=== PATIENT | male | born 1955 | race Caucasian/White ===

== ENCOUNTER → 2017-03-29 | Outpatient (REF) | payer MEDICARE, OTHER, SELFPAY | LOC: LAB 09:11 | PROVIDERS: Visit Provider Family Medicine | DX: E11.9 Type 2 diabetes mellitus without complications (principal) | CPT/HCPCS: 36415; 83036 ==

== ENCOUNTER → 2017-07-11 09:27 | Outpatient (CLI) | payer MEDICARE, OTHER, SELFPAY | PROVIDERS: PCP Family Medicine; Visit Provider Internal Medicine | DX: E11.621 Type 2 diabetes mellitus with foot ulcer (principal); L97.512 Non-pressure chronic ulcer of other part of right foot with fat layer exposed | CPT/HCPCS: 11042 ==

== ENCOUNTER → 2017-07-18 09:41 | Outpatient (CLI) | payer MEDICARE, OTHER, SELFPAY | PROVIDERS: PCP Family Medicine; Visit Provider Internal Medicine | DX: E11.621 Type 2 diabetes mellitus with foot ulcer (principal); L97.512 Non-pressure chronic ulcer of other part of right foot with fat layer exposed | CPT/HCPCS: 11042 ==

== ENCOUNTER → 2017-07-25 09:24 | Outpatient (CLI) | payer MEDICARE, OTHER, SELFPAY | PROVIDERS: PCP Family Medicine; Visit Provider Internal Medicine | DX: E11.621 Type 2 diabetes mellitus with foot ulcer (principal); L97.512 Non-pressure chronic ulcer of other part of right foot with fat layer exposed; L84 Corns and callosities | CPT/HCPCS: 11042 ==

== ENCOUNTER → 2017-07-28 09:22 | Outpatient (CLI) | payer MEDICARE, OTHER, SELFPAY | PROVIDERS: PCP Family Medicine; Visit Provider Internal Medicine | DX: E11.621 Type 2 diabetes mellitus with foot ulcer (principal); L97.512 Non-pressure chronic ulcer of other part of right foot with fat layer exposed; L84 Corns and callosities | CPT/HCPCS: 11042 ==

== ENCOUNTER → 2017-08-01 14:25 | Outpatient (CLI) | payer MEDICARE, OTHER, SELFPAY ==
--- NOTE | 2017-08-01 | OV.WND_ITS ---
Progress Note Details Patient Name: Josue Mesa Patient Number: [id number] PatientPatientDate: 08/01/2017 Clinician: Fay Moncada Clinician Cosigner: Digna Diallo Physician / Assistant Professor Of Life Sciences: Stephen Nice SUBJECTIVE Chief Complaint This information was obtained from the patient Diabetic ulcer to right plantar foot. Allergies Augmentin (Severity: Mild, Reaction: nausea) HPI This information was obtained from the patient 08/01/17. Seen by Dr. Nice. The patient does not report increased drainage associated with the chronic right plantar foot diabetic ulcer since his last visit and he's offloading appropriately as recommended. 07/28/17. Seen by Dr. Nice. The patient does not report increased drainage associated with the chronic right plantar foot diabetic ulcer since his last visit and he's offloading appropriately as recommended. We've increased his visits to twice weekly due to the very heavy callus formation that's contributing to the refractory nature of the ulcer. 07/25/17. Seen by Dr. Nice. The patient does not report increased drainage associated with the chronic right plantar foot diabetic ulcer since his last visit and he's offloading appropriately as recommended. Kerasal is not being applied to the periulcer callus and his visits have been decreased to once weekly over the past few weeks while the ulcer has been improving. 07/18/17. Seen by Dr. Nice. The patient does not report increased drainage associated with the chronic right plantar foot diabetic ulcer since his last visit and he's offloading appropriately as recommended. 07/11/17.Seen by Dr. Nice. The patient has been wearing his offloading shoe and using a knee scooter as recommended and does not report significant drainage associated with the chronic right plantar foot diabetic ulcer since his last visit. 07/04/17. Seen by Dr. Nice. The patient has been wearing his offloading shoe as recommended and does not report significant drainage associated with the chronic right plantar foot diabetic ulcer since his last visit. 06/30/17. Seen by Dr. Nice. The patient has been wearing his offloading shoe as recommended and does not report significant drainage associated with the chronic right plantar foot diabetic ulcer since his last visit. 06/27/2017. Seen by Dr. Nice. The patient has been wearing his offloading shoe as recommended and does not report significant drainage associated with the chronic right plantar foot diabetic ulcer since his last visit. His blood sugars are also mostly below 100 now and he's using his knee scooter as well to further optimize offloading. 06/23/2017. Seen by Dr. Nice. The patient does not report pain nor increased drainage associated with the chronic right plantar foot diabetic ulcer since his last visit. He is wearing his offloading shoe as recommended now and his blood sugar control has improved with some below 200. 06/20/2017. Some by Dr. Nice. The patient is not report increased drainage position with chronic right plantar foot diabetic ulcer since last visit. He is now clindamycin for the resistant Staphylococcus haemolyticus positive culture that was taken to the last visit. His blood sugars continued to be elevated and or over 300 earlier this morning despite having his Lantus dose increased recently. He is also wearing his diabetic shoes but not an offloading surgical shoe as I have been recommending. 06/16/17. Seen by Dr. Nice. The patient does not report increased drainage associated with chronic right plantar foot diabetic ulcers since his last visit. His recent wound culture grew a resistant coag negative staph organism. He also met with his primary care provider, Dr. rGeen, to increase his dosing of Lantus and plans to work with him on dietary measures to help gain better control of his elevated blood sugars. 06/13/17. Seen by Dr. Nice. The patient's blood sugars again are over 300 today and his appointment with his primary care provider to address this. He does not report any acute changes regarding the chronic right plantar foot diabetic ulcer and is using his knee scooter to help facilitate offloading as much as possible. 06/09/17. Seen by Dr. Nice. The patient does not report significant drainage associated with the chronic right plantar foot diabetic ulcer since his last visit. 06/06/17. Seen by Dr. Nice. The patient does not report significant drainage associated with the chronic right plantar foot diabetic ulcer since his last visit and he's lost another 7 lbs since increasing his dose of Lasix due to abnormal weight gain and significant bilateral lower extremity edema. 06/02/17. Seen by Dr. Nice. The patient does not report significant drainage associated with the chronic right plantar foot diabetic ulcer since his last visit. His increase his dose of Lasix and has lost 7 pounds over the past 3 days. This is been done due to the significant increase in leg swelling over the past 2 weeks. 05/30/17. Seen by Dr. Nice. The patient does not report increased drainage associated with chronic right plantar foot diabetic ulcer since his last visit however he does feel that the right foot and leg are swelling considerably over the past few days. We note a 4 pound weight gain since his last visit on Monday and he states is taking his diuretic as prescribed. 05/26/17. Seen by Dr. Nice. The patient does not report increased drainage associated with chronic right plantar foot diabetic ulcers since his last visit. His culture grew a somewhat resistant coag negative staph and he is not currently on antibiotics. 05/23/17. Seen by Dr. Nice. Staff reports some increased drainage on his dressings covering the chronic right plantar foot diabetic ulcer today. His blood sugar is again over 300 and he states he is eating rice and potatoes trying to cut back. He continues offload with his knee scooter as recommended and does not report pain or any other acute ulcer related issues today. 05/19/17. Seen by Dr. Nice. The patient does not report increased pain or drainage associated with chronic right plantar foot diabetic ulcer since his last visit. He is using his knee scooter as recommended and has had significant problems with heavy callus at the site due to a severe right first toe valgus deformity. He is now attending clinic twice weekly for debridement of the ulcer and complicating callous. 05/16/17. Seen by Dr. Nice. The patient does not report increased drainage or pain associated with chronic right plantar foot diabetic ulcer since his last visit. Of note, the patient's blood sugar as 271 today and his A1c was 9.8 in March. 05/12/17. Seen by Dr. Nice. The patient does not report increased pain or drainage associated with chronic right plantar foot diabetic ulcer since his last visit. He is using his knee scooter to help offload the site which is particularly important based on patient's morbid obesity coupled with his severe first MTPJ valgus deformity. 05/09/17. Seen by Dr. Nice. The patient does not report increased drainage or pain associated with the chronic right plantar foot diabetic ulcer since his last visit. He states his blood sugars continue to be above 200 consistently although are improving with compliance to a lower carbohydrate type diet. He was started on metformin about a month ago he complains of some intermittent upper extremity weakness since then and will be discussing this with his primary care provider. He is also awaiting his new diabetic shoes that are being adjusted to help accommodate for his severe right first toe valgus deformity. 05/02/17. Seen by Jean-Pierre Pinto PA-C. The patient reports stable drainage from his right 1st toe ulcer and blood sugars continue to be above goal. 04/25/17. Seen by Jean-Pierre Pinto PA-C. The patient reports his blood sugars have been above 150 this week. He does not report increased drainage from his right 1st toe diabetic ulcer. 04/18/17. Seen by Dr. Nice. The patient does not report increased drainage associated the chronic right first toe diabetic ulcers since his last visit. 04/11/17. Seen by Jean-Pierre Pinto PA-C. The patient reports he is developing more calloused areas on his feet and is concerned about new ulcers occurring. His chronic 1st toe diabetic ulcer has been stable. 04/04/17. Seen by Jean-Pierre Pinto PA-C. The patient reports he has not been able to get his blood sugars below 150. Drainage is reportedly decreased from his diabetic foot ulcer. 03/30/17. Seen by Jean-Pierre Pinto PA-C. The patient reports continued high blood sugars, all above 150. Drainage from his ulcer is not increased. 03/23/17. s Seen by Jean-Pierre Pinto PA-C. The patient reports blood sugars above 150 again this week. He is concerned that something must be going on with an infection as he believes his diet has not changed and thus his sugars should be lower. His wound has had stable drainage. 03/15/17. Seen by Jean-Pierre Pinto PA-C. The patient reports he has had some blood sugars above 150 this week. He reports no increase in drainage from his right 1st toe diabetic ulcer. 03/08/17. Seen by Dr. Nice. The patient was discharged from the hospital recently following treatment for cellulitis associated with the chronic right first toe diabetic ulcer. He grew MRSA from the wound culture and was treated with IV vancomycin and is now on Bactrim. He does not report pain nor significant drainage associated with the ulcer nor side effects from antibiotics. 02/23/17. Seen by Dr. Nice. The patient does not report increased drainage associated the chronic right first toe diabetic ulcers since his last visit. The patient also states that he is more active over the holidays and was unable to use his knee scooter at times while walking outside due to safety concerns. 02/08/17. Seen by Dr. Nice. The patient does not report increased drainage associated the chronic right first toe diabetic ulcers since his last visit. He states he is using his offloading shoe when at home and a knee scooter went out. 02/01/17. Seen by Dr. Nice. The patient does not report increasing pain or drainage associated with chronic right first toe diabetic ulcer since his last visit. 01/25/17. Seen by Dr. Nice. The patient does not report increasing pain or drainage associated with chronic right first toe diabetic ulcer since his last visit. 01/18/17. Seen by Dr. Nice. The patient does not report increasing pain or drainage associated with chronic right first toe diabetic ulcer since his last visit. Of note, the patient's blood sugar is over 260 again today and he admits that it's been significantly elevated for a number of weeks. He has an appointment with his primary care provider to discuss this next week. 01/11/17. Seen by Dr. Nice. The patient does not report increasing pain or drainage associated with chronic right first toe diabetic ulcer since his last visit. He states his blood sugars have been running high recently and he is going to follow-up with his primary care provider in the near future to address this. 01/04/17. Seen by Dr. Nice. The patient does not report increased drainage associated with chronic right first foot diabetic ulcers since his last visit. He's also been applying Kersal to the periulcer as recommended. 12/28/16. Seen by Dr. Nice. The patient does not report increased drainage associated with chronic right first foot diabetic ulcers since his last visit. 12/22/16. Seen by Dr. Nice. The patient does not report increased drainage associated with chronic right first foot diabetic ulcers since his last visit. He's not been applying Kersal to the periulcer callus and does not appear to be using his knee scooter at all times to offload the ulcer. 12/15/16. Seen by Jean-Pierre Pinto PA-C. The patient reports he continues to have blood sugars above 150 this week. He recently saw his PCP, they did not alter his diabetic care plan. His visit was a follow up for an ER visit for chest pain which was negative for ME and was thought to be epigastric in origin. His diabetic ulcer of the right foot has not had increased drainage. 12/06/16. Seen by Jean-Pierre Pinto PA-C. The patient reports that he has found his knee scooter and plans to start using it today. He also reports most of his blood sugars have been above 150. Drainage from his ulcer has been stable. 11/25/16. Seen by Dr. Nice. The patient does not report increased drainage associated with chronic right first foot diabetic ulcers since his last visit. He is now on antibiotics for wound infection and does not report adverse side effects. Of note, he is not yet using a knee scooter nor offloading shoe as we recommended last week. 11/18/16. Seen by Dr. Nice. The patient returns to our clinic and presents with recurrence of a right first MTPJ plantar diabetic ulcer. He states it started a couple weeks ago when he was attempting to remove overlying callus at home. He does not report significant drainage or pain associated with the ulcer and is not currently on antibiotics. He also states his recent A1c was 7.8. His blood sugar in clinic today is 250. 01/11/16 Seen by Jean-Pierre Pinto PA-C. The patient reports no drainage from his chronic right 1st MTPJ joint since his last dressing change. 01/04/16 Seen by Jean-Pierre Pinto PA-C. The patient reports minimal drainage from his chronic right 1st MTPJ ulcer. He has recently seen his PCP and his A1c was 7.7. His lower extremity edema, abnormal weight gain and kidney failure are stable with his diuretics recently being adjusted. 12/28/15. Seen by Dr. Nice. The patient does not report significant drainage associated with the chronic right 1st MTPJ diabetic ulcer since his last visit however he does complain of increasing shortness of breath, fatigue, and an 18lb weight gain over the past week despite taking his diuretics as recommended. He does not report chest pain or cough and his blood sugars remain relatively well controlled with most below 150. 12/16/15. Seen by Dr. Nice. The patient does not report significant drainage associated with the chronic right 1st MTPJ diabetic ulcer since his last visit. He's applying kerasal to the surrounding callus as recommended and offloading nearly at all times using his knee scooter. 12/07/15 Seen by Jean-Pierre Pinto PA-C. The patient reports compliance with his new offloading brace and shoe and has seen minimal drainage from his diabetic foot ulcer since his last visit. 11/30/15. Seen by Dr. Nice. The patient does not report significant drainage associated with the chronic right 1st MTPJ diabetic ulcer since his last visit and he's wearing a combined AFO / diabetic shoe system that he feels may be better offloading the ulcer. 11/23/15 Seen by Jean-Pierre Pinto PA-C. The patient reports that he is wearing his new diabetic shoes and inserts. He is continuing physical therapy for gait training and reports continued difficulty with stairs and occasional bouts of dizziness. He reports stable drainage from his chronic right foot diabetic ulcer. 11/16/15 Seen by Jean-Pierre Pinto PA-C. The patient reports stable drainage from his right foot diabetic ulcer. He also reports that his diabetic shoes and inserts are quite old and worn out. He is ambulating with is 4 wheeled walker and is working with PT for gait training. 11/09/15 Seen by Jean-Pierre Pinto PA-C. The patient reports that he is still using a 4 wheeled walker instead of a 4 footed walker. PT is working with him to improve his gait and balance. Drainage from his right foot ulcer has been stable. 11/02/15 Seen by Jean-Pierre Pinto PA-C. The patient reports no increase in drainage from his chronic diabetic foot ulcer. He has had multiple blood sugars above 150 this week. 10/29/15. Seen by Dr. Nice. The patient was recently discharged from [facility] following treatment of sepsis thought to possibly be related to his chronic right 1st MTPJ diabetic ulcer that grew Enterococcus just prior to his admission. He now feels generally weak , has lost 18 lbs following diuresis, and is residing at home where he's minimizing his weight bearing on the right foot. He does not report significant drainage from the ulcer nor pain and states his blood sugars remain mostly around 150. He also continues on levofloxacin and does not report adverse side effects. 10/14/15. Seen by Dr. Nice. The patient report persistent bloody drainage from the chronic right 1st MTPJ diabetic ulcer and he feels the callus has increased significantly since it was last debrided 2 week ago. He does not report fevers or feeling unwell and states his blood sugars are well controlled with most below 150. He's using his AFO when walking nearly at all times to facilitate offloading the significant right 1st MTPJ valgus deformity. 09/24/15 Seen by Jean-Pierre Pinto PA-C. The patient reports that he is no ran out of lasix due to a mix up at the pharmacy and unavailability of his strength/dose of tablets. He continues trying to offload his ulcer with his wheeled walker and notes stable ulcer drainage. 09/17/15. Seen by Dr. Nice. The patient continues to report some bloody drainage from the chronic right 1st MTPJ diabetic ulcer and he's started reducing his activity and continues to use his knee scooter at home to offload the foot. 09/10/15. Seen by Dr. Nice. The patient states he was more active over the past week and notices increased bloody drainage associated with chronic right first MTPJ diabetic foot ulcer. He continues to wear his AFO and states his blood sugars are mostly below 150. 09/03/15. Seen by Dr. Nice. The patient does not report significant drainage associated with the chronic right first MTPJ diabetic ulcer over the past week. He does feel that the callus smaller than on previous visits and is wearing his AFO at all times. Of note, he 's now in doxycycline to treat the recent coag negative Staph cultured from the ulcer at his last visit. 08/27/[address] Nice. The patient reports increase bloody drainage associated with the chronic right foot 1st MTPJ diabetic ulcer and he feels his activity has increased due to physical therapy and increased mobility over the past week. He does not report pain at the ulcer site, fevers, or feeling unwell in general. 08/20/[address] Nice. The patient does not report significant drainage associated with the chronic right foot 1st MTPJ diabetic ulcer over the past week and he's using a knee scooter as much as possible when mobilizing to offload the foot. His blood sugars also remain relatively well controlled with most below 150. 08/13/[address] Nice. The patient does not report significant drainage associated with the chronic right foot diabetic ulcer over the past week and he's offloading using a knee scooter as recommended. His blood sugars remain relatively well controlled with most below 150. 08/06/[address] Nice. The patient reports recurrence of some drainage from the chronic right foot diabetic ulcer over the past few days and states he's been more active with physical therapy. His blood sugars remain well controlled with most below 150 and he's wearing his AFO when away from the house and using a knee scooter most of the time while at home to facilitate offloading. He's also applying Kerasal to the callus in the periwound area as recommended. 07/23/[address] Nice. The patient does not report drainage from the chronic right 1st MTPJ diabetic ulcer over the past week and he's using his new AFO and knee scooter to offload the foot. 07/16/[address] Nice. The patient does not report pain or drainage from the chronic right 1st MTPJ diabetic ulcer and he's wearing his newer AFO while offloading with a knee scooter most of the time. 07/09/[address] Nice. The patient does not report drainage or pain associated with his chronic right foot 1st MTPJ diabetic ulcer and he's been offloading by using a knee scooter when mobilizing. His central office mechanic is present today as well to discuss possible adjustments to his AFO with the goal of reducing callus formation that's in part caused by his significant right 1st toe valgus deformity. He also states his blood sugars remain well controlled below 150 consistently. 07/03/[address] Nice. The patient does not report significant drainage from the chronic right foot diabetic ulcer and he's offloading by using his knee scooter. His blood sugars also remain relatively well controlled around 150 consistently. 06/26/[address] Nice. The patient report some continued bloody drainage from the chronic right 1st MTPJ diabetic ulcer however he does not report associated pain , fevers or feeling unwell. His blood sugars remain consistently below 150 and he's using his walker and knee scooter for offloading as recommended. He's also been actively working with his central office mechanic in hopes of better offloading the ulcer and address his significant callus formation and left 1st MTPJ valgus deformity. 06/19/[address] Nice. The patient does not report pain associated with his chronic right 1st MTPJ diabetic ulcer however he states some bloody drainage persists on the dressings. He does not report fevers or feeling unwell and states his blood sugars are well controlled below 150 consistently and he's using a knee scooter and walker to offload the ulcer when mobilizing. He also does not report pain or drainage associated with the left 2nd toe wound. 06/11/[address] Nice. The patient was recently discharged from [facility] following a fall at home that resulted in a broken rib. Regarding his chronic right 1st MTPJ diabetic ulcer he does not report significant drainage and has been offloading through bed rest and using a knee scooter while at home. His blood sugars also remain well controlled with most below 150. He also reports a new wound on the dorsum of the left 2nd toe that he believes occurred during his fall. He does not report associated pain or significant drainage. 05/28/[address] Nice. The patient reports some increased bloody drainage from the chronic right 1st MTPJ diabetic foot ulcer over the weekend associated with a new 'soft' area along the distal margin. He's been more active the past the past few days but states he's using his knee scooter to offload at all times. His blood sugars also remain well controlled with most around 120 and he's no longer on antibiotics. He also continues to wear his old AFO but states there was a recent adjustment of a cut out lined with 'soft' plastic in the area of the ulcer. 05/21/[address] Nice. The patient report less drainage from the chronic right foot 1st MTPJ diabetic ulcer over the past week. He's completed his course of doxycycline and he continues on fluconazole for the recent Alma Delia positive wound culture. He's also reverted back to using his previous AFO while his newer one is adjusted to try to address the recent significant increase in callus formation that's occurred. His blood sugars also remain well controlled under 150 consistently and his recent episodes of hypoglycemia has resolved with an adjustment of his insulin regimen. 05/14/[address] Nice. The patient reports less drainage on the dressings covering the chronic right 1st MTPJ diabetic ulcer since starting doxycycline for a coag negative Staph wound culture along with fluconazole for the alma delia positive culture. His blood sugars remain well controlled below 120 and his insulin has been decreased due to the recent episodes of hypoglycemia. His diuretic has also been decreased as he's lost considerable water weight over the past month. 05/07/[address] Nice. The patient continues to report modest bloody drainage on the dressing covering the chronic right 1st MTPJ diabetic ulcer and he continues to limit his walking but has not been using a knee scooter or walker around the house to facilitate offloading. His blood sugars remain well controlled mostly below 150. 04/30/[address] Nice. The patient continues to report bloody drainage on his right foot diabetic ulcer dressing and he's feeling a bit unwell in general without reporting specific symptoms. He also continues to have intermittent low blood sugars in the 50-60' s and has not discussed this issue with his PCP recently. He's wearing his AFO daily but admits to having difficulty using his walker at all times due to limited space in his new apartment. 04/27/15 Seen by Jean-Pierre Pinto PA-C. The patient reports nonspecific malaise for the past few days. Last night, he reports feeling to tired, weak and shaky to watch TV and went to bed very early. His malaise has been increasing over the past 1-2 weeks and he has frequently been monitoring his blood sugar. His blood sugars are lower than normal lately but never below 100. He has been reducing his insulin dosing in the past 2 weeks to compensate for the lower numbers. He continues to loose weight while continuing to take Lasix and metolazone. 04/23/[address] Nice. The staff and patient continue to report at least moderate serosanquinous drainage from the chronic right 1st MTPJ diabetic ulcer. His blood sugars have been well controlled over the past week with most below 150. He does report being more active than usual while he's been moving to his new home and he also states he continues to loose weight following a recent increase in his diruetics. His wound culture from the last visit reported heavy Diptheroids and he's not currently on antibiotics. 04/20/15 Seen by Jean-Pierre Pinto PA-C. The patient reports that he has moved house and has been on his feet much more so as a consequence. He reports increased drainage from his right plantar foot diabetic ulcer. In addition he believes he struck it against a hard surface when moving. He has had no significant pain with weightbearing but is insensate in this area. 04/15/[address] Nice. The patient reports continued weight loss, and decreasing leg swelling, since starting metolazone totaling about 20 lbs. He also feels the chronic right 1st MTPJ diabetic ulcer has been draining increasing amounts of sanguinous fluid. His blood sugars remain well controlled with most below 120 and he does not report fever or feeling unwell. 03/25/[address] Nice. The patient states he walked a considerable amount yesterday and now reports some bleeding from the chronic right 1st MTPJ diabetic foot ulcer. He also continues to report increased weight gain and now some shortness of breath when walking short distances. He has a low grade fever today but does not report a cough or feeling unwell otherwise. 03/11/2015 Seen by Jean-Pierre Pinto PA-C. The patient's weight has increased 10 lbs in the past week. He reports increased shortness of breath with exertion. He denies chest pain, jaw, neck, shoulder pain or shortness of breath at rest. He has been compliant with his diuretics. His ulcer drainage has been stable. 03/04/2015 Seen by Jean-Pierre Pinto PA-C. The patient is wearing his newly adjusted AFO and reports an increase in walking since last visit. He was unaware that his temperature was elevated and reports no URI symptoms such as cough or sore throat. 02/24/2015 Seen by Jean-Pierre Pinto PA-C. The patient believes his ulcer has now been draining more despite trying to offload the ulcer. 02/11/[address] Nice. The patient reports less drainage from the chronic right 1st toe diabetic ulcer and he's still waiting for approval for his new AFO. 02/04/[address] Nice. The patient feels the drainage from the right 1st MTPJ ulcer has decreased since last week and he's scheduled to see Dr. Solitario tomorrow to review his foot deformity and recurrent callus formation at the site of the ulcer. 01/30/[address] Nice. The patient returns to clinic and reports recurrence of the recently healed right 1st MTPJ diabetic foot ulcer with new moderate drainage and significant callus formation. He's not yet re-established with Dr. Solitario, podiatry, due to insurance issues and is awaiting approval for an adjustment for his AFO. His blood sugars remain controlled below 150 mostly and he does not report pain in the foot or fevers. 01/12/[address] Nice. The patient does not report drainage from the right 1st toe MTPJ ulcer and he's scheduled to have his new AFO fitted this week. 01/05/[address] Nice. The patient does not report drainage associated with the right 1st MTPJ diabetic foot ulcer however he states he has had some intermittent, very brief 'shooting' pain at the site of the ulcer the past few days. His blood sugars also remain between 120 and 150 mostly. 12/29/[address] Nice. The patient does not report drainage from the chronic right 1st MTPJ diabetic foot ulcer and he offloads using a walker and surgical shoe at all times except for when he wears a slipper around his small apartment. 12/22/[address] Nice. The patient does not report significant drainage from the right 1st MTPJ diabetic foot ulcer and he states his blood sugars are still in the 150 range with some over 180. 12/10/[address] Nice. The patient does not report significant drainage from the right 1st MTPJ diabetic foot ulcer. 12/04/[address] Nice. The patient does not report any drainage from the chronic right 1st MTPJ diabetic foot ulcer and he's still waiting for insurance approval for a custom, articulating AFO. His blood sugars also remain relatively well controlled below 150 consistently. He also continues to apply Kerasal to the associated callus daily. 11/20/[address] Nice. The patient's been feeling unwell the past week and feels he may have lost as much as 10 lbs due to poor oral intake. Otherwise he does not report any new problems regarding his right 1st MTPJ plantar diabetic ulcer. 11/07/[address] Nice. The patient reports only scant drainage from the right plantar diabetic foot ulcer. He's been offloading as recommending with a walker and is awaiting a approval for an articulating AFO. His blood sugars remain mostly well controlled below 150. 10/31/14 Seen by Jean-Pierre Pinto PA-C. The patient feels he has reached another plateau with regard to his wound healing. His right plantar diabetic ulcer continues to drain and has not improved recently. He is wearing his brace and reports compliance with offloading. 10/21/[address] Nice. The patient reports only scant drainage from his right 1st plantar surface MTPJ diabetic foot ulcer. He continues to offload with a frame walker and his blood sugars are moderately well controlled with most below 150. 10/14/[address] Nice. The patient does not report significant drainage from the right 1st plantar MTPJ ulcer. Of note, when discussing his blood sugars he mentions he's on both 70/30 insulin as well as Lantus and he frequently has blood sugars in the 150-200 range. 10/07/[address] Nice. The patient reports some modest drainage from the right 1st MTPJ plantar ulcer but no pain, erythema, or swelling. His blood sugars are mostly below 150 and he offloads with his AFO. 09/30/14 Seen by Jean-Pierre Pinto PA-C. The patient reports continued compliance with his AFO and he is trying to offload. He is scheduled now with PT for gait training and knee strengthening. He reports his knee is still sore at times and he feels unstable at times when using his offloading devices and AFO. 09/23/[address] Nice. The patient reports only minimal drainage from the right plantar 1st MTPJ ulcer. 09/16/14 Seen by Jean-Pierre Pinto PA-C. The patient continues to use his AFO, offloading shoe, knee scooter and frame walker to offload his wound. 09/09/14 Seen by Jean-Pierre Pinto PA-C. The patient has been wearing his AFO and offloading shoe together, with the added padding as designed by Sahra BOYD of [facility]. He reports that he feels unsteady and that his knee has felt strained and he discontinued using the brace as he is concerned that he has, or will, re-injure his right knee. He also is having difficulty using his knee scooter with the brace. One year ago , while attempting to offload his foot he did injure his knee and required physical therapy to recover. 08/19/14 Seen by Jean-Pierre Pinto PA-C. The patient's weight is down 10 lbs from his previous visit. His twice daily naproxen has been discontinued by his PCP in an effort to reduce his lower extremity edema. 08/15/14 Seen by Jean-Pierre Pinto PA-C. The patient continues to have weight fluctuations and large amounts of weight gain in short periods of time despite increased diuretic usage. 08/04/14 Seen by Jean-Pierre Pinto PA-C. The patient has been taking his Levaquin and again reports to the clinic with a low grade fever. He reports nearly daily application of Kerasal and his weight and edema have been stable on a higher dose of diuretics. Blood sugars remain stable on his current diabetic medications. 07/21/14 Seen by Jean-Pierre Pinto PA-C. The patient does not report fever, chills or URI symptoms. His wound drainage has been stable. 07/16/[address] Nice. The patient reports persistent but minimal drainage from the right foot plantar ulcer and continues to offload with a walker at all times. His blood sugar are mostly below 150 with a few around 170 the past few days. 07/01/14 The patient reports that he has gained 8lbs in 8 days. Denies SOB. Does not report fever or chills. 06/23/[address] Nice. The patient continues to offload with a knee scooter and walker at all times. He does not report significant drainage from the right plantar foot ulcer. 06/20/[address] Nice. The patient has been offloading his right foot ulcer with a walker and reports less drainage over the past 2 days. He's now off of antibiotics and his blood sugars remain well controlled below 150. 06/11/[address] Nice. The patient reports persistent drainage from the right foot plantar 1st MTPJ ulcer and he completed his course of doxycycline which was started for a MRSA positive culture from the ulcer site. His blood sugars have also been a bit elevated above 150 recently. He does not report fever or chills however. 06/04/14 The patient reports difficulty in offloading his wound due to inability to use crutches due to poor balance. He find the wheelchair difficult to use and his knee scooter is not rated for his weight. He denies fever, chills or URI symptoms. 05/28/14 The patient's been attempting to offload with a knee scooter but is concerned it may not be appropriate or stable based on his weight. He does not report increased drainage from he right plantar 1st MTPJ ulcer and his blood sugars remain well controlled below 120. 05/21/14 The patient reports only minimal sanguinous drainage from his right foot plantar ulcer and has been offloading it by minimizing his walking. He's also completed a course of doxycycline that was given for a coag negative staph wound culture from the ulcer. He states his blood sugars are consistently below 120 and does not report hypoglycemia. 05/13/14 The patient reports minimal drainage from his right foot plantar ulcer. His recent wound culture from the site returned coag negative Staph and Diptheroids. 05/02/14 The patient reports less drainage from the right plantar foot ulcer and continues to off loading by minimizing walking and wearing a post-op shoe. 04/29/14 The patient continues to wear his surgical boot with the cutout for his right foot plantar diabetic ulcer. He reports no increase in drainage. 04/25/14 The patient reports minimal bloody drainage on the right foot plantar ulcer dressing that was placed yesterday. He does not report any drainage from the previously healed lateral foot ulcer. His edema in the right leg persists despite wearing compression stockings daily and his blood sugars remain well controlled below 120 with his last A1c approx 2 months ago at 7.4. 04/22/14 The patient reports no increase in drainage from his wounds today. He has been faithfully wearing his orthopedic boot with the cut-out area around his 5th MT ulcer. 04/15/14 The patient reports no increase in drainage from his wounds today. He reminds me that a TCC was the cause of his 5th MT ulcer and he is not excited about trying a TCC again. He is interested in HBOT if it will be beneficial to his wounds. 04/09/14 The patient reports increased drainage from his right 5th MT ulcer and feels his surgical boot he's been wearing for off loading may have caused pressure to the area. His blood sugars have improved and he also reports a 5 lb weight loss after doubling his dose of lasix over the past week. Of note, he did not liaise with his PCP prior to doing this. 04/04/14 The patient states that he was walking a bit more than usual yesterday but notes some sanguinous drainage on his plantar 1st MTPJ dressing for the past few days. He's also put on 7 lbs in the past week and feels his legs are more swollen than usual. He does not report chest pain, shortness of breath, or orthopnea. His blood sugars are also up a bit around 180. He's compliant with both his diabetes regimen and his diuretic therapy. 03/28/14 The patient reports no increased drainage or other complications from his right foot diabetic ulcers. 03/21/14 The patient reports minimal drainage from his right foot diabetic ulcers. He continues to minimally weight bear using a surgical boot and a walker. 03/14/14 The patient does not report increased drainage or other new issues regarding his right 5th MTPJ and right 1st MTPJ plantar ulcers. His blood sugars remain more elevated than usual with some between 150 and 180. 03/07/14 The patient reports no fever or increased right foot wound pain or drainage. 02/28/14 The patient reports that his blood sugar this morning is a bit elevated around 160 but has mostly been below 140 over the past few days. He's been off antibiotics for 3 days now and reports modest drainage from the right 5th MT ulcer while dressing changes are being done every two days. 02/24/14 The patient does not report any new issues regarding his right foot ulcers including increased drainage, fever, or chills. He completed his course of doxycycline yesterday. 02/17/14 The patient reports moderate yellow drainage from the right foot 5th MTPJ ulcer. He's completed a course of doxycycline and does not report fever or chills but states his blood sugars remain higher then normal in the 170's. His wound culture was positive for Enterobacter and his ESR was elevated at 41 and CRP at 2.7. 02/06/14 The patient does not report increased drainage from the right 5th MTPJ ulcer nor does he report fever or pain. He continues to off load with a walker and minimizing walking. He continues on doxycycline which was started empirically at his last visit and his culture has since grown Enterobacter which should be susceptible to doxy based on sensitivities. His xray of the foot was not concerning for osteomyelitis however his ESR and CRP are both moderately elevated. He also feels his legs are more swollen than usual and he continues to take his lasix as scheduled. 02/03/14 The patient does not report fever, chills, or pain in the right foot however when the TCC was removed today he's noted to have a sizable increase in the diameter and depth of what was a small 5th MTPJ ulcer. 01/14/14 The patient reports no new problems regarding is right diabetic foot ulcer. 12/31/13 The patient reports minimal serous drainage from his right 5th MTPJ ulcer and states he continues to off load his foot as much as possible. He does not report pain or drainage from the site of his right 1st MTPJ ulcer. 12/19/13 The patient tolerated with TCC without any complaints but there appears to be a small area of erythema over the right 5th MTPJ. He notes his blood sugars are typically below 120 and his A1c last week was 7.4. 12/13/13 The patient has no complaints regarding his TCC nor his plantar ulcer. 12/11/13 The patient returns for placement of a TCC today. He does not report any new problems regarding is plantar ulcer. 12/03/13 The patient states his plantar ulcer drainage is stable and he's continued to not use a cut-out foam doughnut over the ulcer. 11/26/13 The patient has kept the foam dressing in place from the last visit and has not used a cut-out foam dressing which we felt caused some deterioration of the foot ulcer. He has some mild drainage but no pain. 11/22/13 The patient returns for review of his plantar ulcer and callus that seems to be deteriorating despite an adjustment to his boot and off loading measures. The patient reports his callus accumulation is in spite of daily kerasal applications. Patient reports a new small wound on the left second toe. Josue states that it might be related to the brace. Patient had brace modified to help off load. 11/06/13 Josue states he was able to schedule with the prosthetic doctor tomorrow at noon. He reports no new problems or concerns. He also says that he is done with physical therapy since yesterday as insurance will not cover it any longer. 10/31/13 The patient reports he received his dressing supplies. Dressings changes are going well and no new problems are reported. He saw his waxer tender, Dr. Solitario, on Monday for a check up and had and x-ray of the foot. 10/24/13 Josue reports he has been staying off of his feet as much as possible. He has been changing the dressing as ordered and states there has been just a small amount of drainage. He recently ran out of his dressings and will need more ordered or the balance sent home with him. 10/17/13 Patient states he has no new problems or concerns. He did have a small increase in drainage the other day but he had walked more than normal the day before. 10/09/13 Josue states he has no new issues. Dressing changes are going well. 10/02/13 Josue states there have been no new issues with dressing changes. They have been changed once since his last visit. No complaints of pain with the wound. 09/20/13 Josue was discharged from wound care September 05. States that he has been using pumice stone on callus area where had previous wound and may have been too aggressive. Also has been on feet more and having increase in lower extremity edema. Continues to wear the tetragrip F he had received in the clinic 6 hours per day but has not ordered any yet. 09/27/13 Patient states that there have been no issues with using the tetra user experience researcher. Asking about getting compression stockings from drug store for continued use. 09/05/13 Patient states he has set up physical therapy for the problems with his knee. He starts these treatments on 09/11. There has been no new issues with his wound and he changes the dressings about every two days. He reports little to no drainage. 08/06/13 States no new problems with wound area. Been using kerosol daily. 08/19/13 Patient states he twisted his knee a week ago, and it is effecting his walk slightly. He also complains of more edema in his legs, and has an appointment with his PCP tomorrow regarding the issue. No new problems or concerns with his wound. No new problems or concerns. Patient states he changed the dressing a few times this last week. Saw Dr. Solitario this past week for check up with no change o his management. 07/26/13 The patient has had new brace for one week and so far it is working out well. No other complaints at this time. 07/18/13 Patient got brace for foot and leg yesterday. No problems or concerns. 07/11/13 No problems or concerns. Changed dressing twice since last visit 07/04/13- Pt went to his PCP and his lasix were increased from 20mg to 40mg. He states his edema has decreased since then. Pt's diabetic foot brace (decreases lateral movement to reduce pressure on the sides of his feet) will arrive in about another week. 06/20/13- Pt reports increased edema in his feet for the last week, he has been walking more, but also sitting with his feet down more. With the increase in exercise he states his back has been hurting. On Sunday 06/18 pt went to [facility],and had his ankle brace fitting. 05/31/[address] Green this am. Changed dressing twice this week. Saw central office mechanic (in [place]) on Monday. Considering ankle brace 05/24/13 states started walking program at 5 minutes at a time and taking the bus to clinic apt. 11/08/12 Pt is changing dressing every two days. Is concerned about the edema to the left leg that had the cellulitis. States it is warm. 11/15/12 patient has been having more nerve pain. He has been changing his dressing either every day or every other day. 11/22/12- Patient continues to change dressing about every day. No problems noted. Patient changing dressing about q o day. Thinks wound is less deep. 12/07/12 Pt only changed dressing twice since last visit. No concerns or problems. 12/18/12 When cleaning wound was able to aspirate large purlent sero-sang fluid from site. Pt states he feels it was doing better. 12/24/12 Decreased drainage and pt states he feels the wound is doing well. 12/31 Pt states he has had decreased draiange from wound. Pt denies pain. 01/07/13Pt states the kerasol didn't really do much, but admits he was only applying it every other day and is not sure what his expectations should be. He believes he may have bumped a toe on the left foot and has been concerned about some bruising there but admits it is getting better. Still does not have his new shoes and says he is exploring other options like disability. 01/21/13 feeling well since last visit. feels he may have bumped third toe so wants it to be seen. Level 2- 3 neuropathic pain in right foot 02/27/12 Patient changing bandaid on foot and applying kerasol every three days. Patient got new PCP and saw him yesterday. Patient states things are going well with the wound. 03/12/[address] Green for edema and will see him tomorrow for follow up.03/25/13 states has drainage from bottom of foot. concerned about new wounds Sates he changes dressing every 2 days. Changed this AM as it came off. Using Ca alginate and foam. States no drainage last night 04/19/13 changes dressing every 2-3 days. no problem. Has appt with Dr. Solitario 04/30/13 and new shoes have arrived. To be fitted next week 04/26/13 Is wearing new shoes and states they are working well.Changed dressing twice this week 05.03.[address] Solitario last week. will see again in [address] Green started antibiotic for sinus infection States sinuses not a lot better. Has started Lakshmi D, helping some. States wound about same. Changing dressing 2 x this week as dressing came off. States added collagen one time. Past Medical History This information was obtained from the patient Patient has a medical history of: Left lower extremity cellulitis - 10/15/2012 Diabetic foot ulcer - 09/27/2013 (Hernandez grade 2; right plantar surface; Hernandez grade III (Enterobacter positive wound culture 02/03/14), lateral right 5th MTPJ originally dx 12/24/13; MRSA positive culture 06/04/14 ) Chronic venous hypertension Type II Diabetes Hypertension Morbid Obesity Kidney Stones Hx MRSA Diabetic neuropathy Hallux valgus (right 1st toe) UTI (hospital admit) Cellulitis of legs (June and September 2012- hospital admit) Cataract surgery (10/13/15) Diabetic Neuropathy Complaints and Symptoms This information was obtained from the patient Patient complains of: General Notes: I have reviewed and concur with the Review of Systems and Past Family Social History documents completed by the clinician, I have reviewed and concur with the Wound Assessment document completed by the clinician Cardiovascular (Central/Peripheral): Lower extremity (leg) swelling Integumentary (Hair/Skin/Nails): Open Sore Musculoskeletal: Deformities, Muscle Weakness Neurological: Abnormal Gait, Loss of Protective Sensation Prior Wound History: Bleeding, Drainage Patient denies complaints or symptoms related to: Cardiovascular (Central): Irregular heart beat Cardiovascular (Central/Peripheral): Lower extremity (leg) resting pain Constitutional Symptoms (General Health): Chills, Fever, Marked Weight Change Ear/Nose/Mouth/Throat: Hearing Loss / Aid Gastrointestinal (GI): Nausea / Vomiting Hematologic/Lymphatic: Bleeding / Clotting Disorders, Bleeding Tendency Musculoskeletal: Assistive Devices Prior Wound History: Erythema, Malodor, Pain Psychiatric: Memory Loss Respiratory: Oxygen Use, Shortness of Breath OBJECTIVE Constitutional BP elevated; Afebrile; Alert and in no distress. Well developed. Alert. Clean appearing.. Height/Length: 71 in (180.34 cm), Weight: 363.8 lbs (165.36 kgs), BMI: 50.7, Temperature: 98.3 ?F (36.83 ?C), Pulse: 55 bpm, Respiratory Rate: 18 breaths/min, Blood Pressure: 151/60 mmHg, Capillary Blood Glucose: 217 mg/dl, Pulse Oximetry: 100 %. Vital Signs Notes: Glucose per patient. Respiratory: No respiratory distress. Even respirations and without use of accessory muscles.. Cardiovascular: 1+ right lower extremity edema. Gastrointestinal (GI): Obese. Nondistended.. Integumentary (Hair, Skin) No periwound erythema, warmth, or significant drainage. No periwound rashes appreciated or noted otherwise.. Refer to appropriate clinician wound documentation for this visit; right foot ulcer extends to subcut with base partially covered with pink granulation, remainder fibrin and slough. Moderate amount of callus in the periulcer area. Wound #6 Right, Plantar Foot is a chronic Hernandez Grade 2 Diabetic Ulcer and has received a status of Not Healed. Subsequent wound encounter measurements are 0.9cm length x 0.4cm width x 0.3cm depth, with an area of 0.36 sq cm and a volume of 0.108 cubic cm. No tunneling has been noted. No sinus tract has been noted. No undermining has been noted. There is a moderate amount of sero-sanguineous drainage noted which has no odor. The patient reports a wound pain of level 0/10. The wound margin is callus. Wound bed has Yes epithelialization, No eschar, No slough, Yes pale kat, pink, firm granulation. The periwound skin moisture is normal. The periwound skin color is normal. The periwound skin exhibited: Callus. The periwound skin did not exhibit: Brawny Induration, Edema, Excoriation, Induration, Crepitus, Fluctuance, Friable, Rash. The temperature of the periwound skin is WNL. Periwound skin does not exhibit signs or symptoms of infection. Local Pulse is Palpable. Neurological: Cranial nerves grossly intact with symmetric function normal by informal observation.. 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 A skin/ subcutaneous tissue level surgical debridement with a total area debrided of 0.5 sq cm was performed by Stephen Nice MD. Subcutaneous was removed along with devitalized tissue: callus. The following instrument(s) were used: curette. Pain control was achieved using EMLA lidocaine /prilocaine 2.5%/2.5%. A time out was conducted prior to the start of the procedure. A moderate amount of bleeding was controlled with silver nitrate. The procedure was tolerated well with a pain level of 0 throughout and a pain level of 0 following the procedure. Post Debridement Measurements: 1cm length x 0.5cm width x 0.3cm depth; with an area of 0.5 sq cm and a volume of 0.15 cubic cm; Additional Information Muscle fascia or bone removed and sent to pathology?: No PLAN Wound Orders: Wound #6 Right, Plantar Foot Anesthetic Topical Xylocaine to wound bed. - In clinic only. Cleanser Cleanse Wound: - Normal saline and gauze. May Shower. - Do not get wound wet with tap water. Use cast protector when showering. Topical Treatments Antibiotic/Antimicrobial Ointment/Cream. - Iodosorb. Barrier ointment to protect surround skin. - Kerasal to callus. Dressings Primary dressing: - Foam. Cover and secure with: - Hypafix tape. Change Dressing: - Every other day. Additional Orders: Off-Loading Keep weight off: - Right foot as much as possible. Use Knee scooter when able. Use/Wear when Walking: - Offloading shoe. Compression/Edema Control Elevation of leg(s) above the level of the heart when sitting. Avoid prolonged standing in one place. - Please avoid standing or walking for long periods of time. Knee-high gradient compression stockings. - Tetragrip F stockings to both legs. On in the morning and off at night. Follow-Up Appointments Return Appointment: - - Tuesdays and Fridays for callus removal. Other information: If you develop fever, chills, increased pain, drainage, redness or swelling please call our office. If after hours, respond to the ER. Should you experience any significant changes in your wound(s) or have any questions regarding your home care instructions please contact the wound center @ [phone]. If after hours, contact your primary care physician or go to the hospital emergency room. Scribing Attestation I attest, as the nurse, that I scribed these orders for the physician. I've reviewed the clinician's documentation and agree with the evaluation and plan as written. In addition, the patient's ulcer demonstrates evidence of non-viable devitalized tissue which will continue to benefit from sharp debridement to help promote granulation and expedite healing. Electronic Signature(s) Signed By: Date: Stephen Nice MD 08/01/2017 14:23:23 Entered By: Stephen Nice on 08/01/2017 12:58:00
== END ==
PROVIDERS: PCP Family Medicine; Visit Provider Internal Medicine
DX: E11.621 Type 2 diabetes mellitus with foot ulcer (principal); L97.512 Non-pressure chronic ulcer of other part of right foot with fat layer exposed
CPT/HCPCS: 11042

== ENCOUNTER → 2017-08-04 09:42 | Outpatient (CLI) | payer MEDICARE, OTHER, SELFPAY ==
--- NOTE | 2017-08-04 | OV.WND_ITS ---
Progress Note Details Patient Name: Josue Mesa Patient Number: [id number] PatientPatientDate: 08/04/2017 Clinician: Digna Diallo Clinician Cosigner: Estephanie Grant Physician / Ground [employer] Officer: Stephen Nice SUBJECTIVE Chief Complaint This information was obtained from the patient Diabetic ulcer to right plantar foot. Allergies Augmentin (Severity: Mild, Reaction: nausea) HPI This information was obtained from the patient 08/04/17. Seen by Dr. Nice. The patient does not report increased drainage associated with the chronic right plantar foot diabetic ulcer since his last visit and he's offloading appropriately as recommended. He also was seen by Dr. Solitario, podiatry, who discussed possible surgical options to address the severe right 1st toe valgus deformity that's complicating the ulcer and contributing to heavy periculcer callus formation however there's no plan of intervention at this time. 08/01/17. Seen by Dr. Nice. The patient does not report increased drainage associated with the chronic right plantar foot diabetic ulcer since his last visit and he's offloading appropriately as recommended. 07/28/17. Seen by Dr. Nice. The patient does not report increased drainage associated with the chronic right plantar foot diabetic ulcer since his last visit and he's offloading appropriately as recommended. We've increased his visits to twice weekly due to the very heavy callus formation that's contributing to the refractory nature of the ulcer. 07/25/17. Seen by Dr. Nice. The patient does not report increased drainage associated with the chronic right plantar foot diabetic ulcer since his last visit and he's offloading appropriately as recommended. Kerasal is not being applied to the periulcer callus and his visits have been decreased to once weekly over the past few weeks while the ulcer has been improving. 07/18/17. Seen by Dr. Nice. The patient does not report increased drainage associated with the chronic right plantar foot diabetic ulcer since his last visit and he's offloading appropriately as recommended. 07/11/17.Seen by Dr. Nice. The patient has been wearing his offloading shoe and using a knee scooter as recommended and does not report significant drainage associated with the chronic right plantar foot diabetic ulcer since his last visit. 07/04/17. Seen by Dr. Nice. The patient has been wearing his offloading shoe as recommended and does not report significant drainage associated with the chronic right plantar foot diabetic ulcer since his last visit. 06/30/17. Seen by Dr. Nice. The patient has been wearing his offloading shoe as recommended and does not report significant drainage associated with the chronic right plantar foot diabetic ulcer since his last visit. 06/27/2017. Seen by Dr. Nice. The patient has been wearing his offloading shoe as recommended and does not report significant drainage associated with the chronic right plantar foot diabetic ulcer since his last visit. His blood sugars are also mostly below 100 now and he's using his knee scooter as well to further optimize offloading. 06/23/2017. Seen by Dr. Nice. The patient does not report pain nor increased drainage associated with the chronic right plantar foot diabetic ulcer since his last visit. He is wearing his offloading shoe as recommended now and his blood sugar control has improved with some below 200. 06/20/2017. Some by Dr. Nice. The patient is not report increased drainage position with chronic right plantar foot diabetic ulcer since last visit. He is now clindamycin for the resistant Staphylococcus haemolyticus positive culture that was taken to the last visit. His blood sugars continued to be elevated and or over 300 earlier this morning despite having his Lantus dose increased recently. He is also wearing his diabetic shoes but not an offloading surgical shoe as I have been recommending. 06/16/17. Seen by Dr. Nice. The patient does not report increased drainage associated with chronic right plantar foot diabetic ulcers since his last visit. His recent wound culture grew a resistant coag negative staph organism. He also met with his primary care provider, Dr. Green, to increase his dosing of Lantus and plans to work with him on dietary measures to help gain better control of his elevated blood sugars. 06/13/17. Seen by Dr. Nice. The patient's blood sugars again are over 300 today and his appointment with his primary care provider to address this. He does not report any acute changes regarding the chronic right plantar foot diabetic ulcer and is using his knee scooter to help facilitate offloading as much as possible. 06/09/17. Seen by Dr. Nice. The patient does not report significant drainage associated with the chronic right plantar foot diabetic ulcer since his last visit. 06/06/17. Seen by Dr. Nice. The patient does not report significant drainage associated with the chronic right plantar foot diabetic ulcer since his last visit and he's lost another 7 lbs since increasing his dose of Lasix due to abnormal weight gain and significant bilateral lower extremity edema. 06/02/17. Seen by Dr. Nice. The patient does not report significant drainage associated with the chronic right plantar foot diabetic ulcer since his last visit. His increase his dose of Lasix and has lost 7 pounds over the past 3 days. This is been done due to the significant increase in leg swelling over the past 2 weeks. 05/30/17. Seen by Dr. Nice. The patient does not report increased drainage associated with chronic right plantar foot diabetic ulcer since his last visit however he does feel that the right foot and leg are swelling considerably over the past few days. We note a 4 pound weight gain since his last visit on Monday and he states is taking his diuretic as prescribed. 05/26/17. Seen by Dr. Nice. The patient does not report increased drainage associated with chronic right plantar foot diabetic ulcers since his last visit. His culture grew a somewhat resistant coag negative staph and he is not currently on antibiotics. 05/23/17. Seen by Dr. Nice. Staff reports some increased drainage on his dressings covering the chronic right plantar foot diabetic ulcer today. His blood sugar is again over 300 and he states he is eating rice and potatoes trying to cut back. He continues offload with his knee scooter as recommended and does not report pain or any other acute ulcer related issues today. 05/19/17. Seen by Dr. Nice. The patient does not report increased pain or drainage associated with chronic right plantar foot diabetic ulcer since his last visit. He is using his knee scooter as recommended and has had significant problems with heavy callus at the site due to a severe right first toe valgus deformity. He is now attending clinic twice weekly for debridement of the ulcer and complicating callous. 05/16/17. Seen by Dr. Nice. The patient does not report increased drainage or pain associated with chronic right plantar foot diabetic ulcer since his last visit. Of note, the patient's blood sugar as 271 today and his A1c was 9.8 in March. 05/12/17. Seen by Dr. Nice. The patient does not report increased pain or drainage associated with chronic right plantar foot diabetic ulcer since his last visit. He is using his knee scooter to help offload the site which is particularly important based on patient's morbid obesity coupled with his severe first MTPJ valgus deformity. 05/09/17. Seen by Dr. Nice. The patient does not report increased drainage or pain associated with the chronic right plantar foot diabetic ulcer since his last visit. He states his blood sugars continue to be above 200 consistently although are improving with compliance to a lower carbohydrate type diet. He was started on metformin about a month ago he complains of some intermittent upper extremity weakness since then and will be discussing this with his primary care provider. He is also awaiting his new diabetic shoes that are being adjusted to help accommodate for his severe right first toe valgus deformity. 05/02/17. Seen by Jean-Pierre Pinto PA-C. The patient reports stable drainage from his right 1st toe ulcer and blood sugars continue to be above goal. 04/25/17. Seen by Jean-Pierre Pinto PA-C. The patient reports his blood sugars have been above 150 this week. He does not report increased drainage from his right 1st toe diabetic ulcer. 04/18/17. Seen by Dr. Nice. The patient does not report increased drainage associated the chronic right first toe diabetic ulcers since his last visit. 04/11/17. Seen by Jean-Pierre Pinto PA-C. The patient reports he is developing more calloused areas on his feet and is concerned about new ulcers occurring. His chronic 1st toe diabetic ulcer has been stable. 04/04/17. Seen by Jean-Pierre Pinto PA-C. The patient reports he has not been able to get his blood sugars below 150. Drainage is reportedly decreased from his diabetic foot ulcer. 03/30/17. Seen by Jean-Pierre Pinto PA-C. The patient reports continued high blood sugars, all above 150. Drainage from his ulcer is not increased. 03/23/17. s Seen by Jean-Pierre Pinto PA-C. The patient reports blood sugars above 150 again this week. He is concerned that something must be going on with an infection as he believes his diet has not changed and thus his sugars should be lower. His wound has had stable drainage. 03/15/17. Seen by Jean-Pierre Pinto PA-C. The patient reports he has had some blood sugars above 150 this week. He reports no increase in drainage from his right 1st toe diabetic ulcer. 03/08/17. Seen by Dr. Nice. The patient was discharged from the hospital recently following treatment for cellulitis associated with the chronic right first toe diabetic ulcer. He grew MRSA from the wound culture and was treated with IV vancomycin and is now on Bactrim. He does not report pain nor significant drainage associated with the ulcer nor side effects from antibiotics. 02/23/17. Seen by Dr. Nice. The patient does not report increased drainage associated the chronic right first toe diabetic ulcers since his last visit. The patient also states that he is more active over the holidays and was unable to use his knee scooter at times while walking outside due to safety concerns. 02/08/17. Seen by Dr. Nice. The patient does not report increased drainage associated the chronic right first toe diabetic ulcers since his last visit. He states he is using his offloading shoe when at home and a knee scooter went out. 02/01/17. Seen by Dr. Nice. The patient does not report increasing pain or drainage associated with chronic right first toe diabetic ulcer since his last visit. 01/25/17. Seen by Dr. Nice. The patient does not report increasing pain or drainage associated with chronic right first toe diabetic ulcer since his last visit. 01/18/17. Seen by Dr. Nice. The patient does not report increasing pain or drainage associated with chronic right first toe diabetic ulcer since his last visit. Of note, the patient's blood sugar is over 260 again today and he admits that it's been significantly elevated for a number of weeks. He has an appointment with his primary care provider to discuss this next week. 01/11/17. Seen by Dr. Nice. The patient does not report increasing pain or drainage associated with chronic right first toe diabetic ulcer since his last visit. He states his blood sugars have been running high recently and he is going to follow-up with his primary care provider in the near future to address this. 01/04/17. Seen by Dr. Nice. The patient does not report increased drainage associated with chronic right first foot diabetic ulcers since his last visit. He's also been applying Kersal to the periulcer as recommended. 12/28/16. Seen by Dr. Nice. The patient does not report increased drainage associated with chronic right first foot diabetic ulcers since his last visit. 12/22/16. Seen by Dr. Nice. The patient does not report increased drainage associated with chronic right first foot diabetic ulcers since his last visit. He's not been applying Kersal to the periulcer callus and does not appear to be using his knee scooter at all times to offload the ulcer. 12/15/16. Seen by Jean-Pierre Pinto PA-C. The patient reports he continues to have blood sugars above 150 this week. He recently saw his PCP, they did not alter his diabetic care plan. His visit was a follow up for an ER visit for chest pain which was negative for LA and was thought to be epigastric in origin. His diabetic ulcer of the right foot has not had increased drainage. 12/06/16. Seen by Jean-Pierre Pinto PA-C. The patient reports that he has found his knee scooter and plans to start using it today. He also reports most of his blood sugars have been above 150. Drainage from his ulcer has been stable. 11/25/16. Seen by Dr. Nice. The patient does not report increased drainage associated with chronic right first foot diabetic ulcers since his last visit. He is now on antibiotics for wound infection and does not report adverse side effects. Of note, he is not yet using a knee scooter nor offloading shoe as we recommended last week. 11/18/16. Seen by Dr. Nice. The patient returns to our clinic and presents with recurrence of a right first MTPJ plantar diabetic ulcer. He states it started a couple weeks ago when he was attempting to remove overlying callus at home. He does not report significant drainage or pain associated with the ulcer and is not currently on antibiotics. He also states his recent A1c was 7.8. His blood sugar in clinic today is 250. 01/11/16 Seen by Jean-Pierre Pinto PA-C. The patient reports no drainage from his chronic right 1st MTPJ joint since his last dressing change. 01/04/16 Seen by Jean-Pierre Pinto PA-C. The patient reports minimal drainage from his chronic right 1st MTPJ ulcer. He has recently seen his PCP and his A1c was 7.7. His lower extremity edema, abnormal weight gain and kidney failure are stable with his diuretics recently being adjusted. 12/28/15. Seen by Dr. Nice. The patient does not report significant drainage associated with the chronic right 1st MTPJ diabetic ulcer since his last visit however he does complain of increasing shortness of breath, fatigue, and an 18lb weight gain over the past week despite taking his diuretics as recommended. He does not report chest pain or cough and his blood sugars remain relatively well controlled with most below 150. 12/16/15. Seen by Dr. Nice. The patient does not report significant drainage associated with the chronic right 1st MTPJ diabetic ulcer since his last visit. He's applying kerasal to the surrounding callus as recommended and offloading nearly at all times using his knee scooter. 12/07/15 Seen by Jean-Pierre Pinto PA-C. The patient reports compliance with his new offloading brace and shoe and has seen minimal drainage from his diabetic foot ulcer since his last visit. 11/30/15. Seen by Dr. Nice. The patient does not report significant drainage associated with the chronic right 1st MTPJ diabetic ulcer since his last visit and he's wearing a combined AFO / diabetic shoe system that he feels may be better offloading the ulcer. 11/23/15 Seen by Jean-Pierre Pinto PA-C. The patient reports that he is wearing his new diabetic shoes and inserts. He is continuing physical therapy for gait training and reports continued difficulty with stairs and occasional bouts of dizziness. He reports stable drainage from his chronic right foot diabetic ulcer. 11/16/15 Seen by Jean-Pierre Pinto PA-C. The patient reports stable drainage from his right foot diabetic ulcer. He also reports that his diabetic shoes and inserts are quite old and worn out. He is ambulating with is 4 wheeled walker and is working with PT for gait training. 11/09/15 Seen by Jean-Pierre Pinto PA-C. The patient reports that he is still using a 4 wheeled walker instead of a 4 footed walker. PT is working with him to improve his gait and balance. Drainage from his right foot ulcer has been stable. 11/02/15 Seen by Jean-Pierre Pinto PA-C. The patient reports no increase in drainage from his chronic diabetic foot ulcer. He has had multiple blood sugars above 150 this week. 10/29/15. Seen by Dr. Nice. The patient was recently discharged from [facility] following treatment of sepsis thought to possibly be related to his chronic right 1st MTPJ diabetic ulcer that grew Enterococcus just prior to his admission. He now feels generally weak , has lost 18 lbs following diuresis, and is residing at home where he's minimizing his weight bearing on the right foot. He does not report significant drainage from the ulcer nor pain and states his blood sugars remain mostly around 150. He also continues on levofloxacin and does not report adverse side effects. 10/14/15. Seen by Dr. Nice. The patient report persistent bloody drainage from the chronic right 1st MTPJ diabetic ulcer and he feels the callus has increased significantly since it was last debrided 2 week ago. He does not report fevers or feeling unwell and states his blood sugars are well controlled with most below 150. He's using his AFO when walking nearly at all times to facilitate offloading the significant right 1st MTPJ valgus deformity. 09/24/15 Seen by Jean-Pierre Pinto PA-C. The patient reports that he is no ran out of lasix due to a mix up at the pharmacy and unavailability of his strength/dose of tablets. He continues trying to offload his ulcer with his wheeled walker and notes stable ulcer drainage. 09/17/15. Seen by Dr. Nice. The patient continues to report some bloody drainage from the chronic right 1st MTPJ diabetic ulcer and he's started reducing his activity and continues to use his knee scooter at home to offload the foot. 09/10/15. Seen by Dr. Nice. The patient states he was more active over the past week and notices increased bloody drainage associated with chronic right first MTPJ diabetic foot ulcer. He continues to wear his AFO and states his blood sugars are mostly below 150. 09/03/15. Seen by Dr. Nice. The patient does not report significant drainage associated with the chronic right first MTPJ diabetic ulcer over the past week. He does feel that the callus smaller than on previous visits and is wearing his AFO at all times. Of note, he 's now in doxycycline to treat the recent coag negative Staph cultured from the ulcer at his last visit. 08/27/[address] Nice. The patient reports increase bloody drainage associated with the chronic right foot 1st MTPJ diabetic ulcer and he feels his activity has increased due to physical therapy and increased mobility over the past week. He does not report pain at the ulcer site, fevers, or feeling unwell in general. 08/20/[address] Nice. The patient does not report significant drainage associated with the chronic right foot 1st MTPJ diabetic ulcer over the past week and he's using a knee scooter as much as possible when mobilizing to offload the foot. His blood sugars also remain relatively well controlled with most below 150. 08/13/[address] Nice. The patient does not report significant drainage associated with the chronic right foot diabetic ulcer over the past week and he's offloading using a knee scooter as recommended. His blood sugars remain relatively well controlled with most below 150. 08/06/[address] Nice. The patient reports recurrence of some drainage from the chronic right foot diabetic ulcer over the past few days and states he's been more active with physical therapy. His blood sugars remain well controlled with most below 150 and he's wearing his AFO when away from the house and using a knee scooter most of the time while at home to facilitate offloading. He's also applying Kerasal to the callus in the periwound area as recommended. 07/23/[address] Nice. The patient does not report drainage from the chronic right 1st MTPJ diabetic ulcer over the past week and he's using his new AFO and knee scooter to offload the foot. 07/16/[address] Nice. The patient does not report pain or drainage from the chronic right 1st MTPJ diabetic ulcer and he's wearing his newer AFO while offloading with a knee scooter most of the time. 07/09/[address] Nice. The patient does not report drainage or pain associated with his chronic right foot 1st MTPJ diabetic ulcer and he's been offloading by using a knee scooter when mobilizing. His electrical technician instructor is present today as well to discuss possible adjustments to his AFO with the goal of reducing callus formation that's in part caused by his significant right 1st toe valgus deformity. He also states his blood sugars remain well controlled below 150 consistently. 07/03/[address] Nice. The patient does not report significant drainage from the chronic right foot diabetic ulcer and he's offloading by using his knee scooter. His blood sugars also remain relatively well controlled around 150 consistently. 06/26/[address] Nice. The patient report some continued bloody drainage from the chronic right 1st MTPJ diabetic ulcer however he does not report associated pain , fevers or feeling unwell. His blood sugars remain consistently below 150 and he's using his walker and knee scooter for offloading as recommended. He's also been actively working with his electrical technician instructor in hopes of better offloading the ulcer and address his significant callus formation and left 1st MTPJ valgus deformity. 06/19/[address] Nice. The patient does not report pain associated with his chronic right 1st MTPJ diabetic ulcer however he states some bloody drainage persists on the dressings. He does not report fevers or feeling unwell and states his blood sugars are well controlled below 150 consistently and he's using a knee scooter and walker to offload the ulcer when mobilizing. He also does not report pain or drainage associated with the left 2nd toe wound. 06/11/[address] Nice. The patient was recently discharged from [facility] following a fall at home that resulted in a broken rib. Regarding his chronic right 1st MTPJ diabetic ulcer he does not report significant drainage and has been offloading through bed rest and using a knee scooter while at home. His blood sugars also remain well controlled with most below 150. He also reports a new wound on the dorsum of the left 2nd toe that he believes occurred during his fall. He does not report associated pain or significant drainage. 05/28/[address] Nice. The patient reports some increased bloody drainage from the chronic right 1st MTPJ diabetic foot ulcer over the weekend associated with a new 'soft' area along the distal margin. He's been more active the past the past few days but states he's using his knee scooter to offload at all times. His blood sugars also remain well controlled with most around 120 and he's no longer on antibiotics. He also continues to wear his old AFO but states there was a recent adjustment of a cut out lined with 'soft' plastic in the area of the ulcer. 05/21/[address] Nice. The patient report less drainage from the chronic right foot 1st MTPJ diabetic ulcer over the past week. He's completed his course of doxycycline and he continues on fluconazole for the recent Alma Delia positive wound culture. He's also reverted back to using his previous AFO while his newer one is adjusted to try to address the recent significant increase in callus formation that's occurred. His blood sugars also remain well controlled under 150 consistently and his recent episodes of hypoglycemia has resolved with an adjustment of his insulin regimen. 05/14/[address] Nice. The patient reports less drainage on the dressings covering the chronic right 1st MTPJ diabetic ulcer since starting doxycycline for a coag negative Staph wound culture along with fluconazole for the alma delia positive culture. His blood sugars remain well controlled below 120 and his insulin has been decreased due to the recent episodes of hypoglycemia. His diuretic has also been decreased as he's lost considerable water weight over the past month. 05/07/[address] Nice. The patient continues to report modest bloody drainage on the dressing covering the chronic right 1st MTPJ diabetic ulcer and he continues to limit his walking but has not been using a knee scooter or walker around the house to facilitate offloading. His blood sugars remain well controlled mostly below 150. 04/30/[address] Nice. The patient continues to report bloody drainage on his right foot diabetic ulcer dressing and he's feeling a bit unwell in general without reporting specific symptoms. He also continues to have intermittent low blood sugars in the 50-60' s and has not discussed this issue with his PCP recently. He's wearing his AFO daily but admits to having difficulty using his walker at all times due to limited space in his new apartment. 04/27/15 Seen by Jean-Pierre Pinto PA-C. The patient reports nonspecific malaise for the past few days. Last night, he reports feeling to tired, weak and shaky to watch TV and went to bed very early. His malaise has been increasing over the past 1-2 weeks and he has frequently been monitoring his blood sugar. His blood sugars are lower than normal lately but never below 100. He has been reducing his insulin dosing in the past 2 weeks to compensate for the lower numbers. He continues to loose weight while continuing to take Lasix and metolazone. 04/23/[address] Nice. The staff and patient continue to report at least moderate serosanquinous drainage from the chronic right 1st MTPJ diabetic ulcer. His blood sugars have been well controlled over the past week with most below 150. He does report being more active than usual while he's been moving to his new home and he also states he continues to loose weight following a recent increase in his diruetics. His wound culture from the last visit reported heavy Diptheroids and he's not currently on antibiotics. 04/20/15 Seen by Jean-Pierre Pinto PA-C. The patient reports that he has moved house and has been on his feet much more so as a consequence. He reports increased drainage from his right plantar foot diabetic ulcer. In addition he believes he struck it against a hard surface when moving. He has had no significant pain with weightbearing but is insensate in this area. 04/15/[address] Nice. The patient reports continued weight loss, and decreasing leg swelling, since starting metolazone totaling about 20 lbs. He also feels the chronic right 1st MTPJ diabetic ulcer has been draining increasing amounts of sanguinous fluid. His blood sugars remain well controlled with most below 120 and he does not report fever or feeling unwell. 03/25/[address] Nice. The patient states he walked a considerable amount yesterday and now reports some bleeding from the chronic right 1st MTPJ diabetic foot ulcer. He also continues to report increased weight gain and now some shortness of breath when walking short distances. He has a low grade fever today but does not report a cough or feeling unwell otherwise. 03/11/2015 Seen by Jean-Pierre Pinto PA-C. The patient's weight has increased 10 lbs in the past week. He reports increased shortness of breath with exertion. He denies chest pain, jaw, neck, shoulder pain or shortness of breath at rest. He has been compliant with his diuretics. His ulcer drainage has been stable. 03/04/2015 Seen by Jean-Pierre Pinto PA-C. The patient is wearing his newly adjusted AFO and reports an increase in walking since last visit. He was unaware that his temperature was elevated and reports no URI symptoms such as cough or sore throat. 02/24/2015 Seen by Jean-Pierre Pinto PA-C. The patient believes his ulcer has now been draining more despite trying to offload the ulcer. 02/11/[address] Nice. The patient reports less drainage from the chronic right 1st toe diabetic ulcer and he's still waiting for approval for his new AFO. 02/04/[address] Nice. The patient feels the drainage from the right 1st MTPJ ulcer has decreased since last week and he's scheduled to see Dr. Solitario tomorrow to review his foot deformity and recurrent callus formation at the site of the ulcer. 01/30/[address] Nice. The patient returns to clinic and reports recurrence of the recently healed right 1st MTPJ diabetic foot ulcer with new moderate drainage and significant callus formation. He's not yet re-established with Dr. Solitario, podiatry, due to insurance issues and is awaiting approval for an adjustment for his AFO. His blood sugars remain controlled below 150 mostly and he does not report pain in the foot or fevers. 01/12/[address] Nice. The patient does not report drainage from the right 1st toe MTPJ ulcer and he's scheduled to have his new AFO fitted this week. 01/05/[address] Nice. The patient does not report drainage associated with the right 1st MTPJ diabetic foot ulcer however he states he has had some intermittent, very brief 'shooting' pain at the site of the ulcer the past few days. His blood sugars also remain between 120 and 150 mostly. 12/29/[address] Nice. The patient does not report drainage from the chronic right 1st MTPJ diabetic foot ulcer and he offloads using a walker and surgical shoe at all times except for when he wears a slipper around his small apartment. 12/22/[address] Nice. The patient does not report significant drainage from the right 1st MTPJ diabetic foot ulcer and he states his blood sugars are still in the 150 range with some over 180. 12/10/[address] Nice. The patient does not report significant drainage from the right 1st MTPJ diabetic foot ulcer. 12/04/[address] Nice. The patient does not report any drainage from the chronic right 1st MTPJ diabetic foot ulcer and he's still waiting for insurance approval for a custom, articulating AFO. His blood sugars also remain relatively well controlled below 150 consistently. He also continues to apply Kerasal to the associated callus daily. 11/20/[address] Nice. The patient's been feeling unwell the past week and feels he may have lost as much as 10 lbs due to poor oral intake. Otherwise he does not report any new problems regarding his right 1st MTPJ plantar diabetic ulcer. 11/07/[address] Nice. The patient reports only scant drainage from the right plantar diabetic foot ulcer. He's been offloading as recommending with a walker and is awaiting a approval for an articulating AFO. His blood sugars remain mostly well controlled below 150. 10/31/14 Seen by Jean-Pierre Pinto PA-C. The patient feels he has reached another plateau with regard to his wound healing. His right plantar diabetic ulcer continues to drain and has not improved recently. He is wearing his brace and reports compliance with offloading. 10/21/[address] Nice. The patient reports only scant drainage from his right 1st plantar surface MTPJ diabetic foot ulcer. He continues to offload with a frame walker and his blood sugars are moderately well controlled with most below 150. 10/14/[address] Nice. The patient does not report significant drainage from the right 1st plantar MTPJ ulcer. Of note, when discussing his blood sugars he mentions he's on both 70/30 insulin as well as Lantus and he frequently has blood sugars in the 150-200 range. 10/07/[address] iNce. The patient reports some modest drainage from the right 1st MTPJ plantar ulcer but no pain, erythema, or swelling. His blood sugars are mostly below 150 and he offloads with his AFO. 09/30/14 Seen by Jean-Pierre Pinto PA-C. The patient reports continued compliance with his AFO and he is trying to offload. He is scheduled now with PT for gait training and knee strengthening. He reports his knee is still sore at times and he feels unstable at times when using his offloading devices and AFO. 09/23/[address] Nice. The patient reports only minimal drainage from the right plantar 1st MTPJ ulcer. 09/16/14 Seen by Jean-Pierre Pinto PA-C. The patient continues to use his AFO, offloading shoe, knee scooter and frame walker to offload his wound. 09/09/14 Seen by Jean-Pierre Pinto PA-C. The patient has been wearing his AFO and offloading shoe together, with the added padding as designed by Sahra BOYD of [facility]. He reports that he feels unsteady and that his knee has felt strained and he discontinued using the brace as he is concerned that he has, or will, re-injure his right knee. He also is having difficulty using his knee scooter with the brace. One year ago , while attempting to offload his foot he did injure his knee and required physical therapy to recover. 08/19/14 Seen by Jean-Pierre Pinto PA-C. The patient's weight is down 10 lbs from his previous visit. His twice daily naproxen has been discontinued by his PCP in an effort to reduce his lower extremity edema. 08/15/14 Seen by Jean-Pierre Pinto PA-C. The patient continues to have weight fluctuations and large amounts of weight gain in short periods of time despite increased diuretic usage. 08/04/14 Seen by Jean-Pierre Pinto PA-C. The patient has been taking his Levaquin and again reports to the clinic with a low grade fever. He reports nearly daily application of Kerasal and his weight and edema have been stable on a higher dose of diuretics. Blood sugars remain stable on his current diabetic medications. 07/21/14 Seen by Jean-Pierre Pinto PA-C. The patient does not report fever, chills or URI symptoms. His wound drainage has been stable. 07/16/[address] Nice. The patient reports persistent but minimal drainage from the right foot plantar ulcer and continues to offload with a walker at all times. His blood sugar are mostly below 150 with a few around 170 the past few days. 07/01/14 The patient reports that he has gained 8lbs in 8 days. Denies SOB. Does not report fever or chills. 06/23/[address] Nice. The patient continues to offload with a knee scooter and walker at all times. He does not report significant drainage from the right plantar foot ulcer. 06/20/[address] Nice. The patient has been offloading his right foot ulcer with a walker and reports less drainage over the past 2 days. He's now off of antibiotics and his blood sugars remain well controlled below 150. 06/11/[address] Nice. The patient reports persistent drainage from the right foot plantar 1st MTPJ ulcer and he completed his course of doxycycline which was started for a MRSA positive culture from the ulcer site. His blood sugars have also been a bit elevated above 150 recently. He does not report fever or chills however. 06/04/14 The patient reports difficulty in offloading his wound due to inability to use crutches due to poor balance. He find the wheelchair difficult to use and his knee scooter is not rated for his weight. He denies fever, chills or URI symptoms. 05/28/14 The patient's been attempting to offload with a knee scooter but is concerned it may not be appropriate or stable based on his weight. He does not report increased drainage from he right plantar 1st MTPJ ulcer and his blood sugars remain well controlled below 120. 05/21/14 The patient reports only minimal sanguinous drainage from his right foot plantar ulcer and has been offloading it by minimizing his walking. He's also completed a course of doxycycline that was given for a coag negative staph wound culture from the ulcer. He states his blood sugars are consistently below 120 and does not report hypoglycemia. 05/13/14 The patient reports minimal drainage from his right foot plantar ulcer. His recent wound culture from the site returned coag negative Staph and Diptheroids. 05/02/14 The patient reports less drainage from the right plantar foot ulcer and continues to off loading by minimizing walking and wearing a post-op shoe. 04/29/14 The patient continues to wear his surgical boot with the cutout for his right foot plantar diabetic ulcer. He reports no increase in drainage. 04/25/14 The patient reports minimal bloody drainage on the right foot plantar ulcer dressing that was placed yesterday. He does not report any drainage from the previously healed lateral foot ulcer. His edema in the right leg persists despite wearing compression stockings daily and his blood sugars remain well controlled below 120 with his last A1c approx 2 months ago at 7.4. 04/22/14 The patient reports no increase in drainage from his wounds today. He has been faithfully wearing his orthopedic boot with the cut-out area around his 5th MT ulcer. 04/15/14 The patient reports no increase in drainage from his wounds today. He reminds me that a TCC was the cause of his 5th MT ulcer and he is not excited about trying a TCC again. He is interested in HBOT if it will be beneficial to his wounds. 04/09/14 The patient reports increased drainage from his right 5th MT ulcer and feels his surgical boot he's been wearing for off loading may have caused pressure to the area. His blood sugars have improved and he also reports a 5 lb weight loss after doubling his dose of lasix over the past week. Of note, he did not liaise with his PCP prior to doing this. 04/04/14 The patient states that he was walking a bit more than usual yesterday but notes some sanguinous drainage on his plantar 1st MTPJ dressing for the past few days. He's also put on 7 lbs in the past week and feels his legs are more swollen than usual. He does not report chest pain, shortness of breath, or orthopnea. His blood sugars are also up a bit around 180. He's compliant with both his diabetes regimen and his diuretic therapy. 03/28/14 The patient reports no increased drainage or other complications from his right foot diabetic ulcers. 03/21/14 The patient reports minimal drainage from his right foot diabetic ulcers. He continues to minimally weight bear using a surgical boot and a walker. 03/14/14 The patient does not report increased drainage or other new issues regarding his right 5th MTPJ and right 1st MTPJ plantar ulcers. His blood sugars remain more elevated than usual with some between 150 and 180. 03/07/14 The patient reports no fever or increased right foot wound pain or drainage. 02/28/14 The patient reports that his blood sugar this morning is a bit elevated around 160 but has mostly been below 140 over the past few days. He's been off antibiotics for 3 days now and reports modest drainage from the right 5th MT ulcer while dressing changes are being done every two days. 02/24/14 The patient does not report any new issues regarding his right foot ulcers including increased drainage, fever, or chills. He completed his course of doxycycline yesterday. 02/17/14 The patient reports moderate yellow drainage from the right foot 5th MTPJ ulcer. He's completed a course of doxycycline and does not report fever or chills but states his blood sugars remain higher then normal in the 170's. His wound culture was positive for Enterobacter and his ESR was elevated at 41 and CRP at 2.7. 02/06/14 The patient does not report increased drainage from the right 5th MTPJ ulcer nor does he report fever or pain. He continues to off load with a walker and minimizing walking. He continues on doxycycline which was started empirically at his last visit and his culture has since grown Enterobacter which should be susceptible to doxy based on sensitivities. His xray of the foot was not concerning for osteomyelitis however his ESR and CRP are both moderately elevated. He also feels his legs are more swollen than usual and he continues to take his lasix as scheduled. 02/03/14 The patient does not report fever, chills, or pain in the right foot however when the TCC was removed today he's noted to have a sizable increase in the diameter and depth of what was a small 5th MTPJ ulcer. 01/14/14 The patient reports no new problems regarding is right diabetic foot ulcer. 12/31/13 The patient reports minimal serous drainage from his right 5th MTPJ ulcer and states he continues to off load his foot as much as possible. He does not report pain or drainage from the site of his right 1st MTPJ ulcer. 12/19/13 The patient tolerated with TCC without any complaints but there appears to be a small area of erythema over the right 5th MTPJ. He notes his blood sugars are typically below 120 and his A1c last week was 7.4. 12/13/13 The patient has no complaints regarding his TCC nor his plantar ulcer. 12/11/13 The patient returns for placement of a TCC today. He does not report any new problems regarding is plantar ulcer. 12/03/13 The patient states his plantar ulcer drainage is stable and he's continued to not use a cut-out foam doughnut over the ulcer. 11/26/13 The patient has kept the foam dressing in place from the last visit and has not used a cut-out foam dressing which we felt caused some deterioration of the foot ulcer. He has some mild drainage but no pain. 11/22/13 The patient returns for review of his plantar ulcer and callus that seems to be deteriorating despite an adjustment to his boot and off loading measures. The patient reports his callus accumulation is in spite of daily kerasal applications. Patient reports a new small wound on the left second toe. Josue states that it might be related to the brace. Patient had brace modified to help off load. 11/06/13 Josue states he was able to schedule with the prosthetic doctor tomorrow at noon. He reports no new problems or concerns. He also says that he is done with physical therapy since yesterday as insurance will not cover it any longer. 10/31/13 The patient reports he received his dressing supplies. Dressings changes are going well and no new problems are reported. He saw his coiled tubing supervisor, Dr. Solitario, on Monday for a check up and had and x-ray of the foot. 10/24/13 Josue reports he has been staying off of his feet as much as possible. He has been changing the dressing as ordered and states there has been just a small amount of drainage. He recently ran out of his dressings and will need more ordered or the balance sent home with him. 10/17/13 Patient states he has no new problems or concerns. He did have a small increase in drainage the other day but he had walked more than normal the day before. 10/09/13 Josue states he has no new issues. Dressing changes are going well. 10/02/13 Josue states there have been no new issues with dressing changes. They have been changed once since his last visit. No complaints of pain with the wound. 09/20/13 Josue was discharged from wound care September 05. States that he has been using pumice stone on callus area where had previous wound and may have been too aggressive. Also has been on feet more and having increase in lower extremity edema. Continues to wear the tetragrip F he had received in the clinic 6 hours per day but has not ordered any yet. 09/27/13 Patient states that there have been no issues with using the tetra planting material remover. Asking about getting compression stockings from drug store for continued use. 09/05/13 Patient states he has set up physical therapy for the problems with his knee. He starts these treatments on 09/11. There has been no new issues with his wound and he changes the dressings about every two days. He reports little to no drainage. 08/06/13 States no new problems with wound area. Been using kerosol daily. 08/19/13 Patient states he twisted his knee a week ago, and it is effecting his walk slightly. He also complains of more edema in his legs, and has an appointment with his PCP tomorrow regarding the issue. No new problems or concerns with his wound. No new problems or concerns. Patient states he changed the dressing a few times this last week. Saw Dr. Solitario this past week for check up with no change o his management. 07/26/13 The patient has had new brace for one week and so far it is working out well. No other complaints at this time. 07/18/13 Patient got brace for foot and leg yesterday. No problems or concerns. 07/11/13 No problems or concerns. Changed dressing twice since last visit 07/04/13- Pt went to his PCP and his lasix were increased from 20mg to 40mg. He states his edema has decreased since then. Pt's diabetic foot brace (decreases lateral movement to reduce pressure on the sides of his feet) will arrive in about another week. 06/20/13- Pt reports increased edema in his feet for the last week, he has been walking more, but also sitting with his feet down more. With the increase in exercise he states his back has been hurting. On Sunday 06/18 pt went to [facility],and had his ankle brace fitting. 05/31/[address] Green this am. Changed dressing twice this week. Saw electrical technician instructor (in [place]) on Monday. Considering ankle brace 05/24/13 states started walking program at 5 minutes at a time and taking the bus to clinic apt. 11/08/12 Pt is changing dressing every two days. Is concerned about the edema to the left leg that had the cellulitis. States it is warm. 11/15/12 patient has been having more nerve pain. He has been changing his dressing either every day or every other day. 11/22/12- Patient continues to change dressing about every day. No problems noted. Patient changing dressing about q o day. Thinks wound is less deep. 12/07/12 Pt only changed dressing twice since last visit. No concerns or problems. 12/18/12 When cleaning wound was able to aspirate large purlent sero-sang fluid from site. Pt states he feels it was doing better. 12/24/12 Decreased drainage and pt states he feels the wound is doing well. 12/31 Pt states he has had decreased draiange from wound. Pt denies pain. 01/07/13Pt states the kerasol didn't really do much, but admits he was only applying it every other day and is not sure what his expectations should be. He believes he may have bumped a toe on the left foot and has been concerned about some bruising there but admits it is getting better. Still does not have his new shoes and says he is exploring other options like disability. 01/21/13 feeling well since last visit. feels he may have bumped third toe so wants it to be seen. Level 2- 3 neuropathic pain in right foot 02/27/12 Patient changing bandaid on foot and applying kerasol every three days. Patient got new PCP and saw him yesterday. Patient states things are going well with the wound. 03/12/[address] Green for edema and will see him tomorrow for follow up.03/25/13 states has drainage from bottom of foot. concerned about new wounds Sates he changes dressing every 2 days. Changed this AM as it came off. Using Ca alginate and foam. States no drainage last night 04/19/13 changes dressing every 2-3 days. no problem. Has appt with Dr. Solitario 04/30/13 and new shoes have arrived. To be fitted next week 04/26/13 Is wearing new shoes and states they are working well.Changed dressing twice this week 05.03.[address] Solitario last week. will see again in [address] Green started antibiotic for sinus infection States sinuses not a lot better. Has started Lakshmi D, helping some. States wound about same. Changing dressing 2 x this week as dressing came off. States added collagen one time. Past Medical History This information was obtained from the patient Patient has a medical history of: Left lower extremity cellulitis - 10/15/2012 Diabetic foot ulcer - 09/27/2013 (Hernandez grade 2; right plantar surface; Hernandez grade III (Enterobacter positive wound culture 02/03/14), lateral right 5th MTPJ originally dx 12/24/13; MRSA positive culture 06/04/14 ) Chronic venous hypertension Type II Diabetes Hypertension Morbid Obesity Kidney Stones Hx MRSA Diabetic neuropathy Hallux valgus (right 1st toe) UTI (hospital admit) Cellulitis of legs (June and September 2012- hospital admit) Cataract surgery (10/13/15) Diabetic Neuropathy Complaints and Symptoms This information was obtained from the patient Patient complains of: General Notes: I have reviewed and concur with the Review of Systems and Past Family Social History documents completed by the clinician, I have reviewed and concur with the Wound Assessment document completed by the clinician Cardiovascular (Central/Peripheral): Lower extremity (leg) swelling Integumentary (Hair/Skin/Nails): Open Sore Musculoskeletal: Deformities, Muscle Weakness Neurological: Abnormal Gait, Loss of Protective Sensation Prior Wound History: Bleeding, Drainage Patient denies complaints or symptoms related to: Cardiovascular (Central): Irregular heart beat Cardiovascular (Central/Peripheral): Lower extremity (leg) resting pain Constitutional Symptoms (General Health): Chills, Fever, Marked Weight Change Ear/Nose/Mouth/Throat: Hearing Loss / Aid Gastrointestinal (GI): Nausea / Vomiting Hematologic/Lymphatic: Bleeding / Clotting Disorders, Bleeding Tendency Musculoskeletal: Assistive Devices Prior Wound History: Erythema, Malodor, Pain Psychiatric: Memory Loss Respiratory: Oxygen Use, Shortness of Breath OBJECTIVE Constitutional Vital signs reviewed and noted. Well developed. Alert. Clean appearing.. Height/ Length: 71 in (180.34 cm), Weight: 363.8 lbs (165.36 kgs), BMI: 50.7, Temperature: 98.2 ?F ( 36.78 ?C), Pulse: 75 bpm, Respiratory Rate: 20 breaths/min, Blood Pressure: 129/57 mmHg, Capillary Blood Glucose: 201 mg/dl, Pulse Oximetry: 99 %. Vital Signs Notes: Per Patient Glucose: Ears, Nose, Mouth, and Throat: No clinically significant hearing loss on informal examination. Respiratory: No respiratory distress. Even respirations and without use of accessory muscles.. Cardiovascular: Pedal pulses 2+ on affected limb. 1+ right lower extremity edema. Gastrointestinal (GI): Obese. Nondistended.. 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 Integumentary (Hair, Skin) No periwound erythema, warmth, or significant drainage. No periwound rashes appreciated or noted otherwise.. Refer to appropriate clinician wound documentation for this visit; right foot ulcer extends to subcut with base partially covered with pink granulation, remainder fibrin and slough. Moderate amount of callus in the periulcer area. Wound #6 Right, Plantar Foot is a chronic Hernandez Grade 2 Diabetic Ulcer and has received a status of Not Healed. Subsequent wound encounter measurements are 0.7cm length x 0.5cm width x 0.3cm depth, with an area of 0.35 sq cm and a volume of 0.105 cubic cm. There is a moderate amount of sero-sanguineous drainage noted which has no odor. The patient reports a wound pain of level 0/10. The wound margin is callus. Wound bed has No epithelialization, No eschar, No slough, Yes pale kat, pink, firm granulation. The periwound skin moisture is normal. The periwound skin color is normal. The periwound skin exhibited: Callus. The periwound skin did not exhibit: Brawny Induration, Edema, Excoriation, Induration, Crepitus, Fluctuance, Friable, Rash. The temperature of the periwound skin is WNL. Periwound skin does not exhibit signs or symptoms of infection. Local Pulse is Palpable. Neurological: Cranial nerves grossly intact with symmetric function normal by informal observation.. 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 A skin/ subcutaneous tissue level surgical debridement with a total area debrided of 0.35 sq cm was performed by Stephen Nice MD. Subcutaneous was removed along with devitalized tissue: callus, exudate, and slough. The following instrument(s) were used: curette. Pain control was achieved using 2% Lido. A time out was conducted prior to the start of the procedure. A moderate amount of bleeding was controlled with silver nitrate. The procedure was tolerated well with a pain level of 0 throughout and a pain level of 0 following the procedure. Post Debridement Measurements: 0.7cm length x 0.5cm width x 0.3cm depth; with an area of 0.35 sq cm and a volume of 0.105 cubic cm; Additional Information Muscle fascia or bone removed and sent to pathology?: No PLAN Wound Orders: Wound #6 Right, Plantar Foot Anesthetic Topical Xylocaine to wound bed. - In clinic only. Cleanser Cleanse Wound: - Normal saline and gauze. May Shower. - Do not get wound wet with tap water. Use cast protector when showering. Topical Treatments Antibiotic/Antimicrobial Ointment/Cream. - Iodosorb. Barrier ointment to protect surround skin. - Kerasal to callus. Dressings Primary dressing: - Foam. Cover and secure with: - Hypafix tape. Change Dressing: - Every other day. Additional Orders: Off-Loading Keep weight off: - Right foot as much as possible. Use Knee scooter when able. Use/Wear when Walking: - Offloading shoe. Compression/Edema Control Elevation of leg(s) above the level of the heart when sitting. Avoid prolonged standing in one place. - Please avoid standing or walking for long periods of time. Knee-high gradient compression stockings. - Tetragrip F stockings to both legs. On in the morning and off at night. Follow-Up Appointments Return Appointment: - - Tuesdays and Fridays for callus removal. Other information: If you develop fever, chills, increased pain, drainage, redness or swelling please call our office. If after hours, respond to the ER. Should you experience any significant changes in your wound(s) or have any questions regarding your home care instructions please contact the wound center @ [phone]. If after hours, contact your primary care physician or go to the hospital emergency room. Scribing Attestation I attest, as the nurse, that I scribed these orders for the physician. I've reviewed the clinician's documentation and agree with the evaluation and plan as written. In addition, the patient's ulcer demonstrates evidence of non-viable devitalized tissue which will continue to benefit from sharp debridement to help promote granulation and expedite healing. Also, we'll continue with aggressive offloading measures including the use of a knee scooter and offloading shoe to help compensate for the severe right 1st toe valgus deformity. Electronic Signature(s) Signed By: Date: Stephen Nice MD 08/06/2017 14:27:05 Entered By: Stephen Nice on 08/04/2017 12:48:43
== END ==
PROVIDERS: PCP Family Medicine; Visit Provider Internal Medicine
DX: E11.621 Type 2 diabetes mellitus with foot ulcer (principal); L97.512 Non-pressure chronic ulcer of other part of right foot with fat layer exposed; M20.61 Acquired deformities of toe(s), unspecified, right foot
CPT/HCPCS: 11042

== ENCOUNTER → 2017-08-08 09:29 | Outpatient (CLI) | payer MEDICARE, OTHER, SELFPAY ==
--- NOTE | 2017-08-08 | OV.WND_ITS ---
Progress Note Details Patient Name: Josue Mesa Patient Number: [id number] PatientPatientDate: 08/08/2017 Clinician: Yajaira Alvarez Clinician Cosigner: Janel Daly Physician / Drinking Water Technician: Epifanio Pinto SUBJECTIVE Chief Complaint This information was obtained from the patient Diabetic ulcer to right plantar foot. Allergies Augmentin (Severity: Mild, Reaction: nausea) HPI This information was obtained from the patient 08/08/17. Seen by Jean-Pierre Pinto PA-C. The patient reports no increase in drainage from his right foot diabetic ulcer. His blood sugars this week have reportedly been mostly above 150. 08/04/17. Seen by Dr. Nice. The patient does not report increased drainage associated with the chronic right plantar foot diabetic ulcer since his last visit and he's offloading appropriately as recommended. He also was seen by Dr. Solitario, podiatry, who discussed possible surgical options to address the severe right 1st toe valgus deformity that's complicating the ulcer and contributing to heavy periculcer callus formation however there's no plan of intervention at this time. 08/01/17. Seen by Dr. Nice. The patient does not report increased drainage associated with the chronic right plantar foot diabetic ulcer since his last visit and he's offloading appropriately as recommended. 07/28/17. Seen by Dr. Nice. The patient does not report increased drainage associated with the chronic right plantar foot diabetic ulcer since his last visit and he's offloading appropriately as recommended. We've increased his visits to twice weekly due to the very heavy callus formation that's contributing to the refractory nature of the ulcer. 07/25/17. Seen by Dr. Nice. The patient does not report increased drainage associated with the chronic right plantar foot diabetic ulcer since his last visit and he's offloading appropriately as recommended. Kerasal is not being applied to the periulcer callus and his visits have been decreased to once weekly over the past few weeks while the ulcer has been improving. 07/18/17. Seen by Dr. Nice. The patient does not report increased drainage associated with the chronic right plantar foot diabetic ulcer since his last visit and he's offloading appropriately as recommended. 07/11/17.Seen by Dr. Nice. The patient has been wearing his offloading shoe and using a knee scooter as recommended and does not report significant drainage associated with the chronic right plantar foot diabetic ulcer since his last visit. 07/04/17. Seen by Dr. Nice. The patient has been wearing his offloading shoe as recommended and does not report significant drainage associated with the chronic right plantar foot diabetic ulcer since his last visit. 06/30/17. Seen by Dr. Nice. The patient has been wearing his offloading shoe as recommended and does not report significant drainage associated with the chronic right plantar foot diabetic ulcer since his last visit. 06/27/2017. Seen by Dr. Nice. The patient has been wearing his offloading shoe as recommended and does not report significant drainage associated with the chronic right plantar foot diabetic ulcer since his last visit. His blood sugars are also mostly below 100 now and he's using his knee scooter as well to further optimize offloading. 06/23/2017. Seen by Dr. Nice. The patient does not report pain nor increased drainage associated with the chronic right plantar foot diabetic ulcer since his last visit. He is wearing his offloading shoe as recommended now and his blood sugar control has improved with some below 200. 06/20/2017. Some by Dr. Nice. The patient is not report increased drainage position with chronic right plantar foot diabetic ulcer since last visit. He is now clindamycin for the resistant Staphylococcus haemolyticus positive culture that was taken to the last visit. His blood sugars continued to be elevated and or over 300 earlier this morning despite having his Lantus dose increased recently. He is also wearing his diabetic shoes but not an offloading surgical shoe as I have been recommending. 06/16/17. Seen by Dr. Nice. The patient does not report increased drainage associated with chronic right plantar foot diabetic ulcers since his last visit. His recent wound culture grew a resistant coag negative staph organism. He also met with his primary care provider, Dr. Green, to increase his dosing of Lantus and plans to work with him on dietary measures to help gain better control of his elevated blood sugars. 06/13/17. Seen by Dr. Nice. The patient's blood sugars again are over 300 today and his appointment with his primary care provider to address this. He does not report any acute changes regarding the chronic right plantar foot diabetic ulcer and is using his knee scooter to help facilitate offloading as much as possible. 06/09/17. Seen by Dr. Nice. The patient does not report significant drainage associated with the chronic right plantar foot diabetic ulcer since his last visit. 06/06/17. Seen by Dr. Nice. The patient does not report significant drainage associated with the chronic right plantar foot diabetic ulcer since his last visit and he's lost another 7 lbs since increasing his dose of Lasix due to abnormal weight gain and significant bilateral lower extremity edema. 06/02/17. Seen by Dr. Nice. The patient does not report significant drainage associated with the chronic right plantar foot diabetic ulcer since his last visit. His increase his dose of Lasix and has lost 7 pounds over the past 3 days. This is been done due to the significant increase in leg swelling over the past 2 weeks. 05/30/17. Seen by Dr. Nice. The patient does not report increased drainage associated with chronic right plantar foot diabetic ulcer since his last visit however he does feel that the right foot and leg are swelling considerably over the past few days. We note a 4 pound weight gain since his last visit on Monday and he states is taking his diuretic as prescribed. 05/26/17. Seen by Dr. Nice. The patient does not report increased drainage associated with chronic right plantar foot diabetic ulcers since his last visit. His culture grew a somewhat resistant coag negative staph and he is not currently on antibiotics. 05/23/17. Seen by Dr. Nice. Staff reports some increased drainage on his dressings covering the chronic right plantar foot diabetic ulcer today. His blood sugar is again over 300 and he states he is eating rice and potatoes trying to cut back. He continues offload with his knee scooter as recommended and does not report pain or any other acute ulcer related issues today. 05/19/17. Seen by Dr. Nice. The patient does not report increased pain or drainage associated with chronic right plantar foot diabetic ulcer since his last visit. He is using his knee scooter as recommended and has had significant problems with heavy callus at the site due to a severe right first toe valgus deformity. He is now attending clinic twice weekly for debridement of the ulcer and complicating callous. 05/16/17. Seen by Dr. Nice. The patient does not report increased drainage or pain associated with chronic right plantar foot diabetic ulcer since his last visit. Of note, the patient's blood sugar as 271 today and his A1c was 9.8 in March. 05/12/17. Seen by Dr. Nice. The patient does not report increased pain or drainage associated with chronic right plantar foot diabetic ulcer since his last visit. He is using his knee scooter to help offload the site which is particularly important based on patient's morbid obesity coupled with his severe first MTPJ valgus deformity. 05/09/17. Seen by Dr. Nice. The patient does not report increased drainage or pain associated with the chronic right plantar foot diabetic ulcer since his last visit. He states his blood sugars continue to be above 200 consistently although are improving with compliance to a lower carbohydrate type diet. He was started on metformin about a month ago he complains of some intermittent upper extremity weakness since then and will be discussing this with his primary care provider. He is also awaiting his new diabetic shoes that are being adjusted to help accommodate for his severe right first toe valgus deformity. 05/02/17. Seen by Jean-Pierre Pinto PA-C. The patient reports stable drainage from his right 1st toe ulcer and blood sugars continue to be above goal. 04/25/17. Seen by Jean-Pierre Pinto PA-C. The patient reports his blood sugars have been above 150 this week. He does not report increased drainage from his right 1st toe diabetic ulcer. 04/18/17. Seen by Dr. Nice. The patient does not report increased drainage associated the chronic right first toe diabetic ulcers since his last visit. 04/11/17. Seen by Jean-Pierre Pinto PA-C. The patient reports he is developing more calloused areas on his feet and is concerned about new ulcers occurring. His chronic 1st toe diabetic ulcer has been stable. 04/04/17. Seen by Jean-Pierre Pinto PA-C. The patient reports he has not been able to get his blood sugars below 150. Drainage is reportedly decreased from his diabetic foot ulcer. 03/30/17. Seen by Jean-Pierre Pinto PA-C. The patient reports continued high blood sugars, all above 150. Drainage from his ulcer is not increased. 03/23/17. s Seen by Jean-Pierre Pinto PA-C. The patient reports blood sugars above 150 again this week. He is concerned that something must be going on with an infection as he believes his diet has not changed and thus his sugars should be lower. His wound has had stable drainage. 03/15/17. Seen by Jean-Pierre Pinto PA-C. The patient reports he has had some blood sugars above 150 this week. He reports no increase in drainage from his right 1st toe diabetic ulcer. 03/08/17. Seen by Dr. Nice. The patient was discharged from the hospital recently following treatment for cellulitis associated with the chronic right first toe diabetic ulcer. He grew MRSA from the wound culture and was treated with IV vancomycin and is now on Bactrim. He does not report pain nor significant drainage associated with the ulcer nor side effects from antibiotics. 02/23/17. Seen by Dr. Nice. The patient does not report increased drainage associated the chronic right first toe diabetic ulcers since his last visit. The patient also states that he is more active over the holidays and was unable to use his knee scooter at times while walking outside due to safety concerns. 02/08/17. Seen by Dr. Nice. The patient does not report increased drainage associated the chronic right first toe diabetic ulcers since his last visit. He states he is using his offloading shoe when at home and a knee scooter went out. 02/01/17. Seen by Dr. Nice. The patient does not report increasing pain or drainage associated with chronic right first toe diabetic ulcer since his last visit. 01/25/17. Seen by Dr. Nice. The patient does not report increasing pain or drainage associated with chronic right first toe diabetic ulcer since his last visit. 01/18/17. Seen by Dr. Nice. The patient does not report increasing pain or drainage associated with chronic right first toe diabetic ulcer since his last visit. Of note, the patient's blood sugar is over 260 again today and he admits that it's been significantly elevated for a number of weeks. He has an appointment with his primary care provider to discuss this next week. 01/11/17. Seen by Dr. Nice. The patient does not report increasing pain or drainage associated with chronic right first toe diabetic ulcer since his last visit. He states his blood sugars have been running high recently and he is going to follow-up with his primary care provider in the near future to address this. 01/04/17. Seen by Dr. Nice. The patient does not report increased drainage associated with chronic right first foot diabetic ulcers since his last visit. He's also been applying Kersal to the periulcer as recommended. 12/28/16. Seen by Dr. Nice. The patient does not report increased drainage associated with chronic right first foot diabetic ulcers since his last visit. 12/22/16. Seen by Dr. Nice. The patient does not report increased drainage associated with chronic right first foot diabetic ulcers since his last visit. He's not been applying Kersal to the periulcer callus and does not appear to be using his knee scooter at all times to offload the ulcer. 12/15/16. Seen by Jean-Pierre Pinto PA-C. The patient reports he continues to have blood sugars above 150 this week. He recently saw his PCP, they did not alter his diabetic care plan. His visit was a follow up for an ER visit for chest pain which was negative for ND and was thought to be epigastric in origin. His diabetic ulcer of the right foot has not had increased drainage. 12/06/16. Seen by Jean-Pierre Pinto PA-C. The patient reports that he has found his knee scooter and plans to start using it today. He also reports most of his blood sugars have been above 150. Drainage from his ulcer has been stable. 11/25/16. Seen by Dr. Nice. The patient does not report increased drainage associated with chronic right first foot diabetic ulcers since his last visit. He is now on antibiotics for wound infection and does not report adverse side effects. Of note, he is not yet using a knee scooter nor offloading shoe as we recommended last week. 11/18/16. Seen by Dr. Nice. The patient returns to our clinic and presents with recurrence of a right first MTPJ plantar diabetic ulcer. He states it started a couple weeks ago when he was attempting to remove overlying callus at home. He does not report significant drainage or pain associated with the ulcer and is not currently on antibiotics. He also states his recent A1c was 7.8. His blood sugar in clinic today is 250. 01/11/16 Seen by Jean-Pierre Pinto PA-C. The patient reports no drainage from his chronic right 1st MTPJ joint since his last dressing change. 01/04/16 Seen by Jean-Pierre Pinto PA-C. The patient reports minimal drainage from his chronic right 1st MTPJ ulcer. He has recently seen his PCP and his A1c was 7.7. His lower extremity edema, abnormal weight gain and kidney failure are stable with his diuretics recently being adjusted. 12/28/15. Seen by Dr. Nice. The patient does not report significant drainage associated with the chronic right 1st MTPJ diabetic ulcer since his last visit however he does complain of increasing shortness of breath, fatigue, and an 18lb weight gain over the past week despite taking his diuretics as recommended. He does not report chest pain or cough and his blood sugars remain relatively well controlled with most below 150. 12/16/15. Seen by Dr. Nice. The patient does not report significant drainage associated with the chronic right 1st MTPJ diabetic ulcer since his last visit. He's applying kerasal to the surrounding callus as recommended and offloading nearly at all times using his knee scooter. 12/07/15 Seen by Jean-Pierre Pinto PA-C. The patient reports compliance with his new offloading brace and shoe and has seen minimal drainage from his diabetic foot ulcer since his last visit. 11/30/15. Seen by Dr. Nice. The patient does not report significant drainage associated with the chronic right 1st MTPJ diabetic ulcer since his last visit and he's wearing a combined AFO / diabetic shoe system that he feels may be better offloading the ulcer. 11/23/15 Seen by Jean-Pierre Pinto PA-C. The patient reports that he is wearing his new diabetic shoes and inserts. He is continuing physical therapy for gait training and reports continued difficulty with stairs and occasional bouts of dizziness. He reports stable drainage from his chronic right foot diabetic ulcer. 11/16/15 Seen by Jean-Pierre Pinto PA-C. The patient reports stable drainage from his right foot diabetic ulcer. He also reports that his diabetic shoes and inserts are quite old and worn out. He is ambulating with is 4 wheeled walker and is working with PT for gait training. 11/09/15 Seen by Jea-nPierre Pinto PA-C. The patient reports that he is still using a 4 wheeled walker instead of a 4 footed walker. PT is working with him to improve his gait and balance. Drainage from his right foot ulcer has been stable. 11/02/15 Seen by Jean-Pierre Pinto PA-C. The patient reports no increase in drainage from his chronic diabetic foot ulcer. He has had multiple blood sugars above 150 this week. 10/29/15. Seen by Dr. Nice. The patient was recently discharged from [facility] following treatment of sepsis thought to possibly be related to his chronic right 1st MTPJ diabetic ulcer that grew Enterococcus just prior to his admission. He now feels generally weak , has lost 18 lbs following diuresis, and is residing at home where he's minimizing his weight bearing on the right foot. He does not report significant drainage from the ulcer nor pain and states his blood sugars remain mostly around 150. He also continues on levofloxacin and does not report adverse side effects. 10/14/15. Seen by Dr. Nice. The patient report persistent bloody drainage from the chronic right 1st MTPJ diabetic ulcer and he feels the callus has increased significantly since it was last debrided 2 week ago. He does not report fevers or feeling unwell and states his blood sugars are well controlled with most below 150. He's using his AFO when walking nearly at all times to facilitate offloading the significant right 1st MTPJ valgus deformity. 09/24/15 Seen by Jean-Pierre Pinto PA-C. The patient reports that he is no ran out of lasix due to a mix up at the pharmacy and unavailability of his strength/dose of tablets. He continues trying to offload his ulcer with his wheeled walker and notes stable ulcer drainage. 09/17/15. Seen by Dr. Nice. The patient continues to report some bloody drainage from the chronic right 1st MTPJ diabetic ulcer and he's started reducing his activity and continues to use his knee scooter at home to offload the foot. 09/10/15. Seen by Dr. Nice. The patient states he was more active over the past week and notices increased bloody drainage associated with chronic right first MTPJ diabetic foot ulcer. He continues to wear his AFO and states his blood sugars are mostly below 150. 09/03/15. Seen by Dr. Nice. The patient does not report significant drainage associated with the chronic right first MTPJ diabetic ulcer over the past week. He does feel that the callus smaller than on previous visits and is wearing his AFO at all times. Of note, he 's now in doxycycline to treat the recent coag negative Staph cultured from the ulcer at his last visit. 08/27/[address] Nice. The patient reports increase bloody drainage associated with the chronic right foot 1st MTPJ diabetic ulcer and he feels his activity has increased due to physical therapy and increased mobility over the past week. He does not report pain at the ulcer site, fevers, or feeling unwell in general. 08/20/[address] Nice. The patient does not report significant drainage associated with the chronic right foot 1st MTPJ diabetic ulcer over the past week and he's using a knee scooter as much as possible when mobilizing to offload the foot. His blood sugars also remain relatively well controlled with most below 150. 08/13/[address] Nice. The patient does not report significant drainage associated with the chronic right foot diabetic ulcer over the past week and he's offloading using a knee scooter as recommended. His blood sugars remain relatively well controlled with most below 150. 08/06/[address] Nice. The patient reports recurrence of some drainage from the chronic right foot diabetic ulcer over the past few days and states he's been more active with physical therapy. His blood sugars remain well controlled with most below 150 and he's wearing his AFO when away from the house and using a knee scooter most of the time while at home to facilitate offloading. He's also applying Kerasal to the callus in the periwound area as recommended. 07/23/[address] Nice. The patient does not report drainage from the chronic right 1st MTPJ diabetic ulcer over the past week and he's using his new AFO and knee scooter to offload the foot. 07/16/[address] Nice. The patient does not report pain or drainage from the chronic right 1st MTPJ diabetic ulcer and he's wearing his newer AFO while offloading with a knee scooter most of the time. 07/09/[address] Nice. The patient does not report drainage or pain associated with his chronic right foot 1st MTPJ diabetic ulcer and he's been offloading by using a knee scooter when mobilizing. His belly roller is present today as well to discuss possible adjustments to his AFO with the goal of reducing callus formation that's in part caused by his significant right 1st toe valgus deformity. He also states his blood sugars remain well controlled below 150 consistently. 07/03/[address] Nice. The patient does not report significant drainage from the chronic right foot diabetic ulcer and he's offloading by using his knee scooter. His blood sugars also remain relatively well controlled around 150 consistently. 06/26/[address] Nice. The patient report some continued bloody drainage from the chronic right 1st MTPJ diabetic ulcer however he does not report associated pain , fevers or feeling unwell. His blood sugars remain consistently below 150 and he's using his walker and knee scooter for offloading as recommended. He's also been actively working with his belly roller in hopes of better offloading the ulcer and address his significant callus formation and left 1st MTPJ valgus deformity. 06/19/[address] Nice. The patient does not report pain associated with his chronic right 1st MTPJ diabetic ulcer however he states some bloody drainage persists on the dressings. He does not report fevers or feeling unwell and states his blood sugars are well controlled below 150 consistently and he's using a knee scooter and walker to offload the ulcer when mobilizing. He also does not report pain or drainage associated with the left 2nd toe wound. 06/11/[address] Nice. The patient was recently discharged from [facility] following a fall at home that resulted in a broken rib. Regarding his chronic right 1st MTPJ diabetic ulcer he does not report significant drainage and has been offloading through bed rest and using a knee scooter while at home. His blood sugars also remain well controlled with most below 150. He also reports a new wound on the dorsum of the left 2nd toe that he believes occurred during his fall. He does not report associated pain or significant drainage. 05/28/[address] Nice. The patient reports some increased bloody drainage from the chronic right 1st MTPJ diabetic foot ulcer over the weekend associated with a new 'soft' area along the distal margin. He's been more active the past the past few days but states he's using his knee scooter to offload at all times. His blood sugars also remain well controlled with most around 120 and he's no longer on antibiotics. He also continues to wear his old AFO but states there was a recent adjustment of a cut out lined with 'soft' plastic in the area of the ulcer. 05/21/[address] Nice. The patient report less drainage from the chronic right foot 1st MTPJ diabetic ulcer over the past week. He's completed his course of doxycycline and he continues on fluconazole for the recent Alma Delia positive wound culture. He's also reverted back to using his previous AFO while his newer one is adjusted to try to address the recent significant increase in callus formation that's occurred. His blood sugars also remain well controlled under 150 consistently and his recent episodes of hypoglycemia has resolved with an adjustment of his insulin regimen. 05/14/[address] Nice. The patient reports less drainage on the dressings covering the chronic right 1st MTPJ diabetic ulcer since starting doxycycline for a coag negative Staph wound culture along with fluconazole for the alma delia positive culture. His blood sugars remain well controlled below 120 and his insulin has been decreased due to the recent episodes of hypoglycemia. His diuretic has also been decreased as he's lost considerable water weight over the past month. 05/07/[address] Niec. The patient continues to report modest bloody drainage on the dressing covering the chronic right 1st MTPJ diabetic ulcer and he continues to limit his walking but has not been using a knee scooter or walker around the house to facilitate offloading. His blood sugars remain well controlled mostly below 150. 04/30/[address] Nice. The patient continues to report bloody drainage on his right foot diabetic ulcer dressing and he's feeling a bit unwell in general without reporting specific symptoms. He also continues to have intermittent low blood sugars in the 50-60' s and has not discussed this issue with his PCP recently. He's wearing his AFO daily but admits to having difficulty using his walker at all times due to limited space in his new apartment. 04/27/15 Seen by Jean-Pierre Pinto PA-C. The patient reports nonspecific malaise for the past few days. Last night, he reports feeling to tired, weak and shaky to watch TV and went to bed very early. His malaise has been increasing over the past 1-2 weeks and he has frequently been monitoring his blood sugar. His blood sugars are lower than normal lately but never below 100. He has been reducing his insulin dosing in the past 2 weeks to compensate for the lower numbers. He continues to loose weight while continuing to take Lasix and metolazone. 04/23/[address] Nice. The staff and patient continue to report at least moderate serosanquinous drainage from the chronic right 1st MTPJ diabetic ulcer. His blood sugars have been well controlled over the past week with most below 150. He does report being more active than usual while he's been moving to his new home and he also states he continues to loose weight following a recent increase in his diruetics. His wound culture from the last visit reported heavy Diptheroids and he's not currently on antibiotics. 04/20/15 Seen by Jean-Pierre Pinto PA-C. The patient reports that he has moved house and has been on his feet much more so as a consequence. He reports increased drainage from his right plantar foot diabetic ulcer. In addition he believes he struck it against a hard surface when moving. He has had no significant pain with weightbearing but is insensate in this area. 04/15/[address] Nice. The patient reports continued weight loss, and decreasing leg swelling, since starting metolazone totaling about 20 lbs. He also feels the chronic right 1st MTPJ diabetic ulcer has been draining increasing amounts of sanguinous fluid. His blood sugars remain well controlled with most below 120 and he does not report fever or feeling unwell. 03/25/[address] Nice. The patient states he walked a considerable amount yesterday and now reports some bleeding from the chronic right 1st MTPJ diabetic foot ulcer. He also continues to report increased weight gain and now some shortness of breath when walking short distances. He has a low grade fever today but does not report a cough or feeling unwell otherwise. 03/11/2015 Seen by Jean-Pierre Pinto PA-C. The patient's weight has increased 10 lbs in the past week. He reports increased shortness of breath with exertion. He denies chest pain, jaw, neck, shoulder pain or shortness of breath at rest. He has been compliant with his diuretics. His ulcer drainage has been stable. 03/04/2015 Seen by Jean-Pierre Pinto PA-C. The patient is wearing his newly adjusted AFO and reports an increase in walking since last visit. He was unaware that his temperature was elevated and reports no URI symptoms such as cough or sore throat. 02/24/2015 Seen by Jean-Pierre Pinto PA-C. The patient believes his ulcer has now been draining more despite trying to offload the ulcer. 02/11/[address] Nice. The patient reports less drainage from the chronic right 1st toe diabetic ulcer and he's still waiting for approval for his new AFO. 02/04/[address] Nice. The patient feels the drainage from the right 1st MTPJ ulcer has decreased since last week and he's scheduled to see Dr. Solitario tomorrow to review his foot deformity and recurrent callus formation at the site of the ulcer. 01/30/[address] Nice. The patient returns to clinic and reports recurrence of the recently healed right 1st MTPJ diabetic foot ulcer with new moderate drainage and significant callus formation. He's not yet re-established with Dr. Solitario, podiatry, due to insurance issues and is awaiting approval for an adjustment for his AFO. His blood sugars remain controlled below 150 mostly and he does not report pain in the foot or fevers. 01/12/[address] Nice. The patient does not report drainage from the right 1st toe MTPJ ulcer and he's scheduled to have his new AFO fitted this week. 01/05/[address] Nice. The patient does not report drainage associated with the right 1st MTPJ diabetic foot ulcer however he states he has had some intermittent, very brief 'shooting' pain at the site of the ulcer the past few days. His blood sugars also remain between 120 and 150 mostly. 12/29/[address] Nice. The patient does not report drainage from the chronic right 1st MTPJ diabetic foot ulcer and he offloads using a walker and surgical shoe at all times except for when he wears a slipper around his small apartment. 12/22/[address] Nice. The patient does not report significant drainage from the right 1st MTPJ diabetic foot ulcer and he states his blood sugars are still in the 150 range with some over 180. 12/10/[address] Nice. The patient does not report significant drainage from the right 1st MTPJ diabetic foot ulcer. 12/04/[address] Nice. The patient does not report any drainage from the chronic right 1st MTPJ diabetic foot ulcer and he's still waiting for insurance approval for a custom, articulating AFO. His blood sugars also remain relatively well controlled below 150 consistently. He also continues to apply Kerasal to the associated callus daily. 11/20/[address] Nice. The patient's been feeling unwell the past week and feels he may have lost as much as 10 lbs due to poor oral intake. Otherwise he does not report any new problems regarding his right 1st MTPJ plantar diabetic ulcer. 11/07/[address] Nice. The patient reports only scant drainage from the right plantar diabetic foot ulcer. He's been offloading as recommending with a walker and is awaiting a approval for an articulating AFO. His blood sugars remain mostly well controlled below 150. 10/31/14 Seen by Jean-Pierre Pinto PA-C. The patient feels he has reached another plateau with regard to his wound healing. His right plantar diabetic ulcer continues to drain and has not improved recently. He is wearing his brace and reports compliance with offloading. 10/21/[address] Nice. The patient reports only scant drainage from his right 1st plantar surface MTPJ diabetic foot ulcer. He continues to offload with a frame walker and his blood sugars are moderately well controlled with most below 150. 10/14/[address] Nice. The patient does not report significant drainage from the right 1st plantar MTPJ ulcer. Of note, when discussing his blood sugars he mentions he's on both 70/30 insulin as well as Lantus and he frequently has blood sugars in the 150-200 range. 10/07/[address] Nice. The patient reports some modest drainage from the right 1st MTPJ plantar ulcer but no pain, erythema, or swelling. His blood sugars are mostly below 150 and he offloads with his AFO. 09/30/14 Seen by Jean-Pierre Pinto PA-C. The patient reports continued compliance with his AFO and he is trying to offload. He is scheduled now with PT for gait training and knee strengthening. He reports his knee is still sore at times and he feels unstable at times when using his offloading devices and AFO. 09/23/[address] Nice. The patient reports only minimal drainage from the right plantar 1st MTPJ ulcer. 09/16/14 Seen by Jean-Pierre Pinto PA-C. The patient continues to use his AFO, offloading shoe, knee scooter and frame walker to offload his wound. 09/09/14 Seen by Jean-Pierre Pinto PA-C. The patient has been wearing his AFO and offloading shoe together, with the added padding as designed by Sahra BOYD of [facility]. He reports that he feels unsteady and that his knee has felt strained and he discontinued using the brace as he is concerned that he has, or will, re-injure his right knee. He also is having difficulty using his knee scooter with the brace. One year ago , while attempting to offload his foot he did injure his knee and required physical therapy to recover. 08/19/14 Seen by Jean-Pierre Pinto PA-C. The patient's weight is down 10 lbs from his previous visit. His twice daily naproxen has been discontinued by his PCP in an effort to reduce his lower extremity edema. 08/15/14 Seen by Jean-Pierre Pinto PA-C. The patient continues to have weight fluctuations and large amounts of weight gain in short periods of time despite increased diuretic usage. 08/04/14 Seen by Jean-Pierre Pinto PA-C. The patient has been taking his Levaquin and again reports to the clinic with a low grade fever. He reports nearly daily application of Kerasal and his weight and edema have been stable on a higher dose of diuretics. Blood sugars remain stable on his current diabetic medications. 07/21/14 Seen by Jean-Pierre Pinto PA-C. The patient does not report fever, chills or URI symptoms. His wound drainage has been stable. 07/16/[address] Nice. The patient reports persistent but minimal drainage from the right foot plantar ulcer and continues to offload with a walker at all times. His blood sugar are mostly below 150 with a few around 170 the past few days. 07/01/14 The patient reports that he has gained 8lbs in 8 days. Denies SOB. Does not report fever or chills. 06/23/[address] Nice. The patient continues to offload with a knee scooter and walker at all times. He does not report significant drainage from the right plantar foot ulcer. 06/20/[address] Nice. The patient has been offloading his right foot ulcer with a walker and reports less drainage over the past 2 days. He's now off of antibiotics and his blood sugars remain well controlled below 150. 06/11/[address] Nice. The patient reports persistent drainage from the right foot plantar 1st MTPJ ulcer and he completed his course of doxycycline which was started for a MRSA positive culture from the ulcer site. His blood sugars have also been a bit elevated above 150 recently. He does not report fever or chills however. 06/04/14 The patient reports difficulty in offloading his wound due to inability to use crutches due to poor balance. He find the wheelchair difficult to use and his knee scooter is not rated for his weight. He denies fever, chills or URI symptoms. 05/28/14 The patient's been attempting to offload with a knee scooter but is concerned it may not be appropriate or stable based on his weight. He does not report increased drainage from he right plantar 1st MTPJ ulcer and his blood sugars remain well controlled below 120. 05/21/14 The patient reports only minimal sanguinous drainage from his right foot plantar ulcer and has been offloading it by minimizing his walking. He's also completed a course of doxycycline that was given for a coag negative staph wound culture from the ulcer. He states his blood sugars are consistently below 120 and does not report hypoglycemia. 05/13/14 The patient reports minimal drainage from his right foot plantar ulcer. His recent wound culture from the site returned coag negative Staph and Diptheroids. 05/02/14 The patient reports less drainage from the right plantar foot ulcer and continues to off loading by minimizing walking and wearing a post-op shoe. 04/29/14 The patient continues to wear his surgical boot with the cutout for his right foot plantar diabetic ulcer. He reports no increase in drainage. 04/25/14 The patient reports minimal bloody drainage on the right foot plantar ulcer dressing that was placed yesterday. He does not report any drainage from the previously healed lateral foot ulcer. His edema in the right leg persists despite wearing compression stockings daily and his blood sugars remain well controlled below 120 with his last A1c approx 2 months ago at 7.4. 04/22/14 The patient reports no increase in drainage from his wounds today. He has been faithfully wearing his orthopedic boot with the cut-out area around his 5th MT ulcer. 04/15/14 The patient reports no increase in drainage from his wounds today. He reminds me that a TCC was the cause of his 5th MT ulcer and he is not excited about trying a TCC again. He is interested in HBOT if it will be beneficial to his wounds. 04/09/14 The patient reports increased drainage from his right 5th MT ulcer and feels his surgical boot he's been wearing for off loading may have caused pressure to the area. His blood sugars have improved and he also reports a 5 lb weight loss after doubling his dose of lasix over the past week. Of note, he did not liaise with his PCP prior to doing this. 04/04/14 The patient states that he was walking a bit more than usual yesterday but notes some sanguinous drainage on his plantar 1st MTPJ dressing for the past few days. He's also put on 7 lbs in the past week and feels his legs are more swollen than usual. He does not report chest pain, shortness of breath, or orthopnea. His blood sugars are also up a bit around 180. He's compliant with both his diabetes regimen and his diuretic therapy. 03/28/14 The patient reports no increased drainage or other complications from his right foot diabetic ulcers. 03/21/14 The patient reports minimal drainage from his right foot diabetic ulcers. He continues to minimally weight bear using a surgical boot and a walker. 03/14/14 The patient does not report increased drainage or other new issues regarding his right 5th MTPJ and right 1st MTPJ plantar ulcers. His blood sugars remain more elevated than usual with some between 150 and 180. 03/07/14 The patient reports no fever or increased right foot wound pain or drainage. 02/28/14 The patient reports that his blood sugar this morning is a bit elevated around 160 but has mostly been below 140 over the past few days. He's been off antibiotics for 3 days now and reports modest drainage from the right 5th MT ulcer while dressing changes are being done every two days. 02/24/14 The patient does not report any new issues regarding his right foot ulcers including increased drainage, fever, or chills. He completed his course of doxycycline yesterday. 02/17/14 The patient reports moderate yellow drainage from the right foot 5th MTPJ ulcer. He's completed a course of doxycycline and does not report fever or chills but states his blood sugars remain higher then normal in the 170's. His wound culture was positive for Enterobacter and his ESR was elevated at 41 and CRP at 2.7. 02/06/14 The patient does not report increased drainage from the right 5th MTPJ ulcer nor does he report fever or pain. He continues to off load with a walker and minimizing walking. He continues on doxycycline which was started empirically at his last visit and his culture has since grown Enterobacter which should be susceptible to doxy based on sensitivities. His xray of the foot was not concerning for osteomyelitis however his ESR and CRP are both moderately elevated. He also feels his legs are more swollen than usual and he continues to take his lasix as scheduled. 02/03/14 The patient does not report fever, chills, or pain in the right foot however when the TCC was removed today he's noted to have a sizable increase in the diameter and depth of what was a small 5th MTPJ ulcer. 01/14/14 The patient reports no new problems regarding is right diabetic foot ulcer. 12/31/13 The patient reports minimal serous drainage from his right 5th MTPJ ulcer and states he continues to off load his foot as much as possible. He does not report pain or drainage from the site of his right 1st MTPJ ulcer. 12/19/13 The patient tolerated with TCC without any complaints but there appears to be a small area of erythema over the right 5th MTPJ. He notes his blood sugars are typically below 120 and his A1c last week was 7.4. 12/13/13 The patient has no complaints regarding his TCC nor his plantar ulcer. 12/11/13 The patient returns for placement of a TCC today. He does not report any new problems regarding is plantar ulcer. 12/03/13 The patient states his plantar ulcer drainage is stable and he's continued to not use a cut-out foam doughnut over the ulcer. 11/26/13 The patient has kept the foam dressing in place from the last visit and has not used a cut-out foam dressing which we felt caused some deterioration of the foot ulcer. He has some mild drainage but no pain. 11/22/13 The patient returns for review of his plantar ulcer and callus that seems to be deteriorating despite an adjustment to his boot and off loading measures. The patient reports his callus accumulation is in spite of daily kerasal applications. Patient reports a new small wound on the left second toe. Josue states that it might be related to the brace. Patient had brace modified to help off load. 11/06/13 Josue states he was able to schedule with the prosthetic doctor tomorrow at noon. He reports no new problems or concerns. He also says that he is done with physical therapy since yesterday as insurance will not cover it any longer. 10/31/13 The patient reports he received his dressing supplies. Dressings changes are going well and no new problems are reported. He saw his radiation oncology therapist, Dr. Solitario, on Monday for a check up and had and x-ray of the foot. 10/24/13 Josue reports he has been staying off of his feet as much as possible. He has been changing the dressing as ordered and states there has been just a small amount of drainage. He recently ran out of his dressings and will need more ordered or the balance sent home with him. 10/17/13 Patient states he has no new problems or concerns. He did have a small increase in drainage the other day but he had walked more than normal the day before. 10/09/13 Josue states he has no new issues. Dressing changes are going well. 10/02/13 Josue states there have been no new issues with dressing changes. They have been changed once since his last visit. No complaints of pain with the wound. 09/20/13 Josue was discharged from wound care September 05. States that he has been using pumice stone on callus area where had previous wound and may have been too aggressive. Also has been on feet more and having increase in lower extremity edema. Continues to wear the tetragrip F he had received in the clinic 6 hours per day but has not ordered any yet. 09/27/13 Patient states that there have been no issues with using the tetra cleaner carpet and upholstery. Asking about getting compression stockings from drug store for continued use. 09/05/13 Patient states he has set up physical therapy for the problems with his knee. He starts these treatments on 09/11. There has been no new issues with his wound and he changes the dressings about every two days. He reports little to no drainage. 08/06/13 States no new problems with wound area. Been using kerosol daily. 08/19/13 Patient states he twisted his knee a week ago, and it is effecting his walk slightly. He also complains of more edema in his legs, and has an appointment with his PCP tomorrow regarding the issue. No new problems or concerns with his wound. No new problems or concerns. Patient states he changed the dressing a few times this last week. Saw Dr. Solitario this past week for check up with no change o his management. 07/26/13 The patient has had new brace for one week and so far it is working out well. No other complaints at this time. 07/18/13 Patient got brace for foot and leg yesterday. No problems or concerns. 07/11/13 No problems or concerns. Changed dressing twice since last visit 07/04/13- Pt went to his PCP and his lasix were increased from 20mg to 40mg. He states his edema has decreased since then. Pt's diabetic foot brace (decreases lateral movement to reduce pressure on the sides of his feet) will arrive in about another week. 06/20/13- Pt reports increased edema in his feet for the last week, he has been walking more, but also sitting with his feet down more. With the increase in exercise he states his back has been hurting. On Sunday 06/18 pt went to [facility],and had his ankle brace fitting. 05/31/[address] Green this am. Changed dressing twice this week. Saw belly roller (in [place]) on Monday. Considering ankle brace 05/24/13 states started walking program at 5 minutes at a time and taking the bus to clinic apt. 11/08/12 Pt is changing dressing every two days. Is concerned about the edema to the left leg that had the cellulitis. States it is warm. 11/15/12 patient has been having more nerve pain. He has been changing his dressing either every day or every other day. 11/22/12- Patient continues to change dressing about every day. No problems noted. Patient changing dressing about q o day. Thinks wound is less deep. 12/07/12 Pt only changed dressing twice since last visit. No concerns or problems. 12/18/12 When cleaning wound was able to aspirate large purlent sero-sang fluid from site. Pt states he feels it was doing better. 12/24/12 Decreased drainage and pt states he feels the wound is doing well. 12/31 Pt states he has had decreased draiange from wound. Pt denies pain. 01/07/13Pt states the kerasol didn't really do much, but admits he was only applying it every other day and is not sure what his expectations should be. He believes he may have bumped a toe on the left foot and has been concerned about some bruising there but admits it is getting better. Still does not have his new shoes and says he is exploring other options like disability. 01/21/13 feeling well since last visit. feels he may have bumped third toe so wants it to be seen. Level 2- 3 neuropathic pain in right foot 02/27/12 Patient changing bandaid on foot and applying kerasol every three days. Patient got new PCP and saw him yesterday. Patient states things are going well with the wound. 03/12/[address] Green for edema and will see him tomorrow for follow up.03/25/13 states has drainage from bottom of foot. concerned about new wounds Sates he changes dressing every 2 days. Changed this AM as it came off. Using Ca alginate and foam. States no drainage last night 04/19/13 changes dressing every 2-3 days. no problem. Has appt with Dr. Solitario 04/30/13 and new shoes have arrived. To be fitted next week 04/26/13 Is wearing new shoes and states they are working well.Changed dressing twice this week 05.03.[address] Solitario last week. will see again in [address] Green started antibiotic for sinus infection States sinuses not a lot better. Has started Lakshmi D, helping some. States wound about same. Changing dressing 2 x this week as dressing came off. States added collagen one time. Family History This information was obtained from the patient Cancer - Mother, Heart Disease - Father Social History This information was obtained from the patient Never smoker, Alcohol Use - none, Caffeine Use - 1 per day, Children - none, Lives in - fpc community, Marital Status - single, Mental health concerns - none, Occupation - unemployed, Substance Abuse - none, Support Systems Lacking - sister lives in town, but has health problems Past Medical History This information was obtained from the patient Patient has a medical history of: Left lower extremity cellulitis - 10/15/2012 Diabetic foot ulcer - 09/27/2013 (Hernandez grade 2; right plantar surface; Hernandez grade III (Enterobacter positive wound culture 02/03/14), lateral right 5th MTPJ originally dx 12/24/13; MRSA positive culture 06/04/14 ) Chronic venous hypertension Type II Diabetes Hypertension Morbid Obesity Kidney Stones Hx MRSA Diabetic neuropathy Hallux valgus (right 1st toe) UTI (hospital admit) Cellulitis of legs (June and September 2012- hospital admit) Cataract surgery (10/13/15) Diabetic Neuropathy Complaints and Symptoms This information was obtained from the patient Patient complains of: General Notes: I have reviewed and concur with the Review of Systems and Past Family Social History documents completed by the clinician, I have reviewed and concur with the Wound Assessment document completed by the clinician Cardiovascular (Central/Peripheral): Lower extremity (leg) swelling Integumentary (Hair/Skin/Nails): Open Sore Musculoskeletal: Deformities, Muscle Weakness Neurological: Abnormal Gait, Loss of Protective Sensation Prior Wound History: Bleeding, Drainage Patient denies complaints or symptoms related to: Cardiovascular (Central): Irregular heart beat Cardiovascular (Central/Peripheral): Lower extremity (leg) resting pain Constitutional Symptoms (General Health): Chills, Fever, Marked Weight Change Ear/Nose/Mouth/Throat: Hearing Loss / Aid Gastrointestinal (GI): Nausea / Vomiting Hematologic/Lymphatic: Bleeding / Clotting Disorders, Bleeding Tendency Musculoskeletal: Assistive Devices Prior Wound History: Erythema, Malodor, Pain Psychiatric: Memory Loss Respiratory: Oxygen Use, Shortness of Breath OBJECTIVE Constitutional Vital signs reviewed. Elevated blood sugar noted. Well developed, lucid, and in no acute distress. . Height/Length: 71 in (180.34 cm), Weight: 358.5 lbs (162.95 kgs), BMI: 50, Temperature: 99.1 ?F (37.28 ?C), Pulse: 85 bpm, Respiratory Rate: 18 breaths/min , Blood Pressure: 151/80 mmHg, Capillary Blood Glucose: 155 mg/dl, Pulse Oximetry: 98 %. Vital Signs Notes: Per Patient Glucose Ears, Nose, Mouth, and Throat: Grossly intact. Respiratory: No respiratory distress. Even respirations and without use of accessory muscles.. Cardiovascular: 2+ bilateral lower leg edema with hemosiderin staining. Gastrointestinal (GI): Obese. Nondistended.. Integumentary (Hair, Skin) Refer to appropriate clinician wound documentation for this visit; ulcer extends to subcutaneous fat layer. . Wound #6 Right, Plantar Foot is a chronic Hernandez Grade 2 Diabetic Ulcer and has received a status of Not Healed. Subsequent wound encounter measurements are 1.2cm length x 0.4cm width x 0.2cm depth, with an area of 0.48 sq cm and a volume of 0.096 cubic cm. No tunneling has been noted. No sinus tract has been noted. No undermining has been noted. There is a moderate amount of sero-sanguineous drainage noted which has no odor. The patient reports a wound pain of level 0/10. The wound margin is callus. Wound bed has No epithelialization, No eschar, No slough, Yes pale kat, pink, firm granulation. The periwound skin moisture is normal. The periwound skin color is normal. The periwound skin exhibited: Callus. The periwound skin did not exhibit: Brawny Induration, Edema, Excoriation, Induration, Crepitus, Fluctuance, Friable, Rash. The temperature of the periwound skin is WNL. Periwound skin does not exhibit signs or symptoms of infection. Local Pulse is Palpable. Psychiatric: Judgement and insight: Normal affect with normal thought pattern. Alert and oriented 3/3. Memory grossly intact.. Normal affect. Mood appropriate.. 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 A skin/ subcutaneous tissue level surgical debridement with a total area debrided of 0.6 sq cm was performed by Epifanio Pinto PA. Subcutaneous was removed along with devitalized tissue: callus, exudate, and slough. The following instrument(s) were used: curette. Pain control was achieved using 4% Lido. A time out was conducted prior to the start of the procedure. A minimal amount of bleeding was controlled with n/a. The procedure was tolerated well with a pain level of 0 throughout and a pain level of 0 following the procedure. Post Debridement Measurements: 1.2cm length x 0.5cm width x 0.3cm depth; with an area of 0.6 sq cm and a volume of 0.18 cubic cm; Additional Information Muscle fascia or bone removed and sent to pathology?: No PLAN Wound Orders: Wound #6 Right, Plantar Foot Anesthetic Topical Xylocaine to wound bed. - In clinic only. Cleanser Cleanse Wound: - Normal saline and gauze. May Shower. - Do not get wound wet with tap water. Use cast protector when showering. Topical Treatments Antibiotic/Antimicrobial Ointment/Cream. - Iodosorb. Barrier ointment to protect surround skin. - Kerasal to callus. Dressings Primary dressing: - Foam. Cover and secure with: - Hypafix tape. Change Dressing: - Every other day. Additional Orders: Off-Loading Keep weight off: - Right foot as much as possible. Use Knee scooter when able. Use/Wear when Walking: - Offloading shoe. Compression/Edema Control Elevation of leg(s) above the level of the heart when sitting. Avoid prolonged standing in one place. - Please avoid standing or walking for long periods of time. Knee-high gradient compression stockings. - Tetragrip F stockings to both legs. On in the morning and off at night. Follow-Up Appointments Return Appointment: - - Tuesdays and Fridays for callus removal. Other information: If you develop fever, chills, increased pain, drainage, redness or swelling please call our office. If after hours, respond to the ER. Should you experience any significant changes in your wound(s) or have any questions regarding your home care instructions please contact the wound center @ [phone]. If after hours, contact your primary care physician or go to the hospital emergency room. Scribing Attestation I attest, as the nurse, that I scribed these orders for the physician. I've reviewed the clinician's documentation and agree with the evaluation and plan as written. In addition the patient's ulcer demonstrates evidence of non-viable devitalized tissue which benefits from sharp debridement. Separate from the need for debridement today to speed healing, the patient's diabetes was assessed, as good blood sugar control reduces the risk of infection and improves soft tissue healing. The patient was enouraged to continue to comply with a diabetic diet, medications and continue to regularly follow up with primary care to maintain good control of this issue. Electronic Signature(s) Signed By: Date: Jean-Pierre Pinto 08/13/2017 13:49:03 Entered By: Jean-Pierre Pinto on 08/13/2017 12:59:05
== END ==
PROVIDERS: PCP Family Medicine; Visit Provider Physician Assistant
DX: E11.621 Type 2 diabetes mellitus with foot ulcer (principal); L97.512 Non-pressure chronic ulcer of other part of right foot with fat layer exposed; E11.65 Type 2 diabetes mellitus with hyperglycemia
CPT/HCPCS: 11042

== ENCOUNTER → 2017-08-11 09:23 | Outpatient (CLI) | payer MEDICARE, OTHER, SELFPAY ==
--- NOTE | 2017-08-11 | OV.WND_ITS ---
Progress Note Details Patient Name: Josue Mesa Patient Number: [id number] PatientPatientDate: 08/11/2017 Clinician: Fay Moncada Clinician Cosigner: Janel Daly Physician / Brick Paver: Epifanio Pinto SUBJECTIVE Chief Complaint This information was obtained from the patient Diabetic ulcer to right plantar foot. Allergies Augmentin (Severity: Mild, Reaction: nausea) HPI This information was obtained from the patient 08/11/17. Seen by Jean-Pierre Pinto PA-C. The patient reports stable drainage from his right foot diabetic ulcer. Again his blood sugars have been above 150 since his last visit. 08/08/17. Seen by Jean-Pierre Pinto PA-C. The patient reports no increase in drainage from his right foot diabetic ulcer. His blood sugars this week have reportedly been mostly above 150. 08/04/17. Seen by Dr. Nice. The patient does not report increased drainage associated with the chronic right plantar foot diabetic ulcer since his last visit and he's offloading appropriately as recommended. He also was seen by Dr. Solitario, podiatry, who discussed possible surgical options to address the severe right 1st toe valgus deformity that's complicating the ulcer and contributing to heavy periculcer callus formation however there's no plan of intervention at this time. 08/01/17. Seen by Dr. Nice. The patient does not report increased drainage associated with the chronic right plantar foot diabetic ulcer since his last visit and he's offloading appropriately as recommended. 07/28/17. Seen by Dr. Nice. The patient does not report increased drainage associated with the chronic right plantar foot diabetic ulcer since his last visit and he's offloading appropriately as recommended. We've increased his visits to twice weekly due to the very heavy callus formation that's contributing to the refractory nature of the ulcer. 07/25/17. Seen by Dr. Nice. The patient does not report increased drainage associated with the chronic right plantar foot diabetic ulcer since his last visit and he's offloading appropriately as recommended. Kerasal is not being applied to the periulcer callus and his visits have been decreased to once weekly over the past few weeks while the ulcer has been improving. 07/18/17. Seen by Dr. Nice. The patient does not report increased drainage associated with the chronic right plantar foot diabetic ulcer since his last visit and he's offloading appropriately as recommended. 07/11/17.Seen by Dr. Nice. The patient has been wearing his offloading shoe and using a knee scooter as recommended and does not report significant drainage associated with the chronic right plantar foot diabetic ulcer since his last visit. 07/04/17. Seen by Dr. Nice. The patient has been wearing his offloading shoe as recommended and does not report significant drainage associated with the chronic right plantar foot diabetic ulcer since his last visit. 06/30/17. Seen by Dr. Nice. The patient has been wearing his offloading shoe as recommended and does not report significant drainage associated with the chronic right plantar foot diabetic ulcer since his last visit. 06/27/2017. Seen by Dr. Nice. The patient has been wearing his offloading shoe as recommended and does not report significant drainage associated with the chronic right plantar foot diabetic ulcer since his last visit. His blood sugars are also mostly below 100 now and he's using his knee scooter as well to further optimize offloading. 06/23/2017. Seen by Dr. Nice. The patient does not report pain nor increased drainage associated with the chronic right plantar foot diabetic ulcer since his last visit. He is wearing his offloading shoe as recommended now and his blood sugar control has improved with some below 200. 06/20/2017. Some by Dr. Nice. The patient is not report increased drainage position with chronic right plantar foot diabetic ulcer since last visit. He is now clindamycin for the resistant Staphylococcus haemolyticus positive culture that was taken to the last visit. His blood sugars continued to be elevated and or over 300 earlier this morning despite having his Lantus dose increased recently. He is also wearing his diabetic shoes but not an offloading surgical shoe as I have been recommending. 06/16/17. Seen by Dr. Nice. The patient does not report increased drainage associated with chronic right plantar foot diabetic ulcers since his last visit. His recent wound culture grew a resistant coag negative staph organism. He also met with his primary care provider, Dr. Green, to increase his dosing of Lantus and plans to work with him on dietary measures to help gain better control of his elevated blood sugars. 06/13/17. Seen by Dr. Nice. The patient's blood sugars again are over 300 today and his appointment with his primary care provider to address this. He does not report any acute changes regarding the chronic right plantar foot diabetic ulcer and is using his knee scooter to help facilitate offloading as much as possible. 06/09/17. Seen by Dr. Nice. The patient does not report significant drainage associated with the chronic right plantar foot diabetic ulcer since his last visit. 06/06/17. Seen by Dr. Nice. The patient does not report significant drainage associated with the chronic right plantar foot diabetic ulcer since his last visit and he's lost another 7 lbs since increasing his dose of Lasix due to abnormal weight gain and significant bilateral lower extremity edema. 06/02/17. Seen by Dr. Nice. The patient does not report significant drainage associated with the chronic right plantar foot diabetic ulcer since his last visit. His increase his dose of Lasix and has lost 7 pounds over the past 3 days. This is been done due to the significant increase in leg swelling over the past 2 weeks. 05/30/17. Seen by Dr. Nice. The patient does not report increased drainage associated with chronic right plantar foot diabetic ulcer since his last visit however he does feel that the right foot and leg are swelling considerably over the past few days. We note a 4 pound weight gain since his last visit on Monday and he states is taking his diuretic as prescribed. 05/26/17. Seen by Dr. Nice. The patient does not report increased drainage associated with chronic right plantar foot diabetic ulcers since his last visit. His culture grew a somewhat resistant coag negative staph and he is not currently on antibiotics. 05/23/17. Seen by Dr. Nice. Staff reports some increased drainage on his dressings covering the chronic right plantar foot diabetic ulcer today. His blood sugar is again over 300 and he states he is eating rice and potatoes trying to cut back. He continues offload with his knee scooter as recommended and does not report pain or any other acute ulcer related issues today. 05/19/17. Seen by Dr. Nice. The patient does not report increased pain or drainage associated with chronic right plantar foot diabetic ulcer since his last visit. He is using his knee scooter as recommended and has had significant problems with heavy callus at the site due to a severe right first toe valgus deformity. He is now attending clinic twice weekly for debridement of the ulcer and complicating callous. 05/16/17. Seen by Dr. Nice. The patient does not report increased drainage or pain associated with chronic right plantar foot diabetic ulcer since his last visit. Of note, the patient's blood sugar as 271 today and his A1c was 9.8 in March. 05/12/17. Seen by Dr. Ncie. The patient does not report increased pain or drainage associated with chronic right plantar foot diabetic ulcer since his last visit. He is using his knee scooter to help offload the site which is particularly important based on patient's morbid obesity coupled with his severe first MTPJ valgus deformity. 05/09/17. Seen by Dr. iNce. The patient does not report increased drainage or pain associated with the chronic right plantar foot diabetic ulcer since his last visit. He states his blood sugars continue to be above 200 consistently although are improving with compliance to a lower carbohydrate type diet. He was started on metformin about a month ago he complains of some intermittent upper extremity weakness since then and will be discussing this with his primary care provider. He is also awaiting his new diabetic shoes that are being adjusted to help accommodate for his severe right first toe valgus deformity. 05/02/17. Seen by Jean-Pierre Pinto PA-C. The patient reports stable drainage from his right 1st toe ulcer and blood sugars continue to be above goal. 04/25/17. Seen by Jean-Pierre Pinto PA-C. The patient reports his blood sugars have been above 150 this week. He does not report increased drainage from his right 1st toe diabetic ulcer. 04/18/17. Seen by Dr. Nice. The patient does not report increased drainage associated the chronic right first toe diabetic ulcers since his last visit. 04/11/17. Seen by Jean-Pierre Pinto PA-C. The patient reports he is developing more calloused areas on his feet and is concerned about new ulcers occurring. His chronic 1st toe diabetic ulcer has been stable. 04/04/17. Seen by Jean-Pierre Pinto PA-C. The patient reports he has not been able to get his blood sugars below 150. Drainage is reportedly decreased from his diabetic foot ulcer. 03/30/17. Seen by Jean-Pierre Pinto PA-C. The patient reports continued high blood sugars, all above 150. Drainage from his ulcer is not increased. 03/23/17. s Seen by Jean-Pierre Pinto PA-C. The patient reports blood sugars above 150 again this week. He is concerned that something must be going on with an infection as he believes his diet has not changed and thus his sugars should be lower. His wound has had stable drainage. 03/15/17. Seen by Jean-Pierre Pinto PA-C. The patient reports he has had some blood sugars above 150 this week. He reports no increase in drainage from his right 1st toe diabetic ulcer. 03/08/17. Seen by Dr. Nice. The patient was discharged from the hospital recently following treatment for cellulitis associated with the chronic right first toe diabetic ulcer. He grew MRSA from the wound culture and was treated with IV vancomycin and is now on Bactrim. He does not report pain nor significant drainage associated with the ulcer nor side effects from antibiotics. 02/23/17. Seen by Dr. Nice. The patient does not report increased drainage associated the chronic right first toe diabetic ulcers since his last visit. The patient also states that he is more active over the holidays and was unable to use his knee scooter at times while walking outside due to safety concerns. 02/08/17. Seen by Dr. Nice. The patient does not report increased drainage associated the chronic right first toe diabetic ulcers since his last visit. He states he is using his offloading shoe when at home and a knee scooter went out. 02/01/17. Seen by Dr. Nice. The patient does not report increasing pain or drainage associated with chronic right first toe diabetic ulcer since his last visit. 01/25/17. Seen by Dr. Nice. The patient does not report increasing pain or drainage associated with chronic right first toe diabetic ulcer since his last visit. 01/18/17. Seen by Dr. Nice. The patient does not report increasing pain or drainage associated with chronic right first toe diabetic ulcer since his last visit. Of note, the patient's blood sugar is over 260 again today and he admits that it's been significantly elevated for a number of weeks. He has an appointment with his primary care provider to discuss this next week. 01/11/17. Seen by Dr. Nice. The patient does not report increasing pain or drainage associated with chronic right first toe diabetic ulcer since his last visit. He states his blood sugars have been running high recently and he is going to follow-up with his primary care provider in the near future to address this. 01/04/17. Seen by Dr. Nice. The patient does not report increased drainage associated with chronic right first foot diabetic ulcers since his last visit. He's also been applying Kersal to the periulcer as recommended. 12/28/16. Seen by Dr. Nice. The patient does not report increased drainage associated with chronic right first foot diabetic ulcers since his last visit. 12/22/16. Seen by Dr. Nice. The patient does not report increased drainage associated with chronic right first foot diabetic ulcers since his last visit. He's not been applying Kersal to the periulcer callus and does not appear to be using his knee scooter at all times to offload the ulcer. 12/15/16. Seen by Jean-Pierre Pinto PA-C. The patient reports he continues to have blood sugars above 150 this week. He recently saw his PCP, they did not alter his diabetic care plan. His visit was a follow up for an ER visit for chest pain which was negative for GA and was thought to be epigastric in origin. His diabetic ulcer of the right foot has not had increased drainage. 12/06/16. Seen by Jean-Pierre Pinto PA-C. The patient reports that he has found his knee scooter and plans to start using it today. He also reports most of his blood sugars have been above 150. Drainage from his ulcer has been stable. 11/25/16. Seen by Dr. Nice. The patient does not report increased drainage associated with chronic right first foot diabetic ulcers since his last visit. He is now on antibiotics for wound infection and does not report adverse side effects. Of note, he is not yet using a knee scooter nor offloading shoe as we recommended last week. 11/18/16. Seen by Dr. Nice. The patient returns to our clinic and presents with recurrence of a right first MTPJ plantar diabetic ulcer. He states it started a couple weeks ago when he was attempting to remove overlying callus at home. He does not report significant drainage or pain associated with the ulcer and is not currently on antibiotics. He also states his recent A1c was 7.8. His blood sugar in clinic today is 250. 01/11/16 Seen by Jean-Pierre Pinto PA-C. The patient reports no drainage from his chronic right 1st MTPJ joint since his last dressing change. 01/04/16 Seen by Jean-Pierre Pinto PA-C. The patient reports minimal drainage from his chronic right 1st MTPJ ulcer. He has recently seen his PCP and his A1c was 7.7. His lower extremity edema, abnormal weight gain and kidney failure are stable with his diuretics recently being adjusted. 12/28/15. Seen by Dr. Nice. The patient does not report significant drainage associated with the chronic right 1st MTPJ diabetic ulcer since his last visit however he does complain of increasing shortness of breath, fatigue, and an 18lb weight gain over the past week despite taking his diuretics as recommended. He does not report chest pain or cough and his blood sugars remain relatively well controlled with most below 150. 12/16/15. Seen by Dr. Nice. The patient does not report significant drainage associated with the chronic right 1st MTPJ diabetic ulcer since his last visit. He's applying kerasal to the surrounding callus as recommended and offloading nearly at all times using his knee scooter. 12/07/15 Seen by Jean-Pierre Pinto PA-C. The patient reports compliance with his new offloading brace and shoe and has seen minimal drainage from his diabetic foot ulcer since his last visit. 11/30/15. Seen by Dr. Nice. The patient does not report significant drainage associated with the chronic right 1st MTPJ diabetic ulcer since his last visit and he's wearing a combined AFO / diabetic shoe system that he feels may be better offloading the ulcer. 11/23/15 Seen by Jean-Pierre Pinto PA-C. The patient reports that he is wearing his new diabetic shoes and inserts. He is continuing physical therapy for gait training and reports continued difficulty with stairs and occasional bouts of dizziness. He reports stable drainage from his chronic right foot diabetic ulcer. 11/16/15 Seen by Jean-Pierre Pinto PA-C. The patient reports stable drainage from his right foot diabetic ulcer. He also reports that his diabetic shoes and inserts are quite old and worn out. He is ambulating with is 4 wheeled walker and is working with PT for gait training. 11/09/15 Seen by Jean-Pierre Pinto PA-C. The patient reports that he is still using a 4 wheeled walker instead of a 4 footed walker. PT is working with him to improve his gait and balance. Drainage from his right foot ulcer has been stable. 11/02/15 Seen by Jean-Pierre Pinto PA-C. The patient reports no increase in drainage from his chronic diabetic foot ulcer. He has had multiple blood sugars above 150 this week. 10/29/15. Seen by Dr. Nice. The patient was recently discharged from [facility] following treatment of sepsis thought to possibly be related to his chronic right 1st MTPJ diabetic ulcer that grew Enterococcus just prior to his admission. He now feels generally weak , has lost 18 lbs following diuresis, and is residing at home where he's minimizing his weight bearing on the right foot. He does not report significant drainage from the ulcer nor pain and states his blood sugars remain mostly around 150. He also continues on levofloxacin and does not report adverse side effects. 10/14/15. Seen by Dr. Nice. The patient report persistent bloody drainage from the chronic right 1st MTPJ diabetic ulcer and he feels the callus has increased significantly since it was last debrided 2 week ago. He does not report fevers or feeling unwell and states his blood sugars are well controlled with most below 150. He's using his AFO when walking nearly at all times to facilitate offloading the significant right 1st MTPJ valgus deformity. 09/24/15 Seen by Jean-Pierre Pinto PA-C. The patient reports that he is no ran out of lasix due to a mix up at the pharmacy and unavailability of his strength/dose of tablets. He continues trying to offload his ulcer with his wheeled walker and notes stable ulcer drainage. 09/17/15. Seen by Dr. Nice. The patient continues to report some bloody drainage from the chronic right 1st MTPJ diabetic ulcer and he's started reducing his activity and continues to use his knee scooter at home to offload the foot. 09/10/15. Seen by Dr. Nice. The patient states he was more active over the past week and notices increased bloody drainage associated with chronic right first MTPJ diabetic foot ulcer. He continues to wear his AFO and states his blood sugars are mostly below 150. 09/03/15. Seen by Dr. Nice. The patient does not report significant drainage associated with the chronic right first MTPJ diabetic ulcer over the past week. He does feel that the callus smaller than on previous visits and is wearing his AFO at all times. Of note, he 's now in doxycycline to treat the recent coag negative Staph cultured from the ulcer at his last visit. 08/27/[address] Nice. The patient reports increase bloody drainage associated with the chronic right foot 1st MTPJ diabetic ulcer and he feels his activity has increased due to physical therapy and increased mobility over the past week. He does not report pain at the ulcer site, fevers, or feeling unwell in general. 08/20/[address] Nice. The patient does not report significant drainage associated with the chronic right foot 1st MTPJ diabetic ulcer over the past week and he's using a knee scooter as much as possible when mobilizing to offload the foot. His blood sugars also remain relatively well controlled with most below 150. 08/13/[address] Nice. The patient does not report significant drainage associated with the chronic right foot diabetic ulcer over the past week and he's offloading using a knee scooter as recommended. His blood sugars remain relatively well controlled with most below 150. 08/06/[address] Nice. The patient reports recurrence of some drainage from the chronic right foot diabetic ulcer over the past few days and states he's been more active with physical therapy. His blood sugars remain well controlled with most below 150 and he's wearing his AFO when away from the house and using a knee scooter most of the time while at home to facilitate offloading. He's also applying Kerasal to the callus in the periwound area as recommended. 07/23/[address] Nice. The patient does not report drainage from the chronic right 1st MTPJ diabetic ulcer over the past week and he's using his new AFO and knee scooter to offload the foot. 07/16/[address] Nice. The patient does not report pain or drainage from the chronic right 1st MTPJ diabetic ulcer and he's wearing his newer AFO while offloading with a knee scooter most of the time. 07/09/[address] Nice. The patient does not report drainage or pain associated with his chronic right foot 1st MTPJ diabetic ulcer and he's been offloading by using a knee scooter when mobilizing. His content developer is present today as well to discuss possible adjustments to his AFO with the goal of reducing callus formation that's in part caused by his significant right 1st toe valgus deformity. He also states his blood sugars remain well controlled below 150 consistently. 07/03/[address] Nice. The patient does not report significant drainage from the chronic right foot diabetic ulcer and he's offloading by using his knee scooter. His blood sugars also remain relatively well controlled around 150 consistently. 06/26/[address] Nice. The patient report some continued bloody drainage from the chronic right 1st MTPJ diabetic ulcer however he does not report associated pain , fevers or feeling unwell. His blood sugars remain consistently below 150 and he's using his walker and knee scooter for offloading as recommended. He's also been actively working with his content developer in hopes of better offloading the ulcer and address his significant callus formation and left 1st MTPJ valgus deformity. 06/19/[address] Nice. The patient does not report pain associated with his chronic right 1st MTPJ diabetic ulcer however he states some bloody drainage persists on the dressings. He does not report fevers or feeling unwell and states his blood sugars are well controlled below 150 consistently and he's using a knee scooter and walker to offload the ulcer when mobilizing. He also does not report pain or drainage associated with the left 2nd toe wound. 06/11/[address] Nice. The patient was recently discharged from [facility] following a fall at home that resulted in a broken rib. Regarding his chronic right 1st MTPJ diabetic ulcer he does not report significant drainage and has been offloading through bed rest and using a knee scooter while at home. His blood sugars also remain well controlled with most below 150. He also reports a new wound on the dorsum of the left 2nd toe that he believes occurred during his fall. He does not report associated pain or significant drainage. 05/28/[address] Nice. The patient reports some increased bloody drainage from the chronic right 1st MTPJ diabetic foot ulcer over the weekend associated with a new 'soft' area along the distal margin. He's been more active the past the past few days but states he's using his knee scooter to offload at all times. His blood sugars also remain well controlled with most around 120 and he's no longer on antibiotics. He also continues to wear his old AFO but states there was a recent adjustment of a cut out lined with 'soft' plastic in the area of the ulcer. 05/21/[address] Nice. The patient report less drainage from the chronic right foot 1st MTPJ diabetic ulcer over the past week. He's completed his course of doxycycline and he continues on fluconazole for the recent Alma Delia positive wound culture. He's also reverted back to using his previous AFO while his newer one is adjusted to try to address the recent significant increase in callus formation that's occurred. His blood sugars also remain well controlled under 150 consistently and his recent episodes of hypoglycemia has resolved with an adjustment of his insulin regimen. 05/14/[address] Nice. The patient reports less drainage on the dressings covering the chronic right 1st MTPJ diabetic ulcer since starting doxycycline for a coag negative Staph wound culture along with fluconazole for the alma delia positive culture. His blood sugars remain well controlled below 120 and his insulin has been decreased due to the recent episodes of hypoglycemia. His diuretic has also been decreased as he's lost considerable water weight over the past month. 05/07/[address] Nice. The patient continues to report modest bloody drainage on the dressing covering the chronic right 1st MTPJ diabetic ulcer and he continues to limit his walking but has not been using a knee scooter or walker around the house to facilitate offloading. His blood sugars remain well controlled mostly below 150. 04/30/[address] Nice. The patient continues to report bloody drainage on his right foot diabetic ulcer dressing and he's feeling a bit unwell in general without reporting specific symptoms. He also continues to have intermittent low blood sugars in the 50-60' s and has not discussed this issue with his PCP recently. He's wearing his AFO daily but admits to having difficulty using his walker at all times due to limited space in his new apartment. 04/27/15 Seen by Jean-Pierre Pinto PA-C. The patient reports nonspecific malaise for the past few days. Last night, he reports feeling to tired, weak and shaky to watch TV and went to bed very early. His malaise has been increasing over the past 1-2 weeks and he has frequently been monitoring his blood sugar. His blood sugars are lower than normal lately but never below 100. He has been reducing his insulin dosing in the past 2 weeks to compensate for the lower numbers. He continues to loose weight while continuing to take Lasix and metolazone. 04/23/[address] Nice. The staff and patient continue to report at least moderate serosanquinous drainage from the chronic right 1st MTPJ diabetic ulcer. His blood sugars have been well controlled over the past week with most below 150. He does report being more active than usual while he's been moving to his new home and he also states he continues to loose weight following a recent increase in his diruetics. His wound culture from the last visit reported heavy Diptheroids and he's not currently on antibiotics. 04/20/15 Seen by Jean-Pierre Pinto PA-C. The patient reports that he has moved house and has been on his feet much more so as a consequence. He reports increased drainage from his right plantar foot diabetic ulcer. In addition he believes he struck it against a hard surface when moving. He has had no significant pain with weightbearing but is insensate in this area. 04/15/[address] Nice. The patient reports continued weight loss, and decreasing leg swelling, since starting metolazone totaling about 20 lbs. He also feels the chronic right 1st MTPJ diabetic ulcer has been draining increasing amounts of sanguinous fluid. His blood sugars remain well controlled with most below 120 and he does not report fever or feeling unwell. 03/25/[address] Nice. The patient states he walked a considerable amount yesterday and now reports some bleeding from the chronic right 1st MTPJ diabetic foot ulcer. He also continues to report increased weight gain and now some shortness of breath when walking short distances. He has a low grade fever today but does not report a cough or feeling unwell otherwise. 03/11/2015 Seen by Jean-Pierre Pinto PA-C. The patient's weight has increased 10 lbs in the past week. He reports increased shortness of breath with exertion. He denies chest pain, jaw, neck, shoulder pain or shortness of breath at rest. He has been compliant with his diuretics. His ulcer drainage has been stable. 03/04/2015 Seen by Jean-Pierre Pinto PA-C. The patient is wearing his newly adjusted AFO and reports an increase in walking since last visit. He was unaware that his temperature was elevated and reports no URI symptoms such as cough or sore throat. 02/24/2015 Seen by Jean-Pierre Pinto PA-C. The patient believes his ulcer has now been draining more despite trying to offload the ulcer. 02/11/[address] Nice. The patient reports less drainage from the chronic right 1st toe diabetic ulcer and he's still waiting for approval for his new AFO. 02/04/[address] Nice. The patient feels the drainage from the right 1st MTPJ ulcer has decreased since last week and he's scheduled to see Dr. Solitario tomorrow to review his foot deformity and recurrent callus formation at the site of the ulcer. 01/30/[address] Nice. The patient returns to clinic and reports recurrence of the recently healed right 1st MTPJ diabetic foot ulcer with new moderate drainage and significant callus formation. He's not yet re-established with Dr. Solitario, podiatry, due to insurance issues and is awaiting approval for an adjustment for his AFO. His blood sugars remain controlled below 150 mostly and he does not report pain in the foot or fevers. 01/12/[address] Nice. The patient does not report drainage from the right 1st toe MTPJ ulcer and he's scheduled to have his new AFO fitted this week. 01/05/[address] Nice. The patient does not report drainage associated with the right 1st MTPJ diabetic foot ulcer however he states he has had some intermittent, very brief 'shooting' pain at the site of the ulcer the past few days. His blood sugars also remain between 120 and 150 mostly. 12/29/[address] Nice. The patient does not report drainage from the chronic right 1st MTPJ diabetic foot ulcer and he offloads using a walker and surgical shoe at all times except for when he wears a slipper around his small apartment. 12/22/[address] Nice. The patient does not report significant drainage from the right 1st MTPJ diabetic foot ulcer and he states his blood sugars are still in the 150 range with some over 180. 12/10/[address] Nice. The patient does not report significant drainage from the right 1st MTPJ diabetic foot ulcer. 12/04/[address] Nice. The patient does not report any drainage from the chronic right 1st MTPJ diabetic foot ulcer and he's still waiting for insurance approval for a custom, articulating AFO. His blood sugars also remain relatively well controlled below 150 consistently. He also continues to apply Kerasal to the associated callus daily. 11/20/[address] Nice. The patient's been feeling unwell the past week and feels he may have lost as much as 10 lbs due to poor oral intake. Otherwise he does not report any new problems regarding his right 1st MTPJ plantar diabetic ulcer. 11/07/[address] Nice. The patient reports only scant drainage from the right plantar diabetic foot ulcer. He's been offloading as recommending with a walker and is awaiting a approval for an articulating AFO. His blood sugars remain mostly well controlled below 150. 10/31/14 Seen by Jean-Pierre Pinto PA-C. The patient feels he has reached another plateau with regard to his wound healing. His right plantar diabetic ulcer continues to drain and has not improved recently. He is wearing his brace and reports compliance with offloading. 10/21/[address] Nice. The patient reports only scant drainage from his right 1st plantar surface MTPJ diabetic foot ulcer. He continues to offload with a frame walker and his blood sugars are moderately well controlled with most below 150. 10/14/[address] Nice. The patient does not report significant drainage from the right 1st plantar MTPJ ulcer. Of note, when discussing his blood sugars he mentions he's on both 70/30 insulin as well as Lantus and he frequently has blood sugars in the 150-200 range. 10/07/[address] Nice. The patient reports some modest drainage from the right 1st MTPJ plantar ulcer but no pain, erythema, or swelling. His blood sugars are mostly below 150 and he offloads with his AFO. 09/30/14 Seen by Jean-Pierre Pinto PA-C. The patient reports continued compliance with his AFO and he is trying to offload. He is scheduled now with PT for gait training and knee strengthening. He reports his knee is still sore at times and he feels unstable at times when using his offloading devices and AFO. 09/23/[address] Nice. The patient reports only minimal drainage from the right plantar 1st MTPJ ulcer. 09/16/14 Seen by Jean-Pierre Pinto PA-C. The patient continues to use his AFO, offloading shoe, knee scooter and frame walker to offload his wound. 09/09/14 Seen by Jean-Pierre Pinto PA-C. The patient has been wearing his AFO and offloading shoe together, with the added padding as designed by Sahra BOYD of [facility]. He reports that he feels unsteady and that his knee has felt strained and he discontinued using the brace as he is concerned that he has, or will, re-injure his right knee. He also is having difficulty using his knee scooter with the brace. One year ago , while attempting to offload his foot he did injure his knee and required physical therapy to recover. 08/19/14 Seen by Jean-Pierre Pinto PA-C. The patient's weight is down 10 lbs from his previous visit. His twice daily naproxen has been discontinued by his PCP in an effort to reduce his lower extremity edema. 08/15/14 Seen by Jean-Pierre Pinto PA-C. The patient continues to have weight fluctuations and large amounts of weight gain in short periods of time despite increased diuretic usage. 08/04/14 Seen by Jean-Pierre Pinto PA-C. The patient has been taking his Levaquin and again reports to the clinic with a low grade fever. He reports nearly daily application of Kerasal and his weight and edema have been stable on a higher dose of diuretics. Blood sugars remain stable on his current diabetic medications. 07/21/14 Seen by Jean-Pierre Pinto PA-C. The patient does not report fever, chills or URI symptoms. His wound drainage has been stable. 07/16/[address] Nice. The patient reports persistent but minimal drainage from the right foot plantar ulcer and continues to offload with a walker at all times. His blood sugar are mostly below 150 with a few around 170 the past few days. 07/01/14 The patient reports that he has gained 8lbs in 8 days. Denies SOB. Does not report fever or chills. 06/23/[address] Nice. The patient continues to offload with a knee scooter and walker at all times. He does not report significant drainage from the right plantar foot ulcer. 06/20/[address] Nice. The patient has been offloading his right foot ulcer with a walker and reports less drainage over the past 2 days. He's now off of antibiotics and his blood sugars remain well controlled below 150. 06/11/[address] Nice. The patient reports persistent drainage from the right foot plantar 1st MTPJ ulcer and he completed his course of doxycycline which was started for a MRSA positive culture from the ulcer site. His blood sugars have also been a bit elevated above 150 recently. He does not report fever or chills however. 06/04/14 The patient reports difficulty in offloading his wound due to inability to use crutches due to poor balance. He find the wheelchair difficult to use and his knee scooter is not rated for his weight. He denies fever, chills or URI symptoms. 05/28/14 The patient's been attempting to offload with a knee scooter but is concerned it may not be appropriate or stable based on his weight. He does not report increased drainage from he right plantar 1st MTPJ ulcer and his blood sugars remain well controlled below 120. 05/21/14 The patient reports only minimal sanguinous drainage from his right foot plantar ulcer and has been offloading it by minimizing his walking. He's also completed a course of doxycycline that was given for a coag negative staph wound culture from the ulcer. He states his blood sugars are consistently below 120 and does not report hypoglycemia. 05/13/14 The patient reports minimal drainage from his right foot plantar ulcer. His recent wound culture from the site returned coag negative Staph and Diptheroids. 05/02/14 The patient reports less drainage from the right plantar foot ulcer and continues to off loading by minimizing walking and wearing a post-op shoe. 04/29/14 The patient continues to wear his surgical boot with the cutout for his right foot plantar diabetic ulcer. He reports no increase in drainage. 04/25/14 The patient reports minimal bloody drainage on the right foot plantar ulcer dressing that was placed yesterday. He does not report any drainage from the previously healed lateral foot ulcer. His edema in the right leg persists despite wearing compression stockings daily and his blood sugars remain well controlled below 120 with his last A1c approx 2 months ago at 7.4. 04/22/14 The patient reports no increase in drainage from his wounds today. He has been faithfully wearing his orthopedic boot with the cut-out area around his 5th MT ulcer. 04/15/14 The patient reports no increase in drainage from his wounds today. He reminds me that a TCC was the cause of his 5th MT ulcer and he is not excited about trying a TCC again. He is interested in HBOT if it will be beneficial to his wounds. 04/09/14 The patient reports increased drainage from his right 5th MT ulcer and feels his surgical boot he's been wearing for off loading may have caused pressure to the area. His blood sugars have improved and he also reports a 5 lb weight loss after doubling his dose of lasix over the past week. Of note, he did not liaise with his PCP prior to doing this. 04/04/14 The patient states that he was walking a bit more than usual yesterday but notes some sanguinous drainage on his plantar 1st MTPJ dressing for the past few days. He's also put on 7 lbs in the past week and feels his legs are more swollen than usual. He does not report chest pain, shortness of breath, or orthopnea. His blood sugars are also up a bit around 180. He's compliant with both his diabetes regimen and his diuretic therapy. 03/28/14 The patient reports no increased drainage or other complications from his right foot diabetic ulcers. 03/21/14 The patient reports minimal drainage from his right foot diabetic ulcers. He continues to minimally weight bear using a surgical boot and a walker. 03/14/14 The patient does not report increased drainage or other new issues regarding his right 5th MTPJ and right 1st MTPJ plantar ulcers. His blood sugars remain more elevated than usual with some between 150 and 180. 03/07/14 The patient reports no fever or increased right foot wound pain or drainage. 02/28/14 The patient reports that his blood sugar this morning is a bit elevated around 160 but has mostly been below 140 over the past few days. He's been off antibiotics for 3 days now and reports modest drainage from the right 5th MT ulcer while dressing changes are being done every two days. 02/24/14 The patient does not report any new issues regarding his right foot ulcers including increased drainage, fever, or chills. He completed his course of doxycycline yesterday. 02/17/14 The patient reports moderate yellow drainage from the right foot 5th MTPJ ulcer. He's completed a course of doxycycline and does not report fever or chills but states his blood sugars remain higher then normal in the 170's. His wound culture was positive for Enterobacter and his ESR was elevated at 41 and CRP at 2.7. 02/06/14 The patient does not report increased drainage from the right 5th MTPJ ulcer nor does he report fever or pain. He continues to off load with a walker and minimizing walking. He continues on doxycycline which was started empirically at his last visit and his culture has since grown Enterobacter which should be susceptible to doxy based on sensitivities. His xray of the foot was not concerning for osteomyelitis however his ESR and CRP are both moderately elevated. He also feels his legs are more swollen than usual and he continues to take his lasix as scheduled. 02/03/14 The patient does not report fever, chills, or pain in the right foot however when the TCC was removed today he's noted to have a sizable increase in the diameter and depth of what was a small 5th MTPJ ulcer. 01/14/14 The patient reports no new problems regarding is right diabetic foot ulcer. 12/31/13 The patient reports minimal serous drainage from his right 5th MTPJ ulcer and states he continues to off load his foot as much as possible. He does not report pain or drainage from the site of his right 1st MTPJ ulcer. 12/19/13 The patient tolerated with TCC without any complaints but there appears to be a small area of erythema over the right 5th MTPJ. He notes his blood sugars are typically below 120 and his A1c last week was 7.4. 12/13/13 The patient has no complaints regarding his TCC nor his plantar ulcer. 12/11/13 The patient returns for placement of a TCC today. He does not report any new problems regarding is plantar ulcer. 12/03/13 The patient states his plantar ulcer drainage is stable and he's continued to not use a cut-out foam doughnut over the ulcer. 11/26/13 The patient has kept the foam dressing in place from the last visit and has not used a cut-out foam dressing which we felt caused some deterioration of the foot ulcer. He has some mild drainage but no pain. 11/22/13 The patient returns for review of his plantar ulcer and callus that seems to be deteriorating despite an adjustment to his boot and off loading measures. The patient reports his callus accumulation is in spite of daily kerasal applications. Patient reports a new small wound on the left second toe. Josue states that it might be related to the brace. Patient had brace modified to help off load. 11/06/13 Josue states he was able to schedule with the prosthetic doctor tomorrow at noon. He reports no new problems or concerns. He also says that he is done with physical therapy since yesterday as insurance will not cover it any longer. 10/31/13 The patient reports he received his dressing supplies. Dressings changes are going well and no new problems are reported. He saw his corporate strategy associate, Dr. Solitario, on Monday for a check up and had and x-ray of the foot. 10/24/13 Josue reports he has been staying off of his feet as much as possible. He has been changing the dressing as ordered and states there has been just a small amount of drainage. He recently ran out of his dressings and will need more ordered or the balance sent home with him. 10/17/13 Patient states he has no new problems or concerns. He did have a small increase in drainage the other day but he had walked more than normal the day before. 10/09/13 Josue states he has no new issues. Dressing changes are going well. 10/02/13 Josue states there have been no new issues with dressing changes. They have been changed once since his last visit. No complaints of pain with the wound. 09/20/13 Josue was discharged from wound care September 05. States that he has been using pumice stone on callus area where had previous wound and may have been too aggressive. Also has been on feet more and having increase in lower extremity edema. Continues to wear the tetragrip F he had received in the clinic 6 hours per day but has not ordered any yet. 09/27/13 Patient states that there have been no issues with using the tetra popcorn attendant. Asking about getting compression stockings from drug store for continued use. 09/05/13 Patient states he has set up physical therapy for the problems with his knee. He starts these treatments on 09/11. There has been no new issues with his wound and he changes the dressings about every two days. He reports little to no drainage. 08/06/13 States no new problems with wound area. Been using kerosol daily. 08/19/13 Patient states he twisted his knee a week ago, and it is effecting his walk slightly. He also complains of more edema in his legs, and has an appointment with his PCP tomorrow regarding the issue. No new problems or concerns with his wound. No new problems or concerns. Patient states he changed the dressing a few times this last week. Saw Dr. Solitario this past week for check up with no change o his management. 07/26/13 The patient has had new brace for one week and so far it is working out well. No other complaints at this time. 07/18/13 Patient got brace for foot and leg yesterday. No problems or concerns. 07/11/13 No problems or concerns. Changed dressing twice since last visit 07/04/13- Pt went to his PCP and his lasix were increased from 20mg to 40mg. He states his edema has decreased since then. Pt's diabetic foot brace (decreases lateral movement to reduce pressure on the sides of his feet) will arrive in about another week. 06/20/13- Pt reports increased edema in his feet for the last week, he has been walking more, but also sitting with his feet down more. With the increase in exercise he states his back has been hurting. On Sunday 06/18 pt went to [facility],and had his ankle brace fitting. 05/31/[address] Green this am. Changed dressing twice this week. Saw content developer (in [place]) on Monday. Considering ankle brace 05/24/13 states started walking program at 5 minutes at a time and taking the bus to clinic apt. 11/08/12 Pt is changing dressing every two days. Is concerned about the edema to the left leg that had the cellulitis. States it is warm. 11/15/12 patient has been having more nerve pain. He has been changing his dressing either every day or every other day. 11/22/12- Patient continues to change dressing about every day. No problems noted. Patient changing dressing about q o day. Thinks wound is less deep. 12/07/12 Pt only changed dressing twice since last visit. No concerns or problems. 12/18/12 When cleaning wound was able to aspirate large purlent sero-sang fluid from site. Pt states he feels it was doing better. 12/24/12 Decreased drainage and pt states he feels the wound is doing well. 12/31 Pt states he has had decreased draiange from wound. Pt denies pain. 01/07/13Pt states the kerasol didn't really do much, but admits he was only applying it every other day and is not sure what his expectations should be. He believes he may have bumped a toe on the left foot and has been concerned about some bruising there but admits it is getting better. Still does not have his new shoes and says he is exploring other options like disability. 01/21/13 feeling well since last visit. feels he may have bumped third toe so wants it to be seen. Level 2- 3 neuropathic pain in right foot 02/27/12 Patient changing bandaid on foot and applying kerasol every three days. Patient got new PCP and saw him yesterday. Patient states things are going well with the wound. 03/12/[address] Green for edema and will see him tomorrow for follow up.03/25/13 states has drainage from bottom of foot. concerned about new wounds Sates he changes dressing every 2 days. Changed this AM as it came off. Using Ca alginate and foam. States no drainage last night 04/19/13 changes dressing every 2-3 days. no problem. Has appt with Dr. Solitario 04/30/13 and new shoes have arrived. To be fitted next week 04/26/13 Is wearing new shoes and states they are working well.Changed dressing twice this week 05.03.[address] Solitario last week. will see again in [address] Green started antibiotic for sinus infection States sinuses not a lot better. Has started Lakshmi D, helping some. States wound about same. Changing dressing 2 x this week as dressing came off. States added collagen one time. Family History This information was obtained from the patient Cancer - Mother, Heart Disease - Father Social History This information was obtained from the patient Never smoker, Alcohol Use - none, Caffeine Use - 1 per day, Children - none, Lives in - jail community, Marital Status - single, Mental health concerns - none, Occupation - unemployed, Substance Abuse - none, Support Systems Lacking - sister lives in town, but has health problems Past Medical History This information was obtained from the patient Patient has a medical history of: Left lower extremity cellulitis - 10/15/2012 Diabetic foot ulcer - 09/27/2013 (Hernandez grade 2; right plantar surface; Hernandez grade III (Enterobacter positive wound culture 02/03/14), lateral right 5th MTPJ originally dx 12/24/13; MRSA positive culture 06/04/14 ) Chronic venous hypertension Type II Diabetes Hypertension Morbid Obesity Kidney Stones Hx MRSA Diabetic neuropathy Hallux valgus (right 1st toe) UTI (hospital admit) Cellulitis of legs (June and September 2012- hospital admit) Cataract surgery (10/13/15) Diabetic Neuropathy Complaints and Symptoms This information was obtained from the patient Patient complains of: General Notes: I have reviewed and concur with the Review of Systems and Past Family Social History documents completed by the clinician, I have reviewed and concur with the Wound Assessment document completed by the clinician Cardiovascular (Central/Peripheral): Lower extremity (leg) swelling Integumentary (Hair/Skin/Nails): Open Sore Musculoskeletal: Deformities, Muscle Weakness Neurological: Abnormal Gait, Loss of Protective Sensation Prior Wound History: Bleeding, Drainage Patient denies complaints or symptoms related to: Cardiovascular (Central): Irregular heart beat Cardiovascular (Central/Peripheral): Lower extremity (leg) resting pain Constitutional Symptoms (General Health): Chills, Fever, Marked Weight Change Ear/Nose/Mouth/Throat: Hearing Loss / Aid Gastrointestinal (GI): Nausea / Vomiting Hematologic/Lymphatic: Bleeding / Clotting Disorders, Bleeding Tendency Musculoskeletal: Assistive Devices Prior Wound History: Erythema, Malodor, Pain Psychiatric: Memory Loss Respiratory: Oxygen Use, Shortness of Breath OBJECTIVE Constitutional Vital signs reviewed. Elevated blood sugar noted. Well developed, lucid, and in no acute distress. . Height/Length: 71 in (180.34 cm), Weight: 362.2 lbs (164.64 kgs), BMI: 50.5, Temperature: 99.3 ?F (37.39 ?C), Pulse: 78 bpm, Respiratory Rate: 18 breaths/min , Blood Pressure: 139/60 mmHg, Capillary Blood Glucose: 209 mg/dl, Pulse Oximetry: 95 %. Vital Signs Notes: Glucose per patient. Eyes: Conjunctiva clear and without icterus. Pupils are equal and round; EOM's intact. Ears, Nose, Mouth, and Throat: Grossly intact. Respiratory: No respiratory distress. Even respirations and without use of accessory muscles.. Gastrointestinal (GI): Obese. Nondistended.. Integumentary (Hair, Skin) Refer to appropriate clinician wound documentation for this visit; ulcer extends to subcutaneous fat layer. . Wound #6 Right, Plantar Foot is a chronic Hernandez Grade 2 Diabetic Ulcer and has received a status of Not Healed. Subsequent wound encounter measurements are 1cm length x 0.5cm width x 0.3cm depth, with an area of 0.5 sq cm and a volume of 0.15 cubic cm. No tunneling has been noted. No sinus tract has been noted. No undermining has been noted. There is a moderate amount of sanguineous drainage noted which has no odor. The patient reports a wound pain of level 0/10. The wound margin is callus. Wound bed has Yes epithelialization, No eschar, No slough, Yes pink, firm granulation. The periwound skin moisture is normal. The periwound skin color is normal. The periwound skin exhibited: Callus. The periwound skin did not exhibit: Brawny Induration, Edema, Excoriation, Induration, Crepitus, Fluctuance, Friable, Rash. The temperature of the periwound skin is WNL. Periwound skin does not exhibit signs or symptoms of infection. Local Pulse is Palpable. Psychiatric: Judgement and insight: Normal affect with normal thought pattern. Alert and oriented 3/3. Memory grossly intact.. Normal affect. Mood appropriate.. 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 A skin/ subcutaneous tissue level surgical debridement with a total area debrided of 0.6 sq cm was performed by Epifanio Pinto PA. Subcutaneous was removed along with devitalized tissue: callus and exudate. The following instrument(s) were used: curette. Pain control was achieved using 4% Lido. A time out was conducted prior to the start of the procedure. A moderate amount of bleeding was controlled with pressure. The procedure was tolerated well with a pain level of 0 throughout and a pain level of 0 following the procedure. Post Debridement Measurements: 1cm length x 0.6cm width x 0.3cm depth; with an area of 0.6 sq cm and a volume of 0.18 cubic cm; Additional Information Muscle fascia or bone removed and sent to pathology?: No PLAN Wound Orders: Wound #6 Right, Plantar Foot Anesthetic Topical Xylocaine to wound bed. - In clinic only. Cleanser Cleanse Wound: - Normal saline and gauze. May Shower. - Do not get wound wet with tap water. Use cast protector when showering. Topical Treatments Antibiotic/Antimicrobial Ointment/Cream. - Iodosorb. Barrier ointment to protect surround skin. - Kerasal to callus. Dressings Primary dressing: - Foam. Cover and secure with: - Hypafix tape. Change Dressing: - Every other day. Additional Orders: Off-Loading Keep weight off: - Right foot as much as possible. Use Knee scooter when able. Use/Wear when Walking: - Offloading shoe. Compression/Edema Control Elevation of leg(s) above the level of the heart when sitting. Avoid prolonged standing in one place. - Please avoid standing or walking for long periods of time. Knee-high gradient compression stockings. - Tetragrip F stockings to both legs. On in the morning and off at night. Follow-Up Appointments Return Appointment: - - Tuesdays and Fridays for callus removal. Other information: If you develop fever, chills, increased pain, drainage, redness or swelling please call our office. If after hours, respond to the ER. Should you experience any significant changes in your wound(s) or have any questions regarding your home care instructions please contact the wound center @ [phone]. If after hours, contact your primary care physician or go to the hospital emergency room. Scribing Attestation I attest, as the nurse, that I scribed these orders for the physician. I've reviewed the clinician's documentation and agree with the evaluation and plan as written. In addition the patient's ulcer demonstrates evidence of non-viable devitalized tissue which benefits from sharp debridement. Separate from the need for debridement today to speed healing, the patient's diabetes was assessed, as good blood sugar control reduces the risk of infection and improves soft tissue healing. The patient was enouraged to continue to comply with a diabetic diet, medications and continue to regularly follow up with primary care to maintain good control of this issue. Electronic Signature(s) Signed By: Date: Jean-Pierre Pinto 08/14/2017 22:08:02 Entered By: Jean-Pierre Pinto on 08/14/2017 13:49:50
== END ==
PROVIDERS: PCP Family Medicine; Visit Provider Physician Assistant
DX: E11.621 Type 2 diabetes mellitus with foot ulcer (principal); L97.512 Non-pressure chronic ulcer of other part of right foot with fat layer exposed; E11.65 Type 2 diabetes mellitus with hyperglycemia
CPT/HCPCS: 11042

== ENCOUNTER → 2017-08-15 10:07 | Outpatient (CLI) | payer MEDICARE, OTHER, SELFPAY | PROVIDERS: PCP Family Medicine; Visit Provider Internal Medicine | DX: E11.621 Type 2 diabetes mellitus with foot ulcer (principal); L97.512 Non-pressure chronic ulcer of other part of right foot with fat layer exposed; L08.9 Local infection of the skin and subcutaneous tissue, unspecified; M20.5X1 Other deformities of toe(s) (acquired), right foot | CPT/HCPCS: 11042; 87070; 87075; 87077; 87147; 87186; 87205 ==

== ENCOUNTER → 2017-08-18 09:23 | Outpatient (CLI) | payer MEDICARE, OTHER, SELFPAY ==
--- NOTE | 2017-08-18 | OV.WND_ITS ---
Progress Note Details Patient Name: Josue Mesa Patient Number: [id number] PatientPatientDate: 08/18/2017 Clinician: Estephanie Grant Clinician Cosigner: Fay Moncada Physician / Metal Riveting Machine Operator: Stephen Nice SUBJECTIVE Chief Complaint This information was obtained from the patient Diabetic ulcer to right plantar foot. Allergies Augmentin (Severity: Mild, Reaction: nausea) HPI This information was obtained from the patient 08/18/17. Seen by Dr. Nice. The patient's wound culture taken from the chronic right foot diabetic ulcer at his last visit grew an intermediately resistant coag negative Staph and his dressing change and application of gentamicin is taking place only every 2-3 days. He does not report pain in the foot but staff report his dressing as being 'bloody' today. 08/15/17. Seen by Dr. Nice. The patient reports what may be increased drainage on his right foot diabetic ulcer dressings as mentioned by his landcare facilitator in assisted living. He's using a knee scooter as recommended and does not report pain in the foot. He's also asking when it will be appropriate to have his right foot orthotic adjusted in his diabetic shoe although he's currently wearing a forefoot offloading shoe at all times. 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 08/11/17. Seen by Jean-Pierre Pinto PA-C. The patient reports stable drainage from his right foot diabetic ulcer. Again his blood sugars have been above 150 since his last visit. 08/08/17. Seen by Jean-Pierre Pinto PA-C. The patient reports no increase in drainage from his right foot diabetic ulcer. His blood sugars this week have reportedly been mostly above 150. 08/04/17. Seen by Dr. Nice. The patient does not report increased drainage associated with the chronic right plantar foot diabetic ulcer since his last visit and he's offloading appropriately as recommended. He also was seen by Dr. Solitario, podiatry, who discussed possible surgical options to address the severe right 1st toe valgus deformity that's complicating the ulcer and contributing to heavy periculcer callus formation however there's no plan of intervention at this time. 08/01/17. Seen by Dr. Nice. The patient does not report increased drainage associated with the chronic right plantar foot diabetic ulcer since his last visit and he's offloading appropriately as recommended. 07/28/17. Seen by Dr. Nice. The patient does not report increased drainage associated with the chronic right plantar foot diabetic ulcer since his last visit and he's offloading appropriately as recommended. We've increased his visits to twice weekly due to the very heavy callus formation that's contributing to the refractory nature of the ulcer. 07/25/17. Seen by Dr. Nice. The patient does not report increased drainage associated with the chronic right plantar foot diabetic ulcer since his last visit and he's offloading appropriately as recommended. Kerasal is not being applied to the periulcer callus and his visits have been decreased to once weekly over the past few weeks while the ulcer has been improving. 07/18/17. Seen by Dr. Nice. The patient does not report increased drainage associated with the chronic right plantar foot diabetic ulcer since his last visit and he's offloading appropriately as recommended. 07/11/17.Seen by Dr. Nice. The patient has been wearing his offloading shoe and using a knee scooter as recommended and does not report significant drainage associated with the chronic right plantar foot diabetic ulcer since his last visit. 07/04/17. Seen by Dr. Nice. The patient has been wearing his offloading shoe as recommended and does not report significant drainage associated with the chronic right plantar foot diabetic ulcer since his last visit. 06/30/17. Seen by Dr. Nice. The patient has been wearing his offloading shoe as recommended and does not report significant drainage associated with the chronic right plantar foot diabetic ulcer since his last visit. 06/27/2017. Seen by Dr. Nice. The patient has been wearing his offloading shoe as recommended and does not report significant drainage associated with the chronic right plantar foot diabetic ulcer since his last visit. His blood sugars are also mostly below 100 now and he's using his knee scooter as well to further optimize offloading. 06/23/2017. Seen by Dr. Nice. The patient does not report pain nor increased drainage associated with the chronic right plantar foot diabetic ulcer since his last visit. He is wearing his offloading shoe as recommended now and his blood sugar control has improved with some below 200. 06/20/2017. Some by Dr. Nice. The patient is not report increased drainage position with chronic right plantar foot diabetic ulcer since last visit. He is now clindamycin for the resistant Staphylococcus haemolyticus positive culture that was taken to the last visit. His blood sugars continued to be elevated and or over 300 earlier this morning despite having his Lantus dose increased recently. He is also wearing his diabetic shoes but not an offloading surgical shoe as I have been recommending. 06/16/17. Seen by Dr. Nice. The patient does not report increased drainage associated with chronic right plantar foot diabetic ulcers since his last visit. His recent wound culture grew a resistant coag negative staph organism. He also met with his primary care provider, Dr. Green, to increase his dosing of Lantus and plans to work with him on dietary measures to help gain better control of his elevated blood sugars. 06/13/17. Seen by Dr. Nice. The patient's blood sugars again are over 300 today and his appointment with his primary care provider to address this. He does not report any acute changes regarding the chronic right plantar foot diabetic ulcer and is using his knee scooter to help facilitate offloading as much as possible. 06/09/17. Seen by Dr. Nice. The patient does not report significant drainage associated with the chronic right plantar foot diabetic ulcer since his last visit. 06/06/17. Seen by Dr. Nice. The patient does not report significant drainage associated with the chronic right plantar foot diabetic ulcer since his last visit and he's lost another 7 lbs since increasing his dose of Lasix due to abnormal weight gain and significant bilateral lower extremity edema. 06/02/17. Seen by Dr. Nice. The patient does not report significant drainage associated with the chronic right plantar foot diabetic ulcer since his last visit. His increase his dose of Lasix and has lost 7 pounds over the past 3 days. This is been done due to the significant increase in leg swelling over the past 2 weeks. 05/30/17. Seen by Dr. Nice. The patient does not report increased drainage associated with chronic right plantar foot diabetic ulcer since his last visit however he does feel that the right foot and leg are swelling considerably over the past few days. We note a 4 pound weight gain since his last visit on Monday and he states is taking his diuretic as prescribed. 05/26/17. Seen by Dr. Nice. The patient does not report increased drainage associated with chronic right plantar foot diabetic ulcers since his last visit. His culture grew a somewhat resistant coag negative staph and he is not currently on antibiotics. 05/23/17. Seen by Dr. Nice. Staff reports some increased drainage on his dressings covering the chronic right plantar foot diabetic ulcer today. His blood sugar is again over 300 and he states he is eating rice and potatoes trying to cut back. He continues offload with his knee scooter as recommended and does not report pain or any other acute ulcer related issues today. 05/19/17. Seen by Dr. Nice. The patient does not report increased pain or drainage associated with chronic right plantar foot diabetic ulcer since his last visit. He is using his knee scooter as recommended and has had significant problems with heavy callus at the site due to a severe right first toe valgus deformity. He is now attending clinic twice weekly for debridement of the ulcer and complicating callous. 05/16/17. Seen by Dr. Nice. The patient does not report increased drainage or pain associated with chronic right plantar foot diabetic ulcer since his last visit. Of note, the patient's blood sugar as 271 today and his A1c was 9.8 in March. 05/12/17. Seen by Dr. Nice. The patient does not report increased pain or drainage associated with chronic right plantar foot diabetic ulcer since his last visit. He is using his knee scooter to help offload the site which is particularly important based on patient's morbid obesity coupled with his severe first MTPJ valgus deformity. 05/09/17. Seen by Dr. Nice. The patient does not report increased drainage or pain associated with the chronic right plantar foot diabetic ulcer since his last visit. He states his blood sugars continue to be above 200 consistently although are improving with compliance to a lower carbohydrate type diet. He was started on metformin about a month ago he complains of some intermittent upper extremity weakness since then and will be discussing this with his primary care provider. He is also awaiting his new diabetic shoes that are being adjusted to help accommodate for his severe right first toe valgus deformity. 05/02/17. Seen by Jean-Pierre Pinto PA-C. The patient reports stable drainage from his right 1st toe ulcer and blood sugars continue to be above goal. 04/25/17. Seen by Jean-Pierre Pinto PA-C. The patient reports his blood sugars have been above 150 this week. He does not report increased drainage from his right 1st toe diabetic ulcer. 04/18/17. Seen by Dr. Nice. The patient does not report increased drainage associated the chronic right first toe diabetic ulcers since his last visit. 04/11/17. Seen by Jean-Pierre Pinto PA-C. The patient reports he is developing more calloused areas on his feet and is concerned about new ulcers occurring. His chronic 1st toe diabetic ulcer has been stable. 04/04/17. Seen by Jean-Pierre Pinto PA-C. The patient reports he has not been able to get his blood sugars below 150. Drainage is reportedly decreased from his diabetic foot ulcer. 03/30/17. Seen by Jean-Pierre Pinto PA-C. The patient reports continued high blood sugars, all above 150. Drainage from his ulcer is not increased. 03/23/17. s Seen by Jean-Pierre Pinto PA-C. The patient reports blood sugars above 150 again this week. He is concerned that something must be going on with an infection as he believes his diet has not changed and thus his sugars should be lower. His wound has had stable drainage. 03/15/17. Seen by Jean-Pierre Pinto PA-C. The patient reports he has had some blood sugars above 150 this week. He reports no increase in drainage from his right 1st toe diabetic ulcer. 03/08/17. Seen by Dr. Nice. The patient was discharged from the hospital recently following treatment for cellulitis associated with the chronic right first toe diabetic ulcer. He grew MRSA from the wound culture and was treated with IV vancomycin and is now on Bactrim. He does not report pain nor significant drainage associated with the ulcer nor side effects from antibiotics. 02/23/17. Seen by Dr. Nice. The patient does not report increased drainage associated the chronic right first toe diabetic ulcers since his last visit. The patient also states that he is more active over the holidays and was unable to use his knee scooter at times while walking outside due to safety concerns. 02/08/17. Seen by Dr. Nice. The patient does not report increased drainage associated the chronic right first toe diabetic ulcers since his last visit. He states he is using his offloading shoe when at home and a knee scooter went out. 02/01/17. Seen by Dr. Nice. The patient does not report increasing pain or drainage associated with chronic right first toe diabetic ulcer since his last visit. 01/25/17. Seen by Dr. Nice. The patient does not report increasing pain or drainage associated with chronic right first toe diabetic ulcer since his last visit. 01/18/17. Seen by Dr. Nice. The patient does not report increasing pain or drainage associated with chronic right first toe diabetic ulcer since his last visit. Of note, the patient's blood sugar is over 260 again today and he admits that it's been significantly elevated for a number of weeks. He has an appointment with his primary care provider to discuss this next week. 01/11/17. Seen by Dr. Nice. The patient does not report increasing pain or drainage associated with chronic right first toe diabetic ulcer since his last visit. He states his blood sugars have been running high recently and he is going to follow-up with his primary care provider in the near future to address this. 01/04/17. Seen by Dr. Nice. The patient does not report increased drainage associated with chronic right first foot diabetic ulcers since his last visit. He's also been applying Kersal to the periulcer as recommended. 12/28/16. Seen by Dr. Nice. The patient does not report increased drainage associated with chronic right first foot diabetic ulcers since his last visit. 12/22/16. Seen by Dr. Nice. The patient does not report increased drainage associated with chronic right first foot diabetic ulcers since his last visit. He's not been applying Kersal to the periulcer callus and does not appear to be using his knee scooter at all times to offload the ulcer. 12/15/16. Seen by Jean-Pierre Pinto PA-C. The patient reports he continues to have blood sugars above 150 this week. He recently saw his PCP, they did not alter his diabetic care plan. His visit was a follow up for an ER visit for chest pain which was negative for HI and was thought to be epigastric in origin. His diabetic ulcer of the right foot has not had increased drainage. 12/06/16. Seen by Jean-Pierre Pinto PA-C. The patient reports that he has found his knee scooter and plans to start using it today. He also reports most of his blood sugars have been above 150. Drainage from his ulcer has been stable. 11/25/16. Seen by Dr. Nice. The patient does not report increased drainage associated with chronic right first foot diabetic ulcers since his last visit. He is now on antibiotics for wound infection and does not report adverse side effects. Of note, he is not yet using a knee scooter nor offloading shoe as we recommended last week. 11/18/16. Seen by Dr. Nice. The patient returns to our clinic and presents with recurrence of a right first MTPJ plantar diabetic ulcer. He states it started a couple weeks ago when he was attempting to remove overlying callus at home. He does not report significant drainage or pain associated with the ulcer and is not currently on antibiotics. He also states his recent A1c was 7.8. His blood sugar in clinic today is 250. 01/11/16 Seen by Jean-Pierre Pinto PA-C. The patient reports no drainage from his chronic right 1st MTPJ joint since his last dressing change. 01/04/16 Seen by Jean-Pierre Pinto PA-C. The patient reports minimal drainage from his chronic right 1st MTPJ ulcer. He has recently seen his PCP and his A1c was 7.7. His lower extremity edema, abnormal weight gain and kidney failure are stable with his diuretics recently being adjusted. 12/28/15. Seen by Dr. Nice. The patient does not report significant drainage associated with the chronic right 1st MTPJ diabetic ulcer since his last visit however he does complain of increasing shortness of breath, fatigue, and an 18lb weight gain over the past week despite taking his diuretics as recommended. He does not report chest pain or cough and his blood sugars remain relatively well controlled with most below 150. 12/16/15. Seen by Dr. Nice. The patient does not report significant drainage associated with the chronic right 1st MTPJ diabetic ulcer since his last visit. He's applying kerasal to the surrounding callus as recommended and offloading nearly at all times using his knee scooter. 12/07/15 Seen by Jean-Pierre Pinto PA-C. The patient reports compliance with his new offloading brace and shoe and has seen minimal drainage from his diabetic foot ulcer since his last visit. 11/30/15. Seen by Dr. Nice. The patient does not report significant drainage associated with the chronic right 1st MTPJ diabetic ulcer since his last visit and he's wearing a combined AFO / diabetic shoe system that he feels may be better offloading the ulcer. 11/23/15 Seen by Jean-Pierre Pinto PA-C. The patient reports that he is wearing his new diabetic shoes and inserts. He is continuing physical therapy for gait training and reports continued difficulty with stairs and occasional bouts of dizziness. He reports stable drainage from his chronic right foot diabetic ulcer. 11/16/15 Seen by Jean-Pierre Pinto PA-C. The patient reports stable drainage from his right foot diabetic ulcer. He also reports that his diabetic shoes and inserts are quite old and worn out. He is ambulating with is 4 wheeled walker and is working with PT for gait training. 11/09/15 Seen by Jean-Pierre Pinto PA-C. The patient reports that he is still using a 4 wheeled walker instead of a 4 footed walker. PT is working with him to improve his gait and balance. Drainage from his right foot ulcer has been stable. 11/02/15 Seen by Jean-Pierre Pinto PA-C. The patient reports no increase in drainage from his chronic diabetic foot ulcer. He has had multiple blood sugars above 150 this week. 10/29/15. Seen by Dr. Nice. The patient was recently discharged from [facility] following treatment of sepsis thought to possibly be related to his chronic right 1st MTPJ diabetic ulcer that grew Enterococcus just prior to his admission. He now feels generally weak , has lost 18 lbs following diuresis, and is residing at home where he's minimizing his weight bearing on the right foot. He does not report significant drainage from the ulcer nor pain and states his blood sugars remain mostly around 150. He also continues on levofloxacin and does not report adverse side effects. 10/14/15. Seen by Dr. Nice. The patient report persistent bloody drainage from the chronic right 1st MTPJ diabetic ulcer and he feels the callus has increased significantly since it was last debrided 2 week ago. He does not report fevers or feeling unwell and states his blood sugars are well controlled with most below 150. He's using his AFO when walking nearly at all times to facilitate offloading the significant right 1st MTPJ valgus deformity. 09/24/15 Seen by Jean-Pierre Pinto PA-C. The patient reports that he is no ran out of lasix due to a mix up at the pharmacy and unavailability of his strength/dose of tablets. He continues trying to offload his ulcer with his wheeled walker and notes stable ulcer drainage. 09/17/15. Seen by Dr. Nice. The patient continues to report some bloody drainage from the chronic right 1st MTPJ diabetic ulcer and he's started reducing his activity and continues to use his knee scooter at home to offload the foot. 09/10/15. Seen by Dr. Nice. The patient states he was more active over the past week and notices increased bloody drainage associated with chronic right first MTPJ diabetic foot ulcer. He continues to wear his AFO and states his blood sugars are mostly below 150. 09/03/15. Seen by Dr. Nice. The patient does not report significant drainage associated with the chronic right first MTPJ diabetic ulcer over the past week. He does feel that the callus smaller than on previous visits and is wearing his AFO at all times. Of note, he 's now in doxycycline to treat the recent coag negative Staph cultured from the ulcer at his last visit. 08/27/[address] Nice. The patient reports increase bloody drainage associated with the chronic right foot 1st MTPJ diabetic ulcer and he feels his activity has increased due to physical therapy and increased mobility over the past week. He does not report pain at the ulcer site, fevers, or feeling unwell in general. 08/20/[address] Nice. The patient does not report significant drainage associated with the chronic right foot 1st MTPJ diabetic ulcer over the past week and he's using a knee scooter as much as possible when mobilizing to offload the foot. His blood sugars also remain relatively well controlled with most below 150. 08/13/[address] Nice. The patient does not report significant drainage associated with the chronic right foot diabetic ulcer over the past week and he's offloading using a knee scooter as recommended. His blood sugars remain relatively well controlled with most below 150. 08/06/[address] Nice. The patient reports recurrence of some drainage from the chronic right foot diabetic ulcer over the past few days and states he's been more active with physical therapy. His blood sugars remain well controlled with most below 150 and he's wearing his AFO when away from the house and using a knee scooter most of the time while at home to facilitate offloading. He's also applying Kerasal to the callus in the periwound area as recommended. 07/23/[address] Nice. The patient does not report drainage from the chronic right 1st MTPJ diabetic ulcer over the past week and he's using his new AFO and knee scooter to offload the foot. 07/16/[address] Nice. The patient does not report pain or drainage from the chronic right 1st MTPJ diabetic ulcer and he's wearing his newer AFO while offloading with a knee scooter most of the time. 07/09/[address] Nice. The patient does not report drainage or pain associated with his chronic right foot 1st MTPJ diabetic ulcer and he's been offloading by using a knee scooter when mobilizing. His trap puller is present today as well to discuss possible adjustments to his AFO with the goal of reducing callus formation that's in part caused by his significant right 1st toe valgus deformity. He also states his blood sugars remain well controlled below 150 consistently. 07/03/[address] Nice. The patient does not report significant drainage from the chronic right foot diabetic ulcer and he's offloading by using his knee scooter. His blood sugars also remain relatively well controlled around 150 consistently. 06/26/[address] Nice. The patient report some continued bloody drainage from the chronic right 1st MTPJ diabetic ulcer however he does not report associated pain , fevers or feeling unwell. His blood sugars remain consistently below 150 and he's using his walker and knee scooter for offloading as recommended. He's also been actively working with his trap puller in hopes of better offloading the ulcer and address his significant callus formation and left 1st MTPJ valgus deformity. 06/19/[address] Nice. The patient does not report pain associated with his chronic right 1st MTPJ diabetic ulcer however he states some bloody drainage persists on the dressings. He does not report fevers or feeling unwell and states his blood sugars are well controlled below 150 consistently and he's using a knee scooter and walker to offload the ulcer when mobilizing. He also does not report pain or drainage associated with the left 2nd toe wound. 06/11/[address] Nice. The patient was recently discharged from [facility] following a fall at home that resulted in a broken rib. Regarding his chronic right 1st MTPJ diabetic ulcer he does not report significant drainage and has been offloading through bed rest and using a knee scooter while at home. His blood sugars also remain well controlled with most below 150. He also reports a new wound on the dorsum of the left 2nd toe that he believes occurred during his fall. He does not report associated pain or significant drainage. 05/28/[address] Nice. The patient reports some increased bloody drainage from the chronic right 1st MTPJ diabetic foot ulcer over the weekend associated with a new 'soft' area along the distal margin. He's been more active the past the past few days but states he's using his knee scooter to offload at all times. His blood sugars also remain well controlled with most around 120 and he's no longer on antibiotics. He also continues to wear his old AFO but states there was a recent adjustment of a cut out lined with 'soft' plastic in the area of the ulcer. 05/21/[address] Nice. The patient report less drainage from the chronic right foot 1st MTPJ diabetic ulcer over the past week. He's completed his course of doxycycline and he continues on fluconazole for the recent Alma Delia positive wound culture. He's also reverted back to using his previous AFO while his newer one is adjusted to try to address the recent significant increase in callus formation that's occurred. His blood sugars also remain well controlled under 150 consistently and his recent episodes of hypoglycemia has resolved with an adjustment of his insulin regimen. 05/14/[address] Nice. The patient reports less drainage on the dressings covering the chronic right 1st MTPJ diabetic ulcer since starting doxycycline for a coag negative Staph wound culture along with fluconazole for the alma delia positive culture. His blood sugars remain well controlled below 120 and his insulin has been decreased due to the recent episodes of hypoglycemia. His diuretic has also been decreased as he's lost considerable water weight over the past month. 05/07/[address] Nice. The patient continues to report modest bloody drainage on the dressing covering the chronic right 1st MTPJ diabetic ulcer and he continues to limit his walking but has not been using a knee scooter or walker around the house to facilitate offloading. His blood sugars remain well controlled mostly below 150. 04/30/[address] Nice. The patient continues to report bloody drainage on his right foot diabetic ulcer dressing and he's feeling a bit unwell in general without reporting specific symptoms. He also continues to have intermittent low blood sugars in the 50-60' s and has not discussed this issue with his PCP recently. He's wearing his AFO daily but admits to having difficulty using his walker at all times due to limited space in his new apartment. 04/27/15 Seen by Jean-Pierre Pinto PA-C. The patient reports nonspecific malaise for the past few days. Last night, he reports feeling to tired, weak and shaky to watch TV and went to bed very early. His malaise has been increasing over the past 1-2 weeks and he has frequently been monitoring his blood sugar. His blood sugars are lower than normal lately but never below 100. He has been reducing his insulin dosing in the past 2 weeks to compensate for the lower numbers. He continues to loose weight while continuing to take Lasix and metolazone. 04/23/[address] Nice. The staff and patient continue to report at least moderate serosanquinous drainage from the chronic right 1st MTPJ diabetic ulcer. His blood sugars have been well controlled over the past week with most below 150. He does report being more active than usual while he's been moving to his new home and he also states he continues to loose weight following a recent increase in his diruetics. His wound culture from the last visit reported heavy Diptheroids and he's not currently on antibiotics. 04/20/15 Seen by Jean-Pierre Pinto PA-C. The patient reports that he has moved house and has been on his feet much more so as a consequence. He reports increased drainage from his right plantar foot diabetic ulcer. In addition he believes he struck it against a hard surface when moving. He has had no significant pain with weightbearing but is insensate in this area. 04/15/[address] Nice. The patient reports continued weight loss, and decreasing leg swelling, since starting metolazone totaling about 20 lbs. He also feels the chronic right 1st MTPJ diabetic ulcer has been draining increasing amounts of sanguinous fluid. His blood sugars remain well controlled with most below 120 and he does not report fever or feeling unwell. 03/25/[address] Nice. The patient states he walked a considerable amount yesterday and now reports some bleeding from the chronic right 1st MTPJ diabetic foot ulcer. He also continues to report increased weight gain and now some shortness of breath when walking short distances. He has a low grade fever today but does not report a cough or feeling unwell otherwise. 03/11/2015 Seen by Jean-Pierre Pinto PA-C. The patient's weight has increased 10 lbs in the past week. He reports increased shortness of breath with exertion. He denies chest pain, jaw, neck, shoulder pain or shortness of breath at rest. He has been compliant with his diuretics. His ulcer drainage has been stable. 03/04/2015 Seen by Jean-Pierre Pinto PA-C. The patient is wearing his newly adjusted AFO and reports an increase in walking since last visit. He was unaware that his temperature was elevated and reports no URI symptoms such as cough or sore throat. 02/24/2015 Seen by Jean-Pierre Pinto PA-C. The patient believes his ulcer has now been draining more despite trying to offload the ulcer. 02/11/[address] Nice. The patient reports less drainage from the chronic right 1st toe diabetic ulcer and he's still waiting for approval for his new AFO. 02/04/[address] Nice. The patient feels the drainage from the right 1st MTPJ ulcer has decreased since last week and he's scheduled to see Dr. Solitario tomorrow to review his foot deformity and recurrent callus formation at the site of the ulcer. 01/30/[address] Nice. The patient returns to clinic and reports recurrence of the recently healed right 1st MTPJ diabetic foot ulcer with new moderate drainage and significant callus formation. He's not yet re-established with Dr. Solitario, podiatry, due to insurance issues and is awaiting approval for an adjustment for his AFO. His blood sugars remain controlled below 150 mostly and he does not report pain in the foot or fevers. 01/12/[address] Nice. The patient does not report drainage from the right 1st toe MTPJ ulcer and he's scheduled to have his new AFO fitted this week. 01/05/[address] Nice. The patient does not report drainage associated with the right 1st MTPJ diabetic foot ulcer however he states he has had some intermittent, very brief 'shooting' pain at the site of the ulcer the past few days. His blood sugars also remain between 120 and 150 mostly. 12/29/[address] Nice. The patient does not report drainage from the chronic right 1st MTPJ diabetic foot ulcer and he offloads using a walker and surgical shoe at all times except for when he wears a slipper around his small apartment. 12/22/[address] Nice. The patient does not report significant drainage from the right 1st MTPJ diabetic foot ulcer and he states his blood sugars are still in the 150 range with some over 180. 12/10/[address] Nice. The patient does not report significant drainage from the right 1st MTPJ diabetic foot ulcer. 12/04/[address] Nice. The patient does not report any drainage from the chronic right 1st MTPJ diabetic foot ulcer and he's still waiting for insurance approval for a custom, articulating AFO. His blood sugars also remain relatively well controlled below 150 consistently. He also continues to apply Kerasal to the associated callus daily. 11/20/[address] Nice. The patient's been feeling unwell the past week and feels he may have lost as much as 10 lbs due to poor oral intake. Otherwise he does not report any new problems regarding his right 1st MTPJ plantar diabetic ulcer. 11/07/[address] Nice. The patient reports only scant drainage from the right plantar diabetic foot ulcer. He's been offloading as recommending with a walker and is awaiting a approval for an articulating AFO. His blood sugars remain mostly well controlled below 150. 10/31/14 Seen by Jean-Pierre Pinto PA-C. The patient feels he has reached another plateau with regard to his wound healing. His right plantar diabetic ulcer continues to drain and has not improved recently. He is wearing his brace and reports compliance with offloading. 10/21/[address] Nice. The patient reports only scant drainage from his right 1st plantar surface MTPJ diabetic foot ulcer. He continues to offload with a frame walker and his blood sugars are moderately well controlled with most below 150. 10/14/[address] Nice. The patient does not report significant drainage from the right 1st plantar MTPJ ulcer. Of note, when discussing his blood sugars he mentions he's on both 70/30 insulin as well as Lantus and he frequently has blood sugars in the 150-200 range. 10/07/[address] Nice. The patient reports some modest drainage from the right 1st MTPJ plantar ulcer but no pain, erythema, or swelling. His blood sugars are mostly below 150 and he offloads with his AFO. 09/30/14 Seen by Jean-Pierre Pinto PA-C. The patient reports continued compliance with his AFO and he is trying to offload. He is scheduled now with PT for gait training and knee strengthening. He reports his knee is still sore at times and he feels unstable at times when using his offloading devices and AFO. 09/23/[address] Nice. The patient reports only minimal drainage from the right plantar 1st MTPJ ulcer. 09/16/14 Seen by Jean-Pierre Pinto PA-C. The patient continues to use his AFO, offloading shoe, knee scooter and frame walker to offload his wound. 09/09/14 Seen by Jean-Pierre Pinto PA-C. The patient has been wearing his AFO and offloading shoe together, with the added padding as designed by Sahra BOYD of [facility]. He reports that he feels unsteady and that his knee has felt strained and he discontinued using the brace as he is concerned that he has, or will, re-injure his right knee. He also is having difficulty using his knee scooter with the brace. One year ago , while attempting to offload his foot he did injure his knee and required physical therapy to recover. 08/19/14 Seen by Jean-Pierre Pinto PA-C. The patient's weight is down 10 lbs from his previous visit. His twice daily naproxen has been discontinued by his PCP in an effort to reduce his lower extremity edema. 08/15/14 Seen by Jean-Pierre Pinto PA-C. The patient continues to have weight fluctuations and large amounts of weight gain in short periods of time despite increased diuretic usage. 08/04/14 Seen by Jean-Pierre Pinto PA-C. The patient has been taking his Levaquin and again reports to the clinic with a low grade fever. He reports nearly daily application of Kerasal and his weight and edema have been stable on a higher dose of diuretics. Blood sugars remain stable on his current diabetic medications. 07/21/14 Seen by Jean-Pierre Pinto PA-C. The patient does not report fever, chills or URI symptoms. His wound drainage has been stable. 07/16/[address] Nice. The patient reports persistent but minimal drainage from the right foot plantar ulcer and continues to offload with a walker at all times. His blood sugar are mostly below 150 with a few around 170 the past few days. 07/01/14 The patient reports that he has gained 8lbs in 8 days. Denies SOB. Does not report fever or chills. 06/23/[address] Nice. The patient continues to offload with a knee scooter and walker at all times. He does not report significant drainage from the right plantar foot ulcer. 06/20/[address] Nice. The patient has been offloading his right foot ulcer with a walker and reports less drainage over the past 2 days. He's now off of antibiotics and his blood sugars remain well controlled below 150. 06/11/[address] Nice. The patient reports persistent drainage from the right foot plantar 1st MTPJ ulcer and he completed his course of doxycycline which was started for a MRSA positive culture from the ulcer site. His blood sugars have also been a bit elevated above 150 recently. He does not report fever or chills however. 06/04/14 The patient reports difficulty in offloading his wound due to inability to use crutches due to poor balance. He find the wheelchair difficult to use and his knee scooter is not rated for his weight. He denies fever, chills or URI symptoms. 05/28/14 The patient's been attempting to offload with a knee scooter but is concerned it may not be appropriate or stable based on his weight. He does not report increased drainage from he right plantar 1st MTPJ ulcer and his blood sugars remain well controlled below 120. 05/21/14 The patient reports only minimal sanguinous drainage from his right foot plantar ulcer and has been offloading it by minimizing his walking. He's also completed a course of doxycycline that was given for a coag negative staph wound culture from the ulcer. He states his blood sugars are consistently below 120 and does not report hypoglycemia. 05/13/14 The patient reports minimal drainage from his right foot plantar ulcer. His recent wound culture from the site returned coag negative Staph and Diptheroids. 05/02/14 The patient reports less drainage from the right plantar foot ulcer and continues to off loading by minimizing walking and wearing a post-op shoe. 04/29/14 The patient continues to wear his surgical boot with the cutout for his right foot plantar diabetic ulcer. He reports no increase in drainage. 04/25/14 The patient reports minimal bloody drainage on the right foot plantar ulcer dressing that was placed yesterday. He does not report any drainage from the previously healed lateral foot ulcer. His edema in the right leg persists despite wearing compression stockings daily and his blood sugars remain well controlled below 120 with his last A1c approx 2 months ago at 7.4. 04/22/14 The patient reports no increase in drainage from his wounds today. He has been faithfully wearing his orthopedic boot with the cut-out area around his 5th MT ulcer. 04/15/14 The patient reports no increase in drainage from his wounds today. He reminds me that a TCC was the cause of his 5th MT ulcer and he is not excited about trying a TCC again. He is interested in HBOT if it will be beneficial to his wounds. 04/09/14 The patient reports increased drainage from his right 5th MT ulcer and feels his surgical boot he's been wearing for off loading may have caused pressure to the area. His blood sugars have improved and he also reports a 5 lb weight loss after doubling his dose of lasix over the past week. Of note, he did not liaise with his PCP prior to doing this. 04/04/14 The patient states that he was walking a bit more than usual yesterday but notes some sanguinous drainage on his plantar 1st MTPJ dressing for the past few days. He's also put on 7 lbs in the past week and feels his legs are more swollen than usual. He does not report chest pain, shortness of breath, or orthopnea. His blood sugars are also up a bit around 180. He's compliant with both his diabetes regimen and his diuretic therapy. 03/28/14 The patient reports no increased drainage or other complications from his right foot diabetic ulcers. 03/21/14 The patient reports minimal drainage from his right foot diabetic ulcers. He continues to minimally weight bear using a surgical boot and a walker. 03/14/14 The patient does not report increased drainage or other new issues regarding his right 5th MTPJ and right 1st MTPJ plantar ulcers. His blood sugars remain more elevated than usual with some between 150 and 180. 03/07/14 The patient reports no fever or increased right foot wound pain or drainage. 02/28/14 The patient reports that his blood sugar this morning is a bit elevated around 160 but has mostly been below 140 over the past few days. He's been off antibiotics for 3 days now and reports modest drainage from the right 5th MT ulcer while dressing changes are being done every two days. 02/24/14 The patient does not report any new issues regarding his right foot ulcers including increased drainage, fever, or chills. He completed his course of doxycycline yesterday. 02/17/14 The patient reports moderate yellow drainage from the right foot 5th MTPJ ulcer. He's completed a course of doxycycline and does not report fever or chills but states his blood sugars remain higher then normal in the 170's. His wound culture was positive for Enterobacter and his ESR was elevated at 41 and CRP at 2.7. 02/06/14 The patient does not report increased drainage from the right 5th MTPJ ulcer nor does he report fever or pain. He continues to off load with a walker and minimizing walking. He continues on doxycycline which was started empirically at his last visit and his culture has since grown Enterobacter which should be susceptible to doxy based on sensitivities. His xray of the foot was not concerning for osteomyelitis however his ESR and CRP are both moderately elevated. He also feels his legs are more swollen than usual and he continues to take his lasix as scheduled. 02/03/14 The patient does not report fever, chills, or pain in the right foot however when the TCC was removed today he's noted to have a sizable increase in the diameter and depth of what was a small 5th MTPJ ulcer. 01/14/14 The patient reports no new problems regarding is right diabetic foot ulcer. 12/31/13 The patient reports minimal serous drainage from his right 5th MTPJ ulcer and states he continues to off load his foot as much as possible. He does not report pain or drainage from the site of his right 1st MTPJ ulcer. 12/19/13 The patient tolerated with TCC without any complaints but there appears to be a small area of erythema over the right 5th MTPJ. He notes his blood sugars are typically below 120 and his A1c last week was 7.4. 12/13/13 The patient has no complaints regarding his TCC nor his plantar ulcer. 12/11/13 The patient returns for placement of a TCC today. He does not report any new problems regarding is plantar ulcer. 12/03/13 The patient states his plantar ulcer drainage is stable and he's continued to not use a cut-out foam doughnut over the ulcer. 11/26/13 The patient has kept the foam dressing in place from the last visit and has not used a cut-out foam dressing which we felt caused some deterioration of the foot ulcer. He has some mild drainage but no pain. 11/22/13 The patient returns for review of his plantar ulcer and callus that seems to be deteriorating despite an adjustment to his boot and off loading measures. The patient reports his callus accumulation is in spite of daily kerasal applications. Patient reports a new small wound on the left second toe. Josue states that it might be related to the brace. Patient had brace modified to help off load. 11/06/13 Josue states he was able to schedule with the prosthetic doctor tomorrow at noon. He reports no new problems or concerns. He also says that he is done with physical therapy since yesterday as insurance will not cover it any longer. 10/31/13 The patient reports he received his dressing supplies. Dressings changes are going well and no new problems are reported. He saw his engine builder, Dr. Solitario, on Monday for a check up and had and x-ray of the foot. 10/24/13 Josue reports he has been staying off of his feet as much as possible. He has been changing the dressing as ordered and states there has been just a small amount of drainage. He recently ran out of his dressings and will need more ordered or the balance sent home with him. 10/17/13 Patient states he has no new problems or concerns. He did have a small increase in drainage the other day but he had walked more than normal the day before. 10/09/13 Josue states he has no new issues. Dressing changes are going well. 10/02/13 Josue states there have been no new issues with dressing changes. They have been changed once since his last visit. No complaints of pain with the wound. 09/20/13 Josue was discharged from wound care September 05. States that he has been using pumice stone on callus area where had previous wound and may have been too aggressive. Also has been on feet more and having increase in lower extremity edema. Continues to wear the tetragrip F he had received in the clinic 6 hours per day but has not ordered any yet. 09/27/13 Patient states that there have been no issues with using the tetra obstetrics technician. Asking about getting compression stockings from drug store for continued use. 09/05/13 Patient states he has set up physical therapy for the problems with his knee. He starts these treatments on 09/11. There has been no new issues with his wound and he changes the dressings about every two days. He reports little to no drainage. 08/06/13 States no new problems with wound area. Been using kerosol daily. 08/19/13 Patient states he twisted his knee a week ago, and it is effecting his walk slightly. He also complains of more edema in his legs, and has an appointment with his PCP tomorrow regarding the issue. No new problems or concerns with his wound. No new problems or concerns. Patient states he changed the dressing a few times this last week. Saw Dr. Solitario this past week for check up with no change o his management. 07/26/13 The patient has had new brace for one week and so far it is working out well. No other complaints at this time. 07/18/13 Patient got brace for foot and leg yesterday. No problems or concerns. 07/11/13 No problems or concerns. Changed dressing twice since last visit 07/04/13- Pt went to his PCP and his lasix were increased from 20mg to 40mg. He states his edema has decreased since then. Pt's diabetic foot brace (decreases lateral movement to reduce pressure on the sides of his feet) will arrive in about another week. 06/20/13- Pt reports increased edema in his feet for the last week, he has been walking more, but also sitting with his feet down more. With the increase in exercise he states his back has been hurting. On Sunday 06/18 pt went to [facility],and had his ankle brace fitting. 05/31/[address] Green this am. Changed dressing twice this week. Saw trap puller (in [place]) on Monday. Considering ankle brace 05/24/13 states started walking program at 5 minutes at a time and taking the bus to clinic apt. 11/08/12 Pt is changing dressing every two days. Is concerned about the edema to the left leg that had the cellulitis. States it is warm. 11/15/12 patient has been having more nerve pain. He has been changing his dressing either every day or every other day. 11/22/12- Patient continues to change dressing about every day. No problems noted. Patient changing dressing about q o day. Thinks wound is less deep. 12/07/12 Pt only changed dressing twice since last visit. No concerns or problems. 12/18/12 When cleaning wound was able to aspirate large purlent sero-sang fluid from site. Pt states he feels it was doing better. 12/24/12 Decreased drainage and pt states he feels the wound is doing well. 12/31 Pt states he has had decreased draiange from wound. Pt denies pain. 01/07/13Pt states the kerasol didn't really do much, but admits he was only applying it every other day and is not sure what his expectations should be. He believes he may have bumped a toe on the left foot and has been concerned about some bruising there but admits it is getting better. Still does not have his new shoes and says he is exploring other options like disability. 01/21/13 feeling well since last visit. feels he may have bumped third toe so wants it to be seen. Level 2- 3 neuropathic pain in right foot 02/27/12 Patient changing bandaid on foot and applying kerasol every three days. Patient got new PCP and saw him yesterday. Patient states things are going well with the wound. 03/12/[address] Green for edema and will see him tomorrow for follow up.03/25/13 states has drainage from bottom of foot. concerned about new wounds Sates he changes dressing every 2 days. Changed this AM as it came off. Using Ca alginate and foam. States no drainage last night 04/19/13 changes dressing every 2-3 days. no problem. Has appt with Dr. Solitario 04/30/13 and new shoes have arrived. To be fitted next week 04/26/13 Is wearing new shoes and states they are working well.Changed dressing twice this week 05.03.[address] Solitario last week. will see again in [address] Green started antibiotic for sinus infection States sinuses not a lot better. Has started Lakshmi D, helping some. States wound about same. Changing dressing 2 x this week as dressing came off. States added collagen one time. Past Medical History This information was obtained from the patient Patient has a medical history of: Left lower extremity cellulitis - 10/15/2012 Diabetic foot ulcer - 09/27/2013 (Hernandez grade 2; right plantar surface; Hernandez grade III (Enterobacter positive wound culture 02/03/14), lateral right 5th MTPJ originally dx 12/24/13; MRSA positive culture 06/04/14 ) Chronic venous hypertension Type II Diabetes Hypertension Morbid Obesity Kidney Stones Hx MRSA Diabetic neuropathy Hallux valgus (right 1st toe) UTI (hospital admit) Cellulitis of legs (June and September 2012- hospital admit) Cataract surgery (10/13/15) Diabetic Neuropathy Complaints and Symptoms This information was obtained from the patient Patient complains of: General Notes: I have reviewed and concur with the Review of Systems and Past Family Social History documents completed by the clinician, I have reviewed and concur with the Wound Assessment document completed by the clinician Cardiovascular (Central/Peripheral): Lower extremity (leg) swelling Integumentary (Hair/Skin/Nails): Open Sore Musculoskeletal: Deformities, Muscle Weakness Neurological: Abnormal Gait, Loss of Protective Sensation Prior Wound History: Bleeding, Drainage Patient denies complaints or symptoms related to: Cardiovascular (Central): Irregular heart beat Cardiovascular (Central/Peripheral): Lower extremity (leg) resting pain Constitutional Symptoms (General Health): Chills, Fever, Marked Weight Change Ear/Nose/Mouth/Throat: Hearing Loss / Aid Gastrointestinal (GI): Nausea / Vomiting Hematologic/Lymphatic: Bleeding / Clotting Disorders, Bleeding Tendency Musculoskeletal: Assistive Devices Prior Wound History: Erythema, Malodor, Pain Psychiatric: Memory Loss Respiratory: Oxygen Use, Shortness of Breath OBJECTIVE Constitutional BP elevated; Afebrile; Alert and in no distress. Well developed. Alert. Clean appearing.. Height/Length: 71 in (180.34 cm), Weight: 353.8 lbs (160.82 kgs), BMI: 49.3, Temperature: 97.8 ?F (36.56 ?C), Pulse: 61 bpm, Respiratory Rate: 18 breaths/min, Blood Pressure: 141/62 mmHg, Capillary Blood Glucose: 169 mg/dl, Pulse Oximetry: 98 %. Vital Signs Notes: Glucose per patient. Ears, Nose, Mouth, and Throat: No clinically significant hearing loss on informal examination. Respiratory: No respiratory distress. Even respirations and without use of accessory muscles.. Gastrointestinal (GI): Obese. Nondistended.. 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 Integumentary (Hair, Skin) No periwound erythema, warmth, or significant drainage. No periwound rashes appreciated or noted otherwise.. Refer to appropriate clinician wound documentation for this visit; right foot ulcer extends to subcut with base partially covered with pink granulation, remainder fibrin and slough. Maceration and callus present in the periwound area. Wound #6 Right, Plantar Foot is a chronic Hernandez Grade 2 Diabetic Ulcer and has received a status of Not Healed. Subsequent wound encounter measurements are 1.2cm length x 0.5cm width x 0.3cm depth, with an area of 0.6 sq cm and a volume of 0.18 cubic cm. No tunneling has been noted. No sinus tract has been noted. No undermining has been noted. There is a moderate amount of sanguineous drainage noted which has no odor. The patient reports a wound pain of level 0/10. The wound margin is callus. Wound bed has Yes epithelialization, No eschar, No slough, Yes bright red, pink, firm granulation. The periwound skin moisture is normal. The periwound skin color is normal. The periwound skin exhibited: Callus. The periwound skin did not exhibit: Brawny Induration, Edema, Excoriation, Induration, Crepitus, Fluctuance, Friable, Rash. The temperature of the periwound skin is WNL. Periwound skin does not exhibit signs or symptoms of infection. Local Pulse is Palpable. Neurological: Cranial nerves grossly intact with symmetric function normal by informal observation.. ASSESSMENT Active Problems ICD-10 (Encounter Diagnosis) E11.621 - Type 2 diabetes mellitus with foot ulcer (Encounter Diagnosis) L97.512 - Non-pressure chronic ulcer of other part of right foot with fat layer exposed (Encounter Diagnosis) B95.7 - Other staphylococcus as the cause of diseases classified elsewhere PROCEDURES Wound #6 Wound #6 (Diabetic Ulcer) is located on the right, plantar foot. A skin/ subcutaneous tissue level surgical debridement with a total area debrided of 0.6 sq cm was performed by Stephen Nice MD. Subcutaneous was removed along with devitalized tissue: slough. The following instrument(s) were used: curette. Pain control was achieved using 4% Lido. A time out was conducted prior to the start of the procedure. A moderate amount of bleeding was controlled with silver nitrate. The procedure was tolerated well with a pain level of 0 throughout and a pain level of 0 following the procedure. Post Debridement Measurements: 1.2cm length x 0.5cm width x 0.4cm depth; with an area of 0.6 sq cm and a volume of 0.24 cubic cm; PLAN I've reviewed the clinician's documentation and agree with the evaluation and plan as written. In addition, the patient's ulcer demonstrates evidence of non-viable devitalized tissue which will continue to benefit from sharp debridement to help promote granulation and expedite healing. Also, due to the continued maceration I've increased dressing changes and application of gentamicin to daily for the next week. Electronic Signature(s) Signed By: Date: Stephen Nice MD 08/20/2017 17:52:31 Entered By: Stephen Nice on 08/20/2017 17:50:18
== END ==
PROVIDERS: PCP Family Medicine; Visit Provider Internal Medicine
DX: E11.621 Type 2 diabetes mellitus with foot ulcer (principal); L97.512 Non-pressure chronic ulcer of other part of right foot with fat layer exposed; B95.7 Other staphylococcus as the cause of diseases classified elsewhere
CPT/HCPCS: 11042

== ENCOUNTER → 2017-08-22 11:07 | Outpatient (CLI) | payer MEDICARE, OTHER, SELFPAY ==
--- NOTE | 2017-08-22 | OV.WND_ITS ---
Progress Note Details Patient Name: Josue Mesa Patient Number: [id number] PatientPatientDate: 08/22/2017 Clinician: Fay Moncada Physician / Smelting Engineer: Stephen Nice SUBJECTIVE Chief Complaint This information was obtained from the patient Diabetic ulcer to right plantar foot. Allergies Augmentin (Severity: Mild, Reaction: nausea) HPI This information was obtained from the patient 08/22/17. Seen by Dr. Nice. The patient was seen at [facility] and they provided a new orthotic insert to help better offload the chronic right 1st MTPJ diabetic ulcer while he's wearing his surgical, forefoot offloading show. He does not report increased drainage or pain associated with the ulcer and is using a knee scooter also to help offload. He has a severe valgus deformity which results in heavy callus formation and has required twice weekly debridements which has been effective in gradually promoting the ulcer to heal. He's also been applying topical gentamicin to the ulcer base to treat the recent coag negative Staph culture that was taken due to increased drainage. 08/18/17. Seen by Dr. Nice. The patient's wound culture taken from the chronic right foot diabetic ulcer at his last visit grew an intermediately resistant coag negative Staph and his dressing change and application of gentamicin is taking place only every 2-3 days. He does not report pain in the foot but staff report his dressing as being 'bloody' today. 08/15/17. Seen by Dr. Nice. The patient reports what may be increased drainage on his right foot diabetic ulcer dressings as mentioned by his critical care transport nurse in assisted living. He's using a knee scooter as recommended and does not report pain in the foot. He's also asking when it will be appropriate to have his right foot orthotic adjusted in his diabetic shoe although he's currently wearing a forefoot offloading shoe at all times. 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 08/11/17. Seen by Jean-Pierre Pinto PA-C. The patient reports stable drainage from his right foot diabetic ulcer. Again his blood sugars have been above 150 since his last visit. 08/08/17. Seen by Jean-Pierre Pinto PA-C. The patient reports no increase in drainage from his right foot diabetic ulcer. His blood sugars this week have reportedly been mostly above 150. 08/04/17. Seen by Dr. Nice. The patient does not report increased drainage associated with the chronic right plantar foot diabetic ulcer since his last visit and he's offloading appropriately as recommended. He also was seen by Dr. Solitario, podiatry, who discussed possible surgical options to address the severe right 1st toe valgus deformity that's complicating the ulcer and contributing to heavy periculcer callus formation however there's no plan of intervention at this time. 08/01/17. Seen by Dr. Nice. The patient does not report increased drainage associated with the chronic right plantar foot diabetic ulcer since his last visit and he's offloading appropriately as recommended. 07/28/17. Seen by Dr. Nice. The patient does not report increased drainage associated with the chronic right plantar foot diabetic ulcer since his last visit and he's offloading appropriately as recommended. We've increased his visits to twice weekly due to the very heavy callus formation that's contributing to the refractory nature of the ulcer. 07/25/17. Seen by Dr. Nice. The patient does not report increased drainage associated with the chronic right plantar foot diabetic ulcer since his last visit and he's offloading appropriately as recommended. Kerasal is not being applied to the periulcer callus and his visits have been decreased to once weekly over the past few weeks while the ulcer has been improving. 07/18/17. Seen by Dr. Nice. The patient does not report increased drainage associated with the chronic right plantar foot diabetic ulcer since his last visit and he's offloading appropriately as recommended. 07/11/17.Seen by Dr. Nice. The patient has been wearing his offloading shoe and using a knee scooter as recommended and does not report significant drainage associated with the chronic right plantar foot diabetic ulcer since his last visit. 07/04/17. Seen by Dr. Nice. The patient has been wearing his offloading shoe as recommended and does not report significant drainage associated with the chronic right plantar foot diabetic ulcer since his last visit. 06/30/17. Seen by Dr. Nice. The patient has been wearing his offloading shoe as recommended and does not report significant drainage associated with the chronic right plantar foot diabetic ulcer since his last visit. 06/27/2017. Seen by Dr. Nice. The patient has been wearing his offloading shoe as recommended and does not report significant drainage associated with the chronic right plantar foot diabetic ulcer since his last visit. His blood sugars are also mostly below 100 now and he's using his knee scooter as well to further optimize offloading. 06/23/2017. Seen by Dr. Nice. The patient does not report pain nor increased drainage associated with the chronic right plantar foot diabetic ulcer since his last visit. He is wearing his offloading shoe as recommended now and his blood sugar control has improved with some below 200. 06/20/2017. Some by Dr. Nice. The patient is not report increased drainage position with chronic right plantar foot diabetic ulcer since last visit. He is now clindamycin for the resistant Staphylococcus haemolyticus positive culture that was taken to the last visit. His blood sugars continued to be elevated and or over 300 earlier this morning despite having his Lantus dose increased recently. He is also wearing his diabetic shoes but not an offloading surgical shoe as I have been recommending. 06/16/17. Seen by Dr. Nice. The patient does not report increased drainage associated with chronic right plantar foot diabetic ulcers since his last visit. His recent wound culture grew a resistant coag negative staph organism. He also met with his primary care provider, Dr. Green, to increase his dosing of Lantus and plans to work with him on dietary measures to help gain better control of his elevated blood sugars. 06/13/17. Seen by Dr. Nice. The patient's blood sugars again are over 300 today and his appointment with his primary care provider to address this. He does not report any acute changes regarding the chronic right plantar foot diabetic ulcer and is using his knee scooter to help facilitate offloading as much as possible. 06/09/17. Seen by Dr. Nice. The patient does not report significant drainage associated with the chronic right plantar foot diabetic ulcer since his last visit. 06/06/17. Seen by Dr. Nice. The patient does not report significant drainage associated with the chronic right plantar foot diabetic ulcer since his last visit and he's lost another 7 lbs since increasing his dose of Lasix due to abnormal weight gain and significant bilateral lower extremity edema. 06/02/17. Seen by Dr. Nice. The patient does not report significant drainage associated with the chronic right plantar foot diabetic ulcer since his last visit. His increase his dose of Lasix and has lost 7 pounds over the past 3 days. This is been done due to the significant increase in leg swelling over the past 2 weeks. 05/30/17. Seen by Dr. Nice. The patient does not report increased drainage associated with chronic right plantar foot diabetic ulcer since his last visit however he does feel that the right foot and leg are swelling considerably over the past few days. We note a 4 pound weight gain since his last visit on Monday and he states is taking his diuretic as prescribed. 05/26/17. Seen by Dr. Nice. The patient does not report increased drainage associated with chronic right plantar foot diabetic ulcers since his last visit. His culture grew a somewhat resistant coag negative staph and he is not currently on antibiotics. 05/23/17. Seen by Dr. Nice. Staff reports some increased drainage on his dressings covering the chronic right plantar foot diabetic ulcer today. His blood sugar is again over 300 and he states he is eating rice and potatoes trying to cut back. He continues offload with his knee scooter as recommended and does not report pain or any other acute ulcer related issues today. 05/19/17. Seen by Dr. Nice. The patient does not report increased pain or drainage associated with chronic right plantar foot diabetic ulcer since his last visit. He is using his knee scooter as recommended and has had significant problems with heavy callus at the site due to a severe right first toe valgus deformity. He is now attending clinic twice weekly for debridement of the ulcer and complicating callous. 05/16/17. Seen by Dr. Nice. The patient does not report increased drainage or pain associated with chronic right plantar foot diabetic ulcer since his last visit. Of note, the patient's blood sugar as 271 today and his A1c was 9.8 in March. 05/12/17. Seen by Dr. Nice. The patient does not report increased pain or drainage associated with chronic right plantar foot diabetic ulcer since his last visit. He is using his knee scooter to help offload the site which is particularly important based on patient's morbid obesity coupled with his severe first MTPJ valgus deformity. 05/09/17. Seen by Dr. Nice. The patient does not report increased drainage or pain associated with the chronic right plantar foot diabetic ulcer since his last visit. He states his blood sugars continue to be above 200 consistently although are improving with compliance to a lower carbohydrate type diet. He was started on metformin about a month ago he complains of some intermittent upper extremity weakness since then and will be discussing this with his primary care provider. He is also awaiting his new diabetic shoes that are being adjusted to help accommodate for his severe right first toe valgus deformity. 05/02/17. Seen by Jean-Pierre Pinto PA-C. The patient reports stable drainage from his right 1st toe ulcer and blood sugars continue to be above goal. 04/25/17. Seen by Jean-Pierre Pinto PA-C. The patient reports his blood sugars have been above 150 this week. He does not report increased drainage from his right 1st toe diabetic ulcer. 04/18/17. Seen by Dr. Nice. The patient does not report increased drainage associated the chronic right first toe diabetic ulcers since his last visit. 04/11/17. Seen by Jean-Pierre Pinto PA-C. The patient reports he is developing more calloused areas on his feet and is concerned about new ulcers occurring. His chronic 1st toe diabetic ulcer has been stable. 04/04/17. Seen by Jean-Pierre Pinto PA-C. The patient reports he has not been able to get his blood sugars below 150. Drainage is reportedly decreased from his diabetic foot ulcer. 03/30/17. Seen by Jean-Pierre Pinto PA-C. The patient reports continued high blood sugars, all above 150. Drainage from his ulcer is not increased. 03/23/17. s Seen by Jean-Pierre Pinto PA-C. The patient reports blood sugars above 150 again this week. He is concerned that something must be going on with an infection as he believes his diet has not changed and thus his sugars should be lower. His wound has had stable drainage. 03/15/17. Seen by Jean-Pierre Pinto PA-C. The patient reports he has had some blood sugars above 150 this week. He reports no increase in drainage from his right 1st toe diabetic ulcer. 03/08/17. Seen by Dr. Nice. The patient was discharged from the hospital recently following treatment for cellulitis associated with the chronic right first toe diabetic ulcer. He grew MRSA from the wound culture and was treated with IV vancomycin and is now on Bactrim. He does not report pain nor significant drainage associated with the ulcer nor side effects from antibiotics. 02/23/17. Seen by Dr. Nice. The patient does not report increased drainage associated the chronic right first toe diabetic ulcers since his last visit. The patient also states that he is more active over the holidays and was unable to use his knee scooter at times while walking outside due to safety concerns. 02/08/17. Seen by Dr. Nice. The patient does not report increased drainage associated the chronic right first toe diabetic ulcers since his last visit. He states he is using his offloading shoe when at home and a knee scooter went out. 02/01/17. Seen by Dr. Nice. The patient does not report increasing pain or drainage associated with chronic right first toe diabetic ulcer since his last visit. 01/25/17. Seen by Dr. Nice. The patient does not report increasing pain or drainage associated with chronic right first toe diabetic ulcer since his last visit. 01/18/17. Seen by Dr. Ncie. The patient does not report increasing pain or drainage associated with chronic right first toe diabetic ulcer since his last visit. Of note, the patient's blood sugar is over 260 again today and he admits that it's been significantly elevated for a number of weeks. He has an appointment with his primary care provider to discuss this next week. 01/11/17. Seen by Dr. Nice. The patient does not report increasing pain or drainage associated with chronic right first toe diabetic ulcer since his last visit. He states his blood sugars have been running high recently and he is going to follow-up with his primary care provider in the near future to address this. 01/04/17. Seen by Dr. Nice. The patient does not report increased drainage associated with chronic right first foot diabetic ulcers since his last visit. He's also been applying Kersal to the periulcer as recommended. 12/28/16. Seen by Dr. Nice. The patient does not report increased drainage associated with chronic right first foot diabetic ulcers since his last visit. 12/22/16. Seen by Dr. Nice. The patient does not report increased drainage associated with chronic right first foot diabetic ulcers since his last visit. He's not been applying Kersal to the periulcer callus and does not appear to be using his knee scooter at all times to offload the ulcer. 12/15/16. Seen by Jean-Pierre Pinto PA-C. The patient reports he continues to have blood sugars above 150 this week. He recently saw his PCP, they did not alter his diabetic care plan. His visit was a follow up for an ER visit for chest pain which was negative for AL and was thought to be epigastric in origin. His diabetic ulcer of the right foot has not had increased drainage. 12/06/16. Seen by Jean-Pierre Pinto PA-C. The patient reports that he has found his knee scooter and plans to start using it today. He also reports most of his blood sugars have been above 150. Drainage from his ulcer has been stable. 11/25/16. Seen by Dr. Nice. The patient does not report increased drainage associated with chronic right first foot diabetic ulcers since his last visit. He is now on antibiotics for wound infection and does not report adverse side effects. Of note, he is not yet using a knee scooter nor offloading shoe as we recommended last week. 11/18/16. Seen by Dr. Nice. The patient returns to our clinic and presents with recurrence of a right first MTPJ plantar diabetic ulcer. He states it started a couple weeks ago when he was attempting to remove overlying callus at home. He does not report significant drainage or pain associated with the ulcer and is not currently on antibiotics. He also states his recent A1c was 7.8. His blood sugar in clinic today is 250. 01/11/16 Seen by Jean-Pierre Pinto PA-C. The patient reports no drainage from his chronic right 1st MTPJ joint since his last dressing change. 01/04/16 Seen by Jean-Pierre Pinto PA-C. The patient reports minimal drainage from his chronic right 1st MTPJ ulcer. He has recently seen his PCP and his A1c was 7.7. His lower extremity edema, abnormal weight gain and kidney failure are stable with his diuretics recently being adjusted. 12/28/15. Seen by Dr. Nice. The patient does not report significant drainage associated with the chronic right 1st MTPJ diabetic ulcer since his last visit however he does complain of increasing shortness of breath, fatigue, and an 18lb weight gain over the past week despite taking his diuretics as recommended. He does not report chest pain or cough and his blood sugars remain relatively well controlled with most below 150. 12/16/15. Seen by Dr. Nice. The patient does not report significant drainage associated with the chronic right 1st MTPJ diabetic ulcer since his last visit. He's applying kerasal to the surrounding callus as recommended and offloading nearly at all times using his knee scooter. 12/07/15 Seen by Jean-Pierre Pinto PA-C. The patient reports compliance with his new offloading brace and shoe and has seen minimal drainage from his diabetic foot ulcer since his last visit. 11/30/15. Seen by Dr. Nice. The patient does not report significant drainage associated with the chronic right 1st MTPJ diabetic ulcer since his last visit and he's wearing a combined AFO / diabetic shoe system that he feels may be better offloading the ulcer. 11/23/15 Seen by Jean-Pierre Pinto PA-C. The patient reports that he is wearing his new diabetic shoes and inserts. He is continuing physical therapy for gait training and reports continued difficulty with stairs and occasional bouts of dizziness. He reports stable drainage from his chronic right foot diabetic ulcer. 11/16/15 Seen by Jean-Pierre Pinto PA-C. The patient reports stable drainage from his right foot diabetic ulcer. He also reports that his diabetic shoes and inserts are quite old and worn out. He is ambulating with is 4 wheeled walker and is working with PT for gait training. 11/09/15 Seen by Jean-Pierre Pinto PA-C. The patient reports that he is still using a 4 wheeled walker instead of a 4 footed walker. PT is working with him to improve his gait and balance. Drainage from his right foot ulcer has been stable. 11/02/15 Seen by Jean-Pierre Pinto PA-C. The patient reports no increase in drainage from his chronic diabetic foot ulcer. He has had multiple blood sugars above 150 this week. 10/29/15. Seen by Dr. Nice. The patient was recently discharged from [facility] following treatment of sepsis thought to possibly be related to his chronic right 1st MTPJ diabetic ulcer that grew Enterococcus just prior to his admission. He now feels generally weak , has lost 18 lbs following diuresis, and is residing at home where he's minimizing his weight bearing on the right foot. He does not report significant drainage from the ulcer nor pain and states his blood sugars remain mostly around 150. He also continues on levofloxacin and does not report adverse side effects. 10/14/15. Seen by Dr. Nice. The patient report persistent bloody drainage from the chronic right 1st MTPJ diabetic ulcer and he feels the callus has increased significantly since it was last debrided 2 week ago. He does not report fevers or feeling unwell and states his blood sugars are well controlled with most below 150. He's using his AFO when walking nearly at all times to facilitate offloading the significant right 1st MTPJ valgus deformity. 09/24/15 Seen by Jean-Pierre Pinto PA-C. The patient reports that he is no ran out of lasix due to a mix up at the pharmacy and unavailability of his strength/dose of tablets. He continues trying to offload his ulcer with his wheeled walker and notes stable ulcer drainage. 09/17/15. Seen by Dr. Nice. The patient continues to report some bloody drainage from the chronic right 1st MTPJ diabetic ulcer and he's started reducing his activity and continues to use his knee scooter at home to offload the foot. 09/10/15. Seen by Dr. Nice. The patient states he was more active over the past week and notices increased bloody drainage associated with chronic right first MTPJ diabetic foot ulcer. He continues to wear his AFO and states his blood sugars are mostly below 150. 09/03/15. Seen by Dr. Nice. The patient does not report significant drainage associated with the chronic right first MTPJ diabetic ulcer over the past week. He does feel that the callus smaller than on previous visits and is wearing his AFO at all times. Of note, he 's now in doxycycline to treat the recent coag negative Staph cultured from the ulcer at his last visit. 08/27/[address] Nice. The patient reports increase bloody drainage associated with the chronic right foot 1st MTPJ diabetic ulcer and he feels his activity has increased due to physical therapy and increased mobility over the past week. He does not report pain at the ulcer site, fevers, or feeling unwell in general. 08/20/[address] Nice. The patient does not report significant drainage associated with the chronic right foot 1st MTPJ diabetic ulcer over the past week and he's using a knee scooter as much as possible when mobilizing to offload the foot. His blood sugars also remain relatively well controlled with most below 150. 08/13/[address] Nice. The patient does not report significant drainage associated with the chronic right foot diabetic ulcer over the past week and he's offloading using a knee scooter as recommended. His blood sugars remain relatively well controlled with most below 150. 08/06/[address] Nice. The patient reports recurrence of some drainage from the chronic right foot diabetic ulcer over the past few days and states he's been more active with physical therapy. His blood sugars remain well controlled with most below 150 and he's wearing his AFO when away from the house and using a knee scooter most of the time while at home to facilitate offloading. He's also applying Kerasal to the callus in the periwound area as recommended. 07/23/[address] Nice. The patient does not report drainage from the chronic right 1st MTPJ diabetic ulcer over the past week and he's using his new AFO and knee scooter to offload the foot. 07/16/[address] Nice. The patient does not report pain or drainage from the chronic right 1st MTPJ diabetic ulcer and he's wearing his newer AFO while offloading with a knee scooter most of the time. 07/09/[address] Nice. The patient does not report drainage or pain associated with his chronic right foot 1st MTPJ diabetic ulcer and he's been offloading by using a knee scooter when mobilizing. 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 He also states his blood sugars remain well controlled below 150 consistently. 07/03/[address] Nice. The patient does not report significant drainage from the chronic right foot diabetic ulcer and he's offloading by using his knee scooter. His blood sugars also remain relatively well controlled around 150 consistently. 06/26/[address] Nice. The patient report some continued bloody drainage from the chronic right 1st MTPJ diabetic ulcer however he does not report associated pain , fevers or feeling unwell. His blood sugars remain consistently below 150 and he's using his walker and knee scooter for offloading as recommended. He's also been actively working with his guard dance hall in hopes of better offloading the ulcer and address his significant callus formation and left 1st MTPJ valgus deformity. 06/19/[address] Nice. The patient does not report pain associated with his chronic right 1st MTPJ diabetic ulcer however he states some bloody drainage persists on the dressings. He does not report fevers or feeling unwell and states his blood sugars are well controlled below 150 consistently and he's using a knee scooter and walker to offload the ulcer when mobilizing. He also does not report pain or drainage associated with the left 2nd toe wound. 06/11/[address] Nice. The patient was recently discharged from [facility] following a fall at home that resulted in a broken rib. Regarding his chronic right 1st MTPJ diabetic ulcer he does not report significant drainage and has been offloading through bed rest and using a knee scooter while at home. His blood sugars also remain well controlled with most below 150. He also reports a new wound on the dorsum of the left 2nd toe that he believes occurred during his fall. He does not report associated pain or significant drainage. 05/28/[address] Nice. The patient reports some increased bloody drainage from the chronic right 1st MTPJ diabetic foot ulcer over the weekend associated with a new 'soft' area along the distal margin. He's been more active the past the past few days but states he's using his knee scooter to offload at all times. His blood sugars also remain well controlled with most around 120 and he's no longer on antibiotics. He also continues to wear his old AFO but states there was a recent adjustment of a cut out lined with 'soft' plastic in the area of the ulcer. 05/21/[address] Nice. The patient report less drainage from the chronic right foot 1st MTPJ diabetic ulcer over the past week. He's completed his course of doxycycline and he continues on fluconazole for the recent Alma Delia positive wound culture. He's also reverted back to using his previous AFO while his newer one is adjusted to try to address the recent significant increase in callus formation that's occurred. His blood sugars also remain well controlled under 150 consistently and his recent episodes of hypoglycemia has resolved with an adjustment of his insulin regimen. 05/14/[address] Nice. The patient reports less drainage on the dressings covering the chronic right 1st MTPJ diabetic ulcer since starting doxycycline for a coag negative Staph wound culture along with fluconazole for the alma delia positive culture. His blood sugars remain well controlled below 120 and his insulin has been decreased due to the recent episodes of hypoglycemia. His diuretic has also been decreased as he's lost considerable water weight over the past month. 05/07/[address] Nice. The patient continues to report modest bloody drainage on the dressing covering the chronic right 1st MTPJ diabetic ulcer and he continues to limit his walking but has not been using a knee scooter or walker around the house to facilitate offloading. His blood sugars remain well controlled mostly below 150. 04/30/[address] Nice. The patient continues to report bloody drainage on his right foot diabetic ulcer dressing and he's feeling a bit unwell in general without reporting specific symptoms. He also continues to have intermittent low blood sugars in the 50-60' s and has not discussed this issue with his PCP recently. He's wearing his AFO daily but admits to having difficulty using his walker at all times due to limited space in his new apartment. 04/27/15 Seen by Jean-Pierre Pinto PA-C. The patient reports nonspecific malaise for the past few days. Last night, he reports feeling to tired, weak and shaky to watch TV and went to bed very early. His malaise has been increasing over the past 1-2 weeks and he has frequently been monitoring his blood sugar. His blood sugars are lower than normal lately but never below 100. He has been reducing his insulin dosing in the past 2 weeks to compensate for the lower numbers. He continues to loose weight while continuing to take Lasix and metolazone. 04/23/[address] Nice. The staff and patient continue to report at least moderate serosanquinous drainage from the chronic right 1st MTPJ diabetic ulcer. His blood sugars have been well controlled over the past week with most below 150. He does report being more active than usual while he's been moving to his new home and he also states he continues to loose weight following a recent increase in his diruetics. His wound culture from the last visit reported heavy Diptheroids and he's not currently on antibiotics. 04/20/15 Seen by Jean-Pierre Pinto PA-C. The patient reports that he has moved house and has been on his feet much more so as a consequence. He reports increased drainage from his right plantar foot diabetic ulcer. In addition he believes he struck it against a hard surface when moving. He has had no significant pain with weightbearing but is insensate in this area. 04/15/[address] Nice. The patient reports continued weight loss, and decreasing leg swelling, since starting metolazone totaling about 20 lbs. He also feels the chronic right 1st MTPJ diabetic ulcer has been draining increasing amounts of sanguinous fluid. His blood sugars remain well controlled with most below 120 and he does not report fever or feeling unwell. 03/25/[address] Nice. The patient states he walked a considerable amount yesterday and now reports some bleeding from the chronic right 1st MTPJ diabetic foot ulcer. He also continues to report increased weight gain and now some shortness of breath when walking short distances. He has a low grade fever today but does not report a cough or feeling unwell otherwise. 03/11/2015 Seen by Jean-Pierre Pinto PA-C. The patient's weight has increased 10 lbs in the past week. He reports increased shortness of breath with exertion. He denies chest pain, jaw, neck, shoulder pain or shortness of breath at rest. He has been compliant with his diuretics. His ulcer drainage has been stable. 03/04/2015 Seen by Jean-Pierre Pinto PA-C. The patient is wearing his newly adjusted AFO and reports an increase in walking since last visit. He was unaware that his temperature was elevated and reports no URI symptoms such as cough or sore throat. 02/24/2015 Seen by Jean-Pierre Pinto PA-C. The patient believes his ulcer has now been draining more despite trying to offload the ulcer. 02/11/[address] Nice. The patient reports less drainage from the chronic right 1st toe diabetic ulcer and he's still waiting for approval for his new AFO. 02/04/[address] Nice. The patient feels the drainage from the right 1st MTPJ ulcer has decreased since last week and he's scheduled to see Dr. Solitario tomorrow to review his foot deformity and recurrent callus formation at the site of the ulcer. 01/30/[address] Nice. The patient returns to clinic and reports recurrence of the recently healed right 1st MTPJ diabetic foot ulcer with new moderate drainage and significant callus formation. He's not yet re-established with Dr. Solitario, podiatry, due to insurance issues and is awaiting approval for an adjustment for his AFO. His blood sugars remain controlled below 150 mostly and he does not report pain in the foot or fevers. 01/12/[address] Nice. The patient does not report drainage from the right 1st toe MTPJ ulcer and he's scheduled to have his new AFO fitted this week. 01/05/[address] Nice. The patient does not report drainage associated with the right 1st MTPJ diabetic foot ulcer however he states he has had some intermittent, very brief 'shooting' pain at the site of the ulcer the past few days. His blood sugars also remain between 120 and 150 mostly. 12/29/[address] Nice. The patient does not report drainage from the chronic right 1st MTPJ diabetic foot ulcer and he offloads using a walker and surgical shoe at all times except for when he wears a slipper around his small apartment. 12/22/[address] Nice. The patient does not report significant drainage from the right 1st MTPJ diabetic foot ulcer and he states his blood sugars are still in the 150 range with some over 180. 12/10/[address] Nice. The patient does not report significant drainage from the right 1st MTPJ diabetic foot ulcer. 12/04/[address] Nice. The patient does not report any drainage from the chronic right 1st MTPJ diabetic foot ulcer and he's still waiting for insurance approval for a custom, articulating AFO. His blood sugars also remain relatively well controlled below 150 consistently. He also continues to apply Kerasal to the associated callus daily. 11/20/[address] Nice. The patient's been feeling unwell the past week and feels he may have lost as much as 10 lbs due to poor oral intake. Otherwise he does not report any new problems regarding his right 1st MTPJ plantar diabetic ulcer. 11/07/[address] Nice. The patient reports only scant drainage from the right plantar diabetic foot ulcer. He's been offloading as recommending with a walker and is awaiting a approval for an articulating AFO. His blood sugars remain mostly well controlled below 150. 10/31/14 Seen by Jean-Pierre Pinto PA-C. The patient feels he has reached another plateau with regard to his wound healing. His right plantar diabetic ulcer continues to drain and has not improved recently. He is wearing his brace and reports compliance with offloading. 10/21/[address] Nice. The patient reports only scant drainage from his right 1st plantar surface MTPJ diabetic foot ulcer. He continues to offload with a frame walker and his blood sugars are moderately well controlled with most below 150. 10/14/[address] Nice. The patient does not report significant drainage from the right 1st plantar MTPJ ulcer. Of note, when discussing his blood sugars he mentions he's on both 70/30 insulin as well as Lantus and he frequently has blood sugars in the 150-200 range. 10/07/[address] Nice. The patient reports some modest drainage from the right 1st MTPJ plantar ulcer but no pain, erythema, or swelling. His blood sugars are mostly below 150 and he offloads with his AFO. 09/30/14 Seen by Jean-Pierre Pinto PA-C. The patient reports continued compliance with his AFO and he is trying to offload. He is scheduled now with PT for gait training and knee strengthening. He reports his knee is still sore at times and he feels unstable at times when using his offloading devices and AFO. 09/23/[address] Nice. The patient reports only minimal drainage from the right plantar 1st MTPJ ulcer. 09/16/14 Seen by Jean-Pierre Pinto PA-C. The patient continues to use his AFO, offloading shoe, knee scooter and frame walker to offload his wound. 09/09/14 Seen by Jean-Pierre Pinto PA-C. The patient has been wearing his AFO and offloading shoe together, with the added padding as designed by Sahra BOYD of [facility]. He reports that he feels unsteady and that his knee has felt strained and he discontinued using the brace as he is concerned that he has, or will, re-injure his right knee. He also is having difficulty using his knee scooter with the brace. One year ago , while attempting to offload his foot he did injure his knee and required physical therapy to recover. 08/19/14 Seen by Jean-Pierre Pinto PA-C. The patient's weight is down 10 lbs from his previous visit. His twice daily naproxen has been discontinued by his PCP in an effort to reduce his lower extremity edema. 08/15/14 Seen by Jean-Pierre Pinto PA-C. The patient continues to have weight fluctuations and large amounts of weight gain in short periods of time despite increased diuretic usage. 08/04/14 Seen by Jean-Pierre Pinto PA-C. The patient has been taking his Levaquin and again reports to the clinic with a low grade fever. He reports nearly daily application of Kerasal and his weight and edema have been stable on a higher dose of diuretics. Blood sugars remain stable on his current diabetic medications. 07/21/14 Seen by Jean-Pierre Pinto PA-C. The patient does not report fever, chills or URI symptoms. His wound drainage has been stable. 07/16/[address] Nice. The patient reports persistent but minimal drainage from the right foot plantar ulcer and continues to offload with a walker at all times. His blood sugar are mostly below 150 with a few around 170 the past few days. 07/01/14 The patient reports that he has gained 8lbs in 8 days. Denies SOB. Does not report fever or chills. 06/23/[address] Nice. The patient continues to offload with a knee scooter and walker at all times. He does not report significant drainage from the right plantar foot ulcer. 06/20/[address] Nice. The patient has been offloading his right foot ulcer with a walker and reports less drainage over the past 2 days. He's now off of antibiotics and his blood sugars remain well controlled below 150. 06/11/[address] Nice. The patient reports persistent drainage from the right foot plantar 1st MTPJ ulcer and he completed his course of doxycycline which was started for a MRSA positive culture from the ulcer site. His blood sugars have also been a bit elevated above 150 recently. He does not report fever or chills however. 06/04/14 The patient reports difficulty in offloading his wound due to inability to use crutches due to poor balance. He find the wheelchair difficult to use and his knee scooter is not rated for his weight. He denies fever, chills or URI symptoms. 05/28/14 The patient's been attempting to offload with a knee scooter but is concerned it may not be appropriate or stable based on his weight. He does not report increased drainage from he right plantar 1st MTPJ ulcer and his blood sugars remain well controlled below 120. 05/21/14 The patient reports only minimal sanguinous drainage from his right foot plantar ulcer and has been offloading it by minimizing his walking. He's also completed a course of doxycycline that was given for a coag negative staph wound culture from the ulcer. He states his blood sugars are consistently below 120 and does not report hypoglycemia. 05/13/14 The patient reports minimal drainage from his right foot plantar ulcer. His recent wound culture from the site returned coag negative Staph and Diptheroids. 05/02/14 The patient reports less drainage from the right plantar foot ulcer and continues to off loading by minimizing walking and wearing a post-op shoe. 04/29/14 The patient continues to wear his surgical boot with the cutout for his right foot plantar diabetic ulcer. He reports no increase in drainage. 04/25/14 The patient reports minimal bloody drainage on the right foot plantar ulcer dressing that was placed yesterday. He does not report any drainage from the previously healed lateral foot ulcer. His edema in the right leg persists despite wearing compression stockings daily and his blood sugars remain well controlled below 120 with his last A1c approx 2 months ago at 7.4. 04/22/14 The patient reports no increase in drainage from his wounds today. He has been faithfully wearing his orthopedic boot with the cut-out area around his 5th MT ulcer. 04/15/14 The patient reports no increase in drainage from his wounds today. He reminds me that a TCC was the cause of his 5th MT ulcer and he is not excited about trying a TCC again. He is interested in HBOT if it will be beneficial to his wounds. 04/09/14 The patient reports increased drainage from his right 5th MT ulcer and feels his surgical boot he's been wearing for off loading may have caused pressure to the area. His blood sugars have improved and he also reports a 5 lb weight loss after doubling his dose of lasix over the past week. Of note, he did not liaise with his PCP prior to doing this. 04/04/14 The patient states that he was walking a bit more than usual yesterday but notes some sanguinous drainage on his plantar 1st MTPJ dressing for the past few days. He's also put on 7 lbs in the past week and feels his legs are more swollen than usual. He does not report chest pain, shortness of breath, or orthopnea. His blood sugars are also up a bit around 180. He's compliant with both his diabetes regimen and his diuretic therapy. 03/28/14 The patient reports no increased drainage or other complications from his right foot diabetic ulcers. 03/21/14 The patient reports minimal drainage from his right foot diabetic ulcers. He continues to minimally weight bear using a surgical boot and a walker. 03/14/14 The patient does not report increased drainage or other new issues regarding his right 5th MTPJ and right 1st MTPJ plantar ulcers. His blood sugars remain more elevated than usual with some between 150 and 180. 03/07/14 The patient reports no fever or increased right foot wound pain or drainage. 02/28/14 The patient reports that his blood sugar this morning is a bit elevated around 160 but has mostly been below 140 over the past few days. He's been off antibiotics for 3 days now and reports modest drainage from the right 5th MT ulcer while dressing changes are being done every two days. 02/24/14 The patient does not report any new issues regarding his right foot ulcers including increased drainage, fever, or chills. He completed his course of doxycycline yesterday. 02/17/14 The patient reports moderate yellow drainage from the right foot 5th MTPJ ulcer. He's completed a course of doxycycline and does not report fever or chills but states his blood sugars remain higher then normal in the 170's. His wound culture was positive for Enterobacter and his ESR was elevated at 41 and CRP at 2.7. 02/06/14 The patient does not report increased drainage from the right 5th MTPJ ulcer nor does he report fever or pain. He continues to off load with a walker and minimizing walking. He continues on doxycycline which was started empirically at his last visit and his culture has since grown Enterobacter which should be susceptible to doxy based on sensitivities. His xray of the foot was not concerning for osteomyelitis however his ESR and CRP are both moderately elevated. He also feels his legs are more swollen than usual and he continues to take his lasix as scheduled. 02/03/14 The patient does not report fever, chills, or pain in the right foot however when the TCC was removed today he's noted to have a sizable increase in the diameter and depth of what was a small 5th MTPJ ulcer. 01/14/14 The patient reports no new problems regarding is right diabetic foot ulcer. 12/31/13 The patient reports minimal serous drainage from his right 5th MTPJ ulcer and states he continues to off load his foot as much as possible. He does not report pain or drainage from the site of his right 1st MTPJ ulcer. 12/19/13 The patient tolerated with TCC without any complaints but there appears to be a small area of erythema over the right 5th MTPJ. He notes his blood sugars are typically below 120 and his A1c last week was 7.4. 12/13/13 The patient has no complaints regarding his TCC nor his plantar ulcer. 12/11/13 The patient returns for placement of a TCC today. He does not report any new problems regarding is plantar ulcer. 12/03/13 The patient states his plantar ulcer drainage is stable and he's continued to not use a cut-out foam doughnut over the ulcer. 11/26/13 The patient has kept the foam dressing in place from the last visit and has not used a cut-out foam dressing which we felt caused some deterioration of the foot ulcer. He has some mild drainage but no pain. 11/22/13 The patient returns for review of his plantar ulcer and callus that seems to be deteriorating despite an adjustment to his boot and off loading measures. The patient reports his callus accumulation is in spite of daily kerasal applications. Patient reports a new small wound on the left second toe. Josue states that it might be related to the brace. Patient had brace modified to help off load. 11/06/13 Josue states he was able to schedule with the prosthetic doctor tomorrow at noon. He reports no new problems or concerns. He also says that he is done with physical therapy since yesterday as insurance will not cover it any longer. 10/31/13 The patient reports he received his dressing supplies. Dressings changes are going well and no new problems are reported. He saw his event decorator, Dr. Solitario, on Monday for a check up and had and x-ray of the foot. 10/24/13 Josue reports he has been staying off of his feet as much as possible. He has been changing the dressing as ordered and states there has been just a small amount of drainage. He recently ran out of his dressings and will need more ordered or the balance sent home with him. 10/17/13 Patient states he has no new problems or concerns. He did have a small increase in drainage the other day but he had walked more than normal the day before. 10/09/13 Josue states he has no new issues. Dressing changes are going well. 10/02/13 Josue states there have been no new issues with dressing changes. They have been changed once since his last visit. No complaints of pain with the wound. 09/20/13 Josue was discharged from wound care September 05. States that he has been using pumice stone on callus area where had previous wound and may have been too aggressive. Also has been on feet more and having increase in lower extremity edema. Continues to wear the tetragrip F he had received in the clinic 6 hours per day but has not ordered any yet. 09/27/13 Patient states that there have been no issues with using the tetra border measurer. Asking about getting compression stockings from drug store for continued use. 09/05/13 Patient states he has set up physical therapy for the problems with his knee. He starts these treatments on 09/11. There has been no new issues with his wound and he changes the dressings about every two days. He reports little to no drainage. 08/06/13 States no new problems with wound area. Been using kerosol daily. 08/19/13 Patient states he twisted his knee a week ago, and it is effecting his walk slightly. He also complains of more edema in his legs, and has an appointment with his PCP tomorrow regarding the issue. No new problems or concerns with his wound. No new problems or concerns. Patient states he changed the dressing a few times this last week. Saw Dr. Solitario this past week for check up with no change o his management. 07/26/13 The patient has had new brace for one week and so far it is working out well. No other complaints at this time. 07/18/13 Patient got brace for foot and leg yesterday. No problems or concerns. 07/11/13 No problems or concerns. Changed dressing twice since last visit 07/04/13- Pt went to his PCP and his lasix were increased from 20mg to 40mg. He states his edema has decreased since then. Pt's diabetic foot brace (decreases lateral movement to reduce pressure on the sides of his feet) will arrive in about another week. 06/20/13- Pt reports increased edema in his feet for the last week, he has been walking more, but also sitting with his feet down more. With the increase in exercise he states his back has been hurting. On Sunday 06/18 pt went to [facility],and had his ankle brace fitting. 05/31/[address] Green this am. Changed dressing twice this week. [facility] (in [place] on Monday. Considering ankle brace 05/24/13 states started walking program at 5 minutes at a time and taking the bus to clinic apt. 11/08/12 Pt is changing dressing every two days. Is concerned about the edema to the left leg that had the cellulitis. States it is warm. 11/15/12 patient has been having more nerve pain. He has been changing his dressing either every day or every other day. 11/22/12- Patient continues to change dressing about every day. No problems noted. Patient changing dressing about q o day. Thinks wound is less deep. 12/07/12 Pt only changed dressing twice since last visit. No concerns or problems. 12/18/12 When cleaning wound was able to aspirate large purlent sero-sang fluid from site. Pt states he feels it was doing better. 12/24/12 Decreased drainage and pt states he feels the wound is doing well. 12/31 Pt states he has had decreased draiange from wound. Pt denies pain. 01/07/13Pt states the kerasol didn't really do much, but admits he was only applying it every other day and is not sure what his expectations should be. He believes he may have bumped a toe on the left foot and has been concerned about some bruising there but admits it is getting better. Still does not have his new shoes and says he is exploring other options like disability. 01/21/13 feeling well since last visit. feels he may have bumped third toe so wants it to be seen. Level 2- 3 neuropathic pain in right foot 02/27/12 Patient changing bandaid on foot and applying kerasol every three days. Patient got new PCP and saw him yesterday. Patient states things are going well with the wound. 03/12/[address] Green for edema and will see him tomorrow for follow up.03/25/13 states has drainage from bottom of foot. concerned about new wounds Sates he changes dressing every 2 days. Changed this AM as it came off. Using Ca alginate and foam. States no drainage last night 04/19/13 changes dressing every 2-3 days. no problem. Has appt with Dr. Solitario 04/30/13 and new shoes have arrived. To be fitted next week 04/26/13 Is wearing new shoes and states they are working well.Changed dressing twice this week 05.03.[address] Solitario last week. will see again in [address] Green started antibiotic for sinus infection States sinuses not a lot better. Has started Lakshmi D, helping some. States wound about same. Changing dressing 2 x this week as dressing came off. States added collagen one time. Past Medical History This information was obtained from the patient Patient has a medical history of: Left lower extremity cellulitis - 10/15/2012 Diabetic foot ulcer - 09/27/2013 (Hernandez grade 2; right plantar surface; Hernandez grade III (Enterobacter positive wound culture 02/03/14), lateral right 5th MTPJ originally dx 12/24/13; MRSA positive culture 06/04/14 ) Chronic venous hypertension Type II Diabetes Hypertension Morbid Obesity Kidney Stones Hx MRSA Diabetic neuropathy Hallux valgus (right 1st toe) UTI (hospital admit) Cellulitis of legs (June and September 2012- hospital admit) Cataract surgery (10/13/15) Diabetic Neuropathy Complaints and Symptoms This information was obtained from the patient Patient complains of: General Notes: I have reviewed and concur with the Review of Systems and Past Family Social History documents completed by the clinician, I have reviewed and concur with the Wound Assessment document completed by the clinician Cardiovascular (Central/Peripheral): Lower extremity (leg) swelling Integumentary (Hair/Skin/Nails): Open Sore Musculoskeletal: Deformities, Muscle Weakness Neurological: Abnormal Gait, Loss of Protective Sensation Prior Wound History: Bleeding, Drainage Patient denies complaints or symptoms related to: Cardiovascular (Central): Irregular heart beat Cardiovascular (Central/Peripheral): Lower extremity (leg) resting pain Constitutional Symptoms (General Health): Chills, Fever, Marked Weight Change Ear/Nose/Mouth/Throat: Hearing Loss / Aid Gastrointestinal (GI): Nausea / Vomiting Hematologic/Lymphatic: Bleeding / Clotting Disorders, Bleeding Tendency Musculoskeletal: Assistive Devices Prior Wound History: Erythema, Malodor, Pain Psychiatric: Memory Loss Respiratory: Oxygen Use, Shortness of Breath OBJECTIVE Constitutional Vital signs reviewed and noted. Well developed. Alert. Clean appearing.. Height/ Length: 71 in (180.34 cm), Weight: 355.9 lbs (161.77 kgs), BMI: 49.6, Temperature: 98.6 ?F ( 37 ?C), Pulse: 73 bpm, Respiratory Rate: 18 breaths/min, Blood Pressure: 131/74 mmHg, Capillary Blood Glucose: 91 mg/dl, Pulse Oximetry: 98 %. Vital Signs Notes: Glucose per patient. Respiratory: No respiratory distress. Even respirations and without use of accessory muscles.. Cardiovascular: 1+ right lower extremity edema. Gastrointestinal (GI): Obese. Nondistended.. 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 Integumentary (Hair, Skin) No periwound erythema, warmth, or significant drainage. No periwound rashes appreciated or noted otherwise.. Refer to appropriate clinician wound documentation for this visit; right foot ulcer extends to subcut with base partially covered with pink granulation, remainder fibrin and slough. Significant amount of callus and maceration in the periulcer areas. Wound #6 Right, Plantar Foot is a chronic Hernandez Grade 2 Diabetic Ulcer and has received a status of Not Healed. Subsequent wound encounter measurements are 1.2cm length x 0.4cm width x 0.2cm depth, with an area of 0.48 sq cm and a volume of 0.096 cubic cm. No tunneling has been noted. No sinus tract has been noted. No undermining has been noted. There is a moderate amount of sanguineous drainage noted which has no odor. The patient reports a wound pain of level 0/10. The wound margin is callus. Wound bed has Yes epithelialization, No eschar, Yes slough, Yes bright red, pink, firm granulation. The periwound skin moisture is normal. The periwound skin color is normal. The periwound skin exhibited: Callus. The periwound skin did not exhibit: Brawny Induration, Edema, Excoriation, Induration, Crepitus, Fluctuance, Friable, Rash. The temperature of the periwound skin is WNL. Periwound skin does not exhibit signs or symptoms of infection. Local Pulse is Palpable. Neurological: Cranial nerves grossly intact with symmetric function normal by informal observation.. ASSESSMENT Active Problems ICD-10 (Encounter Diagnosis) E11.621 - Type 2 diabetes mellitus with foot ulcer (Encounter Diagnosis) L97.512 - Non-pressure chronic ulcer of other part of right foot with fat layer exposed (Encounter Diagnosis) B95.7 - Other staphylococcus as the cause of diseases classified elsewhere (Encounter Diagnosis) M21.6X1 - Other acquired deformities of right foot (Encounter Diagnosis) L84 - Corns and callosities PROCEDURES Wound #6 Wound #6 (Diabetic Ulcer) is located on the right, plantar foot. A skin/ subcutaneous tissue level surgical debridement with a total area debrided of 0.48 sq cm was performed by Stephen Nice MD. Subcutaneous was removed along with devitalized tissue: callus and slough. The following instrument(s) were used: curette. Pain control was achieved using 4% Lido. A time out was conducted prior to the start of the procedure. A moderate amount of bleeding was controlled with silver nitrate. The procedure was tolerated well with a pain level of 0 throughout and a pain level of 0 following the procedure. Post Debridement Measurements: 1.2cm length x 0.4cm width x 0.3cm depth; with an area of 0.48 sq cm and a volume of 0.144 cubic cm; Additional Information Muscle fascia or bone removed and sent to pathology?: No PLAN Wound Orders: Wound #6 Right, Plantar Foot Anesthetic Topical Xylocaine to wound bed. - In clinic only. Cleanser Cleanse Wound: - Normal saline and gauze. May Shower. - Do not get wound wet with tap water. Use cast protector when showering. Dressings Cover and secure with: - Foam and hypafix tape. Change Dressing: - Every day. Additional Orders: Off-Loading Keep weight off: - Right foot as much as possible. Use Knee scooter when able. Use/Wear when Walking: - Offloading shoe. Compression/Edema Control Elevation of leg(s) above the level of the heart when sitting. Avoid prolonged standing in one place. - Please avoid standing or walking for long periods of time. Knee-high gradient compression stockings. - Tetragrip F stockings to both legs. On in the morning and off at night. Follow-Up Appointments Return Appointment: - - Tuesdays and Fridays for callus removal. Other information: If you develop fever, chills, increased pain, drainage, redness or swelling please call our office. If after hours, respond to the ER. Should you experience any significant changes in your wound(s) or have any questions regarding your home care instructions please contact the wound center @ [phone]. If after hours, contact your primary care physician or go to the hospital emergency room. Scribing Attestation I attest, as the nurse, that I scribed these orders for the physician. I've reviewed the clinician's documentation and agree with the evaluation and plan as written. In addition, the patient's ulcer demonstrates evidence of non-viable devitalized tissue which will continue to benefit from sharp debridement to help promote granulation and expedite healing. Also, I've discontinued the topical gentamicin and we'll re-evaluate on Monday regarding any positive impact the new orthotic may have on reducing callus formation. Electronic Signature(s) Signed By: Date: Stephen Nice MD 08/24/2017 08:46:21 Entered By: Stephen Nice on 08/22/2017 10:09:12
== END ==
PROVIDERS: PCP Family Medicine; Visit Provider Internal Medicine
DX: E11.621 Type 2 diabetes mellitus with foot ulcer (principal); L97.512 Non-pressure chronic ulcer of other part of right foot with fat layer exposed; B95.7 Other staphylococcus as the cause of diseases classified elsewhere; M21.6X1 Other acquired deformities of right foot; L84 Corns and callosities
CPT/HCPCS: 11042

== ENCOUNTER → 2017-08-25 09:23 | Outpatient (CLI) | payer MEDICARE, OTHER, SELFPAY ==
--- NOTE | 2017-08-25 | OV.WND_ITS ---
Progress Note Details Patient Name: Josue Mesa Patient Number: [id number] PatientPatientDate: 08/25/2017 Clinician: Yajaira Alvarez Physician / It Associate: Stephen Nice SUBJECTIVE Chief Complaint This information was obtained from the patient Diabetic ulcer to right plantar foot. Allergies Augmentin (Severity: Mild, Reaction: nausea) HPI This information was obtained from the patient 08/25/17. Seen by Dr. Nice. The patient reports being more active and on a boat over the holiday which was no conducive to using his knee scooter. He feels the right 1st MTPJ ulcer has deteriorated and he has a new ulcer over the dorsum of the right 1st toe now. 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 08/22/17. Seen by Dr. Nice. The patient was seen at [facility] and they provided a new orthotic insert to help better offload the chronic right 1st MTPJ diabetic ulcer while he's wearing his surgical, forefoot offloading show. He does not report increased drainage or pain associated with the ulcer and is using a knee scooter also to help offload. He has a severe valgus deformity which results in heavy callus formation and has required twice weekly debridements which has been effective in gradually promoting the ulcer to heal. He's also been applying topical gentamicin to the ulcer base to treat the recent coag negative Staph culture that was taken due to increased drainage. 08/18/17. Seen by Dr. Nice. The patient's wound culture taken from the chronic right foot diabetic ulcer at his last visit grew an intermediately resistant coag negative Staph and his dressing change and application of gentamicin is taking place only every 2-3 days. He does not report pain in the foot but staff report his dressing as being 'bloody' today. 08/15/17. Seen by Dr. Nice. The patient reports what may be increased drainage on his right foot diabetic ulcer dressings as mentioned by his restorative care technician in assisted living. He's using a knee scooter as recommended and does not report pain in the foot. He's also asking when it will be appropriate to have his right foot orthotic adjusted in his diabetic shoe although he's currently wearing a forefoot offloading shoe at all times. 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 08/11/17. Seen by Jean-Pierre Pinto PA-C. The patient reports stable drainage from his right foot diabetic ulcer. Again his blood sugars have been above 150 since his last visit. 08/08/17. Seen by Jean-Pierre Pinto PA-C. The patient reports no increase in drainage from his right foot diabetic ulcer. His blood sugars this week have reportedly been mostly above 150. 08/04/17. Seen by Dr. Nice. The patient does not report increased drainage associated with the chronic right plantar foot diabetic ulcer since his last visit and he's offloading appropriately as recommended. He also was seen by Dr. Solitario, podiatry, who discussed possible surgical options to address the severe right 1st toe valgus deformity that's complicating the ulcer and contributing to heavy periculcer callus formation however there's no plan of intervention at this time. 08/01/17. Seen by Dr. Nice. The patient does not report increased drainage associated with the chronic right plantar foot diabetic ulcer since his last visit and he's offloading appropriately as recommended. 07/28/17. Seen by Dr. Nice. The patient does not report increased drainage associated with the chronic right plantar foot diabetic ulcer since his last visit and he's offloading appropriately as recommended. We've increased his visits to twice weekly due to the very heavy callus formation that's contributing to the refractory nature of the ulcer. 07/25/17. Seen by Dr. Nice. The patient does not report increased drainage associated with the chronic right plantar foot diabetic ulcer since his last visit and he's offloading appropriately as recommended. Kerasal is not being applied to the periulcer callus and his visits have been decreased to once weekly over the past few weeks while the ulcer has been improving. 07/18/17. Seen by Dr. Nice. The patient does not report increased drainage associated with the chronic right plantar foot diabetic ulcer since his last visit and he's offloading appropriately as recommended. 07/11/17.Seen by Dr. Nice. The patient has been wearing his offloading shoe and using a knee scooter as recommended and does not report significant drainage associated with the chronic right plantar foot diabetic ulcer since his last visit. 07/04/17. Seen by Dr. Nice. The patient has been wearing his offloading shoe as recommended and does not report significant drainage associated with the chronic right plantar foot diabetic ulcer since his last visit. 06/30/17. Seen by Dr. Nice. The patient has been wearing his offloading shoe as recommended and does not report significant drainage associated with the chronic right plantar foot diabetic ulcer since his last visit. 06/27/2017. Seen by Dr. Nice. The patient has been wearing his offloading shoe as recommended and does not report significant drainage associated with the chronic right plantar foot diabetic ulcer since his last visit. His blood sugars are also mostly below 100 now and he's using his knee scooter as well to further optimize offloading. 06/23/2017. Seen by Dr. Nice. The patient does not report pain nor increased drainage associated with the chronic right plantar foot diabetic ulcer since his last visit. He is wearing his offloading shoe as recommended now and his blood sugar control has improved with some below 200. 06/20/2017. Some by Dr. Nice. The patient is not report increased drainage position with chronic right plantar foot diabetic ulcer since last visit. He is now clindamycin for the resistant Staphylococcus haemolyticus positive culture that was taken to the last visit. His blood sugars continued to be elevated and or over 300 earlier this morning despite having his Lantus dose increased recently. He is also wearing his diabetic shoes but not an offloading surgical shoe as I have been recommending. 06/16/17. Seen by Dr. Nice. The patient does not report increased drainage associated with chronic right plantar foot diabetic ulcers since his last visit. His recent wound culture grew a resistant coag negative staph organism. He also met with his primary care provider, Dr. Green, to increase his dosing of Lantus and plans to work with him on dietary measures to help gain better control of his elevated blood sugars. 06/13/17. Seen by Dr. Nice. The patient's blood sugars again are over 300 today and his appointment with his primary care provider to address this. He does not report any acute changes regarding the chronic right plantar foot diabetic ulcer and is using his knee scooter to help facilitate offloading as much as possible. 06/09/17. Seen by Dr. Nice. The patient does not report significant drainage associated with the chronic right plantar foot diabetic ulcer since his last visit. 06/06/17. Seen by Dr. Nice. The patient does not report significant drainage associated with the chronic right plantar foot diabetic ulcer since his last visit and he's lost another 7 lbs since increasing his dose of Lasix due to abnormal weight gain and significant bilateral lower extremity edema. 06/02/17. Seen by Dr. Nice. The patient does not report significant drainage associated with the chronic right plantar foot diabetic ulcer since his last visit. His increase his dose of Lasix and has lost 7 pounds over the past 3 days. This is been done due to the significant increase in leg swelling over the past 2 weeks. 05/30/17. Seen by Dr. Nice. The patient does not report increased drainage associated with chronic right plantar foot diabetic ulcer since his last visit however he does feel that the right foot and leg are swelling considerably over the past few days. We note a 4 pound weight gain since his last visit on Monday and he states is taking his diuretic as prescribed. 05/26/17. Seen by Dr. Nice. The patient does not report increased drainage associated with chronic right plantar foot diabetic ulcers since his last visit. His culture grew a somewhat resistant coag negative staph and he is not currently on antibiotics. 05/23/17. Seen by Dr. Nice. Staff reports some increased drainage on his dressings covering the chronic right plantar foot diabetic ulcer today. His blood sugar is again over 300 and he states he is eating rice and potatoes trying to cut back. He continues offload with his knee scooter as recommended and does not report pain or any other acute ulcer related issues today. 05/19/17. Seen by Dr. Nice. The patient does not report increased pain or drainage associated with chronic right plantar foot diabetic ulcer since his last visit. He is using his knee scooter as recommended and has had significant problems with heavy callus at the site due to a severe right first toe valgus deformity. He is now attending clinic twice weekly for debridement of the ulcer and complicating callous. 05/16/17. Seen by Dr. Nice. The patient does not report increased drainage or pain associated with chronic right plantar foot diabetic ulcer since his last visit. Of note, the patient's blood sugar as 271 today and his A1c was 9.8 in March. 05/12/17. Seen by Dr. Nice. The patient does not report increased pain or drainage associated with chronic right plantar foot diabetic ulcer since his last visit. He is using his knee scooter to help offload the site which is particularly important based on patient's morbid obesity coupled with his severe first MTPJ valgus deformity. 05/09/17. Seen by Dr. Nice. The patient does not report increased drainage or pain associated with the chronic right plantar foot diabetic ulcer since his last visit. He states his blood sugars continue to be above 200 consistently although are improving with compliance to a lower carbohydrate type diet. He was started on metformin about a month ago he complains of some intermittent upper extremity weakness since then and will be discussing this with his primary care provider. He is also awaiting his new diabetic shoes that are being adjusted to help accommodate for his severe right first toe valgus deformity. 05/02/17. Seen by Jean-Pierre Pinto PA-C. The patient reports stable drainage from his right 1st toe ulcer and blood sugars continue to be above goal. 04/25/17. Seen by Jean-Pierre Pinto PA-C. The patient reports his blood sugars have been above 150 this week. He does not report increased drainage from his right 1st toe diabetic ulcer. 04/18/17. Seen by Dr. Nice. The patient does not report increased drainage associated the chronic right first toe diabetic ulcers since his last visit. 04/11/17. Seen by Jean-Pierre Pinto PA-C. The patient reports he is developing more calloused areas on his feet and is concerned about new ulcers occurring. His chronic 1st toe diabetic ulcer has been stable. 04/04/17. Seen by Jean-Pierre Pinto PA-C. The patient reports he has not been able to get his blood sugars below 150. Drainage is reportedly decreased from his diabetic foot ulcer. 03/30/17. Seen by Jean-Pierre Pinto PA-C. The patient reports continued high blood sugars, all above 150. Drainage from his ulcer is not increased. 03/23/17. s Seen by Jean-Pierre Pinto PA-C. The patient reports blood sugars above 150 again this week. He is concerned that something must be going on with an infection as he believes his diet has not changed and thus his sugars should be lower. His wound has had stable drainage. 03/15/17. Seen by Jean-Pierre Pinto PA-C. The patient reports he has had some blood sugars above 150 this week. He reports no increase in drainage from his right 1st toe diabetic ulcer. 03/08/17. Seen by Dr. Nice. The patient was discharged from the hospital recently following treatment for cellulitis associated with the chronic right first toe diabetic ulcer. He grew MRSA from the wound culture and was treated with IV vancomycin and is now on Bactrim. He does not report pain nor significant drainage associated with the ulcer nor side effects from antibiotics. 02/23/17. Seen by Dr. Nice. The patient does not report increased drainage associated the chronic right first toe diabetic ulcers since his last visit. The patient also states that he is more active over the holidays and was unable to use his knee scooter at times while walking outside due to safety concerns. 02/08/17. Seen by Dr. Nice. The patient does not report increased drainage associated the chronic right first toe diabetic ulcers since his last visit. He states he is using his offloading shoe when at home and a knee scooter went out. 02/01/17. Seen by Dr. Nice. The patient does not report increasing pain or drainage associated with chronic right first toe diabetic ulcer since his last visit. 01/25/17. Seen by Dr. Nice. The patient does not report increasing pain or drainage associated with chronic right first toe diabetic ulcer since his last visit. 01/18/17. Seen by Dr. Nice. The patient does not report increasing pain or drainage associated with chronic right first toe diabetic ulcer since his last visit. Of note, the patient's blood sugar is over 260 again today and he admits that it's been significantly elevated for a number of weeks. He has an appointment with his primary care provider to discuss this next week. 01/11/17. Seen by Dr. Nice. The patient does not report increasing pain or drainage associated with chronic right first toe diabetic ulcer since his last visit. He states his blood sugars have been running high recently and he is going to follow-up with his primary care provider in the near future to address this. 01/04/17. Seen by Dr. Nice. The patient does not report increased drainage associated with chronic right first foot diabetic ulcers since his last visit. He's also been applying Kersal to the periulcer as recommended. 12/28/16. Seen by Dr. Nice. The patient does not report increased drainage associated with chronic right first foot diabetic ulcers since his last visit. 12/22/16. Seen by Dr. Nice. The patient does not report increased drainage associated with chronic right first foot diabetic ulcers since his last visit. He's not been applying Kersal to the periulcer callus and does not appear to be using his knee scooter at all times to offload the ulcer. 12/15/16. Seen by Jean-Pierre Pinto PA-C. The patient reports he continues to have blood sugars above 150 this week. He recently saw his PCP, they did not alter his diabetic care plan. His visit was a follow up for an ER visit for chest pain which was negative for CA and was thought to be epigastric in origin. His diabetic ulcer of the right foot has not had increased drainage. 12/06/16. Seen by Jean-Pierre Pinto PA-C. The patient reports that he has found his knee scooter and plans to start using it today. He also reports most of his blood sugars have been above 150. Drainage from his ulcer has been stable. 11/25/16. Seen by Dr. Nice. The patient does not report increased drainage associated with chronic right first foot diabetic ulcers since his last visit. He is now on antibiotics for wound infection and does not report adverse side effects. Of note, he is not yet using a knee scooter nor offloading shoe as we recommended last week. 11/18/16. Seen by Dr. Nice. The patient returns to our clinic and presents with recurrence of a right first MTPJ plantar diabetic ulcer. He states it started a couple weeks ago when he was attempting to remove overlying callus at home. He does not report significant drainage or pain associated with the ulcer and is not currently on antibiotics. He also states his recent A1c was 7.8. His blood sugar in clinic today is 250. 01/11/16 Seen by Jean-Pierre Pinto PA-C. The patient reports no drainage from his chronic right 1st MTPJ joint since his last dressing change. 01/04/16 Seen by Jean-Pierre Pinto PA-C. The patient reports minimal drainage from his chronic right 1st MTPJ ulcer. He has recently seen his PCP and his A1c was 7.7. His lower extremity edema, abnormal weight gain and kidney failure are stable with his diuretics recently being adjusted. 12/28/15. Seen by Dr. Nice. The patient does not report significant drainage associated with the chronic right 1st MTPJ diabetic ulcer since his last visit however he does complain of increasing shortness of breath, fatigue, and an 18lb weight gain over the past week despite taking his diuretics as recommended. He does not report chest pain or cough and his blood sugars remain relatively well controlled with most below 150. 12/16/15. Seen by Dr. Nice. The patient does not report significant drainage associated with the chronic right 1st MTPJ diabetic ulcer since his last visit. He's applying kerasal to the surrounding callus as recommended and offloading nearly at all times using his knee scooter. 12/07/15 Seen by Jean-Pierre Pinto PA-C. The patient reports compliance with his new offloading brace and shoe and has seen minimal drainage from his diabetic foot ulcer since his last visit. 11/30/15. Seen by Dr. Nice. The patient does not report significant drainage associated with the chronic right 1st MTPJ diabetic ulcer since his last visit and he's wearing a combined AFO / diabetic shoe system that he feels may be better offloading the ulcer. 11/23/15 Seen by Jean-Pierre Pinto PA-C. The patient reports that he is wearing his new diabetic shoes and inserts. He is continuing physical therapy for gait training and reports continued difficulty with stairs and occasional bouts of dizziness. He reports stable drainage from his chronic right foot diabetic ulcer. 11/16/15 Seen by Jean-Pierre Pinto PA-C. The patient reports stable drainage from his right foot diabetic ulcer. He also reports that his diabetic shoes and inserts are quite old and worn out. He is ambulating with is 4 wheeled walker and is working with PT for gait training. 11/09/15 Seen by Jean-Pierre Pinto PA-C. The patient reports that he is still using a 4 wheeled walker instead of a 4 footed walker. PT is working with him to improve his gait and balance. Drainage from his right foot ulcer has been stable. 11/02/15 Seen by Jean-Pierre Pinto PA-C. The patient reports no increase in drainage from his chronic diabetic foot ulcer. He has had multiple blood sugars above 150 this week. 10/29/15. Seen by Dr. Nice. The patient was recently discharged from [facility] following treatment of sepsis thought to possibly be related to his chronic right 1st MTPJ diabetic ulcer that grew Enterococcus just prior to his admission. He now feels generally weak , has lost 18 lbs following diuresis, and is residing at home where he's minimizing his weight bearing on the right foot. He does not report significant drainage from the ulcer nor pain and states his blood sugars remain mostly around 150. He also continues on levofloxacin and does not report adverse side effects. 10/14/15. Seen by Dr. Nice. The patient report persistent bloody drainage from the chronic right 1st MTPJ diabetic ulcer and he feels the callus has increased significantly since it was last debrided 2 week ago. He does not report fevers or feeling unwell and states his blood sugars are well controlled with most below 150. He's using his AFO when walking nearly at all times to facilitate offloading the significant right 1st MTPJ valgus deformity. 09/24/15 Seen by Jean-Pierre Pinto PA-C. The patient reports that he is no ran out of lasix due to a mix up at the pharmacy and unavailability of his strength/dose of tablets. He continues trying to offload his ulcer with his wheeled walker and notes stable ulcer drainage. 09/17/15. Seen by Dr. Nice. The patient continues to report some bloody drainage from the chronic right 1st MTPJ diabetic ulcer and he's started reducing his activity and continues to use his knee scooter at home to offload the foot. 09/10/15. Seen by Dr. Nice. The patient states he was more active over the past week and notices increased bloody drainage associated with chronic right first MTPJ diabetic foot ulcer. He continues to wear his AFO and states his blood sugars are mostly below 150. 09/03/15. Seen by Dr. Nice. The patient does not report significant drainage associated with the chronic right first MTPJ diabetic ulcer over the past week. He does feel that the callus smaller than on previous visits and is wearing his AFO at all times. Of note, he 's now in doxycycline to treat the recent coag negative Staph cultured from the ulcer at his last visit. 08/27/[address] Nice. The patient reports increase bloody drainage associated with the chronic right foot 1st MTPJ diabetic ulcer and he feels his activity has increased due to physical therapy and increased mobility over the past week. He does not report pain at the ulcer site, fevers, or feeling unwell in general. 08/20/[address] Nice. The patient does not report significant drainage associated with the chronic right foot 1st MTPJ diabetic ulcer over the past week and he's using a knee scooter as much as possible when mobilizing to offload the foot. His blood sugars also remain relatively well controlled with most below 150. 08/13/[address] Nice. The patient does not report significant drainage associated with the chronic right foot diabetic ulcer over the past week and he's offloading using a knee scooter as recommended. His blood sugars remain relatively well controlled with most below 150. 08/06/[address] Nice. The patient reports recurrence of some drainage from the chronic right foot diabetic ulcer over the past few days and states he's been more active with physical therapy. His blood sugars remain well controlled with most below 150 and he's wearing his AFO when away from the house and using a knee scooter most of the time while at home to facilitate offloading. He's also applying Kerasal to the callus in the periwound area as recommended. 07/23/[address] Nice. The patient does not report drainage from the chronic right 1st MTPJ diabetic ulcer over the past week and he's using his new AFO and knee scooter to offload the foot. 07/16/[address] Nice. The patient does not report pain or drainage from the chronic right 1st MTPJ diabetic ulcer and he's wearing his newer AFO while offloading with a knee scooter most of the time. 07/09/[address] Nice. The patient does not report drainage or pain associated with his chronic right foot 1st MTPJ diabetic ulcer and he's been offloading by using a knee scooter when mobilizing. His wire bender hand is present today as well to discuss possible adjustments to his AFO with the goal of reducing callus formation that's in part caused by his significant right 1st toe valgus deformity. He also states his blood sugars remain well controlled below 150 consistently. 07/03/[address] Nice. The patient does not report significant drainage from the chronic right foot diabetic ulcer and he's offloading by using his knee scooter. His blood sugars also remain relatively well controlled around 150 consistently. 06/26/[address] Nice. The patient report some continued bloody drainage from the chronic right 1st MTPJ diabetic ulcer however he does not report associated pain , fevers or feeling unwell. His blood sugars remain consistently below 150 and he's using his walker and knee scooter for offloading as recommended. He's also been actively working with his wire bender hand in hopes of better offloading the ulcer and address his significant callus formation and left 1st MTPJ valgus deformity. 06/19/[address] Nice. The patient does not report pain associated with his chronic right 1st MTPJ diabetic ulcer however he states some bloody drainage persists on the dressings. He does not report fevers or feeling unwell and states his blood sugars are well controlled below 150 consistently and he's using a knee scooter and walker to offload the ulcer when mobilizing. He also does not report pain or drainage associated with the left 2nd toe wound. 06/11/[address] Nice. The patient was recently discharged from [facility] following a fall at home that resulted in a broken rib. Regarding his chronic right 1st MTPJ diabetic ulcer he does not report significant drainage and has been offloading through bed rest and using a knee scooter while at home. His blood sugars also remain well controlled with most below 150. He also reports a new wound on the dorsum of the left 2nd toe that he believes occurred during his fall. He does not report associated pain or significant drainage. 05/28/[address] Nice. The patient reports some increased bloody drainage from the chronic right 1st MTPJ diabetic foot ulcer over the weekend associated with a new 'soft' area along the distal margin. He's been more active the past the past few days but states he's using his knee scooter to offload at all times. His blood sugars also remain well controlled with most around 120 and he's no longer on antibiotics. He also continues to wear his old AFO but states there was a recent adjustment of a cut out lined with 'soft' plastic in the area of the ulcer. 05/21/[address] Nice. The patient report less drainage from the chronic right foot 1st MTPJ diabetic ulcer over the past week. He's completed his course of doxycycline and he continues on fluconazole for the recent Alma Delia positive wound culture. He's also reverted back to using his previous AFO while his newer one is adjusted to try to address the recent significant increase in callus formation that's occurred. His blood sugars also remain well controlled under 150 consistently and his recent episodes of hypoglycemia has resolved with an adjustment of his insulin regimen. 05/14/[address] Nice. The patient reports less drainage on the dressings covering the chronic right 1st MTPJ diabetic ulcer since starting doxycycline for a coag negative Staph wound culture along with fluconazole for the alma delia positive culture. His blood sugars remain well controlled below 120 and his insulin has been decreased due to the recent episodes of hypoglycemia. His diuretic has also been decreased as he's lost considerable water weight over the past month. 05/07/[address] Nice. The patient continues to report modest bloody drainage on the dressing covering the chronic right 1st MTPJ diabetic ulcer and he continues to limit his walking but has not been using a knee scooter or walker around the house to facilitate offloading. His blood sugars remain well controlled mostly below 150. 04/30/[address] Nice. The patient continues to report bloody drainage on his right foot diabetic ulcer dressing and he's feeling a bit unwell in general without reporting specific symptoms. He also continues to have intermittent low blood sugars in the 50-60' s and has not discussed this issue with his PCP recently. He's wearing his AFO daily but admits to having difficulty using his walker at all times due to limited space in his new apartment. 04/27/15 Seen by Jean-Pierre Pinto PA-C. The patient reports nonspecific malaise for the past few days. Last night, he reports feeling to tired, weak and shaky to watch TV and went to bed very early. His malaise has been increasing over the past 1-2 weeks and he has frequently been monitoring his blood sugar. His blood sugars are lower than normal lately but never below 100. He has been reducing his insulin dosing in the past 2 weeks to compensate for the lower numbers. He continues to loose weight while continuing to take Lasix and metolazone. 04/23/[address] Nice. The staff and patient continue to report at least moderate serosanquinous drainage from the chronic right 1st MTPJ diabetic ulcer. His blood sugars have been well controlled over the past week with most below 150. He does report being more active than usual while he's been moving to his new home and he also states he continues to loose weight following a recent increase in his diruetics. His wound culture from the last visit reported heavy Diptheroids and he's not currently on antibiotics. 04/20/15 Seen by Jean-Pierre Pinto PA-C. The patient reports that he has moved house and has been on his feet much more so as a consequence. He reports increased drainage from his right plantar foot diabetic ulcer. In addition he believes he struck it against a hard surface when moving. He has had no significant pain with weightbearing but is insensate in this area. 04/15/[address] Nice. The patient reports continued weight loss, and decreasing leg swelling, since starting metolazone totaling about 20 lbs. He also feels the chronic right 1st MTPJ diabetic ulcer has been draining increasing amounts of sanguinous fluid. His blood sugars remain well controlled with most below 120 and he does not report fever or feeling unwell. 03/25/[address] Nice. The patient states he walked a considerable amount yesterday and now reports some bleeding from the chronic right 1st MTPJ diabetic foot ulcer. He also continues to report increased weight gain and now some shortness of breath when walking short distances. He has a low grade fever today but does not report a cough or feeling unwell otherwise. 03/11/2015 Seen by Jean-Pierre Pinto PA-C. The patient's weight has increased 10 lbs in the past week. He reports increased shortness of breath with exertion. He denies chest pain, jaw, neck, shoulder pain or shortness of breath at rest. He has been compliant with his diuretics. His ulcer drainage has been stable. 03/04/2015 Seen by Jean-Pierre Pinto PA-C. The patient is wearing his newly adjusted AFO and reports an increase in walking since last visit. He was unaware that his temperature was elevated and reports no URI symptoms such as cough or sore throat. 02/24/2015 Seen by Jean-Pierre Pinto PA-C. The patient believes his ulcer has now been draining more despite trying to offload the ulcer. 02/11/[address] Nice. The patient reports less drainage from the chronic right 1st toe diabetic ulcer and he's still waiting for approval for his new AFO. 02/04/[address] Nice. The patient feels the drainage from the right 1st MTPJ ulcer has decreased since last week and he's scheduled to see Dr. Solitario tomorrow to review his foot deformity and recurrent callus formation at the site of the ulcer. 01/30/[address] Nice. The patient returns to clinic and reports recurrence of the recently healed right 1st MTPJ diabetic foot ulcer with new moderate drainage and significant callus formation. He's not yet re-established with Dr. Solitario, podiatry, due to insurance issues and is awaiting approval for an adjustment for his AFO. His blood sugars remain controlled below 150 mostly and he does not report pain in the foot or fevers. 01/12/[address] Nice. The patient does not report drainage from the right 1st toe MTPJ ulcer and he's scheduled to have his new AFO fitted this week. 01/05/[address] Nice. The patient does not report drainage associated with the right 1st MTPJ diabetic foot ulcer however he states he has had some intermittent, very brief 'shooting' pain at the site of the ulcer the past few days. His blood sugars also remain between 120 and 150 mostly. 12/29/[address] Nice. The patient does not report drainage from the chronic right 1st MTPJ diabetic foot ulcer and he offloads using a walker and surgical shoe at all times except for when he wears a slipper around his small apartment. 12/22/[address] Nice. The patient does not report significant drainage from the right 1st MTPJ diabetic foot ulcer and he states his blood sugars are still in the 150 range with some over 180. 12/10/[address] Nice. The patient does not report significant drainage from the right 1st MTPJ diabetic foot ulcer. 12/04/[address] Nice. The patient does not report any drainage from the chronic right 1st MTPJ diabetic foot ulcer and he's still waiting for insurance approval for a custom, articulating AFO. His blood sugars also remain relatively well controlled below 150 consistently. He also continues to apply Kerasal to the associated callus daily. 11/20/[address] Nice. The patient's been feeling unwell the past week and feels he may have lost as much as 10 lbs due to poor oral intake. Otherwise he does not report any new problems regarding his right 1st MTPJ plantar diabetic ulcer. 11/07/[address] Nice. The patient reports only scant drainage from the right plantar diabetic foot ulcer. He's been offloading as recommending with a walker and is awaiting a approval for an articulating AFO. His blood sugars remain mostly well controlled below 150. 10/31/14 Seen by Jean-Pierre Pinto PA-C. The patient feels he has reached another plateau with regard to his wound healing. His right plantar diabetic ulcer continues to drain and has not improved recently. He is wearing his brace and reports compliance with offloading. 10/21/[address] Nice. The patient reports only scant drainage from his right 1st plantar surface MTPJ diabetic foot ulcer. He continues to offload with a frame walker and his blood sugars are moderately well controlled with most below 150. 10/14/[address] Nice. The patient does not report significant drainage from the right 1st plantar MTPJ ulcer. Of note, when discussing his blood sugars he mentions he's on both 70/30 insulin as well as Lantus and he frequently has blood sugars in the 150-200 range. 10/07/[address] Nice. The patient reports some modest drainage from the right 1st MTPJ plantar ulcer but no pain, erythema, or swelling. His blood sugars are mostly below 150 and he offloads with his AFO. 09/30/14 Seen by Jean-Pierre Pinto PA-C. The patient reports continued compliance with his AFO and he is trying to offload. He is scheduled now with PT for gait training and knee strengthening. He reports his knee is still sore at times and he feels unstable at times when using his offloading devices and AFO. 09/23/[address] Nice. The patient reports only minimal drainage from the right plantar 1st MTPJ ulcer. 09/16/14 Seen by Jean-Pierre Pinto PA-C. The patient continues to use his AFO, offloading shoe, knee scooter and frame walker to offload his wound. 09/09/14 Seen by Jean-Pierre Pinto PA-C. The patient has been wearing his AFO and offloading shoe together, with the added padding as designed by Sahra BOYD of [facility]. He reports that he feels unsteady and that his knee has felt strained and he discontinued using the brace as he is concerned that he has, or will, re-injure his right knee. He also is having difficulty using his knee scooter with the brace. One year ago , while attempting to offload his foot he did injure his knee and required physical therapy to recover. 08/19/14 Seen by Jean-Pierre Pinto PA-C. The patient's weight is down 10 lbs from his previous visit. His twice daily naproxen has been discontinued by his PCP in an effort to reduce his lower extremity edema. 08/15/14 Seen by Jean-Pierer Pinto PA-C. The patient continues to have weight fluctuations and large amounts of weight gain in short periods of time despite increased diuretic usage. 08/04/14 Seen by Jean-Pierre Pinto PA-C. The patient has been taking his Levaquin and again reports to the clinic with a low grade fever. He reports nearly daily application of Kerasal and his weight and edema have been stable on a higher dose of diuretics. Blood sugars remain stable on his current diabetic medications. 07/21/14 Seen by Jean-Pierre Pinto PA-C. The patient does not report fever, chills or URI symptoms. His wound drainage has been stable. 07/16/[address] Nice. The patient reports persistent but minimal drainage from the right foot plantar ulcer and continues to offload with a walker at all times. His blood sugar are mostly below 150 with a few around 170 the past few days. 07/01/14 The patient reports that he has gained 8lbs in 8 days. Denies SOB. Does not report fever or chills. 06/23/[address] Nice. The patient continues to offload with a knee scooter and walker at all times. He does not report significant drainage from the right plantar foot ulcer. 06/20/[address] Nice. The patient has been offloading his right foot ulcer with a walker and reports less drainage over the past 2 days. He's now off of antibiotics and his blood sugars remain well controlled below 150. 06/11/[address] Nice. The patient reports persistent drainage from the right foot plantar 1st MTPJ ulcer and he completed his course of doxycycline which was started for a MRSA positive culture from the ulcer site. His blood sugars have also been a bit elevated above 150 recently. He does not report fever or chills however. 06/04/14 The patient reports difficulty in offloading his wound due to inability to use crutches due to poor balance. He find the wheelchair difficult to use and his knee scooter is not rated for his weight. He denies fever, chills or URI symptoms. 05/28/14 The patient's been attempting to offload with a knee scooter but is concerned it may not be appropriate or stable based on his weight. He does not report increased drainage from he right plantar 1st MTPJ ulcer and his blood sugars remain well controlled below 120. 05/21/14 The patient reports only minimal sanguinous drainage from his right foot plantar ulcer and has been offloading it by minimizing his walking. He's also completed a course of doxycycline that was given for a coag negative staph wound culture from the ulcer. He states his blood sugars are consistently below 120 and does not report hypoglycemia. 05/13/14 The patient reports minimal drainage from his right foot plantar ulcer. His recent wound culture from the site returned coag negative Staph and Diptheroids. 05/02/14 The patient reports less drainage from the right plantar foot ulcer and continues to off loading by minimizing walking and wearing a post-op shoe. 04/29/14 The patient continues to wear his surgical boot with the cutout for his right foot plantar diabetic ulcer. He reports no increase in drainage. 04/25/14 The patient reports minimal bloody drainage on the right foot plantar ulcer dressing that was placed yesterday. He does not report any drainage from the previously healed lateral foot ulcer. His edema in the right leg persists despite wearing compression stockings daily and his blood sugars remain well controlled below 120 with his last A1c approx 2 months ago at 7.4. 04/22/14 The patient reports no increase in drainage from his wounds today. He has been faithfully wearing his orthopedic boot with the cut-out area around his 5th MT ulcer. 04/15/14 The patient reports no increase in drainage from his wounds today. He reminds me that a TCC was the cause of his 5th MT ulcer and he is not excited about trying a TCC again. He is interested in HBOT if it will be beneficial to his wounds. 04/09/14 The patient reports increased drainage from his right 5th MT ulcer and feels his surgical boot he's been wearing for off loading may have caused pressure to the area. His blood sugars have improved and he also reports a 5 lb weight loss after doubling his dose of lasix over the past week. Of note, he did not liaise with his PCP prior to doing this. 04/04/14 The patient states that he was walking a bit more than usual yesterday but notes some sanguinous drainage on his plantar 1st MTPJ dressing for the past few days. He's also put on 7 lbs in the past week and feels his legs are more swollen than usual. He does not report chest pain, shortness of breath, or orthopnea. His blood sugars are also up a bit around 180. He's compliant with both his diabetes regimen and his diuretic therapy. 03/28/14 The patient reports no increased drainage or other complications from his right foot diabetic ulcers. 03/21/14 The patient reports minimal drainage from his right foot diabetic ulcers. He continues to minimally weight bear using a surgical boot and a walker. 03/14/14 The patient does not report increased drainage or other new issues regarding his right 5th MTPJ and right 1st MTPJ plantar ulcers. His blood sugars remain more elevated than usual with some between 150 and 180. 03/07/14 The patient reports no fever or increased right foot wound pain or drainage. 02/28/14 The patient reports that his blood sugar this morning is a bit elevated around 160 but has mostly been below 140 over the past few days. He's been off antibiotics for 3 days now and reports modest drainage from the right 5th MT ulcer while dressing changes are being done every two days. 02/24/14 The patient does not report any new issues regarding his right foot ulcers including increased drainage, fever, or chills. He completed his course of doxycycline yesterday. 02/17/14 The patient reports moderate yellow drainage from the right foot 5th MTPJ ulcer. He's completed a course of doxycycline and does not report fever or chills but states his blood sugars remain higher then normal in the 170's. His wound culture was positive for Enterobacter and his ESR was elevated at 41 and CRP at 2.7. 02/06/14 The patient does not report increased drainage from the right 5th MTPJ ulcer nor does he report fever or pain. He continues to off load with a walker and minimizing walking. He continues on doxycycline which was started empirically at his last visit and his culture has since grown Enterobacter which should be susceptible to doxy based on sensitivities. His xray of the foot was not concerning for osteomyelitis however his ESR and CRP are both moderately elevated. He also feels his legs are more swollen than usual and he continues to take his lasix as scheduled. 02/03/14 The patient does not report fever, chills, or pain in the right foot however when the TCC was removed today he's noted to have a sizable increase in the diameter and depth of what was a small 5th MTPJ ulcer. 01/14/14 The patient reports no new problems regarding is right diabetic foot ulcer. 12/31/13 The patient reports minimal serous drainage from his right 5th MTPJ ulcer and states he continues to off load his foot as much as possible. He does not report pain or drainage from the site of his right 1st MTPJ ulcer. 12/19/13 The patient tolerated with TCC without any complaints but there appears to be a small area of erythema over the right 5th MTPJ. He notes his blood sugars are typically below 120 and his A1c last week was 7.4. 12/13/13 The patient has no complaints regarding his TCC nor his plantar ulcer. 12/11/13 The patient returns for placement of a TCC today. He does not report any new problems regarding is plantar ulcer. 12/03/13 The patient states his plantar ulcer drainage is stable and he's continued to not use a cut-out foam doughnut over the ulcer. 11/26/13 The patient has kept the foam dressing in place from the last visit and has not used a cut-out foam dressing which we felt caused some deterioration of the foot ulcer. He has some mild drainage but no pain. 11/22/13 The patient returns for review of his plantar ulcer and callus that seems to be deteriorating despite an adjustment to his boot and off loading measures. The patient reports his callus accumulation is in spite of daily kerasal applications. Patient reports a new small wound on the left second toe. Josue states that it might be related to the brace. Patient had brace modified to help off load. 11/06/13 Josue states he was able to schedule with the prosthetic doctor tomorrow at noon. He reports no new problems or concerns. He also says that he is done with physical therapy since yesterday as insurance will not cover it any longer. 10/31/13 The patient reports he received his dressing supplies. Dressings changes are going well and no new problems are reported. He saw his coal and ash supervisor, Dr. Solitario, on Monday for a check up and had and x-ray of the foot. 10/24/13 Josue reports he has been staying off of his feet as much as possible. He has been changing the dressing as ordered and states there has been just a small amount of drainage. He recently ran out of his dressings and will need more ordered or the balance sent home with him. 10/17/13 Patient states he has no new problems or concerns. He did have a small increase in drainage the other day but he had walked more than normal the day before. 10/09/13 Josue states he has no new issues. Dressing changes are going well. 10/02/13 Josue states there have been no new issues with dressing changes. They have been changed once since his last visit. No complaints of pain with the wound. 09/20/13 Josue was discharged from wound care September 05. States that he has been using pumice stone on callus area where had previous wound and may have been too aggressive. Also has been on feet more and having increase in lower extremity edema. Continues to wear the tetragrip F he had received in the clinic 6 hours per day but has not ordered any yet. 09/27/13 Patient states that there have been no issues with using the tetra financial planning assistant. Asking about getting compression stockings from drug store for continued use. 09/05/13 Patient states he has set up physical therapy for the problems with his knee. He starts these treatments on 09/11. There has been no new issues with his wound and he changes the dressings about every two days. He reports little to no drainage. 08/06/13 States no new problems with wound area. Been using kerosol daily. 08/19/13 Patient states he twisted his knee a week ago, and it is effecting his walk slightly. He also complains of more edema in his legs, and has an appointment with his PCP tomorrow regarding the issue. No new problems or concerns with his wound. No new problems or concerns. Patient states he changed the dressing a few times this last week. Saw Dr. Solitario this past week for check up with no change o his management. 07/26/13 The patient has had new brace for one week and so far it is working out well. No other complaints at this time. 07/18/13 Patient got brace for foot and leg yesterday. No problems or concerns. 07/11/13 No problems or concerns. Changed dressing twice since last visit 07/04/13- Pt went to his PCP and his lasix were increased from 20mg to 40mg. He states his edema has decreased since then. Pt's diabetic foot brace (decreases lateral movement to reduce pressure on the sides of his feet) will arrive in about another week. 06/20/13- Pt reports increased edema in his feet for the last week, he has been walking more, but also sitting with his feet down more. With the increase in exercise he states his back has been hurting. On Sunday 06/18 pt went to [facility],and had his ankle brace fitting. 05/31/[address] Green this am. Changed dressing twice this week. Saw wire bender hand (in [place]) on Monday. Considering ankle brace 05/24/13 states started walking program at 5 minutes at a time and taking the bus to clinic apt. 11/08/12 Pt is changing dressing every two days. Is concerned about the edema to the left leg that had the cellulitis. States it is warm. 11/15/12 patient has been having more nerve pain. He has been changing his dressing either every day or every other day. 11/22/12- Patient continues to change dressing about every day. No problems noted. Patient changing dressing about q o day. Thinks wound is less deep. 12/07/12 Pt only changed dressing twice since last visit. No concerns or problems. 12/18/12 When cleaning wound was able to aspirate large purlent sero-sang fluid from site. Pt states he feels it was doing better. 12/24/12 Decreased drainage and pt states he feels the wound is doing well. 12/31 Pt states he has had decreased draiange from wound. Pt denies pain. 01/07/13Pt states the kerasol didn't really do much, but admits he was only applying it every other day and is not sure what his expectations should be. He believes he may have bumped a toe on the left foot and has been concerned about some bruising there but admits it is getting better. Still does not have his new shoes and says he is exploring other options like disability. 01/21/13 feeling well since last visit. feels he may have bumped third toe so wants it to be seen. Level 2- 3 neuropathic pain in right foot 02/27/12 Patient changing bandaid on foot and applying kerasol every three days. Patient got new PCP and saw him yesterday. Patient states things are going well with the wound. 03/12/[address] Green for edema and will see him tomorrow for follow up.03/25/13 states has drainage from bottom of foot. concerned about new wounds Sates he changes dressing every 2 days. Changed this AM as it came off. Using Ca alginate and foam. States no drainage last night 04/19/13 changes dressing every 2-3 days. no problem. Has appt with Dr. Solitario 04/30/13 and new shoes have arrived. To be fitted next week 04/26/13 Is wearing new shoes and states they are working well.Changed dressing twice this week 05.03.[address] Solitario last week. will see again in [address] Green started antibiotic for sinus infection States sinuses not a lot better. Has started Lakshmi D, helping some. States wound about same. Changing dressing 2 x this week as dressing came off. States added collagen one time. Past Medical History This information was obtained from the patient Patient has a medical history of: Left lower extremity cellulitis - 10/15/2012 Diabetic foot ulcer - 09/27/2013 (Hernandez grade 2; right plantar surface; Hernandez grade III (Enterobacter positive wound culture 02/03/14), lateral right 5th MTPJ originally dx 12/24/13; MRSA positive culture 06/04/14 ) Chronic venous hypertension Type II Diabetes Hypertension Morbid Obesity Kidney Stones Hx MRSA Diabetic neuropathy Hallux valgus (right 1st toe) UTI (hospital admit) Cellulitis of legs (June and September 2012- hospital admit) Cataract surgery (10/13/15) Diabetic Neuropathy Complaints and Symptoms This information was obtained from the patient Patient complains of: General Notes: I have reviewed and concur with the Review of Systems and Past Family Social History documents completed by the clinician, I have reviewed and concur with the Wound Assessment document completed by the clinician Cardiovascular (Central/Peripheral): Lower extremity (leg) swelling Integumentary (Hair/Skin/Nails): Open Sore Musculoskeletal: Deformities, Muscle Weakness Neurological: Abnormal Gait, Loss of Protective Sensation Prior Wound History: Bleeding, Drainage Patient denies complaints or symptoms related to: Cardiovascular (Central): Irregular heart beat Cardiovascular (Central/Peripheral): Lower extremity (leg) resting pain Constitutional Symptoms (General Health): Chills, Fever, Marked Weight Change Ear/Nose/Mouth/Throat: Hearing Loss / Aid Gastrointestinal (GI): Nausea / Vomiting Hematologic/Lymphatic: Bleeding / Clotting Disorders, Bleeding Tendency Musculoskeletal: Assistive Devices Prior Wound History: Erythema, Malodor, Pain Psychiatric: Memory Loss Respiratory: Oxygen Use, Shortness of Breath OBJECTIVE Constitutional Vital signs reviewed and noted. Well developed. Alert. Clean appearing.. Height/ Length: 71 in (180.34 cm), Weight: 385.5 lbs (175.23 kgs), BMI: 53.8, Temperature: 98.6 ?F ( 37 ?C), Pulse: 74 bpm, Respiratory Rate: 18 breaths/min, Blood Pressure: 130/75 mmHg, Capillary Blood Glucose: 173 mg/dl, Pulse Oximetry: 98 %. Vital Signs Notes: Glucose per patient. Ears, Nose, Mouth, and Throat: No clinically significant hearing loss on informal examination. Respiratory: No respiratory distress. Even respirations and without use of accessory muscles.. Cardiovascular: 1+ right lower extremity edema. Gastrointestinal (GI): Obese. Nondistended.. Integumentary (Hair, Skin) No periwound erythema, warmth, or significant drainage. No periwound rashes appreciated or noted otherwise.. Refer to appropriate clinician wound documentation for this visit; right 1st MTPJ and dorsal toe ulcers extend to subcut with bases partially covered with pink granulation, remainder fibrin and slough. Significant amount of callus in the periulcer area. Wound #6 Right, Plantar Foot is a chronic Hernandez Grade 2 Diabetic Ulcer and has received a status of Not Healed. Subsequent wound encounter measurements are 1.5cm length x 0.5cm width x 0.2cm depth, with an area of 0.75 sq cm and a volume of 0.15 cubic cm. No tunneling has been noted. No sinus tract has been noted. No undermining has been noted. There is a moderate amount of sanguineous drainage noted which has no odor. The patient reports a wound pain of level 0/10. The wound margin is callus. Wound bed has Yes epithelialization, No eschar, Yes slough, Yes bright red, pink, firm granulation. The periwound skin moisture is normal. The periwound skin color is normal. The periwound skin exhibited: Callus. The periwound skin did not exhibit: Brawny Induration, Edema, Excoriation, Induration, Crepitus, Fluctuance, Friable, Rash. The temperature of the periwound skin is WNL. Periwound skin does not exhibit signs or symptoms of infection. Local Pulse is Palpable. Wound #7 Right Great Toe is an acute Hernandez Grade 1 Diabetic Ulcer and has received a status of Not Healed. Initial wound encounter measurements are 0.9cm length x 0.2cm width x 0.1cm depth, with an area of 0.18 sq cm and a volume of 0.018 cubic cm. No tunneling has been noted. No sinus tract has been noted. No undermining has been noted. There is a scant amount of sero-sanguineous drainage noted which has no odor. The patient reports a wound pain of level 0/10. The wound margin is attached. Wound bed has Yes epithelialization, No eschar, No slough, Yes bright red, pink, firm granulation. The periwound skin texture is normal. The periwound skin moisture is normal. The periwound skin color is normal. Neurological: Cranial nerves grossly intact with symmetric function normal by informal observation.. ASSESSMENT Active Problems ICD-10 (Encounter Diagnosis) E11.621 - Type 2 diabetes mellitus with foot ulcer (Encounter Diagnosis) L97.512 - Non-pressure chronic ulcer of other part of right foot with fat layer exposed (Encounter Diagnosis) M21.6X1 - Other acquired deformities of right foot (Encounter Diagnosis) L84 - Corns and callosities (Encounter Diagnosis) E66.01 - Morbid (severe) obesity due to excess calories PROCEDURES Wound #6 Wound #6 (Diabetic Ulcer) is located on the right, plantar foot. A skin/ subcutaneous tissue level surgical debridement with a total area debrided of 1.8 sq cm was performed by Stephen Nice MD. Epidermis and Subcutaneous were removed along with devitalized tissue: callus and slough. The following instrument(s) were used: forceps and scissors. Pain control was achieved using 4% Lido. A time out was conducted prior to the start of the procedure. A minimal amount of bleeding was controlled with silver nitrate. The procedure was tolerated well with a pain level of 0 throughout and a pain level of 0 following the procedure. Post Debridement Measurements: 2cm length x 0.9cm width x 0.3cm depth; with an area of 1.8 sq cm and a volume of 0.54 cubic cm; Additional Information Muscle fascia or bone removed and sent to pathology?: No PLAN Wound Orders: Wound #6 Right, Plantar Foot Anesthetic Topical Xylocaine to wound bed. - In clinic only. Cleanser Cleanse Wound: - Normal saline and gauze. May Shower. - Do not get wound wet with tap water. Use cast protector when showering. Topical Treatments Antibiotic/Antimicrobial Ointment/Cream. - Triple antibiotic. Dressings Cover and secure with: - Foam and hypafix tape. Change Dressing: - Every other day Wound #8 Right Great Toe Anesthetic Topical Xylocaine to wound bed. - In clinic only. Cleanser Cleanse Wound: - Normal saline and gauze. May Shower. - Do not get wound wet with tap water. Use cast protector when showering. Topical Treatments Antibiotic/Antimicrobial Ointment/Cream. - Triple antibiotic. Dressings Cover and secure with: - Foam and hypafix tape. Change Dressing: - Every other day Additional Orders: Off-Loading Keep weight off: - Right foot as much as possible. Use Knee scooter when able. Use/Wear when Walking: - Offloading shoe. Compression/Edema Control Elevation of leg(s) above the level of the heart when sitting. Avoid prolonged standing in one place. - Please avoid standing or walking for long periods of time. Knee-high gradient compression stockings. - Tetragrip F stockings to both legs. On in the morning and off at night. Follow-Up Appointments Return Appointment: - - Tuesdays and Fridays for callus removal. Other information: If you develop fever, chills, increased pain, drainage, redness or swelling please call our office. If after hours, respond to the ER. Should you experience any significant changes in your wound(s) or have any questions regarding your home care instructions please contact the wound center @ [phone]. If after hours, contact your primary care physician or go to the hospital emergency room. Scribing Attestation I attest, as the nurse, that I scribed these orders for the physician. I've reviewed the clinician's documentation and agree with the evaluation and plan as written. In addition, the patient's ulcer demonstrates evidence of non-viable devitalized tissue which will continue to benefit from sharp debridement to help promote granulation and expedite healing. Also, I've strongly reinforced the need to offload the right foot at all times with his knee scooter and help minimize callus formation and trauma to the right foot MTPJ ulcer. Electronic Signature(s) Signed By: Date: Stephen Nice MD 08/25/2017 15:59:11 Entered By: Stephen Nice on 08/25/2017 14:27:39
== END ==
PROVIDERS: PCP Family Medicine; Visit Provider Internal Medicine
DX: E11.621 Type 2 diabetes mellitus with foot ulcer (principal); L97.512 Non-pressure chronic ulcer of other part of right foot with fat layer exposed; M21.6X1 Other acquired deformities of right foot; L84 Corns and callosities; E66.01 Morbid (severe) obesity due to excess calories
CPT/HCPCS: 11042

== ENCOUNTER → 2017-08-29 10:56 | Outpatient (CLI) | payer MEDICARE, OTHER, SELFPAY ==
--- NOTE | 2017-08-29 | OV.WND_ITS ---
Progress Note Details Patient Name: Josue Mesa Patient Number: [id number] PatientPatientDate: 08/29/2017 Clinician: Fay Moncada Clinician Cosigner: Digna Diallo Physician / Termite Exterminator Helper: Stephen Nice SUBJECTIVE Chief Complaint This information was obtained from the patient Diabetic ulcer to right plantar foot and great toe. Allergies Augmentin (Severity: Mild, Reaction: nausea) HPI This information was obtained from the patient 08/29/17. Seen by Dr. Nice. The patient does not report increased drainage associated with the chronic right 1st MTPJ diabetic ulcer since his last visit. He does complain of progressive upper extremity tremors that are most noticeable in the morning and evening and may occur after he takes his metformin. He does not report low blood sugars and he'll bee seeing his PCP today to discuss this. 08/25/17. Seen by Dr. Nice. The patient reports being more active and on a boat over the holiday which was no conducive to using his knee scooter. He feels the right 1st MTPJ ulcer has deteriorated and he has a new ulcer over the dorsum of the right 1st toe now. 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 08/22/17. Seen by Dr. Nice. The patient was seen at [facility] and they provided a new orthotic insert to help better offload the chronic right 1st MTPJ diabetic ulcer while he's wearing his surgical, forefoot offloading show. He does not report increased drainage or pain associated with the ulcer and is using a knee scooter also to help offload. He has a severe valgus deformity which results in heavy callus formation and has required twice weekly debridements which has been effective in gradually promoting the ulcer to heal. He's also been applying topical gentamicin to the ulcer base to treat the recent coag negative Staph culture that was taken due to increased drainage. 08/18/17. Seen by Dr. Nice. The patient's wound culture taken from the chronic right foot diabetic ulcer at his last visit grew an intermediately resistant coag negative Staph and his dressing change and application of gentamicin is taking place only every 2-3 days. He does not report pain in the foot but staff report his dressing as being 'bloody' today. 08/15/17. Seen by Dr. Nice. The patient reports what may be increased drainage on his right foot diabetic ulcer dressings as mentioned by his physician assistant primary care in assisted living. He's using a knee scooter as recommended and does not report pain in the foot. He's also asking when it will be appropriate to have his right foot orthotic adjusted in his diabetic shoe although he's currently wearing a forefoot offloading shoe at all times. 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 08/11/17. Seen by Jean-Pierre Pinto PA-C. The patient reports stable drainage from his right foot diabetic ulcer. Again his blood sugars have been above 150 since his last visit. 08/08/17. Seen by Jean-Pierre Pinto PA-C. The patient reports no increase in drainage from his right foot diabetic ulcer. His blood sugars this week have reportedly been mostly above 150. 08/04/17. Seen by Dr. Nice. The patient does not report increased drainage associated with the chronic right plantar foot diabetic ulcer since his last visit and he's offloading appropriately as recommended. He also was seen by Dr. Solitario, podiatry, who discussed possible surgical options to address the severe right 1st toe valgus deformity that's complicating the ulcer and contributing to heavy periculcer callus formation however there's no plan of intervention at this time. 08/01/17. Seen by Dr. Nice. The patient does not report increased drainage associated with the chronic right plantar foot diabetic ulcer since his last visit and he's offloading appropriately as recommended. 07/28/17. Seen by Dr. iNce. The patient does not report increased drainage associated with the chronic right plantar foot diabetic ulcer since his last visit and he's offloading appropriately as recommended. We've increased his visits to twice weekly due to the very heavy callus formation that's contributing to the refractory nature of the ulcer. 07/25/17. Seen by Dr. Nice. The patient does not report increased drainage associated with the chronic right plantar foot diabetic ulcer since his last visit and he's offloading appropriately as recommended. Kerasal is not being applied to the periulcer callus and his visits have been decreased to once weekly over the past few weeks while the ulcer has been improving. 07/18/17. Seen by Dr. Nice. The patient does not report increased drainage associated with the chronic right plantar foot diabetic ulcer since his last visit and he's offloading appropriately as recommended. 07/11/17.Seen by Dr. Nice. The patient has been wearing his offloading shoe and using a knee scooter as recommended and does not report significant drainage associated with the chronic right plantar foot diabetic ulcer since his last visit. 07/04/17. Seen by Dr. Nice. The patient has been wearing his offloading shoe as recommended and does not report significant drainage associated with the chronic right plantar foot diabetic ulcer since his last visit. 06/30/17. Seen by Dr. Nice. The patient has been wearing his offloading shoe as recommended and does not report significant drainage associated with the chronic right plantar foot diabetic ulcer since his last visit. 06/27/2017. Seen by Dr. iNce. The patient has been wearing his offloading shoe as recommended and does not report significant drainage associated with the chronic right plantar foot diabetic ulcer since his last visit. His blood sugars are also mostly below 100 now and he's using his knee scooter as well to further optimize offloading. 06/23/2017. Seen by Dr. Nice. The patient does not report pain nor increased drainage associated with the chronic right plantar foot diabetic ulcer since his last visit. He is wearing his offloading shoe as recommended now and his blood sugar control has improved with some below 200. 06/20/2017. Some by Dr. Nice. The patient is not report increased drainage position with chronic right plantar foot diabetic ulcer since last visit. He is now clindamycin for the resistant Staphylococcus haemolyticus positive culture that was taken to the last visit. His blood sugars continued to be elevated and or over 300 earlier this morning despite having his Lantus dose increased recently. He is also wearing his diabetic shoes but not an offloading surgical shoe as I have been recommending. 4/27/18. Seen by Dr. Nice. The patient does not report increased drainage associated with chronic right plantar foot diabetic ulcers since his last visit. His recent wound culture grew a resistant coag negative staph organism. He also met with his primary care provider, Dr. Green, to increase his dosing of Lantus and plans to work with him on dietary measures to help gain better control of his elevated blood sugars. 06/13/17. Seen by Dr. Nice. The patient's blood sugars again are over 300 today and his appointment with his primary care provider to address this. He does not report any acute changes regarding the chronic right plantar foot diabetic ulcer and is using his knee scooter to help facilitate offloading as much as possible. 06/09/17. Seen by Dr. Nice. The patient does not report significant drainage associated with the chronic right plantar foot diabetic ulcer since his last visit. 06/06/17. Seen by Dr. Nice. The patient does not report significant drainage associated with the chronic right plantar foot diabetic ulcer since his last visit and he's lost another 7 lbs since increasing his dose of Lasix due to abnormal weight gain and significant bilateral lower extremity edema. 06/02/17. Seen by Dr. Nice. The patient does not report significant drainage associated with the chronic right plantar foot diabetic ulcer since his last visit. His increase his dose of Lasix and has lost 7 pounds over the past 3 days. This is been done due to the significant increase in leg swelling over the past 2 weeks. 05/30/17. Seen by Dr. Nice. The patient does not report increased drainage associated with chronic right plantar foot diabetic ulcer since his last visit however he does feel that the right foot and leg are swelling considerably over the past few days. We note a 4 pound weight gain since his last visit on Monday and he states is taking his diuretic as prescribed. 05/26/17. Seen by Dr. Nice. The patient does not report increased drainage associated with chronic right plantar foot diabetic ulcers since his last visit. His culture grew a somewhat resistant coag negative staph and he is not currently on antibiotics. 05/23/17. Seen by Dr. Nice. Staff reports some increased drainage on his dressings covering the chronic right plantar foot diabetic ulcer today. His blood sugar is again over 300 and he states he is eating rice and potatoes trying to cut back. He continues offload with his knee scooter as recommended and does not report pain or any other acute ulcer related issues today. 05/19/17. Seen by Dr. Nice. The patient does not report increased pain or drainage associated with chronic right plantar foot diabetic ulcer since his last visit. He is using his knee scooter as recommended and has had significant problems with heavy callus at the site due to a severe right first toe valgus deformity. He is now attending clinic twice weekly for debridement of the ulcer and complicating callous. 05/16/17. Seen by Dr. Nice. The patient does not report increased drainage or pain associated with chronic right plantar foot diabetic ulcer since his last visit. Of note, the patient's blood sugar as 271 today and his A1c was 9.8 in March. 05/12/17. Seen by Dr. Nice. The patient does not report increased pain or drainage associated with chronic right plantar foot diabetic ulcer since his last visit. He is using his knee scooter to help offload the site which is particularly important based on patient's morbid obesity coupled with his severe first MTPJ valgus deformity. 05/09/17. Seen by Dr. Nice. The patient does not report increased drainage or pain associated with the chronic right plantar foot diabetic ulcer since his last visit. He states his blood sugars continue to be above 200 consistently although are improving with compliance to a lower carbohydrate type diet. He was started on metformin about a month ago he complains of some intermittent upper extremity weakness since then and will be discussing this with his primary care provider. He is also awaiting his new diabetic shoes that are being adjusted to help accommodate for his severe right first toe valgus deformity. 05/02/17. Seen by Jean-Pierre Pinto PA-C. The patient reports stable drainage from his right 1st toe ulcer and blood sugars continue to be above goal. 04/25/17. Seen by Jean-Pierre Pinto PA-C. The patient reports his blood sugars have been above 150 this week. He does not report increased drainage from his right 1st toe diabetic ulcer. 04/18/17. Seen by Dr. Nice. The patient does not report increased drainage associated the chronic right first toe diabetic ulcers since his last visit. 04/11/17. Seen by Jean-Pierre Pinto PA-C. The patient reports he is developing more calloused areas on his feet and is concerned about new ulcers occurring. His chronic 1st toe diabetic ulcer has been stable. 04/04/17. Seen by Jean-Pierre Pinto PA-C. The patient reports he has not been able to get his blood sugars below 150. Drainage is reportedly decreased from his diabetic foot ulcer. 03/30/17. Seen by Jean-Pierre Pinto PA-C. The patient reports continued high blood sugars, all above 150. Drainage from his ulcer is not increased. 03/23/17. s Seen by Jean-Pierre Pinto PA-C. The patient reports blood sugars above 150 again this week. He is concerned that something must be going on with an infection as he believes his diet has not changed and thus his sugars should be lower. His wound has had stable drainage. 03/15/17. Seen by Jean-Pierre Pinto PA-C. The patient reports he has had some blood sugars above 150 this week. He reports no increase in drainage from his right 1st toe diabetic ulcer. 03/08/17. Seen by Dr. Nice. The patient was discharged from the hospital recently following treatment for cellulitis associated with the chronic right first toe diabetic ulcer. He grew MRSA from the wound culture and was treated with IV vancomycin and is now on Bactrim. He does not report pain nor significant drainage associated with the ulcer nor side effects from antibiotics. 02/23/17. Seen by Dr. Nice. The patient does not report increased drainage associated the chronic right first toe diabetic ulcers since his last visit. The patient also states that he is more active over the holidays and was unable to use his knee scooter at times while walking outside due to safety concerns. 02/08/17. Seen by Dr. Nice. The patient does not report increased drainage associated the chronic right first toe diabetic ulcers since his last visit. He states he is using his offloading shoe when at home and a knee scooter went out. 02/01/17. Seen by Dr. Nice. The patient does not report increasing pain or drainage associated with chronic right first toe diabetic ulcer since his last visit. 01/25/17. Seen by Dr. Nice. The patient does not report increasing pain or drainage associated with chronic right first toe diabetic ulcer since his last visit. 01/18/17. Seen by Dr. Nice. The patient does not report increasing pain or drainage associated with chronic right first toe diabetic ulcer since his last visit. Of note, the patient's blood sugar is over 260 again today and he admits that it's been significantly elevated for a number of weeks. He has an appointment with his primary care provider to discuss this next week. 01/11/17. Seen by Dr. Nice. The patient does not report increasing pain or drainage associated with chronic right first toe diabetic ulcer since his last visit. He states his blood sugars have been running high recently and he is going to follow-up with his primary care provider in the near future to address this. 01/04/17. Seen by Dr. Nice. The patient does not report increased drainage associated with chronic right first foot diabetic ulcers since his last visit. He's also been applying Kersal to the periulcer as recommended. 12/28/16. Seen by Dr. Nice. The patient does not report increased drainage associated with chronic right first foot diabetic ulcers since his last visit. 12/22/16. Seen by Dr. Nice. The patient does not report increased drainage associated with chronic right first foot diabetic ulcers since his last visit. He's not been applying Kersal to the periulcer callus and does not appear to be using his knee scooter at all times to offload the ulcer. 12/15/16. Seen by Jean-Pierre Pinto PA-C. The patient reports he continues to have blood sugars above 150 this week. He recently saw his PCP, they did not alter his diabetic care plan. His visit was a follow up for an ER visit for chest pain which was negative for NC and was thought to be epigastric in origin. His diabetic ulcer of the right foot has not had increased drainage. 12/06/16. Seen by Jean-Pierre Pinto PA-C. The patient reports that he has found his knee scooter and plans to start using it today. He also reports most of his blood sugars have been above 150. Drainage from his ulcer has been stable. 11/25/16. Seen by Dr. Nice. The patient does not report increased drainage associated with chronic right first foot diabetic ulcers since his last visit. He is now on antibiotics for wound infection and does not report adverse side effects. Of note, he is not yet using a knee scooter nor offloading shoe as we recommended last week. 11/18/16. Seen by Dr. Nice. The patient returns to our clinic and presents with recurrence of a right first MTPJ plantar diabetic ulcer. He states it started a couple weeks ago when he was attempting to remove overlying callus at home. He does not report significant drainage or pain associated with the ulcer and is not currently on antibiotics. He also states his recent A1c was 7.8. His blood sugar in clinic today is 250. 01/11/16 Seen by Jean-Pierre Pinto PA-C. The patient reports no drainage from his chronic right 1st MTPJ joint since his last dressing change. 01/04/16 Seen by Jean-Pierre Pinto PA-C. The patient reports minimal drainage from his chronic right 1st MTPJ ulcer. He has recently seen his PCP and his A1c was 7.7. His lower extremity edema, abnormal weight gain and kidney failure are stable with his diuretics recently being adjusted. 12/28/15. Seen by Dr. Nice. The patient does not report significant drainage associated with the chronic right 1st MTPJ diabetic ulcer since his last visit however he does complain of increasing shortness of breath, fatigue, and an 18lb weight gain over the past week despite taking his diuretics as recommended. He does not report chest pain or cough and his blood sugars remain relatively well controlled with most below 150. 12/16/15. Seen by Dr. Nice. The patient does not report significant drainage associated with the chronic right 1st MTPJ diabetic ulcer since his last visit. He's applying kerasal to the surrounding callus as recommended and offloading nearly at all times using his knee scooter. 12/07/15 Seen by Jean-Pierre Pinto PA-C. The patient reports compliance with his new offloading brace and shoe and has seen minimal drainage from his diabetic foot ulcer since his last visit. 11/30/15. Seen by Dr. Nice. The patient does not report significant drainage associated with the chronic right 1st MTPJ diabetic ulcer since his last visit and he's wearing a combined AFO / diabetic shoe system that he feels may be better offloading the ulcer. 11/23/15 Seen by Jean-Pierre Pinto PA-C. The patient reports that he is wearing his new diabetic shoes and inserts. He is continuing physical therapy for gait training and reports continued difficulty with stairs and occasional bouts of dizziness. He reports stable drainage from his chronic right foot diabetic ulcer. 11/16/15 Seen by Jean-Pierre Pinto PA-C. The patient reports stable drainage from his right foot diabetic ulcer. He also reports that his diabetic shoes and inserts are quite old and worn out. He is ambulating with is 4 wheeled walker and is working with PT for gait training. 11/09/15 Seen by Jean-Pierre Pinto PA-C. The patient reports that he is still using a 4 wheeled walker instead of a 4 footed walker. PT is working with him to improve his gait and balance. Drainage from his right foot ulcer has been stable. 11/02/15 Seen by Jean-Pierre Pinto PA-C. The patient reports no increase in drainage from his chronic diabetic foot ulcer. He has had multiple blood sugars above 150 this week. 10/29/15. Seen by Dr. Nice. The patient was recently discharged from [facility] following treatment of sepsis thought to possibly be related to his chronic right 1st MTPJ diabetic ulcer that grew Enterococcus just prior to his admission. He now feels generally weak , has lost 18 lbs following diuresis, and is residing at home where he's minimizing his weight bearing on the right foot. He does not report significant drainage from the ulcer nor pain and states his blood sugars remain mostly around 150. He also continues on levofloxacin and does not report adverse side effects. 10/14/15. Seen by Dr. Nice. The patient report persistent bloody drainage from the chronic right 1st MTPJ diabetic ulcer and he feels the callus has increased significantly since it was last debrided 2 week ago. He does not report fevers or feeling unwell and states his blood sugars are well controlled with most below 150. He's using his AFO when walking nearly at all times to facilitate offloading the significant right 1st MTPJ valgus deformity. 09/24/15 Seen by Jean-Pierre Pinto PA-C. The patient reports that he is no ran out of lasix due to a mix up at the pharmacy and unavailability of his strength/dose of tablets. He continues trying to offload his ulcer with his wheeled walker and notes stable ulcer drainage. 09/17/15. Seen by Dr. Nice. The patient continues to report some bloody drainage from the chronic right 1st MTPJ diabetic ulcer and he's started reducing his activity and continues to use his knee scooter at home to offload the foot. 09/10/15. Seen by Dr. Nice. The patient states he was more active over the past week and notices increased bloody drainage associated with chronic right first MTPJ diabetic foot ulcer. He continues to wear his AFO and states his blood sugars are mostly below 150. 09/03/15. Seen by Dr. Nice. The patient does not report significant drainage associated with the chronic right first MTPJ diabetic ulcer over the past week. He does feel that the callus smaller than on previous visits and is wearing his AFO at all times. Of note, he 's now in doxycycline to treat the recent coag negative Staph cultured from the ulcer at his last visit. 08/27/[address] Nice. The patient reports increase bloody drainage associated with the chronic right foot 1st MTPJ diabetic ulcer and he feels his activity has increased due to physical therapy and increased mobility over the past week. He does not report pain at the ulcer site, fevers, or feeling unwell in general. 08/20/[address] Nice. The patient does not report significant drainage associated with the chronic right foot 1st MTPJ diabetic ulcer over the past week and he's using a knee scooter as much as possible when mobilizing to offload the foot. His blood sugars also remain relatively well controlled with most below 150. 08/13/[address] Nice. The patient does not report significant drainage associated with the chronic right foot diabetic ulcer over the past week and he's offloading using a knee scooter as recommended. His blood sugars remain relatively well controlled with most below 150. 08/06/[address] Nice. The patient reports recurrence of some drainage from the chronic right foot diabetic ulcer over the past few days and states he's been more active with physical therapy. His blood sugars remain well controlled with most below 150 and he's wearing his AFO when away from the house and using a knee scooter most of the time while at home to facilitate offloading. He's also applying Kerasal to the callus in the periwound area as recommended. 07/23/[address] Nice. The patient does not report drainage from the chronic right 1st MTPJ diabetic ulcer over the past week and he's using his new AFO and knee scooter to offload the foot. 07/16/[address] Nice. The patient does not report pain or drainage from the chronic right 1st MTPJ diabetic ulcer and he's wearing his newer AFO while offloading with a knee scooter most of the time. 07/09/[address] Nice. The patient does not report drainage or pain associated with his chronic right foot 1st MTPJ diabetic ulcer and he's been offloading by using a knee scooter when mobilizing. His canine service instructor trainer is present today as well to discuss possible adjustments to his AFO with the goal of reducing callus formation that's in part caused by his significant right 1st toe valgus deformity. He also states his blood sugars remain well controlled below 150 consistently. 07/03/[address] Nice. The patient does not report significant drainage from the chronic right foot diabetic ulcer and he's offloading by using his knee scooter. His blood sugars also remain relatively well controlled around 150 consistently. 06/26/[address] Nice. The patient report some continued bloody drainage from the chronic right 1st MTPJ diabetic ulcer however he does not report associated pain , fevers or feeling unwell. His blood sugars remain consistently below 150 and he's using his walker and knee scooter for offloading as recommended. He's also been actively working with his canine service instructor trainer in hopes of better offloading the ulcer and address his significant callus formation and left 1st MTPJ valgus deformity. 06/19/[address] Nice. The patient does not report pain associated with his chronic right 1st MTPJ diabetic ulcer however he states some bloody drainage persists on the dressings. He does not report fevers or feeling unwell and states his blood sugars are well controlled below 150 consistently and he's using a knee scooter and walker to offload the ulcer when mobilizing. He also does not report pain or drainage associated with the left 2nd toe wound. 06/11/[address] Nice. The patient was recently discharged from [facility] following a fall at home that resulted in a broken rib. Regarding his chronic right 1st MTPJ diabetic ulcer he does not report significant drainage and has been offloading through bed rest and using a knee scooter while at home. His blood sugars also remain well controlled with most below 150. He also reports a new wound on the dorsum of the left 2nd toe that he believes occurred during his fall. He does not report associated pain or significant drainage. 05/28/[address] Nice. The patient reports some increased bloody drainage from the chronic right 1st MTPJ diabetic foot ulcer over the weekend associated with a new 'soft' area along the distal margin. He's been more active the past the past few days but states he's using his knee scooter to offload at all times. His blood sugars also remain well controlled with most around 120 and he's no longer on antibiotics. He also continues to wear his old AFO but states there was a recent adjustment of a cut out lined with 'soft' plastic in the area of the ulcer. 05/21/[address] Nice. The patient report less drainage from the chronic right foot 1st MTPJ diabetic ulcer over the past week. He's completed his course of doxycycline and he continues on fluconazole for the recent Alma Delia positive wound culture. He's also reverted back to using his previous AFO while his newer one is adjusted to try to address the recent significant increase in callus formation that's occurred. His blood sugars also remain well controlled under 150 consistently and his recent episodes of hypoglycemia has resolved with an adjustment of his insulin regimen. 05/14/[address] Nice. The patient reports less drainage on the dressings covering the chronic right 1st MTPJ diabetic ulcer since starting doxycycline for a coag negative Staph wound culture along with fluconazole for the alma delia positive culture. His blood sugars remain well controlled below 120 and his insulin has been decreased due to the recent episodes of hypoglycemia. His diuretic has also been decreased as he's lost considerable water weight over the past month. 05/07/[address] Nice. The patient continues to report modest bloody drainage on the dressing covering the chronic right 1st MTPJ diabetic ulcer and he continues to limit his walking but has not been using a knee scooter or walker around the house to facilitate offloading. His blood sugars remain well controlled mostly below 150. 04/30/[address] Nice. The patient continues to report bloody drainage on his right foot diabetic ulcer dressing and he's feeling a bit unwell in general without reporting specific symptoms. He also continues to have intermittent low blood sugars in the 50-60' s and has not discussed this issue with his PCP recently. He's wearing his AFO daily but admits to having difficulty using his walker at all times due to limited space in his new apartment. 04/27/15 Seen by Jean-Pierre Pinto PA-C. The patient reports nonspecific malaise for the past few days. Last night, he reports feeling to tired, weak and shaky to watch TV and went to bed very early. His malaise has been increasing over the past 1-2 weeks and he has frequently been monitoring his blood sugar. His blood sugars are lower than normal lately but never below 100. He has been reducing his insulin dosing in the past 2 weeks to compensate for the lower numbers. He continues to loose weight while continuing to take Lasix and metolazone. 04/23/[address] Nice. The staff and patient continue to report at least moderate serosanquinous drainage from the chronic right 1st MTPJ diabetic ulcer. His blood sugars have been well controlled over the past week with most below 150. He does report being more active than usual while he's been moving to his new home and he also states he continues to loose weight following a recent increase in his diruetics. His wound culture from the last visit reported heavy Diptheroids and he's not currently on antibiotics. 04/20/15 Seen by Jean-Pierre Pinto PA-C. The patient reports that he has moved house and has been on his feet much more so as a consequence. He reports increased drainage from his right plantar foot diabetic ulcer. In addition he believes he struck it against a hard surface when moving. He has had no significant pain with weightbearing but is insensate in this area. 04/15/[address] Nice. The patient reports continued weight loss, and decreasing leg swelling, since starting metolazone totaling about 20 lbs. He also feels the chronic right 1st MTPJ diabetic ulcer has been draining increasing amounts of sanguinous fluid. His blood sugars remain well controlled with most below 120 and he does not report fever or feeling unwell. 03/25/[address] Nice. The patient states he walked a considerable amount yesterday and now reports some bleeding from the chronic right 1st MTPJ diabetic foot ulcer. He also continues to report increased weight gain and now some shortness of breath when walking short distances. He has a low grade fever today but does not report a cough or feeling unwell otherwise. 03/11/2015 Seen by Jean-Pierre Pinto PA-C. The patient's weight has increased 10 lbs in the past week. He reports increased shortness of breath with exertion. He denies chest pain, jaw, neck, shoulder pain or shortness of breath at rest. He has been compliant with his diuretics. His ulcer drainage has been stable. 03/04/2015 Seen by Jean-Pierre Pinto PA-C. The patient is wearing his newly adjusted AFO and reports an increase in walking since last visit. He was unaware that his temperature was elevated and reports no URI symptoms such as cough or sore throat. 02/24/2015 Seen by Jean-Pierre Pinto PA-C. The patient believes his ulcer has now been draining more despite trying to offload the ulcer. 02/11/[address] Nice. The patient reports less drainage from the chronic right 1st toe diabetic ulcer and he's still waiting for approval for his new AFO. 02/04/[address] Nice. The patient feels the drainage from the right 1st MTPJ ulcer has decreased since last week and he's scheduled to see Dr. Solitario tomorrow to review his foot deformity and recurrent callus formation at the site of the ulcer. 01/30/[address] Nice. The patient returns to clinic and reports recurrence of the recently healed right 1st MTPJ diabetic foot ulcer with new moderate drainage and significant callus formation. He's not yet re-established with Dr. Solitario, podiatry, due to insurance issues and is awaiting approval for an adjustment for his AFO. His blood sugars remain controlled below 150 mostly and he does not report pain in the foot or fevers. 01/12/[address] Nice. The patient does not report drainage from the right 1st toe MTPJ ulcer and he's scheduled to have his new AFO fitted this week. 01/05/[address] Nice. The patient does not report drainage associated with the right 1st MTPJ diabetic foot ulcer however he states he has had some intermittent, very brief 'shooting' pain at the site of the ulcer the past few days. His blood sugars also remain between 120 and 150 mostly. 12/29/[address] Nice. The patient does not report drainage from the chronic right 1st MTPJ diabetic foot ulcer and he offloads using a walker and surgical shoe at all times except for when he wears a slipper around his small apartment. 12/22/[address] Nice. The patient does not report significant drainage from the right 1st MTPJ diabetic foot ulcer and he states his blood sugars are still in the 150 range with some over 180. 12/10/[address] Nice. The patient does not report significant drainage from the right 1st MTPJ diabetic foot ulcer. 12/04/[address] Nice. The patient does not report any drainage from the chronic right 1st MTPJ diabetic foot ulcer and he's still waiting for insurance approval for a custom, articulating AFO. His blood sugars also remain relatively well controlled below 150 consistently. He also continues to apply Kerasal to the associated callus daily. 11/20/[address] Nice. The patient's been feeling unwell the past week and feels he may have lost as much as 10 lbs due to poor oral intake. Otherwise he does not report any new problems regarding his right 1st MTPJ plantar diabetic ulcer. 11/07/[address] Nice. The patient reports only scant drainage from the right plantar diabetic foot ulcer. He's been offloading as recommending with a walker and is awaiting a approval for an articulating AFO. His blood sugars remain mostly well controlled below 150. 10/31/14 Seen by Jean-Pierre Pinto PA-C. The patient feels he has reached another plateau with regard to his wound healing. His right plantar diabetic ulcer continues to drain and has not improved recently. He is wearing his brace and reports compliance with offloading. 10/21/[address] Nice. The patient reports only scant drainage from his right 1st plantar surface MTPJ diabetic foot ulcer. He continues to offload with a frame walker and his blood sugars are moderately well controlled with most below 150. 10/14/[address] Nice. The patient does not report significant drainage from the right 1st plantar MTPJ ulcer. Of note, when discussing his blood sugars he mentions he's on both 70/30 insulin as well as Lantus and he frequently has blood sugars in the 150-200 range. 10/07/[address] Nice. The patient reports some modest drainage from the right 1st MTPJ plantar ulcer but no pain, erythema, or swelling. His blood sugars are mostly below 150 and he offloads with his AFO. 09/30/14 Seen by Jean-Pierre Pinto PA-C. The patient reports continued compliance with his AFO and he is trying to offload. He is scheduled now with PT for gait training and knee strengthening. He reports his knee is still sore at times and he feels unstable at times when using his offloading devices and AFO. 09/23/[address] Nice. The patient reports only minimal drainage from the right plantar 1st MTPJ ulcer. 09/16/14 Seen by Jean-Pierre Pinto PA-C. The patient continues to use his AFO, offloading shoe, knee scooter and frame walker to offload his wound. 09/09/14 Seen by Jean-Pierre Pinto PA-C. The patient has been wearing his AFO and offloading shoe together, with the added padding as designed by Sahra BOYD of [facility]. He reports that he feels unsteady and that his knee has felt strained and he discontinued using the brace as he is concerned that he has, or will, re-injure his right knee. He also is having difficulty using his knee scooter with the brace. One year ago , while attempting to offload his foot he did injure his knee and required physical therapy to recover. 08/19/14 Seen by Jean-Pierre Pinto PA-C. The patient's weight is down 10 lbs from his previous visit. His twice daily naproxen has been discontinued by his PCP in an effort to reduce his lower extremity edema. 08/15/14 Seen by Jean-Pierre Pinto PA-C. The patient continues to have weight fluctuations and large amounts of weight gain in short periods of time despite increased diuretic usage. 08/04/14 Seen by Jean-Pierre Pinto PA-C. The patient has been taking his Levaquin and again reports to the clinic with a low grade fever. He reports nearly daily application of Kerasal and his weight and edema have been stable on a higher dose of diuretics. Blood sugars remain stable on his current diabetic medications. 07/21/14 Seen by Jean-Pierre Pinto PA-C. The patient does not report fever, chills or URI symptoms. His wound drainage has been stable. 07/16/[address] Nice. The patient reports persistent but minimal drainage from the right foot plantar ulcer and continues to offload with a walker at all times. His blood sugar are mostly below 150 with a few around 170 the past few days. 07/01/14 The patient reports that he has gained 8lbs in 8 days. Denies SOB. Does not report fever or chills. 06/23/[address] Nice. The patient continues to offload with a knee scooter and walker at all times. He does not report significant drainage from the right plantar foot ulcer. 06/20/[address] Nice. The patient has been offloading his right foot ulcer with a walker and reports less drainage over the past 2 days. He's now off of antibiotics and his blood sugars remain well controlled below 150. 06/11/[address] Nice. The patient reports persistent drainage from the right foot plantar 1st MTPJ ulcer and he completed his course of doxycycline which was started for a MRSA positive culture from the ulcer site. His blood sugars have also been a bit elevated above 150 recently. He does not report fever or chills however. 06/04/14 The patient reports difficulty in offloading his wound due to inability to use crutches due to poor balance. He find the wheelchair difficult to use and his knee scooter is not rated for his weight. He denies fever, chills or URI symptoms. 05/28/14 The patient's been attempting to offload with a knee scooter but is concerned it may not be appropriate or stable based on his weight. He does not report increased drainage from he right plantar 1st MTPJ ulcer and his blood sugars remain well controlled below 120. 05/21/14 The patient reports only minimal sanguinous drainage from his right foot plantar ulcer and has been offloading it by minimizing his walking. He's also completed a course of doxycycline that was given for a coag negative staph wound culture from the ulcer. He states his blood sugars are consistently below 120 and does not report hypoglycemia. 05/13/14 The patient reports minimal drainage from his right foot plantar ulcer. His recent wound culture from the site returned coag negative Staph and Diptheroids. 05/02/14 The patient reports less drainage from the right plantar foot ulcer and continues to off loading by minimizing walking and wearing a post-op shoe. 04/29/14 The patient continues to wear his surgical boot with the cutout for his right foot plantar diabetic ulcer. He reports no increase in drainage. 04/25/14 The patient reports minimal bloody drainage on the right foot plantar ulcer dressing that was placed yesterday. He does not report any drainage from the previously healed lateral foot ulcer. His edema in the right leg persists despite wearing compression stockings daily and his blood sugars remain well controlled below 120 with his last A1c approx 2 months ago at 7.4. 04/22/14 The patient reports no increase in drainage from his wounds today. He has been faithfully wearing his orthopedic boot with the cut-out area around his 5th MT ulcer. 04/15/14 The patient reports no increase in drainage from his wounds today. He reminds me that a TCC was the cause of his 5th MT ulcer and he is not excited about trying a TCC again. He is interested in HBOT if it will be beneficial to his wounds. 04/09/14 The patient reports increased drainage from his right 5th MT ulcer and feels his surgical boot he's been wearing for off loading may have caused pressure to the area. His blood sugars have improved and he also reports a 5 lb weight loss after doubling his dose of lasix over the past week. Of note, he did not liaise with his PCP prior to doing this. 04/04/14 The patient states that he was walking a bit more than usual yesterday but notes some sanguinous drainage on his plantar 1st MTPJ dressing for the past few days. He's also put on 7 lbs in the past week and feels his legs are more swollen than usual. He does not report chest pain, shortness of breath, or orthopnea. His blood sugars are also up a bit around 180. He's compliant with both his diabetes regimen and his diuretic therapy. 03/28/14 The patient reports no increased drainage or other complications from his right foot diabetic ulcers. 03/21/14 The patient reports minimal drainage from his right foot diabetic ulcers. He continues to minimally weight bear using a surgical boot and a walker. 03/14/14 The patient does not report increased drainage or other new issues regarding his right 5th MTPJ and right 1st MTPJ plantar ulcers. His blood sugars remain more elevated than usual with some between 150 and 180. 03/07/14 The patient reports no fever or increased right foot wound pain or drainage. 02/28/14 The patient reports that his blood sugar this morning is a bit elevated around 160 but has mostly been below 140 over the past few days. He's been off antibiotics for 3 days now and reports modest drainage from the right 5th MT ulcer while dressing changes are being done every two days. 02/24/14 The patient does not report any new issues regarding his right foot ulcers including increased drainage, fever, or chills. He completed his course of doxycycline yesterday. 02/17/14 The patient reports moderate yellow drainage from the right foot 5th MTPJ ulcer. He's completed a course of doxycycline and does not report fever or chills but states his blood sugars remain higher then normal in the 170's. His wound culture was positive for Enterobacter and his ESR was elevated at 41 and CRP at 2.7. 02/06/14 The patient does not report increased drainage from the right 5th MTPJ ulcer nor does he report fever or pain. He continues to off load with a walker and minimizing walking. He continues on doxycycline which was started empirically at his last visit and his culture has since grown Enterobacter which should be susceptible to doxy based on sensitivities. His xray of the foot was not concerning for osteomyelitis however his ESR and CRP are both moderately elevated. He also feels his legs are more swollen than usual and he continues to take his lasix as scheduled. 02/03/14 The patient does not report fever, chills, or pain in the right foot however when the TCC was removed today he's noted to have a sizable increase in the diameter and depth of what was a small 5th MTPJ ulcer. 01/14/14 The patient reports no new problems regarding is right diabetic foot ulcer. 12/31/13 The patient reports minimal serous drainage from his right 5th MTPJ ulcer and states he continues to off load his foot as much as possible. He does not report pain or drainage from the site of his right 1st MTPJ ulcer. 12/19/13 The patient tolerated with TCC without any complaints but there appears to be a small area of erythema over the right 5th MTPJ. He notes his blood sugars are typically below 120 and his A1c last week was 7.4. 12/13/13 The patient has no complaints regarding his TCC nor his plantar ulcer. 12/11/13 The patient returns for placement of a TCC today. He does not report any new problems regarding is plantar ulcer. 12/03/13 The patient states his plantar ulcer drainage is stable and he's continued to not use a cut-out foam doughnut over the ulcer. 11/26/13 The patient has kept the foam dressing in place from the last visit and has not used a cut-out foam dressing which we felt caused some deterioration of the foot ulcer. He has some mild drainage but no pain. 11/22/13 The patient returns for review of his plantar ulcer and callus that seems to be deteriorating despite an adjustment to his boot and off loading measures. The patient reports his callus accumulation is in spite of daily kerasal applications. Patient reports a new small wound on the left second toe. Josue states that it might be related to the brace. Patient had brace modified to help off load. 11/06/13 Josue states he was able to schedule with the prosthetic doctor tomorrow at noon. He reports no new problems or concerns. He also says that he is done with physical therapy since yesterday as insurance will not cover it any longer. 10/31/13 The patient reports he received his dressing supplies. Dressings changes are going well and no new problems are reported. He saw his medical biller coder, Dr. Solitario, on Monday for a check up and had and x-ray of the foot. 10/24/13 Josue reports he has been staying off of his feet as much as possible. He has been changing the dressing as ordered and states there has been just a small amount of drainage. He recently ran out of his dressings and will need more ordered or the balance sent home with him. 10/17/13 Patient states he has no new problems or concerns. He did have a small increase in drainage the other day but he had walked more than normal the day before. 10/09/13 Josue states he has no new issues. Dressing changes are going well. 10/02/13 Josue states there have been no new issues with dressing changes. They have been changed once since his last visit. No complaints of pain with the wound. 09/20/13 Josue was discharged from wound care September 05. States that he has been using pumice stone on callus area where had previous wound and may have been too aggressive. Also has been on feet more and having increase in lower extremity edema. Continues to wear the tetragrip F he had received in the clinic 6 hours per day but has not ordered any yet. 09/27/13 Patient states that there have been no issues with using the tetra supervisor show operations. Asking about getting compression stockings from drug store for continued use. 09/05/13 Patient states he has set up physical therapy for the problems with his knee. He starts these treatments on 09/11. There has been no new issues with his wound and he changes the dressings about every two days. He reports little to no drainage. 08/06/13 States no new problems with wound area. Been using kerosol daily. 08/19/13 Patient states he twisted his knee a week ago, and it is effecting his walk slightly. He also complains of more edema in his legs, and has an appointment with his PCP tomorrow regarding the issue. No new problems or concerns with his wound. No new problems or concerns. Patient states he changed the dressing a few times this last week. Saw Dr. Solitario this past week for check up with no change o his management. 07/26/13 The patient has had new brace for one week and so far it is working out well. No other complaints at this time. 07/18/13 Patient got brace for foot and leg yesterday. No problems or concerns. 07/11/13 No problems or concerns. Changed dressing twice since last visit 07/04/13- Pt went to his PCP and his lasix were increased from 20mg to 40mg. He states his edema has decreased since then. Pt's diabetic foot brace (decreases lateral movement to reduce pressure on the sides of his feet) will arrive in about another week. 06/20/13- Pt reports increased edema in his feet for the last week, he has been walking more, but also sitting with his feet down more. With the increase in exercise he states his back has been hurting. On Sunday 06/18 pt went to [facility],and had his ankle brace fitting. 05/31/[address] Green this am. Changed dressing twice this week. Saw canine service instructor trainer (in [place]) on Monday. Considering ankle brace 05/24/13 states started walking program at 5 minutes at a time and taking the bus to clinic apt. 11/08/12 Pt is changing dressing every two days. Is concerned about the edema to the left leg that had the cellulitis. States it is warm. 11/15/12 patient has been having more nerve pain. He has been changing his dressing either every day or every other day. 11/22/12- Patient continues to change dressing about every day. No problems noted. Patient changing dressing about q o day. Thinks wound is less deep. 12/07/12 Pt only changed dressing twice since last visit. No concerns or problems. 12/18/12 When cleaning wound was able to aspirate large purlent sero-sang fluid from site. Pt states he feels it was doing better. 12/24/12 Decreased drainage and pt states he feels the wound is doing well. 12/31 Pt states he has had decreased draiange from wound. Pt denies pain. 01/07/13Pt states the kerasol didn't really do much, but admits he was only applying it every other day and is not sure what his expectations should be. He believes he may have bumped a toe on the left foot and has been concerned about some bruising there but admits it is getting better. Still does not have his new shoes and says he is exploring other options like disability. 01/21/13 feeling well since last visit. feels he may have bumped third toe so wants it to be seen. Level 2- 3 neuropathic pain in right foot 02/27/12 Patient changing bandaid on foot and applying kerasol every three days. Patient got new PCP and saw him yesterday. Patient states things are going well with the wound. 03/12/[address] Green for edema and will see him tomorrow for follow up.03/25/13 states has drainage from bottom of foot. concerned about new wounds Sates he changes dressing every 2 days. Changed this AM as it came off. Using Ca alginate and foam. States no drainage last night 04/19/13 changes dressing every 2-3 days. no problem. Has appt with Dr. Solitario 04/30/13 and new shoes have arrived. To be fitted next week 04/26/13 Is wearing new shoes and states they are working well.Changed dressing twice this week 05.03.[address] Solitario last week. will see again in [address] Green started antibiotic for sinus infection States sinuses not a lot better. Has started Lakshmi D, helping some. States wound about same. Changing dressing 2 x this week as dressing came off. States added collagen one time. Past Medical History This information was obtained from the patient Patient has a medical history of: Left lower extremity cellulitis - 10/15/2012 Diabetic foot ulcer - 09/27/2013 (Hernandez grade 2; right plantar surface; Hernandez grade III (Enterobacter positive wound culture 02/03/14), lateral right 5th MTPJ originally dx 12/24/13; MRSA positive culture 06/04/14 ) Chronic venous hypertension Type II Diabetes Hypertension Morbid Obesity Kidney Stones Hx MRSA Diabetic neuropathy Hallux valgus (right 1st toe) UTI (hospital admit) Cellulitis of legs (June and September 2012- hospital admit) Cataract surgery (10/13/15) Diabetic Neuropathy Complaints and Symptoms This information was obtained from the patient Patient complains of: General Notes: I have reviewed and concur with the Review of Systems and Past Family Social History documents completed by the clinician, I have reviewed and concur with the Wound Assessment document completed by the clinician Cardiovascular (Central/Peripheral): Lower extremity (leg) swelling Integumentary (Hair/Skin/Nails): Open Sore Musculoskeletal: Deformities, Muscle Weakness Neurological: Abnormal Gait, Loss of Protective Sensation Prior Wound History: Bleeding, Drainage Patient denies complaints or symptoms related to: Cardiovascular (Central): Irregular heart beat Cardiovascular (Central/Peripheral): Lower extremity (leg) resting pain Constitutional Symptoms (General Health): Chills, Fever, Marked Weight Change Ear/Nose/Mouth/Throat: Hearing Loss / Aid Gastrointestinal (GI): Nausea / Vomiting Hematologic/Lymphatic: Bleeding / Clotting Disorders, Bleeding Tendency Musculoskeletal: Assistive Devices Prior Wound History: Erythema, Malodor, Pain Psychiatric: Memory Loss Respiratory: Oxygen Use, Shortness of Breath OBJECTIVE Constitutional BP elevated; Afebrile; Alert and in no distress. Well developed. Alert. Clean appearing.. Height/Length: 71 in (180.34 cm), Weight: 353.2 lbs (160.55 kgs), BMI: 49.3, Temperature: 97.9 ?F (36.61 ?C), Pulse: 79 bpm, Respiratory Rate: 16 breaths/min, Blood Pressure: 152/81 mmHg, Capillary Blood Glucose: 202 mg/dl, Pulse Oximetry: 94 %. Vital Signs Notes: Glucose per patient. It appears weight was incorrectly entered at last visit. Ears, Nose, Mouth, and Throat: No clinically significant hearing loss on informal examination. Respiratory: No respiratory distress. Even respirations and without use of accessory muscles.. Cardiovascular: 1+ right lower extremity edema. Gastrointestinal (GI): Obese. Nondistended.. 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 Integumentary (Hair, Skin) No periwound erythema, warmth, or significant drainage. No periwound rashes appreciated or noted otherwise.. Refer to appropriate clinician wound documentation for this visit; right foot ulcer extends to subcut with base partially covered with pink granulation, remainder fibrin and slough. Moderate amount of callus in the periulcer area. Wound #6 Right, Plantar Foot is a chronic Hernandez Grade 2 Diabetic Ulcer and has received a status of Not Healed. Subsequent wound encounter measurements are 1.1cm length x 0.6cm width x 0.4cm depth, with an area of 0.66 sq cm and a volume of 0.264 cubic cm. No tunneling has been noted. No sinus tract has been noted. No undermining has been noted. There is a moderate amount of sero-sanguineous drainage noted which has no odor. The patient reports a wound pain of level 0/10. The wound margin is callus. Wound bed has Yes epithelialization, No eschar, Yes slough, Yes bright red, pink, firm granulation. The periwound skin color is normal. The periwound skin exhibited: Callus, Maceration. The periwound skin did not exhibit: Brawny Induration, Edema, Excoriation, Induration, Crepitus, Fluctuance, Friable, Rash, Dry/Scaly, Moist. The temperature of the periwound skin is WNL. Periwound skin does not exhibit signs or symptoms of infection. Local Pulse is Palpable. Wound #7 Right Great Toe is an acute Hernandez Grade 1 Diabetic Ulcer and has received a status of Not Healed. Subsequent wound encounter measurements are 0.6cm length x 0.3cm width x 0.2cm depth, with an area of 0.18 sq cm and a volume of 0.036 cubic cm. No tunneling has been noted. No sinus tract has been noted. No undermining has been noted. There was no drainage noted. The patient reports a wound pain of level 0/10. The wound margin is attached. Wound bed has Yes epithelialization, No eschar, Yes slough, No granulation. The periwound skin texture is normal. The periwound skin moisture is normal. The periwound skin color is normal. The temperature of the periwound skin is WNL. Periwound skin does not exhibit signs or symptoms of infection. Local Pulse is Doppler. General Notes: Dried slough covering wound base. Strong pedal pulse, weak posterior tibial pulse via Doppler. Neurological: Cranial nerves grossly intact with symmetric function normal by informal observation.. ASSESSMENT Active Problems ICD-10 (Encounter Diagnosis) E11.621 - Type 2 diabetes mellitus with foot ulcer (Encounter Diagnosis) L97.512 - Non-pressure chronic ulcer of other part of right foot with fat layer exposed (Encounter Diagnosis) R25.1 - Tremor, unspecified PROCEDURES Wound #6 Wound #6 (Diabetic Ulcer) is located on the right, plantar foot. A skin/ subcutaneous tissue level surgical debridement with a total area debrided of 0.72 sq cm was performed by Stephen Nice MD. Subcutaneous was removed along with devitalized tissue: callus and exudate. The following instrument(s) were used: curette. Pain control was achieved using 4% Lido. A time out was conducted prior to the start of the procedure. A moderate amount of bleeding was controlled with silver nitrate. The procedure was tolerated well with a pain level of 0 throughout and a pain level of 0 following the procedure. Post Debridement Measurements: 1.2cm length x 0.6cm width x 0.4cm depth; with an area of 0.72 sq cm and a volume of 0.288 cubic cm; Additional Information Muscle fascia or bone removed and sent to pathology?: No PLAN Wound Orders: Wound #6 Right, Plantar Foot Anesthetic Topical Xylocaine to wound bed. - In clinic only. Cleanser Cleanse Wound: - Normal saline and gauze. May Shower. - Do not get wound wet with tap water. Use cast protector when showering. Topical Treatments Moisturizing lotion to surround skin. - Kerasal to callus. Dressings Cover and secure with: - Foam and hypafix tape. Change Dressing: - Every other day. Wound #7 Right Great Toe Anesthetic Topical Xylocaine to wound bed. - In clinic only. Cleanser Cleanse Wound: - Normal saline and gauze. May Shower. - Do not get wound wet with tap water. Use cast protector when showering. Topical Treatments Antibiotic/Antimicrobial Ointment/Cream. - Hydrogel to wound base (patient has supply). Dressings Cover and secure with: - Telfa pad and hypafix tape. Change Dressing: - Every other day. Additional Orders: Off-Loading Keep weight off: - Right foot as much as possible. Use Knee scooter when able. Use/Wear when Walking: - Offloading shoe. Compression/Edema Control Elevation of leg(s) above the level of the heart when sitting. Avoid prolonged standing in one place. - Please avoid standing or walking for long periods of time. Knee-high gradient compression stockings. - Tetragrip F stockings to both legs. On in the morning and off at night. Follow-Up Appointments Return Appointment: - - Tuesdays and Fridays for callus removal. Other information: If you develop fever, chills, increased pain, drainage, redness or swelling please call our office. If after hours, respond to the ER. Should you experience any significant changes in your wound(s) or have any questions regarding your home care instructions please contact the wound center @ [phone]. If after hours, contact your primary care physician or go to the hospital emergency room. Scribing Attestation I attest, as the nurse, that I scribed these orders for the physician. I've reviewed the clinician's documentation and agree with the evaluation and plan as written. In addition, the patient's ulcer demonstrates evidence of non-viable devitalized tissue which will continue to benefit from sharp debridement to help promote granulation and expedite healing. Also, we'll await feedback regarding his tremor and any possible changes to his diabetes medications. Electronic Signature(s) Signed By: Date: Stephen Nice MD 08/30/2017 06:43:39 Entered By: Stephen Nice on 08/29/2017 12:36:51
== END ==
PROVIDERS: PCP Family Medicine; Visit Provider Internal Medicine
DX: E11.621 Type 2 diabetes mellitus with foot ulcer (principal); L97.512 Non-pressure chronic ulcer of other part of right foot with fat layer exposed; R25.1 Tremor, unspecified
CPT/HCPCS: 11042

== ENCOUNTER → 2017-09-01 09:59 | Outpatient (CLI) | payer MEDICARE, OTHER, SELFPAY ==
--- NOTE | 2017-09-01 | OV.WND_ITS ---
Progress Note Details Patient Name: Josue Mesa Patient Number: [id number] PatientPatientDate: 09/01/2017 Clinician: Fay Moncada Clinician Cosigner: Janel Daly Physician / Certified Flight Instructor: Stephen Nice SUBJECTIVE Chief Complaint This information was obtained from the patient Diabetic ulcer to right plantar foot and great toe. Allergies Augmentin (Severity: Mild, Reaction: nausea) HPI This information was obtained from the patient 09/01/17. Seen by Dr. Nice. The patient does not report increased drainage associated with the chronic right 1st MTPJ nor right 1st toe dorsal diabetic ulcers since his last visit. 08/29/17. Seen by Dr. Nice. The patient does not report increased drainage associated with the chronic right 1st MTPJ diabetic ulcer since his last visit. He does complain of progressive upper extremity tremors that are most noticeable in the morning and evening and may occur after he takes his metformin. He does not report low blood sugars and he'll bee seeing his PCP today to discuss this. 08/25/17. Seen by Dr. Nice. The patient reports being more active and on a boat over the holiday which was no conducive to using his knee scooter. He feels the right 1st MTPJ ulcer has deteriorated and he has a new ulcer over the dorsum of the right 1st toe now. 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 08/22/17. Seen by Dr. Nice. The patient was seen at [facility] and they provided a new orthotic insert to help better offload the chronic right 1st MTPJ diabetic ulcer while he's wearing his surgical, forefoot offloading show. He does not report increased drainage or pain associated with the ulcer and is using a knee scooter also to help offload. He has a severe valgus deformity which results in heavy callus formation and has required twice weekly debridements which has been effective in gradually promoting the ulcer to heal. He's also been applying topical gentamicin to the ulcer base to treat the recent coag negative Staph culture that was taken due to increased drainage. 08/18/17. Seen by Dr. Nice. The patient's wound culture taken from the chronic right foot diabetic ulcer at his last visit grew an intermediately resistant coag negative Staph and his dressing change and application of gentamicin is taking place only every 2-3 days. He does not report pain in the foot but staff report his dressing as being 'bloody' today. 08/15/17. Seen by Dr. Nice. The patient reports what may be increased drainage on his right foot diabetic ulcer dressings as mentioned by his client care coordinator in assisted living. He's using a knee scooter as recommended and does not report pain in the foot. He's also asking when it will be appropriate to have his right foot orthotic adjusted in his diabetic shoe although he's currently wearing a forefoot offloading shoe at all times. 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 08/11/17. Seen by Jean-Pierre Pinto PA-C. The patient reports stable drainage from his right foot diabetic ulcer. Again his blood sugars have been above 150 since his last visit. 08/08/17. Seen by Jean-Pierre Pinto PA-C. The patient reports no increase in drainage from his right foot diabetic ulcer. His blood sugars this week have reportedly been mostly above 150. 08/04/17. Seen by Dr. Nice. The patient does not report increased drainage associated with the chronic right plantar foot diabetic ulcer since his last visit and he's offloading appropriately as recommended. He also was seen by Dr. Solitario, podiatry, who discussed possible surgical options to address the severe right 1st toe valgus deformity that's complicating the ulcer and contributing to heavy periculcer callus formation however there's no plan of intervention at this time. 08/01/17. Seen by Dr. Nice. The patient does not report increased drainage associated with the chronic right plantar foot diabetic ulcer since his last visit and he's offloading appropriately as recommended. 07/28/17. Seen by Dr. Nice. The patient does not report increased drainage associated with the chronic right plantar foot diabetic ulcer since his last visit and he's offloading appropriately as recommended. We've increased his visits to twice weekly due to the very heavy callus formation that's contributing to the refractory nature of the ulcer. 07/25/17. Seen by Dr. Nice. The patient does not report increased drainage associated with the chronic right plantar foot diabetic ulcer since his last visit and he's offloading appropriately as recommended. Kerasal is not being applied to the periulcer callus and his visits have been decreased to once weekly over the past few weeks while the ulcer has been improving. 07/18/17. Seen by Dr. Nice. The patient does not report increased drainage associated with the chronic right plantar foot diabetic ulcer since his last visit and he's offloading appropriately as recommended. 07/11/17.Seen by Dr. Nice. The patient has been wearing his offloading shoe and using a knee scooter as recommended and does not report significant drainage associated with the chronic right plantar foot diabetic ulcer since his last visit. 07/04/17. Seen by Dr. Nice. The patient has been wearing his offloading shoe as recommended and does not report significant drainage associated with the chronic right plantar foot diabetic ulcer since his last visit. 06/30/17. Seen by Dr. Nice. The patient has been wearing his offloading shoe as recommended and does not report significant drainage associated with the chronic right plantar foot diabetic ulcer since his last visit. 06/27/2017. Seen by Dr. Nice. The patient has been wearing his offloading shoe as recommended and does not report significant drainage associated with the chronic right plantar foot diabetic ulcer since his last visit. His blood sugars are also mostly below 100 now and he's using his knee scooter as well to further optimize offloading. 06/23/2017. Seen by Dr. Nice. The patient does not report pain nor increased drainage associated with the chronic right plantar foot diabetic ulcer since his last visit. He is wearing his offloading shoe as recommended now and his blood sugar control has improved with some below 200. 06/20/2017. Some by Dr. Nice. The patient is not report increased drainage position with chronic right plantar foot diabetic ulcer since last visit. He is now clindamycin for the resistant Staphylococcus haemolyticus positive culture that was taken to the last visit. His blood sugars continued to be elevated and or over 300 earlier this morning despite having his Lantus dose increased recently. He is also wearing his diabetic shoes but not an offloading surgical shoe as I have been recommending. 06/16/17. Seen by Dr. Nice. The patient does not report increased drainage associated with chronic right plantar foot diabetic ulcers since his last visit. His recent wound culture grew a resistant coag negative staph organism. He also met with his primary care provider, Dr. Green, to increase his dosing of Lantus and plans to work with him on dietary measures to help gain better control of his elevated blood sugars. 06/13/17. Seen by Dr. Nice. The patient's blood sugars again are over 300 today and his appointment with his primary care provider to address this. He does not report any acute changes regarding the chronic right plantar foot diabetic ulcer and is using his knee scooter to help facilitate offloading as much as possible. 06/09/17. Seen by Dr. Nice. The patient does not report significant drainage associated with the chronic right plantar foot diabetic ulcer since his last visit. 06/06/17. Seen by Dr. Nice. The patient does not report significant drainage associated with the chronic right plantar foot diabetic ulcer since his last visit and he's lost another 7 lbs since increasing his dose of Lasix due to abnormal weight gain and significant bilateral lower extremity edema. 06/02/17. Seen by Dr. Nice. The patient does not report significant drainage associated with the chronic right plantar foot diabetic ulcer since his last visit. His increase his dose of Lasix and has lost 7 pounds over the past 3 days. This is been done due to the significant increase in leg swelling over the past 2 weeks. 05/30/17. Seen by Dr. Nice. The patient does not report increased drainage associated with chronic right plantar foot diabetic ulcer since his last visit however he does feel that the right foot and leg are swelling considerably over the past few days. We note a 4 pound weight gain since his last visit on Monday and he states is taking his diuretic as prescribed. 05/26/17. Seen by Dr. Nice. The patient does not report increased drainage associated with chronic right plantar foot diabetic ulcers since his last visit. His culture grew a somewhat resistant coag negative staph and he is not currently on antibiotics. 05/23/17. Seen by Dr. Nice. Staff reports some increased drainage on his dressings covering the chronic right plantar foot diabetic ulcer today. His blood sugar is again over 300 and he states he is eating rice and potatoes trying to cut back. He continues offload with his knee scooter as recommended and does not report pain or any other acute ulcer related issues today. 05/19/17. Seen by Dr. Nice. The patient does not report increased pain or drainage associated with chronic right plantar foot diabetic ulcer since his last visit. He is using his knee scooter as recommended and has had significant problems with heavy callus at the site due to a severe right first toe valgus deformity. He is now attending clinic twice weekly for debridement of the ulcer and complicating callous. 05/16/17. Seen by Dr. Nice. The patient does not report increased drainage or pain associated with chronic right plantar foot diabetic ulcer since his last visit. Of note, the patient's blood sugar as 271 today and his A1c was 9.8 in March. 05/12/17. Seen by Dr. Nice. The patient does not report increased pain or drainage associated with chronic right plantar foot diabetic ulcer since his last visit. He is using his knee scooter to help offload the site which is particularly important based on patient's morbid obesity coupled with his severe first MTPJ valgus deformity. 05/09/17. Seen by Dr. Nice. The patient does not report increased drainage or pain associated with the chronic right plantar foot diabetic ulcer since his last visit. He states his blood sugars continue to be above 200 consistently although are improving with compliance to a lower carbohydrate type diet. He was started on metformin about a month ago he complains of some intermittent upper extremity weakness since then and will be discussing this with his primary care provider. He is also awaiting his new diabetic shoes that are being adjusted to help accommodate for his severe right first toe valgus deformity. 05/02/17. Seen by Jean-Pierre Pinto PA-C. The patient reports stable drainage from his right 1st toe ulcer and blood sugars continue to be above goal. 04/25/17. Seen by Jean-Pierre Pinto PA-C. The patient reports his blood sugars have been above 150 this week. He does not report increased drainage from his right 1st toe diabetic ulcer. 04/18/17. Seen by Dr. Nice. The patient does not report increased drainage associated the chronic right first toe diabetic ulcers since his last visit. 04/11/17. Seen by Jean-Pierre Pinto PA-C. The patient reports he is developing more calloused areas on his feet and is concerned about new ulcers occurring. His chronic 1st toe diabetic ulcer has been stable. 04/04/17. Seen by Jean-Pierre Pinto PA-C. The patient reports he has not been able to get his blood sugars below 150. Drainage is reportedly decreased from his diabetic foot ulcer. 03/30/17. Seen by Jean-Pierre Pinto PA-C. The patient reports continued high blood sugars, all above 150. Drainage from his ulcer is not increased. 03/23/17. s Seen by Jean-Pierre Pinto PA-C. The patient reports blood sugars above 150 again this week. He is concerned that something must be going on with an infection as he believes his diet has not changed and thus his sugars should be lower. His wound has had stable drainage. 03/15/17. Seen by Jean-Pierre Pinto PA-C. The patient reports he has had some blood sugars above 150 this week. He reports no increase in drainage from his right 1st toe diabetic ulcer. 03/08/17. Seen by Dr. Nice. The patient was discharged from the hospital recently following treatment for cellulitis associated with the chronic right first toe diabetic ulcer. He grew MRSA from the wound culture and was treated with IV vancomycin and is now on Bactrim. He does not report pain nor significant drainage associated with the ulcer nor side effects from antibiotics. 02/23/17. Seen by Dr. Nice. The patient does not report increased drainage associated the chronic right first toe diabetic ulcers since his last visit. The patient also states that he is more active over the holidays and was unable to use his knee scooter at times while walking outside due to safety concerns. 02/08/17. Seen by Dr. Nice. The patient does not report increased drainage associated the chronic right first toe diabetic ulcers since his last visit. He states he is using his offloading shoe when at home and a knee scooter went out. 02/01/17. Seen by Dr. Nice. The patient does not report increasing pain or drainage associated with chronic right first toe diabetic ulcer since his last visit. 01/25/17. Seen by Dr. Nice. The patient does not report increasing pain or drainage associated with chronic right first toe diabetic ulcer since his last visit. 01/18/17. Seen by Dr. Nice. The patient does not report increasing pain or drainage associated with chronic right first toe diabetic ulcer since his last visit. Of note, the patient's blood sugar is over 260 again today and he admits that it's been significantly elevated for a number of weeks. He has an appointment with his primary care provider to discuss this next week. 01/11/17. Seen by Dr. Nice. The patient does not report increasing pain or drainage associated with chronic right first toe diabetic ulcer since his last visit. He states his blood sugars have been running high recently and he is going to follow-up with his primary care provider in the near future to address this. 01/04/17. Seen by Dr. Nice. The patient does not report increased drainage associated with chronic right first foot diabetic ulcers since his last visit. He's also been applying Kersal to the periulcer as recommended. 12/28/16. Seen by Dr. Nice. The patient does not report increased drainage associated with chronic right first foot diabetic ulcers since his last visit. 12/22/16. Seen by Dr. Nice. The patient does not report increased drainage associated with chronic right first foot diabetic ulcers since his last visit. He's not been applying Kersal to the periulcer callus and does not appear to be using his knee scooter at all times to offload the ulcer. 12/15/16. Seen by Jean-Pierre Pinto PA-C. The patient reports he continues to have blood sugars above 150 this week. He recently saw his PCP, they did not alter his diabetic care plan. His visit was a follow up for an ER visit for chest pain which was negative for IL and was thought to be epigastric in origin. His diabetic ulcer of the right foot has not had increased drainage. 12/06/16. Seen by Jean-Pierre Pinto PA-C. The patient reports that he has found his knee scooter and plans to start using it today. He also reports most of his blood sugars have been above 150. Drainage from his ulcer has been stable. 11/25/16. Seen by Dr. Nice. The patient does not report increased drainage associated with chronic right first foot diabetic ulcers since his last visit. He is now on antibiotics for wound infection and does not report adverse side effects. Of note, he is not yet using a knee scooter nor offloading shoe as we recommended last week. 11/18/16. Seen by Dr. Nice. The patient returns to our clinic and presents with recurrence of a right first MTPJ plantar diabetic ulcer. He states it started a couple weeks ago when he was attempting to remove overlying callus at home. He does not report significant drainage or pain associated with the ulcer and is not currently on antibiotics. He also states his recent A1c was 7.8. His blood sugar in clinic today is 250. 01/11/16 Seen by Jean-Pierre Pinto PA-C. The patient reports no drainage from his chronic right 1st MTPJ joint since his last dressing change. 01/04/16 Seen by Jean-Pierre Pinto PA-C. The patient reports minimal drainage from his chronic right 1st MTPJ ulcer. He has recently seen his PCP and his A1c was 7.7. His lower extremity edema, abnormal weight gain and kidney failure are stable with his diuretics recently being adjusted. 12/28/15. Seen by Dr. Nice. The patient does not report significant drainage associated with the chronic right 1st MTPJ diabetic ulcer since his last visit however he does complain of increasing shortness of breath, fatigue, and an 18lb weight gain over the past week despite taking his diuretics as recommended. He does not report chest pain or cough and his blood sugars remain relatively well controlled with most below 150. 12/16/15. Seen by Dr. Nice. The patient does not report significant drainage associated with the chronic right 1st MTPJ diabetic ulcer since his last visit. He's applying kerasal to the surrounding callus as recommended and offloading nearly at all times using his knee scooter. 12/07/15 Seen by Jean-Pierre Pinto PA-C. The patient reports compliance with his new offloading brace and shoe and has seen minimal drainage from his diabetic foot ulcer since his last visit. 11/30/15. Seen by Dr. Nice. The patient does not report significant drainage associated with the chronic right 1st MTPJ diabetic ulcer since his last visit and he's wearing a combined AFO / diabetic shoe system that he feels may be better offloading the ulcer. 11/23/15 Seen by Jean-Pierre Pinto PA-C. The patient reports that he is wearing his new diabetic shoes and inserts. He is continuing physical therapy for gait training and reports continued difficulty with stairs and occasional bouts of dizziness. He reports stable drainage from his chronic right foot diabetic ulcer. 11/16/15 Seen by Jean-Pierre Pinto PA-C. The patient reports stable drainage from his right foot diabetic ulcer. He also reports that his diabetic shoes and inserts are quite old and worn out. He is ambulating with is 4 wheeled walker and is working with PT for gait training. 11/09/15 Seen by Jean-Pierre Pinto PA-C. The patient reports that he is still using a 4 wheeled walker instead of a 4 footed walker. PT is working with him to improve his gait and balance. Drainage from his right foot ulcer has been stable. 11/02/15 Seen by Jean-Pierre Pinto PA-C. The patient reports no increase in drainage from his chronic diabetic foot ulcer. He has had multiple blood sugars above 150 this week. 10/29/15. Seen by Dr. Nice. The patient was recently discharged from [facility] following treatment of sepsis thought to possibly be related to his chronic right 1st MTPJ diabetic ulcer that grew Enterococcus just prior to his admission. He now feels generally weak , has lost 18 lbs following diuresis, and is residing at home where he's minimizing his weight bearing on the right foot. He does not report significant drainage from the ulcer nor pain and states his blood sugars remain mostly around 150. He also continues on levofloxacin and does not report adverse side effects. 10/14/15. Seen by Dr. Nice. The patient report persistent bloody drainage from the chronic right 1st MTPJ diabetic ulcer and he feels the callus has increased significantly since it was last debrided 2 week ago. He does not report fevers or feeling unwell and states his blood sugars are well controlled with most below 150. He's using his AFO when walking nearly at all times to facilitate offloading the significant right 1st MTPJ valgus deformity. 09/24/15 Seen by Jean-Pierre Pinto PA-C. The patient reports that he is no ran out of lasix due to a mix up at the pharmacy and unavailability of his strength/dose of tablets. He continues trying to offload his ulcer with his wheeled walker and notes stable ulcer drainage. 09/17/15. Seen by Dr. Nice. The patient continues to report some bloody drainage from the chronic right 1st MTPJ diabetic ulcer and he's started reducing his activity and continues to use his knee scooter at home to offload the foot. 09/10/15. Seen by Dr. Nice. The patient states he was more active over the past week and notices increased bloody drainage associated with chronic right first MTPJ diabetic foot ulcer. He continues to wear his AFO and states his blood sugars are mostly below 150. 09/03/15. Seen by Dr. Nice. The patient does not report significant drainage associated with the chronic right first MTPJ diabetic ulcer over the past week. He does feel that the callus smaller than on previous visits and is wearing his AFO at all times. Of note, he 's now in doxycycline to treat the recent coag negative Staph cultured from the ulcer at his last visit. 08/27/[address] Nice. The patient reports increase bloody drainage associated with the chronic right foot 1st MTPJ diabetic ulcer and he feels his activity has increased due to physical therapy and increased mobility over the past week. He does not report pain at the ulcer site, fevers, or feeling unwell in general. 08/20/[address] Nice. The patient does not report significant drainage associated with the chronic right foot 1st MTPJ diabetic ulcer over the past week and he's using a knee scooter as much as possible when mobilizing to offload the foot. His blood sugars also remain relatively well controlled with most below 150. 08/13/[address] Nice. The patient does not report significant drainage associated with the chronic right foot diabetic ulcer over the past week and he's offloading using a knee scooter as recommended. His blood sugars remain relatively well controlled with most below 150. 08/06/[address] Nice. The patient reports recurrence of some drainage from the chronic right foot diabetic ulcer over the past few days and states he's been more active with physical therapy. His blood sugars remain well controlled with most below 150 and he's wearing his AFO when away from the house and using a knee scooter most of the time while at home to facilitate offloading. He's also applying Kerasal to the callus in the periwound area as recommended. 07/23/[address] Nice. The patient does not report drainage from the chronic right 1st MTPJ diabetic ulcer over the past week and he's using his new AFO and knee scooter to offload the foot. 07/16/[address] Nice. The patient does not report pain or drainage from the chronic right 1st MTPJ diabetic ulcer and he's wearing his newer AFO while offloading with a knee scooter most of the time. 07/09/[address] Nice. The patient does not report drainage or pain associated with his chronic right foot 1st MTPJ diabetic ulcer and he's been offloading by using a knee scooter when mobilizing. His body builder apprentice is present today as well to discuss possible adjustments to his AFO with the goal of reducing callus formation that's in part caused by his significant right 1st toe valgus deformity. He also states his blood sugars remain well controlled below 150 consistently. 07/03/[address] Nice. The patient does not report significant drainage from the chronic right foot diabetic ulcer and he's offloading by using his knee scooter. His blood sugars also remain relatively well controlled around 150 consistently. 06/26/[address] Nice. The patient report some continued bloody drainage from the chronic right 1st MTPJ diabetic ulcer however he does not report associated pain , fevers or feeling unwell. His blood sugars remain consistently below 150 and he's using his walker and knee scooter for offloading as recommended. 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 06/19/[address] Nice. The patient does not report pain associated with his chronic right 1st MTPJ diabetic ulcer however he states some bloody drainage persists on the dressings. He does not report fevers or feeling unwell and states his blood sugars are well controlled below 150 consistently and he's using a knee scooter and walker to offload the ulcer when mobilizing. He also does not report pain or drainage associated with the left 2nd toe wound. 06/11/[address] Nice. The patient was recently discharged from [facility] following a fall at home that resulted in a broken rib. Regarding his chronic right 1st MTPJ diabetic ulcer he does not report significant drainage and has been offloading through bed rest and using a knee scooter while at home. His blood sugars also remain well controlled with most below 150. He also reports a new wound on the dorsum of the left 2nd toe that he believes occurred during his fall. He does not report associated pain or significant drainage. 05/28/[address] Nice. The patient reports some increased bloody drainage from the chronic right 1st MTPJ diabetic foot ulcer over the weekend associated with a new 'soft' area along the distal margin. He's been more active the past the past few days but states he's using his knee scooter to offload at all times. His blood sugars also remain well controlled with most around 120 and he's no longer on antibiotics. He also continues to wear his old AFO but states there was a recent adjustment of a cut out lined with 'soft' plastic in the area of the ulcer. 05/21/[address] Nice. The patient report less drainage from the chronic right foot 1st MTPJ diabetic ulcer over the past week. He's completed his course of doxycycline and he continues on fluconazole for the recent Alma Delia positive wound culture. He's also reverted back to using his previous AFO while his newer one is adjusted to try to address the recent significant increase in callus formation that's occurred. His blood sugars also remain well controlled under 150 consistently and his recent episodes of hypoglycemia has resolved with an adjustment of his insulin regimen. 05/14/[address] Nice. The patient reports less drainage on the dressings covering the chronic right 1st MTPJ diabetic ulcer since starting doxycycline for a coag negative Staph wound culture along with fluconazole for the alma delia positive culture. His blood sugars remain well controlled below 120 and his insulin has been decreased due to the recent episodes of hypoglycemia. His diuretic has also been decreased as he's lost considerable water weight over the past month. 05/07/[address] Nice. The patient continues to report modest bloody drainage on the dressing covering the chronic right 1st MTPJ diabetic ulcer and he continues to limit his walking but has not been using a knee scooter or walker around the house to facilitate offloading. His blood sugars remain well controlled mostly below 150. 04/30/[address] Nice. The patient continues to report bloody drainage on his right foot diabetic ulcer dressing and he's feeling a bit unwell in general without reporting specific symptoms. He also continues to have intermittent low blood sugars in the 50-60' s and has not discussed this issue with his PCP recently. He's wearing his AFO daily but admits to having difficulty using his walker at all times due to limited space in his new apartment. 04/27/15 Seen by Jean-Pierre Pinto PA-C. The patient reports nonspecific malaise for the past few days. Last night, he reports feeling to tired, weak and shaky to watch TV and went to bed very early. His malaise has been increasing over the past 1-2 weeks and he has frequently been monitoring his blood sugar. His blood sugars are lower than normal lately but never below 100. He has been reducing his insulin dosing in the past 2 weeks to compensate for the lower numbers. He continues to loose weight while continuing to take Lasix and metolazone. 04/23/[address] Nice. The staff and patient continue to report at least moderate serosanquinous drainage from the chronic right 1st MTPJ diabetic ulcer. His blood sugars have been well controlled over the past week with most below 150. He does report being more active than usual while he's been moving to his new home and he also states he continues to loose weight following a recent increase in his diruetics. His wound culture from the last visit reported heavy Diptheroids and he's not currently on antibiotics. 04/20/15 Seen by Jean-Pierre Pinto PA-C. The patient reports that he has moved house and has been on his feet much more so as a consequence. He reports increased drainage from his right plantar foot diabetic ulcer. In addition he believes he struck it against a hard surface when moving. He has had no significant pain with weightbearing but is insensate in this area. 04/15/[address] Nice. The patient reports continued weight loss, and decreasing leg swelling, since starting metolazone totaling about 20 lbs. He also feels the chronic right 1st MTPJ diabetic ulcer has been draining increasing amounts of sanguinous fluid. His blood sugars remain well controlled with most below 120 and he does not report fever or feeling unwell. 03/25/[address] Nice. The patient states he walked a considerable amount yesterday and now reports some bleeding from the chronic right 1st MTPJ diabetic foot ulcer. He also continues to report increased weight gain and now some shortness of breath when walking short distances. He has a low grade fever today but does not report a cough or feeling unwell otherwise. 03/11/2015 Seen by Jean-Pierre Pinto PA-C. The patient's weight has increased 10 lbs in the past week. He reports increased shortness of breath with exertion. He denies chest pain, jaw, neck, shoulder pain or shortness of breath at rest. He has been compliant with his diuretics. His ulcer drainage has been stable. 03/04/2015 Seen by Jean-Pierre Pinto PA-C. The patient is wearing his newly adjusted AFO and reports an increase in walking since last visit. He was unaware that his temperature was elevated and reports no URI symptoms such as cough or sore throat. 02/24/2015 Seen by Jean-Pierre Pinto PA-C. The patient believes his ulcer has now been draining more despite trying to offload the ulcer. 02/11/[address] Nice. The patient reports less drainage from the chronic right 1st toe diabetic ulcer and he's still waiting for approval for his new AFO. 02/04/[address] Nice. The patient feels the drainage from the right 1st MTPJ ulcer has decreased since last week and he's scheduled to see Dr. Solitario tomorrow to review his foot deformity and recurrent callus formation at the site of the ulcer. 01/30/[address] Nice. The patient returns to clinic and reports recurrence of the recently healed right 1st MTPJ diabetic foot ulcer with new moderate drainage and significant callus formation. He's not yet re-established with Dr. Solitario, podiatry, due to insurance issues and is awaiting approval for an adjustment for his AFO. His blood sugars remain controlled below 150 mostly and he does not report pain in the foot or fevers. 01/12/[address] Nice. The patient does not report drainage from the right 1st toe MTPJ ulcer and he's scheduled to have his new AFO fitted this week. 01/05/[address] Nice. The patient does not report drainage associated with the right 1st MTPJ diabetic foot ulcer however he states he has had some intermittent, very brief 'shooting' pain at the site of the ulcer the past few days. His blood sugars also remain between 120 and 150 mostly. 12/29/[address] Nice. The patient does not report drainage from the chronic right 1st MTPJ diabetic foot ulcer and he offloads using a walker and surgical shoe at all times except for when he wears a slipper around his small apartment. 12/22/[address] Nice. The patient does not report significant drainage from the right 1st MTPJ diabetic foot ulcer and he states his blood sugars are still in the 150 range with some over 180. 12/10/[address] Nice. The patient does not report significant drainage from the right 1st MTPJ diabetic foot ulcer. 12/04/[address] Nice. The patient does not report any drainage from the chronic right 1st MTPJ diabetic foot ulcer and he's still waiting for insurance approval for a custom, articulating AFO. His blood sugars also remain relatively well controlled below 150 consistently. He also continues to apply Kerasal to the associated callus daily. 11/20/[address] Nice. The patient's been feeling unwell the past week and feels he may have lost as much as 10 lbs due to poor oral intake. Otherwise he does not report any new problems regarding his right 1st MTPJ plantar diabetic ulcer. 11/07/[address] Nice. The patient reports only scant drainage from the right plantar diabetic foot ulcer. He's been offloading as recommending with a walker and is awaiting a approval for an articulating AFO. His blood sugars remain mostly well controlled below 150. 10/31/14 Seen by Jean-Pierre Pinto PA-C. The patient feels he has reached another plateau with regard to his wound healing. His right plantar diabetic ulcer continues to drain and has not improved recently. He is wearing his brace and reports compliance with offloading. 10/21/[address] Nice. The patient reports only scant drainage from his right 1st plantar surface MTPJ diabetic foot ulcer. He continues to offload with a frame walker and his blood sugars are moderately well controlled with most below 150. 10/14/[address] Nice. The patient does not report significant drainage from the right 1st plantar MTPJ ulcer. Of note, when discussing his blood sugars he mentions he's on both 70/30 insulin as well as Lantus and he frequently has blood sugars in the 150-200 range. 10/07/[address] Nice. The patient reports some modest drainage from the right 1st MTPJ plantar ulcer but no pain, erythema, or swelling. His blood sugars are mostly below 150 and he offloads with his AFO. 09/30/14 Seen by Jean-Pierre Pinto PA-C. The patient reports continued compliance with his AFO and he is trying to offload. He is scheduled now with PT for gait training and knee strengthening. He reports his knee is still sore at times and he feels unstable at times when using his offloading devices and AFO. 09/23/[address] Nice. The patient reports only minimal drainage from the right plantar 1st MTPJ ulcer. 09/16/14 Seen by Jean-Pierre Pinto PA-C. The patient continues to use his AFO, offloading shoe, knee scooter and frame walker to offload his wound. 09/09/14 Seen by Jean-Pierre Pinto PA-C. The patient has been wearing his AFO and offloading shoe together, with the added padding as designed by Sahra BOYD of [facility]. He reports that he feels unsteady and that his knee has felt strained and he discontinued using the brace as he is concerned that he has, or will, re-injure his right knee. He also is having difficulty using his knee scooter with the brace. One year ago , while attempting to offload his foot he did injure his knee and required physical therapy to recover. 08/19/14 Seen by Jean-Pierre Pinto PA-C. The patient's weight is down 10 lbs from his previous visit. His twice daily naproxen has been discontinued by his PCP in an effort to reduce his lower extremity edema. 08/15/14 Seen by Jean-Pierre Pinto PA-C. The patient continues to have weight fluctuations and large amounts of weight gain in short periods of time despite increased diuretic usage. 08/04/14 Seen by Jean-Pierre Pinto PA-C. The patient has been taking his Levaquin and again reports to the clinic with a low grade fever. He reports nearly daily application of Kerasal and his weight and edema have been stable on a higher dose of diuretics. Blood sugars remain stable on his current diabetic medications. 07/21/14 Seen by Jean-Pierre Pinto PA-C. The patient does not report fever, chills or URI symptoms. His wound drainage has been stable. 07/16/[address] Nice. The patient reports persistent but minimal drainage from the right foot plantar ulcer and continues to offload with a walker at all times. His blood sugar are mostly below 150 with a few around 170 the past few days. 07/01/14 The patient reports that he has gained 8lbs in 8 days. Denies SOB. Does not report fever or chills. 06/23/[address] Nice. The patient continues to offload with a knee scooter and walker at all times. He does not report significant drainage from the right plantar foot ulcer. 06/20/[address] Nice. The patient has been offloading his right foot ulcer with a walker and reports less drainage over the past 2 days. He's now off of antibiotics and his blood sugars remain well controlled below 150. 06/11/[address] Nice. The patient reports persistent drainage from the right foot plantar 1st MTPJ ulcer and he completed his course of doxycycline which was started for a MRSA positive culture from the ulcer site. His blood sugars have also been a bit elevated above 150 recently. He does not report fever or chills however. 06/04/14 The patient reports difficulty in offloading his wound due to inability to use crutches due to poor balance. He find the wheelchair difficult to use and his knee scooter is not rated for his weight. He denies fever, chills or URI symptoms. 05/28/14 The patient's been attempting to offload with a knee scooter but is concerned it may not be appropriate or stable based on his weight. He does not report increased drainage from he right plantar 1st MTPJ ulcer and his blood sugars remain well controlled below 120. 05/21/14 The patient reports only minimal sanguinous drainage from his right foot plantar ulcer and has been offloading it by minimizing his walking. He's also completed a course of doxycycline that was given for a coag negative staph wound culture from the ulcer. He states his blood sugars are consistently below 120 and does not report hypoglycemia. 05/13/14 The patient reports minimal drainage from his right foot plantar ulcer. His recent wound culture from the site returned coag negative Staph and Diptheroids. 05/02/14 The patient reports less drainage from the right plantar foot ulcer and continues to off loading by minimizing walking and wearing a post-op shoe. 04/29/14 The patient continues to wear his surgical boot with the cutout for his right foot plantar diabetic ulcer. He reports no increase in drainage. 04/25/14 The patient reports minimal bloody drainage on the right foot plantar ulcer dressing that was placed yesterday. He does not report any drainage from the previously healed lateral foot ulcer. His edema in the right leg persists despite wearing compression stockings daily and his blood sugars remain well controlled below 120 with his last A1c approx 2 months ago at 7.4. 04/22/14 The patient reports no increase in drainage from his wounds today. He has been faithfully wearing his orthopedic boot with the cut-out area around his 5th MT ulcer. 04/15/14 The patient reports no increase in drainage from his wounds today. He reminds me that a TCC was the cause of his 5th MT ulcer and he is not excited about trying a TCC again. He is interested in HBOT if it will be beneficial to his wounds. 04/09/14 The patient reports increased drainage from his right 5th MT ulcer and feels his surgical boot he's been wearing for off loading may have caused pressure to the area. His blood sugars have improved and he also reports a 5 lb weight loss after doubling his dose of lasix over the past week. Of note, he did not liaise with his PCP prior to doing this. 04/04/14 The patient states that he was walking a bit more than usual yesterday but notes some sanguinous drainage on his plantar 1st MTPJ dressing for the past few days. He's also put on 7 lbs in the past week and feels his legs are more swollen than usual. He does not report chest pain, shortness of breath, or orthopnea. His blood sugars are also up a bit around 180. He's compliant with both his diabetes regimen and his diuretic therapy. 03/28/14 The patient reports no increased drainage or other complications from his right foot diabetic ulcers. 03/21/14 The patient reports minimal drainage from his right foot diabetic ulcers. He continues to minimally weight bear using a surgical boot and a walker. 03/14/14 The patient does not report increased drainage or other new issues regarding his right 5th MTPJ and right 1st MTPJ plantar ulcers. His blood sugars remain more elevated than usual with some between 150 and 180. 03/07/14 The patient reports no fever or increased right foot wound pain or drainage. 02/28/14 The patient reports that his blood sugar this morning is a bit elevated around 160 but has mostly been below 140 over the past few days. He's been off antibiotics for 3 days now and reports modest drainage from the right 5th MT ulcer while dressing changes are being done every two days. 02/24/14 The patient does not report any new issues regarding his right foot ulcers including increased drainage, fever, or chills. He completed his course of doxycycline yesterday. 02/17/14 The patient reports moderate yellow drainage from the right foot 5th MTPJ ulcer. He's completed a course of doxycycline and does not report fever or chills but states his blood sugars remain higher then normal in the 170's. His wound culture was positive for Enterobacter and his ESR was elevated at 41 and CRP at 2.7. 02/06/14 The patient does not report increased drainage from the right 5th MTPJ ulcer nor does he report fever or pain. He continues to off load with a walker and minimizing walking. He continues on doxycycline which was started empirically at his last visit and his culture has since grown Enterobacter which should be susceptible to doxy based on sensitivities. His xray of the foot was not concerning for osteomyelitis however his ESR and CRP are both moderately elevated. He also feels his legs are more swollen than usual and he continues to take his lasix as scheduled. 02/03/14 The patient does not report fever, chills, or pain in the right foot however when the TCC was removed today he's noted to have a sizable increase in the diameter and depth of what was a small 5th MTPJ ulcer. 01/14/14 The patient reports no new problems regarding is right diabetic foot ulcer. 12/31/13 The patient reports minimal serous drainage from his right 5th MTPJ ulcer and states he continues to off load his foot as much as possible. He does not report pain or drainage from the site of his right 1st MTPJ ulcer. 12/19/13 The patient tolerated with TCC without any complaints but there appears to be a small area of erythema over the right 5th MTPJ. He notes his blood sugars are typically below 120 and his A1c last week was 7.4. 12/13/13 The patient has no complaints regarding his TCC nor his plantar ulcer. 12/11/13 The patient returns for placement of a TCC today. He does not report any new problems regarding is plantar ulcer. 12/03/13 The patient states his plantar ulcer drainage is stable and he's continued to not use a cut-out foam doughnut over the ulcer. 11/26/13 The patient has kept the foam dressing in place from the last visit and has not used a cut-out foam dressing which we felt caused some deterioration of the foot ulcer. He has some mild drainage but no pain. 11/22/13 The patient returns for review of his plantar ulcer and callus that seems to be deteriorating despite an adjustment to his boot and off loading measures. The patient reports his callus accumulation is in spite of daily kerasal applications. Patient reports a new small wound on the left second toe. Josue states that it might be related to the brace. Patient had brace modified to help off load. 11/06/13 Josue states he was able to schedule with the prosthetic doctor tomorrow at noon. He reports no new problems or concerns. He also says that he is done with physical therapy since yesterday as insurance will not cover it any longer. 10/31/13 The patient reports he received his dressing supplies. Dressings changes are going well and no new problems are reported. He saw his airplane navigator, Dr. Solitario, on Monday for a check up and had and x-ray of the foot. 10/24/13 Josue reports he has been staying off of his feet as much as possible. He has been changing the dressing as ordered and states there has been just a small amount of drainage. He recently ran out of his dressings and will need more ordered or the balance sent home with him. 10/17/13 Patient states he has no new problems or concerns. He did have a small increase in drainage the other day but he had walked more than normal the day before. 10/09/13 Josue states he has no new issues. Dressing changes are going well. 10/02/13 Josue states there have been no new issues with dressing changes. They have been changed once since his last visit. No complaints of pain with the wound. 09/20/13 Josue was discharged from wound care September 05. States that he has been using pumice stone on callus area where had previous wound and may have been too aggressive. Also has been on feet more and having increase in lower extremity edema. Continues to wear the tetragrip F he had received in the clinic 6 hours per day but has not ordered any yet. 09/27/13 Patient states that there have been no issues with using the tetra security system sales consultant. Asking about getting compression stockings from drug store for continued use. 09/05/13 Patient states he has set up physical therapy for the problems with his knee. He starts these treatments on 09/11. There has been no new issues with his wound and he changes the dressings about every two days. He reports little to no drainage. 08/06/13 States no new problems with wound area. Been using kerosol daily. 08/19/13 Patient states he twisted his knee a week ago, and it is effecting his walk slightly. He also complains of more edema in his legs, and has an appointment with his PCP tomorrow regarding the issue. No new problems or concerns with his wound. No new problems or concerns. Patient states he changed the dressing a few times this last week. Saw Dr. Solitario this past week for check up with no change o his management. 07/26/13 The patient has had new brace for one week and so far it is working out well. No other complaints at this time. 07/18/13 Patient got brace for foot and leg yesterday. No problems or concerns. 07/11/13 No problems or concerns. Changed dressing twice since last visit 07/04/13- Pt went to his PCP and his lasix were increased from 20mg to 40mg. He states his edema has decreased since then. Pt's diabetic foot brace (decreases lateral movement to reduce pressure on the sides of his feet) will arrive in about another week. 06/20/13- Pt reports increased edema in his feet for the last week, he has been walking more, but also sitting with his feet down more. With the increase in exercise he states his back has been hurting. On Sunday 06/18 pt went to [facility],and had his ankle brace fitting. 05/31/[address] Green this am. Changed dressing twice this week. Saw body builder apprentice (in [place]) on Monday. Considering ankle brace 05/24/13 states started walking program at 5 minutes at a time and taking the bus to clinic apt. 11/08/12 Pt is changing dressing every two days. Is concerned about the edema to the left leg that had the cellulitis. States it is warm. 11/15/12 patient has been having more nerve pain. He has been changing his dressing either every day or every other day. 11/22/12- Patient continues to change dressing about every day. No problems noted. Patient changing dressing about q o day. Thinks wound is less deep. 12/07/12 Pt only changed dressing twice since last visit. No concerns or problems. 12/18/12 When cleaning wound was able to aspirate large purlent sero-sang fluid from site. Pt states he feels it was doing better. 12/24/12 Decreased drainage and pt states he feels the wound is doing well. 12/31 Pt states he has had decreased draiange from wound. Pt denies pain. 01/07/13Pt states the kerasol didn't really do much, but admits he was only applying it every other day and is not sure what his expectations should be. He believes he may have bumped a toe on the left foot and has been concerned about some bruising there but admits it is getting better. Still does not have his new shoes and says he is exploring other options like disability. 01/21/13 feeling well since last visit. feels he may have bumped third toe so wants it to be seen. Level 2- 3 neuropathic pain in right foot 02/27/12 Patient changing bandaid on foot and applying kerasol every three days. Patient got new PCP and saw him yesterday. Patient states things are going well with the wound. 03/12/[address] Green for edema and will see him tomorrow for follow up.03/25/13 states has drainage from bottom of foot. concerned about new wounds Sates he changes dressing every 2 days. Changed this AM as it came off. Using Ca alginate and foam. States no drainage last night 04/19/13 changes dressing every 2-3 days. no problem. Has appt with Dr. Solitario 04/30/13 and new shoes have arrived. To be fitted next week 04/26/13 Is wearing new shoes and states they are working well.Changed dressing twice this week 05.03.[address] Solitario last week. will see again in [address] Green started antibiotic for sinus infection States sinuses not a lot better. Has started Lakshmi D, helping some. States wound about same. Changing dressing 2 x this week as dressing came off. States added collagen one time. Past Medical History This information was obtained from the patient Patient has a medical history of: Left lower extremity cellulitis - 10/15/2012 Diabetic foot ulcer - 09/27/2013 (Hernandez grade 2; right plantar surface; Hernandez grade III (Enterobacter positive wound culture 02/03/14), lateral right 5th MTPJ originally dx 12/24/13; MRSA positive culture 06/04/14 ) Chronic venous hypertension Type II Diabetes Hypertension Morbid Obesity Kidney Stones Hx MRSA Diabetic neuropathy Hallux valgus (right 1st toe) UTI (hospital admit) Cellulitis of legs (June and September 2012- hospital admit) Cataract surgery (10/13/15) Diabetic Neuropathy Complaints and Symptoms This information was obtained from the patient Patient complains of: General Notes: I have reviewed and concur with the Review of Systems and Past Family Social History documents completed by the clinician, I have reviewed and concur with the Wound Assessment document completed by the clinician Cardiovascular (Central/Peripheral): Lower extremity (leg) swelling Integumentary (Hair/Skin/Nails): Open Sore Musculoskeletal: Deformities, Muscle Weakness Neurological: Abnormal Gait, Loss of Protective Sensation Prior Wound History: Bleeding, Drainage Patient denies complaints or symptoms related to: Cardiovascular (Central): Irregular heart beat Cardiovascular (Central/Peripheral): Lower extremity (leg) resting pain Constitutional Symptoms (General Health): Chills, Fever, Marked Weight Change Ear/Nose/Mouth/Throat: Hearing Loss / Aid Gastrointestinal (GI): Nausea / Vomiting Hematologic/Lymphatic: Bleeding / Clotting Disorders, Bleeding Tendency Musculoskeletal: Assistive Devices Prior Wound History: Erythema, Malodor, Pain Psychiatric: Memory Loss Respiratory: Oxygen Use, Shortness of Breath OBJECTIVE Constitutional Vital signs reviewed and noted. Well developed. Alert. Clean appearing.. Height/ Length: 71 in (180.34 cm), Weight: 355.5 lbs (161.59 kgs), BMI: 49.6, Temperature: 98.8 ?F ( 37.11 ?C), Pulse: 83 bpm, Respiratory Rate: 18 breaths/min, Blood Pressure: 139/65 mmHg, Capillary Blood Glucose: 149 mg/dl, Pulse Oximetry: 98 %. Vital Signs Notes: Glucose per patient. Respiratory: No respiratory distress. Even respirations and without use of accessory muscles.. Cardiovascular: 1+ right lower extremity edema. Gastrointestinal (GI): Obese. Nondistended.. 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 Integumentary (Hair, Skin) No periwound erythema, warmth, or significant drainage. No periwound rashes appreciated or noted otherwise.. Refer to appropriate clinician wound documentation for this visit; right foot ulcer extends to subcut with base partially covered with pink granulation, remainder fibrin and slough; right 1st toe dorsal ulcer extends to dermis. Maceration present in the periwound area. Wound #6 Right, Plantar Foot is a chronic Hernandez Grade 2 Diabetic Ulcer and has received a status of Not Healed. Subsequent wound encounter measurements are 0.4cm length x 0.5cm width x 0.2cm depth, with an area of 0.2 sq cm and a volume of 0.04 cubic cm. No tunneling has been noted. No sinus tract has been noted. No undermining has been noted. There is a moderate amount of sero-sanguineous drainage noted which has no odor. The patient reports a wound pain of level 0/10. The wound margin is callus. Wound bed has Yes epithelialization, No eschar, Yes slough, Yes bright red, pink, firm granulation. The periwound skin color is normal. The periwound skin exhibited: Callus, Maceration. The periwound skin did not exhibit: Brawny Induration, Edema, Excoriation, Induration, Crepitus, Fluctuance, Friable, Rash, Dry/Scaly, Moist. The temperature of the periwound skin is WNL. Periwound skin does not exhibit signs or symptoms of infection. Local Pulse is Palpable. General Notes: Open area present on callus measuring 0.1x0.2x0.2cm. Wound #7 Right Great Toe is an acute Hernandez Grade 1 Diabetic Ulcer and has received a status of Not Healed. Subsequent wound encounter measurements are 0.2cm length x 0.3cm width x 0.1cm depth, with an area of 0.06 sq cm and a volume of 0.006 cubic cm. No tunneling has been noted. No sinus tract has been noted. No undermining has been noted. There was no drainage noted. The patient reports a wound pain of level 0/10. The wound margin is attached. Wound bed has Yes epithelialization, No eschar, Yes slough, No granulation. The periwound skin texture is normal. The periwound skin moisture is normal. The periwound skin color is normal. The temperature of the periwound skin is WNL. Periwound skin does not exhibit signs or symptoms of infection. Local Pulse is Doppler. General Notes: Dried exudate covering wound. ASSESSMENT Active Problems ICD-10 (Encounter Diagnosis) E11.621 - Type 2 diabetes mellitus with foot ulcer (Encounter Diagnosis) L97.512 - Non-pressure chronic ulcer of other part of right foot with fat layer exposed (Encounter Diagnosis) L97.511 - Non-pressure chronic ulcer of other part of right foot limited to breakdown of skin PROCEDURES Wound #6 Wound #6 (Diabetic Ulcer) is located on the right, plantar foot. A skin/ subcutaneous tissue level surgical debridement with a total area debrided of 0.32 sq cm was performed by Stephen Nice MD. Subcutaneous was removed along with devitalized tissue: callus, exudate, and slough. The following instrument(s) were used: curette. Pain control was achieved using 4% Lido. A time out was conducted prior to the start of the procedure. A large amount of bleeding was controlled with silver nitrate. The procedure was tolerated well with a pain level of 0 throughout and a pain level of 0 following the procedure. Post Debridement Measurements: 0.8cm length x 0.4cm width x 0.2cm depth; with an area of 0.32 sq cm and a volume of 0.064 cubic cm; Wound #7 Wound #7 (Diabetic Ulcer) is located on the right great toe. A selective debridement with a total area debrided of 0.06 sq cm was performed by Stephen iNce MD. Epidermis was removed along with devitalized tissue: exudate and slough. The following instrument(s) were used: curette. Pain control was achieved using 4% Lido. A time out was conducted prior to the start of the procedure. A large amount of bleeding was controlled with silver nitrate. The procedure was tolerated well with a pain level of 0 throughout and a pain level of 0 following the procedure. Post Debridement Measurements: 0.2cm length x 0.3cm width x 0.1cm depth; with an area of 0.06 sq cm and a volume of 0.006 cubic cm; Additional Information Muscle fascia or bone removed and sent to pathology?: No PLAN Wound Orders: Wound #6 Right, Plantar Foot Anesthetic Topical Xylocaine to wound bed. - In clinic only. Cleanser Cleanse Wound: - Normal saline and gauze. May Shower. - Do not get wound wet with tap water. Use cast protector when showering. Topical Treatments Antibiotic/Antimicrobial Ointment/Cream. - Iodosorb to wound base (supply sent with patient). Dressings Cover and secure with: - Foam and hypafix tape. Change Dressing: - Every other day. Wound #7 Right Great Toe Anesthetic Topical Xylocaine to wound bed. - In clinic only. Cleanser Cleanse Wound: - Normal saline and gauze. May Shower. - Do not get wound wet with tap water. Use cast protector when showering. Dressings Cover and secure with: - Bandaid. Change Dressing: - Every other day. Additional Orders: Off-Loading Keep weight off: - Right foot as much as possible. Use Knee scooter when able. Use/Wear when Walking: - Offloading shoe. Compression/Edema Control Elevation of leg(s) above the level of the heart when sitting. Avoid prolonged standing in one place. - Please avoid standing or walking for long periods of time. Knee-high gradient compression stockings. - Tetragrip F stockings to both legs. On in the morning and off at night. Follow-Up Appointments Return Appointment: - - Tuesdays and Fridays for callus removal. Other information: If you develop fever, chills, increased pain, drainage, redness or swelling please call our office. If after hours, respond to the ER. Should you experience any significant changes in your wound(s) or have any questions regarding your home care instructions please contact the wound center @ [phone]. If after hours, contact your primary care physician or go to the hospital emergency room. Scribing Attestation I attest, as the nurse, that I scribed these orders for the physician. I've reviewed the clinician's documentation and agree with the evaluation and plan as written. In addition the patient's ulcers demonstrate evidence of non-viable devitalized tissue and they will continue to benefit from sharp debridement to help promote granulation and expedite healing. Electronic Signature(s) Signed By: Date: Stephen Nice MD 09/01/2017 13:30:07 Entered By: Stephen Nice on 09/01/2017 13:19:28
== END ==
PROVIDERS: PCP Family Medicine; Visit Provider Internal Medicine
DX: E11.621 Type 2 diabetes mellitus with foot ulcer (principal); L97.512 Non-pressure chronic ulcer of other part of right foot with fat layer exposed; L97.511 Non-pressure chronic ulcer of other part of right foot limited to breakdown of skin
CPT/HCPCS: 11042; 97597

== ENCOUNTER → 2017-09-05 10:40 | Outpatient (CLI) | payer MEDICARE, OTHER, SELFPAY ==
--- NOTE | 2017-09-05 | OV.WND_ITS ---
Progress Note Details Patient Name: Josue Mesa Patient Number: [id number] PatientPatientDate: 09/05/2017 Clinician: Fay Moncada Physician / Brim Stitcher: Stephen Nice SUBJECTIVE Chief Complaint This information was obtained from the patient Diabetic ulcer to right plantar foot and great toe. Allergies Augmentin (Severity: Mild, Reaction: nausea) HPI This information was obtained from the patient 09/05/17. Seen by Dr. Nice. The patient does not report increased drainage associated with the chronic right 1st MTPJ nor right 1st toe dorsal diabetic ulcers since his last visit however the nurse reports increased bloody drainage on the dressing and increased maceration and callus along the distal margin of the ulcer. His recent wound culture grew coag negative Staph and he's not currently on antibiotics. 09/01/17. Seen by Dr. Nice. The patient does not report increased drainage associated with the chronic right 1st MTPJ nor right 1st toe dorsal diabetic ulcers since his last visit. 08/29/17. Seen by Dr. Nice. The patient does not report increased drainage associated with the chronic right 1st MTPJ diabetic ulcer since his last visit. He does complain of progressive upper extremity tremors that are most noticeable in the morning and evening and may occur after he takes his metformin. He does not report low blood sugars and he'll bee seeing his PCP today to discuss this. 08/25/17. Seen by Dr. Nice. The patient reports being more active and on a boat over the holiday which was no conducive to using his knee scooter. He feels the right 1st MTPJ ulcer has deteriorated and he has a new ulcer over the dorsum of the right 1st toe now. 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 08/22/17. Seen by Dr. Nice. The patient was seen at [facility] and they provided a new orthotic insert to help better offload the chronic right 1st MTPJ diabetic ulcer while he's wearing his surgical, forefoot offloading show. He does not report increased drainage or pain associated with the ulcer and is using a knee scooter also to help offload. He has a severe valgus deformity which results in heavy callus formation and has required twice weekly debridements which has been effective in gradually promoting the ulcer to heal. He's also been applying topical gentamicin to the ulcer base to treat the recent coag negative Staph culture that was taken due to increased drainage. 08/18/17. Seen by Dr. Nice. The patient's wound culture taken from the chronic right foot diabetic ulcer at his last visit grew an intermediately resistant coag negative Staph and his dressing change and application of gentamicin is taking place only every 2-3 days. He does not report pain in the foot but staff report his dressing as being 'bloody' today. 08/15/17. Seen by Dr. Nice. The patient reports what may be increased drainage on his right foot diabetic ulcer dressings as mentioned by his healthcare representative in assisted living. He's using a knee scooter as recommended and does not report pain in the foot. He's also asking when it will be appropriate to have his right foot orthotic adjusted in his diabetic shoe although he's currently wearing a forefoot offloading shoe at all times. 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 08/11/17. Seen by Jean-Pierre Pinto PA-C. The patient reports stable drainage from his right foot diabetic ulcer. Again his blood sugars have been above 150 since his last visit. 08/08/17. Seen by Jean-Pierre Pinto PA-C. The patient reports no increase in drainage from his right foot diabetic ulcer. His blood sugars this week have reportedly been mostly above 150. 08/04/17. Seen by Dr. Nice. The patient does not report increased drainage associated with the chronic right plantar foot diabetic ulcer since his last visit and he's offloading appropriately as recommended. He also was seen by Dr. Solitario, podiatry, who discussed possible surgical options to address the severe right 1st toe valgus deformity that's complicating the ulcer and contributing to heavy periculcer callus formation however there's no plan of intervention at this time. 08/01/17. Seen by Dr. Nice. The patient does not report increased drainage associated with the chronic right plantar foot diabetic ulcer since his last visit and he's offloading appropriately as recommended. 07/28/17. Seen by Dr. Nice. The patient does not report increased drainage associated with the chronic right plantar foot diabetic ulcer since his last visit and he's offloading appropriately as recommended. We've increased his visits to twice weekly due to the very heavy callus formation that's contributing to the refractory nature of the ulcer. 07/25/17. Seen by Dr. Nice. The patient does not report increased drainage associated with the chronic right plantar foot diabetic ulcer since his last visit and he's offloading appropriately as recommended. Kerasal is not being applied to the periulcer callus and his visits have been decreased to once weekly over the past few weeks while the ulcer has been improving. 07/18/17. Seen by Dr. Nice. The patient does not report increased drainage associated with the chronic right plantar foot diabetic ulcer since his last visit and he's offloading appropriately as recommended. 07/11/17.Seen by Dr. Nice. The patient has been wearing his offloading shoe and using a knee scooter as recommended and does not report significant drainage associated with the chronic right plantar foot diabetic ulcer since his last visit. 07/04/17. Seen by Dr. Nice. The patient has been wearing his offloading shoe as recommended and does not report significant drainage associated with the chronic right plantar foot diabetic ulcer since his last visit. 06/30/17. Seen by Dr. Nice. The patient has been wearing his offloading shoe as recommended and does not report significant drainage associated with the chronic right plantar foot diabetic ulcer since his last visit. 06/27/2017. Seen by Dr. Nice. The patient has been wearing his offloading shoe as recommended and does not report significant drainage associated with the chronic right plantar foot diabetic ulcer since his last visit. His blood sugars are also mostly below 100 now and he's using his knee scooter as well to further optimize offloading. 06/23/2017. Seen by Dr. Nice. The patient does not report pain nor increased drainage associated with the chronic right plantar foot diabetic ulcer since his last visit. He is wearing his offloading shoe as recommended now and his blood sugar control has improved with some below 200. 06/20/2017. Some by Dr. Nice. The patient is not report increased drainage position with chronic right plantar foot diabetic ulcer since last visit. He is now clindamycin for the resistant Staphylococcus haemolyticus positive culture that was taken to the last visit. His blood sugars continued to be elevated and or over 300 earlier this morning despite having his Lantus dose increased recently. He is also wearing his diabetic shoes but not an offloading surgical shoe as I have been recommending. 06/16/17. Seen by Dr. Nice. The patient does not report increased drainage associated with chronic right plantar foot diabetic ulcers since his last visit. His recent wound culture grew a resistant coag negative staph organism. He also met with his primary care provider, Dr. Green, to increase his dosing of Lantus and plans to work with him on dietary measures to help gain better control of his elevated blood sugars. 06/13/17. Seen by Dr. Nice. The patient's blood sugars again are over 300 today and his appointment with his primary care provider to address this. He does not report any acute changes regarding the chronic right plantar foot diabetic ulcer and is using his knee scooter to help facilitate offloading as much as possible. 06/09/17. Seen by Dr. Nice. The patient does not report significant drainage associated with the chronic right plantar foot diabetic ulcer since his last visit. 06/06/17. Seen by Dr. Nice. The patient does not report significant drainage associated with the chronic right plantar foot diabetic ulcer since his last visit and he's lost another 7 lbs since increasing his dose of Lasix due to abnormal weight gain and significant bilateral lower extremity edema. 06/02/17. Seen by Dr. Nice. The patient does not report significant drainage associated with the chronic right plantar foot diabetic ulcer since his last visit. His increase his dose of Lasix and has lost 7 pounds over the past 3 days. This is been done due to the significant increase in leg swelling over the past 2 weeks. 05/30/17. Seen by Dr. Nice. The patient does not report increased drainage associated with chronic right plantar foot diabetic ulcer since his last visit however he does feel that the right foot and leg are swelling considerably over the past few days. We note a 4 pound weight gain since his last visit on Monday and he states is taking his diuretic as prescribed. 05/26/17. Seen by Dr. Nice. The patient does not report increased drainage associated with chronic right plantar foot diabetic ulcers since his last visit. His culture grew a somewhat resistant coag negative staph and he is not currently on antibiotics. 05/23/17. Seen by Dr. Nice. Staff reports some increased drainage on his dressings covering the chronic right plantar foot diabetic ulcer today. His blood sugar is again over 300 and he states he is eating rice and potatoes trying to cut back. He continues offload with his knee scooter as recommended and does not report pain or any other acute ulcer related issues today. 05/19/17. Seen by Dr. Nice. The patient does not report increased pain or drainage associated with chronic right plantar foot diabetic ulcer since his last visit. He is using his knee scooter as recommended and has had significant problems with heavy callus at the site due to a severe right first toe valgus deformity. He is now attending clinic twice weekly for debridement of the ulcer and complicating callous. 05/16/17. Seen by Dr. Nice. The patient does not report increased drainage or pain associated with chronic right plantar foot diabetic ulcer since his last visit. Of note, the patient's blood sugar as 271 today and his A1c was 9.8 in March. 05/12/17. Seen by Dr. Nice. The patient does not report increased pain or drainage associated with chronic right plantar foot diabetic ulcer since his last visit. He is using his knee scooter to help offload the site which is particularly important based on patient's morbid obesity coupled with his severe first MTPJ valgus deformity. 05/09/17. Seen by Dr. Nice. The patient does not report increased drainage or pain associated with the chronic right plantar foot diabetic ulcer since his last visit. He states his blood sugars continue to be above 200 consistently although are improving with compliance to a lower carbohydrate type diet. He was started on metformin about a month ago he complains of some intermittent upper extremity weakness since then and will be discussing this with his primary care provider. He is also awaiting his new diabetic shoes that are being adjusted to help accommodate for his severe right first toe valgus deformity. 05/02/17. Seen by Jean-Pierre Pinto PA-C. The patient reports stable drainage from his right 1st toe ulcer and blood sugars continue to be above goal. 3/6/18. Seen by Jean-Pierre Pinto PA-C. The patient reports his blood sugars have been above 150 this week. He does not report increased drainage from his right 1st toe diabetic ulcer. 04/18/17. Seen by Dr. Nice. The patient does not report increased drainage associated the chronic right first toe diabetic ulcers since his last visit. 04/11/17. Seen by Jean-Pierre Pinto PA-C. The patient reports he is developing more calloused areas on his feet and is concerned about new ulcers occurring. His chronic 1st toe diabetic ulcer has been stable. 04/04/17. Seen by Jean-Pierre Pinto PA-C. The patient reports he has not been able to get his blood sugars below 150. Drainage is reportedly decreased from his diabetic foot ulcer. 03/30/17. Seen by Jean-Pierre Pinto PA-C. The patient reports continued high blood sugars, all above 150. Drainage from his ulcer is not increased. 03/23/17. s Seen by Jean-Pierre Pinto PA-C. The patient reports blood sugars above 150 again this week. He is concerned that something must be going on with an infection as he believes his diet has not changed and thus his sugars should be lower. His wound has had stable drainage. 03/15/17. Seen by Jean-Pierre Pinto PA-C. The patient reports he has had some blood sugars above 150 this week. He reports no increase in drainage from his right 1st toe diabetic ulcer. 03/08/17. Seen by Dr. Nice. The patient was discharged from the hospital recently following treatment for cellulitis associated with the chronic right first toe diabetic ulcer. He grew MRSA from the wound culture and was treated with IV vancomycin and is now on Bactrim. He does not report pain nor significant drainage associated with the ulcer nor side effects from antibiotics. 02/23/17. Seen by Dr. Nice. The patient does not report increased drainage associated the chronic right first toe diabetic ulcers since his last visit. The patient also states that he is more active over the holidays and was unable to use his knee scooter at times while walking outside due to safety concerns. 02/08/17. Seen by Dr. Nice. The patient does not report increased drainage associated the chronic right first toe diabetic ulcers since his last visit. He states he is using his offloading shoe when at home and a knee scooter went out. 02/01/17. Seen by Dr. Nice. The patient does not report increasing pain or drainage associated with chronic right first toe diabetic ulcer since his last visit. 01/25/17. Seen by Dr. Nice. The patient does not report increasing pain or drainage associated with chronic right first toe diabetic ulcer since his last visit. 01/18/17. Seen by Dr. Nice. The patient does not report increasing pain or drainage associated with chronic right first toe diabetic ulcer since his last visit. Of note, the patient's blood sugar is over 260 again today and he admits that it's been significantly elevated for a number of weeks. He has an appointment with his primary care provider to discuss this next week. 01/11/17. Seen by Dr. Nice. The patient does not report increasing pain or drainage associated with chronic right first toe diabetic ulcer since his last visit. He states his blood sugars have been running high recently and he is going to follow-up with his primary care provider in the near future to address this. 01/04/17. Seen by Dr. Nice. The patient does not report increased drainage associated with chronic right first foot diabetic ulcers since his last visit. He's also been applying Kersal to the periulcer as recommended. 12/28/16. Seen by Dr. Nice. The patient does not report increased drainage associated with chronic right first foot diabetic ulcers since his last visit. 12/22/16. Seen by Dr. Nice. The patient does not report increased drainage associated with chronic right first foot diabetic ulcers since his last visit. He's not been applying Kersal to the periulcer callus and does not appear to be using his knee scooter at all times to offload the ulcer. 12/15/16. Seen by Jean-Pierre Pinto PA-C. The patient reports he continues to have blood sugars above 150 this week. He recently saw his PCP, they did not alter his diabetic care plan. His visit was a follow up for an ER visit for chest pain which was negative for IA and was thought to be epigastric in origin. His diabetic ulcer of the right foot has not had increased drainage. 12/06/16. Seen by Jean-Pierre Pinto PA-C. The patient reports that he has found his knee scooter and plans to start using it today. He also reports most of his blood sugars have been above 150. Drainage from his ulcer has been stable. 11/25/16. Seen by Dr. Nice. The patient does not report increased drainage associated with chronic right first foot diabetic ulcers since his last visit. He is now on antibiotics for wound infection and does not report adverse side effects. Of note, he is not yet using a knee scooter nor offloading shoe as we recommended last week. 11/18/16. Seen by Dr. Nice. The patient returns to our clinic and presents with recurrence of a right first MTPJ plantar diabetic ulcer. He states it started a couple weeks ago when he was attempting to remove overlying callus at home. He does not report significant drainage or pain associated with the ulcer and is not currently on antibiotics. He also states his recent A1c was 7.8. His blood sugar in clinic today is 250. 01/11/16 Seen by Jean-Pierre Pinto PA-C. The patient reports no drainage from his chronic right 1st MTPJ joint since his last dressing change. 01/04/16 Seen by Jean-Pierre Pinto PA-C. The patient reports minimal drainage from his chronic right 1st MTPJ ulcer. He has recently seen his PCP and his A1c was 7.7. His lower extremity edema, abnormal weight gain and kidney failure are stable with his diuretics recently being adjusted. 12/28/15. Seen by Dr. Nice. The patient does not report significant drainage associated with the chronic right 1st MTPJ diabetic ulcer since his last visit however he does complain of increasing shortness of breath, fatigue, and an 18lb weight gain over the past week despite taking his diuretics as recommended. He does not report chest pain or cough and his blood sugars remain relatively well controlled with most below 150. 12/16/15. Seen by Dr. Nice. The patient does not report significant drainage associated with the chronic right 1st MTPJ diabetic ulcer since his last visit. He's applying kerasal to the surrounding callus as recommended and offloading nearly at all times using his knee scooter. 12/07/15 Seen by Jean-Pierre Pinto PA-C. The patient reports compliance with his new offloading brace and shoe and has seen minimal drainage from his diabetic foot ulcer since his last visit. 11/30/15. Seen by Dr. Nice. The patient does not report significant drainage associated with the chronic right 1st MTPJ diabetic ulcer since his last visit and he's wearing a combined AFO / diabetic shoe system that he feels may be better offloading the ulcer. 11/23/15 Seen by Jean-Pierre Pinto PA-C. The patient reports that he is wearing his new diabetic shoes and inserts. He is continuing physical therapy for gait training and reports continued difficulty with stairs and occasional bouts of dizziness. He reports stable drainage from his chronic right foot diabetic ulcer. 11/16/15 Seen by Jean-Pierre Pinto PA-C. The patient reports stable drainage from his right foot diabetic ulcer. He also reports that his diabetic shoes and inserts are quite old and worn out. He is ambulating with is 4 wheeled walker and is working with PT for gait training. 11/09/15 Seen by Jean-Pierre Pinto PA-C. The patient reports that he is still using a 4 wheeled walker instead of a 4 footed walker. PT is working with him to improve his gait and balance. Drainage from his right foot ulcer has been stable. 11/02/15 Seen by Jean-Pierre Pinto PA-C. The patient reports no increase in drainage from his chronic diabetic foot ulcer. He has had multiple blood sugars above 150 this week. 10/29/15. Seen by Dr. Nice. The patient was recently discharged from [facility] following treatment of sepsis thought to possibly be related to his chronic right 1st MTPJ diabetic ulcer that grew Enterococcus just prior to his admission. He now feels generally weak , has lost 18 lbs following diuresis, and is residing at home where he's minimizing his weight bearing on the right foot. He does not report significant drainage from the ulcer nor pain and states his blood sugars remain mostly around 150. He also continues on levofloxacin and does not report adverse side effects. 10/14/15. Seen by Dr. Nice. The patient report persistent bloody drainage from the chronic right 1st MTPJ diabetic ulcer and he feels the callus has increased significantly since it was last debrided 2 week ago. He does not report fevers or feeling unwell and states his blood sugars are well controlled with most below 150. He's using his AFO when walking nearly at all times to facilitate offloading the significant right 1st MTPJ valgus deformity. 09/24/15 Seen by Jean-Pierre Pinto PA-C. The patient reports that he is no ran out of lasix due to a mix up at the pharmacy and unavailability of his strength/dose of tablets. He continues trying to offload his ulcer with his wheeled walker and notes stable ulcer drainage. 09/17/15. Seen by Dr. Nice. The patient continues to report some bloody drainage from the chronic right 1st MTPJ diabetic ulcer and he's started reducing his activity and continues to use his knee scooter at home to offload the foot. 09/10/15. Seen by Dr. Nice. The patient states he was more active over the past week and notices increased bloody drainage associated with chronic right first MTPJ diabetic foot ulcer. He continues to wear his AFO and states his blood sugars are mostly below 150. 09/03/15. Seen by Dr. Nice. The patient does not report significant drainage associated with the chronic right first MTPJ diabetic ulcer over the past week. He does feel that the callus smaller than on previous visits and is wearing his AFO at all times. Of note, he 's now in doxycycline to treat the recent coag negative Staph cultured from the ulcer at his last visit. 08/27/[address] Nice. The patient reports increase bloody drainage associated with the chronic right foot 1st MTPJ diabetic ulcer and he feels his activity has increased due to physical therapy and increased mobility over the past week. He does not report pain at the ulcer site, fevers, or feeling unwell in general. 08/20/[address] Nice. The patient does not report significant drainage associated with the chronic right foot 1st MTPJ diabetic ulcer over the past week and he's using a knee scooter as much as possible when mobilizing to offload the foot. His blood sugars also remain relatively well controlled with most below 150. 08/13/[address] Nice. The patient does not report significant drainage associated with the chronic right foot diabetic ulcer over the past week and he's offloading using a knee scooter as recommended. His blood sugars remain relatively well controlled with most below 150. 08/06/[address] Nice. The patient reports recurrence of some drainage from the chronic right foot diabetic ulcer over the past few days and states he's been more active with physical therapy. His blood sugars remain well controlled with most below 150 and he's wearing his AFO when away from the house and using a knee scooter most of the time while at home to facilitate offloading. He's also applying Kerasal to the callus in the periwound area as recommended. 07/23/[address] Nice. The patient does not report drainage from the chronic right 1st MTPJ diabetic ulcer over the past week and he's using his new AFO and knee scooter to offload the foot. 07/16/[address] Nice. The patient does not report pain or drainage from the chronic right 1st MTPJ diabetic ulcer and he's wearing his newer AFO while offloading with a knee scooter most of the time. 07/09/[address] Nice. The patient does not report drainage or pain associated with his chronic right foot 1st MTPJ diabetic ulcer and he's been offloading by using a knee scooter when mobilizing. His quality assurance nurse is present today as well to discuss possible adjustments to his AFO with the goal of reducing callus formation that's in part caused by his significant right 1st toe valgus deformity. He also states his blood sugars remain well controlled below 150 consistently. 07/03/[address] Nice. The patient does not report significant drainage from the chronic right foot diabetic ulcer and he's offloading by using his knee scooter. His blood sugars also remain relatively well controlled around 150 consistently. 06/26/[address] Nice. The patient report some continued bloody drainage from the chronic right 1st MTPJ diabetic ulcer however he does not report associated pain , fevers or feeling unwell. His blood sugars remain consistently below 150 and he's using his walker and knee scooter for offloading as recommended. He's also been actively working with his quality assurance nurse in hopes of better offloading the ulcer and address his significant callus formation and left 1st MTPJ valgus deformity. 06/19/[address] Nice. The patient does not report pain associated with his chronic right 1st MTPJ diabetic ulcer however he states some bloody drainage persists on the dressings. He does not report fevers or feeling unwell and states his blood sugars are well controlled below 150 consistently and he's using a knee scooter and walker to offload the ulcer when mobilizing. He also does not report pain or drainage associated with the left 2nd toe wound. 06/11/[address] Nice. The patient was recently discharged from [facility] following a fall at home that resulted in a broken rib. Regarding his chronic right 1st MTPJ diabetic ulcer he does not report significant drainage and has been offloading through bed rest and using a knee scooter while at home. His blood sugars also remain well controlled with most below 150. He also reports a new wound on the dorsum of the left 2nd toe that he believes occurred during his fall. He does not report associated pain or significant drainage. 05/28/[address] Nice. The patient reports some increased bloody drainage from the chronic right 1st MTPJ diabetic foot ulcer over the weekend associated with a new 'soft' area along the distal margin. He's been more active the past the past few days but states he's using his knee scooter to offload at all times. His blood sugars also remain well controlled with most around 120 and he's no longer on antibiotics. He also continues to wear his old AFO but states there was a recent adjustment of a cut out lined with 'soft' plastic in the area of the ulcer. 05/21/[address] Nice. The patient report less drainage from the chronic right foot 1st MTPJ diabetic ulcer over the past week. He's completed his course of doxycycline and he continues on fluconazole for the recent Alma Delia positive wound culture. He's also reverted back to using his previous AFO while his newer one is adjusted to try to address the recent significant increase in callus formation that's occurred. His blood sugars also remain well controlled under 150 consistently and his recent episodes of hypoglycemia has resolved with an adjustment of his insulin regimen. 05/14/[address] Nice. The patient reports less drainage on the dressings covering the chronic right 1st MTPJ diabetic ulcer since starting doxycycline for a coag negative Staph wound culture along with fluconazole for the alma delia positive culture. His blood sugars remain well controlled below 120 and his insulin has been decreased due to the recent episodes of hypoglycemia. His diuretic has also been decreased as he's lost considerable water weight over the past month. 05/07/[address] Nice. The patient continues to report modest bloody drainage on the dressing covering the chronic right 1st MTPJ diabetic ulcer and he continues to limit his walking but has not been using a knee scooter or walker around the house to facilitate offloading. His blood sugars remain well controlled mostly below 150. 04/30/[address] Nice. The patient continues to report bloody drainage on his right foot diabetic ulcer dressing and he's feeling a bit unwell in general without reporting specific symptoms. He also continues to have intermittent low blood sugars in the 50-60' s and has not discussed this issue with his PCP recently. He's wearing his AFO daily but admits to having difficulty using his walker at all times due to limited space in his new apartment. 04/27/15 Seen by Jean-Pierre Pinto PA-C. The patient reports nonspecific malaise for the past few days. Last night, he reports feeling to tired, weak and shaky to watch TV and went to bed very early. His malaise has been increasing over the past 1-2 weeks and he has frequently been monitoring his blood sugar. His blood sugars are lower than normal lately but never below 100. He has been reducing his insulin dosing in the past 2 weeks to compensate for the lower numbers. He continues to loose weight while continuing to take Lasix and metolazone. 04/23/[address] Nice. The staff and patient continue to report at least moderate serosanquinous drainage from the chronic right 1st MTPJ diabetic ulcer. His blood sugars have been well controlled over the past week with most below 150. He does report being more active than usual while he's been moving to his new home and he also states he continues to loose weight following a recent increase in his diruetics. His wound culture from the last visit reported heavy Diptheroids and he's not currently on antibiotics. 04/20/15 Seen by Jean-Pierre Pinto PA-C. The patient reports that he has moved house and has been on his feet much more so as a consequence. He reports increased drainage from his right plantar foot diabetic ulcer. In addition he believes he struck it against a hard surface when moving. He has had no significant pain with weightbearing but is insensate in this area. 04/15/[address] Nice. The patient reports continued weight loss, and decreasing leg swelling, since starting metolazone totaling about 20 lbs. He also feels the chronic right 1st MTPJ diabetic ulcer has been draining increasing amounts of sanguinous fluid. His blood sugars remain well controlled with most below 120 and he does not report fever or feeling unwell. 03/25/[address] Nice. The patient states he walked a considerable amount yesterday and now reports some bleeding from the chronic right 1st MTPJ diabetic foot ulcer. He also continues to report increased weight gain and now some shortness of breath when walking short distances. He has a low grade fever today but does not report a cough or feeling unwell otherwise. 03/11/2015 Seen by Jean-Pierre Pinto PA-C. The patient's weight has increased 10 lbs in the past week. He reports increased shortness of breath with exertion. He denies chest pain, jaw, neck, shoulder pain or shortness of breath at rest. He has been compliant with his diuretics. His ulcer drainage has been stable. 03/04/2015 Seen by Jean-Pierre Pinto PA-C. The patient is wearing his newly adjusted AFO and reports an increase in walking since last visit. He was unaware that his temperature was elevated and reports no URI symptoms such as cough or sore throat. 02/24/2015 Seen by Jean-Pierre Pinto PA-C. The patient believes his ulcer has now been draining more despite trying to offload the ulcer. 02/11/[address] Nice. The patient reports less drainage from the chronic right 1st toe diabetic ulcer and he's still waiting for approval for his new AFO. 02/04/[address] Nice. The patient feels the drainage from the right 1st MTPJ ulcer has decreased since last week and he's scheduled to see Dr. Solitario tomorrow to review his foot deformity and recurrent callus formation at the site of the ulcer. 01/30/[address] Nice. The patient returns to clinic and reports recurrence of the recently healed right 1st MTPJ diabetic foot ulcer with new moderate drainage and significant callus formation. He's not yet re-established with Dr. Solitario, podiatry, due to insurance issues and is awaiting approval for an adjustment for his AFO. His blood sugars remain controlled below 150 mostly and he does not report pain in the foot or fevers. 01/12/[address] Nice. The patient does not report drainage from the right 1st toe MTPJ ulcer and he's scheduled to have his new AFO fitted this week. 01/05/[address] Nice. The patient does not report drainage associated with the right 1st MTPJ diabetic foot ulcer however he states he has had some intermittent, very brief 'shooting' pain at the site of the ulcer the past few days. His blood sugars also remain between 120 and 150 mostly. 12/29/[address] Nice. The patient does not report drainage from the chronic right 1st MTPJ diabetic foot ulcer and he offloads using a walker and surgical shoe at all times except for when he wears a slipper around his small apartment. 12/22/[address] Nice. The patient does not report significant drainage from the right 1st MTPJ diabetic foot ulcer and he states his blood sugars are still in the 150 range with some over 180. 12/10/[address] Nice. The patient does not report significant drainage from the right 1st MTPJ diabetic foot ulcer. 12/04/[address] Nice. The patient does not report any drainage from the chronic right 1st MTPJ diabetic foot ulcer and he's still waiting for insurance approval for a custom, articulating AFO. His blood sugars also remain relatively well controlled below 150 consistently. He also continues to apply Kerasal to the associated callus daily. 11/20/[address] Nice. The patient's been feeling unwell the past week and feels he may have lost as much as 10 lbs due to poor oral intake. Otherwise he does not report any new problems regarding his right 1st MTPJ plantar diabetic ulcer. 11/07/[address] Nice. The patient reports only scant drainage from the right plantar diabetic foot ulcer. He's been offloading as recommending with a walker and is awaiting a approval for an articulating AFO. His blood sugars remain mostly well controlled below 150. 10/31/14 Seen by Jean-Pierre Pinto PA-C. The patient feels he has reached another plateau with regard to his wound healing. His right plantar diabetic ulcer continues to drain and has not improved recently. He is wearing his brace and reports compliance with offloading. 10/21/[address] Nice. The patient reports only scant drainage from his right 1st plantar surface MTPJ diabetic foot ulcer. He continues to offload with a frame walker and his blood sugars are moderately well controlled with most below 150. 10/14/[address] Nice. The patient does not report significant drainage from the right 1st plantar MTPJ ulcer. Of note, when discussing his blood sugars he mentions he's on both 70/30 insulin as well as Lantus and he frequently has blood sugars in the 150-200 range. 10/07/[address] Nice. The patient reports some modest drainage from the right 1st MTPJ plantar ulcer but no pain, erythema, or swelling. His blood sugars are mostly below 150 and he offloads with his AFO. 09/30/14 Seen by Jean-Pierre Pinto PA-C. The patient reports continued compliance with his AFO and he is trying to offload. He is scheduled now with PT for gait training and knee strengthening. He reports his knee is still sore at times and he feels unstable at times when using his offloading devices and AFO. 09/23/[address] Nice. The patient reports only minimal drainage from the right plantar 1st MTPJ ulcer. 09/16/14 Seen by Jean-Pierre Pinto PA-C. The patient continues to use his AFO, offloading shoe, knee scooter and frame walker to offload his wound. 09/09/14 Seen by Jean-Pierre Pinto PA-C. The patient has been wearing his AFO and offloading shoe together, with the added padding as designed by Sahra BOYD of [facility]. He reports that he feels unsteady and that his knee has felt strained and he discontinued using the brace as he is concerned that he has, or will, re-injure his right knee. He also is having difficulty using his knee scooter with the brace. One year ago , while attempting to offload his foot he did injure his knee and required physical therapy to recover. 08/19/14 Seen by Jean-Pierre Pinto PA-C. The patient's weight is down 10 lbs from his previous visit. His twice daily naproxen has been discontinued by his PCP in an effort to reduce his lower extremity edema. 08/15/14 Seen by Jean-Pierre Pinto PA-C. The patient continues to have weight fluctuations and large amounts of weight gain in short periods of time despite increased diuretic usage. 08/04/14 Seen by Jean-Pierre Pinto PA-C. The patient has been taking his Levaquin and again reports to the clinic with a low grade fever. He reports nearly daily application of Kerasal and his weight and edema have been stable on a higher dose of diuretics. Blood sugars remain stable on his current diabetic medications. 07/21/14 Seen by Jean-Pierre Pinto PA-C. The patient does not report fever, chills or URI symptoms. His wound drainage has been stable. 07/16/[address] Nice. The patient reports persistent but minimal drainage from the right foot plantar ulcer and continues to offload with a walker at all times. His blood sugar are mostly below 150 with a few around 170 the past few days. 07/01/14 The patient reports that he has gained 8lbs in 8 days. Denies SOB. Does not report fever or chills. 06/23/[address] Nice. The patient continues to offload with a knee scooter and walker at all times. He does not report significant drainage from the right plantar foot ulcer. 06/20/[address] Nice. The patient has been offloading his right foot ulcer with a walker and reports less drainage over the past 2 days. He's now off of antibiotics and his blood sugars remain well controlled below 150. 06/11/[address] Nice. The patient reports persistent drainage from the right foot plantar 1st MTPJ ulcer and he completed his course of doxycycline which was started for a MRSA positive culture from the ulcer site. His blood sugars have also been a bit elevated above 150 recently. He does not report fever or chills however. 06/04/14 The patient reports difficulty in offloading his wound due to inability to use crutches due to poor balance. He find the wheelchair difficult to use and his knee scooter is not rated for his weight. He denies fever, chills or URI symptoms. 05/28/14 The patient's been attempting to offload with a knee scooter but is concerned it may not be appropriate or stable based on his weight. He does not report increased drainage from he right plantar 1st MTPJ ulcer and his blood sugars remain well controlled below 120. 05/21/14 The patient reports only minimal sanguinous drainage from his right foot plantar ulcer and has been offloading it by minimizing his walking. He's also completed a course of doxycycline that was given for a coag negative staph wound culture from the ulcer. He states his blood sugars are consistently below 120 and does not report hypoglycemia. 05/13/14 The patient reports minimal drainage from his right foot plantar ulcer. His recent wound culture from the site returned coag negative Staph and Diptheroids. 05/02/14 The patient reports less drainage from the right plantar foot ulcer and continues to off loading by minimizing walking and wearing a post-op shoe. 04/29/14 The patient continues to wear his surgical boot with the cutout for his right foot plantar diabetic ulcer. He reports no increase in drainage. 04/25/14 The patient reports minimal bloody drainage on the right foot plantar ulcer dressing that was placed yesterday. He does not report any drainage from the previously healed lateral foot ulcer. His edema in the right leg persists despite wearing compression stockings daily and his blood sugars remain well controlled below 120 with his last A1c approx 2 months ago at 7.4. 04/22/14 The patient reports no increase in drainage from his wounds today. He has been faithfully wearing his orthopedic boot with the cut-out area around his 5th MT ulcer. 04/15/14 The patient reports no increase in drainage from his wounds today. He reminds me that a TCC was the cause of his 5th MT ulcer and he is not excited about trying a TCC again. He is interested in HBOT if it will be beneficial to his wounds. 04/09/14 The patient reports increased drainage from his right 5th MT ulcer and feels his surgical boot he's been wearing for off loading may have caused pressure to the area. His blood sugars have improved and he also reports a 5 lb weight loss after doubling his dose of lasix over the past week. Of note, he did not liaise with his PCP prior to doing this. 04/04/14 The patient states that he was walking a bit more than usual yesterday but notes some sanguinous drainage on his plantar 1st MTPJ dressing for the past few days. He's also put on 7 lbs in the past week and feels his legs are more swollen than usual. He does not report chest pain, shortness of breath, or orthopnea. His blood sugars are also up a bit around 180. He's compliant with both his diabetes regimen and his diuretic therapy. 03/28/14 The patient reports no increased drainage or other complications from his right foot diabetic ulcers. 03/21/14 The patient reports minimal drainage from his right foot diabetic ulcers. He continues to minimally weight bear using a surgical boot and a walker. 03/14/14 The patient does not report increased drainage or other new issues regarding his right 5th MTPJ and right 1st MTPJ plantar ulcers. His blood sugars remain more elevated than usual with some between 150 and 180. 03/07/14 The patient reports no fever or increased right foot wound pain or drainage. 02/28/14 The patient reports that his blood sugar this morning is a bit elevated around 160 but has mostly been below 140 over the past few days. He's been off antibiotics for 3 days now and reports modest drainage from the right 5th MT ulcer while dressing changes are being done every two days. 02/24/14 The patient does not report any new issues regarding his right foot ulcers including increased drainage, fever, or chills. He completed his course of doxycycline yesterday. 02/17/14 The patient reports moderate yellow drainage from the right foot 5th MTPJ ulcer. He's completed a course of doxycycline and does not report fever or chills but states his blood sugars remain higher then normal in the 170's. His wound culture was positive for Enterobacter and his ESR was elevated at 41 and CRP at 2.7. 02/06/14 The patient does not report increased drainage from the right 5th MTPJ ulcer nor does he report fever or pain. He continues to off load with a walker and minimizing walking. He continues on doxycycline which was started empirically at his last visit and his culture has since grown Enterobacter which should be susceptible to doxy based on sensitivities. His xray of the foot was not concerning for osteomyelitis however his ESR and CRP are both moderately elevated. He also feels his legs are more swollen than usual and he continues to take his lasix as scheduled. 02/03/14 The patient does not report fever, chills, or pain in the right foot however when the TCC was removed today he's noted to have a sizable increase in the diameter and depth of what was a small 5th MTPJ ulcer. 01/14/14 The patient reports no new problems regarding is right diabetic foot ulcer. 12/31/13 The patient reports minimal serous drainage from his right 5th MTPJ ulcer and states he continues to off load his foot as much as possible. He does not report pain or drainage from the site of his right 1st MTPJ ulcer. 12/19/13 The patient tolerated with TCC without any complaints but there appears to be a small area of erythema over the right 5th MTPJ. He notes his blood sugars are typically below 120 and his A1c last week was 7.4. 12/13/13 The patient has no complaints regarding his TCC nor his plantar ulcer. 12/11/13 The patient returns for placement of a TCC today. He does not report any new problems regarding is plantar ulcer. 12/03/13 The patient states his plantar ulcer drainage is stable and he's continued to not use a cut-out foam doughnut over the ulcer. 11/26/13 The patient has kept the foam dressing in place from the last visit and has not used a cut-out foam dressing which we felt caused some deterioration of the foot ulcer. He has some mild drainage but no pain. 11/22/13 The patient returns for review of his plantar ulcer and callus that seems to be deteriorating despite an adjustment to his boot and off loading measures. The patient reports his callus accumulation is in spite of daily kerasal applications. Patient reports a new small wound on the left second toe. Josue states that it might be related to the brace. Patient had brace modified to help off load. 11/06/13 Josue states he was able to schedule with the prosthetic doctor tomorrow at noon. He reports no new problems or concerns. He also says that he is done with physical therapy since yesterday as insurance will not cover it any longer. 10/31/13 The patient reports he received his dressing supplies. Dressings changes are going well and no new problems are reported. He saw his nematologist, Dr. Solitario, on Monday for a check up and had and x-ray of the foot. 10/24/13 Josue reports he has been staying off of his feet as much as possible. He has been changing the dressing as ordered and states there has been just a small amount of drainage. He recently ran out of his dressings and will need more ordered or the balance sent home with him. 10/17/13 Patient states he has no new problems or concerns. He did have a small increase in drainage the other day but he had walked more than normal the day before. 10/09/13 Josue states he has no new issues. Dressing changes are going well. 10/02/13 Josue states there have been no new issues with dressing changes. They have been changed once since his last visit. No complaints of pain with the wound. 09/20/13 Josue was discharged from wound care September 05. States that he has been using pumice stone on callus area where had previous wound and may have been too aggressive. Also has been on feet more and having increase in lower extremity edema. Continues to wear the tetragrip F he had received in the clinic 6 hours per day but has not ordered any yet. 09/27/13 Patient states that there have been no issues with using the tetra food sanitarian. Asking about getting compression stockings from drug store for continued use. 09/05/13 Patient states he has set up physical therapy for the problems with his knee. He starts these treatments on 09/11. There has been no new issues with his wound and he changes the dressings about every two days. He reports little to no drainage. 08/06/13 States no new problems with wound area. Been using kerosol daily. 08/19/13 Patient states he twisted his knee a week ago, and it is effecting his walk slightly. He also complains of more edema in his legs, and has an appointment with his PCP tomorrow regarding the issue. No new problems or concerns with his wound. No new problems or concerns. Patient states he changed the dressing a few times this last week. Saw Dr. Solitario this past week for check up with no change o his management. 07/26/13 The patient has had new brace for one week and so far it is working out well. No other complaints at this time. 07/18/13 Patient got brace for foot and leg yesterday. No problems or concerns. 07/11/13 No problems or concerns. Changed dressing twice since last visit 07/04/13- Pt went to his PCP and his lasix were increased from 20mg to 40mg. He states his edema has decreased since then. Pt's diabetic foot brace (decreases lateral movement to reduce pressure on the sides of his feet) will arrive in about another week. 06/20/13- Pt reports increased edema in his feet for the last week, he has been walking more, but also sitting with his feet down more. With the increase in exercise he states his back has been hurting. On Sunday 06/18 pt went to [facility],and had his ankle brace fitting. 05/31/[address] Green this am. Changed dressing twice this week. Saw quality assurance nurse (in [place]) on Monday. Considering ankle brace 05/24/13 states started walking program at 5 minutes at a time and taking the bus to clinic apt. 11/08/12 Pt is changing dressing every two days. Is concerned about the edema to the left leg that had the cellulitis. States it is warm. 11/15/12 patient has been having more nerve pain. He has been changing his dressing either every day or every other day. 11/22/12- Patient continues to change dressing about every day. No problems noted. Patient changing dressing about q o day. Thinks wound is less deep. 12/07/12 Pt only changed dressing twice since last visit. No concerns or problems. 12/18/12 When cleaning wound was able to aspirate large purlent sero-sang fluid from site. Pt states he feels it was doing better. 12/24/12 Decreased drainage and pt states he feels the wound is doing well. 12/31 Pt states he has had decreased draiange from wound. Pt denies pain. 01/07/13Pt states the kerasol didn't really do much, but admits he was only applying it every other day and is not sure what his expectations should be. He believes he may have bumped a toe on the left foot and has been concerned about some bruising there but admits it is getting better. Still does not have his new shoes and says he is exploring other options like disability. 01/21/13 feeling well since last visit. feels he may have bumped third toe so wants it to be seen. Level 2- 3 neuropathic pain in right foot 02/27/12 Patient changing bandaid on foot and applying kerasol every three days. Patient got new PCP and saw him yesterday. Patient states things are going well with the wound. 03/12/[address] Green for edema and will see him tomorrow for follow up.03/25/13 states has drainage from bottom of foot. concerned about new wounds Sates he changes dressing every 2 days. Changed this AM as it came off. Using Ca alginate and foam. States no drainage last night 04/19/13 changes dressing every 2-3 days. no problem. Has appt with Dr. Solitario 04/30/13 and new shoes have arrived. To be fitted next week 04/26/13 Is wearing new shoes and states they are working well.Changed dressing twice this week [address] Solitario last week. will see again in [address] Green started antibiotic for sinus infection States sinuses not a lot better. Has started Lakshmi D, helping some. States wound about same. Changing dressing 2 x this week as dressing came off. States added collagen one time. Past Medical History This information was obtained from the patient Patient has a medical history of: Left lower extremity cellulitis - 10/15/2012 Diabetic foot ulcer - 09/27/2013 (Hernandez grade 2; right plantar surface; Hernandez grade III (Enterobacter positive wound culture 02/03/14), lateral right 5th MTPJ originally dx 12/24/13; MRSA positive culture 06/04/14 ) Chronic venous hypertension Type II Diabetes Hypertension Morbid Obesity Kidney Stones Hx MRSA Diabetic neuropathy Hallux valgus (right 1st toe) UTI (hospital admit) Cellulitis of legs (June and September 2012- hospital admit) Cataract surgery (10/13/15) Diabetic Neuropathy Complaints and Symptoms This information was obtained from the patient Patient complains of: General Notes: I have reviewed and concur with the Review of Systems and Past Family Social History documents completed by the clinician, I have reviewed and concur with the Wound Assessment document completed by the clinician Cardiovascular (Central/Peripheral): Lower extremity (leg) swelling Integumentary (Hair/Skin/Nails): Open Sore Musculoskeletal: Deformities, Muscle Weakness Neurological: Abnormal Gait, Loss of Protective Sensation Prior Wound History: Bleeding, Drainage Patient denies complaints or symptoms related to: Cardiovascular (Central): Irregular heart beat Cardiovascular (Central/Peripheral): Lower extremity (leg) resting pain Constitutional Symptoms (General Health): Chills, Fever, Marked Weight Change Ear/Nose/Mouth/Throat: Hearing Loss / Aid Gastrointestinal (GI): Nausea / Vomiting Hematologic/Lymphatic: Bleeding / Clotting Disorders, Bleeding Tendency Musculoskeletal: Assistive Devices Prior Wound History: Erythema, Malodor, Pain Psychiatric: Memory Loss Respiratory: Oxygen Use, Shortness of Breath OBJECTIVE Constitutional BP elevated; Low grade fever; Alert and in no distress. Well developed. Alert. Clean appearing.. Height/Length: 71 in (180.34 cm), Weight: 350.7 lbs (159.41 kgs), BMI: 48.9, Temperature: 99.3 ?F (37.39 ?C), Pulse: 80 bpm, Respiratory Rate: 18 breaths/min , Blood Pressure: 131/64 mmHg, Capillary Blood Glucose: 187 mg/dl, Pulse Oximetry: 97 %. Vital Signs Notes: Glucose per patient. Ears, Nose, Mouth, and Throat: No clinically significant hearing loss on informal examination. Respiratory: No respiratory distress. Even respirations and without use of accessory muscles.. Gastrointestinal (GI): Obese. Nondistended.. 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 Integumentary (Hair, Skin) No periwound erythema, warmth, or significant drainage. No periwound rashes appreciated or noted otherwise.. Refer to appropriate clinician wound documentation for this visit; right foot ulcer extends to subcut with base partially covered with pink granulation, remainder fibrin and slough. Significant amount of callus and maceration in the periulcer area. Wound #6 Right, Plantar Foot is a chronic Hernandez Grade 2 Diabetic Ulcer and has received a status of Not Healed. Subsequent wound encounter measurements are 1.2cm length x 0.5cm width x 0.3cm depth, with an area of 0.6 sq cm and a volume of 0.18 cubic cm. No tunneling has been noted. No sinus tract has been noted. No undermining has been noted. There is a large amount of sero-sanguineous drainage noted which has no odor. The patient reports a wound pain of level 0/10. The wound margin is callus. Wound bed has Yes epithelialization, No eschar, Yes slough, Yes bright red, pink, firm granulation. The periwound skin color is normal. The periwound skin exhibited: Callus, Maceration. The periwound skin did not exhibit: Brawny Induration, Edema, Excoriation, Induration, Crepitus, Fluctuance, Friable, Rash, Dry/Scaly, Moist. The temperature of the periwound skin is WNL. Periwound skin does not exhibit signs or symptoms of infection. Local Pulse is Palpable. Wound #7 Right Great Toe is an acute Hernandez Grade 1 Diabetic Ulcer and has received a status of Not Healed. Subsequent wound encounter measurements are 0.4cm length x 0.1cm width x 0.1cm depth, with an area of 0.04 sq cm and a volume of 0.004 cubic cm. No tunneling has been noted. No sinus tract has been noted. No undermining has been noted. There was no drainage noted. The patient reports a wound pain of level 0/10. The wound margin is attached. Wound bed has Yes epithelialization, No eschar, Yes slough, No granulation. The periwound skin texture is normal. The periwound skin moisture is normal. The periwound skin color is normal. The temperature of the periwound skin is WNL. Periwound skin does not exhibit signs or symptoms of infection. Local Pulse is Doppler. General Notes: Dried exudate covering wound. Neurological: Cranial nerves grossly intact with symmetric function normal by informal observation.. ASSESSMENT Active Problems ICD-10 (Encounter Diagnosis) E11.621 - Type 2 diabetes mellitus with foot ulcer (Encounter Diagnosis) L97.512 - Non-pressure chronic ulcer of other part of right foot with fat layer exposed (Encounter Diagnosis) B95.7 - Other staphylococcus as the cause of diseases classified elsewhere PROCEDURES Wound #6 Wound #6 (Diabetic Ulcer) is located on the right, plantar foot. A skin/ subcutaneous tissue level surgical debridement with a total area debrided of 0.9 sq cm was performed by Stephen Nice MD. Subcutaneous was removed along with devitalized tissue: callus and exudate. The following instrument(s) were used: curette, forceps, and scissors. Pain control was achieved using 4% Lido. A time out was conducted prior to the start of the procedure. A moderate amount of bleeding was controlled with silver nitrate. The procedure was tolerated well with a pain level of 0 throughout and a pain level of 0 following the procedure. Post Debridement Measurements: 1.5cm length x 0.6cm width x 0.3cm depth; with an area of 0.9 sq cm and a volume of 0.27 cubic cm; Additional Information Muscle fascia or bone removed and sent to pathology?: No PLAN Wound Orders: Wound #6 Right, Plantar Foot Anesthetic Topical Xylocaine to wound bed. - In clinic only. Cleanser Cleanse Wound: - Normal saline and gauze. May Shower. - Do not get wound wet with tap water. Use cast protector when showering. Topical Treatments Antibiotic/Antimicrobial Ointment/Cream. - Iodosorb to wound base. Dressings Cover and secure with: - Foam and hypafix tape. Change Dressing: - Every other day. Wound #7 Right Great Toe Anesthetic Topical Xylocaine to wound bed. - In clinic only. Cleanser Cleanse Wound: - Normal saline and gauze. May Shower. - Do not get wound wet with tap water. Use cast protector when showering. Dressings Cover and secure with: - Bandaid. Change Dressing: - Every other day. Additional Orders: Off-Loading Keep weight off: - Right foot as much as possible. Use Knee scooter when able. Use/Wear when Walking: - Offloading shoe. Compression/Edema Control Elevation of leg(s) above the level of the heart when sitting. Avoid prolonged standing in one place. - Please avoid standing or walking for long periods of time. Knee-high gradient compression stockings. - Tetragrip F stockings to both legs. On in the morning and off at night. Follow-Up Appointments Return Appointment: - - Tuesdays and Fridays for callus removal. Other information: If you develop fever, chills, increased pain, drainage, redness or swelling please call our office. If after hours, respond to the ER. Should you experience any significant changes in your wound(s) or have any questions regarding your home care instructions please contact the wound center @ [phone]. If after hours, contact your primary care physician or go to the hospital emergency room. Scribing Attestation I attest, as the nurse, that I scribed these orders for the physician. Medications prescribed: doxycycline hyclate - oral 100 mg capsule twice daily for 7 days for infected ulcer starting 09/05/2017 General Notes: Please start antibiotics as soon as possible. I've reviewed the clinician's documentation and agree with the evaluation and plan as written. In addition, the patient's ulcer demonstrates evidence of non-viable devitalized tissue which will continue to benefit from sharp debridement to help promote granulation and expedite healing. Also, due to the significant increase in drainage and maceration I'm going to start treating the coag negative Staph culture with doxycycline. Electronic Signature(s) Signed By: Date: Stephen Nice MD 09/06/2017 07:05:31 Entered By: Stephen Nice on 09/05/2017 13:07:53
== END ==
PROVIDERS: PCP Family Medicine; Visit Provider Internal Medicine
DX: E11.621 Type 2 diabetes mellitus with foot ulcer (principal); L97.512 Non-pressure chronic ulcer of other part of right foot with fat layer exposed; B95.7 Other staphylococcus as the cause of diseases classified elsewhere
CPT/HCPCS: 11042

== ENCOUNTER → 2017-09-08 10:12 | Outpatient (CLI) | payer MEDICARE, OTHER, SELFPAY ==
--- NOTE | 2017-09-08 | OV.WND_ITS ---
Progress Note Details Patient Name: Josue Mesa Patient Number: [id number] PatientPatientDate: 09/08/2017 Clinician: Yajaira Alvarez Physician / Lock Technician: Stephen Nice SUBJECTIVE Chief Complaint This information was obtained from the patient Diabetic ulcer to right plantar foot and great toe. Allergies Augmentin (Severity: Mild, Reaction: nausea) HPI This information was obtained from the patient 09/08/17. Seen by Dr. Nice. The patient's now on doxycycline for the recent coag negative Staph culture taken from the chronic right 1st MTPJ diabetic ulcer. He does not report adverse side effects nor increased drainage or pain associated with the ulcer. 09/05/17. Seen by Dr. Nice. The patient does not report increased drainage associated with the chronic right 1st MTPJ nor right 1st toe dorsal diabetic ulcers since his last visit however the nurse reports increased bloody drainage on the dressing and increased maceration and callus along the distal margin of the ulcer. His recent wound culture grew coag negative Staph and he's not currently on antibiotics. 09/01/17. Seen by Dr. Nice. The patient does not report increased drainage associated with the chronic right 1st MTPJ nor right 1st toe dorsal diabetic ulcers since his last visit. 08/29/17. Seen by Dr. Nice. The patient does not report increased drainage associated with the chronic right 1st MTPJ diabetic ulcer since his last visit. He does complain of progressive upper extremity tremors that are most noticeable in the morning and evening and may occur after he takes his metformin. He does not report low blood sugars and he'll bee seeing his PCP today to discuss this. 08/25/17. Seen by Dr. Nice. The patient reports being more active and on a boat over the holiday which was no conducive to using his knee scooter. He feels the right 1st MTPJ ulcer has deteriorated and he has a new ulcer over the dorsum of the right 1st toe now. 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 08/22/17. Seen by Dr. Nice. The patient was [facility] and they provided a new orthotic insert to help better offload the chronic right 1st MTPJ diabetic ulcer while he's wearing his surgical, forefoot offloading show. He does not report increased drainage or pain associated with the ulcer and is using a knee scooter also to help offload. He has a severe valgus deformity which results in heavy callus formation and has required twice weekly debridements which has been effective in gradually promoting the ulcer to heal. He's also been applying topical gentamicin to the ulcer base to treat the recent coag negative Staph culture that was taken due to increased drainage. 08/18/17. Seen by Dr. Nice. The patient's wound culture taken from the chronic right foot diabetic ulcer at his last visit grew an intermediately resistant coag negative Staph and his dressing change and application of gentamicin is taking place only every 2-3 days. He does not report pain in the foot but staff report his dressing as being 'bloody' today. 08/15/17. Seen by Dr. Nice. The patient reports what may be increased drainage on his right foot diabetic ulcer dressings as mentioned by his wound care rn in assisted living. He's using a knee scooter as recommended and does not report pain in the foot. He's also asking when it will be appropriate to have his right foot orthotic adjusted in his diabetic shoe although he's currently wearing a forefoot offloading shoe at all times. 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 08/11/17. Seen by Jean-Pierre Pinto PA-C. The patient reports stable drainage from his right foot diabetic ulcer. Again his blood sugars have been above 150 since his last visit. 08/08/17. Seen by Jean-Pierre Pinto PA-C. The patient reports no increase in drainage from his right foot diabetic ulcer. His blood sugars this week have reportedly been mostly above 150. 08/04/17. Seen by Dr. Nice. The patient does not report increased drainage associated with the chronic right plantar foot diabetic ulcer since his last visit and he's offloading appropriately as recommended. He also was seen by Dr. Solitario, podiatry, who discussed possible surgical options to address the severe right 1st toe valgus deformity that's complicating the ulcer and contributing to heavy periculcer callus formation however there's no plan of intervention at this time. 08/01/17. Seen by Dr. Nice. The patient does not report increased drainage associated with the chronic right plantar foot diabetic ulcer since his last visit and he's offloading appropriately as recommended. 07/28/17. Seen by Dr. Nice. The patient does not report increased drainage associated with the chronic right plantar foot diabetic ulcer since his last visit and he's offloading appropriately as recommended. We've increased his visits to twice weekly due to the very heavy callus formation that's contributing to the refractory nature of the ulcer. 07/25/17. Seen by Dr. Nice. The patient does not report increased drainage associated with the chronic right plantar foot diabetic ulcer since his last visit and he's offloading appropriately as recommended. Kerasal is not being applied to the periulcer callus and his visits have been decreased to once weekly over the past few weeks while the ulcer has been improving. 07/18/17. Seen by Dr. Nice. The patient does not report increased drainage associated with the chronic right plantar foot diabetic ulcer since his last visit and he's offloading appropriately as recommended. 07/11/17.Seen by Dr. Nice. The patient has been wearing his offloading shoe and using a knee scooter as recommended and does not report significant drainage associated with the chronic right plantar foot diabetic ulcer since his last visit. 07/04/17. Seen by Dr. Nice. The patient has been wearing his offloading shoe as recommended and does not report significant drainage associated with the chronic right plantar foot diabetic ulcer since his last visit. 06/30/17. Seen by Dr. Nice. The patient has been wearing his offloading shoe as recommended and does not report significant drainage associated with the chronic right plantar foot diabetic ulcer since his last visit. 06/27/2017. Seen by Dr. Nice. The patient has been wearing his offloading shoe as recommended and does not report significant drainage associated with the chronic right plantar foot diabetic ulcer since his last visit. His blood sugars are also mostly below 100 now and he's using his knee scooter as well to further optimize offloading. 06/23/2017. Seen by Dr. Nice. The patient does not report pain nor increased drainage associated with the chronic right plantar foot diabetic ulcer since his last visit. He is wearing his offloading shoe as recommended now and his blood sugar control has improved with some below 200. 06/20/2017. Some by Dr. Nice. The patient is not report increased drainage position with chronic right plantar foot diabetic ulcer since last visit. He is now clindamycin for the resistant Staphylococcus haemolyticus positive culture that was taken to the last visit. His blood sugars continued to be elevated and or over 300 earlier this morning despite having his Lantus dose increased recently. He is also wearing his diabetic shoes but not an offloading surgical shoe as I have been recommending. 06/16/17. Seen by Dr. Nice. The patient does not report increased drainage associated with chronic right plantar foot diabetic ulcers since his last visit. His recent wound culture grew a resistant coag negative staph organism. He also met with his primary care provider, Dr. Green, to increase his dosing of Lantus and plans to work with him on dietary measures to help gain better control of his elevated blood sugars. 06/13/17. Seen by Dr. Nice. The patient's blood sugars again are over 300 today and his appointment with his primary care provider to address this. He does not report any acute changes regarding the chronic right plantar foot diabetic ulcer and is using his knee scooter to help facilitate offloading as much as possible. 06/09/17. Seen by Dr. Nice. The patient does not report significant drainage associated with the chronic right plantar foot diabetic ulcer since his last visit. 06/06/17. Seen by Dr. Nice. The patient does not report significant drainage associated with the chronic right plantar foot diabetic ulcer since his last visit and he's lost another 7 lbs since increasing his dose of Lasix due to abnormal weight gain and significant bilateral lower extremity edema. 06/02/17. Seen by Dr. Nice. The patient does not report significant drainage associated with the chronic right plantar foot diabetic ulcer since his last visit. His increase his dose of Lasix and has lost 7 pounds over the past 3 days. This is been done due to the significant increase in leg swelling over the past 2 weeks. 05/30/17. Seen by Dr. Nice. The patient does not report increased drainage associated with chronic right plantar foot diabetic ulcer since his last visit however he does feel that the right foot and leg are swelling considerably over the past few days. We note a 4 pound weight gain since his last visit on Monday and he states is taking his diuretic as prescribed. 05/26/17. Seen by Dr. Nice. The patient does not report increased drainage associated with chronic right plantar foot diabetic ulcers since his last visit. His culture grew a somewhat resistant coag negative staph and he is not currently on antibiotics. 05/23/17. Seen by Dr. Nice. Staff reports some increased drainage on his dressings covering the chronic right plantar foot diabetic ulcer today. His blood sugar is again over 300 and he states he is eating rice and potatoes trying to cut back. He continues offload with his knee scooter as recommended and does not report pain or any other acute ulcer related issues today. 05/19/17. Seen by Dr. Nice. The patient does not report increased pain or drainage associated with chronic right plantar foot diabetic ulcer since his last visit. He is using his knee scooter as recommended and has had significant problems with heavy callus at the site due to a severe right first toe valgus deformity. He is now attending clinic twice weekly for debridement of the ulcer and complicating callous. 05/16/17. Seen by Dr. Nice. The patient does not report increased drainage or pain associated with chronic right plantar foot diabetic ulcer since his last visit. Of note, the patient's blood sugar as 271 today and his A1c was 9.8 in March. 05/12/17. Seen by Dr. Nice. The patient does not report increased pain or drainage associated with chronic right plantar foot diabetic ulcer since his last visit. He is using his knee scooter to help offload the site which is particularly important based on patient's morbid obesity coupled with his severe first MTPJ valgus deformity. 05/09/17. Seen by Dr. Nice. The patient does not report increased drainage or pain associated with the chronic right plantar foot diabetic ulcer since his last visit. He states his blood sugars continue to be above 200 consistently although are improving with compliance to a lower carbohydrate type diet. He was started on metformin about a month ago he complains of some intermittent upper extremity weakness since then and will be discussing this with his primary care provider. He is also awaiting his new diabetic shoes that are being adjusted to help accommodate for his severe right first toe valgus deformity. 05/02/17. Seen by Jean-Pierre Pinto PA-C. The patient reports stable drainage from his right 1st toe ulcer and blood sugars continue to be above goal. 04/25/17. Seen by Jean-Pierre Pinto PA-C. The patient reports his blood sugars have been above 150 this week. He does not report increased drainage from his right 1st toe diabetic ulcer. 04/18/17. Seen by Dr. Nice. The patient does not report increased drainage associated the chronic right first toe diabetic ulcers since his last visit. 04/11/17. Seen by Jean-Pierre Pinto PA-C. The patient reports he is developing more calloused areas on his feet and is concerned about new ulcers occurring. His chronic 1st toe diabetic ulcer has been stable. 04/04/17. Seen by Jean-Pierre Pinto PA-C. The patient reports he has not been able to get his blood sugars below 150. Drainage is reportedly decreased from his diabetic foot ulcer. 03/30/17. Seen by Jean-Pierre Pinto PA-C. The patient reports continued high blood sugars, all above 150. Drainage from his ulcer is not increased. 03/23/17. s Seen by Jean-Pierre Pinto PA-C. The patient reports blood sugars above 150 again this week. He is concerned that something must be going on with an infection as he believes his diet has not changed and thus his sugars should be lower. His wound has had stable drainage. 03/15/17. Seen by Jean-Pierre Pinto PA-C. The patient reports he has had some blood sugars above 150 this week. He reports no increase in drainage from his right 1st toe diabetic ulcer. 03/08/17. Seen by Dr. Nice. The patient was discharged from the hospital recently following treatment for cellulitis associated with the chronic right first toe diabetic ulcer. He grew MRSA from the wound culture and was treated with IV vancomycin and is now on Bactrim. He does not report pain nor significant drainage associated with the ulcer nor side effects from antibiotics. 02/23/17. Seen by Dr. Nice. The patient does not report increased drainage associated the chronic right first toe diabetic ulcers since his last visit. The patient also states that he is more active over the holidays and was unable to use his knee scooter at times while walking outside due to safety concerns. 02/08/17. Seen by Dr. Nice. The patient does not report increased drainage associated the chronic right first toe diabetic ulcers since his last visit. He states he is using his offloading shoe when at home and a knee scooter went out. 02/01/17. Seen by Dr. Nice. The patient does not report increasing pain or drainage associated with chronic right first toe diabetic ulcer since his last visit. 01/25/17. Seen by Dr. Nice. The patient does not report increasing pain or drainage associated with chronic right first toe diabetic ulcer since his last visit. 01/18/17. Seen by Dr. Nice. The patient does not report increasing pain or drainage associated with chronic right first toe diabetic ulcer since his last visit. Of note, the patient's blood sugar is over 260 again today and he admits that it's been significantly elevated for a number of weeks. He has an appointment with his primary care provider to discuss this next week. 01/11/17. Seen by Dr. Nice. The patient does not report increasing pain or drainage associated with chronic right first toe diabetic ulcer since his last visit. He states his blood sugars have been running high recently and he is going to follow-up with his primary care provider in the near future to address this. 01/04/17. Seen by Dr. Nice. The patient does not report increased drainage associated with chronic right first foot diabetic ulcers since his last visit. He's also been applying Kersal to the periulcer as recommended. 12/28/16. Seen by Dr. Nice. The patient does not report increased drainage associated with chronic right first foot diabetic ulcers since his last visit. 12/22/16. Seen by Dr. Nice. The patient does not report increased drainage associated with chronic right first foot diabetic ulcers since his last visit. He's not been applying Kersal to the periulcer callus and does not appear to be using his knee scooter at all times to offload the ulcer. 12/15/16. Seen by Jean-Pierre Pinto PA-C. The patient reports he continues to have blood sugars above 150 this week. He recently saw his PCP, they did not alter his diabetic care plan. His visit was a follow up for an ER visit for chest pain which was negative for ME and was thought to be epigastric in origin. His diabetic ulcer of the right foot has not had increased drainage. 12/06/16. Seen by Jean-Pierre Pinto PA-C. The patient reports that he has found his knee scooter and plans to start using it today. He also reports most of his blood sugars have been above 150. Drainage from his ulcer has been stable. 11/25/16. Seen by Dr. Nice. The patient does not report increased drainage associated with chronic right first foot diabetic ulcers since his last visit. He is now on antibiotics for wound infection and does not report adverse side effects. Of note, he is not yet using a knee scooter nor offloading shoe as we recommended last week. 11/18/16. Seen by Dr. Nice. The patient returns to our clinic and presents with recurrence of a right first MTPJ plantar diabetic ulcer. He states it started a couple weeks ago when he was attempting to remove overlying callus at home. He does not report significant drainage or pain associated with the ulcer and is not currently on antibiotics. He also states his recent A1c was 7.8. His blood sugar in clinic today is 250. 01/11/16 Seen by Jean-Pierre Pinto PA-C. The patient reports no drainage from his chronic right 1st MTPJ joint since his last dressing change. 01/04/16 Seen by Jean-Pierre Pinto PA-C. The patient reports minimal drainage from his chronic right 1st MTPJ ulcer. He has recently seen his PCP and his A1c was 7.7. His lower extremity edema, abnormal weight gain and kidney failure are stable with his diuretics recently being adjusted. 12/28/15. Seen by Dr. Nice. The patient does not report significant drainage associated with the chronic right 1st MTPJ diabetic ulcer since his last visit however he does complain of increasing shortness of breath, fatigue, and an 18lb weight gain over the past week despite taking his diuretics as recommended. He does not report chest pain or cough and his blood sugars remain relatively well controlled with most below 150. 12/16/15. Seen by Dr. Nice. The patient does not report significant drainage associated with the chronic right 1st MTPJ diabetic ulcer since his last visit. He's applying kerasal to the surrounding callus as recommended and offloading nearly at all times using his knee scooter. 12/07/15 Seen by Jean-Pierre Pinto PA-C. The patient reports compliance with his new offloading brace and shoe and has seen minimal drainage from his diabetic foot ulcer since his last visit. 11/30/15. Seen by Dr. Nice. The patient does not report significant drainage associated with the chronic right 1st MTPJ diabetic ulcer since his last visit and he's wearing a combined AFO / diabetic shoe system that he feels may be better offloading the ulcer. 11/23/15 Seen by Jean-Pierre Pinto PA-C. The patient reports that he is wearing his new diabetic shoes and inserts. He is continuing physical therapy for gait training and reports continued difficulty with stairs and occasional bouts of dizziness. He reports stable drainage from his chronic right foot diabetic ulcer. 11/16/15 Seen by Jean-Pierre Pinto PA-C. The patient reports stable drainage from his right foot diabetic ulcer. He also reports that his diabetic shoes and inserts are quite old and worn out. He is ambulating with is 4 wheeled walker and is working with PT for gait training. 11/09/15 Seen by Jean-Pierre Pinto PA-C. The patient reports that he is still using a 4 wheeled walker instead of a 4 footed walker. PT is working with him to improve his gait and balance. Drainage from his right foot ulcer has been stable. 11/02/15 Seen by Jean-Pierre Pinto PA-C. The patient reports no increase in drainage from his chronic diabetic foot ulcer. He has had multiple blood sugars above 150 this week. 10/29/15. Seen by Dr. Nice. The patient was recently discharged from [facility] following treatment of sepsis thought to possibly be related to his chronic right 1st MTPJ diabetic ulcer that grew Enterococcus just prior to his admission. He now feels generally weak , has lost 18 lbs following diuresis, and is residing at home where he's minimizing his weight bearing on the right foot. He does not report significant drainage from the ulcer nor pain and states his blood sugars remain mostly around 150. He also continues on levofloxacin and does not report adverse side effects. 10/14/15. Seen by Dr. Nice. The patient report persistent bloody drainage from the chronic right 1st MTPJ diabetic ulcer and he feels the callus has increased significantly since it was last debrided 2 week ago. He does not report fevers or feeling unwell and states his blood sugars are well controlled with most below 150. He's using his AFO when walking nearly at all times to facilitate offloading the significant right 1st MTPJ valgus deformity. 09/24/15 Seen by Jean-Pierre Pinto PA-C. The patient reports that he is no ran out of lasix due to a mix up at the pharmacy and unavailability of his strength/dose of tablets. He continues trying to offload his ulcer with his wheeled walker and notes stable ulcer drainage. 09/17/15. Seen by Dr. Nice. The patient continues to report some bloody drainage from the chronic right 1st MTPJ diabetic ulcer and he's started reducing his activity and continues to use his knee scooter at home to offload the foot. 09/10/15. Seen by Dr. Nice. The patient states he was more active over the past week and notices increased bloody drainage associated with chronic right first MTPJ diabetic foot ulcer. He continues to wear his AFO and states his blood sugars are mostly below 150. 09/03/15. Seen by Dr. Nice. The patient does not report significant drainage associated with the chronic right first MTPJ diabetic ulcer over the past week. He does feel that the callus smaller than on previous visits and is wearing his AFO at all times. Of note, he 's now in doxycycline to treat the recent coag negative Staph cultured from the ulcer at his last visit. 08/27/[address] Nice. The patient reports increase bloody drainage associated with the chronic right foot 1st MTPJ diabetic ulcer and he feels his activity has increased due to physical therapy and increased mobility over the past week. He does not report pain at the ulcer site, fevers, or feeling unwell in general. 08/20/[address] Nice. The patient does not report significant drainage associated with the chronic right foot 1st MTPJ diabetic ulcer over the past week and he's using a knee scooter as much as possible when mobilizing to offload the foot. His blood sugars also remain relatively well controlled with most below 150. 08/13/[address] Nice. The patient does not report significant drainage associated with the chronic right foot diabetic ulcer over the past week and he's offloading using a knee scooter as recommended. His blood sugars remain relatively well controlled with most below 150. 08/06/[address] Nice. The patient reports recurrence of some drainage from the chronic right foot diabetic ulcer over the past few days and states he's been more active with physical therapy. His blood sugars remain well controlled with most below 150 and he's wearing his AFO when away from the house and using a knee scooter most of the time while at home to facilitate offloading. He's also applying Kerasal to the callus in the periwound area as recommended. 07/23/[address] Nice. The patient does not report drainage from the chronic right 1st MTPJ diabetic ulcer over the past week and he's using his new AFO and knee scooter to offload the foot. 07/16/[address] Nice. The patient does not report pain or drainage from the chronic right 1st MTPJ diabetic ulcer and he's wearing his newer AFO while offloading with a knee scooter most of the time. 07/09/[address] Nice. The patient does not report drainage or pain associated with his chronic right foot 1st MTPJ diabetic ulcer and he's been offloading by using a knee scooter when mobilizing. 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 He also states his blood sugars remain well controlled below 150 consistently. 07/03/[address] Nice. The patient does not report significant drainage from the chronic right foot diabetic ulcer and he's offloading by using his knee scooter. His blood sugars also remain relatively well controlled around 150 consistently. 06/26/[address] Nice. The patient report some continued bloody drainage from the chronic right 1st MTPJ diabetic ulcer however he does not report associated pain , fevers or feeling unwell. His blood sugars remain consistently below 150 and he's using his walker and knee scooter for offloading as recommended. 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 06/19/[address] Nice. The patient does not report pain associated with his chronic right 1st MTPJ diabetic ulcer however he states some bloody drainage persists on the dressings. He does not report fevers or feeling unwell and states his blood sugars are well controlled below 150 consistently and he's using a knee scooter and walker to offload the ulcer when mobilizing. He also does not report pain or drainage associated with the left 2nd toe wound. 06/11/[address] Nice. The patient was recently discharged from [facility] following a fall at home that resulted in a broken rib. Regarding his chronic right 1st MTPJ diabetic ulcer he does not report significant drainage and has been offloading through bed rest and using a knee scooter while at home. His blood sugars also remain well controlled with most below 150. He also reports a new wound on the dorsum of the left 2nd toe that he believes occurred during his fall. He does not report associated pain or significant drainage. 05/28/[address] Nice. The patient reports some increased bloody drainage from the chronic right 1st MTPJ diabetic foot ulcer over the weekend associated with a new 'soft' area along the distal margin. He's been more active the past the past few days but states he's using his knee scooter to offload at all times. His blood sugars also remain well controlled with most around 120 and he's no longer on antibiotics. He also continues to wear his old AFO but states there was a recent adjustment of a cut out lined with 'soft' plastic in the area of the ulcer. 05/21/[address] Nice. The patient report less drainage from the chronic right foot 1st MTPJ diabetic ulcer over the past week. He's completed his course of doxycycline and he continues on fluconazole for the recent Alma Delia positive wound culture. He's also reverted back to using his previous AFO while his newer one is adjusted to try to address the recent significant increase in callus formation that's occurred. His blood sugars also remain well controlled under 150 consistently and his recent episodes of hypoglycemia has resolved with an adjustment of his insulin regimen. 05/14/[address] Nice. The patient reports less drainage on the dressings covering the chronic right 1st MTPJ diabetic ulcer since starting doxycycline for a coag negative Staph wound culture along with fluconazole for the alma delia positive culture. His blood sugars remain well controlled below 120 and his insulin has been decreased due to the recent episodes of hypoglycemia. His diuretic has also been decreased as he's lost considerable water weight over the past month. 05/07/[address] Nice. The patient continues to report modest bloody drainage on the dressing covering the chronic right 1st MTPJ diabetic ulcer and he continues to limit his walking but has not been using a knee scooter or walker around the house to facilitate offloading. His blood sugars remain well controlled mostly below 150. 3/10/[address] Nice. The patient continues to report bloody drainage on his right foot diabetic ulcer dressing and he's feeling a bit unwell in general without reporting specific symptoms. He also continues to have intermittent low blood sugars in the 50-60' s and has not discussed this issue with his PCP recently. He's wearing his AFO daily but admits to having difficulty using his walker at all times due to limited space in his new apartment. 04/27/15 Seen by Jean-Pierre Pinto PA-C. The patient reports nonspecific malaise for the past few days. Last night, he reports feeling to tired, weak and shaky to watch TV and went to bed very early. His malaise has been increasing over the past 1-2 weeks and he has frequently been monitoring his blood sugar. His blood sugars are lower than normal lately but never below 100. He has been reducing his insulin dosing in the past 2 weeks to compensate for the lower numbers. He continues to loose weight while continuing to take Lasix and metolazone. 04/23/[address] Nice. The staff and patient continue to report at least moderate serosanquinous drainage from the chronic right 1st MTPJ diabetic ulcer. His blood sugars have been well controlled over the past week with most below 150. He does report being more active than usual while he's been moving to his new home and he also states he continues to loose weight following a recent increase in his diruetics. His wound culture from the last visit reported heavy Diptheroids and he's not currently on antibiotics. 04/20/15 Seen by Jean-Pierre Pinto PA-C. The patient reports that he has moved house and has been on his feet much more so as a consequence. He reports increased drainage from his right plantar foot diabetic ulcer. In addition he believes he struck it against a hard surface when moving. He has had no significant pain with weightbearing but is insensate in this area. 04/15/[address] Nice. The patient reports continued weight loss, and decreasing leg swelling, since starting metolazone totaling about 20 lbs. He also feels the chronic right 1st MTPJ diabetic ulcer has been draining increasing amounts of sanguinous fluid. His blood sugars remain well controlled with most below 120 and he does not report fever or feeling unwell. 03/25/[address] Nice. The patient states he walked a considerable amount yesterday and now reports some bleeding from the chronic right 1st MTPJ diabetic foot ulcer. He also continues to report increased weight gain and now some shortness of breath when walking short distances. He has a low grade fever today but does not report a cough or feeling unwell otherwise. 03/11/2015 Seen by Jean-Pierre Pinto PA-C. The patient's weight has increased 10 lbs in the past week. He reports increased shortness of breath with exertion. He denies chest pain, jaw, neck, shoulder pain or shortness of breath at rest. He has been compliant with his diuretics. His ulcer drainage has been stable. 03/04/2015 Seen by Jean-Pierre Pinto PA-C. The patient is wearing his newly adjusted AFO and reports an increase in walking since last visit. He was unaware that his temperature was elevated and reports no URI symptoms such as cough or sore throat. 02/24/2015 Seen by Jean-Pierre Pinto PA-C. The patient believes his ulcer has now been draining more despite trying to offload the ulcer. 02/11/[address] Nice. The patient reports less drainage from the chronic right 1st toe diabetic ulcer and he's still waiting for approval for his new AFO. 02/04/[address] Nice. The patient feels the drainage from the right 1st MTPJ ulcer has decreased since last week and he's scheduled to see Dr. Solitario tomorrow to review his foot deformity and recurrent callus formation at the site of the ulcer. 01/30/[address] Nice. The patient returns to clinic and reports recurrence of the recently healed right 1st MTPJ diabetic foot ulcer with new moderate drainage and significant callus formation. He's not yet re-established with Dr. Solitario, podiatry, due to insurance issues and is awaiting approval for an adjustment for his AFO. His blood sugars remain controlled below 150 mostly and he does not report pain in the foot or fevers. 01/12/[address] Nice. The patient does not report drainage from the right 1st toe MTPJ ulcer and he's scheduled to have his new AFO fitted this week. 01/05/[address] Nice. The patient does not report drainage associated with the right 1st MTPJ diabetic foot ulcer however he states he has had some intermittent, very brief 'shooting' pain at the site of the ulcer the past few days. His blood sugars also remain between 120 and 150 mostly. 12/29/[address] Nice. The patient does not report drainage from the chronic right 1st MTPJ diabetic foot ulcer and he offloads using a walker and surgical shoe at all times except for when he wears a slipper around his small apartment. 12/22/[address] Nice. The patient does not report significant drainage from the right 1st MTPJ diabetic foot ulcer and he states his blood sugars are still in the 150 range with some over 180. 12/10/[address] Nice. The patient does not report significant drainage from the right 1st MTPJ diabetic foot ulcer. 12/04/[address] Nice. The patient does not report any drainage from the chronic right 1st MTPJ diabetic foot ulcer and he's still waiting for insurance approval for a custom, articulating AFO. His blood sugars also remain relatively well controlled below 150 consistently. He also continues to apply Kerasal to the associated callus daily. 11/20/[address] Nice. The patient's been feeling unwell the past week and feels he may have lost as much as 10 lbs due to poor oral intake. Otherwise he does not report any new problems regarding his right 1st MTPJ plantar diabetic ulcer. 11/07/[address] Nice. The patient reports only scant drainage from the right plantar diabetic foot ulcer. He's been offloading as recommending with a walker and is awaiting a approval for an articulating AFO. His blood sugars remain mostly well controlled below 150. 10/31/14 Seen by Jean-Pierre Pinto PA-C. The patient feels he has reached another plateau with regard to his wound healing. His right plantar diabetic ulcer continues to drain and has not improved recently. He is wearing his brace and reports compliance with offloading. 10/21/[address] Nice. The patient reports only scant drainage from his right 1st plantar surface MTPJ diabetic foot ulcer. He continues to offload with a frame walker and his blood sugars are moderately well controlled with most below 150. 10/14/[address] Nice. The patient does not report significant drainage from the right 1st plantar MTPJ ulcer. Of note, when discussing his blood sugars he mentions he's on both 70/30 insulin as well as Lantus and he frequently has blood sugars in the 150-200 range. 10/07/[address] Nice. The patient reports some modest drainage from the right 1st MTPJ plantar ulcer but no pain, erythema, or swelling. His blood sugars are mostly below 150 and he offloads with his AFO. 09/30/14 Seen by Jean-Pierre Pinto PA-C. The patient reports continued compliance with his AFO and he is trying to offload. He is scheduled now with PT for gait training and knee strengthening. He reports his knee is still sore at times and he feels unstable at times when using his offloading devices and AFO. 09/23/[address] Nice. The patient reports only minimal drainage from the right plantar 1st MTPJ ulcer. 09/16/14 Seen by Jean-Pierre Pinto PA-C. The patient continues to use his AFO, offloading shoe, knee scooter and frame walker to offload his wound. 09/09/14 Seen by Jean-Pierre Pinto PA-C. The patient has been wearing his AFO and offloading shoe together, with the added padding as designed by Sahra BOYD of [facility]. He reports that he feels unsteady and that his knee has felt strained and he discontinued using the brace as he is concerned that he has, or will, re-injure his right knee. He also is having difficulty using his knee scooter with the brace. One year ago , while attempting to offload his foot he did injure his knee and required physical therapy to recover. 08/19/14 Seen by Jean-Pierre Pinto PA-C. The patient's weight is down 10 lbs from his previous visit. His twice daily naproxen has been discontinued by his PCP in an effort to reduce his lower extremity edema. 08/15/14 Seen by Jean-Pierre Pinto PA-C. The patient continues to have weight fluctuations and large amounts of weight gain in short periods of time despite increased diuretic usage. 08/04/14 Seen by Jean-Pierre Pinto PA-C. The patient has been taking his Levaquin and again reports to the clinic with a low grade fever. He reports nearly daily application of Kerasal and his weight and edema have been stable on a higher dose of diuretics. Blood sugars remain stable on his current diabetic medications. 07/21/14 Seen by Jean-Pierre Pinto PA-C. The patient does not report fever, chills or URI symptoms. His wound drainage has been stable. 07/16/[address] Nice. The patient reports persistent but minimal drainage from the right foot plantar ulcer and continues to offload with a walker at all times. His blood sugar are mostly below 150 with a few around 170 the past few days. 07/01/14 The patient reports that he has gained 8lbs in 8 days. Denies SOB. Does not report fever or chills. 06/23/[address] Nice. The patient continues to offload with a knee scooter and walker at all times. He does not report significant drainage from the right plantar foot ulcer. 06/20/[address] Nice. The patient has been offloading his right foot ulcer with a walker and reports less drainage over the past 2 days. He's now off of antibiotics and his blood sugars remain well controlled below 150. 06/11/[address] Nice. The patient reports persistent drainage from the right foot plantar 1st MTPJ ulcer and he completed his course of doxycycline which was started for a MRSA positive culture from the ulcer site. His blood sugars have also been a bit elevated above 150 recently. He does not report fever or chills however. 06/04/14 The patient reports difficulty in offloading his wound due to inability to use crutches due to poor balance. He find the wheelchair difficult to use and his knee scooter is not rated for his weight. He denies fever, chills or URI symptoms. 05/28/14 The patient's been attempting to offload with a knee scooter but is concerned it may not be appropriate or stable based on his weight. He does not report increased drainage from he right plantar 1st MTPJ ulcer and his blood sugars remain well controlled below 120. 05/21/14 The patient reports only minimal sanguinous drainage from his right foot plantar ulcer and has been offloading it by minimizing his walking. He's also completed a course of doxycycline that was given for a coag negative staph wound culture from the ulcer. He states his blood sugars are consistently below 120 and does not report hypoglycemia. 05/13/14 The patient reports minimal drainage from his right foot plantar ulcer. His recent wound culture from the site returned coag negative Staph and Diptheroids. 05/02/14 The patient reports less drainage from the right plantar foot ulcer and continues to off loading by minimizing walking and wearing a post-op shoe. 04/29/14 The patient continues to wear his surgical boot with the cutout for his right foot plantar diabetic ulcer. He reports no increase in drainage. 04/25/14 The patient reports minimal bloody drainage on the right foot plantar ulcer dressing that was placed yesterday. He does not report any drainage from the previously healed lateral foot ulcer. His edema in the right leg persists despite wearing compression stockings daily and his blood sugars remain well controlled below 120 with his last A1c approx 2 months ago at 7.4. 04/22/14 The patient reports no increase in drainage from his wounds today. He has been faithfully wearing his orthopedic boot with the cut-out area around his 5th MT ulcer. 04/15/14 The patient reports no increase in drainage from his wounds today. He reminds me that a TCC was the cause of his 5th MT ulcer and he is not excited about trying a TCC again. He is interested in HBOT if it will be beneficial to his wounds. 04/09/14 The patient reports increased drainage from his right 5th MT ulcer and feels his surgical boot he's been wearing for off loading may have caused pressure to the area. His blood sugars have improved and he also reports a 5 lb weight loss after doubling his dose of lasix over the past week. Of note, he did not liaise with his PCP prior to doing this. 04/04/14 The patient states that he was walking a bit more than usual yesterday but notes some sanguinous drainage on his plantar 1st MTPJ dressing for the past few days. He's also put on 7 lbs in the past week and feels his legs are more swollen than usual. He does not report chest pain, shortness of breath, or orthopnea. His blood sugars are also up a bit around 180. He's compliant with both his diabetes regimen and his diuretic therapy. 03/28/14 The patient reports no increased drainage or other complications from his right foot diabetic ulcers. 03/21/14 The patient reports minimal drainage from his right foot diabetic ulcers. He continues to minimally weight bear using a surgical boot and a walker. 03/14/14 The patient does not report increased drainage or other new issues regarding his right 5th MTPJ and right 1st MTPJ plantar ulcers. His blood sugars remain more elevated than usual with some between 150 and 180. 03/07/14 The patient reports no fever or increased right foot wound pain or drainage. 02/28/14 The patient reports that his blood sugar this morning is a bit elevated around 160 but has mostly been below 140 over the past few days. He's been off antibiotics for 3 days now and reports modest drainage from the right 5th MT ulcer while dressing changes are being done every two days. 02/24/14 The patient does not report any new issues regarding his right foot ulcers including increased drainage, fever, or chills. He completed his course of doxycycline yesterday. 02/17/14 The patient reports moderate yellow drainage from the right foot 5th MTPJ ulcer. He's completed a course of doxycycline and does not report fever or chills but states his blood sugars remain higher then normal in the 170's. His wound culture was positive for Enterobacter and his ESR was elevated at 41 and CRP at 2.7. 02/06/14 The patient does not report increased drainage from the right 5th MTPJ ulcer nor does he report fever or pain. He continues to off load with a walker and minimizing walking. He continues on doxycycline which was started empirically at his last visit and his culture has since grown Enterobacter which should be susceptible to doxy based on sensitivities. His xray of the foot was not concerning for osteomyelitis however his ESR and CRP are both moderately elevated. He also feels his legs are more swollen than usual and he continues to take his lasix as scheduled. 02/03/14 The patient does not report fever, chills, or pain in the right foot however when the TCC was removed today he's noted to have a sizable increase in the diameter and depth of what was a small 5th MTPJ ulcer. 01/14/14 The patient reports no new problems regarding is right diabetic foot ulcer. 12/31/13 The patient reports minimal serous drainage from his right 5th MTPJ ulcer and states he continues to off load his foot as much as possible. He does not report pain or drainage from the site of his right 1st MTPJ ulcer. 12/19/13 The patient tolerated with TCC without any complaints but there appears to be a small area of erythema over the right 5th MTPJ. He notes his blood sugars are typically below 120 and his A1c last week was 7.4. 12/13/13 The patient has no complaints regarding his TCC nor his plantar ulcer. 12/11/13 The patient returns for placement of a TCC today. He does not report any new problems regarding is plantar ulcer. 12/03/13 The patient states his plantar ulcer drainage is stable and he's continued to not use a cut-out foam doughnut over the ulcer. 11/26/13 The patient has kept the foam dressing in place from the last visit and has not used a cut-out foam dressing which we felt caused some deterioration of the foot ulcer. He has some mild drainage but no pain. 11/22/13 The patient returns for review of his plantar ulcer and callus that seems to be deteriorating despite an adjustment to his boot and off loading measures. The patient reports his callus accumulation is in spite of daily kerasal applications. Patient reports a new small wound on the left second toe. Josue states that it might be related to the brace. Patient had brace modified to help off load. 11/06/13 Josue states he was able to schedule with the prosthetic doctor tomorrow at noon. He reports no new problems or concerns. He also says that he is done with physical therapy since yesterday as insurance will not cover it any longer. 10/31/13 The patient reports he received his dressing supplies. Dressings changes are going well and no new problems are reported. He saw his middleware architect, Dr. Solitario, on Monday for a check up and had and x-ray of the foot. 10/24/13 Josue reports he has been staying off of his feet as much as possible. He has been changing the dressing as ordered and states there has been just a small amount of drainage. He recently ran out of his dressings and will need more ordered or the balance sent home with him. 10/17/13 Patient states he has no new problems or concerns. He did have a small increase in drainage the other day but he had walked more than normal the day before. 10/09/13 Josue states he has no new issues. Dressing changes are going well. 10/02/13 Josue states there have been no new issues with dressing changes. They have been changed once since his last visit. No complaints of pain with the wound. 09/20/13 Josue was discharged from wound care September 05. States that he has been using pumice stone on callus area where had previous wound and may have been too aggressive. Also has been on feet more and having increase in lower extremity edema. Continues to wear the tetragrip F he had received in the clinic 6 hours per day but has not ordered any yet. 09/27/13 Patient states that there have been no issues with using the tetra chick sexer. Asking about getting compression stockings from drug store for continued use. 09/05/13 Patient states he has set up physical therapy for the problems with his knee. He starts these treatments on 09/11. There has been no new issues with his wound and he changes the dressings about every two days. He reports little to no drainage. 08/06/13 States no new problems with wound area. Been using kerosol daily. 08/19/13 Patient states he twisted his knee a week ago, and it is effecting his walk slightly. He also complains of more edema in his legs, and has an appointment with his PCP tomorrow regarding the issue. No new problems or concerns with his wound. No new problems or concerns. Patient states he changed the dressing a few times this last week. Saw Dr. Solitario this past week for check up with no change o his management. 07/26/13 The patient has had new brace for one week and so far it is working out well. No other complaints at this time. 07/18/13 Patient got brace for foot and leg yesterday. No problems or concerns. 07/11/13 No problems or concerns. Changed dressing twice since last visit 07/04/13- Pt went to his PCP and his lasix were increased from 20mg to 40mg. He states his edema has decreased since then. Pt's diabetic foot brace (decreases lateral movement to reduce pressure on the sides of his feet) will arrive in about another week. 06/20/13- Pt reports increased edema in his feet for the last week, he has been walking more, but also sitting with his feet down more. With the increase in exercise he states his back has been hurting. On Sunday 06/18 pt went to [facility],and had his ankle brace fitting. 05/31/[address] Green this am. Changed dressing twice this week. Saw laborer yard (in [place]) on Monday. Considering ankle brace 05/24/13 states started walking program at 5 minutes at a time and taking the bus to clinic apt. 11/08/12 Pt is changing dressing every two days. Is concerned about the edema to the left leg that had the cellulitis. States it is warm. 11/15/12 patient has been having more nerve pain. He has been changing his dressing either every day or every other day. 11/22/12- Patient continues to change dressing about every day. No problems noted. Patient changing dressing about q o day. Thinks wound is less deep. 12/07/12 Pt only changed dressing twice since last visit. No concerns or problems. 12/18/12 When cleaning wound was able to aspirate large purlent sero-sang fluid from site. Pt states he feels it was doing better. 12/24/12 Decreased drainage and pt states he feels the wound is doing well. 12/31 Pt states he has had decreased draiange from wound. Pt denies pain. 01/07/13Pt states the kerasol didn't really do much, but admits he was only applying it every other day and is not sure what his expectations should be. He believes he may have bumped a toe on the left foot and has been concerned about some bruising there but admits it is getting better. Still does not have his new shoes and says he is exploring other options like disability. 01/21/13 feeling well since last visit. feels he may have bumped third toe so wants it to be seen. Level 2- 3 neuropathic pain in right foot 02/27/12 Patient changing bandaid on foot and applying kerasol every three days. Patient got new PCP and saw him yesterday. Patient states things are going well with the wound. 03/12/[address] Green for edema and will see him tomorrow for follow up.03/25/13 states has drainage from bottom of foot. concerned about new wounds Sates he changes dressing every 2 days. Changed this AM as it came off. Using Ca alginate and foam. States no drainage last night 04/19/13 changes dressing every 2-3 days. no problem. Has appt with Dr. Solitario 04/30/13 and new shoes have arrived. To be fitted next week 04/26/13 Is wearing new shoes and states they are working well.Changed dressing twice this week 05.03.[address] Solitario last week. will see again in [address] Green started antibiotic for sinus infection States sinuses not a lot better. Has started Lakshmi D, helping some. States wound about same. Changing dressing 2 x this week as dressing came off. States added collagen one time. Past Medical History This information was obtained from the patient Patient has a medical history of: Left lower extremity cellulitis - 10/15/2012 Diabetic foot ulcer - 09/27/2013 (Hernandez grade 2; right plantar surface; Hernandez grade III (Enterobacter positive wound culture 02/03/14), lateral right 5th MTPJ originally dx 12/24/13; MRSA positive culture 06/04/14 ) Chronic venous hypertension Type II Diabetes Hypertension Morbid Obesity Kidney Stones Hx MRSA Diabetic neuropathy Hallux valgus (right 1st toe) UTI (hospital admit) Cellulitis of legs (June and September 2012- hospital admit) Cataract surgery (10/13/15) Diabetic Neuropathy Complaints and Symptoms This information was obtained from the patient Patient complains of: General Notes: I have reviewed and concur with the Review of Systems and Past Family Social History documents completed by the clinician, I have reviewed and concur with the Wound Assessment document completed by the clinician Cardiovascular (Central/Peripheral): Lower extremity (leg) swelling Integumentary (Hair/Skin/Nails): Open Sore Musculoskeletal: Deformities, Muscle Weakness Neurological: Abnormal Gait, Loss of Protective Sensation Prior Wound History: Bleeding, Drainage Patient denies complaints or symptoms related to: Cardiovascular (Central): Irregular heart beat Cardiovascular (Central/Peripheral): Lower extremity (leg) resting pain Constitutional Symptoms (General Health): Chills, Fever, Marked Weight Change Ear/Nose/Mouth/Throat: Hearing Loss / Aid Gastrointestinal (GI): Nausea / Vomiting Hematologic/Lymphatic: Bleeding / Clotting Disorders, Bleeding Tendency Musculoskeletal: Assistive Devices Prior Wound History: Erythema, Malodor, Pain Psychiatric: Memory Loss Respiratory: Oxygen Use, Shortness of Breath OBJECTIVE Constitutional Vital signs reviewed and noted. Well developed. Alert. Clean appearing.. Height/ Length: 71 in (180.34 cm), Weight: 350.7 lbs (159.41 kgs), BMI: 48.9, Temperature: 98.6 ?F ( 37 ?C), Pulse: 78 bpm, Respiratory Rate: 17 breaths/min, Blood Pressure: 135/74 mmHg, Capillary Blood Glucose: 154 mg/dl, Pulse Oximetry: 98 %. Vital Signs Notes: Glucose per patient Respiratory: No respiratory distress. Even respirations and without use of accessory muscles.. Gastrointestinal (GI): Obese. Nondistended.. 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 Integumentary (Hair, Skin) No periwound erythema, warmth, or significant drainage. No periwound rashes appreciated or noted otherwise.. Refer to appropriate clinician wound documentation for this visit; right foot ulcer extends to subcut with base partially covered with pink granulation, remainder fibrin and slough. Moderate amount of callus in the periulcer area; improved from prevous visit. Wound #6 Right, Plantar Foot is a chronic Hernandez Grade 2 Diabetic Ulcer and has received a status of Not Healed. Subsequent wound encounter measurements are 2cm length x 1cm width x 0.2cm depth, with an area of 2 sq cm and a volume of 0.4 cubic cm. No tunneling has been noted. No sinus tract has been noted. No undermining has been noted. There is a large amount of sero-sanguineous drainage noted which has no odor. The patient reports a wound pain of level 0/10. The wound margin is callus. Wound bed has Yes epithelialization, No eschar, Yes slough, Yes bright red, pink, firm granulation. The periwound skin moisture is normal. The periwound skin color is normal. The periwound skin exhibited: Callus. The periwound skin did not exhibit: Brawny Induration, Edema, Excoriation, Induration, Crepitus, Fluctuance, Friable, Rash. The temperature of the periwound skin is WNL. Periwound skin does not exhibit signs or symptoms of infection. Local Pulse is Palpable. Wound #7 Right Great Toe is an acute Hernandez Grade 1 Diabetic Ulcer and has received a status of Not Healed. Subsequent wound encounter measurements are 0.3cm length x 0.3cm width x 0.1cm depth, with an area of 0.09 sq cm and a volume of 0.009 cubic cm. No tunneling has been noted. No sinus tract has been noted. No undermining has been noted. There was no drainage noted. The patient reports a wound pain of level 0/10. The wound margin is attached. Wound bed has Yes epithelialization, No eschar, No slough, No granulation. The periwound skin texture is normal. The periwound skin moisture is normal. The periwound skin color is normal. The temperature of the periwound skin is WNL. Periwound skin does not exhibit signs or symptoms of infection. Local Pulse is Doppler. General Notes: Dried exudate covering wound. Neurological: Cranial nerves grossly intact with symmetric function normal by informal observation.. ASSESSMENT Active Problems ICD-10 (Encounter Diagnosis) E11.621 - Type 2 diabetes mellitus with foot ulcer (Encounter Diagnosis) L97.512 - Non-pressure chronic ulcer of other part of right foot with fat layer exposed (Encounter Diagnosis) B95.7 - Other staphylococcus as the cause of diseases classified elsewhere PROCEDURES Wound #6 Wound #6 (Diabetic Ulcer) is located on the right, plantar foot. A skin/ subcutaneous tissue level surgical debridement with a total area debrided of 2.4 sq cm was performed by Stephen Nice MD. Subcutaneous was removed along with devitalized tissue: callus and slough. The following instrument(s) were used: curette. Pain control was achieved using 4% Lido. A time out was conducted prior to the start of the procedure. A minimal amount of bleeding was controlled with silver nitrate. The procedure was tolerated well with a pain level of 0 throughout and a pain level of 0 following the procedure. Post Debridement Measurements: 2cm length x 1.2cm width x 0.3cm depth; with an area of 2.4 sq cm and a volume of 0.72 cubic cm; Additional Information Muscle fascia or bone removed and sent to pathology?: No PLAN Wound Orders: Wound #6 Right, Plantar Foot Anesthetic Topical Xylocaine to wound bed. - In clinic only. Cleanser Cleanse Wound: - Normal saline and gauze. May Shower. - Do not get wound wet with tap water. Use cast protector when showering. Topical Treatments Antibiotic/Antimicrobial Ointment/Cream. - Iodosorb to wound base. Dressings Cover and secure with: - Foam and hypafix tape. Change Dressing: - Every other day. Wound #7 Right Great Toe Anesthetic Topical Xylocaine to wound bed. - In clinic only. Cleanser Cleanse Wound: - Normal saline and gauze. May Shower. - Do not get wound wet with tap water. Use cast protector when showering. Dressings Cover and secure with: - Bandaid. Change Dressing: - Every other day. Additional Orders: Off-Loading Keep weight off: - Right foot as much as possible. Use Knee scooter when able. Use/Wear when Walking: - Offloading shoe. Compression/Edema Control Elevation of leg(s) above the level of the heart when sitting. Avoid prolonged standing in one place. - Please avoid standing or walking for long periods of time. Knee-high gradient compression stockings. - Tetragrip F stockings to both legs. On in the morning and off at night. Follow-Up Appointments Return Appointment: - - Tuesdays and Fridays for callus removal. Other information: If you develop fever, chills, increased pain, drainage, redness or swelling please call our office. If after hours, respond to the ER. Should you experience any significant changes in your wound(s) or have any questions regarding your home care instructions please contact the wound center @ [phone]. If after hours, contact your primary care physician or go to the hospital emergency room. Scribing Attestation I attest, as the nurse, that I scribed these orders for the physician. General Notes: Please finish your antibiotics as prescribed. I've reviewed the clinician's documentation and agree with the evaluation and plan as written. In addition, the patient's ulcer demonstrates evidence of non-viable devitalized tissue which will continue to benefit from sharp debridement to help promote granulation and expedite healing. Also, the patient will complete his course of doxycycline as prescribed. Electronic Signature(s) Signed By: Date: Stephen Nice MD 09/08/2017 13:04:12 Entered By: Stephen Nice on 09/08/2017 12:12:01
== END ==
PROVIDERS: PCP Family Medicine; Visit Provider Internal Medicine
DX: E11.621 Type 2 diabetes mellitus with foot ulcer (principal); L97.512 Non-pressure chronic ulcer of other part of right foot with fat layer exposed; B95.7 Other staphylococcus as the cause of diseases classified elsewhere
CPT/HCPCS: 11042

== ENCOUNTER → 2017-09-12 10:11 | Outpatient (CLI) | payer MEDICARE, OTHER, SELFPAY | PROVIDERS: PCP Family Medicine; Visit Provider Internal Medicine | DX: E11.621 Type 2 diabetes mellitus with foot ulcer (principal); L97.512 Non-pressure chronic ulcer of other part of right foot with fat layer exposed; B95.7 Other staphylococcus as the cause of diseases classified elsewhere | CPT/HCPCS: 11042 ==

== ENCOUNTER 2017-09-15 02:19 | Emergency (ER) | payer MEDICARE, OTHER, SELFPAY ==
[2017-09-15 02:38] VITALS: BP 161/61; PULSE 78; RESP 12; TEMP 36.6; O2SAT 97; BMI 66.1
[2017-09-15 03:15] VITALS: BP 150/65; PULSE 79; RESP 16; O2SAT 95
--- NOTE | 2017-09-15 03:20 | DI.CT.S_ITS ---
PROCEDURE: CT HEAD/BRAIN WO CON INDICATIONS: headache, weakness, speech difficulty TECHNIQUE: Noncontrast 4.5 mm thick angled axial sections acquired from the foramen magnum to the vertex, with coronal and sagittal reformats. For radiation dose reduction, the following was used: automated exposure control, adjustment of mA and/or kV according to patient size. COMPARISON: [facility], CT, HEAD WITHOUT CONTRAST, 05/29/2015, 4:01. [facility], CT, HEAD WITHOUT CONTRAST, 03/05/2016, 19:32. FINDINGS: Preliminary report by shiftman radiology Image quality: Excellent. CSF spaces: Basal cisterns are patent. No extra-axial fluid collections. Ventricles are normal in size and shape. Brain: No midline shift. No intracranial masses or hemorrhage. Mckay-white matter interface is normal. Skull and face: Calvarium and visualized facial bones are intact, without suspicious lesions. Sinuses: Visualized sinuses and mastoids are clear. IMPRESSION: No acute intracranial abnormality or interval change. Findings are concordant with the preliminary report. Dictated by: Harshad Pinon M.D. on 09/15/2017 at 9:26 Approved by: Harshad Pinon M.D. on 09/15/2017 at 9:28
[2017-09-15 03:39] LABS: Add Manual Diff / Slide Review NO; Basophils Percent Auto 0.9 % (0-2); Eosinophils Percent Auto 12.9 % (2-4); Hematocrit 34.2 % (41-53); Hemoglobin 11.7 g/dL (13.5-17.5); Lymphocytes Percent Auto 38.2 % (25-40); Mean Corpuscular HGB Conc 34.1 % (30-36); Mean Corpuscular Hemoglobin 30.3 PG (26-34); Mean Corpuscular Volume 88.9 fL (80-100); Monocytes Percent Auto 6.4 % (3-14); Neutrophils Absolute Auto 3500 /uL (3000-5900); Neutrophils Percent Auto 41.6 % (50-75); Platelet Count 141 X10^3/uL (150-400); Red Blood Cell Count 3.85 X10^6/uL (4.5-5.9); Red Cell Distribution Width 14.5 % (11.6-14.8); White Blood Cell Count 8.4 X10^3/uL (4.5-11.0)
--- NOTE | 2017-09-15 03:39 | ED.WEAKNESS ---
HPI - Weakness General Chief complaint: Weakness Stated complaint: speech slurred nausea weak Time Seen by Provider: 09/15/17 03:00 Source: patient Mode of arrival: ambulatory Limitations: no limitations History of Present Illness HPI Narrative: Patient is a 61-year-old male presenting from [facility] presenting with some nausea and maybe some slurred speech since all 11:30 p.m.. He is slightly sleepy but alert and answering questions appropriately he has no complaints of focal deficits but does have a overall weakness. He feels like his words may be coming a little slower than usual. He also says that he is shaking of more than he has. But he is afebrile. MD Complaint: generalized weakness Related Data Home Medications Medication Instructions Recorded Confirmed gabapentin 1,200 mg PO TID #0 10/07/12 furosemide 80 mg BID #0 10/15/15 vitamin B complex [B 1 tab PO QDAY #0 tab 10/15/15 Complex-Vitamin B12] difluprednate [Durezol] #0 03/06/16 enalapril maleate 20 mg PO Q DAY #0 03/06/16 fluticasone 3 - 4 #0 03/06/16 tamsulosin [Flomax] 0.4 mg PO BID #0 03/06/16 acetaminophen [Tylenol Extra 500 mg PO Q4HP PRN #0 02/27/17 Strength] insulin asp prt-insulin aspart 35 u SQ SEE INSTRUCTIONS #0 02/27/17 [Novolog Mix 70-30 U-100 Insuln] Previous Rx's Medication Instructions Recorded insulin glargine [Lantus Solostar 50 unit SQ BID #30 03/09/16 U-100 Insulin] sulfamethoxazole-trimethoprim 1 tab PO BID #14 tab 03/06/17 Allergies Allergy/AdvReac Type Severity Reaction Status Date / Time amoxicillin [From AUGMENTIN] Allergy Unknown UPSET Unverified 09/15/17 04:51 STOMACH clavulanic acid Allergy Unknown UPSET Unverified 09/15/17 04:51 [From AUGMENTIN] STOMACH Review of Systems Review of Systems All systems reviewed & are unremarkable except as noted in HPI and below Constitutional Reports body ache(s), Reports chills and Denies frequent falls Eyes Denies change in vision, Denies eye discharge, Denies irritation and Denies loss of vision ENT Ears, Nose, Mouth, and Throat: Denies change in voice, Denies neck pain and Denies sore throat Cardiovascular Denies chest pain, Denies syncope, Denies irregular heart rhythm, Denies lightheadedness, Denies palpitations, Denies dyspnea, Denies dyspnea on exertion and Denies orthopnea Respiratory Denies cough, Denies dyspnea, Denies dyspnea on exertion and Denies wheezing Gastrointestinal Gastrointestinal: Denies abdominal pain, Reports nausea and Denies vomiting Musculoskeletal Denies neck pain Integumentary/Breasts Denies pruritus, Denies erythema, Denies rash and Denies wounds Neurologic Denies syncope, Denies frequent falls and Denies loss of vision Endocrine Denies palpitations Allergic/Immunologic Denies wheezing PFSH Medical History Diabetes (Acute) Morbid obesity (Acute) Polypharmacy (Acute) Social History Smoking Status: Never smoker Exam Initial Vital Signs Initial Vital Signs: Vital Signs Temperature 97.8 F 09/15/17 02:38 Pulse Rate 78 09/15/17 02:38 Respiratory Rate 12 09/15/17 02:38 Blood Pressure 161/61 H 09/15/17 02:38 Pulse Oximetry 97 09/15/17 02:38 Const General: cooperative Nutritional Appearance: obese Orientation: alert, awake and oriented x3 HENMT Head: normal to inspection and normocephalic Ears: hearing grossly normal bilaterally Eyes General: appearance normal, both eyes and all related structures Pupils: PERRL EOM: EOM intact bilaterally Neck Neck: normal visual inspection, full ROM and no meningeal signs Chest Chest: normal inspection of the chest Resp Effort & Inspection: normal respiratory effort and able to speak in complete sentences Auscultation: clear to auscultation bilaterally, no crackles, no egophony, no rales and no wheezes Cardio Rhythm: regular rhythm Heart Sounds: S1 normal and S2 normal GI Palpation: soft, No guarding and No tender Skin General: no rashes or lesions noted, No jaundice and No petechiae Other: Right diabetic foot ulcer, chronic, dressing in place Neuro General: alert, oriented x3, gait normal and no focal motor deficits Speech: speech normal Scores NIH Stroke Scale Level of Conciousness: Alert, keenly responsive Ask month/age: Answers both questions correctly. Open/close eyes, close hand: Performs both tasks correctly Best gaze horizontal: Normal Visual han: No visual loss Facial palsy: Normal symetrical movement Left arm drift: No drift for full 10 sec Right arm drift: No drift for full 10 sec Left leg drift: No drift for full 10 sec Right leg drift: No drift for full 10 sec Limb ataxia: Absent Sensory on face/arms/legs: Normal, no sensory loss Best language: No aphasia, normal Dysarthria: Normal Extinction or inattention: No abnormality Total NIH Stroke scale score: 0 Course Orders Ordered: ED Orders 09/15/17 EKG-12 Lead Routine 09/15/17 03:15 Complete Blood Count AUTO DIFF Stat Comprehensive Metabolic Panel Stat Troponin & CK Cardiac Panel Stat 09/15/17 03:20 CT head/brain wo con Stat Sodium Chloride (Normal Saline 0.9%) 1,000 mls @ 150 mls/hr IV CONT RIK Last Admin: 09/15/17 04:30 Dose: 150 mls/hr Discontinued Medications Ondansetron HCl (Zofran) 4 mg IV NOW ONE Stop: 09/15/17 04:44 Last Admin: 09/15/17 04:30 Dose: 4 mg Vital Signs - 8 hr 09/15/17 02:38 Temperature 97.8 F Pulse Rate 78 Respiratory Rate 12 Blood Pressure 161/61 H Pulse Oximetry 97 MDM - Weakness Medical Records Attestation: I reviewed the patient's medical records. Lab Data Result diagrams: 09/15/17 03:15 09/15/17 03:15 Lab Results 09/15/17 09/15/17 Range/Units 03:15 03:15 WBC 8.4 (4.5-11.0) X10^3/uL RBC 3.85 L (4.5-5.9) X10^6/uL Hgb 11.7 L (13.5-17.5) g/dL Hct 34.2 L (41-53) % MCV 88.9 (80-100) fL MCH 30.3 (26-34) PG MCHC 34.1 (30-36) % RDW 14.5 (11.6-14.8) % Plt Count 141 L (150-400) X10^3/uL Neut % (Auto) 41.6 L (50-75) % Lymph % (Auto) 38.2 (25-40) % Tate % (Auto) 6.4 (3-14) % Eos % (Auto) 12.9 H (2-4) % Baso % (Auto) 0.9 (0-2) % Neut # (Auto) 3500 (2523-4733) /uL Sodium 141 (137-145) mmol/L Potassium 4.1 (3.4-5.1) mmol/L Chloride 100 (98-107) mmol/L Carbon Dioxide 30 (22-32) mmol/L BUN 28 H (9-20) mg/dL Creatinine 1.20 (0.66-1.25) mg/dL Estimated GFR > 60.0 (>60) mL/min BUN/Creatinine Ratio 23.3 H (6-22) Glucose 239 H (80-110) mg/dL Calcium 9.2 (8.4-10.2) mg/dL Total Bilirubin 0.7 (0.2-1.3) mg/dL AST 40 (17-59) IU/L ALT 42 (21-72) IU/L Alkaline Phosphatase 78 (38-126) U/L Total Creatine Kinase 114 (55-170) U/L CK-MB (CK-2) 0.94 (<2.37) ng/mL CK-MB (CK-2) Rel Index 0.8 L (1.5-5.0) % Troponin I < 0.012 (0.01-0.034) ng/mL Total Protein 6.7 (6.3-8.2) g/dL Albumin 3.9 (3.5-5.0) g/dL Globulin 2.8 (1.7-4.1) g/dL Albumin/Globulin Ratio 1.4 (1.0-2.8) Imaging Data CT scan - head: 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 He has no aphasia or dysarthria. According to the problem list does have history of polypharmacy and acute metabolic encephalopathy. He has no leukocytosis or symptoms of infection. He is awake alert and responsive. On at this time no indication for admission. May require further outpatient studies. Discharge Plan Departure Patient Disposition: Home, Self-Care Clinical Impression: Acute hyperglycemia Instructions: DI for Diabetes Type 2 Activity Restrictions/Additional Instructions: *You have been diagnosed with slightly elevated blood sugar *What to do: CT and blood work and exam reassuring *Continue to take medications as directed *Follow up with your primary care provider in 2-3 days *Return to ER if you should have any new, worsening or concerning symptoms Prescriptions: No Action gabapentin 800 MG tablet 1,200 mg PO TID Qty: 0 RF: 0 furosemide 80 MG tablet 80 mg BID Qty: 0 RF: 0 vitamin B complex [B Complex-Vitamin B12] 1 EACH tablet 1 tab PO QDAY Qty: 0 RF: 0 enalapril maleate 20 MG tablet 20 mg PO Q DAY Qty: 0 RF: 0 tamsulosin [Flomax] 0.4 MG capsule,extended release 24hr 0.4 mg PO BID Qty: 0 RF: 0 difluprednate [Durezol] 0.05 % drops Qty: 0 RF: 0 fluticasone 16 GM spray,suspension 3 - 4 Qty: 0 RF: 0 insulin glargine [Lantus Solostar U-100 Insulin] 100 UNIT/1 ML insulin pen 50 unit SQ BID Qty: 30 RF: 0 acetaminophen [Tylenol Extra Strength] 500 MG tablet 500 mg PO Q4HP PRNQty: 0 RF: 0 insulin asp prt-insulin aspart [Novolog Mix 70-30 U-100 Insuln] 100 UNIT/1 ML solution 35 u SQ SEE INSTRUCTIONS Qty: 0 RF: 0 sulfamethoxazole-trimethoprim 800 MG/160 MG tablet 1 tab PO BID Qty: 14 RF: 0 Referrals: Abdoul Green MD [Primary Care Provider] -
[2017-09-15 03:43] LABS: Alanine Aminotransferase 42 IU/L (21-72); Albumin 3.9 g/dL (3.5-5.0); Albumin Globulin Ratio 1.4 (1.0-2.8); Alkaline Phosphatase 78 U/L (38-126); Aspartate Aminotransferase 40 IU/L (17-59); BUN Creatinine Ratio 23.3 (6-22); Bilirubin Total 0.7 mg/dL (0.2-1.3); Blood Urea Nitrogen 28 mg/dL (9-20); Calcium 9.2 mg/dL (8.4-10.2); Carbon Dioxide 30 mmol/L (22-32); Chloride 100 mmol/L (98-107); Creatine Kinase 114 U/L (55-170); Estimated Glomerular Filt Rate > 60.0 mL/min (>60); Globulin 2.8 g/dL (1.7-4.1); Glucose 239 mg/dL (80-110); HEMOLYSIS < 15 (0-50); Potassium 4.1 mmol/L (3.4-5.1); Sodium 141 mmol/L (137-145); Total Protein 6.7 g/dL (6.3-8.2)
[2017-09-15 03:58] LABS: CKMB % Relative Index 0.8 % (1.5-5.0); Creatine Kinase MB 0.94 ng/mL (<2.37)
[2017-09-15 04:01] LABS: Troponin I < 0.012 ng/mL (0.01-0.034)
[2017-09-15] MEDS: SODIUM CHLORIDE 0.9% 1,000 ML 150 ML IV (04:30)
[2017-09-15] MEDS: ONDANSETRON 4 MG/2 ML INJ IV (04:30)
[2017-09-15 04:45] VITALS: BP 129/48; PULSE 72; RESP 72; O2SAT 95
[2017-09-15 05:30] VITALS: BP 145/62; PULSE 74; RESP 16; O2SAT 97
[2017-09-15 06:00] VITALS: BP 125/51; PULSE 71; RESP 16; O2SAT 93
--- NOTE | 2017-09-15 06:32 | PC.NURSE ---
Dr Webber is aware PT unable to void for us.
== END 2017-09-15 06:30 | disposition home or self-care (01) ==
PROVIDERS: Emergency Provider Emergency Medicine; PCP Family Medicine
DX: R73.9 Hyperglycemia, unspecified (principal); R53.1 Weakness; R47.81 Slurred speech
CPT/HCPCS: 36415; 70450; 80053; 82550; 82553; 84484; 85025; 93005; 93041; 96361; 96374; 99283; 99285; J2405

== ENCOUNTER → 2017-09-15 10:13 | Outpatient (CLI) | payer MEDICARE, OTHER, SELFPAY | PROVIDERS: PCP Family Medicine; Visit Provider Internal Medicine | DX: E11.621 Type 2 diabetes mellitus with foot ulcer (principal); L97.512 Non-pressure chronic ulcer of other part of right foot with fat layer exposed; R53.1 Weakness; R25.1 Tremor, unspecified | CPT/HCPCS: 11042 ==

== ENCOUNTER → 2017-09-19 09:29 | Outpatient (CLI) | payer MEDICARE, OTHER, SELFPAY ==
--- NOTE | 2017-09-19 | OV.WND_ITS ---
Progress Note Details Patient Name: Josue Mesa Patient Number: [id number] PatientPatientDate: 09/19/2017 Clinician: Digna Diallo Clinician Cosigner: Estephanie Grant Physician / Railway Switchman: Stephen Nice SUBJECTIVE Chief Complaint This information was obtained from the patient Diabetic ulcer to right plantar foot and great toe. General Notes: Right Foot very bruised. States slipped getting out of bed. He has been started on Bactrim No x-rays and did see Dr. Green on MondaySeptember 182017 Allergies Augmentin (Severity: Mild, Reaction: nausea) HPI This information was obtained from the patient 09/19/17. Seen by Dr. Nice. The patient reportedly fell on Monday injuring his right foot. He was seen by his PCP yesterday who felt it may have been infected and he was started on Keflex. He does not report pain in the foot and is able to bear weight as usual. He also does not report increased drainage associated with the chronic right 1st MTPJ diabetic ulcer since his last visit. 09/15/17. Seen by Dr. Nice. The patient arrived today feeling quite week and shaky and states he was seen in the ER earlier this morning for similar complaints and subsequently discharged to his [facility]. His CT scan and labs were unremarkable however he was unable to leave a urine sample for analysis at that time. His symptoms persist during our visit however there's no confusion or other acute complaints. He's also finished his course of Bactrim that was treating the recent right diabetic foot ulcer infection and he does not report increased drainage for pain at the ulcer site. 09/12/17. Seen by Dr. Nice. The patient does not report increased drainage associated with the chronic right 1st MTPJ diabetic ulcer since his last visit. He also continues on doxycycline for the recent Staph cultured from the ulcer and he does not report adverse side effects. 09/08/17. Seen by Dr. Nice. The patient's now on doxycycline for the recent coag negative Staph culture taken from the chronic right 1st MTPJ diabetic ulcer. He does not report adverse side effects nor increased drainage or pain associated with the ulcer. 09/05/17. Seen by Dr. Nice. The patient does not report increased drainage associated with the chronic right 1st MTPJ nor right 1st toe dorsal diabetic ulcers since his last visit however the nurse reports increased bloody drainage on the dressing and increased maceration and callus along the distal margin of the ulcer. His recent wound culture grew coag negative Staph and he's not currently on antibiotics. 09/01/17. Seen by Dr. Nice. The patient does not report increased drainage associated with the chronic right 1st MTPJ nor right 1st toe dorsal diabetic ulcers since his last visit. 08/29/17. Seen by Dr. Nice. The patient does not report increased drainage associated with the chronic right 1st MTPJ diabetic ulcer since his last visit. He does complain of progressive upper extremity tremors that are most noticeable in the morning and evening and may occur after he takes his metformin. He does not report low blood sugars and he'll bee seeing his PCP today to discuss this. 08/25/17. Seen by Dr. Nice. The patient reports being more active and on a boat over the holiday which was no conducive to using his knee scooter. He feels the right 1st MTPJ ulcer has deteriorated and he has a new ulcer over the dorsum of the right 1st toe now. 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 08/22/17. Seen by Dr. Nice. The patient was seen at [facility] and they provided a new orthotic insert to help better offload the chronic right 1st MTPJ diabetic ulcer while he's wearing his surgical, forefoot offloading show. He does not report increased drainage or pain associated with the ulcer and is using a knee scooter also to help offload. He has a severe valgus deformity which results in heavy callus formation and has required twice weekly debridements which has been effective in gradually promoting the ulcer to heal. He's also been applying topical gentamicin to the ulcer base to treat the recent coag negative Staph culture that was taken due to increased drainage. 08/18/17. Seen by Dr. Nice. The patient's wound culture taken from the chronic right foot diabetic ulcer at his last visit grew an intermediately resistant coag negative Staph and his dressing change and application of gentamicin is taking place only every 2-3 days. He does not report pain in the foot but staff report his dressing as being 'bloody' today. 08/15/17. Seen by Dr. Nice. The patient reports what may be increased drainage on his right foot diabetic ulcer dressings as mentioned by his hospice care consultant in assisted living. He's using a knee scooter as recommended and does not report pain in the foot. He's also asking when it will be appropriate to have his right foot orthotic adjusted in his diabetic shoe although he's currently wearing a forefoot offloading shoe at all times. 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 08/11/17. Seen by Jean-Pierre Pinto PA-C. The patient reports stable drainage from his right foot diabetic ulcer. Again his blood sugars have been above 150 since his last visit. 08/08/17. Seen by Jean-Pierre Pinto PA-C. The patient reports no increase in drainage from his right foot diabetic ulcer. His blood sugars this week have reportedly been mostly above 150. 08/04/17. Seen by Dr. Nice. The patient does not report increased drainage associated with the chronic right plantar foot diabetic ulcer since his last visit and he's offloading appropriately as recommended. He also was seen by Dr. Solitario, podiatry, who discussed possible surgical options to address the severe right 1st toe valgus deformity that's complicating the ulcer and contributing to heavy periculcer callus formation however there's no plan of intervention at this time. 08/01/17. Seen by Dr. Nice. The patient does not report increased drainage associated with the chronic right plantar foot diabetic ulcer since his last visit and he's offloading appropriately as recommended. 07/28/17. Seen by Dr. Nice. The patient does not report increased drainage associated with the chronic right plantar foot diabetic ulcer since his last visit and he's offloading appropriately as recommended. We've increased his visits to twice weekly due to the very heavy callus formation that's contributing to the refractory nature of the ulcer. 07/25/17. Seen by Dr. Nice. The patient does not report increased drainage associated with the chronic right plantar foot diabetic ulcer since his last visit and he's offloading appropriately as recommended. Kerasal is not being applied to the periulcer callus and his visits have been decreased to once weekly over the past few weeks while the ulcer has been improving. 07/18/17. Seen by Dr. Nice. The patient does not report increased drainage associated with the chronic right plantar foot diabetic ulcer since his last visit and he's offloading appropriately as recommended. 07/11/17.Seen by Dr. Nice. The patient has been wearing his offloading shoe and using a knee scooter as recommended and does not report significant drainage associated with the chronic right plantar foot diabetic ulcer since his last visit. 07/04/17. Seen by Dr. Nice. The patient has been wearing his offloading shoe as recommended and does not report significant drainage associated with the chronic right plantar foot diabetic ulcer since his last visit. 06/30/17. Seen by Dr. Nice. The patient has been wearing his offloading shoe as recommended and does not report significant drainage associated with the chronic right plantar foot diabetic ulcer since his last visit. 06/27/2017. Seen by Dr. Nice. The patient has been wearing his offloading shoe as recommended and does not report significant drainage associated with the chronic right plantar foot diabetic ulcer since his last visit. His blood sugars are also mostly below 100 now and he's using his knee scooter as well to further optimize offloading. 06/23/2017. Seen by Dr. Nice. The patient does not report pain nor increased drainage associated with the chronic right plantar foot diabetic ulcer since his last visit. He is wearing his offloading shoe as recommended now and his blood sugar control has improved with some below 200. 06/20/2017. Some by Dr. Nice. The patient is not report increased drainage position with chronic right plantar foot diabetic ulcer since last visit. He is now clindamycin for the resistant Staphylococcus haemolyticus positive culture that was taken to the last visit. His blood sugars continued to be elevated and or over 300 earlier this morning despite having his Lantus dose increased recently. He is also wearing his diabetic shoes but not an offloading surgical shoe as I have been recommending. 06/16/17. Seen by Dr. Nice. The patient does not report increased drainage associated with chronic right plantar foot diabetic ulcers since his last visit. His recent wound culture grew a resistant coag negative staph organism. He also met with his primary care provider, Dr. Green, to increase his dosing of Lantus and plans to work with him on dietary measures to help gain better control of his elevated blood sugars. 06/13/17. Seen by Dr. Nice. The patient's blood sugars again are over 300 today and his appointment with his primary care provider to address this. He does not report any acute changes regarding the chronic right plantar foot diabetic ulcer and is using his knee scooter to help facilitate offloading as much as possible. 06/09/17. Seen by Dr. Nice. The patient does not report significant drainage associated with the chronic right plantar foot diabetic ulcer since his last visit. 06/06/17. Seen by Dr. Nice. The patient does not report significant drainage associated with the chronic right plantar foot diabetic ulcer since his last visit and he's lost another 7 lbs since increasing his dose of Lasix due to abnormal weight gain and significant bilateral lower extremity edema. 06/02/17. Seen by Dr. Nice. The patient does not report significant drainage associated with the chronic right plantar foot diabetic ulcer since his last visit. His increase his dose of Lasix and has lost 7 pounds over the past 3 days. This is been done due to the significant increase in leg swelling over the past 2 weeks. 05/30/17. Seen by Dr. Nice. The patient does not report increased drainage associated with chronic right plantar foot diabetic ulcer since his last visit however he does feel that the right foot and leg are swelling considerably over the past few days. We note a 4 pound weight gain since his last visit on Monday and he states is taking his diuretic as prescribed. 05/26/17. Seen by Dr. Nice. The patient does not report increased drainage associated with chronic right plantar foot diabetic ulcers since his last visit. His culture grew a somewhat resistant coag negative staph and he is not currently on antibiotics. 05/23/17. Seen by Dr. Nice. Staff reports some increased drainage on his dressings covering the chronic right plantar foot diabetic ulcer today. His blood sugar is again over 300 and he states he is eating rice and potatoes trying to cut back. He continues offload with his knee scooter as recommended and does not report pain or any other acute ulcer related issues today. 05/19/17. Seen by Dr. Nice. The patient does not report increased pain or drainage associated with chronic right plantar foot diabetic ulcer since his last visit. He is using his knee scooter as recommended and has had significant problems with heavy callus at the site due to a severe right first toe valgus deformity. He is now attending clinic twice weekly for debridement of the ulcer and complicating callous. 05/16/17. Seen by Dr. Nice. The patient does not report increased drainage or pain associated with chronic right plantar foot diabetic ulcer since his last visit. Of note, the patient's blood sugar as 271 today and his A1c was 9.8 in March. 05/12/17. Seen by Dr. Nice. The patient does not report increased pain or drainage associated with chronic right plantar foot diabetic ulcer since his last visit. He is using his knee scooter to help offload the site which is particularly important based on patient's morbid obesity coupled with his severe first MTPJ valgus deformity. 05/09/17. Seen by Dr. Nice. The patient does not report increased drainage or pain associated with the chronic right plantar foot diabetic ulcer since his last visit. He states his blood sugars continue to be above 200 consistently although are improving with compliance to a lower carbohydrate type diet. He was started on metformin about a month ago he complains of some intermittent upper extremity weakness since then and will be discussing this with his primary care provider. He is also awaiting his new diabetic shoes that are being adjusted to help accommodate for his severe right first toe valgus deformity. 05/02/17. Seen by Jean-Pierre Pinto PA-C. The patient reports stable drainage from his right 1st toe ulcer and blood sugars continue to be above goal. 04/25/17. Seen by Jean-Pierre Pinto PA-C. The patient reports his blood sugars have been above 150 this week. He does not report increased drainage from his right 1st toe diabetic ulcer. 04/18/17. Seen by Dr. Nice. The patient does not report increased drainage associated the chronic right first toe diabetic ulcers since his last visit. 04/11/17. Seen by Jean-Pierre Pinto PA-C. The patient reports he is developing more calloused areas on his feet and is concerned about new ulcers occurring. His chronic 1st toe diabetic ulcer has been stable. 04/04/17. Seen by Jean-Pierre Pinto PA-C. The patient reports he has not been able to get his blood sugars below 150. Drainage is reportedly decreased from his diabetic foot ulcer. 03/30/17. Seen by Jean-Pierre Pinto PA-C. The patient reports continued high blood sugars, all above 150. Drainage from his ulcer is not increased. 03/23/17. s Seen by Jean-Pierre Pinto PA-C. The patient reports blood sugars above 150 again this week. He is concerned that something must be going on with an infection as he believes his diet has not changed and thus his sugars should be lower. His wound has had stable drainage. 03/15/17. Seen by Jean-Pierre Pinto PA-C. The patient reports he has had some blood sugars above 150 this week. He reports no increase in drainage from his right 1st toe diabetic ulcer. 03/08/17. Seen by Dr. Nice. The patient was discharged from the hospital recently following treatment for cellulitis associated with the chronic right first toe diabetic ulcer. He grew MRSA from the wound culture and was treated with IV vancomycin and is now on Bactrim. He does not report pain nor significant drainage associated with the ulcer nor side effects from antibiotics. 02/23/17. Seen by Dr. Nice. The patient does not report increased drainage associated the chronic right first toe diabetic ulcers since his last visit. The patient also states that he is more active over the holidays and was unable to use his knee scooter at times while walking outside due to safety concerns. 02/08/17. Seen by Dr. Nice. The patient does not report increased drainage associated the chronic right first toe diabetic ulcers since his last visit. He states he is using his offloading shoe when at home and a knee scooter went out. 02/01/17. Seen by Dr. Nice. The patient does not report increasing pain or drainage associated with chronic right first toe diabetic ulcer since his last visit. 01/25/17. Seen by Dr. Nice. The patient does not report increasing pain or drainage associated with chronic right first toe diabetic ulcer since his last visit. 01/18/17. Seen by Dr. Nice. The patient does not report increasing pain or drainage associated with chronic right first toe diabetic ulcer since his last visit. Of note, the patient's blood sugar is over 260 again today and he admits that it's been significantly elevated for a number of weeks. He has an appointment with his primary care provider to discuss this next week. 01/11/17. Seen by Dr. Nice. The patient does not report increasing pain or drainage associated with chronic right first toe diabetic ulcer since his last visit. He states his blood sugars have been running high recently and he is going to follow-up with his primary care provider in the near future to address this. 01/04/17. Seen by Dr. Nice. The patient does not report increased drainage associated with chronic right first foot diabetic ulcers since his last visit. He's also been applying Kersal to the periulcer as recommended. 12/28/16. Seen by Dr. Nice. The patient does not report increased drainage associated with chronic right first foot diabetic ulcers since his last visit. 12/22/16. Seen by Dr. Nice. The patient does not report increased drainage associated with chronic right first foot diabetic ulcers since his last visit. He's not been applying Kersal to the periulcer callus and does not appear to be using his knee scooter at all times to offload the ulcer. 12/15/16. Seen by Jean-Pierre Pinto PA-C. The patient reports he continues to have blood sugars above 150 this week. He recently saw his PCP, they did not alter his diabetic care plan. His visit was a follow up for an ER visit for chest pain which was negative for VT and was thought to be epigastric in origin. His diabetic ulcer of the right foot has not had increased drainage. 12/06/16. Seen by Jean-Pierre Pinto PA-C. The patient reports that he has found his knee scooter and plans to start using it today. He also reports most of his blood sugars have been above 150. Drainage from his ulcer has been stable. 11/25/16. Seen by Dr. Nice. The patient does not report increased drainage associated with chronic right first foot diabetic ulcers since his last visit. He is now on antibiotics for wound infection and does not report adverse side effects. Of note, he is not yet using a knee scooter nor offloading shoe as we recommended last week. 11/18/16. Seen by Dr. Nice. The patient returns to our clinic and presents with recurrence of a right first MTPJ plantar diabetic ulcer. He states it started a couple weeks ago when he was attempting to remove overlying callus at home. He does not report significant drainage or pain associated with the ulcer and is not currently on antibiotics. He also states his recent A1c was 7.8. His blood sugar in clinic today is 250. 01/11/16 Seen by Jean-Pierre Pinto PA-C. The patient reports no drainage from his chronic right 1st MTPJ joint since his last dressing change. 01/04/16 Seen by Jean-Pierre Pinto PA-C. The patient reports minimal drainage from his chronic right 1st MTPJ ulcer. He has recently seen his PCP and his A1c was 7.7. His lower extremity edema, abnormal weight gain and kidney failure are stable with his diuretics recently being adjusted. 12/28/15. Seen by Dr. Nice. The patient does not report significant drainage associated with the chronic right 1st MTPJ diabetic ulcer since his last visit however he does complain of increasing shortness of breath, fatigue, and an 18lb weight gain over the past week despite taking his diuretics as recommended. He does not report chest pain or cough and his blood sugars remain relatively well controlled with most below 150. 12/16/15. Seen by Dr. Nice. The patient does not report significant drainage associated with the chronic right 1st MTPJ diabetic ulcer since his last visit. He's applying kerasal to the surrounding callus as recommended and offloading nearly at all times using his knee scooter. 12/07/15 Seen by Jean-Pierre Pinto PA-C. The patient reports compliance with his new offloading brace and shoe and has seen minimal drainage from his diabetic foot ulcer since his last visit. 11/30/15. Seen by Dr. Nice. The patient does not report significant drainage associated with the chronic right 1st MTPJ diabetic ulcer since his last visit and he's wearing a combined AFO / diabetic shoe system that he feels may be better offloading the ulcer. 11/23/15 Seen by Jean-Pierre Pinto PA-C. The patient reports that he is wearing his new diabetic shoes and inserts. He is continuing physical therapy for gait training and reports continued difficulty with stairs and occasional bouts of dizziness. He reports stable drainage from his chronic right foot diabetic ulcer. 11/16/15 Seen by Jean-Pierre Pinto PA-C. The patient reports stable drainage from his right foot diabetic ulcer. He also reports that his diabetic shoes and inserts are quite old and worn out. He is ambulating with is 4 wheeled walker and is working with PT for gait training. 11/09/15 Seen by Jean-Pierre Pinto PA-C. The patient reports that he is still using a 4 wheeled walker instead of a 4 footed walker. PT is working with him to improve his gait and balance. Drainage from his right foot ulcer has been stable. 11/02/15 Seen by Jean-Pierre Pinto PA-C. The patient reports no increase in drainage from his chronic diabetic foot ulcer. He has had multiple blood sugars above 150 this week. 10/29/15. Seen by Dr. Nice. The patient was recently discharged from [facility] following treatment of sepsis thought to possibly be related to his chronic right 1st MTPJ diabetic ulcer that grew Enterococcus just prior to his admission. He now feels generally weak , has lost 18 lbs following diuresis, and is residing at home where he's minimizing his weight bearing on the right foot. He does not report significant drainage from the ulcer nor pain and states his blood sugars remain mostly around 150. He also continues on levofloxacin and does not report adverse side effects. 10/14/15. Seen by Dr. Nice. The patient report persistent bloody drainage from the chronic right 1st MTPJ diabetic ulcer and he feels the callus has increased significantly since it was last debrided 2 week ago. He does not report fevers or feeling unwell and states his blood sugars are well controlled with most below 150. He's using his AFO when walking nearly at all times to facilitate offloading the significant right 1st MTPJ valgus deformity. 09/24/15 Seen by Jean-Pierre Pinto PA-C. The patient reports that he is no ran out of lasix due to a mix up at the pharmacy and unavailability of his strength/dose of tablets. He continues trying to offload his ulcer with his wheeled walker and notes stable ulcer drainage. 09/17/15. Seen by Dr. Nice. The patient continues to report some bloody drainage from the chronic right 1st MTPJ diabetic ulcer and he's started reducing his activity and continues to use his knee scooter at home to offload the foot. 09/10/15. Seen by Dr. Nice. The patient states he was more active over the past week and notices increased bloody drainage associated with chronic right first MTPJ diabetic foot ulcer. He continues to wear his AFO and states his blood sugars are mostly below 150. 09/03/15. Seen by Dr. Nice. The patient does not report significant drainage associated with the chronic right first MTPJ diabetic ulcer over the past week. He does feel that the callus smaller than on previous visits and is wearing his AFO at all times. Of note, he 's now in doxycycline to treat the recent coag negative Staph cultured from the ulcer at his last visit. 08/27/[address] Nice. The patient reports increase bloody drainage associated with the chronic right foot 1st MTPJ diabetic ulcer and he feels his activity has increased due to physical therapy and increased mobility over the past week. He does not report pain at the ulcer site, fevers, or feeling unwell in general. 08/20/[address] Nice. The patient does not report significant drainage associated with the chronic right foot 1st MTPJ diabetic ulcer over the past week and he's using a knee scooter as much as possible when mobilizing to offload the foot. His blood sugars also remain relatively well controlled with most below 150. 08/13/[address] Nice. The patient does not report significant drainage associated with the chronic right foot diabetic ulcer over the past week and he's offloading using a knee scooter as recommended. His blood sugars remain relatively well controlled with most below 150. 08/06/[address] Nice. The patient reports recurrence of some drainage from the chronic right foot diabetic ulcer over the past few days and states he's been more active with physical therapy. His blood sugars remain well controlled with most below 150 and he's wearing his AFO when away from the house and using a knee scooter most of the time while at home to facilitate offloading. He's also applying Kerasal to the callus in the periwound area as recommended. 07/23/[address] Nice. The patient does not report drainage from the chronic right 1st MTPJ diabetic ulcer over the past week and he's using his new AFO and knee scooter to offload the foot. 07/16/[address] Nice. The patient does not report pain or drainage from the chronic right 1st MTPJ diabetic ulcer and he's wearing his newer AFO while offloading with a knee scooter most of the time. 07/09/[address] Nice. The patient does not report drainage or pain associated with his chronic right foot 1st MTPJ diabetic ulcer and he's been offloading by using a knee scooter when mobilizing. His personnel quality assurance auditor is present today as well to discuss possible adjustments to his AFO with the goal of reducing callus formation that's in part caused by his significant right 1st toe valgus deformity. He also states his blood sugars remain well controlled below 150 consistently. 07/03/[address] Nice. The patient does not report significant drainage from the chronic right foot diabetic ulcer and he's offloading by using his knee scooter. His blood sugars also remain relatively well controlled around 150 consistently. 06/26/[address] Nice. The patient report some continued bloody drainage from the chronic right 1st MTPJ diabetic ulcer however he does not report associated pain , fevers or feeling unwell. His blood sugars remain consistently below 150 and he's using his walker and knee scooter for offloading as recommended. He's also been actively working with his personnel quality assurance auditor in hopes of better offloading the ulcer and address his significant callus formation and left 1st MTPJ valgus deformity. 06/19/[address] Nice. The patient does not report pain associated with his chronic right 1st MTPJ diabetic ulcer however he states some bloody drainage persists on the dressings. He does not report fevers or feeling unwell and states his blood sugars are well controlled below 150 consistently and he's using a knee scooter and walker to offload the ulcer when mobilizing. He also does not report pain or drainage associated with the left 2nd toe wound. 06/11/[address] Nice. The patient was recently discharged from [facility] following a fall at home that resulted in a broken rib. Regarding his chronic right 1st MTPJ diabetic ulcer he does not report significant drainage and has been offloading through bed rest and using a knee scooter while at home. His blood sugars also remain well controlled with most below 150. He also reports a new wound on the dorsum of the left 2nd toe that he believes occurred during his fall. He does not report associated pain or significant drainage. 05/28/[address] Nice. The patient reports some increased bloody drainage from the chronic right 1st MTPJ diabetic foot ulcer over the weekend associated with a new 'soft' area along the distal margin. He's been more active the past the past few days but states he's using his knee scooter to offload at all times. His blood sugars also remain well controlled with most around 120 and he's no longer on antibiotics. He also continues to wear his old AFO but states there was a recent adjustment of a cut out lined with 'soft' plastic in the area of the ulcer. 05/21/[address] Nice. The patient report less drainage from the chronic right foot 1st MTPJ diabetic ulcer over the past week. He's completed his course of doxycycline and he continues on fluconazole for the recent Alma Delia positive wound culture. He's also reverted back to using his previous AFO while his newer one is adjusted to try to address the recent significant increase in callus formation that's occurred. His blood sugars also remain well controlled under 150 consistently and his recent episodes of hypoglycemia has resolved with an adjustment of his insulin regimen. 05/14/[address] Nice. The patient reports less drainage on the dressings covering the chronic right 1st MTPJ diabetic ulcer since starting doxycycline for a coag negative Staph wound culture along with fluconazole for the alma delia positive culture. His blood sugars remain well controlled below 120 and his insulin has been decreased due to the recent episodes of hypoglycemia. His diuretic has also been decreased as he's lost considerable water weight over the past month. 05/07/[address] Nice. The patient continues to report modest bloody drainage on the dressing covering the chronic right 1st MTPJ diabetic ulcer and he continues to limit his walking but has not been using a knee scooter or walker around the house to facilitate offloading. His blood sugars remain well controlled mostly below 150. 04/30/[address] Nice. The patient continues to report bloody drainage on his right foot diabetic ulcer dressing and he's feeling a bit unwell in general without reporting specific symptoms. He also continues to have intermittent low blood sugars in the 50-60' s and has not discussed this issue with his PCP recently. He's wearing his AFO daily but admits to having difficulty using his walker at all times due to limited space in his new apartment. 04/27/15 Seen by Jean-Pierre Pinto PA-C. The patient reports nonspecific malaise for the past few days. Last night, he reports feeling to tired, weak and shaky to watch TV and went to bed very early. His malaise has been increasing over the past 1-2 weeks and he has frequently been monitoring his blood sugar. His blood sugars are lower than normal lately but never below 100. He has been reducing his insulin dosing in the past 2 weeks to compensate for the lower numbers. He continues to loose weight while continuing to take Lasix and metolazone. 04/23/[address] Nice. The staff and patient continue to report at least moderate serosanquinous drainage from the chronic right 1st MTPJ diabetic ulcer. His blood sugars have been well controlled over the past week with most below 150. He does report being more active than usual while he's been moving to his new home and he also states he continues to loose weight following a recent increase in his diruetics. His wound culture from the last visit reported heavy Diptheroids and he's not currently on antibiotics. 04/20/15 Seen by Jean-Pierre Pinto PA-C. The patient reports that he has moved house and has been on his feet much more so as a consequence. He reports increased drainage from his right plantar foot diabetic ulcer. In addition he believes he struck it against a hard surface when moving. He has had no significant pain with weightbearing but is insensate in this area. 04/15/[address] Nice. The patient reports continued weight loss, and decreasing leg swelling, since starting metolazone totaling about 20 lbs. He also feels the chronic right 1st MTPJ diabetic ulcer has been draining increasing amounts of sanguinous fluid. His blood sugars remain well controlled with most below 120 and he does not report fever or feeling unwell. 03/25/[address] Nice. The patient states he walked a considerable amount yesterday and now reports some bleeding from the chronic right 1st MTPJ diabetic foot ulcer. He also continues to report increased weight gain and now some shortness of breath when walking short distances. He has a low grade fever today but does not report a cough or feeling unwell otherwise. 03/11/2015 Seen by Jean-Pierre Pinto PA-C. The patient's weight has increased 10 lbs in the past week. He reports increased shortness of breath with exertion. He denies chest pain, jaw, neck, shoulder pain or shortness of breath at rest. He has been compliant with his diuretics. His ulcer drainage has been stable. 03/04/2015 Seen by Jean-Pierre Pinto PA-C. The patient is wearing his newly adjusted AFO and reports an increase in walking since last visit. He was unaware that his temperature was elevated and reports no URI symptoms such as cough or sore throat. 02/24/2015 Seen by Jean-Pierre Pinto PA-C. The patient believes his ulcer has now been draining more despite trying to offload the ulcer. 02/11/[address] Nice. The patient reports less drainage from the chronic right 1st toe diabetic ulcer and he's still waiting for approval for his new AFO. 02/04/[address] Nice. The patient feels the drainage from the right 1st MTPJ ulcer has decreased since last week and he's scheduled to see Dr. Solitario tomorrow to review his foot deformity and recurrent callus formation at the site of the ulcer. 01/30/[address] Nice. The patient returns to clinic and reports recurrence of the recently healed right 1st MTPJ diabetic foot ulcer with new moderate drainage and significant callus formation. He's not yet re-established with Dr. Solitario, podiatry, due to insurance issues and is awaiting approval for an adjustment for his AFO. His blood sugars remain controlled below 150 mostly and he does not report pain in the foot or fevers. 01/12/[address] Nice. The patient does not report drainage from the right 1st toe MTPJ ulcer and he's scheduled to have his new AFO fitted this week. 01/05/[address] Nice. The patient does not report drainage associated with the right 1st MTPJ diabetic foot ulcer however he states he has had some intermittent, very brief 'shooting' pain at the site of the ulcer the past few days. His blood sugars also remain between 120 and 150 mostly. 12/29/[address] Nice. The patient does not report drainage from the chronic right 1st MTPJ diabetic foot ulcer and he offloads using a walker and surgical shoe at all times except for when he wears a slipper around his small apartment. 12/22/[address] Nice. The patient does not report significant drainage from the right 1st MTPJ diabetic foot ulcer and he states his blood sugars are still in the 150 range with some over 180. 12/10/[address] Nice. The patient does not report significant drainage from the right 1st MTPJ diabetic foot ulcer. 12/04/[address] Nice. The patient does not report any drainage from the chronic right 1st MTPJ diabetic foot ulcer and he's still waiting for insurance approval for a custom, articulating AFO. His blood sugars also remain relatively well controlled below 150 consistently. He also continues to apply Kerasal to the associated callus daily. 11/20/[address] Nice. The patient's been feeling unwell the past week and feels he may have lost as much as 10 lbs due to poor oral intake. Otherwise he does not report any new problems regarding his right 1st MTPJ plantar diabetic ulcer. 11/07/[address] Nice. The patient reports only scant drainage from the right plantar diabetic foot ulcer. He's been offloading as recommending with a walker and is awaiting a approval for an articulating AFO. His blood sugars remain mostly well controlled below 150. 10/31/14 Seen by Jean-Pierre Pinto PA-C. The patient feels he has reached another plateau with regard to his wound healing. His right plantar diabetic ulcer continues to drain and has not improved recently. He is wearing his brace and reports compliance with offloading. 10/21/[address] Nice. The patient reports only scant drainage from his right 1st plantar surface MTPJ diabetic foot ulcer. He continues to offload with a frame walker and his blood sugars are moderately well controlled with most below 150. 10/14/[address] Nice. The patient does not report significant drainage from the right 1st plantar MTPJ ulcer. Of note, when discussing his blood sugars he mentions he's on both 70/30 insulin as well as Lantus and he frequently has blood sugars in the 150-200 range. 10/07/[address] Nice. The patient reports some modest drainage from the right 1st MTPJ plantar ulcer but no pain, erythema, or swelling. His blood sugars are mostly below 150 and he offloads with his AFO. 09/30/14 Seen by Jean-Pierre Pinto PA-C. The patient reports continued compliance with his AFO and he is trying to offload. He is scheduled now with PT for gait training and knee strengthening. He reports his knee is still sore at times and he feels unstable at times when using his offloading devices and AFO. 09/23/[address] Nice. The patient reports only minimal drainage from the right plantar 1st MTPJ ulcer. 09/16/14 Seen by Jean-Pierre Pinto PA-C. The patient continues to use his AFO, offloading shoe, knee scooter and frame walker to offload his wound. 09/09/14 Seen by Jean-Pierre Pinto PA-C. The patient has been wearing his AFO and offloading shoe together, with the added padding as designed by Sahra BOYD of [facility]. He reports that he feels unsteady and that his knee has felt strained and he discontinued using the brace as he is concerned that he has, or will, re-injure his right knee. He also is having difficulty using his knee scooter with the brace. One year ago , while attempting to offload his foot he did injure his knee and required physical therapy to recover. 08/19/14 Seen by Jean-Pierre Pinto PA-C. The patient's weight is down 10 lbs from his previous visit. His twice daily naproxen has been discontinued by his PCP in an effort to reduce his lower extremity edema. 08/15/14 Seen by Jean-Pierre Pinto PA-C. The patient continues to have weight fluctuations and large amounts of weight gain in short periods of time despite increased diuretic usage. 08/04/14 Seen by Jean-Pierre Pinto PA-C. The patient has been taking his Levaquin and again reports to the clinic with a low grade fever. He reports nearly daily application of Kerasal and his weight and edema have been stable on a higher dose of diuretics. Blood sugars remain stable on his current diabetic medications. 07/21/14 Seen by Jean-Pierre Pinto PA-C. The patient does not report fever, chills or URI symptoms. His wound drainage has been stable. 07/16/[address] Nice. The patient reports persistent but minimal drainage from the right foot plantar ulcer and continues to offload with a walker at all times. His blood sugar are mostly below 150 with a few around 170 the past few days. 07/01/14 The patient reports that he has gained 8lbs in 8 days. Denies SOB. Does not report fever or chills. 06/23/[address] Nice. The patient continues to offload with a knee scooter and walker at all times. He does not report significant drainage from the right plantar foot ulcer. 06/20/[address] Nice. The patient has been offloading his right foot ulcer with a walker and reports less drainage over the past 2 days. He's now off of antibiotics and his blood sugars remain well controlled below 150. 06/11/[address] Nice. The patient reports persistent drainage from the right foot plantar 1st MTPJ ulcer and he completed his course of doxycycline which was started for a MRSA positive culture from the ulcer site. His blood sugars have also been a bit elevated above 150 recently. He does not report fever or chills however. 06/04/14 The patient reports difficulty in offloading his wound due to inability to use crutches due to poor balance. He find the wheelchair difficult to use and his knee scooter is not rated for his weight. He denies fever, chills or URI symptoms. 05/28/14 The patient's been attempting to offload with a knee scooter but is concerned it may not be appropriate or stable based on his weight. He does not report increased drainage from he right plantar 1st MTPJ ulcer and his blood sugars remain well controlled below 120. 05/21/14 The patient reports only minimal sanguinous drainage from his right foot plantar ulcer and has been offloading it by minimizing his walking. He's also completed a course of doxycycline that was given for a coag negative staph wound culture from the ulcer. He states his blood sugars are consistently below 120 and does not report hypoglycemia. 05/13/14 The patient reports minimal drainage from his right foot plantar ulcer. His recent wound culture from the site returned coag negative Staph and Diptheroids. 05/02/14 The patient reports less drainage from the right plantar foot ulcer and continues to off loading by minimizing walking and wearing a post-op shoe. 04/29/14 The patient continues to wear his surgical boot with the cutout for his right foot plantar diabetic ulcer. He reports no increase in drainage. 04/25/14 The patient reports minimal bloody drainage on the right foot plantar ulcer dressing that was placed yesterday. He does not report any drainage from the previously healed lateral foot ulcer. His edema in the right leg persists despite wearing compression stockings daily and his blood sugars remain well controlled below 120 with his last A1c approx 2 months ago at 7.4. 04/22/14 The patient reports no increase in drainage from his wounds today. He has been faithfully wearing his orthopedic boot with the cut-out area around his 5th MT ulcer. 04/15/14 The patient reports no increase in drainage from his wounds today. He reminds me that a TCC was the cause of his 5th MT ulcer and he is not excited about trying a TCC again. He is interested in HBOT if it will be beneficial to his wounds. 04/09/14 The patient reports increased drainage from his right 5th MT ulcer and feels his surgical boot he's been wearing for off loading may have caused pressure to the area. His blood sugars have improved and he also reports a 5 lb weight loss after doubling his dose of lasix over the past week. Of note, he did not liaise with his PCP prior to doing this. 04/04/14 The patient states that he was walking a bit more than usual yesterday but notes some sanguinous drainage on his plantar 1st MTPJ dressing for the past few days. He's also put on 7 lbs in the past week and feels his legs are more swollen than usual. He does not report chest pain, shortness of breath, or orthopnea. His blood sugars are also up a bit around 180. He's compliant with both his diabetes regimen and his diuretic therapy. 03/28/14 The patient reports no increased drainage or other complications from his right foot diabetic ulcers. 03/21/14 The patient reports minimal drainage from his right foot diabetic ulcers. He continues to minimally weight bear using a surgical boot and a walker. 03/14/14 The patient does not report increased drainage or other new issues regarding his right 5th MTPJ and right 1st MTPJ plantar ulcers. His blood sugars remain more elevated than usual with some between 150 and 180. 03/07/14 The patient reports no fever or increased right foot wound pain or drainage. 02/28/14 The patient reports that his blood sugar this morning is a bit elevated around 160 but has mostly been below 140 over the past few days. He's been off antibiotics for 3 days now and reports modest drainage from the right 5th MT ulcer while dressing changes are being done every two days. 02/24/14 The patient does not report any new issues regarding his right foot ulcers including increased drainage, fever, or chills. He completed his course of doxycycline yesterday. 02/17/14 The patient reports moderate yellow drainage from the right foot 5th MTPJ ulcer. He's completed a course of doxycycline and does not report fever or chills but states his blood sugars remain higher then normal in the 170's. His wound culture was positive for Enterobacter and his ESR was elevated at 41 and CRP at 2.7. 02/06/14 The patient does not report increased drainage from the right 5th MTPJ ulcer nor does he report fever or pain. He continues to off load with a walker and minimizing walking. He continues on doxycycline which was started empirically at his last visit and his culture has since grown Enterobacter which should be susceptible to doxy based on sensitivities. His xray of the foot was not concerning for osteomyelitis however his ESR and CRP are both moderately elevated. He also feels his legs are more swollen than usual and he continues to take his lasix as scheduled. 02/03/14 The patient does not report fever, chills, or pain in the right foot however when the TCC was removed today he's noted to have a sizable increase in the diameter and depth of what was a small 5th MTPJ ulcer. 01/14/14 The patient reports no new problems regarding is right diabetic foot ulcer. 12/31/13 The patient reports minimal serous drainage from his right 5th MTPJ ulcer and states he continues to off load his foot as much as possible. He does not report pain or drainage from the site of his right 1st MTPJ ulcer. 12/19/13 The patient tolerated with TCC without any complaints but there appears to be a small area of erythema over the right 5th MTPJ. He notes his blood sugars are typically below 120 and his A1c last week was 7.4. 12/13/13 The patient has no complaints regarding his TCC nor his plantar ulcer. 12/11/13 The patient returns for placement of a TCC today. He does not report any new problems regarding is plantar ulcer. 12/03/13 The patient states his plantar ulcer drainage is stable and he's continued to not use a cut-out foam doughnut over the ulcer. 11/26/13 The patient has kept the foam dressing in place from the last visit and has not used a cut-out foam dressing which we felt caused some deterioration of the foot ulcer. He has some mild drainage but no pain. 11/22/13 The patient returns for review of his plantar ulcer and callus that seems to be deteriorating despite an adjustment to his boot and off loading measures. The patient reports his callus accumulation is in spite of daily kerasal applications. Patient reports a new small wound on the left second toe. Josue states that it might be related to the brace. Patient had brace modified to help off load. 11/06/13 Josue states he was able to schedule with the prosthetic doctor tomorrow at noon. He reports no new problems or concerns. He also says that he is done with physical therapy since yesterday as insurance will not cover it any longer. 10/31/13 The patient reports he received his dressing supplies. Dressings changes are going well and no new problems are reported. He saw his cleaner carpet and upholstery, Dr. Solitario, on Monday for a check up and had and x-ray of the foot. 10/24/13 Josue reports he has been staying off of his feet as much as possible. He has been changing the dressing as ordered and states there has been just a small amount of drainage. He recently ran out of his dressings and will need more ordered or the balance sent home with him. 10/17/13 Patient states he has no new problems or concerns. He did have a small increase in drainage the other day but he had walked more than normal the day before. 10/09/13 Josue states he has no new issues. Dressing changes are going well. 10/02/13 Josue states there have been no new issues with dressing changes. They have been changed once since his last visit. No complaints of pain with the wound. 09/20/13 Josue was discharged from wound care September 05. States that he has been using pumice stone on callus area where had previous wound and may have been too aggressive. Also has been on feet more and having increase in lower extremity edema. Continues to wear the tetragrip F he had received in the clinic 6 hours per day but has not ordered any yet. 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 Asking about getting compression stockings from drug store for continued use. 09/05/13 Patient states he has set up physical therapy for the problems with his knee. He starts these treatments on 09/11. There has been no new issues with his wound and he changes the dressings about every two days. He reports little to no drainage. 08/06/13 States no new problems with wound area. Been using kerosol daily. 08/19/13 Patient states he twisted his knee a week ago, and it is effecting his walk slightly. He also complains of more edema in his legs, and has an appointment with his PCP tomorrow regarding the issue. No new problems or concerns with his wound. No new problems or concerns. Patient states he changed the dressing a few times this last week. Saw Dr. Solitario this past week for check up with no change o his management. 07/26/13 The patient has had new brace for one week and so far it is working out well. No other complaints at this time. 07/18/13 Patient got brace for foot and leg yesterday. No problems or concerns. 07/11/13 No problems or concerns. Changed dressing twice since last visit 07/04/13- Pt went to his PCP and his lasix were increased from 20mg to 40mg. He states his edema has decreased since then. Pt's diabetic foot brace (decreases lateral movement to reduce pressure on the sides of his feet) will arrive in about another week. 06/20/13- Pt reports increased edema in his feet for the last week, he has been walking more, but also sitting with his feet down more. With the increase in exercise he states his back has been hurting. On Sunday 06/18 pt went to [facility],and had his ankle brace fitting. 05/31/[address] Green this am. Changed dressing twice this week. Saw personnel quality assurance auditor (in [place]) on Monday. Considering ankle brace 05/24/13 states started walking program at 5 minutes at a time and taking the bus to clinic apt. 11/08/12 Pt is changing dressing every two days. Is concerned about the edema to the left leg that had the cellulitis. States it is warm. 11/15/12 patient has been having more nerve pain. He has been changing his dressing either every day or every other day. 11/22/12- Patient continues to change dressing about every day. No problems noted. Patient changing dressing about q o day. Thinks wound is less deep. 12/07/12 Pt only changed dressing twice since last visit. No concerns or problems. 12/18/12 When cleaning wound was able to aspirate large purlent sero-sang fluid from site. Pt states he feels it was doing better. 12/24/12 Decreased drainage and pt states he feels the wound is doing well. 12/31 Pt states he has had decreased draiange from wound. Pt denies pain. 01/07/13Pt states the kerasol didn't really do much, but admits he was only applying it every other day and is not sure what his expectations should be. He believes he may have bumped a toe on the left foot and has been concerned about some bruising there but admits it is getting better. Still does not have his new shoes and says he is exploring other options like disability. 01/21/13 feeling well since last visit. feels he may have bumped third toe so wants it to be seen. Level 2- 3 neuropathic pain in right foot 02/27/12 Patient changing bandaid on foot and applying kerasol every three days. Patient got new PCP and saw him yesterday. Patient states things are going well with the wound. 03/12/[address] Green for edema and will see him tomorrow for follow up.03/25/13 states has drainage from bottom of foot. concerned about new wounds Sates he changes dressing every 2 days. Changed this AM as it came off. Using Ca alginate and foam. States no drainage last night 04/19/13 changes dressing every 2-3 days. no problem. Has appt with Dr. Solitario 04/30/13 and new shoes have arrived. To be fitted next week 04/26/13 Is wearing new shoes and states they are working well.Changed dressing twice this week 05.03.[address] Solitario last week. will see again in [address] Green started antibiotic for sinus infection States sinuses not a lot better. Has started Lakshmi D, helping some. States wound about same. Changing dressing 2 x this week as dressing came off. States added collagen one time. Past Medical History This information was obtained from the patient Patient has a medical history of: Left lower extremity cellulitis - 10/15/2012 Diabetic foot ulcer - 09/27/2013 (Hernandez grade 2; right plantar surface; Hernandez grade III (Enterobacter positive wound culture 02/03/14), lateral right 5th MTPJ originally dx 12/24/13; MRSA positive culture 06/04/14 ) Chronic venous hypertension Type II Diabetes Hypertension Morbid Obesity Kidney Stones Hx MRSA Diabetic neuropathy Hallux valgus (right 1st toe) UTI (hospital admit) Cellulitis of legs (June and September 2012- hospital admit) Cataract surgery (10/13/15) Diabetic Neuropathy Complaints and Symptoms This information was obtained from the patient Patient complains of: General Notes: I have reviewed and concur with the Review of Systems and Past Family Social History documents completed by the clinician, I have reviewed and concur with the Wound Assessment document completed by the clinician Cardiovascular (Central/Peripheral): Lower extremity (leg) swelling Integumentary (Hair/Skin/Nails): Open Sore Musculoskeletal: Deformities, Muscle Weakness Neurological: Abnormal Gait, Loss of Protective Sensation, Tremors Prior Wound History: Bleeding, Drainage Patient denies complaints or symptoms related to: Cardiovascular (Central): Irregular heart beat Cardiovascular (Central/Peripheral): Lower extremity (leg) resting pain Constitutional Symptoms (General Health): Chills, Fever, Marked Weight Change Ear/Nose/Mouth/Throat: Hearing Loss / Aid Gastrointestinal (GI): Nausea / Vomiting Hematologic/Lymphatic: Bleeding / Clotting Disorders, Bleeding Tendency Musculoskeletal: Assistive Devices Prior Wound History: Erythema, Malodor, Pain Psychiatric: Memory Loss Respiratory: Oxygen Use, Shortness of Breath OBJECTIVE Constitutional BP elevated; Afebrile; Alert and in no distress. Well developed. Alert. Clean appearing.. Height/Length: 71 in (180.34 cm), Weight: 353.4 lbs (160.64 kgs), BMI: 49.3, Temperature: 97.8 ?F (36.56 ?C), Pulse: 85 bpm, Respiratory Rate: 18 breaths/min, Blood Pressure: 146/67 mmHg, Capillary Blood Glucose: 123 mg/dl, Pulse Oximetry: 97 %. Vital Signs Notes: Glucose per patient, Ears, Nose, Mouth, and Throat: No clinically significant hearing loss on informal examination. Respiratory: No respiratory distress. Even respirations and without use of accessory muscles.. Cardiovascular: 1+ left lower extremity edema. Gastrointestinal (GI): Obese. Nondistended.. Musculoskeletal: Moderate right foot Charcot deformity; diffuse echymosis involving dorsum of forefoot and extending across all toes; non-tender across same; 1st MTPJ valgus deformity unchanged from prevous review. Integumentary (Hair, Skin) Refer to appropriate clinician wound documentation for this visit; right foot ulcer extends to subcut with base partially covered with pink granulation, remainder fibrin and slough. Wound #6 Right, Plantar Foot is a chronic Hernandez Grade 2 Diabetic Ulcer and has received a status of Not Healed. Subsequent wound encounter measurements are 0.8cm length x 0.6cm width x 0.3cm depth, with an area of 0.48 sq cm and a volume of 0.144 cubic cm. No tunneling has been noted. No sinus tract has been noted. No undermining has been noted. There is a large amount of sero-sanguineous drainage noted which has no odor. The patient reports a wound pain of level 0/10. The wound margin is callus. Wound bed has No epithelialization, No eschar, No slough, Yes bright red, firm granulation. The periwound skin color is normal. The periwound skin exhibited: Callus, Moist. The periwound skin did not exhibit: Brawny Induration, Edema, Excoriation, Induration, Crepitus, Fluctuance, Friable, Rash, Dry/Scaly, Maceration. The temperature of the periwound skin is WNL. Periwound skin does not exhibit signs or symptoms of infection. Local Pulse is Palpable. Neurological: Cranial nerves grossly intact with symmetric function normal by informal observation.. ASSESSMENT Active Problems ICD-10 (Encounter Diagnosis) E11.621 - Type 2 diabetes mellitus with foot ulcer (Encounter Diagnosis) L97.512 - Non-pressure chronic ulcer of other part of right foot with fat layer exposed (Encounter Diagnosis) A52.16 - Charcot's arthropathy (tabetic) PROCEDURES Wound #6 Wound #6 (Diabetic Ulcer) is located on the right, plantar foot. A skin/ subcutaneous tissue level surgical debridement with a total area debrided of 0.48 sq cm was performed by Stephen Nice MD. Subcutaneous was removed along with devitalized tissue: exudate and slough. The following instrument(s) were used: curette. Pain control was achieved using 4% Lido. A time out was conducted prior to the start of the procedure. A moderate amount of bleeding was controlled with silver nitrate. The procedure was tolerated well with a pain level of 0 throughout and a pain level of 0 following the procedure. Post Debridement Measurements: 0.8cm length x 0.6cm width x 0.3cm depth; with an area of 0.48 sq cm and a volume of 0.144 cubic cm; Additional Information Muscle fascia or bone removed and sent to pathology?: No PLAN Wound Orders: Wound #6 Right, Plantar Foot Anesthetic Topical Xylocaine to wound bed. - In clinic only. Cleanser Cleanse Wound: - Normal saline and gauze. May Shower. - Do not get wound wet with tap water. Use cast protector when showering. Topical Treatments Antibiotic/Antimicrobial Ointment/Cream. - Iodosorb to wound base. Dressings Cover and secure with: - Foam and hypafix tape. Change Dressing: - Every other day. Additional Orders: Off-Loading Keep weight off: - Right foot as much as possible. Use Knee scooter when able. Use/Wear when Walking: - Offloading shoe. Compression/Edema Control Elevation of leg(s) above the level of the heart when sitting. Avoid prolonged standing in one place. - Please avoid standing or walking for long periods of time. Knee-high gradient compression stockings. - Tetragrip F stockings to both legs. On in the morning and off at night. Follow-Up Appointments Return Appointment: - - Eval . for next visit. Fridays Other information: If you develop fever, chills, increased pain, drainage, redness or swelling please call our office. If after hours, respond to the ER. Should you experience any significant changes in your wound(s) or have any questions regarding your home care instructions please contact the wound center @ [phone]. If after hours, contact your primary care physician or go to the hospital emergency room. Scribing Attestation I attest, as the nurse, that I scribed these orders for the physician. Radiology: X-ray, foot - Right foot x-ray today General Notes: X- Ray Today of Right Foot. I've reviewed the clinician's documentation and agree with the evaluation and plan as written. In addition, the patient's ulcer demonstrates evidence of non-viable devitalized tissue which will continue to benefit from sharp debridement to help promote granulation and expedite healing. Also, I've ordered an xray of the right foot due to the considerable ecchymosis and his Charcot arthropathy which places him at risk for a pathologic fracture. Electronic Signature(s) Signed By: Date: Stephen Nice MD 09/20/2017 07:32:51 Entered By: Stephen Nice on 09/20/2017 07:24:24
== END ==
PROVIDERS: PCP Family Medicine; Visit Provider Internal Medicine
DX: E11.621 Type 2 diabetes mellitus with foot ulcer (principal); L97.512 Non-pressure chronic ulcer of other part of right foot with fat layer exposed; A52.16 Charcot's arthropathy (tabetic)
CPT/HCPCS: 11042

== ENCOUNTER → 2017-09-19 12:53 | Outpatient (CLI) | payer MEDICARE, OTHER, SELFPAY ==
--- NOTE | 2017-09-19 | DI.RAD.S_ITS ---
PROCEDURE: XR FOOT RT MIN 3V INDICATIONS: Charcot's arthropathy (tabetic), evaluate right 1st toe, metatarsals TECHNIQUE: 3 views of the foot were acquired. COMPARISON: [facility], , FOOT 3V RIGHT, 03/24/2017, 11:18. FINDINGS: Bones: Moderate hallux valgus metatarsus primus varus alignment and medial bunion redemonstrated. Mild first MTP diffuse interphalangeal joint narrowing. Mild degenerative changes in the midfoot. Prior amputation of the second digit from the metatarsal head level. Intra-articular fracture involves the base of the first proximal phalanx with no significant displacement or angulation. Soft tissues: No tibiotalar joint effusion. Achilles tendon appears normal. IMPRESSION: 1. Intra-articular fracture involving the base of the first proximal phalanx. 2. Hallux valgus alignment and medial bunion. 3. 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 Dictated by: Celestine [facility] Interpreted: Cyndee Rogers MD on 09/19/2017 at 13:27 Approved by: Cyndee Rogers MD, PhD on 09/19/2017 at 15:59
== END ==
PROVIDERS: PCP Family Medicine; Visit Provider Internal Medicine
DX: A52.16 Charcot's arthropathy (tabetic) (principal); M20.11 Hallux valgus (acquired), right foot; S92.411A Displaced fracture of proximal phalanx of right great toe, initial encounter for closed fracture; M21.611 Bunion of right foot; M19.071 Primary osteoarthritis, right ankle and foot; E11.621 Type 2 diabetes mellitus with foot ulcer; L97.512 Non-pressure chronic ulcer of other part of right foot with fat layer exposed
CPT/HCPCS: 11042; 73630

== ENCOUNTER → 2017-09-20 08:19 | Outpatient (REF) | payer MEDICARE, OTHER, SELFPAY ==
[2017-09-20 08:48] LABS: Add Manual Diff / Slide Review NO; Eosinophils Percent Auto 14.4 % (2-4); Hematocrit 31.2 % (41-53); Hemoglobin 10.7 g/dL (13.5-17.5); Lymphocytes Percent Auto 40.5 % (25-40); Mean Corpuscular HGB Conc 34.2 % (30-36); Mean Corpuscular Hemoglobin 30.3 PG (26-34); Mean Corpuscular Volume 88.6 fL (80-100); Neutrophils Absolute Auto 2900 /uL (3000-5900); Neutrophils Percent Auto 37.1 % (50-75); Platelet Count 125 X10^3/uL (150-400); Red Blood Cell Count 3.52 X10^6/uL (4.5-5.9); Red Cell Distribution Width 14.3 % (11.6-14.8); White Blood Cell Count 7.7 X10^3/uL (4.5-11.0)
[2017-09-20 09:16] LABS: BUN Creatinine Ratio 17.3 (6-22); Blood Urea Nitrogen 19 mg/dL (9-20); Calcium 9.1 mg/dL (8.4-10.2); Carbon Dioxide 31 mmol/L (22-32); Chloride 100 mmol/L (98-107); Estimated Glomerular Filt Rate > 60.0 mL/min (>60); Glucose 101 mg/dL (80-110); HEMOLYSIS < 15 (0-50); Potassium 3.6 mmol/L (3.4-5.1); Sodium 138 mmol/L (137-145)
== END ==
LOC: LAB 08:19
PROVIDERS: PCP Family Medicine; Visit Provider Family Medicine
DX: E11.9 Type 2 diabetes mellitus without complications (principal)
CPT/HCPCS: 36415; 80048; 85025

== ENCOUNTER → 2017-09-22 09:19 | Outpatient (CLI) | payer MEDICARE, OTHER, SELFPAY ==
--- NOTE | 2017-09-22 | OV.WND_ITS ---
Progress Note Details Patient Name: Josue Mesa Patient Number: [id number] PatientPatientDate: 09/22/2017 Clinician: Janel Daly Clinician Cosigner: Estephanie Grant Physician / Riffler Tender: Stephen Nice SUBJECTIVE Chief Complaint This information was obtained from the patient Diabetic ulcer to right plantar foot and great toe. Allergies Augmentin (Severity: Mild, Reaction: nausea) HPI This information was obtained from the patient 09/22/17. Seen by Dr. Nice. The patient's xray of his right foot showed a 1st MTPJ intra- articular fracture and he was seen by Dr. Solitario who recommended continued offloading with the forefoot surgical offloading shoe but no further intervention at this time. He does not report pain in the foot nor significant drainage associated with the plantar 1st MTPJ diabetic foot ulcer since his last visit. 09/19/17. Seen by Dr. Nice. The patient reportedly fell on Monday injuring his right foot. He was seen by his PCP yesterday who felt it may have been infected and he was started on Keflex. He does not report pain in the foot and is able to bear weight as usual. He also does not report increased drainage associated with the chronic right 1st MTPJ diabetic ulcer since his last visit. 09/15/17. Seen by Dr. Nice. The patient arrived today feeling quite week and shaky and states he was seen in the ER earlier this morning for similar complaints and subsequently discharged to his [facility]MENT. His CT scan and labs were unremarkable however he was unable to leave a urine sample for analysis at that time. His symptoms persist during our visit however there's no confusion or other acute complaints. He's also finished his course of Bactrim that was treating the recent right diabetic foot ulcer infection and he does not report increased drainage for pain at the ulcer site. 09/12/17. Seen by Dr. Nice. The patient does not report increased drainage associated with the chronic right 1st MTPJ diabetic ulcer since his last visit. He also continues on doxycycline for the recent Staph cultured from the ulcer and he does not report adverse side effects. 09/08/17. Seen by Dr. Nice. The patient's now on doxycycline for the recent coag negative Staph culture taken from the chronic right 1st MTPJ diabetic ulcer. He does not report adverse side effects nor increased drainage or pain associated with the ulcer. 09/05/17. Seen by Dr. Nice. The patient does not report increased drainage associated with the chronic right 1st MTPJ nor right 1st toe dorsal diabetic ulcers since his last visit however the nurse reports increased bloody drainage on the dressing and increased maceration and callus along the distal margin of the ulcer. His recent wound culture grew coag negative Staph and he's not currently on antibiotics. 09/01/17. Seen by Dr. Nice. The patient does not report increased drainage associated with the chronic right 1st MTPJ nor right 1st toe dorsal diabetic ulcers since his last visit. 08/29/17. Seen by Dr. Nice. The patient does not report increased drainage associated with the chronic right 1st MTPJ diabetic ulcer since his last visit. He does complain of progressive upper extremity tremors that are most noticeable in the morning and evening and may occur after he takes his metformin. He does not report low blood sugars and he'll bee seeing his PCP today to discuss this. 08/25/17. Seen by Dr. Nice. The patient reports being more active and on a boat over the holiday which was no conducive to using his knee scooter. He feels the right 1st MTPJ ulcer has deteriorated and he has a new ulcer over the dorsum of the right 1st toe now. 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 08/22/17. Seen by Dr. Nice. The patient was seen at [facility] and they provided a new orthotic insert to help better offload the chronic right 1st MTPJ diabetic ulcer while he's wearing his surgical, forefoot offloading show. He does not report increased drainage or pain associated with the ulcer and is using a knee scooter also to help offload. He has a severe valgus deformity which results in heavy callus formation and has required twice weekly debridements which has been effective in gradually promoting the ulcer to heal. He's also been applying topical gentamicin to the ulcer base to treat the recent coag negative Staph culture that was taken due to increased drainage. 08/18/17. Seen by Dr. Nice. The patient's wound culture taken from the chronic right foot diabetic ulcer at his last visit grew an intermediately resistant coag negative Staph and his dressing change and application of gentamicin is taking place only every 2-3 days. He does not report pain in the foot but staff report his dressing as being 'bloody' today. 08/15/17. Seen by Dr. Nice. The patient reports what may be increased drainage on his right foot diabetic ulcer dressings as mentioned by his lawn care professional in assisted living. He's using a knee scooter as recommended and does not report pain in the foot. He's also asking when it will be appropriate to have his right foot orthotic adjusted in his diabetic shoe although he's currently wearing a forefoot offloading shoe at all times. 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 08/11/17. Seen by Jean-Pierre Pinto PA-C. The patient reports stable drainage from his right foot diabetic ulcer. Again his blood sugars have been above 150 since his last visit. 08/08/17. Seen by Jean-Pierre Pinto PA-C. The patient reports no increase in drainage from his right foot diabetic ulcer. His blood sugars this week have reportedly been mostly above 150. 08/04/17. Seen by Dr. Nice. The patient does not report increased drainage associated with the chronic right plantar foot diabetic ulcer since his last visit and he's offloading appropriately as recommended. He also was seen by Dr. Solitario, podiatry, who discussed possible surgical options to address the severe right 1st toe valgus deformity that's complicating the ulcer and contributing to heavy periculcer callus formation however there's no plan of intervention at this time. 08/01/17. Seen by Dr. Nice. The patient does not report increased drainage associated with the chronic right plantar foot diabetic ulcer since his last visit and he's offloading appropriately as recommended. 07/28/17. Seen by Dr. Nice. The patient does not report increased drainage associated with the chronic right plantar foot diabetic ulcer since his last visit and he's offloading appropriately as recommended. We've increased his visits to twice weekly due to the very heavy callus formation that's contributing to the refractory nature of the ulcer. 07/25/17. Seen by Dr. Nice. The patient does not report increased drainage associated with the chronic right plantar foot diabetic ulcer since his last visit and he's offloading appropriately as recommended. Kerasal is not being applied to the periulcer callus and his visits have been decreased to once weekly over the past few weeks while the ulcer has been improving. 07/18/17. Seen by Dr. Nice. The patient does not report increased drainage associated with the chronic right plantar foot diabetic ulcer since his last visit and he's offloading appropriately as recommended. 07/11/17.Seen by Dr. Nice. The patient has been wearing his offloading shoe and using a knee scooter as recommended and does not report significant drainage associated with the chronic right plantar foot diabetic ulcer since his last visit. 07/04/17. Seen by Dr. Nice. The patient has been wearing his offloading shoe as recommended and does not report significant drainage associated with the chronic right plantar foot diabetic ulcer since his last visit. 06/30/17. Seen by Dr. Nice. The patient has been wearing his offloading shoe as recommended and does not report significant drainage associated with the chronic right plantar foot diabetic ulcer since his last visit. 06/27/2017. Seen by Dr. Nice. The patient has been wearing his offloading shoe as recommended and does not report significant drainage associated with the chronic right plantar foot diabetic ulcer since his last visit. His blood sugars are also mostly below 100 now and he's using his knee scooter as well to further optimize offloading. 06/23/2017. Seen by Dr. Nice. The patient does not report pain nor increased drainage associated with the chronic right plantar foot diabetic ulcer since his last visit. He is wearing his offloading shoe as recommended now and his blood sugar control has improved with some below 200. 06/20/2017. Some by Dr. Nice. The patient is not report increased drainage position with chronic right plantar foot diabetic ulcer since last visit. He is now clindamycin for the resistant Staphylococcus haemolyticus positive culture that was taken to the last visit. His blood sugars continued to be elevated and or over 300 earlier this morning despite having his Lantus dose increased recently. He is also wearing his diabetic shoes but not an offloading surgical shoe as I have been recommending. 06/16/17. Seen by Dr. Nice. The patient does not report increased drainage associated with chronic right plantar foot diabetic ulcers since his last visit. His recent wound culture grew a resistant coag negative staph organism. He also met with his primary care provider, Dr. Green, to increase his dosing of Lantus and plans to work with him on dietary measures to help gain better control of his elevated blood sugars. 06/13/17. Seen by Dr. Nice. The patient's blood sugars again are over 300 today and his appointment with his primary care provider to address this. He does not report any acute changes regarding the chronic right plantar foot diabetic ulcer and is using his knee scooter to help facilitate offloading as much as possible. 06/09/17. Seen by Dr. Nice. The patient does not report significant drainage associated with the chronic right plantar foot diabetic ulcer since his last visit. 06/06/17. Seen by Dr. Nice. The patient does not report significant drainage associated with the chronic right plantar foot diabetic ulcer since his last visit and he's lost another 7 lbs since increasing his dose of Lasix due to abnormal weight gain and significant bilateral lower extremity edema. 06/02/17. Seen by Dr. Nice. The patient does not report significant drainage associated with the chronic right plantar foot diabetic ulcer since his last visit. His increase his dose of Lasix and has lost 7 pounds over the past 3 days. This is been done due to the significant increase in leg swelling over the past 2 weeks. 05/30/17. Seen by Dr. Nice. The patient does not report increased drainage associated with chronic right plantar foot diabetic ulcer since his last visit however he does feel that the right foot and leg are swelling considerably over the past few days. We note a 4 pound weight gain since his last visit on Monday and he states is taking his diuretic as prescribed. 05/26/17. Seen by Dr. Nice. The patient does not report increased drainage associated with chronic right plantar foot diabetic ulcers since his last visit. His culture grew a somewhat resistant coag negative staph and he is not currently on antibiotics. 05/23/17. Seen by Dr. Nice. Staff reports some increased drainage on his dressings covering the chronic right plantar foot diabetic ulcer today. His blood sugar is again over 300 and he states he is eating rice and potatoes trying to cut back. He continues offload with his knee scooter as recommended and does not report pain or any other acute ulcer related issues today. 05/19/17. Seen by Dr. Nice. The patient does not report increased pain or drainage associated with chronic right plantar foot diabetic ulcer since his last visit. He is using his knee scooter as recommended and has had significant problems with heavy callus at the site due to a severe right first toe valgus deformity. He is now attending clinic twice weekly for debridement of the ulcer and complicating callous. 05/16/17. Seen by Dr. Nice. The patient does not report increased drainage or pain associated with chronic right plantar foot diabetic ulcer since his last visit. Of note, the patient's blood sugar as 271 today and his A1c was 9.8 in March. 05/12/17. Seen by Dr. Nice. The patient does not report increased pain or drainage associated with chronic right plantar foot diabetic ulcer since his last visit. He is using his knee scooter to help offload the site which is particularly important based on patient's morbid obesity coupled with his severe first MTPJ valgus deformity. 05/09/17. Seen by Dr. Nice. The patient does not report increased drainage or pain associated with the chronic right plantar foot diabetic ulcer since his last visit. He states his blood sugars continue to be above 200 consistently although are improving with compliance to a lower carbohydrate type diet. He was started on metformin about a month ago he complains of some intermittent upper extremity weakness since then and will be discussing this with his primary care provider. He is also awaiting his new diabetic shoes that are being adjusted to help accommodate for his severe right first toe valgus deformity. 05/02/17. Seen by Jean-Pierre Pinto PA-C. The patient reports stable drainage from his right 1st toe ulcer and blood sugars continue to be above goal. 04/25/17. Seen by Jean-Pierre Pinto PA-C. The patient reports his blood sugars have been above 150 this week. He does not report increased drainage from his right 1st toe diabetic ulcer. 04/18/17. Seen by Dr. Nice. The patient does not report increased drainage associated the chronic right first toe diabetic ulcers since his last visit. 04/11/17. Seen by Jean-Pierre Pinto PA-C. The patient reports he is developing more calloused areas on his feet and is concerned about new ulcers occurring. His chronic 1st toe diabetic ulcer has been stable. 04/04/17. Seen by Jean-Pierre Pinto PA-C. The patient reports he has not been able to get his blood sugars below 150. Drainage is reportedly decreased from his diabetic foot ulcer. 03/30/17. Seen by Jean-Pierre Pinto PA-C. The patient reports continued high blood sugars, all above 150. Drainage from his ulcer is not increased. 03/23/17. s Seen by Jean-Pierre Pinto PA-C. The patient reports blood sugars above 150 again this week. He is concerned that something must be going on with an infection as he believes his diet has not changed and thus his sugars should be lower. His wound has had stable drainage. 03/15/17. Seen by Jean-Pierre Pinto PA-C. The patient reports he has had some blood sugars above 150 this week. He reports no increase in drainage from his right 1st toe diabetic ulcer. 03/08/17. Seen by Dr. Nice. The patient was discharged from the hospital recently following treatment for cellulitis associated with the chronic right first toe diabetic ulcer. He grew MRSA from the wound culture and was treated with IV vancomycin and is now on Bactrim. He does not report pain nor significant drainage associated with the ulcer nor side effects from antibiotics. 02/23/17. Seen by Dr. Nice. The patient does not report increased drainage associated the chronic right first toe diabetic ulcers since his last visit. The patient also states that he is more active over the holidays and was unable to use his knee scooter at times while walking outside due to safety concerns. 02/08/17. Seen by Dr. Nice. The patient does not report increased drainage associated the chronic right first toe diabetic ulcers since his last visit. He states he is using his offloading shoe when at home and a knee scooter went out. 02/01/17. Seen by Dr. Nice. The patient does not report increasing pain or drainage associated with chronic right first toe diabetic ulcer since his last visit. 01/25/17. Seen by Dr. Nice. The patient does not report increasing pain or drainage associated with chronic right first toe diabetic ulcer since his last visit. 01/18/17. Seen by Dr. Nice. The patient does not report increasing pain or drainage associated with chronic right first toe diabetic ulcer since his last visit. Of note, the patient's blood sugar is over 260 again today and he admits that it's been significantly elevated for a number of weeks. He has an appointment with his primary care provider to discuss this next week. 01/11/17. Seen by Dr. Nice. The patient does not report increasing pain or drainage associated with chronic right first toe diabetic ulcer since his last visit. He states his blood sugars have been running high recently and he is going to follow-up with his primary care provider in the near future to address this. 01/04/17. Seen by Dr. Nice. The patient does not report increased drainage associated with chronic right first foot diabetic ulcers since his last visit. He's also been applying Kersal to the periulcer as recommended. 12/28/16. Seen by Dr. Nice. The patient does not report increased drainage associated with chronic right first foot diabetic ulcers since his last visit. 12/22/16. Seen by Dr. Nice. The patient does not report increased drainage associated with chronic right first foot diabetic ulcers since his last visit. He's not been applying Kersal to the periulcer callus and does not appear to be using his knee scooter at all times to offload the ulcer. 12/15/16. Seen by Jean-Pierre Pinto PA-C. The patient reports he continues to have blood sugars above 150 this week. He recently saw his PCP, they did not alter his diabetic care plan. His visit was a follow up for an ER visit for chest pain which was negative for NH and was thought to be epigastric in origin. His diabetic ulcer of the right foot has not had increased drainage. 12/06/16. Seen by Jean-Pierre Pinto PA-C. The patient reports that he has found his knee scooter and plans to start using it today. He also reports most of his blood sugars have been above 150. Drainage from his ulcer has been stable. 11/25/16. Seen by Dr. Nice. The patient does not report increased drainage associated with chronic right first foot diabetic ulcers since his last visit. He is now on antibiotics for wound infection and does not report adverse side effects. Of note, he is not yet using a knee scooter nor offloading shoe as we recommended last week. 11/18/16. Seen by Dr. Nice. The patient returns to our clinic and presents with recurrence of a right first MTPJ plantar diabetic ulcer. He states it started a couple weeks ago when he was attempting to remove overlying callus at home. He does not report significant drainage or pain associated with the ulcer and is not currently on antibiotics. He also states his recent A1c was 7.8. His blood sugar in clinic today is 250. 01/11/16 Seen by Jean-Pierre Pinto PA-C. The patient reports no drainage from his chronic right 1st MTPJ joint since his last dressing change. 01/04/16 Seen by Jean-Pierre Pinto PA-C. The patient reports minimal drainage from his chronic right 1st MTPJ ulcer. He has recently seen his PCP and his A1c was 7.7. His lower extremity edema, abnormal weight gain and kidney failure are stable with his diuretics recently being adjusted. 12/28/15. Seen by Dr. Nice. The patient does not report significant drainage associated with the chronic right 1st MTPJ diabetic ulcer since his last visit however he does complain of increasing shortness of breath, fatigue, and an 18lb weight gain over the past week despite taking his diuretics as recommended. He does not report chest pain or cough and his blood sugars remain relatively well controlled with most below 150. 12/16/15. Seen by Dr. Nice. The patient does not report significant drainage associated with the chronic right 1st MTPJ diabetic ulcer since his last visit. He's applying kerasal to the surrounding callus as recommended and offloading nearly at all times using his knee scooter. 12/07/15 Seen by Jean-Pierre Pinto PA-C. The patient reports compliance with his new offloading brace and shoe and has seen minimal drainage from his diabetic foot ulcer since his last visit. 11/30/15. Seen by Dr. Nice. The patient does not report significant drainage associated with the chronic right 1st MTPJ diabetic ulcer since his last visit and he's wearing a combined AFO / diabetic shoe system that he feels may be better offloading the ulcer. 11/23/15 Seen by Jean-Pierre Pinto PA-C. The patient reports that he is wearing his new diabetic shoes and inserts. He is continuing physical therapy for gait training and reports continued difficulty with stairs and occasional bouts of dizziness. He reports stable drainage from his chronic right foot diabetic ulcer. 11/16/15 Seen by Jean-Pierre Pinto PA-C. The patient reports stable drainage from his right foot diabetic ulcer. He also reports that his diabetic shoes and inserts are quite old and worn out. He is ambulating with is 4 wheeled walker and is working with PT for gait training. 11/09/15 Seen by Jean-Pierre Pinto PA-C. The patient reports that he is still using a 4 wheeled walker instead of a 4 footed walker. PT is working with him to improve his gait and balance. Drainage from his right foot ulcer has been stable. 11/02/15 Seen by Jean-Pierre Pinto PA-C. The patient reports no increase in drainage from his chronic diabetic foot ulcer. He has had multiple blood sugars above 150 this week. 10/29/15. Seen by Dr. Nice. The patient was recently discharged from [facility] following treatment of sepsis thought to possibly be related to his chronic right 1st MTPJ diabetic ulcer that grew Enterococcus just prior to his admission. He now feels generally weak , has lost 18 lbs following diuresis, and is residing at home where he's minimizing his weight bearing on the right foot. He does not report significant drainage from the ulcer nor pain and states his blood sugars remain mostly around 150. He also continues on levofloxacin and does not report adverse side effects. 10/14/15. Seen by Dr. Nice. The patient report persistent bloody drainage from the chronic right 1st MTPJ diabetic ulcer and he feels the callus has increased significantly since it was last debrided 2 week ago. He does not report fevers or feeling unwell and states his blood sugars are well controlled with most below 150. He's using his AFO when walking nearly at all times to facilitate offloading the significant right 1st MTPJ valgus deformity. 09/24/15 Seen by Jean-Pierre Pinto PA-C. The patient reports that he is no ran out of lasix due to a mix up at the pharmacy and unavailability of his strength/dose of tablets. He continues trying to offload his ulcer with his wheeled walker and notes stable ulcer drainage. 09/17/15. Seen by Dr. Nice. The patient continues to report some bloody drainage from the chronic right 1st MTPJ diabetic ulcer and he's started reducing his activity and continues to use his knee scooter at home to offload the foot. 09/10/15. Seen by Dr. Nice. The patient states he was more active over the past week and notices increased bloody drainage associated with chronic right first MTPJ diabetic foot ulcer. He continues to wear his AFO and states his blood sugars are mostly below 150. 09/03/15. Seen by Dr. Nice. The patient does not report significant drainage associated with the chronic right first MTPJ diabetic ulcer over the past week. He does feel that the callus smaller than on previous visits and is wearing his AFO at all times. Of note, he 's now in doxycycline to treat the recent coag negative Staph cultured from the ulcer at his last visit. 08/27/[address] Nice. The patient reports increase bloody drainage associated with the chronic right foot 1st MTPJ diabetic ulcer and he feels his activity has increased due to physical therapy and increased mobility over the past week. He does not report pain at the ulcer site, fevers, or feeling unwell in general. 08/20/[address] Nice. The patient does not report significant drainage associated with the chronic right foot 1st MTPJ diabetic ulcer over the past week and he's using a knee scooter as much as possible when mobilizing to offload the foot. His blood sugars also remain relatively well controlled with most below 150. 08/13/[address] Nice. The patient does not report significant drainage associated with the chronic right foot diabetic ulcer over the past week and he's offloading using a knee scooter as recommended. His blood sugars remain relatively well controlled with most below 150. 08/06/[address] Nice. The patient reports recurrence of some drainage from the chronic right foot diabetic ulcer over the past few days and states he's been more active with physical therapy. His blood sugars remain well controlled with most below 150 and he's wearing his AFO when away from the house and using a knee scooter most of the time while at home to facilitate offloading. He's also applying Kerasal to the callus in the periwound area as recommended. 07/23/[address] Nice. The patient does not report drainage from the chronic right 1st MTPJ diabetic ulcer over the past week and he's using his new AFO and knee scooter to offload the foot. 07/16/[address] Nice. The patient does not report pain or drainage from the chronic right 1st MTPJ diabetic ulcer and he's wearing his newer AFO while offloading with a knee scooter most of the time. 07/09/[address] Nice. The patient does not report drainage or pain associated with his chronic right foot 1st MTPJ diabetic ulcer and he's been offloading by using a knee scooter when mobilizing. His visual design lead is present today as well to discuss possible adjustments to his AFO with the goal of reducing callus formation that's in part caused by his significant right 1st toe valgus deformity. He also states his blood sugars remain well controlled below 150 consistently. 07/03/[address] Nice. The patient does not report significant drainage from the chronic right foot diabetic ulcer and he's offloading by using his knee scooter. His blood sugars also remain relatively well controlled around 150 consistently. 06/26/[address] Nice. The patient report some continued bloody drainage from the chronic right 1st MTPJ diabetic ulcer however he does not report associated pain , fevers or feeling unwell. His blood sugars remain consistently below 150 and he's using his walker and knee scooter for offloading as recommended. He's also been actively working with his visual design lead in hopes of better offloading the ulcer and address his significant callus formation and left 1st MTPJ valgus deformity. 06/19/[address] Nice. The patient does not report pain associated with his chronic right 1st MTPJ diabetic ulcer however he states some bloody drainage persists on the dressings. He does not report fevers or feeling unwell and states his blood sugars are well controlled below 150 consistently and he's using a knee scooter and walker to offload the ulcer when mobilizing. He also does not report pain or drainage associated with the left 2nd toe wound. 06/11/[address] Nice. The patient was recently discharged from [facility] following a fall at home that resulted in a broken rib. Regarding his chronic right 1st MTPJ diabetic ulcer he does not report significant drainage and has been offloading through bed rest and using a knee scooter while at home. His blood sugars also remain well controlled with most below 150. He also reports a new wound on the dorsum of the left 2nd toe that he believes occurred during his fall. He does not report associated pain or significant drainage. 05/28/[address] Nice. The patient reports some increased bloody drainage from the chronic right 1st MTPJ diabetic foot ulcer over the weekend associated with a new 'soft' area along the distal margin. He's been more active the past the past few days but states he's using his knee scooter to offload at all times. His blood sugars also remain well controlled with most around 120 and he's no longer on antibiotics. He also continues to wear his old AFO but states there was a recent adjustment of a cut out lined with 'soft' plastic in the area of the ulcer. 05/21/[address] Nice. The patient report less drainage from the chronic right foot 1st MTPJ diabetic ulcer over the past week. He's completed his course of doxycycline and he continues on fluconazole for the recent Alma Delia positive wound culture. He's also reverted back to using his previous AFO while his newer one is adjusted to try to address the recent significant increase in callus formation that's occurred. His blood sugars also remain well controlled under 150 consistently and his recent episodes of hypoglycemia has resolved with an adjustment of his insulin regimen. 05/14/[address] Nice. The patient reports less drainage on the dressings covering the chronic right 1st MTPJ diabetic ulcer since starting doxycycline for a coag negative Staph wound culture along with fluconazole for the alma delia positive culture. His blood sugars remain well controlled below 120 and his insulin has been decreased due to the recent episodes of hypoglycemia. His diuretic has also been decreased as he's lost considerable water weight over the past month. 05/07/[address] Nice. The patient continues to report modest bloody drainage on the dressing covering the chronic right 1st MTPJ diabetic ulcer and he continues to limit his walking but has not been using a knee scooter or walker around the house to facilitate offloading. His blood sugars remain well controlled mostly below 150. 04/30/[address] Nice. The patient continues to report bloody drainage on his right foot diabetic ulcer dressing and he's feeling a bit unwell in general without reporting specific symptoms. He also continues to have intermittent low blood sugars in the 50-60' s and has not discussed this issue with his PCP recently. He's wearing his AFO daily but admits to having difficulty using his walker at all times due to limited space in his new apartment. 04/27/15 Seen by Jean-Pierre Pinto PA-C. The patient reports nonspecific malaise for the past few days. Last night, he reports feeling to tired, weak and shaky to watch TV and went to bed very early. His malaise has been increasing over the past 1-2 weeks and he has frequently been monitoring his blood sugar. His blood sugars are lower than normal lately but never below 100. He has been reducing his insulin dosing in the past 2 weeks to compensate for the lower numbers. He continues to loose weight while continuing to take Lasix and metolazone. 04/23/[address] Nice. The staff and patient continue to report at least moderate serosanquinous drainage from the chronic right 1st MTPJ diabetic ulcer. His blood sugars have been well controlled over the past week with most below 150. He does report being more active than usual while he's been moving to his new home and he also states he continues to loose weight following a recent increase in his diruetics. His wound culture from the last visit reported heavy Diptheroids and he's not currently on antibiotics. 04/20/15 Seen by Jean-Pierre Pinto PA-C. The patient reports that he has moved house and has been on his feet much more so as a consequence. He reports increased drainage from his right plantar foot diabetic ulcer. In addition he believes he struck it against a hard surface when moving. He has had no significant pain with weightbearing but is insensate in this area. 04/15/[address] Nice. The patient reports continued weight loss, and decreasing leg swelling, since starting metolazone totaling about 20 lbs. He also feels the chronic right 1st MTPJ diabetic ulcer has been draining increasing amounts of sanguinous fluid. His blood sugars remain well controlled with most below 120 and he does not report fever or feeling unwell. 03/25/[address] Nice. The patient states he walked a considerable amount yesterday and now reports some bleeding from the chronic right 1st MTPJ diabetic foot ulcer. He also continues to report increased weight gain and now some shortness of breath when walking short distances. He has a low grade fever today but does not report a cough or feeling unwell otherwise. 03/11/2015 Seen by Jean-Pierre Pinto PA-C. The patient's weight has increased 10 lbs in the past week. He reports increased shortness of breath with exertion. He denies chest pain, jaw, neck, shoulder pain or shortness of breath at rest. He has been compliant with his diuretics. His ulcer drainage has been stable. 03/04/2015 Seen by Jean-Pierre Pinto PA-C. The patient is wearing his newly adjusted AFO and reports an increase in walking since last visit. He was unaware that his temperature was elevated and reports no URI symptoms such as cough or sore throat. 02/24/2015 Seen by Jean-Pierre Pinto PA-C. The patient believes his ulcer has now been draining more despite trying to offload the ulcer. 02/11/[address] Nice. The patient reports less drainage from the chronic right 1st toe diabetic ulcer and he's still waiting for approval for his new AFO. 02/04/[address] Nice. The patient feels the drainage from the right 1st MTPJ ulcer has decreased since last week and he's scheduled to see Dr. Solitario tomorrow to review his foot deformity and recurrent callus formation at the site of the ulcer. 01/30/[address] Nice. The patient returns to clinic and reports recurrence of the recently healed right 1st MTPJ diabetic foot ulcer with new moderate drainage and significant callus formation. He's not yet re-established with Dr. Solitario, podiatry, due to insurance issues and is awaiting approval for an adjustment for his AFO. His blood sugars remain controlled below 150 mostly and he does not report pain in the foot or fevers. 01/12/[address] Nice. The patient does not report drainage from the right 1st toe MTPJ ulcer and he's scheduled to have his new AFO fitted this week. 01/05/[address] Nice. The patient does not report drainage associated with the right 1st MTPJ diabetic foot ulcer however he states he has had some intermittent, very brief 'shooting' pain at the site of the ulcer the past few days. His blood sugars also remain between 120 and 150 mostly. 12/29/[address] Nice. The patient does not report drainage from the chronic right 1st MTPJ diabetic foot ulcer and he offloads using a walker and surgical shoe at all times except for when he wears a slipper around his small apartment. 12/22/[address] Nice. The patient does not report significant drainage from the right 1st MTPJ diabetic foot ulcer and he states his blood sugars are still in the 150 range with some over 180. 12/10/[address] Nice. The patient does not report significant drainage from the right 1st MTPJ diabetic foot ulcer. 12/04/[address] Nice. The patient does not report any drainage from the chronic right 1st MTPJ diabetic foot ulcer and he's still waiting for insurance approval for a custom, articulating AFO. His blood sugars also remain relatively well controlled below 150 consistently. He also continues to apply Kerasal to the associated callus daily. 11/20/[address] Nice. The patient's been feeling unwell the past week and feels he may have lost as much as 10 lbs due to poor oral intake. Otherwise he does not report any new problems regarding his right 1st MTPJ plantar diabetic ulcer. 11/07/[address] Nice. The patient reports only scant drainage from the right plantar diabetic foot ulcer. He's been offloading as recommending with a walker and is awaiting a approval for an articulating AFO. His blood sugars remain mostly well controlled below 150. 10/31/14 Seen by Jean-Pierre Pinto PA-C. The patient feels he has reached another plateau with regard to his wound healing. His right plantar diabetic ulcer continues to drain and has not improved recently. He is wearing his brace and reports compliance with offloading. 10/21/[address] Nice. The patient reports only scant drainage from his right 1st plantar surface MTPJ diabetic foot ulcer. He continues to offload with a frame walker and his blood sugars are moderately well controlled with most below 150. 10/14/[address] Nice. The patient does not report significant drainage from the right 1st plantar MTPJ ulcer. Of note, when discussing his blood sugars he mentions he's on both 70/30 insulin as well as Lantus and he frequently has blood sugars in the 150-200 range. 10/07/[address] Nice. The patient reports some modest drainage from the right 1st MTPJ plantar ulcer but no pain, erythema, or swelling. His blood sugars are mostly below 150 and he offloads with his AFO. 09/30/14 Seen by Jean-Pierre Pinto PA-C. The patient reports continued compliance with his AFO and he is trying to offload. He is scheduled now with PT for gait training and knee strengthening. He reports his knee is still sore at times and he feels unstable at times when using his offloading devices and AFO. 09/23/[address] Nice. The patient reports only minimal drainage from the right plantar 1st MTPJ ulcer. 09/16/14 Seen by Jean-Pierre Pinto PA-C. The patient continues to use his AFO, offloading shoe, knee scooter and frame walker to offload his wound. 09/09/14 Seen by Jean-Pierre Pinto PA-C. The patient has been wearing his AFO and offloading shoe together, with the added padding as designed by Sahra BOYD of [facility]. He reports that he feels unsteady and that his knee has felt strained and he discontinued using the brace as he is concerned that he has, or will, re-injure his right knee. He also is having difficulty using his knee scooter with the brace. One year ago , while attempting to offload his foot he did injure his knee and required physical therapy to recover. 08/19/14 Seen by Jean-Pierre Pinto PA-C. The patient's weight is down 10 lbs from his previous visit. His twice daily naproxen has been discontinued by his PCP in an effort to reduce his lower extremity edema. 08/15/14 Seen by Jean-Pierre Pinto PA-C. The patient continues to have weight fluctuations and large amounts of weight gain in short periods of time despite increased diuretic usage. 08/04/14 Seen by Jean-Pierre Pinto PA-C. The patient has been taking his Levaquin and again reports to the clinic with a low grade fever. He reports nearly daily application of Kerasal and his weight and edema have been stable on a higher dose of diuretics. Blood sugars remain stable on his current diabetic medications. 07/21/14 Seen by Jean-Pierre Pinto PA-C. The patient does not report fever, chills or URI symptoms. His wound drainage has been stable. 07/16/[address] Nice. The patient reports persistent but minimal drainage from the right foot plantar ulcer and continues to offload with a walker at all times. His blood sugar are mostly below 150 with a few around 170 the past few days. 07/01/14 The patient reports that he has gained 8lbs in 8 days. Denies SOB. Does not report fever or chills. 06/23/[address] Nice. The patient continues to offload with a knee scooter and walker at all times. He does not report significant drainage from the right plantar foot ulcer. 06/20/[address] Nice. The patient has been offloading his right foot ulcer with a walker and reports less drainage over the past 2 days. He's now off of antibiotics and his blood sugars remain well controlled below 150. 06/11/[address] Nice. The patient reports persistent drainage from the right foot plantar 1st MTPJ ulcer and he completed his course of doxycycline which was started for a MRSA positive culture from the ulcer site. His blood sugars have also been a bit elevated above 150 recently. He does not report fever or chills however. 06/04/14 The patient reports difficulty in offloading his wound due to inability to use crutches due to poor balance. He find the wheelchair difficult to use and his knee scooter is not rated for his weight. He denies fever, chills or URI symptoms. 05/28/14 The patient's been attempting to offload with a knee scooter but is concerned it may not be appropriate or stable based on his weight. He does not report increased drainage from he right plantar 1st MTPJ ulcer and his blood sugars remain well controlled below 120. 05/21/14 The patient reports only minimal sanguinous drainage from his right foot plantar ulcer and has been offloading it by minimizing his walking. He's also completed a course of doxycycline that was given for a coag negative staph wound culture from the ulcer. He states his blood sugars are consistently below 120 and does not report hypoglycemia. 05/13/14 The patient reports minimal drainage from his right foot plantar ulcer. His recent wound culture from the site returned coag negative Staph and Diptheroids. 05/02/14 The patient reports less drainage from the right plantar foot ulcer and continues to off loading by minimizing walking and wearing a post-op shoe. 04/29/14 The patient continues to wear his surgical boot with the cutout for his right foot plantar diabetic ulcer. He reports no increase in drainage. 04/25/14 The patient reports minimal bloody drainage on the right foot plantar ulcer dressing that was placed yesterday. He does not report any drainage from the previously healed lateral foot ulcer. His edema in the right leg persists despite wearing compression stockings daily and his blood sugars remain well controlled below 120 with his last A1c approx 2 months ago at 7.4. 04/22/14 The patient reports no increase in drainage from his wounds today. He has been faithfully wearing his orthopedic boot with the cut-out area around his 5th MT ulcer. 04/15/14 The patient reports no increase in drainage from his wounds today. He reminds me that a TCC was the cause of his 5th MT ulcer and he is not excited about trying a TCC again. He is interested in HBOT if it will be beneficial to his wounds. 04/09/14 The patient reports increased drainage from his right 5th MT ulcer and feels his surgical boot he's been wearing for off loading may have caused pressure to the area. His blood sugars have improved and he also reports a 5 lb weight loss after doubling his dose of lasix over the past week. Of note, he did not liaise with his PCP prior to doing this. 04/04/14 The patient states that he was walking a bit more than usual yesterday but notes some sanguinous drainage on his plantar 1st MTPJ dressing for the past few days. He's also put on 7 lbs in the past week and feels his legs are more swollen than usual. He does not report chest pain, shortness of breath, or orthopnea. His blood sugars are also up a bit around 180. He's compliant with both his diabetes regimen and his diuretic therapy. 03/28/14 The patient reports no increased drainage or other complications from his right foot diabetic ulcers. 03/21/14 The patient reports minimal drainage from his right foot diabetic ulcers. He continues to minimally weight bear using a surgical boot and a walker. 03/14/14 The patient does not report increased drainage or other new issues regarding his right 5th MTPJ and right 1st MTPJ plantar ulcers. His blood sugars remain more elevated than usual with some between 150 and 180. 03/07/14 The patient reports no fever or increased right foot wound pain or drainage. 02/28/14 The patient reports that his blood sugar this morning is a bit elevated around 160 but has mostly been below 140 over the past few days. He's been off antibiotics for 3 days now and reports modest drainage from the right 5th MT ulcer while dressing changes are being done every two days. 02/24/14 The patient does not report any new issues regarding his right foot ulcers including increased drainage, fever, or chills. He completed his course of doxycycline yesterday. 02/17/14 The patient reports moderate yellow drainage from the right foot 5th MTPJ ulcer. He's completed a course of doxycycline and does not report fever or chills but states his blood sugars remain higher then normal in the 170's. His wound culture was positive for Enterobacter and his ESR was elevated at 41 and CRP at 2.7. 02/06/14 The patient does not report increased drainage from the right 5th MTPJ ulcer nor does he report fever or pain. He continues to off load with a walker and minimizing walking. He continues on doxycycline which was started empirically at his last visit and his culture has since grown Enterobacter which should be susceptible to doxy based on sensitivities. His xray of the foot was not concerning for osteomyelitis however his ESR and CRP are both moderately elevated. He also feels his legs are more swollen than usual and he continues to take his lasix as scheduled. 02/03/14 The patient does not report fever, chills, or pain in the right foot however when the TCC was removed today he's noted to have a sizable increase in the diameter and depth of what was a small 5th MTPJ ulcer. 01/14/14 The patient reports no new problems regarding is right diabetic foot ulcer. 12/31/13 The patient reports minimal serous drainage from his right 5th MTPJ ulcer and states he continues to off load his foot as much as possible. He does not report pain or drainage from the site of his right 1st MTPJ ulcer. 12/19/13 The patient tolerated with TCC without any complaints but there appears to be a small area of erythema over the right 5th MTPJ. He notes his blood sugars are typically below 120 and his A1c last week was 7.4. 12/13/13 The patient has no complaints regarding his TCC nor his plantar ulcer. 12/11/13 The patient returns for placement of a TCC today. He does not report any new problems regarding is plantar ulcer. 12/03/13 The patient states his plantar ulcer drainage is stable and he's continued to not use a cut-out foam doughnut over the ulcer. 11/26/13 The patient has kept the foam dressing in place from the last visit and has not used a cut-out foam dressing which we felt caused some deterioration of the foot ulcer. He has some mild drainage but no pain. 11/22/13 The patient returns for review of his plantar ulcer and callus that seems to be deteriorating despite an adjustment to his boot and off loading measures. The patient reports his callus accumulation is in spite of daily kerasal applications. Patient reports a new small wound on the left second toe. Josue states that it might be related to the brace. Patient had brace modified to help off load. 11/06/13 Josue states he was able to schedule with the prosthetic doctor tomorrow at noon. He reports no new problems or concerns. He also says that he is done with physical therapy since yesterday as insurance will not cover it any longer. 10/31/13 The patient reports he received his dressing supplies. Dressings changes are going well and no new problems are reported. He saw his behavioral health clinician, Dr. Solitario, on Monday for a check up and had and x-ray of the foot. 10/24/13 Josue reports he has been staying off of his feet as much as possible. He has been changing the dressing as ordered and states there has been just a small amount of drainage. He recently ran out of his dressings and will need more ordered or the balance sent home with him. 10/17/13 Patient states he has no new problems or concerns. He did have a small increase in drainage the other day but he had walked more than normal the day before. 10/09/13 Josue states he has no new issues. Dressing changes are going well. 10/02/13 Josue states there have been no new issues with dressing changes. They have been changed once since his last visit. No complaints of pain with the wound. 09/20/13 Josue was discharged from wound care September 05. States that he has been using pumice stone on callus area where had previous wound and may have been too aggressive. Also has been on feet more and having increase in lower extremity edema. Continues to wear the tetragrip F he had received in the clinic 6 hours per day but has not ordered any yet. 09/27/13 Patient states that there have been no issues with using the [employer] structural repairer. Asking about getting compression stockings from drug store for continued use. 09/05/13 Patient states he has set up physical therapy for the problems with his knee. He starts these treatments on 09/11. There has been no new issues with his wound and he changes the dressings about every two days. He reports little to no drainage. 08/06/13 States no new problems with wound area. Been using kerosol daily. 08/19/13 Patient states he twisted his knee a week ago, and it is effecting his walk slightly. He also complains of more edema in his legs, and has an appointment with his PCP tomorrow regarding the issue. No new problems or concerns with his wound. No new problems or concerns. Patient states he changed the dressing a few times this last week. Saw Dr. Solitario this past week for check up with no change o his management. 07/26/13 The patient has had new brace for one week and so far it is working out well. No other complaints at this time. 07/18/13 Patient got brace for foot and leg yesterday. No problems or concerns. 07/11/13 No problems or concerns. Changed dressing twice since last visit 07/04/13- Pt went to his PCP and his lasix were increased from 20mg to 40mg. He states his edema has decreased since then. Pt's diabetic foot brace (decreases lateral movement to reduce pressure on the sides of his feet) will arrive in about another week. 06/20/13- Pt reports increased edema in his feet for the last week, he has been walking more, but also sitting with his feet down more. With the increase in exercise he states his back has been hurting. On Sunday 06/18 pt went to [facility],and had his ankle brace fitting. 05/31/[address] Green this am. Changed dressing twice this week. Saw visual design lead (in [place]) on Monday. Considering ankle brace 05/24/13 states started walking program at 5 minutes at a time and taking the bus to clinic apt. 11/08/12 Pt is changing dressing every two days. Is concerned about the edema to the left leg that had the cellulitis. States it is warm. 11/15/12 patient has been having more nerve pain. He has been changing his dressing either every day or every other day. 11/22/12- Patient continues to change dressing about every day. No problems noted. Patient changing dressing about q o day. Thinks wound is less deep. 12/07/12 Pt only changed dressing twice since last visit. No concerns or problems. 12/18/12 When cleaning wound was able to aspirate large purlent sero-sang fluid from site. Pt states he feels it was doing better. 12/24/12 Decreased drainage and pt states he feels the wound is doing well. 12/31 Pt states he has had decreased draiange from wound. Pt denies pain. 01/07/13Pt states the kerasol didn't really do much, but admits he was only applying it every other day and is not sure what his expectations should be. He believes he may have bumped a toe on the left foot and has been concerned about some bruising there but admits it is getting better. Still does not have his new shoes and says he is exploring other options like disability. 01/21/13 feeling well since last visit. feels he may have bumped third toe so wants it to be seen. Level 2- 3 neuropathic pain in right foot 02/27/12 Patient changing bandaid on foot and applying kerasol every three days. Patient got new PCP and saw him yesterday. Patient states things are going well with the wound. 03/12/[address] Green for edema and will see him tomorrow for follow up.03/25/13 states has drainage from bottom of foot. concerned about new wounds Sates he changes dressing every 2 days. Changed this AM as it came off. Using Ca alginate and foam. States no drainage last night 04/19/13 changes dressing every 2-3 days. no problem. Has appt with Dr. Solitario 04/30/13 and new shoes have arrived. To be fitted next week 04/26/13 Is wearing new shoes and states they are working well.Changed dressing twice this week 05.03.[address] Solitario last week. will see again in [address] Green started antibiotic for sinus infection States sinuses not a lot better. Has started Lakshmi D, helping some. States wound about same. Changing dressing 2 x this week as dressing came off. States added collagen one time. Family History This information was obtained from the patient Cancer - Mother, Heart Disease - Father Social History This information was obtained from the patient Never smoker, Alcohol Use - none, Caffeine Use - 1 per day, Children - none, Lives in - [facility] [place], Marital Status - single, Mental health concerns - none, Occupation - unemployed, Substance Abuse - none, Support Systems Lacking - sister lives in town, but has health problems Past Medical History This information was obtained from the patient Patient has a medical history of: Left lower extremity cellulitis - 10/15/2012 Diabetic foot ulcer - 09/27/2013 (Hernandez grade 2; right plantar surface; Hernandez grade III (Enterobacter positive wound culture 02/03/14), lateral right 5th MTPJ originally dx 12/24/13; MRSA positive culture 06/04/14 ) Chronic venous hypertension Type II Diabetes Hypertension Morbid Obesity Kidney Stones Hx MRSA Diabetic neuropathy Hallux valgus (right 1st toe) UTI (hospital admit) Cellulitis of legs (June and September 2012- hospital admit) Cataract surgery (10/13/15) Diabetic Neuropathy Surgical History This information was obtained from the patient Patient has a surgical history of: wisdom teeth 2nd toe right foot amputated - 10/21/2004 (unsure of month) kidney stone removal - 10/21/1977 (unsure of month) Cataract removal to both eyes - 11/25/2015 Complaints and Symptoms This information was obtained from the patient Patient complains of: General Notes: I have reviewed and concur with the Review of Systems and Past Family Social History documents completed by the clinician, I have reviewed and concur with the Wound Assessment document completed by the clinician Cardiovascular (Central/Peripheral): Lower extremity (leg) swelling Integumentary (Hair/Skin/Nails): Open Sore Musculoskeletal: Deformities, Muscle Weakness Neurological: Abnormal Gait, Loss of Protective Sensation, Tremors Prior Wound History: Bleeding, Drainage Patient denies complaints or symptoms related to: Cardiovascular (Central): Irregular heart beat Cardiovascular (Central/Peripheral): Lower extremity (leg) resting pain Constitutional Symptoms (General Health): Chills, Fever, Marked Weight Change Ear/Nose/Mouth/Throat: Hearing Loss / Aid Gastrointestinal (GI): Nausea / Vomiting Hematologic/Lymphatic: Bleeding / Clotting Disorders, Bleeding Tendency Musculoskeletal: Assistive Devices Prior Wound History: Erythema, Malodor, Pain Psychiatric: Memory Loss Respiratory: Oxygen Use, Shortness of Breath OBJECTIVE Constitutional BP elevated; Low grade fever; Alert and in no distress. Well developed. Alert. Clean appearing.. Height/Length: 71 in (180.34 cm), Weight: 362.6 lbs (164.82 kgs), BMI: 50.6, Temperature: 99.1 ?F (37.28 ?C), Pulse: 75 bpm, Respiratory Rate: 16 breaths/min , Blood Pressure: 147/62 mmHg, Capillary Blood Glucose: 216 mg/dl, Pulse Oximetry: 98 %. Vital Signs Notes: Glucose per patient Ears, Nose, Mouth, and Throat: No clinically significant hearing loss on informal examination. Respiratory: No respiratory distress. Even respirations and without use of accessory muscles.. Cardiovascular: 1+ right lower extremity edema. Gastrointestinal (GI): Obese. Nondistended.. Musculoskeletal: Right dorsal foot echymosis unchangd from previous review. Integumentary (Hair, Skin) No periwound erythema, warmth, or significant drainage. No periwound rashes appreciated or noted otherwise.. Refer to appropriate clinician wound documentation for this visit; right foot ulcer extends to subcut with base partially covered with pink granulation, remainder fibrin and slough; improved in terms of size and granulation. Wound #6 Right, Plantar Foot is a chronic Hernandez Grade 2 Diabetic Ulcer and has received a status of Not Healed. Subsequent wound encounter measurements are 0.7cm length x 0.4cm width x 0.2cm depth, with an area of 0.28 sq cm and a volume of 0.056 cubic cm. No tunneling has been noted. No sinus tract has been noted. No undermining has been noted. There is a moderate amount of sero-sanguineous drainage noted which has no odor. The patient reports a wound pain of level 0/10. The wound margin is callus. Wound bed has No epithelialization, No eschar, No slough, Yes bright red, firm granulation. The periwound skin color is normal. The periwound skin exhibited: Callus, Moist. The periwound skin did not exhibit: Brawny Induration, Edema, Excoriation, Induration, Crepitus, Fluctuance, Friable, Rash, Dry/Scaly, Maceration. The temperature of the periwound skin is WNL. Periwound skin does not exhibit signs or symptoms of infection. Local Pulse is Palpable. Neurological: Cranial nerves grossly intact with symmetric function normal by informal observation.. ASSESSMENT Active Problems ICD-10 (Encounter Diagnosis) E11.621 - Type 2 diabetes mellitus with foot ulcer (Encounter Diagnosis) L97.512 - Non-pressure chronic ulcer of other part of right foot with fat layer exposed (Encounter Diagnosis) S92.314D - Nondisplaced fracture of first metatarsal bone , right foot, subsequent encounter for fracture with routine healing PROCEDURES Wound #6 Wound #6 (Diabetic Ulcer) is located on the right, plantar foot. A skin/ subcutaneous tissue level surgical debridement with a total area debrided of 0.28 sq cm was performed by Stephen Nice MD. Subcutaneous was removed along with devitalized tissue: callus and slough. The following instrument(s) were used: curette. Pain control was achieved using 4% Lido. A time out was conducted prior to the start of the procedure. A minimal amount of bleeding was controlled with n/a. The procedure was tolerated well with a pain level of 0 throughout and a pain level of 0 following the procedure. Post Debridement Measurements: 0.7cm length x 0.4cm width x 0.3cm depth; with an area of 0.28 sq cm and a volume of 0.084 cubic cm; Additional Information Muscle fascia or bone removed and sent to pathology?: No PLAN Wound Orders: Wound #6 Right, Plantar Foot Anesthetic Topical Xylocaine to wound bed. - In clinic only. Cleanser Cleanse Wound: - Normal saline and gauze. May Shower. - Do not get wound wet with tap water. Use cast protector when showering. Topical Treatments Antibiotic/Antimicrobial Ointment/Cream. - Iodosorb to wound base. Dressings Cover and secure with: - Foam and hypafix tape. Change Dressing: - Every other day. Additional Orders: Off-Loading Keep weight off: - Right foot as much as possible. Use Knee scooter when able. Use/Wear when Walking: - Offloading shoe. Compression/Edema Control Elevation of leg(s) above the level of the heart when sitting. Avoid prolonged standing in one place. - Please avoid standing or walking for long periods of time. Knee-high gradient compression stockings. - Tetragrip F stockings to both legs. On in the morning and off at night. Follow-Up Appointments Return Appointment: - - One week Other information: If you develop fever, chills, increased pain, drainage, redness or swelling please call our office. If after hours, respond to the ER. Should you experience any significant changes in your wound(s) or have any questions regarding your home care instructions please contact the wound center @ [phone]. If after hours, contact your primary care physician or go to the hospital emergency room. Scribing Attestation I attest, as the nurse, that I scribed these orders for the physician. I've reviewed the clinician's documentation and agree with the evaluation and plan as written. In addition, the patient's ulcer demonstrates evidence of non-viable devitalized tissue which will continue to benefit from sharp debridement to help promote granulation and expedite healing. Also, the patient will continue offloading as recommended and if the right 1st MTPJ swells or deteriorates we'll refer back to orthopedics regarding the intra-articular fracture. Electronic Signature(s) Signed By: Date: Stephen Nice MD 09/25/2017 09:40:37 Entered By: Stephen Nice on 09/25/2017 09:31:29
== END ==
PROVIDERS: PCP Family Medicine; Visit Provider Internal Medicine
DX: E11.621 Type 2 diabetes mellitus with foot ulcer (principal); L97.512 Non-pressure chronic ulcer of other part of right foot with fat layer exposed; S92.314D Nondisplaced fracture of first metatarsal bone, right foot, subsequent encounter for fracture with routine healing
CPT/HCPCS: 11042

== ENCOUNTER → 2017-10-03 09:48 | Outpatient (CLI) | payer MEDICARE, OTHER, SELFPAY ==
--- NOTE | 2017-10-03 | OV.WND_ITS ---
Progress Note Details Patient Name: Josue Mesa Patient Number: [id number] PatientPatientDate: 10/03/2017 Clinician: Digna Diallo Clinician Cosigner: Estephanie Grant Physician / Computer Laboratory Technician: Stephen Nice SUBJECTIVE Chief Complaint This information was obtained from the patient Diabetic ulcer to right plantar foot and great toe. Allergies Augmentin (Severity: Mild, Reaction: nausea) HPI This information was obtained from the patient 10/03/17. Seen by Dr. Nice. The patient does not report increased drainage associated with the chronic right 1st MTPJ diabetic ulcer since his last visit which was 10 days ago. 09/22/17. Seen by Dr. Nice. The patient's xray of his right foot showed a 1st MTPJ intra- articular fracture and he was seen by Dr. Solitario who recommended continued offloading with the forefoot surgical offloading shoe but no further intervention at this time. He does not report pain in the foot nor significant drainage associated with the plantar 1st MTPJ diabetic foot ulcer since his last visit. 09/19/17. Seen by Dr. Nice. The patient reportedly fell on Monday injuring his right foot. He was seen by his PCP yesterday who felt it may have been infected and he was started on Keflex. He does not report pain in the foot and is able to bear weight as usual. He also does not report increased drainage associated with the chronic right 1st MTPJ diabetic ulcer since his last visit. 09/15/17. Seen by Dr. Nice. The patient arrived today feeling quite week and shaky and states he was seen in the ER earlier this morning for similar complaints and subsequently discharged to his [facility]. His CT scan and labs were unremarkable however he was unable to leave a urine sample for analysis at that time. His symptoms persist during our visit however there's no confusion or other acute complaints. He's also finished his course of Bactrim that was treating the recent right diabetic foot ulcer infection and he does not report increased drainage for pain at the ulcer site. 09/12/17. Seen by Dr. Nice. The patient does not report increased drainage associated with the chronic right 1st MTPJ diabetic ulcer since his last visit. He also continues on doxycycline for the recent Staph cultured from the ulcer and he does not report adverse side effects. 09/08/17. Seen by Dr. Nice. The patient's now on doxycycline for the recent coag negative Staph culture taken from the chronic right 1st MTPJ diabetic ulcer. He does not report adverse side effects nor increased drainage or pain associated with the ulcer. 09/05/17. Seen by Dr. Nice. The patient does not report increased drainage associated with the chronic right 1st MTPJ nor right 1st toe dorsal diabetic ulcers since his last visit however the nurse reports increased bloody drainage on the dressing and increased maceration and callus along the distal margin of the ulcer. His recent wound culture grew coag negative Staph and he's not currently on antibiotics. 09/01/17. Seen by Dr. Nice. The patient does not report increased drainage associated with the chronic right 1st MTPJ nor right 1st toe dorsal diabetic ulcers since his last visit. 08/29/17. Seen by Dr. Nice. The patient does not report increased drainage associated with the chronic right 1st MTPJ diabetic ulcer since his last visit. He does complain of progressive upper extremity tremors that are most noticeable in the morning and evening and may occur after he takes his metformin. He does not report low blood sugars and he'll bee seeing his PCP today to discuss this. 08/25/17. Seen by Dr. Nice. The patient reports being more active and on a boat over the holiday which was no conducive to using his knee scooter. He feels the right 1st MTPJ ulcer has deteriorated and he has a new ulcer over the dorsum of the right 1st toe now. 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 08/22/17. Seen by Dr. Nice. The patient was seen at [facility] and they provided a new orthotic insert to help better offload the chronic right 1st MTPJ diabetic ulcer while he's wearing his surgical, forefoot offloading show. He does not report increased drainage or pain associated with the ulcer and is using a knee scooter also to help offload. He has a severe valgus deformity which results in heavy callus formation and has required twice weekly debridements which has been effective in gradually promoting the ulcer to heal. He's also been applying topical gentamicin to the ulcer base to treat the recent coag negative Staph culture that was taken due to increased drainage. 08/18/17. Seen by Dr. Nice. The patient's wound culture taken from the chronic right foot diabetic ulcer at his last visit grew an intermediately resistant coag negative Staph and his dressing change and application of gentamicin is taking place only every 2-3 days. He does not report pain in the foot but staff report his dressing as being 'bloody' today. 08/15/17. Seen by Dr. Nice. The patient reports what may be increased drainage on his right foot diabetic ulcer dressings as mentioned by his childcare worker in assisted living. He's using a knee scooter as recommended and does not report pain in the foot. He's also asking when it will be appropriate to have his right foot orthotic adjusted in his diabetic shoe although he's currently wearing a forefoot offloading shoe at all times. 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 08/11/17. Seen by Jean-Pierre Pinto PA-C. The patient reports stable drainage from his right foot diabetic ulcer. Again his blood sugars have been above 150 since his last visit. 08/08/17. Seen by Jean-Pierre Pinto PA-C. The patient reports no increase in drainage from his right foot diabetic ulcer. His blood sugars this week have reportedly been mostly above 150. 08/04/17. Seen by Dr. Nice. The patient does not report increased drainage associated with the chronic right plantar foot diabetic ulcer since his last visit and he's offloading appropriately as recommended. He also was seen by Dr. Solitario, podiatry, who discussed possible surgical options to address the severe right 1st toe valgus deformity that's complicating the ulcer and contributing to heavy periculcer callus formation however there's no plan of intervention at this time. 08/01/17. Seen by Dr. Nice. The patient does not report increased drainage associated with the chronic right plantar foot diabetic ulcer since his last visit and he's offloading appropriately as recommended. 07/28/17. Seen by Dr. Nice. The patient does not report increased drainage associated with the chronic right plantar foot diabetic ulcer since his last visit and he's offloading appropriately as recommended. We've increased his visits to twice weekly due to the very heavy callus formation that's contributing to the refractory nature of the ulcer. 07/25/17. Seen by Dr. Nice. The patient does not report increased drainage associated with the chronic right plantar foot diabetic ulcer since his last visit and he's offloading appropriately as recommended. Kerasal is not being applied to the periulcer callus and his visits have been decreased to once weekly over the past few weeks while the ulcer has been improving. 07/18/17. Seen by Dr. Nice. The patient does not report increased drainage associated with the chronic right plantar foot diabetic ulcer since his last visit and he's offloading appropriately as recommended. 07/11/17.Seen by Dr. Nice. The patient has been wearing his offloading shoe and using a knee scooter as recommended and does not report significant drainage associated with the chronic right plantar foot diabetic ulcer since his last visit. 07/04/17. Seen by Dr. Nice. The patient has been wearing his offloading shoe as recommended and does not report significant drainage associated with the chronic right plantar foot diabetic ulcer since his last visit. 06/30/17. Seen by Dr. Nice. The patient has been wearing his offloading shoe as recommended and does not report significant drainage associated with the chronic right plantar foot diabetic ulcer since his last visit. 06/27/2017. Seen by Dr. Nice. The patient has been wearing his offloading shoe as recommended and does not report significant drainage associated with the chronic right plantar foot diabetic ulcer since his last visit. His blood sugars are also mostly below 100 now and he's using his knee scooter as well to further optimize offloading. 06/23/2017. Seen by Dr. Nice. The patient does not report pain nor increased drainage associated with the chronic right plantar foot diabetic ulcer since his last visit. He is wearing his offloading shoe as recommended now and his blood sugar control has improved with some below 200. 06/20/2017. Some by Dr. Nice. The patient is not report increased drainage position with chronic right plantar foot diabetic ulcer since last visit. He is now clindamycin for the resistant Staphylococcus haemolyticus positive culture that was taken to the last visit. His blood sugars continued to be elevated and or over 300 earlier this morning despite having his Lantus dose increased recently. He is also wearing his diabetic shoes but not an offloading surgical shoe as I have been recommending. 06/16/17. Seen by Dr. Nice. The patient does not report increased drainage associated with chronic right plantar foot diabetic ulcers since his last visit. His recent wound culture grew a resistant coag negative staph organism. He also met with his primary care provider, Dr. Green, to increase his dosing of Lantus and plans to work with him on dietary measures to help gain better control of his elevated blood sugars. 06/13/17. Seen by Dr. Nice. The patient's blood sugars again are over 300 today and his appointment with his primary care provider to address this. He does not report any acute changes regarding the chronic right plantar foot diabetic ulcer and is using his knee scooter to help facilitate offloading as much as possible. 06/09/17. Seen by Dr. Nice. The patient does not report significant drainage associated with the chronic right plantar foot diabetic ulcer since his last visit. 06/06/17. Seen by Dr. Nice. The patient does not report significant drainage associated with the chronic right plantar foot diabetic ulcer since his last visit and he's lost another 7 lbs since increasing his dose of Lasix due to abnormal weight gain and significant bilateral lower extremity edema. 06/02/17. Seen by Dr. Nice. The patient does not report significant drainage associated with the chronic right plantar foot diabetic ulcer since his last visit. His increase his dose of Lasix and has lost 7 pounds over the past 3 days. This is been done due to the significant increase in leg swelling over the past 2 weeks. 05/30/17. Seen by Dr. Nice. The patient does not report increased drainage associated with chronic right plantar foot diabetic ulcer since his last visit however he does feel that the right foot and leg are swelling considerably over the past few days. We note a 4 pound weight gain since his last visit on Monday and he states is taking his diuretic as prescribed. 05/26/17. Seen by Dr. Nice. The patient does not report increased drainage associated with chronic right plantar foot diabetic ulcers since his last visit. His culture grew a somewhat resistant coag negative staph and he is not currently on antibiotics. 05/23/17. Seen by Dr. Nice. Staff reports some increased drainage on his dressings covering the chronic right plantar foot diabetic ulcer today. His blood sugar is again over 300 and he states he is eating rice and potatoes trying to cut back. He continues offload with his knee scooter as recommended and does not report pain or any other acute ulcer related issues today. 05/19/17. Seen by Dr. Nice. The patient does not report increased pain or drainage associated with chronic right plantar foot diabetic ulcer since his last visit. He is using his knee scooter as recommended and has had significant problems with heavy callus at the site due to a severe right first toe valgus deformity. He is now attending clinic twice weekly for debridement of the ulcer and complicating callous. 05/16/17. Seen by Dr. Nice. The patient does not report increased drainage or pain associated with chronic right plantar foot diabetic ulcer since his last visit. Of note, the patient's blood sugar as 271 today and his A1c was 9.8 in March. 05/12/17. Seen by Dr. Nice. The patient does not report increased pain or drainage associated with chronic right plantar foot diabetic ulcer since his last visit. He is using his knee scooter to help offload the site which is particularly important based on patient's morbid obesity coupled with his severe first MTPJ valgus deformity. 05/09/17. Seen by Dr. Nice. The patient does not report increased drainage or pain associated with the chronic right plantar foot diabetic ulcer since his last visit. He states his blood sugars continue to be above 200 consistently although are improving with compliance to a lower carbohydrate type diet. He was started on metformin about a month ago he complains of some intermittent upper extremity weakness since then and will be discussing this with his primary care provider. He is also awaiting his new diabetic shoes that are being adjusted to help accommodate for his severe right first toe valgus deformity. 05/02/17. Seen by Jean-Pierre Pinto PA-C. The patient reports stable drainage from his right 1st toe ulcer and blood sugars continue to be above goal. 04/25/17. Seen by Jean-Pierre Pinto PA-C. The patient reports his blood sugars have been above 150 this week. He does not report increased drainage from his right 1st toe diabetic ulcer. 04/18/17. Seen by Dr. Nice. The patient does not report increased drainage associated the chronic right first toe diabetic ulcers since his last visit. 04/11/17. Seen by Jean-Pierre Pinto PA-C. The patient reports he is developing more calloused areas on his feet and is concerned about new ulcers occurring. His chronic 1st toe diabetic ulcer has been stable. 04/04/17. Seen by Jean-Pierre Pinto PA-C. The patient reports he has not been able to get his blood sugars below 150. Drainage is reportedly decreased from his diabetic foot ulcer. 03/30/17. Seen by Jean-Pierre Pinto PA-C. The patient reports continued high blood sugars, all above 150. Drainage from his ulcer is not increased. 03/23/17. s Seen by Jean-Pierre Pinto PA-C. The patient reports blood sugars above 150 again this week. He is concerned that something must be going on with an infection as he believes his diet has not changed and thus his sugars should be lower. His wound has had stable drainage. 03/15/17. Seen by Jean-Pierre Pinto PA-C. The patient reports he has had some blood sugars above 150 this week. He reports no increase in drainage from his right 1st toe diabetic ulcer. 03/08/17. Seen by Dr. Nice. The patient was discharged from the hospital recently following treatment for cellulitis associated with the chronic right first toe diabetic ulcer. He grew MRSA from the wound culture and was treated with IV vancomycin and is now on Bactrim. He does not report pain nor significant drainage associated with the ulcer nor side effects from antibiotics. 02/23/17. Seen by Dr. Nice. The patient does not report increased drainage associated the chronic right first toe diabetic ulcers since his last visit. The patient also states that he is more active over the holidays and was unable to use his knee scooter at times while walking outside due to safety concerns. 02/08/17. Seen by Dr. Nice. The patient does not report increased drainage associated the chronic right first toe diabetic ulcers since his last visit. He states he is using his offloading shoe when at home and a knee scooter went out. 02/01/17. Seen by Dr. Nice. The patient does not report increasing pain or drainage associated with chronic right first toe diabetic ulcer since his last visit. 01/25/17. Seen by Dr. Nice. The patient does not report increasing pain or drainage associated with chronic right first toe diabetic ulcer since his last visit. 01/18/17. Seen by Dr. Nice. The patient does not report increasing pain or drainage associated with chronic right first toe diabetic ulcer since his last visit. Of note, the patient's blood sugar is over 260 again today and he admits that it's been significantly elevated for a number of weeks. He has an appointment with his primary care provider to discuss this next week. 01/11/17. Seen by Dr. Nice. The patient does not report increasing pain or drainage associated with chronic right first toe diabetic ulcer since his last visit. He states his blood sugars have been running high recently and he is going to follow-up with his primary care provider in the near future to address this. 01/04/17. Seen by Dr. Nice. The patient does not report increased drainage associated with chronic right first foot diabetic ulcers since his last visit. He's also been applying Kersal to the periulcer as recommended. 12/28/16. Seen by Dr. Nice. The patient does not report increased drainage associated with chronic right first foot diabetic ulcers since his last visit. 12/22/16. Seen by Dr. Nice. The patient does not report increased drainage associated with chronic right first foot diabetic ulcers since his last visit. He's not been applying Kersal to the periulcer callus and does not appear to be using his knee scooter at all times to offload the ulcer. 12/15/16. Seen by Jean-Pierre Pinto PA-C. The patient reports he continues to have blood sugars above 150 this week. He recently saw his PCP, they did not alter his diabetic care plan. His visit was a follow up for an ER visit for chest pain which was negative for MN and was thought to be epigastric in origin. His diabetic ulcer of the right foot has not had increased drainage. 12/06/16. Seen by Jean-Pierre Pinto PA-C. The patient reports that he has found his knee scooter and plans to start using it today. He also reports most of his blood sugars have been above 150. Drainage from his ulcer has been stable. 11/25/16. Seen by Dr. Nice. The patient does not report increased drainage associated with chronic right first foot diabetic ulcers since his last visit. He is now on antibiotics for wound infection and does not report adverse side effects. Of note, he is not yet using a knee scooter nor offloading shoe as we recommended last week. 11/18/16. Seen by Dr. Nice. The patient returns to our clinic and presents with recurrence of a right first MTPJ plantar diabetic ulcer. He states it started a couple weeks ago when he was attempting to remove overlying callus at home. He does not report significant drainage or pain associated with the ulcer and is not currently on antibiotics. He also states his recent A1c was 7.8. His blood sugar in clinic today is 250. 01/11/16 Seen by Jean-Pierre Pinto PA-C. The patient reports no drainage from his chronic right 1st MTPJ joint since his last dressing change. 01/04/16 Seen by Jean-Pierre Pinto PA-C. The patient reports minimal drainage from his chronic right 1st MTPJ ulcer. He has recently seen his PCP and his A1c was 7.7. His lower extremity edema, abnormal weight gain and kidney failure are stable with his diuretics recently being adjusted. 12/28/15. Seen by Dr. Nice. The patient does not report significant drainage associated with the chronic right 1st MTPJ diabetic ulcer since his last visit however he does complain of increasing shortness of breath, fatigue, and an 18lb weight gain over the past week despite taking his diuretics as recommended. He does not report chest pain or cough and his blood sugars remain relatively well controlled with most below 150. 12/16/15. Seen by Dr. Nice. The patient does not report significant drainage associated with the chronic right 1st MTPJ diabetic ulcer since his last visit. He's applying kerasal to the surrounding callus as recommended and offloading nearly at all times using his knee scooter. 12/07/15 Seen by Jean-Pierre Pinto PA-C. The patient reports compliance with his new offloading brace and shoe and has seen minimal drainage from his diabetic foot ulcer since his last visit. 11/30/15. Seen by Dr. Nice. The patient does not report significant drainage associated with the chronic right 1st MTPJ diabetic ulcer since his last visit and he's wearing a combined AFO / diabetic shoe system that he feels may be better offloading the ulcer. 11/23/15 Seen by Jean-Pierre Pinto PA-C. The patient reports that he is wearing his new diabetic shoes and inserts. He is continuing physical therapy for gait training and reports continued difficulty with stairs and occasional bouts of dizziness. He reports stable drainage from his chronic right foot diabetic ulcer. 11/16/15 Seen by Jean-Pierre Pinto PA-C. The patient reports stable drainage from his right foot diabetic ulcer. He also reports that his diabetic shoes and inserts are quite old and worn out. He is ambulating with is 4 wheeled walker and is working with PT for gait training. 11/09/15 Seen by Jean-Pierre Pinto PA-C. The patient reports that he is still using a 4 wheeled walker instead of a 4 footed walker. PT is working with him to improve his gait and balance. Drainage from his right foot ulcer has been stable. 11/02/15 Seen by Jean-Pierre Pinto PA-C. The patient reports no increase in drainage from his chronic diabetic foot ulcer. He has had multiple blood sugars above 150 this week. 10/29/15. Seen by Dr. Nice. The patient was recently discharged from [facility] following treatment of sepsis thought to possibly be related to his chronic right 1st MTPJ diabetic ulcer that grew Enterococcus just prior to his admission. He now feels generally weak , has lost 18 lbs following diuresis, and is residing at home where he's minimizing his weight bearing on the right foot. He does not report significant drainage from the ulcer nor pain and states his blood sugars remain mostly around 150. He also continues on levofloxacin and does not report adverse side effects. 10/14/15. Seen by Dr. Nice. The patient report persistent bloody drainage from the chronic right 1st MTPJ diabetic ulcer and he feels the callus has increased significantly since it was last debrided 2 week ago. He does not report fevers or feeling unwell and states his blood sugars are well controlled with most below 150. He's using his AFO when walking nearly at all times to facilitate offloading the significant right 1st MTPJ valgus deformity. 09/24/15 Seen by Jean-Pierre Pinto PA-C. The patient reports that he is no ran out of lasix due to a mix up at the pharmacy and unavailability of his strength/dose of tablets. He continues trying to offload his ulcer with his wheeled walker and notes stable ulcer drainage. 09/17/15. Seen by Dr. Nice. The patient continues to report some bloody drainage from the chronic right 1st MTPJ diabetic ulcer and he's started reducing his activity and continues to use his knee scooter at home to offload the foot. 09/10/15. Seen by Dr. Nice. The patient states he was more active over the past week and notices increased bloody drainage associated with chronic right first MTPJ diabetic foot ulcer. He continues to wear his AFO and states his blood sugars are mostly below 150. 09/03/15. Seen by Dr. Nice. The patient does not report significant drainage associated with the chronic right first MTPJ diabetic ulcer over the past week. He does feel that the callus smaller than on previous visits and is wearing his AFO at all times. Of note, he 's now in doxycycline to treat the recent coag negative Staph cultured from the ulcer at his last visit. 08/27/[address] Nice. The patient reports increase bloody drainage associated with the chronic right foot 1st MTPJ diabetic ulcer and he feels his activity has increased due to physical therapy and increased mobility over the past week. He does not report pain at the ulcer site, fevers, or feeling unwell in general. 08/20/[address] Nice. The patient does not report significant drainage associated with the chronic right foot 1st MTPJ diabetic ulcer over the past week and he's using a knee scooter as much as possible when mobilizing to offload the foot. His blood sugars also remain relatively well controlled with most below 150. 08/13/[address] Nice. The patient does not report significant drainage associated with the chronic right foot diabetic ulcer over the past week and he's offloading using a knee scooter as recommended. His blood sugars remain relatively well controlled with most below 150. 08/06/[address] Nice. The patient reports recurrence of some drainage from the chronic right foot diabetic ulcer over the past few days and states he's been more active with physical therapy. His blood sugars remain well controlled with most below 150 and he's wearing his AFO when away from the house and using a knee scooter most of the time while at home to facilitate offloading. He's also applying Kerasal to the callus in the periwound area as recommended. 07/23/[address] Nice. The patient does not report drainage from the chronic right 1st MTPJ diabetic ulcer over the past week and he's using his new AFO and knee scooter to offload the foot. 07/16/[address] Nice. The patient does not report pain or drainage from the chronic right 1st MTPJ diabetic ulcer and he's wearing his newer AFO while offloading with a knee scooter most of the time. 07/09/[address] Nice. The patient does not report drainage or pain associated with his chronic right foot 1st MTPJ diabetic ulcer and he's been offloading by using a knee scooter when mobilizing. His slip bridge operator is present today as well to discuss possible adjustments to his AFO with the goal of reducing callus formation that's in part caused by his significant right 1st toe valgus deformity. He also states his blood sugars remain well controlled below 150 consistently. 07/03/[address] Nice. The patient does not report significant drainage from the chronic right foot diabetic ulcer and he's offloading by using his knee scooter. His blood sugars also remain relatively well controlled around 150 consistently. 06/26/[address] Nice. The patient report some continued bloody drainage from the chronic right 1st MTPJ diabetic ulcer however he does not report associated pain , fevers or feeling unwell. His blood sugars remain consistently below 150 and he's using his walker and knee scooter for offloading as recommended. He's also been actively working with his slip bridge operator in hopes of better offloading the ulcer and address his significant callus formation and left 1st MTPJ valgus deformity. 06/19/[address] Nice. The patient does not report pain associated with his chronic right 1st MTPJ diabetic ulcer however he states some bloody drainage persists on the dressings. He does not report fevers or feeling unwell and states his blood sugars are well controlled below 150 consistently and he's using a knee scooter and walker to offload the ulcer when mobilizing. He also does not report pain or drainage associated with the left 2nd toe wound. 06/11/[address] Nice. The patient was recently discharged from [facility] following a fall at home that resulted in a broken rib. Regarding his chronic right 1st MTPJ diabetic ulcer he does not report significant drainage and has been offloading through bed rest and using a knee scooter while at home. His blood sugars also remain well controlled with most below 150. He also reports a new wound on the dorsum of the left 2nd toe that he believes occurred during his fall. He does not report associated pain or significant drainage. 05/28/[address] Nice. The patient reports some increased bloody drainage from the chronic right 1st MTPJ diabetic foot ulcer over the weekend associated with a new 'soft' area along the distal margin. He's been more active the past the past few days but states he's using his knee scooter to offload at all times. His blood sugars also remain well controlled with most around 120 and he's no longer on antibiotics. He also continues to wear his old AFO but states there was a recent adjustment of a cut out lined with 'soft' plastic in the area of the ulcer. 05/21/[address] Nice. The patient report less drainage from the chronic right foot 1st MTPJ diabetic ulcer over the past week. He's completed his course of doxycycline and he continues on fluconazole for the recent Alma Delia positive wound culture. He's also reverted back to using his previous AFO while his newer one is adjusted to try to address the recent significant increase in callus formation that's occurred. His blood sugars also remain well controlled under 150 consistently and his recent episodes of hypoglycemia has resolved with an adjustment of his insulin regimen. 05/14/[address] Nice. The patient reports less drainage on the dressings covering the chronic right 1st MTPJ diabetic ulcer since starting doxycycline for a coag negative Staph wound culture along with fluconazole for the alma delia positive culture. His blood sugars remain well controlled below 120 and his insulin has been decreased due to the recent episodes of hypoglycemia. His diuretic has also been decreased as he's lost considerable water weight over the past month. 05/07/[address] Nice. The patient continues to report modest bloody drainage on the dressing covering the chronic right 1st MTPJ diabetic ulcer and he continues to limit his walking but has not been using a knee scooter or walker around the house to facilitate offloading. His blood sugars remain well controlled mostly below 150. 04/30/[address] Nice. The patient continues to report bloody drainage on his right foot diabetic ulcer dressing and he's feeling a bit unwell in general without reporting specific symptoms. He also continues to have intermittent low blood sugars in the 50-60' s and has not discussed this issue with his PCP recently. He's wearing his AFO daily but admits to having difficulty using his walker at all times due to limited space in his new apartment. 04/27/15 Seen by Jean-Pierre Pinto PA-C. The patient reports nonspecific malaise for the past few days. Last night, he reports feeling to tired, weak and shaky to watch TV and went to bed very early. His malaise has been increasing over the past 1-2 weeks and he has frequently been monitoring his blood sugar. His blood sugars are lower than normal lately but never below 100. He has been reducing his insulin dosing in the past 2 weeks to compensate for the lower numbers. He continues to loose weight while continuing to take Lasix and metolazone. 04/23/[address] Nice. The staff and patient continue to report at least moderate serosanquinous drainage from the chronic right 1st MTPJ diabetic ulcer. His blood sugars have been well controlled over the past week with most below 150. He does report being more active than usual while he's been moving to his new home and he also states he continues to loose weight following a recent increase in his diruetics. His wound culture from the last visit reported heavy Diptheroids and he's not currently on antibiotics. 04/20/15 Seen by Jean-Pierre Pinto PA-C. The patient reports that he has moved house and has been on his feet much more so as a consequence. He reports increased drainage from his right plantar foot diabetic ulcer. In addition he believes he struck it against a hard surface when moving. He has had no significant pain with weightbearing but is insensate in this area. 04/15/[address] Nice. The patient reports continued weight loss, and decreasing leg swelling, since starting metolazone totaling about 20 lbs. He also feels the chronic right 1st MTPJ diabetic ulcer has been draining increasing amounts of sanguinous fluid. His blood sugars remain well controlled with most below 120 and he does not report fever or feeling unwell. 03/25/[address] Nice. The patient states he walked a considerable amount yesterday and now reports some bleeding from the chronic right 1st MTPJ diabetic foot ulcer. He also continues to report increased weight gain and now some shortness of breath when walking short distances. He has a low grade fever today but does not report a cough or feeling unwell otherwise. 03/11/2015 Seen by Jean-Pierre Pinto PA-C. The patient's weight has increased 10 lbs in the past week. He reports increased shortness of breath with exertion. He denies chest pain, jaw, neck, shoulder pain or shortness of breath at rest. He has been compliant with his diuretics. His ulcer drainage has been stable. 03/04/2015 Seen by Jean-Pierre Pinto PA-C. The patient is wearing his newly adjusted AFO and reports an increase in walking since last visit. He was unaware that his temperature was elevated and reports no URI symptoms such as cough or sore throat. 02/24/2015 Seen by Jean-Pierre Pinto PA-C. The patient believes his ulcer has now been draining more despite trying to offload the ulcer. 02/11/[address] Nice. The patient reports less drainage from the chronic right 1st toe diabetic ulcer and he's still waiting for approval for his new AFO. 02/04/[address] Nice. The patient feels the drainage from the right 1st MTPJ ulcer has decreased since last week and he's scheduled to see Dr. Solitario tomorrow to review his foot deformity and recurrent callus formation at the site of the ulcer. 01/30/[address] Nice. The patient returns to clinic and reports recurrence of the recently healed right 1st MTPJ diabetic foot ulcer with new moderate drainage and significant callus formation. He's not yet re-established with Dr. Solitario, podiatry, due to insurance issues and is awaiting approval for an adjustment for his AFO. His blood sugars remain controlled below 150 mostly and he does not report pain in the foot or fevers. 01/12/[address] Nice. The patient does not report drainage from the right 1st toe MTPJ ulcer and he's scheduled to have his new AFO fitted this week. 01/05/[address] Nice. The patient does not report drainage associated with the right 1st MTPJ diabetic foot ulcer however he states he has had some intermittent, very brief 'shooting' pain at the site of the ulcer the past few days. His blood sugars also remain between 120 and 150 mostly. 12/29/[address] Nice. The patient does not report drainage from the chronic right 1st MTPJ diabetic foot ulcer and he offloads using a walker and surgical shoe at all times except for when he wears a slipper around his small apartment. 12/22/[address] Nice. The patient does not report significant drainage from the right 1st MTPJ diabetic foot ulcer and he states his blood sugars are still in the 150 range with some over 180. 12/10/[address] Nice. The patient does not report significant drainage from the right 1st MTPJ diabetic foot ulcer. 12/04/[address] Nice. The patient does not report any drainage from the chronic right 1st MTPJ diabetic foot ulcer and he's still waiting for insurance approval for a custom, articulating AFO. His blood sugars also remain relatively well controlled below 150 consistently. He also continues to apply Kerasal to the associated callus daily. 11/20/[address] Nice. The patient's been feeling unwell the past week and feels he may have lost as much as 10 lbs due to poor oral intake. Otherwise he does not report any new problems regarding his right 1st MTPJ plantar diabetic ulcer. 11/07/[address] Nice. The patient reports only scant drainage from the right plantar diabetic foot ulcer. He's been offloading as recommending with a walker and is awaiting a approval for an articulating AFO. His blood sugars remain mostly well controlled below 150. 10/31/14 Seen by Jean-Pierre Pinto PA-C. The patient feels he has reached another plateau with regard to his wound healing. His right plantar diabetic ulcer continues to drain and has not improved recently. He is wearing his brace and reports compliance with offloading. 10/21/[address] Nice. The patient reports only scant drainage from his right 1st plantar surface MTPJ diabetic foot ulcer. He continues to offload with a frame walker and his blood sugars are moderately well controlled with most below 150. 10/14/[address] Nice. The patient does not report significant drainage from the right 1st plantar MTPJ ulcer. Of note, when discussing his blood sugars he mentions he's on both 70/30 insulin as well as Lantus and he frequently has blood sugars in the 150-200 range. 10/07/[address] Nice. The patient reports some modest drainage from the right 1st MTPJ plantar ulcer but no pain, erythema, or swelling. His blood sugars are mostly below 150 and he offloads with his AFO. 09/30/14 Seen by Jean-Pierre Pinto PA-C. The patient reports continued compliance with his AFO and he is trying to offload. He is scheduled now with PT for gait training and knee strengthening. He reports his knee is still sore at times and he feels unstable at times when using his offloading devices and AFO. 09/23/[address] Nice. The patient reports only minimal drainage from the right plantar 1st MTPJ ulcer. 09/16/14 Seen by Jean-Pierre Pinto PA-C. The patient continues to use his AFO, offloading shoe, knee scooter and frame walker to offload his wound. 09/09/14 Seen by Jean-Pierre Pinto PA-C. The patient has been wearing his AFO and offloading shoe together, with the added padding as designed by Sahra BOYD of [employer]. He reports that he feels unsteady and that his knee has felt strained and he discontinued using the brace as he is concerned that he has, or will, re-injure his right knee. He also is having difficulty using his knee scooter with the brace. One year ago , while attempting to offload his foot he did injure his knee and required physical therapy to recover. 08/19/14 Seen by Jean-Pierre Pinto PA-C. The patient's weight is down 10 lbs from his previous visit. His twice daily naproxen has been discontinued by his PCP in an effort to reduce his lower extremity edema. 08/15/14 Seen by Jean-Pierre Pinto PA-C. The patient continues to have weight fluctuations and large amounts of weight gain in short periods of time despite increased diuretic usage. 08/04/14 Seen by Jean-Pierre Pinto PA-C. The patient has been taking his Levaquin and again reports to the clinic with a low grade fever. He reports nearly daily application of Kerasal and his weight and edema have been stable on a higher dose of diuretics. Blood sugars remain stable on his current diabetic medications. 07/21/14 Seen by Jean-Pierre Pinto PA-C. The patient does not report fever, chills or URI symptoms. His wound drainage has been stable. 07/16/[address] Nice. The patient reports persistent but minimal drainage from the right foot plantar ulcer and continues to offload with a walker at all times. His blood sugar are mostly below 150 with a few around 170 the past few days. 07/01/14 The patient reports that he has gained 8lbs in 8 days. Denies SOB. Does not report fever or chills. 06/23/[address] Nice. The patient continues to offload with a knee scooter and walker at all times. He does not report significant drainage from the right plantar foot ulcer. 06/20/[address] Nice. The patient has been offloading his right foot ulcer with a walker and reports less drainage over the past 2 days. He's now off of antibiotics and his blood sugars remain well controlled below 150. 06/11/[address] Nice. The patient reports persistent drainage from the right foot plantar 1st MTPJ ulcer and he completed his course of doxycycline which was started for a MRSA positive culture from the ulcer site. His blood sugars have also been a bit elevated above 150 recently. He does not report fever or chills however. 06/04/14 The patient reports difficulty in offloading his wound due to inability to use crutches due to poor balance. He find the wheelchair difficult to use and his knee scooter is not rated for his weight. He denies fever, chills or URI symptoms. 05/28/14 The patient's been attempting to offload with a knee scooter but is concerned it may not be appropriate or stable based on his weight. He does not report increased drainage from he right plantar 1st MTPJ ulcer and his blood sugars remain well controlled below 120. 05/21/14 The patient reports only minimal sanguinous drainage from his right foot plantar ulcer and has been offloading it by minimizing his walking. He's also completed a course of doxycycline that was given for a coag negative staph wound culture from the ulcer. He states his blood sugars are consistently below 120 and does not report hypoglycemia. 05/13/14 The patient reports minimal drainage from his right foot plantar ulcer. His recent wound culture from the site returned coag negative Staph and Diptheroids. 05/02/14 The patient reports less drainage from the right plantar foot ulcer and continues to off loading by minimizing walking and wearing a post-op shoe. 04/29/14 The patient continues to wear his surgical boot with the cutout for his right foot plantar diabetic ulcer. He reports no increase in drainage. 04/25/14 The patient reports minimal bloody drainage on the right foot plantar ulcer dressing that was placed yesterday. He does not report any drainage from the previously healed lateral foot ulcer. His edema in the right leg persists despite wearing compression stockings daily and his blood sugars remain well controlled below 120 with his last A1c approx 2 months ago at 7.4. 04/22/14 The patient reports no increase in drainage from his wounds today. He has been faithfully wearing his orthopedic boot with the cut-out area around his 5th MT ulcer. 04/15/14 The patient reports no increase in drainage from his wounds today. He reminds me that a TCC was the cause of his 5th MT ulcer and he is not excited about trying a TCC again. He is interested in HBOT if it will be beneficial to his wounds. 04/09/14 The patient reports increased drainage from his right 5th MT ulcer and feels his surgical boot he's been wearing for off loading may have caused pressure to the area. His blood sugars have improved and he also reports a 5 lb weight loss after doubling his dose of lasix over the past week. Of note, he did not liaise with his PCP prior to doing this. 04/04/14 The patient states that he was walking a bit more than usual yesterday but notes some sanguinous drainage on his plantar 1st MTPJ dressing for the past few days. He's also put on 7 lbs in the past week and feels his legs are more swollen than usual. He does not report chest pain, shortness of breath, or orthopnea. His blood sugars are also up a bit around 180. He's compliant with both his diabetes regimen and his diuretic therapy. 03/28/14 The patient reports no increased drainage or other complications from his right foot diabetic ulcers. 03/21/14 The patient reports minimal drainage from his right foot diabetic ulcers. He continues to minimally weight bear using a surgical boot and a walker. 03/14/14 The patient does not report increased drainage or other new issues regarding his right 5th MTPJ and right 1st MTPJ plantar ulcers. His blood sugars remain more elevated than usual with some between 150 and 180. 03/07/14 The patient reports no fever or increased right foot wound pain or drainage. 02/28/14 The patient reports that his blood sugar this morning is a bit elevated around 160 but has mostly been below 140 over the past few days. He's been off antibiotics for 3 days now and reports modest drainage from the right 5th MT ulcer while dressing changes are being done every two days. 02/24/14 The patient does not report any new issues regarding his right foot ulcers including increased drainage, fever, or chills. He completed his course of doxycycline yesterday. 02/17/14 The patient reports moderate yellow drainage from the right foot 5th MTPJ ulcer. He's completed a course of doxycycline and does not report fever or chills but states his blood sugars remain higher then normal in the 170's. His wound culture was positive for Enterobacter and his ESR was elevated at 41 and CRP at 2.7. 02/06/14 The patient does not report increased drainage from the right 5th MTPJ ulcer nor does he report fever or pain. He continues to off load with a walker and minimizing walking. He continues on doxycycline which was started empirically at his last visit and his culture has since grown Enterobacter which should be susceptible to doxy based on sensitivities. His xray of the foot was not concerning for osteomyelitis however his ESR and CRP are both moderately elevated. He also feels his legs are more swollen than usual and he continues to take his lasix as scheduled. 02/03/14 The patient does not report fever, chills, or pain in the right foot however when the TCC was removed today he's noted to have a sizable increase in the diameter and depth of what was a small 5th MTPJ ulcer. 01/14/14 The patient reports no new problems regarding is right diabetic foot ulcer. 12/31/13 The patient reports minimal serous drainage from his right 5th MTPJ ulcer and states he continues to off load his foot as much as possible. He does not report pain or drainage from the site of his right 1st MTPJ ulcer. 12/19/13 The patient tolerated with TCC without any complaints but there appears to be a small area of erythema over the right 5th MTPJ. He notes his blood sugars are typically below 120 and his A1c last week was 7.4. 12/13/13 The patient has no complaints regarding his TCC nor his plantar ulcer. 12/11/13 The patient returns for placement of a TCC today. He does not report any new problems regarding is plantar ulcer. 12/03/13 The patient states his plantar ulcer drainage is stable and he's continued to not use a cut-out foam doughnut over the ulcer. 11/26/13 The patient has kept the foam dressing in place from the last visit and has not used a cut-out foam dressing which we felt caused some deterioration of the foot ulcer. He has some mild drainage but no pain. 11/22/13 The patient returns for review of his plantar ulcer and callus that seems to be deteriorating despite an adjustment to his boot and off loading measures. The patient reports his callus accumulation is in spite of daily kerasal applications. Patient reports a new small wound on the left second toe. Josue states that it might be related to the brace. Patient had brace modified to help off load. 11/06/13 Josue states he was able to schedule with the prosthetic doctor tomorrow at noon. He reports no new problems or concerns. He also says that he is done with physical therapy since yesterday as insurance will not cover it any longer. 10/31/13 The patient reports he received his dressing supplies. Dressings changes are going well and no new problems are reported. He saw his water proofer, Dr. Solitario, on Monday for a check up and had and x-ray of the foot. 10/24/13 Joseu reports he has been staying off of his feet as much as possible. He has been changing the dressing as ordered and states there has been just a small amount of drainage. He recently ran out of his dressings and will need more ordered or the balance sent home with him. 10/17/13 Patient states he has no new problems or concerns. He did have a small increase in drainage the other day but he had walked more than normal the day before. 10/09/13 Josue states he has no new issues. Dressing changes are going well. 10/02/13 Josue states there have been no new issues with dressing changes. They have been changed once since his last visit. No complaints of pain with the wound. 09/20/13 Josue was discharged from wound care September 05. States that he has been using pumice stone on callus area where had previous wound and may have been too aggressive. Also has been on feet more and having increase in lower extremity edema. Continues to wear the tetragrip F he had received in the clinic 6 hours per day but has not ordered any yet. 09/27/13 Patient states that there have been no issues with using the tetra teleprinter. Asking about getting compression stockings from drug store for continued use. 7/17/14 Patient states he has set up physical therapy for the problems with his knee. He starts these treatments on 09/11. There has been no new issues with his wound and he changes the dressings about every two days. He reports little to no drainage. 08/06/13 States no new problems with wound area. Been using kerosol daily. 08/19/13 Patient states he twisted his knee a week ago, and it is effecting his walk slightly. He also complains of more edema in his legs, and has an appointment with his PCP tomorrow regarding the issue. No new problems or concerns with his wound. No new problems or concerns. Patient states he changed the dressing a few times this last week. Saw Dr. Solitario this past week for check up with no change o his management. 07/26/13 The patient has had new brace for one week and so far it is working out well. No other complaints at this time. 07/18/13 Patient got brace for foot and leg yesterday. No problems or concerns. 07/11/13 No problems or concerns. Changed dressing twice since last visit 07/04/13- Pt went to his PCP and his lasix were increased from 20mg to 40mg. He states his edema has decreased since then. Pt's diabetic foot brace (decreases lateral movement to reduce pressure on the sides of his feet) will arrive in about another week. 06/20/13- Pt reports increased edema in his feet for the last week, he has been walking more, but also sitting with his feet down more. With the increase in exercise he states his back has been hurting. On Sunday 06/18 pt went to [facility],and had his ankle brace fitting. 05/31/[address] Green this am. Changed dressing twice this week. Saw slip bridge operator (in [place]) on Monday. Considering ankle brace 05/24/13 states started walking program at 5 minutes at a time and taking the bus to clinic apt. 11/08/12 Pt is changing dressing every two days. Is concerned about the edema to the left leg that had the cellulitis. States it is warm. 11/15/12 patient has been having more nerve pain. He has been changing his dressing either every day or every other day. 11/22/12- Patient continues to change dressing about every day. No problems noted. Patient changing dressing about q o day. Thinks wound is less deep. 12/07/12 Pt only changed dressing twice since last visit. No concerns or problems. 12/18/12 When cleaning wound was able to aspirate large purlent sero-sang fluid from site. Pt states he feels it was doing better. 12/24/12 Decreased drainage and pt states he feels the wound is doing well. 12/31 Pt states he has had decreased draiange from wound. Pt denies pain. 01/07/13Pt states the kerasol didn't really do much, but admits he was only applying it every other day and is not sure what his expectations should be. He believes he may have bumped a toe on the left foot and has been concerned about some bruising there but admits it is getting better. Still does not have his new shoes and says he is exploring other options like disability. 01/21/13 feeling well since last visit. feels he may have bumped third toe so wants it to be seen. Level 2- 3 neuropathic pain in right foot 02/27/12 Patient changing bandaid on foot and applying kerasol every three days. Patient got new PCP and saw him yesterday. Patient states things are going well with the wound. 03/12/[address] Green for edema and will see him tomorrow for follow up.03/25/13 states has drainage from bottom of foot. concerned about new wounds Sates he changes dressing every 2 days. Changed this AM as it came off. Using Ca alginate and foam. States no drainage last night 04/19/13 changes dressing every 2-3 days. no problem. Has appt with Dr. Solitario 04/30/13 and new shoes have arrived. To be fitted next week 04/26/13 Is wearing new shoes and states they are working well.Changed dressing twice this week 05.03.[address] Solitario last week. will see again in [address] Green started antibiotic for sinus infection States sinuses not a lot better. Has started Lakshmi D, helping some. States wound about same. Changing dressing 2 x this week as dressing came off. States added collagen one time. Past Medical History This information was obtained from the patient Patient has a medical history of: Left lower extremity cellulitis - 10/15/2012 Diabetic foot ulcer - 09/27/2013 (Hernandez grade 2; right plantar surface; Hernandez grade III (Enterobacter positive wound culture 02/03/14), lateral right 5th MTPJ originally dx 12/24/13; MRSA positive culture 06/04/14 ) Chronic venous hypertension Type II Diabetes Hypertension Morbid Obesity Kidney Stones Hx MRSA Diabetic neuropathy Hallux valgus (right 1st toe) UTI (hospital admit) Cellulitis of legs (June and September 2012- hospital admit) Cataract surgery (10/13/15) Diabetic Neuropathy Complaints and Symptoms This information was obtained from the patient Patient complains of: General Notes: I have reviewed and concur with the Review of Systems and Past Family Social History documents completed by the clinician, I have reviewed and concur with the Wound Assessment document completed by the clinician Cardiovascular (Central/Peripheral): Lower extremity (leg) swelling Integumentary (Hair/Skin/Nails): Open Sore Musculoskeletal: Deformities, Muscle Weakness Neurological: Abnormal Gait, Loss of Protective Sensation, Tremors Prior Wound History: Bleeding, Drainage Patient denies complaints or symptoms related to: Cardiovascular (Central): Irregular heart beat Cardiovascular (Central/Peripheral): Lower extremity (leg) resting pain Constitutional Symptoms (General Health): Chills, Fever, Marked Weight Change Ear/Nose/Mouth/Throat: Hearing Loss / Aid Gastrointestinal (GI): Nausea / Vomiting Hematologic/Lymphatic: Bleeding / Clotting Disorders, Bleeding Tendency Musculoskeletal: Assistive Devices Prior Wound History: Erythema, Malodor, Pain Psychiatric: Memory Loss Respiratory: Oxygen Use, Shortness of Breath OBJECTIVE Constitutional Vital signs reviewed and noted. Height/Length: 71 in (180.34 cm), Weight: 358.9 lbs (163.14 kgs), BMI: 50.1, Temperature: 98.5 ?F (36.94 ?C), Pulse: 86 bpm, Respiratory Rate: 16 breaths/min, Blood Pressure: 130/59 mmHg, Capillary Blood Glucose: 197 mg/dl, Pulse Oximetry: 97 %. Vital Signs Notes: Glucose per patient Eyes: Conjunctiva clear and without icterus. Respiratory: No respiratory distress. Even respirations and without use of accessory muscles.. Cardiovascular: 1+ right lower extremity edema. Gastrointestinal (GI): Obese. Nondistended.. Integumentary (Hair, Skin) No periwound erythema, warmth, or significant drainage. No periwound rashes appreciated or noted otherwise.. Refer to appropriate clinician wound documentation for this visit; right foot ulcer extends to subcut with base partially covered with pink granulation, remainder fibrin and slough. Significant amount of callus in the periulcer area. Wound #6 Right, Plantar Foot is a chronic Hernandez Grade 2 Diabetic Ulcer and has received a status of Not Healed. Subsequent wound encounter measurements are 1cm length x 0.3cm width x 0.3cm depth, with an area of 0.3 sq cm and a volume of 0.09 cubic cm. No tunneling has been noted. No sinus tract has been noted. No undermining has been noted. There is a moderate amount of sero-sanguineous drainage noted which has no odor. The patient reports a wound pain of level 0/10. The wound margin is callus. Wound bed has No epithelialization, No eschar, No slough, Yes pink, firm granulation. The periwound skin color is normal. The periwound skin exhibited: Callus, Moist. The periwound skin did not exhibit: Brawny Induration, Edema, Excoriation, Induration, Crepitus, Fluctuance, Friable, Rash, Dry/Scaly, Maceration. The temperature of the periwound skin is WNL. Periwound skin does not exhibit signs or symptoms of infection. Local Pulse is Palpable. Neurological: Cranial nerves grossly intact with symmetric function normal by informal observation.. ASSESSMENT Active Problems ICD-10 (Encounter Diagnosis) E11.621 - Type 2 diabetes mellitus with foot ulcer (Encounter Diagnosis) L97.512 - Non-pressure chronic ulcer of other part of right foot with fat layer exposed (Encounter Diagnosis) L84 - Corns and callosities PROCEDURES Wound #6 Wound #6 (Diabetic Ulcer) is located on the right, plantar foot. A skin/ subcutaneous tissue level surgical debridement with a total area debrided of 0.3 sq cm was performed by Stephen Nice MD. Subcutaneous was removed along with devitalized tissue: callus and slough. The following instrument(s) were used: curette. Pain control was achieved using 4% Lido. A time out was conducted prior to the start of the procedure. A moderate amount of bleeding was controlled with silver nitrate. The procedure was tolerated well with a pain level of 0 throughout and a pain level of 0 following the procedure. Post Debridement Measurements: 1cm length x 0.3cm width x 0.3cm depth; with an area of 0.3 sq cm and a volume of 0.09 cubic cm; Additional Information Muscle fascia or bone removed and sent to pathology?: No PLAN Wound Orders: Wound #6 Right, Plantar Foot Anesthetic Topical Xylocaine to wound bed. - In clinic only. Cleanser Cleanse Wound: - Normal saline and gauze. May Shower. - Do not get wound wet with tap water. Use cast protector when showering. Topical Treatments Antibiotic/Antimicrobial Ointment/Cream. - Iodosorb to wound base. Dressings Cover and secure with: - Foam and hypafix tape. Change Dressing: - Every other day. Additional Orders: Off-Loading Keep weight off: - Right foot as much as possible. Use Knee scooter when able. Use/Wear when Walking: - Offloading shoe. Compression/Edema Control Elevation of leg(s) above the level of the heart when sitting. Avoid prolonged standing in one place. - Please avoid standing or walking for long periods of time. Knee-high gradient compression stockings. - Tetragrip F stockings to both legs. On in the morning and off at night. Follow-Up Appointments Return Appointment: - - One week Other information: If you develop fever, chills, increased pain, drainage, redness or swelling please call our office. If after hours, respond to the ER. Should you experience any significant changes in your wound(s) or have any questions regarding your home care instructions please contact the wound center @ [phone]. If after hours, contact your primary care physician or go to the hospital emergency room. Scribing Attestation I attest, as the nurse, that I scribed these orders for the physician. I've reviewed the clinician's documentation and agree with the evaluation and plan as written. In addition, the patient's ulcer demonstrates evidence of non-viable devitalized tissue which will continue to benefit from sharp debridement to help promote granulation and expedite healing. Also, due to the heavy periulcer callus formation we'll increase his visits again to weekly. Electronic Signature(s) Signed By: Date: Stephen Nice MD 10/03/2017 16:47:11 Entered By: Stephen Nice on 10/03/2017 16:38:32
== END ==
PROVIDERS: PCP Family Medicine; Visit Provider Internal Medicine
DX: E11.621 Type 2 diabetes mellitus with foot ulcer (principal); L97.512 Non-pressure chronic ulcer of other part of right foot with fat layer exposed; L84 Corns and callosities
CPT/HCPCS: 11042

== ENCOUNTER → 2017-10-10 10:35 | Outpatient (CLI) | payer MEDICARE, OTHER, SELFPAY | PROVIDERS: PCP Family Medicine; Visit Provider Internal Medicine | DX: E11.621 Type 2 diabetes mellitus with foot ulcer (principal); L97.512 Non-pressure chronic ulcer of other part of right foot with fat layer exposed; G25.0 Essential tremor; L84 Corns and callosities | CPT/HCPCS: 11042 ==

== ENCOUNTER → 2017-10-13 08:54 | Outpatient (CLI) | payer MEDICARE, OTHER, SELFPAY | PROVIDERS: PCP Family Medicine; Visit Provider Internal Medicine | DX: E11.621 Type 2 diabetes mellitus with foot ulcer (principal); L97.512 Non-pressure chronic ulcer of other part of right foot with fat layer exposed | CPT/HCPCS: 11042 ==

== ENCOUNTER → 2017-10-17 09:27 | Outpatient (CLI) | payer MEDICARE, OTHER, SELFPAY ==
--- NOTE | 2017-10-17 | OV.WND_ITS ---
Progress Note Details Patient Name: Josue Mesa Patient Number: [id number] PatientPatientDate: 10/17/2017 Clinician: Fay Moncada Clinician Cosigner: Estephanie Grant Physician / Divider Operator: Stephen Nice SUBJECTIVE Chief Complaint This information was obtained from the patient Diabetic ulcer to right plantar foot. Allergies Augmentin (Severity: Mild, Reaction: nausea) HPI This information was obtained from the patient 10/17/17. Seen by Dr. Nice. The patient does not report increased drainage associated with the chronic right 1st MTPJ diabetic ulcer since his last visit. He continues to wear his offloading shoe as recommended which has been modified to add a layer of foam that's had a recess cut out at the site of the ulcer. 10/13/17. Seen by Dr. Nice. The patient does not report increased drainage associated with the chronic right 1st MTPJ diabetic ulcer since his last visit. 10/10/17. Seen by Dr. Nice. The patient does not report increased drainage associated with the chronic right 1st MTPJ diabetic ulcer since his last visit. 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 10/03/17. Seen by Dr. Nice. The patient does not report increased drainage associated with the chronic right 1st MTPJ diabetic ulcer since his last visit which was 10 days ago. 09/22/17. Seen by Dr. Nice. The patient's xray of his right foot showed a 1st MTPJ intra- articular fracture and he was seen by Dr. Solitario who recommended continued offloading with the forefoot surgical offloading shoe but no further intervention at this time. He does not report pain in the foot nor significant drainage associated with the plantar 1st MTPJ diabetic foot ulcer since his last visit. 09/19/17. Seen by Dr. Nice. The patient reportedly fell on Monday injuring his right foot. He was seen by his PCP yesterday who felt it may have been infected and he was started on Keflex. He does not report pain in the foot and is able to bear weight as usual. He also does not report increased drainage associated with the chronic right 1st MTPJ diabetic ulcer since his last visit. 09/15/17. Seen by Dr. Nice. The patient arrived today feeling quite week and shaky and states he was seen in the ER earlier this morning for similar complaints and subsequently discharged to his [facility]. His CT scan and labs were unremarkable however he was unable to leave a urine sample for analysis at that time. His symptoms persist during our visit however there's no confusion or other acute complaints. He's also finished his course of Bactrim that was treating the recent right diabetic foot ulcer infection and he does not report increased drainage for pain at the ulcer site. 09/12/17. Seen by Dr. Nice. The patient does not report increased drainage associated with the chronic right 1st MTPJ diabetic ulcer since his last visit. He also continues on doxycycline for the recent Staph cultured from the ulcer and he does not report adverse side effects. 09/08/17. Seen by Dr. Nice. The patient's now on doxycycline for the recent coag negative Staph culture taken from the chronic right 1st MTPJ diabetic ulcer. He does not report adverse side effects nor increased drainage or pain associated with the ulcer. 09/05/17. Seen by Dr. Nice. The patient does not report increased drainage associated with the chronic right 1st MTPJ nor right 1st toe dorsal diabetic ulcers since his last visit however the nurse reports increased bloody drainage on the dressing and increased maceration and callus along the distal margin of the ulcer. His recent wound culture grew coag negative Staph and he's not currently on antibiotics. 09/01/17. Seen by Dr. Nice. The patient does not report increased drainage associated with the chronic right 1st MTPJ nor right 1st toe dorsal diabetic ulcers since his last visit. 08/29/17. Seen by Dr. Nice. The patient does not report increased drainage associated with the chronic right 1st MTPJ diabetic ulcer since his last visit. He does complain of progressive upper extremity tremors that are most noticeable in the morning and evening and may occur after he takes his metformin. He does not report low blood sugars and he'll bee seeing his PCP today to discuss this. 08/25/17. Seen by Dr. Nice. The patient reports being more active and on a boat over the holiday which was no conducive to using his knee scooter. He feels the right 1st MTPJ ulcer has deteriorated and he has a new ulcer over the dorsum of the right 1st toe now. 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 08/22/17. Seen by Dr. Nice. The patient was seen at [facility] and they provided a new orthotic insert to help better offload the chronic right 1st MTPJ diabetic ulcer while he's wearing his surgical, forefoot offloading show. He does not report increased drainage or pain associated with the ulcer and is using a knee scooter also to help offload. He has a severe valgus deformity which results in heavy callus formation and has required twice weekly debridements which has been effective in gradually promoting the ulcer to heal. He's also been applying topical gentamicin to the ulcer base to treat the recent coag negative Staph culture that was taken due to increased drainage. 08/18/17. Seen by Dr. Nice. The patient's wound culture taken from the chronic right foot diabetic ulcer at his last visit grew an intermediately resistant coag negative Staph and his dressing change and application of gentamicin is taking place only every 2-3 days. He does not report pain in the foot but staff report his dressing as being 'bloody' today. 08/15/17. Seen by Dr. Nice. The patient reports what may be increased drainage on his right foot diabetic ulcer dressings as mentioned by his medicare coordinator in assisted living. He's using a knee scooter as recommended and does not report pain in the foot. He's also asking when it will be appropriate to have his right foot orthotic adjusted in his diabetic shoe although he's currently wearing a forefoot offloading shoe at all times. 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 08/11/17. Seen by Jean-Pierre Pinto PA-C. The patient reports stable drainage from his right foot diabetic ulcer. Again his blood sugars have been above 150 since his last visit. 08/08/17. Seen by Jean-Pierre Pinto PA-C. The patient reports no increase in drainage from his right foot diabetic ulcer. His blood sugars this week have reportedly been mostly above 150. 08/04/17. Seen by Dr. Nice. The patient does not report increased drainage associated with the chronic right plantar foot diabetic ulcer since his last visit and he's offloading appropriately as recommended. He also was seen by Dr. Solitario, podiatry, who discussed possible surgical options to address the severe right 1st toe valgus deformity that's complicating the ulcer and contributing to heavy periculcer callus formation however there's no plan of intervention at this time. 08/01/17. Seen by Dr. Nice. The patient does not report increased drainage associated with the chronic right plantar foot diabetic ulcer since his last visit and he's offloading appropriately as recommended. 07/28/17. Seen by Dr. Nice. The patient does not report increased drainage associated with the chronic right plantar foot diabetic ulcer since his last visit and he's offloading appropriately as recommended. We've increased his visits to twice weekly due to the very heavy callus formation that's contributing to the refractory nature of the ulcer. 07/25/17. Seen by Dr. Nice. The patient does not report increased drainage associated with the chronic right plantar foot diabetic ulcer since his last visit and he's offloading appropriately as recommended. Kerasal is not being applied to the periulcer callus and his visits have been decreased to once weekly over the past few weeks while the ulcer has been improving. 07/18/17. Seen by Dr. Nice. The patient does not report increased drainage associated with the chronic right plantar foot diabetic ulcer since his last visit and he's offloading appropriately as recommended. 07/11/17.Seen by Dr. Nice. The patient has been wearing his offloading shoe and using a knee scooter as recommended and does not report significant drainage associated with the chronic right plantar foot diabetic ulcer since his last visit. 07/04/17. Seen by Dr. Nice. The patient has been wearing his offloading shoe as recommended and does not report significant drainage associated with the chronic right plantar foot diabetic ulcer since his last visit. 06/30/17. Seen by Dr. Nice. The patient has been wearing his offloading shoe as recommended and does not report significant drainage associated with the chronic right plantar foot diabetic ulcer since his last visit. 06/27/2017. Seen by Dr. Nice. The patient has been wearing his offloading shoe as recommended and does not report significant drainage associated with the chronic right plantar foot diabetic ulcer since his last visit. His blood sugars are also mostly below 100 now and he's using his knee scooter as well to further optimize offloading. 06/23/2017. Seen by Dr. Nice. The patient does not report pain nor increased drainage associated with the chronic right plantar foot diabetic ulcer since his last visit. He is wearing his offloading shoe as recommended now and his blood sugar control has improved with some below 200. 06/20/2017. Some by Dr. Nice. The patient is not report increased drainage position with chronic right plantar foot diabetic ulcer since last visit. He is now clindamycin for the resistant Staphylococcus haemolyticus positive culture that was taken to the last visit. His blood sugars continued to be elevated and or over 300 earlier this morning despite having his Lantus dose increased recently. He is also wearing his diabetic shoes but not an offloading surgical shoe as I have been recommending. 06/16/17. Seen by Dr. Nice. The patient does not report increased drainage associated with chronic right plantar foot diabetic ulcers since his last visit. His recent wound culture grew a resistant coag negative staph organism. He also met with his primary care provider, Dr. Green, to increase his dosing of Lantus and plans to work with him on dietary measures to help gain better control of his elevated blood sugars. 06/13/17. Seen by Dr. Nice. The patient's blood sugars again are over 300 today and his appointment with his primary care provider to address this. He does not report any acute changes regarding the chronic right plantar foot diabetic ulcer and is using his knee scooter to help facilitate offloading as much as possible. 06/09/17. Seen by Dr. Nice. The patient does not report significant drainage associated with the chronic right plantar foot diabetic ulcer since his last visit. 06/06/17. Seen by Dr. Nice. The patient does not report significant drainage associated with the chronic right plantar foot diabetic ulcer since his last visit and he's lost another 7 lbs since increasing his dose of Lasix due to abnormal weight gain and significant bilateral lower extremity edema. 06/02/17. Seen by Dr. Nice. The patient does not report significant drainage associated with the chronic right plantar foot diabetic ulcer since his last visit. His increase his dose of Lasix and has lost 7 pounds over the past 3 days. This is been done due to the significant increase in leg swelling over the past 2 weeks. 05/30/17. Seen by Dr. Nice. The patient does not report increased drainage associated with chronic right plantar foot diabetic ulcer since his last visit however he does feel that the right foot and leg are swelling considerably over the past few days. We note a 4 pound weight gain since his last visit on Monday and he states is taking his diuretic as prescribed. 05/26/17. Seen by Dr. Nice. The patient does not report increased drainage associated with chronic right plantar foot diabetic ulcers since his last visit. His culture grew a somewhat resistant coag negative staph and he is not currently on antibiotics. 05/23/17. Seen by Dr. Nice. Staff reports some increased drainage on his dressings covering the chronic right plantar foot diabetic ulcer today. His blood sugar is again over 300 and he states he is eating rice and potatoes trying to cut back. He continues offload with his knee scooter as recommended and does not report pain or any other acute ulcer related issues today. 05/19/17. Seen by Dr. Nice. The patient does not report increased pain or drainage associated with chronic right plantar foot diabetic ulcer since his last visit. He is using his knee scooter as recommended and has had significant problems with heavy callus at the site due to a severe right first toe valgus deformity. He is now attending clinic twice weekly for debridement of the ulcer and complicating callous. 05/16/17. Seen by Dr. Nice. The patient does not report increased drainage or pain associated with chronic right plantar foot diabetic ulcer since his last visit. Of note, the patient's blood sugar as 271 today and his A1c was 9.8 in March. 05/12/17. Seen by Dr. Nice. The patient does not report increased pain or drainage associated with chronic right plantar foot diabetic ulcer since his last visit. He is using his knee scooter to help offload the site which is particularly important based on patient's morbid obesity coupled with his severe first MTPJ valgus deformity. 05/09/17. Seen by Dr. Nice. The patient does not report increased drainage or pain associated with the chronic right plantar foot diabetic ulcer since his last visit. He states his blood sugars continue to be above 200 consistently although are improving with compliance to a lower carbohydrate type diet. He was started on metformin about a month ago he complains of some intermittent upper extremity weakness since then and will be discussing this with his primary care provider. He is also awaiting his new diabetic shoes that are being adjusted to help accommodate for his severe right first toe valgus deformity. 05/02/17. Seen by Jean-Pierre Pinto PA-C. The patient reports stable drainage from his right 1st toe ulcer and blood sugars continue to be above goal. 04/25/17. Seen by Jean-Pierre Pinto PA-C. The patient reports his blood sugars have been above 150 this week. He does not report increased drainage from his right 1st toe diabetic ulcer. 04/18/17. Seen by Dr. Nice. The patient does not report increased drainage associated the chronic right first toe diabetic ulcers since his last visit. 04/11/17. Seen by Jean-Pierre Pinto PA-C. The patient reports he is developing more calloused areas on his feet and is concerned about new ulcers occurring. His chronic 1st toe diabetic ulcer has been stable. 04/04/17. Seen by Jean-Pierre Pinto PA-C. The patient reports he has not been able to get his blood sugars below 150. Drainage is reportedly decreased from his diabetic foot ulcer. 03/30/17. Seen by Jean-Pierre Pinto PA-C. The patient reports continued high blood sugars, all above 150. Drainage from his ulcer is not increased. 03/23/17. s Seen by Jean-Pierre Pinto PA-C. The patient reports blood sugars above 150 again this week. He is concerned that something must be going on with an infection as he believes his diet has not changed and thus his sugars should be lower. His wound has had stable drainage. 03/15/17. Seen by Jean-Pierre Pinto PA-C. The patient reports he has had some blood sugars above 150 this week. He reports no increase in drainage from his right 1st toe diabetic ulcer. 03/08/17. Seen by Dr. Nice. The patient was discharged from the hospital recently following treatment for cellulitis associated with the chronic right first toe diabetic ulcer. He grew MRSA from the wound culture and was treated with IV vancomycin and is now on Bactrim. He does not report pain nor significant drainage associated with the ulcer nor side effects from antibiotics. 02/23/17. Seen by Dr. Nice. The patient does not report increased drainage associated the chronic right first toe diabetic ulcers since his last visit. The patient also states that he is more active over the holidays and was unable to use his knee scooter at times while walking outside due to safety concerns. 02/08/17. Seen by Dr. Nice. The patient does not report increased drainage associated the chronic right first toe diabetic ulcers since his last visit. He states he is using his offloading shoe when at home and a knee scooter went out. 02/01/17. Seen by Dr. Nice. The patient does not report increasing pain or drainage associated with chronic right first toe diabetic ulcer since his last visit. 01/25/17. Seen by Dr. Nice. The patient does not report increasing pain or drainage associated with chronic right first toe diabetic ulcer since his last visit. 01/18/17. Seen by Dr. Nice. The patient does not report increasing pain or drainage associated with chronic right first toe diabetic ulcer since his last visit. Of note, the patient's blood sugar is over 260 again today and he admits that it's been significantly elevated for a number of weeks. He has an appointment with his primary care provider to discuss this next week. 01/11/17. Seen by Dr. Nice. The patient does not report increasing pain or drainage associated with chronic right first toe diabetic ulcer since his last visit. He states his blood sugars have been running high recently and he is going to follow-up with his primary care provider in the near future to address this. 01/04/17. Seen by Dr. Nice. The patient does not report increased drainage associated with chronic right first foot diabetic ulcers since his last visit. He's also been applying Kersal to the periulcer as recommended. 12/28/16. Seen by Dr. Nice. The patient does not report increased drainage associated with chronic right first foot diabetic ulcers since his last visit. 12/22/16. Seen by Dr. Nice. The patient does not report increased drainage associated with chronic right first foot diabetic ulcers since his last visit. He's not been applying Kersal to the periulcer callus and does not appear to be using his knee scooter at all times to offload the ulcer. 12/15/16. Seen by Jean-Pierre Pinto PA-C. The patient reports he continues to have blood sugars above 150 this week. He recently saw his PCP, they did not alter his diabetic care plan. His visit was a follow up for an ER visit for chest pain which was negative for CT and was thought to be epigastric in origin. His diabetic ulcer of the right foot has not had increased drainage. 12/06/16. Seen by Jean-Pierre Pinto PA-C. The patient reports that he has found his knee scooter and plans to start using it today. He also reports most of his blood sugars have been above 150. Drainage from his ulcer has been stable. 11/25/16. Seen by Dr. Nice. The patient does not report increased drainage associated with chronic right first foot diabetic ulcers since his last visit. He is now on antibiotics for wound infection and does not report adverse side effects. Of note, he is not yet using a knee scooter nor offloading shoe as we recommended last week. 11/18/16. Seen by Dr. Nice. The patient returns to our clinic and presents with recurrence of a right first MTPJ plantar diabetic ulcer. He states it started a couple weeks ago when he was attempting to remove overlying callus at home. He does not report significant drainage or pain associated with the ulcer and is not currently on antibiotics. He also states his recent A1c was 7.8. His blood sugar in clinic today is 250. 01/11/16 Seen by Jean-Pierre Pinto PA-C. The patient reports no drainage from his chronic right 1st MTPJ joint since his last dressing change. 01/04/16 Seen by Jean-Pierre Pinto PA-C. The patient reports minimal drainage from his chronic right 1st MTPJ ulcer. He has recently seen his PCP and his A1c was 7.7. His lower extremity edema, abnormal weight gain and kidney failure are stable with his diuretics recently being adjusted. 12/28/15. Seen by Dr. Nice. The patient does not report significant drainage associated with the chronic right 1st MTPJ diabetic ulcer since his last visit however he does complain of increasing shortness of breath, fatigue, and an 18lb weight gain over the past week despite taking his diuretics as recommended. He does not report chest pain or cough and his blood sugars remain relatively well controlled with most below 150. 12/16/15. Seen by Dr. Nice. The patient does not report significant drainage associated with the chronic right 1st MTPJ diabetic ulcer since his last visit. He's applying kerasal to the surrounding callus as recommended and offloading nearly at all times using his knee scooter. 12/07/15 Seen by Jean-Pierre Pinto PA-C. The patient reports compliance with his new offloading brace and shoe and has seen minimal drainage from his diabetic foot ulcer since his last visit. 11/30/15. Seen by Dr. Nice. The patient does not report significant drainage associated with the chronic right 1st MTPJ diabetic ulcer since his last visit and he's wearing a combined AFO / diabetic shoe system that he feels may be better offloading the ulcer. 11/23/15 Seen by Jean-Pierre Pinto PA-C. The patient reports that he is wearing his new diabetic shoes and inserts. He is continuing physical therapy for gait training and reports continued difficulty with stairs and occasional bouts of dizziness. He reports stable drainage from his chronic right foot diabetic ulcer. 11/16/15 Seen by Jean-Pierre Pinto PA-C. The patient reports stable drainage from his right foot diabetic ulcer. He also reports that his diabetic shoes and inserts are quite old and worn out. He is ambulating with is 4 wheeled walker and is working with PT for gait training. 11/09/15 Seen by Jean-Pierre Pinto PA-C. The patient reports that he is still using a 4 wheeled walker instead of a 4 footed walker. PT is working with him to improve his gait and balance. Drainage from his right foot ulcer has been stable. 11/02/15 Seen by Jean-Pierre Pinto PA-C. The patient reports no increase in drainage from his chronic diabetic foot ulcer. He has had multiple blood sugars above 150 this week. 10/29/15. Seen by Dr. Nice. The patient was recently discharged from [facility] following treatment of sepsis thought to possibly be related to his chronic right 1st MTPJ diabetic ulcer that grew Enterococcus just prior to his admission. He now feels generally weak , has lost 18 lbs following diuresis, and is residing at home where he's minimizing his weight bearing on the right foot. He does not report significant drainage from the ulcer nor pain and states his blood sugars remain mostly around 150. He also continues on levofloxacin and does not report adverse side effects. 10/14/15. Seen by Dr. Nice. The patient report persistent bloody drainage from the chronic right 1st MTPJ diabetic ulcer and he feels the callus has increased significantly since it was last debrided 2 week ago. He does not report fevers or feeling unwell and states his blood sugars are well controlled with most below 150. He's using his AFO when walking nearly at all times to facilitate offloading the significant right 1st MTPJ valgus deformity. 09/24/15 Seen by Jean-Pierre Pinto PA-C. The patient reports that he is no ran out of lasix due to a mix up at the pharmacy and unavailability of his strength/dose of tablets. He continues trying to offload his ulcer with his wheeled walker and notes stable ulcer drainage. 09/17/15. Seen by Dr. Nice. The patient continues to report some bloody drainage from the chronic right 1st MTPJ diabetic ulcer and he's started reducing his activity and continues to use his knee scooter at home to offload the foot. 09/10/15. Seen by Dr. Nice. The patient states he was more active over the past week and notices increased bloody drainage associated with chronic right first MTPJ diabetic foot ulcer. He continues to wear his AFO and states his blood sugars are mostly below 150. 09/03/15. Seen by Dr. Nice. The patient does not report significant drainage associated with the chronic right first MTPJ diabetic ulcer over the past week. He does feel that the callus smaller than on previous visits and is wearing his AFO at all times. Of note, he 's now in doxycycline to treat the recent coag negative Staph cultured from the ulcer at his last visit. 08/27/[address] Nice. The patient reports increase bloody drainage associated with the chronic right foot 1st MTPJ diabetic ulcer and he feels his activity has increased due to physical therapy and increased mobility over the past week. He does not report pain at the ulcer site, fevers, or feeling unwell in general. 08/20/[address] Nice. The patient does not report significant drainage associated with the chronic right foot 1st MTPJ diabetic ulcer over the past week and he's using a knee scooter as much as possible when mobilizing to offload the foot. His blood sugars also remain relatively well controlled with most below 150. 08/13/[address] Nice. The patient does not report significant drainage associated with the chronic right foot diabetic ulcer over the past week and he's offloading using a knee scooter as recommended. His blood sugars remain relatively well controlled with most below 150. 08/06/[address] Nice. The patient reports recurrence of some drainage from the chronic right foot diabetic ulcer over the past few days and states he's been more active with physical therapy. His blood sugars remain well controlled with most below 150 and he's wearing his AFO when away from the house and using a knee scooter most of the time while at home to facilitate offloading. He's also applying Kerasal to the callus in the periwound area as recommended. 07/23/[address] Nice. The patient does not report drainage from the chronic right 1st MTPJ diabetic ulcer over the past week and he's using his new AFO and knee scooter to offload the foot. 07/16/[address] Nice. The patient does not report pain or drainage from the chronic right 1st MTPJ diabetic ulcer and he's wearing his newer AFO while offloading with a knee scooter most of the time. 07/09/[address] Nice. The patient does not report drainage or pain associated with his chronic right foot 1st MTPJ diabetic ulcer and he's been offloading by using a knee scooter when mobilizing. His supervisor prop making is present today as well to discuss possible adjustments to his AFO with the goal of reducing callus formation that's in part caused by his significant right 1st toe valgus deformity. He also states his blood sugars remain well controlled below 150 consistently. 07/03/[address] Nice. The patient does not report significant drainage from the chronic right foot diabetic ulcer and he's offloading by using his knee scooter. His blood sugars also remain relatively well controlled around 150 consistently. 06/26/[address] Nice. The patient report some continued bloody drainage from the chronic right 1st MTPJ diabetic ulcer however he does not report associated pain , fevers or feeling unwell. His blood sugars remain consistently below 150 and he's using his walker and knee scooter for offloading as recommended. He's also been actively working with his supervisor prop making in hopes of better offloading the ulcer and address his significant callus formation and left 1st MTPJ valgus deformity. 06/19/[address] Nice. The patient does not report pain associated with his chronic right 1st MTPJ diabetic ulcer however he states some bloody drainage persists on the dressings. He does not report fevers or feeling unwell and states his blood sugars are well controlled below 150 consistently and he's using a knee scooter and walker to offload the ulcer when mobilizing. He also does not report pain or drainage associated with the left 2nd toe wound. 06/11/[address] Nice. The patient was recently discharged from [facility] following a fall at home that resulted in a broken rib. Regarding his chronic right 1st MTPJ diabetic ulcer he does not report significant drainage and has been offloading through bed rest and using a knee scooter while at home. His blood sugars also remain well controlled with most below 150. He also reports a new wound on the dorsum of the left 2nd toe that he believes occurred during his fall. He does not report associated pain or significant drainage. 05/28/[address] Nice. The patient reports some increased bloody drainage from the chronic right 1st MTPJ diabetic foot ulcer over the weekend associated with a new 'soft' area along the distal margin. He's been more active the past the past few days but states he's using his knee scooter to offload at all times. His blood sugars also remain well controlled with most around 120 and he's no longer on antibiotics. He also continues to wear his old AFO but states there was a recent adjustment of a cut out lined with 'soft' plastic in the area of the ulcer. 05/21/[address] Nice. The patient report less drainage from the chronic right foot 1st MTPJ diabetic ulcer over the past week. He's completed his course of doxycycline and he continues on fluconazole for the recent Alma Delia positive wound culture. He's also reverted back to using his previous AFO while his newer one is adjusted to try to address the recent significant increase in callus formation that's occurred. His blood sugars also remain well controlled under 150 consistently and his recent episodes of hypoglycemia has resolved with an adjustment of his insulin regimen. 05/14/[address] Nice. The patient reports less drainage on the dressings covering the chronic right 1st MTPJ diabetic ulcer since starting doxycycline for a coag negative Staph wound culture along with fluconazole for the alma delia positive culture. His blood sugars remain well controlled below 120 and his insulin has been decreased due to the recent episodes of hypoglycemia. His diuretic has also been decreased as he's lost considerable water weight over the past month. 05/07/[address] Nice. The patient continues to report modest bloody drainage on the dressing covering the chronic right 1st MTPJ diabetic ulcer and he continues to limit his walking but has not been using a knee scooter or walker around the house to facilitate offloading. His blood sugars remain well controlled mostly below 150. 04/30/[address] Nice. The patient continues to report bloody drainage on his right foot diabetic ulcer dressing and he's feeling a bit unwell in general without reporting specific symptoms. He also continues to have intermittent low blood sugars in the 50-60' s and has not discussed this issue with his PCP recently. He's wearing his AFO daily but admits to having difficulty using his walker at all times due to limited space in his new apartment. 04/27/15 Seen by Jean-Pierre Pinto PA-C. The patient reports nonspecific malaise for the past few days. Last night, he reports feeling to tired, weak and shaky to watch TV and went to bed very early. His malaise has been increasing over the past 1-2 weeks and he has frequently been monitoring his blood sugar. His blood sugars are lower than normal lately but never below 100. He has been reducing his insulin dosing in the past 2 weeks to compensate for the lower numbers. He continues to loose weight while continuing to take Lasix and metolazone. 04/23/[address] Nice. The staff and patient continue to report at least moderate serosanquinous drainage from the chronic right 1st MTPJ diabetic ulcer. His blood sugars have been well controlled over the past week with most below 150. He does report being more active than usual while he's been moving to his new home and he also states he continues to loose weight following a recent increase in his diruetics. His wound culture from the last visit reported heavy Diptheroids and he's not currently on antibiotics. 04/20/15 Seen by Jean-Pierre Pinto PA-C. The patient reports that he has moved house and has been on his feet much more so as a consequence. He reports increased drainage from his right plantar foot diabetic ulcer. In addition he believes he struck it against a hard surface when moving. He has had no significant pain with weightbearing but is insensate in this area. 04/15/[address] Nice. The patient reports continued weight loss, and decreasing leg swelling, since starting metolazone totaling about 20 lbs. He also feels the chronic right 1st MTPJ diabetic ulcer has been draining increasing amounts of sanguinous fluid. His blood sugars remain well controlled with most below 120 and he does not report fever or feeling unwell. 03/25/[address] Nice. The patient states he walked a considerable amount yesterday and now reports some bleeding from the chronic right 1st MTPJ diabetic foot ulcer. He also continues to report increased weight gain and now some shortness of breath when walking short distances. He has a low grade fever today but does not report a cough or feeling unwell otherwise. 03/11/2015 Seen by Jean-Pierre Pinto PA-C. The patient's weight has increased 10 lbs in the past week. He reports increased shortness of breath with exertion. He denies chest pain, jaw, neck, shoulder pain or shortness of breath at rest. He has been compliant with his diuretics. His ulcer drainage has been stable. 03/04/2015 Seen by Jean-Pierre Pinto PA-C. The patient is wearing his newly adjusted AFO and reports an increase in walking since last visit. He was unaware that his temperature was elevated and reports no URI symptoms such as cough or sore throat. 02/24/2015 Seen by Jean-Pierre Pinto PA-C. The patient believes his ulcer has now been draining more despite trying to offload the ulcer. 02/11/[address] Nice. The patient reports less drainage from the chronic right 1st toe diabetic ulcer and he's still waiting for approval for his new AFO. 02/04/[address] Nice. The patient feels the drainage from the right 1st MTPJ ulcer has decreased since last week and he's scheduled to see Dr. Solitario tomorrow to review his foot deformity and recurrent callus formation at the site of the ulcer. 01/30/[address] Nice. The patient returns to clinic and reports recurrence of the recently healed right 1st MTPJ diabetic foot ulcer with new moderate drainage and significant callus formation. He's not yet re-established with Dr. Solitario, podiatry, due to insurance issues and is awaiting approval for an adjustment for his AFO. His blood sugars remain controlled below 150 mostly and he does not report pain in the foot or fevers. 01/12/[address] Nice. The patient does not report drainage from the right 1st toe MTPJ ulcer and he's scheduled to have his new AFO fitted this week. 01/05/[address] Nice. The patient does not report drainage associated with the right 1st MTPJ diabetic foot ulcer however he states he has had some intermittent, very brief 'shooting' pain at the site of the ulcer the past few days. His blood sugars also remain between 120 and 150 mostly. 12/29/[address] Nice. The patient does not report drainage from the chronic right 1st MTPJ diabetic foot ulcer and he offloads using a walker and surgical shoe at all times except for when he wears a slipper around his small apartment. 12/22/[address] Nice. The patient does not report significant drainage from the right 1st MTPJ diabetic foot ulcer and he states his blood sugars are still in the 150 range with some over 180. 12/10/[address] Nice. The patient does not report significant drainage from the right 1st MTPJ diabetic foot ulcer. 12/04/[address] Nice. The patient does not report any drainage from the chronic right 1st MTPJ diabetic foot ulcer and he's still waiting for insurance approval for a custom, articulating AFO. His blood sugars also remain relatively well controlled below 150 consistently. He also continues to apply Kerasal to the associated callus daily. 11/20/[address] Nice. The patient's been feeling unwell the past week and feels he may have lost as much as 10 lbs due to poor oral intake. Otherwise he does not report any new problems regarding his right 1st MTPJ plantar diabetic ulcer. 11/07/[address] Nice. The patient reports only scant drainage from the right plantar diabetic foot ulcer. He's been offloading as recommending with a walker and is awaiting a approval for an articulating AFO. His blood sugars remain mostly well controlled below 150. 10/31/14 Seen by Jean-Pierre Pinto PA-C. The patient feels he has reached another plateau with regard to his wound healing. His right plantar diabetic ulcer continues to drain and has not improved recently. He is wearing his brace and reports compliance with offloading. 10/21/[address] Nice. The patient reports only scant drainage from his right 1st plantar surface MTPJ diabetic foot ulcer. He continues to offload with a frame walker and his blood sugars are moderately well controlled with most below 150. 10/14/[address] Nice. The patient does not report significant drainage from the right 1st plantar MTPJ ulcer. Of note, when discussing his blood sugars he mentions he's on both 70/30 insulin as well as Lantus and he frequently has blood sugars in the 150-200 range. 10/07/[address] Nice. The patient reports some modest drainage from the right 1st MTPJ plantar ulcer but no pain, erythema, or swelling. His blood sugars are mostly below 150 and he offloads with his AFO. 09/30/14 Seen by Jean-Pierre Pinto PA-C. The patient reports continued compliance with his AFO and he is trying to offload. He is scheduled now with PT for gait training and knee strengthening. He reports his knee is still sore at times and he feels unstable at times when using his offloading devices and AFO. 09/23/[address] Nice. The patient reports only minimal drainage from the right plantar 1st MTPJ ulcer. 09/16/14 Seen by Jean-Pierre Pinto PA-C. The patient continues to use his AFO, offloading shoe, knee scooter and frame walker to offload his wound. 09/09/14 Seen by Jean-Pierre Pinto PA-C. The patient has been wearing his AFO and offloading shoe together, with the added padding as designed by Sahra BOYD of [employer] [employer]. He reports that he feels unsteady and that his knee has felt strained and he discontinued using the brace as he is concerned that he has, or will, re-injure his right knee. He also is having difficulty using his knee scooter with the brace. One year ago , while attempting to offload his foot he did injure his knee and required physical therapy to recover. 08/19/14 Seen by Jean-Pierre Pinto PA-C. The patient's weight is down 10 lbs from his previous visit. His twice daily naproxen has been discontinued by his PCP in an effort to reduce his lower extremity edema. 08/15/14 Seen by Jean-Pierre Pinto PA-C. The patient continues to have weight fluctuations and large amounts of weight gain in short periods of time despite increased diuretic usage. 08/04/14 Seen by Jean-Pierre Pinto PA-C. The patient has been taking his Levaquin and again reports to the clinic with a low grade fever. He reports nearly daily application of Kerasal and his weight and edema have been stable on a higher dose of diuretics. Blood sugars remain stable on his current diabetic medications. 07/21/14 Seen by Jean-Pierre Pinto PA-C. The patient does not report fever, chills or URI symptoms. His wound drainage has been stable. 07/16/[address] Nice. The patient reports persistent but minimal drainage from the right foot plantar ulcer and continues to offload with a walker at all times. His blood sugar are mostly below 150 with a few around 170 the past few days. 07/01/14 The patient reports that he has gained 8lbs in 8 days. Denies SOB. Does not report fever or chills. 06/23/[address] Nice. The patient continues to offload with a knee scooter and walker at all times. He does not report significant drainage from the right plantar foot ulcer. 06/20/[address] Nice. The patient has been offloading his right foot ulcer with a walker and reports less drainage over the past 2 days. He's now off of antibiotics and his blood sugars remain well controlled below 150. 06/11/[address] Nice. The patient reports persistent drainage from the right foot plantar 1st MTPJ ulcer and he completed his course of doxycycline which was started for a MRSA positive culture from the ulcer site. His blood sugars have also been a bit elevated above 150 recently. He does not report fever or chills however. 06/04/14 The patient reports difficulty in offloading his wound due to inability to use crutches due to poor balance. He find the wheelchair difficult to use and his knee scooter is not rated for his weight. He denies fever, chills or URI symptoms. 05/28/14 The patient's been attempting to offload with a knee scooter but is concerned it may not be appropriate or stable based on his weight. He does not report increased drainage from he right plantar 1st MTPJ ulcer and his blood sugars remain well controlled below 120. 05/21/14 The patient reports only minimal sanguinous drainage from his right foot plantar ulcer and has been offloading it by minimizing his walking. He's also completed a course of doxycycline that was given for a coag negative staph wound culture from the ulcer. He states his blood sugars are consistently below 120 and does not report hypoglycemia. 05/13/14 The patient reports minimal drainage from his right foot plantar ulcer. His recent wound culture from the site returned coag negative Staph and Diptheroids. 05/02/14 The patient reports less drainage from the right plantar foot ulcer and continues to off loading by minimizing walking and wearing a post-op shoe. 04/29/14 The patient continues to wear his surgical boot with the cutout for his right foot plantar diabetic ulcer. He reports no increase in drainage. 04/25/14 The patient reports minimal bloody drainage on the right foot plantar ulcer dressing that was placed yesterday. He does not report any drainage from the previously healed lateral foot ulcer. His edema in the right leg persists despite wearing compression stockings daily and his blood sugars remain well controlled below 120 with his last A1c approx 2 months ago at 7.4. 04/22/14 The patient reports no increase in drainage from his wounds today. He has been faithfully wearing his orthopedic boot with the cut-out area around his 5th MT ulcer. 04/15/14 The patient reports no increase in drainage from his wounds today. He reminds me that a TCC was the cause of his 5th MT ulcer and he is not excited about trying a TCC again. He is interested in HBOT if it will be beneficial to his wounds. 04/09/14 The patient reports increased drainage from his right 5th MT ulcer and feels his surgical boot he's been wearing for off loading may have caused pressure to the area. His blood sugars have improved and he also reports a 5 lb weight loss after doubling his dose of lasix over the past week. Of note, he did not liaise with his PCP prior to doing this. 04/04/14 The patient states that he was walking a bit more than usual yesterday but notes some sanguinous drainage on his plantar 1st MTPJ dressing for the past few days. He's also put on 7 lbs in the past week and feels his legs are more swollen than usual. He does not report chest pain, shortness of breath, or orthopnea. His blood sugars are also up a bit around 180. He's compliant with both his diabetes regimen and his diuretic therapy. 03/28/14 The patient reports no increased drainage or other complications from his right foot diabetic ulcers. 03/21/14 The patient reports minimal drainage from his right foot diabetic ulcers. He continues to minimally weight bear using a surgical boot and a walker. 03/14/14 The patient does not report increased drainage or other new issues regarding his right 5th MTPJ and right 1st MTPJ plantar ulcers. His blood sugars remain more elevated than usual with some between 150 and 180. 03/07/14 The patient reports no fever or increased right foot wound pain or drainage. 02/28/14 The patient reports that his blood sugar this morning is a bit elevated around 160 but has mostly been below 140 over the past few days. He's been off antibiotics for 3 days now and reports modest drainage from the right 5th MT ulcer while dressing changes are being done every two days. 02/24/14 The patient does not report any new issues regarding his right foot ulcers including increased drainage, fever, or chills. He completed his course of doxycycline yesterday. 02/17/14 The patient reports moderate yellow drainage from the right foot 5th MTPJ ulcer. He's completed a course of doxycycline and does not report fever or chills but states his blood sugars remain higher then normal in the 170's. His wound culture was positive for Enterobacter and his ESR was elevated at 41 and CRP at 2.7. 02/06/14 The patient does not report increased drainage from the right 5th MTPJ ulcer nor does he report fever or pain. He continues to off load with a walker and minimizing walking. He continues on doxycycline which was started empirically at his last visit and his culture has since grown Enterobacter which should be susceptible to doxy based on sensitivities. His xray of the foot was not concerning for osteomyelitis however his ESR and CRP are both moderately elevated. He also feels his legs are more swollen than usual and he continues to take his lasix as scheduled. 02/03/14 The patient does not report fever, chills, or pain in the right foot however when the TCC was removed today he's noted to have a sizable increase in the diameter and depth of what was a small 5th MTPJ ulcer. 01/14/14 The patient reports no new problems regarding is right diabetic foot ulcer. 12/31/13 The patient reports minimal serous drainage from his right 5th MTPJ ulcer and states he continues to off load his foot as much as possible. He does not report pain or drainage from the site of his right 1st MTPJ ulcer. 12/19/13 The patient tolerated with TCC without any complaints but there appears to be a small area of erythema over the right 5th MTPJ. He notes his blood sugars are typically below 120 and his A1c last week was 7.4. 12/13/13 The patient has no complaints regarding his TCC nor his plantar ulcer. 12/11/13 The patient returns for placement of a TCC today. He does not report any new problems regarding is plantar ulcer. 12/03/13 The patient states his plantar ulcer drainage is stable and he's continued to not use a cut-out foam doughnut over the ulcer. 11/26/13 The patient has kept the foam dressing in place from the last visit and has not used a cut-out foam dressing which we felt caused some deterioration of the foot ulcer. He has some mild drainage but no pain. 11/22/13 The patient returns for review of his plantar ulcer and callus that seems to be deteriorating despite an adjustment to his boot and off loading measures. The patient reports his callus accumulation is in spite of daily kerasal applications. Patient reports a new small wound on the left second toe. Josue states that it might be related to the brace. Patient had brace modified to help off load. 11/06/13 Josue states he was able to schedule with the prosthetic doctor tomorrow at noon. He reports no new problems or concerns. He also says that he is done with physical therapy since yesterday as insurance will not cover it any longer. 10/31/13 The patient reports he received his dressing supplies. Dressings changes are going well and no new problems are reported. He saw his founder and chief technical officer, Dr. Solitario, on Monday for a check up and had and x-ray of the foot. 10/24/13 Josue reports he has been staying off of his feet as much as possible. He has been changing the dressing as ordered and states there has been just a small amount of drainage. He recently ran out of his dressings and will need more ordered or the balance sent home with him. 10/17/13 Patient states he has no new problems or concerns. He did have a small increase in drainage the other day but he had walked more than normal the day before. 10/09/13 Josue states he has no new issues. Dressing changes are going well. 10/02/13 Josue states there have been no new issues with dressing changes. They have been changed once since his last visit. No complaints of pain with the wound. 09/20/13 Josue was discharged from wound care September 05. States that he has been using pumice stone on callus area where had previous wound and may have been too aggressive. Also has been on feet more and having increase in lower extremity edema. Continues to wear the tetragrip F he had received in the clinic 6 hours per day but has not ordered any yet. 09/27/13 Patient states that there have been no issues with using the [facility] sales. Asking about getting compression stockings from drug store for continued use. 09/05/13 Patient states he has set up physical therapy for the problems with his knee. He starts these treatments on 09/11. There has been no new issues with his wound and he changes the dressings about every two days. He reports little to no drainage. 08/06/13 States no new problems with wound area. Been using kerosol daily. 08/19/13 Patient states he twisted his knee a week ago, and it is effecting his walk slightly. He also complains of more edema in his legs, and has an appointment with his PCP tomorrow regarding the issue. No new problems or concerns with his wound. No new problems or concerns. Patient states he changed the dressing a few times this last week. Saw Dr. Solitario this past week for check up with no change o his management. 07/26/13 The patient has had new brace for one week and so far it is working out well. No other complaints at this time. 07/18/13 Patient got brace for foot and leg yesterday. No problems or concerns. 07/11/13 No problems or concerns. Changed dressing twice since last visit 07/04/13- Pt went to his PCP and his lasix were increased from 20mg to 40mg. He states his edema has decreased since then. Pt's diabetic foot brace (decreases lateral movement to reduce pressure on the sides of his feet) will arrive in about another week. 06/20/13- Pt reports increased edema in his feet for the last week, he has been walking more, but also sitting with his feet down more. With the increase in exercise he states his back has been hurting. On Sunday 06/18 pt went to [facility],and had his ankle brace fitting. 05/31/[address] Green this am. Changed dressing twice this week. 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 Considering ankle brace 05/24/13 states started walking program at 5 minutes at a time and taking the bus to clinic apt. 11/08/12 Pt is changing dressing every two days. Is concerned about the edema to the left leg that had the cellulitis. States it is warm. 11/15/12 patient has been having more nerve pain. He has been changing his dressing either every day or every other day. 11/22/12- Patient continues to change dressing about every day. No problems noted. Patient changing dressing about q o day. Thinks wound is less deep. 12/07/12 Pt only changed dressing twice since last visit. No concerns or problems. 12/18/12 When cleaning wound was able to aspirate large purlent sero-sang fluid from site. Pt states he feels it was doing better. 12/24/12 Decreased drainage and pt states he feels the wound is doing well. 12/31 Pt states he has had decreased draiange from wound. Pt denies pain. 01/07/13Pt states the kerasol didn't really do much, but admits he was only applying it every other day and is not sure what his expectations should be. He believes he may have bumped a toe on the left foot and has been concerned about some bruising there but admits it is getting better. Still does not have his new shoes and says he is exploring other options like disability. 01/21/13 feeling well since last visit. feels he may have bumped third toe so wants it to be seen. Level 2- 3 neuropathic pain in right foot 02/27/12 Patient changing bandaid on foot and applying kerasol every three days. Patient got new PCP and saw him yesterday. Patient states things are going well with the wound. 03/12/[address] Green for edema and will see him tomorrow for follow up.03/25/13 states has drainage from bottom of foot. concerned about new wounds Sates he changes dressing every 2 days. Changed this AM as it came off. Using Ca alginate and foam. States no drainage last night 04/19/13 changes dressing every 2-3 days. no problem. Has appt with Dr. Solitario 04/30/13 and new shoes have arrived. To be fitted next week 04/26/13 Is wearing new shoes and states they are working well.Changed dressing twice this week 05.03.[address] Solitario last week. will see again in [address] Green started antibiotic for sinus infection States sinuses not a lot better. Has started Lakshmi D, helping some. States wound about same. Changing dressing 2 x this week as dressing came off. States added collagen one time. Past Medical History This information was obtained from the patient Patient has a medical history of: Left lower extremity cellulitis - 10/15/2012 Diabetic foot ulcer - 09/27/2013 (Hernandez grade 2; right plantar surface; Hernandez grade III (Enterobacter positive wound culture 02/03/14), lateral right 5th MTPJ originally dx 12/24/13; MRSA positive culture 06/04/14 ) Chronic venous hypertension Type II Diabetes Hypertension Morbid Obesity Kidney Stones Hx MRSA Diabetic neuropathy Hallux valgus (right 1st toe) UTI (hospital admit) Cellulitis of legs (June and September 2012- hospital admit) Cataract surgery (10/13/15) Diabetic Neuropathy Complaints and Symptoms This information was obtained from the patient Patient complains of: General Notes: I have reviewed and concur with the Review of Systems and Past Family Social History documents completed by the clinician, I have reviewed and concur with the Wound Assessment document completed by the clinician Cardiovascular (Central/Peripheral): Lower extremity (leg) swelling Integumentary (Hair/Skin/Nails): Open Sore Musculoskeletal: Deformities, Muscle Weakness Neurological: Abnormal Gait, Loss of Protective Sensation, Tremors Prior Wound History: Bleeding, Drainage Patient denies complaints or symptoms related to: Cardiovascular (Central): Irregular heart beat Cardiovascular (Central/Peripheral): Lower extremity (leg) resting pain Constitutional Symptoms (General Health): Chills, Fever, Marked Weight Change Ear/Nose/Mouth/Throat: Hearing Loss / Aid Gastrointestinal (GI): Nausea / Vomiting Hematologic/Lymphatic: Bleeding / Clotting Disorders, Bleeding Tendency Musculoskeletal: Assistive Devices Prior Wound History: Erythema, Malodor, Pain Psychiatric: Memory Loss Respiratory: Oxygen Use, Shortness of Breath OBJECTIVE Constitutional BP elevated; Afebrile; Alert and in no distress. Well developed. Alert. Clean appearing.. Height/Length: 71 in (180.34 cm), Weight: 356.3 lbs (161.95 kgs), BMI: 49.7, Temperature: 98.3 ?F (36.83 ?C), Pulse: 63 bpm, Respiratory Rate: 18 breaths/min, Blood Pressure: 145/83 mmHg, Capillary Blood Glucose: 183 mg/dl, Pulse Oximetry: 96 %. Vital Signs Notes: Glucose per patient. Ears, Nose, Mouth, and Throat: No clinically significant hearing loss on informal examination. Respiratory: No respiratory distress. Even respirations and without use of accessory muscles.. Cardiovascular: 1+ right lower extremity edema. Gastrointestinal (GI): Obese. Nondistended.. 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 Integumentary (Hair, Skin) Refer to appropriate clinician wound documentation for this visit; right foot ulcer extends to subcut with base partially covered with pink granulation, remainder fibrin and slough. Moderate amount of callus in the periulcer area with significant capillary hemorrhage along medial border of ulcer. Wound #6 Right, Plantar Foot is a chronic Hernandez Grade 2 Diabetic Ulcer and has received a status of Not Healed. Subsequent wound encounter measurements are 0.8cm length x 0.3cm width x 0.2cm depth, with an area of 0.24 sq cm and a volume of 0.048 cubic cm. No tunneling has been noted. No sinus tract has been noted. No undermining has been noted. There is a moderate amount of sanguineous drainage noted which has no odor. The patient reports a wound pain of level 0/10. The wound margin is callus. Wound bed has No epithelialization, No eschar, No slough, Yes bright red, firm granulation. The periwound skin color is normal. The periwound skin exhibited: Callus. The periwound skin did not exhibit: Brawny Induration, Edema, Excoriation, Induration, Crepitus, Fluctuance, Friable, Rash, Dry/Scaly, Moist, Maceration. The temperature of the periwound skin is WNL. Periwound skin does not exhibit signs or symptoms of infection. Local Pulse is Palpable. Neurological: Cranial nerves grossly intact with symmetric function normal by informal observation.. ASSESSMENT Active Problems ICD-10 (Encounter Diagnosis) E11.621 - Type 2 diabetes mellitus with foot ulcer (Encounter Diagnosis) L97.512 - Non-pressure chronic ulcer of other part of right foot with fat layer exposed (Encounter Diagnosis) L84 - Corns and callosities PROCEDURES Wound #6 Wound #6 (Diabetic Ulcer) is located on the right, plantar foot. A skin/ subcutaneous tissue level surgical debridement with a total area debrided of 0.27 sq cm was performed by Stephen Nice MD. Subcutaneous was removed along with devitalized tissue: callus, exudate, and slough. The following instrument(s) were used: curette. Pain control was achieved using 4% Lido. A time out was conducted prior to the start of the procedure. A moderate amount of bleeding was controlled with silver nitrate. The procedure was tolerated well with a pain level of 0 throughout and a pain level of 0 following the procedure. Post Debridement Measurements: 0.9cm length x 0.3cm width x 0.2cm depth; with an area of 0.27 sq cm and a volume of 0.054 cubic cm; Additional Information Muscle fascia or bone removed and sent to pathology?: No PLAN Wound Orders: Wound #6 Right, Plantar Foot Anesthetic Topical Xylocaine to wound bed. - In clinic only. Cleanser Cleanse Wound: - Normal saline and gauze. May Shower. - Do not get wound wet with tap water. Use cast protector when showering. Topical Treatments Antibiotic/Antimicrobial Ointment/Cream. - Iodosorb to wound base. Dressings Cover and secure with: - Foam and hypafix tape. Change Dressing: - Every other day. Additional Orders: Off-Loading Keep weight off: - Right foot as much as possible. Use Knee scooter when able. Use/Wear when Walking: - Offloading shoe. Compression/Edema Control Elevation of leg(s) above the level of the heart when sitting. Avoid prolonged standing in one place. - Please avoid standing or walking for long periods of time. Knee-high gradient compression stockings. - Tetragrip F stockings to both legs. On in the morning and off at night. Follow-Up Appointments Return Appointment: - - Tuesdays and Fridays for callus removal per Dr. Nice. Other information: If you develop fever, chills, increased pain, drainage, redness or swelling please call our office. If after hours, respond to the ER. Should you experience any significant changes in your wound(s) or have any questions regarding your home care instructions please contact the wound center @ [phone]. If after hours, contact your primary care physician or go to the hospital emergency room. Scribing Attestation I attest, as the nurse, that I scribed these orders for the physician. General Notes: We will call Sahra at [facility] regarding your offloading insert. I've reviewed the clinician's documentation and agree with the evaluation and plan as written. In addition, the patient's ulcer demonstrates evidence of non-viable devitalized tissue which will continue to benefit from sharp debridement to help promote granulation and expedite healing. Also, the patient will liaise with [facility] regarding possible adjustment of the offloading shoe foam insert cutout which may be contributing to the localized callus capillary hemorrhage noted on exam. My thought is enlarging the cutout and filling the recess with a gel pad may help prevent localized pressure in the periulcer area. Electronic Signature(s) Signed By: Date: Stephen Nice MD 10/18/2017 07:48:36 Entered By: Stephen Nice on 10/18/2017 07:45:49
== END ==
PROVIDERS: PCP Family Medicine; Visit Provider Internal Medicine
DX: E11.621 Type 2 diabetes mellitus with foot ulcer (principal); L97.512 Non-pressure chronic ulcer of other part of right foot with fat layer exposed; L84 Corns and callosities
CPT/HCPCS: 11042

== ENCOUNTER → 2017-10-20 09:25 | Outpatient (CLI) | payer MEDICARE, OTHER, SELFPAY | PROVIDERS: PCP Family Medicine; Visit Provider Internal Medicine | DX: E11.621 Type 2 diabetes mellitus with foot ulcer (principal); L97.512 Non-pressure chronic ulcer of other part of right foot with fat layer exposed | CPT/HCPCS: 11042 ==

== ENCOUNTER → 2017-10-24 09:22 | Outpatient (CLI) | payer MEDICARE, OTHER, SELFPAY ==
--- NOTE | 2017-10-24 | OV.WND_ITS ---
Progress Note Details Patient Name: Josue Mesa Patient Number: [id number] PatientPatientDate: 10/24/2017 Clinician: Digna Diallo Clinician Cosigner: Estephanie Grant Physician / Footwear Sales Associate: Stephen Nice SUBJECTIVE Chief Complaint This information was obtained from the patient Diabetic ulcer to right plantar foot. Allergies Augmentin (Severity: Mild, Reaction: nausea) HPI This information was obtained from the patient 10/24/17. Seen by Dr. Nice. The patient does not report increased drainage associated with the chronic right 1st MTPJ diabetic ulcer since his last visit. 10/20/17. Seen by Dr. Nice. The patient does not report increased drainage associated with the chronic right 1st MTPJ diabetic ulcer since his last visit. 10/17/17. Seen by Dr. Nice. The patient does not report increased drainage associated with the chronic right 1st MTPJ diabetic ulcer since his last visit. He continues to wear his offloading shoe as recommended which has been modified to add a layer of foam that's had a recess cut out at the site of the ulcer. 10/13/17. Seen by Dr. Nice. The patient does not report increased drainage associated with the chronic right 1st MTPJ diabetic ulcer since his last visit. 10/10/17. Seen by Dr. Nice. The patient does not report increased drainage associated with the chronic right 1st MTPJ diabetic ulcer since his last visit. 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 10/03/17. Seen by Dr. Nice. The patient does not report increased drainage associated with the chronic right 1st MTPJ diabetic ulcer since his last visit which was 10 days ago. 09/22/17. Seen by Dr. Nice. The patient's xray of his right foot showed a 1st MTPJ intra- articular fracture and he was seen by Dr. Solitario who recommended continued offloading with the forefoot surgical offloading shoe but no further intervention at this time. He does not report pain in the foot nor significant drainage associated with the plantar 1st MTPJ diabetic foot ulcer since his last visit. 09/19/17. Seen by Dr. Nice. The patient reportedly fell on Monday injuring his right foot. He was seen by his PCP yesterday who felt it may have been infected and he was started on Keflex. He does not report pain in the foot and is able to bear weight as usual. He also does not report increased drainage associated with the chronic right 1st MTPJ diabetic ulcer since his last visit. 09/15/17. Seen by Dr. Nice. The patient arrived today feeling quite week and shaky and states he was seen in the ER earlier this morning for similar complaints and subsequently discharged to his [facility]. His CT scan and labs were unremarkable however he was unable to leave a urine sample for analysis at that time. His symptoms persist during our visit however there's no confusion or other acute complaints. He's also finished his course of Bactrim that was treating the recent right diabetic foot ulcer infection and he does not report increased drainage for pain at the ulcer site. 09/12/17. Seen by Dr. Nice. The patient does not report increased drainage associated with the chronic right 1st MTPJ diabetic ulcer since his last visit. He also continues on doxycycline for the recent Staph cultured from the ulcer and he does not report adverse side effects. 09/08/17. Seen by Dr. Nice. The patient's now on doxycycline for the recent coag negative Staph culture taken from the chronic right 1st MTPJ diabetic ulcer. He does not report adverse side effects nor increased drainage or pain associated with the ulcer. 09/05/17. Seen by Dr. Nice. The patient does not report increased drainage associated with the chronic right 1st MTPJ nor right 1st toe dorsal diabetic ulcers since his last visit however the nurse reports increased bloody drainage on the dressing and increased maceration and callus along the distal margin of the ulcer. His recent wound culture grew coag negative Staph and he's not currently on antibiotics. 09/01/17. Seen by Dr. Nice. The patient does not report increased drainage associated with the chronic right 1st MTPJ nor right 1st toe dorsal diabetic ulcers since his last visit. 08/29/17. Seen by Dr. Nice. The patient does not report increased drainage associated with the chronic right 1st MTPJ diabetic ulcer since his last visit. He does complain of progressive upper extremity tremors that are most noticeable in the morning and evening and may occur after he takes his metformin. He does not report low blood sugars and he'll bee seeing his PCP today to discuss this. 08/25/17. Seen by Dr. Nice. The patient reports being more active and on a boat over the holiday which was no conducive to using his knee scooter. He feels the right 1st MTPJ ulcer has deteriorated and he has a new ulcer over the dorsum of the right 1st toe now. 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 08/22/17. Seen by Dr. Nice. The patient was seen at [facility] and they provided a new orthotic insert to help better offload the chronic right 1st MTPJ diabetic ulcer while he's wearing his surgical, forefoot offloading show. He does not report increased drainage or pain associated with the ulcer and is using a knee scooter also to help offload. He has a severe valgus deformity which results in heavy callus formation and has required twice weekly debridements which has been effective in gradually promoting the ulcer to heal. He's also been applying topical gentamicin to the ulcer base to treat the recent coag negative Staph culture that was taken due to increased drainage. 08/18/17. Seen by Dr. Nice. The patient's wound culture taken from the chronic right foot diabetic ulcer at his last visit grew an intermediately resistant coag negative Staph and his dressing change and application of gentamicin is taking place only every 2-3 days. He does not report pain in the foot but staff report his dressing as being 'bloody' today. 08/15/17. Seen by Dr. Nice. The patient reports what may be increased drainage on his right foot diabetic ulcer dressings as mentioned by his cna caregiver in assisted living. He's using a knee scooter as recommended and does not report pain in the foot. He's also asking when it will be appropriate to have his right foot orthotic adjusted in his diabetic shoe although he's currently wearing a forefoot offloading shoe at all times. 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 08/11/17. Seen by Jean-Pierre Pinto PA-C. The patient reports stable drainage from his right foot diabetic ulcer. Again his blood sugars have been above 150 since his last visit. 08/08/17. Seen by Jean-Pierre Pinto PA-C. The patient reports no increase in drainage from his right foot diabetic ulcer. His blood sugars this week have reportedly been mostly above 150. 08/04/17. Seen by Dr. Nice. The patient does not report increased drainage associated with the chronic right plantar foot diabetic ulcer since his last visit and he's offloading appropriately as recommended. He also was seen by Dr. Solitario, podiatry, who discussed possible surgical options to address the severe right 1st toe valgus deformity that's complicating the ulcer and contributing to heavy periculcer callus formation however there's no plan of intervention at this time. 08/01/17. Seen by Dr. Nice. The patient does not report increased drainage associated with the chronic right plantar foot diabetic ulcer since his last visit and he's offloading appropriately as recommended. 07/28/17. Seen by Dr. Nice. The patient does not report increased drainage associated with the chronic right plantar foot diabetic ulcer since his last visit and he's offloading appropriately as recommended. We've increased his visits to twice weekly due to the very heavy callus formation that's contributing to the refractory nature of the ulcer. 07/25/17. Seen by Dr. Nice. The patient does not report increased drainage associated with the chronic right plantar foot diabetic ulcer since his last visit and he's offloading appropriately as recommended. Kerasal is not being applied to the periulcer callus and his visits have been decreased to once weekly over the past few weeks while the ulcer has been improving. 07/18/17. Seen by Dr. Nice. The patient does not report increased drainage associated with the chronic right plantar foot diabetic ulcer since his last visit and he's offloading appropriately as recommended. 07/11/17.Seen by Dr. Nice. The patient has been wearing his offloading shoe and using a knee scooter as recommended and does not report significant drainage associated with the chronic right plantar foot diabetic ulcer since his last visit. 07/04/17. Seen by Dr. Nice. The patient has been wearing his offloading shoe as recommended and does not report significant drainage associated with the chronic right plantar foot diabetic ulcer since his last visit. 06/30/17. Seen by Dr. Nice. The patient has been wearing his offloading shoe as recommended and does not report significant drainage associated with the chronic right plantar foot diabetic ulcer since his last visit. 06/27/2017. Seen by Dr. Nice. The patient has been wearing his offloading shoe as recommended and does not report significant drainage associated with the chronic right plantar foot diabetic ulcer since his last visit. His blood sugars are also mostly below 100 now and he's using his knee scooter as well to further optimize offloading. 06/23/2017. Seen by Dr. Nice. The patient does not report pain nor increased drainage associated with the chronic right plantar foot diabetic ulcer since his last visit. He is wearing his offloading shoe as recommended now and his blood sugar control has improved with some below 200. 06/20/2017. Some by Dr. Nice. The patient is not report increased drainage position with chronic right plantar foot diabetic ulcer since last visit. He is now clindamycin for the resistant Staphylococcus haemolyticus positive culture that was taken to the last visit. His blood sugars continued to be elevated and or over 300 earlier this morning despite having his Lantus dose increased recently. He is also wearing his diabetic shoes but not an offloading surgical shoe as I have been recommending. 06/16/17. Seen by Dr. Nice. The patient does not report increased drainage associated with chronic right plantar foot diabetic ulcers since his last visit. His recent wound culture grew a resistant coag negative staph organism. He also met with his primary care provider, Dr. Green, to increase his dosing of Lantus and plans to work with him on dietary measures to help gain better control of his elevated blood sugars. 06/13/17. Seen by Dr. Nice. The patient's blood sugars again are over 300 today and his appointment with his primary care provider to address this. He does not report any acute changes regarding the chronic right plantar foot diabetic ulcer and is using his knee scooter to help facilitate offloading as much as possible. 06/09/17. Seen by Dr. Nice. The patient does not report significant drainage associated with the chronic right plantar foot diabetic ulcer since his last visit. 06/06/17. Seen by Dr. Nice. The patient does not report significant drainage associated with the chronic right plantar foot diabetic ulcer since his last visit and he's lost another 7 lbs since increasing his dose of Lasix due to abnormal weight gain and significant bilateral lower extremity edema. 06/02/17. Seen by Dr. Nice. The patient does not report significant drainage associated with the chronic right plantar foot diabetic ulcer since his last visit. His increase his dose of Lasix and has lost 7 pounds over the past 3 days. This is been done due to the significant increase in leg swelling over the past 2 weeks. 05/30/17. Seen by Dr. Nice. The patient does not report increased drainage associated with chronic right plantar foot diabetic ulcer since his last visit however he does feel that the right foot and leg are swelling considerably over the past few days. We note a 4 pound weight gain since his last visit on Monday and he states is taking his diuretic as prescribed. 05/26/17. Seen by Dr. Nice. The patient does not report increased drainage associated with chronic right plantar foot diabetic ulcers since his last visit. His culture grew a somewhat resistant coag negative staph and he is not currently on antibiotics. 05/23/17. Seen by Dr. Nice. Staff reports some increased drainage on his dressings covering the chronic right plantar foot diabetic ulcer today. His blood sugar is again over 300 and he states he is eating rice and potatoes trying to cut back. He continues offload with his knee scooter as recommended and does not report pain or any other acute ulcer related issues today. 05/19/17. Seen by Dr. Nice. The patient does not report increased pain or drainage associated with chronic right plantar foot diabetic ulcer since his last visit. He is using his knee scooter as recommended and has had significant problems with heavy callus at the site due to a severe right first toe valgus deformity. He is now attending clinic twice weekly for debridement of the ulcer and complicating callous. 05/16/17. Seen by Dr. Nice. The patient does not report increased drainage or pain associated with chronic right plantar foot diabetic ulcer since his last visit. Of note, the patient's blood sugar as 271 today and his A1c was 9.8 in March. 05/12/17. Seen by Dr. Nice. The patient does not report increased pain or drainage associated with chronic right plantar foot diabetic ulcer since his last visit. He is using his knee scooter to help offload the site which is particularly important based on patient's morbid obesity coupled with his severe first MTPJ valgus deformity. 05/09/17. Seen by Dr. Nice. The patient does not report increased drainage or pain associated with the chronic right plantar foot diabetic ulcer since his last visit. He states his blood sugars continue to be above 200 consistently although are improving with compliance to a lower carbohydrate type diet. He was started on metformin about a month ago he complains of some intermittent upper extremity weakness since then and will be discussing this with his primary care provider. He is also awaiting his new diabetic shoes that are being adjusted to help accommodate for his severe right first toe valgus deformity. 05/02/17. Seen by Jean-Pierre Pinto PA-C. The patient reports stable drainage from his right 1st toe ulcer and blood sugars continue to be above goal. 04/25/17. Seen by Jean-Pierre Pinto PA-C. The patient reports his blood sugars have been above 150 this week. He does not report increased drainage from his right 1st toe diabetic ulcer. 04/18/17. Seen by Dr. Nice. The patient does not report increased drainage associated the chronic right first toe diabetic ulcers since his last visit. 04/11/17. Seen by Jean-Pierre Pinto PA-C. The patient reports he is developing more calloused areas on his feet and is concerned about new ulcers occurring. His chronic 1st toe diabetic ulcer has been stable. 04/04/17. Seen by Jean-Pierre Pinto PA-C. The patient reports he has not been able to get his blood sugars below 150. Drainage is reportedly decreased from his diabetic foot ulcer. 03/30/17. Seen by Jean-Pierre Pinto PA-C. The patient reports continued high blood sugars, all above 150. Drainage from his ulcer is not increased. 03/23/17. s Seen by Jean-Pierre Pinto PA-C. The patient reports blood sugars above 150 again this week. He is concerned that something must be going on with an infection as he believes his diet has not changed and thus his sugars should be lower. His wound has had stable drainage. 03/15/17. Seen by Jean-Pierre Pinto PA-C. The patient reports he has had some blood sugars above 150 this week. He reports no increase in drainage from his right 1st toe diabetic ulcer. 03/08/17. Seen by Dr. Nice. The patient was discharged from the hospital recently following treatment for cellulitis associated with the chronic right first toe diabetic ulcer. He grew MRSA from the wound culture and was treated with IV vancomycin and is now on Bactrim. He does not report pain nor significant drainage associated with the ulcer nor side effects from antibiotics. 02/23/17. Seen by Dr. Nice. The patient does not report increased drainage associated the chronic right first toe diabetic ulcers since his last visit. The patient also states that he is more active over the holidays and was unable to use his knee scooter at times while walking outside due to safety concerns. 02/08/17. Seen by Dr. Nice. The patient does not report increased drainage associated the chronic right first toe diabetic ulcers since his last visit. He states he is using his offloading shoe when at home and a knee scooter went out. 02/01/17. Seen by Dr. Nice. The patient does not report increasing pain or drainage associated with chronic right first toe diabetic ulcer since his last visit. 01/25/17. Seen by Dr. Nice. The patient does not report increasing pain or drainage associated with chronic right first toe diabetic ulcer since his last visit. 01/18/17. Seen by Dr. Nice. The patient does not report increasing pain or drainage associated with chronic right first toe diabetic ulcer since his last visit. Of note, the patient's blood sugar is over 260 again today and he admits that it's been significantly elevated for a number of weeks. He has an appointment with his primary care provider to discuss this next week. 01/11/17. Seen by Dr. Nice. The patient does not report increasing pain or drainage associated with chronic right first toe diabetic ulcer since his last visit. He states his blood sugars have been running high recently and he is going to follow-up with his primary care provider in the near future to address this. 01/04/17. Seen by Dr. Nice. The patient does not report increased drainage associated with chronic right first foot diabetic ulcers since his last visit. He's also been applying Kersal to the periulcer as recommended. 12/28/16. Seen by Dr. Nice. The patient does not report increased drainage associated with chronic right first foot diabetic ulcers since his last visit. 12/22/16. Seen by Dr. Nice. The patient does not report increased drainage associated with chronic right first foot diabetic ulcers since his last visit. He's not been applying Kersal to the periulcer callus and does not appear to be using his knee scooter at all times to offload the ulcer. 12/15/16. Seen by Jean-Pierre Pinto PA-C. The patient reports he continues to have blood sugars above 150 this week. He recently saw his PCP, they did not alter his diabetic care plan. His visit was a follow up for an ER visit for chest pain which was negative for AL and was thought to be epigastric in origin. His diabetic ulcer of the right foot has not had increased drainage. 12/06/16. Seen by Jean-Pierre Pinto PA-C. The patient reports that he has found his knee scooter and plans to start using it today. He also reports most of his blood sugars have been above 150. Drainage from his ulcer has been stable. 11/25/16. Seen by Dr. Nice. The patient does not report increased drainage associated with chronic right first foot diabetic ulcers since his last visit. He is now on antibiotics for wound infection and does not report adverse side effects. Of note, he is not yet using a knee scooter nor offloading shoe as we recommended last week. 11/18/16. Seen by Dr. Nice. The patient returns to our clinic and presents with recurrence of a right first MTPJ plantar diabetic ulcer. He states it started a couple weeks ago when he was attempting to remove overlying callus at home. He does not report significant drainage or pain associated with the ulcer and is not currently on antibiotics. He also states his recent A1c was 7.8. His blood sugar in clinic today is 250. 01/11/16 Seen by Jean-Pierre Pinto PA-C. The patient reports no drainage from his chronic right 1st MTPJ joint since his last dressing change. 01/04/16 Seen by Jean-Pierre Pinto PA-C. The patient reports minimal drainage from his chronic right 1st MTPJ ulcer. He has recently seen his PCP and his A1c was 7.7. His lower extremity edema, abnormal weight gain and kidney failure are stable with his diuretics recently being adjusted. 12/28/15. Seen by Dr. Nice. The patient does not report significant drainage associated with the chronic right 1st MTPJ diabetic ulcer since his last visit however he does complain of increasing shortness of breath, fatigue, and an 18lb weight gain over the past week despite taking his diuretics as recommended. He does not report chest pain or cough and his blood sugars remain relatively well controlled with most below 150. 12/16/15. Seen by Dr. Nice. The patient does not report significant drainage associated with the chronic right 1st MTPJ diabetic ulcer since his last visit. He's applying kerasal to the surrounding callus as recommended and offloading nearly at all times using his knee scooter. 12/07/15 Seen by Jean-Pierre Pinto PA-C. The patient reports compliance with his new offloading brace and shoe and has seen minimal drainage from his diabetic foot ulcer since his last visit. 11/30/15. Seen by Dr. Nice. The patient does not report significant drainage associated with the chronic right 1st MTPJ diabetic ulcer since his last visit and he's wearing a combined AFO / diabetic shoe system that he feels may be better offloading the ulcer. 11/23/15 Seen by Jean-Pierre Pinto PA-C. The patient reports that he is wearing his new diabetic shoes and inserts. He is continuing physical therapy for gait training and reports continued difficulty with stairs and occasional bouts of dizziness. He reports stable drainage from his chronic right foot diabetic ulcer. 11/16/15 Seen by Jean-Pierre Pinto PA-C. The patient reports stable drainage from his right foot diabetic ulcer. He also reports that his diabetic shoes and inserts are quite old and worn out. He is ambulating with is 4 wheeled walker and is working with PT for gait training. 11/09/15 Seen by Jaen-Pierre Pinto PA-C. The patient reports that he is still using a 4 wheeled walker instead of a 4 footed walker. PT is working with him to improve his gait and balance. Drainage from his right foot ulcer has been stable. 11/02/15 Seen by Jean-Pierre Pinto PA-C. The patient reports no increase in drainage from his chronic diabetic foot ulcer. He has had multiple blood sugars above 150 this week. 10/29/15. Seen by Dr. Nice. The patient was recently discharged from [facility] following treatment of sepsis thought to possibly be related to his chronic right 1st MTPJ diabetic ulcer that grew Enterococcus just prior to his admission. He now feels generally weak , has lost 18 lbs following diuresis, and is residing at home where he's minimizing his weight bearing on the right foot. He does not report significant drainage from the ulcer nor pain and states his blood sugars remain mostly around 150. He also continues on levofloxacin and does not report adverse side effects. 10/14/15. Seen by Dr. Nice. The patient report persistent bloody drainage from the chronic right 1st MTPJ diabetic ulcer and he feels the callus has increased significantly since it was last debrided 2 week ago. He does not report fevers or feeling unwell and states his blood sugars are well controlled with most below 150. He's using his AFO when walking nearly at all times to facilitate offloading the significant right 1st MTPJ valgus deformity. 09/24/15 Seen by Jean-Pierre Pinto PA-C. The patient reports that he is no ran out of lasix due to a mix up at the pharmacy and unavailability of his strength/dose of tablets. He continues trying to offload his ulcer with his wheeled walker and notes stable ulcer drainage. 09/17/15. Seen by Dr. Nice. The patient continues to report some bloody drainage from the chronic right 1st MTPJ diabetic ulcer and he's started reducing his activity and continues to use his knee scooter at home to offload the foot. 09/10/15. Seen by Dr. Nice. The patient states he was more active over the past week and notices increased bloody drainage associated with chronic right first MTPJ diabetic foot ulcer. He continues to wear his AFO and states his blood sugars are mostly below 150. 09/03/15. Seen by Dr. Nice. The patient does not report significant drainage associated with the chronic right first MTPJ diabetic ulcer over the past week. He does feel that the callus smaller than on previous visits and is wearing his AFO at all times. Of note, he 's now in doxycycline to treat the recent coag negative Staph cultured from the ulcer at his last visit. 08/27/[address] Nice. The patient reports increase bloody drainage associated with the chronic right foot 1st MTPJ diabetic ulcer and he feels his activity has increased due to physical therapy and increased mobility over the past week. He does not report pain at the ulcer site, fevers, or feeling unwell in general. 08/20/[address] Nice. The patient does not report significant drainage associated with the chronic right foot 1st MTPJ diabetic ulcer over the past week and he's using a knee scooter as much as possible when mobilizing to offload the foot. His blood sugars also remain relatively well controlled with most below 150. 08/13/[address] Nice. The patient does not report significant drainage associated with the chronic right foot diabetic ulcer over the past week and he's offloading using a knee scooter as recommended. His blood sugars remain relatively well controlled with most below 150. 08/06/[address] Nice. The patient reports recurrence of some drainage from the chronic right foot diabetic ulcer over the past few days and states he's been more active with physical therapy. His blood sugars remain well controlled with most below 150 and he's wearing his AFO when away from the house and using a knee scooter most of the time while at home to facilitate offloading. He's also applying Kerasal to the callus in the periwound area as recommended. 07/23/[address] Nice. The patient does not report drainage from the chronic right 1st MTPJ diabetic ulcer over the past week and he's using his new AFO and knee scooter to offload the foot. 07/16/[address] Nice. The patient does not report pain or drainage from the chronic right 1st MTPJ diabetic ulcer and he's wearing his newer AFO while offloading with a knee scooter most of the time. 07/09/[address] Nice. The patient does not report drainage or pain associated with his chronic right foot 1st MTPJ diabetic ulcer and he's been offloading by using a knee scooter when mobilizing. His mirror department supervisor is present today as well to discuss possible adjustments to his AFO with the goal of reducing callus formation that's in part caused by his significant right 1st toe valgus deformity. He also states his blood sugars remain well controlled below 150 consistently. 07/03/[address] Nice. The patient does not report significant drainage from the chronic right foot diabetic ulcer and he's offloading by using his knee scooter. His blood sugars also remain relatively well controlled around 150 consistently. 06/26/[address] Nice. The patient report some continued bloody drainage from the chronic right 1st MTPJ diabetic ulcer however he does not report associated pain , fevers or feeling unwell. His blood sugars remain consistently below 150 and he's using his walker and knee scooter for offloading as recommended. He's also been actively working with his mirror department supervisor in hopes of better offloading the ulcer and address his significant callus formation and left 1st MTPJ valgus deformity. 06/19/[address] Nice. The patient does not report pain associated with his chronic right 1st MTPJ diabetic ulcer however he states some bloody drainage persists on the dressings. He does not report fevers or feeling unwell and states his blood sugars are well controlled below 150 consistently and he's using a knee scooter and walker to offload the ulcer when mobilizing. He also does not report pain or drainage associated with the left 2nd toe wound. 06/11/[address] Nice. The patient was recently discharged from [facility] following a fall at home that resulted in a broken rib. Regarding his chronic right 1st MTPJ diabetic ulcer he does not report significant drainage and has been offloading through bed rest and using a knee scooter while at home. His blood sugars also remain well controlled with most below 150. He also reports a new wound on the dorsum of the left 2nd toe that he believes occurred during his fall. He does not report associated pain or significant drainage. 05/28/[address] Nice. The patient reports some increased bloody drainage from the chronic right 1st MTPJ diabetic foot ulcer over the weekend associated with a new 'soft' area along the distal margin. He's been more active the past the past few days but states he's using his knee scooter to offload at all times. His blood sugars also remain well controlled with most around 120 and he's no longer on antibiotics. He also continues to wear his old AFO but states there was a recent adjustment of a cut out lined with 'soft' plastic in the area of the ulcer. 05/21/[address] Nice. The patient report less drainage from the chronic right foot 1st MTPJ diabetic ulcer over the past week. He's completed his course of doxycycline and he continues on fluconazole for the recent Alma Delia positive wound culture. He's also reverted back to using his previous AFO while his newer one is adjusted to try to address the recent significant increase in callus formation that's occurred. His blood sugars also remain well controlled under 150 consistently and his recent episodes of hypoglycemia has resolved with an adjustment of his insulin regimen. 05/14/[address] Nice. The patient reports less drainage on the dressings covering the chronic right 1st MTPJ diabetic ulcer since starting doxycycline for a coag negative Staph wound culture along with fluconazole for the alma delia positive culture. His blood sugars remain well controlled below 120 and his insulin has been decreased due to the recent episodes of hypoglycemia. His diuretic has also been decreased as he's lost considerable water weight over the past month. 05/07/[address] Nice. The patient continues to report modest bloody drainage on the dressing covering the chronic right 1st MTPJ diabetic ulcer and he continues to limit his walking but has not been using a knee scooter or walker around the house to facilitate offloading. His blood sugars remain well controlled mostly below 150. 04/30/[address] Nice. The patient continues to report bloody drainage on his right foot diabetic ulcer dressing and he's feeling a bit unwell in general without reporting specific symptoms. He also continues to have intermittent low blood sugars in the 50-60' s and has not discussed this issue with his PCP recently. He's wearing his AFO daily but admits to having difficulty using his walker at all times due to limited space in his new apartment. 04/27/15 Seen by Jean-Pierre Pinto PA-C. The patient reports nonspecific malaise for the past few days. Last night, he reports feeling to tired, weak and shaky to watch TV and went to bed very early. His malaise has been increasing over the past 1-2 weeks and he has frequently been monitoring his blood sugar. His blood sugars are lower than normal lately but never below 100. He has been reducing his insulin dosing in the past 2 weeks to compensate for the lower numbers. He continues to loose weight while continuing to take Lasix and metolazone. 04/23/[address] Nice. The staff and patient continue to report at least moderate serosanquinous drainage from the chronic right 1st MTPJ diabetic ulcer. His blood sugars have been well controlled over the past week with most below 150. He does report being more active than usual while he's been moving to his new home and he also states he continues to loose weight following a recent increase in his diruetics. His wound culture from the last visit reported heavy Diptheroids and he's not currently on antibiotics. 04/20/15 Seen by Jean-Pierre Pinto PA-C. The patient reports that he has moved house and has been on his feet much more so as a consequence. He reports increased drainage from his right plantar foot diabetic ulcer. In addition he believes he struck it against a hard surface when moving. He has had no significant pain with weightbearing but is insensate in this area. 04/15/[address] Nice. The patient reports continued weight loss, and decreasing leg swelling, since starting metolazone totaling about 20 lbs. He also feels the chronic right 1st MTPJ diabetic ulcer has been draining increasing amounts of sanguinous fluid. His blood sugars remain well controlled with most below 120 and he does not report fever or feeling unwell. 03/25/[address] Nice. The patient states he walked a considerable amount yesterday and now reports some bleeding from the chronic right 1st MTPJ diabetic foot ulcer. He also continues to report increased weight gain and now some shortness of breath when walking short distances. He has a low grade fever today but does not report a cough or feeling unwell otherwise. 03/11/2015 Seen by Jean-Pierre Pinto PA-C. The patient's weight has increased 10 lbs in the past week. He reports increased shortness of breath with exertion. He denies chest pain, jaw, neck, shoulder pain or shortness of breath at rest. He has been compliant with his diuretics. His ulcer drainage has been stable. 03/04/2015 Seen by Jean-Pierre Pinto PA-C. The patient is wearing his newly adjusted AFO and reports an increase in walking since last visit. He was unaware that his temperature was elevated and reports no URI symptoms such as cough or sore throat. 02/24/2015 Seen by Jean-Pierre Pinto PA-C. The patient believes his ulcer has now been draining more despite trying to offload the ulcer. 02/11/[address] Nice. The patient reports less drainage from the chronic right 1st toe diabetic ulcer and he's still waiting for approval for his new AFO. 02/04/[address] Nice. The patient feels the drainage from the right 1st MTPJ ulcer has decreased since last week and he's scheduled to see Dr. Solitario tomorrow to review his foot deformity and recurrent callus formation at the site of the ulcer. 01/30/[address] Nice. The patient returns to clinic and reports recurrence of the recently healed right 1st MTPJ diabetic foot ulcer with new moderate drainage and significant callus formation. He's not yet re-established with Dr. Solitario, podiatry, due to insurance issues and is awaiting approval for an adjustment for his AFO. His blood sugars remain controlled below 150 mostly and he does not report pain in the foot or fevers. 01/12/[address] Nice. The patient does not report drainage from the right 1st toe MTPJ ulcer and he's scheduled to have his new AFO fitted this week. 01/05/[address] Ncie. The patient does not report drainage associated with the right 1st MTPJ diabetic foot ulcer however he states he has had some intermittent, very brief 'shooting' pain at the site of the ulcer the past few days. His blood sugars also remain between 120 and 150 mostly. 12/29/[address] Nice. The patient does not report drainage from the chronic right 1st MTPJ diabetic foot ulcer and he offloads using a walker and surgical shoe at all times except for when he wears a slipper around his small apartment. 12/22/[address] Nice. The patient does not report significant drainage from the right 1st MTPJ diabetic foot ulcer and he states his blood sugars are still in the 150 range with some over 180. 12/10/[address] Nice. The patient does not report significant drainage from the right 1st MTPJ diabetic foot ulcer. 12/04/[address] Nice. The patient does not report any drainage from the chronic right 1st MTPJ diabetic foot ulcer and he's still waiting for insurance approval for a custom, articulating AFO. His blood sugars also remain relatively well controlled below 150 consistently. He also continues to apply Kerasal to the associated callus daily. 11/20/[address] Nice. The patient's been feeling unwell the past week and feels he may have lost as much as 10 lbs due to poor oral intake. Otherwise he does not report any new problems regarding his right 1st MTPJ plantar diabetic ulcer. 11/07/[address] Nice. The patient reports only scant drainage from the right plantar diabetic foot ulcer. He's been offloading as recommending with a walker and is awaiting a approval for an articulating AFO. His blood sugars remain mostly well controlled below 150. 10/31/14 Seen by Jean-Pierre Pinto PA-C. The patient feels he has reached another plateau with regard to his wound healing. His right plantar diabetic ulcer continues to drain and has not improved recently. He is wearing his brace and reports compliance with offloading. 10/21/[address] Nice. The patient reports only scant drainage from his right 1st plantar surface MTPJ diabetic foot ulcer. He continues to offload with a frame walker and his blood sugars are moderately well controlled with most below 150. 10/14/[address] Nice. The patient does not report significant drainage from the right 1st plantar MTPJ ulcer. Of note, when discussing his blood sugars he mentions he's on both 70/30 insulin as well as Lantus and he frequently has blood sugars in the 150-200 range. 10/07/[address] Nice. The patient reports some modest drainage from the right 1st MTPJ plantar ulcer but no pain, erythema, or swelling. His blood sugars are mostly below 150 and he offloads with his AFO. 09/30/14 Seen by Jean-Pierre Pinto PA-C. The patient reports continued compliance with his AFO and he is trying to offload. He is scheduled now with PT for gait training and knee strengthening. He reports his knee is still sore at times and he feels unstable at times when using his offloading devices and AFO. 09/23/[address] Nice. The patient reports only minimal drainage from the right plantar 1st MTPJ ulcer. 09/16/14 Seen by Jean-Pierre Pinto PA-C. The patient continues to use his AFO, offloading shoe, knee scooter and frame walker to offload his wound. 09/09/14 Seen by Jean-Pierre Pinto PA-C. The patient has been wearing his AFO and offloading shoe together, with the added padding as designed by Sahra BOYD of [employer] [employer]. He reports that he feels unsteady and that his knee has felt strained and he discontinued using the brace as he is concerned that he has, or will, re-injure his right knee. He also is having difficulty using his knee scooter with the brace. One year ago , while attempting to offload his foot he did injure his knee and required physical therapy to recover. 08/19/14 Seen by Jean-Pierre Pinto PA-C. The patient's weight is down 10 lbs from his previous visit. His twice daily naproxen has been discontinued by his PCP in an effort to reduce his lower extremity edema. 08/15/14 Seen by Jean-Pierre Pinto PA-C. The patient continues to have weight fluctuations and large amounts of weight gain in short periods of time despite increased diuretic usage. 08/04/14 Seen by Jean-Pierre Pinto PA-C. The patient has been taking his Levaquin and again reports to the clinic with a low grade fever. He reports nearly daily application of Kerasal and his weight and edema have been stable on a higher dose of diuretics. Blood sugars remain stable on his current diabetic medications. 07/21/14 Seen by Jean-Pierre Pinto PA-C. The patient does not report fever, chills or URI symptoms. His wound drainage has been stable. 07/16/[address] Nice. The patient reports persistent but minimal drainage from the right foot plantar ulcer and continues to offload with a walker at all times. His blood sugar are mostly below 150 with a few around 170 the past few days. 07/01/14 The patient reports that he has gained 8lbs in 8 days. Denies SOB. Does not report fever or chills. 06/23/[address] Nice. The patient continues to offload with a knee scooter and walker at all times. He does not report significant drainage from the right plantar foot ulcer. 06/20/[address] Nice. The patient has been offloading his right foot ulcer with a walker and reports less drainage over the past 2 days. He's now off of antibiotics and his blood sugars remain well controlled below 150. 06/11/[address] Nice. The patient reports persistent drainage from the right foot plantar 1st MTPJ ulcer and he completed his course of doxycycline which was started for a MRSA positive culture from the ulcer site. His blood sugars have also been a bit elevated above 150 recently. He does not report fever or chills however. 06/04/14 The patient reports difficulty in offloading his wound due to inability to use crutches due to poor balance. He find the wheelchair difficult to use and his knee scooter is not rated for his weight. He denies fever, chills or URI symptoms. 05/28/14 The patient's been attempting to offload with a knee scooter but is concerned it may not be appropriate or stable based on his weight. He does not report increased drainage from he right plantar 1st MTPJ ulcer and his blood sugars remain well controlled below 120. 05/21/14 The patient reports only minimal sanguinous drainage from his right foot plantar ulcer and has been offloading it by minimizing his walking. He's also completed a course of doxycycline that was given for a coag negative staph wound culture from the ulcer. He states his blood sugars are consistently below 120 and does not report hypoglycemia. 05/13/14 The patient reports minimal drainage from his right foot plantar ulcer. His recent wound culture from the site returned coag negative Staph and Diptheroids. 05/02/14 The patient reports less drainage from the right plantar foot ulcer and continues to off loading by minimizing walking and wearing a post-op shoe. 04/29/14 The patient continues to wear his surgical boot with the cutout for his right foot plantar diabetic ulcer. He reports no increase in drainage. 04/25/14 The patient reports minimal bloody drainage on the right foot plantar ulcer dressing that was placed yesterday. He does not report any drainage from the previously healed lateral foot ulcer. His edema in the right leg persists despite wearing compression stockings daily and his blood sugars remain well controlled below 120 with his last A1c approx 2 months ago at 7.4. 04/22/14 The patient reports no increase in drainage from his wounds today. He has been faithfully wearing his orthopedic boot with the cut-out area around his 5th MT ulcer. 04/15/14 The patient reports no increase in drainage from his wounds today. He reminds me that a TCC was the cause of his 5th MT ulcer and he is not excited about trying a TCC again. He is interested in HBOT if it will be beneficial to his wounds. 04/09/14 The patient reports increased drainage from his right 5th MT ulcer and feels his surgical boot he's been wearing for off loading may have caused pressure to the area. His blood sugars have improved and he also reports a 5 lb weight loss after doubling his dose of lasix over the past week. Of note, he did not liaise with his PCP prior to doing this. 04/04/14 The patient states that he was walking a bit more than usual yesterday but notes some sanguinous drainage on his plantar 1st MTPJ dressing for the past few days. He's also put on 7 lbs in the past week and feels his legs are more swollen than usual. He does not report chest pain, shortness of breath, or orthopnea. His blood sugars are also up a bit around 180. He's compliant with both his diabetes regimen and his diuretic therapy. 03/28/14 The patient reports no increased drainage or other complications from his right foot diabetic ulcers. 03/21/14 The patient reports minimal drainage from his right foot diabetic ulcers. He continues to minimally weight bear using a surgical boot and a walker. 03/14/14 The patient does not report increased drainage or other new issues regarding his right 5th MTPJ and right 1st MTPJ plantar ulcers. His blood sugars remain more elevated than usual with some between 150 and 180. 03/07/14 The patient reports no fever or increased right foot wound pain or drainage. 02/28/14 The patient reports that his blood sugar this morning is a bit elevated around 160 but has mostly been below 140 over the past few days. He's been off antibiotics for 3 days now and reports modest drainage from the right 5th MT ulcer while dressing changes are being done every two days. 02/24/14 The patient does not report any new issues regarding his right foot ulcers including increased drainage, fever, or chills. He completed his course of doxycycline yesterday. 02/17/14 The patient reports moderate yellow drainage from the right foot 5th MTPJ ulcer. He's completed a course of doxycycline and does not report fever or chills but states his blood sugars remain higher then normal in the 170's. His wound culture was positive for Enterobacter and his ESR was elevated at 41 and CRP at 2.7. 02/06/14 The patient does not report increased drainage from the right 5th MTPJ ulcer nor does he report fever or pain. He continues to off load with a walker and minimizing walking. He continues on doxycycline which was started empirically at his last visit and his culture has since grown Enterobacter which should be susceptible to doxy based on sensitivities. His xray of the foot was not concerning for osteomyelitis however his ESR and CRP are both moderately elevated. He also feels his legs are more swollen than usual and he continues to take his lasix as scheduled. 02/03/14 The patient does not report fever, chills, or pain in the right foot however when the TCC was removed today he's noted to have a sizable increase in the diameter and depth of what was a small 5th MTPJ ulcer. 01/14/14 The patient reports no new problems regarding is right diabetic foot ulcer. 12/31/13 The patient reports minimal serous drainage from his right 5th MTPJ ulcer and states he continues to off load his foot as much as possible. He does not report pain or drainage from the site of his right 1st MTPJ ulcer. 12/19/13 The patient tolerated with TCC without any complaints but there appears to be a small area of erythema over the right 5th MTPJ. He notes his blood sugars are typically below 120 and his A1c last week was 7.4. 12/13/13 The patient has no complaints regarding his TCC nor his plantar ulcer. 12/11/13 The patient returns for placement of a TCC today. He does not report any new problems regarding is plantar ulcer. 12/03/13 The patient states his plantar ulcer drainage is stable and he's continued to not use a cut-out foam doughnut over the ulcer. 11/26/13 The patient has kept the foam dressing in place from the last visit and has not used a cut-out foam dressing which we felt caused some deterioration of the foot ulcer. He has some mild drainage but no pain. 11/22/13 The patient returns for review of his plantar ulcer and callus that seems to be deteriorating despite an adjustment to his boot and off loading measures. The patient reports his callus accumulation is in spite of daily kerasal applications. Patient reports a new small wound on the left second toe. Josue states that it might be related to the brace. Patient had brace modified to help off load. 11/06/13 Josue states he was able to schedule with the prosthetic doctor tomorrow at noon. He reports no new problems or concerns. He also says that he is done with physical therapy since yesterday as insurance will not cover it any longer. 10/31/13 The patient reports he received his dressing supplies. Dressings changes are going well and no new problems are reported. He saw his industrial boilermaker, Dr. Solitario, on Monday for a check up and had and x-ray of the foot. 10/24/13 Josue reports he has been staying off of his feet as much as possible. He has been changing the dressing as ordered and states there has been just a small amount of drainage. He recently ran out of his dressings and will need more ordered or the balance sent home with him. 10/17/13 Patient states he has no new problems or concerns. He did have a small increase in drainage the other day but he had walked more than normal the day before. 10/09/13 Josue states he has no new issues. Dressing changes are going well. 10/02/13 Josue states there have been no new issues with dressing changes. They have been changed once since his last visit. No complaints of pain with the wound. 09/20/13 Josue was discharged from wound care September 05. States that he has been using pumice stone on callus area where had previous wound and may have been too aggressive. Also has been on feet more and having increase in lower extremity edema. Continues to wear the tetragrip F he had received in the clinic 6 hours per day but has not ordered any yet. 09/27/13 Patient states that there have been no issues with using the tetra slp teacher. Asking about getting compression stockings from drug store for continued use. 09/05/13 Patient states he has set up physical therapy for the problems with his knee. He starts these treatments on 09/11. There has been no new issues with his wound and he changes the dressings about every two days. He reports little to no drainage. 08/06/13 States no new problems with wound area. Been using kerosol daily. 08/19/13 Patient states he twisted his knee a week ago, and it is effecting his walk slightly. He also complains of more edema in his legs, and has an appointment with his PCP tomorrow regarding the issue. No new problems or concerns with his wound. No new problems or concerns. Patient states he changed the dressing a few times this last week. Saw Dr. Solitario this past week for check up with no change o his management. 07/26/13 The patient has had new brace for one week and so far it is working out well. No other complaints at this time. 07/18/13 Patient got brace for foot and leg yesterday. No problems or concerns. 07/11/13 No problems or concerns. Changed dressing twice since last visit 07/04/13- Pt went to his PCP and his lasix were increased from 20mg to 40mg. He states his edema has decreased since then. Pt's diabetic foot brace (decreases lateral movement to reduce pressure on the sides of his feet) will arrive in about another week. 06/20/13- Pt reports increased edema in his feet for the last week, he has been walking more, but also sitting with his feet down more. With the increase in exercise he states his back has been hurting. On Sunday 06/18 pt went to [facility],and had his ankle brace fitting. 05/31/[address] Green this am. Changed dressing twice this week. Saw mirror department supervisor (in [place]) on Monday. Considering ankle brace 05/24/13 states started walking program at 5 minutes at a time and taking the bus to clinic apt. 11/08/12 Pt is changing dressing every two days. Is concerned about the edema to the left leg that had the cellulitis. States it is warm. 11/15/12 patient has been having more nerve pain. He has been changing his dressing either every day or every other day. 11/22/12- Patient continues to change dressing about every day. No problems noted. Patient changing dressing about q o day. Thinks wound is less deep. 12/07/12 Pt only changed dressing twice since last visit. No concerns or problems. 12/18/12 When cleaning wound was able to aspirate large purlent sero-sang fluid from site. Pt states he feels it was doing better. 12/24/12 Decreased drainage and pt states he feels the wound is doing well. 12/31 Pt states he has had decreased draiange from wound. Pt denies pain. 01/07/13Pt states the kerasol didn't really do much, but admits he was only applying it every other day and is not sure what his expectations should be. He believes he may have bumped a toe on the left foot and has been concerned about some bruising there but admits it is getting better. Still does not have his new shoes and says he is exploring other options like disability. 01/21/13 feeling well since last visit. feels he may have bumped third toe so wants it to be seen. Level 2- 3 neuropathic pain in right foot 02/27/12 Patient changing bandaid on foot and applying kerasol every three days. Patient got new PCP and saw him yesterday. Patient states things are going well with the wound. 03/12/[address] Green for edema and will see him tomorrow for follow up.03/25/13 states has drainage from bottom of foot. concerned about new wounds Sates he changes dressing every 2 days. Changed this AM as it came off. Using Ca alginate and foam. States no drainage last night 04/19/13 changes dressing every 2-3 days. no problem. Has appt with Dr. Solitario 04/30/13 and new shoes have arrived. To be fitted next week 04/26/13 Is wearing new shoes and states they are working well.Changed dressing twice this week 05.03.[address] Solitario last week. will see again in [address] Green started antibiotic for sinus infection States sinuses not a lot better. Has started Lakshmi D, helping some. States wound about same. Changing dressing 2 x this week as dressing came off. States added collagen one time. Past Medical History This information was obtained from the patient Patient has a medical history of: Left lower extremity cellulitis - 10/15/2012 Diabetic foot ulcer - 09/27/2013 (Hernandez grade 2; right plantar surface; Hernandez grade III (Enterobacter positive wound culture 02/03/14), lateral right 5th MTPJ originally dx 12/24/13; MRSA positive culture 06/04/14 ) Chronic venous hypertension Type II Diabetes Hypertension Morbid Obesity Kidney Stones Hx MRSA Diabetic neuropathy Hallux valgus (right 1st toe) UTI (hospital admit) Cellulitis of legs (June and September 2012- hospital admit) Cataract surgery (10/13/15) Diabetic Neuropathy Complaints and Symptoms This information was obtained from the patient Patient complains of: General Notes: I have reviewed and concur with the Review of Systems and Past Family Social History documents completed by the clinician, I have reviewed and concur with the Wound Assessment document completed by the clinician Cardiovascular (Central/Peripheral): Lower extremity (leg) swelling Integumentary (Hair/Skin/Nails): Open Sore Musculoskeletal: Deformities, Muscle Weakness Neurological: Abnormal Gait, Loss of Protective Sensation, Tremors Prior Wound History: Bleeding, Drainage Patient denies complaints or symptoms related to: Cardiovascular (Central): Irregular heart beat Cardiovascular (Central/Peripheral): Lower extremity (leg) resting pain Constitutional Symptoms (General Health): Chills, Fever, Marked Weight Change Ear/Nose/Mouth/Throat: Hearing Loss / Aid Gastrointestinal (GI): Nausea / Vomiting Hematologic/Lymphatic: Bleeding / Clotting Disorders, Bleeding Tendency Musculoskeletal: Assistive Devices Prior Wound History: Erythema, Malodor, Pain Psychiatric: Memory Loss Respiratory: Oxygen Use, Shortness of Breath OBJECTIVE Constitutional Vital signs reviewed and noted. Well developed. Alert. Clean appearing.. Height/ Length: 71 in (180.34 cm), Weight: 359.9 lbs (163.59 kgs), BMI: 50.2, Temperature: 98.7 ?F ( 37.06 ?C), Pulse: 87 bpm, Respiratory Rate: 18 breaths/min, Blood Pressure: 131/68 mmHg, Capillary Blood Glucose: 181 mg/dl, Pulse Oximetry: 98 %. Vital Signs Notes: Per Patient Ears, Nose, Mouth, and Throat: No clinically significant hearing loss on informal examination. Respiratory: No respiratory distress. Even respirations and without use of accessory muscles.. Cardiovascular: 1+ right lower extremity edema. Gastrointestinal (GI): Obese. Nondistended.. Integumentary (Hair, Skin) No periwound erythema, warmth, or significant drainage. No periwound rashes appreciated or noted otherwise.. Refer to appropriate clinician wound documentation for this visit; right foot ulcer extends to subcut with base partially covered with pink granulation, remainder fibrin and slough; smaller than on preivous review. Moderate amount of callus in the periulcer area. Wound #6 Right, Plantar Foot is a chronic Hernandez Grade 2 Diabetic Ulcer and has received a status of Not Healed. Subsequent wound encounter measurements are 0.8cm length x 0.4cm width x 0.2cm depth, with an area of 0.32 sq cm and a volume of 0.064 cubic cm. No tunneling has been noted. No sinus tract has been noted. No undermining has been noted. There is a moderate amount of serosanguineous drainage noted which has no odor. The patient reports a wound pain of level 0/10. The wound margin is callus. Wound bed has No epithelialization, No eschar, No slough, Yes bright red, firm granulation. The periwound skin color is normal. The periwound skin exhibited: Callus, Moist. The periwound skin did not exhibit: Brawny Induration, Edema, Excoriation, Induration, Crepitus, Fluctuance, Friable, Rash, Dry/Scaly, Maceration. The temperature of the periwound skin is WNL. Periwound skin does not exhibit signs or symptoms of infection. Local Pulse is Palpable. 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 A skin/ subcutaneous tissue level surgical debridement with a total area debrided of 0.32 sq cm was performed by Stephen Nice MD. Subcutaneous was removed along with devitalized tissue: callus and slough. The following instrument(s) were used: curette. Pain control was achieved using 4% Lido. A time out was conducted prior to the start of the procedure. A minimal amount of bleeding was controlled with silver nitrate. The procedure was tolerated well with a pain level of 0 throughout and a pain level of 0 following the procedure. Post Debridement Measurements: 0.8cm length x 0.4cm width x 0.2cm depth; with an area of 0.32 sq cm and a volume of 0.064 cubic cm; Additional Information Muscle fascia or bone removed and sent to pathology?: No PLAN Wound Orders: Wound #6 Right, Plantar Foot Anesthetic Topical Xylocaine to wound bed. - In clinic only. Cleanser Cleanse Wound: - Normal saline and gauze. May Shower. - Do not get wound wet with tap water. Use cast protector when showering. Topical Treatments Antibiotic/Antimicrobial Ointment/Cream. - Iodosorb to wound base. Dressings Cover and secure with: - Foam and hypafix tape. Change Dressing: - Every other day. Additional Orders: Off-Loading Keep weight off: - Right foot as much as possible. Use Knee scooter when able. Use/Wear when Walking: - Offloading shoe. Compression/Edema Control Elevation of leg(s) above the level of the heart when sitting. Avoid prolonged standing in one place. - Please avoid standing or walking for long periods of time. Knee-high gradient compression stockings. - Tetragrip F stockings to both legs. On in the morning and off at night. Follow-Up Appointments Return Appointment: - - Tuesdays and Fridays for callus removal per Dr. Nice. Other information: If you develop fever, chills, increased pain, drainage, redness or swelling please call our office. If after hours, respond to the ER. Should you experience any significant changes in your wound(s) or have any questions regarding your home care instructions please contact the wound center @ [phone]. If after hours, contact your primary care physician or go to the hospital emergency room. Scribing Attestation I attest, as the nurse, that I scribed these orders for the physician. I've reviewed the clinician's documentation and agree with the evaluation and plan as written. In addition, the patient's ulcer demonstrates evidence of non-viable devitalized tissue which will continue to benefit from sharp debridement to help promote granulation and expedite healing. Electronic Signature(s) Signed By: Date: Stephen Nice MD 10/25/2017 06:50:35 Entered By: Stephen Nice on 10/25/2017 06:46:28
== END ==
PROVIDERS: PCP Family Medicine; Visit Provider Internal Medicine
DX: E11.621 Type 2 diabetes mellitus with foot ulcer (principal); L97.512 Non-pressure chronic ulcer of other part of right foot with fat layer exposed
CPT/HCPCS: 11042

== ENCOUNTER → 2017-10-27 09:41 | Outpatient (CLI) | payer MEDICARE, OTHER, SELFPAY ==
--- NOTE | 2017-10-27 | OV.WND_ITS ---
Progress Note Details Patient Name: Josue Mesa Patient Number: [id number] PatientPatientDate: 10/27/2017 Clinician: Janel Daly Clinician Cosigner: Estephanie Grant Physician / Manager Of Applications Development: Stephen Nice SUBJECTIVE Chief Complaint This information was obtained from the patient Diabetic ulcer to right plantar foot. Allergies Augmentin (Severity: Mild, Reaction: nausea) HPI This information was obtained from the patient 10/27/17. Seen by Dr. Nice. 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 10/24/17. Seen by Dr. Nice. The patient does not report increased drainage associated with the chronic right 1st MTPJ diabetic ulcer since his last visit. 10/20/17. Seen by Dr. Nice. The patient does not report increased drainage associated with the chronic right 1st MTPJ diabetic ulcer since his last visit. 10/17/17. Seen by Dr. Nice. The patient does not report increased drainage associated with the chronic right 1st MTPJ diabetic ulcer since his last visit. He continues to wear his offloading shoe as recommended which has been modified to add a layer of foam that's had a recess cut out at the site of the ulcer. 10/13/17. Seen by Dr. Nice. The patient does not report increased drainage associated with the chronic right 1st MTPJ diabetic ulcer since his last visit. 10/10/17. Seen by Dr. Nice. The patient does not report increased drainage associated with the chronic right 1st MTPJ diabetic ulcer since his last visit. 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 10/03/17. Seen by Dr. Nice. The patient does not report increased drainage associated with the chronic right 1st MTPJ diabetic ulcer since his last visit which was 10 days ago. 09/22/17. Seen by Dr. Nice. The patient's xray of his right foot showed a 1st MTPJ intra- articular fracture and he was seen by Dr. Solitario who recommended continued offloading with the forefoot surgical offloading shoe but no further intervention at this time. He does not report pain in the foot nor significant drainage associated with the plantar 1st MTPJ diabetic foot ulcer since his last visit. 09/19/17. Seen by Dr. Nice. The patient reportedly fell on Monday injuring his right foot. He was seen by his PCP yesterday who felt it may have been infected and he was started on Keflex. He does not report pain in the foot and is able to bear weight as usual. He also does not report increased drainage associated with the chronic right 1st MTPJ diabetic ulcer since his last visit. 09/15/17. Seen by Dr. Nice. The patient arrived today feeling quite week and shaky and states he was seen in the ER earlier this morning for similar complaints and subsequently discharged to his [facility]. His CT scan and labs were unremarkable however he was unable to leave a urine sample for analysis at that time. His symptoms persist during our visit however there's no confusion or other acute complaints. He's also finished his course of Bactrim that was treating the recent right diabetic foot ulcer infection and he does not report increased drainage for pain at the ulcer site. 09/12/17. Seen by Dr. Nice. The patient does not report increased drainage associated with the chronic right 1st MTPJ diabetic ulcer since his last visit. He also continues on doxycycline for the recent Staph cultured from the ulcer and he does not report adverse side effects. 09/08/17. Seen by Dr. Nice. The patient's now on doxycycline for the recent coag negative Staph culture taken from the chronic right 1st MTPJ diabetic ulcer. He does not report adverse side effects nor increased drainage or pain associated with the ulcer. 09/05/17. Seen by Dr. Nice. The patient does not report increased drainage associated with the chronic right 1st MTPJ nor right 1st toe dorsal diabetic ulcers since his last visit however the nurse reports increased bloody drainage on the dressing and increased maceration and callus along the distal margin of the ulcer. His recent wound culture grew coag negative Staph and he's not currently on antibiotics. 09/01/17. Seen by Dr. Nice. The patient does not report increased drainage associated with the chronic right 1st MTPJ nor right 1st toe dorsal diabetic ulcers since his last visit. 08/29/17. Seen by Dr. Nice. The patient does not report increased drainage associated with the chronic right 1st MTPJ diabetic ulcer since his last visit. He does complain of progressive upper extremity tremors that are most noticeable in the morning and evening and may occur after he takes his metformin. He does not report low blood sugars and he'll bee seeing his PCP today to discuss this. 08/25/17. Seen by Dr. Nice. The patient reports being more active and on a boat over the holiday which was no conducive to using his knee scooter. He feels the right 1st MTPJ ulcer has deteriorated and he has a new ulcer over the dorsum of the right 1st toe now. 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 08/22/17. Seen by Dr. Nice. The patient was seen at [facility] and they provided a new orthotic insert to help better offload the chronic right 1st MTPJ diabetic ulcer while he's wearing his surgical, forefoot offloading show. He does not report increased drainage or pain associated with the ulcer and is using a knee scooter also to help offload. He has a severe valgus deformity which results in heavy callus formation and has required twice weekly debridements which has been effective in gradually promoting the ulcer to heal. He's also been applying topical gentamicin to the ulcer base to treat the recent coag negative Staph culture that was taken due to increased drainage. 08/18/17. Seen by Dr. Nice. The patient's wound culture taken from the chronic right foot diabetic ulcer at his last visit grew an intermediately resistant coag negative Staph and his dressing change and application of gentamicin is taking place only every 2-3 days. He does not report pain in the foot but staff report his dressing as being 'bloody' today. 08/15/17. Seen by Dr. Nice. The patient reports what may be increased drainage on his right foot diabetic ulcer dressings as mentioned by his career portals teacher in assisted living. He's using a knee scooter as recommended and does not report pain in the foot. He's also asking when it will be appropriate to have his right foot orthotic adjusted in his diabetic shoe although he's currently wearing a forefoot offloading shoe at all times. 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 08/11/17. Seen by Jean-Pierre Pinto PA-C. The patient reports stable drainage from his right foot diabetic ulcer. Again his blood sugars have been above 150 since his last visit. 08/08/17. Seen by Jean-Pierre Pinto PA-C. The patient reports no increase in drainage from his right foot diabetic ulcer. His blood sugars this week have reportedly been mostly above 150. 08/04/17. Seen by Dr. Nice. The patient does not report increased drainage associated with the chronic right plantar foot diabetic ulcer since his last visit and he's offloading appropriately as recommended. He also was seen by Dr. Solitario, podiatry, who discussed possible surgical options to address the severe right 1st toe valgus deformity that's complicating the ulcer and contributing to heavy periculcer callus formation however there's no plan of intervention at this time. 08/01/17. Seen by Dr. Nice. The patient does not report increased drainage associated with the chronic right plantar foot diabetic ulcer since his last visit and he's offloading appropriately as recommended. 07/28/17. Seen by Dr. Nice. The patient does not report increased drainage associated with the chronic right plantar foot diabetic ulcer since his last visit and he's offloading appropriately as recommended. We've increased his visits to twice weekly due to the very heavy callus formation that's contributing to the refractory nature of the ulcer. 07/25/17. Seen by Dr. Nice. The patient does not report increased drainage associated with the chronic right plantar foot diabetic ulcer since his last visit and he's offloading appropriately as recommended. Kerasal is not being applied to the periulcer callus and his visits have been decreased to once weekly over the past few weeks while the ulcer has been improving. 07/18/17. Seen by Dr. Nice. The patient does not report increased drainage associated with the chronic right plantar foot diabetic ulcer since his last visit and he's offloading appropriately as recommended. 07/11/17.Seen by Dr. Nice. The patient has been wearing his offloading shoe and using a knee scooter as recommended and does not report significant drainage associated with the chronic right plantar foot diabetic ulcer since his last visit. 07/04/17. Seen by Dr. Nice. The patient has been wearing his offloading shoe as recommended and does not report significant drainage associated with the chronic right plantar foot diabetic ulcer since his last visit. 06/30/17. Seen by Dr. Nice. The patient has been wearing his offloading shoe as recommended and does not report significant drainage associated with the chronic right plantar foot diabetic ulcer since his last visit. 06/27/2017. Seen by Dr. Nice. The patient has been wearing his offloading shoe as recommended and does not report significant drainage associated with the chronic right plantar foot diabetic ulcer since his last visit. His blood sugars are also mostly below 100 now and he's using his knee scooter as well to further optimize offloading. 06/23/2017. Seen by Dr. Nice. The patient does not report pain nor increased drainage associated with the chronic right plantar foot diabetic ulcer since his last visit. He is wearing his offloading shoe as recommended now and his blood sugar control has improved with some below 200. 06/20/2017. Some by Dr. Nice. The patient is not report increased drainage position with chronic right plantar foot diabetic ulcer since last visit. He is now clindamycin for the resistant Staphylococcus haemolyticus positive culture that was taken to the last visit. His blood sugars continued to be elevated and or over 300 earlier this morning despite having his Lantus dose increased recently. He is also wearing his diabetic shoes but not an offloading surgical shoe as I have been recommending. 06/16/17. Seen by Dr. Nice. The patient does not report increased drainage associated with chronic right plantar foot diabetic ulcers since his last visit. His recent wound culture grew a resistant coag negative staph organism. He also met with his primary care provider, Dr. Green, to increase his dosing of Lantus and plans to work with him on dietary measures to help gain better control of his elevated blood sugars. 06/13/17. Seen by Dr. Nice. The patient's blood sugars again are over 300 today and his appointment with his primary care provider to address this. He does not report any acute changes regarding the chronic right plantar foot diabetic ulcer and is using his knee scooter to help facilitate offloading as much as possible. 06/09/17. Seen by Dr. Nice. The patient does not report significant drainage associated with the chronic right plantar foot diabetic ulcer since his last visit. 06/06/17. Seen by Dr. Nice. The patient does not report significant drainage associated with the chronic right plantar foot diabetic ulcer since his last visit and he's lost another 7 lbs since increasing his dose of Lasix due to abnormal weight gain and significant bilateral lower extremity edema. 06/02/17. Seen by Dr. Nice. The patient does not report significant drainage associated with the chronic right plantar foot diabetic ulcer since his last visit. His increase his dose of Lasix and has lost 7 pounds over the past 3 days. This is been done due to the significant increase in leg swelling over the past 2 weeks. 05/30/17. Seen by Dr. Nice. The patient does not report increased drainage associated with chronic right plantar foot diabetic ulcer since his last visit however he does feel that the right foot and leg are swelling considerably over the past few days. We note a 4 pound weight gain since his last visit on Monday and he states is taking his diuretic as prescribed. 05/26/17. Seen by Dr. Nice. The patient does not report increased drainage associated with chronic right plantar foot diabetic ulcers since his last visit. His culture grew a somewhat resistant coag negative staph and he is not currently on antibiotics. 05/23/17. Seen by Dr. Nice. Staff reports some increased drainage on his dressings covering the chronic right plantar foot diabetic ulcer today. His blood sugar is again over 300 and he states he is eating rice and potatoes trying to cut back. He continues offload with his knee scooter as recommended and does not report pain or any other acute ulcer related issues today. 05/19/17. Seen by Dr. Nice. The patient does not report increased pain or drainage associated with chronic right plantar foot diabetic ulcer since his last visit. He is using his knee scooter as recommended and has had significant problems with heavy callus at the site due to a severe right first toe valgus deformity. He is now attending clinic twice weekly for debridement of the ulcer and complicating callous. 05/16/17. Seen by Dr. Nice. The patient does not report increased drainage or pain associated with chronic right plantar foot diabetic ulcer since his last visit. Of note, the patient's blood sugar as 271 today and his A1c was 9.8 in March. 05/12/17. Seen by Dr. Nice. The patient does not report increased pain or drainage associated with chronic right plantar foot diabetic ulcer since his last visit. He is using his knee scooter to help offload the site which is particularly important based on patient's morbid obesity coupled with his severe first MTPJ valgus deformity. 05/09/17. Seen by Dr. Nice. The patient does not report increased drainage or pain associated with the chronic right plantar foot diabetic ulcer since his last visit. He states his blood sugars continue to be above 200 consistently although are improving with compliance to a lower carbohydrate type diet. He was started on metformin about a month ago he complains of some intermittent upper extremity weakness since then and will be discussing this with his primary care provider. He is also awaiting his new diabetic shoes that are being adjusted to help accommodate for his severe right first toe valgus deformity. 05/02/17. Seen by Jean-Pierre Pinto PA-C. The patient reports stable drainage from his right 1st toe ulcer and blood sugars continue to be above goal. 04/25/17. Seen by Jean-Pierre Pinto PA-C. The patient reports his blood sugars have been above 150 this week. He does not report increased drainage from his right 1st toe diabetic ulcer. 04/18/17. Seen by Dr. Nice. The patient does not report increased drainage associated the chronic right first toe diabetic ulcers since his last visit. 04/11/17. Seen by Jean-Pierre Pinto PA-C. The patient reports he is developing more calloused areas on his feet and is concerned about new ulcers occurring. His chronic 1st toe diabetic ulcer has been stable. 04/04/17. Seen by Jean-Pierre Pinto PA-C. The patient reports he has not been able to get his blood sugars below 150. Drainage is reportedly decreased from his diabetic foot ulcer. 03/30/17. Seen by Jean-Pierre Pinto PA-C. The patient reports continued high blood sugars, all above 150. Drainage from his ulcer is not increased. 03/23/17. s Seen by Jean-Pierre Pinto PA-C. The patient reports blood sugars above 150 again this week. He is concerned that something must be going on with an infection as he believes his diet has not changed and thus his sugars should be lower. His wound has had stable drainage. 03/15/17. Seen by Jean-Pierre Pinto PA-C. The patient reports he has had some blood sugars above 150 this week. He reports no increase in drainage from his right 1st toe diabetic ulcer. 03/08/17. Seen by Dr. Nice. The patient was discharged from the hospital recently following treatment for cellulitis associated with the chronic right first toe diabetic ulcer. He grew MRSA from the wound culture and was treated with IV vancomycin and is now on Bactrim. He does not report pain nor significant drainage associated with the ulcer nor side effects from antibiotics. 02/23/17. Seen by Dr. Nice. The patient does not report increased drainage associated the chronic right first toe diabetic ulcers since his last visit. The patient also states that he is more active over the holidays and was unable to use his knee scooter at times while walking outside due to safety concerns. 02/08/17. Seen by Dr. Nice. The patient does not report increased drainage associated the chronic right first toe diabetic ulcers since his last visit. He states he is using his offloading shoe when at home and a knee scooter went out. 02/01/17. Seen by Dr. Nice. The patient does not report increasing pain or drainage associated with chronic right first toe diabetic ulcer since his last visit. 01/25/17. Seen by Dr. Nice. The patient does not report increasing pain or drainage associated with chronic right first toe diabetic ulcer since his last visit. 01/18/17. Seen by Dr. Nice. The patient does not report increasing pain or drainage associated with chronic right first toe diabetic ulcer since his last visit. Of note, the patient's blood sugar is over 260 again today and he admits that it's been significantly elevated for a number of weeks. He has an appointment with his primary care provider to discuss this next week. 01/11/17. Seen by Dr. Nice. The patient does not report increasing pain or drainage associated with chronic right first toe diabetic ulcer since his last visit. He states his blood sugars have been running high recently and he is going to follow-up with his primary care provider in the near future to address this. 01/04/17. Seen by Dr. Nice. The patient does not report increased drainage associated with chronic right first foot diabetic ulcers since his last visit. He's also been applying Kersal to the periulcer as recommended. 12/28/16. Seen by Dr. Nice. The patient does not report increased drainage associated with chronic right first foot diabetic ulcers since his last visit. 12/22/16. Seen by Dr. Nice. The patient does not report increased drainage associated with chronic right first foot diabetic ulcers since his last visit. He's not been applying Kersal to the periulcer callus and does not appear to be using his knee scooter at all times to offload the ulcer. 12/15/16. Seen by Jean-Pierre Pinto PA-C. The patient reports he continues to have blood sugars above 150 this week. He recently saw his PCP, they did not alter his diabetic care plan. His visit was a follow up for an ER visit for chest pain which was negative for AK and was thought to be epigastric in origin. His diabetic ulcer of the right foot has not had increased drainage. 12/06/16. Seen by Jean-Pierre Pinto PA-C. The patient reports that he has found his knee scooter and plans to start using it today. He also reports most of his blood sugars have been above 150. Drainage from his ulcer has been stable. 11/25/16. Seen by Dr. Nice. The patient does not report increased drainage associated with chronic right first foot diabetic ulcers since his last visit. He is now on antibiotics for wound infection and does not report adverse side effects. Of note, he is not yet using a knee scooter nor offloading shoe as we recommended last week. 11/18/16. Seen by Dr. Nice. The patient returns to our clinic and presents with recurrence of a right first MTPJ plantar diabetic ulcer. He states it started a couple weeks ago when he was attempting to remove overlying callus at home. He does not report significant drainage or pain associated with the ulcer and is not currently on antibiotics. He also states his recent A1c was 7.8. His blood sugar in clinic today is 250. 01/11/16 Seen by Jean-Pierre Pinto PA-C. The patient reports no drainage from his chronic right 1st MTPJ joint since his last dressing change. 01/04/16 Seen by Jean-Pierre Pinto PA-C. The patient reports minimal drainage from his chronic right 1st MTPJ ulcer. He has recently seen his PCP and his A1c was 7.7. His lower extremity edema, abnormal weight gain and kidney failure are stable with his diuretics recently being adjusted. 12/28/15. Seen by Dr. Nice. The patient does not report significant drainage associated with the chronic right 1st MTPJ diabetic ulcer since his last visit however he does complain of increasing shortness of breath, fatigue, and an 18lb weight gain over the past week despite taking his diuretics as recommended. He does not report chest pain or cough and his blood sugars remain relatively well controlled with most below 150. 12/16/15. Seen by Dr. Nice. The patient does not report significant drainage associated with the chronic right 1st MTPJ diabetic ulcer since his last visit. He's applying kerasal to the surrounding callus as recommended and offloading nearly at all times using his knee scooter. 12/07/15 Seen by Jean-Pierre Pinto PA-C. The patient reports compliance with his new offloading brace and shoe and has seen minimal drainage from his diabetic foot ulcer since his last visit. 11/30/15. Seen by Dr. Nice. The patient does not report significant drainage associated with the chronic right 1st MTPJ diabetic ulcer since his last visit and he's wearing a combined AFO / diabetic shoe system that he feels may be better offloading the ulcer. 11/23/15 Seen by Jean-Pierre Pinto PA-C. The patient reports that he is wearing his new diabetic shoes and inserts. He is continuing physical therapy for gait training and reports continued difficulty with stairs and occasional bouts of dizziness. He reports stable drainage from his chronic right foot diabetic ulcer. 11/16/15 Seen by Jean-Pierre Pinto PA-C. The patient reports stable drainage from his right foot diabetic ulcer. He also reports that his diabetic shoes and inserts are quite old and worn out. He is ambulating with is 4 wheeled walker and is working with PT for gait training. 11/09/15 Seen by Jean-Pierre Pinto PA-C. The patient reports that he is still using a 4 wheeled walker instead of a 4 footed walker. PT is working with him to improve his gait and balance. Drainage from his right foot ulcer has been stable. 11/02/15 Seen by Jean-Pierre Pinto PA-C. The patient reports no increase in drainage from his chronic diabetic foot ulcer. He has had multiple blood sugars above 150 this week. 10/29/15. Seen by Dr. Nice. The patient was recently discharged from [facility] following treatment of sepsis thought to possibly be related to his chronic right 1st MTPJ diabetic ulcer that grew Enterococcus just prior to his admission. He now feels generally weak , has lost 18 lbs following diuresis, and is residing at home where he's minimizing his weight bearing on the right foot. He does not report significant drainage from the ulcer nor pain and states his blood sugars remain mostly around 150. He also continues on levofloxacin and does not report adverse side effects. 10/14/15. Seen by Dr. Nice. The patient report persistent bloody drainage from the chronic right 1st MTPJ diabetic ulcer and he feels the callus has increased significantly since it was last debrided 2 week ago. He does not report fevers or feeling unwell and states his blood sugars are well controlled with most below 150. He's using his AFO when walking nearly at all times to facilitate offloading the significant right 1st MTPJ valgus deformity. 09/24/15 Seen by Jean-Pierre Pinto PA-C. The patient reports that he is no ran out of lasix due to a mix up at the pharmacy and unavailability of his strength/dose of tablets. He continues trying to offload his ulcer with his wheeled walker and notes stable ulcer drainage. 09/17/15. Seen by Dr. Nice. The patient continues to report some bloody drainage from the chronic right 1st MTPJ diabetic ulcer and he's started reducing his activity and continues to use his knee scooter at home to offload the foot. 09/10/15. Seen by Dr. Nice. The patient states he was more active over the past week and notices increased bloody drainage associated with chronic right first MTPJ diabetic foot ulcer. He continues to wear his AFO and states his blood sugars are mostly below 150. 09/03/15. Seen by Dr. Nice. The patient does not report significant drainage associated with the chronic right first MTPJ diabetic ulcer over the past week. He does feel that the callus smaller than on previous visits and is wearing his AFO at all times. Of note, he 's now in doxycycline to treat the recent coag negative Staph cultured from the ulcer at his last visit. 08/27/[address] Nice. The patient reports increase bloody drainage associated with the chronic right foot 1st MTPJ diabetic ulcer and he feels his activity has increased due to physical therapy and increased mobility over the past week. He does not report pain at the ulcer site, fevers, or feeling unwell in general. 08/20/[address] Nice. The patient does not report significant drainage associated with the chronic right foot 1st MTPJ diabetic ulcer over the past week and he's using a knee scooter as much as possible when mobilizing to offload the foot. His blood sugars also remain relatively well controlled with most below 150. 08/13/[address] Nice. The patient does not report significant drainage associated with the chronic right foot diabetic ulcer over the past week and he's offloading using a knee scooter as recommended. His blood sugars remain relatively well controlled with most below 150. 08/06/[address] Nice. The patient reports recurrence of some drainage from the chronic right foot diabetic ulcer over the past few days and states he's been more active with physical therapy. His blood sugars remain well controlled with most below 150 and he's wearing his AFO when away from the house and using a knee scooter most of the time while at home to facilitate offloading. He's also applying Kerasal to the callus in the periwound area as recommended. 07/23/[address] Nice. The patient does not report drainage from the chronic right 1st MTPJ diabetic ulcer over the past week and he's using his new AFO and knee scooter to offload the foot. 07/16/[address] Nice. The patient does not report pain or drainage from the chronic right 1st MTPJ diabetic ulcer and he's wearing his newer AFO while offloading with a knee scooter most of the time. 07/09/[address] Nice. The patient does not report drainage or pain associated with his chronic right foot 1st MTPJ diabetic ulcer and he's been offloading by using a knee scooter when mobilizing. His readiness paraprofessional is present today as well to discuss possible adjustments to his AFO with the goal of reducing callus formation that's in part caused by his significant right 1st toe valgus deformity. He also states his blood sugars remain well controlled below 150 consistently. 07/03/[address] Nice. The patient does not report significant drainage from the chronic right foot diabetic ulcer and he's offloading by using his knee scooter. His blood sugars also remain relatively well controlled around 150 consistently. 06/26/[address] Nice. The patient report some continued bloody drainage from the chronic right 1st MTPJ diabetic ulcer however he does not report associated pain , fevers or feeling unwell. His blood sugars remain consistently below 150 and he's using his walker and knee scooter for offloading as recommended. He's also been actively working with his readiness paraprofessional in hopes of better offloading the ulcer and address his significant callus formation and left 1st MTPJ valgus deformity. 06/19/[address] Nice. The patient does not report pain associated with his chronic right 1st MTPJ diabetic ulcer however he states some bloody drainage persists on the dressings. He does not report fevers or feeling unwell and states his blood sugars are well controlled below 150 consistently and he's using a knee scooter and walker to offload the ulcer when mobilizing. He also does not report pain or drainage associated with the left 2nd toe wound. 06/11/[address] Nice. The patient was recently discharged from [facility] following a fall at home that resulted in a broken rib. Regarding his chronic right 1st MTPJ diabetic ulcer he does not report significant drainage and has been offloading through bed rest and using a knee scooter while at home. His blood sugars also remain well controlled with most below 150. He also reports a new wound on the dorsum of the left 2nd toe that he believes occurred during his fall. He does not report associated pain or significant drainage. 05/28/[address] Nice. The patient reports some increased bloody drainage from the chronic right 1st MTPJ diabetic foot ulcer over the weekend associated with a new 'soft' area along the distal margin. He's been more active the past the past few days but states he's using his knee scooter to offload at all times. His blood sugars also remain well controlled with most around 120 and he's no longer on antibiotics. He also continues to wear his old AFO but states there was a recent adjustment of a cut out lined with 'soft' plastic in the area of the ulcer. 05/21/[address] Nice. The patient report less drainage from the chronic right foot 1st MTPJ diabetic ulcer over the past week. He's completed his course of doxycycline and he continues on fluconazole for the recent Alma Delia positive wound culture. He's also reverted back to using his previous AFO while his newer one is adjusted to try to address the recent significant increase in callus formation that's occurred. His blood sugars also remain well controlled under 150 consistently and his recent episodes of hypoglycemia has resolved with an adjustment of his insulin regimen. 05/14/[address] Nice. The patient reports less drainage on the dressings covering the chronic right 1st MTPJ diabetic ulcer since starting doxycycline for a coag negative Staph wound culture along with fluconazole for the alma delia positive culture. His blood sugars remain well controlled below 120 and his insulin has been decreased due to the recent episodes of hypoglycemia. His diuretic has also been decreased as he's lost considerable water weight over the past month. 05/07/[address] Nice. The patient continues to report modest bloody drainage on the dressing covering the chronic right 1st MTPJ diabetic ulcer and he continues to limit his walking but has not been using a knee scooter or walker around the house to facilitate offloading. His blood sugars remain well controlled mostly below 150. 04/30/[address] Nice. The patient continues to report bloody drainage on his right foot diabetic ulcer dressing and he's feeling a bit unwell in general without reporting specific symptoms. He also continues to have intermittent low blood sugars in the 50-60' s and has not discussed this issue with his PCP recently. He's wearing his AFO daily but admits to having difficulty using his walker at all times due to limited space in his new apartment. 04/27/15 Seen by Jean-Pierre Pinto PA-C. The patient reports nonspecific malaise for the past few days. Last night, he reports feeling to tired, weak and shaky to watch TV and went to bed very early. His malaise has been increasing over the past 1-2 weeks and he has frequently been monitoring his blood sugar. His blood sugars are lower than normal lately but never below 100. He has been reducing his insulin dosing in the past 2 weeks to compensate for the lower numbers. He continues to loose weight while continuing to take Lasix and metolazone. 04/23/[address] Nice. The staff and patient continue to report at least moderate serosanquinous drainage from the chronic right 1st MTPJ diabetic ulcer. His blood sugars have been well controlled over the past week with most below 150. He does report being more active than usual while he's been moving to his new home and he also states he continues to loose weight following a recent increase in his diruetics. His wound culture from the last visit reported heavy Diptheroids and he's not currently on antibiotics. 04/20/15 Seen by Jean-Pierre Pinto PA-C. The patient reports that he has moved house and has been on his feet much more so as a consequence. He reports increased drainage from his right plantar foot diabetic ulcer. In addition he believes he struck it against a hard surface when moving. He has had no significant pain with weightbearing but is insensate in this area. 04/15/[address] Nice. The patient reports continued weight loss, and decreasing leg swelling, since starting metolazone totaling about 20 lbs. He also feels the chronic right 1st MTPJ diabetic ulcer has been draining increasing amounts of sanguinous fluid. His blood sugars remain well controlled with most below 120 and he does not report fever or feeling unwell. 03/25/[address] Nice. The patient states he walked a considerable amount yesterday and now reports some bleeding from the chronic right 1st MTPJ diabetic foot ulcer. He also continues to report increased weight gain and now some shortness of breath when walking short distances. He has a low grade fever today but does not report a cough or feeling unwell otherwise. 03/11/2015 Seen by Jean-Pierre Pinto PA-C. The patient's weight has increased 10 lbs in the past week. He reports increased shortness of breath with exertion. He denies chest pain, jaw, neck, shoulder pain or shortness of breath at rest. He has been compliant with his diuretics. His ulcer drainage has been stable. 03/04/2015 Seen by Jean-Pierre Pinto PA-C. The patient is wearing his newly adjusted AFO and reports an increase in walking since last visit. He was unaware that his temperature was elevated and reports no URI symptoms such as cough or sore throat. 02/24/2015 Seen by Jean-Pierre Pinto PA-C. The patient believes his ulcer has now been draining more despite trying to offload the ulcer. 02/11/[address] Nice. The patient reports less drainage from the chronic right 1st toe diabetic ulcer and he's still waiting for approval for his new AFO. 02/04/[address] Nice. The patient feels the drainage from the right 1st MTPJ ulcer has decreased since last week and he's scheduled to see Dr. Solitario tomorrow to review his foot deformity and recurrent callus formation at the site of the ulcer. 01/30/[address] Nice. The patient returns to clinic and reports recurrence of the recently healed right 1st MTPJ diabetic foot ulcer with new moderate drainage and significant callus formation. He's not yet re-established with Dr. Solitario, podiatry, due to insurance issues and is awaiting approval for an adjustment for his AFO. His blood sugars remain controlled below 150 mostly and he does not report pain in the foot or fevers. 01/12/[address] Nice. The patient does not report drainage from the right 1st toe MTPJ ulcer and he's scheduled to have his new AFO fitted this week. 01/05/[address] Nice. The patient does not report drainage associated with the right 1st MTPJ diabetic foot ulcer however he states he has had some intermittent, very brief 'shooting' pain at the site of the ulcer the past few days. His blood sugars also remain between 120 and 150 mostly. 12/29/[address] Nice. The patient does not report drainage from the chronic right 1st MTPJ diabetic foot ulcer and he offloads using a walker and surgical shoe at all times except for when he wears a slipper around his small apartment. 12/22/[address] Nice. The patient does not report significant drainage from the right 1st MTPJ diabetic foot ulcer and he states his blood sugars are still in the 150 range with some over 180. 12/10/[address] Nice. The patient does not report significant drainage from the right 1st MTPJ diabetic foot ulcer. 12/04/[address] Nice. The patient does not report any drainage from the chronic right 1st MTPJ diabetic foot ulcer and he's still waiting for insurance approval for a custom, articulating AFO. His blood sugars also remain relatively well controlled below 150 consistently. He also continues to apply Kerasal to the associated callus daily. 11/20/[address] Nice. The patient's been feeling unwell the past week and feels he may have lost as much as 10 lbs due to poor oral intake. Otherwise he does not report any new problems regarding his right 1st MTPJ plantar diabetic ulcer. 11/07/[address] Nice. The patient reports only scant drainage from the right plantar diabetic foot ulcer. He's been offloading as recommending with a walker and is awaiting a approval for an articulating AFO. His blood sugars remain mostly well controlled below 150. 10/31/14 Seen by Jean-Pierre Pinto PA-C. The patient feels he has reached another plateau with regard to his wound healing. His right plantar diabetic ulcer continues to drain and has not improved recently. He is wearing his brace and reports compliance with offloading. 10/21/[address] Nice. The patient reports only scant drainage from his right 1st plantar surface MTPJ diabetic foot ulcer. He continues to offload with a frame walker and his blood sugars are moderately well controlled with most below 150. 10/14/[address] Nice. The patient does not report significant drainage from the right 1st plantar MTPJ ulcer. Of note, when discussing his blood sugars he mentions he's on both 70/30 insulin as well as Lantus and he frequently has blood sugars in the 150-200 range. 10/07/[address] Nice. The patient reports some modest drainage from the right 1st MTPJ plantar ulcer but no pain, erythema, or swelling. His blood sugars are mostly below 150 and he offloads with his AFO. 09/30/14 Seen by Jean-Pierre Pinto PA-C. The patient reports continued compliance with his AFO and he is trying to offload. He is scheduled now with PT for gait training and knee strengthening. He reports his knee is still sore at times and he feels unstable at times when using his offloading devices and AFO. 09/23/[address] Nice. The patient reports only minimal drainage from the right plantar 1st MTPJ ulcer. 09/16/14 Seen by Jean-Pierre Pinto PA-C. The patient continues to use his AFO, offloading shoe, knee scooter and frame walker to offload his wound. 09/09/14 Seen by Jean-Pierre Pinto PA-C. The patient has been wearing his AFO and offloading shoe together, with the added padding as designed by Sahra BOYD of [employer] [employer]. He reports that he feels unsteady and that his knee has felt strained and he discontinued using the brace as he is concerned that he has, or will, re-injure his right knee. He also is having difficulty using his knee scooter with the brace. One year ago , while attempting to offload his foot he did injure his knee and required physical therapy to recover. 08/19/14 Seen by Jean-Pierre Pinto PA-C. The patient's weight is down 10 lbs from his previous visit. His twice daily naproxen has been discontinued by his PCP in an effort to reduce his lower extremity edema. 08/15/14 Seen by Jean-Pierre Pinto PA-C. The patient continues to have weight fluctuations and large amounts of weight gain in short periods of time despite increased diuretic usage. 08/04/14 Seen by Jean-Pierre Pinto PA-C. The patient has been taking his Levaquin and again reports to the clinic with a low grade fever. He reports nearly daily application of Kerasal and his weight and edema have been stable on a higher dose of diuretics. Blood sugars remain stable on his current diabetic medications. 07/21/14 Seen by Jean-Pierre Pinto PA-C. The patient does not report fever, chills or URI symptoms. His wound drainage has been stable. 07/16/[address] Nice. The patient reports persistent but minimal drainage from the right foot plantar ulcer and continues to offload with a walker at all times. His blood sugar are mostly below 150 with a few around 170 the past few days. 07/01/14 The patient reports that he has gained 8lbs in 8 days. Denies SOB. Does not report fever or chills. 06/23/[address] Nice. The patient continues to offload with a knee scooter and walker at all times. He does not report significant drainage from the right plantar foot ulcer. 06/20/[address] Nice. The patient has been offloading his right foot ulcer with a walker and reports less drainage over the past 2 days. He's now off of antibiotics and his blood sugars remain well controlled below 150. 06/11/[address] Nice. The patient reports persistent drainage from the right foot plantar 1st MTPJ ulcer and he completed his course of doxycycline which was started for a MRSA positive culture from the ulcer site. His blood sugars have also been a bit elevated above 150 recently. He does not report fever or chills however. 06/04/14 The patient reports difficulty in offloading his wound due to inability to use crutches due to poor balance. He find the wheelchair difficult to use and his knee scooter is not rated for his weight. He denies fever, chills or URI symptoms. 05/28/14 The patient's been attempting to offload with a knee scooter but is concerned it may not be appropriate or stable based on his weight. He does not report increased drainage from he right plantar 1st MTPJ ulcer and his blood sugars remain well controlled below 120. 05/21/14 The patient reports only minimal sanguinous drainage from his right foot plantar ulcer and has been offloading it by minimizing his walking. He's also completed a course of doxycycline that was given for a coag negative staph wound culture from the ulcer. He states his blood sugars are consistently below 120 and does not report hypoglycemia. 05/13/14 The patient reports minimal drainage from his right foot plantar ulcer. His recent wound culture from the site returned coag negative Staph and Diptheroids. 05/02/14 The patient reports less drainage from the right plantar foot ulcer and continues to off loading by minimizing walking and wearing a post-op shoe. 04/29/14 The patient continues to wear his surgical boot with the cutout for his right foot plantar diabetic ulcer. He reports no increase in drainage. 04/25/14 The patient reports minimal bloody drainage on the right foot plantar ulcer dressing that was placed yesterday. He does not report any drainage from the previously healed lateral foot ulcer. His edema in the right leg persists despite wearing compression stockings daily and his blood sugars remain well controlled below 120 with his last A1c approx 2 months ago at 7.4. 04/22/14 The patient reports no increase in drainage from his wounds today. He has been faithfully wearing his orthopedic boot with the cut-out area around his 5th MT ulcer. 04/15/14 The patient reports no increase in drainage from his wounds today. He reminds me that a TCC was the cause of his 5th MT ulcer and he is not excited about trying a TCC again. He is interested in HBOT if it will be beneficial to his wounds. 04/09/14 The patient reports increased drainage from his right 5th MT ulcer and feels his surgical boot he's been wearing for off loading may have caused pressure to the area. His blood sugars have improved and he also reports a 5 lb weight loss after doubling his dose of lasix over the past week. Of note, he did not liaise with his PCP prior to doing this. 04/04/14 The patient states that he was walking a bit more than usual yesterday but notes some sanguinous drainage on his plantar 1st MTPJ dressing for the past few days. He's also put on 7 lbs in the past week and feels his legs are more swollen than usual. He does not report chest pain, shortness of breath, or orthopnea. His blood sugars are also up a bit around 180. He's compliant with both his diabetes regimen and his diuretic therapy. 03/28/14 The patient reports no increased drainage or other complications from his right foot diabetic ulcers. 03/21/14 The patient reports minimal drainage from his right foot diabetic ulcers. He continues to minimally weight bear using a surgical boot and a walker. 03/14/14 The patient does not report increased drainage or other new issues regarding his right 5th MTPJ and right 1st MTPJ plantar ulcers. His blood sugars remain more elevated than usual with some between 150 and 180. 03/07/14 The patient reports no fever or increased right foot wound pain or drainage. 02/28/14 The patient reports that his blood sugar this morning is a bit elevated around 160 but has mostly been below 140 over the past few days. He's been off antibiotics for 3 days now and reports modest drainage from the right 5th MT ulcer while dressing changes are being done every two days. 02/24/14 The patient does not report any new issues regarding his right foot ulcers including increased drainage, fever, or chills. He completed his course of doxycycline yesterday. 02/17/14 The patient reports moderate yellow drainage from the right foot 5th MTPJ ulcer. He's completed a course of doxycycline and does not report fever or chills but states his blood sugars remain higher then normal in the 170's. His wound culture was positive for Enterobacter and his ESR was elevated at 41 and CRP at 2.7. 02/06/14 The patient does not report increased drainage from the right 5th MTPJ ulcer nor does he report fever or pain. He continues to off load with a walker and minimizing walking. He continues on doxycycline which was started empirically at his last visit and his culture has since grown Enterobacter which should be susceptible to doxy based on sensitivities. His xray of the foot was not concerning for osteomyelitis however his ESR and CRP are both moderately elevated. He also feels his legs are more swollen than usual and he continues to take his lasix as scheduled. 02/03/14 The patient does not report fever, chills, or pain in the right foot however when the TCC was removed today he's noted to have a sizable increase in the diameter and depth of what was a small 5th MTPJ ulcer. 01/14/14 The patient reports no new problems regarding is right diabetic foot ulcer. 12/31/13 The patient reports minimal serous drainage from his right 5th MTPJ ulcer and states he continues to off load his foot as much as possible. He does not report pain or drainage from the site of his right 1st MTPJ ulcer. 12/19/13 The patient tolerated with TCC without any complaints but there appears to be a small area of erythema over the right 5th MTPJ. He notes his blood sugars are typically below 120 and his A1c last week was 7.4. 12/13/13 The patient has no complaints regarding his TCC nor his plantar ulcer. 12/11/13 The patient returns for placement of a TCC today. He does not report any new problems regarding is plantar ulcer. 12/03/13 The patient states his plantar ulcer drainage is stable and he's continued to not use a cut-out foam doughnut over the ulcer. 11/26/13 The patient has kept the foam dressing in place from the last visit and has not used a cut-out foam dressing which we felt caused some deterioration of the foot ulcer. He has some mild drainage but no pain. 11/22/13 The patient returns for review of his plantar ulcer and callus that seems to be deteriorating despite an adjustment to his boot and off loading measures. The patient reports his callus accumulation is in spite of daily kerasal applications. Patient reports a new small wound on the left second toe. Josue states that it might be related to the brace. Patient had brace modified to help off load. 11/06/13 Josue states he was able to schedule with the prosthetic doctor tomorrow at noon. He reports no new problems or concerns. He also says that he is done with physical therapy since yesterday as insurance will not cover it any longer. 10/31/13 The patient reports he received his dressing supplies. Dressings changes are going well and no new problems are reported. He saw his infectious disease physician, Dr. Solitario, on Monday for a check up and had and x-ray of the foot. 10/24/13 Josue reports he has been staying off of his feet as much as possible. He has been changing the dressing as ordered and states there has been just a small amount of drainage. He recently ran out of his dressings and will need more ordered or the balance sent home with him. 10/17/13 Patient states he has no new problems or concerns. He did have a small increase in drainage the other day but he had walked more than normal the day before. 10/09/13 Josue states he has no new issues. Dressing changes are going well. 10/02/13 Josue states there have been no new issues with dressing changes. They have been changed once since his last visit. No complaints of pain with the wound. 09/20/13 Josue was discharged from wound care September 05. States that he has been using pumice stone on callus area where had previous wound and may have been too aggressive. Also has been on feet more and having increase in lower extremity edema. Continues to wear the tetragrip F he had received in the clinic 6 hours per day but has not ordered any yet. 09/27/13 Patient states that there have been no issues with using the tetra emergency department physician. Asking about getting compression stockings from drug store for continued use. 09/05/13 Patient states he has set up physical therapy for the problems with his knee. He starts these treatments on 09/11. There has been no new issues with his wound and he changes the dressings about every two days. He reports little to no drainage. 08/06/13 States no new problems with wound area. Been using kerosol daily. 08/19/13 Patient states he twisted his knee a week ago, and it is effecting his walk slightly. He also complains of more edema in his legs, and has an appointment with his PCP tomorrow regarding the issue. No new problems or concerns with his wound. No new problems or concerns. Patient states he changed the dressing a few times this last week. Saw Dr. Solitario this past week for check up with no change o his management. 07/26/13 The patient has had new brace for one week and so far it is working out well. No other complaints at this time. 07/18/13 Patient got brace for foot and leg yesterday. No problems or concerns. 07/11/13 No problems or concerns. Changed dressing twice since last visit 07/04/13- Pt went to his PCP and his lasix were increased from 20mg to 40mg. He states his edema has decreased since then. Pt's diabetic foot brace (decreases lateral movement to reduce pressure on the sides of his feet) will arrive in about another week. 06/20/13- Pt reports increased edema in his feet for the last week, he has been walking more, but also sitting with his feet down more. With the increase in exercise he states his back has been hurting. On Sunday 06/18 pt went to [facility],and had his ankle brace fitting. 05/31/[address] Green this am. Changed dressing twice this week. Saw readiness paraprofessional (in [place]) on Monday. Considering ankle brace 05/24/13 states started walking program at 5 minutes at a time and taking the bus to clinic apt. 11/08/12 Pt is changing dressing every two days. Is concerned about the edema to the left leg that had the cellulitis. States it is warm. 11/15/12 patient has been having more nerve pain. He has been changing his dressing either every day or every other day. 11/22/12- Patient continues to change dressing about every day. No problems noted. Patient changing dressing about q o day. Thinks wound is less deep. 12/07/12 Pt only changed dressing twice since last visit. No concerns or problems. 12/18/12 When cleaning wound was able to aspirate large purlent sero-sang fluid from site. Pt states he feels it was doing better. 12/24/12 Decreased drainage and pt states he feels the wound is doing well. 12/31 Pt states he has had decreased draiange from wound. Pt denies pain. 01/07/13Pt states the kerasol didn't really do much, but admits he was only applying it every other day and is not sure what his expectations should be. He believes he may have bumped a toe on the left foot and has been concerned about some bruising there but admits it is getting better. Still does not have his new shoes and says he is exploring other options like disability. 01/21/13 feeling well since last visit. feels he may have bumped third toe so wants it to be seen. Level 2- 3 neuropathic pain in right foot 02/27/12 Patient changing bandaid on foot and applying kerasol every three days. Patient got new PCP and saw him yesterday. Patient states things are going well with the wound. 03/12/[address] Green for edema and will see him tomorrow for follow up.03/25/13 states has drainage from bottom of foot. concerned about new wounds Sates he changes dressing every 2 days. Changed this AM as it came off. Using Ca alginate and foam. States no drainage last night 04/19/13 changes dressing every 2-3 days. no problem. Has appt with Dr. Soiltario 04/30/13 and new shoes have arrived. To be fitted next week 04/26/13 Is wearing new shoes and states they are working well.Changed dressing twice this week 05.03.[address] Solitario last week. will see again in [address] Green started antibiotic for sinus infection States sinuses not a lot better. Has started Lakshmi D, helping some. States wound about same. Changing dressing 2 x this week as dressing came off. States added collagen one time. Past Medical History This information was obtained from the patient Patient has a medical history of: Left lower extremity cellulitis - 10/15/2012 Diabetic foot ulcer - 09/27/2013 (Hernandez grade 2; right plantar surface; Hernandez grade III (Enterobacter positive wound culture 02/03/14), lateral right 5th MTPJ originally dx 12/24/13; MRSA positive culture 06/04/14 ) Chronic venous hypertension Type II Diabetes Hypertension Morbid Obesity Kidney Stones Hx MRSA Diabetic neuropathy Hallux valgus (right 1st toe) UTI (hospital admit) Cellulitis of legs (June and September 2012- hospital admit) Cataract surgery (10/13/15) Diabetic Neuropathy Complaints and Symptoms This information was obtained from the patient Patient complains of: General Notes: I have reviewed and concur with the Review of Systems and Past Family Social History documents completed by the clinician, I have reviewed and concur with the Wound Assessment document completed by the clinician Cardiovascular (Central/Peripheral): Lower extremity (leg) swelling Integumentary (Hair/Skin/Nails): Open Sore Musculoskeletal: Deformities, Muscle Weakness Neurological: Abnormal Gait, Loss of Protective Sensation, Tremors Prior Wound History: Bleeding, Drainage Patient denies complaints or symptoms related to: Cardiovascular (Central): Irregular heart beat Cardiovascular (Central/Peripheral): Lower extremity (leg) resting pain Constitutional Symptoms (General Health): Chills, Fever, Marked Weight Change Ear/Nose/Mouth/Throat: Hearing Loss / Aid Gastrointestinal (GI): Nausea / Vomiting Hematologic/Lymphatic: Bleeding / Clotting Disorders, Bleeding Tendency Musculoskeletal: Assistive Devices Prior Wound History: Erythema, Malodor, Pain Psychiatric: Memory Loss Respiratory: Oxygen Use, Shortness of Breath OBJECTIVE Constitutional BP elevated; Afebrile; Alert and in no distress. Well developed. Alert. Clean appearing.. Height/Length: 71 in (180.34 cm), Weight: 364.3 lbs (165.59 kgs), BMI: 50.8, Temperature: 98.0 ?F (36.67 ?C), Pulse: 72 bpm, Respiratory Rate: 18 breaths/min, Blood Pressure: 140/63 mmHg, Capillary Blood Glucose: 217 mg/dl, Pulse Oximetry: 97 %. Vital Signs Notes: Per Patient Respiratory: No respiratory distress. Even respirations and without use of accessory muscles.. Cardiovascular: 1+ right lower extremity edema. Gastrointestinal (GI): Obese. Nondistended.. 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 Integumentary (Hair, Skin) No periwound erythema, warmth, or significant drainage. No periwound rashes appreciated or noted otherwise.. Refer to appropriate clinician wound documentation for this visit; right foot ulcer extends to subcut with base partially covered with pink granulation, remainder fibrin and slough; smaller than on previous review. Moderate amount of callus in the periulcer area. Wound #6 Right, Plantar Foot is a chronic Hernandez Grade 2 Diabetic Ulcer and has received a status of Not Healed. Subsequent wound encounter measurements are 1cm length x 0.3cm width x 0.2cm depth, with an area of 0.3 sq cm and a volume of 0.06 cubic cm. No tunneling has been noted. No sinus tract has been noted. No undermining has been noted. There is a small amount of serosanguineous drainage noted which has no odor. The patient reports a wound pain of level 0/10. The wound margin is callus. Wound bed has No epithelialization, No eschar, No slough, Yes bright red, firm granulation. The periwound skin color is normal. The periwound skin exhibited: Callus, Moist. The periwound skin did not exhibit: Brawny Induration, Edema, Excoriation, Induration, Crepitus, Fluctuance, Friable, Rash, Dry/Scaly, Maceration. The temperature of the periwound skin is WNL. Periwound skin does not exhibit signs or symptoms of infection. Local Pulse is Palpable. Neurological: Cranial nerves grossly intact with symmetric function normal by informal observation.. 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 A skin/ subcutaneous tissue level surgical debridement with a total area debrided of 0.3 sq cm was performed by Stephen Nice MD. Subcutaneous was removed along with devitalized tissue: callus. The following instrument(s) were used: curette. Pain control was achieved using 4% Lido. A time out was conducted prior to the start of the procedure. A minimal amount of bleeding was controlled with silver nitrate. The procedure was tolerated well with a pain level of 0 throughout and a pain level of 0 following the procedure. Post Debridement Measurements: 1cm length x 0.3cm width x 0.3cm depth; with an area of 0.3 sq cm and a volume of 0.09 cubic cm; Additional Information Muscle fascia or bone removed and sent to pathology?: No PLAN Wound Orders: Wound #6 Right, Plantar Foot Anesthetic Topical Xylocaine to wound bed. - In clinic only. Cleanser Cleanse Wound: - Normal saline and gauze. May Shower. - Do not get wound wet with tap water. Use cast protector when showering. Topical Treatments Antibiotic/Antimicrobial Ointment/Cream. - Iodosorb to wound base. Dressings Cover and secure with: - Foam and hypafix tape. Change Dressing: - Every other day. Additional Orders: Off-Loading Keep weight off: - Right foot as much as possible. Use Knee scooter when able. Use/Wear when Walking: - Offloading shoe. Compression/Edema Control Elevation of leg(s) above the level of the heart when sitting. Avoid prolonged standing in one place. - Please avoid standing or walking for long periods of time. Knee-high gradient compression stockings. - Tetragrip F stockings to both legs. On in the morning and off at night. Follow-Up Appointments Return Appointment: - - Tuesdays and Fridays for callus removal per Dr. Nice. Other information: If you develop fever, chills, increased pain, drainage, redness or swelling please call our office. If after hours, respond to the ER. Should you experience any significant changes in your wound(s) or have any questions regarding your home care instructions please contact the wound center @ [phone]. If after hours, contact your primary care physician or go to the hospital emergency room. Scribing Attestation I attest, as the nurse, that I scribed these orders for the physician. I've reviewed the clinician's documentation and agree with the evaluation and plan as written. In addition, the patient's ulcer demonstrates evidence of non-viable devitalized tissue which will continue to benefit from sharp debridement to help promote granulation and expedite healing. Also, there appears to be less callus today and we'll continue to work with the readiness paraprofessional regarding offloading measures for the patient's right 1st MTPJ ulcer and valgus deformity. Electronic Signature(s) Signed By: Date: Stephen Nice MD 10/29/2017 16:38:10 Entered By: Stephen Nice on 10/29/2017 16:34:33
== END ==
PROVIDERS: PCP Family Medicine; Visit Provider Internal Medicine
DX: S81.802A Unspecified open wound, left lower leg, initial encounter (principal)
CPT/HCPCS: 11042

== ENCOUNTER → 2017-10-31 09:11 | Outpatient (CLI) | payer MEDICARE, OTHER, SELFPAY ==
--- NOTE | 2017-10-31 | OV.WND_ITS ---
Progress Note Details Patient Name: Josue Mesa Patient Number: [id number] PatientPatientDate: 10/31/2017 Clinician: Janel Daly Physician / Tester [employer]ocket Engine: Stephen Nice SUBJECTIVE Chief Complaint This information was obtained from the patient Diabetic ulcer to right plantar foot. Allergies Augmentin (Severity: Mild, Reaction: nausea) HPI This information was obtained from the patient 10/31/17. Seen by Dr. Nice. The patient does not report increased drainage associated with the chronic right 1st MTPJ diabetic ulcer since his last visit. 10/27/17. Seen by Dr. Nice. 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 10/24/17. Seen by Dr. Nice. The patient does not report increased drainage associated with the chronic right 1st MTPJ diabetic ulcer since his last visit. 10/20/17. Seen by Dr. Nice. The patient does not report increased drainage associated with the chronic right 1st MTPJ diabetic ulcer since his last visit. 10/17/17. Seen by Dr. Nice. The patient does not report increased drainage associated with the chronic right 1st MTPJ diabetic ulcer since his last visit. He continues to wear his offloading shoe as recommended which has been modified to add a layer of foam that's had a recess cut out at the site of the ulcer. 10/13/17. Seen by Dr. Nice. The patient does not report increased drainage associated with the chronic right 1st MTPJ diabetic ulcer since his last visit. 10/10/17. Seen by Dr. Nice. The patient does not report increased drainage associated with the chronic right 1st MTPJ diabetic ulcer since his last visit. 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 10/03/17. Seen by Dr. Nice. The patient does not report increased drainage associated with the chronic right 1st MTPJ diabetic ulcer since his last visit which was 10 days ago. 09/22/17. Seen by Dr. Nice. The patient's xray of his right foot showed a 1st MTPJ intra- articular fracture and he was seen by Dr. Solitario who recommended continued offloading with the forefoot surgical offloading shoe but no further intervention at this time. He does not report pain in the foot nor significant drainage associated with the plantar 1st MTPJ diabetic foot ulcer since his last visit. 09/19/17. Seen by Dr. Nice. The patient reportedly fell on Monday injuring his right foot. He was seen by his PCP yesterday who felt it may have been infected and he was started on Keflex. He does not report pain in the foot and is able to bear weight as usual. He also does not report increased drainage associated with the chronic right 1st MTPJ diabetic ulcer since his last visit. 09/15/17. Seen by Dr. Nice. The patient arrived today feeling quite week and shaky and states he was seen in the ER earlier this morning for similar complaints and subsequently discharged to his [facility]. His CT scan and labs were unremarkable however he was unable to leave a urine sample for analysis at that time. His symptoms persist during our visit however there's no confusion or other acute complaints. He's also finished his course of Bactrim that was treating the recent right diabetic foot ulcer infection and he does not report increased drainage for pain at the ulcer site. 09/12/17. Seen by Dr. Nice. The patient does not report increased drainage associated with the chronic right 1st MTPJ diabetic ulcer since his last visit. He also continues on doxycycline for the recent Staph cultured from the ulcer and he does not report adverse side effects. 09/08/17. Seen by Dr. Nice. The patient's now on doxycycline for the recent coag negative Staph culture taken from the chronic right 1st MTPJ diabetic ulcer. He does not report adverse side effects nor increased drainage or pain associated with the ulcer. 09/05/17. Seen by Dr. Nice. The patient does not report increased drainage associated with the chronic right 1st MTPJ nor right 1st toe dorsal diabetic ulcers since his last visit however the nurse reports increased bloody drainage on the dressing and increased maceration and callus along the distal margin of the ulcer. His recent wound culture grew coag negative Staph and he's not currently on antibiotics. 09/01/17. Seen by Dr. Nice. The patient does not report increased drainage associated with the chronic right 1st MTPJ nor right 1st toe dorsal diabetic ulcers since his last visit. 08/29/17. Seen by Dr. Nice. The patient does not report increased drainage associated with the chronic right 1st MTPJ diabetic ulcer since his last visit. He does complain of progressive upper extremity tremors that are most noticeable in the morning and evening and may occur after he takes his metformin. He does not report low blood sugars and he'll bee seeing his PCP today to discuss this. 08/25/17. Seen by Dr. Nice. The patient reports being more active and on a boat over the holiday which was no conducive to using his knee scooter. He feels the right 1st MTPJ ulcer has deteriorated and he has a new ulcer over the dorsum of the right 1st toe now. 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 08/22/17. Seen by Dr. Nice. The patient was seen at [facility] and they provided a new orthotic insert to help better offload the chronic right 1st MTPJ diabetic ulcer while he's wearing his surgical, forefoot offloading show. He does not report increased drainage or pain associated with the ulcer and is using a knee scooter also to help offload. He has a severe valgus deformity which results in heavy callus formation and has required twice weekly debridements which has been effective in gradually promoting the ulcer to heal. He's also been applying topical gentamicin to the ulcer base to treat the recent coag negative Staph culture that was taken due to increased drainage. 08/18/17. Seen by Dr. Nice. The patient's wound culture taken from the chronic right foot diabetic ulcer at his last visit grew an intermediately resistant coag negative Staph and his dressing change and application of gentamicin is taking place only every 2-3 days. He does not report pain in the foot but staff report his dressing as being 'bloody' today. 08/15/17. Seen by Dr. Nice. The patient reports what may be increased drainage on his right foot diabetic ulcer dressings as mentioned by his director of health care marketing in assisted living. He's using a knee scooter as recommended and does not report pain in the foot. He's also asking when it will be appropriate to have his right foot orthotic adjusted in his diabetic shoe although he's currently wearing a forefoot offloading shoe at all times. 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 08/11/17. Seen by Jean-Peirre Pinto PA-C. The patient reports stable drainage from his right foot diabetic ulcer. Again his blood sugars have been above 150 since his last visit. 08/08/17. Seen by Jean-Pierre Pinto PA-C. The patient reports no increase in drainage from his right foot diabetic ulcer. His blood sugars this week have reportedly been mostly above 150. 08/04/17. Seen by Dr. Nice. The patient does not report increased drainage associated with the chronic right plantar foot diabetic ulcer since his last visit and he's offloading appropriately as recommended. He also was seen by Dr. Solitario, podiatry, who discussed possible surgical options to address the severe right 1st toe valgus deformity that's complicating the ulcer and contributing to heavy periculcer callus formation however there's no plan of intervention at this time. 08/01/17. Seen by Dr. Nice. The patient does not report increased drainage associated with the chronic right plantar foot diabetic ulcer since his last visit and he's offloading appropriately as recommended. 07/28/17. Seen by Dr. Nice. The patient does not report increased drainage associated with the chronic right plantar foot diabetic ulcer since his last visit and he's offloading appropriately as recommended. We've increased his visits to twice weekly due to the very heavy callus formation that's contributing to the refractory nature of the ulcer. 07/25/17. Seen by Dr. Nice. The patient does not report increased drainage associated with the chronic right plantar foot diabetic ulcer since his last visit and he's offloading appropriately as recommended. Kerasal is not being applied to the periulcer callus and his visits have been decreased to once weekly over the past few weeks while the ulcer has been improving. 07/18/17. Seen by Dr. Nice. The patient does not report increased drainage associated with the chronic right plantar foot diabetic ulcer since his last visit and he's offloading appropriately as recommended. 07/11/17.Seen by Dr. Nice. The patient has been wearing his offloading shoe and using a knee scooter as recommended and does not report significant drainage associated with the chronic right plantar foot diabetic ulcer since his last visit. 07/04/17. Seen by Dr. Nice. The patient has been wearing his offloading shoe as recommended and does not report significant drainage associated with the chronic right plantar foot diabetic ulcer since his last visit. 06/30/17. Seen by Dr. Nice. The patient has been wearing his offloading shoe as recommended and does not report significant drainage associated with the chronic right plantar foot diabetic ulcer since his last visit. 06/27/2017. Seen by Dr. Nice. The patient has been wearing his offloading shoe as recommended and does not report significant drainage associated with the chronic right plantar foot diabetic ulcer since his last visit. His blood sugars are also mostly below 100 now and he's using his knee scooter as well to further optimize offloading. 06/23/2017. Seen by Dr. Nice. The patient does not report pain nor increased drainage associated with the chronic right plantar foot diabetic ulcer since his last visit. He is wearing his offloading shoe as recommended now and his blood sugar control has improved with some below 200. 06/20/2017. Some by Dr. Nice. The patient is not report increased drainage position with chronic right plantar foot diabetic ulcer since last visit. He is now clindamycin for the resistant Staphylococcus haemolyticus positive culture that was taken to the last visit. His blood sugars continued to be elevated and or over 300 earlier this morning despite having his Lantus dose increased recently. He is also wearing his diabetic shoes but not an offloading surgical shoe as I have been recommending. 06/16/17. Seen by Dr. Nice. The patient does not report increased drainage associated with chronic right plantar foot diabetic ulcers since his last visit. His recent wound culture grew a resistant coag negative staph organism. He also met with his primary care provider, Dr. Green, to increase his dosing of Lantus and plans to work with him on dietary measures to help gain better control of his elevated blood sugars. 06/13/17. Seen by Dr. Nice. The patient's blood sugars again are over 300 today and his appointment with his primary care provider to address this. He does not report any acute changes regarding the chronic right plantar foot diabetic ulcer and is using his knee scooter to help facilitate offloading as much as possible. 06/09/17. Seen by Dr. Nice. The patient does not report significant drainage associated with the chronic right plantar foot diabetic ulcer since his last visit. 06/06/17. Seen by Dr. Nice. The patient does not report significant drainage associated with the chronic right plantar foot diabetic ulcer since his last visit and he's lost another 7 lbs since increasing his dose of Lasix due to abnormal weight gain and significant bilateral lower extremity edema. 06/02/17. Seen by Dr. Nice. The patient does not report significant drainage associated with the chronic right plantar foot diabetic ulcer since his last visit. His increase his dose of Lasix and has lost 7 pounds over the past 3 days. This is been done due to the significant increase in leg swelling over the past 2 weeks. 05/30/17. Seen by Dr. Nice. The patient does not report increased drainage associated with chronic right plantar foot diabetic ulcer since his last visit however he does feel that the right foot and leg are swelling considerably over the past few days. We note a 4 pound weight gain since his last visit on Monday and he states is taking his diuretic as prescribed. 05/26/17. Seen by Dr. Nice. The patient does not report increased drainage associated with chronic right plantar foot diabetic ulcers since his last visit. His culture grew a somewhat resistant coag negative staph and he is not currently on antibiotics. 05/23/17. Seen by Dr. Nice. Staff reports some increased drainage on his dressings covering the chronic right plantar foot diabetic ulcer today. His blood sugar is again over 300 and he states he is eating rice and potatoes trying to cut back. He continues offload with his knee scooter as recommended and does not report pain or any other acute ulcer related issues today. 05/19/17. Seen by Dr. Nice. The patient does not report increased pain or drainage associated with chronic right plantar foot diabetic ulcer since his last visit. He is using his knee scooter as recommended and has had significant problems with heavy callus at the site due to a severe right first toe valgus deformity. He is now attending clinic twice weekly for debridement of the ulcer and complicating callous. 05/16/17. Seen by Dr. Nice. The patient does not report increased drainage or pain associated with chronic right plantar foot diabetic ulcer since his last visit. Of note, the patient's blood sugar as 271 today and his A1c was 9.8 in March. 05/12/17. Seen by Dr. Nice. The patient does not report increased pain or drainage associated with chronic right plantar foot diabetic ulcer since his last visit. He is using his knee scooter to help offload the site which is particularly important based on patient's morbid obesity coupled with his severe first MTPJ valgus deformity. 05/09/17. Seen by Dr. Nice. The patient does not report increased drainage or pain associated with the chronic right plantar foot diabetic ulcer since his last visit. He states his blood sugars continue to be above 200 consistently although are improving with compliance to a lower carbohydrate type diet. He was started on metformin about a month ago he complains of some intermittent upper extremity weakness since then and will be discussing this with his primary care provider. He is also awaiting his new diabetic shoes that are being adjusted to help accommodate for his severe right first toe valgus deformity. 05/02/17. Seen by Jean-Pierre Pinto PA-C. The patient reports stable drainage from his right 1st toe ulcer and blood sugars continue to be above goal. 04/25/17. Seen by Jean-Pierre Pinto PA-C. The patient reports his blood sugars have been above 150 this week. He does not report increased drainage from his right 1st toe diabetic ulcer. 04/18/17. Seen by Dr. Nice. The patient does not report increased drainage associated the chronic right first toe diabetic ulcers since his last visit. 04/11/17. Seen by Jean-Pierre Pinto PA-C. The patient reports he is developing more calloused areas on his feet and is concerned about new ulcers occurring. His chronic 1st toe diabetic ulcer has been stable. 04/04/17. Seen by Jean-Pierre Pinto PA-C. The patient reports he has not been able to get his blood sugars below 150. Drainage is reportedly decreased from his diabetic foot ulcer. 03/30/17. Seen by Jean-Pierre Pinto PA-C. The patient reports continued high blood sugars, all above 150. Drainage from his ulcer is not increased. 03/23/17. s Seen by Jean-Pierre Pinto PA-C. The patient reports blood sugars above 150 again this week. He is concerned that something must be going on with an infection as he believes his diet has not changed and thus his sugars should be lower. His wound has had stable drainage. 03/15/17. Seen by Jean-Pierre Pinto PA-C. The patient reports he has had some blood sugars above 150 this week. He reports no increase in drainage from his right 1st toe diabetic ulcer. 03/08/17. Seen by Dr. Nice. The patient was discharged from the hospital recently following treatment for cellulitis associated with the chronic right first toe diabetic ulcer. He grew MRSA from the wound culture and was treated with IV vancomycin and is now on Bactrim. He does not report pain nor significant drainage associated with the ulcer nor side effects from antibiotics. 02/23/17. Seen by Dr. Nice. The patient does not report increased drainage associated the chronic right first toe diabetic ulcers since his last visit. The patient also states that he is more active over the holidays and was unable to use his knee scooter at times while walking outside due to safety concerns. 02/08/17. Seen by Dr. Nice. The patient does not report increased drainage associated the chronic right first toe diabetic ulcers since his last visit. He states he is using his offloading shoe when at home and a knee scooter went out. 02/01/17. Seen by Dr. Nice. The patient does not report increasing pain or drainage associated with chronic right first toe diabetic ulcer since his last visit. 01/25/17. Seen by Dr. Nice. The patient does not report increasing pain or drainage associated with chronic right first toe diabetic ulcer since his last visit. 01/18/17. Seen by Dr. Nice. The patient does not report increasing pain or drainage associated with chronic right first toe diabetic ulcer since his last visit. Of note, the patient's blood sugar is over 260 again today and he admits that it's been significantly elevated for a number of weeks. He has an appointment with his primary care provider to discuss this next week. 01/11/17. Seen by Dr. Nice. The patient does not report increasing pain or drainage associated with chronic right first toe diabetic ulcer since his last visit. He states his blood sugars have been running high recently and he is going to follow-up with his primary care provider in the near future to address this. 01/04/17. Seen by Dr. Nice. The patient does not report increased drainage associated with chronic right first foot diabetic ulcers since his last visit. He's also been applying Kersal to the periulcer as recommended. 12/28/16. Seen by Dr. Nice. The patient does not report increased drainage associated with chronic right first foot diabetic ulcers since his last visit. 12/22/16. Seen by Dr. Nice. The patient does not report increased drainage associated with chronic right first foot diabetic ulcers since his last visit. He's not been applying Kersal to the periulcer callus and does not appear to be using his knee scooter at all times to offload the ulcer. 12/15/16. Seen by Jean-Pierre Pinto PA-C. The patient reports he continues to have blood sugars above 150 this week. He recently saw his PCP, they did not alter his diabetic care plan. His visit was a follow up for an ER visit for chest pain which was negative for [place] and was thought to be epigastric in origin. His diabetic ulcer of the right foot has not had increased drainage. 12/06/16. Seen by Jean-Pierre Pinto PA-C. The patient reports that he has found his knee scooter and plans to start using it today. He also reports most of his blood sugars have been above 150. Drainage from his ulcer has been stable. 11/25/16. Seen by Dr. Nice. The patient does not report increased drainage associated with chronic right first foot diabetic ulcers since his last visit. He is now on antibiotics for wound infection and does not report adverse side effects. Of note, he is not yet using a knee scooter nor offloading shoe as we recommended last week. 11/18/16. Seen by Dr. Nice. The patient returns to our clinic and presents with recurrence of a right first MTPJ plantar diabetic ulcer. He states it started a couple weeks ago when he was attempting to remove overlying callus at home. He does not report significant drainage or pain associated with the ulcer and is not currently on antibiotics. He also states his recent A1c was 7.8. His blood sugar in clinic today is 250. 01/11/16 Seen by Jean-Pierre Pinto PA-C. The patient reports no drainage from his chronic right 1st MTPJ joint since his last dressing change. 01/04/16 Seen by Jean-Pierre Pinto PA-C. The patient reports minimal drainage from his chronic right 1st MTPJ ulcer. He has recently seen his PCP and his A1c was 7.7. His lower extremity edema, abnormal weight gain and kidney failure are stable with his diuretics recently being adjusted. 12/28/15. Seen by Dr. Nice. The patient does not report significant drainage associated with the chronic right 1st MTPJ diabetic ulcer since his last visit however he does complain of increasing shortness of breath, fatigue, and an 18lb weight gain over the past week despite taking his diuretics as recommended. He does not report chest pain or cough and his blood sugars remain relatively well controlled with most below 150. 12/16/15. Seen by Dr. Nice. The patient does not report significant drainage associated with the chronic right 1st MTPJ diabetic ulcer since his last visit. He's applying kerasal to the surrounding callus as recommended and offloading nearly at all times using his knee scooter. 12/07/15 Seen by Jean-Pierre Pinto PA-C. The patient reports compliance with his new offloading brace and shoe and has seen minimal drainage from his diabetic foot ulcer since his last visit. 11/30/15. Seen by Dr. Nice. The patient does not report significant drainage associated with the chronic right 1st MTPJ diabetic ulcer since his last visit and he's wearing a combined AFO / diabetic shoe system that he feels may be better offloading the ulcer. 11/23/15 Seen by Jean-Pierre Pinto PA-C. The patient reports that he is wearing his new diabetic shoes and inserts. He is continuing physical therapy for gait training and reports continued difficulty with stairs and occasional bouts of dizziness. He reports stable drainage from his chronic right foot diabetic ulcer. 11/16/15 Seen by Jean-Pierre Pinto PA-C. The patient reports stable drainage from his right foot diabetic ulcer. He also reports that his diabetic shoes and inserts are quite old and worn out. He is ambulating with is 4 wheeled walker and is working with PT for gait training. 11/09/15 Seen by Jean-Pierre Pinto PA-C. The patient reports that he is still using a 4 wheeled walker instead of a 4 footed walker. PT is working with him to improve his gait and balance. Drainage from his right foot ulcer has been stable. 11/02/15 Seen by Jean-Pierre Pinto PA-C. The patient reports no increase in drainage from his chronic diabetic foot ulcer. He has had multiple blood sugars above 150 this week. 10/29/15. Seen by Dr. Nice. The patient was recently discharged from [facility] following treatment of sepsis thought to possibly be related to his chronic right 1st MTPJ diabetic ulcer that grew Enterococcus just prior to his admission. He now feels generally weak , has lost 18 lbs following diuresis, and is residing at home where he's minimizing his weight bearing on the right foot. He does not report significant drainage from the ulcer nor pain and states his blood sugars remain mostly around 150. He also continues on levofloxacin and does not report adverse side effects. 10/14/15. Seen by Dr. Nice. The patient report persistent bloody drainage from the chronic right 1st MTPJ diabetic ulcer and he feels the callus has increased significantly since it was last debrided 2 week ago. He does not report fevers or feeling unwell and states his blood sugars are well controlled with most below 150. He's using his AFO when walking nearly at all times to facilitate offloading the significant right 1st MTPJ valgus deformity. 09/24/15 Seen by Jean-Pierre Pinto PA-C. The patient reports that he is no ran out of lasix due to a mix up at the pharmacy and unavailability of his strength/dose of tablets. He continues trying to offload his ulcer with his wheeled walker and notes stable ulcer drainage. 09/17/15. Seen by Dr. Nice. The patient continues to report some bloody drainage from the chronic right 1st MTPJ diabetic ulcer and he's started reducing his activity and continues to use his knee scooter at home to offload the foot. 09/10/15. Seen by Dr. Nice. The patient states he was more active over the past week and notices increased bloody drainage associated with chronic right first MTPJ diabetic foot ulcer. He continues to wear his AFO and states his blood sugars are mostly below 150. 09/03/15. Seen by Dr. Nice. The patient does not report significant drainage associated with the chronic right first MTPJ diabetic ulcer over the past week. He does feel that the callus smaller than on previous visits and is wearing his AFO at all times. Of note, he 's now in doxycycline to treat the recent coag negative Staph cultured from the ulcer at his last visit. 08/27/[address] Nice. The patient reports increase bloody drainage associated with the chronic right foot 1st MTPJ diabetic ulcer and he feels his activity has increased due to physical therapy and increased mobility over the past week. He does not report pain at the ulcer site, fevers, or feeling unwell in general. 08/20/[address] Nice. The patient does not report significant drainage associated with the chronic right foot 1st MTPJ diabetic ulcer over the past week and he's using a knee scooter as much as possible when mobilizing to offload the foot. His blood sugars also remain relatively well controlled with most below 150. 08/13/[address] Nice. The patient does not report significant drainage associated with the chronic right foot diabetic ulcer over the past week and he's offloading using a knee scooter as recommended. His blood sugars remain relatively well controlled with most below 150. 08/06/[address] Nice. The patient reports recurrence of some drainage from the chronic right foot diabetic ulcer over the past few days and states he's been more active with physical therapy. His blood sugars remain well controlled with most below 150 and he's wearing his AFO when away from the house and using a knee scooter most of the time while at home to facilitate offloading. He's also applying Kerasal to the callus in the periwound area as recommended. 07/23/[address] Nice. The patient does not report drainage from the chronic right 1st MTPJ diabetic ulcer over the past week and he's using his new AFO and knee scooter to offload the foot. 07/16/[address] Nice. The patient does not report pain or drainage from the chronic right 1st MTPJ diabetic ulcer and he's wearing his newer AFO while offloading with a knee scooter most of the time. 07/09/[address] Nice. The patient does not report drainage or pain associated with his chronic right foot 1st MTPJ diabetic ulcer and he's been offloading by using a knee scooter when mobilizing. 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 He also states his blood sugars remain well controlled below 150 consistently. 07/03/[address] Nice. The patient does not report significant drainage from the chronic right foot diabetic ulcer and he's offloading by using his knee scooter. His blood sugars also remain relatively well controlled around 150 consistently. 06/26/[address] Nice. The patient report some continued bloody drainage from the chronic right 1st MTPJ diabetic ulcer however he does not report associated pain , fevers or feeling unwell. His blood sugars remain consistently below 150 and he's using his walker and knee scooter for offloading as recommended. He's also been actively working with his restaurant supervisor in hopes of better offloading the ulcer and address his significant callus formation and left 1st MTPJ valgus deformity. 06/19/[address] Nice. The patient does not report pain associated with his chronic right 1st MTPJ diabetic ulcer however he states some bloody drainage persists on the dressings. He does not report fevers or feeling unwell and states his blood sugars are well controlled below 150 consistently and he's using a knee scooter and walker to offload the ulcer when mobilizing. He also does not report pain or drainage associated with the left 2nd toe wound. 06/11/[address] Nice. The patient was recently discharged from [facility] following a fall at home that resulted in a broken rib. Regarding his chronic right 1st MTPJ diabetic ulcer he does not report significant drainage and has been offloading through bed rest and using a knee scooter while at home. His blood sugars also remain well controlled with most below 150. He also reports a new wound on the dorsum of the left 2nd toe that he believes occurred during his fall. He does not report associated pain or significant drainage. 05/28/[address] Nice. The patient reports some increased bloody drainage from the chronic right 1st MTPJ diabetic foot ulcer over the weekend associated with a new 'soft' area along the distal margin. He's been more active the past the past few days but states he's using his knee scooter to offload at all times. His blood sugars also remain well controlled with most around 120 and he's no longer on antibiotics. He also continues to wear his old AFO but states there was a recent adjustment of a cut out lined with 'soft' plastic in the area of the ulcer. 05/21/[address] Nice. The patient report less drainage from the chronic right foot 1st MTPJ diabetic ulcer over the past week. He's completed his course of doxycycline and he continues on fluconazole for the recent Alma Delia positive wound culture. He's also reverted back to using his previous AFO while his newer one is adjusted to try to address the recent significant increase in callus formation that's occurred. His blood sugars also remain well controlled under 150 consistently and his recent episodes of hypoglycemia has resolved with an adjustment of his insulin regimen. 05/14/[address] Nice. The patient reports less drainage on the dressings covering the chronic right 1st MTPJ diabetic ulcer since starting doxycycline for a coag negative Staph wound culture along with fluconazole for the alma delia positive culture. His blood sugars remain well controlled below 120 and his insulin has been decreased due to the recent episodes of hypoglycemia. His diuretic has also been decreased as he's lost considerable water weight over the past month. 05/07/[address] Nice. The patient continues to report modest bloody drainage on the dressing covering the chronic right 1st MTPJ diabetic ulcer and he continues to limit his walking but has not been using a knee scooter or walker around the house to facilitate offloading. His blood sugars remain well controlled mostly below 150. 04/30/[address] Nice. The patient continues to report bloody drainage on his right foot diabetic ulcer dressing and he's feeling a bit unwell in general without reporting specific symptoms. He also continues to have intermittent low blood sugars in the 50-60' s and has not discussed this issue with his PCP recently. He's wearing his AFO daily but admits to having difficulty using his walker at all times due to limited space in his new apartment. 04/27/15 Seen by Jean-Pierre Pinto PA-C. The patient reports nonspecific malaise for the past few days. Last night, he reports feeling to tired, weak and shaky to watch TV and went to bed very early. His malaise has been increasing over the past 1-2 weeks and he has frequently been monitoring his blood sugar. His blood sugars are lower than normal lately but never below 100. He has been reducing his insulin dosing in the past 2 weeks to compensate for the lower numbers. He continues to loose weight while continuing to take Lasix and metolazone. 04/23/[address] Nice. The staff and patient continue to report at least moderate serosanquinous drainage from the chronic right 1st MTPJ diabetic ulcer. His blood sugars have been well controlled over the past week with most below 150. He does report being more active than usual while he's been moving to his new home and he also states he continues to loose weight following a recent increase in his diruetics. His wound culture from the last visit reported heavy Diptheroids and he's not currently on antibiotics. 04/20/15 Seen by Jean-Pierre Pinto PA-C. The patient reports that he has moved house and has been on his feet much more so as a consequence. He reports increased drainage from his right plantar foot diabetic ulcer. In addition he believes he struck it against a hard surface when moving. He has had no significant pain with weightbearing but is insensate in this area. 04/15/[address] Nice. The patient reports continued weight loss, and decreasing leg swelling, since starting metolazone totaling about 20 lbs. He also feels the chronic right 1st MTPJ diabetic ulcer has been draining increasing amounts of sanguinous fluid. His blood sugars remain well controlled with most below 120 and he does not report fever or feeling unwell. 03/25/[address] Nice. The patient states he walked a considerable amount yesterday and now reports some bleeding from the chronic right 1st MTPJ diabetic foot ulcer. He also continues to report increased weight gain and now some shortness of breath when walking short distances. He has a low grade fever today but does not report a cough or feeling unwell otherwise. 03/11/2015 Seen by Jean-Pierre Pinto PA-C. The patient's weight has increased 10 lbs in the past week. He reports increased shortness of breath with exertion. He denies chest pain, jaw, neck, shoulder pain or shortness of breath at rest. He has been compliant with his diuretics. His ulcer drainage has been stable. 03/04/2015 Seen by Jean-Pierre Pinto PA-C. The patient is wearing his newly adjusted AFO and reports an increase in walking since last visit. He was unaware that his temperature was elevated and reports no URI symptoms such as cough or sore throat. 02/24/2015 Seen by Jean-Pierre Pinto PA-C. The patient believes his ulcer has now been draining more despite trying to offload the ulcer. 02/11/[address] Nice. The patient reports less drainage from the chronic right 1st toe diabetic ulcer and he's still waiting for approval for his new AFO. 02/04/[address] Nice. The patient feels the drainage from the right 1st MTPJ ulcer has decreased since last week and he's scheduled to see Dr. Solitario tomorrow to review his foot deformity and recurrent callus formation at the site of the ulcer. 01/30/[address] Nice. The patient returns to clinic and reports recurrence of the recently healed right 1st MTPJ diabetic foot ulcer with new moderate drainage and significant callus formation. He's not yet re-established with Dr. Solitario, podiatry, due to insurance issues and is awaiting approval for an adjustment for his AFO. His blood sugars remain controlled below 150 mostly and he does not report pain in the foot or fevers. 01/12/[address] Nice. The patient does not report drainage from the right 1st toe MTPJ ulcer and he's scheduled to have his new AFO fitted this week. 01/05/[address] Nice. The patient does not report drainage associated with the right 1st MTPJ diabetic foot ulcer however he states he has had some intermittent, very brief 'shooting' pain at the site of the ulcer the past few days. His blood sugars also remain between 120 and 150 mostly. 12/29/[address] Nice. The patient does not report drainage from the chronic right 1st MTPJ diabetic foot ulcer and he offloads using a walker and surgical shoe at all times except for when he wears a slipper around his small apartment. 12/22/[address] Nice. The patient does not report significant drainage from the right 1st MTPJ diabetic foot ulcer and he states his blood sugars are still in the 150 range with some over 180. 12/10/[address] Nice. The patient does not report significant drainage from the right 1st MTPJ diabetic foot ulcer. 12/04/[address] Nice. The patient does not report any drainage from the chronic right 1st MTPJ diabetic foot ulcer and he's still waiting for insurance approval for a custom, articulating AFO. His blood sugars also remain relatively well controlled below 150 consistently. He also continues to apply Kerasal to the associated callus daily. 11/20/[address] Nice. The patient's been feeling unwell the past week and feels he may have lost as much as 10 lbs due to poor oral intake. Otherwise he does not report any new problems regarding his right 1st MTPJ plantar diabetic ulcer. 11/07/[address] Nice. The patient reports only scant drainage from the right plantar diabetic foot ulcer. He's been offloading as recommending with a walker and is awaiting a approval for an articulating AFO. His blood sugars remain mostly well controlled below 150. 10/31/14 Seen by Jean-Pierre Pinto PA-C. The patient feels he has reached another plateau with regard to his wound healing. His right plantar diabetic ulcer continues to drain and has not improved recently. He is wearing his brace and reports compliance with offloading. 10/21/[address] Nice. The patient reports only scant drainage from his right 1st plantar surface MTPJ diabetic foot ulcer. He continues to offload with a frame walker and his blood sugars are moderately well controlled with most below 150. 10/14/[address] Nice. The patient does not report significant drainage from the right 1st plantar MTPJ ulcer. Of note, when discussing his blood sugars he mentions he's on both 70/30 insulin as well as Lantus and he frequently has blood sugars in the 150-200 range. 10/07/[address] Nice. The patient reports some modest drainage from the right 1st MTPJ plantar ulcer but no pain, erythema, or swelling. His blood sugars are mostly below 150 and he offloads with his AFO. 09/30/14 Seen by Jean-Pierre Pinto PA-C. The patient reports continued compliance with his AFO and he is trying to offload. He is scheduled now with PT for gait training and knee strengthening. He reports his knee is still sore at times and he feels unstable at times when using his offloading devices and AFO. 09/23/[address] Nice. The patient reports only minimal drainage from the right plantar 1st MTPJ ulcer. 09/16/14 Seen by Jean-Pierre Pinto PA-C. The patient continues to use his AFO, offloading shoe, knee scooter and frame walker to offload his wound. 09/09/14 Seen by Jean-Pierre Pinto PA-C. The patient has been wearing his AFO and offloading shoe together, with the added padding as designed by Sahra BOYD of [employer]. He reports that he feels unsteady and that his knee has felt strained and he discontinued using the brace as he is concerned that he has, or will, re-injure his right knee. He also is having difficulty using his knee scooter with the brace. One year ago , while attempting to offload his foot he did injure his knee and required physical therapy to recover. 08/19/14 Seen by Jean-Pierre Pinto PA-C. The patient's weight is down 10 lbs from his previous visit. His twice daily naproxen has been discontinued by his PCP in an effort to reduce his lower extremity edema. 08/15/14 Seen by Jean-Pierre Pinto PA-C. The patient continues to have weight fluctuations and large amounts of weight gain in short periods of time despite increased diuretic usage. 08/04/14 Seen by Jean-Pierre Pinto PA-C. The patient has been taking his Levaquin and again reports to the clinic with a low grade fever. He reports nearly daily application of Kerasal and his weight and edema have been stable on a higher dose of diuretics. Blood sugars remain stable on his current diabetic medications. 07/21/14 Seen by Jean-Pierre Pinto PA-C. The patient does not report fever, chills or URI symptoms. His wound drainage has been stable. 07/16/[address] Nice. The patient reports persistent but minimal drainage from the right foot plantar ulcer and continues to offload with a walker at all times. His blood sugar are mostly below 150 with a few around 170 the past few days. 07/01/14 The patient reports that he has gained 8lbs in 8 days. Denies SOB. Does not report fever or chills. 06/23/[address] Nice. The patient continues to offload with a knee scooter and walker at all times. He does not report significant drainage from the right plantar foot ulcer. 06/20/[address] Nice. The patient has been offloading his right foot ulcer with a walker and reports less drainage over the past 2 days. He's now off of antibiotics and his blood sugars remain well controlled below 150. 06/11/[address] Nice. The patient reports persistent drainage from the right foot plantar 1st MTPJ ulcer and he completed his course of doxycycline which was started for a MRSA positive culture from the ulcer site. His blood sugars have also been a bit elevated above 150 recently. He does not report fever or chills however. 06/04/14 The patient reports difficulty in offloading his wound due to inability to use crutches due to poor balance. He find the wheelchair difficult to use and his knee scooter is not rated for his weight. He denies fever, chills or URI symptoms. 05/28/14 The patient's been attempting to offload with a knee scooter but is concerned it may not be appropriate or stable based on his weight. He does not report increased drainage from he right plantar 1st MTPJ ulcer and his blood sugars remain well controlled below 120. 05/21/14 The patient reports only minimal sanguinous drainage from his right foot plantar ulcer and has been offloading it by minimizing his walking. He's also completed a course of doxycycline that was given for a coag negative staph wound culture from the ulcer. He states his blood sugars are consistently below 120 and does not report hypoglycemia. 05/13/14 The patient reports minimal drainage from his right foot plantar ulcer. His recent wound culture from the site returned coag negative Staph and Diptheroids. 05/02/14 The patient reports less drainage from the right plantar foot ulcer and continues to off loading by minimizing walking and wearing a post-op shoe. 04/29/14 The patient continues to wear his surgical boot with the cutout for his right foot plantar diabetic ulcer. He reports no increase in drainage. 04/25/14 The patient reports minimal bloody drainage on the right foot plantar ulcer dressing that was placed yesterday. He does not report any drainage from the previously healed lateral foot ulcer. His edema in the right leg persists despite wearing compression stockings daily and his blood sugars remain well controlled below 120 with his last A1c approx 2 months ago at 7.4. 04/22/14 The patient reports no increase in drainage from his wounds today. He has been faithfully wearing his orthopedic boot with the cut-out area around his 5th MT ulcer. 04/15/14 The patient reports no increase in drainage from his wounds today. He reminds me that a TCC was the cause of his 5th MT ulcer and he is not excited about trying a TCC again. He is interested in HBOT if it will be beneficial to his wounds. 04/09/14 The patient reports increased drainage from his right 5th MT ulcer and feels his surgical boot he's been wearing for off loading may have caused pressure to the area. His blood sugars have improved and he also reports a 5 lb weight loss after doubling his dose of lasix over the past week. Of note, he did not liaise with his PCP prior to doing this. 04/04/14 The patient states that he was walking a bit more than usual yesterday but notes some sanguinous drainage on his plantar 1st MTPJ dressing for the past few days. He's also put on 7 lbs in the past week and feels his legs are more swollen than usual. He does not report chest pain, shortness of breath, or orthopnea. His blood sugars are also up a bit around 180. He's compliant with both his diabetes regimen and his diuretic therapy. 03/28/14 The patient reports no increased drainage or other complications from his right foot diabetic ulcers. 03/21/14 The patient reports minimal drainage from his right foot diabetic ulcers. He continues to minimally weight bear using a surgical boot and a walker. 03/14/14 The patient does not report increased drainage or other new issues regarding his right 5th MTPJ and right 1st MTPJ plantar ulcers. His blood sugars remain more elevated than usual with some between 150 and 180. 03/07/14 The patient reports no fever or increased right foot wound pain or drainage. 02/28/14 The patient reports that his blood sugar this morning is a bit elevated around 160 but has mostly been below 140 over the past few days. He's been off antibiotics for 3 days now and reports modest drainage from the right 5th MT ulcer while dressing changes are being done every two days. 02/24/14 The patient does not report any new issues regarding his right foot ulcers including increased drainage, fever, or chills. He completed his course of doxycycline yesterday. 02/17/14 The patient reports moderate yellow drainage from the right foot 5th MTPJ ulcer. He's completed a course of doxycycline and does not report fever or chills but states his blood sugars remain higher then normal in the 170's. His wound culture was positive for Enterobacter and his ESR was elevated at 41 and CRP at 2.7. 02/06/14 The patient does not report increased drainage from the right 5th MTPJ ulcer nor does he report fever or pain. He continues to off load with a walker and minimizing walking. He continues on doxycycline which was started empirically at his last visit and his culture has since grown Enterobacter which should be susceptible to doxy based on sensitivities. His xray of the foot was not concerning for osteomyelitis however his ESR and CRP are both moderately elevated. He also feels his legs are more swollen than usual and he continues to take his lasix as scheduled. 02/03/14 The patient does not report fever, chills, or pain in the right foot however when the TCC was removed today he's noted to have a sizable increase in the diameter and depth of what was a small 5th MTPJ ulcer. 01/14/14 The patient reports no new problems regarding is right diabetic foot ulcer. 12/31/13 The patient reports minimal serous drainage from his right 5th MTPJ ulcer and states he continues to off load his foot as much as possible. He does not report pain or drainage from the site of his right 1st MTPJ ulcer. 12/19/13 The patient tolerated with TCC without any complaints but there appears to be a small area of erythema over the right 5th MTPJ. He notes his blood sugars are typically below 120 and his A1c last week was 7.4. 12/13/13 The patient has no complaints regarding his TCC nor his plantar ulcer. 12/11/13 The patient returns for placement of a TCC today. He does not report any new problems regarding is plantar ulcer. 12/03/13 The patient states his plantar ulcer drainage is stable and he's continued to not use a cut-out foam doughnut over the ulcer. 11/26/13 The patient has kept the foam dressing in place from the last visit and has not used a cut-out foam dressing which we felt caused some deterioration of the foot ulcer. He has some mild drainage but no pain. 11/22/13 The patient returns for review of his plantar ulcer and callus that seems to be deteriorating despite an adjustment to his boot and off loading measures. The patient reports his callus accumulation is in spite of daily kerasal applications. Patient reports a new small wound on the left second toe. Josue states that it might be related to the brace. Patient had brace modified to help off load. 11/06/13 Josue states he was able to schedule with the prosthetic doctor tomorrow at noon. He reports no new problems or concerns. He also says that he is done with physical therapy since yesterday as insurance will not cover it any longer. 10/31/13 The patient reports he received his dressing supplies. Dressings changes are going well and no new problems are reported. He saw his cold roller, Dr. Solitario, on Monday for a check up and had and x-ray of the foot. 10/24/13 Josue reports he has been staying off of his feet as much as possible. He has been changing the dressing as ordered and states there has been just a small amount of drainage. He recently ran out of his dressings and will need more ordered or the balance sent home with him. 10/17/13 Patient states he has no new problems or concerns. He did have a small increase in drainage the other day but he had walked more than normal the day before. 10/09/13 Josue states he has no new issues. Dressing changes are going well. 10/02/13 Josue states there have been no new issues with dressing changes. They have been changed once since his last visit. No complaints of pain with the wound. 09/20/13 Josue was discharged from wound care September 05. States that he has been using pumice stone on callus area where had previous wound and may have been too aggressive. Also has been on feet more and having increase in lower extremity edema. Continues to wear the tetragrip F he had received in the clinic 6 hours per day but has not ordered any yet. 09/27/13 Patient states that there have been no issues with using the tetra distributing clerk. Asking about getting compression stockings from drug store for continued use. 09/05/13 Patient states he has set up physical therapy for the problems with his knee. He starts these treatments on 09/11. There has been no new issues with his wound and he changes the dressings about every two days. He reports little to no drainage. 08/06/13 States no new problems with wound area. Been using kerosol daily. 08/19/13 Patient states he twisted his knee a week ago, and it is effecting his walk slightly. He also complains of more edema in his legs, and has an appointment with his PCP tomorrow regarding the issue. No new problems or concerns with his wound. No new problems or concerns. Patient states he changed the dressing a few times this last week. Saw Dr. Solitario this past week for check up with no change o his management. 07/26/13 The patient has had new brace for one week and so far it is working out well. No other complaints at this time. 07/18/13 Patient got brace for foot and leg yesterday. No problems or concerns. 07/11/13 No problems or concerns. Changed dressing twice since last visit 07/04/13- Pt went to his PCP and his lasix were increased from 20mg to 40mg. He states his edema has decreased since then. Pt's diabetic foot brace (decreases lateral movement to reduce pressure on the sides of his feet) will arrive in about another week. 06/20/13- Pt reports increased edema in his feet for the last week, he has been walking more, but also sitting with his feet down more. With the increase in exercise he states his back has been hurting. On Sunday 06/18 pt went to [facility],and had his ankle brace fitting. 05/31/[address] Green this am. Changed dressing twice this week. Saw restaurant supervisor (in [place]) on Monday. Considering ankle brace 05/24/13 states started walking program at 5 minutes at a time and taking the bus to clinic apt. 11/08/12 Pt is changing dressing every two days. Is concerned about the edema to the left leg that had the cellulitis. States it is warm. 11/15/12 patient has been having more nerve pain. He has been changing his dressing either every day or every other day. 11/22/12- Patient continues to change dressing about every day. No problems noted. Patient changing dressing about q o day. Thinks wound is less deep. 12/07/12 Pt only changed dressing twice since last visit. No concerns or problems. 12/18/12 When cleaning wound was able to aspirate large purlent sero-sang fluid from site. Pt states he feels it was doing better. 12/24/12 Decreased drainage and pt states he feels the wound is doing well. 12/31 Pt states he has had decreased draiange from wound. Pt denies pain. 01/07/13Pt states the kerasol didn't really do much, but admits he was only applying it every other day and is not sure what his expectations should be. He believes he may have bumped a toe on the left foot and has been concerned about some bruising there but admits it is getting better. Still does not have his new shoes and says he is exploring other options like disability. 01/21/13 feeling well since last visit. feels he may have bumped third toe so wants it to be seen. Level 2- 3 neuropathic pain in right foot 02/27/12 Patient changing bandaid on foot and applying kerasol every three days. Patient got new PCP and saw him yesterday. Patient states things are going well with the wound. 03/12/[address] Green for edema and will see him tomorrow for follow up.03/25/13 states has drainage from bottom of foot. concerned about new wounds Sates he changes dressing every 2 days. Changed this AM as it came off. Using Ca alginate and foam. States no drainage last night 04/19/13 changes dressing every 2-3 days. no problem. Has appt with Dr. Solitario 04/30/13 and new shoes have arrived. To be fitted next week 04/26/13 Is wearing new shoes and states they are working well.Changed dressing twice this week 05.03.[address] Solitario last week. will see again in [address] Green started antibiotic for sinus infection States sinuses not a lot better. Has started Lakshmi D, helping some. States wound about same. Changing dressing 2 x this week as dressing came off. States added collagen one time. Past Medical History This information was obtained from the patient Patient has a medical history of: Left lower extremity cellulitis - 10/15/2012 Diabetic foot ulcer - 09/27/2013 (Hernandez grade 2; right plantar surface; Hernandez grade III (Enterobacter positive wound culture 02/03/14), lateral right 5th MTPJ originally dx 12/24/13; MRSA positive culture 06/04/14 ) Chronic venous hypertension Type II Diabetes Hypertension Morbid Obesity Kidney Stones Hx MRSA Diabetic neuropathy Hallux valgus (right 1st toe) UTI (hospital admit) Cellulitis of legs (June and September 2012- hospital admit) Cataract surgery (10/13/15) Diabetic Neuropathy Complaints and Symptoms This information was obtained from the patient Patient complains of: General Notes: I have reviewed and concur with the Review of Systems and Past Family Social History documents completed by the clinician, I have reviewed and concur with the Wound Assessment document completed by the clinician Cardiovascular (Central/Peripheral): Lower extremity (leg) swelling Integumentary (Hair/Skin/Nails): Open Sore Musculoskeletal: Deformities, Muscle Weakness Neurological: Abnormal Gait, Loss of Protective Sensation, Tremors Prior Wound History: Bleeding, Drainage Patient denies complaints or symptoms related to: Cardiovascular (Central): Irregular heart beat Cardiovascular (Central/Peripheral): Lower extremity (leg) resting pain Constitutional Symptoms (General Health): Chills, Fever, Marked Weight Change Ear/Nose/Mouth/Throat: Hearing Loss / Aid Gastrointestinal (GI): Nausea / Vomiting Hematologic/Lymphatic: Bleeding / Clotting Disorders, Bleeding Tendency Musculoskeletal: Assistive Devices Prior Wound History: Erythema, Malodor, Pain Psychiatric: Memory Loss Respiratory: Oxygen Use, Shortness of Breath OBJECTIVE Constitutional Vital signs reviewed and noted. Well developed. Alert. Clean appearing.. Height/ Length: 71 in (180.34 cm), Weight: 361 lbs (164.09 kgs), BMI: 50.3, Temperature: 98.1 ?F ( 36.72 ?C), Pulse: 78 bpm, Respiratory Rate: 18 breaths/min, Blood Pressure: 128/58 mmHg, Capillary Blood Glucose: 146 mg/dl, Pulse Oximetry: 96 %. Cardiovascular: 1+ right lower extremity edema. Gastrointestinal (GI): Obese. Nondistended.. Integumentary (Hair, Skin) No periwound erythema, warmth, or significant drainage. No periwound rashes appreciated or noted otherwise.. Refer to appropriate clinician wound documentation for this visit; right foot ulcer extends to subcut with base partially covered with pink granulation, remainder fibrin and slough. Significant amount of callus in the periulcer area. Wound #6 Right, Plantar Foot is a chronic Hernandez Grade 2 Diabetic Ulcer and has received a status of Not Healed. Subsequent wound encounter measurements are 0.4cm length x 0.5cm width x 0.2cm depth, with an area of 0.2 sq cm and a volume of 0.04 cubic cm. No tunneling has been noted. No sinus tract has been noted. No undermining has been noted. There is a small amount of serosanguineous drainage noted which has no odor. The patient reports a wound pain of level 0/10. The wound margin is callus. Wound bed has No epithelialization, No eschar, No slough, Yes pink, firm granulation. The periwound skin color is normal. The periwound skin exhibited: Callus, Moist. The periwound skin did not exhibit: Brawny Induration, Edema, Excoriation, Induration, Crepitus, Fluctuance, Friable, Rash, Dry/Scaly, Maceration. The temperature of the periwound skin is WNL. Periwound skin does not exhibit signs or symptoms of infection. Local Pulse is Palpable. Neurological: Cranial nerves grossly intact with symmetric function normal by informal observation.. 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 A skin/ subcutaneous tissue level surgical debridement with a total area debrided of 0.2 sq cm was performed by Stephen Nice MD. Subcutaneous was removed along with devitalized tissue: callus and slough. The following instrument(s) were used: curette. Pain control was achieved using 4% Lido. A time out was conducted prior to the start of the procedure. A minimal amount of bleeding was controlled with n/a. The procedure was tolerated well with a pain level of 0 throughout and a pain level of 0 following the procedure. Post Debridement Measurements: 0.4cm length x 0.5cm width x 0.3cm depth; with an area of 0.2 sq cm and a volume of 0.06 cubic cm; Additional Information Muscle fascia or bone removed and sent to pathology?: No PLAN Wound Orders: Wound #6 Right, Plantar Foot Anesthetic Topical Xylocaine to wound bed. - In clinic only. Cleanser Cleanse Wound: - Normal saline and gauze. May Shower. - Do not get wound wet with tap water. Use cast protector when showering. Topical Treatments Antibiotic/Antimicrobial Ointment/Cream. - Iodosorb to wound base. Dressings Cover and secure with: - Foam and hypafix tape. Change Dressing: - Every other day. Additional Orders: Off-Loading Keep weight off: - Right foot as much as possible. Use Knee scooter when able. Use/Wear when Walking: - Offloading shoe. Compression/Edema Control Elevation of leg(s) above the level of the heart when sitting. Avoid prolonged standing in one place. - Please avoid standing or walking for long periods of time. Knee-high gradient compression stockings. - Tetragrip F stockings to both legs. On in the morning and off at night. Follow-Up Appointments Return Appointment: - - One week Other information: If you develop fever, chills, increased pain, drainage, redness or swelling please call our office. If after hours, respond to the ER. Should you experience any significant changes in your wound(s) or have any questions regarding your home care instructions please contact the wound center @ [phone]. If after hours, contact your primary care physician or go to the hospital emergency room. Scribing Attestation I attest, as the nurse, that I scribed these orders for the physician. I've reviewed the clinician's documentation and agree with the evaluation and plan as written. In addition, the patient's ulcer demonstrates evidence of non-viable devitalized tissue which will continue to benefit from sharp debridement to help promote granulation and expedite healing. Electronic Signature(s) Signed By: Date: Stephen Nice MD 11/01/2017 08:39:26 Entered By: Stephen Nice on 11/01/2017 07:38:03
== END ==
PROVIDERS: PCP Family Medicine; Visit Provider Internal Medicine
DX: E11.621 Type 2 diabetes mellitus with foot ulcer (principal); L97.512 Non-pressure chronic ulcer of other part of right foot with fat layer exposed
CPT/HCPCS: 11042

== ENCOUNTER → 2017-11-07 09:28 | Outpatient (CLI) | payer MEDICARE, OTHER, SELFPAY ==
--- NOTE | 2017-11-07 | OV.WND_ITS ---
Progress Note Details Patient Name: Josue Mesa Patient Number: [id number] PatientPatientDate: 11/07/2017 Clinician: Fay Moncada Clinician Cosigner: Estephanie Grant Physician / Gas Line Servicer: Stephen Nice SUBJECTIVE Chief Complaint This information was obtained from the patient Diabetic ulcer to right plantar foot. Allergies Augmentin (Severity: Mild, Reaction: nausea) HPI This information was obtained from the patient 11/07/17. Seen by Dr. Nice. The patient does not report increased drainage associated with the chronic right 1st MTPJ diabetic ulcer since his last visit. 10/31/17. Seen by Dr. Nice. The patient does not report increased drainage associated with the chronic right 1st MTPJ diabetic ulcer since his last visit. 10/27/17. Seen by Dr. Nice. 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 10/24/17. Seen by Dr. Nice. The patient does not report increased drainage associated with the chronic right 1st MTPJ diabetic ulcer since his last visit. 10/20/17. Seen by Dr. Nice. The patient does not report increased drainage associated with the chronic right 1st MTPJ diabetic ulcer since his last visit. 10/17/17. Seen by Dr. Nice. The patient does not report increased drainage associated with the chronic right 1st MTPJ diabetic ulcer since his last visit. He continues to wear his offloading shoe as recommended which has been modified to add a layer of foam that's had a recess cut out at the site of the ulcer. 10/13/17. Seen by Dr. Nice. The patient does not report increased drainage associated with the chronic right 1st MTPJ diabetic ulcer since his last visit. 10/10/17. Seen by Dr. Nice. The patient does not report increased drainage associated with the chronic right 1st MTPJ diabetic ulcer since his last visit. 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 10/03/17. Seen by Dr. Nice. The patient does not report increased drainage associated with the chronic right 1st MTPJ diabetic ulcer since his last visit which was 10 days ago. 09/22/17. Seen by Dr. Nice. The patient's xray of his right foot showed a 1st MTPJ intra- articular fracture and he was seen by Dr. Solitario who recommended continued offloading with the forefoot surgical offloading shoe but no further intervention at this time. He does not report pain in the foot nor significant drainage associated with the plantar 1st MTPJ diabetic foot ulcer since his last visit. 09/19/17. Seen by Dr. Nice. The patient reportedly fell on Monday injuring his right foot. He was seen by his PCP yesterday who felt it may have been infected and he was started on Keflex. He does not report pain in the foot and is able to bear weight as usual. He also does not report increased drainage associated with the chronic right 1st MTPJ diabetic ulcer since his last visit. 09/15/17. Seen by Dr. Nice. The patient arrived today feeling quite week and shaky and states he was seen in the ER earlier this morning for similar complaints and subsequently discharged to his [facility]. His CT scan and labs were unremarkable however he was unable to leave a urine sample for analysis at that time. His symptoms persist during our visit however there's no confusion or other acute complaints. He's also finished his course of Bactrim that was treating the recent right diabetic foot ulcer infection and he does not report increased drainage for pain at the ulcer site. 09/12/17. Seen by Dr. Nice. The patient does not report increased drainage associated with the chronic right 1st MTPJ diabetic ulcer since his last visit. He also continues on doxycycline for the recent Staph cultured from the ulcer and he does not report adverse side effects. 09/08/17. Seen by Dr. Nice. The patient's now on doxycycline for the recent coag negative Staph culture taken from the chronic right 1st MTPJ diabetic ulcer. He does not report adverse side effects nor increased drainage or pain associated with the ulcer. 09/05/17. Seen by Dr. Nice. The patient does not report increased drainage associated with the chronic right 1st MTPJ nor right 1st toe dorsal diabetic ulcers since his last visit however the nurse reports increased bloody drainage on the dressing and increased maceration and callus along the distal margin of the ulcer. His recent wound culture grew coag negative Staph and he's not currently on antibiotics. 09/01/17. Seen by Dr. Nice. The patient does not report increased drainage associated with the chronic right 1st MTPJ nor right 1st toe dorsal diabetic ulcers since his last visit. 08/29/17. Seen by Dr. Nice. The patient does not report increased drainage associated with the chronic right 1st MTPJ diabetic ulcer since his last visit. He does complain of progressive upper extremity tremors that are most noticeable in the morning and evening and may occur after he takes his metformin. He does not report low blood sugars and he'll bee seeing his PCP today to discuss this. 08/25/17. Seen by Dr. Nice. The patient reports being more active and on a boat over the holiday which was no conducive to using his knee scooter. He feels the right 1st MTPJ ulcer has deteriorated and he has a new ulcer over the dorsum of the right 1st toe now. 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 08/22/17. Seen by Dr. Nice. The patient was seen at [facility] and they provided a new orthotic insert to help better offload the chronic right 1st MTPJ diabetic ulcer while he's wearing his surgical, forefoot offloading show. He does not report increased drainage or pain associated with the ulcer and is using a knee scooter also to help offload. He has a severe valgus deformity which results in heavy callus formation and has required twice weekly debridements which has been effective in gradually promoting the ulcer to heal. He's also been applying topical gentamicin to the ulcer base to treat the recent coag negative Staph culture that was taken due to increased drainage. 08/18/17. Seen by Dr. Nice. The patient's wound culture taken from the chronic right foot diabetic ulcer at his last visit grew an intermediately resistant coag negative Staph and his dressing change and application of gentamicin is taking place only every 2-3 days. He does not report pain in the foot but staff report his dressing as being 'bloody' today. 08/15/17. Seen by Dr. Nice. The patient reports what may be increased drainage on his right foot diabetic ulcer dressings as mentioned by his acute care surgeon in assisted living. He's using a knee scooter as recommended and does not report pain in the foot. He's also asking when it will be appropriate to have his right foot orthotic adjusted in his diabetic shoe although he's currently wearing a forefoot offloading shoe at all times. 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 08/11/17. Seen by Jean-Pierre Pinto PA-C. The patient reports stable drainage from his right foot diabetic ulcer. Again his blood sugars have been above 150 since his last visit. 08/08/17. Seen by Jean-Pierre Pinto PA-C. The patient reports no increase in drainage from his right foot diabetic ulcer. His blood sugars this week have reportedly been mostly above 150. 08/04/17. Seen by Dr. Nice. The patient does not report increased drainage associated with the chronic right plantar foot diabetic ulcer since his last visit and he's offloading appropriately as recommended. He also was seen by Dr. Solitario, podiatry, who discussed possible surgical options to address the severe right 1st toe valgus deformity that's complicating the ulcer and contributing to heavy periculcer callus formation however there's no plan of intervention at this time. 08/01/17. Seen by Dr. Nice. The patient does not report increased drainage associated with the chronic right plantar foot diabetic ulcer since his last visit and he's offloading appropriately as recommended. 07/28/17. Seen by Dr. Nice. The patient does not report increased drainage associated with the chronic right plantar foot diabetic ulcer since his last visit and he's offloading appropriately as recommended. We've increased his visits to twice weekly due to the very heavy callus formation that's contributing to the refractory nature of the ulcer. 07/25/17. Seen by Dr. Nice. The patient does not report increased drainage associated with the chronic right plantar foot diabetic ulcer since his last visit and he's offloading appropriately as recommended. Kerasal is not being applied to the periulcer callus and his visits have been decreased to once weekly over the past few weeks while the ulcer has been improving. 07/18/17. Seen by Dr. Nice. The patient does not report increased drainage associated with the chronic right plantar foot diabetic ulcer since his last visit and he's offloading appropriately as recommended. 07/11/17.Seen by Dr. Nice. The patient has been wearing his offloading shoe and using a knee scooter as recommended and does not report significant drainage associated with the chronic right plantar foot diabetic ulcer since his last visit. 07/04/17. Seen by Dr. Nice. The patient has been wearing his offloading shoe as recommended and does not report significant drainage associated with the chronic right plantar foot diabetic ulcer since his last visit. 06/30/17. Seen by Dr. Nice. The patient has been wearing his offloading shoe as recommended and does not report significant drainage associated with the chronic right plantar foot diabetic ulcer since his last visit. 06/27/2017. Seen by Dr. Nice. The patient has been wearing his offloading shoe as recommended and does not report significant drainage associated with the chronic right plantar foot diabetic ulcer since his last visit. His blood sugars are also mostly below 100 now and he's using his knee scooter as well to further optimize offloading. 06/23/2017. Seen by Dr. Nice. The patient does not report pain nor increased drainage associated with the chronic right plantar foot diabetic ulcer since his last visit. He is wearing his offloading shoe as recommended now and his blood sugar control has improved with some below 200. 06/20/2017. Some by Dr. Nice. The patient is not report increased drainage position with chronic right plantar foot diabetic ulcer since last visit. He is now clindamycin for the resistant Staphylococcus haemolyticus positive culture that was taken to the last visit. His blood sugars continued to be elevated and or over 300 earlier this morning despite having his Lantus dose increased recently. He is also wearing his diabetic shoes but not an offloading surgical shoe as I have been recommending. 06/16/17. Seen by Dr. Nice. The patient does not report increased drainage associated with chronic right plantar foot diabetic ulcers since his last visit. His recent wound culture grew a resistant coag negative staph organism. He also met with his primary care provider, Dr. Green, to increase his dosing of Lantus and plans to work with him on dietary measures to help gain better control of his elevated blood sugars. 06/13/17. Seen by Dr. Nice. The patient's blood sugars again are over 300 today and his appointment with his primary care provider to address this. He does not report any acute changes regarding the chronic right plantar foot diabetic ulcer and is using his knee scooter to help facilitate offloading as much as possible. 06/09/17. Seen by Dr. Nice. The patient does not report significant drainage associated with the chronic right plantar foot diabetic ulcer since his last visit. 06/06/17. Seen by Dr. Nice. The patient does not report significant drainage associated with the chronic right plantar foot diabetic ulcer since his last visit and he's lost another 7 lbs since increasing his dose of Lasix due to abnormal weight gain and significant bilateral lower extremity edema. 06/02/17. Seen by Dr. Nice. The patient does not report significant drainage associated with the chronic right plantar foot diabetic ulcer since his last visit. His increase his dose of Lasix and has lost 7 pounds over the past 3 days. This is been done due to the significant increase in leg swelling over the past 2 weeks. 05/30/17. Seen by Dr. Nice. The patient does not report increased drainage associated with chronic right plantar foot diabetic ulcer since his last visit however he does feel that the right foot and leg are swelling considerably over the past few days. We note a 4 pound weight gain since his last visit on Monday and he states is taking his diuretic as prescribed. 05/26/17. Seen by Dr. Nice. The patient does not report increased drainage associated with chronic right plantar foot diabetic ulcers since his last visit. His culture grew a somewhat resistant coag negative staph and he is not currently on antibiotics. 05/23/17. Seen by Dr. Nice. Staff reports some increased drainage on his dressings covering the chronic right plantar foot diabetic ulcer today. His blood sugar is again over 300 and he states he is eating rice and potatoes trying to cut back. He continues offload with his knee scooter as recommended and does not report pain or any other acute ulcer related issues today. 05/19/17. Seen by Dr. Nice. The patient does not report increased pain or drainage associated with chronic right plantar foot diabetic ulcer since his last visit. He is using his knee scooter as recommended and has had significant problems with heavy callus at the site due to a severe right first toe valgus deformity. He is now attending clinic twice weekly for debridement of the ulcer and complicating callous. 05/16/17. Seen by Dr. Nice. The patient does not report increased drainage or pain associated with chronic right plantar foot diabetic ulcer since his last visit. Of note, the patient's blood sugar as 271 today and his A1c was 9.8 in March. 05/12/17. Seen by Dr. Nice. The patient does not report increased pain or drainage associated with chronic right plantar foot diabetic ulcer since his last visit. He is using his knee scooter to help offload the site which is particularly important based on patient's morbid obesity coupled with his severe first MTPJ valgus deformity. 05/09/17. Seen by Dr. Nice. The patient does not report increased drainage or pain associated with the chronic right plantar foot diabetic ulcer since his last visit. He states his blood sugars continue to be above 200 consistently although are improving with compliance to a lower carbohydrate type diet. He was started on metformin about a month ago he complains of some intermittent upper extremity weakness since then and will be discussing this with his primary care provider. He is also awaiting his new diabetic shoes that are being adjusted to help accommodate for his severe right first toe valgus deformity. 05/02/17. Seen by Jean-Pierre Pinto PA-C. The patient reports stable drainage from his right 1st toe ulcer and blood sugars continue to be above goal. 04/25/17. Seen by Jean-Pierre Pinto PA-C. The patient reports his blood sugars have been above 150 this week. He does not report increased drainage from his right 1st toe diabetic ulcer. 04/18/17. Seen by Dr. Nice. The patient does not report increased drainage associated the chronic right first toe diabetic ulcers since his last visit. 04/11/17. Seen by Jean-Pierre Pinto PA-C. The patient reports he is developing more calloused areas on his feet and is concerned about new ulcers occurring. His chronic 1st toe diabetic ulcer has been stable. 04/04/17. Seen by Jean-Pierre Pinto PA-C. The patient reports he has not been able to get his blood sugars below 150. Drainage is reportedly decreased from his diabetic foot ulcer. 03/30/17. Seen by Jean-Pierre Pinto PA-C. The patient reports continued high blood sugars, all above 150. Drainage from his ulcer is not increased. 03/23/17. s Seen by Jean-Pierre Pinto PA-C. The patient reports blood sugars above 150 again this week. He is concerned that something must be going on with an infection as he believes his diet has not changed and thus his sugars should be lower. His wound has had stable drainage. 03/15/17. Seen by Jean-Pierre Pinto PA-C. The patient reports he has had some blood sugars above 150 this week. He reports no increase in drainage from his right 1st toe diabetic ulcer. 03/08/17. Seen by Dr. Nice. The patient was discharged from the hospital recently following treatment for cellulitis associated with the chronic right first toe diabetic ulcer. He grew MRSA from the wound culture and was treated with IV vancomycin and is now on Bactrim. He does not report pain nor significant drainage associated with the ulcer nor side effects from antibiotics. 02/23/17. Seen by Dr. Nice. The patient does not report increased drainage associated the chronic right first toe diabetic ulcers since his last visit. The patient also states that he is more active over the holidays and was unable to use his knee scooter at times while walking outside due to safety concerns. 02/08/17. Seen by Dr. Nice. The patient does not report increased drainage associated the chronic right first toe diabetic ulcers since his last visit. He states he is using his offloading shoe when at home and a knee scooter went out. 02/01/17. Seen by Dr. Nice. The patient does not report increasing pain or drainage associated with chronic right first toe diabetic ulcer since his last visit. 01/25/17. Seen by Dr. Niec. The patient does not report increasing pain or drainage associated with chronic right first toe diabetic ulcer since his last visit. 01/18/17. Seen by Dr. Nice. The patient does not report increasing pain or drainage associated with chronic right first toe diabetic ulcer since his last visit. Of note, the patient's blood sugar is over 260 again today and he admits that it's been significantly elevated for a number of weeks. He has an appointment with his primary care provider to discuss this next week. 01/11/17. Seen by Dr. Nice. The patient does not report increasing pain or drainage associated with chronic right first toe diabetic ulcer since his last visit. He states his blood sugars have been running high recently and he is going to follow-up with his primary care provider in the near future to address this. 01/04/17. Seen by Dr. Nice. The patient does not report increased drainage associated with chronic right first foot diabetic ulcers since his last visit. He's also been applying Kersal to the periulcer as recommended. 12/28/16. Seen by Dr. Nice. The patient does not report increased drainage associated with chronic right first foot diabetic ulcers since his last visit. 12/22/16. Seen by Dr. Nice. The patient does not report increased drainage associated with chronic right first foot diabetic ulcers since his last visit. He's not been applying Kersal to the periulcer callus and does not appear to be using his knee scooter at all times to offload the ulcer. 12/15/16. Seen by Jean-Pierre Pinto PA-C. The patient reports he continues to have blood sugars above 150 this week. He recently saw his PCP, they did not alter his diabetic care plan. His visit was a follow up for an ER visit for chest pain which was negative for SD and was thought to be epigastric in origin. His diabetic ulcer of the right foot has not had increased drainage. 12/06/16. Seen by Jean-Pierre Pinto PA-C. The patient reports that he has found his knee scooter and plans to start using it today. He also reports most of his blood sugars have been above 150. Drainage from his ulcer has been stable. 11/25/16. Seen by Dr. Nice. The patient does not report increased drainage associated with chronic right first foot diabetic ulcers since his last visit. He is now on antibiotics for wound infection and does not report adverse side effects. Of note, he is not yet using a knee scooter nor offloading shoe as we recommended last week. 11/18/16. Seen by Dr. Nice. The patient returns to our clinic and presents with recurrence of a right first MTPJ plantar diabetic ulcer. He states it started a couple weeks ago when he was attempting to remove overlying callus at home. He does not report significant drainage or pain associated with the ulcer and is not currently on antibiotics. He also states his recent A1c was 7.8. His blood sugar in clinic today is 250. 01/11/16 Seen by Jean-Pierre Pinto PA-C. The patient reports no drainage from his chronic right 1st MTPJ joint since his last dressing change. 01/04/16 Seen by Jean-Pierre Pinto PA-C. The patient reports minimal drainage from his chronic right 1st MTPJ ulcer. He has recently seen his PCP and his A1c was 7.7. His lower extremity edema, abnormal weight gain and kidney failure are stable with his diuretics recently being adjusted. 12/28/15. Seen by Dr. Nice. The patient does not report significant drainage associated with the chronic right 1st MTPJ diabetic ulcer since his last visit however he does complain of increasing shortness of breath, fatigue, and an 18lb weight gain over the past week despite taking his diuretics as recommended. He does not report chest pain or cough and his blood sugars remain relatively well controlled with most below 150. 12/16/15. Seen by Dr. Nice. The patient does not report significant drainage associated with the chronic right 1st MTPJ diabetic ulcer since his last visit. He's applying kerasal to the surrounding callus as recommended and offloading nearly at all times using his knee scooter. 12/07/15 Seen by Jean-Pierre Pinto PA-C. The patient reports compliance with his new offloading brace and shoe and has seen minimal drainage from his diabetic foot ulcer since his last visit. 11/30/15. Seen by Dr. Nice. The patient does not report significant drainage associated with the chronic right 1st MTPJ diabetic ulcer since his last visit and he's wearing a combined AFO / diabetic shoe system that he feels may be better offloading the ulcer. 11/23/15 Seen by Jean-Pierre Pinto PA-C. The patient reports that he is wearing his new diabetic shoes and inserts. He is continuing physical therapy for gait training and reports continued difficulty with stairs and occasional bouts of dizziness. He reports stable drainage from his chronic right foot diabetic ulcer. 11/16/15 Seen by Jean-Pierre Pinto PA-C. The patient reports stable drainage from his right foot diabetic ulcer. He also reports that his diabetic shoes and inserts are quite old and worn out. He is ambulating with is 4 wheeled walker and is working with PT for gait training. 11/09/15 Seen by Jean-Pierre Pinto PA-C. The patient reports that he is still using a 4 wheeled walker instead of a 4 footed walker. PT is working with him to improve his gait and balance. Drainage from his right foot ulcer has been stable. 11/02/15 Seen by Jean-Pierre Pinto PA-C. The patient reports no increase in drainage from his chronic diabetic foot ulcer. He has had multiple blood sugars above 150 this week. 10/29/15. Seen by Dr. Nice. The patient was recently discharged from [facility] following treatment of sepsis thought to possibly be related to his chronic right 1st MTPJ diabetic ulcer that grew Enterococcus just prior to his admission. He now feels generally weak , has lost 18 lbs following diuresis, and is residing at home where he's minimizing his weight bearing on the right foot. He does not report significant drainage from the ulcer nor pain and states his blood sugars remain mostly around 150. He also continues on levofloxacin and does not report adverse side effects. 10/14/15. Seen by Dr. Nice. The patient report persistent bloody drainage from the chronic right 1st MTPJ diabetic ulcer and he feels the callus has increased significantly since it was last debrided 2 week ago. He does not report fevers or feeling unwell and states his blood sugars are well controlled with most below 150. He's using his AFO when walking nearly at all times to facilitate offloading the significant right 1st MTPJ valgus deformity. 09/24/15 Seen by Jean-Pierre Pinto PA-C. The patient reports that he is no ran out of lasix due to a mix up at the pharmacy and unavailability of his strength/dose of tablets. He continues trying to offload his ulcer with his wheeled walker and notes stable ulcer drainage. 09/17/15. Seen by Dr. Nice. The patient continues to report some bloody drainage from the chronic right 1st MTPJ diabetic ulcer and he's started reducing his activity and continues to use his knee scooter at home to offload the foot. 09/10/15. Seen by Dr. Nice. The patient states he was more active over the past week and notices increased bloody drainage associated with chronic right first MTPJ diabetic foot ulcer. He continues to wear his AFO and states his blood sugars are mostly below 150. 09/03/15. Seen by Dr. Nice. The patient does not report significant drainage associated with the chronic right first MTPJ diabetic ulcer over the past week. He does feel that the callus smaller than on previous visits and is wearing his AFO at all times. Of note, he 's now in doxycycline to treat the recent coag negative Staph cultured from the ulcer at his last visit. 08/27/[address] Nice. The patient reports increase bloody drainage associated with the chronic right foot 1st MTPJ diabetic ulcer and he feels his activity has increased due to physical therapy and increased mobility over the past week. He does not report pain at the ulcer site, fevers, or feeling unwell in general. 08/20/[address] Nice. The patient does not report significant drainage associated with the chronic right foot 1st MTPJ diabetic ulcer over the past week and he's using a knee scooter as much as possible when mobilizing to offload the foot. His blood sugars also remain relatively well controlled with most below 150. 08/13/[address] Nice. The patient does not report significant drainage associated with the chronic right foot diabetic ulcer over the past week and he's offloading using a knee scooter as recommended. His blood sugars remain relatively well controlled with most below 150. 08/06/[address] Nice. The patient reports recurrence of some drainage from the chronic right foot diabetic ulcer over the past few days and states he's been more active with physical therapy. His blood sugars remain well controlled with most below 150 and he's wearing his AFO when away from the house and using a knee scooter most of the time while at home to facilitate offloading. He's also applying Kerasal to the callus in the periwound area as recommended. 07/23/[address] Nice. The patient does not report drainage from the chronic right 1st MTPJ diabetic ulcer over the past week and he's using his new AFO and knee scooter to offload the foot. 07/16/[address] Nice. The patient does not report pain or drainage from the chronic right 1st MTPJ diabetic ulcer and he's wearing his newer AFO while offloading with a knee scooter most of the time. 07/09/[address] Nice. The patient does not report drainage or pain associated with his chronic right foot 1st MTPJ diabetic ulcer and he's been offloading by using a knee scooter when mobilizing. His radiology services manager is present today as well to discuss possible adjustments to his AFO with the goal of reducing callus formation that's in part caused by his significant right 1st toe valgus deformity. He also states his blood sugars remain well controlled below 150 consistently. 07/03/[address] Nice. The patient does not report significant drainage from the chronic right foot diabetic ulcer and he's offloading by using his knee scooter. His blood sugars also remain relatively well controlled around 150 consistently. 06/26/[address] Nice. The patient report some continued bloody drainage from the chronic right 1st MTPJ diabetic ulcer however he does not report associated pain , fevers or feeling unwell. His blood sugars remain consistently below 150 and he's using his walker and knee scooter for offloading as recommended. He's also been actively working with his radiology services manager in hopes of better offloading the ulcer and address his significant callus formation and left 1st MTPJ valgus deformity. 06/19/[address] Nice. The patient does not report pain associated with his chronic right 1st MTPJ diabetic ulcer however he states some bloody drainage persists on the dressings. He does not report fevers or feeling unwell and states his blood sugars are well controlled below 150 consistently and he's using a knee scooter and walker to offload the ulcer when mobilizing. He also does not report pain or drainage associated with the left 2nd toe wound. 06/11/[address] Nice. The patient was recently discharged from [facility] following a fall at home that resulted in a broken rib. Regarding his chronic right 1st MTPJ diabetic ulcer he does not report significant drainage and has been offloading through bed rest and using a knee scooter while at home. His blood sugars also remain well controlled with most below 150. He also reports a new wound on the dorsum of the left 2nd toe that he believes occurred during his fall. He does not report associated pain or significant drainage. 05/28/[address] Nice. The patient reports some increased bloody drainage from the chronic right 1st MTPJ diabetic foot ulcer over the weekend associated with a new 'soft' area along the distal margin. He's been more active the past the past few days but states he's using his knee scooter to offload at all times. His blood sugars also remain well controlled with most around 120 and he's no longer on antibiotics. He also continues to wear his old AFO but states there was a recent adjustment of a cut out lined with 'soft' plastic in the area of the ulcer. 05/21/[address] Nice. The patient report less drainage from the chronic right foot 1st MTPJ diabetic ulcer over the past week. He's completed his course of doxycycline and he continues on fluconazole for the recent Alma Delia positive wound culture. He's also reverted back to using his previous AFO while his newer one is adjusted to try to address the recent significant increase in callus formation that's occurred. His blood sugars also remain well controlled under 150 consistently and his recent episodes of hypoglycemia has resolved with an adjustment of his insulin regimen. 05/14/[address] Nice. The patient reports less drainage on the dressings covering the chronic right 1st MTPJ diabetic ulcer since starting doxycycline for a coag negative Staph wound culture along with fluconazole for the alma delia positive culture. His blood sugars remain well controlled below 120 and his insulin has been decreased due to the recent episodes of hypoglycemia. His diuretic has also been decreased as he's lost considerable water weight over the past month. 05/07/[address] Nice. The patient continues to report modest bloody drainage on the dressing covering the chronic right 1st MTPJ diabetic ulcer and he continues to limit his walking but has not been using a knee scooter or walker around the house to facilitate offloading. His blood sugars remain well controlled mostly below 150. 04/30/[address] Nice. The patient continues to report bloody drainage on his right foot diabetic ulcer dressing and he's feeling a bit unwell in general without reporting specific symptoms. He also continues to have intermittent low blood sugars in the 50-60' s and has not discussed this issue with his PCP recently. He's wearing his AFO daily but admits to having difficulty using his walker at all times due to limited space in his new apartment. 04/27/15 Seen by Jean-Pierre Pinto PA-C. The patient reports nonspecific malaise for the past few days. Last night, he reports feeling to tired, weak and shaky to watch TV and went to bed very early. His malaise has been increasing over the past 1-2 weeks and he has frequently been monitoring his blood sugar. His blood sugars are lower than normal lately but never below 100. He has been reducing his insulin dosing in the past 2 weeks to compensate for the lower numbers. He continues to loose weight while continuing to take Lasix and metolazone. 04/23/[address] Nice. The staff and patient continue to report at least moderate serosanquinous drainage from the chronic right 1st MTPJ diabetic ulcer. His blood sugars have been well controlled over the past week with most below 150. He does report being more active than usual while he's been moving to his new home and he also states he continues to loose weight following a recent increase in his diruetics. His wound culture from the last visit reported heavy Diptheroids and he's not currently on antibiotics. 04/20/15 Seen by Jean-Pierre Pinto PA-C. The patient reports that he has moved house and has been on his feet much more so as a consequence. He reports increased drainage from his right plantar foot diabetic ulcer. In addition he believes he struck it against a hard surface when moving. He has had no significant pain with weightbearing but is insensate in this area. 04/15/[address] Nice. The patient reports continued weight loss, and decreasing leg swelling, since starting metolazone totaling about 20 lbs. He also feels the chronic right 1st MTPJ diabetic ulcer has been draining increasing amounts of sanguinous fluid. His blood sugars remain well controlled with most below 120 and he does not report fever or feeling unwell. 03/25/[address] Nice. The patient states he walked a considerable amount yesterday and now reports some bleeding from the chronic right 1st MTPJ diabetic foot ulcer. He also continues to report increased weight gain and now some shortness of breath when walking short distances. He has a low grade fever today but does not report a cough or feeling unwell otherwise. 03/11/2015 Seen by Jean-Pierre Pinto PA-C. The patient's weight has increased 10 lbs in the past week. He reports increased shortness of breath with exertion. He denies chest pain, jaw, neck, shoulder pain or shortness of breath at rest. He has been compliant with his diuretics. His ulcer drainage has been stable. 03/04/2015 Seen by Jean-Pierre Pinto PA-C. The patient is wearing his newly adjusted AFO and reports an increase in walking since last visit. He was unaware that his temperature was elevated and reports no URI symptoms such as cough or sore throat. 02/24/2015 Seen by Jean-Pierre Pinto PA-C. The patient believes his ulcer has now been draining more despite trying to offload the ulcer. 12/23/[address] Nice. The patient reports less drainage from the chronic right 1st toe diabetic ulcer and he's still waiting for approval for his new AFO. 02/04/[address] Nice. The patient feels the drainage from the right 1st MTPJ ulcer has decreased since last week and he's scheduled to see Dr. Solitario tomorrow to review his foot deformity and recurrent callus formation at the site of the ulcer. 01/30/[address] iNce. The patient returns to clinic and reports recurrence of the recently healed right 1st MTPJ diabetic foot ulcer with new moderate drainage and significant callus formation. He's not yet re-established with Dr. Solitario, podiatry, due to insurance issues and is awaiting approval for an adjustment for his AFO. His blood sugars remain controlled below 150 mostly and he does not report pain in the foot or fevers. 01/12/[address] Nice. The patient does not report drainage from the right 1st toe MTPJ ulcer and he's scheduled to have his new AFO fitted this week. 01/05/[address] Nice. The patient does not report drainage associated with the right 1st MTPJ diabetic foot ulcer however he states he has had some intermittent, very brief 'shooting' pain at the site of the ulcer the past few days. His blood sugars also remain between 120 and 150 mostly. 12/29/[address] Nice. The patient does not report drainage from the chronic right 1st MTPJ diabetic foot ulcer and he offloads using a walker and surgical shoe at all times except for when he wears a slipper around his small apartment. 12/22/[address] Nice. The patient does not report significant drainage from the right 1st MTPJ diabetic foot ulcer and he states his blood sugars are still in the 150 range with some over 180. 12/10/[address] Nice. The patient does not report significant drainage from the right 1st MTPJ diabetic foot ulcer. 12/04/[address] Nice. The patient does not report any drainage from the chronic right 1st MTPJ diabetic foot ulcer and he's still waiting for insurance approval for a custom, articulating AFO. His blood sugars also remain relatively well controlled below 150 consistently. He also continues to apply Kerasal to the associated callus daily. 11/20/[address] Nice. The patient's been feeling unwell the past week and feels he may have lost as much as 10 lbs due to poor oral intake. Otherwise he does not report any new problems regarding his right 1st MTPJ plantar diabetic ulcer. 11/07/[address] Nice. The patient reports only scant drainage from the right plantar diabetic foot ulcer. He's been offloading as recommending with a walker and is awaiting a approval for an articulating AFO. His blood sugars remain mostly well controlled below 150. 10/31/14 Seen by Jean-Pierre Pinto PA-C. The patient feels he has reached another plateau with regard to his wound healing. His right plantar diabetic ulcer continues to drain and has not improved recently. He is wearing his brace and reports compliance with offloading. 10/21/[address] Nice. The patient reports only scant drainage from his right 1st plantar surface MTPJ diabetic foot ulcer. He continues to offload with a frame walker and his blood sugars are moderately well controlled with most below 150. 10/14/[address] Nice. The patient does not report significant drainage from the right 1st plantar MTPJ ulcer. Of note, when discussing his blood sugars he mentions he's on both 70/30 insulin as well as Lantus and he frequently has blood sugars in the 150-200 range. 10/07/[address] Nice. The patient reports some modest drainage from the right 1st MTPJ plantar ulcer but no pain, erythema, or swelling. His blood sugars are mostly below 150 and he offloads with his AFO. 09/30/14 Seen by Jean-Pierre Pinto PA-C. The patient reports continued compliance with his AFO and he is trying to offload. He is scheduled now with PT for gait training and knee strengthening. He reports his knee is still sore at times and he feels unstable at times when using his offloading devices and AFO. 09/23/[address] Nice. The patient reports only minimal drainage from the right plantar 1st MTPJ ulcer. 09/16/14 Seen by Jean-Pierre Pinto PA-C. The patient continues to use his AFO, offloading shoe, knee scooter and frame walker to offload his wound. 09/09/14 Seen by Jean-Pierre Pinto PA-C. The patient has been wearing his AFO and offloading shoe together, with the added padding as designed by Sahra BOYD of [employer]. He reports that he feels unsteady and that his knee has felt strained and he discontinued using the brace as he is concerned that he has, or will, re-injure his right knee. He also is having difficulty using his knee scooter with the brace. One year ago , while attempting to offload his foot he did injure his knee and required physical therapy to recover. 08/19/14 Seen by Jean-Pierre Pinto PA-C. The patient's weight is down 10 lbs from his previous visit. His twice daily naproxen has been discontinued by his PCP in an effort to reduce his lower extremity edema. 08/15/14 Seen by Jean-Pierre Pinto PA-C. The patient continues to have weight fluctuations and large amounts of weight gain in short periods of time despite increased diuretic usage. 08/04/14 Seen by Jean-Pierre Pinto PA-C. The patient has been taking his Levaquin and again reports to the clinic with a low grade fever. He reports nearly daily application of Kerasal and his weight and edema have been stable on a higher dose of diuretics. Blood sugars remain stable on his current diabetic medications. 07/21/14 Seen by Jean-Pierre Pinto PA-C. The patient does not report fever, chills or URI symptoms. His wound drainage has been stable. 07/16/[address] Nice. The patient reports persistent but minimal drainage from the right foot plantar ulcer and continues to offload with a walker at all times. His blood sugar are mostly below 150 with a few around 170 the past few days. 07/01/14 The patient reports that he has gained 8lbs in 8 days. Denies SOB. Does not report fever or chills. 06/23/[address] Nice. The patient continues to offload with a knee scooter and walker at all times. He does not report significant drainage from the right plantar foot ulcer. 06/20/[address] Nice. The patient has been offloading his right foot ulcer with a walker and reports less drainage over the past 2 days. He's now off of antibiotics and his blood sugars remain well controlled below 150. 06/11/[address] Nice. The patient reports persistent drainage from the right foot plantar 1st MTPJ ulcer and he completed his course of doxycycline which was started for a MRSA positive culture from the ulcer site. His blood sugars have also been a bit elevated above 150 recently. He does not report fever or chills however. 06/04/14 The patient reports difficulty in offloading his wound due to inability to use crutches due to poor balance. He find the wheelchair difficult to use and his knee scooter is not rated for his weight. He denies fever, chills or URI symptoms. 05/28/14 The patient's been attempting to offload with a knee scooter but is concerned it may not be appropriate or stable based on his weight. He does not report increased drainage from he right plantar 1st MTPJ ulcer and his blood sugars remain well controlled below 120. 05/21/14 The patient reports only minimal sanguinous drainage from his right foot plantar ulcer and has been offloading it by minimizing his walking. He's also completed a course of doxycycline that was given for a coag negative staph wound culture from the ulcer. He states his blood sugars are consistently below 120 and does not report hypoglycemia. 05/13/14 The patient reports minimal drainage from his right foot plantar ulcer. His recent wound culture from the site returned coag negative Staph and Diptheroids. 05/02/14 The patient reports less drainage from the right plantar foot ulcer and continues to off loading by minimizing walking and wearing a post-op shoe. 04/29/14 The patient continues to wear his surgical boot with the cutout for his right foot plantar diabetic ulcer. He reports no increase in drainage. 04/25/14 The patient reports minimal bloody drainage on the right foot plantar ulcer dressing that was placed yesterday. He does not report any drainage from the previously healed lateral foot ulcer. His edema in the right leg persists despite wearing compression stockings daily and his blood sugars remain well controlled below 120 with his last A1c approx 2 months ago at 7.4. 04/22/14 The patient reports no increase in drainage from his wounds today. He has been faithfully wearing his orthopedic boot with the cut-out area around his 5th MT ulcer. 04/15/14 The patient reports no increase in drainage from his wounds today. He reminds me that a TCC was the cause of his 5th MT ulcer and he is not excited about trying a TCC again. He is interested in HBOT if it will be beneficial to his wounds. 04/09/14 The patient reports increased drainage from his right 5th MT ulcer and feels his surgical boot he's been wearing for off loading may have caused pressure to the area. His blood sugars have improved and he also reports a 5 lb weight loss after doubling his dose of lasix over the past week. Of note, he did not liaise with his PCP prior to doing this. 04/04/14 The patient states that he was walking a bit more than usual yesterday but notes some sanguinous drainage on his plantar 1st MTPJ dressing for the past few days. He's also put on 7 lbs in the past week and feels his legs are more swollen than usual. He does not report chest pain, shortness of breath, or orthopnea. His blood sugars are also up a bit around 180. He's compliant with both his diabetes regimen and his diuretic therapy. 03/28/14 The patient reports no increased drainage or other complications from his right foot diabetic ulcers. 03/21/14 The patient reports minimal drainage from his right foot diabetic ulcers. He continues to minimally weight bear using a surgical boot and a walker. 03/14/14 The patient does not report increased drainage or other new issues regarding his right 5th MTPJ and right 1st MTPJ plantar ulcers. His blood sugars remain more elevated than usual with some between 150 and 180. 03/07/14 The patient reports no fever or increased right foot wound pain or drainage. 02/28/14 The patient reports that his blood sugar this morning is a bit elevated around 160 but has mostly been below 140 over the past few days. He's been off antibiotics for 3 days now and reports modest drainage from the right 5th MT ulcer while dressing changes are being done every two days. 02/24/14 The patient does not report any new issues regarding his right foot ulcers including increased drainage, fever, or chills. He completed his course of doxycycline yesterday. 02/17/14 The patient reports moderate yellow drainage from the right foot 5th MTPJ ulcer. He's completed a course of doxycycline and does not report fever or chills but states his blood sugars remain higher then normal in the 170's. His wound culture was positive for Enterobacter and his ESR was elevated at 41 and CRP at 2.7. 02/06/14 The patient does not report increased drainage from the right 5th MTPJ ulcer nor does he report fever or pain. He continues to off load with a walker and minimizing walking. He continues on doxycycline which was started empirically at his last visit and his culture has since grown Enterobacter which should be susceptible to doxy based on sensitivities. His xray of the foot was not concerning for osteomyelitis however his ESR and CRP are both moderately elevated. He also feels his legs are more swollen than usual and he continues to take his lasix as scheduled. 02/03/14 The patient does not report fever, chills, or pain in the right foot however when the TCC was removed today he's noted to have a sizable increase in the diameter and depth of what was a small 5th MTPJ ulcer. 01/14/14 The patient reports no new problems regarding is right diabetic foot ulcer. 12/31/13 The patient reports minimal serous drainage from his right 5th MTPJ ulcer and states he continues to off load his foot as much as possible. He does not report pain or drainage from the site of his right 1st MTPJ ulcer. 12/19/13 The patient tolerated with TCC without any complaints but there appears to be a small area of erythema over the right 5th MTPJ. He notes his blood sugars are typically below 120 and his A1c last week was 7.4. 12/13/13 The patient has no complaints regarding his TCC nor his plantar ulcer. 12/11/13 The patient returns for placement of a TCC today. He does not report any new problems regarding is plantar ulcer. 12/03/13 The patient states his plantar ulcer drainage is stable and he's continued to not use a cut-out foam doughnut over the ulcer. 11/26/13 The patient has kept the foam dressing in place from the last visit and has not used a cut-out foam dressing which we felt caused some deterioration of the foot ulcer. He has some mild drainage but no pain. 11/22/13 The patient returns for review of his plantar ulcer and callus that seems to be deteriorating despite an adjustment to his boot and off loading measures. The patient reports his callus accumulation is in spite of daily kerasal applications. Patient reports a new small wound on the left second toe. Josue states that it might be related to the brace. Patient had brace modified to help off load. 11/06/13 Josue states he was able to schedule with the prosthetic doctor tomorrow at noon. He reports no new problems or concerns. He also says that he is done with physical therapy since yesterday as insurance will not cover it any longer. 10/31/13 The patient reports he received his dressing supplies. Dressings changes are going well and no new problems are reported. He saw his shelter case manager, Dr. Solitario, on Monday for a check up and had and x-ray of the foot. 10/24/13 Josue reports he has been staying off of his feet as much as possible. He has been changing the dressing as ordered and states there has been just a small amount of drainage. He recently ran out of his dressings and will need more ordered or the balance sent home with him. 10/17/13 Patient states he has no new problems or concerns. He did have a small increase in drainage the other day but he had walked more than normal the day before. 10/09/13 Josue states he has no new issues. Dressing changes are going well. 10/02/13 oJsue states there have been no new issues with dressing changes. They have been changed once since his last visit. No complaints of pain with the wound. 09/20/13 Josue was discharged from wound care September 05. States that he has been using pumice stone on callus area where had previous wound and may have been too aggressive. Also has been on feet more and having increase in lower extremity edema. Continues to wear the tetragrip F he had received in the clinic 6 hours per day but has not ordered any yet. 09/27/13 Patient states that there have been no issues with using the tetra chief analytics officer. Asking about getting compression stockings from drug store for continued use. 09/05/13 Patient states he has set up physical therapy for the problems with his knee. He starts these treatments on 09/11. There has been no new issues with his wound and he changes the dressings about every two days. He reports little to no drainage. 08/06/13 States no new problems with wound area. Been using kerosol daily. 08/19/13 Patient states he twisted his knee a week ago, and it is effecting his walk slightly. He also complains of more edema in his legs, and has an appointment with his PCP tomorrow regarding the issue. No new problems or concerns with his wound. No new problems or concerns. Patient states he changed the dressing a few times this last week. Saw Dr. Solitario this past week for check up with no change o his management. 07/26/13 The patient has had new brace for one week and so far it is working out well. No other complaints at this time. 07/18/13 Patient got brace for foot and leg yesterday. No problems or concerns. 07/11/13 No problems or concerns. Changed dressing twice since last visit 07/04/13- Pt went to his PCP and his lasix were increased from 20mg to 40mg. He states his edema has decreased since then. Pt's diabetic foot brace (decreases lateral movement to reduce pressure on the sides of his feet) will arrive in about another week. 06/20/13- Pt reports increased edema in his feet for the last week, he has been walking more, but also sitting with his feet down more. With the increase in exercise he states his back has been hurting. On Sunday 06/18 pt went to [facility],and had his ankle brace fitting. 05/31/[address] Green this am. Changed dressing twice this week. Saw radiology services manager (in [place]) on Monday. Considering ankle brace 05/24/13 states started walking program at 5 minutes at a time and taking the bus to clinic apt. 11/08/12 Pt is changing dressing every two days. Is concerned about the edema to the left leg that had the cellulitis. States it is warm. 11/15/12 patient has been having more nerve pain. He has been changing his dressing either every day or every other day. 11/22/12- Patient continues to change dressing about every day. No problems noted. Patient changing dressing about q o day. Thinks wound is less deep. 12/07/12 Pt only changed dressing twice since last visit. No concerns or problems. 12/18/12 When cleaning wound was able to aspirate large purlent sero-sang fluid from site. Pt states he feels it was doing better. 12/24/12 Decreased drainage and pt states he feels the wound is doing well. 12/31 Pt states he has had decreased draiange from wound. Pt denies pain. 01/07/13Pt states the kerasol didn't really do much, but admits he was only applying it every other day and is not sure what his expectations should be. He believes he may have bumped a toe on the left foot and has been concerned about some bruising there but admits it is getting better. Still does not have his new shoes and says he is exploring other options like disability. 01/21/13 feeling well since last visit. feels he may have bumped third toe so wants it to be seen. Level 2- 3 neuropathic pain in right foot 02/27/12 Patient changing bandaid on foot and applying kerasol every three days. Patient got new PCP and saw him yesterday. Patient states things are going well with the wound. 03/12/[address] Green for edema and will see him tomorrow for follow up.03/25/13 states has drainage from bottom of foot. concerned about new wounds Sates he changes dressing every 2 days. Changed this AM as it came off. Using Ca alginate and foam. States no drainage last night 04/19/13 changes dressing every 2-3 days. no problem. Has appt with Dr. Solitario 04/30/13 and new shoes have arrived. To be fitted next week 04/26/13 Is wearing new shoes and states they are working well.Changed dressing twice this week 05.03. saw Dr. Solitario last week. will see again in [address] Green started antibiotic for sinus infection States sinuses not a lot better. Has started Lakshmi D, helping some. States wound about same. Changing dressing 2 x this week as dressing came off. States added collagen one time. Past Medical History This information was obtained from the patient Patient has a medical history of: Left lower extremity cellulitis - 10/15/2012 Diabetic foot ulcer - 09/27/2013 (Hernandez grade 2; right plantar surface; Hernandez grade III (Enterobacter positive wound culture 02/03/14), lateral right 5th MTPJ originally dx 12/24/13; MRSA positive culture 06/04/14 ) Chronic venous hypertension Type II Diabetes Hypertension Morbid Obesity Kidney Stones Hx MRSA Diabetic neuropathy Hallux valgus (right 1st toe) UTI (hospital admit) Cellulitis of legs (June and September 2012- hospital admit) Cataract surgery (10/13/15) Diabetic Neuropathy Complaints and Symptoms This information was obtained from the patient Patient complains of: General Notes: I have reviewed and concur with the Review of Systems and Past Family Social History documents completed by the clinician, I have reviewed and concur with the Wound Assessment document completed by the clinician Cardiovascular (Central/Peripheral): Lower extremity (leg) swelling Integumentary (Hair/Skin/Nails): Open Sore Musculoskeletal: Deformities, Muscle Weakness Neurological: Abnormal Gait, Loss of Protective Sensation, Tremors Prior Wound History: Bleeding, Drainage Patient denies complaints or symptoms related to: Cardiovascular (Central): Irregular heart beat Cardiovascular (Central/Peripheral): Lower extremity (leg) resting pain Constitutional Symptoms (General Health): Chills, Fever, Marked Weight Change Ear/Nose/Mouth/Throat: Hearing Loss / Aid Gastrointestinal (GI): Nausea / Vomiting Hematologic/Lymphatic: Bleeding / Clotting Disorders, Bleeding Tendency Musculoskeletal: Assistive Devices Prior Wound History: Erythema, Malodor, Pain Psychiatric: Memory Loss Respiratory: Oxygen Use, Shortness of Breath OBJECTIVE Constitutional Vital signs reviewed and noted. Well developed. Alert. Clean appearing.. Height/ Length: 71 in (180.34 cm), Weight: 362.3 lbs (164.68 kgs), BMI: 50.5, Temperature: 98.8 ?F ( 37.11 ?C), Pulse: 76 bpm, Respiratory Rate: 18 breaths/min, Blood Pressure: 134/74 mmHg, Capillary Blood Glucose: 149 mg/dl, Pulse Oximetry: 96 %. Vital Signs Notes: Glucose per patient. Ears, Nose, Mouth, and Throat: No clinically significant hearing loss on informal examination. Respiratory: No respiratory distress. Even respirations and without use of accessory muscles.. Cardiovascular: 1+ right lower extremity edema. Gastrointestinal (GI): Obese. Nondistended.. 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 Integumentary (Hair, Skin) No periwound erythema, warmth, or significant drainage. No periwound rashes appreciated or noted otherwise.. Refer to appropriate clinician wound documentation for this visit; right foot ulcer extends to subcut with base partially covered with pink granulation, remainder fibrin and slough. Significant amount of callus in the periulcer area. Wound #6 Right, Plantar Foot is a chronic Hernandez Grade 2 Diabetic Ulcer and has received a status of Not Healed. Subsequent wound encounter measurements are 0.4cm length x 0.2cm width x 0.2cm depth, with an area of 0.08 sq cm and a volume of 0.016 cubic cm. No tunneling has been noted. No sinus tract has been noted. No undermining has been noted. There is a small amount of serosanguineous drainage noted which has no odor. The patient reports a wound pain of level 0/10. The wound margin is callus. Wound bed has Yes epithelialization, No eschar, No slough, Yes pink, firm granulation. The periwound skin moisture is normal. The periwound skin color is normal. The periwound skin exhibited: Callus. The periwound skin did not exhibit: Brawny Induration, Edema, Excoriation, Induration, Crepitus, Fluctuance, Friable, Rash. The temperature of the periwound skin is WNL. Periwound skin does not exhibit signs or symptoms of infection. Local Pulse is Palpable. Neurological: Cranial nerves grossly intact with symmetric function normal by informal observation.. ASSESSMENT Active Problems ICD-10 (Encounter Diagnosis) E11.621 - Type 2 diabetes mellitus with foot ulcer (Encounter Diagnosis) L97.512 - Non-pressure chronic ulcer of other part of right foot with fat layer exposed (Encounter Diagnosis) L84 - Corns and callosities PROCEDURES Wound #6 Wound #6 (Diabetic Ulcer) is located on the right, plantar foot. A skin/ subcutaneous tissue level surgical debridement with a total area debrided of 0.15 sq cm was performed by Stephen Nice MD. Subcutaneous was removed along with devitalized tissue: callus, exudate, and slough. The following instrument(s) were used: curette. Pain control was achieved using 4% Lido. A time out was conducted prior to the start of the procedure. A moderate amount of bleeding was controlled with silver nitrate. The procedure was tolerated well with a pain level of 0 throughout and a pain level of 0 following the procedure. Post Debridement Measurements: 0.5cm length x 0.3cm width x 0.2cm depth; with an area of 0.15 sq cm and a volume of 0.03 cubic cm; Additional Information Muscle fascia or bone removed and sent to pathology?: No PLAN Wound Orders: Wound #6 Right, Plantar Foot Anesthetic Topical Xylocaine to wound bed. - In clinic only. Cleanser Cleanse Wound: - Normal saline and gauze. May Shower. - Do not get wound wet with tap water. Use cast protector when showering. Topical Treatments Moisturizing lotion to surround skin. - Kerasal to callus. Dressings Cover and secure with: - Foam (or may use telfa) and hypafix tape. Change Dressing: - Every other day. Additional Orders: Off-Loading Keep weight off: - Right foot as much as possible. Use Knee scooter when able. Use/Wear when Walking: - Offloading shoe. Compression/Edema Control Elevation of leg(s) above the level of the heart when sitting. Avoid prolonged standing in one place. - Please avoid standing or walking for long periods of time. Knee-high gradient compression stockings. - Tetragrip F stockings to both legs. On in the morning and off at night. Follow-Up Appointments Return Appointment: - - One week Other information: If you develop fever, chills, increased pain, drainage, redness or swelling please call our office. If after hours, respond to the ER. Should you experience any significant changes in your wound(s) or have any questions regarding your home care instructions please contact the wound center @ [phone]. If after hours, contact your primary care physician or go to the hospital emergency room. Scribing Attestation I attest, as the nurse, that I scribed these orders for the physician. I've reviewed the clinician's documentation and agree with the evaluation and plan as written. In addition, the patient's ulcer demonstrates evidence of non-viable devitalized tissue which will continue to benefit from sharp debridement to help promote granulation and expedite healing. Also, the patient will restart applying Kersal to the periulcer callus. Electronic Signature(s) Signed By: Date: Stephen Nice MD 11/28/2017 08:43:34 Entered By: Stephen Nice on 11/28/2017 08:24:24
== END ==
PROVIDERS: PCP Family Medicine; Visit Provider Internal Medicine
DX: E11.621 Type 2 diabetes mellitus with foot ulcer (principal); L97.512 Non-pressure chronic ulcer of other part of right foot with fat layer exposed; L84 Corns and callosities
CPT/HCPCS: 11042

== ENCOUNTER → 2017-11-14 09:25 | Outpatient (CLI) | payer MEDICARE, OTHER, SELFPAY ==
--- NOTE | 2017-11-14 | OV.WND_ITS ---
Progress Note Details Patient Name: Josue Mesa Patient Number: [id number] PatientPatientDate: 11/14/2017 Clinician: Janel Daly Physician / Deliverer Outside: Stephen Nice SUBJECTIVE Chief Complaint This information was obtained from the patient Diabetic ulcer to right plantar foot. Allergies Augmentin (Severity: Mild, Reaction: nausea) HPI This information was obtained from the patient 11/14/17. Seen by Dr. Nice. The patient does not report increased drainage associated with the chronic right 1st MTPJ diabetic ulcer since his last visit. 11/07/17. Seen by Dr. Nice. The patient does not report increased drainage associated with the chronic right 1st MTPJ diabetic ulcer since his last visit. 10/31/17. Seen by Dr. Nice. The patient does not report increased drainage associated with the chronic right 1st MTPJ diabetic ulcer since his last visit. 10/27/17. Seen by Dr. Nice. 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 10/24/17. Seen by Dr. Nice. The patient does not report increased drainage associated with the chronic right 1st MTPJ diabetic ulcer since his last visit. 10/20/17. Seen by Dr. Nice. The patient does not report increased drainage associated with the chronic right 1st MTPJ diabetic ulcer since his last visit. 10/17/17. Seen by Dr. Nice. The patient does not report increased drainage associated with the chronic right 1st MTPJ diabetic ulcer since his last visit. He continues to wear his offloading shoe as recommended which has been modified to add a layer of foam that's had a recess cut out at the site of the ulcer. 10/13/17. Seen by Dr. Nice. The patient does not report increased drainage associated with the chronic right 1st MTPJ diabetic ulcer since his last visit. 10/10/17. Seen by Dr. Nice. The patient does not report increased drainage associated with the chronic right 1st MTPJ diabetic ulcer since his last visit. 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 10/03/17. Seen by Dr. Nice. The patient does not report increased drainage associated with the chronic right 1st MTPJ diabetic ulcer since his last visit which was 10 days ago. 09/22/17. Seen by Dr. Nice. The patient's xray of his right foot showed a 1st MTPJ intra- articular fracture and he was seen by Dr. Solitario who recommended continued offloading with the forefoot surgical offloading shoe but no further intervention at this time. He does not report pain in the foot nor significant drainage associated with the plantar 1st MTPJ diabetic foot ulcer since his last visit. 09/19/17. Seen by Dr. Nice. The patient reportedly fell on Monday injuring his right foot. He was seen by his PCP yesterday who felt it may have been infected and he was started on Keflex. He does not report pain in the foot and is able to bear weight as usual. He also does not report increased drainage associated with the chronic right 1st MTPJ diabetic ulcer since his last visit. 09/15/17. Seen by Dr. Nice. The patient arrived today feeling quite week and shaky and states he was seen in the ER earlier this morning for similar complaints and subsequently discharged to his [facility]. His CT scan and labs were unremarkable however he was unable to leave a urine sample for analysis at that time. His symptoms persist during our visit however there's no confusion or other acute complaints. He's also finished his course of Bactrim that was treating the recent right diabetic foot ulcer infection and he does not report increased drainage for pain at the ulcer site. 09/12/17. Seen by Dr. Nice. The patient does not report increased drainage associated with the chronic right 1st MTPJ diabetic ulcer since his last visit. He also continues on doxycycline for the recent Staph cultured from the ulcer and he does not report adverse side effects. 09/08/17. Seen by Dr. Nice. The patient's now on doxycycline for the recent coag negative Staph culture taken from the chronic right 1st MTPJ diabetic ulcer. He does not report adverse side effects nor increased drainage or pain associated with the ulcer. 09/05/17. Seen by Dr. Nice. The patient does not report increased drainage associated with the chronic right 1st MTPJ nor right 1st toe dorsal diabetic ulcers since his last visit however the nurse reports increased bloody drainage on the dressing and increased maceration and callus along the distal margin of the ulcer. His recent wound culture grew coag negative Staph and he's not currently on antibiotics. 09/01/17. Seen by Dr. Nice. The patient does not report increased drainage associated with the chronic right 1st MTPJ nor right 1st toe dorsal diabetic ulcers since his last visit. 08/29/17. Seen by Dr. Nice. The patient does not report increased drainage associated with the chronic right 1st MTPJ diabetic ulcer since his last visit. He does complain of progressive upper extremity tremors that are most noticeable in the morning and evening and may occur after he takes his metformin. He does not report low blood sugars and he'll bee seeing his PCP today to discuss this. 08/25/17. Seen by Dr. Nice. The patient reports being more active and on a boat over the holiday which was no conducive to using his knee scooter. He feels the right 1st MTPJ ulcer has deteriorated and he has a new ulcer over the dorsum of the right 1st toe now. 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 08/22/17. Seen by Dr. Nice. The patient was seen at [facility] and they provided a new orthotic insert to help better offload the chronic right 1st MTPJ diabetic ulcer while he's wearing his surgical, forefoot offloading show. He does not report increased drainage or pain associated with the ulcer and is using a knee scooter also to help offload. He has a severe valgus deformity which results in heavy callus formation and has required twice weekly debridements which has been effective in gradually promoting the ulcer to heal. He's also been applying topical gentamicin to the ulcer base to treat the recent coag negative Staph culture that was taken due to increased drainage. 08/18/17. Seen by Dr. Nice. The patient's wound culture taken from the chronic right foot diabetic ulcer at his last visit grew an intermediately resistant coag negative Staph and his dressing change and application of gentamicin is taking place only every 2-3 days. He does not report pain in the foot but staff report his dressing as being 'bloody' today. 08/15/17. Seen by Dr. Nice. The patient reports what may be increased drainage on his right foot diabetic ulcer dressings as mentioned by his care assistant in assisted living. He's using a knee scooter as recommended and does not report pain in the foot. He's also asking when it will be appropriate to have his right foot orthotic adjusted in his diabetic shoe although he's currently wearing a forefoot offloading shoe at all times. 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 08/11/17. Seen by Jean-Pierre Pinto PA-C. The patient reports stable drainage from his right foot diabetic ulcer. Again his blood sugars have been above 150 since his last visit. 08/08/17. Seen by Jean-Pierre Pinto PA-C. The patient reports no increase in drainage from his right foot diabetic ulcer. His blood sugars this week have reportedly been mostly above 150. 08/04/17. Seen by Dr. Nice. The patient does not report increased drainage associated with the chronic right plantar foot diabetic ulcer since his last visit and he's offloading appropriately as recommended. He also was seen by Dr. Solitario, podiatry, who discussed possible surgical options to address the severe right 1st toe valgus deformity that's complicating the ulcer and contributing to heavy periculcer callus formation however there's no plan of intervention at this time. 08/01/17. Seen by Dr. Nice. The patient does not report increased drainage associated with the chronic right plantar foot diabetic ulcer since his last visit and he's offloading appropriately as recommended. 07/28/17. Seen by Dr. Nice. The patient does not report increased drainage associated with the chronic right plantar foot diabetic ulcer since his last visit and he's offloading appropriately as recommended. We've increased his visits to twice weekly due to the very heavy callus formation that's contributing to the refractory nature of the ulcer. 07/25/17. Seen by Dr. Nice. The patient does not report increased drainage associated with the chronic right plantar foot diabetic ulcer since his last visit and he's offloading appropriately as recommended. Kerasal is not being applied to the periulcer callus and his visits have been decreased to once weekly over the past few weeks while the ulcer has been improving. 07/18/17. Seen by Dr. Nice. The patient does not report increased drainage associated with the chronic right plantar foot diabetic ulcer since his last visit and he's offloading appropriately as recommended. 07/11/17.Seen by Dr. Nice. The patient has been wearing his offloading shoe and using a knee scooter as recommended and does not report significant drainage associated with the chronic right plantar foot diabetic ulcer since his last visit. 07/04/17. Seen by Dr. Nice. The patient has been wearing his offloading shoe as recommended and does not report significant drainage associated with the chronic right plantar foot diabetic ulcer since his last visit. 06/30/17. Seen by Dr. Nice. The patient has been wearing his offloading shoe as recommended and does not report significant drainage associated with the chronic right plantar foot diabetic ulcer since his last visit. 06/27/2017. Seen by Dr. Nice. The patient has been wearing his offloading shoe as recommended and does not report significant drainage associated with the chronic right plantar foot diabetic ulcer since his last visit. His blood sugars are also mostly below 100 now and he's using his knee scooter as well to further optimize offloading. 06/23/2017. Seen by Dr. Nice. The patient does not report pain nor increased drainage associated with the chronic right plantar foot diabetic ulcer since his last visit. He is wearing his offloading shoe as recommended now and his blood sugar control has improved with some below 200. 06/20/2017. Some by Dr. Nice. The patient is not report increased drainage position with chronic right plantar foot diabetic ulcer since last visit. He is now clindamycin for the resistant Staphylococcus haemolyticus positive culture that was taken to the last visit. His blood sugars continued to be elevated and or over 300 earlier this morning despite having his Lantus dose increased recently. He is also wearing his diabetic shoes but not an offloading surgical shoe as I have been recommending. 06/16/17. Seen by Dr. Nice. The patient does not report increased drainage associated with chronic right plantar foot diabetic ulcers since his last visit. His recent wound culture grew a resistant coag negative staph organism. He also met with his primary care provider, Dr. Green, to increase his dosing of Lantus and plans to work with him on dietary measures to help gain better control of his elevated blood sugars. 06/13/17. Seen by Dr. Nice. The patient's blood sugars again are over 300 today and his appointment with his primary care provider to address this. He does not report any acute changes regarding the chronic right plantar foot diabetic ulcer and is using his knee scooter to help facilitate offloading as much as possible. 06/09/17. Seen by Dr. Nice. The patient does not report significant drainage associated with the chronic right plantar foot diabetic ulcer since his last visit. 06/06/17. Seen by Dr. Nice. The patient does not report significant drainage associated with the chronic right plantar foot diabetic ulcer since his last visit and he's lost another 7 lbs since increasing his dose of Lasix due to abnormal weight gain and significant bilateral lower extremity edema. 06/02/17. Seen by Dr. Nice. The patient does not report significant drainage associated with the chronic right plantar foot diabetic ulcer since his last visit. His increase his dose of Lasix and has lost 7 pounds over the past 3 days. This is been done due to the significant increase in leg swelling over the past 2 weeks. 05/30/17. Seen by Dr. Nice. The patient does not report increased drainage associated with chronic right plantar foot diabetic ulcer since his last visit however he does feel that the right foot and leg are swelling considerably over the past few days. We note a 4 pound weight gain since his last visit on Monday and he states is taking his diuretic as prescribed. 05/26/17. Seen by Dr. Nice. The patient does not report increased drainage associated with chronic right plantar foot diabetic ulcers since his last visit. His culture grew a somewhat resistant coag negative staph and he is not currently on antibiotics. 05/23/17. Seen by Dr. Nice. Staff reports some increased drainage on his dressings covering the chronic right plantar foot diabetic ulcer today. His blood sugar is again over 300 and he states he is eating rice and potatoes trying to cut back. He continues offload with his knee scooter as recommended and does not report pain or any other acute ulcer related issues today. 05/19/17. Seen by Dr. Nice. The patient does not report increased pain or drainage associated with chronic right plantar foot diabetic ulcer since his last visit. He is using his knee scooter as recommended and has had significant problems with heavy callus at the site due to a severe right first toe valgus deformity. He is now attending clinic twice weekly for debridement of the ulcer and complicating callous. 05/16/17. Seen by Dr. Nice. The patient does not report increased drainage or pain associated with chronic right plantar foot diabetic ulcer since his last visit. Of note, the patient's blood sugar as 271 today and his A1c was 9.8 in March. 05/12/17. Seen by Dr. Nice. The patient does not report increased pain or drainage associated with chronic right plantar foot diabetic ulcer since his last visit. He is using his knee scooter to help offload the site which is particularly important based on patient's morbid obesity coupled with his severe first MTPJ valgus deformity. 05/09/17. Seen by Dr. Nice. The patient does not report increased drainage or pain associated with the chronic right plantar foot diabetic ulcer since his last visit. He states his blood sugars continue to be above 200 consistently although are improving with compliance to a lower carbohydrate type diet. He was started on metformin about a month ago he complains of some intermittent upper extremity weakness since then and will be discussing this with his primary care provider. He is also awaiting his new diabetic shoes that are being adjusted to help accommodate for his severe right first toe valgus deformity. 05/02/17. Seen by Jean-Pierre Pinto PA-C. The patient reports stable drainage from his right 1st toe ulcer and blood sugars continue to be above goal. 04/25/17. Seen by Jean-Pierre Pinto PA-C. The patient reports his blood sugars have been above 150 this week. He does not report increased drainage from his right 1st toe diabetic ulcer. 04/18/17. Seen by Dr. Nice. The patient does not report increased drainage associated the chronic right first toe diabetic ulcers since his last visit. 04/11/17. Seen by Jean-Pierre Pinto PA-C. The patient reports he is developing more calloused areas on his feet and is concerned about new ulcers occurring. His chronic 1st toe diabetic ulcer has been stable. 04/04/17. Seen by Jean-Pierre Pinto PA-C. The patient reports he has not been able to get his blood sugars below 150. Drainage is reportedly decreased from his diabetic foot ulcer. 03/30/17. Seen by Jean-Pierre Pinto PA-C. The patient reports continued high blood sugars, all above 150. Drainage from his ulcer is not increased. 03/23/17. s Seen by Jean-Pierre Pinto PA-C. The patient reports blood sugars above 150 again this week. He is concerned that something must be going on with an infection as he believes his diet has not changed and thus his sugars should be lower. His wound has had stable drainage. 03/15/17. Seen by Jean-Pierre Pinto PA-C. The patient reports he has had some blood sugars above 150 this week. He reports no increase in drainage from his right 1st toe diabetic ulcer. 03/08/17. Seen by Dr. Nice. The patient was discharged from the hospital recently following treatment for cellulitis associated with the chronic right first toe diabetic ulcer. He grew MRSA from the wound culture and was treated with IV vancomycin and is now on Bactrim. He does not report pain nor significant drainage associated with the ulcer nor side effects from antibiotics. 02/23/17. Seen by Dr. Nice. The patient does not report increased drainage associated the chronic right first toe diabetic ulcers since his last visit. The patient also states that he is more active over the holidays and was unable to use his knee scooter at times while walking outside due to safety concerns. 02/08/17. Seen by Dr. Nice. The patient does not report increased drainage associated the chronic right first toe diabetic ulcers since his last visit. He states he is using his offloading shoe when at home and a knee scooter went out. 02/01/17. Seen by Dr. Nice. The patient does not report increasing pain or drainage associated with chronic right first toe diabetic ulcer since his last visit. 01/25/17. Seen by Dr. Nice. The patient does not report increasing pain or drainage associated with chronic right first toe diabetic ulcer since his last visit. 01/18/17. Seen by Dr. Nice. The patient does not report increasing pain or drainage associated with chronic right first toe diabetic ulcer since his last visit. Of note, the patient's blood sugar is over 260 again today and he admits that it's been significantly elevated for a number of weeks. He has an appointment with his primary care provider to discuss this next week. 01/11/17. Seen by Dr. Nice. The patient does not report increasing pain or drainage associated with chronic right first toe diabetic ulcer since his last visit. He states his blood sugars have been running high recently and he is going to follow-up with his primary care provider in the near future to address this. 01/04/17. Seen by Dr. Nice. The patient does not report increased drainage associated with chronic right first foot diabetic ulcers since his last visit. He's also been applying Kersal to the periulcer as recommended. 12/28/16. Seen by Dr. Nice. The patient does not report increased drainage associated with chronic right first foot diabetic ulcers since his last visit. 12/22/16. Seen by Dr. Nice. The patient does not report increased drainage associated with chronic right first foot diabetic ulcers since his last visit. He's not been applying Kersal to the periulcer callus and does not appear to be using his knee scooter at all times to offload the ulcer. 12/15/16. Seen by Jean-Pierre Pinto PA-C. The patient reports he continues to have blood sugars above 150 this week. He recently saw his PCP, they did not alter his diabetic care plan. His visit was a follow up for an ER visit for chest pain which was negative for [place] and was thought to be epigastric in origin. His diabetic ulcer of the right foot has not had increased drainage. 12/06/16. Seen by Jean-Pierre Pinto PA-C. The patient reports that he has found his knee scooter and plans to start using it today. He also reports most of his blood sugars have been above 150. Drainage from his ulcer has been stable. 11/25/16. Seen by Dr. Nice. The patient does not report increased drainage associated with chronic right first foot diabetic ulcers since his last visit. He is now on antibiotics for wound infection and does not report adverse side effects. Of note, he is not yet using a knee scooter nor offloading shoe as we recommended last week. 11/18/16. Seen by Dr. Nice. The patient returns to our clinic and presents with recurrence of a right first MTPJ plantar diabetic ulcer. He states it started a couple weeks ago when he was attempting to remove overlying callus at home. He does not report significant drainage or pain associated with the ulcer and is not currently on antibiotics. He also states his recent A1c was 7.8. His blood sugar in clinic today is 250. 11/21/16 Seen by Jean-Pierre Pinto PA-C. The patient reports no drainage from his chronic right 1st MTPJ joint since his last dressing change. 01/04/16 Seen by Jean-Pierre Pinto PA-C. The patient reports minimal drainage from his chronic right 1st MTPJ ulcer. He has recently seen his PCP and his A1c was 7.7. His lower extremity edema, abnormal weight gain and kidney failure are stable with his diuretics recently being adjusted. 12/28/15. Seen by Dr. Nice. The patient does not report significant drainage associated with the chronic right 1st MTPJ diabetic ulcer since his last visit however he does complain of increasing shortness of breath, fatigue, and an 18lb weight gain over the past week despite taking his diuretics as recommended. He does not report chest pain or cough and his blood sugars remain relatively well controlled with most below 150. 12/16/15. Seen by Dr. Nice. The patient does not report significant drainage associated with the chronic right 1st MTPJ diabetic ulcer since his last visit. He's applying kerasal to the surrounding callus as recommended and offloading nearly at all times using his knee scooter. 12/07/15 Seen by Jean-Pierre Pinto PA-C. The patient reports compliance with his new offloading brace and shoe and has seen minimal drainage from his diabetic foot ulcer since his last visit. 11/30/15. Seen by Dr. Nice. The patient does not report significant drainage associated with the chronic right 1st MTPJ diabetic ulcer since his last visit and he's wearing a combined AFO / diabetic shoe system that he feels may be better offloading the ulcer. 11/23/15 Seen by Jean-Pierre Pinto PA-C. The patient reports that he is wearing his new diabetic shoes and inserts. He is continuing physical therapy for gait training and reports continued difficulty with stairs and occasional bouts of dizziness. He reports stable drainage from his chronic right foot diabetic ulcer. 11/16/15 Seen by Jean-Pierre Pinto PA-C. The patient reports stable drainage from his right foot diabetic ulcer. He also reports that his diabetic shoes and inserts are quite old and worn out. He is ambulating with is 4 wheeled walker and is working with PT for gait training. 11/09/15 Seen by Jean-Pierre Pinto PA-C. The patient reports that he is still using a 4 wheeled walker instead of a 4 footed walker. PT is working with him to improve his gait and balance. Drainage from his right foot ulcer has been stable. 11/02/15 Seen by Jean-Pierre Pinto PA-C. The patient reports no increase in drainage from his chronic diabetic foot ulcer. He has had multiple blood sugars above 150 this week. 10/29/15. Seen by Dr. Nice. The patient was recently discharged from [facility] following treatment of sepsis thought to possibly be related to his chronic right 1st MTPJ diabetic ulcer that grew Enterococcus just prior to his admission. He now feels generally weak , has lost 18 lbs following diuresis, and is residing at home where he's minimizing his weight bearing on the right foot. He does not report significant drainage from the ulcer nor pain and states his blood sugars remain mostly around 150. He also continues on levofloxacin and does not report adverse side effects. 10/14/15. Seen by Dr. Nice. The patient report persistent bloody drainage from the chronic right 1st MTPJ diabetic ulcer and he feels the callus has increased significantly since it was last debrided 2 week ago. He does not report fevers or feeling unwell and states his blood sugars are well controlled with most below 150. He's using his AFO when walking nearly at all times to facilitate offloading the significant right 1st MTPJ valgus deformity. 09/24/15 Seen by Jean-Pierre Pinto PA-C. The patient reports that he is no ran out of lasix due to a mix up at the pharmacy and unavailability of his strength/dose of tablets. He continues trying to offload his ulcer with his wheeled walker and notes stable ulcer drainage. 09/17/15. Seen by Dr. Nice. The patient continues to report some bloody drainage from the chronic right 1st MTPJ diabetic ulcer and he's started reducing his activity and continues to use his knee scooter at home to offload the foot. 09/10/15. Seen by Dr. Nice. The patient states he was more active over the past week and notices increased bloody drainage associated with chronic right first MTPJ diabetic foot ulcer. He continues to wear his AFO and states his blood sugars are mostly below 150. 09/03/15. Seen by Dr. Nice. The patient does not report significant drainage associated with the chronic right first MTPJ diabetic ulcer over the past week. He does feel that the callus smaller than on previous visits and is wearing his AFO at all times. Of note, he 's now in doxycycline to treat the recent coag negative Staph cultured from the ulcer at his last visit. 08/27/[address] Nice. The patient reports increase bloody drainage associated with the chronic right foot 1st MTPJ diabetic ulcer and he feels his activity has increased due to physical therapy and increased mobility over the past week. He does not report pain at the ulcer site, fevers, or feeling unwell in general. 08/20/[address] Nice. The patient does not report significant drainage associated with the chronic right foot 1st MTPJ diabetic ulcer over the past week and he's using a knee scooter as much as possible when mobilizing to offload the foot. His blood sugars also remain relatively well controlled with most below 150. 08/13/[address] Nice. The patient does not report significant drainage associated with the chronic right foot diabetic ulcer over the past week and he's offloading using a knee scooter as recommended. His blood sugars remain relatively well controlled with most below 150. 08/06/[address] Nice. The patient reports recurrence of some drainage from the chronic right foot diabetic ulcer over the past few days and states he's been more active with physical therapy. His blood sugars remain well controlled with most below 150 and he's wearing his AFO when away from the house and using a knee scooter most of the time while at home to facilitate offloading. He's also applying Kerasal to the callus in the periwound area as recommended. 07/23/[address] Nice. The patient does not report drainage from the chronic right 1st MTPJ diabetic ulcer over the past week and he's using his new AFO and knee scooter to offload the foot. 07/16/[address] Nice. The patient does not report pain or drainage from the chronic right 1st MTPJ diabetic ulcer and he's wearing his newer AFO while offloading with a knee scooter most of the time. 07/09/[address] Nice. The patient does not report drainage or pain associated with his chronic right foot 1st MTPJ diabetic ulcer and he's been offloading by using a knee scooter when mobilizing. His pigment pumper is present today as well to discuss possible adjustments to his AFO with the goal of reducing callus formation that's in part caused by his significant right 1st toe valgus deformity. He also states his blood sugars remain well controlled below 150 consistently. 07/03/[address] Nice. The patient does not report significant drainage from the chronic right foot diabetic ulcer and he's offloading by using his knee scooter. His blood sugars also remain relatively well controlled around 150 consistently. 06/26/[address] Nice. The patient report some continued bloody drainage from the chronic right 1st MTPJ diabetic ulcer however he does not report associated pain , fevers or feeling unwell. His blood sugars remain consistently below 150 and he's using his walker and knee scooter for offloading as recommended. He's also been actively working with his pigment pumper in hopes of better offloading the ulcer and address his significant callus formation and left 1st MTPJ valgus deformity. 06/19/[address] Nice. The patient does not report pain associated with his chronic right 1st MTPJ diabetic ulcer however he states some bloody drainage persists on the dressings. He does not report fevers or feeling unwell and states his blood sugars are well controlled below 150 consistently and he's using a knee scooter and walker to offload the ulcer when mobilizing. He also does not report pain or drainage associated with the left 2nd toe wound. 06/11/[address] Nice. The patient was recently discharged from [facility] following a fall at home that resulted in a broken rib. Regarding his chronic right 1st MTPJ diabetic ulcer he does not report significant drainage and has been offloading through bed rest and using a knee scooter while at home. His blood sugars also remain well controlled with most below 150. He also reports a new wound on the dorsum of the left 2nd toe that he believes occurred during his fall. He does not report associated pain or significant drainage. 05/28/[address] Nice. The patient reports some increased bloody drainage from the chronic right 1st MTPJ diabetic foot ulcer over the weekend associated with a new 'soft' area along the distal margin. He's been more active the past the past few days but states he's using his knee scooter to offload at all times. His blood sugars also remain well controlled with most around 120 and he's no longer on antibiotics. He also continues to wear his old AFO but states there was a recent adjustment of a cut out lined with 'soft' plastic in the area of the ulcer. 05/21/[address] Nice. The patient report less drainage from the chronic right foot 1st MTPJ diabetic ulcer over the past week. He's completed his course of doxycycline and he continues on fluconazole for the recent Alma Delia positive wound culture. He's also reverted back to using his previous AFO while his newer one is adjusted to try to address the recent significant increase in callus formation that's occurred. His blood sugars also remain well controlled under 150 consistently and his recent episodes of hypoglycemia has resolved with an adjustment of his insulin regimen. 05/14/[address] Nice. The patient reports less drainage on the dressings covering the chronic right 1st MTPJ diabetic ulcer since starting doxycycline for a coag negative Staph wound culture along with fluconazole for the alma delia positive culture. His blood sugars remain well controlled below 120 and his insulin has been decreased due to the recent episodes of hypoglycemia. His diuretic has also been decreased as he's lost considerable water weight over the past month. 05/07/[address] Nice. The patient continues to report modest bloody drainage on the dressing covering the chronic right 1st MTPJ diabetic ulcer and he continues to limit his walking but has not been using a knee scooter or walker around the house to facilitate offloading. His blood sugars remain well controlled mostly below 150. 04/30/[address] Nice. The patient continues to report bloody drainage on his right foot diabetic ulcer dressing and he's feeling a bit unwell in general without reporting specific symptoms. He also continues to have intermittent low blood sugars in the 50-60' s and has not discussed this issue with his PCP recently. He's wearing his AFO daily but admits to having difficulty using his walker at all times due to limited space in his new apartment. 04/27/15 Seen by Jean-Pierre Pinto PA-C. The patient reports nonspecific malaise for the past few days. Last night, he reports feeling to tired, weak and shaky to watch TV and went to bed very early. His malaise has been increasing over the past 1-2 weeks and he has frequently been monitoring his blood sugar. His blood sugars are lower than normal lately but never below 100. He has been reducing his insulin dosing in the past 2 weeks to compensate for the lower numbers. He continues to loose weight while continuing to take Lasix and metolazone. 04/23/[address] Nice. The staff and patient continue to report at least moderate serosanquinous drainage from the chronic right 1st MTPJ diabetic ulcer. His blood sugars have been well controlled over the past week with most below 150. He does report being more active than usual while he's been moving to his new home and he also states he continues to loose weight following a recent increase in his diruetics. His wound culture from the last visit reported heavy Diptheroids and he's not currently on antibiotics. 04/20/15 Seen by Jean-Pierre Pinto PA-C. The patient reports that he has moved house and has been on his feet much more so as a consequence. He reports increased drainage from his right plantar foot diabetic ulcer. In addition he believes he struck it against a hard surface when moving. He has had no significant pain with weightbearing but is insensate in this area. 04/15/[address] Nice. The patient reports continued weight loss, and decreasing leg swelling, since starting metolazone totaling about 20 lbs. He also feels the chronic right 1st MTPJ diabetic ulcer has been draining increasing amounts of sanguinous fluid. His blood sugars remain well controlled with most below 120 and he does not report fever or feeling unwell. 03/25/[address] Nice. The patient states he walked a considerable amount yesterday and now reports some bleeding from the chronic right 1st MTPJ diabetic foot ulcer. He also continues to report increased weight gain and now some shortness of breath when walking short distances. He has a low grade fever today but does not report a cough or feeling unwell otherwise. 03/11/2015 Seen by Jean-Pierre Pinto PA-C. The patient's weight has increased 10 lbs in the past week. He reports increased shortness of breath with exertion. He denies chest pain, jaw, neck, shoulder pain or shortness of breath at rest. He has been compliant with his diuretics. His ulcer drainage has been stable. 03/04/2015 Seen by Jean-Pierre Pinto PA-C. The patient is wearing his newly adjusted AFO and reports an increase in walking since last visit. He was unaware that his temperature was elevated and reports no URI symptoms such as cough or sore throat. 02/24/2015 Seen by Jean-Pierre Pinto PA-C. The patient believes his ulcer has now been draining more despite trying to offload the ulcer. 02/11/[address] Nice. The patient reports less drainage from the chronic right 1st toe diabetic ulcer and he's still waiting for approval for his new AFO. 02/04/[address] Nice. The patient feels the drainage from the right 1st MTPJ ulcer has decreased since last week and he's scheduled to see Dr. Solitario tomorrow to review his foot deformity and recurrent callus formation at the site of the ulcer. 01/30/[address] Nice. The patient returns to clinic and reports recurrence of the recently healed right 1st MTPJ diabetic foot ulcer with new moderate drainage and significant callus formation. He's not yet re-established with Dr. Solitario, podiatry, due to insurance issues and is awaiting approval for an adjustment for his AFO. His blood sugars remain controlled below 150 mostly and he does not report pain in the foot or fevers. 01/12/[address] Nice. The patient does not report drainage from the right 1st toe MTPJ ulcer and he's scheduled to have his new AFO fitted this week. 01/05/[address] Nice. The patient does not report drainage associated with the right 1st MTPJ diabetic foot ulcer however he states he has had some intermittent, very brief 'shooting' pain at the site of the ulcer the past few days. His blood sugars also remain between 120 and 150 mostly. 12/29/[address] Nice. The patient does not report drainage from the chronic right 1st MTPJ diabetic foot ulcer and he offloads using a walker and surgical shoe at all times except for when he wears a slipper around his small apartment. 12/22/[address] Nice. The patient does not report significant drainage from the right 1st MTPJ diabetic foot ulcer and he states his blood sugars are still in the 150 range with some over 180. 12/10/[address] Nice. The patient does not report significant drainage from the right 1st MTPJ diabetic foot ulcer. 12/04/[address] Nice. The patient does not report any drainage from the chronic right 1st MTPJ diabetic foot ulcer and he's still waiting for insurance approval for a custom, articulating AFO. His blood sugars also remain relatively well controlled below 150 consistently. He also continues to apply Kerasal to the associated callus daily. 11/20/[address] Nice. The patient's been feeling unwell the past week and feels he may have lost as much as 10 lbs due to poor oral intake. Otherwise he does not report any new problems regarding his right 1st MTPJ plantar diabetic ulcer. 11/07/[address] Nice. The patient reports only scant drainage from the right plantar diabetic foot ulcer. He's been offloading as recommending with a walker and is awaiting a approval for an articulating AFO. His blood sugars remain mostly well controlled below 150. 10/31/14 Seen by Jean-Pierre Pinto PA-C. The patient feels he has reached another plateau with regard to his wound healing. His right plantar diabetic ulcer continues to drain and has not improved recently. He is wearing his brace and reports compliance with offloading. 10/21/[address] Nice. The patient reports only scant drainage from his right 1st plantar surface MTPJ diabetic foot ulcer. He continues to offload with a frame walker and his blood sugars are moderately well controlled with most below 150. 10/14/[address] Nice. The patient does not report significant drainage from the right 1st plantar MTPJ ulcer. Of note, when discussing his blood sugars he mentions he's on both 70/30 insulin as well as Lantus and he frequently has blood sugars in the 150-200 range. 10/07/[address] Nice. The patient reports some modest drainage from the right 1st MTPJ plantar ulcer but no pain, erythema, or swelling. His blood sugars are mostly below 150 and he offloads with his AFO. 09/30/14 Seen by Jean-Pierre Pinto PA-C. The patient reports continued compliance with his AFO and he is trying to offload. He is scheduled now with PT for gait training and knee strengthening. He reports his knee is still sore at times and he feels unstable at times when using his offloading devices and AFO. 09/23/[address] Nice. The patient reports only minimal drainage from the right plantar 1st MTPJ ulcer. 09/16/14 Seen by Jean-Pierre Pinto PA-C. The patient continues to use his AFO, offloading shoe, knee scooter and frame walker to offload his wound. 09/09/14 Seen by Jean-Pierre Pinto PA-C. The patient has been wearing his AFO and offloading shoe together, with the added padding as designed by Sahra BOYD of [facility] [employer]. He reports that he feels unsteady and that his knee has felt strained and he discontinued using the brace as he is concerned that he has, or will, re-injure his right knee. He also is having difficulty using his knee scooter with the brace. One year ago , while attempting to offload his foot he did injure his knee and required physical therapy to recover. 08/19/14 Seen by Jean-Pierre Pinto PA-C. The patient's weight is down 10 lbs from his previous visit. His twice daily naproxen has been discontinued by his PCP in an effort to reduce his lower extremity edema. 08/15/14 Seen by Jean-Pierre Pinto PA-C. The patient continues to have weight fluctuations and large amounts of weight gain in short periods of time despite increased diuretic usage. 08/04/14 Seen by Jean-Pierre Pinto PA-C. The patient has been taking his Levaquin and again reports to the clinic with a low grade fever. He reports nearly daily application of Kerasal and his weight and edema have been stable on a higher dose of diuretics. Blood sugars remain stable on his current diabetic medications. 07/21/14 Seen by Jean-Pierre Pinto PA-C. The patient does not report fever, chills or URI symptoms. His wound drainage has been stable. 07/16/[address] Nice. The patient reports persistent but minimal drainage from the right foot plantar ulcer and continues to offload with a walker at all times. His blood sugar are mostly below 150 with a few around 170 the past few days. 07/01/14 The patient reports that he has gained 8lbs in 8 days. Denies SOB. Does not report fever or chills. 06/23/[address] Nice. The patient continues to offload with a knee scooter and walker at all times. He does not report significant drainage from the right plantar foot ulcer. 06/20/[address] Nice. The patient has been offloading his right foot ulcer with a walker and reports less drainage over the past 2 days. He's now off of antibiotics and his blood sugars remain well controlled below 150. 06/11/[address] Nice. The patient reports persistent drainage from the right foot plantar 1st MTPJ ulcer and he completed his course of doxycycline which was started for a MRSA positive culture from the ulcer site. His blood sugars have also been a bit elevated above 150 recently. He does not report fever or chills however. 06/04/14 The patient reports difficulty in offloading his wound due to inability to use crutches due to poor balance. He find the wheelchair difficult to use and his knee scooter is not rated for his weight. He denies fever, chills or URI symptoms. 05/28/14 The patient's been attempting to offload with a knee scooter but is concerned it may not be appropriate or stable based on his weight. He does not report increased drainage from he right plantar 1st MTPJ ulcer and his blood sugars remain well controlled below 120. 05/21/14 The patient reports only minimal sanguinous drainage from his right foot plantar ulcer and has been offloading it by minimizing his walking. He's also completed a course of doxycycline that was given for a coag negative staph wound culture from the ulcer. He states his blood sugars are consistently below 120 and does not report hypoglycemia. 05/13/14 The patient reports minimal drainage from his right foot plantar ulcer. His recent wound culture from the site returned coag negative Staph and Diptheroids. 05/02/14 The patient reports less drainage from the right plantar foot ulcer and continues to off loading by minimizing walking and wearing a post-op shoe. 04/29/14 The patient continues to wear his surgical boot with the cutout for his right foot plantar diabetic ulcer. He reports no increase in drainage. 04/25/14 The patient reports minimal bloody drainage on the right foot plantar ulcer dressing that was placed yesterday. He does not report any drainage from the previously healed lateral foot ulcer. His edema in the right leg persists despite wearing compression stockings daily and his blood sugars remain well controlled below 120 with his last A1c approx 2 months ago at 7.4. 04/22/14 The patient reports no increase in drainage from his wounds today. He has been faithfully wearing his orthopedic boot with the cut-out area around his 5th MT ulcer. 04/15/14 The patient reports no increase in drainage from his wounds today. He reminds me that a TCC was the cause of his 5th MT ulcer and he is not excited about trying a TCC again. He is interested in HBOT if it will be beneficial to his wounds. 04/09/14 The patient reports increased drainage from his right 5th MT ulcer and feels his surgical boot he's been wearing for off loading may have caused pressure to the area. His blood sugars have improved and he also reports a 5 lb weight loss after doubling his dose of lasix over the past week. Of note, he did not liaise with his PCP prior to doing this. 04/04/14 The patient states that he was walking a bit more than usual yesterday but notes some sanguinous drainage on his plantar 1st MTPJ dressing for the past few days. He's also put on 7 lbs in the past week and feels his legs are more swollen than usual. He does not report chest pain, shortness of breath, or orthopnea. His blood sugars are also up a bit around 180. He's compliant with both his diabetes regimen and his diuretic therapy. 03/28/14 The patient reports no increased drainage or other complications from his right foot diabetic ulcers. 03/21/14 The patient reports minimal drainage from his right foot diabetic ulcers. He continues to minimally weight bear using a surgical boot and a walker. 03/14/14 The patient does not report increased drainage or other new issues regarding his right 5th MTPJ and right 1st MTPJ plantar ulcers. His blood sugars remain more elevated than usual with some between 150 and 180. 03/07/14 The patient reports no fever or increased right foot wound pain or drainage. 02/28/14 The patient reports that his blood sugar this morning is a bit elevated around 160 but has mostly been below 140 over the past few days. He's been off antibiotics for 3 days now and reports modest drainage from the right 5th MT ulcer while dressing changes are being done every two days. 02/24/14 The patient does not report any new issues regarding his right foot ulcers including increased drainage, fever, or chills. He completed his course of doxycycline yesterday. 02/17/14 The patient reports moderate yellow drainage from the right foot 5th MTPJ ulcer. He's completed a course of doxycycline and does not report fever or chills but states his blood sugars remain higher then normal in the 170's. His wound culture was positive for Enterobacter and his ESR was elevated at 41 and CRP at 2.7. 02/06/14 The patient does not report increased drainage from the right 5th MTPJ ulcer nor does he report fever or pain. He continues to off load with a walker and minimizing walking. He continues on doxycycline which was started empirically at his last visit and his culture has since grown Enterobacter which should be susceptible to doxy based on sensitivities. His xray of the foot was not concerning for osteomyelitis however his ESR and CRP are both moderately elevated. He also feels his legs are more swollen than usual and he continues to take his lasix as scheduled. 02/03/14 The patient does not report fever, chills, or pain in the right foot however when the TCC was removed today he's noted to have a sizable increase in the diameter and depth of what was a small 5th MTPJ ulcer. 01/14/14 The patient reports no new problems regarding is right diabetic foot ulcer. 12/31/13 The patient reports minimal serous drainage from his right 5th MTPJ ulcer and states he continues to off load his foot as much as possible. He does not report pain or drainage from the site of his right 1st MTPJ ulcer. 12/19/13 The patient tolerated with TCC without any complaints but there appears to be a small area of erythema over the right 5th MTPJ. He notes his blood sugars are typically below 120 and his A1c last week was 7.4. 12/13/13 The patient has no complaints regarding his TCC nor his plantar ulcer. 12/11/13 The patient returns for placement of a TCC today. He does not report any new problems regarding is plantar ulcer. 12/03/13 The patient states his plantar ulcer drainage is stable and he's continued to not use a cut-out foam doughnut over the ulcer. 11/26/13 The patient has kept the foam dressing in place from the last visit and has not used a cut-out foam dressing which we felt caused some deterioration of the foot ulcer. He has some mild drainage but no pain. 11/22/13 The patient returns for review of his plantar ulcer and callus that seems to be deteriorating despite an adjustment to his boot and off loading measures. The patient reports his callus accumulation is in spite of daily kerasal applications. Patient reports a new small wound on the left second toe. Josue states that it might be related to the brace. Patient had brace modified to help off load. 11/06/13 Josue states he was able to schedule with the prosthetic doctor tomorrow at noon. He reports no new problems or concerns. He also says that he is done with physical therapy since yesterday as insurance will not cover it any longer. 10/31/13 The patient reports he received his dressing supplies. Dressings changes are going well and no new problems are reported. He saw his film mounter, Dr. Solitario, on Monday for a check up and had and x-ray of the foot. 10/24/13 Josue reports he has been staying off of his feet as much as possible. He has been changing the dressing as ordered and states there has been just a small amount of drainage. He recently ran out of his dressings and will need more ordered or the balance sent home with him. 10/17/13 Patient states he has no new problems or concerns. He did have a small increase in drainage the other day but he had walked more than normal the day before. 10/09/13 Josue states he has no new issues. Dressing changes are going well. 10/02/13 Josue states there have been no new issues with dressing changes. They have been changed once since his last visit. No complaints of pain with the wound. 09/20/13 Josue was discharged from wound care September 05. States that he has been using pumice stone on callus area where had previous wound and may have been too aggressive. Also has been on feet more and having increase in lower extremity edema. Continues to wear the tetragrip F he had received in the clinic 6 hours per day but has not ordered any yet. 09/27/13 Patient states that there have been no issues with using the tetra buckle inspector. Asking about getting compression stockings from drug store for continued use. 09/05/13 Patient states he has set up physical therapy for the problems with his knee. He starts these treatments on 09/11. There has been no new issues with his wound and he changes the dressings about every two days. He reports little to no drainage. 08/06/13 States no new problems with wound area. Been using kerosol daily. 08/19/13 Patient states he twisted his knee a week ago, and it is effecting his walk slightly. He also complains of more edema in his legs, and has an appointment with his PCP tomorrow regarding the issue. No new problems or concerns with his wound. No new problems or concerns. Patient states he changed the dressing a few times this last week. Saw Dr. Solitario this past week for check up with no change o his management. 07/26/13 The patient has had new brace for one week and so far it is working out well. No other complaints at this time. 07/18/13 Patient got brace for foot and leg yesterday. No problems or concerns. 07/11/13 No problems or concerns. Changed dressing twice since last visit 07/04/13- Pt went to his PCP and his lasix were increased from 20mg to 40mg. He states his edema has decreased since then. Pt's diabetic foot brace (decreases lateral movement to reduce pressure on the sides of his feet) will arrive in about another week. 06/20/13- Pt reports increased edema in his feet for the last week, he has been walking more, but also sitting with his feet down more. With the increase in exercise he states his back has been hurting. On Sunday 06/18 pt went to [facility],and had his ankle brace fitting. 05/31/[address] Green this am. Changed dressing twice this week. Saw pigment pumper (in [place]) on Monday. Considering ankle brace 05/24/13 states started walking program at 5 minutes at a time and taking the bus to clinic apt. 11/08/12 Pt is changing dressing every two days. Is concerned about the edema to the left leg that had the cellulitis. States it is warm. 11/15/12 patient has been having more nerve pain. He has been changing his dressing either every day or every other day. 11/22/12- Patient continues to change dressing about every day. No problems noted. Patient changing dressing about q o day. Thinks wound is less deep. 12/07/12 Pt only changed dressing twice since last visit. No concerns or problems. 12/18/12 When cleaning wound was able to aspirate large purlent sero-sang fluid from site. Pt states he feels it was doing better. 12/24/12 Decreased drainage and pt states he feels the wound is doing well. 12/31 Pt states he has had decreased draiange from wound. Pt denies pain. 01/07/13Pt states the kerasol didn't really do much, but admits he was only applying it every other day and is not sure what his expectations should be. He believes he may have bumped a toe on the left foot and has been concerned about some bruising there but admits it is getting better. Still does not have his new shoes and says he is exploring other options like disability. 01/21/13 feeling well since last visit. feels he may have bumped third toe so wants it to be seen. Level 2- 3 neuropathic pain in right foot 02/27/12 Patient changing bandaid on foot and applying kerasol every three days. Patient got new PCP and saw him yesterday. Patient states things are going well with the wound. 03/12/[address] Green for edema and will see him tomorrow for follow up.03/25/13 states has drainage from bottom of foot. concerned about new wounds Sates he changes dressing every 2 days. Changed this AM as it came off. Using Ca alginate and foam. States no drainage last night 04/19/13 changes dressing every 2-3 days. no problem. Has appt with Dr. Solitario 04/30/13 and new shoes have arrived. To be fitted next week 04/26/13 Is wearing new shoes and states they are working well.Changed dressing twice this week 05.03.[address] Solitario last week. will see again in [address] Green started antibiotic for sinus infection States sinuses not a lot better. Has started Lakshmi D, helping some. States wound about same. Changing dressing 2 x this week as dressing came off. States added collagen one time. Past Medical History This information was obtained from the patient Patient has a medical history of: Left lower extremity cellulitis - 10/15/2012 Diabetic foot ulcer - 09/27/2013 (Hernandez grade 2; right plantar surface; Hernandez grade III (Enterobacter positive wound culture 02/03/14), lateral right 5th MTPJ originally dx 12/24/13; MRSA positive culture 06/04/14 ) Chronic venous hypertension Type II Diabetes Hypertension Morbid Obesity Kidney Stones Hx MRSA Diabetic neuropathy Hallux valgus (right 1st toe) UTI (hospital admit) Cellulitis of legs (June and September 2012- hospital admit) Cataract surgery (10/13/15) Diabetic Neuropathy Complaints and Symptoms This information was obtained from the patient Patient complains of: General Notes: I have reviewed and concur with the Review of Systems and Past Family Social History documents completed by the clinician, I have reviewed and concur with the Wound Assessment document completed by the clinician Cardiovascular (Central/Peripheral): Lower extremity (leg) swelling Integumentary (Hair/Skin/Nails): Open Sore Musculoskeletal: Deformities, Muscle Weakness Neurological: Abnormal Gait, Loss of Protective Sensation, Tremors Prior Wound History: Bleeding, Drainage Patient denies complaints or symptoms related to: Cardiovascular (Central): Irregular heart beat Cardiovascular (Central/Peripheral): Lower extremity (leg) resting pain Constitutional Symptoms (General Health): Chills, Fever, Marked Weight Change Ear/Nose/Mouth/Throat: Hearing Loss / Aid Gastrointestinal (GI): Nausea / Vomiting Hematologic/Lymphatic: Bleeding / Clotting Disorders, Bleeding Tendency Musculoskeletal: Assistive Devices Prior Wound History: Erythema, Malodor, Pain Psychiatric: Memory Loss Respiratory: Oxygen Use, Shortness of Breath OBJECTIVE Constitutional BP elevated; Afebrile; Alert and in no distress. Well developed. Alert. Clean appearing.. Height/Length: 71 in (180.34 cm), Weight: 357.7 lbs (162.59 kgs), BMI: 49.9, Temperature: 98 ?F (36.67 ?C), Pulse: 84 bpm, Respiratory Rate: 18 breaths/min, Blood Pressure: 142/80 mmHg, Capillary Blood Glucose: 162 mg/dl, Pulse Oximetry: 99 %. Vital Signs Notes: Glucose per patient Gastrointestinal (GI): Obese. Nondistended.. 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 Integumentary (Hair, Skin) No periwound erythema, warmth, or significant drainage. No periwound rashes appreciated or noted otherwise.. Refer to appropriate clinician wound documentation for this visit; right foot ulcer extends to subcut with base partially covered with pink granulation, remainder fibrin and slough. Significant amount of callus in the periulcer area. Wound #6 Right, Plantar Foot is a chronic Hernandez Grade 2 Diabetic Ulcer and has received a status of Not Healed. Subsequent wound encounter measurements are 0.4cm length x 0.5cm width x 0.2cm depth, with an area of 0.2 sq cm and a volume of 0.04 cubic cm. No tunneling has been noted. No sinus tract has been noted. No undermining has been noted. There is a small amount of serosanguineous drainage noted which has no odor. The patient reports a wound pain of level 0/10. The wound margin is callus. Wound bed has Yes epithelialization, No eschar, No slough, Yes pink, firm granulation. The periwound skin moisture is normal. The periwound skin color is normal. The periwound skin exhibited: Callus. The periwound skin did not exhibit: Brawny Induration, Edema, Excoriation, Induration, Crepitus, Fluctuance, Friable, Rash. The temperature of the periwound skin is WNL. Periwound skin does not exhibit signs or symptoms of infection. Local Pulse is Palpable. Neurological: Cranial nerves grossly intact with symmetric function normal by informal observation.. 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 A skin/ subcutaneous tissue level surgical debridement with a total area debrided of 0.2 sq cm was performed by Stephen Nice MD. Subcutaneous was removed along with devitalized tissue: callus, exudate, and slough. The following instrument(s) were used: curette. Pain control was achieved using 4% Lido. A time out was conducted prior to the start of the procedure. A minimal amount of bleeding was controlled with silver nitrate. The procedure was tolerated well with a pain level of 0 throughout and a pain level of 0 following the procedure. Post Debridement Measurements: 0.4cm length x 0.5cm width x 0.3cm depth; with an area of 0.2 sq cm and a volume of 0.06 cubic cm; Additional Information Muscle fascia or bone removed and sent to pathology?: No PLAN Wound Orders: Wound #6 Right, Plantar Foot Anesthetic Topical Xylocaine to wound bed. - In clinic only. Cleanser Cleanse Wound: - Normal saline and gauze. May Shower. - Do not get wound wet with tap water. Use cast protector when showering. Topical Treatments Moisturizing lotion to surround skin. - Kerasal to callus. Dressings Cover and secure with: - Foam (or may use telfa) and hypafix tape. Change Dressing: - Every other day. Additional Orders: Off-Loading Keep weight off: - Right foot as much as possible. Use Knee scooter when able. Use/Wear when Walking: - Offloading shoe. Compression/Edema Control Elevation of leg(s) above the level of the heart when sitting. Avoid prolonged standing in one place. - Please avoid standing or walking for long periods of time. Knee-high gradient compression stockings. - Tetragrip F stockings to both legs. On in the morning and off at night. Follow-Up Appointments Return Appointment: - - One week Other information: If you develop fever, chills, increased pain, drainage, redness or swelling please call our office. If after hours, respond to the ER. Should you experience any significant changes in your wound(s) or have any questions regarding your home care instructions please contact the wound center @ [phone]. If after hours, contact your primary care physician or go to the hospital emergency room. Scribing Attestation I attest, as the nurse, that I scribed these orders for the physician. I've reviewed the clinician's documentation and agree with the evaluation and plan as written. In addition, the patient's ulcer demonstrates evidence of non-viable devitalized tissue which will continue to benefit from sharp debridement to help promote granulation and expedite healing. Electronic Signature(s) Signed By: Date: Stephen Nice MD 11/15/2017 13:52:56 Entered By: Stephen Nice on 11/15/2017 13:17:42
== END ==
PROVIDERS: PCP Family Medicine; Visit Provider Internal Medicine
DX: E11.621 Type 2 diabetes mellitus with foot ulcer (principal); L97.512 Non-pressure chronic ulcer of other part of right foot with fat layer exposed
CPT/HCPCS: 11042

== ENCOUNTER → 2017-11-21 09:18 | Outpatient (CLI) | payer MEDICARE, OTHER, SELFPAY ==
--- NOTE | 2017-11-21 | OV.WND_ITS ---
Progress Note Details Patient Name: Josue Mesa Patient Number: [id number] PatientPatientDate: 11/21/2017 Clinician: Yajaira Alvarez Clinician Cosigner: Digna Diallo Physician / Fruit [employer] Farmworker: Stephen Nice SUBJECTIVE Chief Complaint This information was obtained from the patient Diabetic ulcer to right plantar foot. Allergies Augmentin (Severity: Mild, Reaction: nausea) HPI This information was obtained from the patient 11/21/17. Seen by Dr. Nice. The patient does not report increased drainage associated with the chronic right 1st MTPJ diabetic ulcer since his last visit however he does report a new wound, possibly a laceration, on the right 5th toe was noticed on Monday when it began to bleed. He does not recall injuring the toe however nor does he report pain. 11/14/17. Seen by Dr. Nice. The patient does not report increased drainage associated with the chronic right 1st MTPJ diabetic ulcer since his last visit. 11/07/17. Seen by Dr. Nice. The patient does not report increased drainage associated with the chronic right 1st MTPJ diabetic ulcer since his last visit. 10/31/17. Seen by Dr. Nice. The patient does not report increased drainage associated with the chronic right 1st MTPJ diabetic ulcer since his last visit. 10/27/17. Seen by Dr. Nice. 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 10/24/17. Seen by Dr. Nice. The patient does not report increased drainage associated with the chronic right 1st MTPJ diabetic ulcer since his last visit. 10/20/17. Seen by Dr. Nice. The patient does not report increased drainage associated with the chronic right 1st MTPJ diabetic ulcer since his last visit. 10/17/17. Seen by Dr. Nice. The patient does not report increased drainage associated with the chronic right 1st MTPJ diabetic ulcer since his last visit. He continues to wear his offloading shoe as recommended which has been modified to add a layer of foam that's had a recess cut out at the site of the ulcer. 10/13/17. Seen by Dr. Nice. The patient does not report increased drainage associated with the chronic right 1st MTPJ diabetic ulcer since his last visit. 10/10/17. Seen by Dr. Nice. The patient does not report increased drainage associated with the chronic right 1st MTPJ diabetic ulcer since his last visit. 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 10/03/17. Seen by Dr. Nice. The patient does not report increased drainage associated with the chronic right 1st MTPJ diabetic ulcer since his last visit which was 10 days ago. 09/22/17. Seen by Dr. Nice. The patient's xray of his right foot showed a 1st MTPJ intra- articular fracture and he was seen by Dr. Solitario who recommended continued offloading with the forefoot surgical offloading shoe but no further intervention at this time. He does not report pain in the foot nor significant drainage associated with the plantar 1st MTPJ diabetic foot ulcer since his last visit. 09/19/17. Seen by Dr. Nice. The patient reportedly fell on Monday injuring his right foot. He was seen by his PCP yesterday who felt it may have been infected and he was started on Keflex. He does not report pain in the foot and is able to bear weight as usual. He also does not report increased drainage associated with the chronic right 1st MTPJ diabetic ulcer since his last visit. 09/15/17. Seen by Dr. Nice. The patient arrived today feeling quite week and shaky and states he was seen in the ER earlier this morning for similar complaints and subsequently discharged to his [facility]. His CT scan and labs were unremarkable however he was unable to leave a urine sample for analysis at that time. His symptoms persist during our visit however there's no confusion or other acute complaints. He's also finished his course of Bactrim that was treating the recent right diabetic foot ulcer infection and he does not report increased drainage for pain at the ulcer site. 09/12/17. Seen by Dr. Nice. The patient does not report increased drainage associated with the chronic right 1st MTPJ diabetic ulcer since his last visit. He also continues on doxycycline for the recent Staph cultured from the ulcer and he does not report adverse side effects. 09/08/17. Seen by Dr. Nice. The patient's now on doxycycline for the recent coag negative Staph culture taken from the chronic right 1st MTPJ diabetic ulcer. He does not report adverse side effects nor increased drainage or pain associated with the ulcer. 09/05/17. Seen by Dr. Nice. The patient does not report increased drainage associated with the chronic right 1st MTPJ nor right 1st toe dorsal diabetic ulcers since his last visit however the nurse reports increased bloody drainage on the dressing and increased maceration and callus along the distal margin of the ulcer. His recent wound culture grew coag negative Staph and he's not currently on antibiotics. 09/01/17. Seen by Dr. Nice. The patient does not report increased drainage associated with the chronic right 1st MTPJ nor right 1st toe dorsal diabetic ulcers since his last visit. 08/29/17. Seen by Dr. Nice. The patient does not report increased drainage associated with the chronic right 1st MTPJ diabetic ulcer since his last visit. He does complain of progressive upper extremity tremors that are most noticeable in the morning and evening and may occur after he takes his metformin. He does not report low blood sugars and he'll bee seeing his PCP today to discuss this. 08/25/17. Seen by Dr. Nice. The patient reports being more active and on a boat over the holiday which was no conducive to using his knee scooter. He feels the right 1st MTPJ ulcer has deteriorated and he has a new ulcer over the dorsum of the right 1st toe now. 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 08/22/17. Seen by Dr. Nice. The patient was seen at [facility] and they provided a new orthotic insert to help better offload the chronic right 1st MTPJ diabetic ulcer while he's wearing his surgical, forefoot offloading show. He does not report increased drainage or pain associated with the ulcer and is using a knee scooter also to help offload. He has a severe valgus deformity which results in heavy callus formation and has required twice weekly debridements which has been effective in gradually promoting the ulcer to heal. He's also been applying topical gentamicin to the ulcer base to treat the recent coag negative Staph culture that was taken due to increased drainage. 08/18/17. Seen by Dr. Nice. The patient's wound culture taken from the chronic right foot diabetic ulcer at his last visit grew an intermediately resistant coag negative Staph and his dressing change and application of gentamicin is taking place only every 2-3 days. He does not report pain in the foot but staff report his dressing as being 'bloody' today. 08/15/17. Seen by Dr. Nice. The patient reports what may be increased drainage on his right foot diabetic ulcer dressings as mentioned by his urgent care technician in assisted living. He's using a knee scooter as recommended and does not report pain in the foot. He's also asking when it will be appropriate to have his right foot orthotic adjusted in his diabetic shoe although he's currently wearing a forefoot offloading shoe at all times. 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 08/11/17. Seen by Jean-Pierre Pinto PA-C. The patient reports stable drainage from his right foot diabetic ulcer. Again his blood sugars have been above 150 since his last visit. 08/08/17. Seen by Jean-Pierre Pinto PA-C. The patient reports no increase in drainage from his right foot diabetic ulcer. His blood sugars this week have reportedly been mostly above 150. 08/04/17. Seen by Dr. Nice. The patient does not report increased drainage associated with the chronic right plantar foot diabetic ulcer since his last visit and he's offloading appropriately as recommended. He also was seen by Dr. Solitario, podiatry, who discussed possible surgical options to address the severe right 1st toe valgus deformity that's complicating the ulcer and contributing to heavy periculcer callus formation however there's no plan of intervention at this time. 08/01/17. Seen by Dr. Nice. The patient does not report increased drainage associated with the chronic right plantar foot diabetic ulcer since his last visit and he's offloading appropriately as recommended. 07/28/17. Seen by Dr. Nice. The patient does not report increased drainage associated with the chronic right plantar foot diabetic ulcer since his last visit and he's offloading appropriately as recommended. We've increased his visits to twice weekly due to the very heavy callus formation that's contributing to the refractory nature of the ulcer. 07/25/17. Seen by Dr. Nice. The patient does not report increased drainage associated with the chronic right plantar foot diabetic ulcer since his last visit and he's offloading appropriately as recommended. Kerasal is not being applied to the periulcer callus and his visits have been decreased to once weekly over the past few weeks while the ulcer has been improving. 07/18/17. Seen by Dr. Nice. The patient does not report increased drainage associated with the chronic right plantar foot diabetic ulcer since his last visit and he's offloading appropriately as recommended. 07/11/17.Seen by Dr. Nice. The patient has been wearing his offloading shoe and using a knee scooter as recommended and does not report significant drainage associated with the chronic right plantar foot diabetic ulcer since his last visit. 07/04/17. Seen by Dr. Nice. The patient has been wearing his offloading shoe as recommended and does not report significant drainage associated with the chronic right plantar foot diabetic ulcer since his last visit. 06/30/17. Seen by Dr. Nice. The patient has been wearing his offloading shoe as recommended and does not report significant drainage associated with the chronic right plantar foot diabetic ulcer since his last visit. 06/27/2017. Seen by Dr. Nice. The patient has been wearing his offloading shoe as recommended and does not report significant drainage associated with the chronic right plantar foot diabetic ulcer since his last visit. His blood sugars are also mostly below 100 now and he's using his knee scooter as well to further optimize offloading. 06/23/2017. Seen by Dr. Nice. The patient does not report pain nor increased drainage associated with the chronic right plantar foot diabetic ulcer since his last visit. He is wearing his offloading shoe as recommended now and his blood sugar control has improved with some below 200. 06/20/2017. Some by Dr. Nice. The patient is not report increased drainage position with chronic right plantar foot diabetic ulcer since last visit. He is now clindamycin for the resistant Staphylococcus haemolyticus positive culture that was taken to the last visit. His blood sugars continued to be elevated and or over 300 earlier this morning despite having his Lantus dose increased recently. He is also wearing his diabetic shoes but not an offloading surgical shoe as I have been recommending. 06/16/17. Seen by Dr. Nice. The patient does not report increased drainage associated with chronic right plantar foot diabetic ulcers since his last visit. His recent wound culture grew a resistant coag negative staph organism. He also met with his primary care provider, Dr. Green, to increase his dosing of Lantus and plans to work with him on dietary measures to help gain better control of his elevated blood sugars. 06/13/17. Seen by Dr. Nice. The patient's blood sugars again are over 300 today and his appointment with his primary care provider to address this. He does not report any acute changes regarding the chronic right plantar foot diabetic ulcer and is using his knee scooter to help facilitate offloading as much as possible. 06/09/17. Seen by Dr. Nice. The patient does not report significant drainage associated with the chronic right plantar foot diabetic ulcer since his last visit. 06/06/17. Seen by Dr. Nice. The patient does not report significant drainage associated with the chronic right plantar foot diabetic ulcer since his last visit and he's lost another 7 lbs since increasing his dose of Lasix due to abnormal weight gain and significant bilateral lower extremity edema. 06/02/17. Seen by Dr. Nice. The patient does not report significant drainage associated with the chronic right plantar foot diabetic ulcer since his last visit. His increase his dose of Lasix and has lost 7 pounds over the past 3 days. This is been done due to the significant increase in leg swelling over the past 2 weeks. 05/30/17. Seen by Dr. Nice. The patient does not report increased drainage associated with chronic right plantar foot diabetic ulcer since his last visit however he does feel that the right foot and leg are swelling considerably over the past few days. We note a 4 pound weight gain since his last visit on Monday and he states is taking his diuretic as prescribed. 05/26/17. Seen by Dr. Nice. The patient does not report increased drainage associated with chronic right plantar foot diabetic ulcers since his last visit. His culture grew a somewhat resistant coag negative staph and he is not currently on antibiotics. 05/23/17. Seen by Dr. Nice. Staff reports some increased drainage on his dressings covering the chronic right plantar foot diabetic ulcer today. His blood sugar is again over 300 and he states he is eating rice and potatoes trying to cut back. He continues offload with his knee scooter as recommended and does not report pain or any other acute ulcer related issues today. 05/19/17. Seen by Dr. Nice. The patient does not report increased pain or drainage associated with chronic right plantar foot diabetic ulcer since his last visit. He is using his knee scooter as recommended and has had significant problems with heavy callus at the site due to a severe right first toe valgus deformity. He is now attending clinic twice weekly for debridement of the ulcer and complicating callous. 05/16/17. Seen by Dr. Nice. The patient does not report increased drainage or pain associated with chronic right plantar foot diabetic ulcer since his last visit. Of note, the patient's blood sugar as 271 today and his A1c was 9.8 in March. 05/12/17. Seen by Dr. Nice. The patient does not report increased pain or drainage associated with chronic right plantar foot diabetic ulcer since his last visit. He is using his knee scooter to help offload the site which is particularly important based on patient's morbid obesity coupled with his severe first MTPJ valgus deformity. 05/09/17. Seen by Dr. Nice. The patient does not report increased drainage or pain associated with the chronic right plantar foot diabetic ulcer since his last visit. He states his blood sugars continue to be above 200 consistently although are improving with compliance to a lower carbohydrate type diet. He was started on metformin about a month ago he complains of some intermittent upper extremity weakness since then and will be discussing this with his primary care provider. He is also awaiting his new diabetic shoes that are being adjusted to help accommodate for his severe right first toe valgus deformity. 05/02/17. Seen by Jean-Pierre Pinto PA-C. The patient reports stable drainage from his right 1st toe ulcer and blood sugars continue to be above goal. 04/25/17. Seen by Jean-Pierre Pinto PA-C. The patient reports his blood sugars have been above 150 this week. He does not report increased drainage from his right 1st toe diabetic ulcer. 04/18/17. Seen by Dr. Nice. The patient does not report increased drainage associated the chronic right first toe diabetic ulcers since his last visit. 04/11/17. Seen by Jean-Pierre Pinto PA-C. The patient reports he is developing more calloused areas on his feet and is concerned about new ulcers occurring. His chronic 1st toe diabetic ulcer has been stable. 04/04/17. Seen by Jean-Pierre Pinto PA-C. The patient reports he has not been able to get his blood sugars below 150. Drainage is reportedly decreased from his diabetic foot ulcer. 03/30/17. Seen by Jean-Pierre Pinto PA-C. The patient reports continued high blood sugars, all above 150. Drainage from his ulcer is not increased. 03/23/17. s Seen by Jean-Pierre Pinto PA-C. The patient reports blood sugars above 150 again this week. He is concerned that something must be going on with an infection as he believes his diet has not changed and thus his sugars should be lower. His wound has had stable drainage. 03/15/17. Seen by Jean-Pierre Pinto PA-C. The patient reports he has had some blood sugars above 150 this week. He reports no increase in drainage from his right 1st toe diabetic ulcer. 03/08/17. Seen by Dr. Nice. The patient was discharged from the hospital recently following treatment for cellulitis associated with the chronic right first toe diabetic ulcer. He grew MRSA from the wound culture and was treated with IV vancomycin and is now on Bactrim. He does not report pain nor significant drainage associated with the ulcer nor side effects from antibiotics. 02/23/17. Seen by Dr. Nice. The patient does not report increased drainage associated the chronic right first toe diabetic ulcers since his last visit. The patient also states that he is more active over the holidays and was unable to use his knee scooter at times while walking outside due to safety concerns. 02/08/17. Seen by Dr. Nice. The patient does not report increased drainage associated the chronic right first toe diabetic ulcers since his last visit. He states he is using his offloading shoe when at home and a knee scooter went out. 02/01/17. Seen by Dr. Nice. The patient does not report increasing pain or drainage associated with chronic right first toe diabetic ulcer since his last visit. 01/25/17. Seen by Dr. Nice. The patient does not report increasing pain or drainage associated with chronic right first toe diabetic ulcer since his last visit. 01/18/17. Seen by Dr. Nice. The patient does not report increasing pain or drainage associated with chronic right first toe diabetic ulcer since his last visit. Of note, the patient's blood sugar is over 260 again today and he admits that it's been significantly elevated for a number of weeks. He has an appointment with his primary care provider to discuss this next week. 01/11/17. Seen by Dr. Nice. The patient does not report increasing pain or drainage associated with chronic right first toe diabetic ulcer since his last visit. He states his blood sugars have been running high recently and he is going to follow-up with his primary care provider in the near future to address this. 01/04/17. Seen by Dr. Nice. The patient does not report increased drainage associated with chronic right first foot diabetic ulcers since his last visit. He's also been applying Kersal to the periulcer as recommended. 12/28/16. Seen by Dr. Nice. The patient does not report increased drainage associated with chronic right first foot diabetic ulcers since his last visit. 12/22/16. Seen by Dr. Nice. The patient does not report increased drainage associated with chronic right first foot diabetic ulcers since his last visit. He's not been applying Kersal to the periulcer callus and does not appear to be using his knee scooter at all times to offload the ulcer. 12/15/16. Seen by Jean-Pierre Pinto PA-C. The patient reports he continues to have blood sugars above 150 this week. He recently saw his PCP, they did not alter his diabetic care plan. His visit was a follow up for an ER visit for chest pain which was negative for MA and was thought to be epigastric in origin. His diabetic ulcer of the right foot has not had increased drainage. 12/06/16. Seen by Jean-Pierre Pinto PA-C. The patient reports that he has found his knee scooter and plans to start using it today. He also reports most of his blood sugars have been above 150. Drainage from his ulcer has been stable. 11/25/16. Seen by Dr. Nice. The patient does not report increased drainage associated with chronic right first foot diabetic ulcers since his last visit. He is now on antibiotics for wound infection and does not report adverse side effects. Of note, he is not yet using a knee scooter nor offloading shoe as we recommended last week. 11/18/16. Seen by Dr. Nice. The patient returns to our clinic and presents with recurrence of a right first MTPJ plantar diabetic ulcer. He states it started a couple weeks ago when he was attempting to remove overlying callus at home. He does not report significant drainage or pain associated with the ulcer and is not currently on antibiotics. He also states his recent A1c was 7.8. His blood sugar in clinic today is 250. 01/11/16 Seen by Jean-Pierre Pinto PA-C. The patient reports no drainage from his chronic right 1st MTPJ joint since his last dressing change. 01/04/16 Seen by Jean-Pierre Pinto PA-C. The patient reports minimal drainage from his chronic right 1st MTPJ ulcer. He has recently seen his PCP and his A1c was 7.7. His lower extremity edema, abnormal weight gain and kidney failure are stable with his diuretics recently being adjusted. 12/28/15. Seen by Dr. Nice. The patient does not report significant drainage associated with the chronic right 1st MTPJ diabetic ulcer since his last visit however he does complain of increasing shortness of breath, fatigue, and an 18lb weight gain over the past week despite taking his diuretics as recommended. He does not report chest pain or cough and his blood sugars remain relatively well controlled with most below 150. 12/16/15. Seen by Dr. Nice. The patient does not report significant drainage associated with the chronic right 1st MTPJ diabetic ulcer since his last visit. He's applying kerasal to the surrounding callus as recommended and offloading nearly at all times using his knee scooter. 12/07/15 Seen by Jean-Pierre Pinto PA-C. The patient reports compliance with his new offloading brace and shoe and has seen minimal drainage from his diabetic foot ulcer since his last visit. 11/30/15. Seen by Dr. Nice. The patient does not report significant drainage associated with the chronic right 1st MTPJ diabetic ulcer since his last visit and he's wearing a combined AFO / diabetic shoe system that he feels may be better offloading the ulcer. 11/23/15 Seen by Jean-Pierre Pinto PA-C. The patient reports that he is wearing his new diabetic shoes and inserts. He is continuing physical therapy for gait training and reports continued difficulty with stairs and occasional bouts of dizziness. He reports stable drainage from his chronic right foot diabetic ulcer. 11/16/15 Seen by Jean-Pierre Pinto PA-C. The patient reports stable drainage from his right foot diabetic ulcer. He also reports that his diabetic shoes and inserts are quite old and worn out. He is ambulating with is 4 wheeled walker and is working with PT for gait training. 11/09/15 Seen by Jean-Pierre Pinto PA-C. The patient reports that he is still using a 4 wheeled walker instead of a 4 footed walker. PT is working with him to improve his gait and balance. Drainage from his right foot ulcer has been stable. 11/02/15 Seen by Jean-Pierre Pinto PA-C. The patient reports no increase in drainage from his chronic diabetic foot ulcer. He has had multiple blood sugars above 150 this week. 10/29/15. Seen by Dr. Nice. The patient was recently discharged from [facility] following treatment of sepsis thought to possibly be related to his chronic right 1st MTPJ diabetic ulcer that grew Enterococcus just prior to his admission. He now feels generally weak , has lost 18 lbs following diuresis, and is residing at home where he's minimizing his weight bearing on the right foot. He does not report significant drainage from the ulcer nor pain and states his blood sugars remain mostly around 150. He also continues on levofloxacin and does not report adverse side effects. 10/14/15. Seen by Dr. Nice. The patient report persistent bloody drainage from the chronic right 1st MTPJ diabetic ulcer and he feels the callus has increased significantly since it was last debrided 2 week ago. He does not report fevers or feeling unwell and states his blood sugars are well controlled with most below 150. He's using his AFO when walking nearly at all times to facilitate offloading the significant right 1st MTPJ valgus deformity. 09/24/15 Seen by Jean-Pierre Pinto PA-C. The patient reports that he is no ran out of lasix due to a mix up at the pharmacy and unavailability of his strength/dose of tablets. He continues trying to offload his ulcer with his wheeled walker and notes stable ulcer drainage. 09/17/15. Seen by Dr. Nice. The patient continues to report some bloody drainage from the chronic right 1st MTPJ diabetic ulcer and he's started reducing his activity and continues to use his knee scooter at home to offload the foot. 09/10/15. Seen by Dr. Nice. The patient states he was more active over the past week and notices increased bloody drainage associated with chronic right first MTPJ diabetic foot ulcer. He continues to wear his AFO and states his blood sugars are mostly below 150. 09/03/15. Seen by Dr. Nice. The patient does not report significant drainage associated with the chronic right first MTPJ diabetic ulcer over the past week. He does feel that the callus smaller than on previous visits and is wearing his AFO at all times. Of note, he 's now in doxycycline to treat the recent coag negative Staph cultured from the ulcer at his last visit. 08/27/[address] Nice. The patient reports increase bloody drainage associated with the chronic right foot 1st MTPJ diabetic ulcer and he feels his activity has increased due to physical therapy and increased mobility over the past week. He does not report pain at the ulcer site, fevers, or feeling unwell in general. 08/20/[address] Nice. The patient does not report significant drainage associated with the chronic right foot 1st MTPJ diabetic ulcer over the past week and he's using a knee scooter as much as possible when mobilizing to offload the foot. His blood sugars also remain relatively well controlled with most below 150. 08/13/[address] Nice. The patient does not report significant drainage associated with the chronic right foot diabetic ulcer over the past week and he's offloading using a knee scooter as recommended. His blood sugars remain relatively well controlled with most below 150. 08/06/[address] Nice. The patient reports recurrence of some drainage from the chronic right foot diabetic ulcer over the past few days and states he's been more active with physical therapy. His blood sugars remain well controlled with most below 150 and he's wearing his AFO when away from the house and using a knee scooter most of the time while at home to facilitate offloading. He's also applying Kerasal to the callus in the periwound area as recommended. 07/23/[address] Nice. The patient does not report drainage from the chronic right 1st MTPJ diabetic ulcer over the past week and he's using his new AFO and knee scooter to offload the foot. 07/16/[address] Nice. The patient does not report pain or drainage from the chronic right 1st MTPJ diabetic ulcer and he's wearing his newer AFO while offloading with a knee scooter most of the time. 07/09/[address] Nice. The patient does not report drainage or pain associated with his chronic right foot 1st MTPJ diabetic ulcer and he's been offloading by using a knee scooter when mobilizing. His template maker is present today as well to discuss possible adjustments to his AFO with the goal of reducing callus formation that's in part caused by his significant right 1st toe valgus deformity. He also states his blood sugars remain well controlled below 150 consistently. 07/03/[address] Nice. The patient does not report significant drainage from the chronic right foot diabetic ulcer and he's offloading by using his knee scooter. His blood sugars also remain relatively well controlled around 150 consistently. 06/26/[address] Nice. The patient report some continued bloody drainage from the chronic right 1st MTPJ diabetic ulcer however he does not report associated pain , fevers or feeling unwell. His blood sugars remain consistently below 150 and he's using his walker and knee scooter for offloading as recommended. He's also been actively working with his template maker in hopes of better offloading the ulcer and address his significant callus formation and left 1st MTPJ valgus deformity. 06/19/[address] Nice. The patient does not report pain associated with his chronic right 1st MTPJ diabetic ulcer however he states some bloody drainage persists on the dressings. He does not report fevers or feeling unwell and states his blood sugars are well controlled below 150 consistently and he's using a knee scooter and walker to offload the ulcer when mobilizing. He also does not report pain or drainage associated with the left 2nd toe wound. 06/11/[address] Nice. The patient was recently discharged from [facility] following a fall at home that resulted in a broken rib. Regarding his chronic right 1st MTPJ diabetic ulcer he does not report significant drainage and has been offloading through bed rest and using a knee scooter while at home. His blood sugars also remain well controlled with most below 150. He also reports a new wound on the dorsum of the left 2nd toe that he believes occurred during his fall. He does not report associated pain or significant drainage. 05/28/[address] Nice. The patient reports some increased bloody drainage from the chronic right 1st MTPJ diabetic foot ulcer over the weekend associated with a new 'soft' area along the distal margin. He's been more active the past the past few days but states he's using his knee scooter to offload at all times. His blood sugars also remain well controlled with most around 120 and he's no longer on antibiotics. He also continues to wear his old AFO but states there was a recent adjustment of a cut out lined with 'soft' plastic in the area of the ulcer. 05/21/[address] Nice. The patient report less drainage from the chronic right foot 1st MTPJ diabetic ulcer over the past week. He's completed his course of doxycycline and he continues on fluconazole for the recent Alma Delia positive wound culture. He's also reverted back to using his previous AFO while his newer one is adjusted to try to address the recent significant increase in callus formation that's occurred. His blood sugars also remain well controlled under 150 consistently and his recent episodes of hypoglycemia has resolved with an adjustment of his insulin regimen. 05/14/[address] Nice. The patient reports less drainage on the dressings covering the chronic right 1st MTPJ diabetic ulcer since starting doxycycline for a coag negative Staph wound culture along with fluconazole for the alma delia positive culture. His blood sugars remain well controlled below 120 and his insulin has been decreased due to the recent episodes of hypoglycemia. His diuretic has also been decreased as he's lost considerable water weight over the past month. 05/07/[address] Nice. The patient continues to report modest bloody drainage on the dressing covering the chronic right 1st MTPJ diabetic ulcer and he continues to limit his walking but has not been using a knee scooter or walker around the house to facilitate offloading. His blood sugars remain well controlled mostly below 150. 04/30/[address] Nice. The patient continues to report bloody drainage on his right foot diabetic ulcer dressing and he's feeling a bit unwell in general without reporting specific symptoms. He also continues to have intermittent low blood sugars in the 50-60' s and has not discussed this issue with his PCP recently. He's wearing his AFO daily but admits to having difficulty using his walker at all times due to limited space in his new apartment. 04/27/15 Seen by Jean-Pierre Pinto PA-C. The patient reports nonspecific malaise for the past few days. Last night, he reports feeling to tired, weak and shaky to watch TV and went to bed very early. His malaise has been increasing over the past 1-2 weeks and he has frequently been monitoring his blood sugar. His blood sugars are lower than normal lately but never below 100. He has been reducing his insulin dosing in the past 2 weeks to compensate for the lower numbers. He continues to loose weight while continuing to take Lasix and metolazone. 04/23/[address] Nice. The staff and patient continue to report at least moderate serosanquinous drainage from the chronic right 1st MTPJ diabetic ulcer. His blood sugars have been well controlled over the past week with most below 150. He does report being more active than usual while he's been moving to his new home and he also states he continues to loose weight following a recent increase in his diruetics. His wound culture from the last visit reported heavy Diptheroids and he's not currently on antibiotics. 04/20/15 Seen by Jean-Pierre Pinto PA-C. The patient reports that he has moved house and has been on his feet much more so as a consequence. He reports increased drainage from his right plantar foot diabetic ulcer. In addition he believes he struck it against a hard surface when moving. He has had no significant pain with weightbearing but is insensate in this area. 04/15/[address] Nice. The patient reports continued weight loss, and decreasing leg swelling, since starting metolazone totaling about 20 lbs. He also feels the chronic right 1st MTPJ diabetic ulcer has been draining increasing amounts of sanguinous fluid. His blood sugars remain well controlled with most below 120 and he does not report fever or feeling unwell. 03/25/[address] Nice. The patient states he walked a considerable amount yesterday and now reports some bleeding from the chronic right 1st MTPJ diabetic foot ulcer. He also continues to report increased weight gain and now some shortness of breath when walking short distances. He has a low grade fever today but does not report a cough or feeling unwell otherwise. 03/11/2015 Seen by Jean-Pierre Pinto PA-C. The patient's weight has increased 10 lbs in the past week. He reports increased shortness of breath with exertion. He denies chest pain, jaw, neck, shoulder pain or shortness of breath at rest. He has been compliant with his diuretics. His ulcer drainage has been stable. 03/04/2015 Seen by Jean-Pierre Pinto PA-C. The patient is wearing his newly adjusted AFO and reports an increase in walking since last visit. He was unaware that his temperature was elevated and reports no URI symptoms such as cough or sore throat. 02/24/2015 Seen by Jean-Pierre Pinto PA-C. The patient believes his ulcer has now been draining more despite trying to offload the ulcer. 02/11/[address] Nice. The patient reports less drainage from the chronic right 1st toe diabetic ulcer and he's still waiting for approval for his new AFO. 02/04/[address] Nice. The patient feels the drainage from the right 1st MTPJ ulcer has decreased since last week and he's scheduled to see Dr. Solitario tomorrow to review his foot deformity and recurrent callus formation at the site of the ulcer. 01/30/[address] Nice. The patient returns to clinic and reports recurrence of the recently healed right 1st MTPJ diabetic foot ulcer with new moderate drainage and significant callus formation. He's not yet re-established with Dr. Solitario, podiatry, due to insurance issues and is awaiting approval for an adjustment for his AFO. His blood sugars remain controlled below 150 mostly and he does not report pain in the foot or fevers. 01/12/[address] Nice. The patient does not report drainage from the right 1st toe MTPJ ulcer and he's scheduled to have his new AFO fitted this week. 01/05/[address] Nice. The patient does not report drainage associated with the right 1st MTPJ diabetic foot ulcer however he states he has had some intermittent, very brief 'shooting' pain at the site of the ulcer the past few days. His blood sugars also remain between 120 and 150 mostly. 12/29/[address] Nice. The patient does not report drainage from the chronic right 1st MTPJ diabetic foot ulcer and he offloads using a walker and surgical shoe at all times except for when he wears a slipper around his small apartment. 12/22/[address] Nice. The patient does not report significant drainage from the right 1st MTPJ diabetic foot ulcer and he states his blood sugars are still in the 150 range with some over 180. 12/10/[address] Nice. The patient does not report significant drainage from the right 1st MTPJ diabetic foot ulcer. 12/04/[address] Nice. The patient does not report any drainage from the chronic right 1st MTPJ diabetic foot ulcer and he's still waiting for insurance approval for a custom, articulating AFO. His blood sugars also remain relatively well controlled below 150 consistently. He also continues to apply Kerasal to the associated callus daily. 11/20/[address] Nice. The patient's been feeling unwell the past week and feels he may have lost as much as 10 lbs due to poor oral intake. Otherwise he does not report any new problems regarding his right 1st MTPJ plantar diabetic ulcer. 11/07/[address] Nice. The patient reports only scant drainage from the right plantar diabetic foot ulcer. He's been offloading as recommending with a walker and is awaiting a approval for an articulating AFO. His blood sugars remain mostly well controlled below 150. 10/31/14 Seen by Jean-Pierre Pinto PA-C. The patient feels he has reached another plateau with regard to his wound healing. His right plantar diabetic ulcer continues to drain and has not improved recently. He is wearing his brace and reports compliance with offloading. 10/21/[address] Nice. The patient reports only scant drainage from his right 1st plantar surface MTPJ diabetic foot ulcer. He continues to offload with a frame walker and his blood sugars are moderately well controlled with most below 150. 10/14/[address] Nice. The patient does not report significant drainage from the right 1st plantar MTPJ ulcer. Of note, when discussing his blood sugars he mentions he's on both 70/30 insulin as well as Lantus and he frequently has blood sugars in the 150-200 range. 10/07/[address] Nice. The patient reports some modest drainage from the right 1st MTPJ plantar ulcer but no pain, erythema, or swelling. His blood sugars are mostly below 150 and he offloads with his AFO. 09/30/14 Seen by Jean-Pierre Pinto PA-C. The patient reports continued compliance with his AFO and he is trying to offload. He is scheduled now with PT for gait training and knee strengthening. He reports his knee is still sore at times and he feels unstable at times when using his offloading devices and AFO. 09/23/[address] Nice. The patient reports only minimal drainage from the right plantar 1st MTPJ ulcer. 09/16/14 Seen by Jean-Pierre Pinto PA-C. The patient continues to use his AFO, offloading shoe, knee scooter and frame walker to offload his wound. 09/09/14 Seen by Jean-Pierre Pinto PA-C. The patient has been wearing his AFO and offloading shoe together, with the added padding as designed by Sahra BOYD of [facility] [employer]. He reports that he feels unsteady and that his knee has felt strained and he discontinued using the brace as he is concerned that he has, or will, re-injure his right knee. He also is having difficulty using his knee scooter with the brace. One year ago , while attempting to offload his foot he did injure his knee and required physical therapy to recover. 08/19/14 Seen by Jean-Pierre Pinto PA-C. The patient's weight is down 10 lbs from his previous visit. His twice daily naproxen has been discontinued by his PCP in an effort to reduce his lower extremity edema. 08/15/14 Seen by Jean-Pierre Pinto PA-C. The patient continues to have weight fluctuations and large amounts of weight gain in short periods of time despite increased diuretic usage. 08/04/14 Seen by Jean-Pierre Pinto PA-C. The patient has been taking his Levaquin and again reports to the clinic with a low grade fever. He reports nearly daily application of Kerasal and his weight and edema have been stable on a higher dose of diuretics. Blood sugars remain stable on his current diabetic medications. 07/21/14 Seen by Jean-Pierre Pinto PA-C. The patient does not report fever, chills or URI symptoms. His wound drainage has been stable. 07/16/[address] Nice. The patient reports persistent but minimal drainage from the right foot plantar ulcer and continues to offload with a walker at all times. His blood sugar are mostly below 150 with a few around 170 the past few days. 07/01/14 The patient reports that he has gained 8lbs in 8 days. Denies SOB. Does not report fever or chills. 06/23/[address] Nice. The patient continues to offload with a knee scooter and walker at all times. He does not report significant drainage from the right plantar foot ulcer. 06/20/[address] Nice. The patient has been offloading his right foot ulcer with a walker and reports less drainage over the past 2 days. He's now off of antibiotics and his blood sugars remain well controlled below 150. 06/11/[address] Nice. The patient reports persistent drainage from the right foot plantar 1st MTPJ ulcer and he completed his course of doxycycline which was started for a MRSA positive culture from the ulcer site. His blood sugars have also been a bit elevated above 150 recently. He does not report fever or chills however. 06/04/14 The patient reports difficulty in offloading his wound due to inability to use crutches due to poor balance. He find the wheelchair difficult to use and his knee scooter is not rated for his weight. He denies fever, chills or URI symptoms. 05/28/14 The patient's been attempting to offload with a knee scooter but is concerned it may not be appropriate or stable based on his weight. He does not report increased drainage from he right plantar 1st MTPJ ulcer and his blood sugars remain well controlled below 120. 05/21/14 The patient reports only minimal sanguinous drainage from his right foot plantar ulcer and has been offloading it by minimizing his walking. He's also completed a course of doxycycline that was given for a coag negative staph wound culture from the ulcer. He states his blood sugars are consistently below 120 and does not report hypoglycemia. 05/13/14 The patient reports minimal drainage from his right foot plantar ulcer. His recent wound culture from the site returned coag negative Staph and Diptheroids. 05/02/14 The patient reports less drainage from the right plantar foot ulcer and continues to off loading by minimizing walking and wearing a post-op shoe. 04/29/14 The patient continues to wear his surgical boot with the cutout for his right foot plantar diabetic ulcer. He reports no increase in drainage. 04/25/14 The patient reports minimal bloody drainage on the right foot plantar ulcer dressing that was placed yesterday. He does not report any drainage from the previously healed lateral foot ulcer. His edema in the right leg persists despite wearing compression stockings daily and his blood sugars remain well controlled below 120 with his last A1c approx 2 months ago at 7.4. 04/22/14 The patient reports no increase in drainage from his wounds today. He has been faithfully wearing his orthopedic boot with the cut-out area around his 5th MT ulcer. 04/15/14 The patient reports no increase in drainage from his wounds today. He reminds me that a TCC was the cause of his 5th MT ulcer and he is not excited about trying a TCC again. He is interested in HBOT if it will be beneficial to his wounds. 04/09/14 The patient reports increased drainage from his right 5th MT ulcer and feels his surgical boot he's been wearing for off loading may have caused pressure to the area. His blood sugars have improved and he also reports a 5 lb weight loss after doubling his dose of lasix over the past week. Of note, he did not liaise with his PCP prior to doing this. 04/04/14 The patient states that he was walking a bit more than usual yesterday but notes some sanguinous drainage on his plantar 1st MTPJ dressing for the past few days. He's also put on 7 lbs in the past week and feels his legs are more swollen than usual. He does not report chest pain, shortness of breath, or orthopnea. His blood sugars are also up a bit around 180. He's compliant with both his diabetes regimen and his diuretic therapy. 03/28/14 The patient reports no increased drainage or other complications from his right foot diabetic ulcers. 03/21/14 The patient reports minimal drainage from his right foot diabetic ulcers. He continues to minimally weight bear using a surgical boot and a walker. 03/14/14 The patient does not report increased drainage or other new issues regarding his right 5th MTPJ and right 1st MTPJ plantar ulcers. His blood sugars remain more elevated than usual with some between 150 and 180. 03/07/14 The patient reports no fever or increased right foot wound pain or drainage. 02/28/14 The patient reports that his blood sugar this morning is a bit elevated around 160 but has mostly been below 140 over the past few days. He's been off antibiotics for 3 days now and reports modest drainage from the right 5th MT ulcer while dressing changes are being done every two days. 02/24/14 The patient does not report any new issues regarding his right foot ulcers including increased drainage, fever, or chills. He completed his course of doxycycline yesterday. 02/17/14 The patient reports moderate yellow drainage from the right foot 5th MTPJ ulcer. He's completed a course of doxycycline and does not report fever or chills but states his blood sugars remain higher then normal in the 170's. His wound culture was positive for Enterobacter and his ESR was elevated at 41 and CRP at 2.7. 02/06/14 The patient does not report increased drainage from the right 5th MTPJ ulcer nor does he report fever or pain. He continues to off load with a walker and minimizing walking. He continues on doxycycline which was started empirically at his last visit and his culture has since grown Enterobacter which should be susceptible to doxy based on sensitivities. His xray of the foot was not concerning for osteomyelitis however his ESR and CRP are both moderately elevated. He also feels his legs are more swollen than usual and he continues to take his lasix as scheduled. 02/03/14 The patient does not report fever, chills, or pain in the right foot however when the TCC was removed today he's noted to have a sizable increase in the diameter and depth of what was a small 5th MTPJ ulcer. 01/14/14 The patient reports no new problems regarding is right diabetic foot ulcer. 12/31/13 The patient reports minimal serous drainage from his right 5th MTPJ ulcer and states he continues to off load his foot as much as possible. He does not report pain or drainage from the site of his right 1st MTPJ ulcer. 12/19/13 The patient tolerated with TCC without any complaints but there appears to be a small area of erythema over the right 5th MTPJ. He notes his blood sugars are typically below 120 and his A1c last week was 7.4. 12/13/13 The patient has no complaints regarding his TCC nor his plantar ulcer. 12/11/13 The patient returns for placement of a TCC today. He does not report any new problems regarding is plantar ulcer. 12/03/13 The patient states his plantar ulcer drainage is stable and he's continued to not use a cut-out foam doughnut over the ulcer. 11/26/13 The patient has kept the foam dressing in place from the last visit and has not used a cut-out foam dressing which we felt caused some deterioration of the foot ulcer. He has some mild drainage but no pain. 11/22/13 The patient returns for review of his plantar ulcer and callus that seems to be deteriorating despite an adjustment to his boot and off loading measures. The patient reports his callus accumulation is in spite of daily kerasal applications. Patient reports a new small wound on the left second toe. Josue states that it might be related to the brace. Patient had brace modified to help off load. 11/06/13 Josue states he was able to schedule with the prosthetic doctor tomorrow at noon. He reports no new problems or concerns. He also says that he is done with physical therapy since yesterday as insurance will not cover it any longer. 10/31/13 The patient reports he received his dressing supplies. Dressings changes are going well and no new problems are reported. He saw his tile roofer, Dr. Solitario, on Monday for a check up and had and x-ray of the foot. 10/24/13 Josue reports he has been staying off of his feet as much as possible. He has been changing the dressing as ordered and states there has been just a small amount of drainage. He recently ran out of his dressings and will need more ordered or the balance sent home with him. 10/17/13 Patient states he has no new problems or concerns. He did have a small increase in drainage the other day but he had walked more than normal the day before. 10/09/13 Josue states he has no new issues. Dressing changes are going well. 10/02/13 Josue states there have been no new issues with dressing changes. They have been changed once since his last visit. No complaints of pain with the wound. 09/20/13 Josue was discharged from wound care September 05. States that he has been using pumice stone on callus area where had previous wound and may have been too aggressive. Also has been on feet more and having increase in lower extremity edema. Continues to wear the tetragrip F he had received in the clinic 6 hours per day but has not ordered any yet. 09/27/13 Patient states that there have been no issues with using the tetra nascar racer. Asking about getting compression stockings from drug store for continued use. 09/05/13 Patient states he has set up physical therapy for the problems with his knee. He starts these treatments on 09/11. There has been no new issues with his wound and he changes the dressings about every two days. He reports little to no drainage. 08/06/13 States no new problems with wound area. Been using kerosol daily. 08/19/13 Patient states he twisted his knee a week ago, and it is effecting his walk slightly. He also complains of more edema in his legs, and has an appointment with his PCP tomorrow regarding the issue. No new problems or concerns with his wound. No new problems or concerns. Patient states he changed the dressing a few times this last week. Saw Dr. Solitario this past week for check up with no change o his management. 07/26/13 The patient has had new brace for one week and so far it is working out well. No other complaints at this time. 07/18/13 Patient got brace for foot and leg yesterday. No problems or concerns. 07/11/13 No problems or concerns. Changed dressing twice since last visit 07/04/13- Pt went to his PCP and his lasix were increased from 20mg to 40mg. He states his edema has decreased since then. Pt's diabetic foot brace (decreases lateral movement to reduce pressure on the sides of his feet) will arrive in about another week. 06/20/13- Pt reports increased edema in his feet for the last week, he has been walking more, but also sitting with his feet down more. With the increase in exercise he states his back has been hurting. On Sunday 06/18 pt went to [facility],and had his ankle brace fitting. 05/31/[address] Green this am. Changed dressing twice this week. Saw template maker (in [place]) on Monday. Considering ankle brace 05/24/13 states started walking program at 5 minutes at a time and taking the bus to clinic apt. 11/08/12 Pt is changing dressing every two days. Is concerned about the edema to the left leg that had the cellulitis. States it is warm. 11/15/12 patient has been having more nerve pain. He has been changing his dressing either every day or every other day. 11/22/12- Patient continues to change dressing about every day. No problems noted. Patient changing dressing about q o day. Thinks wound is less deep. 12/07/12 Pt only changed dressing twice since last visit. No concerns or problems. 12/18/12 When cleaning wound was able to aspirate large purlent sero-sang fluid from site. Pt states he feels it was doing better. 12/24/12 Decreased drainage and pt states he feels the wound is doing well. 12/31 Pt states he has had decreased draiange from wound. Pt denies pain. 01/07/13Pt states the kerasol didn't really do much, but admits he was only applying it every other day and is not sure what his expectations should be. He believes he may have bumped a toe on the left foot and has been concerned about some bruising there but admits it is getting better. Still does not have his new shoes and says he is exploring other options like disability. 01/21/13 feeling well since last visit. feels he may have bumped third toe so wants it to be seen. Level 2- 3 neuropathic pain in right foot 02/27/12 Patient changing bandaid on foot and applying kerasol every three days. Patient got new PCP and saw him yesterday. Patient states things are going well with the wound. 03/12/[address] Green for edema and will see him tomorrow for follow up.03/25/13 states has drainage from bottom of foot. concerned about new wounds Sates he changes dressing every 2 days. Changed this AM as it came off. Using Ca alginate and foam. States no drainage last night 04/19/13 changes dressing every 2-3 days. no problem. Has appt with Dr. Solitario 04/30/13 and new shoes have arrived. To be fitted next week 04/26/13 Is wearing new shoes and states they are working well.Changed dressing twice this week 05.03.[address] Solitario last week. will see again in [address] Green started antibiotic for sinus infection States sinuses not a lot better. Has started Lakshmi D, helping some. States wound about same. Changing dressing 2 x this week as dressing came off. States added collagen one time. Past Medical History This information was obtained from the patient Patient has a medical history of: Left lower extremity cellulitis - 10/15/2012 Diabetic foot ulcer - 09/27/2013 (Hernandez grade 2; right plantar surface; Hernandez grade III (Enterobacter positive wound culture 02/03/14), lateral right 5th MTPJ originally dx 12/24/13; MRSA positive culture 06/04/14 ) Chronic venous hypertension Type II Diabetes Hypertension Morbid Obesity Kidney Stones Hx MRSA Diabetic neuropathy Hallux valgus (right 1st toe) UTI (hospital admit) Cellulitis of legs (June and September 2012- hospital admit) Cataract surgery (10/13/15) Diabetic Neuropathy Complaints and Symptoms This information was obtained from the patient Patient complains of: General Notes: I have reviewed and concur with the Review of Systems and Past Family Social History documents completed by the clinician, I have reviewed and concur with the Wound Assessment document completed by the clinician Cardiovascular (Central/Peripheral): Lower extremity (leg) swelling Integumentary (Hair/Skin/Nails): Open Sore Musculoskeletal: Deformities, Muscle Weakness Neurological: Abnormal Gait, Loss of Protective Sensation, Tremors Prior Wound History: Bleeding, Drainage Patient denies complaints or symptoms related to: Cardiovascular (Central): Irregular heart beat Cardiovascular (Central/Peripheral): Lower extremity (leg) resting pain Constitutional Symptoms (General Health): Chills, Fever, Marked Weight Change Ear/Nose/Mouth/Throat: Hearing Loss / Aid Gastrointestinal (GI): Nausea / Vomiting Hematologic/Lymphatic: Bleeding / Clotting Disorders, Bleeding Tendency Musculoskeletal: Assistive Devices Prior Wound History: Erythema, Malodor, Pain Psychiatric: Memory Loss Respiratory: Oxygen Use, Shortness of Breath OBJECTIVE Constitutional BP elevated; Low grade fever; Alert and in no distress. Well developed. Alert. Clean appearing.. Height/Length: 71 in (180.34 cm), Weight: 363.1 lbs (165.05 kgs), BMI: 50.6, Temperature: 99.7 ?F (37.61 ?C), Pulse: 80 bpm, Respiratory Rate: 18 breaths/min , Blood Pressure: 149/68 mmHg, Capillary Blood Glucose: 200 mg/dl, Pulse Oximetry: 98 %. Vital Signs Notes: Glucose per patient Ears, Nose, Mouth, and Throat: No clinically significant hearing loss on informal examination. Cardiovascular: 1+ right lower extremity edema. Gastrointestinal (GI): Obese. Nondistended.. 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 Integumentary (Hair, Skin) No periwound erythema, warmth, or significant drainage. No periwound rashes appreciated or noted otherwise.. Refer to appropriate clinician wound documentation for this visit; right 1st MTPJ ulcer and 5th toe wound extend to subcut with bases partially covered with pink granulation, remainder fibrin and slough. Moderate amount of callus in the periulcer area. Wound #6 Right, Plantar Foot is a chronic Hernandez Grade 2 Diabetic Ulcer and has received a status of Not Healed. Subsequent wound encounter measurements are 0.5cm length x 0.3cm width x 0.1cm depth, with an area of 0.15 sq cm and a volume of 0.015 cubic cm. No tunneling has been noted. No sinus tract has been noted. No undermining has been noted. There is a small amount of serosanguineous drainage noted which has no odor. The patient reports a wound pain of level 0/10. The wound margin is callus. Wound bed has No epithelialization, No eschar, Yes slough, Yes pink, firm granulation. The periwound skin moisture is normal. The periwound skin color is normal. The periwound skin exhibited: Callus. The periwound skin did not exhibit: Brawny Induration, Edema, Excoriation, Induration, Crepitus, Fluctuance, Friable, Rash. The temperature of the periwound skin is WNL. Periwound skin does not exhibit signs or symptoms of infection. Local Pulse is Palpable. Wound #8 Right Fifth Toe is an acute Hernandez Grade 1 Diabetic Ulcer and has received a status of Not Healed. Initial wound encounter measurements are 0.4cm length x 1.1cm width x 0.3cm depth, with an area of 0.44 sq cm and a volume of 0.132 cubic cm. No tunneling has been noted. No sinus tract has been noted. No undermining has been noted. There is a scant amount of serosanguineous drainage noted which has no odor. The patient reports a wound pain of level 0/10. The wound margin is attached. Wound bed has No epithelialization, No eschar, No slough, No granulation. The periwound skin texture is normal. The periwound skin moisture is normal. The periwound skin color is normal. The temperature of the periwound skin is WNL. Periwound skin does not exhibit signs or symptoms of infection. Neurological: Cranial nerves grossly intact with symmetric function normal by informal observation.. ASSESSMENT Active Problems ICD-10 (Encounter Diagnosis) E11.621 - Type 2 diabetes mellitus with foot ulcer (Encounter Diagnosis) L97.512 - Non-pressure chronic ulcer of other part of right foot with fat layer exposed (Encounter Diagnosis) S91.301A - Unspecified open wound, right foot, initial encounter PROCEDURES Wound #6 Wound #6 (Diabetic Ulcer) is located on the right, plantar foot. A skin/ subcutaneous tissue level surgical debridement with a total area debrided of 0.15 sq cm was performed by Stephen Nice MD. Subcutaneous was removed along with devitalized tissue: callus and slough. The following instrument(s) were used: curette. Pain control was achieved using 4% Lido. A time out was conducted prior to the start of the procedure. A minimal amount of bleeding was controlled with silver nitrate. The procedure was tolerated well with a pain level of 0 throughout and a pain level of 0 following the procedure. Post Debridement Measurements: 0.5cm length x 0.3cm width x 0.2cm depth; with an area of 0.15 sq cm and a volume of 0.03 cubic cm; Additional Information Muscle fascia or bone removed and sent to pathology?: No PLAN Wound Orders: Wound #6 Right, Plantar Foot Anesthetic Topical Xylocaine to wound bed. - In clinic only. Cleanser Cleanse Wound: - Normal saline and gauze. May Shower. - Do not get wound wet with tap water. Use cast protector when showering. Topical Treatments Moisturizing lotion to surround skin. - Kerasal to callus. Dressings Cover and secure with: - Foam (or may use telfa) and hypafix tape. Change Dressing: - Every other day. Wound #8 Right Fifth Toe Anesthetic Topical Xylocaine to wound bed. - In clinic only. Cleanser Cleanse Wound: - Normal saline and gauze. May Shower. - Do not get wound wet with tap water. Use cast protector when showering. Topical Treatments Antibiotic/Antimicrobial Ointment/Cream. - Gentamicin Dressings Primary dressing: - Foam and tape Change Dressing: - Every other day Additional Orders: Off-Loading Keep weight off: - Right foot as much as possible. Use Knee scooter when able. Use/Wear when Walking: - Offloading shoe. Compression/Edema Control Elevation of leg(s) above the level of the heart when sitting. Avoid prolonged standing in one place. - Please avoid standing or walking for long periods of time. Knee-high gradient compression stockings. - Tetragrip F stockings to both legs. On in the morning and off at night. Follow-Up Appointments Return Appointment: - - One week Other information: If you develop fever, chills, increased pain, drainage, redness or swelling please call our office. If after hours, respond to the ER. Should you experience any significant changes in your wound(s) or have any questions regarding your home care instructions please contact the wound center @ [phone]. If after hours, contact your primary care physician or go to the hospital emergency room. Scribing Attestation I attest, as the nurse, that I scribed these orders for the physician. I've reviewed the clinician's documentation and agree with the evaluation and plan as written. In addition, the patient's ulcer demonstrates evidence of non-viable devitalized tissue which will continue to benefit from sharp debridement to help promote granulation and expedite healing. Electronic Signature(s) Signed By: Date: Stephen Nice MD 11/22/2017 07:59:58 Entered By: Stephen Nice on 11/22/2017 07:57:08
== END ==
PROVIDERS: PCP Family Medicine; Visit Provider Internal Medicine
DX: E11.621 Type 2 diabetes mellitus with foot ulcer (principal); L97.512 Non-pressure chronic ulcer of other part of right foot with fat layer exposed; L84 Corns and callosities
CPT/HCPCS: 11042

== ENCOUNTER → 2017-11-29 08:41 | Outpatient (CLI) | payer MEDICARE, OTHER, SELFPAY | PROVIDERS: PCP Family Medicine; Visit Provider Family Medicine | DX: E11.622 Type 2 diabetes mellitus with other skin ulcer (principal); E11.40 Type 2 diabetes mellitus with diabetic neuropathy, unspecified; L97.411 Non-pressure chronic ulcer of right heel and midfoot limited to breakdown of skin; E11.621 Type 2 diabetes mellitus with foot ulcer; L97.511 Non-pressure chronic ulcer of other part of right foot limited to breakdown of skin | CPT/HCPCS: 11042; 93922; 99213 ==

== ENCOUNTER → 2017-12-02 10:02 | Outpatient (REF) | payer MEDICARE, OTHER, SELFPAY ==
[2017-12-02 10:05] LABS: Bacteria Urine None Seen; RBC Urine None Seen (0-5/HPF)
[2017-12-02 11:15] LABS: WBC Urine 0-1/HPF (0-5/HPF)
[2017-12-02 11:16] LABS: Culture Indicated Urine Cult Not Indicated; Urine Comments Microscopic Normal
== END ==
LOC: LAB 10:02
PROVIDERS: PCP Family Medicine; Visit Provider Family Medicine
DX: R30.0 Dysuria (principal); R39.15 Urgency of urination
CPT/HCPCS: 81015

== ENCOUNTER → 2017-12-06 08:55 | Outpatient (CLI) | payer MEDICARE, OTHER, SELFPAY | PROVIDERS: PCP Family Medicine; Visit Provider Family Medicine | DX: E11.621 Type 2 diabetes mellitus with foot ulcer (principal); E11.40 Type 2 diabetes mellitus with diabetic neuropathy, unspecified; L97.411 Non-pressure chronic ulcer of right heel and midfoot limited to breakdown of skin | CPT/HCPCS: 11042 ==

== ENCOUNTER → 2017-12-13 11:18 | Outpatient (CLI) | payer MEDICARE, OTHER, SELFPAY | PROVIDERS: PCP Family Medicine; Visit Provider Family Medicine | DX: E11.621 Type 2 diabetes mellitus with foot ulcer (principal); L97.511 Non-pressure chronic ulcer of other part of right foot limited to breakdown of skin; E11.40 Type 2 diabetes mellitus with diabetic neuropathy, unspecified; L03.115 Cellulitis of right lower limb; Z91.19 Patient's noncompliance with other medical treatment and regimen | CPT/HCPCS: 11042; 87070; 87075; 87077; 87147; 87186; 87205; 99214 ==

== ENCOUNTER → 2017-12-20 10:24 | Outpatient (CLI) | payer MEDICARE, OTHER, SELFPAY | PROVIDERS: PCP Family Medicine; Visit Provider Family Medicine | DX: E11.622 Type 2 diabetes mellitus with other skin ulcer (principal); L97.411 Non-pressure chronic ulcer of right heel and midfoot limited to breakdown of skin; L03.115 Cellulitis of right lower limb | CPT/HCPCS: 11042 ==

== ENCOUNTER → 2017-12-27 15:50 | Outpatient (CLI) | payer MEDICARE, OTHER, SELFPAY | PROVIDERS: PCP Family Medicine; Visit Provider Family Medicine | DX: E11.622 Type 2 diabetes mellitus with other skin ulcer (principal); E11.40 Type 2 diabetes mellitus with diabetic neuropathy, unspecified; L97.411 Non-pressure chronic ulcer of right heel and midfoot limited to breakdown of skin; L03.115 Cellulitis of right lower limb | CPT/HCPCS: 11042 ==

== ENCOUNTER → 2018-01-03 10:22 | Outpatient (CLI) | payer MEDICARE, OTHER, SELFPAY | PROVIDERS: PCP Family Medicine; Visit Provider Family Medicine | DX: E11.621 Type 2 diabetes mellitus with foot ulcer (principal); L97.511 Non-pressure chronic ulcer of other part of right foot limited to breakdown of skin; L03.115 Cellulitis of right lower limb | CPT/HCPCS: 11042 ==

== ENCOUNTER → 2018-01-08 13:30 | Outpatient (CLI) | payer MEDICARE, OTHER, SELFPAY | PROVIDERS: PCP Family Medicine; Visit Provider Family Medicine | DX: E11.621 Type 2 diabetes mellitus with foot ulcer (principal); E11.40 Type 2 diabetes mellitus with diabetic neuropathy, unspecified; L97.511 Non-pressure chronic ulcer of other part of right foot limited to breakdown of skin | CPT/HCPCS: 11042; 99213 ==

== ENCOUNTER → 2018-01-10 10:01 | Outpatient (CLI) | payer MEDICARE, OTHER, SELFPAY | PROVIDERS: PCP Family Medicine; Visit Provider Family Medicine | DX: E11.622 Type 2 diabetes mellitus with other skin ulcer (principal); L97.411 Non-pressure chronic ulcer of right heel and midfoot limited to breakdown of skin | CPT/HCPCS: 99212 ==

== ENCOUNTER → 2018-01-15 14:55 | Outpatient (CLI) | payer MEDICARE, OTHER, SELFPAY | PROVIDERS: PCP Family Medicine; Visit Provider Family Medicine | DX: E11.622 Type 2 diabetes mellitus with other skin ulcer (principal); L97.411 Non-pressure chronic ulcer of right heel and midfoot limited to breakdown of skin; M85.571 Aneurysmal bone cyst, right ankle and foot | CPT/HCPCS: 11042 ==

== ENCOUNTER → 2018-01-23 10:20 | Outpatient (CLI) | payer MEDICARE, OTHER, SELFPAY | PROVIDERS: PCP Family Medicine; Visit Provider Family Medicine | DX: E11.621 Type 2 diabetes mellitus with foot ulcer (principal); L97.512 Non-pressure chronic ulcer of other part of right foot with fat layer exposed; M86.671 Other chronic osteomyelitis, right ankle and foot | CPT/HCPCS: 11042 ==

== ENCOUNTER → 2018-01-30 09:50 | Outpatient (CLI) | payer MEDICARE, OTHER, SELFPAY | PROVIDERS: PCP Family Medicine; Visit Provider Family Medicine | DX: E11.621 Type 2 diabetes mellitus with foot ulcer (principal); L97.512 Non-pressure chronic ulcer of other part of right foot with fat layer exposed; M86.671 Other chronic osteomyelitis, right ankle and foot | CPT/HCPCS: 11042 ==

== ENCOUNTER → 2018-02-02 08:01 | Outpatient (REF) | payer MEDICARE, OTHER, SELFPAY ==
[2018-02-02 09:02] LABS: Hematocrit 33.2 % (41-53); Hemoglobin 11.4 g/dL (13.5-17.5); Mean Corpuscular HGB Conc 34.3 % (30-36); Mean Corpuscular Hemoglobin 29.8 PG (26-34); Mean Corpuscular Volume 86.8 fL (80-100); Platelet Count 138 X10^3/uL (150-400); Red Blood Cell Count 3.83 X10^6/uL (4.5-5.9); Red Cell Distribution Width 14.5 % (11.6-14.8); White Blood Cell Count 7.3 X10^3/uL (4.5-11.0)
[2018-02-02 09:03] LABS: Add Manual Diff / Slide Review YES
[2018-02-02 09:25] LABS: Neutrophils Absolute Manual 2701 /uL (3000-5900); Total Cells Counted 100
[2018-02-02 09:26] LABS: Anisocytosis 1+; C-Reactive Protein Quant 0.7 mg/dL (<1.0); Microcytosis 3+
[2018-02-02 09:27] LABS: Erythrocyte Sedimentation Rate 29 MM/HR (0-15)
== END ==
LOC: LAB 08:01
PROVIDERS: PCP Family Medicine; Visit Provider Internal Medicine Infectious Disease
DX: M86.9 Osteomyelitis, unspecified (principal)
CPT/HCPCS: 36415; 85025; 85651; 86140

== ENCOUNTER → 2018-02-05 15:18 | Outpatient (CLI) | payer MEDICARE, OTHER, SELFPAY ==
[2018-02-05 16:42] LABS: Carbon Dioxide 27 mmol/L (22-32); Chloride 97 mmol/L (98-107); HEMOLYSIS < 15 (0-50); Potassium 4.1 mmol/L (3.4-5.1); Sodium 135 mmol/L (137-145)
== END ==
PROVIDERS: Family Provider Orthopaedic Surgery; PCP Family Medicine; Visit Provider Podiatrist
DX: Z01.818 Encounter for other preprocedural examination (principal)
CPT/HCPCS: 36415; 80051; 93005

== ENCOUNTER → 2018-02-06 08:56 | Outpatient (CLI) | payer MEDICARE, OTHER, SELFPAY | PROVIDERS: Family Provider Orthopaedic Surgery; PCP Family Medicine; Visit Provider Family Medicine | DX: E11.621 Type 2 diabetes mellitus with foot ulcer (principal); L97.512 Non-pressure chronic ulcer of other part of right foot with fat layer exposed; M86.671 Other chronic osteomyelitis, right ankle and foot | CPT/HCPCS: 11042 ==

== ENCOUNTER 2018-02-09 08:12 | Day surgery (SDC) | payer MEDICARE, OTHER, SELFPAY ==
[2018-02-06 14:38] VITALS: BMI 49.5
[2018-02-09 08:29] VITALS: BP 147/70; PULSE 67; RESP 16; TEMP 36.3; O2SAT 98; BMI 49.5
[2018-02-09] MEDS: LACTATED RINGERS 1,000 ML 42 ML IV (08:52)
--- NOTE | 2018-02-09 09:25 | PM.PREOP ---
Pre-operative Note Interval Note Pre-op Check: Yes History & Physical Reviewed by Physician Changes: No
[2018-02-09] MEDS: CLINDAMYCIN 600 MG/50 ML PIGGYBACK 50 MG IV ×2 (09:32→10:22)
--- NOTE | 2018-02-09 10:01 | SUR.OPER ---
Supine on padded OR bed, on wedge, head on pillow, arms secured on padded arm boards at <90 degrees abduction with additional blankets for elevation, legs uncrossed, safety belt at thigh, rolled blanket and gel bump under right thigh, tape over blanket over thighs,
[2018-02-09] MEDS: LIDOCAINE 2% INJ SDV 3 ML INJ (10:26)
[2018-02-09] MEDS: BUPIVACAINE 0.5% (PF) VIAL 3 ML INJ (10:26)
[2018-02-09 10:46] VITALS: BP 129/66; PULSE 65; RESP 16; TEMP 36.8; O2SAT 95
[2018-02-09 11:07] VITALS: BP 121/56; PULSE 64; RESP 16; TEMP 36.4; O2SAT 96
--- NOTE | 2018-02-09 11:13 | P.OP_ITS ---
Operative Date/Time/Diagnoses Date of procedure: 02/09/18 Time of procedure: 09:01 Pre-op diagnosis: Possible bone infection with existing fracture right great toe proximal phalanx Post-op diagnosis: same Procedure & Clinicians Procedure: Bone biopsies and partial fracture fragment excision right great toe proximal phalanx Same procedure as scheduled: Yes Indications: Recent MRI and eval by infectious disease provider expressed concern of possible bone infection at great toe proximal phalanx. Coexisting wound in the plantar first metatarsal head but no bony signs of infectious process and no bone exposure in wound. Surgeon: Shirin Solitario Click Yes if Unassisted: Yes Anesthesia Type: MAC +/- and Sedation Operative Notes Closure Type: primary Specimen(s): other (1) Proximal phalanx hallux medial base bone sent for culture ; 2)Proximal phalanx hallux shaft bone sent for culture) Estimated Blood Loss (mL): 20 Blood products transfused: none Procedure in detail: The patient was brought to the operating room and placed on the operating table in the supine position. Well padded, appropriately aligned. After induction of mild iv sedation, local anesthesia was obtained to the foot. The foot was prepped and draped in the usual aseptic manner After checking for anesthesia and coverage of plantar wound, an incision was made over the dorsal hallux proximal phalanx into the metatarsal phalangeal joint. The incision was deepened through subcutaneous tissues being careful to identify and retract all vital neural and vascular structures. All bleeders were cauterized and ligated as necessary. No purulent discharge was noted or abscesses. The base of the proximal phalanx did show signs of prior injury and there was a mixture of degenerative changes to the base as well as healing processes that it happened from the presumed fracture. There were no free bone pieces noted. The decision was made to remove some bone on the proximal medial edge which was a portion of the fracture and this was easily done with a rongeur. This was passed to the fishing tool supervisor for culture. Further dissection to the proximal phalangeal shaft was also showing no evidence of new fracture or abscess. A small diameter trephine was used and gently a piece of central bone was removed, keeping the cortex of the phalanx in place. This came out in two parts but were both sent for culture. The area was irrigated with copious amounts of normal sterile saline. All bleeders were cauterized and ligated as necessary. Repair using 4 0 Vicryl was performed to the capsule and extensor which was longitudinally moved from the medial capsule for investigation of the bone and replaced. Subcutaneous closure performed using Vicryl and skin closure using nylon. The area was dressed plantarly with Adaptic and and gauze and dorsally as well. Gentle compressive bandage was placed on the foot and he was transferred to the PACU with vital signs stable. Complications: none Condition: stable Disposition: PACU Plan for aftercare: Following a period of postoperative monitoring the patient will be discharged to his care facility with written and postoperative instructions including keeping the dressing dry and intact unless wound care needs to get to the plantar wound. No ice, elevate the foot when seated at home. DVT prevention techniques have been reviewed. And finally he will see me for a postop visit next week and we will evaluate what we know regarding his culture and biopsy results. No additional medication for pain control is used as he has not been experiencing pain and appears to be neuropathic in the location.
== END 2018-02-09 11:38 | disposition home or self-care (01) ==
PROVIDERS: Family Provider Orthopaedic Surgery; PCP Family Medicine; Visit Provider Podiatrist
PROC: (CPT 28150; principal; 2018-02-09 09:15)
DX: L97.511 Non-pressure chronic ulcer of other part of right foot limited to breakdown of skin (principal); E11.42 Type 2 diabetes mellitus with diabetic polyneuropathy; S92.41 Fracture of proximal phalanx of great toe; M20.41 Other hammer toe(s) (acquired), right foot; Z79.4 Long term (current) use of insulin
CPT/HCPCS: 28150; 87070; 87075; 87205; J2250; J2704; J3010

== ENCOUNTER → 2018-02-22 13:23 | Outpatient (CLI) | payer MEDICARE, OTHER, SELFPAY | PROVIDERS: Family Provider Orthopaedic Surgery; PCP Family Medicine; Visit Provider Family Medicine | DX: E11.621 Type 2 diabetes mellitus with foot ulcer (principal); E11.40 Type 2 diabetes mellitus with diabetic neuropathy, unspecified; L97.512 Non-pressure chronic ulcer of other part of right foot with fat layer exposed; L08.9 Local infection of the skin and subcutaneous tissue, unspecified | CPT/HCPCS: 11042 ==

== ENCOUNTER → 2018-02-23 07:54 | Outpatient (REF) | payer MEDICARE, OTHER, SELFPAY ==
[2018-02-23 08:53] LABS: Hemoglobin A1C% w Est Avg Glu 7.1 % (4.0-6.0)
[2018-02-23 09:05] LABS: Creatinine Urine Random 76.6 mg/dL
[2018-02-23 09:08] LABS: Alanine Aminotransferase 42 IU/L (21-72); Albumin 3.8 g/dL (3.5-5.0); Albumin Globulin Ratio 1.2 (1.0-2.8); Alkaline Phosphatase 61 U/L (38-126); Aspartate Aminotransferase 48 IU/L (17-59); BUN Creatinine Ratio 27.8 (6-22); Bilirubin Total 0.9 mg/dL (0.2-1.3); Blood Urea Nitrogen 25 mg/dL (9-20); Calcium 8.9 mg/dL (8.4-10.2); Carbon Dioxide 30 mmol/L (22-32); Chloride 99 mmol/L (98-107); Cholesterol 158 mg/dL (140-199); Estimated Glomerular Filt Rate > 60.0 mL/min (>60); Globulin 3.1 g/dL (1.7-4.1); Glucose 86 mg/dL (80-110); HDL Cholesterol 69 mg/dL (40-60); HEMOLYSIS 43 (0-50); LDL Cholesterol Calculated 60 mg/dL (<100); Potassium 3.8 mmol/L (3.4-5.1); Sodium 138 mmol/L (137-145); Total Protein 6.9 g/dL (6.3-8.2); Triglycerides 146 mg/dL (35-150)
[2018-02-23 09:11] LABS: Microalbumi Creatinin Ratio Ur 7.8 ug/mg CR (<30); Microalbumin Urine Random < 0.6 mg/dL (0-1.6)
== END ==
LOC: LAB 07:54
PROVIDERS: Family Provider Orthopaedic Surgery; PCP Family Medicine; Visit Provider Family Medicine
DX: E11.9 Type 2 diabetes mellitus without complications (principal)
CPT/HCPCS: 36415; 80053; 80061; 82043; 82570; 83036

== ENCOUNTER → 2018-02-27 13:39 | Outpatient (CLI) | payer MEDICARE, OTHER, SELFPAY | PROVIDERS: Family Provider Orthopaedic Surgery; PCP Family Medicine; Visit Provider Family Medicine | DX: E11.621 Type 2 diabetes mellitus with foot ulcer (principal); L97.512 Non-pressure chronic ulcer of other part of right foot with fat layer exposed | CPT/HCPCS: 29445 ==

== ENCOUNTER → 2018-03-01 10:54 | Outpatient (CLI) | payer MEDICARE, OTHER, SELFPAY | PROVIDERS: Family Provider Orthopaedic Surgery; PCP Family Medicine; Visit Provider Family Medicine | DX: E11.621 Type 2 diabetes mellitus with foot ulcer (principal); E11.40 Type 2 diabetes mellitus with diabetic neuropathy, unspecified; L97.511 Non-pressure chronic ulcer of other part of right foot limited to breakdown of skin | CPT/HCPCS: 99212; 99213 ==

== ENCOUNTER → 2018-03-07 14:37 | Outpatient (CLI) | payer MEDICARE, OTHER, SELFPAY | PROVIDERS: Family Provider Orthopaedic Surgery; PCP Family Medicine; Visit Provider Family Medicine | DX: E11.621 Type 2 diabetes mellitus with foot ulcer (principal); L97.512 Non-pressure chronic ulcer of other part of right foot with fat layer exposed; E11.622 Type 2 diabetes mellitus with other skin ulcer; L97.411 Non-pressure chronic ulcer of right heel and midfoot limited to breakdown of skin | CPT/HCPCS: 97597 ==

== ENCOUNTER → 2018-03-09 11:07 | Outpatient (CLI) | payer MEDICARE, OTHER, SELFPAY | PROVIDERS: Family Provider Orthopaedic Surgery; PCP Family Medicine; Visit Provider Family Medicine | DX: E11.621 Type 2 diabetes mellitus with foot ulcer (principal); L97.511 Non-pressure chronic ulcer of other part of right foot limited to breakdown of skin; E11.622 Type 2 diabetes mellitus with other skin ulcer; L97.411 Non-pressure chronic ulcer of right heel and midfoot limited to breakdown of skin | CPT/HCPCS: 29445 ==

== ENCOUNTER → 2018-03-12 13:20 | Outpatient (CLI) | payer MEDICARE, OTHER, SELFPAY | PROVIDERS: Family Provider Orthopaedic Surgery; PCP Family Medicine; Visit Provider Podiatrist Primary Podiatric Medicine | DX: E11.621 Type 2 diabetes mellitus with foot ulcer (principal); L97.511 Non-pressure chronic ulcer of other part of right foot limited to breakdown of skin | CPT/HCPCS: 99214 ==

== ENCOUNTER → 2018-03-19 10:19 | Outpatient (CLI) | payer MEDICARE, OTHER, SELFPAY | PROVIDERS: Family Provider Orthopaedic Surgery; PCP Family Medicine; Visit Provider Podiatrist Primary Podiatric Medicine | DX: E11.621 Type 2 diabetes mellitus with foot ulcer (principal); L97.511 Non-pressure chronic ulcer of other part of right foot limited to breakdown of skin | CPT/HCPCS: 97597 ==

== ENCOUNTER → 2018-03-26 09:54 | Outpatient (CLI) | payer MEDICARE, OTHER, SELFPAY | PROVIDERS: Family Provider Orthopaedic Surgery; PCP Family Medicine; Visit Provider Family Medicine | DX: E11.621 Type 2 diabetes mellitus with foot ulcer (principal); L97.511 Non-pressure chronic ulcer of other part of right foot limited to breakdown of skin | CPT/HCPCS: 97597 ==

== ENCOUNTER → 2018-04-02 11:39 | Outpatient (CLI) | payer MEDICARE, OTHER, SELFPAY | PROVIDERS: Family Provider Orthopaedic Surgery; PCP Family Medicine; Visit Provider Family Medicine | DX: E11.621 Type 2 diabetes mellitus with foot ulcer (principal); L97.512 Non-pressure chronic ulcer of other part of right foot with fat layer exposed | CPT/HCPCS: 99213 ==

== ENCOUNTER → 2018-04-09 10:01 | Outpatient (CLI) | payer MEDICARE, OTHER, SELFPAY | PROVIDERS: Family Provider Orthopaedic Surgery; PCP Family Medicine; Visit Provider Podiatrist Primary Podiatric Medicine | DX: E11.621 Type 2 diabetes mellitus with foot ulcer (principal); E11.40 Type 2 diabetes mellitus with diabetic neuropathy, unspecified; L97.511 Non-pressure chronic ulcer of other part of right foot limited to breakdown of skin | CPT/HCPCS: 97597 ==

== ENCOUNTER → 2018-04-16 09:08 | Outpatient (CLI) | payer MEDICARE, OTHER, SELFPAY | PROVIDERS: Family Provider Orthopaedic Surgery; PCP Family Medicine; Visit Provider Family Medicine | DX: E11.621 Type 2 diabetes mellitus with foot ulcer (principal); L97.511 Non-pressure chronic ulcer of other part of right foot limited to breakdown of skin | CPT/HCPCS: 97597 ==

== ENCOUNTER → 2018-04-23 09:53 | Outpatient (CLI) | payer MEDICARE, OTHER, SELFPAY | PROVIDERS: Family Provider Orthopaedic Surgery; PCP Family Medicine; Visit Provider Podiatrist Primary Podiatric Medicine | DX: E11.621 Type 2 diabetes mellitus with foot ulcer (principal); L97.511 Non-pressure chronic ulcer of other part of right foot limited to breakdown of skin | CPT/HCPCS: 99213 ==

== ENCOUNTER → 2018-04-30 09:57 | Outpatient (CLI) | payer MEDICARE, OTHER, SELFPAY | PROVIDERS: Family Provider Orthopaedic Surgery; PCP Family Medicine; Visit Provider Podiatrist Primary Podiatric Medicine | DX: Z48.817 Encounter for surgical aftercare following surgery on the skin and subcutaneous tissue (principal); E11.9 Type 2 diabetes mellitus without complications | CPT/HCPCS: 99213 ==

== ENCOUNTER → 2018-05-14 13:18 | Outpatient (CLI) | payer MEDICARE, OTHER, SELFPAY | PROVIDERS: Family Provider Orthopaedic Surgery; PCP Family Medicine; Visit Provider Podiatrist Primary Podiatric Medicine | DX: E11.621 Type 2 diabetes mellitus with foot ulcer (principal); L97.511 Non-pressure chronic ulcer of other part of right foot limited to breakdown of skin | CPT/HCPCS: 99213 ==

== ENCOUNTER → 2018-06-04 12:48 | Outpatient (REF) | payer MEDICARE, OTHER, SELFPAY ==
[2018-06-04 13:35] LABS: Alanine Aminotransferase 36 IU/L (21-72); Albumin 3.6 g/dL (3.5-5.0); Albumin Globulin Ratio 1.3 (1.0-2.8); Alkaline Phosphatase 69 U/L (38-126); Aspartate Aminotransferase 32 IU/L (17-59); BUN Creatinine Ratio 27.5 (6-22); Bilirubin Total 0.3 mg/dL (0.2-1.3); Blood Urea Nitrogen 22 mg/dL (9-20); Calcium 8.9 mg/dL (8.4-10.2); Carbon Dioxide 33 mmol/L (22-32); Chloride 99 mmol/L (98-107); Estimated Glomerular Filt Rate > 60.0 mL/min (>60); Globulin 2.7 g/dL (1.7-4.1); Glucose 138 mg/dL (80-110); HEMOLYSIS < 15 (0-50); Potassium 3.9 mmol/L (3.4-5.1); Sodium 139 mmol/L (137-145); Total Protein 6.3 g/dL (6.3-8.2)
== END ==
LOC: LAB 12:48
PROVIDERS: Family Provider Orthopaedic Surgery; PCP Family Medicine; Visit Provider Family Medicine
DX: E11.9 Type 2 diabetes mellitus without complications (principal)
CPT/HCPCS: 36415; 80053

== ENCOUNTER → 2018-06-08 08:33 | Outpatient (REF) | payer MEDICARE, OTHER, SELFPAY ==
[2018-06-08 10:21] LABS: Hemoglobin A1C% w Est Avg Glu 6.1 % (4.0-6.0)
== END ==
LOC: LAB 08:33
PROVIDERS: Family Provider Orthopaedic Surgery; PCP Family Medicine; Visit Provider Family Medicine
DX: E11.9 Type 2 diabetes mellitus without complications (principal)
CPT/HCPCS: 36415; 83036

== ENCOUNTER → 2018-09-19 07:23 | Outpatient (ROUT) | payer MEDICARE, OTHER, MEDICAID, SELFPAY ==
[2018-09-19 09:09] LABS: Add Manual Diff / Slide Review NO; Basophils Absolute Auto 100 /uL (0-100); Basophils Percent Auto 0.8 % (0-2); Eosinophils Absolute Auto 1000 /uL (0-450); Hematocrit 33.2 % (41-53); Hemoglobin 11.1 g/dL (13.5-17.5); Lymphocytes Absolute Auto 2800 /uL (1100-4500); Lymphocytes Percent Auto 38.1 % (25-40); Mean Corpuscular HGB Conc 33.3 % (30-36); Mean Corpuscular Hemoglobin 29.9 PG (26-34); Mean Corpuscular Volume 89.9 fL (80-100); Monocytes Absolute Auto 600 /uL (0-900); Monocytes Percent Auto 7.7 % (3-14); Neutrophils Absolute Auto 2900 /uL (1500-7000); Neutrophils Percent Auto 39.4 % (50-75); Platelet Count 144 X10^3/uL (150-400); Red Cell Distribution Width 14.8 % (11.6-14.8); White Blood Cell Count 7.5 X10^3/uL (4.5-11.0)
[2018-09-19 09:15] LABS: Alanine Aminotransferase 28 IU/L (21-72); Albumin 3.4 g/dL (3.5-5.0); Albumin Globulin Ratio 1.3 (1.0-2.8); Alkaline Phosphatase 69 U/L (38-126); Aspartate Aminotransferase 27 IU/L (17-59); BUN Creatinine Ratio 23.8 (6-22); Bilirubin Total 0.5 mg/dL (0.2-1.3); Blood Urea Nitrogen 19 mg/dL (9-20); Calcium 8.7 mg/dL (8.4-10.2); Carbon Dioxide 31 mmol/L (22-32); Chloride 101 mmol/L (98-107); Cholesterol 174 mg/dL (140-199); Estimated Glomerular Filt Rate > 60.0 mL/min (>60); Globulin 2.6 g/dL (1.7-4.1); Glucose 77 mg/dL (80-110); HDL Cholesterol 69 mg/dL (40-60); HEMOLYSIS < 15 (0-50); LDL Cholesterol Calculated 78 mg/dL (<100); Potassium 3.9 mmol/L (3.4-5.1); Sodium 140 mmol/L (137-145); Triglycerides 135 mg/dL (35-150)
== END ==
PROVIDERS: Family Provider Orthopaedic Surgery; PCP Family Medicine; Visit Provider Family Medicine
DX: E11.9 Type 2 diabetes mellitus without complications (principal)
CPT/HCPCS: 36415; 80053; 80061; 83036; 85025

== ENCOUNTER 2018-10-15 07:22 | Day surgery (SDC) | payer MEDICARE, OTHER, SELFPAY ==
--- NOTE | 2018-10-15 08:08 | SUR.PREOP ---
pt reports he has not had a bowel movement for several days even after completing the prep. Notified MD, procedure canceled for today. Office will call to reschedule. pt lives at [facility], notified pile driver engineer who will pick him up shortly. Pt taken to ER entrance to wait for ride.
== END 2018-10-15 22:00 | disposition home or self-care (01) ==
PROVIDERS: Family Provider Orthopaedic Surgery; PCP Family Medicine; Visit Provider Surgery

== ENCOUNTER 2018-11-02 07:12 | Day surgery (SDC) | payer MEDICARE, OTHER, SELFPAY ==
[2018-11-02] VITALS (7 sets, daily range): BP systolic 83–152; BP diastolic 48–60; PULSE 66–76; RESP 12–16; TEMP 36.5–36.6; O2SAT 94–98; BMI 50.3
[2018-11-02] MEDS: SODIUM CHLORIDE 0.9% 1,000 ML 200 ML IV ×2 (07:50→09:24)
--- NOTE | 2018-11-02 08:36 | PM.HP.1 ---
History of Present Illness History of Present Illness Date Patient Seen: 11/02/18 Time Patient Seen: 08:36 Chief complaint: [id number] SCREENING COLONOSCOPY Narrative: 62-year-old white male here for a screening colonoscopy. He is insulin-dependent diabetic blood sugar this morning 145. He has had no prior abdominal surgery had a colonoscopy 10 years ago with no polyps. Denies melena or hematochezia or abdominal pain Patient History Medical History Cellulitis (Acute 02/27/17) Chronic ulcer of right foot limited to breakdown of skin (Acute) Closed non-physeal fracture of proximal phalanx of great toe with malunion (Acute) Depression (Acute) Diabetes (Acute) Essential tremor (Acute) Hypertension (Acute) Insulin dependent diabetes mellitus (Acute) Morbid obesity (Acute) MRSA (methicillin resistant Staphylococcus aureus) (Acute 02/27/17) Peripheral autonomic neuropathy (Acute) Peripheral vascular disease (Acute) Polypharmacy (Acute) Sepsis (Acute 02/27/17) Sleep apnea (Acute) Thrombocytopenia (Acute) Toe amputation status (Acute) Visit for wound care (Acute) Social History household members: caregiver Smoking Status: Never smoker Family & Social History Social History: household members caregiver Tobacco & Substance use: Smoking Status Never smoker Substance Use Type does not use Meds Home Medications and Allergies Home Medications Medication Instructions Recorded Confirmed Type gabapentin 1,200 mg PO TID #0 10/07/12 11/02/18 History furosemide 80 mg PO TID #0 10/15/15 11/02/18 History Durezol 1 drp EYE-LEFT DAILY #0 03/06/16 11/02/18 History enalapril maleate 20 mg PO Q DAY #0 03/06/16 11/02/18 History Lantus Solostar U-100 Insulin 50 unit SQ BID #30 03/09/16 11/02/18 Rx acetaminophen [Tylenol Extra 1,000 mg PO Q4H PRN #0 02/27/17 11/02/18 History Strength] bisacodyl 10 mg PO DAILY 02/07/18 11/02/18 History insulin asp prt-insulin aspart 25 unit SUBCUT TID 02/07/18 11/02/18 History [Novolog Mix 70-30 U-100 Insuln] metformin 1 tab PO BID 02/07/18 11/02/18 History ondansetron 1 - 2 tab PO Q6H PRN 02/07/18 11/02/18 History oxycodone 10 mg PO Q4H PRN 02/07/18 11/02/18 History pantoprazole 40 mg PO DAILY 02/07/18 11/02/18 History polyethylene glycol 3350 17 g PO DAILY 02/07/18 11/02/18 History primidone 150 tab PO BID 02/07/18 11/02/18 History difluprednate [Durezol] 1 drp EYE-RIGHT BID 11/02/18 11/02/18 History fluticasone propionate [24 Hour 2 spray INTRANASAL DAILY 11/02/18 11/02/18 History Allergy Relief] multivitamin 1 cap PO DAILY 11/02/18 11/02/18 History tamsulosin 0.4 mg PO BID 11/02/18 11/02/18 History vitamin B complex 1 cap PO DAILY 11/02/18 11/02/18 History Allergies Allergy/AdvReac Type Severity Reaction Status Date / Time amoxicillin [From AUGMENTIN] AdvReac Unknown UPSET Verified 02/09/18 08:50 STOMACH clavulanic acid AdvReac Unknown UPSET Verified 02/09/18 08:50 [From AUGMENTIN] STOMACH Exam Vital Signs (past 8 hours): - 11/02/18 07:39 Temperature 97.9 F Pulse Rate 76 Respiratory Rate 16 Blood Pressure 152/60 H Pulse Oximetry 98 Oxygen Delivery Method Room Air Narrative Exam Narrative: Patient is alert and oriented with no complaints Lungs very distant breath sounds due to his obesity no rales or wheezes Heart regular rhythm no murmur Abdomen massively obese no organomegaly no masses no tenderness Rectal will be done at colonoscopy Assessment & Plan Assessment & Plan narrative: Patient is here for screening colonoscopy is an insulin-dependent diabetic blood sugar checked this morning 145 he understands procedure and agrees with no unanswered questions
[2018-11-02] MEDS: fentaNYL 250 MCG/5 ML INJ IV (09:00)
[2018-11-02] MEDS: MIDAZOLAM 5 MG/5 ML VIAL IV (09:01)
--- NOTE | 2018-11-02 09:01 | PM.OP.ENDO ---
Operative Date/Time/Diagnoses Date of procedure: 11/02/18 Time of procedure: 09:02 Pre-op diagnosis: Screening colonoscopy Post-op diagnosis: same Procedure & Clinicians Study performed: Total colonoscopy to the cecum Same procedure as scheduled: Yes Surgeon: Zenon Vinson Procedure Notes SCOAP/Timeout: This was done Procedure in detail: The patient was properly identified during surgical pause was given a total of 4 mg of Versed and 200 micro g of fentanyl and remained comfortable throughout the procedure. The flexible fiberoptic colonoscope was inserted transanally to the cecum. Patient did have 1 sigmoid diverticulum so he does have very mild diverticulosis. No tumors no polyps or ulcerations were seen. Procedure was well tolerated. Scope withdrawal time: 8 Sedation minutes: 20 Findings: diverticulosis Impression: Very mild diverticulosis sigmoid colon Post-procedure Recommendations: Colonscopy in 10 years Disposition: PACU
--- NOTE | 2018-11-02 09:57 | SUR.PHASEII ---
pt d/megan in the care of Ree his caregiver at [facility].
== END 2018-11-02 09:58 | disposition home or self-care (01) ==
PROVIDERS: PCP Family Medicine; Visit Provider Surgery
PROC: 0DJD8ZZ Inspection of Lower Intestinal Tract, Via Natural or Artificial Opening Endoscopic (ICD-10-PCS; CPT 45378; principal; 2018-11-02 08:30)
DX: Z12.11 Encounter for screening for malignant neoplasm of colon (principal); E11.9 Type 2 diabetes mellitus without complications; Z79.4 Long term (current) use of insulin; I10 Essential (primary) hypertension; E66.01 Morbid (severe) obesity due to excess calories; G47.30 Sleep apnea, unspecified; K57.30 Diverticulosis of large intestine without perforation or abscess without bleeding
CPT/HCPCS: G0121; 99152; J2250; J3010

== ENCOUNTER → 2019-05-10 07:17 | Outpatient (ROUT) | payer MEDICARE, OTHER, SELFPAY ==
[2019-05-10 08:59] LABS: Hemoglobin A1C% w Est Avg Glu 7.6 % (4.0-6.0)
[2019-05-10 09:10] LABS: Add Manual Diff / Slide Review NO; Basophils Absolute Auto 100 /uL (0-100); Basophils Percent Auto 0.6 % (0-2); Eosinophils Absolute Auto 1000 /uL (0-450); Eosinophils Percent Auto 12.5 % (2-4); Hematocrit 32.3 % (41-53); Hemoglobin 10.8 g/dL (13.5-17.5); Lymphocytes Absolute Auto 3200 /uL (1100-4500); Mean Corpuscular HGB Conc 33.5 % (30-36); Mean Corpuscular Hemoglobin 30.8 PG (26-34); Monocytes Absolute Auto 500 /uL (0-900); Monocytes Percent Auto 6.8 % (3-14); Neutrophils Absolute Auto 3200 /uL (1500-7000); Neutrophils Percent Auto 40.1 % (50-75); Platelet Count 161 X10^3/uL (150-400); Red Blood Cell Count 3.51 X10^6/uL (4.5-5.9)
[2019-05-10 09:11] LABS: Alanine Aminotransferase 24 IU/L (<50); Albumin 3.4 g/dL (3.5-5.0); Albumin Globulin Ratio 1.2 (1.0-2.8); Alkaline Phosphatase 75 U/L (38-126); Aspartate Aminotransferase 30 IU/L (17-59); BUN Creatinine Ratio 32.9 (6-22); Bilirubin Total 0.3 mg/dL (0.2-1.3); Blood Urea Nitrogen 27 mg/dL (9-20); Calcium 8.7 mg/dL (8.4-10.2); Carbon Dioxide 32 mmol/L (22-32); Chloride 101 mmol/L (98-107); Estimated Glomerular Filt Rate > 60.0 mL/min (>60); Globulin 2.8 g/dL (1.7-4.1); Glucose 162 mg/dL (80-110); HEMOLYSIS < 15 (0-50); Potassium 4.1 mmol/L (3.4-5.1); Sodium 137 mmol/L (137-145); Total Protein 6.2 g/dL (6.3-8.2)
== END ==
PROVIDERS: PCP Family Medicine; Visit Provider Family Medicine
DX: E21.0 Primary hyperparathyroidism (principal)
CPT/HCPCS: 36415; 80053; 83036; 84153; 85025

== ENCOUNTER → 2019-07-18 14:41 | Outpatient (CLI) | payer MEDICARE, MEDICAID, SELFPAY ==
--- NOTE | 2019-07-18 | DI.RAD.S_ITS ---
PROCEDURE: XR HIP W PEL IF DONE RT 2V INDICATIONS: RT HIP PAIN TECHNIQUE: AP pelvis with lateral view(s) of the right hip(s). COMPARISON: None. FINDINGS: Bones: No fractures or dislocations but there is symmetric bilateral hip joint mild to moderate osteoarthritis. Pelvic ring appears intact. No suspicious bony lesions. Soft tissues: The visualized bowel gas pattern is normal. No suspicious soft tissue calcifications. IMPRESSION: No trauma found. Mild to moderate hip joint osteoarthritis that appear symmetric bilaterally. Dictated by: Santos Cooney M.D. on 07/18/2019 at 15:16 Approved by: Santos Cooney M.D. on 07/18/2019 at 15:16
== END ==
PROVIDERS: PCP Family Medicine; Referring Provider Family Medicine; Visit Provider Family Medicine
DX: M25.551 Pain in right hip (principal); M16.0 Bilateral primary osteoarthritis of hip
CPT/HCPCS: 73502

== ENCOUNTER → 2019-08-30 07:20 | Outpatient (ROUT) | payer MEDICARE, MEDICAID, SELFPAY ==
[2019-08-30 08:03] LABS: Hemoglobin A1C% w Est Avg Glu 7.5 % (4.0-6.0)
== END ==
PROVIDERS: PCP Family Medicine; Visit Provider Family Medicine
DX: E11.9 Type 2 diabetes mellitus without complications (principal)
CPT/HCPCS: 36415; 83036

== ENCOUNTER → 2019-09-09 07:16 | Outpatient (ROUT) | payer MEDICARE, MEDICAID, SELFPAY ==
[2019-09-09 08:10] LABS: Hemoglobin A1C% w Est Avg Glu 7.6 % (4.0-6.0)
== END ==
PROVIDERS: PCP Family Medicine; Visit Provider Internal Medicine
DX: E11.9 Type 2 diabetes mellitus without complications (principal)
CPT/HCPCS: 36415; 83036

== ENCOUNTER → 2019-10-07 09:05 | Outpatient (ROUT) | payer MEDICARE, MEDICAID, SELFPAY ==
[2019-10-07 09:33] LABS: Hemoglobin A1C% w Est Avg Glu 7.3 % (4.0-6.0)
== END ==
PROVIDERS: PCP Family Medicine; Visit Provider Family Medicine
DX: E11.9 Type 2 diabetes mellitus without complications (principal)
CPT/HCPCS: 36415; 83036

== ENCOUNTER → 2019-12-26 15:11 | Outpatient (CLI) | payer MEDICARE, MEDICAID, SELFPAY | PROVIDERS: PCP Family Medicine; Referring Provider Family Medicine; Visit Provider Family Medicine | DX: L97.511 Non-pressure chronic ulcer of other part of right foot limited to breakdown of skin (principal); E11.621 Type 2 diabetes mellitus with foot ulcer; E11.49 Type 2 diabetes mellitus with other diabetic neurological complication | CPT/HCPCS: 11042; 99213; 99214 ==

== ENCOUNTER → 2019-12-30 11:02 | Outpatient (CLI) | payer MEDICARE, MEDICAID, SELFPAY | PROVIDERS: PCP Family Medicine; Referring Provider Family Medicine; Visit Provider Family Medicine | DX: E11.621 Type 2 diabetes mellitus with foot ulcer (principal); L97.511 Non-pressure chronic ulcer of other part of right foot limited to breakdown of skin; E11.40 Type 2 diabetes mellitus with diabetic neuropathy, unspecified | CPT/HCPCS: 97597 ==

== ENCOUNTER → 2020-01-01 11:14 | Outpatient (CLI) | payer MEDICARE, MEDICAID, SELFPAY | PROVIDERS: PCP Family Medicine; Referring Provider Family Medicine; Visit Provider Family Medicine | DX: E11.621 Type 2 diabetes mellitus with foot ulcer (principal); L97.511 Non-pressure chronic ulcer of other part of right foot limited to breakdown of skin | CPT/HCPCS: 29445 ==

== ENCOUNTER → 2020-01-08 10:33 | Outpatient (CLI) | payer MEDICARE, MEDICAID, SELFPAY | PROVIDERS: PCP Family Medicine; Referring Provider Family Medicine; Visit Provider Family Medicine | DX: E11.621 Type 2 diabetes mellitus with foot ulcer (principal); L97.511 Non-pressure chronic ulcer of other part of right foot limited to breakdown of skin; E11.40 Type 2 diabetes mellitus with diabetic neuropathy, unspecified | CPT/HCPCS: 29445 ==

== ENCOUNTER → 2020-01-10 08:18 | Outpatient (ROUT) | payer MEDICARE, MEDICAID, SELFPAY ==
[2020-01-10 08:55] LABS: Add Manual Diff / Slide Review NO; Basophils Absolute Auto 100 /uL (0-100); Basophils Percent Auto 1.2 % (0-2); Eosinophils Absolute Auto 1100 /uL (0-450); Eosinophils Percent Auto 13.2 % (2-4); Hematocrit 33.2 % (41-53); Lymphocytes Absolute Auto 3100 /uL (1100-4500); Lymphocytes Percent Auto 37.4 % (25-40); Mean Corpuscular HGB Conc 33.3 % (30-36); Mean Corpuscular Hemoglobin 30.8 PG (26-34); Mean Corpuscular Volume 92.7 fL (80-100); Monocytes Absolute Auto 600 /uL (0-900); Monocytes Percent Auto 7.5 % (3-14); Neutrophils Absolute Auto 3300 /uL (1500-7000); Neutrophils Percent Auto 40.7 % (50-75); Platelet Count 147 X10^3/uL (150-400); Red Blood Cell Count 3.58 X10^6/uL (4.5-5.9); White Blood Cell Count 8.2 X10^3/uL (4.5-11.0)
[2020-01-10 09:03] LABS: Hemoglobin A1C% w Est Avg Glu 7.7 % (4.0-6.0)
[2020-01-10 09:24] LABS: Alanine Aminotransferase 19 IU/L (<50); Albumin 3.5 g/dL (3.5-5.0); Albumin Globulin Ratio 1.2 (1.0-2.8); Alkaline Phosphatase 78 U/L (38-126); Aspartate Aminotransferase 26 IU/L (17-59); BUN Creatinine Ratio 36.7 (6-22); Bilirubin Total 0.4 mg/dL (0.2-1.3); Blood Urea Nitrogen 29 mg/dL (9-20); Calcium 8.6 mg/dL (8.4-10.2); Carbon Dioxide 33 mmol/L (22-32); Chloride 101 mmol/L (98-107); Cholesterol 180 mg/dL (140-199); Estimated Glomerular Filt Rate > 60.0 mL/min (>60); Glucose 154 mg/dL (80-110); HDL Cholesterol 63 mg/dL (40-60); HEMOLYSIS < 15 (0-50); LDL Cholesterol Calculated 78 mg/dL (<100); Potassium 4.1 mmol/L (3.4-5.1); Sodium 137 mmol/L (137-145); Total Protein 6.5 g/dL (6.3-8.2); Triglycerides 196 mg/dL (35-150)
== END ==
PROVIDERS: PCP Family Medicine; Visit Provider Family Medicine
DX: E11.9 Type 2 diabetes mellitus without complications (principal)
CPT/HCPCS: 36415; 80053; 80061; 83036; 85025

== ENCOUNTER → 2020-01-15 10:12 | Outpatient (CLI) | payer MEDICARE, MEDICAID, SELFPAY | PROVIDERS: PCP Family Medicine; Referring Provider Family Medicine; Visit Provider Family Medicine | DX: E11.621 Type 2 diabetes mellitus with foot ulcer (principal); L97.511 Non-pressure chronic ulcer of other part of right foot limited to breakdown of skin | CPT/HCPCS: 29445 ==

== ENCOUNTER → 2020-01-22 10:17 | Outpatient (CLI) | payer MEDICARE, MEDICAID, SELFPAY | PROVIDERS: PCP Family Medicine; Referring Provider Family Medicine; Visit Provider Family Medicine | DX: E11.621 Type 2 diabetes mellitus with foot ulcer (principal); L97.511 Non-pressure chronic ulcer of other part of right foot limited to breakdown of skin; E11.40 Type 2 diabetes mellitus with diabetic neuropathy, unspecified | CPT/HCPCS: 97597; 99213 ==

== ENCOUNTER → 2020-04-07 22:09 | Outpatient (ROUT) | payer MEDICARE, MEDICAID, SELFPAY ==
[2020-04-07 23:07] LABS: Creatinine Urine Random 46.8 mg/dL
[2020-04-07 23:11] LABS: Microalbumi Creatinin Ratio Ur 21.3 ug/mg CR (<30)
== END ==
PROVIDERS: Visit Provider Internal Medicine
DX: E11.9 Type 2 diabetes mellitus without complications (principal)
CPT/HCPCS: 82043; 82570

== ENCOUNTER → 2020-04-08 07:33 | Outpatient (ROUT) | payer MEDICARE, MEDICAID, SELFPAY ==
[2020-04-08 08:30] LABS: Hemoglobin A1C% w Est Avg Glu 7.5 % (4.0-6.0)
[2020-04-08 08:42] LABS: Alanine Aminotransferase 18 IU/L (<50); Albumin 3.6 g/dL (3.5-5.0); Albumin Globulin Ratio 1.2 (1.0-2.8); Alkaline Phosphatase 76 U/L (38-126); Aspartate Aminotransferase 25 IU/L (17-59); Bilirubin Total 0.2 mg/dL (0.2-1.3); Blood Urea Nitrogen 27 mg/dL (9-20); Calcium 8.9 mg/dL (8.4-10.2); Carbon Dioxide 35 mmol/L (22-32); Chloride 101 mmol/L (98-107); Cholesterol 196 mg/dL (140-199); Estimated Glomerular Filt Rate > 60.0 mL/min (>60); Glucose 159 mg/dL (80-110); HDL Cholesterol 58 mg/dL (40-60); HEMOLYSIS < 15 (0-50); LDL Cholesterol Calculated 65 mg/dL (<100); Sodium 137 mmol/L (137-145); Total Protein 6.6 g/dL (6.3-8.2); Triglycerides 364 mg/dL (35-150)
== END ==
PROVIDERS: Visit Provider Internal Medicine
DX: E11.9 Type 2 diabetes mellitus without complications (principal); I10 Essential (primary) hypertension; R60.9 Edema, unspecified
CPT/HCPCS: 36415; 80053; 80061; 83036

== ENCOUNTER → 2020-06-23 19:23 | Outpatient (ROUT) | payer OTHER, SELFPAY ==
[2020-06-23 19:52] LABS: Alanine Aminotransferase 22 IU/L (<50); Albumin Globulin Ratio 1.3 (1.0-2.8); Alkaline Phosphatase 82 U/L (38-126); Aspartate Aminotransferase 34 IU/L (17-59); BUN Creatinine Ratio 29.2 (6-22); Bilirubin Total 0.3 mg/dL (0.2-1.3); Blood Urea Nitrogen 26 mg/dL (9-20); Calcium 9.4 mg/dL (8.4-10.2); Carbon Dioxide 31 mmol/L (22-32); Chloride 98 mmol/L (98-107); Estimated Glomerular Filt Rate > 60.0 mL/min (>60); Glucose 162 mg/dL (80-110); HEMOLYSIS < 15 (0-50); Potassium 4.4 mmol/L (3.4-5.1); Sodium 141 mmol/L (137-145)
[2020-06-23 21:49] LABS: Hemoglobin A1C% w Est Avg Glu 7.3 % (4.0-6.0)
== END ==
PROVIDERS: Visit Provider Internal Medicine
DX: E11.42 Type 2 diabetes mellitus with diabetic polyneuropathy (principal)
CPT/HCPCS: 80053; 83036

== ENCOUNTER → 2020-07-07 14:05 | Outpatient (CLI) | payer MEDICARE, MEDICAID, SELFPAY | PROVIDERS: PCP Internal Medicine; Referring Provider Psychiatry & Neurology Neurology; Visit Provider Psychiatry & Neurology Neurology | DX: M85.851 Other specified disorders of bone density and structure, right thigh (principal); E11.42 Type 2 diabetes mellitus with diabetic polyneuropathy; G25.0 Essential tremor; E66.9 Obesity, unspecified; G47.33 Obstructive sleep apnea (adult) (pediatric); I10 Essential (primary) hypertension; N40.0 Benign prostatic hyperplasia without lower urinary tract symptoms; Z82.62 Family history of osteoporosis | CPT/HCPCS: 77080 ==

== ENCOUNTER → 2020-12-23 11:11 | Outpatient (CLI) | payer MEDICARE, MEDICAID, SELFPAY ==
[2020-12-23 11:49] LABS: Add Manual Diff / Slide Review NO; Basophils Absolute Auto 100 /uL (0-100); Basophils Percent Auto 0.9 % (0-2); Eosinophils Absolute Auto 1100 /uL (0-450); Eosinophils Percent Auto 13.2 % (2-4); Hematocrit 31.7 % (41-53); Hemoglobin 10.7 g/dL (13.5-17.5); Lymphocytes Absolute Auto 2500 /uL (1100-4500); Lymphocytes Percent Auto 30.5 % (25-40); Mean Corpuscular HGB Conc 33.7 % (30-36); Mean Corpuscular Hemoglobin 30.9 PG (26-34); Mean Corpuscular Volume 91.6 fL (80-100); Monocytes Absolute Auto 500 /uL (0-900); Monocytes Percent Auto 6.1 % (3-14); Neutrophils Absolute Auto 4000 /uL (1500-7000); Neutrophils Percent Auto 49.3 % (50-75); Platelet Count 184 X10^3/uL (150-400); Red Blood Cell Count 3.46 X10^6/uL (4.5-5.9); Red Cell Distribution Width 13.7 % (11.6-14.8); White Blood Cell Count 8.1 X10^3/uL (4.5-11.0)
[2020-12-23 12:06] LABS: Hemoglobin A1C% w Est Avg Glu 6.1 % (4.0-6.0)
[2020-12-23 12:54] LABS: Alanine Aminotransferase 21 IU/L (<50); Albumin 3.7 g/dL (3.5-5.0); Albumin Globulin Ratio 1.4 (1.0-2.8); Alkaline Phosphatase 94 U/L (38-126); Aspartate Aminotransferase 25 IU/L (17-59); BUN Creatinine Ratio 25.9 (6-22); Bilirubin Total 0.5 mg/dL (0.2-1.3); Blood Urea Nitrogen 21 mg/dL (9-20); Carbon Dioxide 35 mmol/L (22-32); Chloride 95 mmol/L (98-107); Cholesterol 162 mg/dL (140-199); Estimated Glomerular Filt Rate > 60.0 mL/min (>60); Globulin 2.6 g/dL (1.7-4.1); Glucose 76 mg/dL (80-110); HDL Cholesterol 66 mg/dL (40-60); HEMOLYSIS < 15 (0-50); LDL Cholesterol Calculated 70 mg/dL (<100); Potassium 4.1 mmol/L (3.4-5.1); Sodium 138 mmol/L (137-145); Total Protein 6.3 g/dL (6.3-8.2); Triglycerides 132 mg/dL (35-150)
== END ==
PROVIDERS: PCP Internal Medicine; Referring Provider Nurse Practitioner Family; Visit Provider Nurse Practitioner Family
DX: E11.8 Type 2 diabetes mellitus with unspecified complications (principal)
CPT/HCPCS: 36415; 80053; 80061; 83036; 85025

== ENCOUNTER 2021-01-27 16:56 | Emergency (ER) | payer MEDICARE, MEDICAID, SELFPAY ==
[2021-01-27] VITALS (32 sets, daily range): BP systolic 100–160; BP diastolic 45–102; PULSE 74–94; RESP 14–21; TEMP 37.5; O2SAT 89–100
--- NOTE | 2021-01-27 17:06 | DI.RAD.S_ITS ---
PROCEDURE: XR CHEST 1V INDICATIONS: suspected sepsis TECHNIQUE: One view of the chest was acquired. COMPARISON: [facility], CHEST FOR PICC PLACEMENT, 03/02/2017, 13:36. [facility], CHEST 1 VIEW, 02/27/2017, 3:59. FINDINGS: Surgical changes and devices: None. Lungs and pleura: An incomplete inspiratory result is noted, causing a crowded appearance to the lung markings. No focal infiltrates are seen. No pneumothorax or significant pleural effusions are seen. Mild generalized interstitial prominence can be seen. Mediastinum: Mediastinal contours appear normal. Heart size is normal. Bones and chest wall: No suspicious bony lesions. Age-appropriate bony degenerative changes are seen. Overlying soft tissues appear unremarkable. IMPRESSION: Limited study with low lung volumes. Interstitial prominence can be seen, which is likely related to artifact from the incomplete inspiratory result. Differential diagnosis would also include pulmonary edema and atypical/viral infiltrate, yet this is considered to be less likely. If clinically appropriate, a short-term followup chest series (with PA and lateral views) performed in deep inspiration is suggested for further evaluation. Dictated by: Tyrone Vila M.D. on 01/27/2021 at 16:17 Approved by: Tyrone Vila M.D. on 01/27/2021 at 16:18
[2021-01-27 17:25] LABS: Add Manual Diff / Slide Review NO; Basophils Absolute Auto 100 /uL (0-100); Basophils Percent Auto 0.7 % (0-2); Eosinophils Absolute Auto 800 /uL (0-450); Hematocrit 33.1 % (41-53); Hemoglobin 11.2 g/dL (13.5-17.5); Lymphocytes Absolute Auto 1900 /uL (1100-4500); Lymphocytes Percent Auto 16.7 % (25-40); Mean Corpuscular HGB Conc 33.9 % (30-36); Mean Corpuscular Hemoglobin 30.8 PG (26-34); Mean Corpuscular Volume 90.8 fL (80-100); Monocytes Absolute Auto 600 /uL (0-900); Monocytes Percent Auto 5.5 % (3-14); Neutrophils Absolute Auto 8000 /uL (1500-7000); Neutrophils Percent Auto 70.1 % (50-75); Platelet Count 172 X10^3/uL (150-400); Red Blood Cell Count 3.64 X10^6/uL (4.5-5.9); Red Cell Distribution Width 14.2 % (11.6-14.8); White Blood Cell Count 11.4 X10^3/uL (4.5-11.0)
[2021-01-27 17:40] LABS: INR 1.2 (0.9-1.3); Prothrombin Time 13.5 SECONDS (10.1-12.7)
[2021-01-27 17:43] LABS: PTT Partial Thromboplastin Tim 30 SECONDS (26.4-36.2)
[2021-01-27 17:44] LABS: Lactate (Lactic Acid) 1.9 mmol/L (0.7-2.1)
[2021-01-27 17:46] LABS: Alanine Aminotransferase 20 IU/L (<50); Albumin Globulin Ratio 1.4 (1.0-2.8); Alkaline Phosphatase 91 U/L (38-126); Aspartate Aminotransferase 24 IU/L (17-59); BUN Creatinine Ratio 19.7 (6-22); Bilirubin Total 0.6 mg/dL (0.2-1.3); Blood Urea Nitrogen 15 mg/dL (9-20); Calcium 9.4 mg/dL (8.4-10.2); Carbon Dioxide 33 mmol/L (22-32); Chloride 102 mmol/L (98-107); Creatine Kinase 47 U/L (55-170); Estimated Glomerular Filt Rate > 60.0 mL/min (>60); Globulin 2.8 g/dL (1.7-4.1); Glucose 185 mg/dL (80-110); Lipase 32 U/L (23-300); Potassium 4.4 mmol/L (3.4-5.1); Sodium 140 mmol/L (137-145); Total Protein 6.8 g/dL (6.3-8.2)
[2021-01-27 17:59] LABS: HEMOLYSIS < 15 (0-50); Troponin I < 0.012 ng/mL (0.01-0.034)
[2021-01-27 18:02] LABS: Procalcitonin 0.12 ng/mL (<0.5)
[2021-01-27] MEDS: cefTRIAXone 1,000 MG in SODIUM CHLORIDE 0.9% 100 ML 200 ML IV (18:33)
[2021-01-27 19:12] LABS: COVID19 - ADMIT (NP swab/PCR) Negative (Negative)
--- NOTE | 2021-01-27 19:26 | ED_ITS ---
HPI - General Adult General Chief complaint: Weakness Stated complaint: generalized weakness / temp Time Seen by Provider: 01/27/21 18:13 Source: patient and EMS Mode of arrival: EMS History of Present Illness HPI narrative: 65-year-old male who arrived by EMS for evaluation of generalized weakness, confusion, reported elevated temperature. It appears that this has been going on for the past 24 hours. Patient states that he did not go any breakfast or lunch today and he arrived to in her early which is unusual for him. He does report that he has had decreased urine output recently. His generalized weakness. No headache. No chest pain. No shortness of breath. Has not tried anything for the symptoms prior to arrival. He is a diabetic. Related Data Home Medications Medication Instructions Recorded Confirmed gabapentin 800 mg tablet 1,200 mg PO TID #0 10/07/12 09/10/19 furosemide 80 mg tablet 80 mg PO TID #0 10/15/15 09/10/19 difluprednate 0.05 % eye drops 1 drp EYE-LEFT DAILY #0 03/06/16 09/10/19 (Durezol) enalapril maleate 20 mg tablet 20 mg PO Q DAY #0 03/06/16 09/10/19 acetaminophen 500 mg tablet 1,000 mg PO Q4H PRN #0 02/27/17 09/10/19 (Tylenol Extra Strength) bisacodyl 5 mg tablet 10 mg PO DAILY 02/07/18 09/10/19 insulin aspar prt-insulin aspart 25 unit SUBCUT TID 02/07/18 09/10/19 100 unit/mL (70-30) subcutaneous soln (Novolog Mix 70-30 U-100 Insuln) ondansetron 4 mg disintegrating 1 - 2 tab PO Q6H PRN 02/07/18 09/10/19 tablet oxycodone 10 mg tablet 10 mg PO Q4H PRN 02/07/18 09/10/19 pantoprazole 40 mg granules 40 mg PO DAILY 02/07/18 09/10/19 delayed-release for susp in packet polyethylene glycol 3350 17 17 g PO DAILY 02/07/18 09/10/19 gram/dose oral powder primidone 50 mg tablet 150 tab PO BID 02/07/18 09/10/19 difluprednate 0.05 % eye drops 1 drp EYE-RIGHT BID 09/13/19 07/21/20 (Durezol) fluticasone propionate 50 2 spray INTRANASAL DAILY 11/02/18 09/10/19 mcg/actuation nasal spray,suspension (24 Hour Allergy Relief) multivitamin 1 cap PO DAILY 11/02/18 09/10/19 tamsulosin 0.4 mg capsule 0.4 mg PO BID 11/02/18 09/10/19 vitamin B complex 1 cap PO DAILY 11/02/18 09/10/19 Previous Rx's Medication Instructions Recorded insulin glargine 100 unit/mL (3 50 unit (0.5 mL) SQ BID #30 03/09/16 mL) subcutaneous pen (Lantus Solostar U-100 Insulin) Allergies Allergy/AdvReac Type Severity Reaction Status Date / Time amoxicillin [From AUGMENTIN] AdvReac Unknown UPSET Verified 01/27/21 17:05 STOMACH clavulanic acid AdvReac Unknown UPSET Verified 01/27/21 17:05 [From AUGMENTIN] STOMACH Review of Systems Constitutional Constitutional: Reports chills, Reports fatigue, Reports fever(s) and Reports lethargy Cardiovascular Cardiovascular: Denies chest pain and Denies dyspnea Respiratory Respiratory: Denies dyspnea Gastrointestinal Gastrointestinal: Denies abdominal pain, Denies nausea and Denies vomiting Genitourinary Genitourinary: Reports as per HPI Musculoskeletal Musculoskeletal: Reports system reviewed and no additional complaints, except as documented Integumentary/Breasts Skin/Breast: Reports system reviewed and no additional complaints, except as documented Neurologic Neurologic: Reports system reviewed and no additional complaints, except as documented Endocrine Endocrine: Reports fatigue Hematologic/Lymphatic On Anticoagulants: No Allergic/Immunologic Allergic/Immunologic: Reports system reviewed and no additional complaints, except as documented Patient History Medical History Cellulitis (02/27/17) Chronic ulcer of right foot limited to breakdown of skin Closed non-physeal fracture of proximal phalanx of great toe with malunion Depression Diabetes Essential tremor Hypertension Insulin dependent diabetes mellitus Morbid obesity MRSA (methicillin resistant Staphylococcus aureus) (02/27/17) Peripheral autonomic neuropathy Peripheral vascular disease Polypharmacy Sepsis (02/27/17) Sleep apnea Thrombocytopenia Toe amputation status Visit for wound care Social History household members: caregiver Smoking Status: Never smoker Smoking Status: Never smoker alcohol intake frequency: other Substance Use Type: does not use Exam Initial Vital Signs Initial Vital Signs: Vital Signs Temperature 99.5 F 01/27/21 16:50 Pulse Rate 94 H 01/27/21 16:50 Respiratory Rate 18 01/27/21 16:50 Blood Pressure 135/62 01/27/21 16:50 Pulse Oximetry 98 01/27/21 16:50 HENMT Head: normal to inspection Resp Effort & Inspection: normal respiratory effort Auscultation: clear to auscultation bilaterally Cardio Rate: regular rate Rhythm: regular rhythm GI Palpation: soft and No tender Skin General: no rashes or lesions noted Neuro General: patient alert, patient awake, patient oriented x3 and moves all extremities Cognition: normal cognition Speech: speech normal Extrem General: normal to inspection and capillary refill normal Psych Appearance: grossly normal and well kempt Scores GCS Brit coma scale eye opening: Spontaneous Brit coma scale verbal response: Orientated [place] coma scale motor response: Obey commands Brit coma scale total score: 15 Course Orders Ordered: ED Orders 01/27/21 22:47 Urine Culture Stat Urine Microscopic Stat Discontinued Medications Ceftriaxone Sodium 1,000 mg/ (Sodium Chloride) 100 mls @ 200 mls/hr IV NOW ONE Stop: 01/27/21 18:17 Last Infusion: 01/27/21 19:12 Dose: 0 mls/hr Documented by: Admin: 01/27/21 18:33 Dose: 200 mls/hr Documented by: ENE Sodium Chloride (Normal Saline 0.9%) 1,000 mls @ 1,000 mls/hr IV BOLUS ONE Stop: 01/27/21 20:25 Last Infusion: 01/27/21 21:10 Dose: 0 mls/hr Documented by: MARIA VICTORIA Admin: 01/27/21 19:50 Dose: 1,000 mls/hr Documented by: MARIA VICTORIA Sodium Chloride (Normal Saline 0.9%) 1,000 mls @ 1,000 mls/hr IV BOLUS ONE Stop: 01/27/21 22:38 Last Infusion: 01/27/21 22:55 Dose: 0 mls/hr Documented by: MARIA VICTORIA Admin: 01/27/21 21:42 Dose: 1,000 mls/hr Documented by: MARIA VICTORIA Vital Signs Vital signs: Vital Signs - 8 hr 01/27/21 22:46 01/27/21 23:00 01/27/21 23:01 Pulse Rate 85 90 86 Respiratory Rate 17 20 Blood Pressure 150/102 H 128/58 L Pulse Oximetry 96 96 96 01/27/21 23:15 01/27/21 23:30 01/27/21 23:45 Pulse Rate 75 75 74 Respiratory Rate 17 19 18 Blood Pressure 142/63 H 142/65 H 138/64 Pulse Oximetry 97 94 94 01/28/21 00:00 01/28/21 00:15 Pulse Rate 74 74 Respiratory Rate 17 17 Blood Pressure 141/65 H 144/65 H Pulse Oximetry 95 95 Medical Decision Making Lab Data Lab results reviewed: Yes I reviewed the patient's lab results. Result diagrams: 01/27/21 17:11 01/27/21 17:11 Labs: Lab Results 01/27/21 01/27/21 01/27/21 Range/Units 17:11 17:11 17:11 WBC 11.4 H (4.5-11.0) X10^3/uL RBC 3.64 L (4.5-5.9) X10^6/uL Hgb 11.2 L (13.5-17.5) g/dL Hct 33.1 L (41-53) % MCV 90.8 (80-100) fL MCH 30.8 (26-34) PG MCHC 33.9 (30-36) % RDW 14.2 (11.6-14.8) % Plt Count 172 (150-400) X10^3/uL Neut % (Auto) 70.1 (50-75) % Lymph % (Auto) 16.7 L (25-40) % [place] % (Auto) 5.5 (3-14) % Eos % (Auto) 7.0 H (2-4) % Baso % (Auto) 0.7 (0-2) % Neut # (Auto) 8000 H (5576-1003) /uL Lymph # (Auto) 1900 (3672-6778) /uL [place] # (Auto) 600 (0-900) /uL Eos # (Auto) 800 H (0-450) /uL Baso # (Auto) 100 (0-100) /uL PT 13.5 H (10.1-12.7) SECONDS INR 1.2 (0.9-1.3) APTT 30 (26.4-36.2) SECONDS Sodium 140 (137-145) mmol/L Potassium 4.4 (3.4-5.1) mmol/L Chloride 102 (98-107) mmol/L Carbon Dioxide 33 H (22-32) mmol/L BUN 15 (9-20) mg/dL Creatinine 0.76 (0.66-1.25) mg/dL Estimated GFR > 60.0 (>60) mL/min BUN/Creatinine Ratio 19.7 (6-22) Glucose 185 H (80-110) mg/dL Lactate (0.7-2.1) mmol/L Calcium 9.4 (8.4-10.2) mg/dL Total Bilirubin 0.6 (0.2-1.3) mg/dL AST 24 (17-59) IU/L ALT 20 (<50) IU/L Alkaline Phosphatase 91 (38-126) U/L Total Creatine Kinase 47 L (55-170) U/L CK-MB (CK-2) TNP CK-MB (CK-2) Rel Index TNP Troponin I < 0.012 (0.01-0.034) ng/mL Total Protein 6.8 (6.3-8.2) g/dL Albumin 4.0 (3.5-5.0) g/dL Globulin 2.8 (1.7-4.1) g/dL Albumin/Globulin Ratio 1.4 (1.0-2.8) Lipase 32 (23-300) U/L Procalcitonin 0.12 (<0.5) ng/mL Urine RBC (0-5/HPF) Urine WBC (0-5/HPF) Urine Bacteria (None) Ur Culture Indicated? SARS-CoV-2 (PCR) (Negative) 01/27/21 01/27/21 01/27/21 Range/Units 17:11 17:32 22:47 WBC (4.5-11.0) X10^3/uL RBC (4.5-5.9) X10^6/uL Hgb (13.5-17.5) g/dL Hct (41-53) % MCV (80-100) fL MCH (26-34) PG MCHC (30-36) % RDW (11.6-14.8) % Plt Count (150-400) X10^3/uL Neut % (Auto) (50-75) % Lymph % (Auto) (25-40) % [place] % (Auto) (3-14) % Eos % (Auto) (2-4) % Baso % (Auto) (0-2) % Neut # (Auto) (8896-1590) /uL Lymph # (Auto) (3412-1961) /uL [place] # (Auto) (0-900) /uL Eos # (Auto) (0-450) /uL Baso # (Auto) (0-100) /uL PT (10.1-12.7) SECONDS INR (0.9-1.3) APTT (26.4-36.2) SECONDS Sodium (137-145) mmol/L Potassium (3.4-5.1) mmol/L Chloride (98-107) mmol/L Carbon Dioxide (22-32) mmol/L BUN (9-20) mg/dL Creatinine (0.66-1.25) mg/dL Estimated GFR (>60) mL/min BUN/Creatinine Ratio (6-22) Glucose (80-110) mg/dL Lactate 1.9 (0.7-2.1) mmol/L Calcium (8.4-10.2) mg/dL Total Bilirubin (0.2-1.3) mg/dL AST (17-59) IU/L ALT (<50) IU/L Alkaline Phosphatase (38-126) U/L Total Creatine Kinase (55-170) U/L CK-MB (CK-2) CK-MB (CK-2) Rel Index Troponin I (0.01-0.034) ng/mL Total Protein (6.3-8.2) g/dL Albumin (3.5-5.0) g/dL Globulin (1.7-4.1) g/dL Albumin/Globulin Ratio (1.0-2.8) Lipase (23-300) U/L Procalcitonin (<0.5) ng/mL Urine RBC 0-1/hpf (0-5/HPF) Urine WBC 0-1/hpf (0-5/HPF) Urine Bacteria None seen (None) Ur Culture Indicated? Culture not indicate SARS-CoV-2 (PCR) Negative (Negative) Urine Dip Bedside Urine Glucose Negative Bedside Urine Bilirubin - Negative Bedside Urine Ketone - Negative Urine Specific [place] 1.010 Bedside Urine Occult Blood +/- Bedside Urine pH 8 Bedside Urine Protein - Negative Bedside Urine Urobilinogen - Negative Bedside Urine Nitrite - Negative Bedside Urine Leukocytes + 70 Esterase Point of care testing: Urine Dip Bedside Urine Glucose Negative Bedside Urine Bilirubin - Negative Bedside Urine Ketone - Negative Urine Specific [place] 1.010 Bedside Urine Occult Blood +/- Bedside Urine pH 8 Bedside Urine Protein - Negative Bedside Urine Urobilinogen - Negative Bedside Urine Nitrite - Negative Bedside Urine Leukocytes + 70 Esterase Imaging Data Chest x-ray: Radiologist's Impression: Launch?Image [address] [address] XRay Report Signed Patient: Josue Mesa MR#: [id number] : 1955 Acct:[id number] Age/Sex: 65 / M Date of Service: 01/27/21 Loc: ED Accession Number: [id number] ?? Procedure: XR chest 1V Ordering Provider: Vanessa Watts D.O. PROCEDURE:? XR CHEST 1V ? INDICATIONS:? suspected sepsis ? TECHNIQUE:? One view of the chest was acquired.? ? COMPARISON:? [facility], , CHEST FOR PICC PLACEMENT, 03/02/2017, 13:36.? [facility], CHEST 1 VIEW, 02/27/2017, 3:59. ? FINDINGS:? ? Surgical changes and devices:? None.? ? Lungs and pleura:? An incomplete inspiratory result is noted, causing a crowded appearance to the lung markings.? No focal infiltrates are seen.? No pneumothor ax or significant pleural effusions are seen. ? Mild generalized interstitial prominence can be seen. ? Mediastinum:? Mediastinal contours appear normal.? Heart size is normal.? ? Bones and chest wall:? No suspicious bony lesions.? Age-appropriate bony degenerative changes are seen.? Overlying soft tissues appear unremarkable.? ? ? IMPRESSION:? Limited study with low lung volumes. ? Interstitial prominence can be seen, which is likely related to artifact from the incomplete inspiratory result.? Differential diagnosis would also include pulmonary edema and atypical/viral infiltrate, yet this is considered to be less likely. ? If clinically appropriate, a short-term followup chest series (with PA and lateral views) performed in deep inspiration is suggested for further evaluation.? ? ? Dictated by: Tyrone Vila M.D. on 01/27/2021 at 16:17 ? ? Approved by: Tyrone Vila M.D. on 01/27/2021 at 16:18? ECG Data Attestation: I personally reviewed and interpreted this ECG as follows: Interpretation: Sinus rhythm Ventricular rate 93 Normal axis Normal QRS Normal QTC No ST T wave changes MDM Narrative Medical decision making narrative: Patient is nontoxic appearing. Is not tachycardic. His labs are unremarkable. Chest x-ray is unremarkable. Urinalysis is unremarkable. He received 2 L of fluid in stated that he felt much better afterwards. He was able to tolerate oral intake. He was initially given a dose of Rocephin for concern of presentation about possible sepsis although after further time here in the emergency department I feel this is less likely. Blood sugars unremarkable. Had a discussion with him regarding his symptoms. He stated that he felt like he could return home. He does have a walker that he can use at home. I do feel that the patient needs admitted to the hospital based on his improvement of symptoms and his laboratory studies here in the ER. He was given strict return precautions. He expressed understanding agreement plan. Discharge Plan Departure Patient Disposition: Home Clinical Impression: Dehydration, Weakness Instructions: DI for Dehydration -- Adult Activity Restrictions/Additional Instructions: I recommend that you continue to take all of your medications as directed. Should increase her fluid intake. Contact your primary provider for a follow- up. Return to the emergency department for any new or worsening symptoms. Prescriptions: No Action gabapentin 800 MG tablet 1,200 mg PO TID Qty: 0 0RF furosemide 80 MG tablet 80 mg PO TID Qty: 0 0RF enalapril maleate 20 MG tablet 20 mg PO Q DAY Qty: 0 0RF Durezol 0.05 % drops 1 drp EYE-LEFT DAILY Qty: 0 0RF Rx Instructions: Into affected eye(s); start 24 hours after surgery, continue for the first 2 weeks of post-op period; decrease to BID for 1 week, then taper based upon response Lantus Solostar U-100 Insulin 100 UNIT/1 ML insulin pen 50 unit SQ BID Qty: 30 0RF acetaminophen [Tylenol Extra Strength] 500 MG tablet 1,000 mg PO Q4H PRN (Reason: Pain) Qty: 0 0RF multivitamin Capsule 1 cap PO DAILY 0RF fluticasone propionate [24 Hour Allergy Relief] 50 mcg/actuation spray,suspension 2 spray INTRANASAL DAILY 0RF Durezol 0.05 % Drops 1 drp EYE-RIGHT BID 0RF tamsulosin 0.4 mg capsule 0.4 mg PO BID 0RF vitamin B complex Capsule 1 cap PO DAILY 0RF polyethylene glycol 3350 17 gram/dose Powder 17 g PO DAILY 0RF ondansetron 4 mg Tablet,Disintegrating 1 - 2 tab PO Q6H PRN (Reason: Nausea) 0RF Rx Instructions: Place on top of tongue and allow it to dissolve, do not chew or cut pantoprazole [address] For Susp In Packet 40 mg PO DAILY 0RF primidone 50 mg Tablet 150 tab PO BID 0RF bisacodyl 5 mg Tablet 10 mg PO DAILY 0RF Novolog Mix 70-30 U-100 Insuln 100 unit/mL (70-30) Solution 25 unit SUBCUT TID 0RF Rx Instructions: Inject by subcutaneous route as per insulin protocol with meals oxycodone 10 mg Tablet 10 mg PO Q4H PRN (Reason: Pain) 0RF Referrals: Guillermina Hair MD [Primary Care Provider] -
--- NOTE | 2021-01-27 19:32 | PC.NURSE ---
O2 turned off to observe how pt tolerates RA
[2021-01-27] MEDS: SODIUM CHLORIDE 0.9% 1,000 ML 1000 ML IV ×2 (19:50→21:42)
[2021-01-27 23:56] LABS: Bacteria Urine None Seen; RBC Urine 0-1/HPF (0-5/HPF); WBC Urine 0-1/HPF (0-5/HPF)
[2021-01-28] VITALS: BP 141/65; PULSE 74; RESP 17; O2SAT 95
[2021-01-28 00:15] VITALS: BP 144/65; PULSE 74; RESP 17; O2SAT 95
== END 2021-01-28 00:30 | disposition home or self-care (01) ==
PROVIDERS: Emergency Medicine; Emergency Provider Emergency Medicine; PCP Internal Medicine
DX: E86.0 Dehydration (principal); R53.1 Weakness; N39.0 Urinary tract infection, site not specified; B95.2 Enterococcus as the cause of diseases classified elsewhere; Z88.0 Allergy status to penicillin; Z88.1 Allergy status to other antibiotic agents; Z20.822 Contact with and (suspected) exposure to COVID-19
CPT/HCPCS: 36415; 51798; 71045; 80053; 81003; 81015; 82550; 83605; 83690; 84145; 84484; 85025; 85610; 85730; 87040; 87077; 87086; 87185; 87186; 87635; 93005; 93010; 96361; 96374; 99285; C9803; J0696

== ENCOUNTER → 2021-03-10 08:00 | Outpatient (ROUT) | payer MEDICARE, MEDICAID, SELFPAY ==
[2021-03-10 10:05] LABS: Add Manual Diff / Slide Review NO; Basophils Absolute Auto 100 /uL (0-100); Eosinophils Absolute Auto 1000 /uL (0-450); Eosinophils Percent Auto 14.1 % (2-4); Hemoglobin 10.7 g/dL (13.5-17.5); Lymphocytes Absolute Auto 2300 /uL (1100-4500); Lymphocytes Percent Auto 32.9 % (25-40); Mean Corpuscular HGB Conc 33.4 % (30-36); Mean Corpuscular Hemoglobin 30.3 PG (26-34); Mean Corpuscular Volume 90.7 fL (80-100); Monocytes Absolute Auto 500 /uL (0-900); Monocytes Percent Auto 6.4 % (3-14); Neutrophils Absolute Auto 3200 /uL (1500-7000); Neutrophils Percent Auto 45.6 % (50-75); Platelet Count 155 X10^3/uL (150-400); Red Blood Cell Count 3.52 X10^6/uL (4.5-5.9); White Blood Cell Count 7.1 X10^3/uL (4.5-11.0)
[2021-03-10 10:37] LABS: Erythrocyte Sedimentation Rate 34 MM/HR (0-15)
[2021-03-10 10:50] LABS: Blood Urea Nitrogen 19 mg/dL (9-20); C-Reactive Protein Quant 1.4 mg/dL (<1.0); Calcium 9.2 mg/dL (8.4-10.2); Carbon Dioxide 29 mmol/L (22-32); Chloride 104 mmol/L (98-107); Estimated Glomerular Filt Rate > 60.0 mL/min (>60); Glucose 137 mg/dL (80-110); HEMOLYSIS < 15 (0-50); Potassium 4.5 mmol/L (3.4-5.1); Sodium 140 mmol/L (137-145)
[2021-03-10 11:07] LABS: Thyroid Stimulating Hormone 1.67 uIU/mL (0.47-4.68)
[2021-03-10 11:16] LABS: Prostate Specific Antigen 1.37 ng/mL (0.10-4.00)
[2021-03-10 11:35] LABS: Vitamin B12 293 pg/mL (239-931)
== END ==
PROVIDERS: PCP Internal Medicine; Visit Provider Internal Medicine
DX: E11.9 Type 2 diabetes mellitus without complications (principal)
CPT/HCPCS: 36415; 80048; 82607; 83036; 84153; 84443; 85025; 85651; 86140

== ENCOUNTER → 2021-06-18 09:38 | Outpatient (CLI) | payer MEDICARE, MEDICAID, SELFPAY | PROVIDERS: PCP Internal Medicine; Referring Provider Podiatrist; Visit Provider Nurse Practitioner Family | DX: E11.621 Type 2 diabetes mellitus with foot ulcer (principal); L97.412 Non-pressure chronic ulcer of right heel and midfoot with fat layer exposed; L97.512 Non-pressure chronic ulcer of other part of right foot with fat layer exposed; L84 Corns and callosities; L08.9 Local infection of the skin and subcutaneous tissue, unspecified; R60.0 Localized edema; E11.40 Type 2 diabetes mellitus with diabetic neuropathy, unspecified; E11.610 Type 2 diabetes mellitus with diabetic neuropathic arthropathy; M14.671 Charcot's joint, right ankle and foot; M14.672 Charcot's joint, left ankle and foot; I10 Essential (primary) hypertension; E66.9 Obesity, unspecified; Z68.41 Body mass index [BMI] 40.0-44.9, adult; Z89.421 Acquired absence of other right toe(s); Z79.4 Long term (current) use of insulin; Z79.84 Long term (current) use of oral hypoglycemic drugs | CPT/HCPCS: 11042; 87070; 87075; 87077; 87147; 87186; 87205; 93923; 97597; 99214 ==

== ENCOUNTER → 2021-06-25 13:59 | Outpatient (CLI) | payer MEDICARE, MEDICAID, SELFPAY | PROVIDERS: PCP Internal Medicine; Referring Provider Podiatrist; Visit Provider Obstetrics & Gynecology Maternal & Fetal Medicine | DX: E11.621 Type 2 diabetes mellitus with foot ulcer (principal); L97.412 Non-pressure chronic ulcer of right heel and midfoot with fat layer exposed; L84 Corns and callosities; S90.414A Abrasion, right lesser toe(s), initial encounter | CPT/HCPCS: 99213 ==

== ENCOUNTER 2021-06-28 11:21 | Emergency (ER) | payer MEDICARE, MEDICAID, SELFPAY ==
[2021-06-28 12:13] VITALS: BP 124/58; PULSE 80; RESP 18; TEMP 36.6; O2SAT 96; BMI 41.5
[2021-06-28] MEDS: FLUORESCEIN 1 MG STRIP EYE-LEFT (16:50)
[2021-06-28 16:53] VITALS: BP 142/67; PULSE 72; RESP 18; O2SAT 99
--- NOTE | 2021-06-28 17:01 | ED_ITS ---
HPI - Eye Problem <Nish Pineda PA-C - Last Filed: 06/28/21 17:08> General Chief complaint: Eye Problems Stated complaint: left eye swollen shut Time Seen by Provider: 06/28/21 12:16 Source: patient Mode of arrival: Wheelchair History of Present Illness HPI Narrative: 65-year-old male with past medical history type 2 diabetes presents ED with 1 day left-sided eye pain. Patient states that his symptoms of eye pain started upon awakening this morning, he was unable to open his left eye due to the pain. Patient denies known eye trauma. Patient denies visual changes. Patient had cataract surgery 2 years ago. Patient regularly sees a retina specialist, is on prednisolone and Restasis eyedrops. Related Data Home Medications Medication Instructions Recorded Confirmed gabapentin 800 mg tablet 1,200 mg PO TID #0 10/07/12 09/10/19 furosemide 80 mg tablet 80 mg PO TID #0 10/15/15 09/10/19 difluprednate 0.05 % eye drops 1 drp EYE-LEFT DAILY #0 03/06/16 09/10/19 (Durezol) enalapril maleate 20 mg tablet 20 mg PO Q DAY #0 03/06/16 09/10/19 acetaminophen 500 mg tablet 1,000 mg PO Q4H PRN #0 02/27/17 09/10/19 (Tylenol Extra Strength) bisacodyl 5 mg tablet 10 mg PO DAILY 02/07/18 09/10/19 insulin aspar prt-insulin aspart 25 unit SUBCUT TID 02/07/18 09/10/19 100 unit/mL (70-30) subcutaneous soln (Novolog Mix 70-30 U-100 Insuln) ondansetron 4 mg disintegrating 1 - 2 tab PO Q6H PRN 02/07/18 09/10/19 tablet oxycodone 10 mg tablet 10 mg PO Q4H PRN 02/07/18 09/10/19 pantoprazole 40 mg granules 40 mg PO DAILY 02/07/18 09/10/19 delayed-release for susp in packet polyethylene glycol 3350 17 17 g PO DAILY 02/07/18 09/10/19 gram/dose oral powder primidone 50 mg tablet 150 tab PO BID 02/07/18 09/10/19 difluprednate 0.05 % eye drops 1 drp EYE-RIGHT BID 11/02/18 09/10/19 (Durezol) fluticasone propionate 50 2 spray INTRANASAL DAILY 11/02/18 09/10/19 mcg/actuation nasal spray,suspension (24 Hour Allergy Relief) multivitamin 1 cap PO DAILY 11/02/18 09/10/19 tamsulosin 0.4 mg capsule 0.4 mg PO BID 11/02/18 09/10/19 vitamin B complex 1 cap PO DAILY 11/02/18 09/10/19 Previous Rx's Medication Instructions Recorded insulin glargine 100 unit/mL (3 50 unit (0.5 mL) SQ BID #30 03/09/16 mL) subcutaneous pen (Lantus Solostar U-100 Insulin) Allergies Allergy/AdvReac Type Severity Reaction Status Date / Time amoxicillin [From AUGMENTIN] AdvReac Unknown UPSET Verified 06/28/21 12:20 STOMACH clavulanic acid AdvReac Unknown UPSET Verified 06/28/21 12:20 [From AUGMENTIN] STOMACH Review of Systems <Nish Pineda PA-C - Last Filed: 06/28/21 17:08> Review of Systems ROS Unobtainable: All systems reviewed & are unremarkable except as noted in HPI and below Constitutional Constitutional: Denies chills, Denies fatigue, Denies fever(s), Denies frequent falls, Denies lethargy and Denies weakness Eyes Eyes: Denies blurry vision, Denies change in vision, Denies eye discharge, Reports irritation and Denies loss of vision ENT Ears, Nose, Mouth, and Throat: Denies change in voice, Denies dizziness, Denies neck pain, Denies sore throat and Denies throat swelling Cardiovascular Cardiovascular: Denies chest pain, Denies irregular heart rhythm, Denies lightheadedness, Denies palpitations, Denies dyspnea, Denies dyspnea on exertion and Denies orthopnea Respiratory Respiratory: Denies cough, Denies dyspnea, Denies dyspnea on exertion and Denies wheezing Gastrointestinal Gastrointestinal: Denies abdominal pain, Denies change in bowel habits, Denies diarrhea, Denies nausea and Denies vomiting Genitourinary Genitourinary: Denies hematuria, Denies flank pain, Denies urinary incontinence and Denies urinary urgency Musculoskeletal Musculoskeletal: Denies back pain, Denies muscle weakness, Denies neck pain, Denies numbness and Denies tingling Integumentary/Breasts Skin/Breast: Denies pruritus, Denies erythema, Denies rash and Denies wounds Neurologic Neurologic: Denies behavioral changes, Denies confusion, Denies dizziness, Denies frequent falls, Denies loss of vision, Denies numbness, Denies tingling and Denies weakness Psychiatric Psychiatric: Denies anxiety, Denies behavioral changes, Denies confusion, Denies depression, Denies homicidal ideation and Denies suicidal ideation Endocrine Endocrine: Denies fatigue, Denies flushing and Denies palpitations Hematologic/Lymphatic Hematologic/Lymphatic: Denies easy bruising Allergic/Immunologic Allergic/Immunologic: Denies urticaria, Denies throat swelling and Denies wheezing Patient History <Nish Pineda PA-C - Last Filed: 06/28/21 17:08> Medical History Cellulitis (02/27/17) Chronic ulcer of right foot limited to breakdown of skin Closed non-physeal fracture of proximal phalanx of great toe with malunion Depression Diabetes Essential tremor Hypertension Insulin dependent diabetes mellitus Morbid obesity MRSA (methicillin resistant Staphylococcus aureus) (02/27/17) Peripheral autonomic neuropathy Peripheral vascular disease Polypharmacy Sepsis (02/27/17) Sleep apnea Thrombocytopenia Toe amputation status Visit for wound care Social History household members: caregiver Smoking Status: Never smoker Smoking Status: Never smoker alcohol intake frequency: other Substance Use Type: does not use Exam <Nish Pineda PA-C - Last Filed: 06/28/21 17:08> Initial Vital Signs Initial Vital Signs: Vital Signs Temperature 97.8 F 06/28/21 12:13 Pulse Rate 80 06/28/21 12:13 Respiratory Rate 18 06/28/21 12:13 Blood Pressure 124/58 L 06/28/21 12:13 Pulse Oximetry 96 06/28/21 12:13 Const General: cooperative, healthy appearing and comfortable [facility] Head: normal to inspection Eyes Other: Conjunctival injection of left eye. Bilateral upper and lower eyelids with blepharitis. No corneal abrasions noted on fluorescein exam. No foreign objects visualized on eyelid eversion. Resp Effort & Inspection: normal respiratory effort Cardio Rate: regular rate Skin General: no rashes or lesions noted Neuro General: patient alert, patient awake and patient oriented x3 Psych Appearance: grossly normal Mental Status: mental status grossly normal <Per Stephenson DO - Last Filed: 07/03/21 01:37> Initial Vital Signs Initial Vital Signs: Vital Signs Temperature 97.8 F 06/28/21 12:13 Pulse Rate 80 06/28/21 12:13 Respiratory Rate 18 06/28/21 12:13 Blood Pressure 124/58 L 06/28/21 12:13 Pulse Oximetry 96 06/28/21 12:13 Course <Nish Pineda PA-C - Last Filed: 06/28/21 17:08> Orders Ordered: Discontinued Medications Fluorescein Sodium (Fluorescein 1 Mg Strip) 1 mg EYE-LEFT NOW ONE Stop: 06/28/21 16:25 Last Admin: 06/28/21 16:50 Dose: 1 mg Documented by: YAMILETH Vital Signs Vital signs: Vital Signs - 8 hr 06/28/21 12:13 06/28/21 16:53 Temperature 97.8 F Pulse Rate 80 72 Respiratory Rate 18 18 Blood Pressure 124/58 L 142/67 H Pulse Oximetry 96 99 <Per Stephenson DO - Last Filed: 07/03/21 01:37> Orders Ordered: Discontinued Medications Fluorescein Sodium (Fluorescein 1 Mg Strip) 1 mg EYE-LEFT NOW ONE Stop: 06/28/21 16:25 Last Admin: 06/28/21 16:50 Dose: 1 mg Documented by: YAMILETH Vital Signs Vital signs: Vital Signs - 8 hr 06/28/21 12:13 06/28/21 16:53 Temperature 97.8 F Pulse Rate 80 72 Respiratory Rate 18 18 Blood Pressure 124/58 L 142/67 H Pulse Oximetry 96 99 Discharge Plan Departure Patient Disposition: Home Clinical Impression: Eye pain Instructions: DI for Eye Pain Activity Restrictions/Additional Instructions: You were evaluated in the ED today for left-sided eye pain. Your eye exam was reassuring, did not show any evidence of debris or corneal abrasions. Your symptoms largely resolved with anesthetic drops. Your symptoms are likely due to blepharitis. Please follow-up with an eye doctor as soon as possible. Return to the ED if your symptoms worsen. Prescriptions: No Action gabapentin 800 MG tablet 1,200 mg PO TID Qty: 0 0RF furosemide 80 MG tablet 80 mg PO TID Qty: 0 0RF enalapril maleate 20 MG tablet 20 mg PO Q DAY Qty: 0 0RF Durezol 0.05 % drops 1 drp EYE-LEFT DAILY Qty: 0 0RF Rx Instructions: Into affected eye(s); start 24 hours after surgery, continue for the first 2 weeks of post-op period; decrease to BID for 1 week, then taper based upon resp onse Lantus Solostar U-100 Insulin 100 UNIT/1 ML insulin pen 50 unit SQ BID Qty: 30 0RF acetaminophen [Tylenol Extra Strength] 500 MG tablet 1,000 mg PO Q4H PRN (Reason: Pain) Qty: 0 0RF multivitamin Capsule 1 cap PO DAILY 0RF fluticasone propionate [24 Hour Allergy Relief] 50 mcg/actuation spray,suspension 2 spray INTRANASAL DAILY 0RF Durezol 0.05 % Drops 1 drp EYE-RIGHT BID 0RF tamsulosin 0.4 mg capsule 0.4 mg PO BID 0RF vitamin B complex Capsule 1 cap PO DAILY 0RF polyethylene glycol 3350 17 gram/dose Powder 17 g PO DAILY 0RF ondansetron 4 mg Tablet,Disintegrating 1 - 2 tab PO Q6H PRN (Reason: Nausea) 0RF Rx Instructions: Place on top of tongue and allow it to dissolve, do not chew or cut pantoprazole [address] For Susp In Packet 40 mg PO DAILY 0RF primidone 50 mg Tablet 150 tab PO BID 0RF bisacodyl 5 mg Tablet 10 mg PO DAILY 0RF Novolog Mix 70-30 U-100 Insuln 100 unit/mL (70-30) Solution 25 unit SUBCUT TID 0RF Rx Instructions: Inject by subcutaneous route as per insulin protocol with meals oxycodone 10 mg Tablet 10 mg PO Q4H PRN (Reason: Pain) 0RF Referrals: Guillermina Hair MD [Primary Care Provider] - <Per Stephenson DO - Last Filed: 07/03/21 01:37> Cosign ED Attending Perature Attestation: I was immediately available in the department for consultation. Documentation has been reviewed. I agree with assessment and plan.
== END 2021-06-28 16:58 | disposition home or self-care (01) ==
PROVIDERS: Emergency Provider Student in an Organized Health Care Education/Training Program; PCP Internal Medicine
DX: H57.12 Ocular pain, left eye (principal)
CPT/HCPCS: 99282

== ENCOUNTER → 2021-07-02 11:16 | Outpatient (CLI) | payer MEDICARE, MEDICAID, SELFPAY | PROVIDERS: PCP Internal Medicine; Referring Provider Internal Medicine; Visit Provider Nurse Practitioner Family | DX: E11.621 Type 2 diabetes mellitus with foot ulcer (principal); L97.412 Non-pressure chronic ulcer of right heel and midfoot with fat layer exposed; L84 Corns and callosities; L08.9 Local infection of the skin and subcutaneous tissue, unspecified; R60.0 Localized edema; E11.40 Type 2 diabetes mellitus with diabetic neuropathy, unspecified; E11.610 Type 2 diabetes mellitus with diabetic neuropathic arthropathy; M14.671 Charcot's joint, right ankle and foot; M14.672 Charcot's joint, left ankle and foot; I10 Essential (primary) hypertension; E66.01 Morbid (severe) obesity due to excess calories; Z89.421 Acquired absence of other right toe(s) | CPT/HCPCS: 11042; 99212 ==

== ENCOUNTER → 2021-07-09 09:51 | Outpatient (CLI) | payer MEDICARE, MEDICAID, SELFPAY | PROVIDERS: PCP Internal Medicine; Referring Provider Internal Medicine; Visit Provider Nurse Practitioner Family | DX: E11.621 Type 2 diabetes mellitus with foot ulcer (principal); L97.412 Non-pressure chronic ulcer of right heel and midfoot with fat layer exposed; L84 Corns and callosities; R60.0 Localized edema; E11.40 Type 2 diabetes mellitus with diabetic neuropathy, unspecified; E11.610 Type 2 diabetes mellitus with diabetic neuropathic arthropathy; M14.671 Charcot's joint, right ankle and foot; M14.672 Charcot's joint, left ankle and foot; I10 Essential (primary) hypertension; E66.9 Obesity, unspecified; Z68.41 Body mass index [BMI] 40.0-44.9, adult; Z89.421 Acquired absence of other right toe(s) | CPT/HCPCS: 11042; 99212 ==

== ENCOUNTER → 2021-07-14 13:54 | Outpatient (CLI) | payer MEDICARE, MEDICAID, SELFPAY | PROVIDERS: PCP Internal Medicine; Referring Provider Internal Medicine; Visit Provider Family Medicine | DX: E11.621 Type 2 diabetes mellitus with foot ulcer (principal); L97.412 Non-pressure chronic ulcer of right heel and midfoot with fat layer exposed; L84 Corns and callosities | CPT/HCPCS: 29445 ==

== ENCOUNTER → 2021-07-16 09:38 | Outpatient (CLI) | payer MEDICARE, MEDICAID, SELFPAY | PROVIDERS: PCP Internal Medicine; Referring Provider Podiatrist; Visit Provider Nurse Practitioner Family | DX: E11.621 Type 2 diabetes mellitus with foot ulcer (principal); L97.412 Non-pressure chronic ulcer of right heel and midfoot with fat layer exposed; L84 Corns and callosities; R60.0 Localized edema; E11.610 Type 2 diabetes mellitus with diabetic neuropathic arthropathy; M14.671 Charcot's joint, right ankle and foot; M14.672 Charcot's joint, left ankle and foot; E11.40 Type 2 diabetes mellitus with diabetic neuropathy, unspecified; Z89.421 Acquired absence of other right toe(s) | CPT/HCPCS: 11042 ==

== ENCOUNTER → 2021-07-23 12:03 | Outpatient (CLI) | payer MEDICARE, MEDICAID, SELFPAY | PROVIDERS: PCP Internal Medicine; Referring Provider Internal Medicine; Visit Provider Nurse Practitioner Family | DX: E11.40 Type 2 diabetes mellitus with diabetic neuropathy, unspecified (principal); E11.610 Type 2 diabetes mellitus with diabetic neuropathic arthropathy; M14.671 Charcot's joint, right ankle and foot; M14.672 Charcot's joint, left ankle and foot; I10 Essential (primary) hypertension; E66.9 Obesity, unspecified; Z89.421 Acquired absence of other right toe(s); Z68.41 Body mass index [BMI] 40.0-44.9, adult; Z86.31 Personal history of diabetic foot ulcer | CPT/HCPCS: 99212; 99213 ==

== ENCOUNTER → 2021-08-06 10:28 | Outpatient (CLI) | payer MEDICARE, MEDICAID, SELFPAY | PROVIDERS: PCP Internal Medicine; Referring Provider Internal Medicine; Visit Provider Nurse Practitioner Family | DX: Z09 Encounter for follow-up examination after completed treatment for conditions other than malignant neoplasm (principal); E11.40 Type 2 diabetes mellitus with diabetic neuropathy, unspecified; M14.671 Charcot's joint, right ankle and foot; M14.672 Charcot's joint, left ankle and foot; I10 Essential (primary) hypertension; E66.9 Obesity, unspecified; Z89.421 Acquired absence of other right toe(s); Z86.31 Personal history of diabetic foot ulcer; Z79.4 Long term (current) use of insulin; Z79.84 Long term (current) use of oral hypoglycemic drugs | CPT/HCPCS: 99212; 99213 ==

== ENCOUNTER → 2022-01-14 14:50 | Outpatient (CLI) | payer MEDICARE, MEDICAID, SELFPAY ==
--- NOTE | 2022-01-14 | DI.MRI.S_ITS ---
PROCEDURE: MR HEAD/BRAIN WO/W CON INDICATIONS: Other abnormalities of gait and mobility TECHNIQUE: Noncontrast axial T1 spin echo, axial T2 fast spin echo, sagittal and axial FLAIR, coronal T2 fast spin echo, axial gradient echo, axial diffusion and ADC through the brain. After the administration of contrast, axial and coronal and sagittal T1 spin echo with fat saturation through the brain. COMPARISON: [facility], CT, CT HEAD/BRAIN WO CON, 09/15/2017, 3:26. [facility], CT, HEAD WITHOUT CONTRAST, 03/05/2016, 19:32. [facility], CT, HEAD WITHOUT CONTRAST, 05/29/2015, 4:01. FINDINGS: Image quality: Excellent. CSF spaces: Basal cisterns are patent. No extra-axial fluid collections. Ventricles are normal in size and shape. Brain: No midline shift. No intracranial bleeds or masses. No abnormal intracranial enhancement. There is cerebral volume loss for age. There is periventricular white matter chronic small vessel ischemic change. The brainstem appears normal. Diffusion-weighted images demonstrate no acute ischemic insults. No chronic ischemic insults. Normal intravascular flow voids are present. Skull and face: Calvarial marrow is normal in signal. Orbits appear normal. Note is made of bilateral lens replacements. Sinuses: Sinuses and mastoids appear clear. IMPRESSION: No findings of acute or subacute infarction can be seen. Note is made of age-appropriate brain parenchymal volume loss and chronic small vessel ischemic changes. No masses or abnormal enhancement can be seen. Dictated by: Tyrone Vila M.D. on 01/14/2022 at 15:08 Approved by: Tyrone Vila M.D. on 01/14/2022 at 15:10
== END ==
PROVIDERS: PCP Internal Medicine; Referring Provider Psychiatry & Neurology Neurology; Visit Provider Psychiatry & Neurology Neurology
DX: R26.89 Other abnormalities of gait and mobility (principal); G25.0 Essential tremor
CPT/HCPCS: 70553

== ENCOUNTER 2022-01-16 11:58 | Observation (INO) | payer MEDICARE, MEDICAID, SELFPAY ==
[2022-01-16] VITALS (25 sets, daily range): BP systolic 98–134; BP diastolic 44–84; PULSE 63–97; RESP 14–23; TEMP 36.1–39.6; O2SAT 93–100; BMI 45.3
[2022-01-16] MEDS: SODIUM CHLORIDE 0.9% 1,000 ML 1000 ML IV (12:07)
--- NOTE | 2022-01-16 12:21 | DI.RAD.S_ITS ---
PROCEDURE: XR CHEST 1V INDICATIONS: suspected sepsis TECHNIQUE: One view of the chest was acquired. COMPARISON: [facility], CR, XR CHEST 1V, 01/27/2021, 17:07. FINDINGS: This evaluation is limited, secondary to the patient's inability to fully cooperate with the examination. Surgical changes and devices: None. Lungs and pleura: On this supine examination, no large pneumothorax or large pleural effusions are seen. No focal areas of lung consolidation are seen. Low lung volumes are noted. This causes a crowded appearance to the lung markings and limits evaluation. Mediastinum: Mediastinal contours appear normal. Heart size is normal. Bones and chest wall: No suspicious bony lesions. Age-appropriate bony degenerative changes are seen. Overlying soft tissues appear unremarkable. IMPRESSION: Limited portable chest study, without a kieran, acute abnormality seen. If clinically appropriate, a short-term followup chest series (with PA and lateral views) performed in deep inspiration versus a chest CT would be suggested for further evaluation. Dictated by: Tyrone Vila M.D. on 01/16/2022 at 11:59 Approved by: Tyrone Vila M.D. on 01/16/2022 at 12:00
[2022-01-16 12:28] LABS: INR 1.2 (0.9-1.3); Prothrombin Time 14.2 SECONDS (10.1-12.7)
[2022-01-16 12:31] LABS: Add Manual Diff / Slide Review NO; Basophils Absolute Auto 0 /uL (0-100); Basophils Percent Auto 0.6 % (0-2); Eosinophils Absolute Auto 100 /uL (0-450); Eosinophils Percent Auto 1.4 % (2-4); Hematocrit 34.8 % (41-53); Hemoglobin 11.8 g/dL (13.5-17.5); Lymphocytes Absolute Auto 900 /uL (1100-4500); Lymphocytes Percent Auto 11.3 % (25-40); Mean Corpuscular Hemoglobin 30.6 PG (26-34); Mean Corpuscular Volume 90.1 fL (80-100); Monocytes Absolute Auto 500 /uL (0-900); Monocytes Percent Auto 6.3 % (3-14); Neutrophils Absolute Auto 6600 /uL (1500-7000); Neutrophils Percent Auto 80.4 % (50-75); PTT Partial Thromboplastin Tim 26 SECONDS (26-36); Platelet Count 197 X10^3/uL (150-400); Red Blood Cell Count 3.86 X10^6/uL (4.5-5.9); Red Cell Distribution Width 13.8 % (11.6-14.8); White Blood Cell Count 8.3 X10^3/uL (4.5-11.0)
[2022-01-16 12:39] LABS: Lactate (Lactic Acid) 1.7 mmol/L (0.7-2.1)
[2022-01-16 12:40] LABS: Alanine Aminotransferase 33 IU/L (<50); Albumin 4.2 g/dL (3.5-5.0); Albumin Globulin Ratio 1.1 (1.0-2.8); Alkaline Phosphatase 97 U/L (38-126); Aspartate Aminotransferase 90 IU/L (17-59); BUN Creatinine Ratio 16.7 (6-22); Bilirubin Total 0.5 mg/dL (0.2-1.3); Blood Urea Nitrogen 16 mg/dL (9-20); Calcium 9.4 mg/dL (8.4-10.2); Carbon Dioxide 36 mmol/L (22-32); Chloride 97 mmol/L (98-107); Estimated Glomerular Filt Rate > 60 mL/min (>60); Globulin 3.8 g/dL (1.7-4.1); Glucose 140 mg/dL (80-110); HEMOLYSIS < 15 (0-50); Lipase 31 U/L (23-300); Sodium 140 mmol/L (137-145)
[2022-01-16 12:57] LABS: Procalcitonin 0.18 ng/mL (<0.5)
[2022-01-16] MEDS: ACETAMINOPHEN 325 MG TABLET 975 MG PO (13:03)
[2022-01-16 13:08] LABS: Influenza A - CEPHEID Flu A NEGATIVE (NEGATIVE); Influenza B - CEPHEID Flu B NEGATIVE (NEGATIVE); Respiratory Syncytial Virus Negative (Negative)
[2022-01-16 13:09] LABS: COVID-19 CEPHEID 4-PLEX PCR Negative (Negative)
[2022-01-16] MEDS: LACTATED RINGERS 1474.18 ML IV (13:44)
[2022-01-16] MEDS: IBUPROFEN 400 MG TABLET 800 MG PO (13:45)
--- NOTE | 2022-01-16 14:02 | ED.FEVER ---
HPI - Fever General Chief Complaint: Altered Mental Status Stated Complaint: AMS, Rt foot infection, GLF today Time Seen by Provider: 01/16/22 13:17 History of Present Illness HPI Narrative: Patient brought in by ambulance from assisted living at [facility]. Patient has history diabetes and essential tremor. Patient has a chronic right foot/toe diabetic wound that seems to be getting worse. There is red streaking to the anterior right leg. No current antibiotics. Patient states he got up use his walker to go the bathroom. On the way back to his bed he felt weak. He tried to lay down on the bed based slid off of it. Denies any injury from sliding off the bed. Did not hit his head. Fever noted. Blood cultures and lactic acid and procalcitonin started. Antibiotics have been started as well. IV fluids have been started as well. Patient is awake alert oriented x4. Fever medication Tylenol and ibuprofen has been provided as well. Patient in no distress. Denies any urinary complaints. No cough cold congestion, no vomiting diarrhea. No abdominal pain or chest pain. No headache. Related Data Home Medications Medication Instructions Recorded Confirmed gabapentin 800 mg tablet 1,200 mg PO TID ##0 10/07/12 01/16/22 furosemide 80 mg tablet 40 mg PO BID ##0 10/15/15 01/16/22 enalapril maleate 20 mg tablet 20 mg PO Q DAY ##0 03/06/16 01/16/22 acetaminophen 500 mg tablet 1,000 mg PO Q4H PRN Pain ##0 02/27/17 01/16/22 (Tylenol Extra Strength) bisacodyl 5 mg tablet 10 mg PO PRN PRN Constipation 02/07/18 01/16/22 oxycodone 10 mg tablet 10 mg PO Q4H PRN Pain 02/07/18 01/16/22 polyethylene glycol 3350 17 17 g PO PRN PRN Constipation 02/07/18 01/16/22 gram/dose oral powder primidone 50 mg tablet 250 tab PO BID 02/07/18 01/16/22 fluticasone propionate 50 2 spray intranasal DAILY 11/02/18 01/16/22 mcg/actuation nasal spray,suspension (24 Hour Allergy Relief) multivitamin 1 cap PO DAILY 11/02/18 01/16/22 vitamin B complex 1 cap PO DAILY 11/02/18 01/16/22 insulin glargine 100 unit/mL (3 See Rx Instructions .Route .COMPLEX 01/16/22 01/16/22 mL) subcutaneous pen (Lantus Solostar U-100 Insulin) pantoprazole 40 mg tablet,delayed 40 mg PO DAILY 01/16/22 01/16/22 release Previous Rx's Medication Instructions Recorded clindamycin HCl 300 mg capsule 300 mg PO Q6H #12 caps 01/17/22 levofloxacin 750 mg tablet 750 mg PO DAILY #4 tabs 01/17/22 Allergies Allergy/AdvReac Type Severity Reaction Status Date / Time amoxicillin [From AUGMENTIN] AdvReac Mild UPSET Verified 01/17/22 11:34 STOMACH clavulanic acid AdvReac Mild UPSET Verified 01/17/22 11:35 [From AUGMENTIN] STOMACH Review of Systems Review of Systems Narrative: GENERAL: Positive chills, fatigue, malaise, fever, sweats. HEENT: negative sinus pain, ear pain, sore throat RESPIRATORY: negative dyspnea, cough CARDIOVASCULAR: negative chest pain, palpitations GASTROINTESTINAL: negative nausea, vomiting, abdominal pain : negative dysuria, frequency, hematuria MUSCULOSKELETAL: negative muscle or bony pain SKIN: negative rash, skin lesions NEUROLOGIC: negative weakness, numbness ROS Unobtainable: All systems reviewed & are unremarkable except as noted in HPI and below Patient History Medical History (Updated 01/16/22 @ 21:05 by CARLOS A Franklin-BEAU) Cellulitis (02/27/17) Chronic ulcer of right foot limited to breakdown of skin Closed non-physeal fracture of proximal phalanx of great toe with malunion Depression Diabetes Essential tremor History of non-ST elevation myocardial infarction (NSTEMI) Hypertension Insulin dependent diabetes mellitus Morbid obesity MRSA (methicillin resistant Staphylococcus aureus) (02/27/17) AGATHA treated with BiPAP Peripheral autonomic neuropathy Peripheral vascular disease Polypharmacy Sedentary lifestyle Sepsis (02/27/17) Severe muscle deconditioning Sleep apnea Thrombocytopenia Toe amputation status Visit for wound care Surgical History (Updated 01/16/22 @ 21:04 by CARLOS A Franklin-BEAU) History of amputation of lesser toe of right foot Family History Father Cancer Congestive heart failure Mother Cancer Social History household members: none Smoking Status: Never smoker Smoking Status: Never smoker alcohol intake frequency: other Substance Use Type: does not use Exam Narrative Exam Narrative: GENERAL: in no distress, not toxic not dyspneic HEAD: Normocephalic. EYES: Pupils equal round No scleral icterus. ENT: Mucous membranes moist. NECK: Trachea midline. CARDIOVASCULAR: Regular rate and rhythm without murmurs RESPIRATORY: Clear to auscultation. Breath sounds equal bilaterally. No wheezes, rales, or rhonchi. GASTROINTESTINAL: Abdomen soft, non-tender EXTREMITIES: No gross deformities. There is a quarter-size diabetic skin wound on the right great toe. There is red streaking dorsal aspect of the foot radiating to the distal half of the right leg. No palpable abscess. Dorsal pedis pulse palpable. Brisk cap refills. Light touch intact to foot and toes. NEURO: AOx4. SKIN: Warm and dry PSYCH: Not anxious, is cooperative Initial Vital Signs Initial Vital Signs: Vital Signs Temperature 102.8 F H 01/16/22 12:14 Pulse Rate 95 H 01/16/22 12:14 Respiratory Rate 20 01/16/22 12:14 Blood Pressure 110/52 L 01/16/22 12:14 Pulse Oximetry 99 01/16/22 12:14 Oxygen Delivery Method 01/16/22 12:14 Oxygen Flow Rate 2 01/16/22 12:14 Course Course Course Narrative: No new issues during course of stay Decision to Admit Date: 01/16/22 Decision to Admit time: 14:05 Orders Ordered: Discontinued Medications Acetaminophen (Acetaminophen 325 Mg Tablet) 975 mg PO NOW ONE Stop: 01/16/22 12:59 Last Admin: 01/16/22 13:03 Dose: 975 mg Documented By: LACEY Acetaminophen (Acetaminophen 325 Mg Tablet) 650 mg PO NOW ONE Stop: 01/16/22 18:05 Last Admin: 01/16/22 18:48 Dose: Not Given Documented By: COREY Acetaminophen (Acetaminophen 325 Mg Tablet) 650 mg PO Q6H PRN PRN Reason: Fever/Mild Pain (1-3) Last Admin: 01/17/22 02:29 Dose: 650 mg Documented By: JORGE LUIS Acetaminophen (Acetaminophen Susp 650 Mg/20.3 Ml Udc) 1,000 mg PO Q4H PRN PRN Reason: Pain Dextrose (Dextrose 50 % In Water 25 Gm/50 Ml Syringe) 25 gm IV PRN PRN PRN Reason: Hypoglycemia Enalapril Maleate (Enalapril 20 Mg Tablet) 20 mg PO DAILY [facility] Last Admin: 01/17/22 12:14 Dose: Not Given Documented By: Admin: 01/16/22 22:00 Dose: Not Given Documented By: OJRGE LUIS Enoxaparin Sodium (Enoxaparin 40 Mg/0.4 Ml Syringe) 40 mg SUBCUT DAILY [facility] Last Admin: 01/17/22 08:42 Dose: 40 mg Documented By: PADMAJA Enoxaparin Sodium (Enoxaparin 40 Mg/0.4 Ml Syringe) 40 mg SUBCUT BID [facility] Furosemide (Furosemide 40 Mg Tablet) 40 mg PO BID [facility] Last Admin: 01/17/22 08:49 Dose: 40 mg Documented By: Admin: 01/16/22 22:01 Dose: 40 mg Documented By: JORGE LUIS Gabapentin (Gabapentin 400 Mg Capsule) 1,200 mg PO TID [facility] Last Admin: 01/17/22 08:42 Dose: 1,200 mg Documented By: Admin: 01/16/22 21:59 Dose: 1,200 mg Documented By: JORGE LUIS Sodium Chloride (Normal Saline 0.9%) 1,000 mls @ 1,000 mls/hr IV BOLUS ONE Stop: 01/16/22 13:18 Last Infusion: 01/16/22 13:10 Dose: 0 mls/hr Documented By: Admin: 01/16/22 12:07 Dose: 1,000 mls/hr Documented By: GARRY Lactated Ringer's (Lactated Ringers) 4,422.54 mls @ 1,474.18 mls/hr 30 ml/kg infuse over 3 hr (4422.54 ml) IV NOW ONE Stop: 01/16/22 16:23 Last Infusion: 01/16/22 17:40 Dose: 0 mls/hr Documented By: Admin: 01/16/22 13:44 Dose: 1,474.18 mls/hr Documented By: COREY Vancomycin HCl/Dextrose (Vancomycin) 2,000 mg in 400 mls @ 200 mls/hr IV NOW ONE Stop: 01/16/22 15:59 Last Infusion: 01/16/22 16:41 Dose: 0 mls/hr Documented By: Admin: 01/16/22 14:20 Dose: 200 mls/hr Documented By: COREY Piperacillin Sod/Tazobactam (Sod 3.375 gm/ Sodium Chloride) 100 mls @ 25 mls/hr IV Q8H [facility] Last Infusion: 01/17/22 01:25 Dose: 0 mls/hr Documented By: JORGE LUIS Admin: 01/16/22 20:12 Dose: 25 mls/hr Documented By: JORGE LUIS Ibuprofen (Ibuprofen 400 Mg Tablet) 800 mg PO NOW ONE Stop: 01/16/22 13:24 Last Admin: 01/16/22 13:45 Dose: 800 mg Documented By: CROEY Insulin Glargine (Insulin Glargine 100 Unit/Ml 3ml Pen) 30 unit SUBCUT BID RIK Last Admin: 01/17/22 08:46 Dose: 30 unit Documented By: PADMAJA Co-signed By: JOIE Admin: 01/16/22 23:30 Dose: 30 unit Documented By: JORGE LUIS Co-signed By: AILEEN Insulin Human Lispro (Insulin Lispro 100 Unit/Ml 3ml Vial) 0 unit SUBCUT ACHS [facility]; Protocol Last Admin: 01/17/22 12:21 Dose: 1 unit Documented By: PADMAJA Co-signed By: JOIE Admin: 01/17/22 08:45 Dose: 1 unit Documented By: PADMAJA Co-signed By: JOIE Admin: 01/16/22 21:57 Dose: Not Given Documented By: JORGE LUIS Lidocaine HCl (Lidocaine 2% (Glydo) 6 Ml Gel) 6 ml TOP NOW ONE Stop: 01/16/22 15:27 Last Admin: 01/16/22 15:29 Dose: 6 ml Documented By: COREY Magnesium Chloride (Magnesium Chloride 64 Mg Tablet) 128 mg PO NOW ONE Stop: 01/17/22 09:30 Last Admin: 01/17/22 10:40 Dose: 128 mg Documented By: PADMAJA Melatonin (Melatonin 3 Mg Tablet) 6 mg PO BEDTIME PRN PRN Reason: Insomnia Oxycodone HCl (Oxycodone Ir 5 Mg Tablet) 10 mg PO Q4HR PRN PRN Reason: Pain, Moderate (4-6) Last Admin: 01/17/22 08:49 Dose: 10 mg Documented By: Admin: 01/16/22 22:24 Dose: 10 mg Documented By: JORGE LUIS Pantoprazole Sodium (Pantoprazole Dr 40 Mg Tablet) 40 mg PO DAILY [facility] Last Admin: 01/17/22 08:49 Dose: 40 mg Documented By: PADMAJA Polyethylene Glycol (Polyethylene Glycol 3350 17 Gm Powd.Pack) 17 gm PO DAILY PRN PRN Reason: Constipation Last Admin: 01/17/22 08:52 Dose: 17 gm Documented By: PADMAJA Polyethylene Glycol (Polyethylene Glycol 3350 17 Gm Powd.Pack) 17 gm PO PRN PRN PRN Reason: Constipation Primidone (Primidone 50 Mg Tablet) 250 mg PO BID [facility] Last Admin: 01/17/22 08:54 Dose: 250 mg Documented By: Admin: 01/16/22 22:01 Dose: 250 mg Documented By: JORGE LUIS Sennosides (Sennosides 8.6 Mg Tablet) 8.6 mg PO BID PRN PRN Reason: Constipation Reevaluation(s) Reevaluation #1: No new issues during course of stay. Reviewed results with patient. Agrees for admit. Time: 17:05 Consultations Consultation #1: Spoke with hospitalist Dr. Zamora, will admit Time: 17:21 Vital Signs Vital signs: Vital Signs - 8 hr 01/16/22 12:14 01/16/22 12:30 01/16/22 12:30 Temperature 102.8 F H 103.2 F H Pulse Rate 95 H 95 H Respiratory Rate 20 21 Blood Pressure 110/52 L 118/54 L Pulse Oximetry 99 100 Oxygen Delivery Method Nasal Cannula Oxygen Flow Rate 2 01/16/22 14:19 01/16/22 13:00 01/16/22 13:00 Temperature 98.9 F Pulse Rate 96 H Respiratory Rate Blood Pressure 120/81 Pulse Oximetry 99 Oxygen Delivery Method Oxygen Flow Rate 01/16/22 13:30 01/16/22 13:30 01/16/22 14:00 Temperature Pulse Rate 97 H 89 Respiratory Rate 23 18 Blood Pressure 134/84 Pulse Oximetry 98 97 Oxygen Delivery Method Oxygen Flow Rate 01/16/22 14:01 01/16/22 14:01 01/16/22 14:30 Temperature 98.9 F Pulse Rate 89 Respiratory Rate 17 Blood Pressure 115/58 L 121/55 L Pulse Oximetry 98 Oxygen Delivery Method Nasal Cannula Oxygen Flow Rate 3 01/16/22 14:30 01/16/22 15:00 01/16/22 15:00 Temperature Pulse Rate 82 80 Respiratory Rate 19 19 Blood Pressure 125/57 L Pulse Oximetry 98 100 Oxygen Delivery Method Oxygen Flow Rate 01/16/22 15:30 01/16/22 15:31 01/16/22 15:31 Temperature Pulse Rate 79 79 Respiratory Rate 22 17 Blood Pressure 117/56 L Pulse Oximetry 98 96 Oxygen Delivery Method Oxygen Flow Rate 01/16/22 16:00 01/16/22 16:01 01/16/22 16:01 Temperature Pulse Rate 75 75 Respiratory Rate 17 18 Blood Pressure 105/53 L Pulse Oximetry 93 93 Oxygen Delivery Method Room Air Oxygen Flow Rate MDM - Fever Differential Diagnosis Differential diagnosis: Likely cellulitis, fever of unknown origin, community acquired pneumonia, viral infection, sepsis and influenza Lab Data Result diagrams: 01/17/22 05:44 01/17/22 05:44 Labs: Lab Results 01/16/22 01/16/22 01/16/22 Range/Units 12:02 12:02 12:02 WBC 8.3 (4.5-11.0) X10^3/uL RBC 3.86 L (4.5-5.9) X10^6/uL Hgb 11.8 L (13.5-17.5) g/dL Hct 34.8 L (41-53) % MCV 90.1 (80-100) fL MCH 30.6 (26-34) PG MCHC 34.0 (30-36) % RDW 13.8 (11.6-14.8) % Plt Count 197 (150-400) X10^3/uL Neut % (Auto) 80.4 H (50-75) % Lymph % (Auto) 11.3 L (25-40) % [place] % (Auto) 6.3 (3-14) % Eos % (Auto) 1.4 L (2-4) % Baso % (Auto) 0.6 (0-2) % Neut # (Auto) 6600 (6865-2854) /uL Lymph # (Auto) 900 L (6886-0230) /uL [place] # (Auto) 500 (0-900) /uL Eos # (Auto) 100 (0-450) /uL Baso # (Auto) 0 (0-100) /uL PT 14.2 H (10.1-12.7) SECONDS INR 1.2 (0.9-1.3) APTT 26 (26-36) SECONDS Sodium (137-145) mmol/L Potassium (3.4-5.1) mmol/L Chloride (98-107) mmol/L Carbon Dioxide (22-32) mmol/L BUN (9-20) mg/dL Creatinine (0.66-1.25) mg/dL Estimated GFR (>60) mL/min BUN/Creatinine Ratio (6-22) Glucose (80-110) mg/dL Hemoglobin A1c (4.0-6.0) % Lactate (0.7-2.1) mmol/L Calcium (8.4-10.2) mg/dL Magnesium (1.6-2.3) mg/dL Total Bilirubin (0.2-1.3) mg/dL AST (17-59) IU/L ALT (<50) IU/L Alkaline Phosphatase (38-126) U/L Total Protein (6.3-8.2) g/dL Albumin (3.5-5.0) g/dL Globulin (1.7-4.1) g/dL Albumin/Globulin Ratio (1.0-2.8) Lipase (23-300) U/L Procalcitonin (<0.5) ng/mL TSH (0.47-4.68) uIU/mL Free T4 (0.78-2.19) ng/dL Urine RBC (0-5/HPF) Urine WBC (0-5/HPF) Ur Squamous Epith Cells (0-5/HPF) Urine Bacteria (None) A. baumannii (PCR) (Not Detect) Chlamy pneumoniae PCR (Not Detect) Adenovirus (PCR) (Not Detect) B. pertussis DNA (PCR) (Not Detecte) B.parapertussis DNA PCR (Not Detecte) Enedina albicans (PCR) (Not Detect) C. glabrata (PCR) (Not Detect) C. krusei (PCR) (Not Detect) C. parapsilosis (PCR) (Not Detect) C. tropicalis (PCR) (Not Detect) Coronavirus OC43 (PCR) (Not Detect) Coronavirus HKU1 (PCR) (Not Detect) Coronavirus 229E (PCR) (Not Detect) SARS-CoV-2 (PCR) Negative (Negative) Coronavirus NL63 (PCR) (Not Detect) Enterobacteriac sp PCR (Not Detect) E. cloacae complex PCR (Not Detect) Enterococcus sp PCR (Not Detect) E. coli (PCR) (Not Detect) H. influenzae (PCR) (Not Detect) Human Metapneumovir PCR (Not Detect) Influenza A (RT-PCR) Flu a negative (NEGATIVE) Influenza Type A (PCR) (Not Detect) Influenza B (RT-PCR) Flu b negative (NEGATIVE) Influenza Type B (PCR) (Not Detect) Klebsiella oxytoca PCR (Not Detect) Klebsiella pneumoniae (Not Detect) List. monocytogenes PCR (Not Detect) M. pneumoniae (PCR) (Not Detect) N. meningitidis (PCR) (Not Detect) Parainfluenza 1 (PCR) (Not Detect) Parainfluenza 2 (PCR) (Not Detect) Parainfluenza 3 (PCR) (Not Detect) Parainfluenza 4 (PCR) (Not Detect) Proteus species (PCR) (Not Detect) RSV (PCR) Negative (Negative) Entero/Rhino (PCR) (Not Detect) Serratia marcescens PCR (Not Detect) Staphylococcus sp PCR (Not Detect) Staph aureus (PCR) (Not Detect) mecA-Methicil Res Gene (Not Detect) Streptococcus sp PCR (Not Detect) Group A Strep (PCR) (Not Detect) Strep agalactiae (PCR) (Not Detect) Strep pneumoniae (PCR) (Not Detect) P. aeruginosa (PCR) (Not Detect) Rodney/B-Vanco Res Genes KPC-Carbap Res Gene PCR 01/16/22 01/16/22 01/16/22 Range/Units 12:02 12:02 12:02 WBC (4.5-11.0) X10^3/uL RBC (4.5-5.9) X10^6/uL Hgb (13.5-17.5) g/dL Hct (41-53) % MCV (80-100) fL MCH (26-34) PG MCHC (30-36) % RDW (11.6-14.8) % Plt Count (150-400) X10^3/uL Neut % (Auto) (50-75) % Lymph % (Auto) (25-40) % [place] % (Auto) (3-14) % Eos % (Auto) (2-4) % Baso % (Auto) (0-2) % Neut # (Auto) (0282-4043) /uL Lymph # (Auto) (3844-3849) /uL [place] # (Auto) (0-900) /uL Eos # (Auto) (0-450) /uL Baso # (Auto) (0-100) /uL PT (10.1-12.7) SECONDS INR (0.9-1.3) APTT (26-36) SECONDS Sodium 140 (137-145) mmol/L Potassium 4.0 (3.4-5.1) mmol/L Chloride 97 L (98-107) mmol/L Carbon Dioxide 36 H (22-32) mmol/L BUN 16 (9-20) mg/dL Creatinine 0.96 (0.66-1.25) mg/dL Estimated GFR > 60 (>60) mL/min BUN/Creatinine Ratio 16.7 (6-22) Glucose 140 H (80-110) mg/dL Hemoglobin A1c 6.8 H (4.0-6.0) % Lactate 1.7 (0.7-2.1) mmol/L Calcium 9.4 (8.4-10.2) mg/dL Magnesium (1.6-2.3) mg/dL Total Bilirubin 0.5 (0.2-1.3) mg/dL AST 90 H (17-59) IU/L ALT 33 (<50) IU/L Alkaline Phosphatase 97 (38-126) U/L Total Protein 8.0 (6.3-8.2) g/dL Albumin 4.2 (3.5-5.0) g/dL Globulin 3.8 (1.7-4.1) g/dL Albumin/Globulin Ratio 1.1 (1.0-2.8) Lipase 31 (23-300) U/L Procalcitonin 0.18 (<0.5) ng/mL TSH (0.47-4.68) uIU/mL Free T4 (0.78-2.19) ng/dL Urine RBC (0-5/HPF) Urine WBC (0-5/HPF) Ur Squamous Epith Cells (0-5/HPF) Urine Bacteria (None) A. baumannii (PCR) (Not Detect) Chlamy pneumoniae PCR (Not Detect) Adenovirus (PCR) (Not Detect) B. pertussis DNA (PCR) (Not Detecte) B.parapertussis DNA PCR (Not Detecte) Enedina albicans (PCR) (Not Detect) C. glabrata (PCR) (Not Detect) C. krusei (PCR) (Not Detect) C. parapsilosis (PCR) (Not Detect) C. tropicalis (PCR) (Not Detect) Coronavirus OC43 (PCR) (Not Detect) Coronavirus HKU1 (PCR) (Not Detect) Coronavirus 229E (PCR) (Not Detect) SARS-CoV-2 (PCR) (Negative) Coronavirus NL63 (PCR) (Not Detect) Enterobacteriac sp PCR (Not Detect) E. cloacae complex PCR (Not Detect) Enterococcus sp PCR (Not Detect) E. coli (PCR) (Not Detect) H. influenzae (PCR) (Not Detect) Human Metapneumovir PCR (Not Detect) Influenza A (RT-PCR) (NEGATIVE) Influenza Type A (PCR) (Not Detect) Influenza B (RT-PCR) (NEGATIVE) Influenza Type B (PCR) (Not Detect) Klebsiella oxytoca PCR (Not Detect) Klebsiella pneumoniae (Not Detect) List. monocytogenes PCR (Not Detect) M. pneumoniae (PCR) (Not Detect) N. meningitidis (PCR) (Not Detect) Parainfluenza 1 (PCR) (Not Detect) Parainfluenza 2 (PCR) (Not Detect) Parainfluenza 3 (PCR) (Not Detect) Parainfluenza 4 (PCR) (Not Detect) Proteus species (PCR) (Not Detect) RSV (PCR) (Negative) Entero/Rhino (PCR) (Not Detect) Serratia marcescens PCR (Not Detect) Staphylococcus sp PCR (Not Detect) Staph aureus (PCR) (Not Detect) mecA-Methicil Res Gene (Not Detect) Streptococcus sp PCR (Not Detect) Group A Strep (PCR) (Not Detect) Strep agalactiae (PCR) (Not Detect) Strep pneumoniae (PCR) (Not Detect) P. aeruginosa (PCR) (Not Detect) Rodney/B-Vanco Res Genes KPC-Carbap Res Gene PCR 01/16/22 01/16/22 01/16/22 Range/Units 12:02 12:02 12:02 WBC (4.5-11.0) X10^3/uL RBC (4.5-5.9) X10^6/uL Hgb (13.5-17.5) g/dL Hct (41-53) % MCV (80-100) fL MCH (26-34) PG MCHC (30-36) % RDW (11.6-14.8) % Plt Count (150-400) X10^3/uL Neut % (Auto) (50-75) % Lymph % (Auto) (25-40) % [place] % (Auto) (3-14) % Eos % (Auto) (2-4) % Baso % (Auto) (0-2) % Neut # (Auto) (1375-2076) /uL Lymph # (Auto) (8021-1224) /uL [place] # (Auto) (0-900) /uL Eos # (Auto) (0-450) /uL Baso # (Auto) (0-100) /uL PT (10.1-12.7) SECONDS INR (0.9-1.3) APTT (26-36) SECONDS Sodium (137-145) mmol/L Potassium (3.4-5.1) mmol/L Chloride (98-107) mmol/L Carbon Dioxide (22-32) mmol/L BUN (9-20) mg/dL Creatinine (0.66-1.25) mg/dL Estimated GFR (>60) mL/min BUN/Creatinine Ratio (6-22) Glucose (80-110) mg/dL Hemoglobin A1c (4.0-6.0) % Lactate (0.7-2.1) mmol/L Calcium (8.4-10.2) mg/dL Magnesium 1.6 (1.6-2.3) mg/dL Total Bilirubin (0.2-1.3) mg/dL AST (17-59) IU/L ALT (<50) IU/L Alkaline Phosphatase (38-126) U/L Total Protein (6.3-8.2) g/dL Albumin (3.5-5.0) g/dL Globulin (1.7-4.1) g/dL Albumin/Globulin Ratio (1.0-2.8) Lipase (23-300) U/L Procalcitonin (<0.5) ng/mL TSH 0.35 L (0.47-4.68) uIU/mL Free T4 0.79 (0.78-2.19) ng/dL Urine RBC (0-5/HPF) Urine WBC (0-5/HPF) Ur Squamous Epith Cells (0-5/HPF) Urine Bacteria (None) A. baumannii (PCR) Not detected (Not Detect) Chlamy pneumoniae PCR (Not Detect) Adenovirus (PCR) (Not Detect) B. pertussis DNA (PCR) (Not Detecte) B.parapertussis DNA PCR (Not Detecte) Enedina albicans (PCR) Not detected (Not Detect) C. glabrata (PCR) Not detected (Not Detect) C. krusei (PCR) Not detected (Not Detect) C. parapsilosis (PCR) Not detected (Not Detect) C. tropicalis (PCR) Not detected (Not Detect) Coronavirus OC43 (PCR) (Not Detect) Coronavirus HKU1 (PCR) (Not Detect) Coronavirus 229E (PCR) (Not Detect) SARS-CoV-2 (PCR) (Negative) Coronavirus NL63 (PCR) (Not Detect) Enterobacteriac sp PCR Not detected (Not Detect) E. cloacae complex PCR Not detected (Not Detect) Enterococcus sp PCR Not detected (Not Detect) E. coli (PCR) Not detected (Not Detect) H. influenzae (PCR) Not detected (Not Detect) Human Metapneumovir PCR (Not Detect) Influenza A (RT-PCR) (NEGATIVE) Influenza Type A (PCR) (Not Detect) Influenza B (RT-PCR) (NEGATIVE) Influenza Type B (PCR) (Not Detect) Klebsiella oxytoca PCR Not detected (Not Detect) Klebsiella pneumoniae Not detected (Not Detect) List. monocytogenes PCR Not detected (Not Detect) M. pneumoniae (PCR) (Not Detect) N. meningitidis (PCR) Not detected (Not Detect) Parainfluenza 1 (PCR) (Not Detect) Parainfluenza 2 (PCR) (Not Detect) Parainfluenza 3 (PCR) (Not Detect) Parainfluenza 4 (PCR) (Not Detect) Proteus species (PCR) Not detected (Not Detect) RSV (PCR) (Negative) Entero/Rhino (PCR) (Not Detect) Serratia marcescens PCR Not detected (Not Detect) Staphylococcus sp PCR Detected H (Not Detect) Staph aureus (PCR) Not detected (Not Detect) mecA-Methicil Res Gene Not detected (Not Detect) Streptococcus sp PCR Not detected (Not Detect) Group A Strep (PCR) Not detected (Not Detect) Strep agalactiae (PCR) Not detected (Not Detect) Strep pneumoniae (PCR) Not detected (Not Detect) P. aeruginosa (PCR) Not detected (Not Detect) Rodney/B-Vanco Res Genes Not Reportable KPC-Carbap Res Gene PCR Not Reportable 01/16/22 01/16/22 Range/Units 14:13 15:40 WBC (4.5-11.0) X10^3/uL RBC (4.5-5.9) X10^6/uL Hgb (13.5-17.5) g/dL Hct (41-53) % MCV (80-100) fL MCH (26-34) PG MCHC (30-36) % RDW (11.6-14.8) % Plt Count (150-400) X10^3/uL Neut % (Auto) (50-75) % Lymph % (Auto) (25-40) % [place] % (Auto) (3-14) % Eos % (Auto) (2-4) % Baso % (Auto) (0-2) % Neut # (Auto) (1352-5905) /uL Lymph # (Auto) (7151-8269) /uL [place] # (Auto) (0-900) /uL Eos # (Auto) (0-450) /uL Baso # (Auto) (0-100) /uL PT (10.1-12.7) SECONDS INR (0.9-1.3) APTT (26-36) SECONDS Sodium (137-145) mmol/L Potassium (3.4-5.1) mmol/L Chloride (98-107) mmol/L Carbon Dioxide (22-32) mmol/L BUN (9-20) mg/dL Creatinine (0.66-1.25) mg/dL Estimated GFR (>60) mL/min BUN/Creatinine Ratio (6-22) Glucose (80-110) mg/dL Hemoglobin A1c (4.0-6.0) % Lactate (0.7-2.1) mmol/L Calcium (8.4-10.2) mg/dL Magnesium (1.6-2.3) mg/dL Total Bilirubin (0.2-1.3) mg/dL AST (17-59) IU/L ALT (<50) IU/L Alkaline Phosphatase (38-126) U/L Total Protein (6.3-8.2) g/dL Albumin (3.5-5.0) g/dL Globulin (1.7-4.1) g/dL Albumin/Globulin Ratio (1.0-2.8) Lipase (23-300) U/L Procalcitonin (<0.5) ng/mL TSH (0.47-4.68) uIU/mL Free T4 (0.78-2.19) ng/dL Urine RBC None seen (0-5/HPF) Urine WBC 10-30/hpf H (0-5/HPF) Ur Squamous Epith Cells 0-1 /hpf (0-5/HPF) Urine Bacteria Few (2-10) H (None) A. baumannii (PCR) (Not Detect) Chlamy pneumoniae PCR Not detected (Not Detect) Adenovirus (PCR) Not detected (Not Detect) B. pertussis DNA (PCR) Not detected (Not Detecte) B.parapertussis DNA PCR Not detected (Not Detecte) Enedina albicans (PCR) (Not Detect) C. glabrata (PCR) (Not Detect) C. krusei (PCR) (Not Detect) C. parapsilosis (PCR) (Not Detect) C. tropicalis (PCR) (Not Detect) Coronavirus OC43 (PCR) Not detected (Not Detect) Coronavirus HKU1 (PCR) Not detected (Not Detect) Coronavirus 229E (PCR) Not detected (Not Detect) SARS-CoV-2 (PCR) Not detected (Negative) Coronavirus NL63 (PCR) Not detected (Not Detect) Enterobacteriac sp PCR (Not Detect) E. cloacae complex PCR (Not Detect) Enterococcus sp PCR (Not Detect) E. coli (PCR) (Not Detect) H. influenzae (PCR) (Not Detect) Human Metapneumovir PCR Not detected (Not Detect) Influenza A (RT-PCR) (NEGATIVE) Influenza Type A (PCR) Not detected (Not Detect) Influenza B (RT-PCR) (NEGATIVE) Influenza Type B (PCR) Not detected (Not Detect) Klebsiella oxytoca PCR (Not Detect) Klebsiella pneumoniae (Not Detect) List. monocytogenes PCR (Not Detect) M. pneumoniae (PCR) Not detected (Not Detect) N. meningitidis (PCR) (Not Detect) Parainfluenza 1 (PCR) Not detected (Not Detect) Parainfluenza 2 (PCR) Not detected (Not Detect) Parainfluenza 3 (PCR) Not detected (Not Detect) Parainfluenza 4 (PCR) Not detected (Not Detect) Proteus species (PCR) (Not Detect) RSV (PCR) Not detected (Negative) Entero/Rhino (PCR) Not detected (Not Detect) Serratia marcescens PCR (Not Detect) Staphylococcus sp PCR (Not Detect) Staph aureus (PCR) (Not Detect) mecA-Methicil Res Gene (Not Detect) Streptococcus sp PCR (Not Detect) Group A Strep (PCR) (Not Detect) Strep agalactiae (PCR) (Not Detect) Strep pneumoniae (PCR) (Not Detect) P. aeruginosa (PCR) (Not Detect) Rodney/B-Vanco Res Genes KPC-Carbap Res Gene PCR Urine Dip Bedside Urine Glucose Negative Bedside Urine Bilirubin - Negative Bedside Urine Ketone - Negative Urine Specific Kelley 1.010 Bedside Urine Occult Blood - Negative Bedside Urine pH 6.0 Bedside Urine Protein - Negative Bedside Urine Urobilinogen - Negative Bedside Urine Nitrite - Negative Bedside Urine Leukocytes +/- 15 Esterase Imaging Data Chest x-ray: Radiologist's Impression: [address] [address] XRay Report Signed Patient: Josue Mesa MR#: [id number] : 1955 Acct:[id number] Age/Sex: 66 / M Date of Service: 01/16/22 Loc: ED Accession Number: [id number] ?? Procedure: XR chest 1V Ordering Provider: Stephen Bradford MD PROCEDURE:? XR CHEST 1V ? INDICATIONS:? suspected sepsis ? TECHNIQUE:? One view of the chest was acquired.? ? COMPARISON:? [facility], , XR CHEST 1V, 01/27/2021, 17:07. ? FINDINGS:? This evaluation is limited, secondary to the patient's inability to fully cooperate with the examination.? ? Surgical changes and devices:? None.? ? Lungs and pleura:? On this supine examination, no large pneumothorax or large pleural effusions are seen. No focal areas of lung consolidation are seen. Low lung volumes are noted. This causes a crowded appearance to the lung markings and limits evaluation.? ? Mediastinum:? Mediastinal contours appear normal.? Heart size is normal.? ? Bones and chest wall:? No suspicious bony lesions.? Age-appropriate bony degenerative changes are seen.? ? Overlying soft tissues appear unremarkable.? IMPRESSION:? Limited portable chest study, without a kieran, acute abnormality seen. ? If clinically appropriate, a short-term followup chest series (with PA and lateral views) performed in deep inspiration versus a chest CT would be suggested for further evaluation.? Dictated by: Tyrone Vila M.D. on 01/16/2022 at 11:59 ? ? Approved by: Tyrone Vila M.D. on 01/16/2022 at 12:00 ? Extremity x-ray #1: Radiologist's Impression: [address] [address] XRay Report Signed Patient: Josue Mesa MR#: [id number] : 1955 Acct:[id number] Age/Sex: 66 / M Date of Service: 01/16/22 Loc: ED Accession Number: [id number] ?? Procedure: XR foot RT min 3V Ordering Provider: Stephen Bradford MD PROCEDURE:? XR FOOT RT MIN 3V ? INDICATIONS:? Pain/swelling ? TECHNIQUE:? 3 views of the foot were acquired.? ? COMPARISON:? [facility], CR, XR CHEST 1V, 01/16/2022, 12:35.? [facility], CR, XR FOOT RT MIN 3V, 09/19/2017, 12:51. ? FINDINGS:? ? Bones:? Chronic, remodeling fractures can be seen of the proximal base of the proximal phalanx of the great toe. ? Prior radiation changes seen, with removal of the 2nd toe.? Toe alignment abnormalities are seen. ? No frankly suspicious lytic or blastic lesions are seen.? Generalized degenerative changes are seen, without acute fracture.? Moderate hallux valgus deformity ? Soft tissues:? Distal soft tissue swelling is seen. ? ? IMPRESSION:? No acute fracture can be seen. ? No focal bony abnormality is seen.? ? Distal soft tissue swelling is seen.? ? If there is strong suspicion for developing osteomyelitis, please consider a dedicated MRI without and with contrast for further evaluation (assuming that there is no contraindication to MRI). ? Prior 2nd toe fracture. ? Remote fracture of the proximal aspect of the proximal phalanx of the great toe.? ? Moderate hallux valgus deformity. ? ? Dictated by: Tyrone Vila M.D. on 01/16/2022 at 15:31 ? ? Approved by: Tyrone Vila M.D. on 01/16/2022 at 15:33 ? ECG Data Interpretation: Sinus rhythm rate [address] elevation or depression MDM Narrative Medical decision making narrative: Appropriate for admission for possible sepsis. Will need antibiotics for cellulitis likely sources the right foot. Patient agrees with treatment plan. Discharge Plan Departure Patient Disposition: Admitted as Observation Clinical Impression: Cellulitis of right leg Admit Date/Time: 01/16/22 17:41 Admit Provider: Dexter Zamora
[2022-01-16] MEDS: VANCOMYCIN 2,000 MG/400 ML PIGGYBACK 200 MG IV (14:20)
--- NOTE | 2022-01-16 14:57 | PC.NURSE ---
Pt altered from his baseline on arrival per EMS. AOx2 unable to state the year. febrile 102.8. SOB. Arrived on 4L and weaned to 2L and 99%. IV placed labs drawn BC x 1, swabbed for resp panel and fluids infusing per sepsis protocol.
--- NOTE | 2022-01-16 15:17 | PM.CN ---
History of Present Illness Consult details Date Patient Seen: 01/16/22 Time Patient Seen: 15:17 Chief complaint: AMS, Rt foot infection, GLF today Reason for consult: Right foot wound Requesting provider: Stephen Bradford Narrative: 66-year-old diabetic male with a history of a chronic sub 1st MTP right callus and ulcer presents with altered mental status concern for infection, sepsis. Reportedly febrile on presentation. Lives at a care center. As an outpatient has seen medical laboratory technologist Dr. Solitario at [facility] last seen in November 2021 at which point he was noted to have of right 1st metatarsal head diabetic ulcer with fat layer exposed. Recurrent wound sub 1st metatarsal head was prescribed orthotic modifications and had a debridement of the hyperkeratosis. Meds Home Medications and Allergies Home Medications Medication Instructions Recorded Confirmed Type gabapentin 800 mg tablet 1,200 mg PO TID ##0 10/07/12 09/10/19 History furosemide 80 mg tablet 80 mg PO TID ##0 10/15/15 09/10/19 History difluprednate 0.05 % eye drops 1 drp EYE-LEFT DAILY ##0 03/06/16 09/10/19 History (Durezol) enalapril maleate 20 mg tablet 20 mg PO Q DAY ##0 03/06/16 09/10/19 History insulin glargine 100 unit/mL (3 50 unit (0.5 mL) SQ BID ##30 03/09/16 09/10/19 Rx mL) subcutaneous pen (Lantus Solostar U-100 Insulin) acetaminophen 500 mg tablet 1,000 mg PO Q4H PRN Pain ##0 02/27/17 09/10/19 History (Tylenol Extra Strength) bisacodyl 5 mg tablet 10 mg PO DAILY 02/07/18 09/10/19 History insulin aspar prt-insulin aspart 25 unit SUBCUT TID 02/07/18 09/10/19 History 100 unit/mL (70-30) subcutaneous soln (Novolog Mix 70-30 U-100 Insuln) ondansetron 4 mg disintegrating 1 - 2 tab PO Q6H PRN Nausea 02/07/18 09/10/19 History tablet oxycodone 10 mg tablet 10 mg PO Q4H PRN Pain 12/19/18 07/21/20 History pantoprazole 40 mg granules 40 mg PO DAILY 02/07/18 09/10/19 History delayed-release for susp in packet polyethylene glycol 3350 17 17 g PO DAILY 02/07/18 09/10/19 History gram/dose oral powder primidone 50 mg tablet 150 tab PO BID 02/07/18 09/10/19 History difluprednate 0.05 % eye drops 1 drp EYE-RIGHT BID 11/02/18 09/10/19 History (Durezol) fluticasone propionate 50 2 spray intranasal DAILY 11/02/18 09/10/19 History mcg/actuation nasal spray,suspension (24 Hour Allergy Relief) multivitamin 1 cap PO DAILY 11/02/18 09/10/19 History tamsulosin 0.4 mg capsule 0.4 mg PO BID 11/02/18 09/10/19 History vitamin B complex 1 cap PO DAILY 11/02/18 09/10/19 History Allergies Allergy/AdvReac Type Severity Reaction Status Date / Time amoxicillin [From AUGMENTIN] AdvReac Unknown UPSET Verified 06/28/21 12:20 STOMACH clavulanic acid AdvReac Unknown UPSET Verified 06/28/21 12:20 [From AUGMENTIN] STOMACH Review of Systems Review of Systems Narrative: Fever altered mental status ROS: Yes unobtainable due to mental status Exam Vital Signs (past 8 hours): - 01/16/22 12:14 01/16/22 12:30 01/16/22 12:30 Temperature 102.8 F H 103.2 F H Pulse Rate 95 H 95 H Respiratory Rate 20 21 Blood Pressure 110/52 L 118/54 L Pulse Oximetry 99 100 Oxygen Delivery Method Nasal Cannula Oxygen Flow Rate 2 01/16/22 14:19 01/16/22 13:00 01/16/22 13:00 Temperature 98.9 F Pulse Rate 96 H Respiratory Rate Blood Pressure 120/81 Pulse Oximetry 99 Oxygen Delivery Method Oxygen Flow Rate 01/16/22 13:30 01/16/22 13:30 01/16/22 14:00 Temperature Pulse Rate 97 H 89 Respiratory Rate 23 18 Blood Pressure 134/84 Pulse Oximetry 98 97 Oxygen Delivery Method Oxygen Flow Rate 01/16/22 14:01 01/16/22 14:01 Temperature 98.9 F Pulse Rate 89 Respiratory Rate 17 Blood Pressure 115/58 L Pulse Oximetry 98 Oxygen Delivery Method Nasal Cannula Oxygen Flow Rate 3 Oxygen Delivery Method Nasal Cannula Oxygen Flow Rate 3 Narrative Exam Narrative: Seen in the stretcher in the ER. Lying in bed. Minimal answers to questions. Heart rate is borderline tachycardic. Ninety-five. Per report febrile at 102 Nasal cannula oxygen Right lower extremity is evaluated. No obvious cellulitis. There is a chronic appearing ulcer at the right 1st MTP head with periosteal callus. Small amount of old blood on a piece of gauze no purulence. No erythema. No swelling. Palpable dorsalis pedis pulse. Calf is soft. No evidence of ascending cellulitis and no gas. No crepitus no fluctuance or obvious abscess. Chronic appearing diabetic ulcer Objective Labs Result Diagrams: 01/16/22 12:02 01/16/22 12:02 Labs: Laboratory Results - last 24 hr 01/16/22 01/16/22 01/16/22 12:02 12:02 12:02 WBC 8.3 RBC 3.86 L Hgb 11.8 L Hct 34.8 L MCV 90.1 MCH 30.6 MCHC 34.0 RDW 13.8 Plt Count 197 Neut % (Auto) 80.4 H Lymph % (Auto) 11.3 L [place] % (Auto) 6.3 Eos % (Auto) 1.4 L Baso % (Auto) 0.6 Neut # (Auto) 6600 Lymph # (Auto) 900 L [place] # (Auto) 500 Eos # (Auto) 100 Baso # (Auto) 0 PT 14.2 H INR 1.2 APTT 26 Sodium Potassium Chloride Carbon Dioxide BUN Creatinine Estimated GFR BUN/Creatinine Ratio Glucose Lactate Calcium Total Bilirubin AST ALT Alkaline Phosphatase Total Protein Albumin Globulin Albumin/Globulin Ratio Lipase Procalcitonin SARS-CoV-2 (PCR) Negative Influenza A (RT-PCR) Flu a negative Influenza B (RT-PCR) Flu b negative RSV (PCR) Negative 01/16/22 01/16/22 12:02 12:02 WBC RBC Hgb Hct MCV MCH MCHC RDW Plt Count Neut % (Auto) Lymph % (Auto) [place] % (Auto) Eos % (Auto) Baso % (Auto) Neut # (Auto) Lymph # (Auto) [place] # (Auto) Eos # (Auto) Baso # (Auto) PT INR APTT Sodium 140 Potassium 4.0 Chloride 97 L Carbon Dioxide 36 H BUN 16 Creatinine 0.96 Estimated GFR > 60 BUN/Creatinine Ratio 16.7 Glucose 140 H Lactate 1.7 Calcium 9.4 Total Bilirubin 0.5 AST 90 H ALT 33 Alkaline Phosphatase 97 Total Protein 8.0 Albumin 4.2 Globulin 3.8 Albumin/Globulin Ratio 1.1 Lipase 31 Procalcitonin 0.18 SARS-CoV-2 (PCR) Influenza A (RT-PCR) Influenza B (RT-PCR) RSV (PCR) [facility] Medical History (Updated 01/16/22 @ 15:22 by Ina Rhoades MD) Cellulitis (02/27/17) Chronic ulcer of right foot limited to breakdown of skin Closed non-physeal fracture of proximal phalanx of great toe with malunion Depression Diabetes Essential tremor Hypertension Insulin dependent diabetes mellitus Morbid obesity MRSA (methicillin resistant Staphylococcus aureus) (02/27/17) Peripheral autonomic neuropathy Peripheral vascular disease Polypharmacy Sepsis (02/27/17) Sleep apnea Thrombocytopenia Toe amputation status Visit for wound care Social History household members: caregiver Tobacco & Substance Use Smoking Status: Never smoker Assessment & Plan Assessment and plan (1) Diabetic foot ulcer associated with diabetes mellitus due to underlying condition: Status: Acute Plan Chronic appearing right 1st metatarsal head diabetic ulcer. No obvious osteomyelitis or ascending infection. No obvious abscess. No current indication for surgery. Discussed, I do not think that the foot wound is what is causing his acute presentation. Does not appear to be a sufficient source for his systemic symptoms. Recommend further workup with medicine or ER regarding this. I do not recommend any surgery for the foot at this time. Recommend follow-up with patient's outpatient medical laboratory technologist for continuing off loading measures and chronic wound care for the diabetic neuropathic ulceration. If patient does not improve and no other source found were negative blood cultures could pursue MRI of the right foot with and without contrast but again unlikely given appearance of foot that any acute surgical indication. I would recommend follow-up with outpatient medical laboratory technologist Dr. Solitario and or wound care for ongoing diabetic ulceration care and primary care follow-up for tight glycemic control Time Spent With Patient Time with patient: less than 30 minutes Critical Care time: I spent a total of [] minutes of critical care time on this patient's care today; this time is exclusive of procedural time.
--- NOTE | 2022-01-16 15:19 | DI.RAD.S_ITS ---
PROCEDURE: XR FOOT RT MIN 3V INDICATIONS: Pain/swelling TECHNIQUE: 3 views of the foot were acquired. COMPARISON: [facility], CR, XR CHEST 1V, 01/16/2022, 12:35. [facility], CR, XR FOOT RT MIN 3V, 09/19/2017, 12:51. FINDINGS: Bones: Chronic, remodeling fractures can be seen of the proximal base of the proximal phalanx of the great toe. Prior radiation changes seen, with removal of the 2nd toe. Toe alignment abnormalities are seen. No frankly suspicious lytic or blastic lesions are seen. Generalized degenerative changes are seen, without acute fracture. Moderate hallux valgus deformity Soft tissues: Distal soft tissue swelling is seen. IMPRESSION: No acute fracture can be seen. No focal bony abnormality is seen. Distal soft tissue swelling is seen. If there is strong suspicion for developing osteomyelitis, please consider a dedicated MRI without and with contrast for further evaluation (assuming that there is no contraindication to MRI). Prior 2nd toe fracture. Remote fracture of the proximal aspect of the proximal phalanx of the great toe. Moderate hallux valgus deformity. Dictated by: Tyrone Vila M.D. on 01/16/2022 at 15:31 Approved by: Tyrone Vila M.D. on 01/16/2022 at 15:33
[2022-01-16 15:24] LABS: Adenovirus Not Detected (Not Detect); B. parapertussis Not Detected (Not Detecte); Bordetella pertussis Not Detected (Not Detecte); Chlamydophila pneumoniae Not Detected (Not Detect); Coronavirus 229E Not Detected (Not Detect); Coronavirus HKU1 Not Detected (Not Detect); Coronavirus NL 63 Not Detected (Not Detect); Coronavirus OC43 Not Detected (Not Detect); Human Metapneumovirus Not Detected (Not Detect); Human Rhinovirus/Enterovirus Not Detected (Not Detect); Influenza A Not Detected (Not Detect); Influenza B Not Detected (Not Detect); Mycoplasma pneumoniae Not Detected (Not Detect); Parainfluenza Virus 1 Not Detected (Not Detect); Parainfluenza Virus 2 Not Detected (Not Detect); Parainfluenza Virus 3 Not Detected (Not Detect); Parainfluenza Virus 4 Not Detected (Not Detect); Respiratory Syncytial Virus Not Detected (Not Detect); SARS- CoV-2 Not Detected (Not Detecte)
[2022-01-16] MEDS: LIDOCAINE 2% (GLYDO) 6 ML GEL TOP (15:29)
[2022-01-16 16:12] LABS: RBC Urine None Seen (0-5/HPF); Squamous Epithelial Cell Urine 0-1 /HPF (0-5/HPF); WBC Urine 10-30/HPF (0-5/HPF)
[2022-01-16 16:13] LABS: Bacteria Urine Few (2-10)
--- NOTE | 2022-01-16 18:04 | PC.NURSE ---
Pt reporting bad headache. Provider aware. New verbal order for 975 PO tylenol.
[2022-01-16 18:44] LABS: Hemoglobin A1C% w Est Avg Glu 6.8 % (4.0-6.0); Magnesium 1.6 mg/dL (1.6-2.3)
[2022-01-16 19:16] LABS: TSH w/ Reflex to FT4 0.35 uIU/mL (0.47-4.68)
--- NOTE | 2022-01-16 19:30 | PC.NURSE ---
Pt arrived from ED at 1835, A&Ox4, no c/o pain, VSS on 1L NC. No c/o SOB, chest pain, but pt does have chronic numbness to L hand. Oriented to room and call light.
[2022-01-16 19:47] LABS: Free T4, Direct Thyroxine 0.79 ng/dL (0.78-2.19)
--- NOTE | 2022-01-16 19:49 | PM.HP.1 ---
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 ED noted red streaking to the anterior right leg, fever of 103. Patient reported that while up using his walker to go the bathroom, felt weak, tried to lay down on the bed based slid off of it.? Denies any injury or hitting his head.? Patient presented to ED awake alert oriented x4.? Was given sepsis fluid bolus, Tylenol & ibuprofen, langford placement, and Patient was in no distress, denied urinary, cough, cold, congestion, vomiting diarrhea, abdominal pain, chest pain or headache. As an outpatient has seen operations program manager Dr. [facility] at [facility] last seen in November 2021 at which point he was noted to have of right 1st metatarsal head diabetic ulcer with fat layer exposed.? Recurrent wound sub 1st metatarsal head was prescribed orthotic modifications and had a debridement of the hyperkeratosis. Review chart notes going back as far as 2015 it should be noted that patient has a longstanding history since 2016 of morbid obesity, sedentary lifestyle, chronic weakness, frequent fevers, uncontrolled diabetes with foot ulcers, and inability to care for himself, going into assisted living in 2018. Upon admit to the floor patient is stable, patient appears slightly lethargic, flat affect, speech is quite slow-unsure if this is the patient's baseline. Patient denies chest pain, SOB, headache, cough, nasal congestion, fever, body aches, chills, abdominal pain, nausea, vomiting, diarrhea, urinary symptoms frequency urgency dysuria, hematuria, hematemesis, melena, recent illness injury or trauma that otherwise stated above. Fever has resolved, vital signs are stable temp 97.7?, BP 120/44, HR 68, R 17, O2 saturation 98% on room air, no no distress. H&H stable 11.8/34.8, bicarb 36, glucose 140, A1c 6.8, lactate, lipase, procalcitonin, and respiratory panel are all unremarkable. Urinalysis had WBCs and bacteria. Urine, blood, wound and gram stain cultures pending. Right foot x-ray demonstrated no fracture, distal soft tissue swelling. Chest x-ray limited no acute cardiopulmonary processes noted. Dr. Martinez orthopedics consult examination and reviewed imaging in the ED, and did not fill the patient's presentation of weakness and temperature were related to diabetic foot ulcer. Patient admitted for observation fever unknown etiology. Patient History Medical History (Updated 01/16/22 @ 21:05 by CARLOS A Franklin-BEAU) Cellulitis (02/27/17) Chronic ulcer of right foot limited to breakdown of skin Closed non-physeal fracture of proximal phalanx of great toe with malunion Depression Diabetes Essential tremor History of non-ST elevation myocardial infarction (NSTEMI) Hypertension Insulin dependent diabetes mellitus Morbid obesity MRSA (methicillin resistant Staphylococcus aureus) (02/27/17) AGATHA treated with BiPAP Peripheral autonomic neuropathy Peripheral vascular disease Polypharmacy Sedentary lifestyle Sepsis (02/27/17) Severe muscle deconditioning Sleep apnea Thrombocytopenia Toe amputation status Visit for wound care Surgical History (Updated 01/16/22 @ 21:04 by WILDER Franklin) History of amputation of lesser toe of right foot Family & Social History Family History Father Cancer Congestive heart failure Mother Cancer Social History: household members patient lives at [facility] since 2018 Safety & Behavioral: Feels Safe in Current Yes Environment Been Physically Hurt or No Threatened By a Person Tobacco & Substance use: Smoking Status Never smoker alcohol intake frequency other Substance Use Type does not use Meds Home Medications and Allergies Home Medications Medication Instructions Recorded Confirmed Type gabapentin 800 mg tablet 1,200 mg PO TID ##0 10/07/12 01/16/22 History furosemide 80 mg tablet 40 mg PO BID ##0 10/15/15 01/16/22 History enalapril maleate 20 mg tablet 20 mg PO Q DAY ##0 03/06/16 01/16/22 History acetaminophen 500 mg tablet 1,000 mg PO Q4H PRN Pain ##0 02/27/17 01/16/22 History (Tylenol Extra Strength) bisacodyl 5 mg tablet 10 mg PO PRN PRN Constipation 02/07/18 01/16/22 History oxycodone 10 mg tablet 10 mg PO Q4H PRN Pain 02/07/18 01/16/22 History polyethylene glycol 3350 17 17 g PO PRN PRN Constipation 02/07/18 01/16/22 History gram/dose oral powder primidone 50 mg tablet 250 tab PO BID 02/07/18 01/16/22 History fluticasone propionate 50 2 spray intranasal DAILY 11/02/18 01/16/22 History mcg/actuation nasal spray,suspension (24 Hour Allergy Relief) multivitamin 1 cap PO DAILY 11/02/18 01/16/22 History vitamin B complex 1 cap PO DAILY 11/02/18 01/16/22 History insulin glargine 100 unit/mL (3 See Rx Instructions .Route .COMPLEX 01/16/22 01/16/22 History mL) subcutaneous pen (Lantus Solostar U-100 Insulin) pantoprazole 40 mg tablet,delayed 40 mg PO DAILY 01/16/22 01/16/22 History release Allergies Allergy/AdvReac Type Severity Reaction Status Date / Time amoxicillin [From AUGMENTIN] AdvReac Unknown UPSET Verified 06/28/21 12:20 STOMACH clavulanic acid AdvReac Unknown UPSET Verified 06/28/21 12:20 [From AUGMENTIN] STOMACH Review of Systems Review of Systems Narrative: All 12 point systems reviewed with the patient and are negative except otherwise documented. Exam Vital Signs (past 8 hours): - 01/16/22 12:14 01/16/22 12:30 01/16/22 12:30 Temperature 102.8 F H 103.2 F H Pulse Rate 95 H 95 H Respiratory Rate 20 21 Blood Pressure 110/52 L 118/54 L Pulse Oximetry 99 100 Oxygen Delivery Method Nasal Cannula Oxygen Flow Rate 2 01/16/22 14:19 01/16/22 13:00 01/16/22 13:00 Temperature 98.9 F Pulse Rate 96 H Respiratory Rate Blood Pressure 120/81 Pulse Oximetry 99 Oxygen Delivery Method Oxygen Flow Rate 01/16/22 13:30 01/16/22 13:30 01/16/22 14:00 Temperature Pulse Rate 97 H 89 Respiratory Rate 23 18 Blood Pressure 134/84 Pulse Oximetry 98 97 Oxygen Delivery Method Oxygen Flow Rate 01/16/22 14:01 01/16/22 14:01 01/16/22 14:30 Temperature 98.9 F Pulse Rate 89 Respiratory Rate 17 Blood Pressure 115/58 L 121/55 L Pulse Oximetry 98 Oxygen Delivery Method Nasal Cannula Oxygen Flow Rate 3 01/16/22 14:30 01/16/22 15:00 01/16/22 15:00 Temperature Pulse Rate 82 80 Respiratory Rate 19 19 Blood Pressure 125/57 L Pulse Oximetry 98 100 Oxygen Delivery Method Oxygen Flow Rate 01/16/22 15:30 01/16/22 15:31 01/16/22 15:31 Temperature Pulse Rate 79 79 Respiratory Rate 22 17 Blood Pressure 117/56 L Pulse Oximetry 98 96 Oxygen Delivery Method Oxygen Flow Rate 01/16/22 16:00 01/16/22 16:01 01/16/22 16:01 Temperature Pulse Rate 75 75 Respiratory Rate 17 18 Blood Pressure 105/53 L Pulse Oximetry 93 93 Oxygen Delivery Method Room Air Oxygen Flow Rate 01/16/22 16:30 01/16/22 16:30 01/16/22 17:00 Temperature Pulse Rate 71 69 Respiratory Rate 17 17 Blood Pressure 100/51 L Pulse Oximetry 96 Oxygen Delivery Method Oxygen Flow Rate 01/16/22 17:01 01/16/22 17:01 01/16/22 17:30 Temperature Pulse Rate 69 Respiratory Rate 16 Blood Pressure 108/52 L 98/48 L Pulse Oximetry Oxygen Delivery Method Oxygen Flow Rate 01/16/22 17:30 01/16/22 17:39 01/16/22 17:39 Temperature Pulse Rate 73 71 Respiratory Rate 19 14 Blood Pressure 98/51 L Pulse Oximetry 98 99 Oxygen Delivery Method Nasal Cannula Oxygen Flow Rate 1 01/16/22 18:00 01/16/22 18:00 01/16/22 18:30 Temperature Pulse Rate 65 64 Respiratory Rate 23 16 Blood Pressure 108/53 L Pulse Oximetry 99 98 Oxygen Delivery Method Oxygen Flow Rate 01/16/22 18:31 01/16/22 18:31 01/16/22 18:40 Temperature 97.7 F Pulse Rate 65 68 Respiratory Rate 17 17 Blood Pressure 108/54 L 120/44 L Pulse Oximetry 99 98 Oxygen Delivery Method Nasal Cannula Oxygen Flow Rate 1 1 Oxygen Delivery Method Nasal Cannula Oxygen Flow Rate 1 Narrative Exam Narrative: General: Patient is a morbidly obese, chronically ill appearing, slightly lethargic 66-year-old male with slowed speech, who appears quite older than stated age, in no acute distress at this time. HEENT: Normocephalic, atraumatic, extraocular muscles intact, oral pharynx is clear and mucous membranes are moist. Neck is supple and symmetric, trachea is midline, no adenopathy, no thyroid enlargement, nontender, no masses palpated. Negative for JVD Chest: Breathing with no nasal flaring, retractions, tachypneic, or labored breathing- 96% on Rm Air. Lungs: Auscultation of all lung han are clear without adventitious sounds, wheezes, rhonchi, or rales. Cardio: regular rate and rhythm without murmur, rubs, or gallops, no carotid bruit, no cardiac pulsations present. Abdomen: Soft nontender, negative for organomegaly, or masses. Bowel sounds are present in all 4 quadrants without guarding or rebound, no CVA tenderness.- Cath was placed in ED-unclear as to why. Musculoskeletal: Right lower extremity: No obvious red streaking/ cellulitis.? There is a chronic appearing ulcer at the right 1st MTP head with periosteal callus.?Dry blood center present, no purulence.? No erythema.? No swelling.? Palpable dorsalis pedis pulse.? Calf is soft.? No evidence of ascending cellulitis and no gas.? No crepitus no fluctuance or obvious abscess.? Chronic appearing diabetic ulcer Muscle General overall physical muscle wasting/deconditioning/global weakness. intact radial and pedal pulses are normal. Skin: Cool, Pale, dry and intact wth the exception of documented above. Neuro: Alert and orientated x3, moves all extremities, sensation to touch intact, no gross deficits noted of cranial nerves. Psych: Patient appears much older than stated age, chronically ill appearance, flat affect, slow speech, thought process and train of thought are scattered, disorganized. Objective Labs Result Diagrams: 01/16/22 12:02 01/16/22 12: Labs: Laboratory Results - last 24 hr 01/16/22 01/16/22 01/16/22 12: 12:02 12:02 WBC 8.3 RBC 3.86 L Hgb 11.8 L Hct 34.8 L MCV 90.1 MCH 30.6 MCHC 34.0 RDW 13.8 Plt Count 197 Neut % (Auto) 80.4 H Lymph % (Auto) 11.3 L [place] % (Auto) 6.3 Eos % (Auto) 1.4 L Baso % (Auto) 0.6 Neut # (Auto) 6600 Lymph # (Auto) 900 L [place] # (Auto) 500 Eos # (Auto) 100 Baso # (Auto) 0 PT 14.2 H INR 1.2 APTT 26 Sodium Potassium Chloride Carbon Dioxide BUN Creatinine Estimated GFR BUN/Creatinine Ratio Glucose Hemoglobin A1c Lactate Calcium Magnesium Total Bilirubin AST ALT Alkaline Phosphatase Total Protein Albumin Globulin Albumin/Globulin Ratio Lipase Procalcitonin TSH Free T4 Urine RBC Urine WBC Ur Squamous Epith Cells Urine Bacteria Chlamy pneumoniae PCR Adenovirus (PCR) B. pertussis DNA (PCR) B.parapertussis DNA PCR Coronavirus OC43 (PCR) Coronavirus HKU1 (PCR) Coronavirus 229E (PCR) SARS-CoV-2 (PCR) Negative Coronavirus NL63 (PCR) Human Metapneumovir PCR Influenza A (RT-PCR) Flu a negative Influenza Type A (PCR) Influenza B (RT-PCR) Flu b negative Influenza Type B (PCR) M. pneumoniae (PCR) Parainfluenza 1 (PCR) Parainfluenza 2 (PCR) Parainfluenza 3 (PCR) Parainfluenza 4 (PCR) RSV (PCR) Negative Entero/Rhino (PCR) 01/16/22 01/16/22 01/16/22 12:02 12:02 12:02 WBC RBC Hgb Hct MCV MCH MCHC RDW Plt Count Neut % (Auto) Lymph % (Auto) [place] % (Auto) Eos % (Auto) Baso % (Auto) Neut # (Auto) Lymph # (Auto) [place] # (Auto) Eos # (Auto) Baso # (Auto) PT INR APTT Sodium 140 Potassium 4.0 Chloride 97 L Carbon Dioxide 36 H BUN 16 Creatinine 0.96 Estimated GFR > 60 BUN/Creatinine Ratio 16.7 Glucose 140 H Hemoglobin A1c 6.8 H Lactate 1.7 Calcium 9.4 Magnesium Total Bilirubin 0.5 AST 90 H ALT 33 Alkaline Phosphatase 97 Total Protein 8.0 Albumin 4.2 Globulin 3.8 Albumin/Globulin Ratio 1.1 Lipase 31 Procalcitonin 0.18 TSH Free T4 Urine RBC Urine WBC Ur Squamous Epith Cells Urine Bacteria Chlamy pneumoniae PCR Adenovirus (PCR) B. pertussis DNA (PCR) B.parapertussis DNA PCR Coronavirus OC43 (PCR) Coronavirus HKU1 (PCR) Coronavirus 229E (PCR) SARS-CoV-2 (PCR) Coronavirus NL63 (PCR) Human Metapneumovir PCR Influenza A (RT-PCR) Influenza Type A (PCR) Influenza B (RT-PCR) Influenza Type B (PCR) M. pneumoniae (PCR) Parainfluenza 1 (PCR) Parainfluenza 2 (PCR) Parainfluenza 3 (PCR) Parainfluenza 4 (PCR) RSV (PCR) Entero/Rhino (PCR) 01/16/22 01/16/22 01/16/22 12:02 12:02 14:13 WBC RBC Hgb Hct MCV MCH MCHC RDW Plt Count Neut % (Auto) Lymph % (Auto) [place] % (Auto) Eos % (Auto) Baso % (Auto) Neut # (Auto) Lymph # (Auto) [place] # (Auto) Eos # (Auto) Baso # (Auto) PT INR APTT Sodium Potassium Chloride Carbon Dioxide BUN Creatinine Estimated GFR BUN/Creatinine Ratio Glucose Hemoglobin A1c Lactate Calcium Magnesium 1.6 Total Bilirubin AST ALT Alkaline Phosphatase Total Protein Albumin Globulin Albumin/Globulin Ratio Lipase Procalcitonin TSH 0.35 L Free T4 0.79 Urine RBC Urine WBC Ur Squamous Epith Cells Urine Bacteria Chlamy pneumoniae PCR Not detected Adenovirus (PCR) Not detected B. pertussis DNA (PCR) Not detected B.parapertussis DNA PCR Not detected Coronavirus OC43 (PCR) Not detected Coronavirus HKU1 (PCR) Not detected Coronavirus 229E (PCR) Not detected SARS-CoV-2 (PCR) Not detected Coronavirus NL63 (PCR) Not detected Human Metapneumovir PCR Not detected Influenza A (RT-PCR) Influenza Type A (PCR) Not detected Influenza B (RT-PCR) Influenza Type B (PCR) Not detected M. pneumoniae (PCR) Not detected Parainfluenza 1 (PCR) Not detected Parainfluenza 2 (PCR) Not detected Parainfluenza 3 (PCR) Not detected Parainfluenza 4 (PCR) Not detected RSV (PCR) Not detected Entero/Rhino (PCR) Not detected 01/16/22 15:40 WBC RBC Hgb Hct MCV MCH MCHC RDW Plt Count Neut % (Auto) Lymph % (Auto) [place] % (Auto) Eos % (Auto) Baso % (Auto) Neut # (Auto) Lymph # (Auto) [place] # (Auto) Eos # (Auto) Baso # (Auto) PT INR APTT Sodium Potassium Chloride Carbon Dioxide BUN Creatinine Estimated GFR BUN/Creatinine Ratio Glucose Hemoglobin A1c Lactate Calcium Magnesium Total Bilirubin AST ALT Alkaline Phosphatase Total Protein Albumin Globulin Albumin/Globulin Ratio Lipase Procalcitonin TSH Free T4 Urine RBC None seen Urine WBC 10-30/hpf H Ur Squamous Epith Cells 0-1 /hpf Urine Bacteria Few (2-10) H Chlamy pneumoniae PCR Adenovirus (PCR) B. pertussis DNA (PCR) B.parapertussis DNA PCR Coronavirus OC43 (PCR) Coronavirus HKU1 (PCR) Coronavirus 229E (PCR) SARS-CoV-2 (PCR) Coronavirus NL63 (PCR) Human Metapneumovir PCR Influenza A (RT-PCR) Influenza Type A (PCR) Influenza B (RT-PCR) Influenza Type B (PCR) M. pneumoniae (PCR) Parainfluenza 1 (PCR) Parainfluenza 2 (PCR) Parainfluenza 3 (PCR) Parainfluenza 4 (PCR) RSV (PCR) Entero/Rhino (PCR) Assessment & Plan Assessment & Plan narrative: Josue Mesa this is a 66-year-old male with history NSTEMI, right foot osteomyelitis with 4th right toe amputation, insulin-dependent diabetes with peripheral autonomic neuropathy, chronic right foot/toe diabetic wound, essential tremor morbid obesity, hypertension, AGATHA/Cpap who presented to the ED brought in by ambulance from assisted living at [facility] for concerns of infection of the chronic right diabetic toe ulcer. ED found the patient to have a fever of 103, and concerns of cellulitis. ED admitted for weakness diabetic foot ulcer and fever, but after careful review of wound clinic charts, podiatry charts, Dr. Vargas in-person evaluation in the emergency department, and exam of the patient it appears that the patient's global weakness and diabetic right toe foot ulcers are chronic conditions. Patient admitted for fever of unknown etiology. Fever had resolved at the time of admit expect overnight monitoring and will be able to be discharged to [facility] tomorrow, unless cultures are positive. 1. Fever, acute of unknown etiology, present on admission-resolved -ED reported a temperature of 103? Admit: temp 97.7?, BP 120/44, HR 68, R 17, O2 saturation 98% on room air, no no distress. -No WBC, lactate, lipase, procalcitonin, and respiratory panel are all unremarkable. -Urinalysis: WBCs and bacteria. Urine, blood- cultures pending. -Chest x-ray limited no acute cardiopulmonary processes noted. -Tylenol as needed -trend inflammatory markers, labs and review culture results. 2.Right 1st metatarsal head diabetic ulcer, acute on chronic, with recurrent wound sub 1st metatarsal head, acute on chronic, secondary to insulin-dependent diabetes with neuropathy, present on admission -Managed by: Construction Administrator Dr. Solitario [facility] at [facility] last seen in November 2021 at which point he prescribed orthotic modifications and had a debridement of the hyperkeratosis. -Per Dr. Vargas Ortho in person ED consult:Diabetic foot ulcer associated with diabetes mellitus due to underlying condition: Plan: Chronic appearing right 1st metatarsal head diabetic ulcer.? No obvious osteomyelitis or ascending infection.? No obvious abscess.? No current indication for surgery.? Discussed, I do not think that the foot wound is what is causing his acute presentation.? Does not appear to be a sufficient source for his systemic symptoms.? Recommend further workup with medicine or ER regarding this.? I do not recommend any surgery for the foot at this time.? Recommend follow-up with patient's outpatient operations program manager for continuing off loading measures and chronic wound care for the diabetic neuropathic ulceration.? If patient does not improve and no other source found were negative blood cultures could pursue MRI of the right foot with and without contrast but again unlikely given appearance of foot that any acute surgical indication.? I would recommend follow-up with outpatient operations program manager Dr. Solitario and or wound care for ongoing diabetic ulceration care and primary care follow-up for tight glycemic control -Right foot x-ray demonstrated no fracture, distal soft tissue swelling. -because the patient has no white count, negative inflammatory markers-holding antibiotic intervention at this time, we will re-evaluate following culture results. -wound and Gram stain cultures pending -ordered a wound care consult, wound care b.i.d. -dietary consult placed 3. Global weakness/deconditioning, acute on chronic secondary to morbid obesity acute on chronic, present on admission -as evidence by BMI 45.3 -Review chart notes going back as far as 2015 it should be noted that patient has a longstanding history since 2016 of morbid obesity, sedentary lifestyle, chronic weakness, frequent fevers, uncontrolled diabetes with foot ulcers, and inability to care for himself, going into assisted living in 2018. -dietary consult ordered regarding nutritional education and information for dietary, lifestyle, exercise, and weight changes. -the patient is at much higher risk for medical and surgical complications due to morbid obesity as it relates to chronic illnesses like diabetes, with chronic foot ulcers. The patient's morbid obesity increases the difficulty and complexity of medical and/or surgical interventions, management and increases the chances of poor outcome such as morbidity and mortality as well as impaired wound healing. -PT/OT consult space 4. Insulin-dependent type 2 diabetes, with peripheral neuropathy, history right 4th toe amputation, chronic diabetic foot ulceration, acute on chronic, present on admission -well controlled, admit blood sugar 140, A1c 6.8% -patient admitted under diabetic protocols monitor for hyper/hypoglycemia -glucose checks a.c. HS, carbohydrate diet -continue Lantus, NovoLog and gabapentin 5. Hypertension essential, chronic, present on admission -continue enalapril 6. BPH, chronic, present on admission -continue Flomax 7. Essential tremor, chronic, present on admission -continue Primidone 8. Obstructive sleep apnea, chronic, with CPAP, present on admission -respiratory consult placed-offer patient's CPAP support Code status: Full Surrogate decision maker: Brother Sandip Segura COVSHERITA PCR: Negative DVT/VTE prophylaxis: Lovenox and SCDs Disposition: Patient admitted for observation for fever, patient has not demonstrated fever or any signs infectious process/sepsis, expect the patient to be able to return to [facility] tomorrow, length of stay expected to be less than 2 midnights. I have utilized all available immediate resources to obtain, update, or review the patient's current medications. I confirmed that the patient's advanced care plan is present, Code status is documented and/or surrogate decision maker is listed in the patient's medical record. I have personally reviewed patient's chart notes from PCP, specialists, diagnostic imaging, and laboratory, Time Spent With Patient Critical Care time: I spent a total of [] minutes of critical care time on this patient's care today; this time is exclusive of procedural time.
[2022-01-16] MEDS: PIPERACILLIN/TAZO 3.375 GM in SODIUM CHLORIDE 0.9% 100 ML IV (20:12)
[2022-01-16] MEDS: GABAPENTIN 400 MG CAPSULE 1200 MG PO (21:59)
[2022-01-16] MEDS: FUROSEMIDE 40 MG TABLET PO (22:01)
[2022-01-16] MEDS: PRIMIDONE 50 MG TABLET 250 MG PO (22:01)
[2022-01-16] MEDS: OXYCODONE IR 5 MG TABLET 10 MG PO (22:24)
[2022-01-16] MEDS: INSULIN GLARGINE 100 UNIT/ML 3ML PEN 30 UNIT SUBCUT (23:30)
[2022-01-17 01:00] VITALS: BP 122/50; PULSE 64; RESP 17; TEMP 36.7; O2SAT 94
[2022-01-17] MEDS: ACETAMINOPHEN 325 MG TABLET 650 MG PO (02:29)
[2022-01-17 06:10] LABS: Add Manual Diff / Slide Review NO; Basophils Absolute Auto 0 /uL (0-100); Basophils Percent Auto 0.5 % (0-2); Eosinophils Absolute Auto 200 /uL (0-450); Eosinophils Percent Auto 3.1 % (2-4); Hematocrit 26.6 % (41-53); Hemoglobin 9.2 g/dL (13.5-17.5); Lymphocytes Absolute Auto 1200 /uL (1100-4500); Mean Corpuscular HGB Conc 34.6 % (30-36); Mean Corpuscular Hemoglobin 31.1 PG (26-34); Monocytes Absolute Auto 600 /uL (0-900); Monocytes Percent Auto 8.8 % (3-14); Neutrophils Absolute Auto 4700 /uL (1500-7000); Neutrophils Percent Auto 69.6 % (50-75); Platelet Count 155 X10^3/uL (150-400); Red Blood Cell Count 2.96 X10^6/uL (4.5-5.9); Red Cell Distribution Width 14.4 % (11.6-14.8); White Blood Cell Count 6.7 X10^3/uL (4.5-11.0)
[2022-01-17 06:15] LABS: BUN Creatinine Ratio 20.7 (6-22); Blood Urea Nitrogen 19 mg/dL (9-20); Calcium 8.1 mg/dL (8.4-10.2); Carbon Dioxide 31 mmol/L (22-32); Chloride 101 mmol/L (98-107); Estimated Glomerular Filt Rate > 60 mL/min (>60); Glucose 189 mg/dL (80-110); HEMOLYSIS < 15 (0-50); Potassium 3.6 mmol/L (3.4-5.1); Sodium 139 mmol/L (137-145)
--- NOTE | 2022-01-17 06:26 | PC.NURSE ---
ESTELA Pena from [facility] called 01/17/2022 @3120 requesting an update. The nurse was informed of the pt's current status and the events leading to admission. Reportedly, the pt at baseline is independent with a FWW and commonly has a flat affect.
[2022-01-17 06:32] LABS: Procalcitonin 0.23 ng/mL (<0.5)
--- NOTE | 2022-01-17 06:40 | PC.NURSE ---
R foot diabetic ulcer.
[2022-01-17 06:58] VITALS: BP 110/47; PULSE 60; RESP 17; TEMP 36.7; O2SAT 96
[2022-01-17] MEDS: GABAPENTIN 400 MG CAPSULE 1200 MG PO (08:42)
[2022-01-17] MEDS: ENOXAPARIN 40 MG/0.4 ML SYRINGE SUBCUT (08:42)
[2022-01-17] MEDS: INSULIN LISPRO 100 UNIT/ML 3ML VIAL SUBCUT ×2 (08:45→12:21)
[2022-01-17] MEDS: INSULIN GLARGINE 100 UNIT/ML 3ML PEN 30 UNIT SUBCUT (08:46)
[2022-01-17] MEDS: OXYCODONE IR 5 MG TABLET 10 MG PO (08:49)
[2022-01-17] MEDS: PANTOPRAZOLE DR 40 MG TABLET PO (08:49)
[2022-01-17] MEDS: FUROSEMIDE 40 MG TABLET PO (08:49)
[2022-01-17] MEDS: polyethylene glycoL 3350 17 GM POWD.PACK PO (08:52)
[2022-01-17] MEDS: PRIMIDONE 50 MG TABLET 250 MG PO (08:54)
--- NOTE | 2022-01-17 09:36 | PC.NURSE ---
Addendum entered by Elenita Mathews R.N. 01/17/22 12:02: Patients urine culture came back gram positive cocci, patient is now on contact precautions. Original Note: Patient is a pleasant and cooperative man who states that his pain level is a 4/10. 10mg of po oxycodone given and this has been adequate for pain control. Patient has a skin ulcer to his r.foot under big toe that has a small black center and area around it is callused. He also has some maceration to his bottom, bruising, dry skin, and some scratches. Blood sugar this morning 145 and insulin given.
--- NOTE | 2022-01-17 10:36 | CM.DANOTE ---
Addendum entered by IRENE Ly 01/17/22 13:49: ADD: Per , pt medically stable to d/c back to [facility] today and signed med list. ENRICO called Alfonso PALMER at [facility] and updated and faxed signed med list, scripts and clinicals to review and requested transport around [phone] if possible per RN. BF Original Note: Patient is a 66 yo male who was admitted on 01/16/22 for Fever/Weakness. Pt has [facility] and [facility] for insurance and his PCP is Guillermina Hair or ALEJANDRO Carbone. EMR was reviewed. Per , pt with hx of NSTEMI, osteomyelitis, amp toe, dieabetes with chronic diabetic foot ulcer. Pt's fever has resolved and unknown etiology and Ortho Consult does not feel chronic foot ulcer the cause and seems stable and no need for intervention at this time. PT/OT ordered and pending. SW met bedside with pt and explained role and he confirms he lives at [facility] since 2018 after his medical needs increased with his osteomyelitis, etc.. and ambulates independently with FWW and takes care of his medications. Pt states his DPOAs are his sister and brother and they are fairly local and supportive. Pt has a hx of [facility] for SNF and [facility] for therapies and does not feel HH likely needed at this time. Pt has also been seeing a Neurologist due to his balance issues that did not resolve with PT. Pt aware he may be stable for d/c back to [facility] today and would be agreeable but did have some BP issues and urinary retention and therefore will work with PT/OT and ambulate. ENRICO called Alfonso PALMER at [facility] and updated on possible d/c back to their facility today and Alfonso confirms they can accept back if prior to 1500 and does not need any clinicals faxed yet at this time, just at discharge. Plan: SW to follow closely for PT/OT eval this morning to confirm safe return back to [facility] today if medically stable. IRENE Ly Discharge Planning/Care Management CM Discharge Assessment Start: 01/17/22 10:34 Freq: Status: Active Protocol: Document 01/17/22 10:34 BF (Rec: 01/17/22 10:36 BF [id number]) Discharge Planning Assessment Assigned Panelbeater IRENE Quinn DPOA/Assigned Designee Name brother Lokesh and sister Safia Contact Information [phone] Advance Directives? Yes: POLST Advance Directives on File Yes: Dated 03/10/16 History Provided By Patient,Medical Record Has Patient been admitted in last 30 No days? Prior Living Arrangements Assisted Living Household Members none Type of transporation used prior to Relies on Others admit Facility Name Admitted From: [facility] Willing to Return to Facility? Yes Independent with ADL's Yes Is patient alert and oriented? Yes Needs Assistance With Home Chores / Shopping Caregiver for Another No DME Already Rented / Owned Elevated Toilet Seat,FWW / Walker Barriers to Discharge No Discharge Plan Assisted Living Facility Transportation Arrangement facility w/c Referrals Initiated None needed Whiteboard Updated in Patient Room with Yes name and ext. # of Panelbeater Review Status In Process Please Provide Date Initial DC 01/17/22 Assessment Was Performed Next Review Type Continued Stay Review
[2022-01-17] MEDS: MAGNESIUM CHLORIDE 64 MG TABLET 128 MG PO (10:40)
--- NOTE | 2022-01-17 10:41 | PT.IIE ---
Current Diagnoses Diabetes mellitus due to underlying condition with foot ulcer (01/16/22) Type 2 diabetes mellitus with foot ulcer (01/16/22) Non-pressure chronic ulcer of other part of unspecified foot with unspecified severity (01/16/22) Surgical History (Last Updated 01/16/22 @ 21:04 by WILDER Franklin) History of amputation of lesser toe of right foot Medical History (Last Updated 01/16/22 @ 21:03 by WILDER Franklin) Cellulitis (02/27/17) Chronic ulcer of right foot limited to breakdown of skin Closed non-physeal fracture of proximal phalanx of great toe with malunion Depression Diabetes Essential tremor History of non-ST elevation myocardial infarction (NSTEMI) Hypertension Insulin dependent diabetes mellitus Morbid obesity MRSA (methicillin resistant Staphylococcus aureus) (02/27/17) AGATHA treated with BiPAP Peripheral autonomic neuropathy Peripheral vascular disease Polypharmacy Sedentary lifestyle Sepsis (02/27/17) Severe muscle deconditioning Sleep apnea Thrombocytopenia Toe amputation status Visit for wound care Physical Therapy Inpatient Evaluation/Re-Eval M1 PT/OT-IP Prior Functional Status Start: 01/17/22 08:57 Freq: NEEDED Status: Active Protocol: Document 01/17/22 10:41 AW (Rec: 01/17/22 12:27 AW [id number]) Medical Review Prior Functional Status Medical History Reviewed Yes Communication Pt is able to make his needs known Mobility and Gait Pt uses 4WW for facility distances. He uses a power wheelchair for longer distances. Activities of Daily Living and IADL's Pt states he does not get facility assist with ADL's but that he can ask for help with showers if he feels he needs it. Prior Functional Level (Other details) PMH includes NSTEMI, R foot osteomyelitis s/p 4th digit amputation, DM2, BMI 45. Social History Household Members none Living Arrangements Assisted Living Number of Stairs To Enter/Railing? Pt uses elevator Home Environment Standard Height Toilet,Walk in Shower Home Equipment Four Wheel Walker,Power Wheelchair/Scooter,Shower Seat with Backrest,Grab Bars In Shower Additional Social History Comment Pt uses a wedge pillow in bed. He has a transfer pole between his toilet and shower. He resides at [facility]. M2 PT-IP Current Condition Start: 01/17/22 08:57 Freq: NEEDED Status: Active Protocol: Document 01/17/22 10:41 AW (Rec: 01/17/22 12:27 AW [id number]) Physical Therapy Current Condition Current Condition Evaluation Date 01/17/22 Treatment Diagnosis weakness, R foot ulcer, impaired mobility and gait Onset Date 01/16/22 M3 PT-IP Subjective Start: 01/17/22 08:57 Freq: NEEDED Status: Active Protocol: Document 01/17/22 10:41 AW (Rec: 01/17/22 12:27 AW [id number]) Subjective Physical Therapy Visit Type Type Initial Evaluation Visit Start Time 10:20 Visit Stop Time 10:41 Total Visit Minutes 21 Notes KAM La was present throughout. Physical Therapy Visit Comments Patient Comments Pt is willing to participate with PT Therapy Pain Assessment Pain When Pain Assessed During Mobility Pain Present Pain Present Pain Reported Location R hip Scale Used not quantified Description With Movement M4 PT-IP Mobility and Gait Start: 01/17/22 08:57 Freq: NEEDED Status: Active Protocol: Document 01/17/22 10:41 AW (Rec: 01/17/22 12:27 AW [id number]) PT-Bed Mobility Assessment Supine to Sit Supine to Sit Standby Assistance,Head of Bed Elevated Scooting Scooting to Edge of Bed Standby Assistance PT-Transfer Assessment Sit to and From Stand Sit to and from Stand Contact Guard Assistance Equipment Transfer Assistive Device Gait Belt,Front Wheeled Walker Orthotic/Prosthetic Devices or Brace: No Transfers Transfer Destination Chair Transfer Technique amb with FWW Transfer Ability Level of Assist Standby Assistance,Contact Guard Assistance Comments Mobility Comments Pt was lying in bed as PT arrived. BP 131/60 HR 62. He stated he has been having some balance concerns and HH PT recently discharged him. He sat up EOB SBA and stood CGA. He used FWW to transfer CGA to the chair set up 5 feet away. He stood again and ambulated around the room at total of 30 feet with FWW CGA before returning to the chair. Gait Assessment Gait Gait Assistance Required: Standby Assistance,Contact Guard Assist Distance (Feet) 30 Assistive Devices Assistive Device Gait Belt,Front Wheeled Walker Orthotic/Prosthetic Devices or Brace: No Gait Deviations General Gait Pattern Decreased Feet Clearance, Flexed Trunk,Wide Based Gait Factors Limiting Gait Function Factors Limiting Gait Function Decreased Activity Tolerance, Decreased Sensation,Decreased Strength,Pain,Poor Balance Comments Gait Comments See mobility comments for details. Stair Climbing Assessment Comments Stair Climbing Comments Not assessed. No stairs at home. PT-Balance Assessment Sitting Balance and Reactions Static Sitting Balance Ability Good Dynamic Sitting Balance Ability Good Standing Balance and Reactions Static Standing Balance Ability Fair Dynamic Standing Balance Ability Fair Device Used FWW M5 PT-IP Objective Assessments Start: 01/17/22 08:57 Freq: NEEDED Status: Active Protocol: Document 01/17/22 10:41 AW (Rec: 01/17/22 12:27 AW [id number]) Orientation Orientation/Cognition Level of Alertness Alert Gross Range of Motion Lower Extremity ROM Assessment Within Functional Limits Strength Lower Extremity Strength Assessment Bilaterally Impaired Hip 4-/5 Knee 4/5 Ankle 4/5 Sensation Assessment Sensation Gross Sensation Right LE Impaired,Left LE Impaired Light Touch Impaired Proprioception (Position) Impaired Sensation Description Numbness Comments Sensation Comments Chronic neuropathy affects BLE . M6 PT-IP Treatment Start: 01/17/22 08:57 Freq: NEEDED Status: Active Protocol: Document 01/17/22 10:41 AW (Rec: 01/17/22 12:27 AW [id number]) Physical Therapy Treatment Education Education Provided Safety M7 PT-IP Assessment and Plan Start: 01/17/22 08:57 Freq: NEEDED Status: Active Protocol: Document 01/17/22 10:41 AW (Rec: 01/17/22 12:27 AW [id number]) PT Summary Assessment and Plan Potential Rehabilitation Potential Fair Status of Condition at Evaluation Stable Summary Impairments Pain,ROM,Strength,Balance, Sensation,Bed Mobility, Transfers,Gait,Activity Tolerance Assessment Summary Josue is a 66 yo resident of [facility] who was admitted with weakness, R foot ulcer, and concern for potential cellulitus. PLOF: Pt is modified independent with 4WW for facility distances. He uses a power wheelchair for longer distances. CLOF: Pt requiring SBA/CGA for mobility with FWW and no overt LOB. He is likely at or near his functional baseline. Given increasing falls frequency, he would benefit from outpatient physical therapy to improve strength, balance, and reduce risk of falls. Goals Bed Mobility Goal Independent Transfer Goal Independent,Front Wheeled Walker Gait Goal Independent,Front Wheel Walker Gait Distance 75 Other Goals - improve transfers and gait to MOD I with 4WW Frequency of Treatment Frequency Of Treatment Once a Day Treatment Plan Physical Therapy Treatment Plan Bed Mobility Training,Transfer Training,Gait Training, Therapeutic Exercise,Balance Retraining,Discharge Planning, Hot or Cold Pack,Neuromuscular Re-ed Precautions Other Precautions contact precautions; falls Recommendations To Nursing Amount of Assist Needed Standby Assistance,1 Person Assist Discharge Recommendations PT Discharge Recommendations Home with Assistance, Outpatient PT Transportation Needs at Discharge Private Vehicle,Wheelchair/ Cabulance
[2022-01-17 12:00] VITALS: BP 138/45; PULSE 68; RESP 18; TEMP 36.2; O2SAT 100
--- NOTE | 2022-01-17 14:46 | PM.DS.1 ---
History of Present Illness History of Present Illness Date Patient Seen: 01/16/22 Time Patient Seen: 18:31 Chief complaint: AMS, Rt foot infection, GLF today Narrative: Per admitting provider: Josue Moshe this is a 66-year-old male with history NSTEMI, right foot osteomyelitis with 4th right toe amputation, insulin-dependent diabetes with peripheral autonomic neuropathy, chronic right foot/toe diabetic wound, essential tremor morbid obesity, hypertension, AGATHA/Cpap who presented to the ED brought in by ambulance from assisted living at [facility] ED noted red streaking to the anterior right leg, fever of 103. Patient reported that while up using his walker to go the bathroom, felt weak, tried to lay down on the bed based slid off of it.? Denies any injury or hitting his head.? Patient presented to ED awake alert oriented x4.? Was given sepsis fluid bolus, Tylenol & ibuprofen, langford placement, and Patient was in no distress, denied urinary, cough, cold, congestion, vomiting diarrhea, abdominal pain, chest pain or headache. As an outpatient has seen glass vial filler Dr. [facility] at [facility] last seen in November 2021 at which point he was noted to have of right 1st metatarsal head diabetic ulcer with fat layer exposed.? Recurrent wound sub 1st metatarsal head was prescribed orthotic modifications and had a debridement of the hyperkeratosis. Review chart notes going back as far as 2015 it should be noted that patient has a longstanding history since 2016 of morbid obesity, sedentary lifestyle, chronic weakness, frequent fevers, uncontrolled diabetes with foot ulcers, and inability to care for himself, going into assisted living in 2018. Upon admit to the floor patient is stable, patient appears slightly lethargic, flat affect, speech is quite slow-unsure if this is the patient's baseline. Patient denies chest pain, SOB, headache, cough, nasal congestion, fever, body aches, chills, abdominal pain, nausea, vomiting, diarrhea, urinary symptoms frequency urgency dysuria, hematuria, hematemesis, melena, recent illness injury or trauma that otherwise stated above. Fever has resolved, vital signs are stable temp 97.7?, BP 120/44, HR 68, R 17, O2 saturation 98% on room air, no no distress. H&H stable 11.8/34.8, bicarb 36, glucose 140, A1c 6.8, lactate, lipase, procalcitonin, and respiratory panel are all unremarkable. Urinalysis had WBCs and bacteria. Urine, blood, wound and gram stain cultures pending. Right foot x-ray demonstrated no fracture, distal soft tissue swelling. Chest x-ray limited no acute cardiopulmonary processes noted. Dr. Martinez orthopedics consult examination and reviewed imaging in the ED, and did not fill the patient's presentation of weakness and temperature were related to diabetic foot ulcer. Patient admitted for observation fever unknown etiology. Discharge Providers Provider Date of admission: 01/16/22 17:41 Discharge Date: 01/17/22 Primary care physician: Guillermina Hair MD Consults: 01/16/22 18:13 Consult to Occupational Therapy Evaluate & Treat Comment: Physician Instructions: Evaluate and treat Consult to Physical Therapy Evaluate & Treat Comment: Physician Instructions: Evaluate and Treat 01/17/22 01:26 Consult to Dietitian, Adult Urgent Comment: Reason For Exam: BMI 45.3, DM chronic ft ulcer Consult to Inpatient Wound Care Nurse Routine Comment: Reason for consultation: DM rt toe chronic ulcer Has provider been notified: No Consult to Wound Care Routine Comment: Consulting Provider: Diana- Wound Care Discharge provider: Kevon Gold MD Summary Hospital Course Discharge Diagnosis: 1. UTI 2. Possible cellulitis 3. Chronic diabetic foot ulcer 4. Type 2 Diabetes, with peripheral neuropathy, history R 4th sofy amputation 5. Hypertenison 6. BPH 7. Tremor Hospital Course: Mr. Mesa was admitted with weakness. He was found to have a UTI. He was given antibiotics. He possibly had a cellulitis. He should complete antibiotics. Exam Vital Signs (past 8 hours): - 01/17/22 06:58 01/17/22 12:00 Temperature 98.0 F 97.2 F L Pulse Rate 60 68 Respiratory Rate 17 18 Blood Pressure 110/47 L 138/45 L Pulse Oximetry 96 100 Oxygen Flow Rate 0 0 Fraction of Inspired Oxygen 24 SaO2/FiO2 Ratio 412 Oxygen Delivery Method Nasal Cannula Oxygen Flow Rate 0 Narrative Exam Narrative: GEN: no acute distress CV: regular rate and rhythm ABD: soft, nontender, nondistneded EXT: ulcer on right plantar foot, with no erythema or pus Objective Labs Result Diagrams: 01/17/22 05:44 01/17/22 05:44 Labs: Laboratory Results - last 24 hr 01/16/22 01/16/22 01/16/22 12:02 12:02 12:02 WBC RBC Hgb Hct MCV MCH MCHC RDW Plt Count Neut % (Auto) Lymph % (Auto) [place] % (Auto) Eos % (Auto) Baso % (Auto) Neut # (Auto) Lymph # (Auto) [place] # (Auto) Eos # (Auto) Baso # (Auto) Sodium Potassium Chloride Carbon Dioxide BUN Creatinine Estimated GFR BUN/Creatinine Ratio Glucose Hemoglobin A1c 6.8 H Calcium Magnesium 1.6 Procalcitonin TSH 0.35 L Free T4 0.79 Urine RBC Urine WBC Ur Squamous Epith Cells Urine Bacteria Chlamy pneumoniae PCR Adenovirus (PCR) B. pertussis DNA (PCR) B.parapertussis DNA PCR Coronavirus OC43 (PCR) Coronavirus HKU1 (PCR) Coronavirus 229E (PCR) SARS-CoV-2 (PCR) Coronavirus NL63 (PCR) Human Metapneumovir PCR Influenza Type A (PCR) Influenza Type B (PCR) M. pneumoniae (PCR) Parainfluenza 1 (PCR) Parainfluenza 2 (PCR) Parainfluenza 3 (PCR) Parainfluenza 4 (PCR) RSV (PCR) Entero/Rhino (PCR) 01/16/22 01/16/22 01/17/22 14:13 15:40 05:44 WBC 6.7 RBC 2.96 L Hgb 9.2 L Hct 26.6 L MCV 90.0 MCH 31.1 MCHC 34.6 RDW 14.4 Plt Count 155 Neut % (Auto) 69.6 Lymph % (Auto) 18.0 L [place] % (Auto) 8.8 Eos % (Auto) 3.1 Baso % (Auto) 0.5 Neut # (Auto) 4700 Lymph # (Auto) 1200 [place] # (Auto) 600 Eos # (Auto) 200 Baso # (Auto) 0 Sodium Potassium Chloride Carbon Dioxide BUN Creatinine Estimated GFR BUN/Creatinine Ratio Glucose Hemoglobin A1c Calcium Magnesium Procalcitonin TSH Free T4 Urine RBC None seen Urine WBC 10-30/hpf H Ur Squamous Epith Cells 0-1 /hpf Urine Bacteria Few (2-10) H Chlamy pneumoniae PCR Not detected Adenovirus (PCR) Not detected B. pertussis DNA (PCR) Not detected B.parapertussis DNA PCR Not detected Coronavirus OC43 (PCR) Not detected Coronavirus HKU1 (PCR) Not detected Coronavirus 229E (PCR) Not detected SARS-CoV-2 (PCR) Not detected Coronavirus NL63 (PCR) Not detected Human Metapneumovir PCR Not detected Influenza Type A (PCR) Not detected Influenza Type B (PCR) Not detected M. pneumoniae (PCR) Not detected Parainfluenza 1 (PCR) Not detected Parainfluenza 2 (PCR) Not detected Parainfluenza 3 (PCR) Not detected Parainfluenza 4 (PCR) Not detected RSV (PCR) Not detected Entero/Rhino (PCR) Not detected 01/17/22 05:44 WBC RBC Hgb Hct MCV MCH MCHC RDW Plt Count Neut % (Auto) Lymph % (Auto) [place] % (Auto) Eos % (Auto) Baso % (Auto) Neut # (Auto) Lymph # (Auto) [place] # (Auto) Eos # (Auto) Baso # (Auto) Sodium 139 Potassium 3.6 Chloride 101 Carbon Dioxide 31 BUN 19 Creatinine 0.92 Estimated GFR > 60 BUN/Creatinine Ratio 20.7 Glucose 189 H Hemoglobin A1c Calcium 8.1 L Magnesium Procalcitonin 0.23 TSH Free T4 Urine RBC Urine WBC Ur Squamous Epith Cells Urine Bacteria Chlamy pneumoniae PCR Adenovirus (PCR) B. pertussis DNA (PCR) B.parapertussis DNA PCR Coronavirus OC43 (PCR) Coronavirus HKU1 (PCR) Coronavirus 229E (PCR) SARS-CoV-2 (PCR) Coronavirus NL63 (PCR) Human Metapneumovir PCR Influenza Type A (PCR) Influenza Type B (PCR) M. pneumoniae (PCR) Parainfluenza 1 (PCR) Parainfluenza 2 (PCR) Parainfluenza 3 (PCR) Parainfluenza 4 (PCR) RSV (PCR) Entero/Rhino (PCR) [facility] Medical History (Updated 01/16/22 @ 21:05 by WILDER Franklin) Cellulitis (02/27/17) Chronic ulcer of right foot limited to breakdown of skin Closed non-physeal fracture of proximal phalanx of great toe with malunion Depression Diabetes Essential tremor History of non-ST elevation myocardial infarction (NSTEMI) Hypertension Insulin dependent diabetes mellitus Morbid obesity MRSA (methicillin resistant Staphylococcus aureus) (02/27/17) AGATHA treated with BiPAP Peripheral autonomic neuropathy Peripheral vascular disease Polypharmacy Sedentary lifestyle Sepsis (02/27/17) Severe muscle deconditioning Sleep apnea Thrombocytopenia Toe amputation status Visit for wound care Surgical History (Updated 01/16/22 @ 21:04 [facility] History of amputation of lesser toe of right foot Family History Father Cancer Congestive heart failure Mother Cancer Social History household members: none Smoking Status: Never smoker Discharge Plan Discharge Plan Patient Disposition: Home Provider Discharge Comment: Mr. Mesa was admitted with a urinary tract infection. He improved with antibiotics. He also had a very mild skin infection. He will be discharged with two antibiotics for a few more days and should complete them. Discharge orders & Medications Prescriptions: New levofloxacin 750 mg tablet 750 mg PO DAILY Qty: 4 0RF clindamycin HCl 300 mg capsule 300 mg PO Q6H Qty: 12 0RF Continued gabapentin 800 MG tablet 1,200 mg PO TID Qty: 0 furosemide 80 MG tablet 40 mg PO BID Qty: 0 enalapril maleate 20 MG tablet 20 mg PO Q DAY Qty: 0 acetaminophen [Tylenol Extra Strength] 500 MG tablet 1,000 mg PO Q4H PRN (Reason: Pain) Qty: 0 multivitamin Capsule 1 cap PO DAILY fluticasone propionate [24 Hour Allergy Relief] 50 mcg/actuation spray,suspension 2 spray INTRANASAL DAILY vitamin B complex Capsule 1 cap PO DAILY polyethylene glycol 3350 17 gram/dose Powder 17 g PO PRN PRN (Reason: Constipation) primidone 50 mg Tablet 250 tab PO BID bisacodyl 5 mg Tablet 10 mg PO PRN PRN (Reason: Constipation) oxycodone 10 mg Tablet 10 mg PO Q4H PRN (Reason: Pain) pantoprazole 40 mg tablet,delayed release (DR/EC) 40 mg PO DAILY insulin glargine [Lantus Solostar U-100 Insulin] 100 UNIT/1 ML insulin pen See Rx Instructions .ROUTE .COMPLEX Rx Instructions: 40 units in AM, 10 units HS Follow up/Referrals: Guillermina Hair MD [Primary Care Provider] - 1 Week Diet/Activity/Treatments Diet: Carb-consistent/Diabetic Visit Report/Discharge Packet Instructions: DI for Urinary Tract Infection (UTI) Discharge Data Primary Care Provider: Guillermina Hair Attending Provider: Dexter Zamora VTE Deep Vein Thrombosis/Pulmonary Embolism Present on Admission: No
[2022-01-17 22:27] LABS: Acinetobacter baumannii Not Detected (Not Detect); Enterobacteriaceae species Not Detected (Not Detect); Enterococcus species Not Detected (Not Detect); Listeria monocytogenes Not Detected (Not Detect); Methicillin-resistant gene Not Detected (Not Detect); Staphylococcus species Detected (Not Detect); Streptococcus agalactiae (Gr B Not Detected (Not Detect); Streptococcus pneumonia Not Detected (Not Detect); Streptococcus pyogenes (Gr A) Not Detected (Not Detect); Streptococcus species Not Detected (Not Detect)
[2022-01-17 22:28] LABS: Candida albicans Not Detected (Not Detect); Candida glabrata Not Detected (Not Detect); Candida krusei Not Detected (Not Detect); Candida parapsilosis Not Detected (Not Detect); Candida tropicalis Not Detected (Not Detect); E. coli Not Detected (Not Detect); Enterobacter cloacae complex Not Detected (Not Detect); Haemophilus influenzae Not Detected (Not Detect); Neisseria meningitidis Not Detected (Not Detect); Proteus species Not Detected (Not Detect); Pseudomonas aeruginosa Not Detected (Not Detect); Serratia marcescens Not Detected (Not Detect)
== END 2022-01-17 14:45 | disposition home or self-care (01) ==
LOC: ED 14:25 → AC 17:42
PROVIDERS: Admitting Provider Student in an Organized Health Care Education/Training Program; Emergency Provider Emergency Medicine; PCP Internal Medicine; Referring Provider Emergency Medicine; Visit Provider Student in an Organized Health Care Education/Training Program
DX: E11.621 Type 2 diabetes mellitus with foot ulcer (principal); L97.512 Non-pressure chronic ulcer of other part of right foot with fat layer exposed; R41.82 Altered mental status, unspecified; G25.0 Essential tremor; Z79.4 Long term (current) use of insulin; E11.40 Type 2 diabetes mellitus with diabetic neuropathy, unspecified; I10 Essential (primary) hypertension; N40.0 Benign prostatic hyperplasia without lower urinary tract symptoms; E66.01 Morbid (severe) obesity due to excess calories; Z68.42 Body mass index [BMI] 45.0-49.9, adult; R53.1 Weakness; G47.33 Obstructive sleep apnea (adult) (pediatric); Z20.822 Contact with and (suspected) exposure to COVID-19
CPT/HCPCS: 0241U; 36415; 71045; 73630; 80048; 80053; 81003; 81015; 82962; 83036; 83605; 83690; 83735; 84145; 84439; 84443; 85025; 85610; 85730; 87040; 87070; 87075; 87077; 87086; 87150; 87186; 87205; 87633; 93005; 94760; 96361; 96365; 96366; 96367; 96372; 97162; 99285; G0378; J1650; J1815; J2543

== ENCOUNTER → 2022-02-04 14:41 | Outpatient (CLI) | payer MEDICARE, MEDICAID, SELFPAY ==
[2022-01-16 17:44] VITALS: BMI 45.3
== END ==
PROVIDERS: PCP Internal Medicine; Referring Provider Podiatrist; Visit Provider Nurse Practitioner Family
DX: E11.621 Type 2 diabetes mellitus with foot ulcer (principal); L97.512 Non-pressure chronic ulcer of other part of right foot with fat layer exposed; E11.40 Type 2 diabetes mellitus with diabetic neuropathy, unspecified
CPT/HCPCS: 11042; 99213; 99214

== ENCOUNTER → 2022-02-16 09:28 | Outpatient (CLI) | payer MEDICARE, MEDICAID, SELFPAY ==
[2022-01-16 17:44] VITALS: BMI 45.3
== END ==
PROVIDERS: PCP Internal Medicine; Referring Provider Internal Medicine; Visit Provider Surgery
DX: E11.621 Type 2 diabetes mellitus with foot ulcer (principal); L97.512 Non-pressure chronic ulcer of other part of right foot with fat layer exposed; E11.40 Type 2 diabetes mellitus with diabetic neuropathy, unspecified; M14.671 Charcot's joint, right ankle and foot; L84 Corns and callosities
CPT/HCPCS: 11042

== ENCOUNTER → 2022-02-23 09:42 | Outpatient (CLI) | payer MEDICARE, MEDICAID, SELFPAY ==
[2022-01-16 17:44] VITALS: BMI 45.3
== END ==
PROVIDERS: PCP Internal Medicine; Referring Provider Registered Nurse; Visit Provider Surgery
DX: E11.621 Type 2 diabetes mellitus with foot ulcer (principal); L97.512 Non-pressure chronic ulcer of other part of right foot with fat layer exposed; E11.40 Type 2 diabetes mellitus with diabetic neuropathy, unspecified; L84 Corns and callosities
CPT/HCPCS: 97597

== ENCOUNTER → 2022-02-25 14:51 | Outpatient (CLI) | payer MEDICARE, MEDICAID, SELFPAY ==
[2022-01-16 17:44] VITALS: BMI 45.3
== END ==
PROVIDERS: PCP Internal Medicine; Referring Provider Internal Medicine; Visit Provider Surgery
DX: E11.621 Type 2 diabetes mellitus with foot ulcer (principal); L97.512 Non-pressure chronic ulcer of other part of right foot with fat layer exposed; L84 Corns and callosities
CPT/HCPCS: 29445; 99213

== ENCOUNTER → 2022-03-02 14:37 | Outpatient (CLI) | payer MEDICARE, MEDICAID, SELFPAY ==
[2022-01-16 17:44] VITALS: BMI 45.3
== END ==
PROVIDERS: PCP Internal Medicine; Referring Provider Internal Medicine; Visit Provider Surgery
DX: E11.621 Type 2 diabetes mellitus with foot ulcer (principal); L97.512 Non-pressure chronic ulcer of other part of right foot with fat layer exposed; E11.40 Type 2 diabetes mellitus with diabetic neuropathy, unspecified; L84 Corns and callosities; L85.9 Epidermal thickening, unspecified
CPT/HCPCS: 11055; 99212; 99213

== ENCOUNTER → 2022-03-09 12:57 | Outpatient (CLI) | payer MEDICARE, MEDICAID, SELFPAY ==
[2022-01-16 17:44] VITALS: BMI 45.3
== END ==
PROVIDERS: PCP Internal Medicine; Referring Provider Internal Medicine; Visit Provider Surgery
DX: E11.621 Type 2 diabetes mellitus with foot ulcer (principal); L97.512 Non-pressure chronic ulcer of other part of right foot with fat layer exposed; E11.40 Type 2 diabetes mellitus with diabetic neuropathy, unspecified; M14.671 Charcot's joint, right ankle and foot; L84 Corns and callosities
CPT/HCPCS: 99212

== ENCOUNTER → 2022-03-22 10:31 | Outpatient (CLI) | payer MEDICARE, MEDICAID, SELFPAY ==
[2022-01-16 17:44] VITALS: BMI 45.3
== END ==
PROVIDERS: PCP Internal Medicine; Referring Provider Internal Medicine; Visit Provider Surgery
DX: L97.512 Non-pressure chronic ulcer of other part of right foot with fat layer exposed (principal); E11.622 Type 2 diabetes mellitus with other skin ulcer; E11.40 Type 2 diabetes mellitus with diabetic neuropathy, unspecified; L84 Corns and callosities
CPT/HCPCS: 99212

== ENCOUNTER → 2022-05-11 07:20 | Outpatient (ROUT) | payer MEDICARE, MEDICAID, SELFPAY ==
[2022-01-16 17:44] VITALS: BMI 45.3
[2022-05-11 07:38] LABS: Add Manual Diff / Slide Review NO; Basophils Absolute Auto 100 /uL (0-100); Basophils Percent Auto 0.9 % (0-2); Eosinophils Absolute Auto 1000 /uL (0-450); Eosinophils Percent Auto 13.6 % (2-4); Hematocrit 28.2 % (41-53); Hemoglobin 9.6 g/dL (13.5-17.5); Lymphocytes Absolute Auto 2900 /uL (1100-4500); Lymphocytes Percent Auto 38.2 % (25-40); Mean Corpuscular HGB Conc 34.1 % (30-36); Mean Corpuscular Hemoglobin 30.6 PG (26-34); Mean Corpuscular Volume 89.8 fL (80-100); Monocytes Absolute Auto 500 /uL (0-900); Monocytes Percent Auto 6.3 % (3-14); Neutrophils Absolute Auto 3100 /uL (1500-7000); Platelet Count 158 X10^3/uL (150-400); Red Blood Cell Count 3.14 X10^6/uL (4.5-5.9); Red Cell Distribution Width 14.9 % (11.6-14.8); White Blood Cell Count 7.5 X10^3/uL (4.5-11.0)
[2022-05-11 08:03] LABS: Hemoglobin A1C% w Est Avg Glu 6.7 % (4.0-6.0)
[2022-05-11 08:04] LABS: Alanine Aminotransferase 22 IU/L (<50); Albumin 3.3 g/dL (3.5-5.0); Albumin Globulin Ratio 1.2 (1.0-2.8); Alkaline Phosphatase 70 U/L (38-126); Aspartate Aminotransferase 24 IU/L (17-59); BUN Creatinine Ratio 27.2 (6-22); Bilirubin Total 0.1 mg/dL (0.2-1.3); Blood Urea Nitrogen 22 mg/dL (9-20); Calcium 8.8 mg/dL (8.4-10.2); Carbon Dioxide 31 mmol/L (22-32); Chloride 98 mmol/L (98-107); Estimated Glomerular Filt Rate > 60 mL/min (>60); Globulin 2.7 g/dL (1.7-4.1); Glucose 162 mg/dL (80-110); HEMOLYSIS < 15 (0-50); Potassium 4.3 mmol/L (3.4-5.1); Sodium 136 mmol/L (137-145)
== END ==
PROVIDERS: PCP Internal Medicine; Visit Provider Internal Medicine
DX: E11.9 Type 2 diabetes mellitus without complications (principal); D64.9 Anemia, unspecified
CPT/HCPCS: 36415; 80053; 83036; 85025

== ENCOUNTER → 2022-06-29 07:23 | Outpatient (ROUT) | payer MEDICARE, MEDICAID, SELFPAY ==
[2022-01-16 17:44] VITALS: BMI 45.3
[2022-06-29 07:50] LABS: Iron 71 ug/dL (49-181)
[2022-06-29 07:56] LABS: Alanine Aminotransferase 23 IU/L (<50); Albumin 3.2 g/dL (3.5-5.0); Albumin Globulin Ratio 1.2 (1.0-2.8); Alkaline Phosphatase 69 U/L (38-126); Aspartate Aminotransferase 25 IU/L (17-59); BUN Creatinine Ratio 26.3 (6-22); Bilirubin Total 0.2 mg/dL (0.2-1.3); Blood Urea Nitrogen 20 mg/dL (9-20); Calcium 8.6 mg/dL (8.4-10.2); Carbon Dioxide 30 mmol/L (22-32); Chloride 100 mmol/L (98-107); Estimated Glomerular Filt Rate > 60 mL/min (>60); Globulin 2.6 g/dL (1.7-4.1); Glucose 168 mg/dL (80-110); HEMOLYSIS < 15 (0-50); Potassium 4.4 mmol/L (3.4-5.1); Sodium 136 mmol/L (137-145); Total Protein 5.8 g/dL (6.3-8.2)
[2022-06-29 08:06] LABS: Add Manual Diff / Slide Review NO; Basophils Absolute Auto 100 /uL (0-100); Eosinophils Absolute Auto 1000 /uL (0-450); Eosinophils Percent Auto 14.9 % (2-4); Hematocrit 28.4 % (41-53); Hemoglobin 9.9 g/dL (13.5-17.5); Lymphocytes Absolute Auto 2400 /uL (1100-4500); Lymphocytes Percent Auto 36.6 % (25-40); Mean Corpuscular Hemoglobin 31.6 PG (26-34); Mean Corpuscular Volume 90.2 fL (80-100); Monocytes Absolute Auto 400 /uL (0-900); Neutrophils Absolute Auto 2700 /uL (1500-7000); Neutrophils Percent Auto 41.5 % (50-75); Platelet Count 156 X10^3/uL (150-400); Red Blood Cell Count 3.15 X10^6/uL (4.5-5.9); Red Cell Distribution Width 14.6 % (11.6-14.8); White Blood Cell Count 6.6 X10^3/uL (4.5-11.0)
[2022-06-29 08:25] LABS: Prostate Specific Antigen 1.09 ng/mL (0.10-4.00); Thyroid Stimulating Hormone 0.723 uIU/mL (0.47-4.68)
[2022-06-29 08:44] LABS: Vitamin B12 290 pg/mL (239-931)
== END ==
PROVIDERS: Family Provider Nurse Practitioner Family; PCP Nurse Practitioner Family; Visit Provider Nurse Practitioner Family
DX: R20.2 Paresthesia of skin (principal); R35.0 Frequency of micturition; D64.9 Anemia, unspecified; E21.0 Primary hyperparathyroidism
CPT/HCPCS: 36415; 80053; 82607; 83540; 84153; 84443; 85025

== ENCOUNTER → 2022-08-03 09:39 | Outpatient (CLI) | payer MEDICARE, MEDICAID, SELFPAY ==
[2022-01-16 17:44] VITALS: BMI 45.3
== END ==
PROVIDERS: Family Provider Nurse Practitioner Family; PCP Nurse Practitioner Family; Referring Provider Podiatrist; Visit Provider Surgery
DX: E11.621 Type 2 diabetes mellitus with foot ulcer (principal); L97.512 Non-pressure chronic ulcer of other part of right foot with fat layer exposed; L97.511 Non-pressure chronic ulcer of other part of right foot limited to breakdown of skin; E11.42 Type 2 diabetes mellitus with diabetic polyneuropathy; M14.671 Charcot's joint, right ankle and foot; L97.519 Non-pressure chronic ulcer of other part of right foot with unspecified severity; M20.11 Hallux valgus (acquired), right foot; M19.071 Primary osteoarthritis, right ankle and foot; Z89.421 Acquired absence of other right toe(s)
CPT/HCPCS: 11042; 73630; 97602; 99214

== ENCOUNTER → 2022-08-03 14:12 | Outpatient (CLI) | payer MEDICARE, MEDICAID, SELFPAY ==
[2022-01-16 17:44] VITALS: BMI 45.3
--- NOTE | 2022-08-03 14:14 | DI.RAD.S_ITS ---
PROCEDURE: XR FOOT RT MIN 3V INDICATIONS: diabetic foot ulcer plantar surface of right foot TECHNIQUE: 3 views of the foot were acquired. COMPARISON: [facility], CR, XR FOOT RT MIN 3V, 01/16/2022, 16:00. FINDINGS: Bones: There is been amputation of the 4th toe at the metacarpophalangeal joint. There is varus angulation of the 1st metatarsal with compensatory valgus angulation of the 1st proximal phalanx reflecting hallux valgus. Degenerative joint space narrowing and subchondral sclerosis noted 1st metatarsophalangeal joint. Soft tissues: No tibiotalar joint effusion. Achilles tendon appears normal. IMPRESSION: Stable right foot radiographs. No evidence of lytic lesion Hallux valgus, amputated 4th toe, 1st MTP osteoarthritis Approved by: Wil Whitfield M.D. on 08/03/2022 at 18:19
== END ==
PROVIDERS: Family Provider Nurse Practitioner Family; PCP Nurse Practitioner Family; Referring Provider Surgery; Visit Provider Surgery
DX: E11.621 Type 2 diabetes mellitus with foot ulcer (principal); L97.519 Non-pressure chronic ulcer of other part of right foot with unspecified severity; M19.071 Primary osteoarthritis, right ankle and foot; M20.11 Hallux valgus (acquired), right foot; Z89.421 Acquired absence of other right toe(s)
CPT/HCPCS: 73630

== ENCOUNTER → 2022-08-10 09:55 | Outpatient (CLI) | payer MEDICARE, MEDICAID, SELFPAY ==
[2022-01-16 17:44] VITALS: BMI 45.3
== END ==
PROVIDERS: Family Provider Nurse Practitioner Family; PCP Nurse Practitioner Family; Referring Provider Podiatrist; Visit Provider Surgery
DX: E11.621 Type 2 diabetes mellitus with foot ulcer (principal); L97.512 Non-pressure chronic ulcer of other part of right foot with fat layer exposed; L84 Corns and callosities; Z89.421 Acquired absence of other right toe(s)
CPT/HCPCS: 11042

== ENCOUNTER → 2022-08-24 09:41 | Outpatient (CLI) | payer MEDICARE, MEDICAID, SELFPAY ==
[2022-01-16 17:44] VITALS: BMI 45.3
== END ==
PROVIDERS: Family Provider Nurse Practitioner Family; PCP Nurse Practitioner Family; Referring Provider Podiatrist; Visit Provider Surgery
DX: E11.621 Type 2 diabetes mellitus with foot ulcer (principal); L97.512 Non-pressure chronic ulcer of other part of right foot with fat layer exposed; L84 Corns and callosities; E11.42 Type 2 diabetes mellitus with diabetic polyneuropathy
CPT/HCPCS: 11042; 99212; 99213

== ENCOUNTER 2022-08-30 14:00 | Outpatient (RCR) | payer MEDICARE, MEDICAID, SELFPAY ==
[2022-01-16 17:44] VITALS: BMI 45.3
--- NOTE | 2022-07-01 16:37 | PT.OIE ---
Current Diagnoses Pain in left hand (07/01/22) Paresthesia of skin (07/01/22) Past Medical History (Last Updated 01/16/22 @ 21:03 [facility] Cellulitis (02/27/17) Chronic ulcer of right foot limited to breakdown of skin Closed non-physeal fracture of proximal phalanx of great toe with malunion Depression Diabetes Essential tremor History of non-ST elevation myocardial infarction (NSTEMI) Hypertension Insulin dependent diabetes mellitus Morbid obesity MRSA (methicillin resistant Staphylococcus aureus) (02/27/17) AGATHA treated with BiPAP Peripheral autonomic neuropathy Peripheral vascular disease Polypharmacy Sedentary lifestyle Sepsis (02/27/17) Severe muscle deconditioning Sleep apnea Thrombocytopenia Toe amputation status Visit for wound care Past Surgical History (Last Updated 01/16/22 @ 21:04 by [facility] History of amputation of lesser toe of right foot Visit Care Team Role Provider Type Guillermina Hair MD Physician Specialty: Medical Address: [address], [address] Email: BERRY Singletary Attending Provider Non-Staff Family Provider Primary Care Provider Referring Provider Specialty: Medical Address: [address] [place] [address], [address] Email: Physical Therapy Initial Evaluation PT-OP-A Visit Information Start: 06/25/22 18:08 Freq: Status: Active Protocol: Document 07/01/22 10:33 LRN (Rec: 07/01/22 12:17 LRN [id number]) Out-Patient Physical Therapy Visit Information Visit Information Visit Type Initial Evaluation Visit Start Time 10:33 Visit Stop Time 11:22 Total Visit Minutes 49 Visit Number 1 Evaluation Information Evaluation Date 07/01/22 Precautions Precautions Per PMH in system: Morbid Obesity, IDDM (pt reports type 2 diabetes), PVD, peripheral autonomic enuropathy, Toe amputation, Ulcer R foot, non- ST elevation myocardial infarction (NSTEMI), Fall history 12/2021 at home early in morning, slid off bed. PT-OP-B Current Condition Start: 06/25/22 18:08 Freq: Status: Active Protocol: Document 07/01/22 10:33 LRN (Rec: 07/01/22 12:17 LRN [id number]) Current Condition History of Current Condition Onset Date 2 yrs ago Current Complaints Numbness in L hand on first waking in bed. History of Current Condition Morning, after sleeping on R side, has numbness in the L hand when waking up in the morning that can turn into excruciating pain. Has tried different arm positions, but found if he draps L arm across the body and dangles it off the bed can sense an immediate relief of numbness and pain with linging residual pain. Notes his head may be very slighly bent to right and face forward. After getting up the numbness goes away. In studio apt uses walker when first getting out of bed to use bathroom. Normally walks without assistive. Using electric wheelchair while in therapy due to R hip pain with prolonged walking. Future Testing and Treatments Planned Nerve conductivity shows pinched nerve in L wrist and neck. Has been diagnosed with neuropathy. Developmental History Developmental History Back pain spine related. In electric wheelchair, but normally uses a walker for balance issues due to severe diabetic neuropathy. Treatment Goals Patient/Caregiver Goals Pt goal is to eliminate L hand numbness first in the morning . Pt agrees to an independent HEP of hand/UE/neck ex's. Current Functional Impairments (Reported) Functional Limitations- ADL's Lives at [facility]. Functional Limitations- Mobility/Gait Pt drives, Can walk w/o assistive device. Walks with a FWW first in the morning and uses Electric W/C for extended walking (75' or more) . Personal Factors Other Personal Factors That May Effect IDDM, Neuropathy diabetic, Therapy/Recovery ulcer R foot, partially controlled HBP, history of back/R hip pain. PT-OP-C Subjective Start: 06/25/22 18:08 Freq: Status: Active Protocol: Document 07/01/22 10:33 LRN (Rec: 07/01/22 12:17 LRN [id number]) Patient Questionnaires Quick Dash- Upper Extremity Quick Dash UE Score 13.63 Quick Dash UE Impairment 1 to 19% Impaired (Score 1-19) OP-PT Pain Assessment Pain Assessment Grid Paper Pain Assessment Grid Completed Yes Location L hand Pain Location Details L hand numbness and tingling, Pain in palm of hand Intensity 6 Scale Used Numeric (0 - 10) Description Sharp Pain Duration In AM PT-OP-H Neuro Start: 06/25/22 18:08 Freq: Status: Active Protocol: Document 07/01/22 10:33 LRN (Rec: 07/01/22 12:17 LRN [id number]) Sensation Evaluation Gross Sensation Gross Sensation WNL Coordination Evaluation Upper Extremity Tests Right Finger to Nose Test Minimal Impairment Left Finger to Nose Test Normal Performance Deep Tendon Reflex & Clonus Assessment Deep Tendon Reflex Right Tricep Deep Tendon Reflex 0 Absent Right Bicep Deep Tendon Reflex 0 Absent Left Tricep Deep Tendon Reflex 0 Absent Left Bicep Deep Tendon Reflex 0 Absent PT-OP-J Posture/Palpation/Skin Start: 06/25/22 18:08 Freq: Status: Active Protocol: Document 07/01/22 10:33 LRN (Rec: 07/01/22 12:17 LRN [id number]) Posture Evaluation Position Sitting Head/C-Spine Posture Forward Head T-Spine Posture Increased Kyphosis L-Spine Posture Flattened Shoulder Posture (L) Elevated Comments Posture Comments 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 Palpation Assessment Location L hand Palpation Location L hand thumb-index interossei Palpation Details Atrophy PT-OP-K Range of Motion Start: 06/25/22 18:08 Freq: Status: Active Protocol: Document 07/01/22 10:33 LRN (Rec: 07/01/22 12:17 LRN [id number]) Wrist Goniometric Range of Motion Wrist Right Flexion Active (degrees) 75 Extension Active (degrees) 65 Ulnar Deviation Active (degrees) 28 Radial Deviation Active (degrees) 15 Left Flexion Active (degrees) 80 Extension Active (degrees) 65 Ulnar Deviation Active (degrees) 30 Radial Deviation Active (degrees) 30 PT-OP-L Special Tests Start: 06/25/22 18:08 Freq: Status: Active Protocol: Document 07/01/22 10:33 LRN (Rec: 07/01/22 12:17 LRN [id number]) Special Tests Cervical Spine Special Tests Spurling's Test Test Results - Foraminal Compression Test Results - Neural Special Tests- Upper Body Median Nerve Tension Test Results - left Radial Nerve Tension Test Results - left Ulnar Nerve Tension Test Results + left Comments Tightness in L UE PT-OP-M Strength Start: 06/25/22 18:08 Freq: Status: Active Protocol: Document 07/01/22 10:33 LRN (Rec: 07/01/22 12:17 LRN [id number]) Cervical Spine Strength Cervical Spine Manual Muscle Testing Testing Position Sitting Comments Generally 5/5 Wrist Strength Wrist Manual Muscle Testing Right Comments Generally 5/5 Left Comments Generally 5/5 Hand Delivery Nurse/Pinch Strength Hand Dominance Hand Dominance Right Hand Strength Left Comments Delivery Nurse strength slightly less than R on squeeze test. PT-OP-Q Treatments Start: 06/25/22 18:08 Freq: Status: Active Protocol: Document 07/01/22 10:33 LRN (Rec: 07/01/22 12:17 LRN [id number]) Self-Care/Home Management Treatment Education Patient Education Pain Management Other Education Discussed results of evaluation, goals, and plan of care (POC). Pt agreeable to goals and POC. ' Dicussed nighttime positioning of head/shoulders and brief discussed L UE positioning. Discussed safe use of contrast bath hot/cold treatment at pt home. Activities Self-Care/Home Management Activities Issued & reviewed contrast bath home treatment. PT-OP-T Assessment and Plan Start: 06/25/22 18:08 Freq: Status: Active Protocol: Document 07/01/22 10:33 LRN (Rec: 07/01/22 12:17 LRN [id number]) Physical Therapy Assessment Rehab Potential Rehabilitation Potential Good Evaluation Complexity Number of Personal Factors/Comorbidities 3 or More Number of Body Systems Impaired 3 Clinical Presentation at Evaluation Stable Impairments Impairments Pain,Posture,Sensation Other Impairments Nighttime positioning dysfunction. Goals Two Impairment L hand numbness first in the morning Short Term Goal (STG) Pt educated in proper sleeping postures. Forming Yardage Control Operator Goal (LTG) Pt goal is to eliminate L hand numbness first in the morning . One Impairment Lacks appriate self care HEP. Short Term Goal (STG) Nighttime splint for L wrist if + Phalen's Test or reverse Phalen's. Residential Goal (LTG) Pt agrees to and independent HEP of hand/UE/neck ex's. Assessment Summary Assessment Pt is a 66 yo male who presents with reports of numbness and tingling in the L hand first thing in the morning that resolves with dangling of his arm in front of him over the edge of his bed. It appears he has a postural dysfunction during his nighttime sleep, but I was not able to elicit L hand numbness with testing of the cervical spine. He did demonstrate Ulnar nerve tension on provocation test. I did not assess for carpel tunnel today, but will perform provocation tests at the wrist and elbow at his next appointment. His mobility of the wrist and hand is normal. Intrinsic ms strength in his L hand is present with atrophy of the muscle between thumb and index finger (ulnar n). He does exhibit a notable thoracic kyphosis and forward head; therefore it is probable that poor posturing during the night is involved. Further ongoing assessment will be needed to identify the extent the L wrist and neural involvement. The pt will benefit from skilled physical therapy to achieve the above stated goals. Physical Therapy Plan Frequency and Duration Frequency of Treatment 2x/Week Plan of Care Start Date 07/01/22 Plan of Care End Date 08/30/22 Therapeutic Interventions Therapeutic Interventions Home Exercise Program,Joint Mobilizations,Manual Therapy, Neuromuscular Re-education, Patient/Caregiver Education, Self-Care/Home Management,Soft Tissue Mobilization, Therapeutic Activities, Therapeutic Exercises Modalities Cold Pack/Ice Massage,Hot Packs Next Visit Focus/Plan Next Note Type Treatment Note Next Visit Plan Assess for Carpel tunnel symptoms (Phalen's and reverse Phalen's, Guyon's Canal), educate pt on best sleeping posture for nighttime. Initiate HEP: C/S ROM to improve posture, thoracic ext ex, RC strengthening. Modalities of MH/ice as needed for hand symptoms.
--- NOTE | 2022-07-01 16:37 | PT.OPPOC ---
Physical, Occupational & Speech Therapy At [facility] Current Diagnoses Pain in left hand (07/01/22) Paresthesia of skin (07/01/22) Visit Care Team Role Provider Type Guillermina Hair MD Physician Specialty: Medical Address: [address] [address], [place], [address] Email: BERRY Singletary Attending Provider Non-Staff Family Provider Primary Care Provider Referring Provider Specialty: Medical Address: [address] [place] [address], [id number] Email: Plan Of Care PT-OP-T Assessment and Plan Start: 06/25/22 18:08 Freq: Status: Active Protocol: Document 07/01/22 10:33 LRN (Rec: 07/01/22 12:17 LRN [id number]) Physical Therapy Assessment Rehab Potential Rehabilitation Potential Good Evaluation Complexity Number of Personal Factors/Comorbidities 3 or More Number of Body Systems Impaired 3 Clinical Presentation at Evaluation Stable Impairments Impairments Pain,Posture,Sensation Other Impairments Nighttime positioning dysfunction. Goals Two Impairment L hand numbness first in the morning Short Term Goal (STG) Pt educated in proper sleeping postures. Usp Goal (LTG) Pt goal is to eliminate L hand numbness first in the morning . One Impairment Lacks appriate self care HEP. Short Term Goal (STG) Nighttime splint for L wrist if + Phalen's Test or reverse Phalen's. Usp Goal (LTG) Pt agrees to and independent HEP of hand/UE/neck ex's. Assessment Summary Assessment Pt is a 66 yo male who presents with reports of numbness and tingling in the L hand first thing in the morning that resolves with dangling of his arm in front of him over the edge of his bed. It appears he has a postural dysfunction during his nighttime sleep, but I was not able to elicit L hand numbness with testing of the cervical spine. He did demonstrate Ulnar nerve tension on provocation test. I did not assess for carpel tunnel today, but will perform provocation tests at the wrist and elbow at his next appointment. His mobility of the wrist and hand is normal. Intrinsic ms strength in his L hand is present with atrophy of the muscle between thumb and index finger (ulnar n). He does exhibit a notable thoracic kyphosis and forward head; therefore it is probable that poor posturing during the night is involved. Further ongoing assessment will be needed to identify the extent the L wrist and neural involvement. The pt will benefit from skilled physical therapy to achieve the above stated goals. Physical Therapy Plan Frequency and Duration Frequency of Treatment 2x/Week Plan of Care Start Date 07/01/22 Plan of Care End Date 08/30/22 Therapeutic Interventions Therapeutic Interventions Home Exercise Program,Joint Mobilizations,Manual Therapy, Neuromuscular Re-education, Patient/Caregiver Education, Self-Care/Home Management,Soft Tissue Mobilization, Therapeutic Activities, Therapeutic Exercises Modalities Cold Pack/Ice Massage,Hot Packs Next Visit Focus/Plan Next Note Type Treatment Note Next Visit Plan Assess for Carpel tunnel symptoms (Phalen's and reverse Phalen's, Guyon's Canal), educate pt on best sleeping posture for nighttime. Initiate HEP: C/S ROM to improve posture, thoracic ext ex, RC strengthening. Modalities of MH/ice as needed for hand symptoms. Plan of Care Dates Plan of Care Start Date 07/01/22 Plan of Care End Date 08/30/22 Electronically Signed by: Susan Koehler, PT 07/01/22 [id number] If you are in agreement with this Plan of Care, please return a signed and dated copy. I have reviewed this Plan of Care and certify that the skilled therapy services above are required to meet the patient?s needs. Physician Signature Date Printed Name and Credentials Clinical Instructor Signature Printed Name and Credentials
--- NOTE | 2022-07-01 16:40 | PT.OPPOC ---
Physical, Occupational & Speech Therapy At [facility] Current Diagnoses Postural kyphosis, thoracic region (07/08/22) Muscle weakness (generalized) (07/08/22) Pain in left hand (07/08/22) Paresthesia of skin (07/08/22) Visit Care Team Role Provider Type Guillermina Hair MD Physician Specialty: Medical Address: [address], [address] Email: BERRY Singletary Attending Provider Non-Staff Family Provider Primary Care Provider Referring Provider Specialty: Medical Address: [address] [place] [address], [address] Email: Plan Of Care PT-OP-T Assessment and Plan Start: 06/25/22 18:08 Freq: Status: Active Protocol: Document 07/01/22 10:33 LRN (Rec: 07/01/22 12:17 LRN [id number]) Physical Therapy Assessment Rehab Potential Rehabilitation Potential Good Evaluation Complexity Number of Personal Factors/Comorbidities 3 or More Number of Body Systems Impaired 3 Clinical Presentation at Evaluation Stable Impairments Impairments Pain,Posture,Sensation Other Impairments Nighttime positioning dysfunction. Goals Two Impairment L hand numbness first in the morning Short Term Goal (STG) Pt educated in proper sleeping postures. STG Duration 07/15/22 Binder Roller Goal (LTG) Pt goal is to eliminate L hand numbness first in the morning . LTG Duration 08/30/22 One Impairment Lacks appriate self care HEP. Short Term Goal (STG) Nighttime splint for L wrist if + Phalen's Test or reverse Phalen's. STG Duration 08/05/22 [facility] Goal (LTG) Pt agrees to and independent HEP of hand/UE/neck ex's. LTG Duration 08/30/22 Assessment Summary Assessment Pt is a 66 yo male who presents with reports of numbness and tingling in the L hand first thing in the morning that resolves with dangling of his arm in front of him over the edge of his bed. It appears he has a postural dysfunction during his nighttime sleep, but I was not able to elicit L hand numbness with testing of the cervical spine. He did demonstrate Ulnar nerve tension on provocation test. I did not assess for carpel tunnel today, but will perform provocation tests at the wrist and elbow at his next appointment. His mobility of the wrist and hand is normal. Intrinsic ms strength in his L hand is present with atrophy of the muscle between thumb and index finger (ulnar n). He does exhibit a notable thoracic kyphosis and forward head; therefore it is probable that poor posturing during the night is involved. Further ongoing assessment will be needed to identify the extent the L wrist and neural involvement. The pt will benefit from skilled physical therapy to achieve the above stated goals. Physical Therapy Plan Frequency and Duration Frequency of Treatment 2x/Week Plan of Care Start Date 07/01/22 Plan of Care End Date 08/30/22 Therapeutic Interventions Therapeutic Interventions Home Exercise Program,Joint Mobilizations,Manual Therapy, Neuromuscular Re-education, Patient/Caregiver Education, Self-Care/Home Management,Soft Tissue Mobilization, Therapeutic Activities, Therapeutic Exercises Modalities Cold Pack/Ice Massage,Hot Packs Next Visit Focus/Plan Next Note Type Treatment Note Next Visit Plan Assess for Carpel tunnel symptoms (Phalen's and reverse Phalen's, Guyon's Canal), educate pt on best sleeping posture for nighttime. Initiate HEP: C/S ROM to improve posture, thoracic ext ex, RC strengthening. Modalities of MH/ice as needed for hand symptoms. Plan of Care Dates Plan of Care Start Date 07/01/22 Plan of Care End Date 08/30/22 Electronically Signed by: Susan Koehler, PT 07/08/22 [id number] If you are in agreement with this Plan of Care, please return a signed and dated copy. I have reviewed this Plan of Care and certify that the skilled therapy services above are required to meet the patient?s needs. Physician Signature Date Printed Name and Credentials Clinical Instructor Signature Printed Name and Credentials
--- NOTE | 2022-07-08 15:01 | PT.OTN ---
Current Diagnoses Postural kyphosis, thoracic region (07/08/22) Muscle weakness (generalized) (07/08/22) Pain in left hand (07/08/22) Paresthesia of skin (07/08/22) Physical Therapy Treatment Note PT-OP-A Visit Information Start: 06/25/22 18:08 Freq: Status: Active Protocol: Document 07/08/22 13:22 LRN (Rec: 07/08/22 14:59 LRN [id number]) Out-Patient Physical Therapy Visit Information Visit Information Visit Type Treatment Note Visit Start Time 13:22 Visit Stop Time 14:02 Total Visit Minutes 41 Visit Number 2 Evaluation Information Evaluation Date 07/01/22 Precautions Precautions Per PMH in system: Morbid Obesity, IDDM (pt reports type 2 diabetes), PVD, peripheral autonomic enuropathy, Toe amputation, Ulcer R foot, non- ST elevation myocardial infarction (NSTEMI), Fall history 12/2021 at home early in morning, slid off bed. PT-OP-B Current Condition Start: 06/25/22 18:08 Freq: Status: Active Protocol: Document 07/01/22 10:33 LRN (Rec: 07/01/22 12:17 LRN [id number]) Current Condition History of Current Condition Onset Date 2 yrs ago Current Complaints Numbness in L hand on first waking in bed. History of Current Condition Morning, after sleeping on R side, has numbness in the L hand when waking up in the morning that can turn into excruciating pain. Has tried different arm positions, but found if he draps L arm across the body and dangles it off the bed can sense an immediate relief of numbness and pain with linging residual pain. Notes his head may be very slighly bent to right and face forward. After getting up the numbness goes away. In studio apt uses walker when first getting out of bed to use bathroom. Normally walks without assistive. Using electric wheelchair while in therapy due to R hip pain with prolonged walking. Future Testing and Treatments Planned Nerve conductivity shows pinched nerve in L wrist and neck. Has been diagnosed with neuropathy. Developmental History Developmental History Back pain spine related. In electric wheelchair, but normally uses a walker for balance issues due to severe diabetic neuropathy. Treatment Goals Patient/Caregiver Goals Pt goal is to eliminate L hand numbness first in the morning . Pt agrees to an independent HEP of hand/UE/neck ex's. Current Functional Impairments (Reported) Functional Limitations- ADL's Lives at [facility] living. Functional Limitations- Mobility/Gait Pt drives, Can walk w/o assistive device. Walks with a FWW first in the morning and uses Electric W/C for extended walking (75' or more) . Personal Factors Other Personal Factors That May Effect IDDM, Neuropathy diabetic, Therapy/Recovery ulcer R foot, partially controlled HBP, history of back/R hip pain. PT-OP-C Subjective Start: 06/25/22 18:08 Freq: Status: Active Protocol: Document 07/08/22 13:22 LRN (Rec: 07/08/22 14:59 LRN [id number]) OP-PT Subjective Patient Comments Patient Comments Pt reports L hand numb only when waking up or if leaning over onto the L elbow the hand goes numb, but when sitting up it goes away. No severe pain in the L hand lately. PT-OP-H Neuro Start: 06/25/22 18:08 Freq: Status: Active Protocol: Document 07/01/22 10:33 LRN (Rec: 07/01/22 12:17 LRN [id number]) Sensation Evaluation Gross Sensation Gross Sensation WNL Coordination Evaluation Upper Extremity Tests Right Finger to Nose Test Minimal Impairment Left Finger to Nose Test Normal Performance Deep Tendon Reflex & Clonus Assessment Deep Tendon Reflex Right Tricep Deep Tendon Reflex 0 Absent Right Bicep Deep Tendon Reflex 0 Absent Left Tricep Deep Tendon Reflex 0 Absent Left Bicep Deep Tendon Reflex 0 Absent PT-OP-J Posture/Palpation/Skin Start: 06/25/22 18:08 Freq: Status: Active Protocol: Document 07/01/22 10:33 LRN (Rec: 07/01/22 12:17 LRN [id number]) Posture Evaluation Position Sitting Head/C-Spine Posture Forward Head T-Spine Posture Increased Kyphosis L-Spine Posture Flattened Shoulder Posture (L) Elevated Comments Posture Comments 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 Palpation Assessment Location L hand Palpation Location L hand thumb-index interossei Palpation Details Atrophy PT-OP-K Range of Motion Start: 06/25/22 18:08 Freq: Status: Active Protocol: Document 07/01/22 10:33 LRN (Rec: 07/01/22 12:17 LRN [id number]) Wrist Goniometric Range of Motion Wrist Right Flexion Active (degrees) 75 Extension Active (degrees) 65 Ulnar Deviation Active (degrees) 28 Radial Deviation Active (degrees) 15 Left Flexion Active (degrees) 80 Extension Active (degrees) 65 Ulnar Deviation Active (degrees) 30 Radial Deviation Active (degrees) 30 PT-OP-L Special Tests Start: 06/25/22 18:08 Freq: Status: Active Protocol: Document 07/08/22 13:22 LRN (Rec: 07/08/22 14:59 LRN [id number]) Special Tests Neural Special Tests- Upper Body Reverse Phalen's Test Results - L wrist Phalen's Test Results - L wrist Tinel Sign Test Results - L wrist Ulnar Nerve Tension Test Results + left Comments Tightness in L UE PT-OP-M Strength Start: 06/25/22 18:08 Freq: Status: Active Protocol: Document 07/01/22 10:33 LRN (Rec: 07/01/22 12:17 LRN [id number]) Cervical Spine Strength Cervical Spine Manual Muscle Testing Testing Position Sitting Comments Generally 5/5 Wrist Strength Wrist Manual Muscle Testing Right Comments Generally 5/5 Left Comments Generally 5/5 Hand Credit Administration Officer/Pinch Strength Hand Dominance Hand Dominance Right Hand Strength Left Comments Credit Administration Officer strength slightly less than R on squeeze test. PT-OP-Q Treatments Start: 06/25/22 18:08 Freq: Status: Active Protocol: Document 07/08/22 13:22 LRN (Rec: 07/08/22 14:59 LRN [id number]) Therapeutic Exercises Sidelying Exercises Shoulder Elevation/Depression Sidelying Exercise Name Active Shoulder Elevation/ Depression in nighttime position on wedge Side bilateral Reps/Minutes 15x Sitting Exercises C. AROM Sitting Exercise Name Active C. Rotation, SB, & Neutral>Extension Side bilateral Reps/Minutes 5-10 reps each Comments Tight L UT Shoulder Elevation/Depression Sitting Exercise Name Active Shoulder Elevation/ Depression Side bilateral Reps/Minutes 15x 2 Therapeutic Activity Therapeutic Activity Positional training for sleeping Name Positional sleeping position training Reps/Minutes 27' Comments Many different L arm positions tried and education in use of pillows to support arm at nighttime. Discussed at length neutral positioning of the head/neck/shoulders. Self-Care/Home Management Treatment Education Patient Education Home Exercise Program Activities Self-Care/Home Management Activities Issued & reviewed HEP: active stretch for C. rot, SB and supine michelle neck ext. PT-OP-T Assessment and Plan Start: 06/25/22 18:08 Freq: Status: Active Protocol: Document 07/08/22 13:22 LRN (Rec: 07/08/22 14:59 LRN [id number]) Physical Therapy Assessment Goals Two Impairment L hand numbness first in the morning Short Term Goal (STG) Pt educated in proper sleeping postures. 07/08/22: Pt education in best sidelie sleeping posture on wedge, using pillows and supports to support L UE. STG Duration 07/15/22 Sail Repairer Goal (LTG) Pt goal is to eliminate L hand numbness first in the morning . LTG Duration 08/30/22 One Impairment Lacks appriate self care HEP. Short Term Goal (STG) Nighttime splint for L wrist if + Phalen's Test or reverse Phalen's. 07/08/22: - Phalens' and Reverse Phalen's Test. STG Duration 08/05/22 (07/08/22: GOAL not appropriate due to -Test results) Sail Repairer Goal (LTG) Pt agrees to and independent HEP of hand/UE/neck ex's. 07/08/22: HEP: C. AROM stretch of C. rot, SB, michelle ext. LTG Duration 08/30/22 Progress Towards Goals Progress Comments Progressed HEP. Assessment Summary Assessment Pt presents with numbness and tingling in the L hand first thing in the morning and occasionally when leaning onto L elbow. Dangling of his arm relieves the numbness/ tingling. The pt is negative for L wrist carpal tunnel ( negative Phalen's, Reverse Phalen's and Tinel Test). Much time was spent educating pt in ways to modify his nighttime sleeping position while in sldelie on wedge. Physical Therapy Plan Frequency and Duration Frequency of Treatment 2x/Week Plan of Care Start Date 07/01/22 Plan of Care End Date 08/30/22 Next Visit Focus/Plan Next Note Type Treatment Note Next Visit Plan Review: C/S ROM to improve posture, Add: C/s stabilization strengthening, thoracic ext ex, & RC strengthening. Modalities of MH/ice as needed for hand symptoms.
--- NOTE | 2022-07-12 14:56 | PT.OTN ---
Current Diagnoses Postural kyphosis, thoracic region (07/12/22) Muscle weakness (generalized) (07/12/22) Pain in left hand (07/12/22) Paresthesia of skin (07/12/22) Physical Therapy Treatment Note PT-OP-A Visit Information Start: 06/25/22 18:08 Freq: Status: Active Protocol: Document 07/12/22 14:09 LRN (Rec: 07/12/22 14:54 LRN [id number]) Out-Patient Physical Therapy Visit Information Visit Information Visit Type Treatment Note Visit Start Time 14:09 Visit Stop Time 14:47 Total Visit Minutes 38 Visit Number 3 Evaluation Information Evaluation Date 07/01/22 Precautions Precautions Per PMH in system: Morbid Obesity, IDDM (pt reports type 2 diabetes), PVD, peripheral autonomic enuropathy, Toe amputation, Ulcer R foot, non- ST elevation myocardial infarction (NSTEMI), Fall history 12/2021 at home early in morning, slid off bed. PT-OP-B Current Condition Start: 06/25/22 18:08 Freq: Status: Active Protocol: Document 07/01/22 10:33 LRN (Rec: 07/01/22 12:17 LRN [id number]) Current Condition History of Current Condition Onset Date 2 yrs ago Current Complaints Numbness in L hand on first waking in bed. History of Current Condition Morning, after sleeping on R side, has numbness in the L hand when waking up in the morning that can turn into excruciating pain. Has tried different arm positions, but found if he draps L arm across the body and dangles it off the bed can sense an immediate relief of numbness and pain with linging residual pain. Notes his head may be very slighly bent to right and face forward. After getting up the numbness goes away. In studio apt uses walker when first getting out of bed to use bathroom. Normally walks without assistive. Using electric wheelchair while in therapy due to R hip pain with prolonged walking. Future Testing and Treatments Planned Nerve conductivity shows pinched nerve in L wrist and neck. Has been diagnosed with neuropathy. Developmental History Developmental History Back pain spine related. In electric wheelchair, but normally uses a walker for balance issues due to severe diabetic neuropathy. Treatment Goals Patient/Caregiver Goals Pt goal is to eliminate L hand numbness first in the morning . Pt agrees to an independent HEP of hand/UE/neck ex's. Current Functional Impairments (Reported) Functional Limitations- ADL's Lives at [facility] living. Functional Limitations- Mobility/Gait Pt drives, Can walk w/o assistive device. Walks with a FWW first in the morning and uses Electric W/C for extended walking (75' or more) . Personal Factors Other Personal Factors That May Effect IDDM, Neuropathy diabetic, Therapy/Recovery ulcer R foot, partially controlled HBP, history of back/R hip pain. PT-OP-C Subjective Start: 06/25/22 18:08 Freq: Status: Active Protocol: Document 07/12/22 14:09 LRN (Rec: 07/12/22 14:54 LRN [id number]) OP-PT Subjective Patient Comments Patient Comments This morning L hand was numb. sfilatino tells him he is in the same position each morning , on R side with hand along side the L leg. Did not notice head position. PT-OP-H Neuro Start: 06/25/22 18:08 Freq: Status: Active Protocol: Document 07/01/22 10:33 LRN (Rec: 07/01/22 12:17 LRN [id number]) Sensation Evaluation Gross Sensation Gross Sensation WNL Coordination Evaluation Upper Extremity Tests Right Finger to Nose Test Minimal Impairment Left Finger to Nose Test Normal Performance Deep Tendon Reflex & Clonus Assessment Deep Tendon Reflex Right Tricep Deep Tendon Reflex 0 Absent Right Bicep Deep Tendon Reflex 0 Absent Left Tricep Deep Tendon Reflex 0 Absent Left Bicep Deep Tendon Reflex 0 Absent PT-OP-J Posture/Palpation/Skin Start: 06/25/22 18:08 Freq: Status: Active Protocol: Document 07/01/22 10:33 LRN (Rec: 07/01/22 12:17 LRN [id number]) Posture Evaluation Position Sitting Head/C-Spine Posture Forward Head T-Spine Posture Increased Kyphosis L-Spine Posture Flattened Shoulder Posture (L) Elevated Comments Posture Comments 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 Palpation Assessment Location L hand Palpation Location L hand thumb-index interossei Palpation Details Atrophy PT-OP-K Range of Motion Start: 06/25/22 18:08 Freq: Status: Active Protocol: Document 07/01/22 10:33 LRN (Rec: 07/01/22 12:17 LRN [id number]) Wrist Goniometric Range of Motion Wrist Right Flexion Active (degrees) 75 Extension Active (degrees) 65 Ulnar Deviation Active (degrees) 28 Radial Deviation Active (degrees) 15 Left Flexion Active (degrees) 80 Extension Active (degrees) 65 Ulnar Deviation Active (degrees) 30 Radial Deviation Active (degrees) 30 PT-OP-L Special Tests Start: 06/25/22 18:08 Freq: Status: Active Protocol: Document 07/08/22 13:22 LRN (Rec: 07/08/22 14:59 LRN [id number]) Special Tests Neural Special Tests- Upper Body Reverse Phalen's Test Results - L wrist Phalen's Test Results - L wrist Tinel Sign Test Results - L wrist Ulnar Nerve Tension Test Results + left Comments Tightness in L UE PT-OP-M Strength Start: 06/25/22 18:08 Freq: Status: Active Protocol: Document 07/01/22 10:33 LRN (Rec: 07/01/22 12:17 LRN [id number]) Cervical Spine Strength Cervical Spine Manual Muscle Testing Testing Position Sitting Comments Generally 5/5 Wrist Strength Wrist Manual Muscle Testing Right Comments Generally 5/5 Left Comments Generally 5/[address]/Pinch Strength Hand Dominance Hand Dominance Right Hand Strength Left Comments High Court Justice strength slightly less than R on squeeze test. PT-OP-Q Treatments Start: 06/25/22 18:08 Freq: Status: Active Protocol: Document 07/12/22 14:09 LRN (Rec: 07/12/22 14:54 LRN [id number]) Therapeutic Exercises Sitting Exercises Shoulder Ext Sitting Exercise Name Shoulder Ext Side bilateral Equipment Used Lev 2 TB (orange) Reps/Minutes 15x Row Sitting Exercise Name Row Side bilateral Equipment Used Lev 2 TB (orange) Reps/Minutes 15x Shoulder ER/IR strengthening Sitting Exercise Name Shoulder ER/IR strengthening Side bilateral Equipment Used Lev 2 TB (orange) Reps/Minutes 15x C. AROM Sitting Exercise Name Active C. Rotation, SB, & Neutral>Extension Side bilateral Reps/Minutes 5 SH x 6 reps each Comments Tight L UT Shoulder Elevation/Depression Sitting Exercise Name Active Shoulder Elevation/ Depression Side bilateral Reps/Minutes 15x 2 Self-Care/Home Management Treatment Education Patient Education Home Exercise Program Activities Self-Care/Home Management Activities Issued & reviewed HEP: Shoulder strengthening: ER/IR /Row/Ext. Issued Lev 2 TBand ([place]) PT-OP-T Assessment and Plan Start: 06/25/22 18:08 Freq: Status: Active Protocol: Document 07/12/22 14:09 LRN (Rec: 07/12/22 14:54 LRN [id number]) Physical Therapy Assessment Goals Two Impairment L hand numbness first in the morning Short Term Goal (STG) Pt educated in proper sleeping postures. 07/08/22: Pt education in best sidelie sleeping posture on wedge, using pillows and supports to support L UE. STG Duration 07/15/22 Poultry Feed Supervisor Goal (LTG) Pt goal is to eliminate L hand numbness first in the morning . LTG Duration 08/30/22 One Impairment Lacks appriate self care HEP. Short Term Goal (STG) Nighttime splint for L wrist if + Phalen's Test or reverse Phalen's. 07/08/22: - Phalens' and Reverse Phalen's Test. STG Duration 08/05/22 (07/08/22: GOAL not appropriate due to -Test results) Poultry Feed Supervisor Goal (LTG) Pt agrees to and independent HEP of hand/UE/neck ex's. 07/08/22: HEP: C. AROM stretch of C. rot, SB, michelle ext. 07/12/22: HEP: Shoulder ER/IR /row/ext strengthening w/TBand . LTG Duration 08/30/22 progressed 07/12/22 Progress Towards Goals Progress Comments Progressed HEP. Assessment Summary Assessment Pt with reports of numbness and tingling in the L hand first thing in the morning that resolves with Codman's exercise. Techs at his living place did not look at his head/neck sleeping position on waking; therefore still needs to be assessed. Pt needed review to do neck elongation prior to C/S AROM stretch and with exercise, in order to improve posture. Physical Therapy Plan Frequency and Duration Frequency of Treatment 2x/Week Plan of Care Start Date 07/01/22 Plan of Care End Date 08/30/22 Next Visit Focus/Plan Next Note Type Treatment Note Next Visit Plan Monitor for neck elong w/ shoulder and neck ex's. Review RC strengthening ex's. Add: CS stabilization strengthening , thoracic ext ex. Modalities of MH/ice as needed for hand symptoms.
--- NOTE | 2022-08-05 16:16 | PT.OTN ---
Current Diagnoses Postural kyphosis, thoracic region (08/05/22) Muscle weakness (generalized) (08/05/22) Pain in left hand (08/05/22) Paresthesia of skin (08/05/22) Physical Therapy Treatment Note PT-OP-A Visit Information Start: 06/25/22 18:08 Freq: Status: Active Protocol: Document 08/05/22 15:18 LRN (Rec: 08/05/22 16:16 LRN [id number]) Out-Patient Physical Therapy Visit Information Visit Information Visit Type Treatment Note Visit Start Time 15:18 Visit Stop Time 15:56 Total Visit Minutes 38 Visit Number 4 Evaluation Information Evaluation Date 07/01/22 Precautions Precautions Per PMH in system: Morbid Obesity, IDDM (pt reports type 2 diabetes), PVD, peripheral autonomic enuropathy, Toe amputation, Ulcer R foot, non- ST elevation myocardial infarction (NSTEMI), Fall history 12/2021 at home early in morning, slid off bed. PT-OP-B Current Condition Start: 06/25/22 18:08 Freq: Status: Active Protocol: Document 07/01/22 10:33 LRN (Rec: 07/01/22 12:17 LRN [id number]) Current Condition History of Current Condition Onset Date 2 yrs ago Current Complaints Numbness in L hand on first waking in bed. History of Current Condition Morning, after sleeping on R side, has numbness in the L hand when waking up in the morning that can turn into excruciating pain. Has tried different arm positions, but found if he draps L arm across the body and dangles it off the bed can sense an immediate relief of numbness and pain with linging residual pain. Notes his head may be very slighly bent to right and face forward. After getting up the numbness goes away. In studio apt uses walker when first getting out of bed to use bathroom. Normally walks without assistive. Using electric wheelchair while in therapy due to R hip pain with prolonged walking. Future Testing and Treatments Planned Nerve conductivity shows pinched nerve in L wrist and neck. Has been diagnosed with neuropathy. Developmental History Developmental History Back pain spine related. In electric wheelchair, but normally uses a walker for balance issues due to severe diabetic neuropathy. Treatment Goals Patient/Caregiver Goals Pt goal is to eliminate L hand numbness first in the morning . Pt agrees to an independent HEP of hand/UE/neck ex's. Current Functional Impairments (Reported) Functional Limitations- ADL's Lives at [facility] living. Functional Limitations- Mobility/Gait Pt drives, Can walk w/o assistive device. Walks with a FWW first in the morning and uses Electric W/C for extended walking (75' or more) . Personal Factors Other Personal Factors That May Effect IDDM, Neuropathy diabetic, Therapy/Recovery ulcer R foot, partially controlled HBP, history of back/R hip pain. PT-OP-C Subjective Start: 06/25/22 18:08 Freq: Status: Active Protocol: Document 08/05/22 15:18 LRN (Rec: 08/05/22 16:16 LRN [id number]) OP-PT Subjective Patient Comments Patient Comments Problem with L hand numbness and a little painful this morning, but has been better. Has not had the numbness as much in the morning, is minor, almost negligible. Was told by [employer] that his position in the morning he is normal w /o head twisted. PT-OP-H Neuro Start: 06/25/22 18:08 Freq: Status: Active Protocol: Document 07/01/22 10:33 LRN (Rec: 07/01/22 12:17 LRN [id number]) Sensation Evaluation Gross Sensation Gross Sensation WNL Coordination Evaluation Upper Extremity Tests Right Finger to Nose Test Minimal Impairment Left Finger to Nose Test Normal Performance Deep Tendon Reflex & Clonus Assessment Deep Tendon Reflex Right Tricep Deep Tendon Reflex 0 Absent Right Bicep Deep Tendon Reflex 0 Absent Left Tricep Deep Tendon Reflex 0 Absent Left Bicep Deep Tendon Reflex 0 Absent PT-OP-J Posture/Palpation/Skin Start: 06/25/22 18:08 Freq: Status: Active Protocol: Document 07/01/22 10:33 LRN (Rec: 07/01/22 12:17 LRN [id number]) Posture Evaluation Position Sitting Head/C-Spine Posture Forward Head T-Spine Posture Increased Kyphosis L-Spine Posture Flattened Shoulder Posture (L) Elevated Comments Posture Comments 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 Palpation Assessment Location L hand Palpation Location L hand thumb-index interossei Palpation Details Atrophy PT-OP-K Range of Motion Start: 06/25/22 18:08 Freq: Status: Active Protocol: Document 07/01/22 10:33 LRN (Rec: 07/01/22 12:17 LRN [id number]) Wrist Goniometric Range of Motion Wrist Right Flexion Active (degrees) 75 Extension Active (degrees) 65 Ulnar Deviation Active (degrees) 28 Radial Deviation Active (degrees) 15 Left Flexion Active (degrees) 80 Extension Active (degrees) 65 Ulnar Deviation Active (degrees) 30 Radial Deviation Active (degrees) 30 PT-OP-L Special Tests Start: 06/25/22 18:08 Freq: Status: Active Protocol: Document 07/08/22 13:22 LRN (Rec: 07/08/22 14:59 LRN [id number]) Special Tests Neural Special Tests- Upper Body Reverse Phalen's Test Results - L wrist Phalen's Test Results - L wrist Tinel Sign Test Results - L wrist Ulnar Nerve Tension Test Results + left Comments Tightness in L UE PT-OP-M Strength Start: 06/25/22 18:08 Freq: Status: Active Protocol: Document 07/01/22 10:33 LRN (Rec: 07/01/22 12:17 LRN [id number]) Cervical Spine Strength Cervical Spine Manual Muscle Testing Testing Position Sitting Comments Generally 5/5 Wrist Strength Wrist Manual Muscle Testing Right Comments Generally 5/5 Left Comments Generally 5/5 Hand Camp Director/Pinch Strength Hand Dominance Hand Dominance Right Hand Strength Left Comments Camp Director strength slightly less than R on squeeze test. PT-OP-Q Treatments Start: 06/25/22 18:08 Freq: Status: Active Protocol: Document 08/05/22 15:18 LRN (Rec: 08/05/22 16:16 LRN [id number]) Therapeutic Exercises Supine Exercises C. Leonie Supine Exercise Name Leonie strengthening: flex,ext, SB, rot Side bilateral Reps/Minutes 5 SH x 5-10 reps, 24 minutes Sidelying Exercises Shoulder Elevation/Depression Sidelying Exercise Name Active Shoulder Elevation/ Depression in nighttime position on wedge Side bilateral Reps/Minutes 15x Sitting Exercises Row Sitting Exercise Name Row Side bilateral Equipment Used Lev 2 TB (orange) Reps/Minutes 15x Shoulder ER/IR strengthening Sitting Exercise Name Shoulder ER/IR strengthening Side bilateral Equipment Used Lev 2 TB (orange) Reps/Minutes 15x C. AROM Sitting Exercise Name Active C. Rotation, SB, & Neutral>Extension Side bilateral Reps/Minutes 5 SH x 6 reps each Manual Therapy Treatment Manual Traction Cervical Details C. Tx Body Position Supine Reps/Duration 4' Manual Techniques Passive C/S ROM Type Passive stretch Body Location C/S rot & SB Body Position Supine Reps/Duration 8' Self-Care/Home Management Treatment Education Patient Education Home Exercise Program Activities Self-Care/Home Management Activities Issued & reviewed HEP: Cervical Isometric strengthening (sup: flex/ext/ rot, sitting: SB) PT-OP-T Assessment and Plan Start: 06/25/22 18:08 Freq: Status: Active Protocol: Document 08/05/22 15:18 LRN (Rec: 08/05/22 16:16 LRN [id number]) Physical Therapy Assessment Goals Two Impairment L hand numbness first in the morning Short Term Goal (STG) Pt educated in proper sleeping postures. 07/08/22: Pt education in best sidelie sleeping posture on wedge, using pillows and supports to support L UE. STG Duration 07/15/22 (07/08/22: MET GOAL ) Residential Goal (LTG) Pt goal is to eliminate L hand numbness first in the morning . 08/05/22: Pt reporting has not had the numbness as much in the morning, is minor, almost negligible. Has numbness if leaning on elbow too long. LTG Duration 08/30/22 progressing 08/05/22 One Impairment Lacks appriate self care HEP. Short Term Goal (STG) Nighttime splint for L wrist if + Phalen's Test or reverse Phalen's. 07/08/22: - Phalens' and Reverse Phalen's Test. STG Duration 08/05/22 (07/08/22: GOAL not appropriate due to -Test results) Residential Goal (LTG) Pt agrees to and independent HEP of hand/UE/neck ex's. 07/08/22: HEP: C. AROM stretch of C. rot, SB, leonie ext. 07/12/22: HEP: Shoulder ER/IR /row/ext strengthening w/TBand . 08/05/22: HEP: C/S Isometric strengthening. LTG Duration 08/30/22 progressed 08/05/22 Assessment Summary Assessment Pt numbness and tingling in the L hand first in the morning is less, almost negligible. Pt states the med techs notice he is in normal head/neck posture on waking, although has slid down on his wedge; therefore appears his head/neck posturing has been good while sleeping. Physical Therapy Plan Frequency and Duration Frequency of Treatment 2x/Week Plan of Care Start Date 07/01/22 Plan of Care End Date 08/30/22 Next Visit Focus/Plan Next Note Type Treatment Note Next Visit Plan Review CS stabilization strengthening, and review/ issue HEP for RC strengthening . Add: thoracic ext ex (open book or pec stretch ex) Modalities of MH/ice as needed for hand symptoms.
--- NOTE | 2022-08-09 16:44 | PT.OTN ---
Current Diagnoses Postural kyphosis, thoracic region (08/09/22) Muscle weakness (generalized) (08/09/22) Pain in left hand (08/09/22) Paresthesia of skin (08/09/22) Physical Therapy Treatment Note PT-OP-A Visit Information Start: 06/25/22 18:08 Freq: Status: Active Protocol: Document 08/09/22 10:37 LRN (Rec: 08/09/22 11:19 LRN [id number]) Out-Patient Physical Therapy Visit Information Visit Information Visit Type Treatment Note Visit Start Time 10:37 Visit Stop Time 11:19 Total Visit Minutes 42 Visit Number 5 Evaluation Information Evaluation Date 07/01/22 Precautions Precautions Per PMH in system: Morbid Obesity, IDDM (pt reports type 2 diabetes), PVD, peripheral autonomic enuropathy, Toe amputation, Ulcer R foot, non- ST elevation myocardial infarction (NSTEMI), Fall history 12/2021 at home early in morning, slid off bed. PT-OP-B Current Condition Start: 06/25/22 18:08 Freq: Status: Active Protocol: Document 07/01/22 10:33 LRN (Rec: 07/01/22 12:17 LRN [id number]) Current Condition History of Current Condition Onset Date 2 yrs ago Current Complaints Numbness in L hand on first waking in bed. History of Current Condition Morning, after sleeping on R side, has numbness in the L hand when waking up in the morning that can turn into excruciating pain. Has tried different arm positions, but found if he draps L arm across the body and dangles it off the bed can sense an immediate relief of numbness and pain with linging residual pain. Notes his head may be very slighly bent to right and face forward. After getting up the numbness goes away. In studio apt uses walker when first getting out of bed to use bathroom. Normally walks without assistive. Using electric wheelchair while in therapy due to R hip pain with prolonged walking. Future Testing and Treatments Planned Nerve conductivity shows pinched nerve in L wrist and neck. Has been diagnosed with neuropathy. Developmental History Developmental History Back pain spine related. In electric wheelchair, but normally uses a walker for balance issues due to severe diabetic neuropathy. Treatment Goals Patient/Caregiver Goals Pt goal is to eliminate L hand numbness first in the morning . Pt agrees to an independent HEP of hand/UE/neck ex's. Current Functional Impairments (Reported) Functional Limitations- ADL's Lives at [facility] living. Functional Limitations- Mobility/Gait Pt drives, Can walk w/o assistive device. Walks with a FWW first in the morning and uses Electric W/C for extended walking (75' or more) . Personal Factors Other Personal Factors That May Effect IDDM, Neuropathy diabetic, Therapy/Recovery ulcer R foot, partially controlled HBP, history of back/R hip pain. PT-OP-C Subjective Start: 06/25/22 18:08 Freq: Status: Active Protocol: Document 08/09/22 10:37 LRN (Rec: 08/09/22 11:19 LRN [id number]) OP-PT Subjective Patient Comments Patient Comments Pain in L hand yesterday morning, this morning midly numb. PT-OP-H Neuro Start: 06/25/22 18:08 Freq: Status: Active Protocol: Document 07/01/22 10:33 LRN (Rec: 07/01/22 12:17 LRN [id number]) Sensation Evaluation Gross Sensation Gross Sensation WNL Coordination Evaluation Upper Extremity Tests Right Finger to Nose Test Minimal Impairment Left Finger to Nose Test Normal Performance Deep Tendon Reflex & Clonus Assessment Deep Tendon Reflex Right Tricep Deep Tendon Reflex 0 Absent Right Bicep Deep Tendon Reflex 0 Absent Left Tricep Deep Tendon Reflex 0 Absent Left Bicep Deep Tendon Reflex 0 Absent PT-OP-J Posture/Palpation/Skin Start: 06/25/22 18:08 Freq: Status: Active Protocol: Document 07/01/22 10:33 LRN (Rec: 07/01/22 12:17 LRN [id number]) Posture Evaluation Position Sitting Head/C-Spine Posture Forward Head T-Spine Posture Increased Kyphosis L-Spine Posture Flattened Shoulder Posture (L) Elevated Comments Posture Comments 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 Palpation Assessment Location L hand Palpation Location L hand thumb-index interossei Palpation Details Atrophy PT-OP-K Range of Motion Start: 06/25/22 18:08 Freq: Status: Active Protocol: Document 07/01/22 10:33 LRN (Rec: 07/01/22 12:17 LRN [id number]) Wrist Goniometric Range of Motion Wrist Right Flexion Active (degrees) 75 Extension Active (degrees) 65 Ulnar Deviation Active (degrees) 28 Radial Deviation Active (degrees) 15 Left Flexion Active (degrees) 80 Extension Active (degrees) 65 Ulnar Deviation Active (degrees) 30 Radial Deviation Active (degrees) 30 PT-OP-L Special Tests Start: 06/25/22 18:08 Freq: Status: Active Protocol: Document 07/08/22 13:22 LRN (Rec: 07/08/22 14:59 LRN [id number]) Special Tests Neural Special Tests- Upper Body Reverse Phalen's Test Results - L wrist Phalen's Test Results - L wrist Tinel Sign Test Results - L wrist Ulnar Nerve Tension Test Results + left Comments Tightness in L UE PT-OP-M Strength Start: 06/25/22 18:08 Freq: Status: Active Protocol: Document 07/01/22 10:33 LRN (Rec: 07/01/22 12:17 LRN [id number]) Cervical Spine Strength Cervical Spine Manual Muscle Testing Testing Position Sitting Comments Generally 5/5 Wrist Strength Wrist Manual Muscle Testing Right Comments Generally 5/5 Left Comments Generally 5/5 Hand Mma Fighter/Pinch Strength Hand Dominance Hand Dominance Right Hand Strength Left Comments Mma Fighter strength slightly less than R on squeeze test. PT-OP-Q Treatments Start: 06/25/22 18:08 Freq: Status: Active Protocol: Document 08/09/22 10:37 LRN (Rec: 08/09/22 11:19 LRN [id number]) Therapeutic Exercises Supine Exercises Neck Elongation Supine Exercise Name Neck Elongation: w/o & w/ gravity resistance Reps/Minutes 5 SH x 10 C. Leonie Supine Exercise Name Leonie strengthening: flex, SB, rot Side bilateral Reps/Minutes 5 SH x 5-10 reps, 20 minutes Sidelying Exercises Open book stretch Sidelying Exercise Name Open book stretch for upper thoracic rot Side bilateral Reps/Minutes 3-4 SH x 10 Sitting Exercises Chest Press Sitting Exercise Name Chest Press Side bilateral Equipment Used Lev 2 TB Reps/Minutes 10x Standing Exercises Lat pull down Standing Exercise Name Lat pull down Side bilateral Equipment Used Lev 2 TB Reps/Minutes 3' Comments Cuing to move scapula into opp back pockets Self-Care/Home Management Treatment Education Patient Education Home Exercise Program Activities Self-Care/Home Management Activities Issued & reviewed HEP: Open book upper thoracic rot stretch. PT-OP-T Assessment and Plan Start: 06/25/22 18:08 Freq: Status: Active Protocol: Document 08/09/22 10:37 LRN (Rec: 08/09/22 11:19 LRN [id number]) Physical Therapy Assessment Goals Two Impairment L hand numbness first in the morning Short Term Goal (STG) Pt educated in proper sleeping postures. 07/08/22: Pt education in best sidelie sleeping posture on wedge, using pillows and supports to support L UE. STG Duration 07/15/22 (07/08/22: MET GOAL ) Intermediate Goal (LTG) Pt goal is to eliminate L hand numbness first in the morning . 08/05/22: Pt reporting has not had the numbness as much in the morning, is minor, almost negligible. Has numbness if leaning on elbow too long. LTG Duration 08/30/22 progressing 08/05/22 One Impairment Lacks appriate self care HEP. Short Term Goal (STG) Nighttime splint for L wrist if + Phalen's Test or reverse Phalen's. 07/08/22: - Phalens' and Reverse Phalen's Test. STG Duration 08/05/22 (07/08/22: GOAL not appropriate due to -Test results) Intermediate Goal (LTG) Pt agrees to and independent HEP of hand/UE/neck ex's. 07/08/22: HEP: C. AROM stretch of C. rot, SB, leonie ext. 07/12/22: HEP: Shoulder ER/IR /row/ext strengthening w/TBand . 08/05/22: HEP: C/S Isometric strengthening. LTG Duration 08/30/22 progressed 08/05/22 Assessment Summary Assessment Pt had a fair recall of cervical leonie ex's. Pt able to perform ex's without pain complaints. Unknown cause for recent L hand pain and mild numbness/tingling. Physical Therapy Plan Frequency and Duration Frequency of Treatment 2x/Week Plan of Care Start Date 07/01/22 Plan of Care End Date 08/30/22 Next Visit Focus/Plan Next Note Type Treatment Note Next Visit Plan Review/issue HEP for RC strengthening, thoracic ext ex (open book or pec stretch ex) . Modalities of MH/ice as needed for hand symptoms. RC strengthening
--- NOTE | 2022-08-12 16:50 | PT.OTN ---
Current Diagnoses Postural kyphosis, thoracic region (08/12/22) Muscle weakness (generalized) (08/12/22) Pain in left hand (08/12/22) Paresthesia of skin (08/12/22) Physical Therapy Treatment Note PT-OP-A Visit Information Start: 06/25/22 18:08 Freq: Status: Active Protocol: Document 08/12/22 12:35 LRN (Rec: 08/12/22 13:22 LRN [id number]) Out-Patient Physical Therapy Visit Information Visit Information Visit Type Treatment Note Visit Start Time 12:35 Visit Stop Time 13:19 Total Visit Minutes 44 Visit Number 6 Evaluation Information Evaluation Date 07/01/22 Precautions Precautions Per PMH in system: Morbid Obesity, IDDM (pt reports type 2 diabetes), PVD, peripheral autonomic enuropathy, Toe amputation, Ulcer R foot, non- ST elevation myocardial infarction (NSTEMI), Fall history 12/2021 at home early in morning, slid off bed. PT-OP-B Current Condition Start: 06/25/22 18:08 Freq: Status: Active Protocol: Document 07/01/22 10:33 LRN (Rec: 07/01/22 12:17 LRN [id number]) Current Condition History of Current Condition Onset Date 2 yrs ago Current Complaints Numbness in L hand on first waking in bed. History of Current Condition Morning, after sleeping on R side, has numbness in the L hand when waking up in the morning that can turn into excruciating pain. Has tried different arm positions, but found if he draps L arm across the body and dangles it off the bed can sense an immediate relief of numbness and pain with linging residual pain. Notes his head may be very slighly bent to right and face forward. After getting up the numbness goes away. In studio apt uses walker when first getting out of bed to use bathroom. Normally walks without assistive. Using electric wheelchair while in therapy due to R hip pain with prolonged walking. Future Testing and Treatments Planned Nerve conductivity shows pinched nerve in L wrist and neck. Has been diagnosed with neuropathy. Developmental History Developmental History Back pain spine related. In electric wheelchair, but normally uses a walker for balance issues due to severe diabetic neuropathy. Treatment Goals Patient/Caregiver Goals Pt goal is to eliminate L hand numbness first in the morning . Pt agrees to an independent HEP of hand/UE/neck ex's. Current Functional Impairments (Reported) Functional Limitations- ADL's Lives at [facility] living. Functional Limitations- Mobility/Gait Pt drives, Can walk w/o assistive device. Walks with a FWW first in the morning and uses Electric W/C for extended walking (75' or more) . Personal Factors Other Personal Factors That May Effect IDDM, Neuropathy diabetic, Therapy/Recovery ulcer R foot, partially controlled HBP, history of back/R hip pain. PT-OP-C Subjective Start: 06/25/22 18:08 Freq: Status: Active Protocol: Document 08/12/22 12:35 LRN (Rec: 08/12/22 13:22 LRN [id number]) OP-PT Subjective Patient Comments Patient Comments Legs feel okay today. States the numbness and tingling in the hand has been less noticeable this week. PT-OP-H Neuro Start: 06/25/22 18:08 Freq: Status: Active Protocol: Document 07/01/22 10:33 LRN (Rec: 07/01/22 12:17 LRN [id number]) Sensation Evaluation Gross Sensation Gross Sensation WNL Coordination Evaluation Upper Extremity Tests Right Finger to Nose Test Minimal Impairment Left Finger to Nose Test Normal Performance Deep Tendon Reflex & Clonus Assessment Deep Tendon Reflex Right Tricep Deep Tendon Reflex 0 Absent Right Bicep Deep Tendon Reflex 0 Absent Left Tricep Deep Tendon Reflex 0 Absent Left Bicep Deep Tendon Reflex 0 Absent PT-OP-J Posture/Palpation/Skin Start: 06/25/22 18:08 Freq: Status: Active Protocol: Document 07/01/22 10:33 LRN (Rec: 07/01/22 12:17 LRN [id number]) Posture Evaluation Position Sitting Head/C-Spine Posture Forward Head T-Spine Posture Increased Kyphosis L-Spine Posture Flattened Shoulder Posture (L) Elevated Comments Posture Comments 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 Palpation Assessment Location L hand Palpation Location L hand thumb-index interossei Palpation Details Atrophy PT-OP-K Range of Motion Start: 06/25/22 18:08 Freq: Status: Active Protocol: Document 07/01/22 10:33 LRN (Rec: 07/01/22 12:17 LRN [id number]) Wrist Goniometric Range of Motion Wrist Right Flexion Active (degrees) 75 Extension Active (degrees) 65 Ulnar Deviation Active (degrees) 28 Radial Deviation Active (degrees) 15 Left Flexion Active (degrees) 80 Extension Active (degrees) 65 Ulnar Deviation Active (degrees) 30 Radial Deviation Active (degrees) 30 PT-OP-L Special Tests Start: 06/25/22 18:08 Freq: Status: Active Protocol: Document 07/08/22 13:22 LRN (Rec: 07/08/22 14:59 LRN [id number]) Special Tests Neural Special Tests- Upper Body Reverse Phalen's Test Results - L wrist Phalen's Test Results - L wrist Tinel Sign Test Results - L wrist Ulnar Nerve Tension Test Results + left Comments Tightness in L UE PT-OP-M Strength Start: 06/25/22 18:08 Freq: Status: Active Protocol: Document 07/01/22 10:33 LRN (Rec: 07/01/22 12:17 LRN [id number]) Cervical Spine Strength Cervical Spine Manual Muscle Testing Testing Position Sitting Comments Generally 5/5 Wrist Strength Wrist Manual Muscle Testing Right Comments Generally 5/5 Left Comments Generally 5/5 Hand Embedder/Pinch Strength Hand Dominance Hand Dominance Right Hand Strength Left Comments Embedder strength slightly less than R on squeeze test. PT-OP-Q Treatments Start: 06/25/22 18:08 Freq: Status: Active Protocol: Document 08/12/22 12:35 LRN (Rec: 08/12/22 13:22 LRN [id number]) Therapeutic Exercises Supine Exercises Neck Elongation Supine Exercise Name Neck Elongation: w/o & w/ gravity resistance Reps/Minutes 5 SH x 10 C. Leonie Supine Exercise Name Leonie strengthening: flex, SB, rot Side bilateral Reps/Minutes 5 SH x 5-10 reps, 20 minutes Sitting Exercises Shoulder Ext Sitting Exercise Name Shoulder Ext Side bilateral Equipment Used Lev 2 TB (orange) Reps/Minutes 15x 2 Comments Cued scapular depression/ retraction Shoulder ER/IR strengthening Sitting Exercise Name Shoulder ER/IR strengthening Side bilateral Equipment Used Lev 2 TB (orange) Reps/Minutes 15x 2, extra 15x on L side w/ Lev1 TB Comments Cued to keep elbows in by sides. Standing Exercises Row Standing Exercise Name Row Side bilateral Equipment Used Lev 2 TB Reps/Minutes 15x Comments Stopped ex due to LOB with pt having to do quick sit in W/C. Self-Care/Home Management Treatment Education Patient Education Home Exercise Program Activities Self-Care/Home Management Activities Re-issued & reviewed HEP: Open book upper thoracic rot stretch. Added to HEP, issued & reviewed: RC strengthening of shoulder ER/IR with TBand. PT-OP-T Assessment and Plan Start: 06/25/22 18:08 Freq: Status: Active Protocol: Document 08/12/22 12:35 LRN (Rec: 08/12/22 13:22 LRN [id number]) Physical Therapy Assessment Goals Two Impairment L hand numbness first in the morning Short Term Goal (STG) Pt educated in proper sleeping postures. 07/08/22: Pt education in best sidelie sleeping posture on wedge, using pillows and supports to support L UE. STG Duration 07/15/22 (07/08/22: MET GOAL ) [employer] Build[employer]orator Goal (LTG) Pt goal is to eliminate L hand numbness first in the morning . 08/05/22: Pt reporting has not had the numbness as much in the morning, is minor, almost negligible. Has numbness if leaning on elbow too long. LTG Duration 08/30/22 progressing 08/05/22 One Impairment Lacks appriate self care HEP. Short Term Goal (STG) Nighttime splint for L wrist if + Phalen's Test or reverse Phalen's. 07/08/22: - Phalens' and Reverse Phalen's Test. STG Duration 08/05/22 (07/08/22: GOAL not appropriate due to -Test results) [employer] Build[employer] Goal (LTG) Pt agrees to and independent HEP of hand/UE/neck ex's. 07/08/22: HEP: C. AROM stretch of C. rot, SB, leonie ext. 07/12/22: HEP: Shoulder ER/IR /row/ext strengthening w/TBand . 08/05/22: HEP: C/S Isometric strengthening. 08/12/22: HEP; Shldr ER/IR TBand strengthening. LTG Duration 08/30/22 progressed 08/12/22 (needing hand/elbow ex's) Assessment Summary Assessment Pt needed cuing for RC ex's issued. Pt did not do well with standing for ex's due to LOB; therefore continued ex's today in sitting. Pt having less c/o L hand numbness tingling, reporting intensity is less. Physical Therapy Plan Frequency and Duration Frequency of Treatment 2x/Week Plan of Care Start Date 07/01/22 Plan of Care End Date 08/30/22 Next Visit Focus/Plan Next Note Type Treatment Note Next Visit Plan Review/issue HEP for RC strengthening, thoracic ext ex (open book or pec stretch ex) . Modalities of MH/ice as needed for hand symptoms. Progress RC and UE strengthening (UBE), and C/S stabilization. Add elbow strengthening with proper neck /shoulder posture.
--- NOTE | 2022-08-16 15:17 | PT.OTN ---
Current Diagnoses Postural kyphosis, thoracic region (08/16/22) Muscle weakness (generalized) (08/16/22) Pain in left hand (08/16/22) Paresthesia of skin (08/16/22) Physical Therapy Treatment Note PT-OP-A Visit Information Start: 06/25/22 18:08 Freq: Status: Active Protocol: Document 08/16/22 14:17 LRN (Rec: 08/16/22 15:17 LRN [id number]) Out-Patient Physical Therapy Visit Information Visit Information Visit Type Treatment Note Visit Start Time 14:17 Visit Stop Time 15:00 Total Visit Minutes 43 Visit Number 7 Evaluation Information Evaluation Date 07/01/22 Precautions Precautions Per PMH in system: Morbid Obesity, IDDM (pt reports type 2 diabetes), PVD, peripheral autonomic enuropathy, Toe amputation, Ulcer R foot, non- ST elevation myocardial infarction (NSTEMI), Fall history 12/2021 at home early in morning, slid off bed. PT-OP-B Current Condition Start: 06/25/22 18:08 Freq: Status: Active Protocol: Document 07/01/22 10:33 LRN (Rec: 07/01/22 12:17 LRN [id number]) Current Condition History of Current Condition Onset Date 2 yrs ago Current Complaints Numbness in L hand on first waking in bed. History of Current Condition Morning, after sleeping on R side, has numbness in the L hand when waking up in the morning that can turn into excruciating pain. Has tried different arm positions, but found if he draps L arm across the body and dangles it off the bed can sense an immediate relief of numbness and pain with linging residual pain. Notes his head may be very slighly bent to right and face forward. After getting up the numbness goes away. In studio apt uses walker when first getting out of bed to use bathroom. Normally walks without assistive. Using electric wheelchair while in therapy due to R hip pain with prolonged walking. Future Testing and Treatments Planned Nerve conductivity shows pinched nerve in L wrist and neck. Has been diagnosed with neuropathy. Developmental History Developmental History Back pain spine related. In electric wheelchair, but normally uses a walker for balance issues due to severe diabetic neuropathy. Treatment Goals Patient/Caregiver Goals Pt goal is to eliminate L hand numbness first in the morning . Pt agrees to an independent HEP of hand/UE/neck ex's. Current Functional Impairments (Reported) Functional Limitations- ADL's Lives at [facility] living. Functional Limitations- Mobility/Gait Pt drives, Can walk w/o assistive device. Walks with a FWW first in the morning and uses Electric W/C for extended walking (75' or more) . Personal Factors Other Personal Factors That May Effect IDDM, Neuropathy diabetic, Therapy/Recovery ulcer R foot, partially controlled HBP, history of back/R hip pain. PT-OP-C Subjective Start: 06/25/22 18:08 Freq: Status: Active Protocol: Document 08/16/22 14:17 LRN (Rec: 08/16/22 15:17 LRN [id number]) OP-PT Subjective Patient Comments Patient Comments Hasn't woken with L hand numbness for the past couple of days. PT-OP-H Neuro Start: 06/25/22 18:08 Freq: Status: Active Protocol: Document 07/01/22 10:33 LRN (Rec: 07/01/22 12:17 LRN [id number]) Sensation Evaluation Gross Sensation Gross Sensation WNL Coordination Evaluation Upper Extremity Tests Right Finger to Nose Test Minimal Impairment Left Finger to Nose Test Normal Performance Deep Tendon Reflex & Clonus Assessment Deep Tendon Reflex Right Tricep Deep Tendon Reflex 0 Absent Right Bicep Deep Tendon Reflex 0 Absent Left Tricep Deep Tendon Reflex 0 Absent Left Bicep Deep Tendon Reflex 0 Absent PT-OP-J Posture/Palpation/Skin Start: 06/25/22 18:08 Freq: Status: Active Protocol: Document 07/01/22 10:33 LRN (Rec: 07/01/22 12:17 LRN [id number]) Posture Evaluation Position Sitting Head/C-Spine Posture Forward Head T-Spine Posture Increased Kyphosis L-Spine Posture Flattened Shoulder Posture (L) Elevated Comments Posture Comments 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 Palpation Assessment Location L hand Palpation Location L hand thumb-index interossei Palpation Details Atrophy PT-OP-K Range of Motion Start: 06/25/22 18:08 Freq: Status: Active Protocol: Document 07/01/22 10:33 LRN (Rec: 07/01/22 12:17 LRN [id number]) Wrist Goniometric Range of Motion Wrist Right Flexion Active (degrees) 75 Extension Active (degrees) 65 Ulnar Deviation Active (degrees) 28 Radial Deviation Active (degrees) 15 Left Flexion Active (degrees) 80 Extension Active (degrees) 65 Ulnar Deviation Active (degrees) 30 Radial Deviation Active (degrees) 30 PT-OP-L Special Tests Start: 06/25/22 18:08 Freq: Status: Active Protocol: Document 07/08/22 13:22 LRN (Rec: 07/08/22 14:59 LRN [id number]) Special Tests Neural Special Tests- Upper Body Reverse Phalen's Test Results - L wrist Phalen's Test Results - L wrist Tinel Sign Test Results - L wrist Ulnar Nerve Tension Test Results + left Comments Tightness in L UE PT-OP-M Strength Start: 06/25/22 18:08 Freq: Status: Active Protocol: Document 07/01/22 10:33 LRN (Rec: 07/01/22 12:17 LRN [id number]) Cervical Spine Strength Cervical Spine Manual Muscle Testing Testing Position Sitting Comments Generally 5/5 Wrist Strength Wrist Manual Muscle Testing Right Comments Generally 5/5 Left Comments Generally 5/5 Hand Firefighter/Pinch Strength Hand Dominance Hand Dominance Right Hand Strength Left Comments Firefighter strength slightly less than R on squeeze test. PT-OP-Q Treatments Start: 06/25/22 18:08 Freq: Status: Active Protocol: Document 08/16/22 14:17 LRN (Rec: 08/16/22 15:17 LRN [id number]) Cardio Equipment Upper Body Ergometer (UBE) Duration (Minutes) 6 RPM 90 Height 2.5 Other Green back support Therapeutic Exercises Supine Exercises Neck Elongation Supine Exercise Name Neck Elongation: w/o & w/ gravity resistance Reps/Minutes 5 SH x 10 C. Leonie Supine Exercise Name Leonie strengthening: flex, SB, rot Side bilateral Reps/Minutes 5 SH x 5-10 reps, 20 minutes Sitting Exercises Chest Press Sitting Exercise Name Chest Press Side bilateral Equipment Used Lev 2 TB Reps/Minutes 15x 2 Shoulder Ext Sitting Exercise Name Shoulder Ext Side bilateral Equipment Used Lev 2 TB (orange) Reps/Minutes 15x 2 Comments Cued scapular depression/ retraction Row Sitting Exercise Name Row Side bilateral Equipment Used Lev 2 TB (orange) Reps/Minutes 15x 2 Shoulder ER/IR strengthening Sitting Exercise Name Shoulder ER/IR strengthening Side bilateral Equipment Used Lev 2 TB (orange) Reps/Minutes 15x 2, extra 15x on L side w/ Lev1 TB Comments Cued to keep elbows in by sides. Self-Care/Home Management Treatment Education Patient Education Home Exercise Program Other Education Reviewed previously issued HEP for RC strengthening and thoracic ext ex (open book or pec stretch ex). Activities Self-Care/Home Management Activities Issued & reviewed HEP of TBand RC strengthening (ER/IR/Chest Press/Row/Shldr Ext). PT-OP-T Assessment and Plan Start: 06/25/22 18:08 Freq: Status: Active Protocol: Document 08/16/22 14:17 LRN (Rec: 08/16/22 15:17 LRN [id number]) Physical Therapy Assessment Goals Two Impairment L hand numbness first in the morning Short Term Goal (STG) Pt educated in proper sleeping postures. 07/08/22: Pt education in best sidelie sleeping posture on wedge, using pillows and supports to support L UE. STG Duration 07/15/22 (07/08/22: MET GOAL ) Assisted Goal (LTG) Pt goal is to eliminate L hand numbness first in the morning . 08/05/22: Pt reporting has not had the numbness as much in the morning, is minor, almost negligible. Has numbness if leaning on elbow too long. 08/16/22: Past 2 days no numbness in hands on waking. LTG Duration 08/30/22 progressing 08/16/22 One Impairment Lacks appriate self care HEP. Short Term Goal (STG) Nighttime splint for L wrist if + Phalen's Test or reverse Phalen's. 07/08/22: - Phalens' and Reverse Phalen's Test. STG Duration 08/05/22 (07/08/22: GOAL not appropriate due to -Test results) Director Of Individual Giving Goal (LTG) Pt agrees to and independent HEP of hand/UE/neck ex's. 07/08/22: HEP: C. AROM stretch of C. rot, SB, leonie ext. 07/12/22: HEP: Shoulder ER/IR /row/ext strengthening w/TBand . 08/05/22: HEP: C/S Isometric strengthening. 08/12/22: HEP: Shldr ER/IR TBand strengthening. 08/16/22: HEP: TBand shldr ER/IR/row/ext/chest press strengthening LTG Duration 08/30/22 progressed 08/16/22 (needing hand/elbow ex's) Progress Towards Goals Progress Comments Progressed HEP Assessment Summary Assessment Pt initially reported of numbness and tingling in the L hand first thing in the morning that resolved with dangling of his arm in front of him over the edge of his bed. He has had a couple days of waking without L hand numbness with start of shoulder strengthening. He is doing shoulder and postural strengthening wth cuing. Physical Therapy Plan Frequency and Duration Frequency of Treatment 2x/Week Plan of Care Start Date 07/01/22 Plan of Care End Date 08/30/22 Next Visit Focus/Plan Next Note Type Treatment Note Next Visit Plan Progress RC and UE strengthening (UBE), and C/S stabilization. Add HEP: elbow strengthening with proper neck/shoulder posture. Modalities of MH/ice as needed for hand symptoms.
--- NOTE | 2022-08-19 14:02 | PT.OTN ---
Current Diagnoses Postural kyphosis, thoracic region (08/19/22) Muscle weakness (generalized) (08/19/22) Pain in left hand (08/19/22) Paresthesia of skin (08/19/22) Physical Therapy Treatment Note PT-OP-A Visit Information Start: 06/25/22 18:08 Freq: Status: Active Protocol: Document 08/19/22 13:19 LRN (Rec: 08/19/22 14:02 LRN [id number]) Out-Patient Physical Therapy Visit Information Visit Information Visit Type Treatment Note Visit Start Time 13:19 Visit Stop Time 13:59 Total Visit Minutes 40 Visit Number 8 Evaluation Information Evaluation Date 07/01/22 Precautions Precautions Per PMH in system: Morbid Obesity, IDDM (pt reports type 2 diabetes), PVD, peripheral autonomic enuropathy, Toe amputation, Ulcer R foot, non- ST elevation myocardial infarction (NSTEMI), Fall history 12/2021 at home early in morning, slid off bed. PT-OP-B Current Condition Start: 06/25/22 18:08 Freq: Status: Active Protocol: Document 07/01/22 10:33 LRN (Rec: 07/01/22 12:17 LRN [id number]) Current Condition History of Current Condition Onset Date 2 yrs ago Current Complaints Numbness in L hand on first waking in bed. History of Current Condition Morning, after sleeping on R side, has numbness in the L hand when waking up in the morning that can turn into excruciating pain. Has tried different arm positions, but found if he draps L arm across the body and dangles it off the bed can sense an immediate relief of numbness and pain with linging residual pain. Notes his head may be very slighly bent to right and face forward. After getting up the numbness goes away. In studio apt uses walker when first getting out of bed to use bathroom. Normally walks without assistive. Using electric wheelchair while in therapy due to R hip pain with prolonged walking. Future Testing and Treatments Planned Nerve conductivity shows pinched nerve in L wrist and neck. Has been diagnosed with neuropathy. Developmental History Developmental History Back pain spine related. In electric wheelchair, but normally uses a walker for balance issues due to severe diabetic neuropathy. Treatment Goals Patient/Caregiver Goals Pt goal is to eliminate L hand numbness first in the morning . Pt agrees to an independent HEP of hand/UE/neck ex's. Current Functional Impairments (Reported) Functional Limitations- ADL's Lives at [facility] living. Functional Limitations- Mobility/Gait Pt drives, Can walk w/o assistive device. Walks with a FWW first in the morning and uses Electric W/C for extended walking (75' or more) . Personal Factors Other Personal Factors That May Effect IDDM, Neuropathy diabetic, Therapy/Recovery ulcer R foot, partially controlled HBP, history of back/R hip pain. PT-OP-C Subjective Start: 06/25/22 18:08 Freq: Status: Active Protocol: Document 08/19/22 13:19 LRN (Rec: 08/19/22 14:02 LRN [id number]) OP-PT Subjective Patient Comments Patient Comments States he has not woken with L hand numbness/tingling since his last visit. PT-OP-H Neuro Start: 06/25/22 18:08 Freq: Status: Active Protocol: Document 07/01/22 10:33 LRN (Rec: 07/01/22 12:17 LRN [id number]) Sensation Evaluation Gross Sensation Gross Sensation WNL Coordination Evaluation Upper Extremity Tests Right Finger to Nose Test Minimal Impairment Left Finger to Nose Test Normal Performance Deep Tendon Reflex & Clonus Assessment Deep Tendon Reflex Right Tricep Deep Tendon Reflex 0 Absent Right Bicep Deep Tendon Reflex 0 Absent Left Tricep Deep Tendon Reflex 0 Absent Left Bicep Deep Tendon Reflex 0 Absent PT-OP-J Posture/Palpation/Skin Start: 06/25/22 18:08 Freq: Status: Active Protocol: Document 07/01/22 10:33 LRN (Rec: 07/01/22 12:17 LRN [id number]) Posture Evaluation Position Sitting Head/C-Spine Posture Forward Head T-Spine Posture Increased Kyphosis L-Spine Posture Flattened Shoulder Posture (L) Elevated Comments Posture Comments 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 Palpation Assessment Location L hand Palpation Location L hand thumb-index interossei Palpation Details Atrophy PT-OP-K Range of Motion Start: 06/25/22 18:08 Freq: Status: Active Protocol: Document 07/01/22 10:33 LRN (Rec: 07/01/22 12:17 LRN [id number]) Wrist Goniometric Range of Motion Wrist Right Flexion Active (degrees) 75 Extension Active (degrees) 65 Ulnar Deviation Active (degrees) 28 Radial Deviation Active (degrees) 15 Left Flexion Active (degrees) 80 Extension Active (degrees) 65 Ulnar Deviation Active (degrees) 30 Radial Deviation Active (degrees) 30 PT-OP-L Special Tests Start: 06/25/22 18:08 Freq: Status: Active Protocol: Document 07/08/22 13:22 LRN (Rec: 07/08/22 14:59 LRN [id number]) Special Tests Neural Special Tests- Upper Body Reverse Phalen's Test Results - L wrist Phalen's Test Results - L wrist Tinel Sign Test Results - L wrist Ulnar Nerve Tension Test Results + left Comments Tightness in L UE PT-OP-M Strength Start: 06/25/22 18:08 Freq: Status: Active Protocol: Document 07/01/22 10:33 LRN (Rec: 07/01/22 12:17 LRN [id number]) Cervical Spine Strength Cervical Spine Manual Muscle Testing Testing Position Sitting Comments Generally 5/5 Wrist Strength Wrist Manual Muscle Testing Right Comments Generally 5/5 Left Comments Generally 5/5 Hand Pony Trimmer/Pinch Strength Hand Dominance Hand Dominance Right Hand Strength Left Comments Pony Trimmer strength slightly less than R on squeeze test. PT-OP-Q Treatments Start: 06/25/22 18:08 Freq: Status: Active Protocol: Document 08/19/22 13:19 LRN (Rec: 08/19/22 14:02 LRN [id number]) Cardio Equipment Upper Body Ergometer (UBE) Duration (Minutes) 7 RPM 90 Seat Position 16 Height 2.5 Other Green back support. Fwd/bwd Therapeutic Exercises Sitting Exercises Chest Press Sitting Exercise Name Chest Press - unsupported Side bilateral Equipment Used Lev 2 & Lev 3 TB Reps/Minutes 15x each TB Comments Cuing to not rub TB agaist neck Shoulder Ext Sitting Exercise Name Shoulder Ext - unsupported Side bilateral Equipment Used Lev 2 TB (orange) Reps/Minutes 15x 2 Comments Cued scapular depression/ retraction Row Sitting Exercise Name Row - unsupported Side bilateral Equipment Used Lev 2 TB (orange) Reps/Minutes 15x 2 Shoulder ER/IR strengthening Sitting Exercise Name Shoulder ER/IR - unsupported Side bilateral Resistance Lev 2 TB (orange) & Lev 3 ( [place]) Equipment Used towel roll under elbows to squeeze Reps/Minutes IR/ER: 15x each TB. Issued Lev3 TB for home Comments Cued to keep elbows in by sides. PT-OP-T Assessment and Plan Start: 06/25/22 18:08 Freq: Status: Active Protocol: Document 08/19/22 13:19 LRN (Rec: 08/19/22 14:02 LRN [id number]) Physical Therapy Assessment Goals Two Impairment L hand numbness first in the morning Short Term Goal (STG) Pt educated in proper sleeping postures. 07/08/22: Pt education in best sidelie sleeping posture on wedge, using pillows and supports to support L UE. STG Duration 07/15/22 (07/08/22: MET GOAL ) Retirement Goal (LTG) Pt goal is to eliminate L hand numbness first in the morning . 08/05/22: Pt reporting has not had the numbness as much in the morning, is minor, almost negligible. Has numbness if leaning on elbow too long. 08/16/22: Past 2 days no numbness in hands on waking. 08/18/22: No numbness/tingling in hands on waking. LTG Duration 08/30/22 08/18/22: Progressed ?Goal met. One Impairment Lacks appriate self care HEP. Short Term Goal (STG) Nighttime splint for L wrist if + Phalen's Test or reverse Phalen's. 07/08/22: - Phalens' and Reverse Phalen's Test. STG Duration 08/05/22 (07/08/22: GOAL not appropriate due to -Test results) Retirement Goal (LTG) Pt agrees to and independent HEP of hand/UE/neck ex's. 07/08/22: HEP: C. AROM stretch of C. rot, SB, michelle ext. 07/12/22: HEP: Shoulder ER/IR /row/ext strengthening w/TBand . 08/05/22: HEP: C/S Isometric strengthening. 08/12/22: HEP: Shldr ER/IR TBand strengthening. 08/16/22: HEP: TBand shldr ER/IR/row/ext/chest press strengthening LTG Duration 08/30/22 progressed 08/16/22 (needing hand/elbow ex's) Progress Towards Goals Progress Comments Progressed HEP with increase resistance and issuance of Lev3 TB. Assessment Summary Assessment Pt improving with no c/o numbness/tingling in hand since last session. Pt tolerating increased resistance without c/o numbness tingling. Physical Therapy Plan Frequency and Duration Frequency of Treatment 2x/Week Plan of Care Start Date 07/01/22 Plan of Care End Date 08/30/22 Next Visit Focus/Plan Next Note Type Treatment Note Next Visit Plan Progress ex tolerance to RC and UE strengthening (UBE), and C/S stabilization. Add HEP: elbow strengthening with proper neck/shoulder posture. DC to HEP in 2-3 visits.
--- NOTE | 2022-08-22 09:44 | PT.OTN ---
Current Diagnoses Postural kyphosis, thoracic region (08/22/22) Muscle weakness (generalized) (08/22/22) Pain in left hand (08/22/22) Paresthesia of skin (08/22/22) Physical Therapy Treatment Note PT-OP-A Visit Information Start: 06/25/22 18:08 Freq: Status: Active Protocol: Document 08/22/22 09:01 AMB (Rec: 08/22/22 09:34 AMB [id number]) Out-Patient Physical Therapy Visit Information Visit Information Visit Type Treatment Note Visit Start Time 09:00 Visit Stop Time 09:45 Total Visit Minutes 45 Visit Number 9 PT-OP-B Current Condition Start: 06/25/22 18:08 Freq: Status: Active Protocol: Document 07/01/22 10:33 LRN (Rec: 07/01/22 12:17 LRN [id number]) Current Condition History of Current Condition Onset Date 2 yrs ago Current Complaints Numbness in L hand on first waking in bed. History of Current Condition Morning, after sleeping on R side, has numbness in the L hand when waking up in the morning that can turn into excruciating pain. Has tried different arm positions, but found if he draps L arm across the body and dangles it off the bed can sense an immediate relief of numbness and pain with linging residual pain. Notes his head may be very slighly bent to right and face forward. After getting up the numbness goes away. In studio apt uses walker when first getting out of bed to use bathroom. Normally walks without assistive. Using electric wheelchair while in therapy due to R hip pain with prolonged walking. Future Testing and Treatments Planned Nerve conductivity shows pinched nerve in L wrist and neck. Has been diagnosed with neuropathy. Developmental History Developmental History Back pain spine related. In electric wheelchair, but normally uses a walker for balance issues due to severe diabetic neuropathy. Treatment Goals Patient/Caregiver Goals Pt goal is to eliminate L hand numbness first in the morning . Pt agrees to an independent HEP of hand/UE/neck ex's. Current Functional Impairments (Reported) Functional Limitations- ADL's Lives at [facility]. Functional Limitations- Mobility/Gait Pt drives, Can walk w/o assistive device. Walks with a FWW first in the morning and uses Electric W/C for extended walking (75' or more) . Personal Factors Other Personal Factors That May Effect IDDM, Neuropathy diabetic, Therapy/Recovery ulcer R foot, partially controlled HBP, history of back/R hip pain. PT-OP-C Subjective Start: 06/25/22 18:08 Freq: Status: Active Protocol: Document 08/22/22 09:01 AMB (Rec: 08/22/22 09:34 AMB [id number]) OP-PT Subjective Patient Comments Patient Comments Hasn't had any sx in L hand in interim since last visit. Did wake up with numbness in the right hand today, no pain. Lasted 20 minutes when first getting up. PT-OP-H Neuro Start: 06/25/22 18:08 Freq: Status: Active Protocol: Document 07/01/22 10:33 LRN (Rec: 07/01/22 12:17 LRN [id number]) Sensation Evaluation Gross Sensation Gross Sensation WNL Coordination Evaluation Upper Extremity Tests Right Finger to Nose Test Minimal Impairment Left Finger to Nose Test Normal Performance Deep Tendon Reflex & Clonus Assessment Deep Tendon Reflex Right Tricep Deep Tendon Reflex 0 Absent Right Bicep Deep Tendon Reflex 0 Absent Left Tricep Deep Tendon Reflex 0 Absent Left Bicep Deep Tendon Reflex 0 Absent PT-OP-J Posture/Palpation/Skin Start: 06/25/22 18:08 Freq: Status: Active Protocol: Document 07/01/22 10:33 LRN (Rec: 07/01/22 12:17 LRN [id number]) Posture Evaluation Position Sitting Head/C-Spine Posture Forward Head T-Spine Posture Increased Kyphosis L-Spine Posture Flattened Shoulder Posture (L) Elevated Comments Posture Comments 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 Palpation Assessment Location L hand Palpation Location L hand thumb-index interossei Palpation Details Atrophy PT-OP-K Range of Motion Start: 06/25/22 18:08 Freq: Status: Active Protocol: Document 07/01/22 10:33 LRN (Rec: 07/01/22 12:17 LRN [id number]) Wrist Goniometric Range of Motion Wrist Right Flexion Active (degrees) 75 Extension Active (degrees) 65 Ulnar Deviation Active (degrees) 28 Radial Deviation Active (degrees) 15 Left Flexion Active (degrees) 80 Extension Active (degrees) 65 Ulnar Deviation Active (degrees) 30 Radial Deviation Active (degrees) 30 PT-OP-L Special Tests Start: 06/25/22 18:08 Freq: Status: Active Protocol: Document 07/08/22 13:22 LRN (Rec: 07/08/22 14:59 LRN [id number]) Special Tests Neural Special Tests- Upper Body Reverse Phalen's Test Results - L wrist Phalen's Test Results - L wrist Tinel Sign Test Results - L wrist Ulnar Nerve Tension Test Results + left Comments Tightness in L UE PT-OP-M Strength Start: 06/25/22 18:08 Freq: Status: Active Protocol: Document 07/01/22 10:33 LRN (Rec: 07/01/22 12:17 LRN [id number]) Cervical Spine Strength Cervical Spine Manual Muscle Testing Testing Position Sitting Comments Generally 5/5 Wrist Strength Wrist Manual Muscle Testing Right Comments Generally 5/5 Left Comments Generally 5/5 Hand Solid Surface Fabricator/Pinch Strength Hand Dominance Hand Dominance Right Hand Strength Left Comments Solid Surface Fabricator strength slightly less than R on squeeze test. PT-OP-Q Treatments Start: 06/25/22 18:08 Freq: Status: Active Protocol: Document 08/22/22 09:01 AMB (Rec: 08/22/22 09:34 AMB [id number]) Cardio Equipment Upper Body Ergometer (UBE) Duration (Minutes) 7 RPM 90 Seat Position 16 Height 2.5 Other Green back support. Fwd/bwd Therapeutic Exercises Sidelying Exercises Open book stretch Sidelying Exercise Name Open book stretch for upper thoracic rot Side bilateral Reps/Minutes 3-4 SH x 10 Sitting Exercises Chest Press Sitting Exercise Name Chest Press - unsupported Side bilateral Equipment Used Lev 3 TB Reps/Minutes 15x each TB Comments Cuing to not rub TB agaist neck Shoulder Ext Sitting Exercise Name Shoulder Ext - unsupported Side bilateral Equipment Used Lev 2 TB (orange) Reps/Minutes 15x 2 Comments Cued scapular depression/ retraction Row Sitting Exercise Name Row - unsupported Side bilateral Equipment Used Lev 2 TB (orange) Reps/Minutes 15x 2 Shoulder ER/IR strengthening Sitting Exercise Name Shoulder ER/IR - unsupported Side bilateral Resistance Lev 3 ([place]) Equipment Used towel roll under elbows to squeeze Reps/Minutes IR/ER: 15x each TB. Issued Lev3 TB for home Comments Cued to keep elbows in by sides. PT-OP-T Assessment and Plan Start: 06/25/22 18:08 Freq: Status: Active Protocol: Document 08/22/22 09:01 AMB (Rec: 08/22/22 09:34 AMB [id number]) Physical Therapy Assessment Goals Two Impairment L hand numbness first in the morning Short Term Goal (STG) Pt educated in proper sleeping postures. 07/08/22: Pt education in best sidelie sleeping posture on wedge, using pillows and supports to support L UE. STG Duration 07/15/22 (07/08/22: MET GOAL ) Snf Goal (LTG) Pt goal is to eliminate L hand numbness first in the morning . 08/05/22: Pt reporting has not had the numbness as much in the morning, is minor, almost negligible. Has numbness if leaning on elbow too long. 08/16/22: Past 2 days no numbness in hands on waking. 08/18/22: No numbness/tingling in hands on waking. LTG Duration 08/30/22 08/18/22: Progressed ?Goal met. One Impairment Lacks appriate self care HEP. Short Term Goal (STG) Nighttime splint for L wrist if + Phalen's Test or reverse Phalen's. 07/08/22: - Phalens' and Reverse Phalen's Test. STG Duration 08/05/22 (07/08/22: GOAL not appropriate due to -Test results) Snf Goal (LTG) Pt agrees to and independent HEP of hand/UE/neck ex's. 07/08/22: HEP: C. AROM stretch of C. rot, SB, michelle ext. 07/12/22: HEP: Shoulder ER/IR /row/ext strengthening w/TBand . 08/05/22: HEP: C/S Isometric strengthening. 08/12/22: HEP: Shldr ER/IR TBand strengthening. 08/16/22: HEP: TBand shldr ER/IR/row/ext/chest press strengthening LTG Duration 08/30/22 progressed 08/16/22 (needing hand/elbow ex's) Assessment Summary Assessment Pt with numbness lasting 20 minutes in R hand this morning , but no numbness in L hand. Tolerating exercises well. Physical Therapy Plan Frequency and Duration Frequency of Treatment 2x/Week Plan of Care Start Date 07/01/22 Plan of Care End Date 08/30/22 Therapeutic Interventions Therapeutic Interventions Home Exercise Program,Joint Mobilizations,Manual Therapy, Neuromuscular Re-education, Patient/Caregiver Education, Self-Care/Home Management,Soft Tissue Mobilization, Therapeutic Activities, Therapeutic Exercises Modalities Cold Pack/Ice Massage,Hot Packs Next Visit Focus/Plan Next Note Type Progress Note Next Visit Plan Progress ex tolerance to RC and UE strengthening (UBE), and C/S stabilization. Add HEP: elbow strengthening with proper neck/shoulder posture. DC to HEP in 2-3 visits.
--- NOTE | 2022-08-26 17:06 | PT.OTN ---
Current Diagnoses Postural kyphosis, thoracic region (08/26/22) Muscle weakness (generalized) (08/26/22) Pain in left hand (08/26/22) Paresthesia of skin (08/26/22) Physical Therapy Treatment Note PT-OP-A Visit Information Start: 06/25/22 18:08 Freq: Status: Active Protocol: Document 08/26/22 12:26 LRN (Rec: 08/26/22 13:16 LRN [id number]) Out-Patient Physical Therapy Visit Information Visit Information Visit Type Treatment Note Visit Start Time 12:26 Visit Stop Time 13:15 Total Visit Minutes 49 Visit Number 10 Evaluation Information Evaluation Date 07/01/22 Precautions Precautions Per PMH in system: Morbid Obesity, IDDM (pt reports type 2 diabetes), PVD, peripheral autonomic enuropathy, Toe amputation, Ulcer R foot, non- ST elevation myocardial infarction (NSTEMI), Fall history 12/2021 at home early in morning, slid off bed. PT-OP-B Current Condition Start: 06/25/22 18:08 Freq: Status: Active Protocol: Document 07/01/22 10:33 LRN (Rec: 07/01/22 12:17 LRN [id number]) Current Condition History of Current Condition Onset Date 2 yrs ago Current Complaints Numbness in L hand on first waking in bed. History of Current Condition Morning, after sleeping on R side, has numbness in the L hand when waking up in the morning that can turn into excruciating pain. Has tried different arm positions, but found if he draps L arm across the body and dangles it off the bed can sense an immediate relief of numbness and pain with linging residual pain. Notes his head may be very slighly bent to right and face forward. After getting up the numbness goes away. In studio apt uses walker when first getting out of bed to use bathroom. Normally walks without assistive. Using electric wheelchair while in therapy due to R hip pain with prolonged walking. Future Testing and Treatments Planned Nerve conductivity shows pinched nerve in L wrist and neck. Has been diagnosed with neuropathy. Developmental History Developmental History Back pain spine related. In electric wheelchair, but normally uses a walker for balance issues due to severe diabetic neuropathy. Treatment Goals Patient/Caregiver Goals Pt goal is to eliminate L hand numbness first in the morning . Pt agrees to an independent HEP of hand/UE/neck ex's. Current Functional Impairments (Reported) Functional Limitations- ADL's Lives at [facility] living. Functional Limitations- Mobility/Gait Pt drives, Can walk w/o assistive device. Walks with a FWW first in the morning and uses Electric W/C for extended walking (75' or more) . Personal Factors Other Personal Factors That May Effect IDDM, Neuropathy diabetic, Therapy/Recovery ulcer R foot, partially controlled HBP, history of back/R hip pain. PT-OP-C Subjective Start: 06/25/22 18:08 Freq: Status: Active Protocol: Document 08/26/22 12:26 LRN (Rec: 08/26/22 13:16 LRN [id number]) OP-PT Subjective Patient Comments Patient Comments Hasn't had any problems with the L hand and had 1 time numbness with the R hand on waking. PT-OP-H Neuro Start: 06/25/22 18:08 Freq: Status: Active Protocol: Document 07/01/22 10:33 LRN (Rec: 07/01/22 12:17 LRN [id number]) Sensation Evaluation Gross Sensation Gross Sensation WNL Coordination Evaluation Upper Extremity Tests Right Finger to Nose Test Minimal Impairment Left Finger to Nose Test Normal Performance Deep Tendon Reflex & Clonus Assessment Deep Tendon Reflex Right Tricep Deep Tendon Reflex 0 Absent Right Bicep Deep Tendon Reflex 0 Absent Left Tricep Deep Tendon Reflex 0 Absent Left Bicep Deep Tendon Reflex 0 Absent PT-OP-J Posture/Palpation/Skin Start: 06/25/22 18:08 Freq: Status: Active Protocol: Document 07/01/22 10:33 LRN (Rec: 07/01/22 12:17 LRN [id number]) Posture Evaluation Position Sitting Head/C-Spine Posture Forward Head T-Spine Posture Increased Kyphosis L-Spine Posture Flattened Shoulder Posture (L) Elevated Comments Posture Comments 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 Palpation Assessment Location L hand Palpation Location L hand thumb-index interossei Palpation Details Atrophy PT-OP-K Range of Motion Start: 06/25/22 18:08 Freq: Status: Active Protocol: Document 07/01/22 10:33 LRN (Rec: 07/01/22 12:17 LRN [id number]) Wrist Goniometric Range of Motion Wrist Right Flexion Active (degrees) 75 Extension Active (degrees) 65 Ulnar Deviation Active (degrees) 28 Radial Deviation Active (degrees) 15 Left Flexion Active (degrees) 80 Extension Active (degrees) 65 Ulnar Deviation Active (degrees) 30 Radial Deviation Active (degrees) 30 PT-OP-L Special Tests Start: 06/25/22 18:08 Freq: Status: Active Protocol: Document 07/08/22 13:22 LRN (Rec: 07/08/22 14:59 LRN [id number]) Special Tests Neural Special Tests- Upper Body Reverse Phalen's Test Results - L wrist Phalen's Test Results - L wrist Tinel Sign Test Results - L wrist Ulnar Nerve Tension Test Results + left Comments Tightness in L UE PT-OP-M Strength Start: 06/25/22 18:08 Freq: Status: Active Protocol: Document 07/01/22 10:33 LRN (Rec: 07/01/22 12:17 LRN [id number]) Cervical Spine Strength Cervical Spine Manual Muscle Testing Testing Position Sitting Comments Generally 5/5 Wrist Strength Wrist Manual Muscle Testing Right Comments Generally 5/5 Left Comments Generally 5/5 Hand Chrome Tanner/Pinch Strength Hand Dominance Hand Dominance Right Hand Strength Left Comments Chrome Tanner strength slightly less than R on squeeze test. PT-OP-Q Treatments Start: 06/25/22 18:08 Freq: Status: Active Protocol: Document 08/26/22 12:26 LRN (Rec: 08/26/22 13:16 LRN [id number]) Cardio Equipment Upper Body Ergometer (UBE) Duration (Minutes) 8 RPM 90 Seat Position 15 Height 2.5 Other Green back support. Fwd/bwd Therapeutic Exercises Sitting Exercises Elbow flex/ext Sitting Exercise Name Elbow flex/ext Side bilateral Equipment Used Lev 2 TB (orange) Reps/Minutes 15x Comments Extra time needed to determine max tolerated resistance & hand positioning Chest Press Sitting Exercise Name Chest Press - unsupported Side bilateral Equipment Used Lev 3 TB ([place]) Reps/Minutes 15x 1 Comments Cuing to not rub TB agaist neck Shoulder Ext Sitting Exercise Name Shoulder Ext - unsupported Side bilateral Equipment Used Lev 3 TB ([place]) Reps/Minutes 15x 1 Comments Cued scapular depression/ retraction Row Sitting Exercise Name Row - unsupported Side bilateral Equipment Used Lev 3 TB ([place]) Reps/Minutes 15x Comments Cued scapular retraction Shoulder ER/IR strengthening Sitting Exercise Name Shoulder ER/IR - unsupported Side bilateral Resistance Lev 3 ([place] Equipment Used towel roll under elbows to squeeze Reps/Minutes IR/ER: 15x 2 each TB. Issued Lev3 TB for home Comments Cued to keep elbows in by sides. Self-Care/Home Management Treatment Education Patient Education Home Exercise Program Activities Self-Care/Home Management Activities Reviewed and issued HEP of elbow curls and ext. PT-OP-T Assessment and Plan Start: 06/25/22 18:08 Freq: Status: Active Protocol: Document 08/26/22 12:26 LRN (Rec: 08/26/22 13:16 LRN [id number]) Physical Therapy Assessment Goals Two Impairment L hand numbness first in the morning Short Term Goal (STG) Pt educated in proper sleeping postures. 07/08/22: Pt education in best sidelie sleeping posture on wedge, using pillows and supports to support L UE. STG Duration 07/15/22 (07/08/22: MET GOAL ) Auto Bumper Straightener Goal (LTG) Pt goal is to eliminate L hand numbness first in the morning . 08/05/22: Pt reporting has not had the numbness as much in the morning, is minor, almost negligible. Has numbness if leaning on elbow too long. 08/16/22: Past 2 days no numbness in hands on waking. 08/18/22: No numbness/tingling in hands on waking. 08/26/22: R hand 1 time numbness yesterday. No L hand numbness for past 2 weeks. LTG Duration 08/30/22 08/18/22: Progressed ?Goal met. One Impairment Lacks appriate self care HEP. Short Term Goal (STG) Nighttime splint for L wrist if + Phalen's Test or reverse Phalen's. 07/08/22: - Phalens' and Reverse Phalen's Test. STG Duration 08/05/22 (07/08/22: GOAL not appropriate due to -Test results) Residential Goal (LTG) Pt agrees to and independent HEP of hand/UE/neck ex's. 07/08/22: HEP: C. AROM stretch of C. rot, SB, michelle ext. 07/12/22: HEP: Shoulder ER/IR /row/ext strengthening w/TBand . 08/05/22: HEP: C/S Isometric strengthening. 08/12/22: HEP: Shldr ER/IR TBand strengthening. 08/16/22: HEP: TBand shldr ER/IR/row/ext/chest press strengthening. 08/26/22: HEP: Elbow strengthening. LTG Duration 08/30/22 (08/26/22: MET GOAL ) Progress Towards Goals Progress Comments Goal # 1 MET. Assessment Summary Assessment Completed pt's neck/shoulder home stab program. No hand ex 's needed due to -Phalen's and Reverse Phalen's Test; therefore LTG # 1 was met. Pt needing extra cuing for hand placement with new ex's. Physical Therapy Plan Frequency and Duration Frequency of Treatment 2x/Week Plan of Care Start Date 07/01/22 Plan of Care End Date 08/30/22 Next Visit Focus/Plan Next Note Type Treatment Note Next Visit Plan Assess for DC. HEP: RC and UE strengthening and C/S stabilization. Progress UBE. Review: elbow strengthening with proper neck/shoulder posture. DC to HEP pt remains symptom free, otherwise new POC needed .
--- NOTE | 2022-08-30 17:51 | PT.OTN ---
Current Diagnoses Postural kyphosis, thoracic region (08/30/22) Muscle weakness (generalized) (08/30/22) Pain in left hand (08/30/22) Paresthesia of skin (08/30/22) Physical Therapy Treatment Note PT-OP-A Visit Information Start: 06/25/22 18:08 Freq: Status: Active Protocol: Document 08/30/22 13:57 LRN (Rec: 08/30/22 14:45 LRN [id number]) Out-Patient Physical Therapy Visit Information Visit Information Visit Type Treatment Note Visit Start Time 13:57 Visit Stop Time 14:39 Total Visit Minutes 42 Visit Number 11 PT-OP-B Current Condition Start: 06/25/22 18:08 Freq: Status: Active Protocol: Document 07/01/22 10:33 LRN (Rec: 07/01/22 12:17 LRN [id number]) Current Condition History of Current Condition Onset Date 2 yrs ago Current Complaints Numbness in L hand on first waking in bed. History of Current Condition Morning, after sleeping on R side, has numbness in the L hand when waking up in the morning that can turn into excruciating pain. Has tried different arm positions, but found if he draps L arm across the body and dangles it off the bed can sense an immediate relief of numbness and pain with linging residual pain. Notes his head may be very slighly bent to right and face forward. After getting up the numbness goes away. In studio apt uses walker when first getting out of bed to use bathroom. Normally walks without assistive. Using electric wheelchair while in therapy due to R hip pain with prolonged walking. Future Testing and Treatments Planned Nerve conductivity shows pinched nerve in L wrist and neck. Has been diagnosed with neuropathy. Developmental History Developmental History Back pain spine related. In electric wheelchair, but normally uses a walker for balance issues due to severe diabetic neuropathy. Treatment Goals Patient/Caregiver Goals Pt goal is to eliminate L hand numbness first in the morning . Pt agrees to an independent HEP of hand/UE/neck ex's. Current Functional Impairments (Reported) Functional Limitations- ADL's Lives at [facility]. Functional Limitations- Mobility/Gait Pt drives, Can walk w/o assistive device. Walks with a FWW first in the morning and uses Electric W/C for extended walking (75' or more) . Personal Factors Other Personal Factors That May Effect IDDM, Neuropathy diabetic, Therapy/Recovery ulcer R foot, partially controlled HBP, history of back/R hip pain. PT-OP-C Subjective Start: 06/25/22 18:08 Freq: Status: Active Protocol: Document 08/30/22 13:57 LRN (Rec: 08/30/22 14:45 LRN [id number]) OP-PT Subjective Patient Comments Patient Comments No numbness/tingling in L hand since last visit. Patient Questionnaires Quick Dash- Upper Extremity Quick Dash UE Score 22.7 Quick Dash UE Impairment 20 to 39% Impaired (Score 20- 39) PT-OP-H Neuro Start: 06/25/22 18:08 Freq: Status: Active Protocol: Document 07/01/22 10:33 LRN (Rec: 07/01/22 12:17 LRN [id number]) Sensation Evaluation Gross Sensation Gross Sensation WNL Coordination Evaluation Upper Extremity Tests Right Finger to Nose Test Minimal Impairment Left Finger to Nose Test Normal Performance Deep Tendon Reflex & Clonus Assessment Deep Tendon Reflex Right Tricep Deep Tendon Reflex 0 Absent Right Bicep Deep Tendon Reflex 0 Absent Left Tricep Deep Tendon Reflex 0 Absent Left Bicep Deep Tendon Reflex 0 Absent PT-OP-J Posture/Palpation/Skin Start: 06/25/22 18:08 Freq: Status: Active Protocol: Document 07/01/22 10:33 LRN (Rec: 07/01/22 12:17 LRN [id number]) Posture Evaluation Position Sitting Head/C-Spine Posture Forward Head T-Spine Posture Increased Kyphosis L-Spine Posture Flattened Shoulder Posture (L) Elevated Comments Posture Comments 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 Palpation Assessment Location L hand Palpation Location L hand thumb-index interossei Palpation Details Atrophy PT-OP-K Range of Motion Start: 06/25/22 18:08 Freq: Status: Active Protocol: Document 07/01/22 10:33 LRN (Rec: 07/01/22 12:17 LRN [id number]) Wrist Goniometric Range of Motion Wrist Right Flexion Active (degrees) 75 Extension Active (degrees) 65 Ulnar Deviation Active (degrees) 28 Radial Deviation Active (degrees) 15 Left Flexion Active (degrees) 80 Extension Active (degrees) 65 Ulnar Deviation Active (degrees) 30 Radial Deviation Active (degrees) 30 PT-OP-L Special Tests Start: 06/25/22 18:08 Freq: Status: Active Protocol: Document 07/08/22 13:22 LRN (Rec: 07/08/22 14:59 LRN [id number]) Special Tests Neural Special Tests- Upper Body Reverse Phalen's Test Results - L wrist Phalen's Test Results - L wrist Tinel Sign Test Results - L wrist Ulnar Nerve Tension Test Results + left Comments Tightness in L UE PT-OP-M Strength Start: 06/25/22 18:08 Freq: Status: Active Protocol: Document 07/01/22 10:33 LRN (Rec: 07/01/22 12:17 LRN [id number]) Cervical Spine Strength Cervical Spine Manual Muscle Testing Testing Position Sitting Comments Generally 5/5 Wrist Strength Wrist Manual Muscle Testing Right Comments Generally 5/5 Left Comments Generally 5/5 Hand Mainspring Strip Inspector/Pinch Strength Hand Dominance Hand Dominance Right Hand Strength Left Comments Mainspring Strip Inspector strength slightly less than R on squeeze test. PT-OP-Q Treatments Start: 06/25/22 18:08 Freq: Status: Active Protocol: Document 08/30/22 13:57 LRN (Rec: 08/30/22 14:45 LRN [id number]) Cardio Equipment Upper Body Ergometer (UBE) Duration (Minutes) 9 RPM 90 Seat Position 15 Height 3.0 Other Green back support. Fwd/bwd Therapeutic Exercises Sitting Exercises Neck Elongation Sitting Exercise Name Neck Elongation review through all ex's C. Leonie Sitting Exercise Name Leonie SB and rot Side bilateral Reps/Minutes 5 SH x 2 Elbow flex/ext Sitting Exercise Name Elbow flex/ext Side bilateral Equipment Used Lev 2 TB (orange) Reps/Minutes 15x Comments Extra time needed to determine max tolerated resistance & hand positioning Chest Press Sitting Exercise Name Chest Press - unsupported Side bilateral Equipment Used Lev 3 TB ([place]) Reps/Minutes 15x 1 Comments Cuing to not rub TB agaist neck Shoulder Ext Sitting Exercise Name Shoulder Ext - unsupported Side bilateral Equipment Used Lev 3 TB ([place]) Reps/Minutes 15x 2 Comments Cued scapular depression/ retraction Row Sitting Exercise Name Row - unsupported Side bilateral Equipment Used Lev 3 TB ([place]) Reps/Minutes 15x 2 Comments Cued scapular retraction Shoulder ER/IR strengthening Sitting Exercise Name Shoulder ER/IR - unsupported Side bilateral Resistance Lev 3 ([place]) Equipment Used towel roll under elbows to squeeze Reps/Minutes IR/ER: 15x 2 each TB. Issued Lev3 TB for home Comments Cued to keep elbows in by sides. C. AROM Sitting Exercise Name Active C. Rotation, SB, & Neutral>Extension Side bilateral Reps/Minutes 2x each Self-Care/Home Management Treatment Education Patient Education Home Exercise Program Activities Self-Care/Home Management Activities Consolidated and did quick review of HEP handouts. PT-OP-T Assessment and Plan Start: 06/25/22 18:08 Freq: Status: Active Protocol: Document 08/30/22 13:57 LRN (Rec: 08/30/22 14:45 LRN [id number]) Physical Therapy Assessment Goals Two Impairment L hand numbness first in the morning Short Term Goal (STG) Pt educated in proper sleeping postures. 07/08/22: Pt education in best sidelie sleeping posture on wedge, using pillows and supports to support L UE. STG Duration 07/15/22 (07/08/22: MET GOAL ) Prison Goal (LTG) Pt goal is to eliminate L hand numbness first in the morning . 08/05/22: Pt reporting has not had the numbness as much in the morning, is minor, almost negligible. Has numbness if leaning on elbow too long. 08/16/22: Past 2 days no numbness in hands on waking. 08/18/22: No numbness/tingling in hands on waking. 08/26/22: R hand 1 time numbness yesterday. No L hand numbness for past 2 weeks. LTG Duration 08/30/22 (08/30/22: MET GOAL) One Impairment Lacks appriate self care HEP. Short Term Goal (STG) Nighttime splint for L wrist if + Phalen's Test or reverse Phalen's. 07/08/22: - Phalens' and Reverse Phalen's Test. STG Duration 08/05/22 (07/08/22: GOAL not appropriate due to -Test results) Engineer System Administrator Goal (LTG) Pt agrees to and independent HEP of hand/UE/neck ex's. 07/08/22: HEP: C. AROM stretch of C. rot, SB, leonie ext. 07/12/22: HEP: Shoulder ER/IR /row/ext strengthening w/TBand . 08/05/22: HEP: C/S Isometric strengthening. 08/12/22: HEP: Shldr ER/IR TBand strengthening. 08/16/22: HEP: TBand shldr ER/IR/row/ext/chest press strengthening. 08/26/22: HEP: Elbow strengthening. LTG Duration 08/30/22 (08/26/22: MET GOAL ) Assessment Summary Assessment Pt was able to demonstrate good knowledge of HEP with use of handouts except elbow flex /ext needed more review before good awarenss of ex was shown . Goals met, pt is ready for discharge to [facility]. Physical Therapy Plan Discharge Physical Therapy Discharge Reasons Goals Met Discharge Comments Pt is to continue to work on proper posturing of head on shoulders during day and for sleeping. Thank you for your referral. Next Visit Focus/Plan Next Note Type Treatment Note
== END 2022-08-31 09:50 | disposition home or self-care (01) ==
LOC: PHYS 14:00
PROVIDERS: Absent Provider Internal Medicine; Family Provider Nurse Practitioner Family; PCP Nurse Practitioner Family; Referring Provider Nurse Practitioner Family; Visit Provider Nurse Practitioner Family
DX: M79.642 Pain in left hand (principal); R20.2 Paresthesia of skin; M40.04 Postural kyphosis, thoracic region; M62.81 Muscle weakness (generalized)
CPT/HCPCS: 97110; 97140; 97161; 97530; 97535

== ENCOUNTER → 2022-08-31 07:21 | Outpatient (ROUT) | payer MEDICARE, MEDICAID, SELFPAY ==
[2022-01-16 17:44] VITALS: BMI 45.3
[2022-08-31 07:47] LABS: Hematocrit 28.6 % (41-53); Hemoglobin 9.8 g/dL (13.5-17.5)
[2022-08-31 09:05] LABS: Folate > 20.0 ng/mL (2.76-20.0)
== END ==
PROVIDERS: Family Provider Nurse Practitioner Family; PCP Nurse Practitioner Family; Visit Provider Nurse Practitioner Family
DX: D64.9 Anemia, unspecified (principal)
CPT/HCPCS: 36415; 82746; 85014; 85018

== ENCOUNTER → 2022-08-31 09:24 | Outpatient (CLI) | payer MEDICARE, MEDICAID, SELFPAY ==
[2022-01-16 17:44] VITALS: BMI 45.3
== END ==
PROVIDERS: Family Provider Nurse Practitioner Family; PCP Nurse Practitioner Family; Referring Provider Podiatrist; Visit Provider Surgery
DX: D64.9 Anemia, unspecified (principal); E11.621 Type 2 diabetes mellitus with foot ulcer; L97.512 Non-pressure chronic ulcer of other part of right foot with fat layer exposed; L97.511 Non-pressure chronic ulcer of other part of right foot limited to breakdown of skin; L84 Corns and callosities; E11.40 Type 2 diabetes mellitus with diabetic neuropathy, unspecified
CPT/HCPCS: 11042; 36415; 82746; 85014; 85018

== ENCOUNTER → 2022-09-02 13:52 | Outpatient (CLI) | payer MEDICARE, MEDICAID, SELFPAY ==
[2022-01-16 17:44] VITALS: BMI 45.3
== END ==
PROVIDERS: Family Provider Nurse Practitioner Family; PCP Nurse Practitioner Family; Referring Provider Nurse Practitioner Family; Visit Provider Physician Assistant
DX: E11.621 Type 2 diabetes mellitus with foot ulcer (principal); L97.512 Non-pressure chronic ulcer of other part of right foot with fat layer exposed
CPT/HCPCS: 29445

== ENCOUNTER → 2022-09-07 09:39 | Outpatient (CLI) | payer MEDICARE, MEDICAID, SELFPAY ==
[2022-01-16 17:44] VITALS: BMI 45.3
== END ==
PROVIDERS: Family Provider Nurse Practitioner Family; PCP Nurse Practitioner Family; Referring Provider Podiatrist; Visit Provider Surgery
DX: E11.621 Type 2 diabetes mellitus with foot ulcer (principal); L97.412 Non-pressure chronic ulcer of right heel and midfoot with fat layer exposed; L97.511 Non-pressure chronic ulcer of other part of right foot limited to breakdown of skin; E11.40 Type 2 diabetes mellitus with diabetic neuropathy, unspecified
CPT/HCPCS: 99212; 99213

== ENCOUNTER → 2022-09-21 09:40 | Outpatient (CLI) | payer MEDICARE, MEDICAID, SELFPAY ==
[2022-01-16 17:44] VITALS: BMI 45.3
== END ==
PROVIDERS: Family Provider Nurse Practitioner Family; PCP Nurse Practitioner Family; Referring Provider Podiatrist; Visit Provider Surgery
DX: S91.301D Unspecified open wound, right foot, subsequent encounter (principal)
CPT/HCPCS: 99211

== ENCOUNTER → 2022-11-08 09:22 | Outpatient (CLI) | payer MEDICARE, MEDICAID, SELFPAY ==
[2022-01-16 17:44] VITALS: BMI 45.3
== END ==
PROVIDERS: Family Provider Nurse Practitioner Family; PCP Nurse Practitioner Family; Referring Provider Podiatrist; Visit Provider Surgery
DX: E11.621 Type 2 diabetes mellitus with foot ulcer (principal); E11.42 Type 2 diabetes mellitus with diabetic polyneuropathy; L97.412 Non-pressure chronic ulcer of right heel and midfoot with fat layer exposed; L84 Corns and callosities; M14.671 Charcot's joint, right ankle and foot; M62.81 Muscle weakness (generalized); R26.9 Unspecified abnormalities of gait and mobility
CPT/HCPCS: 11042; 99213; 99214

== ENCOUNTER → 2022-11-09 07:16 | Outpatient (ROUT) | payer MEDICARE, MEDICAID, SELFPAY ==
[2022-01-16 17:44] VITALS: BMI 45.3
[2022-11-09 07:48] LABS: Add Manual Diff / Slide Review NO; Basophils Absolute Auto 0 /uL (0-100); Basophils Percent Auto 0.7 % (0-2); Eosinophils Absolute Auto 900 /uL (0-450); Eosinophils Percent Auto 12.6 % (2-4); Hematocrit 28.2 % (41-53); Hemoglobin 9.7 g/dL (13.5-17.5); Lymphocytes Absolute Auto 2400 /uL (1100-4500); Lymphocytes Percent Auto 35.3 % (25-40); Mean Corpuscular HGB Conc 34.4 % (30-36); Mean Corpuscular Hemoglobin 31.2 PG (26-34); Mean Corpuscular Volume 90.9 fL (80-100); Monocytes Absolute Auto 500 /uL (0-900); Monocytes Percent Auto 6.7 % (3-14); Neutrophils Absolute Auto 3100 /uL (1500-7000); Neutrophils Percent Auto 44.7 % (50-75); Platelet Count 147 X10^3/uL (150-400); Red Cell Distribution Width 14.7 % (11.6-14.8); White Blood Cell Count 6.9 X10^3/uL (4.5-11.0)
[2022-11-09 08:16] LABS: BUN Creatinine Ratio 30.3 (6-22); Blood Urea Nitrogen 27 mg/dL (9-20); Carbon Dioxide 30 mmol/L (22-32); Chloride 101 mmol/L (98-107); Estimated Glomerular Filt Rate > 60 mL/min (>60); Glucose 147 mg/dL (80-110); HEMOLYSIS < 15 (0-50); Potassium 4.5 mmol/L (3.4-5.1); Sodium 137 mmol/L (137-145)
[2022-11-09 09:03] LABS: Vitamin B12 998 pg/mL (239-931)
[2022-11-09 09:16] LABS: Hemoglobin A1C% w Est Avg Glu 5.8 % (4.0-6.0)
== END ==
PROVIDERS: Family Provider Nurse Practitioner Family; PCP Nurse Practitioner Family; Visit Provider Nurse Practitioner Family
DX: D64.9 Anemia, unspecified (principal); E11.9 Type 2 diabetes mellitus without complications
CPT/HCPCS: 36415; 80048; 82607; 83036; 85025

== ENCOUNTER → 2022-11-11 10:19 | Outpatient (CLI) | payer MEDICARE, MEDICAID, SELFPAY ==
[2022-01-16 17:44] VITALS: BMI 45.3
== END ==
PROVIDERS: Family Provider Nurse Practitioner Family; PCP Nurse Practitioner Family; Referring Provider Podiatrist; Visit Provider Physician Assistant
DX: E11.621 Type 2 diabetes mellitus with foot ulcer (principal); L97.512 Non-pressure chronic ulcer of other part of right foot with fat layer exposed; L84 Corns and callosities
CPT/HCPCS: 29445

== ENCOUNTER → 2022-11-16 09:26 | Outpatient (CLI) | payer MEDICARE, MEDICAID, SELFPAY ==
[2022-01-16 17:44] VITALS: BMI 45.3
== END ==
PROVIDERS: Family Provider Nurse Practitioner Family; PCP Nurse Practitioner Family; Referring Provider Podiatrist; Visit Provider Surgery
DX: L97.412 Non-pressure chronic ulcer of right heel and midfoot with fat layer exposed (principal); E11.621 Type 2 diabetes mellitus with foot ulcer; E11.42 Type 2 diabetes mellitus with diabetic polyneuropathy
CPT/HCPCS: 99212; 99213

== ENCOUNTER → 2022-11-30 10:34 | Outpatient (CLI) | payer MEDICARE, MEDICAID, SELFPAY ==
[2022-01-16 17:44] VITALS: BMI 45.3
== END ==
LOC: WC 10:34
PROVIDERS: Family Provider Nurse Practitioner Family; PCP Nurse Practitioner Family; Referring Provider Podiatrist; Visit Provider Surgery
DX: E11.621 Type 2 diabetes mellitus with foot ulcer (principal); L97.412 Non-pressure chronic ulcer of right heel and midfoot with fat layer exposed; E11.40 Type 2 diabetes mellitus with diabetic neuropathy, unspecified; M14.671 Charcot's joint, right ankle and foot
CPT/HCPCS: 99212; 99213

== ENCOUNTER 2022-12-29 08:08 | Inpatient (IN) | payer MEDICARE, MEDICAID, SELFPAY ==
[2022-01-16 17:44] VITALS: BMI 45.3
[2022-12-29] VITALS (28 sets, daily range): BP systolic 115–168; BP diastolic 48–98; PULSE 68–78; RESP 9–18; TEMP 36–37; O2SAT 93–100; BMI 39.4
--- NOTE | 2022-12-29 08:14 | DI.CT.S_ITS ---
PROCEDURE: CT STROKE INDICATIONS: Left-sided weakness TECHNIQUE: Noncontrast 4.5 mm thick angled axial sections acquired from the foramen magnum to the vertex, with coronal reformats. For radiation dose reduction, the following was used: automated exposure control, adjustment of mA and/or kV according to patient size. COMPARISON: None. FINDINGS: Image quality: There are motion artifacts. CSF spaces: Basal cisterns are patent. No extra-axial fluid collections. The ventricles are symmetric in size and shape. Brain: No intracranial bleeds or masses. There is cerebral volume loss for age, with resultant ventricular and sulcal prominence. There are periventricular and deep white matter chronic small vessel ischemic changes. There is intracranial internal carotid artery atherosclerosis. Skull and face: Calvarium and visualized facial bones appear intact, without suspicious lesions. Sinuses: Visualized sinuses and mastoids are clear. IMPRESSION: 1. No acute intracranial abnormalities. The result was discussed with Dr. Bradford in ER. This study fulfills neurological imaging criteria for inclusion or exclusion of acute stroke therapies based on available published neurological guidelines. Dictated by: Kusum Thakkar M.D. on 12/29/2022 at 8:32 Approved by: Kusum Thakkar M.D. on 12/29/2022 at 8:36
--- NOTE | 2022-12-29 08:16 | ED.NEUROSD ---
HPI - Neuro Symptoms/Deficit General Chief Complaint: Neuro Symptoms/Deficit Stated Complaint: altered mental status Time Seen by Provider: 12/29/22 08:14 History of Present Illness HPI Narrative: Code stroke called at 8:14 a.m.. Patient last well-known 6:30 a.m. today. Blood sugar 125 by EMS. Patient brought in from [facility]. Was eating breakfast and started behaving confused. EMS states he is leaning towards the left. Patient is only able to say his name and date of at this time. According to intermediate staff he is usually awake alert oriented x4 and very functional and independent and drives himself to appointments. No fall or injury. Fast exam does show weakness on the left arm and left leg. No facial droop. Related Data Home Medications Medication Instructions Recorded Confirmed gabapentin 800 mg tablet 1,200 mg PO TID ##0 10/07/12 12/29/22 furosemide 80 mg tablet 40 mg PO BID ##0 10/15/15 12/29/22 enalapril maleate 20 mg tablet 20 mg PO Q DAY ##0 03/06/16 12/29/22 primidone 50 mg tablet 250 tab PO BID 02/07/18 12/29/22 multivitamin 1 cap PO DAILY 11/02/18 12/29/22 vitamin B complex 1 cap PO DAILY 11/02/18 12/29/22 insulin glargine 100 unit/mL (3 See Rx Instructions .Route .COMPLEX 01/16/22 12/29/22 mL) subcutaneous pen (Lantus Solostar U-100 Insulin) pantoprazole 40 mg tablet,delayed 40 mg PO DAILY 01/16/22 12/29/22 release Previous Rx's Medication Instructions Recorded acetaminophen 325 mg tablet 650 mg (2 x 325 mg) PO Q6H PRN 12/30/22 Fever/Mild Pain (1-3) #60 tabs lactulose 10 gram/15 mL oral 20 g (30 mL) PO DAILY 30 days #946 12/30/22 solution mL levofloxacin 750 mg tablet 750 mg PO DAILY #4 tabs 12/30/22 oxycodone 5 mg tablet 5 mg PO Q6H PRN Pain, Moderate 12/30/22 (4-6) #25 tabs Allergies Allergy/AdvReac Type Severity Reaction Status Date / Time amoxicillin [From AUGMENTIN] AdvReac Mild UPSET Verified 01/17/22 11:34 STOMACH clavulanic acid AdvReac Mild UPSET Verified 01/17/22 11:35 [From AUGMENTIN] STOMACH Review of Systems Review of Systems Narrative: GENERAL: negative chills, fatigue, malaise, fever, sweats. HEENT: negative sinus pain, ear pain, sore throat RESPIRATORY: negative dyspnea, cough CARDIOVASCULAR: negative chest pain, palpitations GASTROINTESTINAL: negative nausea, vomiting, abdominal pain : negative dysuria, frequency, hematuria MUSCULOSKELETAL: negative muscle or bony pain SKIN: negative rash, skin lesions NEUROLOGIC: Positive altered mental status as well as weakness, no slurred speech no facial droop ROS Unobtainable: All systems reviewed & are unremarkable except as noted in HPI and below Patient History Medical History (Updated 12/29/22 @ 10:13 by Stephen Bradford MD) History of non-ST elevation myocardial infarction (NSTEMI) AGATHA treated with BiPAP Severe muscle deconditioning Sedentary lifestyle Closed non-physeal fracture of proximal phalanx of great toe with malunion Chronic ulcer of right foot limited to breakdown of skin Insulin dependent diabetes mellitus Peripheral vascular disease Hypertension Depression Toe amputation status Peripheral autonomic neuropathy Sepsis (02/27/17) Cellulitis (02/27/17) Sleep apnea MRSA (methicillin resistant Staphylococcus aureus) (02/27/17) Visit for wound care Essential tremor Thrombocytopenia Morbid obesity Polypharmacy Diabetes Surgical History (Updated 01/16/22 @ 21:04 by CARLOS A FranklinBEAU) History of amputation of lesser toe of right foot Family History Father Cancer Congestive heart failure Mother Cancer Social History household members: none Smoking Status: Never smoker alcohol intake: current Smoking Status: Never smoker alcohol intake frequency: other Substance Use Type: does not use Exam Narrative Exam Narrative: GENERAL: in no distress, not toxic not dyspneic HEAD: Normocephalic. EYES: Pupils equal round no pinpoint pupils ENT: Mucous membranes moist. NECK: Trachea midline. CARDIOVASCULAR: Regular rate and rhythm RESPIRATORY: Clear to auscultation. Breath sounds equal bilaterally. No wheezes, rales, or rhonchi. GASTROINTESTINAL: Abdomen soft, non-tender EXTREMITIES: No gross deformities. BACK: No flank tenderness. NEURO: Clear speech no facial droop patient only able to state his name and date of . 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 Not able to do affgnc-[id number] bilaterally or jlqx-wj-[id number] bilaterally. Weak left leg lift compared to the right. SKIN: Warm and dry PSYCH: Not anxious, is cooperative Initial Vital Signs Initial Vital Signs: Vital Signs Temperature 97.7 F 12/29/22 08:15 Pulse Rate 78 12/29/22 08:15 Respiratory Rate 18 12/29/22 08:15 Blood Pressure 163/98 H 12/29/22 08:15 Pulse Oximetry 99 12/29/22 08:15 Oxygen Delivery Method Room Air 12/29/22 08:15 Scores NIH Stroke Scale Level of Conciousness: Alert, keenly responsive Ask month/age: Answers one question correctly, intubated follow commands Open/close eyes, close hand: Performs both tasks correctly Best gaze horizontal: Normal Visual han: No visual loss Facial palsy: Normal symetrical movement Left arm drift: Drifts down, not to bed Right arm drift: No drift for full 10 sec Left leg drift: Drifts down, not to bed Right leg drift: No drift for full 5 sec Limb ataxia: Present in two limbs Sensory on face/arms/legs: Normal, no sensory loss Best language: Mild to moderate, slurs some words Dysarthria: Normal Extinction or inattention: No abnormality Total NIH Stroke scale score: 6 Course Orders Ordered: Discontinued Medications Acetaminophen (Acetaminophen 325 Mg Tablet) 650 mg PO Q6H PRN PRN Reason: Fever/Mild Pain (1-3) Last Admin: 12/30/22 08:50 Dose: 650 mg Documented By: JENNIFER Enoxaparin Sodium (Enoxaparin 40 Mg/0.4 Ml Syringe) 40 mg SUBCUT DAILY RIK Last Admin: 12/30/22 08:50 Dose: 40 mg Documented By: JENNIFER Sodium Chloride (Normal Saline 0.9%) 1,000 mls @ 1,000 mls/hr IV BOLUS ONE Stop: 12/29/22 09:13 Last Infusion: 12/29/22 12:17 Dose: Infused Documented By: Admin: 12/29/22 10:38 Dose: 1,000 mls/hr Documented By: GINI Sodium Chloride (Normal Saline 0.9%) 1,000 mls @ 1,000 mls/hr IV BOLUS ONE Stop: 12/29/22 11:39 Last Infusion: 12/29/22 14:00 Dose: Infused Documented By: Admin: 12/29/22 12:21 Dose: 1,000 mls/hr Documented By: FRANCIS Dextrose (D10w) 100 mls @ 1,200 mls/hr IV PRN PRN PRN Reason: Hypoglycemia Insulin Glargine (Insulin Glargine 100 Unit/Ml 3ml Pen) 10 unit SUBCUT 2100 [facility] Last Admin: 12/29/22 20:41 Dose: 10 unit Documented By: BLESSING Co-signed By: Insulin Glargine (Insulin Glargine 100 Unit/Ml 3ml Pen) 40 unit SUBCUT 0800 [facility] Last Admin: 12/30/22 08:55 Dose: 40 unit Documented By: JENNIFER Co-signed By: HAROON Insulin Human Lispro (Insulin Lispro 100 Unit/Ml 3ml Vial) 0 unit SUBCUT ACHS [facility]; Protocol Last Admin: 12/30/22 11:58 Dose: 100 unit Documented By: JENNIFER Co-signed By: HAROON Admin: 12/30/22 07:57 Dose: Not Given Documented By: Admin: 12/29/22 20:41 Dose: Not Given Documented By: Admin: 12/29/22 16:43 Dose: Not Given Documented By: LUCRETIAW Lactulose (Lactulose 20 Gm/30 Ml Solution) 20 gm PO BID [facility] Last Admin: 12/30/22 09:05 Dose: Not Given Documented By: Admin: 12/29/22 20:36 Dose: 20 gm Documented By: Admin: 12/29/22 16:16 Dose: 20 gm Documented By: LUCRETIAW Levofloxacin (Levofloxacin 250 Mg Tablet) 750 mg PO NOW ONE Stop: 12/30/22 11:50 Last Admin: 12/30/22 11:58 Dose: 750 mg Documented By: JENNIFER Multivitamins (Multivitamin 1 Tablet) 1 tab PO DAILY [facility] Last Admin: 12/30/22 08:50 Dose: 1 tab Documented By: JENNIFER Naloxone HCl (Naloxone 0.4 Mg/Ml Vial) 0.2 mg IV Q2MIN PRN PRN Reason: Opiate Reversal Naloxone HCl (Naloxone 0.4 Mg/Ml Vial) 0.2 mg IV Q2MIN PRN PRN Reason: Opiate Reversal Oxycodone HCl (Oxycodone Ir 5 Mg Tablet) 5 mg PO Q3H PRN PRN Reason: Pain, Moderate (4-6) Last Admin: 12/30/22 11:58 Dose: 5 mg Documented By: Admin: 12/30/22 08:51 Dose: 5 mg Documented By: Admin: 12/30/22 05:42 Dose: 5 mg Documented By: Admin: 12/30/22 00:09 Dose: 5 mg Documented By: Admin: 12/29/22 20:34 Dose: 5 mg Documented By: Admin: 12/29/22 17:20 Dose: 5 mg Documented By: HCW Pantoprazole Sodium (Pantoprazole Dr 40 Mg Tablet) 40 mg PO DAILY [facility] Last Admin: 12/30/22 08:50 Dose: 40 mg Documented By: JENNIFER Vital Signs Vital signs: Vital Signs - 8 hr 12/29/22 08:15 12/29/22 08:31 12/29/22 08:35 Temperature 97.7 F Pulse Rate 78 77 Respiratory Rate 18 Blood Pressure 163/98 H 168/65 H Pulse Oximetry 99 98 Oxygen Delivery Method Room Air 12/29/22 08:35 12/29/22 08:44 12/29/22 08:44 Temperature Pulse Rate 74 72 Respiratory Rate 16 12 Blood Pressure 167/72 H Pulse Oximetry 99 99 Oxygen Delivery Method Room Air 12/29/22 08:45 12/29/22 08:45 12/29/22 09:00 Temperature Pulse Rate 72 71 Respiratory Rate 16 Blood Pressure 156/70 H Pulse Oximetry 99 Oxygen Delivery Method Room Air 12/29/22 09:00 12/29/22 09:15 12/29/22 09:15 Temperature Pulse Rate 68 Respiratory Rate 9 L Blood Pressure 144/67 H 155/67 H Pulse Oximetry 99 Oxygen Delivery Method 12/29/22 09:59 12/29/22 10:00 12/29/22 10:00 Temperature Pulse Rate 69 69 Respiratory Rate 15 Blood Pressure 167/70 H Pulse Oximetry 98 98 Oxygen Delivery Method Room Air 12/29/22 10:30 12/29/22 11:00 Temperature Pulse Rate 71 73 Respiratory Rate 11 L 15 Blood Pressure Pulse Oximetry 100 99 Oxygen Delivery Method MDM - Neuro Symptoms/Deficit Lab Data 12/30/22 05:25 12/30/22 05:25 Labs: Lab Results 12/29/22 12/29/22 12/29/22 Range/Units 08:24 10:13 10:47 WBC 8.0 (4.5-11.0) X10^3/uL RBC 3.76 L (4.5-5.9) X10^6/uL Hgb 11.7 L (13.5-17.5) g/dL Hct 34.2 L (41-53) % MCV 91.0 (80-100) fL MCH 31.1 (26-34) PG MCHC 34.2 (30-36) % RDW 14.6 (11.6-14.8) % Plt Count 192 (150-400) X10^3/uL Neut % (Auto) 52.6 (50-75) % Lymph % (Auto) 26.8 (25-40) % Dickenson % (Auto) 7.5 (3-14) % Eos % (Auto) 12.2 H (2-4) % Baso % (Auto) 0.9 (0-2) % Neut # (Auto) 4200 (2231-4213) /uL Lymph # (Auto) 2100 (8944-5224) /uL Dickenson # (Auto) 600 (0-900) /uL Eos # (Auto) 1000 H (0-450) /uL Baso # (Auto) 100 (0-100) /uL PT 12.5 (10.1-12.7) SECONDS INR 1.1 (0.9-1.3) APTT 29 (26-36) SECONDS ABG Sample Site ABG pH (7.35-7.45) ABG pCO2 (35-45) mmHg ABG pO2 (80-100) mmHg ABG HCO3 (23-27) mmol/L ABG Total CO2 (23-27) mmol/L ABG O2 Saturation (95-100) % ABG Base Excess (-2-3) mmol/L FiO2 Sodium 139 (137-145) mmol/L Potassium 4.3 (3.4-5.1) mmol/L Chloride 102 (98-107) mmol/L Carbon Dioxide 28 (22-32) mmol/L BUN 18 (9-20) mg/dL Creatinine 0.85 (0.66-1.25) mg/dL Estimated GFR > 60 (>60) mL/min BUN/Creatinine Ratio 21.2 (6-22) Glucose 115 H (80-110) mg/dL Lactate 4.2 H* (0.7-2.1) mmol/L Calcium 9.8 (8.4-10.2) mg/dL Total Bilirubin 0.5 (0.2-1.3) mg/dL AST 27 (17-59) IU/L ALT 25 (<50) IU/L Alkaline Phosphatase 87 (38-126) U/L Ammonia (9-30) umol/L Total Creatine Kinase 40 L (55-170) U/L Troponin I < 0.012 (0.01-0.034) ng/mL Total Protein 7.2 (6.3-8.2) g/dL Albumin 4.1 (3.5-5.0) g/dL Globulin 3.1 (1.7-4.1) g/dL Albumin/Globulin Ratio 1.3 (1.0-2.8) Procalcitonin 0.08 (<0.5) ng/mL Urine Color Yellow Urine Appearance Clear Urine pH 5.0 (4.5-8.0) Ur Specific Sprague 1.010 (1.000-1.035) Urine Protein Negative (Negative) Urine Glucose (UA) Negative (Negative) g/dL Urine Ketones Negative (NEGATIVE) Urine Occult Blood Negative (Negative) Urine Nitrate Negative (Negative) Urine Bilirubin Negative (NEGATIVE) Urine Urobilinogen 0.2 (0.2) E.U./dL Ur Leukocyte Esterase 1+ H (NEGATIVE) Urine RBC 0-1/hpf (0-5/HPF) Urine WBC 5-10/hpf H (0-5/HPF) Ur Squamous Epith Cells None seen (0-5/HPF) Urine Bacteria Occasional (0-1) (None) Ur Culture Indicated? Specimen cultured U Opiates 300ng/mL cut Negative (Negative) Ur Oxycodone Screen Positive H (Negative) Urine Methadone Screen Negative (Negative) Acetaminophen (10-30) ug/mL Ur Barbiturates Screen Positive H (Negative) U Tricyclic Antidepress Negative (Negative) Ur Phencyclidine Scrn Negative (Negative) Ur Amphetamines Screen Negative (Negative) U Methamphetamines Scrn Negative (Negative) Ur MDMA Scrn (Ecstasy) Negative (Negative) U Benzodiazepines Scrn Negative (Negative) Urine Cocaine Screen Negative (Negative) U Marijuana (THC) Screen Negative (Negative) Ethyl Alcohol < 10 ( - 10) mg/dL Ketones (<0.27) mmol/L 12/29/22 12/29/22 12/29/22 Range/Units 10:51 11:00 11:05 WBC (4.5-11.0) X10^3/uL RBC (4.5-5.9) X10^6/uL Hgb (13.5-17.5) g/dL Hct (41-53) % MCV (80-100) fL MCH (26-34) PG MCHC (30-36) % RDW (11.6-14.8) % Plt Count (150-400) X10^3/uL Neut % (Auto) (50-75) % Lymph % (Auto) (25-40) % Dickenson % (Auto) (3-14) % Eos % (Auto) (2-4) % Baso % (Auto) (0-2) % Neut # (Auto) (1612-5708) /uL Lymph # (Auto) (5906-1426) /uL Dickenson # (Auto) (0-900) /uL Eos # (Auto) (0-450) /uL Baso # (Auto) (0-100) /uL PT (10.1-12.7) SECONDS INR (0.9-1.3) APTT (26-36) SECONDS ABG Sample Site Left radial ABG pH 7.42 (7.35-7.45) ABG pCO2 38.7 (35-45) mmHg ABG pO2 86 (80-100) mmHg ABG HCO3 25 (23-27) mmol/L ABG Total CO2 26 (23-27) mmol/L ABG O2 Saturation 97 (95-100) % ABG Base Excess 1.0 (-2-3) mmol/L FiO2 21 Sodium (137-145) mmol/L Potassium (3.4-5.1) mmol/L Chloride (98-107) mmol/L Carbon Dioxide (22-32) mmol/L BUN (9-20) mg/dL Creatinine (0.66-1.25) mg/dL Estimated GFR (>60) mL/min BUN/Creatinine Ratio (6-22) Glucose (80-110) mg/dL Lactate (0.7-2.1) mmol/L Calcium (8.4-10.2) mg/dL Total Bilirubin (0.2-1.3) mg/dL AST (17-59) IU/L ALT (<50) IU/L Alkaline Phosphatase (38-126) U/L Ammonia 99 H (9-30) umol/L Total Creatine Kinase (55-170) U/L Troponin I (0.01-0.034) ng/mL Total Protein (6.3-8.2) g/dL Albumin (3.5-5.0) g/dL Globulin (1.7-4.1) g/dL Albumin/Globulin Ratio (1.0-2.8) Procalcitonin (<0.5) ng/mL Urine Color Urine Appearance Urine pH (4.5-8.0) Ur Specific Sprague (1.000-1.035) Urine Protein (Negative) Urine Glucose (UA) (Negative) g/dL Urine Ketones (NEGATIVE) Urine Occult Blood (Negative) Urine Nitrate (Negative) Urine Bilirubin (NEGATIVE) Urine Urobilinogen (0.2) E.U./dL Ur Leukocyte Esterase (NEGATIVE) Urine RBC (0-5/HPF) Urine WBC (0-5/HPF) Ur Squamous Epith Cells (0-5/HPF) Urine Bacteria (None) Ur Culture Indicated? U Opiates 300ng/mL cut (Negative) Ur Oxycodone Screen (Negative) Urine Methadone Screen (Negative) Acetaminophen < 10 (10-30) ug/mL Ur Barbiturates Screen (Negative) U Tricyclic Antidepress (Negative) Ur Phencyclidine Scrn (Negative) Ur Amphetamines Screen (Negative) U Methamphetamines Scrn (Negative) Ur MDMA Scrn (Ecstasy) (Negative) U Benzodiazepines Scrn (Negative) Urine Cocaine Screen (Negative) U Marijuana (THC) Screen (Negative) Ethyl Alcohol ( - 10) mg/dL Ketones 0.24 (<0.27) mmol/L 12/29/22 Range/Units 12:11 WBC (4.5-11.0) X10^3/uL RBC (4.5-5.9) X10^6/uL Hgb (13.5-17.5) g/dL Hct (41-53) % MCV (80-100) fL MCH (26-34) PG MCHC (30-36) % RDW (11.6-14.8) % Plt Count (150-400) X10^3/uL Neut % (Auto) (50-75) % Lymph % (Auto) (25-40) % Dickenson % (Auto) (3-14) % Eos % (Auto) (2-4) % Baso % (Auto) (0-2) % Neut # (Auto) (7833-4892) /uL Lymph # (Auto) (6866-0438) /uL Dickenson # (Auto) (0-900) /uL Eos # (Auto) (0-450) /uL Baso # (Auto) (0-100) /uL PT (10.1-12.7) SECONDS INR (0.9-1.3) APTT (26-36) SECONDS ABG Sample Site ABG pH (7.35-7.45) ABG pCO2 (35-45) mmHg ABG pO2 (80-100) mmHg ABG HCO3 (23-27) mmol/L ABG Total CO2 (23-27) mmol/L ABG O2 Saturation (95-100) % ABG Base Excess (-2-3) mmol/L FiO2 Sodium (137-145) mmol/L Potassium (3.4-5.1) mmol/L Chloride (98-107) mmol/L Carbon Dioxide (22-32) mmol/L BUN (9-20) mg/dL Creatinine (0.66-1.25) mg/dL Estimated GFR (>60) mL/min BUN/Creatinine Ratio (6-22) Glucose (80-110) mg/dL Lactate 2.1 (0.7-2.1) mmol/L Calcium (8.4-10.2) mg/dL Total Bilirubin (0.2-1.3) mg/dL AST (17-59) IU/L ALT (<50) IU/L Alkaline Phosphatase (38-126) U/L Ammonia (9-30) umol/L Total Creatine Kinase (55-170) U/L Troponin I (0.01-0.034) ng/mL Total Protein (6.3-8.2) g/dL Albumin (3.5-5.0) g/dL Globulin (1.7-4.1) g/dL Albumin/Globulin Ratio (1.0-2.8) Procalcitonin (<0.5) ng/mL Urine Color Urine Appearance Urine pH (4.5-8.0) Ur Specific Sprague (1.000-1.035) Urine Protein (Negative) Urine Glucose (UA) (Negative) g/dL Urine Ketones (NEGATIVE) Urine Occult Blood (Negative) Urine Nitrate (Negative) Urine Bilirubin (NEGATIVE) Urine Urobilinogen (0.2) E.U./dL Ur Leukocyte Esterase (NEGATIVE) Urine RBC (0-5/HPF) Urine WBC (0-5/HPF) Ur Squamous Epith Cells (0-5/HPF) Urine Bacteria (None) Ur Culture Indicated? U Opiates 300ng/mL cut (Negative) Ur Oxycodone Screen (Negative) Urine Methadone Screen (Negative) Acetaminophen (10-30) ug/mL Ur Barbiturates Screen (Negative) U Tricyclic Antidepress (Negative) Ur Phencyclidine Scrn (Negative) Ur Amphetamines Screen (Negative) U Methamphetamines Scrn (Negative) Ur MDMA Scrn (Ecstasy) (Negative) U Benzodiazepines Scrn (Negative) Urine Cocaine Screen (Negative) U Marijuana (THC) Screen (Negative) Ethyl Alcohol ( - 10) mg/dL Ketones (<0.27) mmol/L Point of Care Testing Glucose POC 115 Urine Dip Bedside Urine Glucose Negative Bedside Urine Bilirubin - Negative Bedside Urine Ketone - Negative Urine Specific Sprague 1.010 Bedside Urine Occult Blood - Negative Bedside Urine pH 6.0 Bedside Urine Protein - Negative Bedside Urine Urobilinogen - Negative Bedside Urine Nitrite - Negative Bedside Urine Leukocytes + [address] scan - head: Radiologist's Impression: [address] [address] [address] Scan Report Signed Patient: Josue Mesa MR#: [id number] : 1955 Acct:[id number] Age/Sex: 67 / M Date of Service: 12/29/22 Loc: ED Accession Number: [id number] Procedure: CT Stroke Ordering Provider: Stephen Bradford MD PROCEDURE: CT STROKE INDICATIONS: Left-sided weakness TECHNIQUE: Noncontrast 4.5 mm thick angled axial sections acquired from the foramen magnum to the vertex, with coronal reformats. For radiation dose reduction, the following was used: automated exposure control, adjustment of mA and/or kV according to patient size. COMPARISON: None. FINDINGS: Image quality: There are motion artifacts. CSF spaces: Basal cisterns are patent. No extra-axial fluid collections. The ventricles are symmetric in size and shape. Brain: No intracranial bleeds or masses. There is cerebral volume loss for age, with resultant ventricular and sulcal prominence. There are periventricular and deep white matter chronic small vessel ischemic changes. There is intracranial internal carotid artery atherosclerosis. Skull and face: Calvarium and visualized facial bones appear intact, without suspicious lesions. Sinuses: Visualized sinuses and mastoids are clear. IMPRESSION: 1. No acute intracranial abnormalities. The result was discussed with Dr. Bradford in ER. This study fulfills neurological imaging criteria for inclusion or exclusion of acute stroke therapies based on available published neurological guidelines. Dictated by: Kusum Thakkar M.D. on 12/29/2022 at 8:32 Approved by: Kusum Thakkar M.D. on 12/29/2022 at 8:36 CTA - brain/neck: Radiologist's Impression: [place] [address] CT Scan Report Signed Patient: Josue Mesa MR#: [id number] : 1955 Acct:[id number] Age/Sex: 67 / M Date of Service: 12/29/22 Loc: ED Accession Number: [id number] Procedure: CT angio head and neck Ordering Provider: Stephen Bradford MD PROCEDURE: CT ANGIO HEAD AND NECK INDICATIONS: Left-sided weakness TECHNIQUE: After the administration of intravenous contrast, 1 mm thick sections acquired from the aortic arch through the [place]. 3-dimensional fbaskzr-qizgilfmb-rqieoegfkb (MIP) and/or volume rendering reformats were acquired of the central intracranial vasculature and neck separately. For radiation dose reduction, the following was used: automated exposure control, adjustment of mA and/or kV according to patient size. COMPARISON: [facility], CT, CT STROKE, 12/29/2022, 8:19. FINDINGS: Image quality: Diagnostic. BRAIN: Please refer to separately dictated CT of the head. HEAD CT ANGIOGRAPHY: Anterior circulation: Intracranial internal carotid arteries are normal in size and flow. Atherosclerotic vascular calcifications. The flow within the paired anterior cerebral arteries is normal and symmetric. The flow within the middle cerebral arteries is normal and symmetric. The anterior communicating artery is seen. No aneurysms are seen. Posterior circulation: Visualized portions of the vertebral arteries demonstrate normal caliber, and join to form a normal appearing basilar artery. Flow within the posterior cerebral arteries is normal and symmetric. No aneurysms are seen. NECK CT ANGIOGRAPHY: Carotid system: The great vessels demonstrate a conventional anatomy as they arise from the aortic arch. The origins of the common carotid arteries appear patent. The common carotid arteries demonstrate normal caliber and courses. The bifurcation regions are both widely patent. Minimal atherosclerosis at the left bifurcation. The internal carotid arteries demonstrate normal calibers and courses. Posterior circulation: The origins of the vertebral arteries both appear widely patent. The more superior extracranial portions of both vertebral arteries also demonstrate normal courses and calibers. They join to form a normal appearing basilar artery. 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 Bilateral lens replacements. Bones: No suspicious bony lesions. Visualized cervical spine appears normally aligned. IMPRESSION: 1. The arteries of the head and neck are patent with minimal atherosclerotic vascular calcifications. No hemodynamically significant stenosis, large vessel occlusion, aneurysm or AVM. 2. 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 Given size, recommend surgical consultation or MRI for further evaluation. Any quantitative measurements of stenosis were performed using NASCET criteria. Dictated by: David Murdock M.D. on 12/29/2022 at 8:44 Approved by: David Murdock M.D. on 12/29/2022 at 8:53 MRI brain: Radiologist's Impression: [address] [address] Magnetic Resonance Report Signed Patient: Josue Mesa MR#: [id number] : 1955 Acct:[id number] Age/Sex: 67 / M Date of Service: 12/29/22 Loc: ED Accession Number: [id number] Procedure: MR head/brain wo con Ordering Provider: Stephen Bradford MD PROCEDURE: MR HEAD/BRAIN WO CON INDICATIONS: stroke TECHNIQUE: Non-contrast axial T1 spin echo, axial T2 fast spin echo, sagittal and axial FLAIR, coronal T2 fast spin echo, axial gradient echo, axial diffusion and ADC through the brain. COMPARISON: [facility], MR, MR HEAD/BRAIN WO/W CON, 01/14/2022, 15:06. [facility], CT, CT STROKE, 12/29/2022, 8:19. [facility], CT, CT ANGIO HEAD AND NECK, 12/29/2022, 8:19. FINDINGS: Image quality: Excellent. CSF spaces: Ventricles appear symmetric in size and shape. Basal cisterns are patent. No extra-axial fluid collections. Brain: No intracranial bleeds or mass effects. There is cerebral volume loss for age. There are mild, age-appropriate periventricular and deep white matter chronic small vessel ischemic changes. Brainstem appears normal. Diffusion-weighted images show no acute ischemic insults. Tiny old cortical infarct in the right posterior temporal occipital region. Normal intravascular flow voids are present. Skull and face: Calvarial bone marrow is normal in signal. Orbits are normal. Sinuses: Sinuses and mastoids are clear. IMPRESSION: 1. No acute intracranial process. 2. Age-related volume loss, mild small vessel ischemic change, old very small cortical infarct. Dictated by: Otoniel Valadez M.D. on 12/29/2022 at 9:54 Approved by: Otoniel Valadez M.D. on 12/29/2022 at 10:05 CT chest abdomen pelvis: Radiologist's Impression: [place] [address] CT Scan Report Signed Patient: Josue Mesa MR#: [id number] : 1955 Acct:[id number] Age/Sex: 67 / M Date of Service: 12/29/22 Loc: ED Accession Number: [id number] Procedure: CT chest abd pel wo con Ordering Provider: Stephen Bradford MD PROCEDURE: CT CHEST ABD PEL WO CON INDICATIONS: Sepsis TECHNIQUE: After the administration of oral contrast, 5 mm thick sections acquired from the lung apices to the symphysis pubis. 5 mm thick coronal and sagittal reformats acquired, with additional 7 mm coronal MIP reformats through the lungs. For radiation dose reduction, the following was used: automated exposure control, adjustment of mA and/or kV according to patient size. COMPARISON: None. FINDINGS: Image quality: Excellent. CHEST: Lungs and pleura: No acute pulmonary opacities. Scattered calcified granulomas No pleural effusions or pneumothorax. Central and peripheral airways are patent are normal in caliber. Mediastinum: Heart size is normal. Mild coronary artery calcifications. Trace pericardial effusion. No mediastinal adenopathy by CT size criteria. Thoracic aorta and central pulmonary arteries are normal in size. Esophagus is normal in caliber. No hiatal hernia. Chest wall: No axillary or supraclavicular adenopathy by size criteria. 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 Thyroid gland is unremarkable . ABDOMEN: Solid organs: Liver is normal in size. Nodular contour to the liver, correlate with cirrhosis. Gallbladder is unremarkable . Pancreas is normal in contours. Spleen is normal in size. No adrenal nodules. Both kidneys are normal in size, without hydronephrosis. Nonobstructing calcifications within the left kidney measuring up to 11 millimeters. Peritoneum and bowel: Small and large bowel loops are normal in caliber and wall thickness. No free fluid or air. Nodes and vessels: No retroperitoneal or mesenteric adenopathy by size criteria. Aorta and inferior vena cava are normal in size. Atherosclerotic vascular calcifications. Multiple enlarged varices within the mid and right abdomen which drain into the right renal vein. Miscellaneous: No ventral hernias. PELVIS: Genitourinary: Bladder wall thickness is normal. Miscellaneous: No inguinal hernias or adenopathy. Bones: No suspicious bony lesions. No vertebral body compression fractures. Diffusely decreased osseous mineralization. Multilevel degenerative changes of the spine. IMPRESSION: 1. No acute findings on this noncontrast exam to explain patient's symptoms. 2. Nonobstructing left renal stones measuring up to 11 millimeters 3. Nodular contour to the liver, correlate with cirrhosis. Multiple enlarged venous varices within the mid and right abdomen, some of which drain into the right renal vein. This may be secondary to chronic portal hypertension or portal venous thrombosis. Given multiple large venous varices, this appears to be a chronic process. Further evaluation with nonurgent ultrasound or contrast-enhanced abdomen pelvis can be obtained. Dictated by: David Murdock M.D. on 12/29/2022 at 11:59 Approved by: David Murdock M.D. on 12/29/2022 at 12:12 MDM Narrative Medical decision making narrative: 25 by EMS. Patient brought in from [facility]. Was eating breakfast and started behaving confused. EMS states he is leaning towards the left. Patient is only able to say his name and date of at this time. According to intermediate staff he is usually awake alert oriented x4 and very functional and independent and drives himself to appointments. No fall or injury. Fast exam does show weakness on the left arm and left leg. No facial droop. After history and exam code stroke activated. Stroke protocol labs and CT imaging EKG ordered. [facility] CC: Altered mental status left-sided weakness Complicating co-morbidities: Diabetes Data collected from: EMS Medical records reviewed: No recent visit for this complaint Differential considered: Includes but not limited to stroke TIA brain aneurysm head bleed hypoglycemia Exam documented above, pertinent findings include: Left-sided weakness Lab Test results independently reviewed as above. Pertinent findings: WBC 8.0 hemoglobin 11.7 PT 12.5 INR 1.1 sodium 139 potassium 4.3 BUN 18 creatinine 0.85 AST 27 ALT 25 troponin less than 0.012 Independently reviewed EKG normal sinus rhythm rate [address] elevation or depression Imaging studies independently reviewed: CT head without contrast no acute finding CT angiogram head neck no acute finding MRI brain no acute finding Consultations: 8:36 a.m.. Spoke with radiologist, CT head without contrast no acute finding 8:[address] Jordan, neurology, tele stroke, she will see patient through tele video. 9:[address] Jordan has evaluated patient, no tPA at this time. She would like a stat MRI of the brain 10:[address] Jordan, no tPA. MRI is reassuring. Admit for observation. Pursue other sources for altered mental status 1:52 p.m.. Hospitalist in the department here now seeing patient for admission, Dr. Hitchcock Treatments: Normal saline Re-evaluations: 8:30 a.m.. Patient is still just repeating his name and date of when asked questions. 10:10 a.m.. Patient is awake alert oriented x3 at this time. He is improving. Discussion: Appropriate for admission for altered mental status. At this time patient will need further workup for altered mental status. At this time results are reassuring. I did speak with sister and his niece regarding admission they do understand. At this time unknown source for his altered mental status. Hospitalist has seen patient for admission. Diagnosis: Altered mental status Discharge Plan Departure Patient Disposition: Admitted as Observation Clinical Impression: Acute alteration in mental status Admit Date/Time: 12/29/22 13:50 Admit Provider: Thiago Hitchcock
[2022-12-29 08:34] LABS: Add Manual Diff / Slide Review NO; Basophils Absolute Auto 100 /uL (0-100); Basophils Percent Auto 0.9 % (0-2); Eosinophils Absolute Auto 1000 /uL (0-450); Eosinophils Percent Auto 12.2 % (2-4); Hematocrit 34.2 % (41-53); Hemoglobin 11.7 g/dL (13.5-17.5); Lymphocytes Absolute Auto 2100 /uL (1100-4500); Lymphocytes Percent Auto 26.8 % (25-40); Mean Corpuscular HGB Conc 34.2 % (30-36); Mean Corpuscular Hemoglobin 31.1 PG (26-34); Monocytes Absolute Auto 600 /uL (0-900); Monocytes Percent Auto 7.5 % (3-14); Neutrophils Absolute Auto 4200 /uL (1500-7000); Neutrophils Percent Auto 52.6 % (50-75); Platelet Count 192 X10^3/uL (150-400); Red Blood Cell Count 3.76 X10^6/uL (4.5-5.9); Red Cell Distribution Width 14.6 % (11.6-14.8)
[2022-12-29 08:40] LABS: INR 1.1 (0.9-1.3); Prothrombin Time 12.5 SECONDS (10.1-12.7)
[2022-12-29 08:42] LABS: PTT Partial Thromboplastin Tim 29 SECONDS (26-36)
[2022-12-29 08:46] LABS: Alanine Aminotransferase 25 IU/L (<50); Albumin 4.1 g/dL (3.5-5.0); Albumin Globulin Ratio 1.3 (1.0-2.8); Alkaline Phosphatase 87 U/L (38-126); Aspartate Aminotransferase 27 IU/L (17-59); BUN Creatinine Ratio 21.2 (6-22); Bilirubin Total 0.5 mg/dL (0.2-1.3); Blood Urea Nitrogen 18 mg/dL (9-20); Calcium 9.8 mg/dL (8.4-10.2); Carbon Dioxide 28 mmol/L (22-32); Chloride 102 mmol/L (98-107); Creatine Kinase 40 U/L (55-170); Estimated Glomerular Filt Rate > 60 mL/min (>60); Ethanol (ETOH) < 10 mg/dL; Globulin 3.1 g/dL (1.7-4.1); Glucose 115 mg/dL (80-110); HEMOLYSIS < 15 (0-50); Potassium 4.3 mmol/L (3.4-5.1); Sodium 139 mmol/L (137-145); Total Protein 7.2 g/dL (6.3-8.2)
[2022-12-29 08:57] LABS: Troponin I < 0.012 ng/mL (0.01-0.034)
--- NOTE | 2022-12-29 09:02 | DI.MRI.S_ITS ---
PROCEDURE: MR HEAD/BRAIN WO CON INDICATIONS: stroke TECHNIQUE: Non-contrast axial T1 spin echo, axial T2 fast spin echo, sagittal and axial FLAIR, coronal T2 fast spin echo, axial gradient echo, axial diffusion and ADC through the brain. COMPARISON: [facility], MR, MR HEAD/BRAIN WO/W CON, 01/14/2022, 15:06. [facility], CT, CT STROKE, 12/29/2022, 8:19. [facility], CT, CT ANGIO HEAD AND NECK, 12/29/2022, 8:19. FINDINGS: Image quality: Excellent. CSF spaces: Ventricles appear symmetric in size and shape. Basal cisterns are patent. No extra-axial fluid collections. Brain: No intracranial bleeds or mass effects. There is cerebral volume loss for age. There are mild, age-appropriate periventricular and deep white matter chronic small vessel ischemic changes. Brainstem appears normal. Diffusion-weighted images show no acute ischemic insults. Tiny old cortical infarct in the right posterior temporal occipital region. Normal intravascular flow voids are present. Skull and face: Calvarial bone marrow is normal in signal. Orbits are normal. Sinuses: Sinuses and mastoids are clear. IMPRESSION: 1. No acute intracranial process. 2. Age-related volume loss, mild small vessel ischemic change, old very small cortical infarct. Dictated by: Otoniel Valadez M.D. on 12/29/2022 at 9:54 Approved by: Otoniel Valadez M.D. on 12/29/2022 at 10:05
[2022-12-29 10:31] LABS: Lactate (Lactic Acid) 4.2 mmol/L (0.7-2.1)
[2022-12-29] MEDS: SODIUM CHLORIDE 0.9% 1,000 ML 1000 ML IV ×2 (10:38→12:21)
--- NOTE | 2022-12-29 10:41 | DI.CT.S_ITS ---
PROCEDURE: CT CHEST ABD PEL WO CON INDICATIONS: Sepsis TECHNIQUE: After the administration of oral contrast, 5 mm thick sections acquired from the lung apices to the symphysis pubis. 5 mm thick coronal and sagittal reformats acquired, with additional 7 mm coronal MIP reformats through the lungs. For radiation dose reduction, the following was used: automated exposure control, adjustment of mA and/or kV according to patient size. COMPARISON: None. FINDINGS: Image quality: Excellent. CHEST: Lungs and pleura: No acute pulmonary opacities. Scattered calcified granulomas No pleural effusions or pneumothorax. Central and peripheral airways are patent are normal in caliber. Mediastinum: Heart size is normal. Mild coronary artery calcifications. Trace pericardial effusion. No mediastinal adenopathy by CT size criteria. Thoracic aorta and central pulmonary arteries are normal in size. Esophagus is normal in caliber. No hiatal hernia. Chest wall: No axillary or supraclavicular adenopathy by size criteria. 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 Thyroid gland is unremarkable . ABDOMEN: Solid organs: Liver is normal in size. Nodular contour to the liver, correlate with cirrhosis. Gallbladder is unremarkable . Pancreas is normal in contours. Spleen is normal in size. No adrenal nodules. Both kidneys are normal in size, without hydronephrosis. Nonobstructing calcifications within the left kidney measuring up to 11 millimeters. Peritoneum and bowel: Small and large bowel loops are normal in caliber and wall thickness. No free fluid or air. Nodes and vessels: No retroperitoneal or mesenteric adenopathy by size criteria. Aorta and inferior vena cava are normal in size. Atherosclerotic vascular calcifications. Multiple enlarged varices within the mid and right abdomen which drain into the right renal vein. Miscellaneous: No ventral hernias. PELVIS: Genitourinary: Bladder wall thickness is normal. Miscellaneous: No inguinal hernias or adenopathy. Bones: No suspicious bony lesions. No vertebral body compression fractures. Diffusely decreased osseous mineralization. Multilevel degenerative changes of the spine. IMPRESSION: 1. No acute findings on this noncontrast exam to explain patient's symptoms. 2. Nonobstructing left renal stones measuring up to 11 millimeters 3. Nodular contour to the liver, correlate with cirrhosis. Multiple enlarged venous varices within the mid and right abdomen, some of which drain into the right renal vein. This may be secondary to chronic portal hypertension or portal venous thrombosis. Given multiple large venous varices, this appears to be a chronic process. Further evaluation with nonurgent ultrasound or contrast-enhanced abdomen pelvis can be obtained. Dictated by: David Murdock M.D. on 12/29/2022 at 11:59 Approved by: David Murdock M.D. on 12/29/2022 at 12:12
[2022-12-29 10:46] LABS: Procalcitonin 0.08 ng/mL (<0.5)
[2022-12-29 11:08] LABS: Ur Creatinine Normal (Normal); Ur Specific Gravity Normal (Normal); Urine pH Normal (Normal)
[2022-12-29 11:09] LABS: UR Morphine/Opiate cutoff 300 Negative (Negative); Urine Amphetamines Negative (Negative); Urine Barbiturates Positive (Negative); Urine Benzodiazepines Negative (Negative); Urine Cocaine Negative (Negative); Urine MDMA Negative (Negative); Urine Methadone Negative (Negative); Urine Methamphetamines Negative (Negative); Urine Oxycodone Positive (Negative); Urine Phencyclidine Negative (Negative); Urine Tetrahydrocannabinol Negative (Negative); Urine Tricyclic Antidepressant Negative (Negative)
[2022-12-29 11:12] LABS: HCO3 ABG 25 mmol/L (23-27); PCO2 ABG 38.7 mmHg (35-45); PO2 ABG 86 mmHg (80-100); TCO2 ABG 26 mmol/L (23-27); pH ABG 7.42 (7.35-7.45)
[2022-12-29 11:13] LABS: Allen Test for ABG Passed? Yes, Passed; Blood Gas Collection Site Left Radial; Fractionated Inspired Oxygen 21; Oxygen Saturation ABG 97 % (95-100)
[2022-12-29 11:24] LABS: Ammonia (NH3) 99 umol/L (9-30)
[2022-12-29 11:42] LABS: Ketones (Beta-Hydroxybutyrate) 0.24 mmol/L (<0.27)
[2022-12-29 11:58] LABS: Reflexed Lactate in 2 Hours Y
[2022-12-29 12:31] LABS: Lactate 2HR (Lactic Acid Rflx) 2.1 mmol/L (0.7-2.1)
[2022-12-29 12:49] LABS: Bilirubin Urine UA NEGATIVE (NEGATIVE); Glucose Urine UA NEGATIVE (Negative); Ketones Urine UA NEGATIVE (NEGATIVE); Leukocyte Esterase Urine UA 1+ (NEGATIVE); Nitrite Urine UA NEGATIVE (Negative); Occult Blood Urine UA NEGATIVE (Negative); Protein Urine UA NEGATIVE (Negative); Urobilinogen Urine UA 0.2 E.U./dL (0.2)
[2022-12-29 12:50] LABS: Appearance Urine UA Clear; Color Urine UA Yellow
[2022-12-29 12:59] LABS: Bacteria Urine Occasional (0-1); Culture Indicated Urine Specimen Cultured; RBC Urine 0-1/HPF (0-5/HPF); Squamous Epithelial Cell Urine None Seen (0-5/HPF); WBC Urine 5-10/HPF (0-5/HPF)
--- NOTE | 2022-12-29 14:07 | PC.NURSE ---
States he feels a little better.
--- NOTE | 2022-12-29 14:39 | PM.HP.1 ---
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 Patient is unable to reliably tell his presenting story so it is combined from multiple sources. Patient reports he has been feeling tired for the last couple of days, but right now is unable to elaborate further. He does not feel focal weakness or numbness, but globally weak and tired. He is normally alert and oriented, though has slow speech according to prior exams in this hospital about a year ago. Today he appeared fine this morning, but became very fatigued and confused at his assisted living and he was sent to the emergency room. In the emergency room, his vitals were unremarkable, initially a stroke workup was obtained including MRI which is unremarkable. Laboratory evaluation was notable for an unremarkable CBC, normal ABG, chemistry panel except for an ammonia of 99. CT imaging of his abdomen did show a nodular appearing liver. The patient has no known diagnosis of cirrhosis according to available sources. He was admitted for further evaluation and management of a new diagnosis of cirrhosis with new severe hepatic encephalopathy. [facility] Medical History (Updated 12/29/22 @ 10:13 by Stephen Bradford MD) History of non-ST elevation myocardial infarction (NSTEMI) AGATHA treated with BiPAP Severe muscle deconditioning Sedentary lifestyle Closed non-physeal fracture of proximal phalanx of great toe with malunion Chronic ulcer of right foot limited to breakdown of skin Insulin dependent diabetes mellitus Peripheral vascular disease Hypertension Depression Toe amputation status Peripheral autonomic neuropathy Sepsis (02/27/17) Cellulitis (02/27/17) Sleep apnea MRSA (methicillin resistant Staphylococcus aureus) (02/27/17) Visit for wound care Essential tremor Thrombocytopenia Morbid obesity Polypharmacy Diabetes Surgical History (Updated 01/16/22 @ 21:04 by WILDER Franklin) History of amputation of lesser toe of right foot Family History Father Cancer Congestive heart failure Mother Cancer Social History household members: none Smoking Status: Never smoker alcohol intake: current Meds Home Medications and Allergies Home Medications Medication Instructions Recorded Confirmed Type gabapentin 800 mg tablet 1,200 mg PO TID ##0 10/07/12 12/29/22 History furosemide 80 mg tablet 40 mg PO BID ##0 10/15/15 12/29/22 History enalapril maleate 20 mg tablet 20 mg PO Q DAY ##0 03/06/16 12/29/22 History acetaminophen 500 mg tablet 1,000 mg PO Q4H PRN Pain ##0 02/27/17 12/29/22 History (Tylenol Extra Strength) bisacodyl 5 mg tablet 10 mg PO PRN PRN Constipation 02/07/18 12/29/22 History oxycodone 10 mg tablet 10 mg PO Q4H PRN Pain 02/07/18 12/29/22 History polyethylene glycol 3350 17 17 g PO PRN PRN Constipation 02/07/18 12/29/22 History gram/dose oral powder primidone 50 mg tablet 250 tab PO BID 02/07/18 12/29/22 History multivitamin 1 cap PO DAILY 11/02/18 12/29/22 History vitamin B complex 1 cap PO DAILY 11/02/18 12/29/22 History insulin glargine 100 unit/mL (3 See Rx Instructions .Route .COMPLEX 01/16/22 12/29/22 History mL) subcutaneous pen (Lantus Solostar U-100 Insulin) pantoprazole 40 mg tablet,delayed 40 mg PO DAILY 01/16/22 12/29/22 History release Allergies Allergy/AdvReac Type Severity Reaction Status Date / Time amoxicillin [From AUGMENTIN] AdvReac Mild UPSET Verified 01/17/22 11:34 STOMACH clavulanic acid AdvReac Mild UPSET Verified 01/17/22 11:35 [From AUGMENTIN] STOMACH Review of Systems Review of Systems Narrative: All other systems reviewed with the patient and are negative unless otherwise stated. Exam Vital Signs (past 8 hours): - 12/29/22 08:15 12/29/22 08:31 12/29/22 08:35 Temperature 97.7 F Pulse Rate 78 77 Respiratory Rate 18 Blood Pressure 163/98 H 168/65 H Pulse Oximetry 99 98 Oxygen Delivery Method Room Air Oxygen Flow Rate 12/29/22 08:35 12/29/22 08:44 12/29/22 08:44 Temperature Pulse Rate 74 72 Respiratory Rate 16 12 Blood Pressure 167/72 H Pulse Oximetry 99 99 Oxygen Delivery Method Room Air Oxygen Flow Rate 12/29/22 08:45 12/29/22 08:45 12/29/22 09:00 Temperature Pulse Rate 72 71 Respiratory Rate 16 Blood Pressure 156/70 H Pulse Oximetry 99 Oxygen Delivery Method Room Air Oxygen Flow Rate 12/29/22 09:00 12/29/22 09:15 12/29/22 09:15 Temperature Pulse Rate 68 Respiratory Rate 9 L Blood Pressure 144/67 H 155/67 H Pulse Oximetry 99 Oxygen Delivery Method Oxygen Flow Rate 12/29/22 09:59 12/29/22 10:00 12/29/22 10:00 Temperature Pulse Rate 69 69 Respiratory Rate 15 Blood Pressure 167/70 H Pulse Oximetry 98 98 Oxygen Delivery Method Room Air Oxygen Flow Rate 12/29/22 10:30 12/29/22 11:00 12/29/22 11:30 Temperature Pulse Rate 71 73 74 Respiratory Rate 11 L 15 13 Blood Pressure Pulse Oximetry 100 99 98 Oxygen Delivery Method Oxygen Flow Rate 12/29/22 11:31 12/29/22 11:31 12/29/22 11:45 Temperature Pulse Rate 74 Respiratory Rate 11 L Blood Pressure 132/67 121/56 L Pulse Oximetry 98 Oxygen Delivery Method Oxygen Flow Rate 12/29/22 11:45 12/29/22 12:00 12/29/22 12:00 Temperature Pulse Rate 71 70 Respiratory Rate 13 13 Blood Pressure 115/58 L Pulse Oximetry 97 95 Oxygen Delivery Method Oxygen Flow Rate 12/29/22 12:15 12/29/22 12:15 12/29/22 12:30 Temperature Pulse Rate 71 Respiratory Rate 12 Blood Pressure 115/55 L 120/54 L Pulse Oximetry 93 Oxygen Delivery Method Oxygen Flow Rate 12/29/22 12:30 12/29/22 12:45 12/29/22 12:45 Temperature Pulse Rate 70 70 Respiratory Rate 12 11 L Blood Pressure 116/54 L Pulse Oximetry 93 95 Oxygen Delivery Method Oxygen Flow Rate 12/29/22 13:00 12/29/22 13:00 12/29/22 13:15 Temperature Pulse Rate 70 Respiratory Rate 13 Blood Pressure 124/55 L 116/56 L Pulse Oximetry 98 Oxygen Delivery Method Oxygen Flow Rate 12/29/22 13:15 12/29/22 13:30 12/29/22 13:30 Temperature Pulse Rate 71 72 Respiratory Rate 11 L 12 Blood Pressure 116/57 L Pulse Oximetry 95 96 Oxygen Delivery Method Oxygen Flow Rate 12/29/22 13:45 12/29/22 13:45 12/29/22 14:30 Temperature 96.8 F L Pulse Rate 77 75 Respiratory Rate 15 16 Blood Pressure 145/65 H 127/48 L Pulse Oximetry 98 100 Oxygen Delivery Method Room Air Oxygen Flow Rate 0 Oxygen Delivery Method Room Air Oxygen Flow Rate 0 Narrative Exam Narrative: General:? Patient is well developed and well nourished, in no distress at this time but appears quite lethargic. HEENT:? Normocephalic, atraumatic, extraocular muscles intact, oral pharynx is clear and mucous membranes are moist. Neck: supple and symmetric, trachea is midline, no cervical adenopathy. Negative for JVD Chest:? Normal AP diameter and contour without kyphoscoliosis, no tachypnea, equal chest rise bilaterally. Lungs:? CTA b/l no wheezing rhonchi or rales. Cardio:?RRR no m/r/g. Abdomen: S NT ND. No CVA tenderness. Skin:? Pale, non-jaundiced.? Warm to touch,dry and intact without rashes, ulcerations or petechiae.? Neuro:? Oriented only to name and location, falls asleep easily. But No focal deficits. Objective ECG Impression: NSR, no acute ischemia. Labs 12/29/22 08:24 12/29/22 08:24 Labs: Laboratory Results - last 24 hr 12/29/22 12/29/22 12/29/22 08:24 10:13 10:47 WBC 8.0 RBC 3.76 L Hgb 11.7 L Hct 34.2 L MCV 91.0 MCH 31.1 MCHC 34.2 RDW 14.6 Plt Count 192 Neut % (Auto) 52.6 Lymph % (Auto) 26.8 [place] % (Auto) 7.5 Eos % (Auto) 12.2 H Baso % (Auto) 0.9 Neut # (Auto) 4200 Lymph # (Auto) 2100 [place]ball # (Auto) 600 Eos # (Auto) 1000 H Baso # (Auto) 100 PT 12.5 INR 1.1 APTT 29 ABG Sample Site ABG pH ABG pCO2 ABG pO2 ABG HCO3 ABG Total CO2 ABG O2 Saturation ABG Base Excess FiO2 Sodium 139 Potassium 4.3 Chloride 102 Carbon Dioxide 28 BUN 18 Creatinine 0.85 Estimated GFR > 60 BUN/Creatinine Ratio 21.2 Glucose 115 H Lactate 4.2 H* Calcium 9.8 Total Bilirubin 0.5 AST 27 ALT 25 Alkaline Phosphatase 87 Ammonia Total Creatine Kinase 40 L Troponin I < 0.012 Total Protein 7.2 Albumin 4.1 Globulin 3.1 Albumin/Globulin Ratio 1.3 Procalcitonin 0.08 Urine Color Yellow Urine Appearance Clear Urine pH 5.0 Ur Specific [place] 1.010 Urine Protein Negative Urine Glucose (UA) Negative Urine Ketones Negative Urine Occult Blood Negative Urine Nitrate Negative Urine Bilirubin Negative Urine Urobilinogen 0.2 Ur Leukocyte Esterase 1+ H Urine RBC 0-1/hpf Urine WBC 5-10/hpf H Ur Squamous Epith Cells None seen Urine Bacteria Occasional (0-1) Ur Culture Indicated? Specimen cultured U Opiates 300ng/mL cut Negative Ur Oxycodone Screen Positive H Urine Methadone Screen Negative Ur Barbiturates Screen Positive H U Tricyclic Antidepress Negative Ur Phencyclidine Scrn Negative Ur Amphetamines Screen Negative U Methamphetamines Scrn Negative Ur MDMA Scrn (Ecstasy) Negative U Benzodiazepines Scrn Negative Urine Cocaine Screen Negative U Marijuana (THC) Screen Negative Ethyl Alcohol < 10 Ketones 12/29/22 12/29/22 12/29/22 10:51 11:00 11:05 WBC RBC Hgb Hct MCV MCH MCHC RDW Plt Count Neut % (Auto) Lymph % (Auto) [place] % (Auto) Eos % (Auto) Baso % (Auto) Neut # (Auto) Lymph # (Auto) [place] # (Auto) Eos # (Auto) Baso # (Auto) PT INR APTT ABG Sample Site Left radial ABG pH 7.42 ABG pCO2 38.7 ABG pO2 86 ABG HCO3 25 ABG Total CO2 26 ABG O2 Saturation 97 ABG Base Excess 1.0 FiO2 21 Sodium Potassium Chloride Carbon Dioxide BUN Creatinine Estimated GFR BUN/Creatinine Ratio Glucose Lactate Calcium Total Bilirubin AST ALT Alkaline Phosphatase Ammonia 99 H Total Creatine Kinase Troponin I Total Protein Albumin Globulin Albumin/Globulin Ratio Procalcitonin Urine Color Urine Appearance Urine pH Ur Specific [place] Urine Protein Urine Glucose (UA) Urine Ketones Urine Occult Blood Urine Nitrate Urine Bilirubin Urine Urobilinogen Ur Leukocyte Esterase Urine RBC Urine WBC Ur Squamous Epith Cells Urine Bacteria Ur Culture Indicated? U Opiates 300ng/mL cut Ur Oxycodone Screen Urine Methadone Screen Ur Barbiturates Screen U Tricyclic Antidepress Ur Phencyclidine Scrn Ur Amphetamines Screen U Methamphetamines Scrn Ur MDMA Scrn (Ecstasy) U Benzodiazepines Scrn Urine Cocaine Screen U Marijuana (THC) Screen Ethyl Alcohol Ketones 0.24 12/29/22 12:11 WBC RBC Hgb Hct MCV MCH MCHC RDW Plt Count Neut % (Auto) Lymph % (Auto) [place] % (Auto) Eos % (Auto) Baso % (Auto) Neut # (Auto) Lymph # (Auto) [place] # (Auto) Eos # (Auto) Baso # (Auto) PT INR APTT ABG Sample Site ABG pH ABG pCO2 ABG pO2 ABG HCO3 ABG Total CO2 ABG O2 Saturation ABG Base Excess FiO2 Sodium Potassium Chloride Carbon Dioxide BUN Creatinine Estimated GFR BUN/Creatinine Ratio Glucose Lactate 2.1 Calcium Total Bilirubin AST ALT Alkaline Phosphatase Ammonia Total Creatine Kinase Troponin I Total Protein Albumin Globulin Albumin/Globulin Ratio Procalcitonin Urine Color Urine Appearance Urine pH Ur Specific [place] Urine Protein Urine Glucose (UA) Urine Ketones Urine Occult Blood Urine Nitrate Urine Bilirubin Urine Urobilinogen Ur Leukocyte Esterase Urine RBC Urine WBC Ur Squamous Epith Cells Urine Bacteria Ur Culture Indicated? U Opiates 300ng/mL cut Ur Oxycodone Screen Urine Methadone Screen Ur Barbiturates Screen U Tricyclic Antidepress Ur Phencyclidine Scrn Ur Amphetamines Screen U Methamphetamines Scrn Ur MDMA Scrn (Ecstasy) U Benzodiazepines Scrn Urine Cocaine Screen U Marijuana (THC) Screen Ethyl Alcohol Ketones Assessment & Plan Assessment & Plan narrative: Josue Mesa this is a 66-year-old male with history NSTEMI, right foot osteomyelitis with 4th right toe amputation, insulin-dependent diabetes with peripheral autonomic neuropathy, chronic right foot/toe diabetic wound, essential tremor morbid obesity, hypertension, AGATHA/Cpap admitted with new diagnosis of hepatic encephalopathy. 1. New diagnosis of hepatic encephalopathy with new diagnosis of cirrhosis - patient reportedly not a drinker, has lived at [facility] for >5 years per patient. - Suspect underlying ROSARIO leading to cirrhosis. CT shows nodular appearing liver and Ammonia was 99 on admission. - check abdominal / RUQ ultrasound to check for portal thrombosis. - start lactulose for hepatic encephalopathy, titrate to 3-5 BM per day. Stop opiates for now as well. - ordered hepatitis B and C serologies. Will check a tylenol level now, though no significant transaminase elevations. - MELD - Na score of 7 is low. Once encephalopathy improves will need outpatient follow up with GI physician. 2. Insulin-dependent type 2 diabetes, with peripheral neuropathy, history right 4th toe amputation, chronic diabetic foot ulceration, acute on chronic, present on admission -well controlled, admit blood sugar 140, A1c 6.8% -patient admitted under diabetic protocols monitor for hyper/hypoglycemia -glucose checks a.c. HS, carbohydrate diet -continue Lantus, NovoLog and gabapentin 3. Hypertension essential, chronic, present on admission -continue home medications 4. Essential tremor, chronic, present on admission -continue Primidone 5. Obstructive sleep apnea, chronic, with CPAP, present on admission -respiratory consult placed-offer patient's CPAP support Code: Full, surrogate brother Lokesh and sister Safia DVT: Lovenox I have utilized all available immediate resources to obtain, update, or review the patient's current medications. Dispo: admitted inpatient as his stay is expected to exceed two midnights. Additional history obtained from the ER provider and review of outside records. I have personally reviewed patient's imaging, EKG, labs to formulate the above assessment and plan.
--- NOTE | 2022-12-29 16:01 | DI.US.S_ITS ---
PROCEDURE: US ABDOMEN LIMITED INDICATIONS: RUQ, EVALUATE FOR PORTAL THROMBOSIS, NEW DX CIRRHOSIS TECHNIQUE: Real-time focused scanning was performed of the abdomen, with image documentation. COMPARISON: , CT, CT CHEST ABD PEL WO CON, 12/29/2022, 11:21. FINDINGS: Liver measures 16.7 cm with mild increased echogenicity. No visualized thrombus within the portal vein on current exam. Varices are present. Stones are identified within the gallbladder. Wall thickness is at the upper limits of normal measuring 3.1 cm. Common bile duct measures 5.9 mm. IMPRESSION: No definitive portal venous thrombosis. Dictated by: Janice Amador M.D. on 12/29/2022 at 17:56 Approved by: Janice Amador M.D. on 12/29/2022 at 17:57
[2022-12-29] MEDS: LACTULOSE 20 GM/30 ML SOLUTION PO ×2 (16:16→20:36)
[2022-12-29 16:38] LABS: Acetaminophen < 10 ug/mL (10-30)
[2022-12-29] MEDS: OXYCODONE IR 5 MG TABLET PO ×2 (17:20→20:34)
[2022-12-29] MEDS: INSULIN GLARGINE 100 UNIT/ML 3ML PEN 10 UNIT SUBCUT (20:41)
[2022-12-30] VITALS (7 sets, daily range): BP systolic 107–149; BP diastolic 43–61; PULSE 70–76; RESP 17–18; TEMP 36.4–36.7; O2SAT 96–100
[2022-12-30] MEDS: OXYCODONE IR 5 MG TABLET PO ×4 (00:09→11:58)
[2022-12-30 05:43] LABS: Add Manual Diff / Slide Review NO; Basophils Absolute Auto 100 /uL (0-100); Basophils Percent Auto 0.7 % (0-2); Eosinophils Absolute Auto 900 /uL (0-450); Eosinophils Percent Auto 10.5 % (2-4); Hematocrit 29.8 % (41-53); Hemoglobin 10.4 g/dL (13.5-17.5); Lymphocytes Absolute Auto 2100 /uL (1100-4500); Lymphocytes Percent Auto 23.9 % (25-40); Mean Corpuscular HGB Conc 34.8 % (30-36); Mean Corpuscular Hemoglobin 31.5 PG (26-34); Mean Corpuscular Volume 90.6 fL (80-100); Monocytes Absolute Auto 700 /uL (0-900); Neutrophils Absolute Auto 5100 /uL (1500-7000); Neutrophils Percent Auto 56.9 % (50-75); Platelet Count 178 X10^3/uL (150-400); Red Blood Cell Count 3.29 X10^6/uL (4.5-5.9); Red Cell Distribution Width 14.6 % (11.6-14.8); White Blood Cell Count 8.9 X10^3/uL (4.5-11.0)
[2022-12-30 05:57] LABS: Hemoglobin A1C% w Est Avg Glu 6.6 % (4.0-6.0)
[2022-12-30 06:01] LABS: Alanine Aminotransferase 22 IU/L (<50); Albumin 3.4 g/dL (3.5-5.0); Albumin Globulin Ratio 1.3 (1.0-2.8); Alkaline Phosphatase 71 U/L (38-126); Aspartate Aminotransferase 24 IU/L (17-59); BUN Creatinine Ratio 20.3 (6-22); Bilirubin Total 0.5 mg/dL (0.2-1.3); Blood Urea Nitrogen 13 mg/dL (9-20); Calcium 9.2 mg/dL (8.4-10.2); Carbon Dioxide 29 mmol/L (22-32); Chloride 106 mmol/L (98-107); Estimated Glomerular Filt Rate > 60 mL/min (>60); Globulin 2.7 g/dL (1.7-4.1); Glucose 87 mg/dL (80-110); HEMOLYSIS < 15 (0-50); Magnesium 1.9 mg/dL (1.6-2.3); Potassium 3.6 mmol/L (3.4-5.1); Sodium 139 mmol/L (137-145); Total Protein 6.1 g/dL (6.3-8.2)
[2022-12-30 06:30] LABS: TSH w/ Reflex to FT4 0.55 uIU/mL (0.47-4.68)
[2022-12-30 06:57] LABS: Hep C Virus Ab w/Reflex Quant NEGATIVE s/c (NEGATIVE); Hepatitis B Surface Antigen NEGATIVE s/c (NEGATIVE)
[2022-12-30] MEDS: MULTIVITAMIN 1 TABLET 1 TAB PO (08:50)
[2022-12-30] MEDS: PANTOPRAZOLE DR 40 MG TABLET PO (08:50)
[2022-12-30] MEDS: ENOXAPARIN 40 MG/0.4 ML SYRINGE SUBCUT (08:50)
[2022-12-30] MEDS: ACETAMINOPHEN 325 MG TABLET 650 MG PO (08:50)
[2022-12-30] MEDS: INSULIN GLARGINE 100 UNIT/ML 3ML PEN 40 UNIT SUBCUT (08:55)
--- NOTE | 2022-12-30 11:51 | P.DS_ITS ---
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 Patient is unable to reliably tell his presenting story so it is combined from multiple sources. Patient reports he has been feeling tired for the last couple of days, but right now is unable to elaborate further. He does not feel focal weakness or numbness, but globally weak and tired. He is normally alert and oriented, though has slow speech according to prior exams in this hospital about a year ago. Today he appeared fine this morning, but became very fatigued and confused at his assisted living and he was sent to the emergency room. In the emergency room, his vitals were unremarkable, initially a stroke workup was obtained including MRI which is unremarkable. Laboratory evaluation was notable for an unremarkable CBC, normal ABG, chemistry panel except for an ammonia of 99. CT imaging of his abdomen did show a nodular appearing liver. The patient has no known diagnosis of cirrhosis according to available sources. He was admitted for further evaluation and management of a new diagnosis of cirrhosis with new severe hepatic encephalopathy. Discharge Providers Provider Date of admission: 12/29/22 13:50 Discharge Date: 12/30/22 Primary care physician: BERRY Singletary Discharge provider: Thiago Hitchcokc DO Summary Hospital Course Discharge Diagnosis: 1. New diagnosis of hepatic encephalopathy with new diagnosis of cirrhosis 2. Insulin-dependent type 2 diabetes, with peripheral neuropathy, history right 4th toe amputation, chronic diabetic foot ulceration, acute on chronic, present on admission 3. Hypertension essential, chronic, present on admission 4. Essential tremor, chronic, present on admission 5. Obstructive sleep apnea, chronic, with CPAP, present on admission 6. Lipoma Hospital Course: This is a 67 year old male with PMH of DM2 with peripheral neuropathy, prior amputation chroinc foot ulcerations, HTN, Essential tremor, and AGATHA who presented with altered mental status. He was evaluated as a code stroke in the ER with negative workup including MRI. Lab evaluation showed elevated ammonia level at 99 and nodular liver on CT imaging consistent with hepatic encephalopathy. He had no known prior liver disease. Abdominal ultrasound showed no portal venous thrombosis. Hepatitis serologies showed no evidence of infection. His MELD-Na score was low at 7. He had improvement much more quickly than expected with rapid improvement after two doses of lactulose. He had multiple bowel movements and he returned to baseline. He was discharged on daily lactulose, and further evaluation with outpatient GI or hepatology is recommended for further evaluation as to the etiology of his possible new cirrhosis. His home opiates were also reduced as this may contribute to encephalopathy, and his tylenol is recommended to be reduced as well to approx 2 g per day at most. No diabetes medication changes are recommended nor are other medication changes. Lactulose should be titrated to between 3-5 bowel movements per day at his living facility. He was also noted to have a likely lipoma on his back in the ER, outpatient follow up with general surgery is recommended if removal is desired. Time Spent with Patient Time spent: Greater than 30 minutes Exam Vital Signs (past 8 hours): - 12/30/22 07:40 12/30/22 08:00 12/30/22 11:00 Temperature 97.7 F Pulse Rate 72 Respiratory Rate 18 Blood Pressure 149/61 H Pulse Oximetry 96 100 97 Oxygen Delivery Method Room Air Room Air Oxygen Flow Rate 0 0 0 Oxygen Delivery Method Room Air Oxygen Flow Rate 0 Narrative Exam Narrative: General:? Patient is well developed and well nourished, in no distress at this emma HEENT:? Normocephalic, atraumatic, extraocular muscles intact, oral pharynx is clear and mucous membranes are moist. Neck: supple and symmetric, trachea is midline, no cervical adenopathy. Negative for JVD Chest:? Normal AP diameter and contour without kyphoscoliosis, no tachypnea, equal chest rise bilaterally. Lungs:? CTA b/l no wheezing rhonchi or rales. Cardio:?RRR no m/r/g. Abdomen: S NT ND. No CVA tenderness. Skin:? Pale, non-jaundiced.? Warm to touch,dry and intact without rashes, ulcerations or petechiae.? Neuro:? Oriented only to name and location and time now.No focal deficits. Objective Labs 12/30/22 05:25 12/30/22 05:25 Labs: Laboratory Results - last 24 hr 12/29/22 12/29/22 12/29/22 10:47 10:51 12:11 WBC RBC Hgb Hct MCV MCH MCHC RDW Plt Count Neut % (Auto) Lymph % (Auto) [place] % (Auto) Eos % (Auto) Baso % (Auto) Neut # (Auto) Lymph # (Auto) [place] # (Auto) Eos # (Auto) Baso # (Auto) Sodium Potassium Chloride Carbon Dioxide BUN Creatinine Estimated GFR BUN/Creatinine Ratio Glucose Hemoglobin A1c Lactate 2.1 Calcium Magnesium Total Bilirubin AST ALT Alkaline Phosphatase Total Protein Albumin Globulin Albumin/Globulin Ratio TSH Urine Color Yellow Urine Appearance Clear Urine pH 5.0 Ur Specific [place] 1.010 Urine Protein Negative Urine Glucose (UA) Negative Urine Ketones Negative Urine Occult Blood Negative Urine Nitrate Negative Urine Bilirubin Negative Urine Urobilinogen 0.2 Ur Leukocyte Esterase 1+ H Urine RBC 0-1/hpf Urine WBC 5-10/hpf H Ur Squamous Epith Cells None seen Urine Bacteria Occasional (0-1) Ur Culture Indicated? Specimen cultured Acetaminophen < 10 Hep Bs Antigen Hepatitis C Antibody 12/30/22 05:25 WBC 8.9 RBC 3.29 L Hgb 10.4 L Hct 29.8 L MCV 90.6 MCH 31.5 MCHC 34.8 RDW 14.6 Plt Count 178 Neut % (Auto) 56.9 Lymph % (Auto) 23.9 L [place] % (Auto) 8.0 Eos % (Auto) 10.5 H Baso % (Auto) 0.7 Neut # (Auto) 5100 Lymph # (Auto) 2100 [place] # (Auto) 700 Eos # (Auto) 900 H Baso # (Auto) 100 Sodium 139 Potassium 3.6 Chloride 106 Carbon Dioxide 29 BUN 13 Creatinine 0.64 L Estimated GFR > 60 BUN/Creatinine Ratio 20.3 Glucose 87 Hemoglobin A1c 6.6 H Lactate Calcium 9.2 Magnesium 1.9 Total Bilirubin 0.5 AST 24 ALT 22 Alkaline Phosphatase 71 Total Protein 6.1 L Albumin 3.4 L Globulin 2.7 Albumin/Globulin Ratio 1.3 TSH 0.55 Urine Color Urine Appearance Urine pH Ur Specific [place] Urine Protein Urine Glucose (UA) Urine Ketones Urine Occult Blood Urine Nitrate Urine Bilirubin Urine Urobilinogen Ur Leukocyte Esterase Urine RBC Urine WBC Ur Squamous Epith Cells Urine Bacteria Ur Culture Indicated? Acetaminophen Hep Bs Antigen Negative Hepatitis C Antibody Negative [facility] Medical History (Updated 11/09/23 @ 10:13 by Stephen Bradford MD) History of non-ST elevation myocardial infarction (NSTEMI) AGATHA treated with BiPAP Severe muscle deconditioning Sedentary lifestyle Closed non-physeal fracture of proximal phalanx of great toe with malunion Chronic ulcer of right foot limited to breakdown of skin Insulin dependent diabetes mellitus Peripheral vascular disease Hypertension Depression Toe amputation status Peripheral autonomic neuropathy Sepsis (02/27/17) Cellulitis (02/27/17) Sleep apnea MRSA (methicillin resistant Staphylococcus aureus) (02/27/17) Visit for wound care Essential tremor Thrombocytopenia Morbid obesity Polypharmacy Diabetes Surgical History (Updated 01/16/22 @ 21:04 by MODESTO Franklin) History of amputation of lesser toe of right foot Family History Father Cancer Congestive heart failure Mother Cancer Social History household members: none Smoking Status: Never smoker alcohol intake: current Discharge Plan Discharge Plan Patient Disposition: Assisted Living Transfer to: [facility] Assisted Living Provider Discharge Comment: 67M with multiple medical conditions, lives at [facility] who presented with altered mental status. He had elevated ammonia level and improved quickly with lactulose. This is consistent with hepatic encephalopathy. Urine is growing gram positive cocci, given drummond sensitive E. Faecalis in the past this is likely similar. As a precaution for UTI discharge with 4 additional doses of levofloxacin, though suspect colonization but in this scenario it can be difficult to tell. He will need outpatient referral to GI for further evaluation of his hepatic encephalopathy, dosing of his pain medications were reduced as well. Discharge orders & Medications Discharge Orders: Discharge (Order); Ordered 12/30/22 Ordered By: Thiago Hitchcock Prescriptions: New acetaminophen 325 mg Tablet 650 mg PO Q6H PRN (Reason: Fever/Mild Pain (1-3)) Qty: 60 0RF lactulose 10 gram/15 mL Solution 20 g PO DAILY 30 Days Qty: 946 0RF oxycodone 5 mg Tablet 5 mg PO Q6H PRN (Reason: Pain, Moderate (4-6)) Qty: 25 0RF levofloxacin 750 mg tablet 750 mg PO DAILY Qty: 4 0RF Continued gabapentin 800 MG tablet 1,200 mg PO TID Qty: 0 furosemide 80 MG tablet 40 mg PO BID Qty: 0 enalapril maleate 20 MG tablet 20 mg PO Q DAY Qty: 0 multivitamin Capsule 1 cap PO DAILY vitamin B complex Capsule 1 cap PO DAILY primidone 50 mg Tablet 250 tab PO BID pantoprazole 40 mg tablet,delayed release (DR/EC) 40 mg PO DAILY insulin glargine [Lantus Solostar U-100 Insulin] 100 UNIT/1 ML insulin pen See Rx Instructions .ROUTE .COMPLEX Rx Instructions: 40 units in AM, 10 units HS Discontinued acetaminophen [Tylenol Extra Strength] 500 MG tablet 1,000 mg PO Q4H PRN (Reason: Pain) Qty: 0 polyethylene glycol 3350 17 gram/dose Powder 17 g PO PRN PRN (Reason: Constipation) bisacodyl 5 mg Tablet 10 mg PO PRN PRN (Reason: Constipation) oxycodone 10 mg Tablet 10 mg PO Q4H PRN (Reason: Pain) Follow up/Referrals: Barbara Rushing ARNP [Primary Care Provider] - Discharge Health Status Multidrug resistant organism: No MDRO Precautions: [place] Diet/Activity/Treatments Diet: Diet as Tolerated Liquid consistency: Normal/Thin Food texture: Regular Activity: As tolerated, no restrictions Visit Report/Discharge Packet Stand Alone Forms: Patient Portal/API, Stroke Signs & Symptoms Discharge Data Primary Care Provider: Barbara Rushing Quality VTE Deep Vein Thrombosis/Pulmonary Embolism Present on Admission: No
[2022-12-30] MEDS: INSULIN LISPRO 100 UNIT/ML 3ML VIAL SUBCUT (11:58)
[2022-12-30] MEDS: levoFLOXacin 250 MG TABLET 750 MG PO (11:58)
--- NOTE | 2022-12-30 12:52 | CM.DANOTE ---
DCP Assessment Note Patient is a 67yo M here under the care of the hospitalist team following AMS. PCP DR. Rushing [facility] and Medicaid LIE DETECTOR OPERATOR reviewed EMR. Per provider in rounds, likely to d/c today pending patient's mental status. LIE DETECTOR OPERATOR entered room and introduced self and role. Patient accompanied by many family members in room. Patient lives at [facility]. Patient reports being pretty independent there for the most part. Patient uses a walker a baseline and has a powerchair that he uses to take to his OP wound care appointments. Patient reports that his family could assist him in transport back to facility. LIE DETECTOR OPERATOR coordinated with [facility] staff to see if he needs a PT eval prior to returning. Due to patient being at baseline, they report he does not. LIE DETECTOR OPERATOR gave RN signed med list/new prescriptions for patient to give to him at discharge. Updated RN on dcp. Plan: patient will return to [facility] today. Family to transport in POV. CM team will continue to follow as needed. IRENE Deleon Discharge Planning/Care Management CM Discharge Assessment Start: 12/30/22 12:50 Freq: Status: Active Protocol: Document 12/30/22 12:50 (Rec: 12/30/22 12:52 [id number]) Discharge Planning Assessment Assigned Drop Board Worker IRENE Villanueva DPOA/Assigned Designee Name Lokesh SMITH) Contact Information [phone] Advance Directives? Yes: POLST Advance Directives on File Yes: Dated 03/10/16 History Provided By Patient,Medical Record Prior Living Arrangements Assisted Living Household Members none Type of transporation used prior to Relies on Others admit Facility Name Admitted From: [facility] Living Willing to Return to Facility? Yes Independent with ADL's No Is patient alert and oriented? Yes Needs Assistance With Meal Prep,Managing Medications ,Home Chores / Shopping Community Services used prior to Wound Care admission: Comment OP Wound Care DME Already Rented / Owned FWW / Walker Comment powerchair Barriers to Discharge No Discharge Plan Assisted Living Facility Transportation Arrangement family will transport to facility Referrals Initiated None needed Whiteboard Updated in Patient Room with Yes name and ext. # of Drop Board Worker Review Status In Process Next Review Type Continued Stay Review
[2022-12-31 06:25] LABS: Hepatitis B Core Antibody Negative (Negative)
[2023-01-02 12:08] LABS: Hepatitis B Surf Ab Qualitativ Non Reactive (.)
== END 2022-12-30 14:49 | DRG 434 ==
LOC: ED 10:13 → AC 13:51
PROVIDERS: Admitting Provider Internal Medicine; Emergency Provider Emergency Medicine; Family Provider Nurse Practitioner Family; PCP Nurse Practitioner Family; Referring Provider Emergency Medicine; Visit Provider Internal Medicine
DX: K74.60 Unspecified cirrhosis of liver (principal); K76.82 Hepatic encephalopathy; E11.42 Type 2 diabetes mellitus with diabetic polyneuropathy; E11.621 Type 2 diabetes mellitus with foot ulcer; L97.519 Non-pressure chronic ulcer of other part of right foot with unspecified severity; I10 Essential (primary) hypertension; R25.1 Tremor, unspecified; G47.33 Obstructive sleep apnea (adult) (pediatric); Z79.4 Long term (current) use of insulin; I25.2 Old myocardial infarction; Z89.421 Acquired absence of other right toe(s)
CPT/HCPCS: 36415; 36600; 70450; 70496; 70498; 70551; 71250; 74176; 76705; 80053; 80305; 80320; 80329; 81001; 81003; 82009; 82140; 82550; 82805; 82962; 83036; 83605; 83735; 84145; 84443; 84484; 85025; 85610; 85730; 86704; 86706; 86803; 87040; 87077; 87086; 87186; 87340; 93005; 99285; Q3014; G0480; J1650; J1815; Q9967

== ENCOUNTER 2023-01-11 13:27 | Emergency (ER) | payer MEDICARE, MEDICAID, SELFPAY ==
[2022-12-29 15:10] VITALS: BMI 39.4
[2023-01-11] VITALS (15 sets, daily range): BP systolic 140–163; BP diastolic 63–95; PULSE 69–78; RESP 14–20; TEMP 36.9; O2SAT 93–99; BMI 38.3
[2023-01-11 13:53] LABS: Add Manual Diff / Slide Review NO; Basophils Absolute Auto 100 /uL (0-100); Basophils Percent Auto 0.8 % (0-2); Eosinophils Absolute Auto 1200 /uL (0-450); Hematocrit 34.1 % (41-53); Hemoglobin 11.7 g/dL (13.5-17.5); INR 1.1 (0.9-1.3); Lymphocytes Absolute Auto 2400 /uL (1100-4500); Lymphocytes Percent Auto 26.7 % (25-40); Mean Corpuscular HGB Conc 34.2 % (30-36); Mean Corpuscular Hemoglobin 31.2 PG (26-34); Mean Corpuscular Volume 91.3 fL (80-100); Monocytes Absolute Auto 500 /uL (0-900); Neutrophils Absolute Auto 4700 /uL (1500-7000); Neutrophils Percent Auto 53.5 % (50-75); Platelet Count 213 X10^3/uL (150-400); Red Blood Cell Count 3.73 X10^6/uL (4.5-5.9); Red Cell Distribution Width 14.4 % (11.6-14.8); White Blood Cell Count 8.9 X10^3/uL (4.5-11.0)
[2023-01-11 13:58] LABS: Alanine Aminotransferase 23 IU/L (<50); Albumin 4.1 g/dL (3.5-5.0); Albumin Globulin Ratio 1.3 (1.0-2.8); Alkaline Phosphatase 75 U/L (38-126); Aspartate Aminotransferase 40 IU/L (17-59); BUN Creatinine Ratio 19.2 (6-22); Bilirubin Total 0.6 mg/dL (0.2-1.3); Blood Urea Nitrogen 15 mg/dL (9-20); Carbon Dioxide 32 mmol/L (22-32); Chloride 101 mmol/L (98-107); Estimated Glomerular Filt Rate > 60 mL/min (>60); Globulin 3.1 g/dL (1.7-4.1); Glucose 128 mg/dL (80-110); HEMOLYSIS 22 (0-50); Lipase 38 U/L (23-300); Potassium 4.4 mmol/L (3.4-5.1); Sodium 139 mmol/L (137-145); Total Protein 7.2 g/dL (6.3-8.2)
[2023-01-11 14:08] LABS: Ammonia (NH3) 68 umol/L (9-30)
--- NOTE | 2023-01-11 14:23 | DI.CT.S_ITS ---
PROCEDURE: CT HEAD/BRAIN WO CON INDICATIONS: confusion, elevated ammonia TECHNIQUE: Noncontrast 4.5 mm thick angled axial sections acquired from the foramen magnum to the vertex, with coronal and sagittal reformats. For radiation dose reduction, the following was used: automated exposure control, adjustment of mA and/or kV according to patient size. COMPARISON: [facility], CT, CT HEAD/BRAIN WO CON, 09/15/2017, 3:26. FINDINGS: Image quality: Excellent. CSF spaces: Basal cisterns are patent. No extra-axial fluid collections. Ventricles are normal in size and shape. Brain: No midline shift. No intracranial masses or hemorrhage. Mckay-white matter interface is normal. Moderate cerebral and cerebellar volume loss with multifocal white matter chronic ischemic change noted. Atherosclerotic calcification noted associated with cavernous segments of both internal carotid arteries. Skull and face: Calvarium and visualized facial bones are intact, without suspicious lesions. Bilateral intraocular lens replacements noted. Sinuses: Visualized sinuses and mastoids are clear. IMPRESSION: Moderate atrophy and white matter chronic ischemic change without intracranial hemorrhage or mass effect. Approved by: Wil Whitfield M.D. on 01/11/2023 at 13:46
--- NOTE | 2023-01-11 14:23 | DI.RAD.S_ITS ---
PROCEDURE: XR CHEST 1V INDICATIONS: confusion, elevated ammonia TECHNIQUE: One view of the chest was acquired. COMPARISON: [facility], CR, XR CHEST 1V, 01/16/2022, 12:35. FINDINGS: Surgical changes and devices: None. Lungs and pleura: Lungs are clear. No pleural effusions or pneumothorax. Mediastinum: Mediastinal contours appear normal. Cardiomegaly. Bones and chest wall: No suspicious bony lesions. Overlying soft tissues appear unremarkable. IMPRESSION: Cardiomegaly. No evidence acute pulmonary process. Dictated by: Otoniel Valadez M.D. on 01/11/2023 at 15:05 Approved by: Otoniel Valadez M.D. on 01/11/2023 at 15:05
--- NOTE | 2023-01-11 14:23 | DI.US.S_ITS ---
PROCEDURE: US ABDOMEN LIMITED INDICATIONS: CONFUSION. ELEVATED AMMONIA. TECHNIQUE: Real-time focused scanning was performed of the abdomen, with image documentation. COMPARISON: [facility], CT, CT CHEST ABD PEL WO CON, 12/29/2022, 11:21. [facility], US, US ABDOMEN LIMITED, 12/29/2022, 16:45. FINDINGS: The liver demonstrates enlarged size. The liver demonstrates generalized moderately increased echogenicity. This decreases ultrasound sensitivity for detection of hepatic masses. The liver demonstrates mildly lobular contour. The main portal vein demonstrates normal size and demonstrates normal appearing, hepatopetal flow. Adjacent to the liver, there are abnormally prominent veins seen. Multiple layering gallstones are seen, with the largest measuring 1.8 cm. The gallbladder wall is not thickened, measuring 3 mm or less. No specific pericholecystic fluid is seen. The sonographic Howell sign is negative. The common bile duct is dilated at 9 mm. The pancreas is overall not well seen. This study is limited by body habitus and bowel gas as well as difficulty with positioning and breath holding instructions S. IMPRESSION: Enlarged, cirrhotic appearing liver. Upper abdominal varices are seen within the right lower quadrant, which are likely to cirrhosis. Mild biliary ductal dilatation is seen, measuring 9 mm. - If clinically appropriate, an MRCP could be considered for further evaluation (assuming that there is no contraindication to MRI). Gallstones are seen, yet without additional sonographic signs of cholecystitis. Please correlate with physical examination findings, patient presentation, and laboratory values. Dictated by: Tyrone Vila M.D. on 01/11/2023 at 14:53 Approved by: Tyrone Vila M.D. on 01/11/2023 at 14:57
[2023-01-11] MEDS: LACTULOSE 20 GM/30 ML SOLUTION PO (14:46)
--- NOTE | 2023-01-11 15:11 | ED.NEUROSD ---
HPI - Neuro Symptoms/Deficit General Chief Complaint: Neuro Symptoms/Deficit Stated Complaint: increased confusion/recent admission Time Seen by Provider: 01/11/23 14:23 Source: patient and EMS Mode of arrival: EMS History of Present Illness HPI Narrative: 67-year-old male with history of NSTEMI, prior right foot osteomyelitis with right toe amputation, insulin-dependent diabetes with peripheral neuropathy, chronic right foot and diabetic wound, essential tremor, morbid obesity, hypertension, AGATHA, liver failure. Patient presents from [facility] for altered mental status. Patient can tell me his name he does repeat things over and over initially. On recheck an review of HPI patient states he is felt increasingly confused. He denies headaches, no fevers, no chest pain or shortness of breath, no abdominal pain, no nausea no vomiting. He states he did stop his lactulose he thinks about a week ago secondary to diarrhea. He states diarrhea was quite severe stopped several days ago. He does not think he is had any urinary symptoms. Received lactulose in the department and him and his feel his mentation is improving. Patient notes that he was hospitalized was started on lactulose but does not know exactly when he stopped it. Per EMS his blood sugar was appropriate. He denies history of hepatitis, ETOH use or liver issues in the past. Denies any heart attacks or strokes. States he is diabetic on diabetes no hypertension dyslipidemia. He is accompanied by his . On Anticoagulants: No Related Data Home Medications Medication Instructions Recorded Confirmed gabapentin 800 mg tablet 1,200 mg PO TID ##0 10/07/12 01/11/23 furosemide 80 mg tablet 40 mg PO BID ##0 10/15/15 01/11/23 enalapril maleate 20 mg tablet 20 mg PO Q DAY ##0 03/06/16 01/11/23 primidone 50 mg tablet 250 tab PO BID 02/07/18 01/11/23 multivitamin 1 cap PO DAILY 11/02/18 12/29/22 vitamin B complex 1 cap PO DAILY 11/02/18 01/11/23 insulin glargine 100 unit/mL (3 See Rx Instructions .Route .COMPLEX 01/16/22 01/11/23 mL) subcutaneous pen (Lantus Solostar U-100 Insulin) pantoprazole 40 mg tablet,delayed 40 mg PO DAILY 01/16/22 01/11/23 release ferrous sulfate 325 mg (65 mg 325 mg PO DAILY 01/11/23 01/11/23 iron) tablet Previous Rx's Medication Instructions Recorded acetaminophen 325 mg tablet 650 mg (2 x 325 mg) PO Q6H PRN 12/30/22 Fever/Mild Pain (1-3) #60 tabs lactulose 10 gram/15 mL oral 20 g (30 mL) PO DAILY 30 days #946 12/30/22 solution mL oxycodone 5 mg tablet 5 mg PO Q6H PRN Pain, Moderate 12/30/22 (4-6) #25 tabs Allergies Allergy/AdvReac Type Severity Reaction Status Date / Time amoxicillin [From AUGMENTIN] AdvReac Mild UPSET Verified 01/11/23 13:43 STOMACH clavulanic acid AdvReac Mild UPSET Verified 01/11/23 13:43 [From AUGMENTIN] STOMACH Review of Systems Review of Systems ROS Unobtainable: All systems reviewed & are unremarkable except as noted in HPI and below Hematologic/Lymphatic On Anticoagulants: No Patient History Medical History History of non-ST elevation myocardial infarction (NSTEMI) AGATHA treated with BiPAP Severe muscle deconditioning Sedentary lifestyle Closed non-physeal fracture of proximal phalanx of great toe with malunion Chronic ulcer of right foot limited to breakdown of skin Insulin dependent diabetes mellitus Peripheral vascular disease Hypertension Depression Toe amputation status Peripheral autonomic neuropathy Sepsis (02/27/17) Cellulitis (02/27/17) Sleep apnea MRSA (methicillin resistant Staphylococcus aureus) (02/27/17) Visit for wound care Essential tremor Thrombocytopenia Morbid obesity Polypharmacy Diabetes Surgical History History of amputation of lesser toe of right foot Family History Father Cancer Congestive heart failure Mother Cancer Social History household members: none Smoking Status: Never smoker alcohol intake: current Smoking Status: Never smoker alcohol intake frequency: other Substance Use Type: does not use Exam Narrative Exam Narrative: GEN: Obese male, alert and oriented, patient does answer most questions appropriately but does sometimes repeat himself, or drift off in his words, patient appears to be in mild distress. HEENT: Atraumatic, pupils are equal round reactive to light, extraocular movements are intact, no scleral icterus, nares are clear, TMs are clear with no fluid, there is no conjunctival pallor. Throat is clear without any exudates, erythema, tonsillar enlargement or uvular deviation HEART: Regular rate and rhythm without murmur, clicks, rubs. LUNGS:Lungs clear to auscultation, no wheezes, rales, crackles, chest moves symmetrically, no tachypnea accessory muscle use ABD:bowel sounds normal, soft, non-tender, patient has a large pannus, no guarding, rebound, rigidity, no masses noted, no hepatosplenomegaly :No CVA tenderness MSCL: Non-tender, no muscle atrophy, muscles strength 5/5 upper and lower extremities, full range of motion NEURO:CN 2-12 intact, sensation normal, mild tremor. No asterixis noted. Initial Vital Signs Initial Vital Signs: Vital Signs Temperature 98.4 F 01/11/23 13:30 Pulse Rate 78 01/11/23 13:30 Respiratory Rate 14 01/11/23 13:30 Blood Pressure 155/66 H 01/11/23 13:30 Pulse Oximetry 95 01/11/23 13:30 Oxygen Delivery Method Room Air 01/11/23 13:30 Course Orders Ordered: Discontinued Medications Lactulose (Lactulose 20 Gm/30 Ml Solution) 20 gm PO NOW ONE Stop: 01/11/23 14:25 Last Admin: 01/11/23 14:46 Dose: 20 gm Documented By: CRYSTAL Ondansetron HCl (Ondansetron 4 Mg Odt) 4 mg PO NOW PRN PRN Reason: Nausea And Vomiting Ondansetron HCl (Ondansetron 4 Mg/2 Ml Inj) 4 mg IV NOW PRN PRN Reason: Nausea And Vomiting Vital Signs Vital signs: Vital Signs - 8 hr 01/11/23 13:30 01/11/23 13:39 01/11/23 13:39 Temperature 98.4 F Pulse Rate 78 78 Respiratory Rate 14 Blood Pressure 155/66 H 155/66 H Pulse Oximetry 95 97 Oxygen Delivery Method Room Air 01/11/23 14:00 01/11/23 14:37 01/11/23 14:38 Temperature Pulse Rate 76 75 74 Respiratory Rate Blood Pressure Pulse Oximetry 98 98 Oxygen Delivery Method Room Air 01/11/23 14:38 01/11/23 15:00 01/11/23 15:01 Temperature Pulse Rate 73 72 Respiratory Rate Blood Pressure 163/95 H Pulse Oximetry 93 95 Oxygen Delivery Method 01/11/23 15:04 01/11/23 15:04 01/11/23 15:30 Temperature Pulse Rate 72 71 Respiratory Rate 16 Blood Pressure 140/66 Pulse Oximetry 97 98 Oxygen Delivery Method Room Air 01/11/23 15:31 01/11/23 15:31 01/11/23 16:00 Temperature Pulse Rate 72 73 Respiratory Rate 16 Blood Pressure 141/63 H Pulse Oximetry 97 96 Oxygen Delivery Method Room Air MDM - Neuro Symptoms/Deficit Lab Data 01/11/23 13:30 01/11/23 13:30 Labs: Lab Results 01/11/23 01/11/23 01/11/23 Range/Units 13:30 13:52 17:38 WBC 8.9 (4.5-11.0) X10^3/uL RBC 3.73 L (4.5-5.9) X10^6/uL Hgb 11.7 L (13.5-17.5) g/dL Hct 34.1 L (41-53) % MCV 91.3 (80-100) fL MCH 31.2 (26-34) PG MCHC 34.2 (30-36) % RDW 14.4 (11.6-14.8) % Plt Count 213 (150-400) X10^3/uL Neut % (Auto) 53.5 (50-75) % Lymph % (Auto) 26.7 (25-40) % [place] % (Auto) 6.0 (3-14) % Eos % (Auto) 13.0 H (2-4) % Baso % (Auto) 0.8 (0-2) % Neut # (Auto) 4700 (7136-9000) /uL Lymph # (Auto) 2400 (9986-6568) /uL [place] # (Auto) 500 (0-900) /uL Eos # (Auto) 1200 H (0-450) /uL Baso # (Auto) 100 (0-100) /uL PT 13.0 H (9.4-12.5) SECONDS INR 1.1 (0.9-1.3) Sodium 139 (137-145) mmol/L Potassium 4.4 (3.4-5.1) mmol/L Chloride 101 (98-107) mmol/L Carbon Dioxide 32 (22-32) mmol/L BUN 15 (9-20) mg/dL Creatinine 0.78 (0.66-1.25) mg/dL Estimated GFR > 60 (>60) mL/min BUN/Creatinine Ratio 19.2 (6-22) Glucose 128 H (80-110) mg/dL Calcium 10.0 (8.4-10.2) mg/dL Total Bilirubin 0.6 (0.2-1.3) mg/dL AST 40 (17-59) IU/L ALT 23 (<50) IU/L Alkaline Phosphatase 75 (38-126) U/L Ammonia 68 H (9-30) umol/L Total Protein 7.2 (6.3-8.2) g/dL Albumin 4.1 (3.5-5.0) g/dL Globulin 3.1 (1.7-4.1) g/dL Albumin/Globulin Ratio 1.3 (1.0-2.8) Lipase 38 (23-300) U/L Urine RBC 0-1/hpf (0-5/HPF) Urine WBC 10-30/hpf H (0-5/HPF) Ur Squamous Epith Cells 0-1 /hpf (0-5/HPF) Urine Bacteria Few (2-10) H (None) Hyaline Casts 0-1/lpf (None) Ur Culture Indicated? Specimen cultured Micro UA Comment U Opiates 300ng/mL cut (Negative) Ur Oxycodone Screen (Negative) Urine Methadone Screen (Negative) Ur Barbiturates Screen (Negative) U Tricyclic Antidepress (Negative) Ur Phencyclidine Scrn (Negative) Ur Amphetamines Screen (Negative) U Methamphetamines Scrn (Negative) Ur MDMA Scrn (Ecstasy) (Negative) U Benzodiazepines Scrn (Negative) Urine Cocaine Screen (Negative) U Marijuana (THC) Screen (Negative) Ethyl Alcohol < 10 ( - 10) mg/dL 01/11/23 Range/Units 17:40 WBC (4.5-11.0) X10^3/uL RBC (4.5-5.9) X10^6/uL Hgb (13.5-17.5) g/dL Hct (41-53) % MCV (80-100) fL MCH (26-34) PG MCHC (30-36) % RDW (11.6-14.8) % Plt Count (150-400) X10^3/uL Neut % (Auto) (50-75) % Lymph % (Auto) (25-40) % [place] % (Auto) (3-14) % Eos % (Auto) (2-4) % Baso % (Auto) (0-2) % Neut # (Auto) (2359-7526) /uL Lymph # (Auto) (4260-4311) /uL [place] # (Auto) (0-900) /uL Eos # (Auto) (0-450) /uL Baso # (Auto) (0-100) /uL PT (9.4-12.5) SECONDS INR (0.9-1.3) Sodium (137-145) mmol/L Potassium (3.4-5.1) mmol/L Chloride (98-107) mmol/L Carbon Dioxide (22-32) mmol/L BUN (9-20) mg/dL Creatinine (0.66-1.25) mg/dL Estimated GFR (>60) mL/min BUN/Creatinine Ratio (6-22) Glucose (80-110) mg/dL Calcium (8.4-10.2) mg/dL Total Bilirubin (0.2-1.3) mg/dL AST (17-59) IU/L ALT (<50) IU/L Alkaline Phosphatase (38-126) U/L Ammonia (9-30) umol/L Total Protein (6.3-8.2) g/dL Albumin (3.5-5.0) g/dL Globulin (1.7-4.1) g/dL Albumin/Globulin Ratio (1.0-2.8) Lipase (23-300) U/L Urine RBC (0-5/HPF) Urine WBC (0-5/HPF) Ur Squamous Epith Cells (0-5/HPF) Urine Bacteria (None) Hyaline Casts (None) Ur Culture Indicated? Micro UA Comment U Opiates 300ng/mL cut Negative (Negative) Ur Oxycodone Screen Positive H (Negative) Urine Methadone Screen Negative (Negative) Ur Barbiturates Screen Positive H (Negative) U Tricyclic Antidepress Negative (Negative) Ur Phencyclidine Scrn Negative (Negative) Ur Amphetamines Screen Negative (Negative) U Methamphetamines Scrn Negative (Negative) Ur MDMA Scrn (Ecstasy) Negative (Negative) U Benzodiazepines Scrn Negative (Negative) Urine Cocaine Screen Negative (Negative) U Marijuana (THC) Screen Negative (Negative) Ethyl Alcohol ( - 10) mg/dL Urine Dip Bedside Urine Glucose Negative Bedside Urine Bilirubin - Negative Bedside Urine Ketone - Negative Urine Specific [place] 1.015 Bedside Urine Occult Blood - Negative Bedside Urine pH 6 Bedside Urine Protein - Negative Bedside Urine Urobilinogen - Negative Bedside Urine Nitrite - Negative Bedside Urine Leukocytes +/- [address] scan - abdomen/pelvis: Radiologist's Impression: [address] [address] [address] Scan Report Signed Patient: Josue Mesa MR#: [id number] : 1955 Acct:[id number] Age/Sex: 67 / M Date of Service: 01/11/23 Loc: ED Accession Number: [id number] Procedure: CT abdomen pelvis w con Ordering Provider: Vanessa Watts D.O. PROCEDURE: CT ABDOMEN PELVIS W CON INDICATIONS: liver failure, r/o portal vein thrombosis, TECHNIQUE: After the administration of intravenous contrast, axial sections acquired from the lung bases to the pubic symphysis. Coronal and sagittal reformats were performed. For radiation dose reduction, the following was used: automated exposure control, adjustment of mA and/or kV according to patient size. COMPARISON: [facility], CT, CT CHEST ABD PEL WO CON, 12/29/2022, 11:21. FINDINGS: Image quality: Excellent. Lung bases: Unremarkable. Heart: No significant findings. ABDOMEN: Liver: The liver has a nodular appearance consistent with cirrhotic transformation. No focal hepatic lesions visualized. Gallbladder: There is likely sludge layered in the gallbladder fundus. No gallbladder wall thickening or pericholecystic fluid. Biliary ducts: Unremarkable. Pancreas: Unremarkable. Spleen: The spleen measures 14.1 cm in length. Adrenal Glands: Unremarkable. Kidneys and Ureters: No hydronephrosis. There are nonobstructing calculi within the mid and lower pole of the left kidney. Low-density cystic lesions are present off the midpole of the right kidney. Stomach and Bowel: Stomach, small bowel loops, and colon are unremarkable. There are scattered sigmoid diverticula. No evidence for diverticulitis. Peritoneum: No abnormal intraperitoneal fluid. No free air. Ventral Wall: No hernias. Abdominal Nodes: No retroperitoneal or mesenteric adenopathy by size criteria. Vessels: Aorta and inferior vena cava are normal in size. The portal vein is patent. The SMV is patent. There is a very large superior mesenteric vein/right renal vein shunt present. There are multiple tortuous, ectatic vessels which fill the right upper quadrant and right mid abdomen. PELVIS: Pelvic Organs: Unremarkable. Bladder: Unremarkable. Pelvic Nodes: No enlarged lymph nodes. Miscellaneous: No hernias are seen. Bones: Unremarkable. IMPRESSION: 1. Cirrhotic transformation of the liver with stigmata of portal hypertension including splenomegaly and massive right renal vein/SMV shunt. 2. The portal vein appears patent. 3. Nonobstructive left nephrolithiasis. Dictated by: Susan Clayton M.D. on 01/11/2023 at 15:57 Approved by: Susan Clayton M.D. on 01/11/2023 at 16:05 US - abdomen: Radiologist's Impression: [place] [address] Ultrasound Report Signed Patient: Josue Mesa MR#: [id number] : 1955 Acct:[id number] Age/Sex: 67 / M Date of Service: 01/11/23 Loc: ED Accession Number: [id number] Procedure: US abdomen limited Ordering Provider: Vanessa Watts D.O. PROCEDURE: US ABDOMEN LIMITED INDICATIONS: CONFUSION. ELEVATED AMMONIA. TECHNIQUE: Real-time focused scanning was performed of the abdomen, with image documentation. COMPARISON: [facility], CT, CT CHEST ABD PEL WO CON, 12/29/2022, 11:21. [facility], US, US ABDOMEN LIMITED, 12/29/2022, 16:45. FINDINGS: The liver demonstrates enlarged size. The liver demonstrates generalized moderately increased echogenicity. This decreases ultrasound sensitivity for detection of hepatic masses. The liver demonstrates mildly lobular contour. The main portal vein demonstrates normal size and demonstrates normal appearing, hepatopetal flow. Adjacent to the liver, there are abnormally prominent veins seen. Multiple layering gallstones are seen, with the largest measuring 1.8 cm. The gallbladder wall is not thickened, measuring 3 mm or less. No specific pericholecystic fluid is seen. The sonographic Howell sign is negative. The common bile duct is dilated at 9 mm. The pancreas is overall not well seen. This study is limited by body habitus and bowel gas as well as difficulty with positioning and breath holding instructions S. IMPRESSION: Enlarged, cirrhotic appearing liver. Upper abdominal varices are seen within the right lower quadrant, which are likely to cirrhosis. Mild biliary ductal dilatation is seen, measuring 9 mm. - If clinically appropriate, an MRCP could be considered for further evaluation (assuming that there is no contraindication to MRI). Gallstones are seen, yet without additional sonographic signs of cholecystitis. Please correlate with physical examination findings, patient presentation, and laboratory values. Dictated by: Tyrone Vila M.D. on 01/11/2023 at 14:53 Approved by: Tyrone Vila M.D. on 01/11/2023 at 14:57 ECG Data Attestation: I personally reviewed and interpreted this ECG as follows: Prior ECG tracings: not available for review Interpretation: Sinus rhythm rate of 76 RI 196 QRS 86 QTC 443. No acute elevation depression noted. No priors noted in EMR. MDM Narrative Medical decision making narrative: 67-year-old male presents with acute on chronic encephalopathy with chronic liver failure had elevated ammonia on last visit in December had ultrasound but did not have good visualization of his portal vein. There was concern about thrombosis. Head CT KUB which showed varices and changes in the right upper abdomen. Patient's workup today shows an elevated lactulose. He notes that he has stopped his lactulose at his long term/rehab secondary to chronic diarrhea. This is likely the cause of the elevation. Was given a dose here he does seem to have some improvement in his mentation while in the department. No other changes consistent with infection. No leukocytosis anemia appears at baseline. Normal platelets. INR is 1.1 normal electrolytes, LFTs, glucose and negative lipase. Ultrasound repeated today did note changes consistent with last ultrasound he does have sludge layering in the gallbladder fundus upper abdominal varices right lower quadrant likely cirrhosis mild biliary ductal dilation 9 mm MRCP if appropriate clinically, gallstone seen without sonographic signs of cholecystitis. Patient on last visit head CT KUB but was recommended to have CT with contrast to evaluate for portal vein thrombosis. Discussed with patient and family they are unclear as to why suspected cause of liver failure and performed CT abdomen pelvis which showed no gallbladder wall thickening or pericholecystic fluid spleen measuring 14.1 cm in length, nonobstructing renal calculi, portal vein was patent with SMV patent and very large superior mesenteric vein/right renal shunt vein present, multiple tortuous ectatic vessels right upper quadrant right mid abdomen. Patient also had head CT and chest x-ray which showed no acute change. Spoke with Dr. Lowry, gastroenterology states this is consistent with keep it on his CT imaging agrees with plan to can you lactulose not have patient stop. Patient's urine had leukocyte esterase, 10-30 wbc's 0-1 squamous few bacteria cultured but patient does not currently have any urinary symptoms and with his elevated ammonia we will hold off and await culture results. Patient is alert, he is fairly oriented he is confused but is overall appropriate. Feels appropriate to return his assisted living facility with plan to continue his lactulose daily and stop any stool softeners that he has been taking. 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 Reviewed return precautions with patient and his sister who is at bedside. Patient's family is agreeable to discharge back to his facility. Discharge Plan Departure Patient Disposition: Home Clinical Impression: Encephalopathy Activity Restrictions/Additional Instructions: You have elevated ammonia levels this is causing your altered mental status today. Your ammonia level is elevated secondary to your cirrhosis or liver issues. Follow-up with gastroenterology at your appointment on January 24, I am glad they contacted me today to set up your appointment. It is important you continue your lactulose, if you are having severe diarrhea you may need to alter how frequently take it more decrease the amount but you should not stop it entirely. It is also recommended that you stop any stool softener such as your docusate or similar medication. Please return for worsening changes to your mental status, new chest pain, shortness of breath, persistent vomiting, lightheadedness or passing out, black or bloody stools, vomiting up blood or other new or concerning changes. Prescriptions: No Action gabapentin 800 MG tablet 1,200 mg PO TID Qty: 0 furosemide 80 MG tablet 40 mg PO BID Qty: 0 enalapril maleate 20 MG tablet 20 mg PO Q DAY Qty: 0 multivitamin Capsule 1 cap PO DAILY vitamin B complex Capsule 1 cap PO DAILY ferrous sulfate 325 mg (65 mg iron) Tablet 325 mg PO DAILY primidone 50 mg Tablet 250 tab PO BID pantoprazole 40 mg tablet,delayed release (DR/EC) 40 mg PO DAILY insulin glargine [Lantus Solostar U-100 Insulin] 100 UNIT/1 ML insulin pen See Rx Instructions .ROUTE .COMPLEX Rx Instructions: 40 units in AM, 10 units HS acetaminophen 325 mg Tablet 650 mg PO Q6H PRN (Reason: Fever/Mild Pain (1-3)) Qty: 60 0RF lactulose 10 gram/15 mL Solution 20 g PO DAILY 30 Days Qty: 946 0RF oxycodone 5 mg Tablet 5 mg PO Q6H PRN (Reason: Pain, Moderate (4-6)) Qty: 25 0RF Referrals: Deniz Lowry MD [Non-Staff] - Barbara Rushing ARNP [Primary Care Provider] - Stand Alone Forms: Patient Portal/API
--- NOTE | 2023-01-11 15:36 | DI.CT.S_ITS ---
PROCEDURE: CT ABDOMEN PELVIS W CON INDICATIONS: liver failure, r/o portal vein thrombosis, TECHNIQUE: After the administration of intravenous contrast, axial sections acquired from the lung bases to the pubic symphysis. Coronal and sagittal reformats were performed. For radiation dose reduction, the following was used: automated exposure control, adjustment of mA and/or kV according to patient size. COMPARISON: Located Within [facility], CT, CT CHEST ABD PEL WO CON, 12/29/2022, 11:21. FINDINGS: Image quality: Excellent. Lung bases: Unremarkable. Heart: No significant findings. ABDOMEN: Liver: The liver has a nodular appearance consistent with cirrhotic transformation. No focal hepatic lesions visualized. Gallbladder: There is likely sludge layered in the gallbladder fundus. No gallbladder wall thickening or pericholecystic fluid. Biliary ducts: Unremarkable. Pancreas: Unremarkable. Spleen: The spleen measures 14.1 cm in length. Adrenal Glands: Unremarkable. Kidneys and Ureters: No hydronephrosis. There are nonobstructing calculi within the mid and lower pole of the left kidney. Low-density cystic lesions are present off the midpole of the right kidney. Stomach and Bowel: Stomach, small bowel loops, and colon are unremarkable. There are scattered sigmoid diverticula. No evidence for diverticulitis. Peritoneum: No abnormal intraperitoneal fluid. No free air. Ventral Wall: No hernias. Abdominal Nodes: No retroperitoneal or mesenteric adenopathy by size criteria. Vessels: Aorta and inferior vena cava are normal in size. The portal vein is patent. The SMV is patent. There is a very large superior mesenteric vein/right renal vein shunt present. There are multiple tortuous, ectatic vessels which fill the right upper quadrant and right mid abdomen. PELVIS: Pelvic Organs: Unremarkable. Bladder: Unremarkable. Pelvic Nodes: No enlarged lymph nodes. Miscellaneous: No hernias are seen. Bones: Unremarkable. IMPRESSION: 1. Cirrhotic transformation of the liver with stigmata of portal hypertension including splenomegaly and massive right renal vein/SMV shunt. 2. The portal vein appears patent. 3. Nonobstructive left nephrolithiasis. Dictated by: Susan Clayton M.D. on 01/11/2023 at 15:57 Approved by: Susan Clayton M.D. on 01/11/2023 at 16:05
[2023-01-11 16:23] LABS: Ethanol (ETOH) < 10 mg/dL
[2023-01-11 17:55] LABS: UR Morphine/Opiate cutoff 300 Negative (Negative); Ur Creatinine Normal (Normal); Ur Specific Gravity Normal (Normal); Urine Amphetamines Negative (Negative); Urine Barbiturates Positive (Negative); Urine Benzodiazepines Negative (Negative); Urine Cocaine Negative (Negative); Urine MDMA Negative (Negative); Urine Methadone Negative (Negative); Urine Methamphetamines Negative (Negative); Urine Oxycodone Positive (Negative); Urine Phencyclidine Negative (Negative); Urine Tetrahydrocannabinol Negative (Negative); Urine Tricyclic Antidepressant Negative (Negative); Urine pH Normal (Normal)
[2023-01-11 18:04] LABS: Bacteria Urine Few (2-10); RBC Urine 0-1/HPF (0-5/HPF); WBC Urine 10-30/HPF (0-5/HPF)
[2023-01-11 18:05] LABS: Culture Indicated Urine Specimen Cultured; Hyaline Casts Urine 0-1/LPF; Squamous Epithelial Cell Urine 0-1 /HPF (0-5/HPF)
== END 2023-01-11 18:09 | disposition home or self-care (01) ==
PROVIDERS: Emergency Provider Emergency Medicine; Family Provider Nurse Practitioner Family; PCP Nurse Practitioner Family
DX: G93.49 Other encephalopathy (principal); N39.0 Urinary tract infection, site not specified; B95.2 Enterococcus as the cause of diseases classified elsewhere; K74.60 Unspecified cirrhosis of liver; E11.51 Type 2 diabetes mellitus with diabetic peripheral angiopathy without gangrene; Z79.4 Long term (current) use of insulin; I10 Essential (primary) hypertension; I25.2 Old myocardial infarction; E66.01 Morbid (severe) obesity due to excess calories
CPT/HCPCS: 36415; 51701; 51798; 70450; 71045; 74177; 76705; 80053; 80305; 80320; 81003; 81015; 82140; 83690; 85025; 85610; 87077; 87086; 87186; 93005; 93010; 99284; Q9967

== ENCOUNTER → 2023-02-15 07:01 | Outpatient (ROUT) | payer MEDICARE, MEDICAID, SELFPAY ==
[2022-12-29 15:10] VITALS: BMI 39.4
[2023-02-15 08:15] LABS: Add Manual Diff / Slide Review NO; Basophils Absolute Auto 100 /uL (0-100); Basophils Percent Auto 0.7 % (0-2); Eosinophils Absolute Auto 700 /uL (0-450); Eosinophils Percent Auto 9.7 % (2-4); Hemoglobin 9.6 g/dL (13.5-17.5); Lymphocytes Absolute Auto 2500 /uL (1100-4500); Lymphocytes Percent Auto 35.6 % (25-40); Mean Corpuscular HGB Conc 34.4 % (30-36); Mean Corpuscular Hemoglobin 31.9 PG (26-34); Mean Corpuscular Volume 92.8 fL (80-100); Monocytes Absolute Auto 400 /uL (0-900); Monocytes Percent Auto 5.6 % (3-14); Neutrophils Absolute Auto 3400 /uL (1500-7000); Neutrophils Percent Auto 48.4 % (50-75); Platelet Count 155 X10^3/uL (150-400); Red Blood Cell Count 3.02 X10^6/uL (4.5-5.9); Red Cell Distribution Width 14.7 % (11.6-14.8)
[2023-02-15 08:32] LABS: HEMOLYSIS < 15 (0-50); Iron 57 ug/dL (49-181)
[2023-02-15 08:43] LABS: Percent Iron Saturation 25 % (20-50); Total Iron Binding Capacity 230 ug/dL (261-462); Transferrin 187 mg/dL (206-381)
[2023-02-15 15:35] LABS: Folate > 20.0 ng/mL (2.76-20.0); Vitamin B12 939 pg/mL (239-931)
== END ==
PROVIDERS: Family Provider Nurse Practitioner Family; PCP Nurse Practitioner Family; Visit Provider Nurse Practitioner Family
DX: D64.9 Anemia, unspecified (principal)
CPT/HCPCS: 36415; 82607; 82746; 83540; 83550; 85025

== ENCOUNTER → 2023-05-08 10:23 | Outpatient (CLI) | payer MEDICARE, MEDICAID, SELFPAY ==
[2022-12-29 15:10] VITALS: BMI 39.4
== END ==
PROVIDERS: Family Provider Nurse Practitioner Family; PCP Nurse Practitioner Family; Referring Provider Podiatrist; Visit Provider Surgery
DX: E11.621 Type 2 diabetes mellitus with foot ulcer (principal); E11.42 Type 2 diabetes mellitus with diabetic polyneuropathy; L97.512 Non-pressure chronic ulcer of other part of right foot with fat layer exposed; L84 Corns and callosities; M14.671 Charcot's joint, right ankle and foot; M62.81 Muscle weakness (generalized)
CPT/HCPCS: 11042; 99213

== ENCOUNTER → 2023-05-15 10:10 | Outpatient (CLI) | payer MEDICARE, MEDICAID, SELFPAY ==
[2022-12-29 15:10] VITALS: BMI 39.4
== END ==
LOC: WC 10:11
PROVIDERS: Family Provider Nurse Practitioner Family; PCP Nurse Practitioner Family; Referring Provider Podiatrist; Visit Provider Surgery
DX: E11.621 Type 2 diabetes mellitus with foot ulcer (principal); L97.512 Non-pressure chronic ulcer of other part of right foot with fat layer exposed; L84 Corns and callosities; E11.42 Type 2 diabetes mellitus with diabetic polyneuropathy; M14.671 Charcot's joint, right ankle and foot
CPT/HCPCS: 11042

== ENCOUNTER → 2023-05-17 06:07 | Outpatient (ROUT) | payer MEDICARE, MEDICAID, SELFPAY ==
[2022-12-29 15:10] VITALS: BMI 39.4
[2023-05-17 06:56] LABS: Add Manual Diff / Slide Review NO; Basophils Absolute Auto 100 /uL (0-100); Basophils Percent Auto 1.1 % (0-2); Eosinophils Absolute Auto 1000 /uL (0-450); Eosinophils Percent Auto 16.1 % (2-4); Hematocrit 28.6 % (41-53); Hemoglobin 9.6 g/dL (13.5-17.5); Lymphocytes Absolute Auto 2300 /uL (1100-4500); Lymphocytes Percent Auto 36.3 % (25-40); Mean Corpuscular HGB Conc 33.7 % (30-36); Mean Corpuscular Hemoglobin 31.3 PG (26-34); Mean Corpuscular Volume 92.9 fL (80-100); Monocytes Absolute Auto 400 /uL (0-900); Monocytes Percent Auto 6.7 % (3-14); Neutrophils Absolute Auto 2500 /uL (1500-7000); Neutrophils Percent Auto 39.8 % (50-75); Platelet Count 128 X10^3/uL (150-400); Red Blood Cell Count 3.08 X10^6/uL (4.5-5.9); Red Cell Distribution Width 13.8 % (11.6-14.8); White Blood Cell Count 6.3 X10^3/uL (4.5-11.0)
[2023-05-17 07:00] LABS: Alanine Aminotransferase 26 IU/L (<50); Albumin 3.1 g/dL (3.5-5.0); Albumin Globulin Ratio 1.2 (1.0-2.8); Alkaline Phosphatase 56 U/L (38-126); Aspartate Aminotransferase 30 IU/L (17-59); BUN Creatinine Ratio 31.4 (6-22); Bilirubin Total 0.4 mg/dL (0.2-1.3); Blood Urea Nitrogen 27 mg/dL (9-20); Calcium 8.6 mg/dL (8.4-10.2); Carbon Dioxide 32 mmol/L (22-32); Chloride 106 mmol/L (98-107); Estimated Glomerular Filt Rate > 60 mL/min (>60); Globulin 2.5 g/dL (1.7-4.1); Glucose 112 mg/dL (80-110); HEMOLYSIS 19 (0-50); Potassium 4.8 mmol/L (3.4-5.1); Sodium 137 mmol/L (137-145); Total Protein 5.6 g/dL (6.3-8.2)
[2023-05-17 07:03] LABS: Hemoglobin A1C% w Est Avg Glu 6.9 % (4.0-6.0)
== END ==
PROVIDERS: Family Provider Nurse Practitioner Family; PCP Nurse Practitioner Family; Visit Provider Nurse Practitioner Family
DX: E11.9 Type 2 diabetes mellitus without complications (principal)
CPT/HCPCS: 36415; 80053; 83036; 85025

== ENCOUNTER → 2023-05-17 10:42 | Outpatient (CLI) | payer MEDICARE, MEDICAID, SELFPAY ==
[2022-12-29 15:10] VITALS: BMI 39.4
== END ==
PROVIDERS: Family Provider Nurse Practitioner Family; PCP Nurse Practitioner Family; Referring Provider Podiatrist; Visit Provider Surgery
DX: E11.621 Type 2 diabetes mellitus with foot ulcer (principal); L97.512 Non-pressure chronic ulcer of other part of right foot with fat layer exposed; L84 Corns and callosities
CPT/HCPCS: 29445; 36415; 80053; 83036; 85025

== ENCOUNTER → 2023-05-22 10:19 | Outpatient (CLI) | payer MEDICARE, MEDICAID, SELFPAY ==
[2022-12-29 15:10] VITALS: BMI 39.4
== END ==
LOC: WC 10:21
PROVIDERS: Family Provider Nurse Practitioner Family; PCP Nurse Practitioner Family; Referring Provider Podiatrist; Visit Provider Surgery
DX: E11.42 Type 2 diabetes mellitus with diabetic polyneuropathy (principal); M14.671 Charcot's joint, right ankle and foot; L84 Corns and callosities
CPT/HCPCS: 29445; 99213

== ENCOUNTER → 2023-05-29 10:17 | Outpatient (CLI) | payer MEDICARE, MEDICAID, SELFPAY ==
[2022-12-29 15:10] VITALS: BMI 39.4
== END ==
LOC: WC 10:18
PROVIDERS: Family Provider Nurse Practitioner Family; PCP Nurse Practitioner Family; Referring Provider Nurse Practitioner Family; Visit Provider Surgery
DX: Z09 Encounter for follow-up examination after completed treatment for conditions other than malignant neoplasm (principal); Z86.31 Personal history of diabetic foot ulcer
CPT/HCPCS: 99212; 99213

== ENCOUNTER → 2023-08-23 06:10 | Outpatient (ROUT) | payer MEDICARE, MEDICAID, SELFPAY ==
[2022-12-29 15:10] VITALS: BMI 39.4
[2023-08-23 07:28] LABS: Hemoglobin A1C% w Est Avg Glu 7.1 % (4.0-6.0)
[2023-08-23 07:49] LABS: Ammonia (NH3) 86 umol/L (9-30)
[2023-08-23 08:05] LABS: Alanine Aminotransferase 23 IU/L (<50); Albumin 3.3 g/dL (3.5-5.0); Albumin Globulin Ratio 1.4 (1.0-2.8); Alkaline Phosphatase 84 U/L (38-126); Aspartate Aminotransferase 27 IU/L (17-59); BUN Creatinine Ratio 27.5 (6-22); Bilirubin Total 0.4 mg/dL (0.2-1.3); Blood Urea Nitrogen 22 mg/dL (9-20); Calcium 8.7 mg/dL (8.4-10.2); Carbon Dioxide 31 mmol/L (22-32); Chloride 104 mmol/L (98-107); Estimated Glomerular Filt Rate > 60 mL/min (>60); Globulin 2.4 g/dL (1.7-4.1); Glucose 144 mg/dL (80-110); HEMOLYSIS < 15 (0-50); Potassium 4.3 mmol/L (3.4-5.1); Sodium 139 mmol/L (137-145); Total Protein 5.7 g/dL (6.3-8.2)
== END ==
PROVIDERS: Family Provider Nurse Practitioner Family; PCP Nurse Practitioner Family; Visit Provider Nurse Practitioner Family
DX: E11.9 Type 2 diabetes mellitus without complications (principal)
CPT/HCPCS: 36415; 80053; 82140; 83036

== ENCOUNTER 2023-11-01 19:37 | Emergency (ER) | payer MEDICARE, MEDICAID, SELFPAY ==
[2022-12-29 15:10] VITALS: BMI 39.4
[2023-11-01] VITALS (8 sets, daily range): BP systolic 133–164; BP diastolic 62–89; PULSE 74–81; RESP 9–22; TEMP 36.8–36.9; O2SAT 97–99; BMI 41.4
--- NOTE | 2023-11-01 19:48 | DI.RAD.S_ITS ---
PROCEDURE: XR CHEST 1V INDICATIONS: fall, groggy TECHNIQUE: One view of the chest was acquired. COMPARISON: [facility], , XR CHEST 1V, 01/11/2023, 14:33. [facility], CR, XR CHEST 1V, 01/16/2022, 12:35. FINDINGS: Surgical changes and devices: None. Lungs and pleura: Lungs are clear. No pleural effusions or pneumothorax. Mediastinum: Mediastinal contours appear normal. Heart size is prominent. Bones and chest wall: No suspicious bony lesions. Overlying soft tissues appear unremarkable. IMPRESSION: No acute cardiopulmonary abnormality is seen. Dictated by: Ronny Medina M.D. on 11/01/2023 at 20:10 Approved by: Ronny Medina M.D. on 11/01/2023 at 20:11
--- NOTE | 2023-11-01 19:48 | EKG_ITS ---
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
--- NOTE | 2023-11-01 19:50 | ED.GENADULT ---
HPI - General Adult General Chief complaint: Syncope Stated complaint: fall Time Seen by Provider: 11/01/23 19:48 Source: patient, EMS, RN notes reviewed and old records reviewed Mode of arrival: EMS Limitations: no limitations History of Present Illness HPI narrative: 67-year-old male with history of NSTEMI, prior right foot osteomyelitis with a right toe amputation, insulin-dependent diabetes with peripheral neuropathy chronic right foot and diabetic, essential tremor, morbid obesity, hypertension, AGATHA, liver failure presents from [facility] for feeling groggy and 2 falls. Patient states he falls fairly regularly. Today he had finished urinating went to backup tripped and fell backwards striking his back. He states he did not hit his head. Did not have any loss of consciousness. Was assisted to his room and then later went to get up and grab his walker was little bit off balance and fell. He notes that he is felt groggy and sleepy today. He states he did not sleep very well last night. His sister who took him to [place] yesterday noted that he fell asleep quite frequently. He does note that he takes lactulose daily sometimes stopped it when his diarrhea severe but has been taking it for the most part. Per EMS blood sugar was 160. He denies hitting his head no loss of consciousness no neck pain. Has not abrasion on the back. He is unsure of his tetanus status. Denies any chest pain or shortness of breath. No nausea or vomiting. No numbness tingling or weakness. No new changes to bowel movements or urination. Swelling of extremities. States he contacted his primary care Barbara Caceres who encouraged him to come be evaluated. Related Data Home Medications Medication Instructions Recorded Confirmed gabapentin 800 mg tablet 1,200 mg PO TID ##0 10/07/12 01/11/23 furosemide 80 mg tablet 40 mg PO BID ##0 10/15/15 01/11/23 enalapril maleate 20 mg tablet 20 mg PO Q DAY ##0 03/06/16 01/11/23 primidone 50 mg tablet 250 tab PO BID 02/07/18 01/11/23 multivitamin 1 cap PO DAILY 11/02/18 12/29/22 vitamin B complex 1 cap PO DAILY 11/02/18 01/11/23 insulin glargine 100 unit/mL (3 See Rx Instructions .Route .COMPLEX 01/16/22 01/11/23 mL) subcutaneous pen (Lantus Solostar U-100 Insulin) pantoprazole 40 mg tablet,delayed 40 mg PO DAILY 01/16/22 01/11/23 release ferrous sulfate 325 mg (65 mg 325 mg PO DAILY 01/11/23 01/11/23 iron) tablet Previous Rx's Medication Instructions Recorded acetaminophen 325 mg tablet 650 mg (2 x 325 mg) PO Q6H PRN 12/30/22 Fever/Mild Pain (1-3) #60 tabs oxycodone 5 mg tablet 5 mg PO Q6H PRN Pain, Moderate 12/30/22 (4-6) #25 tabs Allergies Allergy/AdvReac Type Severity Reaction Status Date / Time amoxicillin [From AUGMENTIN] AdvReac Mild UPSET Verified 01/11/23 13:43 STOMACH clavulanic acid AdvReac Mild UPSET Verified 01/11/23 13:43 [From AUGMENTIN] STOMACH Patient History Medical History History of non-ST elevation myocardial infarction (NSTEMI) AGATHA treated with BiPAP Severe muscle deconditioning Sedentary lifestyle Closed non-physeal fracture of proximal phalanx of great toe with malunion Chronic ulcer of right foot limited to breakdown of skin Insulin dependent diabetes mellitus Peripheral vascular disease Hypertension Depression Toe amputation status Peripheral autonomic neuropathy Sepsis (02/27/17) Cellulitis (02/27/17) Sleep apnea MRSA (methicillin resistant Staphylococcus aureus) (02/27/17) Visit for wound care Essential tremor Thrombocytopenia Morbid obesity Polypharmacy Diabetes Surgical History History of amputation of lesser toe of right foot Family History Father Cancer Congestive heart failure Mother Cancer Social History household members: none Smoking Status: Never smoker alcohol intake: current Smoking Status: Never smoker alcohol intake frequency: other Substance Use Type: does not use Exam Narrative Exam Narrative: GEN: Obese male], alert and oriented x 3, patient appears to be in mild distress. HEENT: Atraumatic, pupils are equal round reactive to light, extraocular movements are intact, nares are clear, TMs are clear with no fluid, there is no conjunctival pallor. Throat is clear without any exudates, erythema, tonsillar enlargement or uvular deviation, no facial droop HEART: Regular rate and rhythm without murmur, clicks, rubs. No carotid bruits, pulses are equal in upper and lower extremities LUNGS:Lungs clear to auscultation, no wheezes, rales, crackles, chest moves symmetrically ABD:bowel sounds normal, soft, non-tender, no guarding, rebound, rigidity, no masses noted, no hepatosplenomegaly :No CVA tenderness BACK: No cervical, thoracic or lumbar vertebral point tenderness. Patient has normal range of motion. Patient has a superficial abrasion about 3 x 3 cm just to the left of his thoracic spinal column. MSCL: Non-tender, no muscle atrophy, muscles strength 5/5 upper and lower extremities, full range of motion. NEURO:CN 2-12 intact, sensation normal. Initial Vital Signs Initial Vital Signs: Vital Signs Temperature 98.2 F 11/01/23 19:48 Pulse Rate 75 11/01/23 19:48 Respiratory Rate 18 11/01/23 19:48 Blood Pressure 164/89 H 11/01/23 19:48 Pulse Oximetry 99 11/01/23 19:48 Oxygen Delivery Method Room Air 11/01/23 19:48 Course Orders Ordered: Discontinued Medications Diphtheria/Tetanus/Acell Pertussis (Tet,Diph,Pertuss(Acell),Vac/Pf 0.5 Ml Syringe) 0.5 ml IM .ONCE ONE Stop: 11/01/23 19:55 Last Admin: 11/01/23 20:11 Dose: 0.5 ml Documented By: Sodium Chloride (Normal Saline 0.9%) 1,000 mls @ 1,000 mls/hr IV BOLUS ONE Stop: 11/01/23 20:47 Last Infusion: 11/01/23 21:53 Dose: Infused Documented By: Admin: 11/01/23 20:12 Dose: 1,000 mls/hr Documented By: Lactulose (Lactulose 20 Gm/30 Ml Solution) 20 gm MI NOW ONE Stop: 11/01/23 21:23 Last Admin: 11/01/23 21:28 Dose: Not Given Documented By: KLS Lactulose (Lactulose 20 Gm/30 Ml Solution) 20 gm PO NOW ONE Stop: 11/01/23 21:27 Last Admin: 11/01/23 21:51 Dose: 20 gm Documented By: Vital Signs Vital signs: Vital Signs - 8 hr 11/01/23 21:30 11/01/23 22:34 Temperature 98.4 F Pulse Rate 74 75 Respiratory Rate 22 16 Blood Pressure 144/78 H 133/78 Pulse Oximetry 98 Oxygen Delivery Method Room Air Room Air Medical Decision Making Lab Data 11/01/23 19:55 11/01/23 19:55 Labs: Lab Results 11/01/23 11/01/23 Range/Units 19:55 20:05 WBC 5.7 (4.5-11.0) X10^3/uL RBC 3.47 L (4.5-5.9) X10^6/uL Hgb 11.0 L (13.5-17.5) g/dL Hct 32.5 L (41-53) % MCV 93.7 (80-100) fL MCH 31.8 (26-34) PG MCHC 34.0 (30-36) % RDW 14.1 (11.6-14.8) % Plt Count 157 (150-400) X10^3/uL Neut % (Auto) 59.2 (50-75) % Lymph % (Auto) 23.2 L (25-40) % [place] % (Auto) 11.5 (3-14) % Eos % (Auto) 5.1 H (2-4) % Baso % (Auto) 1.0 (0-2) % Neut # (Auto) 3400 (8938-0105) /uL Lymph # (Auto) 1300 (1942-4996) /uL [place] # (Auto) 700 (0-900) /uL Eos # (Auto) 300 (0-450) /uL Baso # (Auto) 100 (0-100) /uL Sodium 139 (137-145) mmol/L Potassium 4.3 (3.4-5.1) mmol/L Chloride 102 (98-107) mmol/L Carbon Dioxide 30 (22-32) mmol/L BUN 17 (9-20) mg/dL Creatinine 1.11 (0.66-1.25) mg/dL Estimated GFR > 60 (>60) mL/min BUN/Creatinine Ratio 15.3 (6-22) Glucose 106 (80-110) mg/dL Calcium 9.0 (8.4-10.2) mg/dL Total Bilirubin 0.5 (0.2-1.3) mg/dL AST 29 (17-59) IU/L ALT 24 (<50) IU/L Alkaline Phosphatase 89 (38-126) U/L Ammonia 72 H (9-30) umol/L Total Protein 6.5 (6.3-8.2) g/dL Albumin 3.8 (3.5-5.0) g/dL Globulin 2.7 (1.7-4.1) g/dL Albumin/Globulin Ratio 1.4 (1.0-2.8) Lipase 34 (23-300) U/L MDM Narrative Medical decision making narrative: 67-year-old male presents with complaint of feeling groggy and 2 falls. Patient states it has not atypical for him to fall he has had prior visits but does have a history of metabolic encephalopathy secondary to elevated ammonia from his liver disease. Patient is slightly hypertensive but otherwise appropriate vitals. Labs white count of 5.7 hemoglobin of 11 platelets of 157. Sodium 139 potassium 4 3 chloride 102 CO2 of 30 BUN 17 creatinine 1.11 glucose of 106 calcium 9, LFTs are normal, patient's ammonia 72 Chest x-ray shows no acute change EKG sinus rhythm rate of 77 MI 184 QRS 82 QTC 427, no acute ST elevation or depression noted. Discussed with patient he has missed some doses of his lactulose secondary to diarrhea. Discussed taking this regularly. Patient is agreeable. He is slightly groggy but overall very appropriate and felt appropriate for discharge back to his facility. He has a niece at bedside, she was sleeping in bed with her uncle who is also part of our conversation reviewed findings with her as well. She noted she would like to be involved in his transfer back to [facility]. As it is just across the parking lot. But do not feel comfortable wheeling him back over so [facility] transport was set up. Discharge Plan Departure Patient Disposition: Home Clinical Impression: Hyperammonemia Activity Restrictions/Additional Instructions: Please follow up for recheck in the next 24 hours. Your ammonia level today is elevated this is likely the cause of your grogginess and tiredness. It is important that you take your lactulose every day, it can cause diarrhea but if you skip doses particularly several days in a row this can make your levels elevate. You have been given dose of lactulose this evening. Please return for any new changes in mentation, increasing confusion or altered mental state, vomiting, new chest pain or shortness of breath, recurrent falls, new weakness, black or bloody stools or other new or concerning changes. Prescriptions: No Action gabapentin 800 MG tablet 1,200 mg PO TID Qty: 0 furosemide 80 MG tablet 40 mg PO BID Qty: 0 enalapril maleate 20 MG tablet 20 mg PO Q DAY Qty: 0 multivitamin Capsule 1 cap PO DAILY vitamin B complex Capsule 1 cap PO DAILY ferrous sulfate 325 mg (65 mg iron) Tablet 325 mg PO DAILY primidone 50 mg Tablet 250 tab PO BID pantoprazole 40 mg tablet,delayed release (DR/EC) 40 mg PO DAILY insulin glargine [Lantus Solostar U-100 Insulin] 100 UNIT/1 ML insulin pen See Rx Instructions .ROUTE .COMPLEX Rx Instructions: 40 units in AM, 10 units HS acetaminophen 325 mg Tablet 650 mg PO Q6H PRN (Reason: Fever/Mild Pain (1-3)) Qty: 60 0RF oxycodone 5 mg Tablet 5 mg PO Q6H PRN (Reason: Pain, Moderate (4-6)) Qty: 25 0RF Referrals: Barbara Rushing ARNP [Primary Care Provider] - Stand Alone Forms: Patient Portal/API
[2023-11-01] MEDS: TET,DIPH,PERTUSS(ACELL),VAC/PF 0.5 ML SYRINGE IM (20:11)
[2023-11-01] MEDS: SODIUM CHLORIDE 0.9% 1,000 ML 1000 ML IV (20:12)
[2023-11-01 20:13] LABS: Add Manual Diff / Slide Review NO; Basophils Absolute Auto 100 /uL (0-100); Eosinophils Absolute Auto 300 /uL (0-450); Eosinophils Percent Auto 5.1 % (2-4); Hematocrit 32.5 % (41-53); Lymphocytes Absolute Auto 1300 /uL (1100-4500); Lymphocytes Percent Auto 23.2 % (25-40); Mean Corpuscular Hemoglobin 31.8 PG (26-34); Mean Corpuscular Volume 93.7 fL (80-100); Monocytes Absolute Auto 700 /uL (0-900); Monocytes Percent Auto 11.5 % (3-14); Neutrophils Absolute Auto 3400 /uL (1500-7000); Neutrophils Percent Auto 59.2 % (50-75); Platelet Count 157 X10^3/uL (150-400); Red Blood Cell Count 3.47 X10^6/uL (4.5-5.9); Red Cell Distribution Width 14.1 % (11.6-14.8); White Blood Cell Count 5.7 X10^3/uL (4.5-11.0)
[2023-11-01 20:34] LABS: Alanine Aminotransferase 24 IU/L (<50); Albumin 3.8 g/dL (3.5-5.0); Albumin Globulin Ratio 1.4 (1.0-2.8); Alkaline Phosphatase 89 U/L (38-126); Aspartate Aminotransferase 29 IU/L (17-59); BUN Creatinine Ratio 15.3 (6-22); Bilirubin Total 0.5 mg/dL (0.2-1.3); Blood Urea Nitrogen 17 mg/dL (9-20); Carbon Dioxide 30 mmol/L (22-32); Chloride 102 mmol/L (98-107); Estimated Glomerular Filt Rate > 60 mL/min (>60); Globulin 2.7 g/dL (1.7-4.1); Glucose 106 mg/dL (80-110); HEMOLYSIS < 15 (0-50); Lipase 34 U/L (23-300); Potassium 4.3 mmol/L (3.4-5.1); Sodium 139 mmol/L (137-145); Total Protein 6.5 g/dL (6.3-8.2)
[2023-11-01 20:37] LABS: Ammonia (NH3) 72 umol/L (9-30)
[2023-11-01] MEDS: LACTULOSE 20 GM/30 ML SOLUTION PO (21:51)
== END 2023-11-01 22:35 | disposition home or self-care (01) ==
PROVIDERS: Emergency Provider Emergency Medicine; Family Provider Nurse Practitioner Family; PCP Nurse Practitioner Family
DX: E72.20 Disorder of urea cycle metabolism, unspecified (principal); I10 Essential (primary) hypertension; S20.412A Abrasion of left back wall of thorax, initial encounter; W18.30XA Fall on same level, unspecified, initial encounter; Z91.81 History of falling; Z23 Encounter for immunization
CPT/HCPCS: 36415; 71045; 80053; 82140; 83690; 85025; 90471; 93005; 96360; 96361; 99284; 90715

== ENCOUNTER → 2023-11-07 10:55 | Outpatient (CLI) | payer MEDICARE, MEDICAID, SELFPAY ==
[2022-12-29 15:10] VITALS: BMI 39.4
== END ==
LOC: WC 10:56
PROVIDERS: Family Provider Nurse Practitioner Family; PCP Nurse Practitioner Family; Referring Provider Podiatrist; Visit Provider Surgery
DX: E11.621 Type 2 diabetes mellitus with foot ulcer (principal); E11.42 Type 2 diabetes mellitus with diabetic polyneuropathy; L97.412 Non-pressure chronic ulcer of right heel and midfoot with fat layer exposed; L53.9 Erythematous condition, unspecified; M62.81 Muscle weakness (generalized)
CPT/HCPCS: 11042; 87070; 87075; 87205; 99214

== ENCOUNTER → 2023-11-08 07:24 | Outpatient (ROUT) | payer MEDICARE, MEDICAID, SELFPAY ==
[2022-12-29 15:10] VITALS: BMI 39.4
[2023-11-08 07:48] LABS: Ammonia (NH3) 70 umol/L (9-30)
== END ==
PROVIDERS: Family Provider Nurse Practitioner Family; PCP Nurse Practitioner Family; Visit Provider Nurse Practitioner Family
DX: K74.60 Unspecified cirrhosis of liver (principal)
CPT/HCPCS: 36415; 82140

== ENCOUNTER → 2023-11-14 14:58 | Outpatient (CLI) | payer MEDICARE, MEDICAID, SELFPAY ==
[2022-12-29 15:10] VITALS: BMI 39.4
== END ==
PROVIDERS: Family Provider Nurse Practitioner Family; PCP Nurse Practitioner Family; Referring Provider Podiatrist; Visit Provider Surgery
DX: L97.412 Non-pressure chronic ulcer of right heel and midfoot with fat layer exposed (principal); E11.621 Type 2 diabetes mellitus with foot ulcer; E11.42 Type 2 diabetes mellitus with diabetic polyneuropathy; L84 Corns and callosities; L53.9 Erythematous condition, unspecified
CPT/HCPCS: 11042

== ENCOUNTER → 2023-11-14 15:21 | Outpatient (CLI) | payer MEDICARE, MEDICAID, SELFPAY ==
[2022-12-29 15:10] VITALS: BMI 39.4
--- NOTE | 2023-11-14 15:23 | DI.RAD.S_ITS ---
PROCEDURE: XR FOOT RT MIN 3V INDICATIONS: non-healing diabetic foot ulcer on R plantar 1st met head TECHNIQUE: 3 views of the foot were acquired. COMPARISON: [facility], CR, XR FOOT RT MIN 3V, 08/03/2022, 14:12. [facility], CR, XR FOOT RT MIN 3V, 01/16/2022, 16:00. FINDINGS: Bones: Hallux valgus alignment. Severe degenerative changes at the 1st metatarsophalangeal joint again seen. No definite acute osseous erosion. Status post amputation of the 2nd ray at the metatarsophalangeal joint. A healing minimally displaced fracture is seen at the 5th proximal phalangeal base with mild periosteal new bone formation. Small posterior and plantar calcaneal enthesophytes. Soft tissues: Nonspecific soft tissue edema. IMPRESSION: 1. 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 No definite radiographic signs of osteomyelitis. 2. Healing minimally displaced fracture of the 5th proximal phalangeal base without extension to the articular surface. 3. Prior amputation of the 2nd ray at the metatarsophalangeal joint. 4. Calcaneal enthesopathy. Approved by: Evangelist Ruiz M.D. on 11/14/2023 at 21:04
== END ==
PROVIDERS: Family Provider Nurse Practitioner Family; PCP Nurse Practitioner Family; Referring Provider Surgery; Visit Provider Surgery
DX: E11.621 Type 2 diabetes mellitus with foot ulcer (principal); L97.419 Non-pressure chronic ulcer of right heel and midfoot with unspecified severity; M19.071 Primary osteoarthritis, right ankle and foot; S92.514D Nondisplaced fracture of proximal phalanx of right lesser toe(s), subsequent encounter for fracture with routine healing; M77.31 Calcaneal spur, right foot; Z89.421 Acquired absence of other right toe(s); L97.412 Non-pressure chronic ulcer of right heel and midfoot with fat layer exposed; E11.42 Type 2 diabetes mellitus with diabetic polyneuropathy; L84 Corns and callosities; L53.9 Erythematous condition, unspecified
CPT/HCPCS: 11042; 73630

== ENCOUNTER → 2023-11-21 11:44 | Outpatient (CLI) | payer MEDICARE, MEDICAID, SELFPAY ==
[2022-12-29 15:10] VITALS: BMI 39.4
== END ==
PROVIDERS: Family Provider Nurse Practitioner Family; PCP Nurse Practitioner Family; Referring Provider Podiatrist; Visit Provider Surgery
DX: L97.413 Non-pressure chronic ulcer of right heel and midfoot with necrosis of muscle (principal); E11.621 Type 2 diabetes mellitus with foot ulcer; E11.42 Type 2 diabetes mellitus with diabetic polyneuropathy; L84 Corns and callosities; L53.9 Erythematous condition, unspecified
CPT/HCPCS: 11042

== ENCOUNTER → 2023-11-22 06:20 | Outpatient (ROUT) | payer MEDICARE, MEDICAID, SELFPAY ==
[2022-12-29 15:10] VITALS: BMI 39.4
[2023-11-22 07:27] LABS: Ammonia (NH3) 36 umol/L (9-30)
== END ==
PROVIDERS: Family Provider Nurse Practitioner Family; PCP Nurse Practitioner Family; Visit Provider Nurse Practitioner Family
DX: K74.60 Unspecified cirrhosis of liver (principal)
CPT/HCPCS: 36415; 82140

== ENCOUNTER → 2023-11-28 10:21 | Outpatient (CLI) | payer MEDICARE, MEDICAID, SELFPAY ==
[2022-12-29 15:10] VITALS: BMI 39.4
== END ==
LOC: WC 10:22
PROVIDERS: Family Provider Nurse Practitioner Family; PCP Nurse Practitioner Family; Referring Provider Podiatrist; Visit Provider Surgery
DX: E11.621 Type 2 diabetes mellitus with foot ulcer (principal); E11.42 Type 2 diabetes mellitus with diabetic polyneuropathy; L97.412 Non-pressure chronic ulcer of right heel and midfoot with fat layer exposed; L84 Corns and callosities; L53.9 Erythematous condition, unspecified
CPT/HCPCS: 11042

== ENCOUNTER → 2023-12-01 08:55 | Outpatient (CLI) | payer MEDICARE, MEDICAID, SELFPAY ==
[2022-12-29 15:10] VITALS: BMI 39.4
== END ==
PROVIDERS: Family Provider Nurse Practitioner Family; PCP Nurse Practitioner Family; Referring Provider Podiatrist; Visit Provider Physician Assistant
DX: E11.621 Type 2 diabetes mellitus with foot ulcer (principal); E11.42 Type 2 diabetes mellitus with diabetic polyneuropathy; L97.412 Non-pressure chronic ulcer of right heel and midfoot with fat layer exposed; L84 Corns and callosities; L53.9 Erythematous condition, unspecified
CPT/HCPCS: 99213

== ENCOUNTER → 2023-12-08 09:07 | Outpatient (CLI) | payer MEDICARE, MEDICAID, SELFPAY ==
[2022-12-29 15:10] VITALS: BMI 39.4
== END ==
LOC: WC 09:08
PROVIDERS: Family Provider Nurse Practitioner Family; PCP Nurse Practitioner Family; Referring Provider Podiatrist; Visit Provider Physician Assistant
DX: E11.42 Type 2 diabetes mellitus with diabetic polyneuropathy (principal); L84 Corns and callosities; R23.4 Changes in skin texture
CPT/HCPCS: 99212; 99213

== ENCOUNTER → 2023-12-14 13:25 | Outpatient (CLI) | payer MEDICARE, MEDICAID, SELFPAY ==
[2022-12-29 15:10] VITALS: BMI 39.4
== END ==
LOC: WC 13:26
PROVIDERS: Family Provider Nurse Practitioner Family; PCP Nurse Practitioner Family; Referring Provider Nurse Practitioner Family; Visit Provider Surgery
DX: Z09 Encounter for follow-up examination after completed treatment for conditions other than malignant neoplasm (principal); Z86.31 Personal history of diabetic foot ulcer
CPT/HCPCS: 99212; 99213

== ENCOUNTER → 2024-01-17 06:14 | Outpatient (ROUT) | payer MEDICARE, MEDICAID, SELFPAY ==
[2022-12-29 15:10] VITALS: BMI 39.4
[2024-01-17 07:54] LABS: Add Manual Diff / Slide Review NO; Basophils Absolute Auto 0 /uL (0-100); Basophils Percent Auto 0.5 % (0-2); Eosinophils Absolute Auto 1000 /uL (0-450); Eosinophils Percent Auto 13.1 % (2-4); Hematocrit 29.2 % (41-53); Hemoglobin 10.1 g/dL (13.5-17.5); Lymphocytes Absolute Auto 3000 /uL (1100-4500); Lymphocytes Percent Auto 38.2 % (25-40); Mean Corpuscular HGB Conc 34.5 % (30-36); Mean Corpuscular Volume 92.8 fL (80-100); Monocytes Absolute Auto 500 /uL (0-900); Monocytes Percent Auto 5.8 % (3-14); Neutrophils Absolute Auto 3300 /uL (1500-7000); Neutrophils Percent Auto 42.4 % (50-75); Platelet Count 156 X10^3/uL (150-400); Red Blood Cell Count 3.14 X10^6/uL (4.5-5.9); Red Cell Distribution Width 13.6 % (11.6-14.8); White Blood Cell Count 7.9 X10^3/uL (4.5-11.0)
[2024-01-17 08:11] LABS: BUN Creatinine Ratio 32.5 (6-22); Blood Urea Nitrogen 25 mg/dL (9-20); Carbon Dioxide 33 mmol/L (22-32); Chloride 101 mmol/L (98-107); Estimated Glomerular Filt Rate > 60 mL/min (>60); Glucose 150 mg/dL (80-110); HEMOLYSIS < 15 (0-50); Hemoglobin A1C% w Est Avg Glu 6.4 % (4.0-6.0); Potassium 3.8 mmol/L (3.4-5.1); Sodium 136 mmol/L (137-145)
[2024-01-17 09:00] LABS: Vitamin B12 810 pg/mL (239-931)
== END ==
PROVIDERS: Family Provider Nurse Practitioner Family; PCP Nurse Practitioner Family; Visit Provider Nurse Practitioner Family
DX: E11.8 Type 2 diabetes mellitus with unspecified complications (principal); E53.8 Deficiency of other specified B group vitamins
CPT/HCPCS: 36415; 80048; 82607; 83036; 85025

== ENCOUNTER 2024-03-05 11:46 | Inpatient (IN) | payer MEDICARE, MEDICAID, SELFPAY ==
[2022-12-29 15:10] VITALS: BMI 39.4
[2024-03-05] VITALS (11 sets, daily range): BP systolic 131–170; BP diastolic 63–75; PULSE 70–85; RESP 12–20; TEMP 36.6–36.8; O2SAT 96–98; BMI 39.0
--- NOTE | 2024-03-05 12:06 | DI.RAD.S_ITS ---
PROCEDURE: XR CHEST 1V INDICATIONS: altered mental status TECHNIQUE: One view of the chest was acquired. COMPARISON: [facility], CR, XR CHEST 1V, 11/01/2023, 19:50. [facility], CR, XR CHEST 1V, 01/11/2023, 14:33. FINDINGS: Surgical changes and devices: None. Lungs and pleura: Low lung volumes. Perihilar vascular crowding. Mediastinum: Mediastinal contours appear normal. Heart size is normal. Bones and chest wall: No suspicious bony lesions. Overlying soft tissues appear unremarkable. IMPRESSION: No acute cardiopulmonary abnormality is seen. Dictated by: Otf Ambrosio M.D. on 03/05/2024 at 12:51 Approved by: Otf Ambrosio M.D. on 03/05/2024 at 12:51
--- NOTE | 2024-03-05 12:06 | EKG_ITS ---
[place] [id number] [place] [id number] Test Date: 2024-03-05 Pat Name: Josue Mesa Department: [facility] Room: Gender: Male Per Diem Physical Therapist: heath jamison : [id number] Requested By: Order Number: [id number] Reading MD: Sushil Santos MD Measurements Intervals [place] Rate: 77 P: 47 [place]: 176 QRS: -25 QRSD: 84 T: 41 QT: 376 QTc: 425 Interpretive Statements Normal sinus rhythm Minimal voltage criteria for LVH, may be normal variant ( R in aVL ) Electronically Signed On 03-06-2024 8:42:03 PST by Sushil Santos MD
[2024-03-05 12:16] LABS: Add Manual Diff / Slide Review NO; Basophils Absolute Auto 0 /uL (0-100); Basophils Percent Auto 0.7 % (0-2); Eosinophils Absolute Auto 600 /uL (0-450); Eosinophils Percent Auto 8.2 % (2-4); Hematocrit 37.7 % (41-53); Hemoglobin 12.7 g/dL (13.5-17.5); Lymphocytes Absolute Auto 1600 /uL (1100-4500); Lymphocytes Percent Auto 21.9 % (25-40); Mean Corpuscular HGB Conc 33.7 % (30-36); Mean Corpuscular Hemoglobin 31.3 PG (26-34); Mean Corpuscular Volume 92.9 fL (80-100); Monocytes Absolute Auto 500 /uL (0-900); Neutrophils Absolute Auto 4500 /uL (1500-7000); Neutrophils Percent Auto 62.2 % (50-75); Platelet Count 177 X10^3/uL (150-400); Red Blood Cell Count 4.06 X10^6/uL (4.5-5.9); Red Cell Distribution Width 14.1 % (11.6-14.8); White Blood Cell Count 7.2 X10^3/uL (4.5-11.0)
[2024-03-05 12:26] LABS: Alanine Aminotransferase 33 IU/L (<50); Albumin 4.4 g/dL (3.5-5.0); Albumin Globulin Ratio 1.5 (1.0-2.8); Alkaline Phosphatase 95 U/L (38-126); Aspartate Aminotransferase 32 IU/L (17-59); BUN Creatinine Ratio 22.1 (6-22); Bilirubin Total 0.6 mg/dL (0.2-1.3); Blood Urea Nitrogen 25 mg/dL (9-20); Calcium 10.1 mg/dL (8.4-10.2); Carbon Dioxide 31 mmol/L (22-32); Chloride 99 mmol/L (98-107); Estimated Glomerular Filt Rate > 60 mL/min (>60); Glucose 324 mg/dL (80-110); HEMOLYSIS < 15 (0-50); Potassium 4.4 mmol/L (3.4-5.1); Sodium 138 mmol/L (137-145); Total Protein 7.4 g/dL (6.3-8.2)
[2024-03-05 12:27] LABS: Ammonia (NH3) 138 umol/L (9-30)
--- NOTE | 2024-03-05 12:29 | ED_ITS ---
HPI - General Adult General Chief complaint: Weakness Stated complaint: Increased WKN, High Ammonia Levels Time Seen by Provider: 03/05/24 11:56 Source: patient and EMS Mode of arrival: EMS History of Present Illness HPI narrative: 68-year-old gentleman with a history of diabetes with prior osteomyelitis toe amputations peripheral neuropathies, history of NSTEMI, liver failure who is a [facility] who reports that he is feeling ?off?. Speech is slowed, affect is slowed, he is globally weak but able to indicate that he has not had fevers or chills. He has not coughing having no chest pain. When I explained to him that his ammonia level was elevated he stated ?well that is not surprising. He notes that he has been having some diarrhea and has not been taking his lactulose recently. Does not describe any skin changes or concerns for infection. No headache. No localizing neurologic findings Related Data Home Medications Medication Instructions Recorded Confirmed gabapentin 800 mg tablet 1,200 mg PO TID ##0 10/07/12 01/11/23 furosemide 80 mg tablet 40 mg PO BID ##0 10/15/15 01/11/23 enalapril maleate 20 mg tablet 20 mg PO Q DAY ##0 03/06/16 01/11/23 primidone 50 mg tablet 250 tab PO BID 02/07/18 01/11/23 multivitamin 1 cap PO DAILY 11/02/18 12/29/22 vitamin B complex 1 cap PO DAILY 11/02/18 01/11/23 insulin glargine 100 unit/mL (3 See Rx Instructions .Route .COMPLEX 01/16/22 01/11/23 mL) subcutaneous pen (Lantus Solostar U-100 Insulin) pantoprazole 40 mg tablet,delayed 40 mg PO DAILY 01/16/22 01/11/23 release ferrous sulfate 325 mg (65 mg 325 mg PO DAILY 01/11/23 01/11/23 iron) tablet atorvastatin 20 mg tablet 20 mg PO DAILY 03/05/24 03/05/24 bisacodyl 5 mg tablet,delayed 5 mg PO 03/05/24 release lactulose 10 gram/15 mL oral 30 ml PO DAILY 03/05/24 03/05/24 solution prednisolone acetate 1 % eye drp EYE-BOTH 03/05/24 drops,suspension sennosides 8.6 mg tablet (senna) 17.2 mg PO DAILY 03/05/24 03/05/24 tamsulosin 0.4 mg capsule 0.4 mg PO DAILY 03/05/24 03/05/24 Previous Rx's Medication Instructions Recorded acetaminophen 325 mg tablet 650 mg (2 x 325 mg) PO Q6H PRN 12/30/22 Fever/Mild Pain (1-3) #60 tabs oxycodone 5 mg tablet 5 mg PO Q6H PRN Pain, Moderate 12/30/22 (4-6) #25 tabs Allergies Allergy/AdvReac Type Severity Reaction Status Date / Time amoxicillin [From AUGMENTIN] AdvReac Mild UPSET Verified 03/05/24 12:05 STOMACH clavulanic acid AdvReac Mild UPSET Verified 03/05/24 12:05 [From AUGMENTIN] STOMACH Review of Systems Review of Systems Narrative: Pertinent positive and negative findings as per HPI Patient History Medical History History of non-ST elevation myocardial infarction (NSTEMI) AGATHA treated with BiPAP Severe muscle deconditioning Sedentary lifestyle Closed non-physeal fracture of proximal phalanx of great toe with malunion Chronic ulcer of right foot limited to breakdown of skin Insulin dependent diabetes mellitus Peripheral vascular disease Hypertension Depression Toe amputation status Peripheral autonomic neuropathy Sepsis (02/27/17) Cellulitis (02/27/17) Sleep apnea MRSA (methicillin resistant Staphylococcus aureus) (02/27/17) Visit for wound care Essential tremor Thrombocytopenia Morbid obesity Polypharmacy Diabetes Surgical History History of amputation of lesser toe of right foot Family History Father Cancer Congestive heart failure Mother Cancer Social History household members: none Smoking Status: Never smoker alcohol intake: current Smoking Status: Never smoker alcohol intake frequency: other Exam Initial Vital Signs Initial Vital Signs: Vital Signs Temperature 98.3 F 03/05/24 11:46 Pulse Rate 80 03/05/24 11:46 Respiratory Rate 16 03/05/24 11:46 Blood Pressure 170/72 H 03/05/24 11:46 Pulse Oximetry 98 03/05/24 11:46 Oxygen Delivery Method Room Air 03/05/24 11:46 General: Pale, globally weak, overall slowed with flat affect but able to answer questions and cooperate HEENT: Moist mucous membranes, normal sclera with reactive pupils, Neck: No JVD, Respiratory: Lungs are clear to auscultation, Cardiac: Regular rate and rhythm no murmurs Abdomen: Soft, nontender, good bowel tones, no flank pain Skin: Warm and dry, no rashes, no jaundice, no evidence of cellulitis Neurologic: Globally weak but moving all extremities. Slowed overall speech Extremities: No trauma, well perfused, no evidence of lower extremity injuries or infection Psych: Cooperative, flat affect, cognitive slowing Course Orders Ordered: ED Orders 03/05/24 12:05 Ammonia (NH3) Stat Complete Blood Count AUTO DIFF Stat Comprehensive Metabolic Panel Stat 03/05/24 12:06 XR chest 1V Stat EKG-12 Lead Stat Enalapril Maleate (Enalapril 5 Mg Tablet) 20 mg PO DAILY [facility] Enoxaparin Sodium (Enoxaparin 40 Mg/0.4 Ml Syringe) 40 mg SUBCUT DAILY [facility] Gabapentin (Gabapentin 400 Mg Capsule) 1,200 mg PO TID [facility] Sodium Chloride (Normal Saline 0.9%) 1,000 mls @ 100 mls/hr IV CONT RIK Insulin Glargine (Insulin Glargine 100 Unit/Ml 3ml Pen) 40 unit SUBCUT DAILY RIK Insulin Glargine (Insulin Glargine 100 Unit/Ml 3ml Pen) 10 unit SUBCUT BEDTIME RIK Insulin Human Lispro (Insulin Lispro 100 Unit/Ml 3ml Vial) 0 unit SUBCUT Q6HR RIK; Protocol Lactulose (Lactulose 20 Gm/30 Ml Solution) 20 gm PO DAILY [facility] Naloxone HCl (Naloxone 0.4 Mg/Ml Vial) 0.2 mg IV Q2MIN PRN PRN Reason: Opiate Reversal Oxycodone HCl (Oxycodone Ir 5 Mg Tablet) 5 mg PO Q6H PRN PRN Reason: Pain, Moderate (4-6) Pantoprazole Sodium (Pantoprazole Dr 40 Mg Tablet) 40 mg PO DAILY [facility] Primidone (Primidone 50 Mg Tablet) 12,500 mg PO BID [facility] Tamsulosin HCl (Tamsulosin 0.4 Mg Capsule) 0.4 mg PO DAILY RIK Discontinued Medications Lactulose (Lactulose 20 Gm/30 Ml Solution) 20 gm PO NOW ONE Stop: 03/05/24 12:39 Last Admin: 03/05/24 12:47 Dose: 20 gm Documented By: COREY Vital Signs Vital signs: Vital Signs - 8 hr 03/05/24 11:46 03/05/24 11:55 03/05/24 11:57 Temperature 98.3 F Pulse Rate 80 85 Respiratory Rate 16 Blood Pressure 170/72 H 170/72 H Pulse Oximetry 98 98 Oxygen Delivery Method Room Air 03/05/24 11:57 03/05/24 12:00 03/05/24 12:00 Temperature Pulse Rate 79 78 Respiratory Rate 12 Blood Pressure 166/70 H Pulse Oximetry 98 97 Oxygen Delivery Method 03/05/24 12:30 03/05/24 12:30 Temperature Pulse Rate 77 Respiratory Rate 20 Blood Pressure 142/65 H Pulse Oximetry 98 Oxygen Delivery Method Medical Decision Making Lab Data 03/05/24 12:05 03/05/24 12:05 Labs: Lab Results 03/05/24 Range/Units 12:05 WBC 7.2 (4.5-11.0) X10^3/uL RBC 4.06 L (4.5-5.9) X10^6/uL Hgb 12.7 L (13.5-17.5) g/dL Hct 37.7 L (41-53) % MCV 92.9 (80-100) fL MCH 31.3 (26-34) PG MCHC 33.7 (30-36) % RDW 14.1 (11.6-14.8) % Plt Count 177 (150-400) X10^3/uL Neut % (Auto) 62.2 (50-75) % Lymph % (Auto) 21.9 L (25-40) % [place] % (Auto) 7.0 (3-14) % Eos % (Auto) 8.2 H (2-4) % Baso % (Auto) 0.7 (0-2) % Neut # (Auto) 4500 (4259-5575) /uL Lymph # (Auto) 1600 (3321-5989) /uL [place] # (Auto) 500 (0-900) /uL Eos # (Auto) 600 H (0-450) /uL Baso # (Auto) 0 (0-100) /uL Sodium 138 (137-145) mmol/L Potassium 4.4 (3.4-5.1) mmol/L Chloride 99 (98-107) mmol/L Carbon Dioxide 31 (22-32) mmol/L BUN 25 H (9-20) mg/dL Creatinine 1.13 (0.66-1.25) mg/dL Estimated GFR > 60 (>60) mL/min BUN/Creatinine Ratio 22.1 H (6-22) Glucose 324 H (80-110) mg/dL Calcium 10.1 (8.4-10.2) mg/dL Total Bilirubin 0.6 (0.2-1.3) mg/dL AST 32 (17-59) IU/L ALT 33 (<50) IU/L Alkaline Phosphatase 95 (38-126) U/L Ammonia 138 H (9-30) umol/L Total Protein 7.4 (6.3-8.2) g/dL Albumin 4.4 (3.5-5.0) g/dL Globulin 3.0 (1.7-4.1) g/dL Albumin/Globulin Ratio 1.5 (1.0-2.8) Point of Care Testing Glucose POC 412 Point of care testing: Point of Care Testing Glucose POC 412 MDM Narrative Medical decision making narrative: CC: Weakness Complicating co-morbidities: Type 2 diabetes, what appears to be nonalcoholic liver disease noncompliant with his lactulose, hypertension Data collected from: patient Medical records reviewed: ER visit October of 2023 for weakness is appreciated and reviewed. Hospitalization December of 2022 for similar findings also reviewed Differential considered: Elevated ammonia level, sepsis, stroke, other electrolyte abnormality Exam documented above, pertinent findings include: Pleasant appearing in no acute distress overall globally slowed and cognitively slowed. Heart lungs and abdomen are benign Lab Test results independently reviewed as above. Pertinent findings: CBC is unremarkable, H&H is actually higher than it has been previously Chemistries show normal renal function, minimally elevated glucose at 324 Ammonia significantly elevated at 138 Independently reviewed EKG: Sinus rhythm at a rate of 77 without acute ischemic changes Imaging studies independently reviewed: Chest x-ray shows small inspiration, question of some hilar fullness. No significant cardiomegaly or other infiltrates Treatments: Oral lactulose Discussion: 68-year-old gentleman with elevated ammonia level at 138 and physical exam consistent with that. No secondary source of abnormalities are appreciated. He has had prior admissions for this with CT scans done at that time without new findings I did not feel that a CT scan of the head for his altered mental status with an obvious etiology was warranted today. I am seeing no signs of infection, DKA/HHS or alternate explanations for findings. He is restarted on his lactulose and care is reviewed with the hospitalist. Discharge Plan Departure Patient Disposition: Admitted as Observation Clinical Impression: Acute alteration in mental status, Increased ammonia level Admit Date/Time: 03/05/24 12:48 Admit Provider: Jaison Blancas
[2024-03-05] MEDS: LACTULOSE 20 GM/30 ML SOLUTION PO (12:47)
--- NOTE | 2024-03-05 13:48 | P.HP_ITS ---
History of Present Illness History of Present Illness Date Patient Seen: 03/05/24 Time Patient Seen: 13:48 Chief complaint: Increased WKN, High Ammonia Levels Narrative: This is a 68 year old male [facility] Medical History History of non-ST elevation myocardial infarction (NSTEMI) AGATHA treated with BiPAP Severe muscle deconditioning Sedentary lifestyle Closed non-physeal fracture of proximal phalanx of great toe with malunion Chronic ulcer of right foot limited to breakdown of skin Insulin dependent diabetes mellitus Peripheral vascular disease Hypertension Depression Toe amputation status Peripheral autonomic neuropathy Sepsis (02/27/17) Cellulitis (02/27/17) Sleep apnea MRSA (methicillin resistant Staphylococcus aureus) (02/27/17) Visit for wound care Essential tremor Thrombocytopenia Morbid obesity Polypharmacy Diabetes Surgical History History of amputation of lesser toe of right foot Family History Father Cancer Congestive heart failure Mother Cancer Social History household members: none Smoking Status: Never smoker alcohol intake: current Meds Home Medications and Allergies Home Medications Medication Instructions Recorded Confirmed Type gabapentin 800 mg tablet 1,200 mg PO TID ##0 10/07/12 01/11/23 History furosemide 80 mg tablet 40 mg PO BID ##0 10/15/15 01/11/23 History enalapril maleate 20 mg tablet 20 mg PO Q DAY ##0 03/06/16 01/11/23 History primidone 50 mg tablet 250 tab PO BID 02/07/18 01/11/23 History multivitamin 1 cap PO DAILY 11/02/18 12/29/22 History vitamin B complex 1 cap PO DAILY 11/02/18 01/11/23 History insulin glargine 100 unit/mL (3 See Rx Instructions .Route .COMPLEX 01/16/22 01/11/23 History mL) subcutaneous pen (Lantus Solostar U-100 Insulin) pantoprazole 40 mg tablet,delayed 40 mg PO DAILY 01/16/22 01/11/23 History release acetaminophen 325 mg tablet 650 mg (2 x 325 mg) PO Q6H PRN 12/30/22 01/11/23 Rx Fever/Mild Pain (1-3) #60 tabs oxycodone 5 mg tablet 5 mg PO Q6H PRN Pain, Moderate 12/30/22 01/11/23 Rx (4-6) #25 tabs ferrous sulfate 325 mg (65 mg 325 mg PO DAILY 01/11/23 01/11/23 History iron) tablet atorvastatin 20 mg tablet 20 mg PO DAILY 03/05/24 03/05/24 History bisacodyl 5 mg tablet,delayed 5 mg PO 03/05/24 History release lactulose 10 gram/15 mL oral 30 ml PO DAILY 03/05/24 03/05/24 History solution prednisolone acetate 1 % eye drp EYE-BOTH 03/05/24 History drops,suspension sennosides 8.6 mg tablet (senna) 17.2 mg PO DAILY 03/05/24 03/05/24 History tamsulosin 0.4 mg capsule 0.4 mg PO DAILY 03/05/24 03/05/24 History Allergies Allergy/AdvReac Type Severity Reaction Status Date / Time amoxicillin [From AUGMENTIN] AdvReac Mild UPSET Verified 03/05/24 12:05 STOMACH clavulanic acid AdvReac Mild UPSET Verified 03/05/24 12:05 [From AUGMENTIN] STOMACH Exam Vital Signs (past 8 hours): - 03/05/24 11:46 03/05/24 11:55 03/05/24 11:57 Temperature 98.3 F Pulse Rate 80 85 Respiratory Rate 16 Blood Pressure 170/72 H 170/72 H Pulse Oximetry 98 98 Oxygen Delivery Method Room Air 03/05/24 11:57 03/05/24 12:00 03/05/24 12:00 Temperature Pulse Rate 79 78 Respiratory Rate 12 Blood Pressure 166/70 H Pulse Oximetry 98 97 Oxygen Delivery Method 03/05/24 12:30 03/05/24 12:30 03/05/24 13:00 Temperature Pulse Rate 77 Respiratory Rate 20 Blood Pressure 142/65 H 144/69 H Pulse Oximetry 98 Oxygen Delivery Method 03/05/24 13:00 03/05/24 13:30 03/05/24 13:30 Temperature Pulse Rate 76 70 Respiratory Rate 19 14 Blood Pressure 139/63 Pulse Oximetry 97 98 Oxygen Delivery Method Oxygen Delivery Method Room Air Objective Labs 03/05/24 12:05 03/05/24 12:05 Labs: Laboratory Results - last 24 hr 03/05/24 12:05 WBC 7.2 RBC 4.06 L Hgb 12.7 L Hct 37.7 L MCV 92.9 MCH 31.3 MCHC 33.7 RDW 14.1 Plt Count 177 Neut % (Auto) 62.2 Lymph % (Auto) 21.9 L [place] % (Auto) 7.0 Eos % (Auto) 8.2 H Baso % (Auto) 0.7 Neut # (Auto) 4500 Lymph # (Auto) 1600 [place] # (Auto) 500 Eos # (Auto) 600 H Baso # (Auto) 0 Sodium 138 Potassium 4.4 Chloride 99 Carbon Dioxide 31 BUN 25 H Creatinine 1.13 Estimated GFR > 60 BUN/Creatinine Ratio 22.1 H Glucose 324 H Calcium 10.1 Total Bilirubin 0.6 AST 32 ALT 33 Alkaline Phosphatase 95 Ammonia 138 H Total Protein 7.4 Albumin 4.4 Globulin 3.0 Albumin/Globulin Ratio 1.5 Assessment & Plan Time-Based Coding :: [TOTAL MINUTES] spent with patient and on the chart (including review of chart, obtaining history, exam, reviewing outside data, placing orders, documenting exam and treatment plan, and counseling patient) on [DATE].
[2024-03-05] MEDS: SODIUM CHLORIDE 0.9% 1,000 ML 100 ML IV (14:50)
[2024-03-05] MEDS: GABAPENTIN 400 MG CAPSULE 1200 MG PO ×2 (14:50→20:54)
[2024-03-05] MEDS: INSULIN LISPRO 100 UNIT/ML 3ML VIAL SUBCUT ×3 (14:54→20:52)
[2024-03-05 17:44] LABS: Alanine Aminotransferase 31 IU/L (<50); Albumin 3.8 g/dL (3.5-5.0); Albumin Globulin Ratio 1.5 (1.0-2.8); Alkaline Phosphatase 69 U/L (38-126); Aspartate Aminotransferase 33 IU/L (17-59); BUN Creatinine Ratio 28.2 (6-22); Bilirubin Total 0.5 mg/dL (0.2-1.3); Blood Urea Nitrogen 24 mg/dL (9-20); Calcium 9.7 mg/dL (8.4-10.2); Carbon Dioxide 31 mmol/L (22-32); Chloride 102 mmol/L (98-107); Estimated Glomerular Filt Rate > 60 mL/min (>60); Globulin 2.6 g/dL (1.7-4.1); Glucose 298 mg/dL (80-110); HEMOLYSIS 33 (0-50); Potassium 4.3 mmol/L (3.4-5.1); Sodium 135 mmol/L (137-145); Total Protein 6.4 g/dL (6.3-8.2)
--- NOTE | 2024-03-05 19:13 | P.HP_ITS ---
History of Present Illness History of Present Illness Chief complaint: Increased WKN, High Ammonia Levels Narrative: This is a 68 year old male with a history of hyperlipidemia, essential tremor, diabetes mellitus, peripheral neuropathy, peripheral vascular disease, hypertension, depression, sleep apnea and foot ulcers who presents with encephalopathy. He lives in an assisted living situation and apparently was increasingly confused so was brought to the ED. He has a history of nonalcoholic end-stage liver disease with previous episodes of encephalopathy but has been reportedly not using his lactulose as prescribed because of the diarrhea side effect. He is unable to contribute much to the history as far as recent details. [facility] Medical History History of non-ST elevation myocardial infarction (NSTEMI) AGATHA treated with BiPAP Severe muscle deconditioning Sedentary lifestyle Closed non-physeal fracture of proximal phalanx of great toe with malunion Chronic ulcer of right foot limited to breakdown of skin Insulin dependent diabetes mellitus Peripheral vascular disease Hypertension Depression Toe amputation status Peripheral autonomic neuropathy Sepsis (02/27/17) Cellulitis (02/27/17) Sleep apnea MRSA (methicillin resistant Staphylococcus aureus) (02/27/17) Visit for wound care Essential tremor Thrombocytopenia Morbid obesity Polypharmacy Diabetes Surgical History History of amputation of lesser toe of right foot Family History Father Cancer Congestive heart failure Mother Cancer Social History household members: none Smoking Status: Never smoker alcohol intake: never Meds Home Medications and Allergies Home Medications Medication Instructions Recorded Confirmed Type gabapentin 800 mg tablet 1,200 mg PO TID ##0 10/07/12 03/05/24 History furosemide 80 mg tablet 40 mg PO BID ##0 10/15/15 03/05/24 History enalapril maleate 20 mg tablet 20 mg PO Q DAY ##0 03/06/16 03/05/24 History primidone 50 mg tablet 200 tab PO BID 02/07/18 03/05/24 History multivitamin 1 cap PO DAILY 11/02/18 03/05/24 History vitamin B complex 1 cap PO DAILY 11/02/18 03/05/24 History insulin glargine 100 unit/mL (3 See Rx Instructions .Route .COMPLEX 01/16/22 03/05/24 History mL) subcutaneous pen (Lantus Solostar U-100 Insulin) pantoprazole 40 mg tablet,delayed 40 mg PO DAILY 01/16/22 03/05/24 History release acetaminophen 325 mg tablet 650 mg (2 x 325 mg) PO Q6H PRN 12/30/22 01/11/23 Rx Fever/Mild Pain (1-3) #60 tabs oxycodone 5 mg tablet 5 mg PO Q6H PRN Pain, Moderate 12/30/22 01/11/23 Rx (4-6) #25 tabs ferrous sulfate 325 mg (65 mg 325 mg PO BID 01/11/23 03/05/24 History iron) tablet atorvastatin 20 mg tablet 20 mg PO DAILY 03/05/24 03/05/24 History bisacodyl 5 mg tablet,delayed 5 mg PO 03/05/24 History release docusate sodium 100 mg capsule 100 mg PO DAILY 03/05/24 03/05/24 History fluticasone propionate 50 2 spray intranasal DAILY 03/05/24 03/05/24 History mcg/actuation nasal spray,suspension lactulose 10 gram/15 mL oral 30 ml PO DAILY 03/05/24 03/05/24 History solution metformin 1,000 mg PO BID 03/05/24 03/05/24 History oxycodone 10 mg tablet 10 mg PO TID PRN Pain (Scale Score 03/05/24 03/05/24 History 4-6) prednisolone acetate 03/05/24 History prednisolone acetate 1 % eye drp EYE-BOTH 03/05/24 History drops,suspension semaglutide 0.25 mg or 0.5 mg (2 0.5 mg SUBCUT WEEKLY 03/05/24 03/05/24 History mg/3 mL) subcutaneous pen injector (Ozempic) sennosides 8.6 mg tablet (senna) 17.2 mg PO DAILY 03/05/24 03/05/24 History tamsulosin 0.4 mg capsule 0.4 mg PO DAILY 03/05/24 03/05/24 History Allergies Allergy/AdvReac Type Severity Reaction Status Date / Time amoxicillin [From AUGMENTIN] AdvReac Mild UPSET Verified 03/05/24 12:05 STOMACH clavulanic acid AdvReac Mild UPSET Verified 03/05/24 12:05 [From AUGMENTIN] STOMACH Review of Systems Review of Systems Narrative: Positive for weakness, confusion, high blood sugars. Negative for vomiting, abdominal pain, diarrhea, dysuria, chest pain, shortness breast, coughing, fevers, bleeding, rashes, new allergies. Exam Vital Signs (past 8 hours): - 03/05/24 11:46 03/05/24 11:55 03/05/24 11:57 Temperature 98.3 F Pulse Rate 80 85 Respiratory Rate 16 Blood Pressure 170/72 H 170/72 H Pulse Oximetry 98 98 Oxygen Delivery Method Room Air Oxygen Flow Rate 03/05/24 11:57 03/05/24 12:00 03/05/24 12:00 Temperature Pulse Rate 79 78 Respiratory Rate 12 Blood Pressure 166/70 H Pulse Oximetry 98 97 Oxygen Delivery Method Oxygen Flow Rate 03/05/24 12:30 03/05/24 12:30 03/05/24 13:00 Temperature Pulse Rate 77 Respiratory Rate 20 Blood Pressure 142/65 H 144/69 H Pulse Oximetry 98 Oxygen Delivery Method Oxygen Flow Rate 03/05/24 13:00 03/05/24 13:30 03/05/24 13:30 Temperature Pulse Rate 76 70 Respiratory Rate 19 14 Blood Pressure 139/63 Pulse Oximetry 97 98 Oxygen Delivery Method Oxygen Flow Rate 03/05/24 14:00 03/05/24 16:32 Temperature 97.9 F Pulse Rate 72 82 Respiratory Rate 12 20 Blood Pressure 131/63 139/75 Pulse Oximetry 98 98 Oxygen Delivery Method Room Air Oxygen Flow Rate 0 Oxygen Delivery Method Room Air Oxygen Flow Rate 0 Narrative Exam Narrative: The patient is alert and oriented to his name. He is unable to explain the date or the location. His speech pattern and cognition is quite slowed. Pupils are equally round and reactive to light and accommodation. He does not cooperate with extraocular muscle testing. Sclerae are pink and nonicteric. Heart is regular rate and rhythm without murmur Lungs are clear to auscultation bilaterally Abdomen is obese, bowel sounds positive, nontender, Extremities have no ankle edema No lymph nodes are felt head, neck, supraclavicular area There is no thyromegaly JVD is less than 6 cm Throat looks normal Neurologic exam: Motor function is symmetric 2-3/5 upper and lower. There is no tremor. Mentation and processing are slowed and confused. Cranial nerves 2-12 test intact Skin has no rash or jaundice. Objective Labs 03/05/24 12:05 03/05/24 17:15 Labs: Laboratory Results - last 24 hr 03/05/24 03/05/24 12:05 17:15 WBC 7.2 RBC 4.06 L Hgb 12.7 L Hct 37.7 L MCV 92.9 MCH 31.3 MCHC 33.7 RDW 14.1 Plt Count 177 Neut % (Auto) 62.2 Lymph % (Auto) 21.9 L [place] % (Auto) 7.0 Eos % (Auto) 8.2 H Baso % (Auto) 0.7 Neut # (Auto) 4500 Lymph # (Auto) 1600 [place] # (Auto) 500 Eos # (Auto) 600 H Baso # (Auto) 0 Sodium 138 135 L Potassium 4.4 4.3 Chloride 99 102 Carbon Dioxide 31 31 BUN 25 H 24 H Creatinine 1.13 0.85 Estimated GFR > 60 > 60 BUN/Creatinine Ratio 22.1 H 28.2 H Glucose 324 H 298 H Calcium 10.1 9.7 Total Bilirubin 0.6 0.5 AST 32 33 ALT 33 31 Alkaline Phosphatase 95 69 Ammonia 138 H Total Protein 7.4 6.4 Albumin 4.4 3.8 Globulin 3.0 2.6 Albumin/Globulin Ratio 1.5 1.5 Assessment & Plan Assessment & Plan narrative: This is a 68 year old male with a history of hyperlipidemia, diabetes mellitus, peripheral neuropathy, peripheral vascular disease, essential tremor, hypertension, depression, sleep apnea and foot ulcers who presents with encephalopathy. He lives in an assisted living situation and apparently was increasingly confused so was brought to the ED. 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 He has lived at the [facility] for more than 5 years. -resume lactulose 30 g daily along with IV fluid supplementation. Diabetes mellitus type 2 with peripheral neuropathy -high-dose lispro correctional scale and home Lantus dosing. -gabapentin -hold metformin -hold Ozempic -follow blood sugars AC and HS. Diabetic carb choice diet. BPH -tamsulosin Hyperlipidemia -Hold atorvastatin Essential tremor -primidone Obstructive sleep apnea, chronic, with CPAP Code: Full, surrogate brother Lokesh and sister Safia Enoxaparin for DVT prevention Time-Based Coding :: [TOTAL MINUTES] spent with patient and on the chart (including review of chart, obtaining history, exam, reviewing outside data, placing orders, documenting exam and treatment plan, and counseling patient) on [DATE]. Quality VTE Deep Vein Thrombosis/Pulmonary Embolism Present on Admission: No
[2024-03-05] MEDS: INSULIN GLARGINE 100 UNIT/ML 3ML PEN 10 UNIT SUBCUT (20:52)
[2024-03-05] MEDS: FUROSEMIDE 40 MG TABLET PO (20:53)
[2024-03-05] MEDS: PRIMIDONE 50 MG TABLET 200 MG PO (20:54)
[2024-03-05] MEDS: FLUTICASONE 120 SPRAY/16 GM SPRAY.SUSP NASAL (21:59)
[2024-03-06] MEDS: SODIUM CHLORIDE 0.9% 1,000 ML 100 ML IV (00:52)
[2024-03-06 03:47] VITALS: BP 136/77; PULSE 74; RESP 18; TEMP 36.4; O2SAT 96
[2024-03-06 05:22] LABS: Ammonia (NH3) 35 umol/L (9-30)
--- NOTE | 2024-03-06 07:35 | P.PN_ITS ---
Subjective Subjective Date Patient Seen: 03/06/24 Interval history: He is seen today to follow-up his hepatic encephalopathy, end-stage liver disease and diabetes. He tells me that he has been living at the [facility] facility for 8 years now. His PCP is Barbara Rushing. He has a GI doctor in [place]. His ammonia level is down to 35 today. He tells me that he skips his lactulose about 2 days a week. His speech is more fluent but is still quite slow. His mentation is slow and he is tangential. His IV fluid will be stopped today. Exam Vital Signs (past 8 hours): - 03/05/24 23:47 03/06/24 03:47 Temperature 97.8 F 97.6 F Pulse Rate 80 74 Respiratory Rate 19 18 Blood Pressure 136/64 136/77 Pulse Oximetry 96 96 Oxygen Flow Rate 0 0 Oxygen Delivery Method Room Air Oxygen Flow Rate 0 Narrative Exam Narrative: Alert and oriented x3. No apparent distress. Speech slow, mentation slow, tangential. Heart is regular rate and rhythm without murmur Lungs are clear to auscultation bilaterally Motor function is 2/5 in bilateral lower extremities His right 2nd toe has been amputated. There is no ankle edema Objective Labs 03/05/24 12:05 03/05/24 17:15 Labs: Laboratory Results - last 24 hr 03/05/24 03/05/24 03/06/24 12:05 17:15 04:45 WBC 7.2 RBC 4.06 L Hgb 12.7 L Hct 37.7 L MCV 92.9 MCH 31.3 MCHC 33.7 RDW 14.1 Plt Count 177 Neut % (Auto) 62.2 Lymph % (Auto) 21.9 L [place] % (Auto) 7.0 Eos % (Auto) 8.2 H Baso % (Auto) 0.7 Neut # (Auto) 4500 Lymph # (Auto) 1600 [place] # (Auto) 500 Eos # (Auto) 600 H Baso # (Auto) 0 Sodium 138 135 L Potassium 4.4 4.3 Chloride 99 102 Carbon Dioxide 31 31 BUN 25 H 24 H Creatinine 1.13 0.85 Estimated GFR > 60 > 60 BUN/Creatinine Ratio 22.1 H 28.2 H Glucose 324 H 298 H Calcium 10.1 9.7 Total Bilirubin 0.6 0.5 AST 32 33 ALT 33 31 Alkaline Phosphatase 95 69 Ammonia 138 H 35 H Total Protein 7.4 6.4 Albumin 4.4 3.8 Globulin 3.0 2.6 Albumin/Globulin Ratio 1.5 1.5 [facility] Medical History History of non-ST elevation myocardial infarction (NSTEMI) AGATHA treated with BiPAP Severe muscle deconditioning Sedentary lifestyle Closed non-physeal fracture of proximal phalanx of great toe with malunion Chronic ulcer of right foot limited to breakdown of skin Insulin dependent diabetes mellitus Peripheral vascular disease Hypertension Depression Toe amputation status Peripheral autonomic neuropathy Sepsis (02/27/17) Cellulitis (02/27/17) Sleep apnea MRSA (methicillin resistant Staphylococcus aureus) (02/27/17) Visit for wound care Essential tremor Thrombocytopenia Morbid obesity Polypharmacy Diabetes Surgical History History of amputation of lesser toe of right foot Family History Father Cancer Congestive heart failure Mother Cancer Social History household members: none Smoking Status: Never smoker alcohol intake: never Assessment & Plan Assessment & Plan narrative: This is a 68 year old male with a history of hyperlipidemia, diabetes mellitus, peripheral neuropathy, peripheral vascular disease, essential tremor, hypertension, depression, sleep apnea and foot ulcers who presents with encephalopathy. He lives in an assisted living situation and apparently was increasingly confused so was brought to the ED. 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 He has lived at the [facility] for 8 years -resume lactulose 30 g daily along with IV fluid supplementation. -Improved MS with Ammonia of 35 on hospital day 2. Diabetes mellitus type 2 with peripheral neuropathy -high-dose lispro correctional scale and home Lantus dosing. -gabapentin -hold metformin -hold Ozempic -follow blood sugars AC and HS. Diabetic carb choice diet. BPH -tamsulosin Hyperlipidemia -Hold atorvastatin Essential tremor -primidone Obstructive sleep apnea, chronic, with CPAP Plan: -stop IV fluid -continue lactulose -PT evaluation -likely return to [facility] tomorrow. Code: Full, surrogate brother Lokesh and sister Safia Enoxaparin for DVT prevention Time-Based Coding :: [TOTAL MINUTES] spent with patient and on the chart (including review of chart, obtaining history, exam, reviewing outside data, placing orders, documenting exam and treatment plan, and counseling patient) on [DATE]. Quality VTE Deep Vein Thrombosis/Pulmonary Embolism Present on Admission: No
[2024-03-06] MEDS: INSULIN LISPRO 100 UNIT/ML 3ML VIAL SUBCUT ×4 (08:23→21:16)
[2024-03-06] MEDS: ENOXAPARIN 40 MG/0.4 ML SYRINGE SUBCUT (08:23)
[2024-03-06] MEDS: LACTULOSE 20 GM/30 ML SOLUTION PO (08:24)
[2024-03-06] MEDS: FUROSEMIDE 40 MG TABLET PO ×2 (08:25→21:14)
[2024-03-06] MEDS: OXYCODONE IR 5 MG TABLET PO ×3 (08:25→21:11)
[2024-03-06] MEDS: PANTOPRAZOLE DR 40 MG TABLET PO (08:25)
[2024-03-06] MEDS: PRIMIDONE 50 MG TABLET 200 MG PO ×2 (08:25→21:14)
[2024-03-06 08:27] VITALS: BP 146/81; PULSE 70
[2024-03-06] MEDS: ENALAPRIL 5 MG TABLET 20 MG PO (08:27)
[2024-03-06] MEDS: GABAPENTIN 400 MG CAPSULE 1200 MG PO ×3 (08:27→21:14)
[2024-03-06] MEDS: TAMSULOSIN 0.4 MG CAPSULE PO (08:27)
[2024-03-06] MEDS: INSULIN GLARGINE 100 UNIT/ML 3ML PEN 40 UNIT SUBCUT (08:28)
[2024-03-06 08:44] VITALS: BP 146/81; PULSE 70; RESP 18; TEMP 36.2; O2SAT 97
[2024-03-06 12:00] VITALS: BP 135/66; PULSE 78; RESP 17; TEMP 36.9; O2SAT 99
--- NOTE | 2024-03-06 15:19 | CM.DANOTE ---
Initial DCP Assessment Note Pt is a 68yo male, resident at [facility]. Patient presents with AMS PMH includes end satge liver disease. Patient admits to noncompliance with his lactulose due to the side effect of diarrhea. PCP: Barbara Rushing Payer: [facility] MCR/BELEN Reviewed chart, pt discussed in multidisciplinary rounds this morning. Patient has improved and is expected to discharge back to [facility] tomorrow. Patient agreeable to this plan. Placed call to [facility]; spoke with Candle Molder Molly Serra P [phone] ext [phone] who reports patient is mostly indp with use of walker. Patient self transfers, [facility] staff assist with meds and higher ADLs as needed. Molly welcomes patient back for admission when medically ready and requests 1. A call to [facility] main # [phone] to update 2. Fax orders/med list to [phone] Jai at [facility] has scheduled a tentative machine pecan picker time of 1400 03/07. Plan: Discharge back to [facility] anticipated when medically stable, via wheelchair. IRENE Rosales Discharge Planning/Care Management CM Discharge Assessment Start: 03/06/24 15:16 Freq: Status: Active Protocol: Document 03/06/24 15:16 OSORIO (Rec: 03/06/24 15:18 OSORIO [id number]) Discharge Planning Assessment Assigned Psychiatric Social Worker IRENE La DPOA/Assigned Designee Name Lokesh Segura P Contact Information Safia Lei P [phone] Advance Directives? Yes: POLST Advance Directives on File Yes: Dated 03/10/16 History Provided By Medical Record Prior Living Arrangements Assisted Living Household Members none Type of transporation used prior to Relies on Others admit Facility Name Admitted From: [facility] Independent with ADL's No Is patient alert and oriented? Yes Needs Assistance With Grooming,Meal Prep,Managing Medications,Home Chores / Shopping Comment FWW Barriers to Discharge No Discharge Plan Assisted Living Facility Transportation Arrangement facility to transport Referrals Initiated None needed
[2024-03-06 16:00] VITALS: BP 133/66; PULSE 77; RESP 17; TEMP 36.7; O2SAT 99
--- NOTE | 2024-03-06 16:05 | PT.IIE ---
Surgical History (Last Reviewed 01/11/23 @ 17:05 by Vanessa Watts DO) History of amputation of lesser toe of right foot Medical History (Last Reviewed 01/11/23 @ 17:05 by Vanessa Watts DO) Cellulitis (02/27/17) Chronic ulcer of right foot limited to breakdown of skin Closed non-physeal fracture of proximal phalanx of great toe with malunion Depression Diabetes Essential tremor History of non-ST elevation myocardial infarction (NSTEMI) Hypertension Insulin dependent diabetes mellitus Morbid obesity MRSA (methicillin resistant Staphylococcus aureus) (02/27/17) AGATHA treated with BiPAP Peripheral autonomic neuropathy Peripheral vascular disease Polypharmacy Sedentary lifestyle Sepsis (02/27/17) Severe muscle deconditioning Sleep apnea Thrombocytopenia Toe amputation status Visit for wound care Physical Therapy Inpatient Evaluation/Re-Eval M1 PT/OT-IP Prior Functional Status Start: 03/06/24 17:03 Freq: NEEDED Status: Active Protocol: Document 03/06/24 16:05 AB (Rec: 03/06/24 17:12 AB [id number]) Medical Review Prior Functional Status Medical History Reviewed Yes Communication able to make needs known Mobility and Gait pt stated that he was modified independent with all mobilities and ambulation using a 4WW Social History Household Members none Living Arrangements Assisted Living Number of Stairs To Enter/Railing? pt lives at [facility]: 2nd floor with access to an elevator Home Environment Standard Height Toilet,Walk in Shower,Elevator Home Equipment Four Wheel Walker,Shower Seat with Backrest,Hand Held Shower ,Grab Bars In Shower Additional Social History Comment pt stated that there is a transfer pole next to the toilet M2 PT-IP Current Condition Start: 03/06/24 17:03 Freq: NEEDED Status: Active Protocol: Document 03/06/24 16:05 AB (Rec: 03/06/24 17:12 AB [id number]) Physical Therapy Current Condition Current Condition Evaluation Date 03/06/24 Treatment Diagnosis altered mental status; difficulty n walking Onset Date 03/05/24 M3 PT-IP Subjective Start: 03/06/24 17:03 Freq: NEEDED Status: Active Protocol: Document 03/06/24 16:05 AB (Rec: 03/06/24 17:12 AB [id number]) Subjective Physical Therapy Visit Type Type Initial Evaluation Visit Start Time 16:05 Visit Stop Time 16:45 Number of ASSISTANT DIRECTOR OF PUBLIC WORKS Visits 0 Physical Therapy Visit Comments Patient Comments agreeable to do PT M4 PT-IP Mobility and Gait Start: 03/06/24 17:03 Freq: NEEDED Status: Active Protocol: Document 03/06/24 16:05 AB (Rec: 03/06/24 17:12 AB [id number]) PT-Bed Mobility Assessment Supine to Sit Supine to Sit Independent Sit to Supine Sit to Supine Independent PT-Transfer Assessment Sit to and From Stand Sit to and from Stand Standby Assistance,1 Person Assistance,Use of Upper Extremities Equipment Transfer Assistive Device Gait Belt,4 Wheeled Walker Orthotic/Prosthetic Devices or Brace: No Transfers Transfer Destination Bed,Chair Transfer Technique ambulated Transfer Ability Level of Assist Standby Assistance,1 Person Assistance,Use of Upper Extremities Comments Mobility Comments pt up and walking with NAC. pt agreed to do PT. back in his room sitting on the chair. obtained PLOF and home set up. sit to stand SBA and ambulated to EOB using 4WW SBA . completed bed mobility mod I. pt ambulated in the hallway using 4WW ~ 125 ft SBA . pt ambulated back to his room. educated pt on safety and pt understood. informed pt that no further PT indicated at this time and pt understood. informed nurse. Gait Assessment Gait Gait Assistance Required: Standby Assistance Distance (Feet) 125 Able to Maintain Weight Bearing Status Yes During Gait Assistive Devices Assistive Device Gait Belt,4 Wheeled Walker Orthotic/Prosthetic Devices or Brace: No Gait Deviations General Gait Pattern Ataxic,Decreased Stride Length ,Decreased Feet Clearance Factors Limiting Gait Function Factors Limiting Gait Function Decreased Activity Tolerance, Decreased Strength,Limited Range of Motion,Poor Balance, Poor Safety Awareness PT-Balance Assessment Sitting Balance and Reactions Static Sitting Balance Ability Normal Dynamic Sitting Balance Ability Normal Standing Balance and Reactions Static Standing Balance Ability Good Dynamic Standing Balance Ability Fair Device Used 4WW M5 PT-IP Objective Assessments Start: 03/06/24 17:03 Freq: NEEDED Status: Active Protocol: Document 03/06/24 16:05 AB (Rec: 03/06/24 17:12 AB [id number]) Orientation Orientation/Cognition Level of Alertness Alert Orientation Name,Place,Situation Language Function Ability No Deficits Noted Safety Awareness Decreased Safety Awareness Memory Description No Deficits Noted Gross Range of Motion Lower Extremity ROM Assessment Within Functional Limits Strength Lower Extremity Strength Assessment Within Functional Limits Sensation Assessment Sensation Sensation Description Numbness,Tingling Comments Sensation Comments BLE neuropathies Muscle Tone Muscle Tone WNL Yes M6 PT-IP Treatment Start: 03/06/24 17:03 Freq: NEEDED Status: Active Protocol: Document 03/06/24 16:05 AB (Rec: 03/06/24 17:12 AB [id number]) Physical Therapy Treatment Education Education Provided Safety M7 PT-IP Assessment and Plan Start: 03/06/24 17:03 Freq: NEEDED Status: Active Protocol: Document 03/06/24 16:05 AB (Rec: 03/06/24 17:12 AB [id number]) PT Summary Assessment and Plan Potential Rehabilitation Potential Good Status of Condition at Evaluation Stable Summary Impairments Strength,Coordination,Gait, Activity Tolerance Assessment Summary pt is a 68 y/o M who presented to the ED for altered mental status and pt found to have increase ammonia level. pt is modified independent with bed mobility and SBA for transfers and ambulation using 4WW. pt lives at [facility]. No further PT intervention indicated at this time. Frequency of Treatment Frequency Of Treatment Discharge Treatment Plan Physical Therapy Treatment Plan Transfer Training,Gait Training,Balance Retraining Recommendations To Nursing Amount of Assist Needed Standby Assistance Discharge Recommendations Transportation Needs at Discharge Private Vehicle
[2024-03-06 20:00] VITALS: BP 136/92; PULSE 67; RESP 19; TEMP 36.7; O2SAT 98
[2024-03-06] MEDS: INSULIN GLARGINE 100 UNIT/ML 3ML PEN 10 UNIT SUBCUT (21:14)
[2024-03-07] VITALS: BP 140/88; PULSE 80; RESP 19; TEMP 36.4; O2SAT 96
[2024-03-07 04:00] VITALS: BP 136/74; PULSE 88; RESP 16; TEMP 37; O2SAT 95
[2024-03-07] MEDS: OXYCODONE IR 5 MG TABLET PO (05:43)
--- NOTE | 2024-03-07 07:51 | PM.DS.1 ---
History of Present Illness History of Present Illness Chief complaint: Increased WKN, High Ammonia Levels Narrative: This is a 68 year old male with a history of hyperlipidemia, essential tremor, diabetes mellitus, peripheral neuropathy, peripheral vascular disease, hypertension, depression, sleep apnea and foot ulcers who presents with encephalopathy. He lives in an assisted living situation and apparently was increasingly confused so was brought to the ED. He has a history of nonalcoholic end-stage liver disease with previous episodes of encephalopathy but has been reportedly not using his lactulose as prescribed because of the diarrhea side effect. He is unable to contribute much to the history as far as recent details. Discharge Providers Provider Date of admission: 03/05/24 12:48 Discharge Date: 03/07/24 Primary care physician: BERRY Singletary Consults: 03/06/24 11:00 Consult to Physical Therapy Evaluate & Treat Comment: Physician Instructions: Evaluate and Treat Discharge provider: Jaison Blancas MD Summary Hospital Course Discharge Diagnosis: This is a 68 year old male with a history of hyperlipidemia, diabetes mellitus, peripheral neuropathy, peripheral vascular disease, essential tremor, hypertension, depression, sleep apnea and foot ulcers who presents with encephalopathy. He lives in an assisted living situation and apparently was increasingly confused so was brought to the ED. 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 He has lived at the [facility] for 8 years -resume lactulose 30 g daily along with IV fluid supplementation. -Improved MS with Ammonia of 35 on hospital day 2. Diabetes mellitus type 2 with peripheral neuropathy -high-dose lispro correctional scale and home Lantus dosing. -gabapentin -resume metformin and Ozempic BPH -tamsulosin Hyperlipidemia -resume atorvastatin Essential tremor -primidone Obstructive sleep apnea, chronic, with CPAP Hospital Course: He was admitted after becoming encephalopathic when declining to take his lactulose because of the loose stools. With 2 days of regular lactulose treatment here he returned to normal strength and mentation. He is discharged back to his assisted living facility and requested to not stop taking his lactulose again. Status at Discharge Cognitive/behavioral status at discharge: at baseline, oriented Functional status at discharge: uses cane/walker Overall status at discharge: patient is progressing back to baseline Exam Vital Signs (past 8 hours): - 03/07/24 00:00 03/07/24 04:00 Temperature 97.6 F 98.6 F Pulse Rate 80 88 Respiratory Rate 19 16 Blood Pressure 140/88 136/74 Pulse Oximetry 96 95 Oxygen Flow Rate 0 0 Oxygen Delivery Method Room Air Oxygen Flow Rate 0 Narrative Exam Narrative: Alert and oriented x3. Mentation is back to normal pacing and speech is normal speed. 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 Objective Labs 03/05/24 12:05 03/05/24 17:15 [facility] Medical History History of non-ST elevation myocardial infarction (NSTEMI) AGATHA treated with BiPAP Severe muscle deconditioning Sedentary lifestyle Closed non-physeal fracture of proximal phalanx of great toe with malunion Chronic ulcer of right foot limited to breakdown of skin Insulin dependent diabetes mellitus Peripheral vascular disease Hypertension Depression Toe amputation status Peripheral autonomic neuropathy Sepsis (02/27/17) Cellulitis (02/27/17) Sleep apnea MRSA (methicillin resistant Staphylococcus aureus) (02/27/17) Visit for wound care Essential tremor Thrombocytopenia Morbid obesity Polypharmacy Diabetes Surgical History History of amputation of lesser toe of right foot Family History Father Cancer Congestive heart failure Mother Cancer Social History household members: none Smoking Status: Never smoker alcohol intake: never Discharge Plan Discharge Plan Patient Disposition: Assisted Living Transfer to: [facility] Under care of provider: BERRY Rushing Provider Discharge Comment: Do not skip your Lactulose doses Discharge orders & Medications Discharge Orders: Discharge (Order); Ordered 03/07/24 Ordered By: Jaison Blancas Prescriptions: Continued gabapentin 800 MG tablet 1,200 mg PO TID Qty: 0 Rx Instructions: two tabs (1200mg) 3x a day furosemide 80 MG tablet 40 mg PO BID Qty: 0 Rx Instructions: 40 mg twice a day enalapril maleate 20 MG tablet 20 mg PO Q DAY Qty: 0 multivitamin Capsule 1 cap PO DAILY Rx Instructions: 2 gummys in am vitamin B complex Capsule 1 cap PO DAILY ferrous sulfate 325 mg (65 mg iron) Tablet 325 mg PO BID Rx Instructions: twice a day. every other day primidone 50 mg Tablet 200 tab PO BID Rx Instructions: 200mg two times a day for seizure prevention pantoprazole 40 mg tablet,delayed release (DR/EC) 40 mg PO DAILY Rx Instructions: in am acetaminophen 325 mg Tablet 650 mg PO Q6H PRN (Reason: Fever/Mild Pain (1-3)) Qty: 60 0RF oxycodone 5 mg Tablet 5 mg PO Q6H PRN (Reason: Pain, Moderate (4-6)) Qty: 25 0RF atorvastatin 20 mg tablet 20 mg PO DAILY lactulose 10 gram/15 mL solution 30 ml PO DAILY tamsulosin 0.4 mg capsule 0.4 mg PO DAILY bisacodyl 5 mg tablet,delayed release (DR/EC) 5 mg PO PRN PRN (Reason: Constipation) sennosides [senna] 8.6 mg tablet 17.2 mg PO DAILY oxycodone 10 mg tablet 10 mg PO TID PRN (Reason: Pain (Scale Score 4-6)) Rx Instructions: 1 tab every fours docusate sodium 100 mg Capsule 100 mg PO DAILY fluticasone propionate 50 mcg/actuation spray,suspension 2 spray intranasal DAILY Rx Instructions: 2 spray in both nostrils in evening Ozempic 0.25 mg or 0.5 mg (2 mg/3 mL) pen injector 0.5 mg SUBCUT WEEKLY Patient Comments: [NO ORIGINAL SIG] Rx Instructions: every monday metformin 500 mg 1,000 mg PO BID Rx Instructions: 1000 mg two times a day prednisolone acetate 1 % drops,suspension 1 drp EYE-BOTH DAILY Lantus Solostar U-100 Insulin 100 UNIT/1 ML pen injector 40 units SUBCUT QAM Follow up/Referrals: Barbara Rushing ARNP [Primary Care Provider] - Diet/Activity/Treatments Diet: Regular Liquid consistency: Normal/Thin Food texture: Regular Activity: as tolerated Visit Report/Discharge Packet Stand Alone Forms: Patient Portal/API, Stroke Signs & Symptoms Discharge Data Primary Care Provider: Barbara Rushing Quality VTE Deep Vein Thrombosis/Pulmonary Embolism Present on Admission: No
[2024-03-07 08:00] VITALS: BP 131/70; PULSE 81; RESP 12; TEMP 36.7; O2SAT 98
[2024-03-07] MEDS: INSULIN LISPRO 100 UNIT/ML 3ML VIAL SUBCUT ×2 (08:20→12:06)
[2024-03-07] MEDS: INSULIN GLARGINE 100 UNIT/ML 3ML PEN 40 UNIT SUBCUT (09:15)
[2024-03-07] MEDS: TAMSULOSIN 0.4 MG CAPSULE PO (09:15)
[2024-03-07] MEDS: ENOXAPARIN 40 MG/0.4 ML SYRINGE SUBCUT (09:15)
[2024-03-07] MEDS: FUROSEMIDE 40 MG TABLET PO (09:16)
[2024-03-07] MEDS: PANTOPRAZOLE DR 40 MG TABLET PO (09:16)
[2024-03-07] MEDS: PRIMIDONE 50 MG TABLET 200 MG PO (09:16)
[2024-03-07] MEDS: GABAPENTIN 400 MG CAPSULE 1200 MG PO (09:16)
[2024-03-07 09:26] VITALS: BP 136/74; PULSE 88
[2024-03-07] MEDS: ENALAPRIL 5 MG TABLET 20 MG PO (09:26)
[2024-03-07] MEDS: LACTULOSE 20 GM/30 ML SOLUTION PO (09:26)
[2024-03-07 12:00] VITALS: BP 144/70; PULSE 88; RESP 12; TEMP 36.8; O2SAT 100
--- NOTE | 2024-03-07 13:19 | CM.DPNOTE ---
DC Note Patient has been discharged and will be returning to [facility]. Patient remains agreeable and eager to return home. Updated Molly, Fabric Sourcer at [facility]. Faxed completed and signed med list to F [phone]. Staff members Jai and So plan to pick patient up with a wheelchair at 1400. Bedside RN updated. Plan: Discharge back to [facility] via wheelchair at 1400. OSORIO
--- NOTE | 2024-03-07 14:26 | PC.NURSE ---
1345--pt discharged back to [facility]; [facility] staff brought pt's motorized w/c and assisted pt back to [facility]; written and verbal discharge instructions given to pt and questions answered; verbalized understanding; iv and tele removed; all belongings sent w/ pt
== END 2024-03-07 13:45 | DRG 443 ==
LOC: ED 12:47 → AC 13:17
PROVIDERS: Admitting Provider Family Medicine; Emergency Provider Emergency Medicine; Family Provider Nurse Practitioner Family; PCP Nurse Practitioner Family; Referring Provider Emergency Medicine; Visit Provider Family Medicine
DX: K76.82 Hepatic encephalopathy (principal); E11.42 Type 2 diabetes mellitus with diabetic polyneuropathy; N40.0 Benign prostatic hyperplasia without lower urinary tract symptoms; E78.5 Hyperlipidemia, unspecified; G25.0 Essential tremor; G47.33 Obstructive sleep apnea (adult) (pediatric); K72.10 Chronic hepatic failure without coma; I10 Essential (primary) hypertension; I73.9 Peripheral vascular disease, unspecified; I25.2 Old myocardial infarction; Z91.148 Patient's other noncompliance with medication regimen for other reason; Z79.84 Long term (current) use of oral hypoglycemic drugs; Z79.85 Long-term (current) use of injectable non-insulin antidiabetic drugs
CPT/HCPCS: 36415; 71045; 80053; 82140; 82962; 85025; 93005; 93010; 97161; 97530; 99284; J1650

== ENCOUNTER 2024-03-19 14:30 | Outpatient (RCR) | payer MEDICARE, MEDICAID, SELFPAY ==
[2022-12-29 15:10] VITALS: BMI 39.4
--- NOTE | 2023-12-14 16:26 | PT.OIE ---
Current Diagnoses Muscle weakness (generalized) (12/14/23) Other abnormalities of gait and mobility (12/14/23) Past Medical History (Last Reviewed 01/11/23 @ 17:05 by Vanessa Watts DO) Cellulitis (02/27/17) Chronic ulcer of right foot limited to breakdown of skin Closed non-physeal fracture of proximal phalanx of great toe with malunion Depression Diabetes Essential tremor History of non-ST elevation myocardial infarction (NSTEMI) Hypertension Insulin dependent diabetes mellitus Morbid obesity MRSA (methicillin resistant Staphylococcus aureus) (02/27/17) AGATHA treated with BiPAP Peripheral autonomic neuropathy Peripheral vascular disease Polypharmacy Sedentary lifestyle Sepsis (02/27/17) Severe muscle deconditioning Sleep apnea Thrombocytopenia Toe amputation status Visit for wound care Past Surgical History (Last Reviewed 01/11/23 @ 17:05 by Vanessa Watts DO) History of amputation of lesser toe of right foot Visit Care Team Role Provider Type BERRY Singletary Family Provider Non-Staff Primary Care Provider Specialty: Medical Address: [address] [place] [address], [id number] Email: Rehana Lugo DO Attending Provider Non-Staff Referring Provider Specialty: Psychiatry Address: [address] [place] [address], [id number] Email: Physical Therapy Initial Evaluation PT-OP-A Visit Information Start: 11/28/23 19:07 Freq: Status: Active Protocol: Document 12/14/23 14:36 LRN (Rec: 12/14/23 16:24 LRN [id number]) Out-Patient Physical Therapy Visit Information Visit Information Visit Type Initial Evaluation Visit Note Pt attends in electric wheelchair. Visit Start Time 14:36 Visit Stop Time 15:32 Visit Number 1 Evaluation Information Evaluation Date 12/14/23 Precautions Precautions Diabetes II, neuropathy, Fall history with last 2 in Oct 2023, declared healed chronic ulcer of R foot as of last week. PT-OP-B Current Condition Start: 11/28/23 19:07 Freq: Status: Active Protocol: Document 12/14/23 14:36 LRN (Rec: 12/14/23 16:24 LRN [id number]) Current Condition History of Current Condition Onset Date 09/14/2023 Current Complaints Increased falling episodes History of Current Condition Pt is a resident at [facility] due to chronic diabetic ulcer in R foot. 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 He has had 5-6 falls this year while walking except once he was getting out of bed and reached for walker that was too far away and once in standing was reaching to turn off his airconditioner, another time failed to notice a curb and fell. His last falls was in Oct, fell twice within 2 hrs (using bathroom and getting out of bed) and was sent to ER and found he had high level of amonia. Previous falls was also partly found to be due to neuropathy of feet. He does have an electric wheelchair but is not able to use in his apartment. He has reduced his Primadone for essential tremors and that has been okay. States his wgt is 285#. Treatment Goals Patient/Caregiver Goals Pt goal: See if there is anything he can do to alleviate his potential for falls. Used to use a cane or walking stick, but since he has had more falls, he is using a 4WW. Current Functional Impairments (Reported) Functional Limitations- ADL's Makes own bed and walks around the bed. Functional Limitations- Mobility/Gait Walks around appt but always holds onto something. Doesn't walk around free often, uses 4WW mostly. Can walk to wood cabinetmaker in the morning ~ 10'. Uses walker to walk to upstairs part of appt and down to dining theodore. Not walking up/down hallway because of fear of getting an ulcer in R foot (previously walked in 2.5 minutes). Hasn't had to test his balance, but feels like his balance has been worse, but is better since being treated for high amonia. Personal Factors Other Personal Factors That May Effect Lives at [facility] Therapy/Recovery living. Ambs with 4WW, using electric w/c if having to walk too far. PT-OP-C Subjective Start: 11/28/23 19:07 Freq: Status: Active Protocol: Document 12/14/23 14:36 LRN (Rec: 12/14/23 16:24 LRN [id number]) Patient Questionnaires Other Questionnaire Name and Score Falls Efficacy Scale - score is 32/64 (high) PT-OP-E Functional Tests Start: 11/28/23 19:07 Freq: Status: Active Protocol: Document 12/14/23 14:36 LRN (Rec: 12/14/23 16:24 LRN [id number]) Functional Tests Timed Up and Go (TUG) Score 36 secs Comments Use of W/C for sitting and 4WW for gait, Ulcer boot on R foot. TUG Impairment Rating 100% Impaired (Score 20) PT-OP-G Mobility & Gait Start: 11/28/23 19:07 Freq: Status: Active Protocol: Document 12/14/23 14:36 LRN (Rec: 12/14/23 16:24 LRN [id number]) OP Gait Assessment Assistive Devices Assistive Device 4 Wheeled Walker PT-OP-K Range of Motion Start: 11/28/23 19:07 Freq: Status: Active Protocol: Document 12/14/23 14:36 LRN (Rec: 12/14/23 16:24 LRN [id number]) Ankle and Foot Goniometric Range of Motion Ankle and Foot Right Active Testing Position Sitting Dorsiflexion with Knee Flexed 15 Inversion 10 Eversion 15 Comments Ankle AROM is approximate Left Active Testing Position Sitting Dorsiflexion with Knee Flexed 15 Inversion 10 Eversion 15 Comments Ankle AROM is approximate PT-OP-M Strength Start: 11/28/23 19:07 Freq: Status: Active Protocol: Document 12/14/23 14:36 LRN (Rec: 12/14/23 16:24 LRN [id number]) Knee Strength Knee Manual Muscle Testing Right Comments Strength is 5/5 Left Comments Strength is 5/5 Ankle/Foot Strength Ankle and Foot Manual Muscle Testing Right Comments Strength is 5/5 Left Comments Strength is 5/5 PT-OP-Q Treatments Start: 11/28/23 19:07 Freq: Status: Active Protocol: Document 12/14/23 14:36 LRN (Rec: 12/14/23 16:24 LRN [id number]) Therapeutic Exercises Sitting Exercises Ankle 4 way ex Sitting Exercise Name Active ankle DF/PF/IV/EV Side bilateral Reps/Minutes 2x 2 Self-Care/Home Management Treatment Education Other Education Discussed results of evaluation, goals, treatment, and plan of care (POC) with pt , attendance/cx/dns policy; pt agreeable to evaluation, goals, treatment, attendance/ cx/dns policy and POC. Activities Self-Care/Home Management Activities I/S pt in Ankle 4 way AROM exercise. PT-OP-T Assessment and Plan Start: 11/28/23 19:07 Freq: Status: Active Protocol: Document 12/14/23 14:36 LRN (Rec: 12/14/23 16:24 LRN [id number]) Physical Therapy Assessment Rehab Potential Rehabilitation Potential Good Evaluation Complexity Number of Personal Factors/Comorbidities 3 or More Number of Body Systems Impaired 4 or More Clinical Presentation at Evaluation Evolving Impairments Impairments Activity Tolerance,Balance, Gait,ROM,Transfers Other Impairments Poor LE endurance Goals Two Impairment Decreased function placing pt at risk of falling (TUG 36 secs) Short Term Goal (STG) Pt will demonstrate safe and proper stand<>sit transfer and improved endurance and safety with gait with a 30 Sec STS of 12x or more, using a 4WW, his normal walking shoes, hands across chest. STG Duration 01/05/24 [employer] Goal (LTG) Pt will demonstrate improved balance and safety with gait with TUG score of 30 or less, using a 4WW, his normal walking shoes. LTG Duration 01/12/24 One Impairment Pt lacks appropriate self care HEP. Short Term Goal (STG) Pt will be educated and will demonstrate proper sit<>stand transfers and reaching ability . STG Duration 12/22/23 Penitentiary Goal (LTG) Pt will be independent in an effective self care HEP for core/knee/ankle strengthening and ankle (IV/EV)mobility ex's . LTG Duration 01/12/24 Assessment Summary Assessment Pt is a 68 yo male who has had an increase in falls within the past year, with worsening of falls within the past 3 months, mainly due to misjudgement of reaching and foot placement. Neuropathy of the feet probably exacerbates his ability to bladder changer the placement of his feet on the ground. The pt would like to learn what he can do to decrease his risk of falling and through discussion the decision was for him to be placed on a HEP as soon as possible as he will have to use his electric wheelchair to get to and from PT. The pt will benefit from skilled physical therapy for placement on a self care HEP of LE and core strengthening ex's in the next 3-4 weeks, but may benefit from 6-8 wks of therapy for strengthening and gait if his R foot is cleared ulcers. At this time the pt is agreeable to 3 wks of therapy for placement on a HEP , and at that time will be assessed for the need for further skilled physical therapy. Physical Therapy Plan Frequency and Duration Frequency of Treatment 2x/Week Duration of treatment (weeks) 4 Plan of Care Start Date 12/14/23 Plan of Care End Date 01/12/24 Therapeutic Interventions Therapeutic Interventions Balance Training,Home Exercise Program,Neuromuscular Re- education,Self-Care/Home Management,Therapeutic Activities,Therapeutic Exercises Modalities Cold Pack/Ice Massage Next Visit Focus/Plan Next Note Type Treatment Note Next Visit Plan Test: 30 sec STS and/or 2 min walk test. Review ankle AROM ex and issue HEP of ankle strengthening. POC: Improve ankle AROM and increase LE strength. Decrease risk of falling by improving balance and placing pt on an independent HEP of LE /core strengthening ex's to improve balance.
--- NOTE | 2023-12-19 15:50 | PT.OTN ---
Current Diagnoses Muscle weakness (generalized) (12/19/23) Other abnormalities of gait and mobility (12/19/23) Physical Therapy Treatment Note PT-OP-A Visit Information Start: 11/28/23 19:07 Freq: Status: Active Protocol: Document 12/19/23 14:45 LRN (Rec: 12/19/23 15:49 LRN [id number]) Out-Patient Physical Therapy Visit Information Visit Information Visit Type Treatment Note Visit Note Pt attends with tennis shoes and FWW. Visit Start Time 14:45 Visit Stop Time 15:27 Visit Number Evaluation Information Evaluation Date 12/14/23 Precautions Precautions Diabetes II, neuropathy, Fall history with last 2 in Oct 2023, declared healed chronic ulcer of R foot as of last week. PT-OP-B Current Condition Start: 11/28/23 19:07 Freq: Status: Active Protocol: Document 12/14/23 14:36 LRN (Rec: 12/14/23 16:24 LRN [id number]) Current Condition History of Current Condition Onset Date 09/14/2023 Current Complaints Increased falling episodes History of Current Condition Pt is a resident at [facility] due to chronic diabetic ulcer in R foot. 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 He has had 5-6 falls this year while walking except once he was getting out of bed and reached for walker that was too far away and once in standing was reaching to turn off his airconditioner, another time failed to notice a curb and fell. His last falls was in Oct, fell twice within 2 hrs (using bathroom and getting out of bed) and was sent to ER and found he had high level of amonia. Previous falls was also partly found to be due to neuropathy of feet. He does have an electric wheelchair but is not able to use in his apartment. He has reduced his Primadone for essential tremors and that has been okay. States his wgt is 285#. Treatment Goals Patient/Caregiver Goals Pt goal: See if there is anything he can do to alleviate his potential for falls. Used to use a cane or walking stick, but since he has had more falls, he is using a 4WW. Current Functional Impairments (Reported) Functional Limitations- ADL's Makes own bed and walks around the bed. Functional Limitations- Mobility/Gait Walks around appt but always holds onto something. Doesn't walk around free often, uses 4WW mostly. Can walk to watch dial maker in the morning ~ 10'. Uses walker to walk to upstairs part of appt and down to dining theodore. Not walking up/down hallway because of fear of getting an ulcer in R foot (previously walked in 2.5 minutes). Hasn't had to test his balance, but feels like his balance has been worse, but is better since being treated for high amonia. Personal Factors Other Personal Factors That May Effect Lives at [facility] assisted Therapy/Recovery living. Ambs with 4WW, using electric w/c if having to walk too far. PT-OP-C Subjective Start: 11/28/23 19:07 Freq: Status: Active Protocol: Document 12/19/23 14:45 LRN (Rec: 12/19/23 15:49 LRN [id number]) OP-PT Subjective Patient Comments Patient Comments Pt comes into therapy with shoes (not boot) and 4WW. PT-OP-E Functional Tests Start: 11/28/23 19:07 Freq: Status: Active Protocol: Document 12/19/23 14:45 LRN (Rec: 12/19/23 15:49 LRN [id number]) Functional Tests 2 Minute Walk Test Distance 280.6 ft Device Used 4 WW Comments Gait Belt 30 Second Sit to Stand Test Score 6x Comments Pt not at full stand for 5 reps. Timed Up and Go (TUG) Score 25 secs. Comments 4WW, tennis shoes. TUG Impairment Rating 100% Impaired (Score 20) PT-OP-G Mobility & Gait Start: 11/28/23 19:07 Freq: Status: Active Protocol: Document 12/14/23 14:36 LRN (Rec: 12/14/23 16:24 LRN [id number]) OP Gait Assessment Assistive Devices Assistive Device 4 Wheeled Walker PT-OP-K Range of Motion Start: 11/28/23 19:07 Freq: Status: Active Protocol: Document 12/14/23 14:36 LRN (Rec: 12/14/23 16:24 LRN [id number]) Ankle and Foot Goniometric Range of Motion Ankle and Foot Right Active Testing Position Sitting Dorsiflexion with Knee Flexed 15 Inversion 10 Eversion 15 Comments Ankle AROM is approximate Left Active Testing Position Sitting Dorsiflexion with Knee Flexed 15 Inversion 10 Eversion 15 Comments Ankle AROM is approximate PT-OP-M Strength Start: 11/28/23 19:07 Freq: Status: Active Protocol: Document 12/14/23 14:36 LRN (Rec: 12/14/23 16:24 LRN [id number]) Knee Strength Knee Manual Muscle Testing Right Comments Strength is 5/5 Left Comments Strength is 5/5 Ankle/Foot Strength Ankle and Foot Manual Muscle Testing Right Comments Strength is 5/5 Left Comments Strength is 5/5 PT-OP-Q Treatments Start: 11/28/23 19:07 Freq: Status: Active Protocol: Document 12/19/23 14:45 LRN (Rec: 12/19/23 15:49 LRN [id number]) Therapeutic Exercises Sitting Exercises Sit<>stand Sitting Exercise Name without use of UE assist. Equipment Used Eval room chair and wheelchair Reps/Minutes 10x Ankle [address] way ex Sitting Exercise Name Active ankle DF/PF/IV/EV Side bilateral Equipment Used Pillow between knees for ankle EV. Reps/Minutes 15x 2 Standing Exercises GAstroc/Soleus stretch Standing Exercise Name Gastroc & Soleus stretch Side bilateral Reps/Minutes Each 1-2' Comments Extra time needed to determine position of stretch Other Exercises Gait endurance Equipment Used 4WW, GB Reps/Minutes 10 ft x 2 & 2 minute walk with rest between Self-Care/Home Management Treatment Education Other Education Discussed that pt is to wear boot to protect bottoms of feet if instructed to do so by wound care on his discharge. Activities Self-Care/Home Management Activities Issued & reviewed HEP of long sit ankle DF stretch with strap. Put hold on standing gastroc/soleus stretch. PT-OP-T Assessment and Plan Start: 11/28/23 19:07 Freq: Status: Active Protocol: Document 12/19/23 14:45 LRN (Rec: 12/19/23 15:49 LRN [id number]) Physical Therapy Assessment Goals Two Impairment Decreased function placing pt at risk of falling (TUG 36 secs) Short Term Goal (STG) Pt will demonstrate safe and proper stand<>sit transfer and improved endurance and safety with gait with a 30 Sec STS of 12x or more, using a 4WW, his normal walking shoes, hands across chest. 12/19/23: Pt able to sit<> stand without UE's but has uncontrolled sit. STG Duration 01/05/24 progressed 12/19/23 Penitentiary Goal (LTG) Pt will demonstrate improved balance and safety with gait with TUG score of 30 or less, using a 4WW, his normal walking shoes. LTG Duration 01/12/24 One Impairment Pt lacks appropriate self care HEP. Short Term Goal (STG) Pt will be educated and will demonstrate proper sit<>stand transfers and reaching ability . 12/19/23: Pt able to perform sit<>stand without UE assist. Needs training for stand>sit to control descent. STG Duration 12/22/23 progressed 12/19/23 Ground Source Heat Pump Technician Goal (LTG) Pt will be independent in an effective self care HEP for core/knee/ankle strengthening and ankle (IV/EV)mobility ex's . LTG Duration 01/12/24 Assessment Summary Assessment 30 sec STS - 6 reps; 2 min walk test = 280.6 ft. Pt appears to have good recall of ankle ex's. Pt did not feel much of a stretch with standing gastroc/soleus stretch on the R side, some felt on L side; possibly due to neuropathy of feet? Pt appears to be well WBing with stretch; therefore assessment of PROM needed when not in wbing for safety of ankles. Physical Therapy Plan Frequency and Duration Frequency of Treatment 2x/Week Duration of treatment (weeks) 4 Plan of Care Start Date 12/14/23 Plan of Care End Date 01/12/24 Next Visit Focus/Plan Next Note Type Treatment Note Next Visit Plan Next: Assess NWBing PROM of ankles and standing reach. Add TB ex to ankle strengthening and ssue HEP. Ex: Balance & LE and core strengthening to improve endurance and safety with gait . POC: Improve ankle AROM and increase LE strength. Decrease risk of falling by improving balance and placing pt on an independent HEP of LE /core strengthening ex's to improve balance.
--- NOTE | 2023-12-22 16:33 | PT.OTN ---
Current Diagnoses Muscle weakness (generalized) (12/22/23) Other abnormalities of gait and mobility (12/22/23) Physical Therapy Treatment Note PT-OP-A Visit Information Start: 11/28/23 19:07 Freq: Status: Active Protocol: Document 12/22/23 14:35 TS (Rec: 12/22/23 16:33 TS [id number]) Out-Patient Physical Therapy Visit Information Visit Information Visit Type Treatment Note Visit Note Pt attends with tennis shoes and FWW. Medbritney:[id number] Visit Start Time 14:35 Visit Stop Time 15:20 Visit Number Number of STITCH BONDING MACHINE DRAWER IN Visits 1 PT-OP-B Current Condition Start: 11/28/23 19:07 Freq: Status: Active Protocol: Document 12/14/23 14:36 LRN (Rec: 12/14/23 16:24 LRN [id number]) Current Condition History of Current Condition Onset Date 09/14/2023 Current Complaints Increased falling episodes History of Current Condition Pt is a resident at [facility] due to chronic diabetic ulcer in R foot. 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 He has had 5-6 falls this year while walking except once he was getting out of bed and reached for walker that was too far away and once in standing was reaching to turn off his airconditioner, another time failed to notice a curb and fell. His last falls was in Oct, fell twice within 2 hrs (using bathroom and getting out of bed) and was sent to ER and found he had high level of amonia. Previous falls was also partly found to be due to neuropathy of feet. He does have an electric wheelchair but is not able to use in his apartment. He has reduced his Primadone for essential tremors and that has been okay. States his wgt is 285#. Treatment Goals Patient/Caregiver Goals Pt goal: See if there is anything he can do to alleviate his potential for falls. Used to use a cane or walking stick, but since he has had more falls, he is using a 4WW. Current Functional Impairments (Reported) Functional Limitations- ADL's Makes own bed and walks around the bed. Functional Limitations- Mobility/Gait Walks around appt but always holds onto something. Doesn't walk around free often, uses 4WW mostly. Can walk to tool maker apprentice in the morning ~ 10'. Uses walker to walk to upstairs part of appt and down to dining theodore. Not walking up/down hallway because of fear of getting an ulcer in R foot (previously walked in 2.5 minutes). Hasn't had to test his balance, but feels like his balance has been worse, but is better since being treated for high amonia. Personal Factors Other Personal Factors That May Effect Lives at [facility] assisted Therapy/Recovery living. Ambs with 4WW, using electric w/c if having to walk too far. PT-OP-C Subjective Start: 11/28/23 19:07 Freq: Status: Active Protocol: Document 12/22/23 14:35 TS (Rec: 12/22/23 16:33 TS [id number]) OP-PT Subjective Patient Comments Patient Comments Pt presents with 4WW. Pt goes over long medical history. PT-OP-E Functional Tests Start: 11/28/23 19:07 Freq: Status: Active Protocol: Document 12/19/23 14:45 LRN (Rec: 12/19/23 15:49 LRN [id number]) Functional Tests 2 Minute Walk Test Distance 280.6 ft Device Used 4 WW Comments Gait Belt 30 Second Sit to Stand Test Score 6x Comments Pt not at full stand for 5 reps. Timed Up and Go (TUG) Score 25 secs. Comments 4WW, tennis shoes. TUG Impairment Rating 100% Impaired (Score 20) PT-OP-G Mobility & Gait Start: 11/28/23 19:07 Freq: Status: Active Protocol: Document 12/14/23 14:36 LRN (Rec: 12/14/23 16:24 LRN [id number]) OP Gait Assessment Assistive Devices Assistive Device 4 Wheeled Walker PT-OP-K Range of Motion Start: 11/28/23 19:07 Freq: Status: Active Protocol: Document 12/14/23 14:36 LRN (Rec: 12/14/23 16:24 LRN [id number]) Ankle and Foot Goniometric Range of Motion Ankle and Foot Right Active Testing Position Sitting Dorsiflexion with Knee Flexed 15 Inversion 10 Eversion 15 Comments Ankle AROM is approximate Left Active Testing Position Sitting Dorsiflexion with Knee Flexed 15 Inversion 10 Eversion 15 Comments Ankle AROM is approximate PT-OP-M Strength Start: 11/28/23 19:07 Freq: Status: Active Protocol: Document 12/14/23 14:36 LRN (Rec: 12/14/23 16:24 LRN [id number]) Knee Strength Knee Manual Muscle Testing Right Comments Strength is 5/5 Left Comments Strength is 5/5 Ankle/Foot Strength Ankle and Foot Manual Muscle Testing Right Comments Strength is 5/5 Left Comments Strength is 5/5 PT-OP-Q Treatments Start: 11/28/23 19:07 Freq: Status: Active Protocol: Document 12/22/23 14:35 TS (Rec: 12/22/23 16:33 TS [id number]) Therapeutic Exercises Sitting Exercises Seated ABD Sitting Exercise Name HEP Resistance LVL 3 Reps/Minutes x10 Comments cues for posture Ankle TB Sitting Exercise Name HEP. Ev, df, plantar flex sitting. Inv anchored. Reps/Minutes x10 [address] ex Sitting Exercise Name Active ankle DF/PF/IV/EV Side bilateral Reps/Minutes x10 Gait Training Gait Activity 2 Min walk Device Used 4WW Level of Assistance SBA Distance/Duration 295.5' Treatment Focus 2Min walk test PT-OP-T Assessment and Plan Start: 11/28/23 19:07 Freq: Status: Active Protocol: Document 12/22/23 14:35 TS (Rec: 12/22/23 16:33 TS [id number]) Physical Therapy Assessment Goals Two Impairment Decreased function placing pt at risk of falling (TUG 36 secs) Short Term Goal (STG) Pt will demonstrate safe and proper stand<>sit transfer and improved endurance and safety with gait with a 30 Sec STS of 12x or more, using a 4WW, his normal walking shoes, hands across chest. 12/19/23: Pt able to sit<> stand without UE's but has uncontrolled sit. 12/22/23:7 STS's in 30 secs no UE's. STG Duration 01/05/24 progressed 12/19/23 Fdc Goal (LTG) Pt will demonstrate improved balance and safety with gait with TUG score of 30 or less, using a 4WW, his normal walking shoes. LTG Duration 01/12/24 One Impairment Pt lacks appropriate self care HEP. Short Term Goal (STG) Pt will be educated and will demonstrate proper sit<>stand transfers and reaching ability . 12/19/23: Pt able to perform sit<>stand without UE assist. Needs training for stand>sit to control descent. STG Duration 12/22/23 progressed 12/19/23 Fdc Goal (LTG) Pt will be independent in an effective self care HEP for core/knee/ankle strengthening and ankle (IV/EV)mobility ex's . LTG Duration 01/12/24 Assessment Summary Assessment 30 secs STS 7 reps with no UE support 2min walk test 295.5' with 4WW. Instructed pt in ankle df, ev, inv, and plantar flex with TB for HEP. Pt might have difficulty with setup at home. Seated hip ABD also added to HEP. Physical Therapy Plan Next Visit Focus/Plan Next Note Type Treatment Note Next Visit Plan Next: Assess carryover of TB ankle ex. Ex: Balance & LE and core strengthening to improve endurance and safety with gait .
--- NOTE | 2023-12-22 16:40 | PT.OTN ---
Current Diagnoses Muscle weakness (generalized) (12/22/23) Other abnormalities of gait and mobility (12/22/23) Physical Therapy Treatment Note PT-OP-A Visit Information Start: 11/28/23 19:07 Freq: Status: Active Protocol: Document 12/22/23 14:35 TS (Rec: 12/22/23 16:33 TS [id number]) Out-Patient Physical Therapy Visit Information Visit Information Visit Type Treatment Note Visit Note Pt attends with tennis shoes and FWW. Medbritney:[id number] Visit Start Time 14:35 Visit Stop Time 15:20 Visit Number Number of CENTRIFUGAL OPERATOR Visits 1 PT-OP-B Current Condition Start: 11/28/23 19:07 Freq: Status: Active Protocol: Document 12/14/23 14:36 LRN (Rec: 12/14/23 16:24 LRN [id number]) Current Condition History of Current Condition Onset Date 09/14/2023 Current Complaints Increased falling episodes History of Current Condition Pt is a resident at [facility] due to chronic diabetic ulcer in R foot. 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 He has had 5-6 falls this year while walking except once he was getting out of bed and reached for walker that was too far away and once in standing was reaching to turn off his airconditioner, another time failed to notice a curb and fell. His last falls was in Oct, fell twice within 2 hrs (using bathroom and getting out of bed) and was sent to ER and found he had high level of amonia. Previous falls was also partly found to be due to neuropathy of feet. He does have an electric wheelchair but is not able to use in his apartment. He has reduced his Primadone for essential tremors and that has been okay. States his wgt is 285#. Treatment Goals Patient/Caregiver Goals Pt goal: See if there is anything he can do to alleviate his potential for falls. Used to use a cane or walking stick, but since he has had more falls, he is using a 4WW. Current Functional Impairments (Reported) Functional Limitations- ADL's Makes own bed and walks around the bed. Functional Limitations- Mobility/Gait Walks around appt but always holds onto something. Doesn't walk around free often, uses 4WW mostly. Can walk to puppet maker in the morning ~ 10'. Uses walker to walk to upstairs part of appt and down to dining theodore. Not walking up/down hallway because of fear of getting an ulcer in R foot (previously walked in 2.5 minutes). Hasn't had to test his balance, but feels like his balance has been worse, but is better since being treated for high amonia. Personal Factors Other Personal Factors That May Effect Lives at [facility] assisted Therapy/Recovery living. Ambs with 4WW, using electric w/c if having to walk too far. PT-OP-C Subjective Start: 11/28/23 19:07 Freq: Status: Active Protocol: Document 12/22/23 14:35 TS (Rec: 12/22/23 16:33 TS [id number]) OP-PT Subjective Patient Comments Patient Comments Pt presents with 4WW. Pt goes over long medical history. PT-OP-E Functional Tests Start: 11/28/23 19:07 Freq: Status: Active Protocol: Document 12/19/23 14:45 LRN (Rec: 12/19/23 15:49 LRN [id number]) Functional Tests 2 Minute Walk Test Distance 280.6 ft Device Used 4 WW Comments Gait Belt 30 Second Sit to Stand Test Score 6x Comments Pt not at full stand for 5 reps. Timed Up and Go (TUG) Score 25 secs. Comments 4WW, tennis shoes. TUG Impairment Rating 100% Impaired (Score 20) PT-OP-G Mobility & Gait Start: 11/28/23 19:07 Freq: Status: Active Protocol: Document 12/14/23 14:36 LRN (Rec: 12/14/23 16:24 LRN [id number]) OP Gait Assessment Assistive Devices Assistive Device 4 Wheeled Walker PT-OP-K Range of Motion Start: 11/28/23 19:07 Freq: Status: Active Protocol: Document 12/14/23 14:36 LRN (Rec: 12/14/23 16:24 LRN [id number]) Ankle and Foot Goniometric Range of Motion Ankle and Foot Right Active Testing Position Sitting Dorsiflexion with Knee Flexed 15 Inversion 10 Eversion 15 Comments Ankle AROM is approximate Left Active Testing Position Sitting Dorsiflexion with Knee Flexed 15 Inversion 10 Eversion 15 Comments Ankle AROM is approximate PT-OP-M Strength Start: 11/28/23 19:07 Freq: Status: Active Protocol: Document 12/14/23 14:36 LRN (Rec: 12/14/23 16:24 LRN [id number]) Knee Strength Knee Manual Muscle Testing Right Comments Strength is 5/5 Left Comments Strength is 5/5 Ankle/Foot Strength Ankle and Foot Manual Muscle Testing Right Comments Strength is 5/5 Left Comments Strength is 5/5 PT-OP-Q Treatments Start: 11/28/23 19:07 Freq: Status: Active Protocol: Document 12/22/23 14:35 TS (Rec: 12/22/23 16:33 TS [id number]) Therapeutic Exercises Sitting Exercises Seated ABD Sitting Exercise Name HEP Resistance LVL 3 Reps/Minutes x10 Comments cues for posture Ankle TB Sitting Exercise Name HEP. Ev, df, plantar flex sitting. Inv anchored. Reps/Minutes x10 [address] ex Sitting Exercise Name Active ankle DF/PF/IV/EV Side bilateral Reps/Minutes x10 Gait Training Gait Activity 2 Min walk Device Used 4WW Level of Assistance SBA Distance/Duration 295.5' Treatment Focus 2Min walk test PT-OP-T Assessment and Plan Start: 11/28/23 19:07 Freq: Status: Active Protocol: Document 12/22/23 14:35 TS (Rec: 12/22/23 16:33 TS [id number]) Physical Therapy Assessment Goals Two Impairment Decreased function placing pt at risk of falling (TUG 36 secs) Short Term Goal (STG) Pt will demonstrate safe and proper stand<>sit transfer and improved endurance and safety with gait with a 30 Sec STS of 12x or more, using a 4WW, his normal walking shoes, hands across chest. 12/19/23: Pt able to sit<> stand without UE's but has uncontrolled sit. 12/22/23:7 STS's in 30 secs no UE's. STG Duration 01/05/24 progressed 12/19/23 Assisted Goal (LTG) Pt will demonstrate improved balance and safety with gait with TUG score of 30 or less, using a 4WW, his normal walking shoes. LTG Duration 01/12/24 One Impairment Pt lacks appropriate self care HEP. Short Term Goal (STG) Pt will be educated and will demonstrate proper sit<>stand transfers and reaching ability . 12/19/23: Pt able to perform sit<>stand without UE assist. Needs training for stand>sit to control descent. STG Duration 12/22/23 progressed 12/19/23 Assisted Goal (LTG) Pt will be independent in an effective self care HEP for core/knee/ankle strengthening and ankle (IV/EV)mobility ex's . LTG Duration 01/12/24 Assessment Summary Assessment 30 secs STS 7 reps with no UE support 2min walk test 295.5' with 4WW. Instructed pt in ankle df, ev, inv, and plantar flex with TB for HEP. Pt might have difficulty with setup at home. Seated hip ABD also added to HEP. Physical Therapy Plan Next Visit Focus/Plan Next Note Type Treatment Note Next Visit Plan Next: Assess carryover of TB ankle ex. Ex: Balance & LE and core strengthening to improve endurance and safety with gait .
--- NOTE | 2023-12-26 14:33 | PT.OTN ---
Current Diagnoses Muscle weakness (generalized) (12/26/23) Other abnormalities of gait and mobility (12/26/23) Physical Therapy Treatment Note PT-OP-A Visit Information Start: 11/28/23 19:07 Freq: Status: Active Protocol: Document 12/26/23 14:32 TS (Rec: 12/26/23 15:28 TS [id number]) Out-Patient Physical Therapy Visit Information Visit Information Visit Type Treatment Note Visit Note Pt attends with tennis shoes and FWW. Medbritney:[id number] Visit Start Time 14:33 Visit Stop Time 15:15 Visit Number Number of TESTER ELECTRONIC SCALE Visits 2 PT-OP-B Current Condition Start: 11/28/23 19:07 Freq: Status: Active Protocol: Document 12/14/23 14:36 LRN (Rec: 12/14/23 16:24 LRN [id number]) Current Condition History of Current Condition Onset Date 09/14/2023 Current Complaints Increased falling episodes History of Current Condition Pt is a resident at [facility] due to chronic diabetic ulcer in R foot. 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 He has had 5-6 falls this year while walking except once he was getting out of bed and reached for walker that was too far away and once in standing was reaching to turn off his airconditioner, another time failed to notice a curb and fell. His last falls was in Oct, fell twice within 2 hrs (using bathroom and getting out of bed) and was sent to ER and found he had high level of amonia. Previous falls was also partly found to be due to neuropathy of feet. He does have an electric wheelchair but is not able to use in his apartment. He has reduced his Primadone for essential tremors and that has been okay. States his wgt is 285#. Treatment Goals Patient/Caregiver Goals Pt goal: See if there is anything he can do to alleviate his potential for falls. Used to use a cane or walking stick, but since he has had more falls, he is using a 4WW. Current Functional Impairments (Reported) Functional Limitations- ADL's Makes own bed and walks around the bed. Functional Limitations- Mobility/Gait Walks around appt but always holds onto something. Doesn't walk around free often, uses 4WW mostly. Can walk to model maker scale in the morning ~ 10'. Uses walker to walk to upstairs part of appt and down to dining theodore. Not walking up/down hallway because of fear of getting an ulcer in R foot (previously walked in 2.5 minutes). Hasn't had to test his balance, but feels like his balance has been worse, but is better since being treated for high amonia. Personal Factors Other Personal Factors That May Effect Lives at [facility] assisted Therapy/Recovery living. Ambs with 4WW, using electric w/c if having to walk too far. PT-OP-C Subjective Start: 11/28/23 19:07 Freq: Status: Active Protocol: Document 12/26/23 14:32 TS (Rec: 12/26/23 15:28 TS [id number]) OP-PT Subjective Patient Comments Patient Comments Pt reports LBP today, is not as bad as it was yesterday. Reports doing his HEP, does not have any questions on any of the exercises at this time. PT-OP-E Functional Tests Start: 11/28/23 19:07 Freq: Status: Active Protocol: Document 12/19/23 14:45 LRN (Rec: 12/19/23 15:49 LRN [id number]) Functional Tests 2 Minute Walk Test Distance 280.6 ft Device Used 4 WW Comments Gait Belt 30 Second Sit to Stand Test Score 6x Comments Pt not at full stand for 5 reps. Timed Up and Go (TUG) Score 25 secs. Comments 4WW, tennis shoes. TUG Impairment Rating 100% Impaired (Score 20) PT-OP-G Mobility & Gait Start: 11/28/23 19:07 Freq: Status: Active Protocol: Document 12/14/23 14:36 LRN (Rec: 12/14/23 16:24 LRN [id number]) OP Gait Assessment Assistive Devices Assistive Device 4 Wheeled Walker PT-OP-K Range of Motion Start: 11/28/23 19:07 Freq: Status: Active Protocol: Document 12/14/23 14:36 LRN (Rec: 12/14/23 16:24 LRN [id number]) Ankle and Foot Goniometric Range of Motion Ankle and Foot Right Active Testing Position Sitting Dorsiflexion with Knee Flexed 15 Inversion 10 Eversion 15 Comments Ankle AROM is approximate Left Active Testing Position Sitting Dorsiflexion with Knee Flexed 15 Inversion 10 Eversion 15 Comments Ankle AROM is approximate PT-OP-M Strength Start: 11/28/23 19:07 Freq: Status: Active Protocol: Document 12/14/23 14:36 LRN (Rec: 12/14/23 16:24 LRN [id number]) Knee Strength Knee Manual Muscle Testing Right Comments Strength is 5/5 Left Comments Strength is 5/5 Ankle/Foot Strength Ankle and Foot Manual Muscle Testing Right Comments Strength is 5/5 Left Comments Strength is 5/5 PT-OP-Q Treatments Start: 11/28/23 19:07 Freq: Status: Active Protocol: Document 12/26/23 14:32 TS (Rec: 12/26/23 15:28 TS [id number]) Therapeutic Exercises Sitting Exercises Adduction Sitting Exercise Name Ball squeeze Reps/Minutes x10 LAQ Sitting Exercise Name w/ ankle weight 5LBS Comments denies discomfort in low back Seated ABD Sitting Exercise Name HEP Resistance LVL 3 Reps/Minutes x10 Comments cues for posture Ankle TB Sitting Exercise Name HEP. Ev, df, plantar flex sitting. Inv anchored. Reps/Minutes x10 PT-OP-T Assessment and Plan Start: 11/28/23 19:07 Freq: Status: Active Protocol: Document 12/26/23 14:32 TS (Rec: 12/26/23 15:28 TS [id number]) Physical Therapy Assessment Goals Two Impairment Decreased function placing pt at risk of falling (TUG 36 secs) Short Term Goal (STG) Pt will demonstrate safe and proper stand<>sit transfer and improved endurance and safety with gait with a 30 Sec STS of 12x or more, using a 4WW, his normal walking shoes, hands across chest. 12/19/23: Pt able to sit<> stand without UE's but has uncontrolled sit. 12/22/23:7 STS's in 30 secs no UE's. STG Duration 01/05/24 progressed 12/19/23 Chcf Goal (LTG) Pt will demonstrate improved balance and safety with gait with TUG score of 30 or less, using a 4WW, his normal walking shoes. LTG Duration 01/12/24 One Impairment Pt lacks appropriate self care HEP. Short Term Goal (STG) Pt will be educated and will demonstrate proper sit<>stand transfers and reaching ability . 12/19/23: Pt able to perform sit<>stand without UE assist. Needs training for stand>sit to control descent. STG Duration 12/22/23 progressed 12/19/23 Chcf Goal (LTG) Pt will be independent in an effective self care HEP for core/knee/ankle strengthening and ankle (IV/EV)mobility ex's . LTG Duration 01/12/24 Assessment Summary Assessment Pt is limited this session by LBP. He denied LBP during seated LE exercises but has increasing pain with STS. He required ModA to stand from chair at end of session. Demonstrates carryover of his ankle TB exercises. Physical Therapy Plan Next Visit Focus/Plan Next Note Type Treatment Note Next Visit Plan Next: Assess HEP again and LBP . Continue seated ther-ex. Ex: Balance & LE and core strengthening to improve endurance and safety with gait .
--- NOTE | 2023-12-28 15:40 | PT.OTN ---
Current Diagnoses Muscle weakness (generalized) (12/28/23) Other abnormalities of gait and mobility (12/28/23) Physical Therapy Treatment Note PT-OP-A Visit Information Start: 11/28/23 19:07 Freq: Status: Active Protocol: Document 12/28/23 14:38 LRN (Rec: 12/28/23 14:45 LRN [id number]) Out-Patient Physical Therapy Visit Information Visit Information Visit Type Treatment Note Visit Note Pt attends with tennis shoes and FWW. Visit Start Time 14:38 Visit Stop Time 03:18 Visit Number 5 Evaluation Information Evaluation Date 12/14/23 Precautions Precautions Callous on R 1st Metatarsal, ending wound care treatment 2 wks from 12/28/23. Diabetes II , neuropathy, Fall history with last 2 in Oct 2023, declared healed chronic ulcer of R foot as of last week. PT-OP-B Current Condition Start: 11/28/23 19:07 Freq: Status: Active Protocol: Document 12/14/23 14:36 LRN (Rec: 12/14/23 16:24 LRN [id number]) Current Condition History of Current Condition Onset Date 09/14/2023 Current Complaints Increased falling episodes History of Current Condition Pt is a resident at [facility] due to chronic diabetic ulcer in R foot. 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 He has had 5-6 falls this year while walking except once he was getting out of bed and reached for walker that was too far away and once in standing was reaching to turn off his airconditioner, another time failed to notice a curb and fell. His last falls was in Oct, fell twice within 2 hrs (using bathroom and getting out of bed) and was sent to ER and found he had high level of amonia. Previous falls was also partly found to be due to neuropathy of feet. He does have an electric wheelchair but is not able to use in his apartment. He has reduced his Primadone for essential tremors and that has been okay. States his wgt is 285#. Treatment Goals Patient/Caregiver Goals Pt goal: See if there is anything he can do to alleviate his potential for falls. Used to use a cane or walking stick, but since he has had more falls, he is using a 4WW. Current Functional Impairments (Reported) Functional Limitations- ADL's Makes own bed and walks around the bed. Functional Limitations- Mobility/Gait Walks around appt but always holds onto something. Doesn't walk around free often, uses 4WW mostly. Can walk to tape maker in the morning ~ 10'. Uses walker to walk to upstairs part of appt and down to dining theodore. Not walking up/down hallway because of fear of getting an ulcer in R foot (previously walked in 2.5 minutes). Hasn't had to test his balance, but feels like his balance has been worse, but is better since being treated for high amonia. Personal Factors Other Personal Factors That May Effect Lives at [facility] assisted Therapy/Recovery living. Ambs with 4WW, using electric w/c if having to walk too far. PT-OP-C Subjective Start: 11/28/23 19:07 Freq: Status: Active Protocol: Document 12/28/23 14:38 LRN (Rec: 12/28/23 14:45 LRN [id number]) OP-PT Subjective Patient Comments Patient Comments LBP has improved. States he is walking up/down the hallway . Hasn't had anymore foot problems. PT-OP-E Functional Tests Start: 11/28/23 19:07 Freq: Status: Active Protocol: Document 12/19/23 14:45 LRN (Rec: 12/19/23 15:49 LRN [id number]) Functional Tests 2 Minute Walk Test Distance 280.6 ft Device Used 4 WW Comments Gait Belt 30 Second Sit to Stand Test Score 6x Comments Pt not at full stand for 5 reps. Timed Up and Go (TUG) Score 25 secs. Comments 4WW, tennis shoes. TUG Impairment Rating 100% Impaired (Score 20) PT-OP-G Mobility & Gait Start: 11/28/23 19:07 Freq: Status: Active Protocol: Document 12/14/23 14:36 LRN (Rec: 12/14/23 16:24 LRN [id number]) OP Gait Assessment Assistive Devices Assistive Device 4 Wheeled Walker PT-OP-K Range of Motion Start: 11/28/23 19:07 Freq: Status: Active Protocol: Document 12/28/23 14:38 LRN (Rec: 12/28/23 14:52 LRN [id number]) Ankle and Foot Goniometric Range of Motion Ankle and Foot Right Active Testing Position Supine Dorsiflexion with Knee Extended 2 Plantarflexion 45 Inversion 20 Eversion 10 Left Active Testing Position Supine Dorsiflexion with Knee Extended 3 Plantarflexion 40 Inversion 22 Eversion 15 PT-OP-M Strength Start: 11/28/23 19:07 Freq: Status: Active Protocol: Document 12/14/23 14:36 LRN (Rec: 12/14/23 16:24 LRN [id number]) Knee Strength Knee Manual Muscle Testing Right Comments Strength is 5/5 Left Comments Strength is 5/5 Ankle/Foot Strength Ankle and Foot Manual Muscle Testing Right Comments Strength is 5/5 Left Comments Strength is 5/5 PT-OP-Q Treatments Start: 11/28/23 19:07 Freq: Status: Active Protocol: Document 12/28/23 14:38 LRN (Rec: 12/28/23 14:45 LRN [id number]) Therapeutic Exercises Supine Exercises Ankle PROM DF/PF Supine Exercise Name Manual stretch into PF/DF Side bilateral Reps/Minutes 10 SH x 8 each Comments Pt had trouble relaxing as he was not sure what direction feet moved Ankle AROM Supine Exercise Name DF/PF/IV/EV Comments s/p ex: AROM (in deg's): DF 4 R, 4 L , PF 34 R, 40 L. Manual Therapy Treatment Consent Patient gave verbal consent for manual Yes treatment Soft Tissue Mobilization Ankle DF's & PF's Body Location Abdi ankle DF's & PF's Mobilization Type Other Intensity/Depth Moderate Body Position Supine Comments SYMONE (myokinesthetic) STM. DF improved 1-2 deg's, no change with PF. Neuro Re-Education Treatment Balance Activities Standing Reach balance Details Standing reach with R hand for balance Surface LEvel Equipment GB, Rail Reps/Duration 8' Self-Care/Home Management Treatment Activities Self-Care/Home Management Activities LEFS score PT-OP-T Assessment and Plan Start: 11/28/23 19:07 Freq: Status: Active Protocol: Document 12/28/23 14:38 LRN (Rec: 12/28/23 14:45 LRN [id number]) Physical Therapy Assessment Rehab Potential Rehabilitation Potential Good Evaluation Complexity Number of Personal Factors/Comorbidities 3 or More Number of Body Systems Impaired 4 or More Clinical Presentation at Evaluation Evolving Impairments Impairments Activity Tolerance,Balance, Gait,ROM,Strength Other Impairments Poor LE endurance and strength ; decreased ankle mobility Goals Two Impairment Decreased function placing pt at risk of falling (TUG 36 secs) Short Term Goal (STG) Pt will demonstrate safe and proper stand<>sit transfer and improved endurance and safety with gait with a 30 Sec STS of 12x or more, using a 4WW, his normal walking shoes, hands across chest. 12/19/23: Pt able to sit<> stand without UE's but has uncontrolled sit. 12/22/23:7 STS's in 30 secs no UE's. 12/28/23: Walking up/down the hallway several times a week. STG Duration 01/05/24 progressed 12/19/23 Care Home Goal (LTG) Pt will demonstrate improved balance and safety with gait with TUG score of 30 or less, using a 4WW, his normal walking shoes. LTG Duration 01/12/24 One Impairment Pt lacks appropriate self care HEP. Short Term Goal (STG) Pt will be educated and will demonstrate proper sit<>stand transfers and reaching ability . 12/19/23: Pt able to perform sit<>stand without UE assist. Needs training for stand>sit to control descent. 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 LTG Duration 01/12/24 Assessment Summary Assessment Pt reporting less LBP; therefore held special testing until next time pt having LBP . Active ankle IV/EV is greater w/R foot, PF/DF is greater w/L foot, . Physical Therapy Plan Frequency and Duration Frequency of Treatment 2x/Week Duration of treatment (weeks) 4 Plan of Care Start Date 12/14/23 Plan of Care End Date 01/12/24 Therapeutic Interventions Therapeutic Interventions Balance Training,Home Exercise Program,Neuromuscular Re- education,Self-Care/Home Management,Therapeutic Activities,Therapeutic Exercises Modalities Cold Pack/Ice Massage Next Visit Focus/Plan Next Note Type Treatment Note Next Visit Plan Next: PN for new POC. Assess HEP again and LB special testing if increase in LBP (LE neural check). Continue seated ther-ex, and standing ankle DF ROM. Ex: Balance & ankle, knee, hip, core strengthening to improve endurance and safety with gait .
--- NOTE | 2023-12-28 15:42 | PT.OTN ---
Current Diagnoses Muscle weakness (generalized) (12/28/23) Other abnormalities of gait and mobility (12/28/23) Physical Therapy Treatment Note PT-OP-A Visit Information Start: 11/28/23 19:07 Freq: Status: Active Protocol: Document 12/28/23 14:38 LRN (Rec: 12/28/23 14:45 LRN [id number]) Out-Patient Physical Therapy Visit Information Visit Information Visit Type Treatment Note Visit Note Pt attends with tennis shoes and FWW. Visit Start Time 14:38 Visit Stop Time 03:18 Visit Number 5 Evaluation Information Evaluation Date 12/14/23 Precautions Precautions Callous on R 1st Metatarsal, ending wound care treatment 2 wks from 12/28/23. Diabetes II , neuropathy, Fall history with last 2 in Oct 2023, declared healed chronic ulcer of R foot as of last week. PT-OP-B Current Condition Start: 11/28/23 19:07 Freq: Status: Active Protocol: Document 12/14/23 14:36 LRN (Rec: 12/14/23 16:24 LRN [id number]) Current Condition History of Current Condition Onset Date 09/14/2023 Current Complaints Increased falling episodes History of Current Condition Pt is a resident at [facility] due to chronic diabetic ulcer in R foot. 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 He has had 5-6 falls this year while walking except once he was getting out of bed and reached for walker that was too far away and once in standing was reaching to turn off his airconditioner, another time failed to notice a curb and fell. His last falls was in Oct, fell twice within 2 hrs (using bathroom and getting out of bed) and was sent to ER and found he had high level of amonia. Previous falls was also partly found to be due to neuropathy of feet. He does have an electric wheelchair but is not able to use in his apartment. He has reduced his Primadone for essential tremors and that has been okay. States his wgt is 285#. Treatment Goals Patient/Caregiver Goals Pt goal: See if there is anything he can do to alleviate his potential for falls. Used to use a cane or walking stick, but since he has had more falls, he is using a 4WW. Current Functional Impairments (Reported) Functional Limitations- ADL's Makes own bed and walks around the bed. Functional Limitations- Mobility/Gait Walks around appt but always holds onto something. Doesn't walk around free often, uses 4WW mostly. Can walk to shell maker lockstitch in the morning ~ 10'. Uses walker to walk to upstairs part of appt and down to dining theodore. Not walking up/down hallway because of fear of getting an ulcer in R foot (previously walked in 2.5 minutes). Hasn't had to test his balance, but feels like his balance has been worse, but is better since being treated for high amonia. Personal Factors Other Personal Factors That May Effect Lives at [facility] assisted Therapy/Recovery living. Ambs with 4WW, using electric w/c if having to walk too far. PT-OP-C Subjective Start: 11/28/23 19:07 Freq: Status: Active Protocol: Document 12/28/23 14:38 LRN (Rec: 12/28/23 14:45 LRN [id number]) OP-PT Subjective Patient Comments Patient Comments LBP has improved. States he is walking up/down the hallway . Hasn't had anymore foot problems. Patient Questionnaires Lower Extremity Functional Scale LEFS Score 26 LEFS Impairment 60 to 79% Impaired (Score 17- 31) PT-OP-E Functional Tests Start: 11/28/23 19:07 Freq: Status: Active Protocol: Document 12/19/23 14:45 LRN (Rec: 12/19/23 15:49 LRN [id number]) Functional Tests 2 Minute Walk Test Distance 280.6 ft Device Used 4 WW Comments Gait Belt 30 Second Sit to Stand Test Score 6x Comments Pt not at full stand for 5 reps. Timed Up and Go (TUG) Score 25 secs. Comments 4WW, tennis shoes. TUG Impairment Rating 100% Impaired (Score 20) PT-OP-G Mobility & Gait Start: 11/28/23 19:07 Freq: Status: Active Protocol: Document 12/14/23 14:36 LRN (Rec: 12/14/23 16:24 LRN [id number]) OP Gait Assessment Assistive Devices Assistive Device 4 Wheeled Walker PT-OP-K Range of Motion Start: 11/28/23 19:07 Freq: Status: Active Protocol: Document 12/28/23 14:38 LRN (Rec: 12/28/23 14:52 LRN [id number]) Ankle and Foot Goniometric Range of Motion Ankle and Foot Right Active Testing Position Supine Dorsiflexion with Knee Extended 2 Plantarflexion 45 Inversion 20 Eversion 10 Left Active Testing Position Supine Dorsiflexion with Knee Extended 3 Plantarflexion 40 Inversion 22 Eversion 15 PT-OP-M Strength Start: 11/28/23 19:07 Freq: Status: Active Protocol: Document 12/14/23 14:36 LRN (Rec: 12/14/23 16:24 LRN [id number]) Knee Strength Knee Manual Muscle Testing Right Comments Strength is 5/5 Left Comments Strength is 5/5 Ankle/Foot Strength Ankle and Foot Manual Muscle Testing Right Comments Strength is 5/5 Left Comments Strength is 5/5 PT-OP-Q Treatments Start: 11/28/23 19:07 Freq: Status: Active Protocol: Document 12/28/23 14:38 LRN (Rec: 12/28/23 14:45 LRN [id number]) Therapeutic Exercises Supine Exercises Ankle PROM DF/PF Supine Exercise Name Manual stretch into PF/DF Side bilateral Reps/Minutes 10 SH x 8 each Comments Pt had trouble relaxing as he was not sure what direction feet moved Ankle AROM Supine Exercise Name DF/PF/IV/EV Comments s/p ex: AROM (in deg's): DF 4 R, 4 L , PF 34 R, 40 L. Manual Therapy Treatment Consent Patient gave verbal consent for manual Yes treatment Soft Tissue Mobilization Ankle DF's & PF's Body Location Abdi ankle DF's & PF's Mobilization Type Other Intensity/Depth Moderate Body Position Supine Comments SYMONE (myokinesthetic) STM. DF improved 1-2 deg's, no change with PF. Neuro Re-Education Treatment Balance Activities Standing Reach balance Details Standing reach with R hand for balance Surface LEvel Equipment GB, Rail Reps/Duration 8' Self-Care/Home Management Treatment Activities Self-Care/Home Management Activities LEFS score PT-OP-T Assessment and Plan Start: 11/28/23 19:07 Freq: Status: Active Protocol: Document 12/28/23 14:38 LRN (Rec: 12/28/23 14:45 LRN [id number]) Physical Therapy Assessment Rehab Potential Rehabilitation Potential Good Evaluation Complexity Number of Personal Factors/Comorbidities 3 or More Number of Body Systems Impaired 4 or More Clinical Presentation at Evaluation Evolving Impairments Impairments Activity Tolerance,Balance, Gait,ROM,Strength Other Impairments Poor LE endurance and strength ; decreased ankle mobility Goals Two Impairment Decreased function placing pt at risk of falling (TUG 36 secs) Short Term Goal (STG) Pt will demonstrate safe and proper stand<>sit transfer and improved endurance and safety with gait with a 30 Sec STS of 12x or more, using a 4WW, his normal walking shoes, hands across chest. 12/19/23: Pt able to sit<> stand without UE's but has uncontrolled sit. 12/22/23:7 STS's in 30 secs no UE's. 12/28/23: Walking up/down the hallway several times a week. STG Duration 01/05/24 progressed 12/19/23 Roll Carrier Goal (LTG) Pt will demonstrate improved balance and safety with gait with TUG score of 30 or less, using a 4WW, his normal walking shoes. LTG Duration 01/12/24 One Impairment Pt lacks appropriate self care HEP. Short Term Goal (STG) Pt will be educated and will demonstrate proper sit<>stand transfers and reaching ability . 12/19/23: Pt able to perform sit<>stand without UE assist. Needs training for stand>sit to control descent. STG Duration 12/22/23 progressed 12/19/23 Roll Carrier Goal (LTG) Pt will be independent in an effective self care HEP for core/knee/ankle strengthening and ankle (IV/EV)mobility ex's . LTG Duration 01/12/24 Assessment Summary Assessment Pt reporting less LBP; therefore held special testing until next time pt having LBP . Active ankle IV/EV is greater w/R foot, PF/DF is greater w/L foot, . Physical Therapy Plan Frequency and Duration Frequency of Treatment 2x/Week Duration of treatment (weeks) 4 Plan of Care Start Date 12/14/23 Plan of Care End Date 01/12/24 Therapeutic Interventions Therapeutic Interventions Balance Training,Home Exercise Program,Neuromuscular Re- education,Self-Care/Home Management,Therapeutic Activities,Therapeutic Exercises Modalities Cold Pack/Ice Massage Next Visit Focus/Plan Next Note Type Treatment Note Next Visit Plan Next: PN for new POC. Assess HEP again and LB special testing if increase in LBP (LE neural check). Continue seated ther-ex, and standing ankle DF ROM. Ex: Balance & ankle, knee, hip, core strengthening to improve endurance and safety with gait .
--- NOTE | 2024-01-05 19:10 | PT.OTN ---
Current Diagnoses Muscle weakness (generalized) (01/05/24) Other abnormalities of gait and mobility (01/05/24) Physical Therapy Treatment Note PT-OP-A Visit Information Start: 11/28/23 19:07 Freq: Status: Active Protocol: Document 01/05/24 09:07 LRN (Rec: 01/05/24 09:51 LRN [id number]) Out-Patient Physical Therapy Visit Information Visit Information Visit Type Progress Note Visit Note Pt attends with tennis shoes and 4WW. Visit Start Time 09:07 Visit Stop Time 09:51 Visit Number Evaluation Information Evaluation Date 12/14/23 Precautions Precautions Callous on R 1st Metatarsal, ending wound care treatment 2 wks from 12/28/23. Diabetes II , neuropathy, Fall history with last 2 in Oct 2023, declared healed chronic ulcer of R foot as of last week. PT-OP-B Current Condition Start: 11/28/23 19:07 Freq: Status: Active Protocol: Document 12/14/23 14:36 LRN (Rec: 12/14/23 16:24 LRN [id number]) Current Condition History of Current Condition Onset Date 09/14/2023 Current Complaints Increased falling episodes History of Current Condition Pt is a resident at [facility] due to chronic diabetic ulcer in R foot. 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 He has had 5-6 falls this year while walking except once he was getting out of bed and reached for walker that was too far away and once in standing was reaching to turn off his airconditioner, another time failed to notice a curb and fell. His last falls was in Oct, fell twice within 2 hrs (using bathroom and getting out of bed) and was sent to ER and found he had high level of amonia. Previous falls was also partly found to be due to neuropathy of feet. He does have an electric wheelchair but is not able to use in his apartment. He has reduced his Primadone for essential tremors and that has been okay. States his wgt is 285#. Treatment Goals Patient/Caregiver Goals Pt goal: See if there is anything he can do to alleviate his potential for falls. Used to use a cane or walking stick, but since he has had more falls, he is using a 4WW. Current Functional Impairments (Reported) Functional Limitations- ADL's Makes own bed and walks around the bed. Functional Limitations- Mobility/Gait Walks around appt but always holds onto something. Doesn't walk around free often, uses 4WW mostly. Can walk to plaster maker in the morning ~ 10'. Uses walker to walk to upstairs part of appt and down to dining theodore. Not walking up/down hallway because of fear of getting an ulcer in R foot (previously walked in 2.5 minutes). Hasn't had to test his balance, but feels like his balance has been worse, but is better since being treated for high amonia. Personal Factors Other Personal Factors That May Effect Lives at [facility] assisted Therapy/Recovery living. Ambs with 4WW, using electric w/c if having to walk too far. PT-OP-C Subjective Start: 11/28/23 19:07 Freq: Status: Active Protocol: Document 01/05/24 09:07 LRN (Rec: 01/05/24 09:51 LRN [id number]) OP-PT Subjective Patient Comments Patient Comments Day after last session was very painful in the L leg and achilles tendon (other side had the hx of foot problems). Was given pain meds at [facility]. L posterior thigh pain is 6/10 to start and after heat 2-3/10 in supine. Patient Questionnaires Oswestry Low Back Index Oswestry Score 48 Oswestry Impairment 40 to 59% Impaired (Score 40- 59) PT-OP-E Functional Tests Start: 11/28/23 19:07 Freq: Status: Active Protocol: Document 01/05/24 09:07 LRN (Rec: 01/05/24 18:48 LRN [id number]) Functional Tests Timed Up and Go (TUG) Score 37 Comments Pt having L LB/buttock pain TUG Impairment Rating 100% Impaired (Score 20) PT-OP-G Mobility & Gait Start: 11/28/23 19:07 Freq: Status: Active Protocol: Document 12/14/23 14:36 LRN (Rec: 12/14/23 16:24 LRN [id number]) OP Gait Assessment Assistive Devices Assistive Device 4 Wheeled Walker PT-OP-K Range of Motion Start: 11/28/23 19:07 Freq: Status: Active Protocol: Document 12/28/23 14:38 LRN (Rec: 12/28/23 14:52 LRN [id number]) Ankle and Foot Goniometric Range of Motion Ankle and Foot Right Active Testing Position Supine Dorsiflexion with Knee Extended 2 Plantarflexion 45 Inversion 20 Eversion 10 Left Active Testing Position Supine Dorsiflexion with Knee Extended 3 Plantarflexion 40 Inversion 22 Eversion 15 PT-OP-M Strength Start: 11/28/23 19:07 Freq: Status: Active Protocol: Document 12/14/23 14:36 LRN (Rec: 12/14/23 16:24 LRN [id number]) Knee Strength Knee Manual Muscle Testing Right Comments Strength is 5/5 Left Comments Strength is 5/5 Ankle/Foot Strength Ankle and Foot Manual Muscle Testing Right Comments Strength is 5/5 Left Comments Strength is 5/5 PT-OP-Q Treatments Start: 11/28/23 19:07 Freq: Status: Active Protocol: Document 01/05/24 09:07 LRN (Rec: 01/05/24 09:51 LRN [id number]) Therapeutic Exercises Supine Exercises TA tightening Reps/Minutes 10SH x 10 Sidelying Exercises TA tightening Side right Reps/Minutes 10 SH x 4' Sitting Exercises Ankle 4 way ex Sitting Exercise Name Ankle PF/DF/IV/EV Side bilateral Reps/Minutes 10x each Other Exercises 10' walk Other Exercise Name TUG w/4WW Equipment Used 4 WW, webbed chair Reps/Minutes 4' Manual Therapy Treatment Soft Tissue Mobilization L LB/hip Body Location L Paraspinals, QL, upper glueals, hamstinrg Mobilization Type Strumming Intensity/Depth Moderate Body Position R sidelie Comments MH to L posterior hamstring during STM PT-OP-T Assessment and Plan Start: 11/28/23 19:07 Freq: Status: Active Protocol: Document 01/05/24 09:07 LRN (Rec: 01/05/24 09:51 LRN [id number]) Physical Therapy Assessment Rehab Potential Rehabilitation Potential Good Evaluation Complexity Number of Personal Factors/Comorbidities 3 or More Number of Body Systems Impaired 4 or More Clinical Presentation at Evaluation Evolving Impairments Impairments Activity Tolerance,Balance, Gait,Pain,ROM,Strength Other Impairments Decreased endurance of LE's & L LBP (+L PSLR) Goals Two Impairment Decreased function placing pt at risk of falling (TUG 36 secs) Short Term Goal (STG) Pt will demonstrate safe and proper stand<>sit transfer and improved endurance and safety with gait with a 30 Sec STS of 12x or more, using a 4WW, his normal walking shoes, hands across chest. 12/19/23: Pt able to sit<> stand without UE's but has uncontrolled sit. 12/22/23:7 STS's in 30 secs no UE's. 12/28/23: Walking up/down the hallway several times a week. 01/05/24: Pt is not able to tolerate sit to stand test today. STG Duration 01/26/24 progressed 12/19/23 Halfway Goal (LTG) Pt will demonstrate improved balance and safety with gait with TUG score of 30 or less, using a 4WW, his normal walking shoes. 01/05/24: TUG 37 secs. One Impairment Pt lacks appropriate self care HEP. Short Term Goal (STG) Pt will be educated and will demonstrate proper sit<>stand transfers and reaching ability . 12/19/23: Pt able to perform sit<>stand without UE assist. Needs training for stand>sit to control descent. 01/05/24: Must use hands to transfer due to LLBP & LE pain . STG Duration 01/26/24 progressed 12/19/23 Purchasing Officer Goal (LTG) Pt will be independent in an effective self care HEP for core/knee/ankle strengthening and ankle (IV/EV)mobility ex's . LTG Duration 02/23/24 Assessment Summary Assessment Pt is a 68 yo male who is receiving rehab for increasing fall history within the past 3 months, mainly due to misjudgement of reaching and foot placement. Neuropathy of the feet hinders his progress to improve balance because of difficulty with his ability to identify feet placement. Today, pt present in pain in his LLB that is limiting his ability to move and walk, making transitioning very slow . PSLR is +LLE. TUG score is much worse than initial because of his back pain today . He is not able to tolerate 30 sec STS test. Pt BRIGETTE score indicates he is 48 % impaired in function. Balance testing was deferred due to his pain. The pt has been doing well with therapy and has been progressing towards his balance rehab, but was not able to progress today and he demonstrates a decrease in function. I would recommend continuation of therapy, with extra time needed for rehab because her is currently in a flared up state to include a slow recovery from his L LBP as we proceed with his balance and LE strengthening rehab. He is expected to be able to further improve once his L LBP has reduced. Physical Therapy Plan Frequency and Duration Frequency of Treatment 2x/Week Duration of treatment (weeks) 7 Plan of Care Start Date 01/05/24 Plan of Care End Date 02/23/24 Therapeutic Interventions Therapeutic Interventions Balance Training,Home Exercise Program,Neuromuscular Re- education,Self-Care/Home Management,Soft Tissue Mobilization,Therapeutic Activities,Therapeutic Exercises Modalities Cold Pack/Ice Massage,Hot Packs Next Visit Focus/Plan Next Note Type Treatment Note Next Visit Plan Next: Assess HEP again and LEFS, standing reach test. MH to L LB if painful Continue seated ther-ex. Ex: Balance & ankle, knee, core strengthening to improve endurance and safety with gait . DC'd ankle stretches.
--- NOTE | 2024-01-09 15:30 | PT.OTN ---
Current Diagnoses Muscle weakness (generalized) (01/09/24) Other abnormalities of gait and mobility (01/09/24) Physical Therapy Treatment Note PT-OP-A Visit Information Start: 11/28/23 19:07 Freq: Status: Active Protocol: Document 01/09/24 14:30 TS (Rec: 01/09/24 15:29 TS [id number]) Out-Patient Physical Therapy Visit Information Visit Information Visit Type Progress Note Visit Note Pt attends with tennis shoes and 4WW. Visit Start Time 14:34 Visit Stop Time 15:15 Visit Number Number of CROCODILE FARMER Visits 1 PT-OP-B Current Condition Start: 11/28/23 19:07 Freq: Status: Active Protocol: Document 12/14/23 14:36 LRN (Rec: 12/14/23 16:24 LRN [id number]) Current Condition History of Current Condition Onset Date 09/14/2023 Current Complaints Increased falling episodes History of Current Condition Pt is a resident at [facility] due to chronic diabetic ulcer in R foot. 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 He has had 5-6 falls this year while walking except once he was getting out of bed and reached for walker that was too far away and once in standing was reaching to turn off his airconditioner, another time failed to notice a curb and fell. His last falls was in Oct, fell twice within 2 hrs (using bathroom and getting out of bed) and was sent to ER and found he had high level of amonia. Previous falls was also partly found to be due to neuropathy of feet. He does have an electric wheelchair but is not able to use in his apartment. He has reduced his Primadone for essential tremors and that has been okay. States his wgt is 285#. Treatment Goals Patient/Caregiver Goals Pt goal: See if there is anything he can do to alleviate his potential for falls. Used to use a cane or walking stick, but since he has had more falls, he is using a 4WW. Current Functional Impairments (Reported) Functional Limitations- ADL's Makes own bed and walks around the bed. Functional Limitations- Mobility/Gait Walks around appt but always holds onto something. Doesn't walk around free often, uses 4WW mostly. Can walk to key maker in the morning ~ 10'. Uses walker to walk to upstairs part of appt and down to dining theodore. Not walking up/down hallway because of fear of getting an ulcer in R foot (previously walked in 2.5 minutes). Hasn't had to test his balance, but feels like his balance has been worse, but is better since being treated for high amonia. Personal Factors Other Personal Factors That May Effect Lives at [facility] assisted Therapy/Recovery living. Ambs with 4WW, using electric w/c if having to walk too far. PT-OP-C Subjective Start: 11/28/23 19:07 Freq: Status: Active Protocol: Document 01/09/24 14:30 TS (Rec: 01/09/24 15:29 TS [id number]) OP-PT Subjective Patient Comments Patient Comments Pt reports pain in L posterior thigh this morning but not this afternoon. PT-OP-E Functional Tests Start: 11/28/23 19:07 Freq: Status: Active Protocol: Document 01/05/24 09:07 LRN (Rec: 01/05/24 18:48 LRN [id number]) Functional Tests Timed Up and Go (TUG) Score 37 Comments Pt having L LB/buttock pain TUG Impairment Rating 100% Impaired (Score 20) PT-OP-G Mobility & Gait Start: 11/28/23 19:07 Freq: Status: Active Protocol: Document 12/14/23 14:36 LRN (Rec: 12/14/23 16:24 LRN [id number]) OP Gait Assessment Assistive Devices Assistive Device 4 Wheeled Walker PT-OP-K Range of Motion Start: 11/28/23 19:07 Freq: Status: Active Protocol: Document 12/28/23 14:38 LRN (Rec: 12/28/23 14:52 LRN [id number]) Ankle and Foot Goniometric Range of Motion Ankle and Foot Right Active Testing Position Supine Dorsiflexion with Knee Extended 2 Plantarflexion 45 Inversion 20 Eversion 10 Left Active Testing Position Supine Dorsiflexion with Knee Extended 3 Plantarflexion 40 Inversion 22 Eversion 15 PT-OP-M Strength Start: 11/28/23 19:07 Freq: Status: Active Protocol: Document 12/14/23 14:36 LRN (Rec: 12/14/23 16:24 LRN [id number]) Knee Strength Knee Manual Muscle Testing Right Comments Strength is 5/5 Left Comments Strength is 5/5 Ankle/Foot Strength Ankle and Foot Manual Muscle Testing Right Comments Strength is 5/5 Left Comments Strength is 5/5 PT-OP-Q Treatments Start: 11/28/23 19:07 Freq: Status: Active Protocol: Document 01/09/24 14:30 TS (Rec: 01/09/24 15:29 TS [id number]) Therapeutic Exercises Supine Exercises TA tightening Reps/Minutes 10SH x 10 Sitting Exercises HS Stretch Side bilateral Reps/Minutes x30 Comments tighter on L side, no pain LAQ Side bilateral Reps/Minutes x10 Comments denies discomfort in low back Sit<>stand Sitting Exercise Name without use of UE assist. Equipment Used from black table Reps/Minutes [address] ex Sitting Exercise Name Ankle PF/DF/IV/EV Side bilateral Reps/Minutes 10x each Manual Therapy Treatment Soft Tissue Mobilization L LB/hip Body Location L Paraspinals, QL, upper glueals, hamstinrg Mobilization Type Strumming Intensity/Depth Moderate Body Position R sideline PT-OP-T Assessment and Plan Start: 11/28/23 19:07 Freq: Status: Active Protocol: Document 01/09/24 14:30 TS (Rec: 01/09/24 15:29 TS [id number]) Physical Therapy Assessment Goals Two Impairment Decreased function placing pt at risk of falling (TUG 36 secs) Short Term Goal (STG) Pt will demonstrate safe and proper stand<>sit transfer and improved endurance and safety with gait with a 30 Sec STS of 12x or more, using a 4WW, his normal walking shoes, hands across chest. 12/19/23: Pt able to sit<> stand without UE's but has uncontrolled sit. 12/22/23:7 STS's in 30 secs no UE's. 12/28/23: Walking up/down the hallway several times a week. 01/05/24: Pt is not able to tolerate sit to stand test today. STG Duration 01/26/24 progressed 12/19/23 Hydraulic Rockbreaker Operator Goal (LTG) Pt will demonstrate improved balance and safety with gait with TUG score of 30 or less, using a 4WW, his normal walking shoes. 01/05/24: TUG 37 secs. One Impairment Pt lacks appropriate self care HEP. Short Term Goal (STG) Pt will be educated and will demonstrate proper sit<>stand transfers and reaching ability . 12/19/23: Pt able to perform sit<>stand without UE assist. Needs training for stand>sit to control descent. 01/05/24: Must use hands to transfer due to LLBP & LE pain . STG Duration 01/26/24 progressed 12/19/23 Hydraulic Rockbreaker Operator Goal (LTG) Pt will be independent in an effective self care HEP for core/knee/ankle strengthening and ankle (IV/EV)mobility ex's . LTG Duration 02/23/24 Assessment Summary Assessment Pt reports no pain in LB during session today. L hamstring tight compared to R hamstring this session during seated stretch and manual. Physical Therapy Plan Next Visit Focus/Plan Next Note Type Treatment Note Next Visit Plan Next: Standing reach test, LEFS, continue ankle ex, assess back pain. Progress ex if pt's pain is improved. Ex: Balance & ankle, knee, core strengthening to improve endurance and safety with gait . DC'd ankle stretches.
--- NOTE | 2024-01-11 15:42 | PT.OTN ---
Current Diagnoses Muscle weakness (generalized) (01/11/24) Other abnormalities of gait and mobility (01/11/24) Physical Therapy Treatment Note PT-OP-A Visit Information Start: 11/28/23 19:07 Freq: Status: Active Protocol: Document 01/11/24 13:49 LRN (Rec: 01/11/24 14:30 LRN [id number]) Out-Patient Physical Therapy Visit Information Visit Information Visit Type Treatment Note Visit Note Pt attends with tennis shoes and 4WW. Visit Start Time 13:49 Visit Stop Time 14:29 Visit Number (1 after PN) Number of ANNUAL GIVING OFFICER Visits 0 Evaluation Information Evaluation Date 12/14/23 Precautions Precautions Callous on R 1st Metatarsal, ending wound care treatment 2 wks from 12/28/23. Diabetes II , neuropathy, Fall history with last 2 in Oct 2023, declared healed chronic ulcer of R foot as of last week. PT-OP-B Current Condition Start: 11/28/23 19:07 Freq: Status: Active Protocol: Document 12/14/23 14:36 LRN (Rec: 12/14/23 16:24 LRN [id number]) Current Condition History of Current Condition Onset Date 09/14/2023 Current Complaints Increased falling episodes History of Current Condition Pt is a resident at [facility] due to chronic diabetic ulcer in R foot. 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 He has had 5-6 falls this year while walking except once he was getting out of bed and reached for walker that was too far away and once in standing was reaching to turn off his airconditioner, another time failed to notice a curb and fell. His last falls was in Oct, fell twice within 2 hrs (using bathroom and getting out of bed) and was sent to ER and found he had high level of amonia. Previous falls was also partly found to be due to neuropathy of feet. He does have an electric wheelchair but is not able to use in his apartment. He has reduced his Primadone for essential tremors and that has been okay. States his wgt is 285#. Treatment Goals Patient/Caregiver Goals Pt goal: See if there is anything he can do to alleviate his potential for falls. Used to use a cane or walking stick, but since he has had more falls, he is using a 4WW. Current Functional Impairments (Reported) Functional Limitations- ADL's Makes own bed and walks around the bed. Functional Limitations- Mobility/Gait Walks around appt but always holds onto something. Doesn't walk around free often, uses 4WW mostly. Can walk to detonator maker in the morning ~ 10'. Uses walker to walk to upstairs part of appt and down to dining theodore. Not walking up/down hallway because of fear of getting an ulcer in R foot (previously walked in 2.5 minutes). Hasn't had to test his balance, but feels like his balance has been worse, but is better since being treated for high amonia. Personal Factors Other Personal Factors That May Effect Lives at [facility] assisted Therapy/Recovery living. Ambs with 4WW, using electric w/c if having to walk too far. PT-OP-C Subjective Start: 11/28/23 19:07 Freq: Status: Active Protocol: Document 01/11/24 13:49 LRN (Rec: 01/11/24 14:30 LRN [id number]) OP-PT Subjective Patient Comments Patient Comments Pain in L hip and posterior thigh this morning, but has resolved. Patient Questionnaires Lower Extremity Functional Scale LEFS Score 29 LEFS Impairment 60 to 79% Impaired (Score 17- 31) OP-PT Pain Assessment Pain Assessment Grid Paper Pain Assessment Grid Completed Yes Location R posterior thigh Pain Location Details Posterior thigh Intensity 6 Scale Used Numeric (0 - 10) Description Sharp Description- Other Sciatic pain Frequency Intermittent Pain Duration 1 hr Other Pain Alleviating Factors Reclined in bed PT-OP-E Functional Tests Start: 11/28/23 19:07 Freq: Status: Active Protocol: Document 01/05/24 09:07 LRN (Rec: 01/05/24 18:48 LRN [id number]) Functional Tests Timed Up and Go (TUG) Score 37 Comments Pt having L LB/buttock pain TUG Impairment Rating 100% Impaired (Score 20) PT-OP-G Mobility & Gait Start: 11/28/23 19:07 Freq: Status: Active Protocol: Document 12/14/23 14:36 LRN (Rec: 12/14/23 16:24 LRN [id number]) OP Gait Assessment Assistive Devices Assistive Device 4 Wheeled Walker PT-OP-K Range of Motion Start: 11/28/23 19:07 Freq: Status: Active Protocol: Document 12/28/23 14:38 LRN (Rec: 12/28/23 14:52 LRN [id number]) Ankle and Foot Goniometric Range of Motion Ankle and Foot Right Active Testing Position Supine Dorsiflexion with Knee Extended 2 Plantarflexion 45 Inversion 20 Eversion 10 Left Active Testing Position Supine Dorsiflexion with Knee Extended 3 Plantarflexion 40 Inversion 22 Eversion 15 PT-OP-M Strength Start: 11/28/23 19:07 Freq: Status: Active Protocol: Document 12/14/23 14:36 LRN (Rec: 12/14/23 16:24 LRN [id number]) Knee Strength Knee Manual Muscle Testing Right Comments Strength is 5/5 Left Comments Strength is 5/5 Ankle/Foot Strength Ankle and Foot Manual Muscle Testing Right Comments Strength is 5/5 Left Comments Strength is 5/5 PT-OP-Q Treatments Start: 11/28/23 19:07 Freq: Status: Active Protocol: Document 01/11/24 13:49 LRN (Rec: 01/11/24 14:30 LRN [id number]) Therapeutic Exercises Sitting Exercises LAQ Side bilateral Reps/Minutes x10 Comments denies discomfort in low back Ankle TB Sitting Exercise Name Ankle PF/DF/IV/EV Side bilateral Equipment Used L1 TBand Reps/Minutes 10x w/o TB, 10x w/TB. Comments Cued for positioning for self resistance on TB. Other Exercises 10' walk Other Exercise Name Gait with TB around thighs for resistive gluteal tightening Reps/Minutes 10'x 6 Comments Cued to hold standing leg stable & before starting step thru, control leg PT-OP-T Assessment and Plan Start: 11/28/23 19:07 Freq: Status: Active Protocol: Document 01/11/24 13:49 LRN (Rec: 01/11/24 14:30 LRN [id number]) Physical Therapy Assessment Goals Two Impairment Decreased function placing pt at risk of falling (TUG 36 secs) Short Term Goal (STG) Pt will demonstrate safe and proper stand<>sit transfer and improved endurance and safety with gait with a 30 Sec STS of 12x or more, using a 4WW, his normal walking shoes, hands across chest. 12/19/23: Pt able to sit<> stand without UE's but has uncontrolled sit. 12/22/23:7 STS's in 30 secs no UE's. 12/28/23: Walking up/down the hallway several times a week. 01/05/24: Pt is not able to tolerate sit to stand test today. STG Duration 01/26/24 progressed 12/19/23 Cad Drafter Goal (LTG) Pt will demonstrate improved balance and safety with gait with TUG score of 30 or less, using a 4WW, his normal walking shoes. 01/05/24: TUG 37 secs. One Impairment Pt lacks appropriate self care HEP. Short Term Goal (STG) Pt will be educated and will demonstrate proper sit<>stand transfers and reaching ability . 12/19/23: Pt able to perform sit<>stand without UE assist. Needs training for stand>sit to control descent. 01/05/24: Must use hands to transfer due to LLBP & LE pain . STG Duration 01/26/24 progressed 12/19/23 Cad Drafter Goal (LTG) Pt will be independent in an effective self care HEP for core/knee/ankle strengthening and ankle (IV/EV)mobility ex's . LTG Duration 02/23/24 Assessment Summary Assessment Pt is a 68 yo male who is receiving rehab for increasing fall history, mainly due to misjudgement of reaching and foot placement. Neuropathy of the feet hinders his progress to improve balance because of difficulty with his ability to identify feet placement. Today, pt reports back pain in AM, but no R back/posterior thigh pain this PM, and he showed good tolerance to ex ( although it was slow moving through exercises), with no c/ o pain during ex's. LEFS indicates slight improvement with score 29 (was 26), indicating 60-79% impaired ( score 17-31). Physical Therapy Plan Frequency and Duration Frequency of Treatment 2x/Week Duration of treatment (weeks) 7 Plan of Care Start Date 01/05/24 Plan of Care End Date 02/23/24 Next Visit Focus/Plan Next Note Type Treatment Note Next Visit Plan Next: Assess Standing Reach test if back/posterior thigh pain is still not painful. Progress LE/core strengthening ex with precaution of ex for L sciatic pain. Ex: Balance & ankle strengthening, knee, core strengthening to improve endurance and safety with gait . DC'd ankle stretches.
--- NOTE | 2024-01-16 16:29 | PT.OTN ---
Current Diagnoses Muscle weakness (generalized) (01/16/24) Other abnormalities of gait and mobility (01/16/24) Physical Therapy Treatment Note PT-OP-A Visit Information Start: 11/28/23 19:07 Freq: Status: Active Protocol: Document 01/16/24 15:17 TS (Rec: 01/16/24 16:29 TS [id number]) Out-Patient Physical Therapy Visit Information Visit Information Visit Type Treatment Note Visit Note Pt attends with tennis shoes and 4WW. Visit Start Time 15:18 Visit Stop Time 16:00 Visit Number 9 Number of FRAMING CARPENTER Visits 1 Evaluation Information Evaluation Date 12/14/23 Precautions Precautions Callous on R 1st Metatarsal, ending wound care treatment 2 wks from 12/28/23. Diabetes II , neuropathy, Fall history with last 2 in Oct 2023, declared healed chronic ulcer of R foot as of last week. PT-OP-B Current Condition Start: 11/28/23 19:07 Freq: Status: Active Protocol: Document 12/14/23 14:36 LRN (Rec: 12/14/23 16:24 LRN [id number]) Current Condition History of Current Condition Onset Date 09/14/2023 Current Complaints Increased falling episodes History of Current Condition Pt is a resident at [facility] due to chronic diabetic ulcer in R foot. 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 He has had 5-6 falls this year while walking except once he was getting out of bed and reached for walker that was too far away and once in standing was reaching to turn off his airconditioner, another time failed to notice a curb and fell. His last falls was in Oct, fell twice within 2 hrs (using bathroom and getting out of bed) and was sent to ER and found he had high level of amonia. Previous falls was also partly found to be due to neuropathy of feet. He does have an electric wheelchair but is not able to use in his apartment. He has reduced his Primadone for essential tremors and that has been okay. States his wgt is 285#. Treatment Goals Patient/Caregiver Goals Pt goal: See if there is anything he can do to alleviate his potential for falls. Used to use a cane or walking stick, but since he has had more falls, he is using a 4WW. Current Functional Impairments (Reported) Functional Limitations- ADL's Makes own bed and walks around the bed. Functional Limitations- Mobility/Gait Walks around appt but always holds onto something. Doesn't walk around free often, uses 4WW mostly. Can walk to stopper maker helper in the morning ~ 10'. Uses walker to walk to upstairs part of appt and down to dining theodore. Not walking up/down hallway because of fear of getting an ulcer in R foot (previously walked in 2.5 minutes). Hasn't had to test his balance, but feels like his balance has been worse, but is better since being treated for high amonia. Personal Factors Other Personal Factors That May Effect Lives at [facility] assisted Therapy/Recovery living. Ambs with 4WW, using electric w/c if having to walk too far. PT-OP-C Subjective Start: 11/28/23 19:07 Freq: Status: Active Protocol: Document 01/16/24 15:17 TS (Rec: 01/16/24 16:29 TS [id number]) OP-PT Subjective Patient Comments Patient Comments Pt reports doing his HEP at home. Had some pain in low back this morning but it is gone now. PT-OP-E Functional Tests Start: 11/28/23 19:07 Freq: Status: Active Protocol: Document 01/05/24 09:07 LRN (Rec: 01/05/24 18:48 LRN [id number]) Functional Tests Timed Up and Go (TUG) Score 37 Comments Pt having L LB/buttock pain TUG Impairment Rating 100% Impaired (Score 20) PT-OP-G Mobility & Gait Start: 11/28/23 19:07 Freq: Status: Active Protocol: Document 12/14/23 14:36 LRN (Rec: 12/14/23 16:24 LRN [id number]) OP Gait Assessment Assistive Devices Assistive Device 4 Wheeled Walker PT-OP-K Range of Motion Start: 11/28/23 19:07 Freq: Status: Active Protocol: Document 12/28/23 14:38 LRN (Rec: 12/28/23 14:52 LRN [id number]) Ankle and Foot Goniometric Range of Motion Ankle and Foot Right Active Testing Position Supine Dorsiflexion with Knee Extended 2 Plantarflexion 45 Inversion 20 Eversion 10 Left Active Testing Position Supine Dorsiflexion with Knee Extended 3 Plantarflexion 40 Inversion 22 Eversion 15 PT-OP-M Strength Start: 11/28/23 19:07 Freq: Status: Active Protocol: Document 12/14/23 14:36 LRN (Rec: 12/14/23 16:24 LRN [id number]) Knee Strength Knee Manual Muscle Testing Right Comments Strength is 5/5 Left Comments Strength is 5/5 Ankle/Foot Strength Ankle and Foot Manual Muscle Testing Right Comments Strength is 5/5 Left Comments Strength is 5/5 PT-OP-Q Treatments Start: 11/28/23 19:07 Freq: Status: Active Protocol: Document 01/16/24 15:17 TS (Rec: 01/16/24 16:29 TS [id number]) Therapeutic Exercises Sitting Exercises Sit<>stand Sitting Exercise Name without use of UE assist. Equipment Used from black table Reps/Minutes 10x Standing Exercises Heel Raises Reps/Minutes x10 Hurdles Reps/Minutes 4x10' Comments cues for upright posture, head fwd. GAstroc/Soleus stretch Standing Exercise Name LONNIE Reps/Minutes x30 PT-OP-T Assessment and Plan Start: 11/28/23 19:07 Freq: Status: Active Protocol: Document 01/16/24 15:17 TS (Rec: 01/16/24 16:29 TS [id number]) Physical Therapy Assessment Goals Two Impairment Decreased function placing pt at risk of falling (TUG 36 secs) Short Term Goal (STG) Pt will demonstrate safe and proper stand<>sit transfer and improved endurance and safety with gait with a 30 Sec STS of 12x or more, using a 4WW, his normal walking shoes, hands across chest. 12/19/23: Pt able to sit<> stand without UE's but has uncontrolled sit. 12/22/23:7 STS's in 30 secs no UE's. 12/28/23: Walking up/down the hallway several times a week. 01/05/24: Pt is not able to tolerate sit to stand test today. STG Duration 01/26/24 progressed 12/19/23 Detention Goal (LTG) Pt will demonstrate improved balance and safety with gait with TUG score of 30 or less, using a 4WW, his normal walking shoes. 01/05/24: TUG 37 secs. One Impairment Pt lacks appropriate self care HEP. Short Term Goal (STG) Pt will be educated and will demonstrate proper sit<>stand transfers and reaching ability . 12/19/23: Pt able to perform sit<>stand without UE assist. Needs training for stand>sit to control descent. 01/05/24: Must use hands to transfer due to LLBP & LE pain . STG Duration 01/26/24 progressed 12/19/23 Detention Goal (LTG) Pt will be independent in an effective self care HEP for core/knee/ankle strengthening and ankle (IV/EV)mobility ex's . LTG Duration 02/23/24 Assessment Summary Assessment Reach test 7 with single arm, 5 with BUE. Pt had minor complaint about low back after STS exercise. He continues to move slowly during exercises. Physical Therapy Plan Next Visit Focus/Plan Next Note Type Treatment Note Next Visit Plan Progress LE/core strengthening ex with precaution of ex for L sciatic pain. Ex: Balance & ankle strengthening, knee, core strengthening to improve endurance and safety with gait . DC'd ankle stretches.
--- NOTE | 2024-01-24 14:30 | PT.OTN ---
Current Diagnoses Muscle weakness (generalized) (01/24/24) Other abnormalities of gait and mobility (01/24/24) Physical Therapy Treatment Note PT-OP-A Visit Information Start: 11/28/23 19:07 Freq: Status: Active Protocol: Document 01/24/24 14:34 TS (Rec: 01/24/24 16:31 TS [id number]) Out-Patient Physical Therapy Visit Information Visit Information Visit Type Treatment Note Visit Note Pt attends with tennis shoes and 4WW. Visit Start Time 14:30 Visit Stop Time 15:15 Visit Number Number of DATA ENTRY ANALYST Visits 2 Evaluation Information Evaluation Date 12/14/23 Precautions Precautions Callous on R 1st Metatarsal, ending wound care treatment 2 wks from 12/28/23. Diabetes II , neuropathy, Fall history with last 2 in Oct 2023, declared healed chronic ulcer of R foot as of last week. PT-OP-B Current Condition Start: 11/28/23 19:07 Freq: Status: Active Protocol: Document 12/14/23 14:36 LRN (Rec: 12/14/23 16:24 LRN [id number]) Current Condition History of Current Condition Onset Date 09/14/2023 Current Complaints Increased falling episodes History of Current Condition Pt is a resident at [facility] due to chronic diabetic ulcer in R foot. 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 He has had 5-6 falls this year while walking except once he was getting out of bed and reached for walker that was too far away and once in standing was reaching to turn off his airconditioner, another time failed to notice a curb and fell. His last falls was in Oct, fell twice within 2 hrs (using bathroom and getting out of bed) and was sent to ER and found he had high level of amonia. Previous falls was also partly found to be due to neuropathy of feet. He does have an electric wheelchair but is not able to use in his apartment. He has reduced his Primadone for essential tremors and that has been okay. States his wgt is 285#. Treatment Goals Patient/Caregiver Goals Pt goal: See if there is anything he can do to alleviate his potential for falls. Used to use a cane or walking stick, but since he has had more falls, he is using a 4WW. Current Functional Impairments (Reported) Functional Limitations- ADL's Makes own bed and walks around the bed. Functional Limitations- Mobility/Gait Walks around appt but always holds onto something. Doesn't walk around free often, uses 4WW mostly. Can walk to coffee blender in the morning ~ 10'. Uses walker to walk to upstairs part of appt and down to dining theodore. Not walking up/down hallway because of fear of getting an ulcer in R foot (previously walked in 2.5 minutes). Hasn't had to test his balance, but feels like his balance has been worse, but is better since being treated for high amonia. Personal Factors Other Personal Factors That May Effect Lives at [facility] assisted Therapy/Recovery living. Ambs with 4WW, using electric w/c if having to walk too far. PT-OP-C Subjective Start: 11/28/23 19:07 Freq: Status: Active Protocol: Document 01/24/24 14:34 TS (Rec: 01/24/24 16:31 TS [id number]) OP-PT Subjective Patient Comments Patient Comments Pt continues to report sciatica issues in the morning but goes away later in the day. PT-OP-E Functional Tests Start: 11/28/23 19:07 Freq: Status: Active Protocol: Document 01/05/24 09:07 LRN (Rec: 01/05/24 18:48 LRN [id number]) Functional Tests Timed Up and Go (TUG) Score 37 Comments Pt having L LB/buttock pain TUG Impairment Rating 100% Impaired (Score 20) PT-OP-G Mobility & Gait Start: 11/28/23 19:07 Freq: Status: Active Protocol: Document 12/14/23 14:36 LRN (Rec: 12/14/23 16:24 LRN [id number]) OP Gait Assessment Assistive Devices Assistive Device 4 Wheeled Walker PT-OP-K Range of Motion Start: 11/28/23 19:07 Freq: Status: Active Protocol: Document 12/28/23 14:38 LRN (Rec: 12/28/23 14:52 LRN [id number]) Ankle and Foot Goniometric Range of Motion Ankle and Foot Right Active Testing Position Supine Dorsiflexion with Knee Extended 2 Plantarflexion 45 Inversion 20 Eversion 10 Left Active Testing Position Supine Dorsiflexion with Knee Extended 3 Plantarflexion 40 Inversion 22 Eversion 15 PT-OP-M Strength Start: 11/28/23 19:07 Freq: Status: Active Protocol: Document 12/14/23 14:36 LRN (Rec: 12/14/23 16:24 LRN [id number]) Knee Strength Knee Manual Muscle Testing Right Comments Strength is 5/5 Left Comments Strength is 5/5 Ankle/Foot Strength Ankle and Foot Manual Muscle Testing Right Comments Strength is 5/5 Left Comments Strength is 5/5 PT-OP-Q Treatments Start: 11/28/23 19:07 Freq: Status: Active Protocol: Document 01/24/24 14:34 TS (Rec: 01/24/24 16:31 TS [id number]) Therapeutic Exercises Sitting Exercises HS Stretch Reps/Minutes x30 Comments feels stretch mostly in calf LAQ Side bilateral Reps/Minutes x10 Comments denies discomfort in low back, tightness in hamstring/ gastroc Seated ABD Sitting Exercise Name HEP Resistance LVL 4 Reps/Minutes x10 Comments cues for posture, not feeling act in hips Standing Exercises Side step Resistance LVL 4 Reps/Minutes 4x10' Heel Raises Reps/Minutes x10 Comments use of handrail Hurdles Reps/Minutes 4x10' Comments cues for upright posture, head fwd. GAstroc/Soleus stretch Standing Exercise Name LONNIE Reps/Minutes x30 Neuro Re-Education Treatment Balance Activities Foam Details WBOS Comments Improved balance with cues for glute and core act BWD Walk Reps/Duration 4x10' PT-OP-T Assessment and Plan Start: 11/28/23 19:07 Freq: Status: Active Protocol: Document 01/24/24 14:34 TS (Rec: 01/24/24 16:31 TS [id number]) Physical Therapy Assessment Goals Two Impairment Decreased function placing pt at risk of falling (TUG 36 secs) Short Term Goal (STG) Pt will demonstrate safe and proper stand<>sit transfer and improved endurance and safety with gait with a 30 Sec STS of 12x or more, using a 4WW, his normal walking shoes, hands across chest. 12/19/23: Pt able to sit<> stand without UE's but has uncontrolled sit. 12/22/23:7 STS's in 30 secs no UE's. 11/07/24: Walking up/down the hallway several times a week. 01/05/24: Pt is not able to tolerate sit to stand test today. 01/23/2023: x7 STS 30secs STG Duration 01/26/24 progressed 12/19/23 Hod Carrier Goal (LTG) Pt will demonstrate improved balance and safety with gait with TUG score of 30 or less, using a 4WW, his normal walking shoes. 01/05/24: TUG 37 secs. One Impairment Pt lacks appropriate self care HEP. Short Term Goal (STG) Pt will be educated and will demonstrate proper sit<>stand transfers and reaching ability . 12/19/23: Pt able to perform sit<>stand without UE assist. Needs training for stand>sit to control descent. 01/05/24: Must use hands to transfer due to LLBP & LE pain . STG Duration 01/26/24 progressed 12/19/23 Hod Carrier Goal (LTG) Pt will be independent in an effective self care HEP for core/knee/ankle strengthening and ankle (IV/EV)mobility ex's . LTG Duration 02/23/24 Assessment Summary Assessment Pt performs STS x7 in 30secs. Progressed balance acts with foam and BWD walk. Foam balance challenging for pt but improved with use of cues for glute and core act, did not require handrail assist. Pt reported no back pain this session. He has some fatigue at end of session. Physical Therapy Plan Next Visit Focus/Plan Next Note Type Treatment Note Next Visit Plan Update HEP with standing ex. Continue to progress balance. Assess back pain. Strenghten hips. Ex: Balance & ankle strengthening, knee, core strengthening to improve endurance and safety with gait . DC'd ankle stretches.
--- NOTE | 2024-01-30 16:34 | PT.OTN ---
Current Diagnoses Muscle weakness (generalized) (01/30/24) Other abnormalities of gait and mobility (01/30/24) Physical Therapy Treatment Note PT-OP-A Visit Information Start: 11/28/23 19:07 Freq: Status: Active Protocol: Document 01/30/24 14:40 SW (Rec: 01/30/24 15:27 SW [id number]) Out-Patient Physical Therapy Visit Information Visit Information Visit Type Treatment Note Visit Note Pt attends with tennis shoes and 4WW. Visit Start Time 14:35 Visit Stop Time 15:15 Visit Number Number of ASSISTANT ACTIVITIES DIRECTOR Visits 3 Precautions Precautions Callous on R 1st Metatarsal, ending wound care treatment 2 wks from 12/28/23. Diabetes II , neuropathy, Fall history with last 2 in Oct 2023, declared healed chronic ulcer of R foot as of last week. PT-OP-B Current Condition Start: 11/28/23 19:07 Freq: Status: Active Protocol: Document 12/14/23 14:36 LRN (Rec: 12/14/23 16:24 LRN [id number]) Current Condition History of Current Condition Onset Date 09/14/2023 Current Complaints Increased falling episodes History of Current Condition Pt is a resident at [facility] due to chronic diabetic ulcer in R foot. 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 He has had 5-6 falls this year while walking except once he was getting out of bed and reached for walker that was too far away and once in standing was reaching to turn off his airconditioner, another time failed to notice a curb and fell. His last falls was in Oct, fell twice within 2 hrs (using bathroom and getting out of bed) and was sent to ER and found he had high level of amonia. Previous falls was also partly found to be due to neuropathy of feet. He does have an electric wheelchair but is not able to use in his apartment. He has reduced his Primadone for essential tremors and that has been okay. States his wgt is 285#. Treatment Goals Patient/Caregiver Goals Pt goal: See if there is anything he can do to alleviate his potential for falls. Used to use a cane or walking stick, but since he has had more falls, he is using a 4WW. Current Functional Impairments (Reported) Functional Limitations- ADL's Makes own bed and walks around the bed. Functional Limitations- Mobility/Gait Walks around appt but always holds onto something. Doesn't walk around free often, uses 4WW mostly. Can walk to machine i coremaker in the morning ~ 10'. Uses walker to walk to upstairs part of appt and down to dining theodore. Not walking up/down hallway because of fear of getting an ulcer in R foot (previously walked in 2.5 minutes). Hasn't had to test his balance, but feels like his balance has been worse, but is better since being treated for high amonia. Personal Factors Other Personal Factors That May Effect Lives at [facility] assisted Therapy/Recovery living. Ambs with 4WW, using electric w/c if having to walk too far. PT-OP-C Subjective Start: 11/28/23 19:07 Freq: Status: Active Protocol: Document 01/30/24 14:40 SW (Rec: 01/30/24 15:27 SW [id number]) OP-PT Subjective Patient Comments Patient Comments Pt reports sciatica in morning when waking up. Pt reports sleeps on right side. PT-OP-E Functional Tests Start: 11/28/23 19:07 Freq: Status: Active Protocol: Document 01/05/24 09:07 LRN (Rec: 01/05/24 18:48 LRN [id number]) Functional Tests Timed Up and Go (TUG) Score 37 Comments Pt having L LB/buttock pain TUG Impairment Rating 100% Impaired (Score 20) PT-OP-G Mobility & Gait Start: 11/28/23 19:07 Freq: Status: Active Protocol: Document 12/14/23 14:36 LRN (Rec: 12/14/23 16:24 LRN [id number]) OP Gait Assessment Assistive Devices Assistive Device 4 Wheeled Walker PT-OP-K Range of Motion Start: 11/28/23 19:07 Freq: Status: Active Protocol: Document 12/28/23 14:38 LRN (Rec: 12/28/23 14:52 LRN [id number]) Ankle and Foot Goniometric Range of Motion Ankle and Foot Right Active Testing Position Supine Dorsiflexion with Knee Extended 2 Plantarflexion 45 Inversion 20 Eversion 10 Left Active Testing Position Supine Dorsiflexion with Knee Extended 3 Plantarflexion 40 Inversion 22 Eversion 15 PT-OP-M Strength Start: 11/28/23 19:07 Freq: Status: Active Protocol: Document 12/14/23 14:36 LRN (Rec: 12/14/23 16:24 LRN [id number]) Knee Strength Knee Manual Muscle Testing Right Comments Strength is 5/5 Left Comments Strength is 5/5 Ankle/Foot Strength Ankle and Foot Manual Muscle Testing Right Comments Strength is 5/5 Left Comments Strength is 5/5 PT-OP-Q Treatments Start: 11/28/23 19:07 Freq: Status: Active Protocol: Document 01/30/24 14:40 SW (Rec: 01/30/24 15:27 SW [id number]) Therapeutic Exercises Sitting Exercises Heel/toe raises Sitting Exercise Name Heel/toe raises (issued HEP HO ) Side bilateral Resistance 3-5 isometric hold Comments cues for slow eccentric control LAQ Side bilateral Resistance AROM>Trialed lvl 1 TB Reps/Minutes x10 Comments pain free cues for slow eccentric control, alignment Seated ABD Sitting Exercise Name HEP Resistance LVL 4 Reps/Minutes x1 min hold, x10 Comments cues for alignment with setup, cues for eccentric control Sit<>stand Sitting Exercise Name without use of UE assist. Equipment Used from black table Reps/Minutes 10x Standing Exercises Heel Raises Standing Exercise Name minimal lift, trialed seated heel raises this session, improved tolerance Reps/Minutes x10 Comments use of handrail, discomfort in standing in ankle Neuro Re-Education Treatment Balance Activities Static Balance Details NBOS Surface stable Equipment // bars Comments 1.NBOS eyes on floor>w/fwd gaze 2.NBOS head turns- rotation/ nods hands hovering above // bars, occasional UE assist prn, close SBA/CGA, // bars, gait belt donned cues core stabilization Dynamic balance Details fwd/retro ambulation Comments Hands hovering, occasional UE assist prn for near LOB, gait belt donned, CGA cues for step length, cues for foot clearance Self-Care/Home Management Treatment Education Patient Education Home Exercise Program,Posture, Safety Other Education Pt education on sleeping positions at night, with pillow positioning between LE to improve alignment. Pt education on HEP exercises, and safety. PT-OP-T Assessment and Plan Start: 11/28/23 19:07 Freq: Status: Active Protocol: Document 01/30/24 14:40 SW (Rec: 01/30/24 15:27 [id number]) Physical Therapy Assessment Goals Two Impairment Decreased function placing pt at risk of falling (TUG 36 secs) Short Term Goal (STG) Pt will demonstrate safe and proper stand<>sit transfer and improved endurance and safety with gait with a 30 Sec STS of 12x or more, using a 4WW, his normal walking shoes, hands across chest. 12/19/23: Pt able to sit<> stand without UE's but has uncontrolled sit. 12/22/23:7 STS's in 30 secs no UE's. 12/28/23: Walking up/down the hallway several times a week. 01/05/24: Pt is not able to tolerate sit to stand test today. 01/23/2023: x7 STS 30secs 01/30/24: x8 STS 30 standard chair height STG Duration 01/26/24 progressed 12/19/23 Waste Water Worker Goal (LTG) Pt will demonstrate improved balance and safety with gait with TUG score of 30 or less, using a 4WW, his normal walking shoes. 01/05/24: TUG 37 secs. One Impairment Pt lacks appropriate self care HEP. Short Term Goal (STG) Pt will be educated and will demonstrate proper sit<>stand transfers and reaching ability . 12/19/23: Pt able to perform sit<>stand without UE assist. Needs training for stand>sit to control descent. 01/05/24: Must use hands to transfer due to LLBP & LE pain . 01/30/24: cued pt for increased glute activation to stand upright STG Duration 01/26/24 progressed 12/19/23 Jail Goal (LTG) Pt will be independent in an effective self care HEP for core/knee/ankle strengthening and ankle (IV/EV)mobility ex's . 01/30/24: Seated heel/toe raises w/ isometric hold- issued HEP HO LTG Duration 02/23/24 Assessment Summary Assessment Pt reports feels sciatica in the morning time when waking up, pt education on sleeping positioning for optimal alignment with side sleeping. Pt performed x 8 STS in 30 this session, progressed from x7 in 30 last session, performed at plinth with height at standard chair height. Pt had no increase in symptoms throughout session today. Pt required cues for eccentric control and correct setup/alignment with exercises . Issued HEP HO for seated heel/toe raises w/ isometric hold, plan to followup on carryover of new HEP next session. Pt challenged with balance this session, requiring close SBA/CGA throughout, gait belt donned, occasional SENIOR ANDROID SOFTWARE ENGINEER in // bars for LOB, cued pt for increased foot clearance. Pt initially demonstrated minimal step length with backwards ambulation, feet scuffing carpet, improved with cueing. Educated pt on the importance of foot clearance to decrease fall risk. Physical Therapy Plan Frequency and Duration Frequency of Treatment 2x/Week Duration of treatment (weeks) 7 Plan of Care Start Date 01/05/24 Plan of Care End Date 02/23/24 Therapeutic Interventions Therapeutic Interventions Balance Training,Home Exercise Program,Neuromuscular Re- education,Self-Care/Home Management,Soft Tissue Mobilization,Therapeutic Activities,Therapeutic Exercises Modalities Cold Pack/Ice Massage,Hot Packs Next Visit Focus/Plan Next Note Type Treatment Note Next Visit Plan Update HEP exercises prn. Continue to progress balance. Assess back pain. Progress hip and knee strength as able, initiate core strength. Ex: Balance & ankle strengthening, knee, core strengthening to improve endurance and safety with gait . DC'd ankle stretches.
--- NOTE | 2024-02-01 15:37 | PT.OTN ---
Current Diagnoses Muscle weakness (generalized) (02/01/24) Other abnormalities of gait and mobility (02/01/24) Physical Therapy Treatment Note PT-OP-A Visit Information Start: 11/28/23 19:07 Freq: Status: Active Protocol: Document 02/01/24 14:37 LRN (Rec: 02/01/24 15:36 LRN [id number]) Out-Patient Physical Therapy Visit Information Visit Information Visit Type Treatment Note Visit Note Pt attends with tennis shoes and 4WW. Visit Start Time 14:37 Visit Stop Time 15:20 Visit Number , 07/30 after PN Number of COMMERCIAL COORDINATOR Visits 4 Evaluation Information Evaluation Date 12/14/23 Precautions Precautions Callous on R 1st Metatarsal, ending wound care treatment 2 wks from 12/28/23. Diabetes II , neuropathy, Fall history with last 2 in Oct 2023, declared healed chronic ulcer of R foot as of last week. PT-OP-B Current Condition Start: 11/28/23 19:07 Freq: Status: Active Protocol: Document 12/14/23 14:36 LRN (Rec: 12/14/23 16:24 LRN [id number]) Current Condition History of Current Condition Onset Date 09/14/2023 Current Complaints Increased falling episodes History of Current Condition Pt is a resident at [facility] due to chronic diabetic ulcer in R foot. 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 He has had 5-6 falls this year while walking except once he was getting out of bed and reached for walker that was too far away and once in standing was reaching to turn off his airconditioner, another time failed to notice a curb and fell. His last falls was in Oct, fell twice within 2 hrs (using bathroom and getting out of bed) and was sent to ER and found he had high level of amonia. Previous falls was also partly found to be due to neuropathy of feet. He does have an electric wheelchair but is not able to use in his apartment. He has reduced his Primadone for essential tremors and that has been okay. States his wgt is 285#. Treatment Goals Patient/Caregiver Goals Pt goal: See if there is anything he can do to alleviate his potential for falls. Used to use a cane or walking stick, but since he has had more falls, he is using a 4WW. Current Functional Impairments (Reported) Functional Limitations- ADL's Makes own bed and walks around the bed. Functional Limitations- Mobility/Gait Walks around appt but always holds onto something. Doesn't walk around free often, uses 4WW mostly. Can walk to hand violin maker in the morning ~ 10'. Uses walker to walk to upstairs part of appt and down to dining theodore. Not walking up/down hallway because of fear of getting an ulcer in R foot (previously walked in 2.5 minutes). Hasn't had to test his balance, but feels like his balance has been worse, but is better since being treated for high amonia. Personal Factors Other Personal Factors That May Effect Lives at [facility] assisted Therapy/Recovery living. Ambs with 4WW, using electric w/c if having to walk too far. PT-OP-C Subjective Start: 11/28/23 19:07 Freq: Status: Active Protocol: Document 02/01/24 14:37 LRN (Rec: 02/01/24 15:36 LRN [id number]) OP-PT Subjective Patient Comments Patient Comments States he has a callus on his foot, no ulcer on feet for a couple of weeks, and grated cheese maker thought his feet didn't have callus' and his feet looked good. PT-OP-E Functional Tests Start: 11/28/23 19:07 Freq: Status: Active Protocol: Document 01/05/24 09:07 LRN (Rec: 01/05/24 18:48 LRN [id number]) Functional Tests Timed Up and Go (TUG) Score 37 Comments Pt having L LB/buttock pain TUG Impairment Rating 100% Impaired (Score 20) PT-OP-G Mobility & Gait Start: 11/28/23 19:07 Freq: Status: Active Protocol: Document 12/14/23 14:36 LRN (Rec: 12/14/23 16:24 LRN [id number]) OP Gait Assessment Assistive Devices Assistive Device 4 Wheeled Walker PT-OP-K Range of Motion Start: 11/28/23 19:07 Freq: Status: Active Protocol: Document 12/28/23 14:38 LRN (Rec: 12/28/23 14:52 LRN [id number]) Ankle and Foot Goniometric Range of Motion Ankle and Foot Right Active Testing Position Supine Dorsiflexion with Knee Extended 2 Plantarflexion 45 Inversion 20 Eversion 10 Left Active Testing Position Supine Dorsiflexion with Knee Extended 3 Plantarflexion 40 Inversion 22 Eversion 15 PT-OP-M Strength Start: 11/28/23 19:07 Freq: Status: Active Protocol: Document 12/14/23 14:36 LRN (Rec: 12/14/23 16:24 LRN [id number]) Knee Strength Knee Manual Muscle Testing Right Comments Strength is 5/5 Left Comments Strength is 5/5 Ankle/Foot Strength Ankle and Foot Manual Muscle Testing Right Comments Strength is 5/5 Left Comments Strength is 5/5 PT-OP-Q Treatments Start: 11/28/23 19:07 Freq: Status: Active Protocol: Document 02/01/24 14:37 LRN (Rec: 02/01/24 15:36 LRN [id number]) Therapeutic Exercises Sitting Exercises Heel/toe raises Sitting Exercise Name Heel/toe raises (issued HEP HO ) Side bilateral Resistance 3-5 isometric hold Reps/Minutes 8' Comments cues for slow eccentric control HS Stretch Sitting Exercise Name HOld due to mild L sciatic pain LAQ Sitting Exercise Name Alternating LAQ Side bilateral Resistance Lev 4 TB Reps/Minutes 15x 2 Comments Pt able to do painfree, L weaker than R. Seated ABD Sitting Exercise Name Holding hips in AB, feet shoulder width apart Resistance LVL 4 Reps/Minutes 10 SH x 10, 1 min hold, x3 Comments cues for alignment with setup, cues for eccentric control Sit<>stand Sitting Exercise Name without use of UE assist. Equipment Used from black table, hips 90/90 Reps/Minutes 10x Standing Exercises Heel Raises Standing Exercise Name Standing toe/heel raises Side bilateral Reps/Minutes 5x each Comments Use of locked FWW for balance and close SBA Neuro Re-Education Treatment Balance Activities Static Balance Details NBOS Surface stable Equipment // bars Comments 1.NBOS eyes on floor>w/fwd gaze 2.NBOS head turns- rotation/ nods hands hovering above // bars, occasional UE assist prn, close SBA/CGA, // bars, gait belt donned cues core stabilization Dynamic balance Details fwd/retro ambulation Comments Hands hovering, occasional UE assist prn, gait belt, SBA. Cues for step length, toes fwd & foot clearance PT-OP-T Assessment and Plan Start: 11/28/23 19:07 Freq: Status: Active Protocol: Document 02/01/24 14:37 LRN (Rec: 02/01/24 15:36 LRN [id number]) Physical Therapy Assessment Goals Two Impairment Decreased function placing pt at risk of falling (TUG 36 secs) Short Term Goal (STG) Pt will demonstrate safe and proper stand<>sit transfer and improved endurance and safety with gait with a 30 Sec STS of 12x or more, using a 4WW, his normal walking shoes, hands across chest. 12/19/23: Pt able to sit<> stand without UE's but has uncontrolled sit. 12/22/23:7 STS's in 30 secs no UE's. 12/28/23: Walking up/down the hallway several times a week. 01/05/24: Pt is not able to tolerate sit to stand test today. 01/23/2023: x7 STS 30secs 01/30/24: x8 STS 30 standard chair height STG Duration 01/26/24 progressed 12/19/23 Long-Term Goal (LTG) Pt will demonstrate improved balance and safety with gait with TUG score of 30 or less, using a 4WW, his normal walking shoes. 01/05/24: TUG 37 secs. One Impairment Pt lacks appropriate self care HEP. Short Term Goal (STG) Pt will be educated and will demonstrate proper sit<>stand transfers and reaching ability . 12/19/23: Pt able to perform sit<>stand without UE assist. Needs training for stand>sit to control descent. 01/05/24: Must use hands to transfer due to LLBP & LE pain . 01/30/24: cued pt for increased glute activation to stand upright STG Duration 01/26/24 progressed 12/19/23 Improvement Rn Goal (LTG) Pt will be independent in an effective self care HEP for core/knee/ankle strengthening and ankle (IV/EV)mobility ex's . 01/30/24: Seated heel/toe raises w/isometric hold- issued HEP HO LTG Duration 02/23/24 Assessment Summary Assessment 68 yo male who is receiving rehab for increasing fall history within the past 3 months, mainly due to misjudgement of reaching. Neuropathy of the feet and R sciatic pain hinders his progress to improve balance. Today, pt is doing well with new HEP of sitting heel/toe isometric lifts. He tolerated more ex's well. Pt reporting sleep better after training in sleeping positions. Physical Therapy Plan Frequency and Duration Frequency of Treatment 2x/Week Duration of treatment (weeks) 7 Plan of Care Start Date 01/05/24 Plan of Care End Date 02/23/24 Next Visit Focus/Plan Next Note Type Treatment Note Next Visit Plan New POC needed at next PN (3-4 visits). Monitor back pain ( PT to assess back pain at PN). Continue to progress balance . Progress hip and knee strength as able, initiate core strength. Ex: Balance & ankle strengthening, knee, core strengthening to improve endurance and safety with gait . DC'd ankle stretches.
--- NOTE | 2024-02-06 16:46 | PT.OTN ---
Current Diagnoses Muscle weakness (generalized) (02/06/24) Other abnormalities of gait and mobility (02/06/24) Physical Therapy Treatment Note PT-OP-A Visit Information Start: 11/28/23 19:07 Freq: Status: Active Protocol: Document 02/06/24 14:39 SW (Rec: 02/06/24 15:19 SW [id number]) Out-Patient Physical Therapy Visit Information Visit Information Visit Type Treatment Note Visit Note Pt attends with tennis shoes and 4WW. Visit Start Time 14:36 Visit Stop Time 14:16 Visit Number 08/29 after PN Number of FENDER MECHANIC Visits 1 Precautions Precautions Callous on R 1st Metatarsal, ending wound care treatment 2 wks from 12/28/23. Diabetes II , neuropathy, Fall history with last 2 in Oct 2023, declared healed chronic ulcer of R foot as of last week. PT-OP-B Current Condition Start: 11/28/23 19:07 Freq: Status: Active Protocol: Document 12/14/23 14:36 LRN (Rec: 12/14/23 16:24 LRN [id number]) Current Condition History of Current Condition Onset Date 09/14/2023 Current Complaints Increased falling episodes History of Current Condition Pt is a resident at [facility] due to chronic diabetic ulcer in R foot. 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 He has had 5-6 falls this year while walking except once he was getting out of bed and reached for walker that was too far away and once in standing was reaching to turn off his airconditioner, another time failed to notice a curb and fell. His last falls was in Oct, fell twice within 2 hrs (using bathroom and getting out of bed) and was sent to ER and found he had high level of amonia. Previous falls was also partly found to be due to neuropathy of feet. He does have an electric wheelchair but is not able to use in his apartment. He has reduced his Primadone for essential tremors and that has been okay. States his wgt is 285#. Treatment Goals Patient/Caregiver Goals Pt goal: See if there is anything he can do to alleviate his potential for falls. Used to use a cane or walking stick, but since he has had more falls, he is using a 4WW. Current Functional Impairments (Reported) Functional Limitations- ADL's Makes own bed and walks around the bed. Functional Limitations- Mobility/Gait Walks around appt but always holds onto something. Doesn't walk around free often, uses 4WW mostly. Can walk to trim die maker in the morning ~ 10'. Uses walker to walk to upstairs part of appt and down to dining theodore. Not walking up/down hallway because of fear of getting an ulcer in R foot (previously walked in 2.5 minutes). Hasn't had to test his balance, but feels like his balance has been worse, but is better since being treated for high amonia. Personal Factors Other Personal Factors That May Effect Lives at [facility] assisted Therapy/Recovery living. Ambs with 4WW, using electric w/c if having to walk too far. PT-OP-C Subjective Start: 11/28/23 19:07 Freq: Status: Active Protocol: Document 02/06/24 14:39 SW (Rec: 02/06/24 15:19 SW [id number]) OP-PT Subjective Patient Comments Patient Comments Pt reports pain in back going down left leg this morning, nothing after. Pt reports drop in blood sugar before lunch, tested after lunch within safe limit to exercise. PT-OP-E Functional Tests Start: 11/28/23 19:07 Freq: Status: Active Protocol: Document 01/05/24 09:07 LRN (Rec: 01/05/24 18:48 LRN [id number]) Functional Tests Timed Up and Go (TUG) Score 37 Comments Pt having L LB/buttock pain TUG Impairment Rating 100% Impaired (Score 20) PT-OP-G Mobility & Gait Start: 11/28/23 19:07 Freq: Status: Active Protocol: Document 12/14/23 14:36 LRN (Rec: 12/14/23 16:24 LRN [id number]) OP Gait Assessment Assistive Devices Assistive Device 4 Wheeled Walker PT-OP-K Range of Motion Start: 11/28/23 19:07 Freq: Status: Active Protocol: Document 12/28/23 14:38 LRN (Rec: 12/28/23 14:52 LRN [id number]) Ankle and Foot Goniometric Range of Motion Ankle and Foot Right Active Testing Position Supine Dorsiflexion with Knee Extended 2 Plantarflexion 45 Inversion 20 Eversion 10 Left Active Testing Position Supine Dorsiflexion with Knee Extended 3 Plantarflexion 40 Inversion 22 Eversion 15 PT-OP-M Strength Start: 11/28/23 19:07 Freq: Status: Active Protocol: Document 12/14/23 14:36 LRN (Rec: 12/14/23 16:24 LRN [id number]) Knee Strength Knee Manual Muscle Testing Right Comments Strength is 5/5 Left Comments Strength is 5/5 Ankle/Foot Strength Ankle and Foot Manual Muscle Testing Right Comments Strength is 5/5 Left Comments Strength is 5/5 PT-OP-Q Treatments Start: 11/28/23 19:07 Freq: Status: Active Protocol: Document 02/06/24 14:39 SW (Rec: 02/06/24 15:19 SW [id number]) Therapeutic Exercises Sitting Exercises Core Sitting Exercise Name Palloff w/out press, Anti Rotation Side bilateral Resistance FENDER MECHANIC Equipment Used seated in mesh chair Reps/Minutes x5 ea Comments good posture and TA activation prior, holding resistance close to trunk HS Curl Sitting Exercise Name HS curl- initiated in PT today Side bilateral Resistance Lvl 4 TB Comments cues for LE alignment, slow controlled movement TA tightening Sitting Exercise Name TA tightening Reps/Minutes 10 x 3 hold Comments cues for good posture, breathwork Heel/toe raises Sitting Exercise Name Heel/toe raises- reviewed ( issued HEP HO) Side bilateral Resistance 3-5 isometric hold Reps/Minutes 8' Comments cues for slow eccentric control LAQ Sitting Exercise Name Alternating LAQ Side bilateral Resistance Lev 4 TB Reps/Minutes 15x 2 Comments painfree, some cramping reported in R quad with end reps Sit<>stand Sitting Exercise Name without use of UE assist. Equipment Used from black table, hips 90/90 Reps/Minutes 10x Neuro Re-Education Treatment Balance Activities Static Balance Details NBOS Surface stable Equipment // bars Comments 1.NBOS eyes on floor>w/fwd gaze 2.NBOS head turns- rotation/ nods 3.Tandem hands hovering above // bars, occasional UE assist prn, close SBA/CGA, // bars, gait belt donned cues core stabilization PT-OP-T Assessment and Plan Start: 11/28/23 19:07 Freq: Status: Active Protocol: Document 02/06/24 14:39 SW (Rec: 02/06/24 15:19 SW [id number]) Physical Therapy Assessment Goals Two Impairment Decreased function placing pt at risk of falling (TUG 36 secs) Short Term Goal (STG) Pt will demonstrate safe and proper stand<>sit transfer and improved endurance and safety with gait with a 30 Sec STS of 12x or more, using a 4WW, his normal walking shoes, hands across chest. 12/19/23: Pt able to sit<> stand without UE's but has uncontrolled sit. 12/22/23:7 STS's in 30 secs no UE's. 12/28/23: Walking up/down the hallway several times a week. 01/05/24: Pt is not able to tolerate sit to stand test today. 01/23/2023: x7 STS 30secs 01/30/24: x8 STS 30 standard chair height STG Duration 01/26/24 progressed 12/19/23 Effervescent Salts Compounder Goal (LTG) Pt will demonstrate improved balance and safety with gait with TUG score of 30 or less, using a 4WW, his normal walking shoes. 01/05/24: TUG 37 secs. One Impairment Pt lacks appropriate self care HEP. Short Term Goal (STG) Pt will be educated and will demonstrate proper sit<>stand transfers and reaching ability . 12/19/23: Pt able to perform sit<>stand without UE assist. Needs training for stand>sit to control descent. 01/05/24: Must use hands to transfer due to LLBP & LE pain . 01/30/24: cued pt for increased glute activation to stand upright 02/06/24: Pt required increased cueing this session for carryover of STS mechanics STG Duration 01/26/24 Effervescent Salts Compounder Goal (LTG) Pt will be independent in an effective self care HEP for core/knee/ankle strengthening and ankle (IV/EV)mobility ex's . 01/30/24: Seated heel/toe raises w/isometric hold- issued HEP HO LTG Duration 02/23/24 Assessment Summary Assessment Pt challenged with STS this session, pt required increased cueing to coordinate movement and to ascend into a full standing position, 90/90 starting position, x2 multiple attempts using increased momentum, improved with cues, though pt would benefit from continued focus to build strength and for carryover of proper form. Physical Therapy Plan Frequency and Duration Frequency of Treatment 2x/Week Duration of treatment (weeks) 7 Plan of Care Start Date 01/05/24 Plan of Care End Date 02/23/24 Therapeutic Interventions Therapeutic Interventions Balance Training,Home Exercise Program,Neuromuscular Re- education,Self-Care/Home Management,Soft Tissue Mobilization,Therapeutic Activities,Therapeutic Exercises Modalities Cold Pack/Ice Massage,Hot Packs Next Visit Focus/Plan Next Note Type Treatment Note Next Visit Plan New POC needed at next PN (3-4 visits). Monitor back pain ( PT to assess back pain at PN). Review STS form carryover and reaching for pt STG assessment prn, Continue to progress balance. Progress hip and knee strength as able, initiate core strength. Ex: Balance & ankle strengthening, knee, core strengthening to improve endurance and safety with gait . DC'd ankle stretches.
--- NOTE | 2024-02-08 15:50 | PT.OTN ---
Current Diagnoses Muscle weakness (generalized) (02/08/24) Other abnormalities of gait and mobility (02/08/24) Physical Therapy Treatment Note PT-OP-A Visit Information Start: 11/28/23 19:07 Freq: Status: Active Protocol: Document 02/08/24 13:06 LRN (Rec: 02/08/24 13:50 LRN [id number]) Out-Patient Physical Therapy Visit Information Visit Information Visit Type Treatment Note Visit Start Time 13:06 Visit Stop Time 13:47 Visit Number 09/29 after PN Evaluation Information Evaluation Date 12/14/23 Precautions Precautions Sciatic pain bilateral or one side at a time, Callous on R 1st Metatarsal, ending wound care treatment 2 wks from 12/27. Diabetes II, neuropathy, Fall history with last 2 in Oct 2023, declared healed chronic ulcer of R foot as of last week. PT-OP-B Current Condition Start: 11/28/23 19:07 Freq: Status: Active Protocol: Document 12/14/23 14:36 LRN (Rec: 12/14/23 16:24 LRN [id number]) Current Condition History of Current Condition Onset Date 09/14/2023 Current Complaints Increased falling episodes History of Current Condition Pt is a resident at [facility] due to chronic diabetic ulcer in R foot. 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 He has had 5-6 falls this year while walking except once he was getting out of bed and reached for walker that was too far away and once in standing was reaching to turn off his airconditioner, another time failed to notice a curb and fell. His last falls was in Oct, fell twice within 2 hrs (using bathroom and getting out of bed) and was sent to ER and found he had high level of amonia. Previous falls was also partly found to be due to neuropathy of feet. He does have an electric wheelchair but is not able to use in his apartment. He has reduced his Primadone for essential tremors and that has been okay. States his wgt is 285#. Treatment Goals Patient/Caregiver Goals Pt goal: See if there is anything he can do to alleviate his potential for falls. Used to use a cane or walking stick, but since he has had more falls, he is using a 4WW. Current Functional Impairments (Reported) Functional Limitations- ADL's Makes own bed and walks around the bed. Functional Limitations- Mobility/Gait Walks around appt but always holds onto something. Doesn't walk around free often, uses 4WW mostly. Can walk to venetian blind maker in the morning ~ 10'. Uses walker to walk to upstairs part of appt and down to dining theodore. Not walking up/down hallway because of fear of getting an ulcer in R foot (previously walked in 2.5 minutes). Hasn't had to test his balance, but feels like his balance has been worse, but is better since being treated for high amonia. Personal Factors Other Personal Factors That May Effect Lives at [facility] assisted Therapy/Recovery living. Ambs with 4WW, using electric w/c if having to walk too far. PT-OP-C Subjective Start: 11/28/23 19:07 Freq: Status: Active Protocol: Document 02/08/24 13:06 LRN (Rec: 02/08/24 15:17 LRN [id number]) OP-PT Subjective Patient Comments Patient Comments States he woke w/o back pain. Patient Questionnaires Lower Extremity Functional Scale LEFS Score 22 LEFS Impairment 60 to 79% Impaired (Score 17- 31) Oswestry Low Back Index Oswestry Score 24/50 = 48/100 Oswestry Impairment 40 to 59% Impaired (Score 40- 59) OP-PT Pain Assessment Pain Assessment Grid Paper Pain Assessment Grid Completed Yes Location L welfare eligibility interviewer/lateral thigh Pain Location Details Upper posterior and lateral thigh. Intensity 3 Scale Used Numeric (0 - 10) PT-OP-E Functional Tests Start: 11/28/23 19:07 Freq: Status: Active Protocol: Document 01/05/24 09:07 LRN (Rec: 01/05/24 18:48 LRN [id number]) Functional Tests Timed Up and Go (TUG) Score 37 Comments Pt having L LB/buttock pain TUG Impairment Rating 100% Impaired (Score 20) PT-OP-G Mobility & Gait Start: 11/28/23 19:07 Freq: Status: Active Protocol: Document 12/14/23 14:36 LRN (Rec: 12/14/23 16:24 LRN [id number]) OP Gait Assessment Assistive Devices Assistive Device 4 Wheeled Walker PT-OP-K Range of Motion Start: 11/28/23 19:07 Freq: Status: Active Protocol: Document 12/28/23 14:38 LRN (Rec: 12/28/23 14:52 LRN [id number]) Ankle and Foot Goniometric Range of Motion Ankle and Foot Right Active Testing Position Supine Dorsiflexion with Knee Extended 2 Plantarflexion 45 Inversion 20 Eversion 10 Left Active Testing Position Supine Dorsiflexion with Knee Extended 3 Plantarflexion 40 Inversion 22 Eversion 15 PT-OP-M Strength Start: 11/28/23 19:07 Freq: Status: Active Protocol: Document 12/14/23 14:36 LRN (Rec: 12/14/23 16:24 LRN [id number]) Knee Strength Knee Manual Muscle Testing Right Comments Strength is 5/5 Left Comments Strength is 5/5 Ankle/Foot Strength Ankle and Foot Manual Muscle Testing Right Comments Strength is 5/5 Left Comments Strength is 5/5 PT-OP-Q Treatments Start: 11/28/23 19:07 Freq: Status: Active Protocol: Document 02/08/24 13:06 LRN (Rec: 02/08/24 13:50 LRN [id number]) Therapeutic Exercises Sitting Exercises Sit<>stand Reps/Minutes 10x 2 Comments Webbed chair, tennis shoes, no use of hands. Neuro Re-Education Treatment Balance Activities Dynamic balance Details Steping over hurdles. Equipment Hurdles Reps/Duration 15' Standing Reach balance Details Standing reach Surface level Reps/Duration 3' Comments REach is 11 inches PT-OP-T Assessment and Plan Start: 11/28/23 19:07 Freq: Status: Active Protocol: Document 02/08/24 13:06 LRN (Rec: 02/08/24 13:50 LRN [id number]) Physical Therapy Assessment Rehab Potential Rehabilitation Potential Good Evaluation Complexity Number of Personal Factors/Comorbidities 3 or More Number of Body Systems Impaired 4 or More Clinical Presentation at Evaluation Evolving Impairments Impairments Activity Tolerance,Balance, Gait,Pain,ROM,Strength Goals Two Impairment Decreased function placing pt at risk of falling (TUG 36 secs) Short Term Goal (STG) Pt will demonstrate safe and proper stand<>sit transfer and improved endurance and safety with gait with a 30 Sec STS of 12x or more, using a 4WW, his normal walking shoes, hands across chest. 12/19/23: Pt able to sit<> stand without UE's but has uncontrolled sit. 12/22/23: 7 STS's in 30 secs no UE's. 12/28/23: Walking up/down the hallway several times a week. 01/05/24: Pt is not able to tolerate sit to stand test today. 01/23/2023: x7 STS 30secs 01/30/24: x8 STS 30 standard chair height. 02/08/24: 30 STS - 8x Webbed chair. STG Duration 02/29/24 progressed 02/08/24 (same as 01/30/24) Residential Goal (LTG) Pt will demonstrate improved balance and safety with gait with TUG score of 30 or less, using a 4WW, his normal walking shoes. 01/05/24: TUG 37 secs. 02/08/24: 30 STS - 8 reps. LTG Duration 03/22/24 progressed 02/08/24 One Impairment Pt lacks appropriate self care HEP. Short Term Goal (STG) Pt will be educated and will demonstrate proper sit<>stand transfers and reaching ability . 12/19/23: Pt able to perform sit<>stand without UE assist. Needs training for stand>sit to control descent. 01/05/24: Must use hands to transfer due to LLBP & LE pain . 01/30/24: cued pt for increased glute activation to stand upright 02/06/24: Pt required increased cueing this session for carryover of STS mechanics . 02/08/24: Standing reach is 11 inches (initially was 3 inches). Pt able to transfer sit <> stand w/o use of hands. STG Duration 03/08/24 02/08/24: Partially met. (needs proper sit<>stand) T Rail [place] Goal (LTG) Pt will be independent in an effective self care HEP for core/knee/ankle strengthening and ankle (IV/EV)mobility ex's . 01/30/24: Seated heel/toe raises w/isometric hold- issued HEP HO LTG Duration 03/22/24 progressed 01/30/24. Assessment Summary Assessment Pt is a 68 yo male who is receiving rehab for increasing fall history, mainly due to misjudgement of reaching and foot placement. Neuropathy of the feet and occasional sudden onset of sciatic pain hindered his progress to improve balance because of difficulty with his ability to identify feet placement and sciatic pain. His sciatic pain varies from left to right , but mostly on his L side. The pt shows some improvement of LE endurance since starting therapy as his 30 sec STS test improved from 7 to 8 rep. His balance has improved as noted with safe standing reach initially 3 inches and is now 11 inches. As expected his progress has been slow as previously explained; therefore the pt would benefit from 6 more weeks of skilled physical therapy ( extra time due to holiday schedules), to improve LE ms endurance and balance by strengthening his core, ankle and other LE muscles. Physical Therapy Plan Frequency and Duration Frequency of Treatment 2x/Week Duration of treatment (weeks) 6 Plan of Care Start Date 02/08/24 Plan of Care End Date 03/22/24 Therapeutic Interventions Therapeutic Interventions Balance Training,Home Exercise Program,Neuromuscular Re- education,Self-Care/Home Management,Soft Tissue Mobilization,Therapeutic Exercises Next Visit Focus/Plan Next Note Type Treatment Note Next Visit Plan 6 wks of focus on improving endurance of LE muscles and improving balance with core, ankle and other LE muscle strengthening, and progression onto a self care HEP. Review STS form carryover for pt STG assessment prn. Avoid onset of back/sciatic pain with exercises.
--- NOTE | 2024-02-20 16:56 | PT.OTN ---
Current Diagnoses Muscle weakness (generalized) (02/20/24) Other abnormalities of gait and mobility (02/20/24) Physical Therapy Treatment Note PT-OP-A Visit Information Start: 11/28/23 19:07 Freq: Status: Active Protocol: Document 02/20/24 13:46 LRN (Rec: 02/20/24 14:31 LRN [id number]) Out-Patient Physical Therapy Visit Information Visit Information Visit Type Treatment Note Visit Start Time 13:46 Visit Stop Time 14:28 Visit Number 1503/01 after PN Evaluation Information Evaluation Date 12/14/23 Precautions Precautions Sciatic pain bilateral or one side at a time, Callous on R 1st Metatarsal, ending wound care treatment 2 wks from 12/27. Diabetes II, neuropathy, Fall history with last 2 in Oct 2023, declared healed chronic ulcer of R foot as of last week. PT-OP-B Current Condition Start: 11/28/23 19:07 Freq: Status: Active Protocol: Document 12/14/23 14:36 LRN (Rec: 12/14/23 16:24 LRN [id number]) Current Condition History of Current Condition Onset Date 09/14/2023 Current Complaints Increased falling episodes History of Current Condition Pt is a resident at [facility] due to chronic diabetic ulcer in R foot. 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 He has had 5-6 falls this year while walking except once he was getting out of bed and reached for walker that was too far away and once in standing was reaching to turn off his airconditioner, another time failed to notice a curb and fell. His last falls was in Oct, fell twice within 2 hrs (using bathroom and getting out of bed) and was sent to ER and found he had high level of amonia. Previous falls was also partly found to be due to neuropathy of feet. He does have an electric wheelchair but is not able to use in his apartment. He has reduced his Primadone for essential tremors and that has been okay. States his wgt is 285#. Treatment Goals Patient/Caregiver Goals Pt goal: See if there is anything he can do to alleviate his potential for falls. Used to use a cane or walking stick, but since he has had more falls, he is using a 4WW. Current Functional Impairments (Reported) Functional Limitations- ADL's Makes own bed and walks around the bed. Functional Limitations- Mobility/Gait Walks around appt but always holds onto something. Doesn't walk around free often, uses 4WW mostly. Can walk to cabinetmaker supervisor in the morning ~ 10'. Uses walker to walk to upstairs part of appt and down to dining theodore. Not walking up/down hallway because of fear of getting an ulcer in R foot (previously walked in 2.5 minutes). Hasn't had to test his balance, but feels like his balance has been worse, but is better since being treated for high amonia. Personal Factors Other Personal Factors That May Effect Lives at [facility] assisted Therapy/Recovery living. Ambs with 4WW, using electric w/c if having to walk too far. PT-OP-C Subjective Start: 11/28/23 19:07 Freq: Status: Active Protocol: Document 02/20/24 13:46 LRN (Rec: 02/20/24 14:31 LRN [id number]) OP-PT Subjective Patient Comments Patient Comments States he hasn't fallen in quite a few months, so feels he has made progress. One of his meds dosage has been lowerd with a side effect of better balance, so he feels less concerned with his balance. Can't make sudden turns and touches surfaces as he is moving around the apt. still very cautious. Can make the bed w/o using the walker but uses the bed for balance. Patient Questionnaires Other Questionnaire Name and Score Falls Efficacy Scale - score is 49/64. PT-OP-E Functional Tests Start: 11/28/23 19:07 Freq: Status: Active Protocol: Document 02/20/24 13:46 LRN (Rec: 02/20/24 14:31 LRN [id number]) Functional Tests 30 Second Sit to Stand Test Score 7x Timed Up and Go (TUG) Score 28 (31 secs w/o walker) Comments Used FWW PT-OP-G Mobility & Gait Start: 11/28/23 19:07 Freq: Status: Active Protocol: Document 12/14/23 14:36 LRN (Rec: 12/14/23 16:24 LRN [id number]) OP Gait Assessment Assistive Devices Assistive Device 4 Wheeled Walker PT-OP-K Range of Motion Start: 11/28/23 19:07 Freq: Status: Active Protocol: Document 12/28/23 14:38 LRN (Rec: 12/28/23 14:52 LRN [id number]) Ankle and Foot Goniometric Range of Motion Ankle and Foot Right Active Testing Position Supine Dorsiflexion with Knee Extended 2 Plantarflexion 45 Inversion 20 Eversion 10 Left Active Testing Position Supine Dorsiflexion with Knee Extended 3 Plantarflexion 40 Inversion 22 Eversion 15 PT-OP-M Strength Start: 11/28/23 19:07 Freq: Status: Active Protocol: Document 12/14/23 14:36 LRN (Rec: 12/14/23 16:24 LRN [id number]) Knee Strength Knee Manual Muscle Testing Right Comments Strength is 5/5 Left Comments Strength is 5/5 Ankle/Foot Strength Ankle and Foot Manual Muscle Testing Right Comments Strength is 5/5 Left Comments Strength is 5/5 PT-OP-Q Treatments Start: 11/28/23 19:07 Freq: Status: Active Protocol: Document 02/20/24 13:46 LRN (Rec: 02/20/24 14:31 LRN [id number]) Therapeutic Exercises Sitting Exercises Sit<>stand Reps/Minutes 10' Other Exercises Gait endurance Other Exercise Name 20' increments with rests between Reps/Minutes 13' Neuro Re-Education Treatment Balance Activities Dynamic balance Details Steping over hurdles. Equipment Hurdles, //bars Reps/Duration 16' Comments With changing of UE support: -UE asst -1 UE asst at a time -Hands hovering PT-OP-T Assessment and Plan Start: 11/28/23 19:07 Freq: Status: Active Protocol: Document 02/20/24 13:46 LRN (Rec: 02/20/24 14:31 LRN [id number]) Physical Therapy Assessment Goals Two Impairment Decreased function placing pt at risk of falling (TUG 36 secs) Short Term Goal (STG) Pt will demonstrate safe and proper stand<>sit transfer and improved endurance and safety with gait with a 30 Sec STS of 12x or more, using a 4WW, his normal walking shoes, hands across chest. 12/19/23: Pt able to sit<> stand without UE's but has uncontrolled sit. 12/22/23: 7 STS's in 30 secs no UE's. 12/28/23: Walking up/down the hallway several times a week. 01/05/24: Pt is not able to tolerate sit to stand test today. 01/23/2023: x7 STS 30secs 01/30/24: x8 STS 30 standard chair height. 02/08/24: 30 STS - 8x Webbed chair. 02/20/24: x7 STS in 30 secs. STG Duration 02/29/24 progressed 02/08/24 (same as 01/30/24) Angle Bender Goal (LTG) Pt will demonstrate improved balance and safety with gait with TUG score of 30 or less, using a 4WW, his normal walking shoes. 01/05/24: TUG 37 secs. 02/08/24: 30 STS - 8 reps. 02/20/24; TUG 28 secs w/ walker and walking tennis shoes, 31 secs w/o walker. LTG Duration 03/22/24 progressed 02/08/24 One Impairment Pt lacks appropriate self care HEP. Short Term Goal (STG) Pt will be educated and will demonstrate proper sit<>stand transfers and reaching ability . 12/19/23: Pt able to perform sit<>stand without UE assist. Needs training for stand>sit to control descent. 01/05/24: Must use hands to transfer due to LLBP & LE pain . 01/30/24: cued pt for increased glute activation to stand upright 02/06/24: Pt required increased cueing this session for carryover of STS mechanics . 02/08/24: Standing reach is 11 inches (initially was 3 inches). Pt able to transfer sit <> stand w/o use of hands. STG Duration 03/08/24 02/08/24: Partially met. (needs proper sit<>stand) Senior Care Goal (LTG) Pt will be independent in an effective self care HEP for core/knee/ankle strengthening and ankle (IV/EV)mobility ex's . 01/30/24: Seated heel/toe raises w/isometric hold- issued HEP HO LTG Duration 03/22/24 progressed 01/30/24. Assessment Summary Assessment Pt is a 68 yo male who is receiving rehab for increasing fall history, for improving balance and endurance with gait. Misjudgement of reaching and foot placement has been an issue in the past. The has not reported any fall for a few months. Today he attends with slowness and reportedly problems with his bowels due to change in his medications; therefore he is moving more slowly today than usual and his perception of his fall possibility per worsened score on his Falls Efficacy Scale ( 49). Physical Therapy Plan Frequency and Duration Frequency of Treatment 2x/Week Duration of treatment (weeks) 6 Plan of Care Start Date 02/08/24 Plan of Care End Date 03/22/24 Next Visit Focus/Plan Next Note Type Treatment Note Next Visit Plan Focus on improving endurance of LE muscles and improving balance with core, ankle and other LE muscle strengthening, and progression onto a self care HEP. Review STS form carryover for pt STG assessment prn. Avoid onset of back/sciatic pain with exercises.
--- NOTE | 2024-03-19 18:13 | PT.OTN ---
Current Diagnoses Muscle weakness (generalized) (03/19/24) Other abnormalities of gait and mobility (03/19/24) Physical Therapy Treatment Note PT-OP-A Visit Information Start: 11/28/23 19:07 Freq: Status: Active Protocol: Document 03/19/24 12:00 LRN (Rec: 03/19/24 12:29 LRN [id number]) Out-Patient Physical Therapy Visit Information Visit Information Visit Type Treatment Note Visit Start Time 14:42 Visit Stop Time 15:04 Visit Number 04/01 after PN Evaluation Information Evaluation Date 12/14/23 Precautions Precautions Sciatic pain bilateral or one side at a time, Callous on R 1st Metatarsal, ending wound care treatment 2 wks from 12/27. Diabetes II, neuropathy, Fall history with last 2 in Oct 2023, declared healed chronic ulcer of R foot as of last week. PT-OP-B Current Condition Start: 11/28/23 19:07 Freq: Status: Active Protocol: Document 12/14/23 14:36 LRN (Rec: 12/14/23 16:24 LRN [id number]) Current Condition History of Current Condition Onset Date 09/14/2023 Current Complaints Increased falling episodes History of Current Condition Pt is a resident at [facility] due to chronic diabetic ulcer in R foot. 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 He has had 5-6 falls this year while walking except once he was getting out of bed and reached for walker that was too far away and once in standing was reaching to turn off his airconditioner, another time failed to notice a curb and fell. His last falls was in Oct, fell twice within 2 hrs (using bathroom and getting out of bed) and was sent to ER and found he had high level of amonia. Previous falls was also partly found to be due to neuropathy of feet. He does have an electric wheelchair but is not able to use in his apartment. He has reduced his Primadone for essential tremors and that has been okay. States his wgt is 285#. Treatment Goals Patient/Caregiver Goals Pt goal: See if there is anything he can do to alleviate his potential for falls. Used to use a cane or walking stick, but since he has had more falls, he is using a 4WW. Current Functional Impairments (Reported) Functional Limitations- ADL's Makes own bed and walks around the bed. Functional Limitations- Mobility/Gait Walks around appt but always holds onto something. Doesn't walk around free often, uses 4WW mostly. Can walk to sail maker in the morning ~ 10'. Uses walker to walk to upstairs part of appt and down to dining theodore. Not walking up/down hallway because of fear of getting an ulcer in R foot (previously walked in 2.5 minutes). Hasn't had to test his balance, but feels like his balance has been worse, but is better since being treated for high amonia. Personal Factors Other Personal Factors That May Effect Lives at [facility] assisted [facility]/Recovery living. Ambs with 4WW, using electric w/c if having to walk too far. PT-OP-C Subjective Start: 11/28/23 19:07 Freq: Status: Active Protocol: Document 03/19/24 17:54 LRN (Rec: 03/19/24 15:19 LRN [id number]) OP-PT Subjective Patient Comments Patient Comments States since last visit he was admitted to hospital for 2 nights because of high ammonia levels with a change in mentation. He is now being treated for cellulitis of the R 1st metatarsal of the big toe for the past few days. He will is taking antibiotics every 6 hrs and will continue the med until 03/23/24. Pt agreeable to discharging from PT and will seek new referral to return to PT, once he has regained his strength and ability to walk down his hallway, and his infection cleared. PT-OP-E Functional Tests Start: 11/28/23 19:07 Freq: Status: Active Protocol: Document 02/20/24 13:46 LRN (Rec: 02/20/24 14:31 LRN [id number]) Functional Tests 30 Second Sit to Stand Test Score 7x Timed Up and Go (TUG) Score 28 (31 secs w/o walker) Comments Used FWW PT-OP-G Mobility & Gait Start: 11/28/23 19:07 Freq: Status: Active Protocol: Document 12/14/23 14:36 LRN (Rec: 12/14/23 16:24 LRN [id number]) OP Gait Assessment Assistive Devices Assistive Device 4 Wheeled Walker PT-OP-K Range of Motion Start: 11/28/23 19:07 Freq: Status: Active Protocol: Document 12/28/23 14:38 LRN (Rec: 12/28/23 14:52 LRN [id number]) Ankle and Foot Goniometric Range of Motion Ankle and Foot Right Active Testing Position Supine Dorsiflexion with Knee Extended 2 Plantarflexion 45 Inversion 20 Eversion 10 Left Active Testing Position Supine Dorsiflexion with Knee Extended 3 Plantarflexion 40 Inversion 22 Eversion 15 PT-OP-M Strength Start: 11/28/23 19:07 Freq: Status: Active Protocol: Document 12/14/23 14:36 LRN (Rec: 12/14/23 16:24 LRN [id number]) Knee Strength Knee Manual Muscle Testing Right Comments Strength is 5/5 Left Comments Strength is 5/5 Ankle/Foot Strength Ankle and Foot Manual Muscle Testing Right Comments Strength is 5/5 Left Comments Strength is 5/5 PT-OP-Q Treatments Start: 11/28/23 19:07 Freq: Status: Active Protocol: Document 03/19/24 17:54 LRN (Rec: 03/19/24 15:19 LRN [id number]) Self-Care/Home Management Treatment Education Other Education Discussed with patient his PT plan of care and his current [facility] status. PT-OP-T Assessment and Plan Start: 11/28/23 19:07 Freq: Status: Active Protocol: Document 03/19/24 12:00 LRN (Rec: 03/19/24 12:29 LRN [id number]) Physical Therapy Assessment Goals Two Impairment Decreased function placing pt at risk of falling (TUG 36 secs) Short Term Goal (STG) Pt will demonstrate safe and proper stand<>sit transfer and improved endurance and safety with gait with a 30 Sec STS of 12x or more, using a 4WW, his normal walking shoes, hands across chest. 12/19/23: Pt able to sit<> stand without UE's but has uncontrolled sit. 12/22/23: 7 STS's in 30 secs no UE's. 12/28/23: Walking up/down the hallway several times a week. 01/05/24: Pt is not able to tolerate sit to stand test today. 01/23/2023: x7 STS 30secs 01/30/24: x8 STS 30 standard chair height. 02/08/24: 30 STS - 8x Webbed chair. 02/20/24: x7 STS in 30 secs. 03/19/24: Pt not appropriate to be assessed. STG Duration 02/29/24 (03/19/24: progressed 02/08/24, GOAL NOT MET) Group Home Goal (LTG) Pt will demonstrate improved balance and safety with gait with TUG score of 30 or less, using a 4WW, his normal walking shoes. 01/05/24: TUG 37 secs. 02/08/24: 30 STS - 8 reps. 02/20/24; TUG 28 secs w/ walker and walking tennis shoes, 31 secs w/o walker. 03/19/24: Pt not appropriate to be assessed. LTG Duration 03/22/24 (03/19/24: progressed 02/08/24, GOAL NOT MET) One Impairment Pt lacks appropriate self care HEP. Short Term Goal (STG) Pt will be educated and will demonstrate proper sit<>stand transfers and reaching ability . 12/19/23: Pt able to perform sit<>stand without UE assist. Needs training for stand>sit to control descent. 01/05/24: Must use hands to transfer due to LLBP & LE pain . 01/30/24: cued pt for increased glute activation to stand upright 02/06/24: Pt required increased cueing this session for carryover of STS mechanics . 02/08/24: Standing reach is 11 inches (initially was 3 inches). Pt able to transfer sit <> stand w/o use of hands. STG Duration 03/08/24 (03/19/24: Partially met 02/08/24) Cotton Inspector Goal (LTG) Pt will be independent in an effective self care HEP for core/knee/ankle strengthening and ankle (IV/EV)mobility ex's . 01/30/24: Seated heel/toe raises w/isometric hold- issued HEP HO. LTG Duration 03/22/24 (03/19/24: progressed 01/30/24, GOAL NOT MET) Assessment Summary Assessment Pt is a 68 yo male who was receiving rehab for increasing fall history, for improving balance and endurance with gait. Misjudgement of reaching and foot placement has been an issue in the past. The pt had not reported any falls for a few months at his last attended visit. Today, he attends after a month since his last visit reporting one time hospitalization and new onset of R big toe cellulitis. The pt felt nauseated at start of therapy and appeared slow and weak. Final assessment was deferred as pt was not feeling well. The pt is aware that he will need a new referral to return to physical therapy due to the change in his medical status; therefore he is being discharged from physical therapy today. Goals were not met. Physical Therapy Plan Discharge Physical Therapy Discharge Reasons Change in Medical Status Discharge Comments Thank you for your referral.
== END 2024-03-21 14:57 | disposition home or self-care (01) ==
LOC: PHYS 14:30
PROVIDERS: Family Provider Nurse Practitioner Family; PCP Nurse Practitioner Family; Referring Provider Internal Medicine; Visit Provider Internal Medicine
DX: R26.89 Other abnormalities of gait and mobility (principal); M62.81 Muscle weakness (generalized)
CPT/HCPCS: 97110; 97112; 97140; 97162; 97535; 99212

== ENCOUNTER 2024-04-08 12:28 | Observation (INO) | payer MEDICARE, MEDICAID, SELFPAY ==
[2024-03-05 12:49] VITALS: BMI 39.0
[2024-04-08] VITALS (10 sets, daily range): BP systolic 115–143; BP diastolic 53–76; PULSE 82–99; RESP 11–20; TEMP 36.2–37.7; O2SAT 93–98; BMI 38.5
--- NOTE | 2024-04-08 12:41 | DI.RAD.S_ITS ---
PROCEDURE: XR CHEST 1V INDICATIONS: altered mental status TECHNIQUE: One view of the chest was acquired. COMPARISON: [facility], CR, XR CHEST 1V, 03/05/2024, 12:19. FINDINGS: Surgical changes and devices: None. Lungs and pleura: Lungs are clear. No pleural effusions or pneumothorax. Mediastinum: Mediastinal contours appear normal. Heart size is normal. Bones and chest wall: No suspicious bony lesions. Overlying soft tissues appear unremarkable. IMPRESSION: No acute cardiopulmonary abnormality is seen. Dictated by: Otoniel Valadez M.D. on 04/08/2024 at 13:39 Approved by: Otoniel Valadez M.D. on 04/08/2024 at 13:39
[2024-04-08 12:48] LABS: Add Manual Diff / Slide Review NO; Basophils Absolute Auto 100 /uL (0-100); Basophils Percent Auto 0.6 % (0-2); Eosinophils Absolute Auto 1100 /uL (0-450); Hematocrit 34.7 % (41-53); Hemoglobin 11.9 g/dL (13.5-17.5); Lymphocytes Absolute Auto 2200 /uL (1100-4500); Lymphocytes Percent Auto 24.6 % (25-40); Mean Corpuscular HGB Conc 34.4 % (30-36); Mean Corpuscular Hemoglobin 31.7 PG (26-34); Mean Corpuscular Volume 92.1 fL (80-100); Monocytes Absolute Auto 700 /uL (0-900); Monocytes Percent Auto 7.8 % (3-14); Neutrophils Absolute Auto 5000 /uL (1500-7000); Platelet Count 151 X10^3/uL (150-400); Red Blood Cell Count 3.76 X10^6/uL (4.5-5.9); Red Cell Distribution Width 13.9 % (11.6-14.8)
--- NOTE | 2024-04-08 12:55 | EKG_ITS ---
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
[2024-04-08 12:56] LABS: Ammonia (NH3) 94 umol/L (9-30)
[2024-04-08 12:57] LABS: Alanine Aminotransferase 30 IU/L (<50); Albumin Globulin Ratio 1.5 (1.0-2.8); Alkaline Phosphatase 77 U/L (38-126); Aspartate Aminotransferase 33 IU/L (17-59); BUN Creatinine Ratio 19.4 (6-22); Bilirubin Total 0.5 mg/dL (0.2-1.3); Blood Urea Nitrogen 18 mg/dL (9-20); Calcium 9.3 mg/dL (8.4-10.2); Carbon Dioxide 30 mmol/L (22-32); Chloride 99 mmol/L (98-107); Estimated Glomerular Filt Rate > 60 mL/min (>60); Globulin 2.6 g/dL (1.7-4.1); Glucose 195 mg/dL (80-110); HEMOLYSIS < 15 (0-50); Potassium 4.1 mmol/L (3.4-5.1); Sodium 137 mmol/L (137-145); Total Protein 6.6 g/dL (6.3-8.2)
--- NOTE | 2024-04-08 13:17 | ED_ITS ---
HPI - Altered Mental Status General Chief Complaint: Weakness Stated Complaint: lethargy w/ h/o elevated ammonia Time Seen by Provider: 04/08/24 13:17 Source: EMS Mode of arrival: EMS History of Present Illness HPI narrative: 68-year-old male with a history of diabetes NSTEMI liver failure presents from [facility] for altered mental status. Was told that patient has a history of elevated ammonia and has has a history of noncompliance with his lactulose. At time of initial evaluation patient is alert to self place intermittently to time. Patient answering questions appropriately but slow to speak no focal deficits. Patient appears to be falling asleep on exam. Patient states he is not having any symptoms such as headache visual disturbances chest pain shortness of breath fever chills nausea vomiting abdominal pain or any other GI/ symptoms at this time. He states that he has been compliant with lactulose at his facility. Review of records show patient has a history of lactulose noncompliance given the fact that it causes him diarrhea. Patient has been seen here previously for the same Related Data Home Medications Medication Instructions Recorded Confirmed gabapentin 800 mg tablet 1,200 mg PO TID ##0 10/07/12 03/05/24 furosemide 80 mg tablet 40 mg PO BID ##0 10/15/15 03/05/24 enalapril maleate 20 mg tablet 20 mg PO Q DAY ##0 03/06/16 03/05/24 primidone 50 mg tablet 200 tab PO BID 02/07/18 03/05/24 multivitamin 1 cap PO DAILY 11/02/18 03/05/24 vitamin B complex 1 cap PO DAILY 11/02/18 03/05/24 pantoprazole 40 mg tablet,delayed 40 mg PO DAILY 01/16/22 03/05/24 release ferrous sulfate 325 mg (65 mg 325 mg PO BID 01/11/23 03/05/24 iron) tablet atorvastatin 20 mg tablet 20 mg PO DAILY 03/05/24 03/05/24 bisacodyl 5 mg tablet,delayed 5 mg PO PRN PRN Constipation 03/05/24 03/06/24 release docusate sodium 100 mg capsule 100 mg PO DAILY 03/05/24 03/05/24 fluticasone propionate 50 2 spray intranasal DAILY 03/05/24 03/05/24 mcg/actuation nasal spray,suspension lactulose 10 gram/15 mL oral 30 ml PO DAILY 03/05/24 03/05/24 solution metformin 1,000 mg PO BID 03/05/24 03/05/24 oxycodone 10 mg tablet 10 mg PO TID PRN Pain (Scale Score 03/05/24 03/05/24 4-6) semaglutide 0.25 mg or 0.5 mg (2 0.5 mg SUBCUT WEEKLY 03/05/24 03/05/24 mg/3 mL) subcutaneous pen injector (Ozempic) sennosides 8.6 mg tablet (senna) 17.2 mg PO DAILY 03/05/24 03/05/24 tamsulosin 0.4 mg capsule 0.4 mg PO DAILY 03/05/24 03/05/24 prednisolone acetate 1 % eye 1 drp EYE-BOTH DAILY 03/06/24 03/06/24 drops,suspension Lantus Solostar U-100 Insulin 40 units SUBCUT QAM 03/07/24 03/07/24 Previous Rx's Medication Instructions Recorded acetaminophen 325 mg tablet 650 mg (2 x 325 mg) PO Q6H PRN 12/30/22 Fever/Mild Pain (1-3) #60 tabs oxycodone 5 mg tablet 5 mg PO Q6H PRN Pain, Moderate 12/30/22 (4-6) #25 tabs Allergies Allergy/AdvReac Type Severity Reaction Status Date / Time amoxicillin [From AUGMENTIN] AdvReac Mild UPSET Verified 03/05/24 12:05 STOMACH clavulanic acid AdvReac Mild UPSET Verified 03/05/24 12:05 [From AUGMENTIN] STOMACH Review of Systems Review of Systems Narrative: General: Denies fever, chills, weight loss HEENT: Denies headache, eye drainage, eye irritation, head trauma, sore throat, voice change Cardiovascular: Denies any chest pain, palpitations, shortness of breath, tachycardia Respiratory: Denies any shortness of breath, cough, wheeze, stridor GI/: Denies any abdominal pain, nausea, vomiting, diarrhea, bright red blood per rectum, melanotic stools, urinary frequency, urinary retention, dysuria, hematuria MSK: Denies any joint pain, muscle pains, swelling Skin: Denies any rashes, lesions, discoloration Neuro: Denies any headache, lightheadedness, dizziness, fainting, weakness Psych: Denies SI/HI Patient History Medical History History of non-ST elevation myocardial infarction (NSTEMI) AGATHA treated with BiPAP Severe muscle deconditioning Sedentary lifestyle Closed non-physeal fracture of proximal phalanx of great toe with malunion Chronic ulcer of right foot limited to breakdown of skin Insulin dependent diabetes mellitus Peripheral vascular disease Hypertension Depression Toe amputation status Peripheral autonomic neuropathy Sepsis (02/27/17) Cellulitis (02/27/17) Sleep apnea MRSA (methicillin resistant Staphylococcus aureus) (02/27/17) Visit for wound care Essential tremor Thrombocytopenia Morbid obesity Polypharmacy Diabetes Surgical History History of amputation of lesser toe of right foot Family History Father Cancer Congestive heart failure Mother Cancer Social History household members: none Smoking Status: Never smoker alcohol intake: never Smoking Status: Never smoker alcohol intake frequency: other Exam Narrative Exam Narrative: General: Cooperative, comfortable, well-developed, not in acute distress HEENT: Normocephalic, atraumatic, PERRLA, normal sclera, eyelids normal, Neck: Active full range of motion, atraumatic Chest: Normal to inspection, negative crepitus, no overlying erythema ecchymosis Respiratory: Normal respiratory effort, not in acute respiratory distress, clear to auscultation bilaterally negative cough, wheeze, tachypnea, rhonchi, rales Cardiology: Regular rate rhythm negative gallop, murmur, rubs GI/: Normal to inspection, soft, nonrigid, no tenderness to palpation, exam deferred MSK: Full range of active range of motion of all 4 extremities, atraumatic Skin: No rashes lesions noted Neuro: NIH of 0, no focal deficits, patient slow to speak alert to self place intermittently to time,, moves all 4 extremities spontaneously, cranial nerves intact, able to answer all questions appropriately follows commands appropriately Psych: Cooperative, negative suicidal or homicidal ideations Initial Vital Signs Initial Vital Signs: Vital Signs Temperature 97.1 F L 04/08/24 12:33 Pulse Rate 82 04/08/24 12:33 Respiratory Rate 16 04/08/24 12:33 Blood Pressure 130/58 L 04/08/24 12:33 Pulse Oximetry 96 04/08/24 12:33 Oxygen Delivery Method Room Air 04/08/24 12:33 Course Orders Ordered: ED Orders 04/08/24 12:36 Ammonia (NH3) Stat Complete Blood Count AUTO DIFF Stat Comprehensive Metabolic Panel Stat Lipase Stat MAG [Magnesium] Stat Troponin & CK Cardiac Panel Stat 04/08/24 12:41 XR chest 1V Stat EKG-12 Lead Stat 04/08/24 13:27 CT head/brain wo con Stat 04/08/24 14:17 Covid-19 + FLU A/B + RSV - PCR Stat 04/08/24 15:44 Urinalysis and Microscopic Stat Urine Culture Stat Urine Drug Screen, Rapid Stat Discontinued Medications Ceftriaxone Sodium 1,000 mg/ (Sodium Chloride) 100 mls @ 200 mls/hr IV NOW ONE Stop: 04/08/24 16:26 Lactulose (Lactulose 20 Gm/30 Ml Solution) 30 gm PO NOW ONE Stop: 04/08/24 13:27 Last Admin: 04/08/24 14:13 Dose: 30 gm Documented By: SB Vital Signs Vital signs: Vital Signs - 8 hr 04/08/24 12:33 04/08/24 14:00 04/08/24 14:10 Temperature 97.1 F L Pulse Rate 82 86 Respiratory Rate 16 16 Blood Pressure 130/58 L 115/56 L Pulse Oximetry 96 98 Oxygen Delivery Method Room Air Room Air 04/08/24 14:10 04/08/24 14:30 04/08/24 15:00 Temperature Pulse Rate 85 84 Respiratory Rate 11 L 14 Blood Pressure 117/53 L Pulse Oximetry 97 95 Oxygen Delivery Method 04/08/24 15:00 04/08/24 15:30 04/08/24 15:47 Temperature Pulse Rate 90 91 H Respiratory Rate 18 12 Blood Pressure 124/57 L Pulse Oximetry 98 97 Oxygen Delivery Method Room Air 04/08/24 15:47 04/08/24 16:00 04/08/24 16:00 Temperature Pulse Rate 92 H Respiratory Rate Blood Pressure 130/60 135/56 L Pulse Oximetry 96 Oxygen Delivery Method Room Air MDM - Altered Mental Status Differential Diagnosis Differential diagnosis: Likely altered mental status, delirium, dementia, other (Electrolyte abnormality, hepatic encephalopathy) and sepsis Lab Data 04/08/24 12:36 04/08/24 12:36 Labs: Lab Results 04/08/24 04/08/24 04/08/24 Range/Units 12:36 14:17 15:44 WBC 9.0 (4.5-11.0) X10^3/uL RBC 3.76 L (4.5-5.9) X10^6/uL Hgb 11.9 L (13.5-17.5) g/dL Hct 34.7 L (41-53) % MCV 92.1 (80-100) fL MCH 31.7 (26-34) PG MCHC 34.4 (30-36) % RDW 13.9 (11.6-14.8) % Plt Count 151 (150-400) X10^3/uL Neut % (Auto) 55.0 (50-75) % Lymph % (Auto) 24.6 L (25-40) % Emmons % (Auto) 7.8 (3-14) % Eos % (Auto) 12.0 H (2-4) % Baso % (Auto) 0.6 (0-2) % Neut # (Auto) 5000 (1659-7614) /uL Lymph # (Auto) 2200 (2509-4657) /uL Emmons # (Auto) 700 (0-900) /uL Eos # (Auto) 1100 H (0-450) /uL Baso # (Auto) 100 (0-100) /uL Sodium 137 (137-145) mmol/L Potassium 4.1 (3.4-5.1) mmol/L Chloride 99 (98-107) mmol/L Carbon Dioxide 30 (22-32) mmol/L BUN 18 (9-20) mg/dL Creatinine 0.93 (0.66-1.25) mg/dL Estimated GFR > 60 (>60) mL/min BUN/Creatinine Ratio 19.4 (6-22) Glucose 195 H (80-110) mg/dL Calcium 9.3 (8.4-10.2) mg/dL Magnesium 1.5 L (1.6-2.3) mg/dL Total Bilirubin 0.5 (0.2-1.3) mg/dL AST 33 (17-59) IU/L ALT 30 (<50) IU/L Alkaline Phosphatase 77 (38-126) U/L Ammonia 94 H (9-30) umol/L Total Creatine Kinase 56 (55-170) U/L Troponin I < 0.012 (0.01-0.034) ng/mL Total Protein 6.6 (6.3-8.2) g/dL Albumin 4.0 (3.5-5.0) g/dL Globulin 2.6 (1.7-4.1) g/dL Albumin/Globulin Ratio 1.5 (1.0-2.8) Lipase 60 (23-300) U/L Urine Color Yellow Urine Appearance Clear Urine pH 5.5 (4.5-8.0) Ur Specific [place] 1.015 (1.000-1.035) Urine Protein Negative (Negative) Urine Glucose (UA) Negative (Negative) g/dL Urine Ketones Negative (NEGATIVE) Urine Occult Blood Trace-intact (Negative) Urine Nitrate Negative (Negative) Urine Bilirubin Negative (NEGATIVE) Urine Urobilinogen 0.2 (0.2) E.U./dL Ur Leukocyte Esterase Trace H (NEGATIVE) Urine RBC 0-1/hpf (0-5/HPF) Urine WBC 5-10/hpf H (0-5/HPF) Ur Squamous Epith Cells 0-1 /hpf (0-5/HPF) Urine Bacteria Few (2-10) H (None) Ur Culture Indicated? Specimen cultured Vol Urine Centrifuged 10ml (spun) U Opiates 300ng/mL cut Negative (Negative) Ur Oxycodone Screen Positive H (Negative) Urine Methadone Screen Negative (Negative) Ur Barbiturates Screen Positive H (Negative) U Tricyclic Antidepress Negative (Negative) Ur Phencyclidine Scrn Negative (Negative) Ur Amphetamines Screen Negative (Negative) U Methamphetamines Scrn Negative (Negative) Ur MDMA Scrn (Ecstasy) Negative (Negative) U Benzodiazepines Scrn Negative (Negative) Urine Cocaine Screen Negative (Negative) U Marijuana (THC) Screen Negative (Negative) Urine Specific [place] (Normal) Ur Creatinine (Normal) SARS-CoV-2 (PCR) Negative (Negative) Influenza A (RT-PCR) Flu a negative (NEGATIVE) Influenza B (RT-PCR) Flu b negative (NEGATIVE) RSV (PCR) Negative (Negative) 02/17/25 Range/Units 15:44 WBC (4.5-11.0) X10^3/uL RBC (4.5-5.9) X10^6/uL Hgb (13.5-17.5) g/dL Hct (41-53) % MCV (80-100) fL MCH (26-34) PG MCHC (30-36) % RDW (11.6-14.8) % Plt Count (150-400) X10^3/uL Neut % (Auto) (50-75) % Lymph % (Auto) (25-40) % Emmons % (Auto) (3-14) % Eos % (Auto) (2-4) % Baso % (Auto) (0-2) % Neut # (Auto) (2845-4098) /uL Lymph # (Auto) (5233-2560) /uL Emmons # (Auto) (0-900) /uL Eos # (Auto) (0-450) /uL Baso # (Auto) (0-100) /uL Sodium (137-145) mmol/L Potassium (3.4-5.1) mmol/L Chloride (98-107) mmol/L Carbon Dioxide (22-32) mmol/L BUN (9-20) mg/dL Creatinine (0.66-1.25) mg/dL Estimated GFR (>60) mL/min BUN/Creatinine Ratio (6-22) Glucose (80-110) mg/dL Calcium (8.4-10.2) mg/dL Magnesium (1.6-2.3) mg/dL Total Bilirubin (0.2-1.3) mg/dL AST (17-59) IU/L ALT (<50) IU/L Alkaline Phosphatase (38-126) U/L Ammonia (9-30) umol/L Total Creatine Kinase (55-170) U/L Troponin I (0.01-0.034) ng/mL Total Protein (6.3-8.2) g/dL Albumin (3.5-5.0) g/dL Globulin (1.7-4.1) g/dL Albumin/Globulin Ratio (1.0-2.8) Lipase (23-300) U/L Urine Color Urine Appearance Urine pH Normal (4.5-8.0) Ur Specific [place] (1.000-1.035) Urine Protein (Negative) Urine Glucose (UA) (Negative) g/dL Urine Ketones (NEGATIVE) Urine Occult Blood (Negative) Urine Nitrate (Negative) Urine Bilirubin (NEGATIVE) Urine Urobilinogen (0.2) E.U./dL Ur Leukocyte Esterase (NEGATIVE) Urine RBC (0-5/HPF) Urine WBC (0-5/HPF) Ur Squamous Epith Cells (0-5/HPF) Urine Bacteria (None) Ur Culture Indicated? Vol Urine Centrifuged U Opiates 300ng/mL cut (Negative) Ur Oxycodone Screen (Negative) Urine Methadone Screen (Negative) Ur Barbiturates Screen (Negative) U Tricyclic Antidepress (Negative) Ur Phencyclidine Scrn (Negative) Ur Amphetamines Screen (Negative) U Methamphetamines Scrn (Negative) Ur MDMA Scrn (Ecstasy) (Negative) U Benzodiazepines Scrn (Negative) Urine Cocaine Screen (Negative) U Marijuana (THC) Screen (Negative) Urine Specific [place] Normal (Normal) Ur Creatinine Normal (Normal) SARS-CoV-2 (PCR) (Negative) Influenza A (RT-PCR) (NEGATIVE) Influenza B (RT-PCR) (NEGATIVE) RSV (PCR) (Negative) Point of Care Testing Glucose POC [address] scan - head: Radiologist's Impression: [place] [address] CT Scan Report Signed Patient: Josue Mesa MR#: [id number] : 1955 Acct:[id number] Age/Sex: 68 / M Date of Service: 04/08/24 Loc: ED Accession Number: [id number] Procedure: CT head/brain wo con Ordering Provider: Thiago Pedroza D.O. PROCEDURE: CT HEAD/BRAIN WO CON INDICATIONS: weakness / ams TECHNIQUE: Noncontrast 4.5 mm thick angled axial sections acquired from the foramen magnum to the vertex, with coronal and sagittal reformats. For radiation dose reduction, the following was used: automated exposure control, adjustment of mA and/or kV according to patient size. COMPARISON: [facility], CT, CT HEAD/BRAIN WO CON, 01/11/2023, 14:29. FINDINGS: Image quality: Diagnostic. CSF spaces: Basal cisterns are patent. No extra-axial fluid collections. The ventricles are symmetric in size and shape. Brain: No intracranial bleeds or masses. There is cerebral volume loss for age, with resultant ventricular and sulcal prominence. There are periventricular and deep white matter chronic small vessel ischemic changes. There is intracranial internal carotid artery atherosclerosis. Skull and face: Calvarium and visualized facial bones appear intact, without suspicious lesions. Sinuses: Visualized sinuses and mastoids are clear. IMPRESSION: No acute intracranial pathology. Chest x-ray: Radiologist's Impression: [place] [id number] [place] [id number] XRay Report Signed Patient: Josue Mesa MR#: [id number] : 1955 Acct:[id number] Age/Sex: 68 / M Date of Service: 04/08/24 Loc: ED Accession Number: [id number] Procedure: XR chest 1V Ordering Provider: Thiago Pedroza D.O. PROCEDURE: XR CHEST 1V INDICATIONS: altered mental status TECHNIQUE: One view of the chest was acquired. COMPARISON: [facility], , XR CHEST 1V, 03/05/2024, 12:19. FINDINGS: Surgical changes and devices: None. Lungs and pleura: Lungs are clear. No pleural effusions or pneumothorax. Mediastinum: Mediastinal contours appear normal. Heart size is normal. Bones and chest wall: No suspicious bony lesions. Overlying soft tissues appear unremarkable. IMPRESSION: No acute cardiopulmonary abnormality is seen. 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 At time of evaluation patient without any focal deficits just complaining of weakness, he is alert to self place time speech is slowed however. Patient states he has been compliant with his lactulose but he has a documented history of noncompliance given the fact that it causes him diarrhea. Patient without any leukocytosis, patient's ammonia 94, 30 g of lactulose ordered. Patient with urinary tract infection 1st dose of antibiotics given IV here. Head CT without any acute findings, chest x-ray without any acute cardiopulmonary abnormalities. Patient did have 1 episode of bowel movement here after lactulose, however patient unstable still encephalopathic, therefore require admission, The patient's management plan was discussed Dr. Ambrose who agrees to admit the patient to their service and assumes care of this patient at this time. Full admission orders will be placed by the primary team. Discharge Plan Departure Patient Disposition: Admitted as Observation Clinical Impression: Acute hepatic encephalopathy, Urinary tract infection Admit Date/Time: 04/08/24 16:43 Admit Provider: Tex Ambrose
--- NOTE | 2024-04-08 13:27 | DI.CT.S_ITS ---
PROCEDURE: CT HEAD/BRAIN WO CON INDICATIONS: weakness / ams TECHNIQUE: Noncontrast 4.5 mm thick angled axial sections acquired from the foramen magnum to the vertex, with coronal and sagittal reformats. For radiation dose reduction, the following was used: automated exposure control, adjustment of mA and/or kV according to patient size. COMPARISON: [facility], CT, CT HEAD/BRAIN WO CON, 01/11/2023, 14:29. FINDINGS: Image quality: Diagnostic. CSF spaces: Basal cisterns are patent. No extra-axial fluid collections. The ventricles are symmetric in size and shape. Brain: No intracranial bleeds or masses. There is cerebral volume loss for age, with resultant ventricular and sulcal prominence. There are periventricular and deep white matter chronic small vessel ischemic changes. There is intracranial internal carotid artery atherosclerosis. Skull and face: Calvarium and visualized facial bones appear intact, without suspicious lesions. Sinuses: Visualized sinuses and mastoids are clear. IMPRESSION: No acute intracranial pathology. Dictated by: Otoniel Valadez M.D. on 04/08/2024 at 13:44 Approved by: Otoniel Valadez M.D. on 04/08/2024 at 13:49
[2024-04-08 13:39] LABS: Creatine Kinase 56 U/L (55-170); Lipase 60 U/L (23-300); Magnesium 1.5 mg/dL (1.6-2.3)
[2024-04-08 13:52] LABS: Troponin I < 0.012 ng/mL (0.01-0.034)
[2024-04-08] MEDS: LACTULOSE 20 GM/30 ML SOLUTION 30 GM PO (14:13)
[2024-04-08 15:05] LABS: Influenza A - CEPHEID Flu A NEGATIVE (NEGATIVE); Influenza B - CEPHEID Flu B NEGATIVE (NEGATIVE); Respiratory Syncytial Virus Negative (Negative)
[2024-04-08 15:25] LABS: COVID-19 CEPHEID 4-PLEX PCR Negative (Negative)
[2024-04-08 15:59] LABS: Appearance Urine UA CLEAR; Bilirubin Urine UA NEGATIVE (NEGATIVE); Color Urine UA YELLOW; Glucose Urine UA NEGATIVE (Negative); Ketones Urine UA NEGATIVE (NEGATIVE); Leukocyte Esterase Urine UA TRACE (NEGATIVE); Nitrite Urine UA NEGATIVE (Negative); Occult Blood Urine UA TRACE-INTACT (Negative); Protein Urine UA NEGATIVE (Negative); Specific Gravity Urine UA 1.015 (1.000-1.035); Urobilinogen Urine UA 0.2 E.U./dL (0.2); pH Urine UA 5.5 (4.5-8.0)
[2024-04-08 16:05] LABS: Ur Creatinine Normal (Normal); Ur Specific Gravity Normal (Normal); Urine Amphetamines Negative (Negative); Urine Barbiturates Positive (Negative); Urine Benzodiazepines Negative (Negative); Urine Cocaine Negative (Negative); Urine MDMA Negative (Negative); Urine Methadone Negative (Negative); Urine Methamphetamines Negative (Negative); Urine Opiates Negative (Negative); Urine Oxycodone Positive (Negative); Urine Phencyclidine Negative (Negative); Urine THC Negative (Negative); Urine Tricyclic Antidepressant Negative (Negative); Urine pH Normal (Normal)
[2024-04-08 16:14] LABS: Bacteria Urine Few (2-10); Culture Indicated Urine Specimen Cultured; RBC Urine 0-1/HPF (0-5/HPF); Squamous Epithelial Cell Urine 0-1 /HPF (0-5/HPF); Urine Volume 10mL (spun); WBC Urine 5-10/HPF (0-5/HPF)
[2024-04-08] MEDS: cefTRIAXone 1,000 MG in SODIUM CHLORIDE 0.9% 100 ML 200 MG IV (16:45)
--- NOTE | 2024-04-08 16:50 | P.HP_ITS ---
History of Present Illness History of Present Illness Date Patient Seen: 04/08/24 Chief complaint: lethargy w/ h/o elevated ammonia Narrative: The patient presented to the ED with lethargy and confusion. He stays at a nearby memory care unit. He was history of ROSARIO and recurrent encephalopathy from medication noncompliance. Specifically, he does not take his lactulose and then becomes encephalopathic. He was found to have an ammonia of 93 and given lactulose in the ED. he states he is at [facility] which is a nursing facility in [place]. He denies any pain, or dyspnea. He can not really speak to his recent medication compliance. He was no other complaints. In the ED, there was concern for UTI and ceftriaxone was started. [facility] Medical History History of non-ST elevation myocardial infarction (NSTEMI) AGATHA treated with BiPAP Severe muscle deconditioning Sedentary lifestyle Closed non-physeal fracture of proximal phalanx of great toe with malunion Chronic ulcer of right foot limited to breakdown of skin Insulin dependent diabetes mellitus Peripheral vascular disease Hypertension Depression Toe amputation status Peripheral autonomic neuropathy Sepsis (02/27/17) Cellulitis (02/27/17) Sleep apnea MRSA (methicillin resistant Staphylococcus aureus) (02/27/17) Visit for wound care Essential tremor Thrombocytopenia Morbid obesity Polypharmacy Diabetes Surgical History History of amputation of lesser toe of right foot Family History Father Cancer Congestive heart failure Mother Cancer Social History household members: none Smoking Status: Never smoker alcohol intake: never Meds Home Medications and Allergies Home Medications Medication Instructions Recorded Confirmed Type gabapentin 800 mg tablet 1,200 mg PO TID ##0 10/07/12 03/05/24 History furosemide 80 mg tablet 40 mg PO BID ##0 10/15/15 03/05/24 History enalapril maleate 20 mg tablet 20 mg PO Q DAY ##0 03/06/16 03/05/24 History primidone 50 mg tablet 200 tab PO BID 02/07/18 03/05/24 History multivitamin 1 cap PO DAILY 11/02/18 03/05/24 History vitamin B complex 1 cap PO DAILY 11/02/18 03/05/24 History pantoprazole 40 mg tablet,delayed 40 mg PO DAILY 01/16/22 03/05/24 History release acetaminophen 325 mg tablet 650 mg (2 x 325 mg) PO Q6H PRN 12/30/22 03/06/24 Rx Fever/Mild Pain (1-3) #60 tabs oxycodone 5 mg tablet 5 mg PO Q6H PRN Pain, Moderate 12/30/22 03/06/24 Rx (4-6) #25 tabs ferrous sulfate 325 mg (65 mg 325 mg PO BID 01/11/23 03/05/24 History iron) tablet atorvastatin 20 mg tablet 20 mg PO DAILY 03/05/24 03/05/24 History bisacodyl 5 mg tablet,delayed 5 mg PO PRN PRN Constipation 03/05/24 03/06/24 History release docusate sodium 100 mg capsule 100 mg PO DAILY 03/05/24 03/05/24 History fluticasone propionate 50 2 spray intranasal DAILY 03/05/24 03/05/24 History mcg/actuation nasal spray,suspension lactulose 10 gram/15 mL oral 30 ml PO DAILY 03/05/24 03/05/24 History solution metformin 1,000 mg PO BID 03/05/24 03/05/24 History oxycodone 10 mg tablet 10 mg PO TID PRN Pain (Scale Score 03/05/24 03/05/24 History 4-6) semaglutide 0.25 mg or 0.5 mg (2 0.5 mg SUBCUT WEEKLY 03/05/24 03/05/24 History mg/3 mL) subcutaneous pen injector (Ozempic) sennosides 8.6 mg tablet (senna) 17.2 mg PO DAILY 03/05/24 03/05/24 History tamsulosin 0.4 mg capsule 0.4 mg PO DAILY 03/05/24 03/05/24 History prednisolone acetate 1 % eye 1 drp EYE-BOTH DAILY 03/06/24 03/06/24 History drops,suspension Lantus Solostar U-100 Insulin 40 units SUBCUT QAM 03/07/24 03/07/24 History Allergies Allergy/AdvReac Type Severity Reaction Status Date / Time amoxicillin [From AUGMENTIN] AdvReac Mild UPSET Verified 03/05/24 12:05 STOMACH clavulanic acid AdvReac Mild UPSET Verified 03/05/24 12:05 [From AUGMENTIN] STOMACH Review of Systems Review of Systems Narrative: He was minimally able to participate in review of but denies pain. Exam Vital Signs (past 8 hours): - 04/08/24 12:33 04/08/24 14:00 04/08/24 14:10 Temperature 97.1 F L Pulse Rate 82 86 Respiratory Rate 16 16 Blood Pressure 130/58 L 115/56 L Pulse Oximetry 96 98 Oxygen Delivery Method Room Air Room Air 04/08/24 14:10 04/08/24 14:30 04/08/24 15:00 Temperature Pulse Rate 85 84 Respiratory Rate 11 L 14 Blood Pressure 117/53 L Pulse Oximetry 97 95 Oxygen Delivery Method 04/08/24 15:00 04/08/24 15:30 04/08/24 15:47 Temperature Pulse Rate 90 91 H Respiratory Rate 18 12 Blood Pressure 124/57 L Pulse Oximetry 98 97 Oxygen Delivery Method Room Air 04/08/24 15:47 04/08/24 16:00 04/08/24 16:00 Temperature Pulse Rate 92 H Respiratory Rate Blood Pressure 130/60 135/56 L Pulse Oximetry 96 Oxygen Delivery Method Room Air Oxygen Delivery Method Room Air Narrative Exam Narrative: NAD, calm, he was able to answer simple questions intermittently. He was comfortable in appearance. He was not oriented to time or place. Normocephalic skull, EOMI, anicteric sclera, symmetric pupils. Oropharynx unremarkable, no droop. Neck supple, midline trachea, no adenopathy. Lungs clear, normal rate and effort. Heart regular, no murmur gallop or rub. Abdomen is soft, non distended and non tender. Extremities are free of edema. Skin is free of rash or lesions. Joints are not swollen or deformed. Judgment appears to be abnormal. Objective ECG Impression: Normal sinus rhythm Minimal voltage criteria for LVH, may be normal variant ( R in aVL ) Imaging Chest x-ray: Radiologist's impression: No acute cardiopulmonary abnormality is seen. CT scan - head: Radiologist's impression: No acute intracranial pathology. Labs 04/08/24 12:36 04/08/24 12:36 Labs: Laboratory Results - last 24 hr 0204/08/24 04/08/24 12:36 14:17 15:44 WBC 9.0 RBC 3.76 L Hgb 11.9 L Hct 34.7 L MCV 92.1 MCH 31.7 MCHC 34.4 RDW 13.9 Plt Count 151 Neut % (Auto) 55.0 Lymph % (Auto) 24.6 L [place] % (Auto) 7.8 Eos % (Auto) 12.0 H Baso % (Auto) 0.6 Neut # (Auto) 5000 Lymph # (Auto) 2200 [place] # (Auto) 700 Eos # (Auto) 1100 H Baso # (Auto) 100 Sodium 137 Potassium 4.1 Chloride 99 Carbon Dioxide 30 BUN 18 Creatinine 0.93 Estimated GFR > 60 BUN/Creatinine Ratio 19.4 Glucose 195 H Calcium 9.3 Magnesium 1.5 L Total Bilirubin 0.5 AST 33 ALT 30 Alkaline Phosphatase 77 Ammonia 94 H Total Creatine Kinase 56 Troponin I < 0.012 Total Protein 6.6 Albumin 4.0 Globulin 2.6 Albumin/Globulin Ratio 1.5 Lipase 60 Urine Color Yellow Urine Appearance Clear Urine pH 5.5 Ur Specific [place] 1.015 Urine Protein Negative Urine Glucose (UA) Negative Urine Ketones Negative Urine Occult Blood Trace-intact Urine Nitrate Negative Urine Bilirubin Negative Urine Urobilinogen 0.2 Ur Leukocyte Esterase Trace H Urine RBC 0-1/hpf Urine WBC 5-10/hpf H Ur Squamous Epith Cells 0-1 /hpf Urine Bacteria Few (2-10) H Ur Culture Indicated? Specimen cultured Vol Urine Centrifuged 10ml (spun) U Opiates 300ng/mL cut Negative Ur Oxycodone Screen Positive H Urine Methadone Screen Negative Ur Barbiturates Screen Positive H U Tricyclic Antidepress Negative Ur Phencyclidine Scrn Negative Ur Amphetamines Screen Negative U Methamphetamines Scrn Negative Ur MDMA Scrn (Ecstasy) Negative U Benzodiazepines Scrn Negative Urine Cocaine Screen Negative U Marijuana (THC) Screen Negative Urine Specific [place] Ur Creatinine SARS-CoV-2 (PCR) Negative Influenza A (RT-PCR) Flu a negative Influenza B (RT-PCR) Flu b negative RSV (PCR) Negative 04/08/24 15:44 WBC RBC Hgb Hct MCV MCH MCHC RDW Plt Count Neut % (Auto) Lymph % (Auto) [place] % (Auto) Eos % (Auto) Baso % (Auto) Neut # (Auto) Lymph # (Auto) [place] # (Auto) Eos # (Auto) Baso # (Auto) Sodium Potassium Chloride Carbon Dioxide BUN Creatinine Estimated GFR BUN/Creatinine Ratio Glucose Calcium Magnesium Total Bilirubin AST ALT Alkaline Phosphatase Ammonia Total Creatine Kinase Troponin I Total Protein Albumin Globulin Albumin/Globulin Ratio Lipase Urine Color Urine Appearance Urine pH Normal Ur Specific [place] Urine Protein Urine Glucose (UA) Urine Ketones Urine Occult Blood Urine Nitrate Urine Bilirubin Urine Urobilinogen Ur Leukocyte Esterase Urine RBC Urine WBC Ur Squamous Epith Cells Urine Bacteria Ur Culture Indicated? Vol Urine Centrifuged U Opiates 300ng/mL cut Ur Oxycodone Screen Urine Methadone Screen Ur Barbiturates Screen U Tricyclic Antidepress Ur Phencyclidine Scrn Ur Amphetamines Screen U Methamphetamines Scrn Ur MDMA Scrn (Ecstasy) U Benzodiazepines Scrn Urine Cocaine Screen U Marijuana (THC) Screen Urine Specific [place] Normal Ur Creatinine Normal SARS-CoV-2 (PCR) Influenza A (RT-PCR) Influenza B (RT-PCR) RSV (PCR) Assessment & Plan Assessment & Plan narrative: 1. Hepatic encephalopathy, present on admission and active. -secondary to inconsistent use of lactulose to treat end-stage nonalcoholic liver disease 2. UTI, present on admission and active. 3. Diabetes mellitus type 2 with peripheral neuropathy, present on admission and active. -high-dose lispro correctional scale and home Lantus dosing. 4. BPH, stable. -tamsulosin 5. Hyperlipidemia, stable. -resume atorvastatin 6. Essential tremor, stable. -primidone PLAN: Resume lactulose and monitor mental status. Continue ceftriaxone and monitor culture and response to therapy. A 1 midnight hospital stay is expected, supports observation status for treatment of hepatic encephalopathy and monitoring of mental status as well as treatment of cystitis. Obstructive sleep apnea, chronic, with CPAP Time-Based Coding :: 35 min spent with patient and on the chart (including review of chart, obtaining history, exam, reviewing outside data, placing orders, documenting exam and treatment plan, and counseling patient) on 04/08. Quality MIPS - Admit I confirm the patient?s Advance Care Plan is present, Code status is documented, Surrogate decision maker is in patient?s record [If Yes, STOP here]: Yes MIPS - Meds 'Current medications' to include all prescriptions, [id number] products, herbals, cannabis/cannabidiol products, and vitamin/mineral/dietary (nutritional) supplements. I have utilized all available resources to obtain, update, or review the patient?s current medications. [If Yes, STOP here]: Yes
--- NOTE | 2024-04-08 16:59 | PC.NURSE ---
Pt fails ambulation trial. He is weak and legs begin to buckle upon transfer from commode to bedside. He is safely directed to bed and sits safely. Repositioned with help of 2 staff. Provider Yovany made aware.
[2024-04-08] MEDS: LACTULOSE 20 GM/30 ML SOLUTION PO (20:28)
[2024-04-09 03:00] VITALS: BP 132/68; PULSE 90; RESP 18; TEMP 38; O2SAT 96
[2024-04-09 07:00] VITALS: BP 158/78; PULSE 94; RESP 18; TEMP 38; O2SAT 96
[2024-04-09 07:13] LABS: Add Manual Diff / Slide Review NO; Basophils Absolute Auto 200 /uL (0-100); Basophils Percent Auto 1.8 % (0-2); Eosinophils Absolute Auto 600 /uL (0-450); Eosinophils Percent Auto 5.4 % (2-4); Hematocrit 33.4 % (41-53); Hemoglobin 11.4 g/dL (13.5-17.5); Lymphocytes Absolute Auto 1300 /uL (1100-4500); Lymphocytes Percent Auto 11.6 % (25-40); Mean Corpuscular Hemoglobin 31.6 PG (26-34); Mean Corpuscular Volume 92.8 fL (80-100); Monocytes Absolute Auto 900 /uL (0-900); Monocytes Percent Auto 7.6 % (3-14); Neutrophils Absolute Auto 8600 /uL (1500-7000); Neutrophils Percent Auto 73.6 % (50-75); Platelet Count 142 X10^3/uL (150-400); White Blood Cell Count 11.7 X10^3/uL (4.5-11.0)
[2024-04-09 07:23] LABS: BUN Creatinine Ratio 22.1 (6-22); Blood Urea Nitrogen 17 mg/dL (9-20); Calcium 9.3 mg/dL (8.4-10.2); Carbon Dioxide 32 mmol/L (22-32); Chloride 101 mmol/L (98-107); Estimated Glomerular Filt Rate > 60 mL/min (>60); Glucose 206 mg/dL (80-110); HEMOLYSIS < 15 (0-50); Potassium 3.9 mmol/L (3.4-5.1); Sodium 141 mmol/L (137-145)
[2024-04-09] MEDS: FERROUS SULFATE 325 MG TABLET PO ×2 (08:57→21:28)
[2024-04-09] MEDS: ATORVASTATIN 20 MG TABLET PO (08:57)
[2024-04-09] MEDS: LACTULOSE 20 GM/30 ML SOLUTION PO (08:57)
[2024-04-09] MEDS: INSULIN GLARGINE 100 UNIT/ML 3ML PEN 40 UNIT SUBCUT (08:57)
[2024-04-09] MEDS: TAMSULOSIN 0.4 MG CAPSULE PO (10:09)
--- NOTE | 2024-04-09 10:44 | P.PN_ITS ---
Subjective Subjective Interval history: Summary: The patient presented to the ED with lethargy and confusion. He stays at a nearby memory care unit. He was history of ROSARIO and recurrent encephalopathy from medication noncompliance. Specifically, he does not take his lactulose and then becomes encephalopathic. He was found to have an ammonia of 93 and given lactulose in the ED. he states he is at [facility] which is a nursing facility in [place]. He denies any pain, or dyspnea. He can not really speak to his recent medication compliance. He was no other complaints. In the ED, there was concern for UTI and ceftriaxone was started. S: He is in no distress, is sitting in a chair. He is still quite encephalopathic and does not know where he was or what year it is. He denies any pain, or dyspnea. Exam Vital Signs (past 8 hours): - 04/09/24 03:00 04/09/24 07:00 Temperature 100.4 F H 100.4 F H Pulse Rate 90 94 H Respiratory Rate 18 18 Blood Pressure 132/68 158/78 H Pulse Oximetry 96 96 Oxygen Flow Rate 0 Oxygen Delivery Method Room Air Oxygen Flow Rate 0 Narrative Exam Narrative: NAD, alert and oriented to person but not place her year. Fluent speech. He was calm. Lungs are clear, normal rate and effort. Heart is regular, no murmur gallop or rub. Abdomen is soft, non distended. Extremities are free of edema. Neuro: Cranial nerves intact him and he moves arms and legs spontaneously. Speech is normal. Objective Labs 04/09/24 06:30 04/09/24 06:30 Labs: Laboratory Results - last 24 hr 04/08/24 04/08/24 04/08/24 12:36 14:17 15:44 WBC 9.0 RBC 3.76 L Hgb 11.9 L Hct 34.7 L MCV 92.1 MCH 31.7 MCHC 34.4 RDW 13.9 Plt Count 151 Neut % (Auto) 55.0 Lymph % (Auto) 24.6 L [place] % (Auto) 7.8 Eos % (Auto) 12.0 H Baso % (Auto) 0.6 Neut # (Auto) 5000 Lymph # (Auto) 2200 [place] # (Auto) 700 Eos # (Auto) 1100 H Baso # (Auto) 100 Sodium 137 Potassium 4.1 Chloride 99 Carbon Dioxide 30 BUN 18 Creatinine 0.93 Estimated GFR > 60 BUN/Creatinine Ratio 19.4 Glucose 195 H Calcium 9.3 Magnesium 1.5 L Total Bilirubin 0.5 AST 33 ALT 30 Alkaline Phosphatase 77 Ammonia 94 H Total Creatine Kinase 56 Troponin I < 0.012 Total Protein 6.6 Albumin 4.0 Globulin 2.6 Albumin/Globulin Ratio 1.5 Lipase 60 Urine Color Yellow Urine Appearance Clear Urine pH 5.5 Ur Specific [place] 1.015 Urine Protein Negative Urine Glucose (UA) Negative Urine Ketones Negative Urine Occult Blood Trace-intact Urine Nitrate Negative Urine Bilirubin Negative Urine Urobilinogen 0.2 Ur Leukocyte Esterase Trace H Urine RBC 0-1/hpf Urine WBC 5-10/hpf H Ur Squamous Epith Cells 0-1 /hpf Urine Bacteria Few (2-10) H Ur Culture Indicated? Specimen cultured Vol Urine Centrifuged 10ml (spun) U Opiates 300ng/mL cut Negative Ur Oxycodone Screen Positive H Urine Methadone Screen Negative Ur Barbiturates Screen Positive H U Tricyclic Antidepress Negative Ur Phencyclidine Scrn Negative Ur Amphetamines Screen Negative U Methamphetamines Scrn Negative Ur MDMA Scrn (Ecstasy) Negative U Benzodiazepines Scrn Negative Urine Cocaine Screen Negative U Marijuana (THC) Screen Negative Urine Specific [place] Ur Creatinine SARS-CoV-2 (PCR) Negative Influenza A (RT-PCR) Flu a negative Influenza B (RT-PCR) Flu b negative RSV (PCR) Negative 04/08/24 04/09/24 15:44 06:30 WBC 11.7 H RBC 3.60 L Hgb 11.4 L Hct 33.4 L MCV 92.8 MCH 31.6 MCHC 34.0 RDW 14.0 Plt Count 142 L Neut % (Auto) 73.6 Lymph % (Auto) 11.6 L [place] % (Auto) 7.6 Eos % (Auto) 5.4 H Baso % (Auto) 1.8 Neut # (Auto) 8600 H Lymph # (Auto) 1300 [place] # (Auto) 900 Eos # (Auto) 600 H Baso # (Auto) 200 H Sodium 141 Potassium 3.9 Chloride 101 Carbon Dioxide 32 BUN 17 Creatinine 0.77 Estimated GFR > 60 BUN/Creatinine Ratio 22.1 H Glucose 206 H Calcium 9.3 Magnesium Total Bilirubin AST ALT Alkaline Phosphatase Ammonia Total Creatine Kinase Troponin I Total Protein Albumin Globulin Albumin/Globulin Ratio Lipase Urine Color Urine Appearance Urine pH Normal Ur Specific [place] Urine Protein Urine Glucose (UA) Urine Ketones Urine Occult Blood Urine Nitrate Urine Bilirubin Urine Urobilinogen Ur Leukocyte Esterase Urine RBC Urine WBC Ur Squamous Epith Cells Urine Bacteria Ur Culture Indicated? Vol Urine Centrifuged U Opiates 300ng/mL cut Ur Oxycodone Screen Urine Methadone Screen Ur Barbiturates Screen U Tricyclic Antidepress Ur Phencyclidine Scrn Ur Amphetamines Screen U Methamphetamines Scrn Ur MDMA Scrn (Ecstasy) U Benzodiazepines Scrn Urine Cocaine Screen U Marijuana (THC) Screen Urine Specific [place] Normal Ur Creatinine Normal SARS-CoV-2 (PCR) Influenza A (RT-PCR) Influenza B (RT-PCR) RSV (PCR) [facility] Medical History History of non-ST elevation myocardial infarction (NSTEMI) AGATHA treated with BiPAP Severe muscle deconditioning Sedentary lifestyle Closed non-physeal fracture of proximal phalanx of great toe with malunion Chronic ulcer of right foot limited to breakdown of skin Insulin dependent diabetes mellitus Peripheral vascular disease Hypertension Depression Toe amputation status Peripheral autonomic neuropathy Sepsis (02/27/17) Cellulitis (02/27/17) Sleep apnea MRSA (methicillin resistant Staphylococcus aureus) (02/27/17) Visit for wound care Essential tremor Thrombocytopenia Morbid obesity Polypharmacy Diabetes Surgical History History of amputation of lesser toe of right foot Family History Father Cancer Congestive heart failure Mother Cancer Social History household members: none Smoking Status: Never smoker alcohol intake: never Assessment & Plan Assessment & Plan narrative: 1. Hepatic encephalopathy, present on admission and active. -secondary to inconsistent use of lactulose to treat end-stage nonalcoholic liver disease 2. UTI, present on admission and active. 3. Diabetes mellitus type 2 with peripheral neuropathy, present on admission and active. -high-dose lispro correctional scale and home Lantus dosing. 4. BPH, stable. -tamsulosin 5. Hyperlipidemia, stable. -resume atorvastatin 6. Essential tremor, stable. -primidone PLAN: Continue and increase (20 to 30G)_ lactulose and monitor mental status. Continue ceftriaxone and monitor culture and response to therapy. He requires a 2nd midnight of hospital care for encephalopathy, ongoing treatment of hepatic encephalopathy, and IV antibiotics. CRISTINA; 04/10, [facility] Time-Based Coding :: [TOTAL MINUTES] spent with patient and on the chart (including review of chart, obtaining history, exam, reviewing outside data, placing orders, documenting exam and treatment plan, and counseling patient) on [DATE]. Quality VTE Deep Vein Thrombosis/Pulmonary Embolism Present on Admission: No
[2024-04-09 11:00] VITALS: BP 156/71; PULSE 92; RESP 15; TEMP 36.7; O2SAT 97
[2024-04-09 11:20] LABS: Magnesium 1.5 mg/dL (1.6-2.3)
[2024-04-09] MEDS: INSULIN LISPRO 100 UNIT/ML 3ML VIAL SUBCUT ×3 (11:56→21:40)
--- NOTE | 2024-04-09 11:57 | CM.DANOTE ---
Initial DCP Assessment Visit Note Reviewed EMR and team rounds for pt's medical status and updates. Pt was receiving personal care at the time of this visit, and he is confused today, did not meet f/f at this time. Pt resides modified independently at [facility]. He uses a walker at baseline, and has a sister, niece, and another family member who all live closeby and can assist when pt needs their help or support with anything. He will d/c back to [facility] once medically stable, likely 1-more day inpt. Facility van will transport him back at d/c. No identified CM d/c needs anticipated at this time. Payor: [facility] PCP: Barbara Rushing Pt is a 68 year-old M with salas hx of diabetes, NSTEMI, and chronic liver failure. He presented from [facility] via EMS last evening for altered mental status-lethargy and confusion. He has a hx of elevated ammonia, and is inconsistent with taking his lactulose due to not wanting to have diarrhea. He is oriented to self and place only. ED labs did show elevated ammonia levels, as well as a UTI. He was astarted on IV ABO's, and admitted to OBS for further IV ABO tx, monitoring of lactulose and mental status. DCP will continue to follow and assist with any further evolving needs, including his transition back to [facility] once he's medically stable for d/c. Discharge Planning/Care Management CM Discharge Assessment Start: 04/09/24 11:48 Freq: Status: Active Protocol: Document 04/09/24 11:50 DPL (Rec: 04/09/24 11:57 DPL [id number]) Discharge Planning Assessment Assigned Human Relations Teacher DAYNA Ramon Advance Directives? Yes: [place] Advance Directives on File Yes: Dated 03/10/16 History Provided By Medical Record Expected Length of Stay 2 Has Patient been admitted in last 30 No days? Comment Almost, pt was just admitted from 04/05-04/07. He then presented to the ED and was re -admitted on 04/08/23. Prior Living Arrangements Assisted Living Household Members none Type of transporation used prior to Relies on Others admit Facility Name Admitted From: [facility] Willing to Return to Facility? Yes Independent with ADL's No: mod ind. with assistance with ADL's, IADL's. Is patient alert and oriented? No: Confused Needs Assistance With Bathing,Meal Prep,Managing Medications,Home Chores / Shopping DME Already Rented / Owned Bath Bench,Elevated Toilet Seat,FWW / Walker Comment [facility] Faxed No Comment D/c back to [facility]. Barriers to Discharge No Discharge Plan Assisted Living Facility Transportation Arrangement facility to transport Referrals Initiated None needed Review Status In Process Please Provide Date Initial DC 04/09/24 Assessment Was Performed
[2024-04-09] MEDS: levoFLOXacin 750 MG/150 ML PIGGYBACK 100 MG IV (12:00)
--- NOTE | 2024-04-09 13:01 | PC.NURSE ---
Patient is confused and lethargic today. He is able to ambulate with fww and gaitbelt with two people. Patient took his lactulose and po medications without any difficulty. His lunch time blood sugar was 433 and insulin given. Two RNS took a look at patients bilateral legs and feet and patient has a pressure ulcer to the r.foot that measures 1.5x1.5cm, he also has an open blister on his second r.toe and a red pressure soar on his bony prominence to big toe, measuring [id number]. Ulcer has been covered with allevyn dressing.
[2024-04-09] MEDS: MAGNESIUM CHLORIDE 64 MG TABLET 128 MG PO (13:10)
[2024-04-09] MEDS: GABAPENTIN 600 MG TABLET 1200 MG PO ×2 (15:22→21:29)
[2024-04-09] MEDS: LACTULOSE 20 GM/30 ML SOLUTION 30 GM PO ×2 (15:25→21:30)
[2024-04-09 18:15] VITALS: BP 153/76; PULSE 109; RESP 15; TEMP 37.1; O2SAT 97
[2024-04-09] MEDS: OXYCODONE IR 10 MG TABLET PO (21:28)
[2024-04-09] MEDS: HEPARIN 5,000 UNIT/ML VIAL 5000 UNIT SUBCUT (21:29)
[2024-04-09 22:00] VITALS: BP 145/62; PULSE 90; RESP 18; TEMP 37.2; O2SAT 95
[2024-04-10 01:38] VITALS: BP 135/66; PULSE 66; RESP 17; TEMP 36.9; O2SAT 97
[2024-04-10] MEDS: OXYCODONE IR 10 MG TABLET PO ×2 (05:22→13:18)
[2024-04-10 05:30] VITALS: BP 139/82; PULSE 71; RESP 16; TEMP 36.6; O2SAT 99
[2024-04-10 07:16] VITALS: BP 142/69; PULSE 68; RESP 17; TEMP 36.9; O2SAT 98
[2024-04-10 07:31] LABS: Add Manual Diff / Slide Review NO; Basophils Absolute Auto 0 /uL (0-100); Basophils Percent Auto 0.2 % (0-2); Eosinophils Absolute Auto 0 /uL (0-450); Eosinophils Percent Auto 0.2 % (2-4); Hematocrit 30.2 % (41-53); Hemoglobin 10.3 g/dL (13.5-17.5); Lymphocytes Absolute Auto 1400 /uL (1100-4500); Lymphocytes Percent Auto 12.9 % (25-40); Mean Corpuscular HGB Conc 34.2 % (30-36); Mean Corpuscular Hemoglobin 31.6 PG (26-34); Mean Corpuscular Volume 92.5 fL (80-100); Monocytes Absolute Auto 900 /uL (0-900); Monocytes Percent Auto 8.4 % (3-14); Neutrophils Absolute Auto 8300 /uL (1500-7000); Neutrophils Percent Auto 78.3 % (50-75); Platelet Count 136 X10^3/uL (150-400); Red Blood Cell Count 3.27 X10^6/uL (4.5-5.9); Red Cell Distribution Width 14.1 % (11.6-14.8); White Blood Cell Count 10.6 X10^3/uL (4.5-11.0)
[2024-04-10 07:46] LABS: BUN Creatinine Ratio 22.3 (6-22); Blood Urea Nitrogen 25 mg/dL (9-20); Calcium 9.2 mg/dL (8.4-10.2); Carbon Dioxide 27 mmol/L (22-32); Chloride 101 mmol/L (98-107); Estimated Glomerular Filt Rate > 60 mL/min (>60); Glucose 379 mg/dL (80-110); HEMOLYSIS < 15 (0-50); Potassium 3.8 mmol/L (3.4-5.1); Sodium 137 mmol/L (137-145)
[2024-04-10 07:49] LABS: Magnesium 1.8 mg/dL (1.6-2.3)
[2024-04-10] MEDS: INSULIN GLARGINE 100 UNIT/ML 3ML PEN 40 UNIT SUBCUT (09:35)
[2024-04-10] MEDS: INSULIN LISPRO 100 UNIT/ML 3ML VIAL SUBCUT ×2 (09:36→12:23)
[2024-04-10] MEDS: LACTULOSE 20 GM/30 ML SOLUTION 30 GM PO ×2 (09:39→14:36)
[2024-04-10] MEDS: HEPARIN 5,000 UNIT/ML VIAL 5000 UNIT SUBCUT (09:39)
[2024-04-10] MEDS: GABAPENTIN 600 MG TABLET 1200 MG PO ×2 (09:39→14:36)
[2024-04-10] MEDS: ATORVASTATIN 20 MG TABLET PO (09:40)
[2024-04-10] MEDS: TAMSULOSIN 0.4 MG CAPSULE PO (09:40)
[2024-04-10] MEDS: FERROUS SULFATE 325 MG TABLET PO (09:40)
[2024-04-10] MEDS: levoFLOXacin 750 MG/150 ML PIGGYBACK 100 MG IV (10:45)
[2024-04-10] MEDS: INSULIN GLARGINE 100 UNIT/ML 3ML PEN 10 UNIT SUBCUT (12:22)
[2024-04-10] MEDS: INSULIN LISPRO 100 UNIT/ML 3ML VIAL 8 UNIT SUBCUT (12:24)
--- NOTE | 2024-04-10 12:43 | CM.DPC ---
DCP Cont. Reviewed EMR and team rounds for status updates. Called [facility] to update them, they will not need to do a bedside assessment inpt, and request to be called early in the day tomorrow if pt is cleared for d/c.
--- NOTE | 2024-04-10 13:10 | PC.NURSE ---
pts blood glucose read >500 on glucometer at 1150, enterprise architect rechecked and lt=[id number], provider notified and no new orders given at this time, insulin was given with lunch per ordered protocol
--- NOTE | 2024-04-10 14:22 | PM.DS.1 ---
History of Present Illness History of Present Illness Date Patient Seen: 04/10/24 Chief complaint: lethargy w/ h/o elevated ammonia Narrative: Per admitting provider, The patient presented to the ED with lethargy and confusion. He stays at a nearby memory care unit. He was history of ROSARIO and recurrent encephalopathy from medication noncompliance. Specifically, he does not take his lactulose and then becomes encephalopathic. He was found to have an ammonia of 93 and given lactulose in the ED. he states he is at [facility] which is a nursing facility in [place]. He denies any pain, or dyspnea. He can not really speak to his recent medication compliance. He was no other complaints. In the ED, there was concern for UTI and ceftriaxone was started. Discharge Providers Provider Date of admission: 04/08/24 16:43 Discharge Date: 04/10/24 Primary care physician: BERRY Singletary Discharge provider: Thiago Hitchcock DO Summary Hospital Course Discharge Diagnosis: 1. Hepatic encephalopathy, present on admission and active. 2. UTI, present on admission and active. 3. Diabetes mellitus type 2 with peripheral neuropathy, present on admission and active. 4. BPH, stable. 5. Hyperlipidemia, stable. 6. Essential tremor, stable. Hospital Course: This is a 68-year-old male with a past medical history of ROSARIO cirrhosis, BPH, type 2 diabetes who was admitted to the hospital with lethargy and confusion. The etiology is this was likely due to hepatic encephalopathy and inconsistently use of lactulose. His home lactulose was increased and he had improvement in his confusion. Workup also revealed a possible acute cystitis and urine cultures did grow an E faecalis which was pansensitive. He will complete a course of levofloxacin for this at his facility over the next 5 days at [facility]. Recommend continued adjustments of lactulose with goal of 2-4 bowel movements per day. Time Spent with Patient Time spent: Greater than 30 minutes Exam Vital Signs (past 8 hours): - 04/10/24 07:16 Temperature 98.5 F Pulse Rate 68 Respiratory Rate 17 Blood Pressure 142/69 H Pulse Oximetry 98 Oxygen Flow Rate 0 Oxygen Delivery Method Room Air Oxygen Flow Rate 0 Narrative Exam Narrative: NAD, alert and oriented to person but not place her year. Fluent speech. He was calm. Lungs are clear, normal rate and effort. Heart is regular, no murmur gallop or rub. Abdomen is soft, non distended. Extremities are free of edema. Neuro: Cranial nerves intact him and he moves arms and legs spontaneously. Speech is normal. Objective Labs 04/10/24 07:00 04/10/24 07:00 Labs: Laboratory Results - last 24 hr 04/10/24 07:00 WBC 10.6 RBC 3.27 L Hgb 10.3 L Hct 30.2 L MCV 92.5 MCH 31.6 MCHC 34.2 RDW 14.1 Plt Count 136 L Neut % (Auto) 78.3 H Lymph % (Auto) 12.9 L [place] % (Auto) 8.4 Eos % (Auto) 0.2 L Baso % (Auto) 0.2 Neut # (Auto) 8300 H Lymph # (Auto) 1400 [place] # (Auto) 900 Eos # (Auto) 0 Baso # (Auto) 0 Sodium 137 Potassium 3.8 Chloride 101 Carbon Dioxide 27 BUN 25 H Creatinine 1.12 Estimated GFR > 60 BUN/Creatinine Ratio 22.3 H Glucose 379 H D Calcium 9.2 Magnesium 1.8 PFSH Medical History History of non-ST elevation myocardial infarction (NSTEMI) AGATHA treated with BiPAP Severe muscle deconditioning Sedentary lifestyle Closed non-physeal fracture of proximal phalanx of great toe with malunion Chronic ulcer of right foot limited to breakdown of skin Insulin dependent diabetes mellitus Peripheral vascular disease Hypertension Depression Toe amputation status Peripheral autonomic neuropathy Sepsis (02/27/17) Cellulitis (02/27/17) Sleep apnea MRSA (methicillin resistant Staphylococcus aureus) (02/27/17) Visit for wound care Essential tremor Thrombocytopenia Morbid obesity Polypharmacy Diabetes Surgical History History of amputation of lesser toe of right foot Family History Father Cancer Congestive heart failure Mother Cancer Social History household members: none Smoking Status: Never smoker alcohol intake: never Discharge Plan Discharge Plan Patient Disposition: Assisted Living Transfer to: [facility] Provider Discharge Comment: 68 M admitted with encephalopathy, likely hepatic. Urine culture with another E. faecalis, recommend therapy with fluoroquinolone for 7 days total for possible acute cystitis. Recommend increase in lactulose dosing, continue to titrate to 2-4 bowel movements per day. Continue Lantus, continue adjustments as previously working on at [facility]. Discharge orders & Medications Discharge Orders: Discharge (Order); Ordered 04/10/24 Ordered By: Thiago Hitchcock Prescriptions: New levofloxacin 750 mg tablet 750 mg PO DAILY 5 Days Qty: 5 0RF Continued furosemide 80 MG tablet 40 mg PO BID Qty: 0 Rx Instructions: 40 mg twice a day multivitamin Capsule 1 cap PO DAILY Rx Instructions: 2 gummys in am vitamin B complex Capsule 1 cap PO DAILY ferrous sulfate 325 mg (65 mg iron) Tablet 325 mg PO BID Rx Instructions: twice a day primidone 50 mg Tablet 200 tab PO BID Rx Instructions: 200mg two times a day for seizure prevention pantoprazole 40 mg tablet,delayed release (DR/EC) 40 mg PO DAILY Rx Instructions: in am acetaminophen 325 mg Tablet 650 mg PO Q6H PRN (Reason: Fever/Mild Pain (1-3)) Qty: 60 0RF atorvastatin 20 mg tablet 20 mg PO DAILY tamsulosin 0.4 mg capsule 0.4 mg PO DAILY bisacodyl 5 mg tablet,delayed release (DR/EC) 5 mg PO PRN PRN (Reason: Constipation) sennosides [senna] 8.6 mg tablet 17.2 mg PO DAILY oxycodone 10 mg tablet 10 mg PO TID PRN (Reason: Pain (Scale Score 4-6)) Rx Instructions: 1 tab every fours docusate sodium 100 mg Capsule 100 mg PO DAILY fluticasone propionate 50 mcg/actuation spray,suspension 2 spray intranasal DAILY Rx Instructions: 2 spray in both nostrils in evening Ozempic 0.25 mg or 0.5 mg (2 mg/3 mL) pen injector 0.5 mg SUBCUT WEEKLY Patient Comments: [NO ORIGINAL SIG] Rx Instructions: every monday metformin 500 mg 1,000 mg PO BID Rx Instructions: 1000 mg two times a day prednisolone acetate 1 % drops,suspension 1 drp EYE-BOTH DAILY Lantus Solostar U-100 Insulin 100 UNIT/1 ML pen injector 40 units SUBCUT QAM gabapentin 600 mg tablet 1,200 mg PO TID Patient Comments: [NO ORIGINAL SIG] Changed lactulose 10 gram/15 mL solution 45 ml PO TID Qty: 1200 0RF Follow up/Referrals: Barbara Rushing ARNP [Primary Care Provider] - Discharge Health Status Multidrug resistant organism: No MDRO Precautions: [place] Diet/Activity/Treatments Diet: Diet as Tolerated and Carb-consistent/Diabetic Liquid consistency: Normal/Thin Food texture: Regular Activity: No restrictions Visit Report/Discharge Packet Stand Alone Forms: Patient Portal/API, Stroke Signs & Symptoms Discharge Data Primary Care Provider: Barbara Rushing Attending Provider: Tex Ambrose Admit Date/Time: 04/08/24 16:43 Quality VTE Deep Vein Thrombosis/Pulmonary Embolism Present on Admission: No
--- NOTE | 2024-04-10 14:23 | CM.DPC ---
DCP Cont. Reviewed EMR and team rounds for status updates. Pt has been medically cleared for d/c back to [facility]. They will transport him at 3:00pm. Med list faxed to facility. No further CM d/c needs identified at this time.
== END 2024-04-10 15:10 ==
LOC: ED 13:17 → AC 16:44
PROVIDERS: Pharmacist Pharmacist Clinician (PhC)/ Clinical Pharmacy Specialist; Admitting Provider Hospitalist; Emergency Provider Student in an Organized Health Care Education/Training Program; Family Provider Nurse Practitioner Family; PCP Nurse Practitioner Family; Referring Provider Student in an Organized Health Care Education/Training Program; Visit Provider Hospitalist
DX: K76.82 Hepatic encephalopathy (principal); K72.10 Chronic hepatic failure without coma; N39.0 Urinary tract infection, site not specified; B95.2 Enterococcus as the cause of diseases classified elsewhere; I25.2 Old myocardial infarction; G47.33 Obstructive sleep apnea (adult) (pediatric); E11.42 Type 2 diabetes mellitus with diabetic polyneuropathy; N40.0 Benign prostatic hyperplasia without lower urinary tract symptoms; E78.5 Hyperlipidemia, unspecified; G25.0 Essential tremor; Z11.52 Encounter for screening for COVID-19; Z79.4 Long term (current) use of insulin; Z79.84 Long term (current) use of oral hypoglycemic drugs; Z79.85 Long-term (current) use of injectable non-insulin antidiabetic drugs; Z91.148 Patient's other noncompliance with medication regimen for other reason
CPT/HCPCS: 0241U; 36415; 70450; 71045; 80048; 80053; 80305; 81001; 82140; 82550; 82962; 83690; 83735; 84484; 85025; 87077; 87086; 87186; 93005; 96365; 96367; 96372; 99284; G0378; J0696; J1644; J1815; J1956

== ENCOUNTER → 2024-04-24 06:10 | Outpatient (ROUT) | payer MEDICARE, MEDICAID, SELFPAY ==
[2024-04-08 18:26] VITALS: BMI 38.5
[2024-04-25 03:10] LABS: HBsAg Screen Negative (Negative); Hepatitis A Antibody IgM Negative (Negative); Hepatitis B Core Antibody IgM Negative (Negative); Hepatitis C Antibody Non Reactive (Non Reactive)
== END ==
PROVIDERS: Family Provider Nurse Practitioner Family; PCP Nurse Practitioner Family; Visit Provider Nurse Practitioner Family
DX: K74.60 Unspecified cirrhosis of liver (principal)
CPT/HCPCS: 36415; 80074

== ENCOUNTER → 2024-05-28 12:54 | Outpatient (CLI) | payer MEDICARE, MEDICAID, SELFPAY ==
[2024-04-08 18:26] VITALS: BMI 38.5
--- NOTE | 2024-05-28 13:12 | DI.CT.S_ITS ---
PROCEDURE: CT ABDOMEN LIVER PROTOCOL INDICATIONS: CIRRHOSIS OF LIVER WO ASCITES TECHNIQUE: 4 phase scanning was performed. Non-contrast 5 mm axial sections acquired from the diaphragm to the iliac crests. Following the administration of intravenous contrast, 5 mm thick arterial-phase, portal venous-phase, and 5-minute delayed phase images were acquired through the liver. 5 mm thick coronal and sagittal reformats were performed. For radiation dose reduction, the following was used: automated exposure control, adjustment of mA and/or kV according to patient size. COMPARISON: [facility], CT, CT ABDOMEN PELVIS W CON, 01/11/2023, 15:44. FINDINGS: Image quality: Excellent. Lower chest: No pleural or pericardial effusion. Coronary artery calcification. ABDOMEN: Liver: Cirrhotic liver morphology. Punctate calcification in the left lobe. No arterially enhancing mass. Gallbladder: Partially decompressed. No visible stones. Biliary ducts: No biliary dilation. Pancreas: Pancreatic atrophy. No visible ductal dilatation. A few punctate glandular calcifications in the tail. Spleen: Mild splenomegaly at 14.4 cm in length. Adrenal Glands: No adrenal nodules. Kidneys and Ureters: Nonobstructing stones in both kidneys, the largest in the left midpole measures 1.1 cm. Cysts arising from the right kidney, one mildly hyperdense. No suspicious renal mass or hydronephrosis. Visible ureters are normal. Stomach and Bowel: Stomach and visible bowel loops are within normal limits. Peritoneum: No ascites. Ventral Wall: No hernia. Abdominal Nodes: No retroperitoneal or mesenteric adenopathy by size criteria. Vessels: Extensive, large varices in the right abdomen and retroperitoneum. Smaller varices in the left abdomen. Patent portal vein. Normal caliber IVC and aorta. Patent splenic vein. Bones: No aggressive osseous abnormality. IMPRESSION: Cirrhotic liver without CT evidence of suspicious liver lesion. Well compensated portal hypertension indicated by numerous, chronic varices. Nonobstructing bilateral intrarenal calculi. Findings consistent with chronic pancreatitis. Dictated by: Kristin Ortiz M.D. on 05/29/2024 at 11:40 Approved by: Kristin Ortiz M.D. on 05/29/2024 at 11:50
[2024-05-28 13:27] LABS: Hematocrit 33.5 % (41-53); Hemoglobin 11.3 g/dL (13.5-17.5); Mean Corpuscular HGB Conc 33.9 % (30-36); Mean Corpuscular Hemoglobin 31.5 PG (26-34); Mean Corpuscular Volume 92.9 fL (80-100); Platelet Count 192 X10^3/uL (150-400); Red Cell Distribution Width 14.4 % (11.6-14.8); White Blood Cell Count 8.1 X10^3/uL (4.5-11.0)
[2024-05-28 13:29] LABS: Estimated Glomerular Filt Rate > 60 mL/min (>60)
[2024-05-28 13:38] LABS: Ammonia (NH3) 33 umol/L (9-30); INR 1.1 (0.9-1.3); Prothrombin Time 12.6 SECONDS (9.4-12.5)
[2024-05-28 13:48] LABS: Alanine Aminotransferase 32 IU/L (<50); Albumin Globulin Ratio 1.5 (1.0-2.8); Alkaline Phosphatase 74 U/L (38-126); Aspartate Aminotransferase 35 IU/L (17-59); BUN Creatinine Ratio 20.8 (6-22); Bilirubin Total 0.6 mg/dL (0.2-1.3); Blood Urea Nitrogen 22 mg/dL (9-20); Calcium 9.5 mg/dL (8.4-10.2); Carbon Dioxide 29 mmol/L (22-32); Chloride 102 mmol/L (98-107); Estimated Glomerular Filt Rate > 60 mL/min (>60); Globulin 2.7 g/dL (1.7-4.1); Glucose 153 mg/dL (80-110); HEMOLYSIS < 15 (0-50); Potassium 4.2 mmol/L (3.4-5.1); Sodium 140 mmol/L (137-145); Total Protein 6.7 g/dL (6.3-8.2)
[2024-05-29 07:09] LABS: Alpha Fetoprotein 1.8 ng/mL (0.0-8.4)
== END ==
LOC: CT 12:56
PROVIDERS: Family Provider Nurse Practitioner Family; PCP Nurse Practitioner Family; Referring Provider Internal Medicine; Visit Provider Internal Medicine
DX: K74.60 Unspecified cirrhosis of liver (principal); K76.6 Portal hypertension; I86.8 Varicose veins of other specified sites; R16.1 Splenomegaly, not elsewhere classified; K86.89 Other specified diseases of pancreas; N20.0 Calculus of kidney; N28.1 Cyst of kidney, acquired; I25.10 Atherosclerotic heart disease of native coronary artery without angina pectoris
CPT/HCPCS: 36415; 74170; 80053; 82105; 82140; 82565; 83516; 85027; 85610; 86015; 86036; 86038; 86235; 86376; 86381; Q9967

== ENCOUNTER 2024-06-27 14:30 | Outpatient (RCR) | payer MEDICARE, MEDICAID, SELFPAY ==
[2024-03-05 12:49] VITALS: BMI 39.0
[2024-04-08 18:26] VITALS: BMI 38.5
--- NOTE | 2024-04-30 13:00 | PT.OIE ---
Current Diagnoses Non-pressure chronic ulcer of other part of unspecified foot with unspecified severity (04/30/24) Unsteadiness on feet (04/30/24) Other abnormalities of gait and mobility (04/30/24) Repeated falls (04/30/24) Past Medical History (Last Reviewed 04/08/24 @ 16:50 by Tex Ambrose MD) Cellulitis (02/27/17) Chronic ulcer of right foot limited to breakdown of skin Closed non-physeal fracture of proximal phalanx of great toe with malunion Depression Diabetes Essential tremor History of non-ST elevation myocardial infarction (NSTEMI) Hypertension Insulin dependent diabetes mellitus Morbid obesity MRSA (methicillin resistant Staphylococcus aureus) (02/27/17) AGATHA treated with BiPAP Peripheral autonomic neuropathy Peripheral vascular disease Polypharmacy Sedentary lifestyle Sepsis (02/27/17) Severe muscle deconditioning Sleep apnea Thrombocytopenia Toe amputation status Visit for wound care Past Surgical History (Last Reviewed 04/08/24 @ 16:50 by Tex Ambrose MD) History of amputation of lesser toe of right foot Visit Care Team Role Provider Type BERRY Singletary Attending Provider Non-Staff Family Provider Primary Care Provider Referring Provider Specialty: Medical Address: [address] [place] [address], [facility] Email: Physical Therapy Initial Evaluation PT-OP-A Visit Information Start: 04/30/24 13:38 Freq: Status: Active Protocol: Document 04/30/24 12:15 DCW (Rec: 04/30/24 13:41 DCW [id number]) Out-Patient Physical Therapy Visit Information Visit Information Visit Type Initial Evaluation Visit Start Time 12:15 Visit Stop Time 13:00 Visit Number 1 Number of OFFAL WORKER Visits 0 Evaluation Information Evaluation Date 04/30/24 PT-OP-B Current Condition Start: 04/30/24 13:38 Freq: Status: Active Protocol: Document 04/30/24 12:15 DCW (Rec: 04/30/24 17:53 DCW [id number]) Current Condition History of Current Condition Onset Date Multi-year history Current Complaints Falls, unsteadiness, neuropathy History of Current Condition Pt is a 68 year old male with a long-standing history of gait instability, neuropathy, and falls history. Pt reports he has been diagnosed with severe diabetic neuropathy, and has minimal proprioception feedback from his feel. Uses 4WW when out in the community, or electric carts at stores. Uses 4WW in stud apartment when able, but admits to furniture surfing most of the time because he doesn't have enough room for the walker. Lives at [facility], where he has resided for ~8 years. Does have a transfer pole in his bathroom between the shower and toilet. Does admit to a fall one week ago, getting out of the passenger side of the transport van, he took a side-step, stumbled, and fell, scraping his knee and hitting his head. Notes he was checked out by golf instructor, and was cleared. More concerned with falls because quite frankly, I can't get up. PT-OP-C Subjective Start: 04/30/24 13:38 Freq: Status: Active Protocol: Document 04/30/24 12:15 DCW (Rec: 04/30/24 13:41 DCW [id number]) OP-PT Subjective Patient Comments Patient Comments I don't see the neuropathy improving, it's a downward slope. I guess I'm resigned that it won't get better, but if I can, I want my balance to be better. PT-OP-D Balance Start: 04/30/24 13:38 Freq: Status: Active Protocol: Document 04/30/24 12:15 DCW (Rec: 04/30/24 13:43 DCW [id number]) Balance Tests Rhodes Balance Test Rhodes Balance Test Score 40/56 Rhodes Impairment Rating 20 to 39% Impaired (Score 34- 44) Rhodes Balance Assessment Evaluation Sitting to Standing Ability Independent w/out Hands Unsupported Stance Safely- 2 minutes Sitting Unsupported, Feet on Floor Safely- 2 minutes Standing to Sitting Ability Safely, Minimal Hand Use Transfer Ability Safely, Minimal Hand Use Unsupported Stance- Eyes Closed Supervision, 10 seconds Unsupported Stance- Eyes Open Assist to attain, 15 secs Reaching Forward Standing Safely, 5 inches Pick- Up Object From Floor Supervision Look Behind Shoulder - Standing Shifts Weight Unilateral Turning 360 Degrees Turns slowly, but safely Unsupported Stance, Alternating Feet on 4 Steps w/Supervision Stair Unsupported Tandem Stance Small Step- 30 seconds Unilateral Leg Stance Lifts Leg/Unable to Hold Total Score Rhodes Total Score (out of 56 points) 40 Rhodes Impairment Rating 20 to 39% Impaired (Score 34- 44) PT-OP-E Functional Tests Start: 04/30/24 13:38 Freq: Status: Active Protocol: Document 04/30/24 12:15 DCW (Rec: 04/30/24 13:43 DCW [id number]) Functional Tests Five Times Sit to Stand Test Score 25.24 Comments Mild UE use PT-OP-M Strength Start: 04/30/24 13:38 Freq: Status: Active Protocol: Document 04/30/24 12:15 DCW (Rec: 04/30/24 13:41 DCW [id number]) Hip Strength Hip Manual Muscle Testing Right Flexion (L2) 4 Good Extension (S1) 4- Good- Abduction 4- Good- Adduction 4 Good Left Flexion (L2) 4 Good Extension (S1) 4- Good- Abduction 4- Good- Adduction 4 Good Knee Strength Knee Manual Muscle Testing Right Flexion (S2) 4 Good Extension (L3) 4 Good Left Flexion (S2) 4 Good Extension (L3) 4 Good PT-OP-T Assessment and Plan Start: 04/30/24 13:38 Freq: Status: Active Protocol: Document 04/30/24 12:15 DCW (Rec: 04/30/24 17:53 DCW [id number]) Physical Therapy Assessment Rehab Potential Rehabilitation Potential Fair Evaluation Complexity Number of Personal Factors/Comorbidities 3 or More Number of Body Systems Impaired 4 or More Clinical Presentation at Evaluation Unstable Impairments Impairments Activity Tolerance,Balance, Functional Activities, Functional Mobility,Posture, Soft Tissue Mobility,Strength Other Concerns Fall Risk Yes, per falls history and Rhodes Balance score of 40/56 Goals Three Impairment Pt completes Five times Sit to coat operator insulator 25.24 Mcc Goal (LTG) Pt to improve time on 5xStS to <20 in order to demonstrate improved activity tolerance LTG Duration 06/30/24 Two Impairment Score on Rhodes Balance scale ( 40/56) indicates an increased falls risk Mcc Goal (LTG) Pt to improve score on Rhodes Balance scale by at least 6 points to 46/56 in order to demonstrate a reduced falls risk. LTG Duration 06/30/24 One Impairment Pt does not have an appropriate home exercise program Short Term Goal (STG) Pt to be independent and compliant with an appropriate HEP STG Duration 05/31/24 Assessment Summary Assessment Pt presents with signs and symptoms consistent with referring diagnosis. Pt presents with a highly complex medical history. With a Rhodes Balance score of 40/56, pt exhibits an increased falls risk, with a history of falls. Pt demonstrates decreased activity tolerance and LE weakness. Pt's severe diabetic neuropathy will be a limiting factor for PT. Pt should benefit from skilled therapeutic intervention focusing on balance challenges , gait training, LE strengthening, improved activity tolerance, and general conditioning. Physical Therapy Plan Frequency and Duration Frequency of Treatment 2x/Week Plan of Care Start Date 04/30/24 Plan of Care End Date 06/30/24 Therapeutic Interventions Therapeutic Interventions Balance Training,Coordination Training,Gait Training,Home Exercise Program,Manual Therapy,Neuromuscular Re- education,Patient/Caregiver Education,Self-Care/Home Management,Soft Tissue Mobilization,Therapeutic Activities,Therapeutic Exercises,Vestibular Rehabilitation Next Visit Focus/Plan Next Note Type Treatment Note Next Visit Plan Balance challenges, LE strengthening, activity tolerance
--- NOTE | 2024-04-30 13:00 | PT.OPPOC ---
Physical, Occupational & Speech Therapy At [facility] Current Diagnoses Non-pressure chronic ulcer of other part of unspecified foot with unspecified severity (04/30/24) Unsteadiness on feet (04/30/24) Other abnormalities of gait and mobility (04/30/24) Repeated falls (04/30/24) Visit Care Team Role Provider Type BERRY Singletary Attending Provider Non-Staff Family Provider Primary Care Provider Referring Provider Specialty: Medical Address: [address] [place] [address], [id number] Email: Plan Of Care PT-OP-B Current Condition Start: 04/30/24 13:38 Freq: Status: Active Protocol: Document 04/30/24 12:15 DCW (Rec: 04/30/24 17:53 DCW [id number]) Current Condition History of Current Condition Onset Date Multi-year history Current Complaints Falls, unsteadiness, neuropathy History of Current Condition Pt is a 68 year old male with a long-standing history of gait instability, neuropathy, and falls history. Pt reports he has been diagnosed with severe diabetic neuropathy, and has minimal proprioception feedback from his feel. Uses 4WW when out in the community, or electric carts at stores. Uses 4WW in studio apartment when able, but admits to furniture surfing most of the time because he doesn't have enough room for the walker. Lives at [facility], where he has resided for ~8 years. Does have a transfer pole in his bathroom between the shower and toilet. Does admit to a fall one week ago, getting out of the passenger side of the transport van, he took a side-step, stumbled, and fell, scraping his knee and hitting his head. Notes he was checked out by rail maintenance worker, and was cleared. More concerned with falls because quite frankly, I can't get up. PT-OP-T Assessment and Plan Start: 04/30/24 13:38 Freq: Status: Active Protocol: Document 04/30/24 12:15 DCW (Rec: 04/30/24 17:53 DCW [id number]) Physical Therapy Assessment Rehab Potential Rehabilitation Potential Fair Evaluation Complexity Number of Personal Factors/Comorbidities 3 or More Number of Body Systems Impaired 4 or More Clinical Presentation at Evaluation Unstable Impairments Impairments Activity Tolerance,Balance, Functional Activities, Functional Mobility,Posture, Soft Tissue Mobility,Strength Other Concerns Fall Risk Yes, per falls history and Rhodes Balance score of 40/56 Goals Three Impairment Pt completes Five times Sit to commercial insurance underwriter 25.24 Care Home Goal (LTG) Pt to improve time on 5xStS to <20 in order to demonstrate improved activity tolerance LTG Duration 06/30/24 Two Impairment Score on Rhodes Balance scale ( 40/56) indicates an increased falls risk [employer] Center Display Builder Goal (LTG) Pt to improve score on Rhodes Balance scale by at least 6 points to 46/56 in order to demonstrate a reduced falls risk. LTG Duration 06/30/24 One Impairment Pt does not have an appropriate home exercise program Short Term Goal (STG) Pt to be independent and compliant with an appropriate HEP STG Duration 05/31/24 Assessment Summary Assessment Pt presents with signs and symptoms consistent with referring diagnosis. Pt presents with a highly complex medical history. With a Rhodes Balance score of 40/56, pt exhibits an increased falls risk, with a history of falls. Pt demonstrates decreased activity tolerance and LE weakness. Pt's severe diabetic neuropathy will be a limiting factor for PT. Pt should benefit from skilled therapeutic intervention focusing on balance challenges , gait training, LE strengthening, improved activity tolerance, and general conditioning. Physical Therapy Plan Frequency and Duration Frequency of Treatment 2x/Week Plan of Care Start Date 04/30/24 Plan of Care End Date 06/30/24 Therapeutic Interventions Therapeutic Interventions Balance Training,Coordination Training,Gait Training,Home Exercise Program,Manual Therapy,Neuromuscular Re- education,Patient/Caregiver Education,Self-Care/Home Management,Soft Tissue Mobilization,Therapeutic Activities,Therapeutic Exercises,Vestibular Rehabilitation Next Visit Focus/Plan Next Note Type Treatment Note Next Visit Plan Balance challenges, LE strengthening, activity tolerance Plan of Care Dates Plan of Care Start Date 04/30/24 Plan of Care End Date 06/30/24 Electronically Signed by: Bigg Gruber, PT 05/01/24 0942 If you are in agreement with this Plan of Care, please return a signed and dated copy. I have reviewed this Plan of Care and certify that the skilled therapy services above are required to meet the patient?s needs. Physician Signature Date Printed Name and Credentials Clinical Instructor Signature Printed Name and Credentials
--- NOTE | 2024-05-03 11:29 | PT.OTN ---
Current Diagnoses Non-pressure chronic ulcer of other part of unspecified foot with unspecified severity (05/03/24) Unsteadiness on feet (05/03/24) Other abnormalities of gait and mobility (05/03/24) Repeated falls (05/03/24) Physical Therapy Treatment Note PT-OP-A Visit Information Start: 04/30/24 13:38 Freq: Status: Active Protocol: Document 05/03/24 10:45 DCW (Rec: 05/03/24 11:28 DCW [id number]) Out-Patient Physical Therapy Visit Information Visit Information Visit Type Treatment Note Visit Start Time 10:45 Visit Stop Time 11:30 Visit Number 2 Number of LOCK INSTALLER Visits 0 Evaluation Information Evaluation Date 04/30/24 PT-OP-B Current Condition Start: 04/30/24 13:38 Freq: Status: Active Protocol: Document 04/30/24 12:15 DCW (Rec: 04/30/24 17:53 DCW [id number]) Current Condition History of Current Condition Onset Date Multi-year history Current Complaints Falls, unsteadiness, neuropathy History of Current Condition Pt is a 68 year old male with a long-standing history of gait instability, neuropathy, and falls history. Pt reports he has been diagnosed with severe diabetic neuropathy, and has minimal proprioception feedback from his feel. Uses 4WW when out in the community, or electric carts at stores. Uses 4WW in [facility] apartment when able, but admits to furniture surfing most of the time because he doesn't have enough room for the walker. Lives at [facility], where he has resided for ~8 years. Does have a transfer pole in his bathroom between the shower and toilet. Does admit to a fall one week ago, getting out of the passenger side of the transport van, he took a side-step, stumbled, and fell, scraping his knee and hitting his head. Notes he was checked out by interpersonal communications professor, and was cleared. More concerned with falls because quite frankly, I can't get up. PT-OP-C Subjective Start: 04/30/24 13:38 Freq: Status: Active Protocol: Document 05/03/24 10:45 DCW (Rec: 05/03/24 11:28 DCW [id number]) OP-PT Subjective Patient Comments Patient Comments Pt notes his right knee is still a little sore following his fall a few weeks ago. PT-OP-D Balance Start: 04/30/24 13:38 Freq: Status: Active Protocol: Document 04/30/24 12:15 DCW (Rec: 04/30/24 13:43 DCW [id number]) Balance Tests Rhodes Balance Test Rhodes Balance Test Score 40/56 Rhodes Impairment Rating 20 to 39% Impaired (Score 34- 44) Rhodes Balance Assessment Evaluation Sitting to Standing Ability Independent w/out Hands Unsupported Stance Safely- 2 minutes Sitting Unsupported, Feet on Floor Safely- 2 minutes Standing to Sitting Ability Safely, Minimal Hand Use Transfer Ability Safely, Minimal Hand Use Unsupported Stance- Eyes Closed Supervision, 10 seconds Unsupported Stance- Eyes Open Assist to attain, 15 secs Reaching Forward Standing Safely, 5 inches Pick- Up Object From Floor Supervision Look Behind Shoulder - Standing Shifts Weight Unilateral Turning 360 Degrees Turns slowly, but safely Unsupported Stance, Alternating Feet on 4 Steps w/Supervision Stair Unsupported Tandem Stance Small Step- 30 seconds Unilateral Leg Stance Lifts Leg/Unable to Hold Total Score Rhodes Total Score (out of 56 points) 40 Rhodes Impairment Rating 20 to 39% Impaired (Score 34- 44) PT-OP-E Functional Tests Start: 04/30/24 13:38 Freq: Status: Active Protocol: Document 04/30/24 12:15 DCW (Rec: 04/30/24 13:43 DCW [id number]) Functional Tests Five Times Sit to Stand Test Score 25.24 Comments Mild UE use PT-OP-M Strength Start: 04/30/24 13:38 Freq: Status: Active Protocol: Document 04/30/24 12:15 DCW (Rec: 04/30/24 13:41 DCW [id number]) Hip Strength Hip Manual Muscle Testing Right Flexion (L2) 4 Good Extension (S1) 4- Good- Abduction 4- Good- Adduction 4 Good Left Flexion (L2) 4 Good Extension (S1) 4- Good- Abduction 4- Good- Adduction 4 Good Knee Strength Knee Manual Muscle Testing Right Flexion (S2) 4 Good Extension (L3) 4 Good Left Flexion (S2) 4 Good Extension (L3) 4 Good PT-OP-Q Treatments Start: 04/30/24 13:38 Freq: Status: Active Protocol: Document 05/03/24 10:45 DCW (Rec: 05/03/24 11:28 DCW [id number]) Gym Equipment Shuttle Recovery Unilateral Squats Resistance 62# Shuttle Recovery Platform Stable Bilateral Squats Resistance 75# Shuttle Recovery Platform Stable Therapeutic Exercises Standing Exercises Hip Extension Standing Exercise Name Hip Extension Side bilateral Resistance Green Other Exercises Resisted Ambulation Other Exercise Name Resisted Side-stepping Resistance Green Neuro Re-Education Treatment Balance Activities Semi-tandem Details Semi-tandem stance Equipment // bars Foam Details NBOS, EO/EC Equipment AirEx Hurdles Details Hurdles Equipment // bars Comments Forward, Side-stepping PT-OP-T Assessment and Plan Start: 04/30/24 13:38 Freq: Status: Active Protocol: Document 05/03/24 10:45 DCW (Rec: 05/03/24 11:28 HIW [id number]) Physical Therapy Assessment Impairments Impairments Activity Tolerance,Balance, Functional Activities, Functional Mobility,Posture, Soft Tissue Mobility,Strength Goals Three Impairment Pt completes Five times Sit to insurance law specialist 25.24 Art Preparator Goal (LTG) Pt to improve time on 5xStS to <20 in order to demonstrate improved activity tolerance LTG Duration 06/30/24 Two Impairment Score on Rhodes Balance scale ( 40/56) indicates an increased falls risk Longterm Goal (LTG) Pt to improve score on Rhodes Balance scale by at least 6 points to 46/56 in order to demonstrate a reduced falls risk. LTG Duration 06/30/24 One Impairment Pt does not have an appropriate home exercise program Short Term Goal (STG) Pt to be independent and compliant with an appropriate HEP STG Duration 05/31/24 Assessment Summary Assessment Pt fatigued by end of session, but overall tolerated well. Good challenge with balance activities. Continue to focus on balance and LE strengthening, as well as increasing activity tolerance. Physical Therapy Plan Frequency and Duration Frequency of Treatment 2x/Week Plan of Care Start Date 04/30/24 Plan of Care End Date 06/30/24 Therapeutic Interventions Therapeutic Interventions Balance Training,Coordination Training,Gait Training,Home Exercise Program,Manual Therapy,Neuromuscular Re- education,Patient/Caregiver Education,Self-Care/Home Management,Soft Tissue Mobilization,Therapeutic Activities,Therapeutic Exercises,Vestibular Rehabilitation Next Visit Focus/Plan Next Note Type Treatment Note Next Visit Plan Balance challenges, LE strengthening, activity tolerance
--- NOTE | 2024-05-07 11:43 | PT.OTN ---
Current Diagnoses Non-pressure chronic ulcer of other part of unspecified foot with unspecified severity (05/07/24) Unsteadiness on feet (05/07/24) Other abnormalities of gait and mobility (05/07/24) Repeated falls (05/07/24) Physical Therapy Treatment Note PT-OP-A Visit Information Start: 04/30/24 13:38 Freq: Status: Active Protocol: Document 05/07/24 10:43 AB (Rec: 05/07/24 11:43 AB [id number]) Out-Patient Physical Therapy Visit Information Visit Information Visit Type Treatment Note Visit Start Time 10:50 Visit Stop Time 11:34 Visit Number 3 Number of SUPERVISOR DISPLAY FABRICATION Visits 1 Evaluation Information Evaluation Date 04/30/24 PT-OP-B Current Condition Start: 04/30/24 13:38 Freq: Status: Active Protocol: Document 04/30/24 12:15 DCW (Rec: 04/30/24 17:53 DCW [id number]) Current Condition History of Current Condition Onset Date Multi-year history Current Complaints Falls, unsteadiness, neuropathy History of Current Condition Pt is a 68 year old male with a long-standing history of gait instability, neuropathy, and falls history. Pt reports he has been diagnosed with severe diabetic neuropathy, and has minimal proprioception feedback from his feel. Uses 4WW when out in the community, or electric carts at stores. Uses 4WW in stud apartment when able, but admits to furniture surfing most of the time because he doesn't have enough room for the walker. Lives at [facility], where he has resided for ~8 years. Does have a transfer pole in his bathroom between the shower and toilet. Does admit to a fall one week ago, getting out of the passenger side of the transport van, he took a side-step, stumbled, and fell, scraping his knee and hitting his head. Notes he was checked out by ball worker, and was cleared. More concerned with falls because quite frankly, I can't get up. PT-OP-C Subjective Start: 04/30/24 13:38 Freq: Status: Active Protocol: Document 05/07/24 10:43 AB (Rec: 05/07/24 11:43 AB [id number]) OP-PT Subjective Patient Comments Patient Comments Patient reports he is on a medication that makes hip poop . Patient reports no falls since he was here last. Patient reports having no pain start of session. PT-OP-D Balance Start: 04/30/24 13:38 Freq: Status: Active Protocol: Document 04/30/24 12:15 DCW (Rec: 04/30/24 13:43 DCW [id number]) Balance Tests Rhodes Balance Test Rhodes Balance Test Score 40/56 Rhodes Impairment Rating 20 to 39% Impaired (Score 34- 44) Rhodes Balance Assessment Evaluation Sitting to Standing Ability Independent w/out Hands Unsupported Stance Safely- 2 minutes Sitting Unsupported, Feet on Floor Safely- 2 minutes Standing to Sitting Ability Safely, Minimal Hand Use Transfer Ability Safely, Minimal Hand Use Unsupported Stance- Eyes Closed Supervision, 10 seconds Unsupported Stance- Eyes Open Assist to attain, 15 secs Reaching Forward Standing Safely, 5 inches Pick- Up Object From Floor Supervision Look Behind Shoulder - Standing Shifts Weight Unilateral Turning 360 Degrees Turns slowly, but safely Unsupported Stance, Alternating Feet on 4 Steps w/Supervision Stair Unsupported Tandem Stance Small Step- 30 seconds Unilateral Leg Stance Lifts Leg/Unable to Hold Total Score Rhodes Total Score (out of 56 points) 40 Rhodes Impairment Rating 20 to 39% Impaired (Score 34- 44) PT-OP-E Functional Tests Start: 04/30/24 13:38 Freq: Status: Active Protocol: Document 04/30/24 12:15 DCW (Rec: 04/30/24 13:43 DCW [id number]) Functional Tests Five Times Sit to Stand Test Score 25.24 Comments Mild UE use PT-OP-M Strength Start: 04/30/24 13:38 Freq: Status: Active Protocol: Document 04/30/24 12:15 DCW (Rec: 04/30/24 13:41 DCW [id number]) Hip Strength Hip Manual Muscle Testing Right Flexion (L2) 4 Good Extension (S1) 4- Good- Abduction 4- Good- Adduction 4 Good Left Flexion (L2) 4 Good Extension (S1) 4- Good- Abduction 4- Good- Adduction 4 Good Knee Strength Knee Manual Muscle Testing Right Flexion (S2) 4 Good Extension (L3) 4 Good Left Flexion (S2) 4 Good Extension (L3) 4 Good PT-OP-Q Treatments Start: 04/30/24 13:38 Freq: Status: Active Protocol: Document 05/07/24 10:43 AB (Rec: 05/07/24 11:43 AB [id number]) Gym Equipment Shuttle Recovery Unilateral Squats Resistance 62# Shuttle Recovery Platform Stable Reps/Time X15 each LE Bilateral Squats Resistance 75# Shuttle Recovery Platform Stable Reps/Time X16 Therapeutic Exercises Sitting Exercises seated hip abd with band Side bilateral Reps/Minutes one min X 1, X 12 without hold Comments verbal cues Standing Exercises heel raise Side bilateral Equipment Used HEP Reps/Minutes X15 Comments with UE use verbal cues to perform slowly side stepping with band Side bilateral Resistance level 3 band Reps/Minutes 10 feet X 3 left and right Hip Extension Standing Exercise Name Hip Extension Side bilateral Resistance Green Reps/Minutes X15 Neuro Re-Education Treatment Balance Activities step up taps Details CGA hands above bars Surface 4 inch step Reps/Duration X8 each LE Semi-tandem Details Semi-tandem stance Equipment // bars Reps/Duration 10 feet X 2 Comments CGA Foam Details NBOS, EO/EC Equipment AirEx Comments CGA Hurdles Details Hurdles with UE support Equipment // bars Comments Forward, Side-stepping PT-OP-T Assessment and Plan Start: 04/30/24 13:38 Freq: Status: Active Protocol: Document 05/07/24 10:43 AB (Rec: 05/07/24 11:43 AB [id number]) Physical Therapy Assessment Goals Three Impairment Pt completes Five times Sit to ring striker 25.24 Water Meter Installer Goal (LTG) Pt to improve time on 5xStS to <20 in order to demonstrate improved activity tolerance LTG Duration 06/30/24 Two Impairment Score on Rhodes Balance scale ( 40/56) indicates an increased falls risk Water Meter Installer Goal (LTG) Pt to improve score on Rhodes Balance scale by at least 6 points to 46/56 in order to demonstrate a reduced falls risk. LTG Duration 06/30/24 One Impairment Pt does not have an appropriate home exercise program Short Term Goal (STG) Pt to be independent and compliant with an appropriate HEP STG Duration 05/31/24 Assessment Summary Assessment Patient reports having muscle soreness (gestures to quads) and verbalizes calves, end of session. Requires increased UE use for balance exercises. Physical Therapy Plan Frequency and Duration Frequency of Treatment 2x/Week Plan of Care Start Date 04/30/24 Plan of Care End Date 06/30/24 Next Visit Focus/Plan Next Note Type Treatment Note Next Visit Plan Balance challenges, LE strengthening, activity tolerance
--- NOTE | 2024-05-10 14:34 | PT.OTN ---
Current Diagnoses Non-pressure chronic ulcer of other part of unspecified foot with unspecified severity (05/10/24) Unsteadiness on feet (05/10/24) Other abnormalities of gait and mobility (05/10/24) Repeated falls (05/10/24) Physical Therapy Treatment Note PT-OP-A Visit Information Start: 04/30/24 13:38 Freq: Status: Active Protocol: Document 05/10/24 13:46 NBM (Rec: 05/10/24 14:31 NBM [id number]) Out-Patient Physical Therapy Visit Information Visit Information Visit Type Treatment Note Visit Start Time 13:46 Visit Stop Time 14:31 Visit Number 4 Number of STEEL MANAGER Visits 2 Evaluation Information Evaluation Date 04/30/24 PT-OP-B Current Condition Start: 04/30/24 13:38 Freq: Status: Active Protocol: Document 04/30/24 12:15 DCW (Rec: 04/30/24 17:53 DCW [id number]) Current Condition History of Current Condition Onset Date Multi-year history Current Complaints Falls, unsteadiness, neuropathy History of Current Condition Pt is a 68 year old male with a long-standing history of gait instability, neuropathy, and falls history. Pt reports he has been diagnosed with severe diabetic neuropathy, and has minimal proprioception feedback from his feel. Uses 4WW when out in the community, or electric carts at stores. Uses 4WW in stud apartment when able, but admits to furniture surfing most of the time because he doesn't have enough room for the walker. Lives at [facility], where he has resided for ~8 years. Does have a transfer pole in his bathroom between the shower and toilet. Does admit to a fall one week ago, getting out of the passenger side of the transport van, he took a side-step, stumbled, and fell, scraping his knee and hitting his head. Notes he was checked out by filtrose crusher, and was cleared. More concerned with falls because quite frankly, I can't get up. PT-OP-C Subjective Start: 04/30/24 13:38 Freq: Status: Active Protocol: Document 05/10/24 13:46 NBM (Rec: 05/10/24 14:31 NBM [id number]) OP-PT Subjective Patient Comments Patient Comments Josue reports no new falls or near falls. He's lost 30# in last two months with Brianne and is aware. PT-OP-D Balance Start: 04/30/24 13:38 Freq: Status: Active Protocol: Document 04/30/24 12:15 DCW (Rec: 04/30/24 13:43 DCW [id number]) Balance Tests Rhodes Balance Test Rhodes Balance Test Score 40/56 Rhodes Impairment Rating 20 to 39% Impaired (Score 34- 44) Rhodes Balance Assessment Evaluation Sitting to Standing Ability Independent w/out Hands Unsupported Stance Safely- 2 minutes Sitting Unsupported, Feet on Floor Safely- 2 minutes Standing to Sitting Ability Safely, Minimal Hand Use Transfer Ability Safely, Minimal Hand Use Unsupported Stance- Eyes Closed Supervision, 10 seconds Unsupported Stance- Eyes Open Assist to attain, 15 secs Reaching Forward Standing Safely, 5 inches Pick- Up Object From Floor Supervision Look Behind Shoulder - Standing Shifts Weight Unilateral Turning 360 Degrees Turns slowly, but safely Unsupported Stance, Alternating Feet on 4 Steps w/Supervision Stair Unsupported Tandem Stance Small Step- 30 seconds Unilateral Leg Stance Lifts Leg/Unable to Hold Total Score Rhodes Total Score (out of 56 points) 40 Rhodes Impairment Rating 20 to 39% Impaired (Score 34- 44) PT-OP-E Functional Tests Start: 04/30/24 13:38 Freq: Status: Active Protocol: Document 04/30/24 12:15 DCW (Rec: 04/30/24 13:43 DCW [id number]) Functional Tests Five Times Sit to Stand Test Score 25.24 Comments Mild UE use PT-OP-M Strength Start: 04/30/24 13:38 Freq: Status: Active Protocol: Document 04/30/24 12:15 DCW (Rec: 04/30/24 13:41 DCW [id number]) Hip Strength Hip Manual Muscle Testing Right Flexion (L2) 4 Good Extension (S1) 4- Good- Abduction 4- Good- Adduction 4 Good Left Flexion (L2) 4 Good Extension (S1) 4- Good- Abduction 4- Good- Adduction 4 Good Knee Strength Knee Manual Muscle Testing Right Flexion (S2) 4 Good Extension (L3) 4 Good Left Flexion (S2) 4 Good Extension (L3) 4 Good PT-OP-Q Treatments Start: 04/30/24 13:38 Freq: Status: Active Protocol: Document 05/10/24 13:46 NB (Rec: 05/10/24 14:31 [facility] [id number]) Gym Equipment Shuttle Recovery Heel raise Details Abdi Heel raises, followed by 1 calf stretch Resistance 62# Shuttle Recovery Platform Stable Reps/Time x15, cues for full range Unilateral Squats Details cues for LE alignment Resistance 62# Shuttle Recovery Platform Stable Reps/Time X15 each LE Bilateral Squats Details cues for LE alignment Resistance 75# Shuttle Recovery Platform Stable Reps/Time x5 no ball, x15 w/ ball squeeze Shuttle Balance red clips Details Next Session Comments WBOS, NBOS, Staggered a/p weighshifting, EO/EC Therapeutic Exercises Standing Exercises Hip Extension Standing Exercise Name Hip Extension Side bilateral Resistance Green Reps/Minutes X10 ea Comments cues for straight leg, no arching back. Other Exercises Resisted Ambulation Other Exercise Name Resisted Side-stepping Resistance Level 3 Green TB Equipment Used handrail Reps/Minutes 2x12 ft ea Comments cues for upright posture, neutral foot position Neuro Re-Education Treatment Balance Activities tandem Details fwd/bwd walking Surface firm Equipment L handrail assist Reps/Duration 2x10ft ea Comments cues for upright posture Semi-tandem Details Semi-tandem stance Equipment // bars Reps/Duration 10 feet X 2 Comments CGA PT-OP-T Assessment and Plan Start: 04/30/24 13:38 Freq: Status: Active Protocol: Document 05/10/24 13:46 [facility] (Rec: 05/10/24 14:31 [facility] [id number]) Physical Therapy Assessment Goals Three Impairment Pt completes Five times Sit to twisting press operator 25.24 Energy And Sustainability Manager Goal (LTG) Pt to improve time on 5xStS to <20 in order to demonstrate improved activity tolerance LTG Duration 06/30/24 Two Impairment Score on Rhodes Balance scale ( 40/56) indicates an increased falls risk Energy And Sustainability Manager Goal (LTG) Pt to improve score on Rhodes Balance scale by at least 6 points to 46/56 in order to demonstrate a reduced falls risk. LTG Duration 06/30/24 One Impairment Pt does not have an appropriate home exercise program Short Term Goal (STG) Pt to be independent and compliant with an appropriate HEP STG Duration 05/31/24 Assessment Summary Assessment Josue requires consistent cues for upright posture with gluteal activation instead of lumbar hyperextension, but demos improved awareness with cueing and repetition. He requires cues for neutral foot positioning with resisted sidesteps, and LE alignment improves on Shuttle Recovery w / hip adduction. Physical Therapy Plan Frequency and Duration Frequency of Treatment 2x/Week Plan of Care Start Date 04/30/24 Plan of Care End Date 06/30/24 Therapeutic Interventions Therapeutic Interventions Balance Training,Coordination Training,Gait Training,Home Exercise Program,Manual Therapy,Neuromuscular Re- education,Patient/Caregiver Education,Self-Care/Home Management,Soft Tissue Mobilization,Therapeutic Activities,Therapeutic Exercises,Vestibular Rehabilitation Next Visit Focus/Plan Next Note Type Treatment Note Next Visit Plan Next: Consider Shuttle Balance POC: Balance challenges, LE strengthening, activity tolerance
--- NOTE | 2024-05-13 14:32 | PT.OTN ---
Current Diagnoses Non-pressure chronic ulcer of other part of unspecified foot with unspecified severity (05/13/24) Unsteadiness on feet (05/13/24) Other abnormalities of gait and mobility (05/13/24) Repeated falls (05/13/24) Physical Therapy Treatment Note PT-OP-A Visit Information Start: 04/30/24 13:38 Freq: Status: Active Protocol: Document 05/13/24 13:54 SP (Rec: 05/13/24 14:31 SP [id number]) Out-Patient Physical Therapy Visit Information Visit Information Visit Type Treatment Note Visit Start Time 13:54 Visit Stop Time 14:32 Visit Number 5 Number of MINER OPERATOR Visits 3 Evaluation Information Evaluation Date 04/30/24 PT-OP-B Current Condition Start: 04/30/24 13:38 Freq: Status: Active Protocol: Document 04/30/24 12:15 DCW (Rec: 04/30/24 17:53 DCW [id number]) Current Condition History of Current Condition Onset Date Multi-year history Current Complaints Falls, unsteadiness, neuropathy History of Current Condition Pt is a 68 year old male with a long-standing history of gait instability, neuropathy, and falls history. Pt reports he has been diagnosed with severe diabetic neuropathy, and has minimal proprioception feedback from his feel. Uses 4WW when out in the community, or electric carts at stores. Uses 4WW in studio apartment when able, but admits to furniture surfing most of the time because he doesn't have enough room for the walker. Lives at [facility], where he has resided for ~8 years. Does have a transfer pole in his bathroom between the shower and toilet. Does admit to a fall one week ago, getting out of the passenger side of the transport van, he took a side-step, stumbled, and fell, scraping his knee and hitting his head. Notes he was checked out by media specialist, and was cleared. More concerned with falls because quite frankly, I can't get up. PT-OP-C Subjective Start: 04/30/24 13:38 Freq: Status: Active Protocol: Document 05/13/24 13:54 SP (Rec: 05/13/24 14:31 SP [id number]) OP-PT Subjective Patient Comments Patient Comments Pt reported no falls since last tx. Is tired after PT but little while but doesn't affect ADLs. PT-OP-D Balance Start: 04/30/24 13:38 Freq: Status: Active Protocol: Document 04/30/24 12:15 DCW (Rec: 04/30/24 13:43 DCW [id number]) Balance Tests Rhodes Balance Test Rhodes Balance Test Score 40/56 Rhodes Impairment Rating 20 to 39% Impaired (Score 34- 44) Rhodes Balance Assessment Evaluation Sitting to Standing Ability Independent w/out Hands Unsupported Stance Safely- 2 minutes Sitting Unsupported, Feet on Floor Safely- 2 minutes Standing to Sitting Ability Safely, Minimal Hand Use Transfer Ability Safely, Minimal Hand Use Unsupported Stance- Eyes Closed Supervision, 10 seconds Unsupported Stance- Eyes Open Assist to attain, 15 secs Reaching Forward Standing Safely, 5 inches Pick- Up Object From Floor Supervision Look Behind Shoulder - Standing Shifts Weight Unilateral Turning 360 Degrees Turns slowly, but safely Unsupported Stance, Alternating Feet on 4 Steps w/Supervision Stair Unsupported Tandem Stance Small Step- 30 seconds Unilateral Leg Stance Lifts Leg/Unable to Hold Total Score Rhodes Total Score (out of 56 points) 40 Rhodes Impairment Rating 20 to 39% Impaired (Score 34- 44) PT-OP-E Functional Tests Start: 04/30/24 13:38 Freq: Status: Active Protocol: Document 04/30/24 12:15 DCW (Rec: 04/30/24 13:43 DCW [id number]) Functional Tests Five Times Sit to Stand Test Score 25.24 Comments Mild UE use PT-OP-M Strength Start: 04/30/24 13:38 Freq: Status: Active Protocol: Document 04/30/24 12:15 DCW (Rec: 04/30/24 13:41 DCW [id number]) Hip Strength Hip Manual Muscle Testing Right Flexion (L2) 4 Good Extension (S1) 4- Good- Abduction 4- Good- Adduction 4 Good Left Flexion (L2) 4 Good Extension (S1) 4- Good- Abduction 4- Good- Adduction 4 Good Knee Strength Knee Manual Muscle Testing Right Flexion (S2) 4 Good Extension (L3) 4 Good Left Flexion (S2) 4 Good Extension (L3) 4 Good PT-OP-Q Treatments Start: 04/30/24 13:38 Freq: Status: Active Protocol: Document 05/13/24 13:54 SP (Rec: 05/13/24 14:31 SP [id number]) Gym Equipment Shuttle Recovery Unilateral Squats Details cues for LE alignment Resistance 62# 2 navy Shuttle Recovery Platform Stable Reps/Time X15 each LE Bilateral Squats Details cues for LE alignment Resistance 75# 3 navy Shuttle Recovery Platform Stable Reps/Time x15 no ball, x15 w/ ball squeeze Shuttle Balance red clips Details CG-15%A Comments WBOS, NBOS, Staggered a/p weighshifting, bal 2>1 UE support initially BLEs uriel pérez, improved lessening 1 UE support Future EO/EC f/b, bal lateral Therapeutic Exercises Sitting Exercises STS Resistance no UE support Equipment Used mesh chair Reps/Minutes x5 reps Comments cued controlled hip hinge sit. Other Exercises Resisted Ambulation Other Exercise Name Resisted Forward, Backward, Side-stepping Resistance Level 3 Green TB at shins Equipment Used 1-2 UE on handrail Reps/Minutes 2x12 ft ea Comments cues for upright posture, neutral foot position PT-OP-T Assessment and Plan Start: 04/30/24 13:38 Freq: Status: Active Protocol: Document 05/13/24 13:54 SP (Rec: 05/13/24 14:31 SP [id number]) Physical Therapy Assessment Goals Three Impairment Pt completes Five times Sit to outboard motor inspector 25.24 Construction Inspector Goal (LTG) Pt to improve time on 5xStS to <20 in order to demonstrate improved activity tolerance LTG Duration 06/30/24 Two Impairment Score on Rhodes Balance scale ( 40/56) indicates an increased falls risk Construction Inspector Goal (LTG) Pt to improve score on Rhodes Balance scale by at least 6 points to 46/56 in order to demonstrate a reduced falls risk. LTG Duration 06/30/24 One Impairment Pt does not have an appropriate home exercise program Short Term Goal (STG) Pt to be independent and compliant with an appropriate HEP STG Duration 05/31/24 Assessment Summary Assessment Pt improved addition reps on shuttle recovery. Lessening UE support on initiated shuttle balance and addition resisted forward and backward walking with only 1 UE support. He is able to complete STS without UE support from mesh chair, recommendation perform 5 reps 3x/day for LE and core strength progression, verbalized will incorporate. Physical Therapy Plan Frequency and Duration Frequency of Treatment 2x/Week Plan of Care Start Date 04/30/24 Plan of Care End Date 06/30/24 Therapeutic Interventions Therapeutic Interventions Balance Training,Coordination Training,Gait Training,Home Exercise Program,Manual Therapy,Neuromuscular Re- education,Patient/Caregiver Education,Self-Care/Home Management,Soft Tissue Mobilization,Therapeutic Activities,Therapeutic Exercises,Vestibular Rehabilitation Next Visit Focus/Plan Next Note Type Treatment Note Next Visit Plan Next: Continue Shuttle Balance , trial STS with foam under feet, add foam stance and balloon volleylakeshiadles. POC: Balance challenges, LE strengthening, activity tolerance
--- NOTE | 2024-05-17 09:57 | PT-OP ANOTE ---
Patient reports his clinic receptionist cancelled his appointment due to emergency Podiatry appointment. Josue reports he is now in a boot, and he asked MD at appointment if he could continue physical therapy as he was working on walking and Podiatry MD said he could continue PT. Patient reminded next appointment is Mon with Doug. THOMAS
--- NOTE | 2024-05-22 15:59 | PT.OTN ---
Current Diagnoses Non-pressure chronic ulcer of other part of unspecified foot with unspecified severity (05/22/24) Unsteadiness on feet (05/22/24) Other abnormalities of gait and mobility (05/22/24) Repeated falls (05/22/24) Physical Therapy Treatment Note PT-OP-A Visit Information Start: 04/30/24 13:38 Freq: Status: Active Protocol: Document 05/22/24 15:15 DCW (Rec: 05/22/24 15:59 DCW [id number]) Out-Patient Physical Therapy Visit Information Visit Information Visit Start Time 15:15 Visit Stop Time 16:00 Visit Number 6 Number of SPECIAL EDUCATION PROFESSIONAL Visits 0 PT-OP-B Current Condition Start: 04/30/24 13:38 Freq: Status: Active Protocol: Document 04/30/24 12:15 DCW (Rec: 04/30/24 17:53 DCW [id number]) Current Condition History of Current Condition Onset Date Multi-year history Current Complaints Falls, unsteadiness, neuropathy History of Current Condition Pt is a 68 year old male with a long-standing history of gait instability, neuropathy, and falls history. Pt reports he has been diagnosed with severe diabetic neuropathy, and has minimal proprioception feedback from his feel. Uses 4WW when out in the community, or electric carts at stores. Uses 4WW in stud apartment when able, but admits to furniture surfing most of the time because he doesn't have enough room for the walker. Lives at [facility], where he has resided for ~8 years. Does have a transfer pole in his bathroom between the shower and toilet. Does admit to a fall one week ago, getting out of the passenger side of the transport van, he took a side-step, stumbled, and fell, scraping his knee and hitting his head. Notes he was checked out by shrimp pond laborer, and was cleared. More concerned with falls because quite frankly, I can't get up. PT-OP-C Subjective Start: 04/30/24 13:38 Freq: Status: Active Protocol: Document 05/22/24 15:15 DCW (Rec: 05/22/24 15:59 DCW [id number]) OP-PT Subjective Patient Comments Patient Comments Pt comes in today with a walking boot on his right foot , reports he has a non-healing area around his 1st metatarsal. Per patient, Podiatry agreeable to continue with PT if possible. PT-OP-D Balance Start: 04/30/24 13:38 Freq: Status: Active Protocol: Document 04/30/24 12:15 DCW (Rec: 04/30/24 13:43 DCW [id number]) Balance Tests Rhodes Balance Test Rhodes Balance Test Score 40/56 Rhodes Impairment Rating 20 to 39% Impaired (Score 34- 44) Rhodes Balance Assessment Evaluation Sitting to Standing Ability Independent w/out Hands Unsupported Stance Safely- 2 minutes Sitting Unsupported, Feet on Floor Safely- 2 minutes Standing to Sitting Ability Safely, Minimal Hand Use Transfer Ability Safely, Minimal Hand Use Unsupported Stance- Eyes Closed Supervision, 10 seconds Unsupported Stance- Eyes Open Assist to attain, 15 secs Reaching Forward Standing Safely, 5 inches Pick- Up Object From Floor Supervision Look Behind Shoulder - Standing Shifts Weight Unilateral Turning 360 Degrees Turns slowly, but safely Unsupported Stance, Alternating Feet on 4 Steps w/Supervision Stair Unsupported Tandem Stance Small Step- 30 seconds Unilateral Leg Stance Lifts Leg/Unable to Hold Total Score Rhodes Total Score (out of 56 points) 40 Rhodes Impairment Rating 20 to 39% Impaired (Score 34- 44) PT-OP-E Functional Tests Start: 04/30/24 13:38 Freq: Status: Active Protocol: Document 04/30/24 12:15 DCW (Rec: 04/30/24 13:43 DCW [id number]) Functional Tests Five Times Sit to Stand Test Score 25.24 Comments Mild UE use PT-OP-M Strength Start: 04/30/24 13:38 Freq: Status: Active Protocol: Document 04/30/24 12:15 DCW (Rec: 04/30/24 13:41 DCW [id number]) Hip Strength Hip Manual Muscle Testing Right Flexion (L2) 4 Good Extension (S1) 4- Good- Abduction 4- Good- Adduction 4 Good Left Flexion (L2) 4 Good Extension (S1) 4- Good- Abduction 4- Good- Adduction 4 Good Knee Strength Knee Manual Muscle Testing Right Flexion (S2) 4 Good Extension (L3) 4 Good Left Flexion (S2) 4 Good Extension (L3) 4 Good PT-OP-Q Treatments Start: 04/30/24 13:38 Freq: Status: Active Protocol: Document 05/22/24 15:15 DCW (Rec: 05/22/24 15:59 DCW [id number]) Gym Equipment Shuttle Recovery Unilateral Squats Details cues for LE alignment Resistance 50# (2 navy) Shuttle Recovery Platform Stable Reps/Time x15 each LE Bilateral Squats Details cues for LE alignment Resistance 75# (3 navy) Shuttle Recovery Platform Stable Reps/Time x20 Therapeutic Exercises Standing Exercises Hip Extension Standing Exercise Name Hip Extension Side bilateral Resistance Green Reps/Minutes X10 ea Comments cues for straight leg, no arching back. Other Exercises Resisted Ambulation Other Exercise Name Resisted Side-stepping Resistance Green loop Equipment Used handrail Reps/Minutes 2x10 ft ea Comments cues for upright posture, neutral foot position Neuro Re-Education Treatment Balance Activities tandem Details Forward tandem ambulation Equipment // bars Reps/Duration 2x10ft ea step up taps Details CGA hands above bars Surface 4 inch step Reps/Duration X8 each LE Foam Details WBOS, EO/EC, Head turns Equipment AirEx Comments CGA PT-OP-T Assessment and Plan Start: 04/30/24 13:38 Freq: Status: Active Protocol: Document 05/22/24 15:15 DCW (Rec: 05/22/24 15:59 DCW [id number]) Physical Therapy Assessment Impairments Impairments Activity Tolerance,Balance, Functional Activities, Functional Mobility,Posture, Soft Tissue Mobility,Strength Goals Three Impairment Pt completes Five times Sit to internet manager 25.24 Occupational Hygienist Goal (LTG) Pt to improve time on 5xStS to <20 in order to demonstrate improved activity tolerance LTG Duration 06/30/24 Two Impairment Score on Rhodes Balance scale ( 40/56) indicates an increased falls risk Occupational Hygienist Goal (LTG) Pt to improve score on Rhodes Balance scale by at least 6 points to 46/56 in order to demonstrate a reduced falls risk. LTG Duration 06/30/24 One Impairment Pt does not have an appropriate home exercise program Short Term Goal (STG) Pt to be independent and compliant with an appropriate HEP STG Duration 05/31/24 Assessment Summary Assessment Made some adjustments today in order to decrease load through right foot, pt tolerated well. Did report some increased right calf soreness during tandem stance. Pt seeing endoscopy nurse again tomorrow, will be discussing if there are any desired limitations to PT. Physical Therapy Plan Frequency and Duration Frequency of Treatment 2x/Week Plan of Care Start Date 04/30/24 Plan of Care End Date 06/30/24 Therapeutic Interventions Therapeutic Interventions Balance Training,Coordination Training,Gait Training,Home Exercise Program,Manual Therapy,Neuromuscular Re- education,Patient/Caregiver Education,Self-Care/Home Management,Soft Tissue Mobilization,Therapeutic Activities,Therapeutic Exercises,Vestibular Rehabilitation Next Visit Focus/Plan Next Note Type Treatment Note Next Visit Plan Next: Continue Shuttle Balance , trial STS with foam under feet, add foam stance and balloon vollakeshia hartleydles. POC: Balance challenges, LE strengthening, activity tolerance
--- NOTE | 2024-05-24 12:53 | PT.OTN ---
Current Diagnoses Non-pressure chronic ulcer of other part of unspecified foot with unspecified severity (05/24/24) Unsteadiness on feet (05/24/24) Other abnormalities of gait and mobility (05/24/24) Repeated falls (05/24/24) Physical Therapy Treatment Note PT-OP-A Visit Information Start: 04/30/24 13:38 Freq: Status: Active Protocol: Document 05/24/24 10:26 AB (Rec: 05/24/24 12:53 AB [id number]) Out-Patient Physical Therapy Visit Information Visit Information Visit Type Treatment Note Visit Start Time 10:49 Visit Stop Time 11:33 Visit Number 7 Number of MARBLE MACHINE TENDER Visits 1 Evaluation Information Evaluation Date 04/30/24 PT-OP-B Current Condition Start: 04/30/24 13:38 Freq: Status: Active Protocol: Document 04/30/24 12:15 DCW (Rec: 04/30/24 17:53 DCW [id number]) Current Condition History of Current Condition Onset Date Multi-year history Current Complaints Falls, unsteadiness, neuropathy History of Current Condition Pt is a 68 year old male with a long-standing history of gait instability, neuropathy, and falls history. Pt reports he has been diagnosed with severe diabetic neuropathy, and has minimal proprioception feedback from his feel. Uses 4WW when out in the community, or electric carts at stores. Uses 4WW in stud apartment when able, but admits to furniture surfing most of the time because he doesn't have enough room for the walker. Lives at [facility], where he has resided for ~8 years. Does have a transfer pole in his bathroom between the shower and toilet. Does admit to a fall one week ago, getting out of the passenger side of the transport van, he took a side-step, stumbled, and fell, scraping his knee and hitting his head. Notes he was checked out by svp digital sales food & cooking, and was cleared. More concerned with falls because quite frankly, I can't get up. 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, that he doesn't have to wear boot to PT, but has to wear it all other time.( except during sleep) PT-OP-D Balance Start: 04/30/24 13:38 Freq: Status: Active Protocol: Document 04/30/24 12:15 DCW (Rec: 04/30/24 13:43 DCW [id number]) Balance Tests Rhodes Balance Test Rhodes Balance Test Score 40/56 Rhodes Impairment Rating 20 to 39% Impaired (Score 34- 44) Rhodes Balance Assessment Evaluation Sitting to Standing Ability Independent w/out Hands Unsupported Stance Safely- 2 minutes Sitting Unsupported, Feet on Floor Safely- 2 minutes Standing to Sitting Ability Safely, Minimal Hand Use Transfer Ability Safely, Minimal Hand Use Unsupported Stance- Eyes Closed Supervision, 10 seconds Unsupported Stance- Eyes Open Assist to attain, 15 secs Reaching Forward Standing Safely, 5 inches Pick- Up Object From Floor Supervision Look Behind Shoulder - Standing Shifts Weight Unilateral Turning 360 Degrees Turns slowly, but safely Unsupported Stance, Alternating Feet on 4 Steps w/Supervision Stair Unsupported Tandem Stance Small Step- 30 seconds Unilateral Leg Stance Lifts Leg/Unable to Hold Total Score Rhodes Total Score (out of 56 points) 40 Rhodes Impairment Rating 20 to 39% Impaired (Score 34- 44) PT-OP-E Functional Tests Start: 04/30/24 13:38 Freq: Status: Active Protocol: Document 04/30/24 12:15 DCW (Rec: 04/30/24 13:43 DCW [id number]) Functional Tests Five Times Sit to Stand Test Score 25.24 Comments Mild UE use PT-OP-M Strength Start: 04/30/24 13:38 Freq: Status: Active Protocol: Document 04/30/24 12:15 DCW (Rec: 04/30/24 13:41 DCW [id number]) Hip Strength Hip Manual Muscle Testing Right Flexion (L2) 4 Good Extension (S1) 4- Good- Abduction 4- Good- Adduction 4 Good Left Flexion (L2) 4 Good Extension (S1) 4- Good- Abduction 4- Good- Adduction 4 Good Knee Strength Knee Manual Muscle Testing Right Flexion (S2) 4 Good Extension (L3) 4 Good Left Flexion (S2) 4 Good Extension (L3) 4 Good PT-OP-Q Treatments Start: 04/30/24 13:38 Freq: Status: Active Protocol: Document 05/24/24 10:26 AB (Rec: 05/24/24 12:53 AB [id number]) Gym Equipment Shuttle Recovery Unilateral Squats Details cues for LE alignment Resistance 50# (2 navy) Shuttle Recovery Platform Stable Reps/Time x15 each LE Bilateral Squats Details cues for LE alignment Resistance 75# (3 navy) Shuttle Recovery Platform Stable Reps/Time x20 Therapeutic Exercises Sitting Exercises hip flexion Side bilateral AROM DF Side bilateral Resistance level one band Reps/Minutes 10 X w/o band X 10 with band Comments verbal cues long arc quad Side bilateral Resistance 4 lb Reps/Minutes X10 X 2 Comments verbal and visual cues seated hip abd with band Side bilateral Resistance level 3 [place] band Reps/Minutes one min X 1, X 15without hold Comments verbal cues Standing Exercises side stepping with band Side bilateral Resistance level 3 band Reps/Minutes 10 feet X 3 left and right Neuro Re-Education Treatment Balance Activities step up taps Details CGA hands above bars Surface 4 inch step Reps/Duration X8 each LE Foam Details WBOS, EO/EC, Head turns Equipment AirEx Comments CGA PT-OP-T Assessment and Plan Start: 04/30/24 13:38 Freq: Status: Active Protocol: Document 05/24/24 10:26 AB (Rec: 05/24/24 12:53 AB [id number]) Physical Therapy Assessment Goals Three Impairment Pt completes Five times Sit to safety admin assistant 25.24 Pumper Helper Goal (LTG) Pt to improve time on 5xStS to <20 in order to demonstrate improved activity tolerance LTG Duration 06/30/24 Two Impairment Score on Rhodes Balance scale ( 40/56) indicates an increased falls risk Pumper Helper Goal (LTG) Pt to improve score on Rhodes Balance scale by at least 6 points to 46/56 in order to demonstrate a reduced falls risk. LTG Duration 06/30/24 One Impairment Pt does not have an appropriate home exercise program Short Term Goal (STG) Pt to be independent and compliant with an appropriate HEP STG Duration 05/31/24 Assessment Summary Assessment No complaints of toe pain throughout session. Patient comments he feels like his muscles worked. Physical Therapy Plan Frequency and Duration Frequency of Treatment 2x/Week Plan of Care Start Date 04/30/24 Plan of Care End Date 06/30/24 Next Visit Focus/Plan Next Note Type Treatment Note Next Visit Plan Next: Continue Shuttle Balance , trial STS with foam under feet, add foam stance and balloon marline mendoza. POC: Balance challenges, LE strengthening, activity tolerance
[2024-05-27 13:01] VITALS: BP 147/67; PULSE 97; RESP 16; O2SAT 99
--- NOTE | 2024-05-27 13:01 | PT.OTN ---
Current Diagnoses Non-pressure chronic ulcer of other part of unspecified foot with unspecified severity (05/29/24) Unsteadiness on feet (05/29/24) Other abnormalities of gait and mobility (05/29/24) Repeated falls (05/29/24) Physical Therapy Treatment Note PT-OP-A Visit Information Start: 04/30/24 13:38 Freq: Status: Active Protocol: Document 05/29/24 13:47 KW (Rec: 05/27/24 13:42 KW Laptop) Out-Patient Physical Therapy Visit Information Visit Information Visit Type Treatment Note Visit Start Time 13:00 Visit Stop Time 13:45 Visit Number 8 Number of PUBLIC HEALTH SANITARIAN Visits 0 PT-OP-B Current Condition Start: 04/30/24 13:38 Freq: Status: Active Protocol: Document 04/30/24 12:15 DCW (Rec: 04/30/24 17:53 DCW [id number]) Current Condition History of Current Condition Onset Date Multi-year history Current Complaints Falls, unsteadiness, neuropathy History of Current Condition Pt is a 68 year old male with a long-standing history of gait instability, neuropathy, and falls history. Pt reports he has been diagnosed with severe diabetic neuropathy, and has minimal proprioception feedback from his feel. Uses 4WW when out in the community, or electric carts at stores. Uses 4WW in studio apartment when able, but admits to furniture surfing most of the time because he doesn't have enough room for the walker. Lives at [facility], where he has resided for ~8 years. Does have a transfer pole in his bathroom between the shower and toilet. Does admit to a fall one week ago, getting out of the passenger side of the transport van, he took a side-step, stumbled, and fell, scraping his knee and hitting his head. Notes he was checked out by farm mechanic apprentice, and was cleared. More concerned with falls because quite frankly, I can't get up. PT-OP-C Subjective Start: 04/30/24 13:38 Freq: Status: Active Protocol: Document 05/29/24 13:47 KW (Rec: 05/27/24 13:42 KW Laptop) OP-PT Subjective Patient Comments Patient Comments pain is not bad today, has not taken pain med today PT-OP-D Balance Start: 04/30/24 13:38 Freq: Status: Active Protocol: Document 04/30/24 12:15 DCW (Rec: 04/30/24 13:43 DCW [id number]) Balance Tests Rhodes Balance Test Rhodes Balance Test Score 40/56 Rhodes Impairment Rating 20 to 39% Impaired (Score 34- 44) Rhodes Balance Assessment Evaluation Sitting to Standing Ability Independent w/out Hands Unsupported Stance Safely- 2 minutes Sitting Unsupported, Feet on Floor Safely- 2 minutes Standing to Sitting Ability Safely, Minimal Hand Use Transfer Ability Safely, Minimal Hand Use Unsupported Stance- Eyes Closed Supervision, 10 seconds Unsupported Stance- Eyes Open Assist to attain, 15 secs Reaching Forward Standing Safely, 5 inches Pick- Up Object From Floor Supervision Look Behind Shoulder - Standing Shifts Weight Unilateral Turning 360 Degrees Turns slowly, but safely Unsupported Stance, Alternating Feet on 4 Steps w/Supervision Stair Unsupported Tandem Stance Small Step- 30 seconds Unilateral Leg Stance Lifts Leg/Unable to Hold Total Score Rhodes Total Score (out of 56 points) 40 Rhodes Impairment Rating 20 to 39% Impaired (Score 34- 44) PT-OP-E Functional Tests Start: 04/30/24 13:38 Freq: Status: Active Protocol: Document 04/30/24 12:15 DCW (Rec: 04/30/24 13:43 DCW [id number]) Functional Tests Five Times Sit to Stand Test Score 25.24 Comments Mild UE use PT-OP-M Strength Start: 04/30/24 13:38 Freq: Status: Active Protocol: Document 04/30/24 12:15 DCW (Rec: 04/30/24 13:41 DCW [id number]) Hip Strength Hip Manual Muscle Testing Right Flexion (L2) 4 Good Extension (S1) 4- Good- Abduction 4- Good- Adduction 4 Good Left Flexion (L2) 4 Good Extension (S1) 4- Good- Abduction 4- Good- Adduction 4 Good Knee Strength Knee Manual Muscle Testing Right Flexion (S2) 4 Good Extension (L3) 4 Good Left Flexion (S2) 4 Good Extension (L3) 4 Good PT-OP-Q Treatments Start: 04/30/24 13:38 Freq: Status: Active Protocol: Document 05/29/24 13:47 KW (Rec: 05/27/24 13:42 KW Laptop) Gym Equipment Shuttle Recovery Heel raise Details Abdi Heel raises, followed by 1 calf stretch Resistance 62# Shuttle Recovery Platform Stable Reps/Time x15, cues for full range Unilateral Squats Details cues for LE alignment Resistance 50# (2 navy) Shuttle Recovery Platform Stable Reps/Time x15 each LE Neuro Re-Education Treatment Balance Activities obstacle course Details step to gait R/L and L/R Surface variety of foam pads Reps/Duration 2 x // bars Comments cues for head up, eyes up tandem Details Forward tandem ambulation Equipment // bars Reps/Duration 2x10ft ea step up taps Details CGA hands above bars Surface 4 inch step Reps/Duration X8 each LE Semi-tandem Details Semi-tandem stance Equipment // bars Reps/Duration 10 feet X 2 Comments CGA Foam Details WBOS, EO/EC, Head turns Surface also with tilt board AP and ML Equipment AirEx Comments CGA Hurdles Details Hurdles with UE support Equipment // bars Comments Forward, Side-stepping PT-OP-T Assessment and Plan Start: 04/30/24 13:38 Freq: Status: Active Protocol: Document 05/29/24 13:47 KW (Rec: 05/27/24 13:42 KW Laptop) Physical Therapy Assessment Impairments Impairments Activity Tolerance,Balance, Functional Activities, Functional Mobility,Posture, Soft Tissue Mobility,Strength Goals Three Impairment Pt completes Five times Sit to software design engineer 25.24 Spinning Frame Fixer Goal (LTG) Pt to improve time on 5xStS to <20 in order to demonstrate improved activity tolerance LTG Duration 06/30/24 Two Impairment Score on Rhodes Balance scale ( 40/56) indicates an increased falls risk Penitentiary Goal (LTG) Pt to improve score on Rhodes Balance scale by at least 6 points to 46/56 in order to demonstrate a reduced falls risk. LTG Duration 06/30/24 One Impairment Pt does not have an appropriate home exercise program Short Term Goal (STG) Pt to be independent and compliant with an appropriate HEP STG Duration 05/31/24 Assessment Summary Assessment patient tolerated treatment well with encouragement to push limit of stability with balance exercises. Eyes closed was more challenging than head turns with eyes open. Physical Therapy Plan Frequency and Duration Frequency of Treatment 2x/Week Plan of Care Start Date 04/30/24 Plan of Care End Date 06/30/24 Therapeutic Interventions Therapeutic Interventions Balance Training,Coordination Training,Gait Training,Home Exercise Program,Manual Therapy,Neuromuscular Re- education,Patient/Caregiver Education,Self-Care/Home Management,Soft Tissue Mobilization,Therapeutic Activities,Therapeutic Exercises,Vestibular Rehabilitation Next Visit Focus/Plan Next Note Type Treatment Note Next Visit Plan Next: Continue Shuttle Balance , trial STS with foam under feet, add foam stance and balloon volley, hurdles. POC: Balance challenges, LE strengthening, activity tolerance
--- NOTE | 2024-05-27 13:47 | PT.OTN ---
Current Diagnoses Non-pressure chronic ulcer of other part of unspecified foot with unspecified severity (05/27/24) Unsteadiness on feet (05/27/24) Other abnormalities of gait and mobility (05/27/24) Repeated falls (05/27/24) Physical Therapy Treatment Note PT-OP-A Visit Information Start: 04/30/24 13:38 Freq: Status: Active Protocol: Document 05/27/24 13:01 KW (Rec: 05/27/24 13:42 KW Laptop) Out-Patient Physical Therapy Visit Information Visit Information Visit Type Treatment Note Visit Start Time 13:00 Visit Stop Time 13:45 Visit Number 8 Number of SLAUGHTERER RELIGIOUS RITUAL Visits 0 PT-OP-B Current Condition Start: 04/30/24 13:38 Freq: Status: Active Protocol: Document 04/30/24 12:15 DCW (Rec: 04/30/24 17:53 DCW [id number]) Current Condition History of Current Condition Onset Date Multi-year history Current Complaints Falls, unsteadiness, neuropathy History of Current Condition Pt is a 68 year old male with a long-standing history of gait instability, neuropathy, and falls history. Pt reports he has been diagnosed with severe diabetic neuropathy, and has minimal proprioception feedback from his feel. Uses 4WW when out in the community, or electric carts at stores. Uses 4WW in studio apartment when able, but admits to furniture surfing most of the time because he doesn't have enough room for the walker. Lives at [facility], where he has resided for ~8 years. Does have a transfer pole in his bathroom between the shower and toilet. Does admit to a fall one week ago, getting out of the passenger side of the transport van, he took a side-step, stumbled, and fell, scraping his knee and hitting his head. Notes he was checked out by wood box maker, and was cleared. More concerned with falls because quite frankly, I can't get up. PT-OP-C Subjective Start: 04/30/24 13:38 Freq: Status: Active Protocol: Document 05/27/24 13:01 KW (Rec: 05/27/24 13:42 KW Laptop) OP-PT Subjective Patient Comments Patient Comments pain is not bad today, has not taken pain med today PT-OP-D Balance Start: 04/30/24 13:38 Freq: Status: Active Protocol: Document 04/30/24 12:15 DCW (Rec: 04/30/24 13:43 DCW [id number]) Balance Tests Rhodes Balance Test Rhodes Balance Test Score 40/56 Rhodes Impairment Rating 20 to 39% Impaired (Score 34- 44) Rhodes Balance Assessment Evaluation Sitting to Standing Ability Independent w/out Hands Unsupported Stance Safely- 2 minutes Sitting Unsupported, Feet on Floor Safely- 2 minutes Standing to Sitting Ability Safely, Minimal Hand Use Transfer Ability Safely, Minimal Hand Use Unsupported Stance- Eyes Closed Supervision, 10 seconds Unsupported Stance- Eyes Open Assist to attain, 15 secs Reaching Forward Standing Safely, 5 inches Pick- Up Object From Floor Supervision Look Behind Shoulder - Standing Shifts Weight Unilateral Turning 360 Degrees Turns slowly, but safely Unsupported Stance, Alternating Feet on 4 Steps w/Supervision Stair Unsupported Tandem Stance Small Step- 30 seconds Unilateral Leg Stance Lifts Leg/Unable to Hold Total Score Rhodes Total Score (out of 56 points) 40 Rhodes Impairment Rating 20 to 39% Impaired (Score 34- 44) PT-OP-E Functional Tests Start: 04/30/24 13:38 Freq: Status: Active Protocol: Document 04/30/24 12:15 DCW (Rec: 04/30/24 13:43 DCW [id number]) Functional Tests Five Times Sit to Stand Test Score 25.24 Comments Mild UE use PT-OP-M Strength Start: 04/30/24 13:38 Freq: Status: Active Protocol: Document 04/30/24 12:15 DCW (Rec: 04/30/24 13:41 DCW [id number]) Hip Strength Hip Manual Muscle Testing Right Flexion (L2) 4 Good Extension (S1) 4- Good- Abduction 4- Good- Adduction 4 Good Left Flexion (L2) 4 Good Extension (S1) 4- Good- Abduction 4- Good- Adduction 4 Good Knee Strength Knee Manual Muscle Testing Right Flexion (S2) 4 Good Extension (L3) 4 Good Left Flexion (S2) 4 Good Extension (L3) 4 Good PT-OP-Q Treatments Start: 04/30/24 13:38 Freq: Status: Active Protocol: Document 05/27/24 13:01 KW (Rec: 05/27/24 13:42 KW Laptop) Gym Equipment Shuttle Recovery Heel raise Details Abdi Heel raises, followed by 1 calf stretch Resistance 62# Shuttle Recovery Platform Stable Reps/Time x15, cues for full range Unilateral Squats Details cues for LE alignment Resistance 50# (2 navy) Shuttle Recovery Platform Stable Reps/Time x15 each LE Neuro Re-Education Treatment Balance Activities obstacle course Details step to gait R/L and L/R Surface variety of foam pads Reps/Duration 2 x // bars Comments cues for head up, eyes up tandem Details Forward tandem ambulation Equipment // bars Reps/Duration 2x10ft ea step up taps Details CGA hands above bars Surface 4 inch step Reps/Duration X8 each LE Semi-tandem Details Semi-tandem stance Equipment // bars Reps/Duration 10 feet X 2 Comments CGA Foam Details WBOS, EO/EC, Head turns Surface also with tilt board AP and ML Equipment AirEx Comments CGA Hurdles Details Hurdles with UE support Equipment // bars Comments Forward, Side-stepping PT-OP-T Assessment and Plan Start: 04/30/24 13:38 Freq: Status: Active Protocol: Document 05/27/24 13:01 KW (Rec: 05/27/24 13:42 KW Laptop) Physical Therapy Plan Frequency and Duration Frequency of Treatment 2x/Week Plan of Care Start Date 04/30/24 Plan of Care End Date 06/30/24
--- NOTE | 2024-05-29 11:32 | PT.OTN ---
Current Diagnoses Non-pressure chronic ulcer of other part of unspecified foot with unspecified severity (05/29/24) Unsteadiness on feet (05/29/24) Other abnormalities of gait and mobility (05/29/24) Repeated falls (05/29/24) Physical Therapy Treatment Note PT-OP-A Visit Information Start: 04/30/24 13:38 Freq: Status: Active Protocol: Document 05/29/24 10:45 DCW (Rec: 05/29/24 11:32 DCW [id number]) Out-Patient Physical Therapy Visit Information Visit Information Visit Type Treatment Note Visit Start Time 10:45 Visit Stop Time 11:30 Visit Number 9 Number of SPOOL CLEANER Visits 0 Evaluation Information Evaluation Date 04/30/24 PT-OP-B Current Condition Start: 04/30/24 13:38 Freq: Status: Active Protocol: Document 04/30/24 12:15 DCW (Rec: 04/30/24 17:53 DCW [id number]) Current Condition History of Current Condition Onset Date Multi-year history Current Complaints Falls, unsteadiness, neuropathy History of Current Condition Pt is a 68 year old male with a long-standing history of gait instability, neuropathy, and falls history. Pt reports he has been diagnosed with severe diabetic neuropathy, and has minimal proprioception feedback from his feel. Uses 4WW when out in the community, or electric carts at stores. Uses 4WW in [facility] apartment when able, but admits to furniture surfing most of the time because he doesn't have enough room for the walker. Lives at [facility], where he has resided for ~8 years. Does have a transfer pole in his bathroom between the shower and toilet. Does admit to a fall one week ago, getting out of the passenger side of the transport van, he took a side-step, stumbled, and fell, scraping his knee and hitting his head. Notes he was checked out by family manager, and was cleared. More concerned with falls because quite frankly, I can't get up. PT-OP-C Subjective Start: 04/30/24 13:38 Freq: Status: Active Protocol: Document 05/29/24 10:45 DCW (Rec: 05/29/24 11:32 DCW [id number]) OP-PT Subjective Patient Comments Patient Comments So far, so good. PT-OP-D Balance Start: 04/30/24 13:38 Freq: Status: Active Protocol: Document 04/30/24 12:15 DCW (Rec: 04/30/24 13:43 DCW [id number]) Balance Tests Rhodes Balance Test Rhodes Balance Test Score 40/56 Rhodes Impairment Rating 20 to 39% Impaired (Score 34- 44) Rhodes Balance Assessment Evaluation Sitting to Standing Ability Independent w/out Hands Unsupported Stance Safely- 2 minutes Sitting Unsupported, Feet on Floor Safely- 2 minutes Standing to Sitting Ability Safely, Minimal Hand Use Transfer Ability Safely, Minimal Hand Use Unsupported Stance- Eyes Closed Supervision, 10 seconds Unsupported Stance- Eyes Open Assist to attain, 15 secs Reaching Forward Standing Safely, 5 inches Pick- Up Object From Floor Supervision Look Behind Shoulder - Standing Shifts Weight Unilateral Turning 360 Degrees Turns slowly, but safely Unsupported Stance, Alternating Feet on 4 Steps w/Supervision Stair Unsupported Tandem Stance Small Step- 30 seconds Unilateral Leg Stance Lifts Leg/Unable to Hold Total Score Rhodes Total Score (out of 56 points) 40 Rhodes Impairment Rating 20 to 39% Impaired (Score 34- 44) PT-OP-E Functional Tests Start: 04/30/24 13:38 Freq: Status: Active Protocol: Document 04/30/24 12:15 DCW (Rec: 04/30/24 13:43 DCW [id number]) Functional Tests Five Times Sit to Stand Test Score 25.24 Comments Mild UE use PT-OP-M Strength Start: 04/30/24 13:38 Freq: Status: Active Protocol: Document 04/30/24 12:15 DCW (Rec: 04/30/24 13:41 DCW [id number]) Hip Strength Hip Manual Muscle Testing Right Flexion (L2) 4 Good Extension (S1) 4- Good- Abduction 4- Good- Adduction 4 Good Left Flexion (L2) 4 Good Extension (S1) 4- Good- Abduction 4- Good- Adduction 4 Good Knee Strength Knee Manual Muscle Testing Right Flexion (S2) 4 Good Extension (L3) 4 Good Left Flexion (S2) 4 Good Extension (L3) 4 Good PT-OP-Q Treatments Start: 04/30/24 13:38 Freq: Status: Active Protocol: Document 05/29/24 10:45 DCW (Rec: 05/29/24 11:32 [facility] [id number]) Gym Equipment Shuttle Recovery Heel raise Details Abdi Heel raises Resistance 62# Shuttle Recovery Platform Stable Reps/Time x15 Unilateral Squats Details cues for LE alignment Resistance 50# (2 navy) Shuttle Recovery Platform Stable Reps/Time x15 each LE Bilateral Squats Details cues for LE alignment Resistance 87# (3 navy) Shuttle Recovery Platform Stable Reps/Time x15 Therapeutic Exercises Standing Exercises Hamstring Curl Standing Exercise Name Hamstring Curls Side bilateral Resistance 5# Other Exercises Resisted Ambulation Other Exercise Name Resisted Side-stepping Resistance Green loop Equipment Used handrail Reps/Minutes 2x10 ft ea Comments cues for upright posture, neutral foot position Neuro Re-Education Treatment Balance Activities tandem Details Forward tandem ambulation Equipment // bars Reps/Duration 2x10ft ea step up taps Details CGA hands above bars Surface 6 step Equipment 5# Reps/Duration X8 each LE Foam Details WBOS, EO/EC Equipment AirEx Comments CGA Hurdles Details Hurdles/Foam Equipment @ rail Comments Forward, Side-stepping PT-OP-T Assessment and Plan Start: 04/30/24 13:38 Freq: Status: Active Protocol: Document 05/29/24 10:45 DCW (Rec: 05/29/24 11:32 [facility] [id number]) Physical Therapy Assessment Impairments Impairments Activity Tolerance,Balance, Functional Activities, Functional Mobility,Posture, Soft Tissue Mobility,Strength Goals Three Impairment Pt completes Five times Sit to managing editor 25.24 Chinese Language Professor Goal (LTG) Pt to improve time on 5xStS to <20 in order to demonstrate improved activity tolerance LTG Duration 06/30/24 Two Impairment Score on Rhodes Balance scale ( 40/56) indicates an increased falls risk Chinese Language Professor Goal (LTG) Pt to improve score on Rhodes Balance scale by at least 6 points to 46/56 in order to demonstrate a reduced falls risk. LTG Duration 06/30/24 One Impairment Pt does not have an appropriate home exercise program Short Term Goal (STG) Pt to be independent and compliant with an appropriate HEP STG Duration 05/31/24 Assessment Summary Assessment Good response to treatment today, showing some improvement with activity tolerance and balance. Continue to focus on LE strengthening and balance challenges. Physical Therapy Plan Frequency and Duration Frequency of Treatment 2x/Week Plan of Care Start Date 04/30/24 Plan of Care End Date 06/30/24 Therapeutic Interventions Therapeutic Interventions Balance Training,Coordination Training,Gait Training,Home Exercise Program,Manual Therapy,Neuromuscular Re- education,Patient/Caregiver Education,Self-Care/Home Management,Soft Tissue Mobilization,Therapeutic Activities,Therapeutic Exercises,Vestibular Rehabilitation Next Visit Focus/Plan Next Note Type Treatment Note Next Visit Plan Next: Continue Shuttle Balance , trial STS with foam under feet, add foam stance and balloon volley, hurdles. POC: Balance challenges, LE strengthening, activity tolerance
[2024-06-03 12:55] VITALS: BP 128/68; PULSE 102; RESP 16; O2SAT 97
--- NOTE | 2024-06-03 12:59 | PT.OTN ---
Current Diagnoses Non-pressure chronic ulcer of other part of unspecified foot with unspecified severity (06/03/24) Unsteadiness on feet (06/03/24) Other abnormalities of gait and mobility (06/03/24) Repeated falls (06/03/24) Physical Therapy Treatment Note PT-OP-A Visit Information Start: 04/30/24 13:38 Freq: Status: Active Protocol: Document 06/03/24 12:55 KW (Rec: 06/03/24 12:59 KW Laptop) Out-Patient Physical Therapy Visit Information Visit Information Visit Type Treatment Note Visit Start Time 10:45 Visit Stop Time 11:30 Visit Number 10 Number of ASSOCIATE STORE LEADER Visits 0 PT-OP-B Current Condition Start: 04/30/24 13:38 Freq: Status: Active Protocol: Document 04/30/24 12:15 DCW (Rec: 04/30/24 17:53 DCW [id number]) Current Condition History of Current Condition Onset Date Multi-year history Current Complaints Falls, unsteadiness, neuropathy History of Current Condition Pt is a 68 year old male with a long-standing history of gait instability, neuropathy, and falls history. Pt reports he has been diagnosed with severe diabetic neuropathy, and has minimal proprioception feedback from his feel. Uses 4WW when out in the community, or electric carts at stores. Uses 4WW in studio apartment when able, but admits to furniture surfing most of the time because he doesn't have enough room for the walker. Lives at [facility], where he has resided for ~8 years. Does have a transfer pole in his bathroom between the shower and toilet. Does admit to a fall one week ago, getting out of the passenger side of the transport van, he took a side-step, stumbled, and fell, scraping his knee and hitting his head. Notes he was checked out by student support advisor, and was cleared. More concerned with falls because quite frankly, I can't get up. PT-OP-C Subjective Start: 04/30/24 13:38 Freq: Status: Active Protocol: Document 06/03/24 12:55 KW (Rec: 06/03/24 12:59 KW Laptop) OP-PT Subjective Patient Comments Patient Comments feeling very tired today. resting Blood sugar was 135 had a family bbq over the weekend. PT-OP-D Balance Start: 04/30/24 13:38 Freq: Status: Active Protocol: Document 04/30/24 12:15 DCW (Rec: 04/30/24 13:43 DCW [id number]) Balance Tests Rhodes Balance Test Rhodes Balance Test Score 40/56 Rhodes Impairment Rating 20 to 39% Impaired (Score 34- 44) Rhodes Balance Assessment Evaluation Sitting to Standing Ability Independent w/out Hands Unsupported Stance Safely- 2 minutes Sitting Unsupported, Feet on Floor Safely- 2 minutes Standing to Sitting Ability Safely, Minimal Hand Use Transfer Ability Safely, Minimal Hand Use Unsupported Stance- Eyes Closed Supervision, 10 seconds Unsupported Stance- Eyes Open Assist to attain, 15 secs Reaching Forward Standing Safely, 5 inches Pick- Up Object From Floor Supervision Look Behind Shoulder - Standing Shifts Weight Unilateral Turning 360 Degrees Turns slowly, but safely Unsupported Stance, Alternating Feet on 4 Steps w/Supervision Stair Unsupported Tandem Stance Small Step- 30 seconds Unilateral Leg Stance Lifts Leg/Unable to Hold Total Score Rhodes Total Score (out of 56 points) 40 Rhodes Impairment Rating 20 to 39% Impaired (Score 34- 44) PT-OP-E Functional Tests Start: 04/30/24 13:38 Freq: Status: Active Protocol: Document 04/30/24 12:15 DCW (Rec: 04/30/24 13:43 DCW [id number]) Functional Tests Five Times Sit to Stand Test Score 25.24 Comments Mild UE use PT-OP-M Strength Start: 04/30/24 13:38 Freq: Status: Active Protocol: Document 04/30/24 12:15 DCW (Rec: 04/30/24 13:41 DCW [id number]) Hip Strength Hip Manual Muscle Testing Right Flexion (L2) 4 Good Extension (S1) 4- Good- Abduction 4- Good- Adduction 4 Good Left Flexion (L2) 4 Good Extension (S1) 4- Good- Abduction 4- Good- Adduction 4 Good Knee Strength Knee Manual Muscle Testing Right Flexion (S2) 4 Good Extension (L3) 4 Good Left Flexion (S2) 4 Good Extension (L3) 4 Good PT-OP-Q Treatments Start: 04/30/24 13:38 Freq: Status: Active Protocol: Document 06/03/24 12:55 KW (Rec: 06/03/24 12:59 KW Laptop) Gym Equipment Shuttle Recovery Heel raise Details Abdi Heel raises, followed by 1 calf stretch Resistance 62# Shuttle Recovery Platform Stable Reps/Time x20, cues for full range Unilateral Squats Details cues for LE alignment Resistance 50# (2 navy) Shuttle Recovery Platform Stable Reps/Time x20 each LE Bilateral Squats Details cues for LE alignment Resistance 87# (3 navy) Shuttle Recovery Platform Stable Reps/Time x20 Neuro Re-Education Treatment Balance Activities obstacle course Details step to gait R/L and L/R Surface variety of foam pads Reps/Duration 2 x // bars Comments cues for head up, eyes up tandem Details Forward tandem ambulation Equipment // bars Reps/Duration 2x10ft ea step up taps Details CGA hands above bars Surface 6 step Equipment 5# Reps/Duration X8 each LE Semi-tandem Details Semi-tandem stance Equipment // bars Reps/Duration 10 feet X 2 Comments CGA Foam Details WBOS, EO/EC Equipment AirEx Comments CGA Hurdles Details Hurdles/Foam Equipment @ rail Comments Forward, Side-stepping PT-OP-T Assessment and Plan Start: 04/30/24 13:38 Freq: Status: Active Protocol: Document 06/03/24 12:55 KW (Rec: 06/03/24 12:59 KW Laptop) Physical Therapy Assessment Impairments Impairments Activity Tolerance,Balance, Functional Activities, Functional Mobility,Posture, Soft Tissue Mobility,Strength Goals Three Impairment Pt completes Five times Sit to principal strategist 25.24 Diabetes Specialist Goal (LTG) Pt to improve time on 5xStS to <20 in order to demonstrate improved activity tolerance LTG Duration 06/30/24 Two Impairment Score on Rhodes Balance scale ( 40/56) indicates an increased falls risk [facility] Goal (LTG) Pt to improve score on Rhodes Balance scale by at least 6 points to 46/56 in order to demonstrate a reduced falls risk. LTG Duration 06/30/24 One Impairment Pt does not have an appropriate home exercise program Short Term Goal (STG) Pt to be independent and compliant with an appropriate HEP STG Duration 05/31/24 Assessment Summary Assessment BP well controlled today. Fatigue impacted PT session today. Physical Therapy Plan Frequency and Duration Frequency of Treatment 2x/Week Plan of Care Start Date 04/30/24 Plan of Care End Date 05/11/25 Therapeutic Interventions Therapeutic Interventions Balance Training,Coordination Training,Gait Training,Home Exercise Program,Manual Therapy,Neuromuscular Re- education,Patient/Caregiver Education,Self-Care/Home Management,Soft Tissue Mobilization,Therapeutic Activities,Therapeutic Exercises,Vestibular Rehabilitation Next Visit Focus/Plan Next Note Type Treatment Note Next Visit Plan Next: Continue Shuttle Balance , trial STS with foam under feet, add foam stance and balloon volley, hurdles. POC: Balance challenges, LE strengthening, activity tolerance
[2024-06-07 10:54] VITALS: BP 126/70; PULSE 66; RESP 16; O2SAT 98
--- NOTE | 2024-06-07 11:41 | PT.OTN ---
Current Diagnoses Non-pressure chronic ulcer of other part of unspecified foot with unspecified severity (06/07/24) Unsteadiness on feet (06/07/24) Other abnormalities of gait and mobility (06/07/24) Repeated falls (06/07/24) Physical Therapy Treatment Note PT-OP-A Visit Information Start: 04/30/24 13:38 Freq: Status: Active Protocol: Document 06/07/24 10:54 KW (Rec: 06/07/24 10:57 KW Laptop) Out-Patient Physical Therapy Visit Information Visit Information Visit Type Treatment Note Visit Start Time 10:45 Visit Stop Time 11:30 Visit Number 11 Number of DISABILITIES CAREGIVER Visits 0 PT-OP-B Current Condition Start: 04/30/24 13:38 Freq: Status: Active Protocol: Document 04/30/24 12:15 DCW (Rec: 04/30/24 17:53 DCW [id number]) Current Condition History of Current Condition Onset Date Multi-year history Current Complaints Falls, unsteadiness, neuropathy History of Current Condition Pt is a 68 year old male with a long-standing history of gait instability, neuropathy, and falls history. Pt reports he has been diagnosed with severe diabetic neuropathy, and has minimal proprioception feedback from his feel. Uses 4WW when out in the community, or electric carts at stores. Uses 4WW in studio apartment when able, but admits to furniture surfing most of the time because he doesn't have enough room for the walker. Lives at [facility], where he has resided for ~8 years. Does have a transfer pole in his bathroom between the shower and toilet. Does admit to a fall one week ago, getting out of the passenger side of the transport van, he took a side-step, stumbled, and fell, scraping his knee and hitting his head. Notes he was checked out by pipe out worker, and was cleared. More concerned with falls because quite frankly, I can't get up. PT-OP-C Subjective Start: 04/30/24 13:38 Freq: Status: Active Protocol: Document 06/07/24 10:54 KW (Rec: 06/07/24 10:57 KW Laptop) OP-PT Subjective Patient Comments Patient Comments resting blood sugar 116 today PT-OP-D Balance Start: 04/30/24 13:38 Freq: Status: Active Protocol: Document 04/30/24 12:15 DCW (Rec: 04/30/24 13:43 DCW [id number]) Balance Tests Rhodes Balance Test Rhodes Balance Test Score 40/56 Rhodes Impairment Rating 20 to 39% Impaired (Score 34- 44) Rhodes Balance Assessment Evaluation Sitting to Standing Ability Independent w/out Hands Unsupported Stance Safely- 2 minutes Sitting Unsupported, Feet on Floor Safely- 2 minutes Standing to Sitting Ability Safely, Minimal Hand Use Transfer Ability Safely, Minimal Hand Use Unsupported Stance- Eyes Closed Supervision, 10 seconds Unsupported Stance- Eyes Open Assist to attain, 15 secs Reaching Forward Standing Safely, 5 inches Pick- Up Object From Floor Supervision Look Behind Shoulder - Standing Shifts Weight Unilateral Turning 360 Degrees Turns slowly, but safely Unsupported Stance, Alternating Feet on 4 Steps w/Supervision Stair Unsupported Tandem Stance Small Step- 30 seconds Unilateral Leg Stance Lifts Leg/Unable to Hold Total Score Rhodes Total Score (out of 56 points) 40 Rhodes Impairment Rating 20 to 39% Impaired (Score 34- 44) PT-OP-E Functional Tests Start: 04/30/24 13:38 Freq: Status: Active Protocol: Document 04/30/24 12:15 DCW (Rec: 04/30/24 13:43 DCW [id number]) Functional Tests Five Times Sit to Stand Test Score 25.24 Comments Mild UE use PT-OP-M Strength Start: 04/30/24 13:38 Freq: Status: Active Protocol: Document 04/30/24 12:15 DCW (Rec: 04/30/24 13:41 DCW [id number]) Hip Strength Hip Manual Muscle Testing Right Flexion (L2) 4 Good Extension (S1) 4- Good- Abduction 4- Good- Adduction 4 Good Left Flexion (L2) 4 Good Extension (S1) 4- Good- Abduction 4- Good- Adduction 4 Good Knee Strength Knee Manual Muscle Testing Right Flexion (S2) 4 Good Extension (L3) 4 Good Left Flexion (S2) 4 Good Extension (L3) 4 Good PT-OP-Q Treatments Start: 04/30/24 13:38 Freq: Status: Active Protocol: Document 06/07/24 10:58 KW (Rec: 06/07/24 10:59 KW Laptop) Gym Equipment Shuttle Recovery Heel raise Details Abdi Heel raises, followed by 1 calf stretch Resistance 62# Shuttle Recovery Platform Stable Reps/Time x20, cues for full range Unilateral Squats Details cues for LE alignment Resistance 50# (2 navy) Shuttle Recovery Platform Stable Reps/Time x20 each LE Bilateral Squats Details cues for LE alignment Resistance 87# (3 navy) Shuttle Recovery Platform Stable Reps/Time x20 Therapeutic Exercises Standing Exercises Hamstring Curl Standing Exercise Name Hamstring Curls Side bilateral Resistance 5# Neuro Re-Education Treatment Balance Activities obstacle course Details step to gait R/L and L/R Surface variety of foam pads Reps/Duration 2 x // bars Comments cues for head up, eyes up tandem Details Forward tandem ambulation Equipment // bars Reps/Duration 2x10ft ea step up taps Details CGA hands above bars Surface 6 step Equipment 5# Reps/Duration X8 each LE Semi-tandem Details Semi-tandem stance Equipment // bars Reps/Duration 10 feet X 2 Comments CGA Foam Details WBOS, EO/EC Equipment AirEx Comments CGA Hurdles Details Hurdles/Foam Equipment @ rail Comments Forward, Side-stepping PT-OP-T Assessment and Plan Start: 04/30/24 13:38 Freq: Status: Active Protocol: Document 06/07/24 10:54 KW (Rec: 06/07/24 10:57 KW Laptop) Physical Therapy Assessment Impairments Impairments Activity Tolerance,Balance, Functional Activities, Functional Mobility,Posture, Soft Tissue Mobility,Strength Goals Three Impairment Pt completes Five times Sit to sap basis administrator 25.24 Chair Car Attendant Goal (LTG) Pt to improve time on 5xStS to <20 in order to demonstrate improved activity tolerance LTG Duration 06/30/24 Two Impairment Score on Rhodes Balance scale ( 40/56) indicates an increased falls risk Long-Term Goal (LTG) Pt to improve score on Rhodes Balance scale by at least 6 points to 46/56 in order to demonstrate a reduced falls risk. LTG Duration 06/30/24 One Impairment Pt does not have an appropriate home exercise program Short Term Goal (STG) Pt to be independent and compliant with an appropriate HEP STG Duration 05/31/24 Assessment Summary Assessment tolerated Nu-step 10 min exercise well today Physical Therapy Plan Frequency and Duration Frequency of Treatment 2x/Week Plan of Care Start Date 04/30/24 Plan of Care End Date 06/30/24 Therapeutic Interventions Therapeutic Interventions Balance Training,Coordination Training,Gait Training,Home Exercise Program,Manual Therapy,Neuromuscular Re- education,Patient/Caregiver Education,Self-Care/Home Management,Soft Tissue Mobilization,Therapeutic Activities,Therapeutic Exercises,Vestibular Rehabilitation Next Visit Focus/Plan Next Note Type Treatment Note Next Visit Plan Next: Continue Nu-step, Shuttle Balance, trial STS with foam under feet, add foam stance and balloon volley, hurdles. POC: Balance challenges, LE strengthening, activity tolerance
[2024-06-10 10:47] VITALS: BP 130/68; PULSE 86; RESP 16; O2SAT 99
--- NOTE | 2024-06-10 11:26 | PT.OTN ---
Current Diagnoses Non-pressure chronic ulcer of other part of unspecified foot with unspecified severity (06/10/24) Unsteadiness on feet (06/10/24) Other abnormalities of gait and mobility (06/10/24) Repeated falls (06/10/24) Physical Therapy Treatment Note PT-OP-A Visit Information Start: 04/30/24 13:38 Freq: Status: Active Protocol: Document 06/10/24 10:47 KW (Rec: 06/10/24 11:08 KW Laptop) Out-Patient Physical Therapy Visit Information Visit Information Visit Type Treatment Note Visit Start Time 10:45 Visit Stop Time 11:30 Visit Number 12 Number of LAUNDRY ROUTEMAN Visits 0 PT-OP-B Current Condition Start: 04/30/24 13:38 Freq: Status: Active Protocol: Document 04/30/24 12:15 DCW (Rec: 04/30/24 17:53 DCW [id number]) Current Condition History of Current Condition Onset Date Multi-year history Current Complaints Falls, unsteadiness, neuropathy History of Current Condition Pt is a 68 year old male with a long-standing history of gait instability, neuropathy, and falls history. Pt reports he has been diagnosed with severe diabetic neuropathy, and has minimal proprioception feedback from his feel. Uses 4WW when out in the community, or electric carts at stores. Uses 4WW in studio apartment when able, but admits to furniture surfing most of the time because he doesn't have enough room for the walker. Lives at [facility], where he has resided for ~8 years. Does have a transfer pole in his bathroom between the shower and toilet. Does admit to a fall one week ago, getting out of the passenger side of the transport van, he took a side-step, stumbled, and fell, scraping his knee and hitting his head. Notes he was checked out by industrial gas fitter, and was cleared. More concerned with falls because quite frankly, I can't get up. PT-OP-C Subjective Start: 04/30/24 13:38 Freq: Status: Active Protocol: Document 06/10/24 10:47 KW (Rec: 06/10/24 11:08 KW Laptop) OP-PT Subjective Patient Comments Patient Comments resting blood sugars in the 150s this am. No current pain PT-OP-D Balance Start: 04/30/24 13:38 Freq: Status: Active Protocol: Document 04/30/24 12:15 DCW (Rec: 04/30/24 13:43 DCW [id number]) Balance Tests Rhodes Balance Test Rhodes Balance Test Score 40/56 Rhodes Impairment Rating 20 to 39% Impaired (Score 34- 44) Rhodes Balance Assessment Evaluation Sitting to Standing Ability Independent w/out Hands Unsupported Stance Safely- 2 minutes Sitting Unsupported, Feet on Floor Safely- 2 minutes Standing to Sitting Ability Safely, Minimal Hand Use Transfer Ability Safely, Minimal Hand Use Unsupported Stance- Eyes Closed Supervision, 10 seconds Unsupported Stance- Eyes Open Assist to attain, 15 secs Reaching Forward Standing Safely, 5 inches Pick- Up Object From Floor Supervision Look Behind Shoulder - Standing Shifts Weight Unilateral Turning 360 Degrees Turns slowly, but safely Unsupported Stance, Alternating Feet on 4 Steps w/Supervision Stair Unsupported Tandem Stance Small Step- 30 seconds Unilateral Leg Stance Lifts Leg/Unable to Hold Total Score Rhodes Total Score (out of 56 points) 40 Rhodes Impairment Rating 20 to 39% Impaired (Score 34- 44) PT-OP-E Functional Tests Start: 04/30/24 13:38 Freq: Status: Active Protocol: Document 04/30/24 12:15 DCW (Rec: 04/30/24 13:43 DCW [id number]) Functional Tests Five Times Sit to Stand Test Score 25.24 Comments Mild UE use PT-OP-M Strength Start: 04/30/24 13:38 Freq: Status: Active Protocol: Document 04/30/24 12:15 DCW (Rec: 04/30/24 13:41 DCW [id number]) Hip Strength Hip Manual Muscle Testing Right Flexion (L2) 4 Good Extension (S1) 4- Good- Abduction 4- Good- Adduction 4 Good Left Flexion (L2) 4 Good Extension (S1) 4- Good- Abduction 4- Good- Adduction 4 Good Knee Strength Knee Manual Muscle Testing Right Flexion (S2) 4 Good Extension (L3) 4 Good Left Flexion (S2) 4 Good Extension (L3) 4 Good PT-OP-Q Treatments Start: 04/30/24 13:38 Freq: Status: Active Protocol: Document 06/10/24 10:47 KW (Rec: 06/10/24 11:08 KW Laptop) Cardio Equipment Recumbent Stepper (Sci-Fit) Duration (Minutes) 10 Resistance 2 Seat Position 11 Other handles set to length 9 Gym Equipment Shuttle Recovery Heel raise Details Abdi Heel raises, followed by 1 calf stretch Resistance 62# Shuttle Recovery Platform Stable Reps/Time x20, cues for full range Unilateral Squats Details cues for LE alignment Resistance 50# (2 navy) Shuttle Recovery Platform Stable Reps/Time x20 each LE Bilateral Squats Details cues for LE alignment Resistance 87# (3 navy) Shuttle Recovery Platform Stable Reps/Time x20 Therapeutic Exercises Standing Exercises Hamstring Curl Standing Exercise Name Hamstring Curls Side bilateral Resistance 5# heel raise Side bilateral Equipment Used HEP Reps/Minutes X15 Comments with UE use verbal cues to perform slowly Hip Extension Standing Exercise Name Hip Extension Side bilateral Resistance Green Reps/Minutes X10 ea Comments cues for straight leg, no arching back. Neuro Re-Education Treatment Balance Activities obstacle course Details step to gait R/L and L/R Surface variety of foam pads Reps/Duration 2 x // bars Comments cues for head up, eyes up tandem Details Forward tandem ambulation Equipment // bars Reps/Duration 2x10ft ea step up taps Details CGA hands above bars Surface 6 step Equipment 5# Reps/Duration X8 each LE Semi-tandem Details Semi-tandem stance Equipment // bars Reps/Duration 10 feet X 2 Comments CGA Foam Details WBOS, EO/EC Equipment AirEx Comments CGA Hurdles Details Hurdles/Foam Equipment @ rail Comments Forward, Side-stepping PT-OP-T Assessment and Plan Start: 04/30/24 13:38 Freq: Status: Active Protocol: Document 06/10/24 10:47 KW (Rec: 06/10/24 11:08 KW Laptop) Physical Therapy Assessment Impairments Impairments Activity Tolerance,Balance, Functional Activities, Functional Mobility,Posture, Soft Tissue Mobility,Strength Goals Three Impairment Pt completes Five times Sit to container crane operator 25.24 Custodial Goal (LTG) Pt to improve time on 5xStS to <20 in order to demonstrate improved activity tolerance LTG Duration 06/30/24 Two Impairment Score on Rhodes Balance scale ( 40/56) indicates an increased falls risk Registered Nurse Hh Case Manager Goal (LTG) Pt to improve score on Rhodes Balance scale by at least 6 points to 46/56 in order to demonstrate a reduced falls risk. LTG Duration 06/30/24 One Impairment Pt does not have an appropriate home exercise program Short Term Goal (STG) Pt to be independent and compliant with an appropriate HEP STG Duration 05/31/24 Assessment Summary Assessment starting to encourage him to exercise outside of PT and start thinking of a shelter program for fitness. encourage 10 min of movement after every meal for blood sugar management. Tomorrow is next Podiatry appointment for updated plan Physical Therapy Plan Frequency and Duration Frequency of Treatment 2x/Week Plan of Care Start Date 04/30/24 Plan of Care End Date 06/30/24 Therapeutic Interventions Therapeutic Interventions Balance Training,Coordination Training,Gait Training,Home Exercise Program,Manual Therapy,Neuromuscular Re- education,Patient/Caregiver Education,Self-Care/Home Management,Soft Tissue Mobilization,Therapeutic Activities,Therapeutic Exercises,Vestibular Rehabilitation Next Visit Focus/Plan Next Note Type Treatment Note Next Visit Plan Next: Continue Nu-step, Shuttle Balance, trial STS with foam under feet, add foam stance and balloon volley, hurdles. POC: Balance challenges, LE strengthening, activity tolerance
[2024-06-12 14:43] VITALS: BP 121/67; PULSE 71; RESP 16; O2SAT 99
--- NOTE | 2024-06-12 15:17 | PT.OTN ---
Current Diagnoses Non-pressure chronic ulcer of other part of unspecified foot with unspecified severity (06/12/24) Unsteadiness on feet (06/12/24) Other abnormalities of gait and mobility (06/12/24) Repeated falls (06/12/24) Physical Therapy Treatment Note PT-OP-A Visit Information Start: 04/30/24 13:38 Freq: Status: Active Protocol: Document 06/12/24 14:43 KW (Rec: 06/12/24 14:47 KW Laptop) Out-Patient Physical Therapy Visit Information Visit Information Visit Type Treatment Note Visit Start Time 14:30 Visit Stop Time 15:15 Visit Number 13 Number of CERTIFIED ORTHOTIST Visits 0 PT-OP-B Current Condition Start: 04/30/24 13:38 Freq: Status: Active Protocol: Document 04/30/24 12:15 DCW (Rec: 04/30/24 17:53 DCW [id number]) Current Condition History of Current Condition Onset Date Multi-year history Current Complaints Falls, unsteadiness, neuropathy History of Current Condition Pt is a 68 year old male with a long-standing history of gait instability, neuropathy, and falls history. Pt reports he has been diagnosed with severe diabetic neuropathy, and has minimal proprioception feedback from his feel. Uses 4WW when out in the community, or electric carts at stores. Uses 4WW in studio apartment when able, but admits to furniture surfing most of the time because he doesn't have enough room for the walker. Lives at [facility], where he has resided for ~8 years. Does have a transfer pole in his bathroom between the shower and toilet. Does admit to a fall one week ago, getting out of the passenger side of the transport van, he took a side-step, stumbled, and fell, scraping his knee and hitting his head. Notes he was checked out by information systems consultant, and was cleared. More concerned with falls because quite frankly, I can't get up. PT-OP-C Subjective Start: 04/30/24 13:38 Freq: Status: Active Protocol: Document 06/12/24 14:43 KW (Rec: 06/12/24 14:47 KW Laptop) OP-PT Subjective Patient Comments Patient Comments had podiatry apt yesterday. Wound is not progressing to full healing so MD has asked him to go back to using knee scooter to keep pressure off of foot feels sleepy this afternoon after lunch PT-OP-D Balance Start: 04/30/24 13:38 Freq: Status: Active Protocol: Document 04/30/24 12:15 DCW (Rec: 04/30/24 13:43 DCW [id number]) Balance Tests Rhodes Balance Test Rhodes Balance Test Score 40/56 Rhodes Impairment Rating 20 to 39% Impaired (Score 34- 44) Rhodes Balance Assessment Evaluation Sitting to Standing Ability Independent w/out Hands Unsupported Stance Safely- 2 minutes Sitting Unsupported, Feet on Floor Safely- 2 minutes Standing to Sitting Ability Safely, Minimal Hand Use Transfer Ability Safely, Minimal Hand Use Unsupported Stance- Eyes Closed Supervision, 10 seconds Unsupported Stance- Eyes Open Assist to attain, 15 secs Reaching Forward Standing Safely, 5 inches Pick- Up Object From Floor Supervision Look Behind Shoulder - Standing Shifts Weight Unilateral Turning 360 Degrees Turns slowly, but safely Unsupported Stance, Alternating Feet on 4 Steps w/Supervision Stair Unsupported Tandem Stance Small Step- 30 seconds Unilateral Leg Stance Lifts Leg/Unable to Hold Total Score Rhodes Total Score (out of 56 points) 40 Rhodes Impairment Rating 20 to 39% Impaired (Score 34- 44) PT-OP-E Functional Tests Start: 04/30/24 13:38 Freq: Status: Active Protocol: Document 04/30/24 12:15 DCW (Rec: 04/30/24 13:43 DCW [id number]) Functional Tests Five Times Sit to Stand Test Score 25.24 Comments Mild UE use PT-OP-M Strength Start: 04/30/24 13:38 Freq: Status: Active Protocol: Document 04/30/24 12:15 DCW (Rec: 04/30/24 13:41 DCW [id number]) Hip Strength Hip Manual Muscle Testing Right Flexion (L2) 4 Good Extension (S1) 4- Good- Abduction 4- Good- Adduction 4 Good Left Flexion (L2) 4 Good Extension (S1) 4- Good- Abduction 4- Good- Adduction 4 Good Knee Strength Knee Manual Muscle Testing Right Flexion (S2) 4 Good Extension (L3) 4 Good Left Flexion (S2) 4 Good Extension (L3) 4 Good PT-OP-Q Treatments Start: 04/30/24 13:38 Freq: Status: Active Protocol: Document 06/12/24 14:43 KW (Rec: 06/12/24 14:49 KW Laptop) Cardio Equipment Recumbent Stepper (Sci-Fit) Duration (Minutes) 12 Resistance 2 Seat Position 11 Other handles set to length 9 Gym Equipment Shuttle Recovery Heel raise Details Abdi Heel raises, followed by 1 calf stretch Resistance 62# Shuttle Recovery Platform Stable Reps/Time x20, cues for full range Unilateral Squats Details cues for LE alignment Resistance 50# (2 navy) Shuttle Recovery Platform Stable Reps/Time x20 each LE Bilateral Squats Details cues for LE alignment Resistance 87# (3 navy) Shuttle Recovery Platform Stable Reps/Time x20 PT-OP-T Assessment and Plan Start: 04/30/24 13:38 Freq: Status: Active Protocol: Document 06/12/24 14:43 KW (Rec: 06/12/24 14:47 KW Laptop) Physical Therapy Assessment Goals Three Impairment Pt completes Five times Sit to ethics instructor 25.24 Long-Term Goal (LTG) Pt to improve time on 5xStS to <20 in order to demonstrate improved activity tolerance LTG Duration 06/30/24 Two Impairment Score on Rhodes Balance scale ( 40/56) indicates an increased falls risk Long-Term Goal (LTG) Pt to improve score on Rhodes Balance scale by at least 6 points to 46/56 in order to demonstrate a reduced falls risk. LTG Duration 06/30/24 One Impairment Pt does not have an appropriate home exercise program Short Term Goal (STG) Pt to be independent and compliant with an appropriate HEP STG Duration 05/31/24 Assessment Summary Assessment starting to encourage him to exercise outside of PT and start thinking of a technician terminal and repeater program for fitness. encourage 10 min of movement after every meal for blood sugar management. patient continues with good compliance and effort when here at PT visits. Physical Therapy Plan Frequency and Duration Frequency of Treatment 2x/Week Plan of Care Start Date 04/30/24 Plan of Care End Date 06/30/24 Therapeutic Interventions Therapeutic Interventions Balance Training,Coordination Training,Gait Training,Home Exercise Program,Manual Therapy,Neuromuscular Re- education,Patient/Caregiver Education,Self-Care/Home Management,Soft Tissue Mobilization,Therapeutic Activities,Therapeutic Exercises,Vestibular Rehabilitation Next Visit Focus/Plan Next Note Type Treatment Note Next Visit Plan Next: Continue Nu-step, Shuttle Balance, trial STS with foam under feet, add foam stance and balloon vollakeshia hartleydles. POC: Balance challenges, LE strengthening, activity tolerance
--- NOTE | 2024-06-19 11:38 | PT.OTN ---
Current Diagnoses Non-pressure chronic ulcer of other part of unspecified foot with unspecified severity (06/19/24) Unsteadiness on feet (06/19/24) Other abnormalities of gait and mobility (06/19/24) Repeated falls (06/19/24) Physical Therapy Treatment Note PT-OP-A Visit Information Start: 04/30/24 13:38 Freq: Status: Active Protocol: Document 06/19/24 10:51 KW (Rec: 06/19/24 11:38 KW Laptop) Out-Patient Physical Therapy Visit Information Visit Information Visit Type Treatment Note Visit Start Time 10:45 Visit Stop Time 11:30 Visit Number 14 Number of COMPUTERIZED TABLE CUTTER Visits 0 PT-OP-B Current Condition Start: 04/30/24 13:38 Freq: Status: Active Protocol: Document 04/30/24 12:15 DCW (Rec: 04/30/24 17:53 DCW [id number]) Current Condition History of Current Condition Onset Date Multi-year history Current Complaints Falls, unsteadiness, neuropathy History of Current Condition Pt is a 68 year old male with a long-standing history of gait instability, neuropathy, and falls history. Pt reports he has been diagnosed with severe diabetic neuropathy, and has minimal proprioception feedback from his feel. Uses 4WW when out in the community, or electric carts at stores. Uses 4WW in studio apartment when able, but admits to furniture surfing most of the time because he doesn't have enough room for the walker. Lives at [facility], where he has resided for ~8 years. Does have a transfer pole in his bathroom between the shower and toilet. Does admit to a fall one week ago, getting out of the passenger side of the transport van, he took a side-step, stumbled, and fell, scraping his knee and hitting his head. Notes he was checked out by dental laboratory technology teacher, and was cleared. More concerned with falls because quite frankly, I can't get up. PT-OP-C Subjective Start: 04/30/24 13:38 Freq: Status: Active Protocol: Document 06/19/24 10:51 KW (Rec: 06/19/24 11:38 KW Laptop) OP-PT Subjective Patient Comments Patient Comments has decided knee scooter is not a good option and will use power chair. has transfer pole in bathroom that he uses and will continue to use. Changing bandage every 2 days. Has upcoming apt with district manager postal service. blood sugar dropped low in night so ate sponge cake and 2 cookies to bring it up. Patient Reported Progress Same PT-OP-D Balance Start: 04/30/24 13:38 Freq: Status: Active Protocol: Document 06/19/24 10:51 KW (Rec: 06/19/24 11:38 KW Laptop) Yee Balance Assessment Evaluation Sitting to Standing Ability Independent w/out Hands Unsupported Stance Safely- 2 minutes Sitting Unsupported, Feet on Floor Safely- 2 minutes Standing to Sitting Ability Safely, Minimal Hand Use Transfer Ability Safely, Hand Use Unsupported Stance- Eyes Closed Supervision, 10 seconds Unsupported Stance- Eyes Open Independent, 1 minute Reaching Forward Standing Safely, 5 inches Pick- Up Object From Floor Supervision Look Behind Shoulder - Standing Shifts Weight Well Turning 360 Degrees Turns slowly, but safely Unsupported Stance, Alternating Feet on Assist to Prevent Fall Stair Unsupported Tandem Stance Balance Lost- Step/Stand Unilateral Leg Stance Unable,assist to not fall Total Score Yee Total Score (out of 56 points) 38 Yee Impairment Rating 20 to 39% Impaired (Score 34- 44) PT-OP-E Functional Tests Start: 04/30/24 13:38 Freq: Status: Active Protocol: Document 06/19/24 10:51 KW (Rec: 06/19/24 11:38 KW Laptop) Functional Tests Five Times Sit to Stand Test Score 24.07 Comments cues to come to full stand PT-OP-M Strength Start: 04/30/24 13:38 Freq: Status: Active Protocol: Document 04/30/24 12:15 DCW (Rec: 04/30/24 13:41 DCW [id number]) Hip Strength Hip Manual Muscle Testing Right Flexion (L2) 4 Good Extension (S1) 4- Good- Abduction 4- Good- Adduction 4 Good Left Flexion (L2) 4 Good Extension (S1) 4- Good- Abduction 4- Good- Adduction 4 Good Knee Strength Knee Manual Muscle Testing Right Flexion (S2) 4 Good Extension (L3) 4 Good Left Flexion (S2) 4 Good Extension (L3) 4 Good PT-OP-Q Treatments Start: 04/30/24 13:38 Freq: Status: Active Protocol: Document 06/19/24 10:51 KW (Rec: 06/19/24 11:38 KW Laptop) Cardio Equipment Recumbent Stepper (Sci-Fit) Duration (Minutes) 12 Resistance 2 Seat Position 11 Other handles set to length 9 Neuro Re-Education Treatment Balance Activities obstacle course Details step to gait R/L and L/R Surface variety of foam pads Reps/Duration 2 x // bars Comments cues for head up, eyes up tandem Details Forward tandem ambulation Equipment // bars Reps/Duration 2x10ft ea step up taps Details CGA hands above bars Surface 6 step Equipment 5# Reps/Duration X8 each LE Foam Details WBOS, EO/EC Equipment AirEx Comments CGA Hurdles Details Hurdles/Foam Equipment @ rail Comments Forward, Side-stepping PT-OP-T Assessment and Plan Start: 04/30/24 13:38 Freq: Status: Active Protocol: Document 06/19/24 10:51 KW (Rec: 06/19/24 11:38 KW Laptop) Physical Therapy Assessment Rehab Potential Rehabilitation Potential Fair Goals Three Impairment Pt completes Five times Sit to screen making technician 25.24 [facility] Goal (LTG) Pt to improve time on 5xStS to <20 in order to demonstrate improved activity tolerance LTG Duration 06/30/24 Two Impairment Score on Yee Balance scale ( 40/56) indicates an increased falls risk Deep Submergence Vehicle Operator Goal (LTG) Pt to improve score on Yee Balance scale by at least 6 points to 46/56 in order to demonstrate a reduced falls risk. LTG Duration 06/30/24 One Impairment Pt does not have an appropriate home exercise program Short Term Goal (STG) Pt to be independent and compliant with an appropriate HEP STG Duration 05/31/24 Assessment Summary Assessment YEE and 5 x sit to stand, slightly improved but no significant difference with PT . wound healing continues to be a problem, blood sugar management and nutrition are still a challenge for Josue. Physical Therapy Plan Frequency and Duration Frequency of Treatment 2x/Week Plan of Care Start Date 04/30/24 Plan of Care End Date 06/30/24 Therapeutic Interventions Therapeutic Interventions Balance Training,Coordination Training,Gait Training,Home Exercise Program,Manual Therapy,Neuromuscular Re- education,Patient/Caregiver Education,Self-Care/Home Management,Soft Tissue Mobilization,Therapeutic Activities,Therapeutic Exercises,Vestibular Rehabilitation Next Visit Focus/Plan Next Note Type Treatment Note Next Visit Plan Next: 2 more visits. Prepare to DC. Continue Nu-step, Shuttle Balance, trial STS with foam under feet, add foam stance and balloon marline mendoza. POC: Balance challenges, LE strengthening, activity tolerance
--- NOTE | 2024-06-25 15:20 | PT.OTN ---
Current Diagnoses Non-pressure chronic ulcer of other part of unspecified foot with unspecified severity (06/25/24) Unsteadiness on feet (06/25/24) Other abnormalities of gait and mobility (06/25/24) Repeated falls (06/25/24) Physical Therapy Treatment Note PT-OP-A Visit Information Start: 04/30/24 13:38 Freq: Status: Active Protocol: Document 06/25/24 14:36 PG (Rec: 06/25/24 15:58 PG [id number]) Out-Patient Physical Therapy Visit Information Visit Information Visit Type Treatment Note Visit Note Katelin HUMPHREY led tx with permission of pt and direct supervision of Bertha RASMUSSEN. Visit Start Time 14:36 Visit Stop Time 15:20 Visit Number 15 Number of SHAREPOINT ENGINEER Visits 1 PT-OP-B Current Condition Start: 04/30/24 13:38 Freq: Status: Active Protocol: Document 04/30/24 12:15 DCW (Rec: 04/30/24 17:53 DCW [id number]) Current Condition History of Current Condition Onset Date Multi-year history Current Complaints Falls, unsteadiness, neuropathy History of Current Condition Pt is a 68 year old male with a long-standing history of gait instability, neuropathy, and falls history. Pt reports he has been diagnosed with severe diabetic neuropathy, and has minimal proprioception feedback from his feel. Uses 4WW when out in the community, or electric carts at stores. Uses 4WW in stud apartment when able, but admits to furniture surfing most of the time because he doesn't have enough room for the walker. Lives at [facility], where he has resided for ~8 years. Does have a transfer pole in his bathroom between the shower and toilet. Does admit to a fall one week ago, getting out of the passenger side of the transport van, he took a side-step, stumbled, and fell, scraping his knee and hitting his head. Notes he was checked out by organ teacher, and was cleared. More concerned with falls because quite frankly, I can't get up. PT-OP-C Subjective Start: 04/30/24 13:38 Freq: Status: Active Protocol: Document 06/25/24 14:36 PG (Rec: 06/25/24 15:58 PG [id number]) OP-PT Subjective Patient Comments Patient Comments When asked about trying to be active for 10min after meals to manage blood sugar pt stated he tries to but currently has a diabetic sore and is supposed to limit the amount of time he's on his feet. Left break on walker is broken, pt has a list of resources to go through to try and get it fixed. PT-OP-D Balance Start: 04/30/24 13:38 Freq: Status: Active Protocol: Document 06/19/24 10:51 KW (Rec: 06/19/24 11:38 KW Laptop) Rhodes Balance Assessment Evaluation Sitting to Standing Ability Independent w/out Hands Unsupported Stance Safely- 2 minutes Sitting Unsupported, Feet on Floor Safely- 2 minutes Standing to Sitting Ability Safely, Minimal Hand Use Transfer Ability Safely, Hand Use Unsupported Stance- Eyes Closed Supervision, 10 seconds Unsupported Stance- Eyes Open Independent, 1 minute Reaching Forward Standing Safely, 5 inches Pick- Up Object From Floor Supervision Look Behind Shoulder - Standing Shifts Weight Well Turning 360 Degrees Turns slowly, but safely Unsupported Stance, Alternating Feet on Assist to Prevent Fall Stair Unsupported Tandem Stance Balance Lost- Step/Stand Unilateral Leg Stance Unable,assist to not fall Total Score Rhodes Total Score (out of 56 points) 38 Rhodes Impairment Rating 20 to 39% Impaired (Score 34- 44) PT-OP-E Functional Tests Start: 04/30/24 13:38 Freq: Status: Active Protocol: Document 06/19/24 10:51 KW (Rec: 06/19/24 11:38 KW Laptop) Functional Tests Five Times Sit to Stand Test Score 24.07 Comments cues to come to full stand PT-OP-M Strength Start: 04/30/24 13:38 Freq: Status: Active Protocol: Document 04/30/24 12:15 DCW (Rec: 04/30/24 13:41 DCW [id number]) Hip Strength Hip Manual Muscle Testing Right Flexion (L2) 4 Good Extension (S1) 4- Good- Abduction 4- Good- Adduction 4 Good Left Flexion (L2) 4 Good Extension (S1) 4- Good- Abduction 4- Good- Adduction 4 Good Knee Strength Knee Manual Muscle Testing Right Flexion (S2) 4 Good Extension (L3) 4 Good Left Flexion (S2) 4 Good Extension (L3) 4 Good PT-OP-Q Treatments Start: 04/30/24 13:38 Freq: Status: Active Protocol: Document 06/25/24 14:36 PG (Rec: 06/25/24 15:58 PG [id number]) Cardio Equipment Recumbent Stepper (Sci-Fit) Duration (Minutes) 8 Resistance 2 Seat Position 11 Other handles set to length 9 Gym Equipment Shuttle Recovery Unilateral Squats Details cues for LE alignment Resistance 50# (2 navy) Shuttle Recovery Platform Stable Reps/Time x10 each LE Bilateral Squats Details cues for LE alignment Resistance 87# (3 navy) Shuttle Recovery Platform Stable Reps/Time x20 Shuttle Balance red clips Details WBOS Comments pt required CG-10%A and cues to weight shift forward, engage core and glute muscles to help with stability. Pt was able to maintain balance and decrease shakiness and UE' s support to fingertips only. Therapeutic Exercises Sitting Exercises STS Equipment Used mesh chair Reps/Minutes x 3 Comments cues to reach back for chair to reduce falling back into seat Neuro Re-Education Treatment Balance Activities Foam Details Balloon Volleyball, WBOS Equipment AirEx Comments cues for fwd weight shift, feeling all toes on the ground PT-OP-T Assessment and Plan Start: 04/30/24 13:38 Freq: Status: Active Protocol: Document 06/25/24 14:36 PG (Rec: 06/25/24 15:58 PG [id number]) Physical Therapy Assessment Goals Three Impairment Pt completes Five times Sit to physician support coordinator 25.24 Half-Way Goal (LTG) Pt to improve time on 5xStS to <20 in order to demonstrate improved activity tolerance LTG Duration 06/30/24 Two Impairment Score on Rhodes Balance scale ( 40/56) indicates an increased falls risk Half-Way Goal (LTG) Pt to improve score on Rhodes Balance scale by at least 6 points to 46/56 in order to demonstrate a reduced falls risk. LTG Duration 06/30/24 One Impairment Pt does not have an appropriate home exercise program Short Term Goal (STG) Pt to be independent and compliant with an appropriate HEP STG Duration 05/31/24 Assessment Summary Assessment Pt was challenged with shuttle balance today, required many cues to engage core, glutes, and weight shift forward to help maintain balance. Pt was able to maintain balance for >30 seconds with 0-10% of SPTA assistance and bilateral UE fingertip support. Pt did report LBP post shuttle balance activity, educated pt on importance of engaging core to help protect and support the low back, instructed pt in Post/Ant pelvic tilts to help decrease discomfort. Trialed balloon volleyball while standing on foam to work on dynamic standing balance, pt demonstrated a consistent posterior weight shift while standing on foam and required at least 5% SPTA assistance but was able to weight shift fwrd and require CGA only with v/c's from SPTA and SHAREPOINT ENGINEER. Did not trial STS's with foam due to pt's lack of control when sitting from standing. Worked on regular STS's with cues to reach behind for chair arm to assist with controlling their movement. Physical Therapy Plan Frequency and Duration Frequency of Treatment 2x/Week Plan of Care Start Date 04/30/24 Plan of Care End Date 06/30/24 Therapeutic Interventions Therapeutic Interventions Balance Training,Coordination Training,Gait Training,Home Exercise Program,Manual Therapy,Neuromuscular Re- education,Patient/Caregiver Education,Self-Care/Home Management,Soft Tissue Mobilization,Therapeutic Activities,Therapeutic Exercises,Vestibular Rehabilitation Next Visit Focus/Plan Next Note Type Treatment Note Next Visit Plan Next: 1 more visits. Prepare to DC. Be sure pt is comfortable with HEP. Continue Nu-step, continue with shuttle Balance, trial STS with foam under feet, continue with hurdles. POC: Balance challenges, LE strengthening, activity tolerance
--- NOTE | 2024-06-27 15:16 | PT.OTN ---
Current Diagnoses Non-pressure chronic ulcer of other part of unspecified foot with unspecified severity (06/27/24) Unsteadiness on feet (06/27/24) Other abnormalities of gait and mobility (06/27/24) Repeated falls (06/27/24) Physical Therapy Treatment Note PT-OP-A Visit Information Start: 04/30/24 13:38 Freq: Status: Active Protocol: Document 06/27/24 14:30 DCW (Rec: 06/27/24 15:16 DCW [id number]) Out-Patient Physical Therapy Visit Information Visit Information Visit Type Discharge Summary Visit Start Time 14:30 Visit Stop Time 15:15 Visit Number 16 Number of ELECTION WATCHER Visits 0 Evaluation Information Evaluation Date 04/30/24 PT-OP-B Current Condition Start: 04/30/24 13:38 Freq: Status: Active Protocol: Document 04/30/24 12:15 DCW (Rec: 04/30/24 17:53 DCW [id number]) Current Condition History of Current Condition Onset Date Multi-year history Current Complaints Falls, unsteadiness, neuropathy History of Current Condition Pt is a 68 year old male with a long-standing history of gait instability, neuropathy, and falls history. Pt reports he has been diagnosed with severe diabetic neuropathy, and has minimal proprioception feedback from his feel. Uses 4WW when out in the community, or electric carts at stores. Uses 4WW in stud apartment when able, but admits to furniture surfing most of the time because he doesn't have enough room for the walker. Lives at [facility], where he has resided for ~8 years. Does have a transfer pole in his bathroom between the shower and toilet. Does admit to a fall one week ago, getting out of the passenger side of the transport van, he took a side-step, stumbled, and fell, scraping his knee and hitting his head. Notes he was checked out by retail warehouse associate, and was cleared. More concerned with falls because quite frankly, I can't get up. PT-OP-C Subjective Start: 04/30/24 13:38 Freq: Status: Active Protocol: Document 06/27/24 14:30 DCW (Rec: 06/27/24 14:32 DCW [id number]) OP-PT Subjective Patient Comments Patient Comments I'm very tired today. PT-OP-D Balance Start: 04/30/24 13:38 Freq: Status: Active Protocol: Document 06/19/24 10:51 KW (Rec: 06/19/24 11:38 KW Laptop) Rhodes Balance Assessment Evaluation Sitting to Standing Ability Independent w/out Hands Unsupported Stance Safely- 2 minutes Sitting Unsupported, Feet on Floor Safely- 2 minutes Standing to Sitting Ability Safely, Minimal Hand Use Transfer Ability Safely, Hand Use Unsupported Stance- Eyes Closed Supervision, 10 seconds Unsupported Stance- Eyes Open Independent, 1 minute Reaching Forward Standing Safely, 5 inches Pick- Up Object From Floor Supervision Look Behind Shoulder - Standing Shifts Weight Well Turning 360 Degrees Turns slowly, but safely Unsupported Stance, Alternating Feet on Assist to Prevent Fall Stair Unsupported Tandem Stance Balance Lost- Step/Stand Unilateral Leg Stance Unable,assist to not fall Total Score Rhodes Total Score (out of 56 points) 38 Rhodes Impairment Rating 20 to 39% Impaired (Score 34- 44) PT-OP-E Functional Tests Start: 04/30/24 13:38 Freq: Status: Active Protocol: Document 06/19/24 10:51 KW (Rec: 06/19/24 11:38 KW Laptop) Functional Tests Five Times Sit to Stand Test Score 24.07 Comments cues to come to full stand PT-OP-M Strength Start: 04/30/24 13:38 Freq: Status: Active Protocol: Document 04/30/24 12:15 DCW (Rec: 04/30/24 13:41 DCW [id number]) Hip Strength Hip Manual Muscle Testing Right Flexion (L2) 4 Good Extension (S1) 4- Good- Abduction 4- Good- Adduction 4 Good Left Flexion (L2) 4 Good Extension (S1) 4- Good- Abduction 4- Good- Adduction 4 Good Knee Strength Knee Manual Muscle Testing Right Flexion (S2) 4 Good Extension (L3) 4 Good Left Flexion (S2) 4 Good Extension (L3) 4 Good PT-OP-Q Treatments Start: 04/30/24 13:38 Freq: Status: Active Protocol: Document 06/27/24 14:30 DCW (Rec: 06/27/24 15:16 DCW [id number]) Gym Equipment Shuttle Recovery Unilateral Squats Details cues for LE alignment Resistance 50# (2 navy) Shuttle Recovery Platform Stable Reps/Time x10 each LE Bilateral Squats Details cues for LE alignment Resistance 87# (3 navy) Shuttle Recovery Platform Stable Reps/Time x20 Neuro Re-Education Treatment Balance Activities tandem Details Tandem Stance Equipment // bars Hurdles Details Hurdles Equipment @ rail Comments Forward, Side-stepping PT-OP-T Assessment and Plan Start: 04/30/24 13:38 Freq: Status: Active Protocol: Document 06/27/24 14:30 DCW (Rec: 06/27/24 15:16 DCW [id number]) Physical Therapy Assessment Impairments Impairments Activity Tolerance,Balance, Functional Activities, Functional Mobility,Posture, Soft Tissue Mobility,Strength Goals Three Impairment Pt completes Five times Sit to cutting machine tender 25.24 An Employee Sponsor Or Advocate And Goal (LTG) Pt to improve time on 5xStS to <20 in order to demonstrate improved activity tolerance LTG Duration 06/30/24 Two Impairment Score on Rhodes Balance scale ( 40/56) indicates an increased falls risk An Employee Sponsor Or Advocate And Goal (LTG) Pt to improve score on Rhodes Balance scale by at least 6 points to 46/56 in order to demonstrate a reduced falls risk. LTG Duration 06/30/24 One Impairment Pt does not have an appropriate home exercise program Short Term Goal (STG) Pt to be independent and compliant with an appropriate HEP STG Duration 05/31/24 Assessment Summary Assessment Pt largely unchanged with 5xStS and Rhodes Balance Scale. Does continue to be limited by slowly healing ulcer on foot. Has been advised to use knee scooter more at home to decrease weightbearing. Pt progress has largely plateaued . Will be discharged from skilled therapy at this time. Understands he will need a new referral in order to return to PT in the future. Physical Therapy Plan Frequency and Duration Frequency of Treatment 2x/Week Plan of Care Start Date 04/30/24 Plan of Care End Date 06/30/24 Therapeutic Interventions Therapeutic Interventions Balance Training,Coordination Training,Gait Training,Home Exercise Program,Manual Therapy,Neuromuscular Re- education,Patient/Caregiver Education,Self-Care/Home Management,Soft Tissue Mobilization,Therapeutic Activities,Therapeutic Exercises,Vestibular Rehabilitation Discharge Physical Therapy Discharge Reasons Plateau in Progress Next Visit Focus/Plan Next Note Type Discharge Summary
== END 2024-06-28 13:49 | disposition home or self-care (01) ==
LOC: PHYS 14:30
PROVIDERS: Family Provider Nurse Practitioner Family; PCP Nurse Practitioner Family; Referring Provider Nurse Practitioner Family; Visit Provider Nurse Practitioner Family
DX: R26.89 Other abnormalities of gait and mobility (principal); R26.81 Unsteadiness on feet; R29.6 Repeated falls; L97.509 Non-pressure chronic ulcer of other part of unspecified foot with unspecified severity
CPT/HCPCS: 97110; 97112; 97163

== ENCOUNTER → 2024-07-17 06:04 | Outpatient (ROUT) | payer MEDICARE, MEDICAID, SELFPAY ==
[2024-04-08 18:26] VITALS: BMI 38.5
[2024-07-17 07:21] LABS: Hemoglobin A1C% w Est Avg Glu 6.5 % (4.0-6.0)
== END ==
PROVIDERS: Family Provider Nurse Practitioner Family; PCP Nurse Practitioner Family; Visit Provider Nurse Practitioner Family
DX: E11.42 Type 2 diabetes mellitus with diabetic polyneuropathy (principal)
CPT/HCPCS: 36415; 83036

== ENCOUNTER → 2024-07-31 08:44 | Outpatient (CLI) | payer MEDICARE, MEDICAID, SELFPAY ==
[2024-04-08 18:26] VITALS: BMI 38.5
== END ==
PROVIDERS: Family Provider Nurse Practitioner Family; PCP Nurse Practitioner Family; Referring Provider Podiatrist; Visit Provider Surgery
DX: E11.621 Type 2 diabetes mellitus with foot ulcer (principal); E11.40 Type 2 diabetes mellitus with diabetic neuropathy, unspecified; L97.412 Non-pressure chronic ulcer of right heel and midfoot with fat layer exposed; L84 Corns and callosities; I87.311 Chronic venous hypertension (idiopathic) with ulcer of right lower extremity; L03.116 Cellulitis of left lower limb; I73.9 Peripheral vascular disease, unspecified; Z86.14 Personal history of Methicillin resistant Staphylococcus aureus infection; Z87.442 Personal history of urinary calculi; G47.30 Sleep apnea, unspecified; I10 Essential (primary) hypertension; F32.9 Major depressive disorder, single episode, unspecified; E66.01 Morbid (severe) obesity due to excess calories; Z68.39 Body mass index [BMI] 39.0-39.9, adult
CPT/HCPCS: 87070; 87077; 87205; 99214

== ENCOUNTER → 2024-07-31 10:04 | Outpatient (CLI) | payer MEDICARE, MEDICAID, SELFPAY ==
[2024-04-08 18:26] VITALS: BMI 38.5
--- NOTE | 2024-07-31 10:07 | DI.RAD.S_ITS ---
PROCEDURE: XR FOOT RT MIN 3V INDICATIONS: non-healing ulcer on right plantar first metatarsal head TECHNIQUE: 3 views of the foot were acquired. COMPARISON: [facility], CR, XR FOOT RT MIN 3V, 11/14/2023, 15:23. FINDINGS: Bones: Severe hallux valgus , os trigonum moderate metatarsus abductus and pes planus noted. There also hammertoe deformities in the 1st through 5th digits. Second ray amputation at the MTP level shows typical postop appearance. Malunified old fracture of the 1st proximal phalangeal base seen as before. No radiographic evidence for osteomyelitis Joints: Moderate degeneration in the 1st MTP and the 3rd through 5th interphalangeal joints Soft tissues: Minor calcification Achilles and plantar tendon insertions. Diffuse soft tissue swelling noted IMPRESSION: Diffuse soft tissue swelling which could indicate cellulitis. No specific radiographic evidence for osteomyelitis. Multiple chronic findings stable Dictated by: Sushil Odell M.D. on 08/01/2024 at 12:14 Approved by: Sushil Odell M.D. on 08/01/2024 at 12:16
== END ==
PROVIDERS: Family Provider Nurse Practitioner Family; PCP Nurse Practitioner Family; Referring Provider Surgery; Visit Provider Surgery
DX: E11.621 Type 2 diabetes mellitus with foot ulcer (principal); L97.509 Non-pressure chronic ulcer of other part of unspecified foot with unspecified severity; M19.071 Primary osteoarthritis, right ankle and foot; M79.89 Other specified soft tissue disorders; M20.11 Hallux valgus (acquired), right foot; M20.41 Other hammer toe(s) (acquired), right foot; M21.41 Flat foot [pes planus] (acquired), right foot; M21.6X1 Other acquired deformities of right foot; Z87.81 Personal history of (healed) traumatic fracture
CPT/HCPCS: 73630; 87070; 87205

== ENCOUNTER → 2024-08-02 09:57 | Outpatient (CLI) | payer MEDICARE, MEDICAID, SELFPAY ==
[2024-04-08 18:26] VITALS: BMI 38.5
== END ==
LOC: WC 09:57
PROVIDERS: Family Provider Nurse Practitioner Family; PCP Nurse Practitioner Family; Referring Provider Nurse Practitioner Family; Visit Provider Physician Assistant
DX: E11.621 Type 2 diabetes mellitus with foot ulcer (principal); L97.412 Non-pressure chronic ulcer of right heel and midfoot with fat layer exposed; L84 Corns and callosities
CPT/HCPCS: 99213

== ENCOUNTER → 2024-08-05 10:41 | Outpatient (CLI) | payer MEDICARE, MEDICAID, SELFPAY ==
[2024-04-08 18:26] VITALS: BMI 38.5
== END ==
LOC: WC 10:46
PROVIDERS: Family Provider Nurse Practitioner Family; PCP Nurse Practitioner Family; Referring Provider Nurse Practitioner Family; Visit Provider Surgery
DX: E11.621 Type 2 diabetes mellitus with foot ulcer (principal); L97.412 Non-pressure chronic ulcer of right heel and midfoot with fat layer exposed; L84 Corns and callosities
CPT/HCPCS: 99212

== ENCOUNTER → 2024-08-07 09:12 | Outpatient (CLI) | payer MEDICARE, MEDICAID, SELFPAY ==
[2024-04-08 18:26] VITALS: BMI 38.5
== END ==
LOC: WC 09:15
PROVIDERS: Family Provider Nurse Practitioner Family; PCP Nurse Practitioner Family; Referring Provider Nurse Practitioner Family; Visit Provider Surgery
DX: E11.621 Type 2 diabetes mellitus with foot ulcer (principal); E11.42 Type 2 diabetes mellitus with diabetic polyneuropathy; L97.412 Non-pressure chronic ulcer of right heel and midfoot with fat layer exposed; L84 Corns and callosities; M14.671 Charcot's joint, right ankle and foot; E66.01 Morbid (severe) obesity due to excess calories; Z68.39 Body mass index [BMI] 39.0-39.9, adult
CPT/HCPCS: 11042

== ENCOUNTER → 2024-08-09 09:28 | Outpatient (CLI) | payer MEDICARE, MEDICAID, SELFPAY ==
[2024-04-08 18:26] VITALS: BMI 38.5
== END ==
LOC: WC 09:28
PROVIDERS: Family Provider Nurse Practitioner Family; PCP Nurse Practitioner Family; Referring Provider Nurse Practitioner Family; Visit Provider Physician Assistant
DX: E11.621 Type 2 diabetes mellitus with foot ulcer (principal); L97.412 Non-pressure chronic ulcer of right heel and midfoot with fat layer exposed; L84 Corns and callosities
CPT/HCPCS: 99213

== ENCOUNTER → 2024-08-12 09:06 | Outpatient (CLI) | payer MEDICARE, MEDICAID, SELFPAY ==
[2024-04-08 18:26] VITALS: BMI 38.5
== END ==
LOC: WC 09:07
PROVIDERS: Family Provider Nurse Practitioner Family; PCP Nurse Practitioner Family; Referring Provider Nurse Practitioner Family; Visit Provider Physician Assistant
DX: E11.621 Type 2 diabetes mellitus with foot ulcer (principal); L97.412 Non-pressure chronic ulcer of right heel and midfoot with fat layer exposed; L84 Corns and callosities
CPT/HCPCS: 99213

== ENCOUNTER → 2024-08-14 11:31 | Outpatient (CLI) | payer MEDICARE, MEDICAID, SELFPAY ==
[2024-04-08 18:26] VITALS: BMI 38.5
== END ==
LOC: WC 11:32
PROVIDERS: Family Provider Nurse Practitioner Family; PCP Nurse Practitioner Family; Referring Provider Podiatrist; Visit Provider Surgery
DX: E11.621 Type 2 diabetes mellitus with foot ulcer (principal); E11.42 Type 2 diabetes mellitus with diabetic polyneuropathy; L97.412 Non-pressure chronic ulcer of right heel and midfoot with fat layer exposed; L84 Corns and callosities; M14.671 Charcot's joint, right ankle and foot; I73.9 Peripheral vascular disease, unspecified; E66.01 Morbid (severe) obesity due to excess calories; Z68.39 Body mass index [BMI] 39.0-39.9, adult
CPT/HCPCS: 11042

== ENCOUNTER → 2024-08-16 12:53 | Outpatient (CLI) | payer MEDICARE, MEDICAID, SELFPAY ==
[2024-04-08 18:26] VITALS: BMI 38.5
== END ==
LOC: WC 12:59
PROVIDERS: Family Provider Nurse Practitioner Family; PCP Nurse Practitioner Family; Referring Provider Nurse Practitioner Family; Visit Provider Surgery
DX: E11.621 Type 2 diabetes mellitus with foot ulcer (principal); L97.412 Non-pressure chronic ulcer of right heel and midfoot with fat layer exposed; L84 Corns and callosities
CPT/HCPCS: 99213

== ENCOUNTER → 2024-08-19 08:51 | Outpatient (CLI) | payer MEDICARE, MEDICAID, SELFPAY ==
[2024-04-08 18:26] VITALS: BMI 38.5
== END ==
LOC: WC 08:56
PROVIDERS: Family Provider Nurse Practitioner Family; PCP Nurse Practitioner Family; Referring Provider Nurse Practitioner Family; Visit Provider Surgery
DX: E11.621 Type 2 diabetes mellitus with foot ulcer (principal); L97.412 Non-pressure chronic ulcer of right heel and midfoot with fat layer exposed; L84 Corns and callosities
CPT/HCPCS: 99213

== ENCOUNTER → 2024-08-21 09:24 | Outpatient (CLI) | payer MEDICARE, MEDICAID, SELFPAY ==
[2024-04-08 18:26] VITALS: BMI 38.5
== END ==
LOC: WC 09:31
PROVIDERS: Family Provider Nurse Practitioner Family; PCP Nurse Practitioner Family; Referring Provider Nurse Practitioner Family; Visit Provider Surgery
DX: E11.621 Type 2 diabetes mellitus with foot ulcer (principal); E11.42 Type 2 diabetes mellitus with diabetic polyneuropathy; L97.412 Non-pressure chronic ulcer of right heel and midfoot with fat layer exposed; L84 Corns and callosities; I73.9 Peripheral vascular disease, unspecified; M14.671 Charcot's joint, right ankle and foot
CPT/HCPCS: 99213

== ENCOUNTER → 2024-08-26 11:40 | Outpatient (CLI) | payer MEDICARE, MEDICAID, SELFPAY ==
[2024-04-08 18:26] VITALS: BMI 38.5
== END ==
LOC: WC 11:41
PROVIDERS: Family Provider Nurse Practitioner Family; PCP Nurse Practitioner Family; Referring Provider Nurse Practitioner Family; Visit Provider Surgery
DX: E11.621 Type 2 diabetes mellitus with foot ulcer (principal); L97.412 Non-pressure chronic ulcer of right heel and midfoot with fat layer exposed; L84 Corns and callosities
CPT/HCPCS: 99213

== ENCOUNTER → 2024-08-28 09:12 | Outpatient (CLI) | payer MEDICARE, MEDICAID, SELFPAY ==
[2024-04-08 18:26] VITALS: BMI 38.5
== END ==
LOC: WC 09:12
PROVIDERS: Family Provider Nurse Practitioner Family; PCP Nurse Practitioner Family; Referring Provider Nurse Practitioner Family; Visit Provider Surgery
DX: Z86.31 Personal history of diabetic foot ulcer (principal)
CPT/HCPCS: 99213

== ENCOUNTER → 2024-09-04 09:18 | Outpatient (CLI) | payer MEDICARE, MEDICAID, SELFPAY ==
[2024-04-08 18:26] VITALS: BMI 38.5
== END ==
LOC: WC 09:21
PROVIDERS: Family Provider Nurse Practitioner Family; PCP Nurse Practitioner Family; Referring Provider Registered Nurse; Visit Provider Nurse Practitioner Family
DX: Z86.31 Personal history of diabetic foot ulcer (principal)
CPT/HCPCS: 99212; 99213

== ENCOUNTER → 2024-10-15 14:35 | Outpatient (CLI) | payer MEDICARE, MEDICAID, SELFPAY ==
[2024-04-08 18:26] VITALS: BMI 38.5
== END ==
LOC: WC 14:45
PROVIDERS: Family Provider Nurse Practitioner Family; PCP Nurse Practitioner Family; Referring Provider Nurse Practitioner Family; Visit Provider Surgery
DX: E11.621 Type 2 diabetes mellitus with foot ulcer (principal); L97.512 Non-pressure chronic ulcer of other part of right foot with fat layer exposed; L98.8 Other specified disorders of the skin and subcutaneous tissue; E11.40 Type 2 diabetes mellitus with diabetic neuropathy, unspecified; E11.610 Type 2 diabetes mellitus with diabetic neuropathic arthropathy; E11.51 Type 2 diabetes mellitus with diabetic peripheral angiopathy without gangrene; Z89.421 Acquired absence of other right toe(s); K75.81 Nonalcoholic steatohepatitis (NASH); E66.9 Obesity, unspecified; Z68.38 Body mass index [BMI] 38.0-38.9, adult
CPT/HCPCS: 97597; 99213

== ENCOUNTER → 2024-10-22 11:49 | Outpatient (CLI) | payer MEDICARE, MEDICAID, SELFPAY ==
[2024-04-08 18:26] VITALS: BMI 38.5
== END ==
LOC: WC 11:49
PROVIDERS: Family Provider Nurse Practitioner Family; PCP Nurse Practitioner Family; Referring Provider Nurse Practitioner Family; Visit Provider Surgery
DX: E11.40 Type 2 diabetes mellitus with diabetic neuropathy, unspecified (principal); E11.610 Type 2 diabetes mellitus with diabetic neuropathic arthropathy; K75.81 Nonalcoholic steatohepatitis (NASH)
CPT/HCPCS: 99213

== ENCOUNTER → 2024-11-20 06:46 | Outpatient (ROUT) | payer MEDICARE, MEDICAID, SELFPAY ==
[2024-04-08 18:26] VITALS: BMI 38.5
[2024-11-20 07:47] LABS: Hematocrit 28.9 % (41-53); Hemoglobin 9.9 g/dL (13.5-17.5); Mean Corpuscular HGB Conc 34.3 % (30-36); Mean Corpuscular Hemoglobin 31.3 PG (26-34); Mean Corpuscular Volume 91.3 fL (80-100); Platelet Count 128 X10^3/uL (150-400)
[2024-11-20 07:50] LABS: Hemoglobin A1C% w Est Avg Glu 7.3 % (4.0-6.0)
[2024-11-20 08:01] LABS: Alanine Aminotransferase 31 IU/L (<50); Albumin 3.0 g/dL (3.5-5.0); Albumin Globulin Ratio 1.3 (1.0-2.8); Alkaline Phosphatase 86 U/L (38-126); Blood Urea Nitrogen 16 mg/dL (9-20); Calcium 8.6 mg/dL (8.4-10.2); Carbon Dioxide 28 mmol/L (22-32); Chloride 105 mmol/L (98-107); Estimated Glomerular Filt Rate > 60 mL/min (>60); Globulin 2.3 g/dL (1.7-4.1); Glucose 229 mg/dL (70-99); HEMOLYSIS < 15 (0-50); Potassium 4.3 mmol/L (3.4-5.1); Sodium 138 mmol/L (137-145); Total Protein 5.3 g/dL (6.3-8.2)
[2024-11-20 08:02] LABS: Ammonia (NH3) 45 umol/L (9-30)
== END ==
PROVIDERS: Family Provider Nurse Practitioner Family; PCP Nurse Practitioner Family; Visit Provider Nurse Practitioner Family
DX: K76.82 Hepatic encephalopathy (principal); E11.42 Type 2 diabetes mellitus with diabetic polyneuropathy; I50.9 Heart failure, unspecified; K74.60 Unspecified cirrhosis of liver; E66.01 Morbid (severe) obesity due to excess calories; F32.9 Major depressive disorder, single episode, unspecified
CPT/HCPCS: 36415; 80053; 82140; 83036; 85027

== ENCOUNTER → 2024-12-04 06:26 | Outpatient (ROUT) | payer MEDICARE, MEDICAID, SELFPAY ==
[2024-04-08 18:26] VITALS: BMI 38.5
[2024-12-04 07:36] LABS: Iron 84 ug/dL (49-181)
[2024-12-04 08:12] LABS: Ferritin 64 ng/mL (18-464)
[2024-12-04 08:44] LABS: Folate 18.3 ng/mL (2.76-20.0); Vitamin B12 808 pg/mL (239-931)
== END ==
PROVIDERS: Family Provider Nurse Practitioner Family; PCP Nurse Practitioner Family; Visit Provider Nurse Practitioner Family
DX: D64.9 Anemia, unspecified (principal)
CPT/HCPCS: 36415; 82607; 82728; 82746; 83540

== ENCOUNTER 2025-01-24 01:23 | Emergency (ER) | payer MEDICARE, MEDICAID, SELFPAY ==
[2024-04-08 18:26] VITALS: BMI 38.5
[2025-01-24] VITALS (31 sets, daily range): BP systolic 107–191; BP diastolic 53–83; PULSE 72–96; RESP 12–32; TEMP 36.8–37; O2SAT 88–100; BMI 38.3
--- NOTE | 2025-01-24 02:52 | DI.RAD.S_ITS ---
PROCEDURE: XR CHEST 1V INDICATIONS: chest pain TECHNIQUE: One view of the chest was acquired. COMPARISON: [facility], CR, XR CHEST 1V, 04/08/2024, 12:56. [facility], CR, XR CHEST 1V, 03/05/2024, 12:19. FINDINGS AND IMPRESSION: Low lung volumes. No dense airspace disease or pleural effusions on this single view study. Cardiomediastinal contours are unchanged. Heart size is at the upper limit of normal. Degenerative osseous findings. No discrepancy from the preliminary report. Dictated by: Josue Gama M.D. on 01/24/2025 at 6:23 Approved by: Josue Gama M.D. on 01/24/2025 at 6:24
--- NOTE | 2025-01-24 02:53 | ED.ABDPAIN ---
HPI - Abdominal Pain General Chief Complaint: Abdominal Pain Stated Complaint: epigastric pain Time Seen by Provider: 01/24/25 02:47 Source: EMS Mode of arrival: EMS History of Present Illness HPI narrative: Patient is a 69-year-old male history of Rodriguez cirrhosis, hyperlipidemia, NSTEMI, essential tremor diabetes peripheral neuropathy peripheral vascular disease presenting to day with epigastric pain. He is feeling nauseous. He denies any chest pain or shortness of breath no vomiting. But does report some epigastric pain. He is sleepy but arousable. Related Data Home Medications ?Medication ?Instructions ?Recorded ?Confirmed furosemide 80 mg tablet 40 mg PO BID ##0 10/15/15 04/08/24 primidone 50 mg tablet 200 tab PO BID 02/07/18 04/09/24 multivitamin 1 cap PO DAILY 11/02/18 04/09/24 vitamin B complex 1 cap PO DAILY 11/02/18 04/09/24 pantoprazole 40 mg tablet,delayed 40 mg PO DAILY 01/16/22 04/08/24 release ferrous sulfate 325 mg (65 mg 325 mg PO BID 01/11/23 04/08/24 iron) tablet atorvastatin 20 mg tablet 20 mg PO DAILY 03/05/24 04/08/24 bisacodyl 5 mg tablet,delayed 5 mg PO PRN PRN Constipation 03/05/24 04/08/24 release docusate sodium 100 mg capsule 100 mg PO DAILY 03/05/24 04/08/24 fluticasone propionate 50 2 spray intranasal DAILY 03/05/24 04/08/24 mcg/actuation nasal spray,suspension metformin 1,000 mg PO BID 03/05/24 04/08/24 oxycodone 10 mg tablet 10 mg PO TID PRN Pain (Scale Score 03/05/24 04/08/24 4-6) semaglutide 0.25 mg or 0.5 mg (2 0.5 mg SUBCUT WEEKLY 03/05/24 04/08/24 mg/3 mL) subcutaneous pen injector (Ozempic) sennosides 8.6 mg tablet (senna) 17.2 mg PO DAILY 03/05/24 04/09/24 tamsulosin 0.4 mg capsule 0.4 mg PO DAILY 03/05/24 04/09/24 prednisolone acetate 1 % eye 1 drp EYE-BOTH DAILY 03/06/24 04/08/24 drops,suspension Lantus Solostar U-100 Insulin 40 units SUBCUT QAM 03/07/24 04/09/24 gabapentin 600 mg tablet 1,200 mg PO TID 04/08/24 04/08/24 Previous Rx's ?Medication ?Instructions ?Recorded acetaminophen 325 mg tablet 650 mg (2 x 325 mg) PO Q6H PRN 12/30/22 Fever/Mild Pain (1-3) #60 tabs lactulose 10 gram/15 mL oral 45 ml PO TID #1,200 mL 04/10/24 solution Allergies Allergy/AdvReac Type Severity Reaction Status Date / Time amoxicillin (From AUGMENTIN) AdvReac Mild UPSET Verified 01/24/25 01:22 STOMACH clavulanic acid (From AdvReac Mild UPSET Verified 01/24/25 01:22 AUGMENTIN) STOMACH Patient History Medical History History of non-ST elevation myocardial infarction (NSTEMI) AGATHA treated with BiPAP Severe muscle deconditioning Sedentary lifestyle Closed non-physeal fracture of proximal phalanx of great toe with malunion Chronic ulcer of right foot limited to breakdown of skin Insulin dependent diabetes mellitus Peripheral vascular disease Hypertension Depression Toe amputation status Peripheral autonomic neuropathy Sepsis (02/27/17) Cellulitis (02/27/17) Sleep apnea MRSA (methicillin resistant Staphylococcus aureus) (02/27/17) Visit for wound care Essential tremor Thrombocytopenia Morbid obesity Polypharmacy Diabetes Surgical History History of amputation of lesser toe of right foot Family History Father Cancer Congestive heart failure Mother Cancer Social History household members: none Smoking Status: Never smoker alcohol intake: never Smoking Status: Never smoker alcohol intake frequency: other Exam Initial Vital Signs Initial Vital Signs: Vital Signs Pulse Rate 73 01/24/25 01:19 Pulse Oximetry 98 01/24/25 01:19 GENERAL: Sleepy but arousable 61-year-old male and in no acute distress. HEENT: Head atraumatic,EOMI, pupils reactive, face symmetric, moist mucous membranes CARDIOVASCULAR: Regular rate and rhythm without murmurs, rubs or gallops. RESPIRATORY: Breath sounds equal bilaterally, no wheezes rales or rhonchi. ABDOMEN: Soft, minimal epigastric pain no guarding no rebound negative Howell's sign. EXTREMITIES: Normal range of motion, no clubbing or edema. Neurovascularly intact NEUROLOGICAL: Alert and oriented x4.Normal gait and speech. Cranial nerves II through XII grossly intact. SKIN: Warm, dry, no laceration, no petechiae, no rashes or lesions. Course Orders Ordered: Discontinued Medications Gabapentin (Gabapentin 600 Mg Tablet) 1,200 mg PO NOW ONE Stop: 01/24/25 10:22 Last Admin: 01/24/25 10:35 Dose: 1,200 mg Documented By: TAYLA Piperacillin Sod/Tazobactam (Sod 4.5 gm/ Sodium Chloride) 100 mls @ 200 mls/hr IV NOW ONE Stop: 01/24/25 14:59 Last Infusion: 01/24/25 16:21 Dose: Infused Documented By: Admin: 01/24/25 15:27 Dose: 200 mls/hr Documented By: NIR Morphine Sulfate (Morphine 4 Mg/Ml Inj) 4 mg IV NOW ONE Stop: 01/24/25 10:08 Last Admin: 01/24/25 10:12 Dose: 4 mg Documented By: VERONICA Morphine Sulfate (Morphine 4 Mg/Ml Inj) 4 mg IV NOW ONE Stop: 01/24/25 15:04 Last Admin: 01/24/25 15:26 Dose: 4 mg Documented By: NIR Ondansetron HCl (Ondansetron 4 Mg/2 Ml Inj) 4 mg IV NOW ONE Stop: 01/24/25 10:08 Last Admin: 01/24/25 10:12 Dose: 4 mg Documented By: YI Vital Signs Vital signs: Vital Signs - 8 hr 01/24/25 01:19 01/24/25 01:21 01/24/25 01:21 Temperature Pulse Rate 73 74 Respiratory Rate Blood Pressure 134/62 Pulse Oximetry 98 97 Oxygen Delivery Method 01/24/25 01:23 01/24/25 01:30 01/24/25 01:30 Temperature 98.6 F Pulse Rate 76 77 Respiratory Rate 16 Blood Pressure 134/62 126/58 L Pulse Oximetry 98 95 Oxygen Delivery Method Room Air 01/24/25 02:00 01/24/25 02:00 01/24/25 02:30 Temperature Pulse Rate 78 77 Respiratory Rate Blood Pressure 115/57 L Pulse Oximetry 95 95 Oxygen Delivery Method 01/24/25 02:30 01/24/25 03:00 01/24/25 03:00 Temperature Pulse Rate 96 H Respiratory Rate Blood Pressure 121/58 L 107/53 L Pulse Oximetry 97 Oxygen Delivery Method 01/24/25 03:30 01/24/25 03:30 Temperature Pulse Rate 77 Respiratory Rate Blood Pressure 116/56 L Pulse Oximetry 93 Oxygen Delivery Method Room Air MDM - Abdominal Pain Lab Data 01/24/25 03:37 01/24/25 03:37 Labs: Lab Results 01/24/25 01/24/25 01/24/25 Range/Units 03:35 03:37 07:10 WBC 7.8 (4.5-11.0) X10^3/uL RBC 3.11 L (4.5-5.9) X10^6/uL Hgb 9.9 L (13.5-17.5) g/dL Hct 28.5 L (41-53) % MCV 91.7 (80-100) fL MCH 31.8 (26-34) PG MCHC 34.7 (30-36) % RDW 14.3 (11.6-14.8) % Plt Count 149 L (150-400) X10^3/uL Neut % (Auto) 65.8 (50-75) % Lymph % (Auto) 20.8 L (25-40) % Arthur % (Auto) 6.9 (3-14) % Eos % (Auto) 5.9 H (2-4) % Baso % (Auto) 0.6 (0-2) % Neut # (Auto) 5100 (3683-0868) /uL Lymph # (Auto) 1600 (8167-6275) /uL Arthur # (Auto) 500 (0-900) /uL Eos # (Auto) 500 H (0-450) /uL Baso # (Auto) 0 (0-100) /uL PT 12.8 H (9.4-12.5) SECONDS INR 1.1 (0.9-1.3) APTT 28 (25.1-36.5) SECONDS Sodium 141 (137-145) mmol/L Potassium 4.7 (3.4-5.1) mmol/L Chloride 105 (98-107) mmol/L Carbon Dioxide 28 (22-32) mmol/L BUN 27 H (9-20) mg/dL Creatinine 0.90 (0.66-1.25) mg/dL Estimated GFR > 60 (>60) mL/min BUN/Creatinine Ratio 30.0 H (6-22) Glucose 145 H (70-99) mg/dL POC Whole Bld Glucose (70-99) mg/dL Lactate 2.2 H (0.7-2.1) mmol/L Calcium 8.9 (8.4-10.2) mg/dL Magnesium 1.6 (1.6-2.3) mg/dL Total Bilirubin 1.9 H (0.2-1.3) mg/dL AST 255 H (17-59) IU/L ALT 194 H (<50) IU/L Alkaline Phosphatase 104 (38-126) U/L Ammonia 74 H (9-30) umol/L Troponin I 0.014 (0.01-0.034) ng/mL NT-Pro-B Natriuret Pep 97 (<125) pg/mL Total Protein 6.2 L (6.3-8.2) g/dL Albumin 3.6 (3.5-5.0) g/dL Globulin 2.6 (1.7-4.1) g/dL Albumin/Globulin Ratio 1.4 (1.0-2.8) Lipase 106 (23-300) U/L Ur Bilirubin Confirm (Negative) Urine RBC (0-5/HPF) Urine WBC (0-5/HPF) Ur Squamous Epith Cells (0-5/HPF) Urine Bacteria (None) Ur Culture Indicated? Vol Urine Centrifuged 01/24/25 01/24/25 01/24/25 Range/Units 07:40 09:10 16:40 WBC (4.5-11.0) X10^3/uL RBC (4.5-5.9) X10^6/uL Hgb (13.5-17.5) g/dL Hct (41-53) % MCV (80-100) fL MCH (26-34) PG MCHC (30-36) % RDW (11.6-14.8) % Plt Count (150-400) X10^3/uL Neut % (Auto) (50-75) % Lymph % (Auto) (25-40) % Arthur % (Auto) (3-14) % Eos % (Auto) (2-4) % Baso % (Auto) (0-2) % Neut # (Auto) (0087-9838) /uL Lymph # (Auto) (9863-8302) /uL Arthur # (Auto) (0-900) /uL Eos # (Auto) (0-450) /uL Baso # (Auto) (0-100) /uL PT (9.4-12.5) SECONDS INR (0.9-1.3) APTT (25.1-36.5) SECONDS Sodium (137-145) mmol/L Potassium (3.4-5.1) mmol/L Chloride (98-107) mmol/L Carbon Dioxide (22-32) mmol/L BUN (9-20) mg/dL Creatinine (0.66-1.25) mg/dL Estimated GFR (>60) mL/min BUN/Creatinine Ratio (6-22) Glucose (70-99) mg/dL POC Whole Bld Glucose 137 H (70-99) mg/dL Lactate 1.6 (0.7-2.1) mmol/L Calcium (8.4-10.2) mg/dL Magnesium (1.6-2.3) mg/dL Total Bilirubin (0.2-1.3) mg/dL AST (17-59) IU/L ALT (<50) IU/L Alkaline Phosphatase (38-126) U/L Ammonia (9-30) umol/L Troponin I (0.01-0.034) ng/mL NT-Pro-B Natriuret Pep (<125) pg/mL Total Protein (6.3-8.2) g/dL Albumin (3.5-5.0) g/dL Globulin (1.7-4.1) g/dL Albumin/Globulin Ratio (1.0-2.8) Lipase (23-300) U/L Ur Bilirubin Confirm Positive H (Negative) Urine RBC 1-5/hpf (0-5/HPF) Urine WBC 10-30/hpf H (0-5/HPF) Ur Squamous Epith Cells 0-1 /hpf (0-5/HPF) Urine Bacteria Occasional (0-1) (None) Ur Culture Indicated? Cult not indicated Vol Urine Centrifuged 10ml (spun) Point of care testing: Urine Dip Bedside Urine Glucose Negative Bedside Urine Bilirubin + 1 Bedside Urine Ketone - Negative Urine Specific [place] 1.010 Bedside Urine Occult Blood - Negative Bedside Urine pH 6.0 Bedside Urine Protein - Negative Bedside Urine Urobilinogen +/- 1mg Bedside Urine Nitrite - Negative Bedside Urine Leukocytes + 70 Esterase Imaging Data Chest x-ray: Radiologist's Impression: Preliminary report no acute finding ECG Data Attestation: I personally reviewed and interpreted this ECG as follows: Interpretation: Normal sinus rhythm rate 77 ID interval 190 QRS [address] changes MDM Narrative Medical decision making narrative: MDM CC: Epigastric pain Complicating co-morbidities: Diabetes hypertension hyperlipidemia NSTEMI Data collected from: Patient Medical records reviewed: Records reviewed patient was admitted April 08 through the with hepatic encephalopathy. During that admission he had an ammonia of 93 and he was admitted for lethargy and confusion. He apparently does not take his lactulose consistently. Differential considered: Acute coronary syndrome cholelithiasis cholecystitis hepatic encephalopathy see Exam documented above, pertinent findings include: Drowsy but arousable tender epigastric positive Howell's sign Lab Test results independently reviewed as above. Pertinent findings: CBC no leukocytosis anemia stable with hemoglobin 9.9 hematocrit 28.5 platelets are 149 CMP electrolytes are within normal limits creatinine 0.9 glucose 145 Bilirubin elevated at 1.9 AST 225 ALT 194 Independently reviewed EKG as above Sinus rhythm no ischemia Imaging studies independently reviewed: Chest x-ray no acute cardiopulmonary process Consultations: [ ] Treatments: [ ] Re-evaluations: Patient continues to be sleeping Discussion: Patient is 69-year-old male presenting today with epigastric pain. He does seem to be a little bit more confused and sleeping quite a bit. Ammonia level is added. Bilirubin liver enzymes were found to be elevated which they have not previously been. Right upper quadrant ultrasound and CT also pending. Remains sleepy but arousable Signed out to Dr. Allen for further dispostion and treatment. Discharge Plan Departure Patient Disposition: [facility] Clinical Impression: Dizziness Prescriptions: No Action furosemide 80 MG tablet 40 mg PO BID Qty: 0 Rx Instructions: 40 mg twice a day multivitamin Capsule 1 cap PO DAILY Rx Instructions: 2 gummys in am vitamin B complex Capsule 1 cap PO DAILY ferrous sulfate 325 mg (65 mg iron) Tablet 325 mg PO BID Rx Instructions: twice a day primidone 50 mg Tablet 200 tab PO BID Rx Instructions: 200mg two times a day for seizure prevention pantoprazole 40 mg tablet,delayed release (DR/EC) 40 mg PO DAILY Rx Instructions: in am acetaminophen 325 mg Tablet 650 mg PO Q6H PRN (Reason: Fever/Mild Pain (1-3)) Qty: 60 0RF atorvastatin 20 mg tablet 20 mg PO DAILY tamsulosin 0.4 mg capsule 0.4 mg PO DAILY bisacodyl 5 mg tablet,delayed release (DR/EC) 5 mg PO PRN PRN (Reason: Constipation) sennosides [senna] 8.6 mg tablet 17.2 mg PO DAILY oxycodone 10 mg tablet 10 mg PO TID PRN (Reason: Pain (Scale Score 4-6)) Rx Instructions: 1 tab every fours docusate sodium 100 mg Capsule 100 mg PO DAILY fluticasone propionate 50 mcg/actuation spray,suspension 2 spray intranasal DAILY Rx Instructions: 2 spray in both nostrils in evening Ozempic 0.25 mg or 0.5 mg (2 mg/3 mL) pen injector 0.5 mg SUBCUT WEEKLY Patient Comments: [NO ORIGINAL SIG] Rx Instructions: every monday metformin 500 mg 1,000 mg PO BID Rx Instructions: 1000 mg two times a day prednisolone acetate 1 % drops,suspension 1 drp EYE-BOTH DAILY Lantus Solostar U-100 Insulin 100 UNIT/1 ML pen injector 40 units SUBCUT QAM gabapentin 600 mg tablet 1,200 mg PO TID Patient Comments: [NO ORIGINAL SIG] lactulose 10 gram/15 mL solution 45 ml PO TID Qty: 1200 0RF Referrals: Barbara Rushing ARNP [Primary Care Provider, Medical]
--- NOTE | 2025-01-24 03:05 | EKG_ITS ---
[address] [id number] [address] [address] Test Date: 2025-01-24 Pat Name: Josue Mesa Department: [facility] Room: Gender: Male Newsroom Intern: LESLEE : 1955 Requested By: Order Number: [id number] Reading MD: Tex Ambrose Measurements Intervals [place] Rate: 77 P: 22 LA: 190 QRS: 82 QRSD: 84 T: 28 QT: 382 QTc: 432 Interpretive Statements Normal sinus rhythm Electronically Signed On 01-25-2025 13:31:03 PST by Tex Ambrose
[2025-01-24 03:54] LABS: Add Manual Diff / Slide Review NO; Hematocrit 28.5 % (41-53); Hemoglobin 9.9 g/dL (13.5-17.5); Lymphocytes Absolute Auto 1600 /uL (1100-4500); Mean Corpuscular HGB Conc 34.7 % (30-36); Mean Corpuscular Hemoglobin 31.8 PG (26-34); Mean Corpuscular Volume 91.7 fL (80-100); Platelet Count 149 X10^3/uL (150-400)
[2025-01-24 04:04] LABS: Alanine Aminotransferase 194 IU/L (<50); Albumin 3.6 g/dL (3.5-5.0); Albumin Globulin Ratio 1.4 (1.0-2.8); Alkaline Phosphatase 104 U/L (38-126); Blood Urea Nitrogen 27 mg/dL (9-20); Calcium 8.9 mg/dL (8.4-10.2); Carbon Dioxide 28 mmol/L (22-32); Chloride 105 mmol/L (98-107); Estimated Glomerular Filt Rate > 60 mL/min (>60); Globulin 2.6 g/dL (1.7-4.1); Glucose 145 mg/dL (70-99); HEMOLYSIS < 15 (0-50); Lipase 106 U/L (23-300); Magnesium 1.6 mg/dL (1.6-2.3); Potassium 4.7 mmol/L (3.4-5.1); Sodium 141 mmol/L (137-145); Total Protein 6.2 g/dL (6.3-8.2)
[2025-01-24 04:16] LABS: NT-proBNP (BNP-Adult 18+) 97 pg/mL (<125); Troponin I 0.014 ng/mL (0.01-0.034)
--- NOTE | 2025-01-24 05:29 | DI.CT.S_ITS ---
PROCEDURE: CT ABDOMEN PELVIS W CON INDICATIONS: elevated bili TECHNIQUE: After the administration of intravenous contrast, axial sections acquired from the lung bases to the pubic symphysis. Coronal and sagittal reformats were performed. For radiation dose reduction, the following was used: automated exposure control, adjustment of mA and/or kV according to patient size. COMPARISON: [facility], CT, CT ABDOMEN PELVIS W CON, 01/11/2023, 15:44. FINDINGS: Quality: Diagnostic. Lower Chest: Unremarkable. Abdomen: Liver: Micronodular liver contour. No discrete liver lesion.. Gallbladder and bile ducts: Gallbladder wall thickening. Common bile duct 8 mm. No visible stone.. Pancreas: Atrophy and fatty infiltration.. Spleen: Mild splenomegaly. Adrenal Glands: Unremarkable. Kidneys and Ureters: 9 mm nonobstructing calculus in the lower pole of left kidney. Additional 6 mm calculus nonobstructing in the midpole of left kidney. Additional smaller nonobstructing calculi bilaterally. No hydronephrosis. Simple renal cyst on the right. Stomach: Unremarkable. Bowel: No abnormal dilation. No wall thickening. Normal appendix. Peritoneum: No free fluid. No free air. Pelvis: Reproductive: Unremarkable. Bladder: Unremarkable. Other: Lymphatic: Enlarged periportal lymph nodes. Vasculature: No aortic aneurysm. Mild atherosclerotic plaques of the aorta. Large portosystemic collateral vessels in the right upper quadrant Abdominal wall: Intact. Bones: No aggressive osseous lesion. Severe degenerative changes of the lumbar spine. IMPRESSION: Cirrhotic liver morphology with large portosystemic collateral vessels. Gallbladder wall thickening and biliary duct dilation with no visible obstructing lesion. Nonobstructing renal calculi. Dictated by: Octavio Waters M.D. on 01/24/2025 at 8:26 Approved by: Octavio Waters M.D. on 01/24/2025 at 8:34
--- NOTE | 2025-01-24 05:29 | DI.US.S_ITS ---
PROCEDURE: US ABDOMEN LIMITED INDICATIONS: ruq elevated bili and liver enzymes TECHNIQUE: Real-time scanning was performed of the abdominal and retroperitoneal organs, with image documentation. COMPARISON: [facility], US, US ABDOMEN LIMITED, 01/11/2023, 14:48. FINDINGS: Liver: Cirrhotic liver. Liver parenchyma is heterogeneous and hyperechoic. No mass or intrahepatic biliary dilation. Recanalized patent umbilical vein. Reversal of main portal vein flow going away from the liver. Pulsatile portal vein flow. Gallbladder: Sludge and gallstones noted. Gallbladder wall thickening. Per report, positive sonographic Howell sign. Small volume pericholecystic fluid. Biliary ducts: Intrahepatic bile ducts are non-dilated. Extrahepatic bile duct caliber measures 6 mm. Normal is 6-7 mm or less in diameter, or 10 mm or less post-cholecystectomy. Pancreas: Visualized portions of the pancreas are sonographically normal. Miscellaneous: No free abdominal fluid. IMPRESSION: Gallbladder wall thickening with sludge and positive sonographic Howell sign. Small volume pericholecystic fluid. Imaging findings are nonspecific given the cirrhosis. Acute cholecystitis remains on the differential. Patient may benefit from nuclear medicine hepatobiliary study. Normal caliber CBD. Cirrhotic liver. Reversal of portal vein flow in recanalized umbilical veins in keeping with portal hypertension. Agree with preliminary interpretation by [facility]. A Dictated by: Mindy Ambrose M.D. on 01/24/2025 at 8:16 Approved by: Mindy Ambrose M.D. on 01/24/2025 at 8:21
[2025-01-24 07:19] LABS: INR 1.1 (0.9-1.3); Prothrombin Time 12.8 SECONDS (9.4-12.5)
[2025-01-24 07:22] LABS: PTT Partial Thromboplastin Tim 28 SECONDS (25.1-36.5)
[2025-01-24 07:34] LABS: Ammonia (NH3) 74 umol/L (9-30); Lactate (Lactic Acid) 2.2 mmol/L (0.7-2.1)
--- NOTE | 2025-01-24 07:53 | PC.NURSE ---
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 They were given update as far as we have results. Advised them after all results have been completed we will call [facility] for report. Patient is Alert & Oriented, uses FWW for ambulation. able to ambulate to bathroom and back to stretcher independently with FWW.
[2025-01-24 08:13] LABS: Ictotest Urine Positive (Negative)
[2025-01-24 08:14] LABS: Culture Indicated Urine Cult Not Indicated
[2025-01-24 08:50] LABS: Reflexed Lactate in 2 Hours Y
[2025-01-24 09:27] LABS: Lactate 2HR (Lactic Acid Rflx) 1.6 mmol/L (0.7-2.1)
[2025-01-24] MEDS: ONDANSETRON 4 MG/2 ML INJ IV (10:12)
[2025-01-24] MEDS: MORPHINE 4 MG/ML INJ IV ×2 (10:12→15:26)
[2025-01-24] MEDS: GABAPENTIN 600 MG TABLET 1200 MG PO (10:35)
[2025-01-24] MEDS: PIPERACILLIN/TAZO 4.5 GM in SODIUM CHLORIDE 0.9% 100 ML IV (15:27)
--- NOTE | 2025-01-24 18:00 | PC.NURSE ---
Report called to ESTELA Iniguez @ [phone].
== END 2025-01-24 16:40 | disposition short-term general hospital (02) ==
PROVIDERS: Emergency Medicine; Emergency Provider Emergency Medicine; Family Provider Nurse Practitioner Family; PCP Nurse Practitioner Family
DX: R42 Dizziness and giddiness (principal); R10.13 Epigastric pain; I25.2 Old myocardial infarction; I10 Essential (primary) hypertension; R11.0 Nausea
CPT/HCPCS: 36415; 71045; 74177; 76705; 80053; 81003; 81015; 82140; 82962; 83605; 83690; 83735; 83880; 84484; 85025; 85610; 85730; 87077; 87086; 93005; 96365; 96375; 96376; 99284; J2272; J2405; J2543; J7050; Q9967

== ENCOUNTER → 2025-02-05 06:33 | Outpatient (ROUT) | payer MEDICARE, MEDICAID, SELFPAY ==
[2024-04-08 18:26] VITALS: BMI 38.5
[2025-02-05 09:56] LABS: Alanine Aminotransferase 32 IU/L (<50); Albumin 3.2 g/dL (3.5-5.0); Albumin Globulin Ratio 1.2 (1.0-2.8); Alkaline Phosphatase 90 U/L (38-126); Blood Urea Nitrogen 20 mg/dL (9-20); Calcium 9.0 mg/dL (8.4-10.2); Carbon Dioxide 33 mmol/L (22-32); Chloride 103 mmol/L (98-107); Estimated Glomerular Filt Rate > 60 mL/min (>60); Globulin 2.7 g/dL (1.7-4.1); Glucose 128 mg/dL (70-99); HEMOLYSIS < 15 (0-50); Potassium 4.6 mmol/L (3.4-5.1); Sodium 138 mmol/L (137-145); Total Protein 5.9 g/dL (6.3-8.2)
== END ==
LOC: LAB 06:35
PROVIDERS: Family Provider Nurse Practitioner Family; PCP Nurse Practitioner Family; Visit Provider Registered Nurse
DX: R74.01 Elevation of levels of liver transaminase levels (principal)
CPT/HCPCS: 36415; 80053